=== PATIENT | female | born 1935 | race Caucasian/White ===

== ENCOUNTER 2021-09-04 15:21 | Outpatient (CLI) | payer MEDICARE, SELFPAY ==
[2021-09-04 15:56] LABS: Hematocrit 39.3 % (33.0-51.0); Hemoglobin* 12.7 gm/dL (12.0-16.0); Mean Corpuscular HGB Conc 32 gm/dL (32-36); Mean Corpuscular Hemoglobin 29 pg (26-34); Mean Corpuscular Volume 90 fL (80-100); Platelet Count* 217 K/uL (140-440); Red Blood Count 4.38 m/uL (4.00-5.20); Slide Review Reflex No; White Blood Count* 5.68 K/uL (4.50-11.00)
[2021-09-04 16:09] LABS: Blood Urea Nitrogen* 17 mg/dl (8-26); Carbon Dioxide* 28 mmol/L (20-32); Chloride* 100 mmol/L (98-109); Potassium* 3.7 mmol/L (3.5-4.9); Sodium* 141 mmol/L (138-146)
[2021-09-04 16:10] LABS: Creatinine* 0.6 mg/dl (0.6-1.3); Glucose* 91 mg/dl (60-115); Ionized Calcium* 1.25 mmol/L (1.11-1.33)
== END 2021-09-04 15:22 | disposition home or self-care (01) ==
PROVIDERS: PCP Emergency Medicine; Visit Provider Family Medicine
DX: M54.50 Low back pain, unspecified (principal); Z79.899 Other long term (current) drug therapy; W19.XXXA Unspecified fall, initial encounter
CPT/HCPCS: 80048; 85027

== ENCOUNTER 2021-11-06 14:11 | Outpatient (CLI) | payer MEDICARE, SELFPAY ==
[2021-11-06 14:24] LABS: Chloride* 100 mmol/L (96-114)
[2021-11-06 14:25] LABS: Albumin* 4.1 g/dL (3.3-5.0); Sodium* 138 mmol/L (135-149)
[2021-11-06 14:26] LABS: Potassium* 3.7 mmol/L (3.6-5.1)
[2021-11-06 14:28] LABS: Alkaline Phosphatase* 98 U/L (40-150); Aspartate Amino Transferase* 23 U/L (12-35); Bilirubin Total* 0.8 mg/dL (0.1-1.5); Blood Urea Nitrogen* 17 mg/dL (7-30); Carbon Dioxide* 30 mmol/L (20-32); Cholesterol* 138 mg/dL (90-199); Creatinine* 0.7 mg/dL (0.5-1.5); Estimated Glomerular Filt Rate 85 ml/min; Glucose* 111 mg/dL (60-115); Total Protein* 7.1 g/dL (6.0-8.3)
[2021-11-06 14:29] LABS: Alanine Aminotransferase* 16 U/L (4-35); Calcium* 9.2 mg/dL (8.4-10.6); HDL Cholesterol* 69 mg/dL (>=50); LDL Cholesterol Calculated 57 mg/dL (<100); Triglycerides* 60 mg/dL (40-149)
[2021-11-06 15:17] LABS: Vitamin B12* 735 pg/mL (243-894)
== END 2021-11-06 14:12 | disposition home or self-care (01) ==
PROVIDERS: PCP Emergency Medicine; Visit Provider Emergency Medicine
DX: I10 Essential (primary) hypertension (principal); E11.9 Type 2 diabetes mellitus without complications; E78.5 Hyperlipidemia, unspecified; R32 Unspecified urinary incontinence; F32.9 Major depressive disorder, single episode, unspecified
CPT/HCPCS: 80053; 80061; 82607; 84443

== ENCOUNTER 2021-11-14 14:23 | Outpatient (CLI) | payer MEDICARE, SELFPAY ==
[2021-11-14 21:58] LABS: Microalbumin Urine 6 mg/dL
[2021-11-14 21:59] LABS: Creatinine Urine 99.9 mg/dL; Microalbumin Creatinine Ratio 60 mg/g (0-30)
== END 2021-11-14 14:24 | disposition home or self-care (01) ==
LOC: LKVREF 14:23
PROVIDERS: PCP Emergency Medicine; Visit Provider Emergency Medicine
DX: E11.9 Type 2 diabetes mellitus without complications (principal)
CPT/HCPCS: 82043; 82570

== ENCOUNTER 2022-01-22 13:28 | Emergency (ER) | payer MEDICARE, SELFPAY ==
[2022-01-22 13:36] VITALS: BP 191/96; PULSE 77; RESP 20; TEMP 36.4; O2SAT 97; BMI 37.6
--- NOTE | 2022-01-22 14:13 | CRLHL7_ITS ---
For Patients: As a result of the Cures Act, medical imaging exams and procedure reports are released immediately into your electronic medical record. You may view this report before your referring provider. If you have questions, please contact your health care provider. INDICATION: Pain in the left wrist. TECHNIQUE: Left wrist 3 view. COMPARISON: None. FINDINGS: No acute fracture or dislocation. Advanced degenerative changes of the 1st CMC joint and triscaphe. TFCC chondrocalcinosis. Vascular calcifications. Soft tissue swelling about the wrist. IMPRESSION: Soft tissue swelling about the wrist. No other acute findings. Dictated by Nina Nicolas MD @ 01/22/2022 3:27:00 PM (Electronically Signed)
--- NOTE | 2022-01-22 14:18 | ED_ITS ---
HPI - Extremity Injury (Upper) General Date Seen: 01/22/22 Chief Complaint: Extremity Pain/Injury, Upper Stated Complaint: Infection/swelling in left arm Time Seen by Provider: 01/22/22 13:43 Source: patient and family Mode of arrival: ambulatory Limitations: no limitations History of Present Illness HPI narrative: Patient is a leena 87-year-old female who presents here for evaluation of left wrist pain, the risk became sore and painful this morning when she woke up, she does remember banging it falling on it yesterday. She is brought in by her daughter, for evaluation they were worried about possible cellulitis but absence of fevers chills, or specific portal of entry on her left wrist, she denies falling on her left wrist or any sort injury, she is right-handed. Denies any numbness tingling weakness but any movement of the wrist causes her pain, she has no history of gout in the past, there is a history of some mild memory disturbance MD complaint: injury to: left Onset (ago): minute(s) Associated symptoms: denies other symptoms Related Data Home Medications Medication Instructions Recorded Confirmed coenzyme Q10 300 mg capsule 300 mg PO DAILY 11/01/21 01/22/22 cyanocobalamin (vitamin B-12) 500 500 mcg PO DAILY 11/01/21 01/22/22 mcg tablet vibegron 75 mg tablet (Gemtesa) 75 mg PO QDAY 11/01/21 01/22/22 Previous Rx's Medication Instructions Recorded albuterol sulfate 90 mcg/actuation See Rx Instructions .Route 09/11/21 aerosol inhaler .COMPLEX #36 grams fluoxetine 10 mg capsule 10 mg PO QDAY #90 caps 11/14/21 fluticasone fur. 200 mcg-umeclid 1 inh inhalation Q24H #60 ea 11/14/21 62.5 mcg-vilant 25 mcg inhalat.powder (Trelegy Ellipta) hydrochlorothiazide 25 mg tablet 25 mg PO QAM #90 tabs 11/14/21 insulin glargine 100 unit/mL (3 20 unit (0.2 mL) subcut .HS #15 mL 11/14/21 mL) subcutaneous pen (Lantus Solostar U-100 Insulin) irbesartan 300 mg tablet 150 mg PO BID #45 tabs 11/14/21 donepezil 5 mg tablet 5 mg PO QDAY #90 tabs 12/12/21 Allergies Allergy/AdvReac Type Severity Reaction Status Date / Time amlodipine Allergy Severe Rash Verified 01/22/22 13:42 azithromycin Allergy Severe Limb pain, Verified 01/22/22 13:42 diarrhea furosemide Allergy Severe Hives Verified 01/22/22 13:42 insulin detemir Allergy Severe Hives Verified 01/22/22 13:42 metoprolol Allergy Severe Shortness Verified 01/22/22 13:42 of breath, chest pain, low pulse rate sitagliptin Allergy Severe Lost some Verified 01/22/22 13:42 sight in left eye exenatide Allergy Intermediate Sore Verified 01/22/22 13:42 throat, diarrhea, cough, headache levofloxacin Allergy Intermediate Bruising Verified 01/22/22 13:42 clopidogrel Allergy Mild Edema Verified 01/22/22 13:42 losartan Allergy Unknown Heart Verified 01/22/22 13:42 palpitations, shortness of breath penicillin V Allergy Unknown Verified 01/22/22 13:42 lisinopril AdvReac Severe Headaches, Verified 01/22/22 13:42 heart palpitations, muscle aches pioglitazone AdvReac Severe Hip and Verified 01/22/22 13:42 arm pain simvastatin AdvReac Unknown Fatigued Verified 01/22/22 13:42 Review of Systems Status of ROS: Reports: 6 or more systems reviewed and unremarkable except as noted in History and below PFSH PFS Medical History Depression Diabetes mellitus Diabetes mellitus, controlled Edema Encounter for medication review Encounter for screening for severe acute respiratory syndrome coronavirus 2 (SARS-CoV-2) infection Hyperlipidemia Thalamic stroke Unintentional weight loss Surgical History History of cholecystectomy (09/26/11) History of colonoscopy History of partial surgical removal of colon (09/26/11) 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 (09/26/11) Status post total replacement of right shoulder Family History Mother Family history of stroke or transient ischemic attack in mother Social History Narrative: advance directive in chart- 01/25/15 former cigarette smoker Smoking Status: Former smoker Do you use any of these nicotine containing products: None How often do you have a drink containing alcohol: never AUDIT-C Alcohol total score: 0 Non-prescribed substance use: denies use Little interest or pleasure in doing things: several days Feeling down, depressed, or hopeless: more than half the days Exam Narrative: Exam Narrative: On examination the patient is seen in room 1 in a wheelchair she is in no apparent distress there is bruising noted over the dorsum and the radial area of left wrist. She has tenderness with any sort of motion it is also swollen, and there seems to be ecchymosis, do not detect any warmth, suggested of cellulitis, or any portal of entry. L both moves for full range of motion, supination pronation flexion extension and she is able to move her fingers. Although it does cause her some discomfort. Const: Vital Signs, click to edit/add: Vital Signs - 24 hr 01/22/22 13:36 Temperature 97.6 F Pulse Rate [Right Pulse Oximeter] 77 Respiratory Rate 20 Blood Pressure [Ri ght Upper Arm] 191/96 H Pulse Oximetry 97 Oxygen Delivery Me thod Room Air Documenting provider has reviewed patient's vital signs: yes Course Vital Signs Vital signs: Initial Vital Signs Temperature 97.6 F 01/22/22 13:36 Temperature Source Temporal Artery Scan 01/22/22 13:36 Pulse Rate 77 01/22/22 13:36 Pulse Rhythm 01/22/22 13:36 Respiratory Rate 20 01/22/22 13:36 Blood Pressure 191/96 H 01/22/22 13:36 Blood Pressure Mean 127 01/22/22 13:36 Blood Pressure Position Sitting 01/22/22 13:36 Pulse Oximetry 97 01/22/22 13:36 Oxygen Delivery Method 01/22/22 13:36 Vital Signs Temperature 97.6 F 01/22/22 13:36 Pulse Rate 77 01/22/22 13:36 Respiratory Rate 20 01/22/22 13:36 Blood Pressure 191/96 H 01/22/22 13:36 Pulse Oximetry 97 01/22/22 13:36 Oxygen Delivery Method 01/22/22 13:36 Temperature 97.6 F 01/22/22 13:36 Pulse Rate 77 01/22/22 13:36 Respiratory Rate 20 01/22/22 13:36 Blood Pressure 191/96 H 01/22/22 13:36 Pulse Oximetry 97 01/22/22 13:36 Oxygen Delivery Method 01/22/22 13:36 MDM - Extremity Injury (Upper) MDM Narrative Medical decision making narrative: Consideration of multiple diagnosis including count, infection, fall hematoma, fracture, I suspect that this is secondary to an injury, but could not rule out other possibilities given her normal white count absence of fever, I think this is more likely secondary to injury. We will put her in a wrist splint, and I have given explicit instructions to the family, bring her back if things worsen. Medical Records Attestation: I reviewed the patient's medical records. Lab Data Attestation: I reviewed the patient's lab results. Labs: Lab Results 01/22/22 01/22/22 Range/Units 14:38 14:38 WBC 7.32 (4.50-11.00) K/uL RBC 4.60 (4.00-5.20) m/uL Hgb 14.0 (12.0-16.0) gm/dL Hct 43.0 (33.0-51.0) % MCV 94 (80-100) fL MCH 30 (26-34) pg MCHC 33 (32-36) gm/dL RDW Coeff of Brock 14.9 (11.5-15.5) % Plt Count 224 (140-440) K/uL Neut % (Auto) 76.1 H (42.0-72.0) % Lymph % (Auto) 13.4 L (20-44) % [place] % (Auto) 8.7 (0.0-11.0) % Eos % (Auto) 1.0 (0.0-7.0) % Baso % (Auto) 0.1 (0.0-3.0) % Neut # (Auto) 5.60 (1.7-7.0) K/uL Lymph # (Auto) 1.00 (0.90-2.90) K/uL [place] # (Auto) 0.60 (0.00-0.90) K/UL Eos # (Auto) 0.10 (0.00-0.50) K/uL Baso # (Auto) 0.00 (0.00-0.30) K/uL Abs Immat Gran (auto) 0.10 (0.00-0.30) K/uL Neutrophils % (Manual) Not Reportable Lymphocytes % (Manual) Not Reportable Monocytes % (Manual) Not Reportable Imm/Tot Granulo (auto) 0.7 % Abs Neuts (Manual) Not Reportable Lymphocytes # (Manual) Not Reportable Monocytes # (Manual) Not Reportable Diff Slide Review Req Man Differential (Acceptable) Sodium 139 (135-149) mmol/L Potassium 4.4 (3.6-5.1) mmol/L Chloride 99 (96-114) mmol/L Carbon Dioxide 33 H (20-32) mmol/L BUN 12 (7-30) mg/dL Creatinine 0.5 (0.5-1.5) mg/dL Estimated Creat Clear 39.27 Estimated GFR 91 ml/min Glucose 111 (60-115) mg/dL Calcium 9.5 (8.4-10.6) mg/dL C-Reactive Protein 1.3 H (0.5-1.0) mg/dL Imaging Data Wrist x-ray: Attestation: I have reviewed the pertinent imaging results. My impression: Wrist x-ray shows osteopenia no could fracture Radiologist's impression: No acute fracture Discharge Plan Discharge Clinical Impression: Left wrist pain Patient Disposition: Home w/ Parent or Adult Condition: Stable Instructions: Arm Pain (ED) Additional Instructions: As I discussed with you this is most consistent with a contusion, this could be early cellulitis in you need to be cognizant of this if the redness worsens in comes up your arm, or develops a fever chills. Then please come back. I would use acetaminophen 1 g 3 times a day use the splint, if this is gout, it should slowly improve, x-rays were negative for fracture which is good. Prescriptions: No Action fluoxetine 10 mg capsule 10 mg PO QDAY Qty: 90 1RF hydrochlorothiazide 25 mg tablet 25 mg PO QAM Qty: 90 1RF irbesartan 300 mg tablet 150 mg PO BID Qty: 45 1RF insulin glargine [Lantus Solostar U-100 Insulin] 100 unit/mL (3 mL) insulin pen 20 unit subcut .HS Qty: 15 6RF Trelegy Ellipta 200-62.5-25 mcg blister with device 1 inh inhalation Q24H Qty: 60 2RF coenzyme Q10 300 mg capsule 300 mg PO DAILY cyanocobalamin (vitamin B-12) 500 mcg tablet 500 mcg PO DAILY Gemtesa 75 mg tablet 75 mg PO QDAY albuterol sulfate 90 mcg/actuation HFA aerosol inhaler See Rx Instructions .ROUTE .COMPLEX Qty: 36 2RF Dose Instruction: INHALE 2 PUFFS BY MOUTH EVERY 4 HOURS NEEDED FOR WHEEZING AND DIFFICULT BREATHING Rx Instructions: INHALE 2 PUFFS BY MOUTH EVERY 4 HOURS NEEDED FOR WHEEZING AND DIFFICULT BREATHING donepezil 5 mg tablet 5 mg PO QDAY Qty: 90 3RF Follow Up/Referrals: Darlene Mendoza MD [Primary Care Provider] - Stand Alone Forms: [employer] Info Instructions
[2022-01-22] MEDS: ACETAMINOPHEN 500 MG TABLET 1000 MG PO (14:37)
[2022-01-22 14:43] LABS: Mean Corpuscular HGB Conc 33 gm/dL (32-36); Mean Corpuscular Hemoglobin 30 pg (26-34); Mean Corpuscular Volume 94 fL (80-100); Platelet Count* 224 K/uL (140-440); RDW Coefficient of Variation % 14.9 % (11.5-15.5); White Blood Count* 7.32 K/uL (4.50-11.00)
[2022-01-22 14:52] LABS: Slide Review Reflex Yes
[2022-01-22 15:09] LABS: Chloride* 99 mmol/L (96-114); Potassium* 4.4 mmol/L (3.6-5.1); Sodium* 139 mmol/L (135-149)
[2022-01-22 15:12] LABS: Creatinine* 0.5 mg/dL (0.5-1.5); Est. Creatinine Clearance* 39.27; Estimated Glomerular Filt Rate 91 ml/min
[2022-01-22 15:13] LABS: Blood Urea Nitrogen* 12 mg/dL (7-30); Calcium* 9.5 mg/dL (8.4-10.6); Carbon Dioxide* 33 mmol/L (20-32); Glucose* 111 mg/dL (60-115)
[2022-01-22 15:15] LABS: C Reactive Protein* 1.3 mg/dL (0.5-1.0)
[2022-01-22 15:56] LABS: Slide Review Req Man Differential (Acceptable)
[2022-01-22 15:57] LABS: Neutrophils Percent Auto 76.1 % (42.0-72.0); Total Cells Counted 100
[2022-01-22 15:58] LABS: Basophils Percent Auto 0.1 % (0.0-3.0); Immature Granulocytes Pct Auto 0.7 %; Lymphocytes Percent Auto 13.4 % (20-44); Monocytes Percent Auto 8.7 % (0.0-11.0)
== END 2022-01-22 16:28 | disposition home or self-care (01) ==
PROVIDERS: Emergency Provider Family Medicine; PCP Emergency Medicine
DX: M25.532 Pain in left wrist (principal)
CPT/HCPCS: 29125; 36415; 73110; 80048; 85007; 85025; 86140; 99282; 99283; 99284; A9270

== ENCOUNTER 2022-06-26 14:13 | Outpatient (CLI) | payer MEDICARE, SELFPAY | END 2022-06-26 14:14 | disposition home or self-care (01) | LOC: LKVREF 14:14 | PROVIDERS: PCP Emergency Medicine; Visit Provider Emergency Medicine | DX: R63.4 Abnormal weight loss (principal); E11.9 Type 2 diabetes mellitus without complications; E78.5 Hyperlipidemia, unspecified | CPT/HCPCS: 84443 ==

== ENCOUNTER 2022-07-05 09:34 | Outpatient (CLI) | payer MEDICARE, SELFPAY ==
--- NOTE | 2022-07-05 10:00 | CRLHL7_ITS ---
For Patients: As a result of the 21st Century Cures Act, medical imaging exams and procedure reports are released immediately into your electronic medical record. You may view this report before your referring provider. If you have questions, please contact your health care provider. Indication: UNINTENTIONAL WEIGHT LOSS. 100#S OVER 8 MONTHS BREAST CANCER Technique: Postcontrast CT chest, abdomen and pelvis. 96 cc Isovue 370 intravenous contrast. Oral water. Please note that all CT scans at this facility use dose modulation, iterative reconstruction, and/or weight-based dosing when appropriate to reduce radiation dose to as low as reasonably achievable. Comparison: 04/06/2021, 09/16/2019 Findings: In the chest, there is a stable nodular like density within the left lung base, series 3, image 71. Benign calcified nodule also within the left lower lobe. Dependent scarring, mild. No pleural effusion. No new nodule. Stable low-density colloid cyst within the lower pole of the right thyroid lobe. Similar mildly prominent precarinal lymph node and incidental pericardial recess. Calcifications within coronary arteries. Ectasia of the thoracic aorta. Similar subcentimeter bilateral hilar lymph nodes. No enlarged axillary lymph nodes. No infiltrate or edema. No pneumothorax. Bilateral shoulder replacement hardware. Chronic changes to the manubrium. Multilevel degenerative disc disease. In the abdomen, there is no suspicious intrahepatic mass. The gallbladder is absent. No biliary obstruction. No evidence of common bile duct stone. Atrophy of the pancreas without lesion. Calcified splenic granulomas. Stable bilateral adrenal adenomas. Atherosclerotic disease. No enlarged lymph nodes. No bowel obstruction. No hiatal hernia. Simple cyst lower pole left kidney. Right kidney unremarkable. In the pelvis, increased stool noted within the distal colon along with sigmoid diverticulosis. Moderate stool present elsewhere throughout the colon. No inflammatory changes. No free air or free fluid. No abscess. The bladder is normal. Postop changes to the midline of the lower abdominal wall. No pelvic mass. Interval development of a compression fracture of L1. There is bony canal stenosis associated with this fracture. Impression: New moderately severe compression fracture of L1 with posterior cortex involvement such that there is some degree of canal stenosis. Extensive atherosclerotic disease without aneurysm or dissection. No evidence of mesenteric ischemia. Excess stool in the colon particularly within the sigmoid colon and rectum compatible with chronic constipation. Chronic sigmoid diverticulosis without diverticulitis or bowel obstruction. No evidence of malignancy. Please note that all CT scans at this facility use dose modulation, iterative reconstruction, and/or weight-based dosing when appropriate to reduce radiation dose to as low as reasonably achievable. Dictated by Abram Fernandez MD @ 07/08/2022 9:56:34 AM (Electronically Signed)
[2022-07-05 10:13] LABS: Creatinine* 0.6 mg/dL (0.5-1.5); Estimated Glomerular Filt Rate 87 ml/min
== END 2022-07-05 09:35 | disposition home or self-care (01) ==
LOC: CT 09:35
PROVIDERS: PCP Emergency Medicine; Visit Provider Emergency Medicine
DX: R63.4 Abnormal weight loss (principal); M48.56XA Collapsed vertebra, not elsewhere classified, lumbar region, initial encounter for fracture; K59.00 Constipation, unspecified
CPT/HCPCS: 36415; 71260; 74177; 82565; Q9967

== ENCOUNTER 2022-09-25 12:40 | Outpatient (CLI) | payer MEDICARE, SELFPAY ==
--- NOTE | 2022-09-25 13:00 | CRLHL7_ITS ---
For Patients: As a result of the Century Cures Act, medical imaging exams and procedure reports are released immediately into your electronic medical record. You may view this report before your referring provider. If you have questions, please contact your health care provider. DXA BONE MINERAL DENSITY STUDY Current height (in): 65.0. Weight (lb): 190.0. Menopause age: 41. Ethnicity: White. 1. Have you had a previous hip or vertebral fracture? No. 2. Have you had any fractures during your adult life which did not result from significant trauma (e.g., auto accident)? No. 3. Did either of your parents have a hip fracture? No. 4. Do you smoke? No. 5. Have you ever taken Glucocorticoids? No. 6. Do you have rheumatoid arthritis? No. 7. Do you have secondary osteoporosis? No. 8. Do you drink 3 or more alcoholic drinks per day? No. 9. Are you being treated for osteoporosis? No. 10. Have you ever taken any of the following medications: Actonel, Evista, Fosamax, Miacalcin, Reclast, Boniva, Forteo, HRT (i.e. estrogen/hormone therapy), Protelos, Prolia, Vitamin D, Calcium, other ??? please specify. ANSWER: Yes, vitamin D, calcium. 11. Do you have any of the following medical conditions: Anorexia or bulimia, asthma or emphysema, end stage renal disease, hyperparathyroidism, any seizure disorders, cancer, inflammatory bowel diseases, hysterectomy, other ??? please specify. ANSWER: Yes, cancer, hysterectomy. 12. What was your maximum height (inches)? 70. 13. Do you perform weight bearing exercise regularly? No. 14. Do you regularly consume dairy products? Yes. 15. Do you drink caffeinated beverages? Yes. 16. At what age did your period start? 18. 17. Are you premenopausal? No. 18. How many full term pregnancies have you had? 1. 19. Have you ever missed your period for more than 6 months in a row (not including or menopause)? No. TECHNIQUE: Bone mineral density study was performed using the [employer]. FINDINGS: The results of the study expressed as bone mineral density (BMD) are as follows: Lumbar spine L1 to L4: BMD: 1.371 g/cm2. T-score: 2.9. Z-score: 5.8. Neck Left: BMD: 0.825 g/cm2. T-score: -0.2. Z-score: 2.3. Right: BMD: 0.873 g/cm2. T-score: 0.2. Z-score: 2.7. Total Left: BMD: 0.926 g/cm2. T-score: -0.1. Z-score: 2.2. Right: BMD: 0.976 g/cm2. T-score: 0.3. Z-score: 2.6. IMPRESSION: Normal bone density. *Comparison exams done prior to 08/2019 were performed on different unit, [employer]. COMPARISON: Compared with scan of 09/22/2017, the bone mineral density has increased by 11.5 percent at the spine and increased by 0.4 percent at the hip. Compared with scan of 05/26/2014, the bone mineral density has decreased by 7.4 percent at the spine and increased by 1.9 percent at the hip. ARSENIO BEST MD Diagnostic/Nuclear Medicine Radiologist [email or web address] NIOCLAS/bhe be/Dictated by: Arsenio Best MD @ 09/25/2022 3:21:00 PM (Electronically Signed)
== END 2022-09-25 12:41 | disposition home or self-care (01) ==
LOC: RAD 12:42
PROVIDERS: PCP Emergency Medicine; Visit Provider Emergency Medicine
DX: Z79.51 Long term (current) use of inhaled steroids (principal); J44.9 Chronic obstructive pulmonary disease, unspecified; Z78.0 Asymptomatic menopausal state
CPT/HCPCS: 77080

== ENCOUNTER 2023-03-06 08:58 | Outpatient (REF) | payer MEDICARE, SELFPAY | END 2023-03-06 08:59 | disposition home or self-care (01) | LOC: NFLDREF 08:58 | PROVIDERS: PCP Emergency Medicine; Referring Provider Emergency Medicine; Visit Provider Emergency Medicine | DX: E78.5 Hyperlipidemia, unspecified (principal); E11.9 Type 2 diabetes mellitus without complications; I10 Essential (primary) hypertension; D64.9 Anemia, unspecified | CPT/HCPCS: 80053; 80061; 82043; 82570 ==

== ENCOUNTER 2023-03-13 14:27 | Outpatient (CLI) | payer MEDICARE, SELFPAY | END 2023-03-13 14:28 | disposition home or self-care (01) | PROVIDERS: PCP Emergency Medicine; Visit Provider Emergency Medicine | DX: D64.9 Anemia, unspecified (principal); I10 Essential (primary) hypertension; E11.9 Type 2 diabetes mellitus without complications; E78.5 Hyperlipidemia, unspecified; R63.4 Abnormal weight loss | CPT/HCPCS: 82607; 82728; 83540; 83550; 84466 ==

== ENCOUNTER 2023-10-23 15:23 | Outpatient (CLI) | payer MEDICARE, SELFPAY | END 2023-10-23 15:24 | disposition home or self-care (01) | LOC: LKVREF 15:23 | PROVIDERS: PCP Emergency Medicine; Visit Provider Emergency Medicine | DX: L03.032 Cellulitis of left toe (principal) | CPT/HCPCS: 87070; 87185 ==

== ENCOUNTER 2023-11-20 11:14 | Outpatient (CLI) | payer MEDICARE, SELFPAY | END 2023-11-20 11:15 | disposition home or self-care (01) | PROVIDERS: PCP Emergency Medicine; Visit Provider Emergency Medicine | DX: D50.9 Iron deficiency anemia, unspecified (principal); I10 Essential (primary) hypertension; E11.9 Type 2 diabetes mellitus without complications; R79.89 Other specified abnormal findings of blood chemistry; F01.50 Vascular dementia, unspecified severity, without behavioral disturbance, psychotic disturbance, mood disturbance, and anxiety; Z79.4 Long term (current) use of insulin | CPT/HCPCS: 80053; 82043; 82570; 82607; 82728; 84443 ==

== ENCOUNTER 2023-12-08 10:49 | Emergency (ER) | payer MEDICARE, SELFPAY ==
[2023-12-08] VITALS (13 sets, daily range): BP systolic 111–154; BP diastolic 81–111; PULSE 72–95; RESP 18; TEMP 36.8–37.1; O2SAT 89–97; BMI 35.5
--- NOTE | 2023-12-08 12:34 | CRLHL7_ITS ---
For Patients: As a result of the Century Cures Act, medical imaging exams and procedure reports are released immediately into your electronic medical record. You may view this report before your referring provider. If you have questions, please contact your health care provider. INDICATION: Fall TECHNIQUE: CT cervical spine without contrast. COMPARISON: None. FINDINGS: Vertebrae: Alignment is normal. There are no fractures or suspicious bony lesions. Discs and facet joints: There are diffuse degenerative changes in the disc spaces and facet joints. No areas of severe central or neural foraminal stenosis. Fusion of the left C4-C5 facet joints. Extraspinal findings: Paraspinous soft tissues are unremarkable. IMPRESSION: 1. No sign of acute injury. 2. Multilevel degenerative spondylosis. Please note that all CT scans at this facility use dose modulation, iterative reconstruction, and/or weight-based dosing when appropriate to reduce radiation dose to as low as reasonably achievable. Dictated by Meg Mendoza MD @ 12/08/2023 1:21:35 PM (Electronically Signed)
--- NOTE | 2023-12-08 13:27 | ED_ITS ---
HPI - General Adult General Date Seen: 12/08/23 Chief complaint: Weakness Stated complaint: Weakness, RT sided arm pain Time Seen by Provider: 12/08/23 12:26 Source: patient, RN notes reviewed and old records reviewed Mode of arrival: EMS Limitations: other History of Present Illness HPI narrative: Patient is an 88-year-old woman who lives in assisted living, came in by ambulance today because of neck and shoulder pain which she says started at 4:00 a.m. in the morning. She does have a history of falls occasionally, she does not feel that she has had any recent falls although she is not entirely reliable historian. She notes pain with movement of her neck, pain in the upper back and shoulder area. She has not noted any swelling or redness in the arm, she has not had chest pain, she has not had difficulty breathing, fevers, cough. No vomiting or diarrhea. No weakness or numbness. Related Data Home Medications ?Medication ?Instructions ?Recorded ?Confirmed coenzyme Q10 300 mg capsule 300 mg PO DAILY 11/01/21 12/05/23 cyanocobalamin (vitamin B-12) 500 500 mcg PO DAILY 11/01/21 12/05/23 mcg tablet aspirin 81 mg tablet,delayed 81 mg PO QDAY 02/05/22 12/05/23 release albuterol sulfate 90 mcg/actuation See Rx Instructions .Route 06/26/22 12/05/23 aerosol inhaler .COMPLEX PRN calcium carbonate 1,000 mg PO QDAY 08/28/22 12/05/23 cholecalciferol (vitamin D3) 25 25 mcg PO QDAY 08/28/22 12/05/23 mcg (1,000 unit) capsule donepezil 10 mg tablet 10 mg PO QDAY 11/20/23 12/05/23 iron,carbonyl 65 mg-vitamin C 125 1 tab PO QDAY 11/20/23 12/05/23 mg tablet,delayed release (Vitron-C) Previous Rx's ?Medication ?Instructions ?Recorded fluticasone fur. 200 mcg-umeclid 1 inh inhalation Q24H #60 ea 11/14/21 62.5 mcg-vilant 25 mcg inhalat.powder (Trelegy Ellipta) irbesartan 300 mg tablet 150 mg (1/2 x 300 mg) PO BID #45 11/14/21 tabs donepezil 5 mg tablet 5 mg PO QDAY #90 tabs 12/12/21 fluoxetine 10 mg capsule 10 mg PO QDAY #90 caps 09/03/22 hydrochlorothiazide 25 mg tablet 25 mg PO QAM #90 tabs 09/03/22 acetaminophen 500 mg capsule 1,000 mg (2 x 500 mg) PO Q4-6H PRN 02/13/23 pain #30 caps quetiapine 25 mg tablet 25 mg PO QHS #30 tabs 07/18/23 oxybutynin chloride 10 mg 10 mg PO QDAY #30 tabs 07/24/23 tablet,extended release 24 hr iron,carbonyl 65 mg-vitamin C 125 1 tab PO .qod #90 tabs 08/21/23 mg tablet,delayed release (Vitron-C) cefadroxil 500 mg capsule 500 mg PO BID #20 caps 10/23/23 insulin glargine 100 unit/mL (3 10 unit (0.1 mL) subcut .HS #15 mL 11/20/23 mL) subcutaneous pen (Lantus Solostar U-100 Insulin) Allergies Allergy/AdvReac Type Severity Reaction Status Date / Time amlodipine Allergy Severe Rash Verified 12/08/23 11:00 azithromycin Allergy Severe Limb pain, Verified 12/08/23 11:00 diarrhea furosemide Allergy Severe Hives Verified 12/08/23 11:00 metoprolol Allergy Severe Shortness Verified 12/08/23 11:00 of breath, chest pain, low pulse rate sitagliptin Allergy Severe Lost some Verified 12/08/23 11:00 sight in left eye exenatide Allergy Intermediate Sore Verified 12/08/23 11:00 throat, diarrhea, cough, headache levofloxacin Allergy Intermediate Bruising Verified 12/08/23 11:00 clopidogrel Allergy Mild Edema Verified 12/08/23 11:00 losartan Allergy Unknown Heart Verified 12/08/23 11:00 palpitations, shortness of breath penicillin V Allergy Unknown Verified 12/08/23 11:00 lisinopril AdvReac Severe Headaches, Verified 12/08/23 11:00 heart palpitations, muscle aches pioglitazone AdvReac Severe Hip and Verified 12/08/23 11:00 arm pain carvedilol AdvReac Mild Vomiting Verified 12/08/23 11:00 simvastatin AdvReac Unknown Fatigued Verified 12/08/23 11:00 Review of Systems Status of ROS: Reports: 6 or more systems reviewed and unremarkable except as noted in History and below [facility] Medical History Cellulitis, toe ?L03.039 - Cellulitis of unspecified toe (ICD-10) Falls ?R29.6 - Repeated falls (ICD-10) Pain in toe ?M79.676 - Pain in unspecified toe(s) (ICD-10) Iron deficiency anemia ?D50.9 - Iron deficiency anemia, unspecified (ICD-10) Dementia ?F03.90 - Unspecified dementia, unspecified severity, without behavioral disturbance, psychotic disturbance, mood disturbance, and anxiety (ICD-10) Anemia ?D64.9 - Anemia, unspecified (ICD-10) Wrist pain ?M25.539 - Pain in unspecified wrist (ICD-10) POLST (Physician Orders for Life-Sustaining Treatment) ?Z78.9 - Other specified health status (ICD-10) Visit for review of DEXA scan ?Z71.2 - Person consulting for explanation of examination or test findings (ICD-10) Rib fracture ?S22.39XA - Fracture of one rib, unspecified side, initial encounter for closed fracture (ICD-10) Atherosclerotic heart disease ?I25.10 - Atherosclerotic heart disease of [place] coronary artery without angina pectoris (ICD-10) Compression fracture Hearing loss ?H91.90 - Unspecified hearing loss, unspecified ear (ICD-10) 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 or stenosis of small artery (ICD-10) Diabetes mellitus, controlled ?E11.9 - Type 2 diabetes mellitus without complications (ICD-10) Encounter for medication review ?Z79.899 - Other correction (current) drug therapy (ICD-10) Unintentional weight loss ?R63.4 - Abnormal weight loss (ICD-10) Hyperlipidemia ?E78.5 - Hyperlipidemia, unspecified (ICD-10) Depression ?F32.A - Depression, unspecified (ICD-10) Encounter for screening for severe acute respiratory syndrome coronavirus 2 (SARS-CoV-2) infection ?Z11.52 - Encounter for screening for COVID-19 (ICD-10) Edema ?R60.9 - Edema, unspecified (ICD-10) Diabetes mellitus ?E11.9 - Type 2 diabetes mellitus without complications (ICD-10) Surgical History 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 - Presence of right artificial shoulder joint (ICD-10) 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 (09/26/11) ?Z90.710 - Acquired absence of both cervix and uterus (ICD-10) ?Z90.722 - Acquired absence of ovaries, bilateral (ICD-10) ?Z90.79 - Acquired absence of other genital organ(s) (ICD-10) Status post reverse total replacement of left shoulder ?Z96.612 - Presence of left artificial shoulder joint (ICD-10) 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) ?Z96.651 - Presence of right artificial knee joint (ICD-10) History of partial surgical removal of colon (09/26/11) ?Z90.49 - Acquired absence of other specified parts of digestive tract (ICD- 10) History of colonoscopy ?Z98.890 - Other specified postprocedural states (ICD-10) History of cholecystectomy (09/26/11) ?Z90.49 - Acquired absence of other specified parts of digestive tract (ICD- 10) Family History Mother Family history of stroke or transient ischemic attack in mother Social History Narrative: advance directive in chart- 01/25/15 former cigarette smoker Smoking Status: Former smoker Do you use any of these nicotine containing products: None Second hand tobacco smoke exposure: No How often do you have a drink containing alcohol: 2-4 times a month AUDIT-C Alcohol total score: 2 Non-prescribed substance use: denies use Little interest or pleasure in doing things: more than half the days Feeling down, depressed, or hopeless: several days Exam Narrative: Exam Narrative: Vital signs as noted above. In general, an alert, nontoxic elderly woman. She is resting comfortably in bed. Head: Normocephalic, atraumatic. Eyes: Pupils are equal reactive. Extraocular movements are full. Conjunctivae are normal. ENT: Mucous membranes are moist. Throat is normal. Neck: Supple without lymphadenopathy. She does not have any posterior midline tenderness, no visible cervical trauma. Reproducible tenderness over the right trapezius and rhomboids. Left nontender. Heart: Irregularly irregular, rate controlled. No significant murmur. Lungs: Clear bilaterally. No increased work of breathing, crackles or wheezes. Abdomen: Soft and nontender. No organomegaly. Extremities: The right arm is normal in appearance, in no visible trauma, swelling, bruising deformity or erythema. She has good range of motion of the shoulder with assistance. No effusion or erythema in the joint. Neurologic: Patient is alert, she is oriented to person and place. Speech is fluent. She moves all extremities to command. Affect: Normal. Skin: Warm and dry. Well perfused. Const: Vital Signs, click to edit/add: Vital Signs - 24 hr 12/08/23 10:53 12/08/23 11:14 12/08/23 11:32 Temperature 98.7 F Pulse Rate Pulse Rate [Right Pulse Oximeter] 95 Respiratory Rate 18 Blood Pressure 127/93 H 111/98 H Blood Pressure [Ri ght Upper Arm] 139/91 H Pulse Oximetry 93 Oxygen Delivery Me thod Room Air 12/08/23 12:02 12/08/23 12:27 12/08/23 12:28 Temperature Pulse Rate 79 88 Pulse Rate [Right Pulse Oximeter] Respiratory Rate Blood Pressure 132/111 H 154/109 H Blood Pressure [Ri ght Upper Arm] Pulse Oximetry 94 Oxygen Delivery Me thod 12/08/23 12:30 12/08/23 12:30 12/08/23 12:32 Temperature 98.3 F Pulse Rate 82 86 Pulse Rate [Right Pulse Oximeter] 89 Respiratory Rate 18 Blood Pressure 137/103 H Blood Pressure [Ri ght Upper Arm] 144/85 H Pulse Oximetry 94 89 Oxygen Delivery Me thod Room Air 12/08/23 12:45 12/08/23 13:02 12/08/23 13:05 Temperature Pulse Rate 72 75 84 Pulse Rate [Right Pulse Oximeter] Respiratory Rate Blood Pressure 144/85 H Blood Pressure [Ri ght Upper Arm] Pulse Oximetry 95 95 95 Oxygen Delivery Me thod 12/08/23 13:15 12/08/23 14:35 Temperature Pulse Rate 83 Pulse Rate [Right Pulse Oximeter] Respiratory Rate Blood Pressure 135/81 Blood Pressure [Ri ght Upper Arm] Pulse Oximetry 97 Oxygen Delivery Me thod Documenting provider has reviewed patient's vital signs: yes Course Course ED Course: Patient was noted to have an irregular heart rate, EKG confirms atrial fibrillation with a controlled rate of 82 beats per minute. No acute ST segment changes. Looking through her records, I do not see a prior diagnosis of atrial fibrillation. It looks as if at 1 point she was anticoagulated secondary to pulmonary embolism, but she is no longer anticoagulated. It does sound as if she has fairly regular falls. She presents today with fairly musculoskeletal seeming pain in her trapezius and rhomboids. However, given her age, history of falls and that she is an unreliable historian, did elect to do a CT scan to rule out any bony injury. Likewise, will check electrolytes, troponin, CBC magnesium given new diagnosis of atrial fibrillation. She seems to be tolerating the atrial fibrillation without difficulty, rate is controlled, blood pressure is normal, lungs are clear. CT of the cervical spine read as followed by Radiology:atient: JANAY PADGETT Facility: [facility] Site . Site : [id number] Study: CT-Spine Cervical W/O-12/08/2023 1:02:53 PM Ordering Physician: Adam Berry Final Report: INDICATION: Fall TECHNIQUE: CT cervical spine without contrast. COMPARISON: None. FINDINGS: Vertebrae: Alignment is normal. There are no fractures or suspicious bony lesions. Discs and facet joints: There are diffuse degenerative changes in the disc spaces and facet joints. No areas of severe central or neural foraminal stenosis. Fusion of the left C4-C5 facet joints. Extraspinal findings: Paraspinous soft tissues are unremarkable. IMPRESSION: 1. No sign of acute injury. 2. Multilevel degenerative spondylosis. Please note that all CT scans at this facility use dose modulation, iterative reconstruction, and/or weight-based dosing when appropriate to reduce radiation dose to as low as reasonably achievable. Dictated by Meg Mendoza MD @ 12/08/2023 1:21:35 PM Daughter arrived, she provides additional history that this pain apparently is not new, her mother has suffered from that for a couple of years now. She says that she called 911 because the management at her assisted living has changed over, she said it is essentially impossible to get a hold of anybody anymore, and no one there really seems to know what is going on on any given day. Because of this, she decided she just wanted to have the patient evaluated in the ER. We discussed the diagnosis of atrial fibrillation, risks and benefits of anticoagulation. They will discuss that further with Dr. Butts. Labs are overall pretty unremarkable. White blood cell count hemoglobin are normal, electrolytes are normal with the exception of a potassium of 3.5. Magnesium is 2, LFTs are normal, BNP is mildly elevated at 14 30 but she does not at this time show any signs of congestive heart failure otherwise. TSH was normal. She had some Tylenol here, is feeling improved and is eager to go home. Daughter is comfortable with that. They will return as needed for new symptoms. Primary care follow-up in the coming week as discussed. Vital Signs Vital signs: Initial Vital Signs Temperature 98.7 F 12/08/23 10:53 Temperature Source Temporal Artery Scan 12/08/23 10:53 Pulse Rate 95 12/08/23 10:53 Pulse Rhythm Regular 12/08/23 10:53 Respiratory Rate 18 12/08/23 10:53 Blood Pressure 139/91 H 12/08/23 10:53 Blood Pressure Mean 107 H 12/08/23 10:53 Blood Pressure Position Supine 12/08/23 10:53 Pulse Oximetry 93 12/08/23 10:53 Oxygen Delivery Method Room Air 12/08/23 10:53 Vital Signs Temperature 98.7 F 12/08/23 10:53 Pulse Rate 95 12/08/23 10:53 Respiratory Rate 18 12/08/23 10:53 Blood Pressure 139/91 H 12/08/23 10:53 Pulse Oximetry 93 12/08/23 10:53 Oxygen Delivery Method Room Air 12/08/23 10:53 Temperature 98.3 F 12/08/23 12:30 Pulse Rate 83 12/08/23 13:15 Respiratory Rate 18 12/08/23 12:30 Blood Pressure 135/81 12/08/23 14:35 Pulse Oximetry 97 12/08/23 13:15 Oxygen Delivery Method Room Air 12/08/23 12:30 Medical Decision Making Lab Data Labs: Lab Results 12/08/23 Range/Units 13:17 WBC 7.61 (4.50-11.00) K/uL RBC 4.25 (4.00-5.20) m/uL Hgb 13.1 (12.0-16.0) gm/dL Hct 41.6 (33.0-51.0) % MCV 98 (80-100) fL MCH 31 (26-34) pg MCHC 32 (32-36) gm/dL RDW Coeff of Brock 14.3 (11.5-15.5) % Plt Count 189 (140-440) K/uL Neut % (Auto) 78.0 H (42.0-72.0) % Lymph % (Auto) 9.9 L (20-44) % Banner % (Auto) 10.8 (0.0-11.0) % Eos % (Auto) 0.9 (0.0-7.0) % Baso % (Auto) 0.3 (0.0-3.0) % Neut # (Auto) 5.90 (1.7-7.0) K/uL Lymph # (Auto) 0.80 L (0.90-2.90) K/uL Banner # (Auto) 0.80 (0.00-0.90) K/UL Eos # (Auto) 0.07 (0.00-0.50) K/uL Baso # (Auto) 0.02 (0.00-0.30) K/uL Abs Immat Gran (auto) 0.01 (0.00-0.30) K/uL Imm/Tot Granulo (auto) 0.1 % Sodium 137 (135-149) mmol/L Potassium 3.5 L (3.6-5.1) mmol/L Chloride 100 (96-114) mmol/L Carbon Dioxide 31 (20-32) mmol/L Anion Gap 6 L (7-15) mEq/L BUN 18 (7-30) mg/dL Creatinine 0.6 (0.5-1.5) mg/dL Estimated Creat Clear 37.10 Estimated GFR 87 ml/min Glucose 144 H (60-115) mg/dL Calcium 8.9 (8.4-10.6) mg/dL Magnesium 2.0 (1.5-2.6) mg/dL Total Bilirubin 0.8 (0.1-1.5) mg/dL Direct Bilirubin 0.3 (0.0-0.5) mg/dL AST 27 (12-35) U/L ALT 31 (4-35) U/L Alkaline Phosphatase 77 (40-150) U/L NT-Pro-B Natriuret Pep 1430 pg/mL Total Protein 6.6 (6.0-8.3) g/dL Albumin 3.8 (3.3-5.0) g/dL TSH 1.010 (0.270-4.200) uIU/mL Discharge Plan Discharge Clinical Impression: Muscle spasm of shoulder region, Atrial fibrillation Patient Disposition: Xfer Other Condition: Improved Instructions: A-fib (Atrial Fibrillation) (ED), Muscle Spasm (ED) Additional Instructions: Tylenol and ice as needed for your sore shoulder and muscles. Your EKG today shows that you are in atrial fibrillation, but that your heart rate is controlled. For now, you do not need any specific treatment for atrial fibrillation, but you should discuss with your regular doctor whether you would like to start on a blood thinner to reduce your risk of stroke due to atrial fibrillation. Prescriptions: No Action irbesartan 300 mg tablet 150 mg PO BID Qty: 45 1RF Trelegy Ellipta 200-62.5-25 mcg blister with device 1 inh inhalation Q24H Qty: 60 2RF cholecalciferol (vitamin D3) 25 mcg (1,000 unit) capsule 25 mcg PO QDAY calcium carbonate 500 mg calcium (1,250 mg) tablet,chewable 1,000 mg PO QDAY coenzyme Q10 300 mg capsule 300 mg PO DAILY cyanocobalamin (vitamin B-12) 500 mcg tablet 500 mcg PO DAILY aspirin 81 mg tablet,delayed release (DR/EC) 81 mg PO QDAY albuterol sulfate 90 mcg/actuation HFA aerosol inhaler See Rx Instructions .ROUTE .COMPLEX PRN Dose Instruction: INHALE 2 PUFFS BY MOUTH EVERY 4 HOURS NEEDED FOR WHEEZING AND DIFFICULT BREATHING Rx Instructions: INHALE 2 PUFFS BY MOUTH EVERY 4 HOURS NEEDED FOR WHEEZING AND DIFFICULT BREATHING PRN; cefadroxil 500 mg capsule 500 mg PO BID Qty: 20 0RF donepezil 10 mg tablet 10 mg PO QDAY Vitron-C 65 mg iron- 125 mg tablet,delayed release (DR/EC) 1 tab PO QDAY insulin glargine [Lantus Solostar U-100 Insulin] 100 unit/mL (3 mL) insulin pen 10 unit subcut .HS Qty: 15 6RF Rx Instructions: 10 units once nightly donepezil 5 mg tablet 5 mg PO QDAY Qty: 90 3RF fluoxetine 10 mg capsule 10 mg PO QDAY Qty: 90 1RF hydrochlorothiazide 25 mg tablet 25 mg PO QAM Qty: 90 3RF acetaminophen 500 mg capsule 1,000 mg PO Q4-6H MDD 3000 mg PRN (Reason: pain) Qty: 30 3RF quetiapine 25 mg tablet 25 mg PO QHS Qty: 30 2RF oxybutynin chloride 10 mg tablet extended release 24hr 10 mg PO QDAY Qty: 30 1RF Vitron-C 65 mg iron- 125 mg tablet,delayed release (DR/EC) 1 tab PO .qod Qty: 90 1RF Stand Alone Forms: [facility] Info Instructions
[2023-12-08 13:40] LABS: Basophils Absolute Auto 0.02 K/uL (0.00-0.30); Basophils Percent Auto 0.3 % (0.0-3.0); Eosinophils Absolute Auto 0.07 K/uL (0.00-0.50); Eosinophils Percent Auto 0.9 % (0.0-7.0); Hematocrit 41.6 % (33.0-51.0); Hemoglobin* 13.1 gm/dL (12.0-16.0); Immature Granulocytes Abs Auto 0.01 K/uL (0.00-0.30); Immature Granulocytes Pct Auto 0.1 %; Lymphocytes Percent Auto 9.9 % (20-44); Mean Corpuscular HGB Conc 32 gm/dL (32-36); Mean Corpuscular Hemoglobin 31 pg (26-34); Mean Corpuscular Volume 98 fL (80-100); Monocytes Percent Auto 10.8 % (0.0-11.0); Platelet Count* 189 K/uL (140-440); RDW Coefficient of Variation % 14.3 % (11.5-15.5); Red Blood Count 4.25 m/uL (4.00-5.20); White Blood Count* 7.61 K/uL (4.50-11.00)
[2023-12-08 13:43] LABS: Slide Review Reflex No
[2023-12-08 13:52] LABS: Chloride* 100 mmol/L (96-114); Potassium* 3.5 mmol/L (3.6-5.1); Sodium* 137 mmol/L (135-149)
[2023-12-08 13:53] LABS: Albumin* 3.8 g/dL (3.3-5.0)
[2023-12-08 13:55] LABS: Anion Gap 6 mEq/L (7-15); Blood Urea Nitrogen* 18 mg/dL (7-30); Carbon Dioxide* 31 mmol/L (20-32); Creatinine* 0.6 mg/dL (0.5-1.5); Estimated Glomerular Filt Rate 87 ml/min
[2023-12-08 13:56] LABS: Alanine Aminotransferase* 31 U/L (4-35); Alkaline Phosphatase* 77 U/L (40-150); Aspartate Amino Transferase* 27 U/L (12-35); Bilirubin Direct* 0.3 mg/dL (0.0-0.5); Bilirubin Total* 0.8 mg/dL (0.1-1.5); Calcium* 8.9 mg/dL (8.4-10.6); Glucose* 144 mg/dL (60-115); Total Protein* 6.6 g/dL (6.0-8.3)
[2023-12-08 14:05] LABS: NT Pro B Type NatriureticPept* 1430 pg/mL
[2023-12-23 09:07] LABS: Troponin, Point-of-Care* 0.01 ng/ml (0.01-0.04)
== END 2023-12-08 15:42 | disposition other institution (70) ==
PROVIDERS: Emergency Provider Emergency Medicine; PCP Emergency Medicine
DX: I48.91 Unspecified atrial fibrillation (principal); R25.2 Cramp and spasm; E11.9 Type 2 diabetes mellitus without complications; I25.10 Atherosclerotic heart disease of native coronary artery without angina pectoris; R60.9 Edema, unspecified
CPT/HCPCS: 36415; 72125; 80048; 80076; 83735; 83880; 84443; 84484; 85025; 93005; 99284; 99285

== ENCOUNTER 2024-02-18 13:38 | Outpatient (CLI) | payer MEDICARE, SELFPAY ==
[2024-02-18] MEDS: PERFLUTREN LIPID MICROSPHERES 2 ML VIAL IVP (16:41)
== END 2024-02-18 13:39 | disposition home or self-care (01) ==
LOC: RAD 13:39
PROVIDERS: PCP Emergency Medicine; Visit Provider Emergency Medicine
DX: I48.91 Unspecified atrial fibrillation (principal); I07.1 Rheumatic tricuspid insufficiency; I31.39 Other pericardial effusion (noninflammatory); I77.1 Stricture of artery
CPT/HCPCS: 93306; Q9957

== ENCOUNTER 2024-03-05 11:12 | Emergency (ER) | payer MEDICARE, SELFPAY ==
[2024-03-05] VITALS (10 sets, daily range): BP systolic 104–156; BP diastolic 87–131; PULSE 72–97; RESP 28; TEMP 36.8; O2SAT 91–96; BMI 37.3
--- NOTE | 2024-03-05 12:06 | CRLHL7_ITS ---
For Patients: As a result of the Century Cures Act, medical imaging exams and procedure reports are released immediately into your electronic medical record. You may view this report before your referring provider. If you have questions, please contact your health care provider. INDICATION: Shortness of breath COMPARISON: 07/11/2021 chest radiograph TECHNIQUE: Two radiographic view(s) of the chest. FINDINGS: Elevation of the left hemidiaphragm is again noted. No substantial pleural effusion. No pneumothorax. Hyperexpanded lungs. No definite focal pulmonary consolidation. Borderline cardiomegaly. Calcified tortuous thoracic aorta. There are osseous degenerative changes. Partially imaged bilateral shoulder arthroplasty. Multiple old right-sided rib fractures. There is a moderate anterior predominant compression deformity of a inferior thoracic vertebral body which is new since 07/11/2021, but otherwise age indeterminate. There is also mild chronic multilevel anterior vertebral body wedging throughout the thoracic spine. IMPRESSION: No definite focal pulmonary consolidation. Hyperexpanded lungs. Elevation of the left hemidiaphragm is again noted. Borderline cardiomegaly. There is a moderate compression deformity of an inferior thoracic vertebral body which is new since 07/11/2021, but otherwise age indeterminate. Dictated by Vince Giraldo MD @ 03/05/2024 12:50:16 PM (Electronically Signed)
--- NOTE | 2024-03-05 12:13 | ED_ITS ---
HPI - General Adult General Date Seen: 03/05/24 Chief complaint: Extremity Pain/Injury, Upper Stated complaint: swelling/pain in hand Time Seen by Provider: 03/05/24 11:55 Source: patient and family Mode of arrival: ambulatory Limitations: no limitations History of Present Illness HPI narrative: Patient is an 89-year-old female with history of COPD, TIA, diabetes, presenting to the emergency department with her daughter for left hand swelling and pain. She lives in assisted living in [facility]. She states for the past couple days she has had some left posterior hand swelling and pain. The pain has now improved but the swelling is still there. States they are used to be warmer to but that has improved. Denies fevers, chills, lightheadedness, dizziness, weakness, numbness, fatigue, chest pain, abdominal pain, nausea. Her daughter states the patient seems to be otherwise acting normally. She does have COPD and does states her shortness of breath might be slightly worse than baseline. Hard to say definitively she says. No history of blood clots. No other concerns noted. Has been using her COPD medications as directed. Related Data Home Medications ?Medication ?Instructions ?Recorded ?Confirmed coenzyme Q10 300 mg capsule 300 mg PO DAILY 11/01/21 03/05/24 cyanocobalamin (vitamin B-12) 500 500 mcg PO DAILY 11/01/21 03/05/24 mcg tablet aspirin 81 mg tablet,delayed 81 mg PO QDAY 02/05/22 03/05/24 release albuterol sulfate 90 mcg/actuation See Rx Instructions .Route 06/26/22 03/05/24 aerosol inhaler .COMPLEX PRN calcium carbonate 1,000 mg PO QDAY 08/28/22 03/05/24 cholecalciferol (vitamin D3) 25 25 mcg PO QDAY 08/28/22 03/05/24 mcg (1,000 unit) capsule donepezil 10 mg tablet 10 mg PO QDAY 11/20/23 01/27/24 iron,carbonyl 65 mg-vitamin C 125 1 tab PO QDAY 11/20/23 03/05/24 mg tablet,delayed release (Vitron-C) Previous Rx's ?Medication ?Instructions ?Recorded fluticasone fur. 200 mcg-umeclid 1 inh inhalation Q24H #60 ea 11/14/21 62.5 mcg-vilant 25 mcg inhalat.powder (Trelegy Ellipta) irbesartan 300 mg tablet 150 mg (1/2 x 300 mg) PO BID #45 11/14/21 tabs donepezil 5 mg tablet 5 mg PO QDAY #90 tabs 12/12/21 fluoxetine 10 mg capsule 10 mg PO QDAY #90 caps 09/03/22 hydrochlorothiazide 25 mg tablet 25 mg PO QAM #90 tabs 09/03/22 acetaminophen 500 mg capsule 1,000 mg (2 x 500 mg) PO Q4-6H PRN 02/13/23 pain #30 caps quetiapine 25 mg tablet 25 mg PO QHS #30 tabs 07/18/23 oxybutynin chloride 10 mg 10 mg PO QDAY #30 tabs 07/24/23 tablet,extended release 24 hr iron,carbonyl 65 mg-vitamin C 125 1 tab PO .qod #90 tabs 08/21/23 mg tablet,delayed release (Vitron-C) insulin glargine 100 unit/mL (3 10 unit (0.1 mL) subcut .HS #15 mL 11/20/23 mL) subcutaneous pen (Lantus Solostar U-100 Insulin) blood sugar diagnostic (Contour #100 ea 01/21/24 Next Test Strips) cephalexin 500 mg capsule 500 mg PO QID #20 caps 03/05/24 Allergies Allergy/AdvReac Type Severity Reaction Status Date / Time amlodipine Allergy Severe Rash Verified 03/05/24 11:55 azithromycin Allergy Severe Limb pain, Verified 03/05/24 11:55 diarrhea furosemide Allergy Severe Hives Verified 03/05/24 11:55 metoprolol Allergy Severe Shortness Verified 03/05/24 11:55 of breath, chest pain, low pulse rate sitagliptin Allergy Severe Lost some Verified 03/05/24 11:55 sight in left eye exenatide Allergy Intermediate Sore Verified 01/27/24 13:12 throat, diarrhea, cough, headache levofloxacin Allergy Intermediate Bruising Verified 03/05/24 11:55 clopidogrel Allergy Mild Edema Verified 03/05/24 11:55 losartan Allergy Unknown Heart Verified 03/05/24 11:55 palpitations, shortness of breath penicillin V Allergy Unknown Verified 03/05/24 11:55 insulin detemir (From Allergy Verified 03/05/24 11:55 Levemir U-100 Insulin) metformin Allergy Verified 03/05/24 11:55 naproxen Allergy Verified 03/05/24 11:55 NSAIDS (Non-Steroidal Allergy Verified 03/05/24 11:55 Anti-Inflamma lisinopril AdvReac Severe Headaches, Verified 03/05/24 11:55 heart palpitations, muscle aches pioglitazone AdvReac Severe Hip and Verified 01/27/24 13:12 arm pain carvedilol AdvReac Mild Vomiting Verified 01/27/24 13:12 simvastatin AdvReac Unknown Fatigued Verified 03/05/24 11:55 Review of Systems Status of ROS: Reports: 10 or more systems reviewed and unremarkable except as noted in History and below [facility] Medical History Living in assisted living ?Z78.9 - Other specified health status (ICD-10) Cellulitis, toe ?L03.039 - Cellulitis of unspecified toe (ICD-10) Falls ?R29.6 - Repeated falls (ICD-10) Pain in toe ?M79.676 - Pain in unspecified toe(s) (ICD-10) Iron deficiency anemia ?D50.9 - Iron deficiency anemia, unspecified (ICD-10) Dementia ?F03.90 - Unspecified dementia, unspecified severity, without behavioral disturbance, psychotic disturbance, mood disturbance, and anxiety (ICD-10) Anemia ?D64.9 - Anemia, unspecified (ICD-10) Wrist pain ?M25.539 - Pain in unspecified wrist (ICD-10) POLST (Physician Orders for Life-Sustaining Treatment) ?Z78.9 - Other specified health status (ICD-10) Visit for review of DEXA scan ?Z71.2 - Person consulting for explanation of examination or test findings (ICD-10) Rib fracture ?S22.39XA - Fracture of one rib, unspecified side, initial encounter for closed fracture (ICD-10) Atherosclerotic heart disease ?I25.10 - Atherosclerotic heart disease of [place] coronary artery without angina pectoris (ICD-10) Compression fracture Hearing loss ?H91.90 - Unspecified hearing loss, unspecified ear (ICD-10) 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 or stenosis of small artery (ICD-10) Diabetes mellitus, controlled ?E11.9 - Type 2 diabetes mellitus without complications (ICD-10) Encounter for medication review ?Z79.899 - Other remote computer terminal operator (current) drug therapy (ICD-10) Unintentional weight loss ?R63.4 - Abnormal weight loss (ICD-10) Hyperlipidemia ?E78.5 - Hyperlipidemia, unspecified (ICD-10) Depression ?F32.A - Depression, unspecified (ICD-10) Encounter for screening for severe acute respiratory syndrome coronavirus 2 (SARS-CoV-2) infection ?Z11.52 - Encounter for screening for COVID-19 (ICD-10) Edema ?R60.9 - Edema, unspecified (ICD-10) Diabetes mellitus ?E11.9 - Type 2 diabetes mellitus without complications (ICD-10) Surgical History 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 - Presence of right artificial shoulder joint (ICD-10) 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 (09/26/11) ?Z90.710 - Acquired absence of both cervix and uterus (ICD-10) ?Z90.722 - Acquired absence of ovaries, bilateral (ICD-10) ?Z90.79 - Acquired absence of other genital organ(s) (ICD-10) Status post reverse total replacement of left shoulder ?Z96.612 - Presence of left artificial shoulder joint (ICD-10) 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) ?Z96.651 - Presence of right artificial knee joint (ICD-10) History of partial surgical removal of colon (09/26/11) ?Z90.49 - Acquired absence of other specified parts of digestive tract (ICD- 10) History of colonoscopy ?Z98.890 - Other specified postprocedural states (ICD-10) History of cholecystectomy (09/26/11) ?Z90.49 - Acquired absence of other specified parts of digestive tract (ICD- 10) Family History Mother Family history of stroke or transient ischemic attack in mother Social History Narrative: advance directive in chart- 01/25/15 former cigarette smoker Smoking Status: Former smoker Do you use any of these nicotine containing products: None Second hand tobacco smoke exposure: No How often do you have a drink containing alcohol: 2-4 times a month How often do you have six or more drinks on one occasion: Never AUDIT-C Alcohol total score: 2 Non-prescribed substance use: denies use Exam Narrative: Exam Narrative: Const: Well-nourished, Well-developed, in mild distress Eyes: PERRL, no conjunctival injection, and symmetrical lids HENT: Atraumatic external nose and ears. Moist mucous membranes. Neck: Symmetric, trachea midline, No thyromegaly. CVS: RRR, No murmurs or gallops. Peripheral pulses 2+ and equal in all extremities RESP: Unlabored respiratory effort. Clear to auscultation bilaterally. GI: Nontender/Nondistended, No rebound or guarding. MSK:Extremities w/o deformity, Normal Active ROM Skin: Mild swelling and erythema noted to left dorsal hand with mild warmth. No streaking of infection up arm is seen Neuro: Normal Muscle tone, No focal neurological deficits. Psych: Awake, Alert, & Oriented x3. Appropriate mood and affect. Const: Vital Signs, click to edit/add: Vital Signs - 24 hr 03/05/24 11:42 03/05/24 12:50 03/05/24 12:53 Temperature 98.2 F Pulse Rate Pulse Rate [Pulse Oximeter] 97 Respiratory Rate 28 H Blood Pressure 104/87 139/104 H Blood Pressure [Ri ght Upper Arm] 142/106 H Pulse Oximetry 92 Oxygen Delivery Me thod Room Air 03/05/24 13:02 03/05/24 13:03 03/05/24 13:15 Temperature Pulse Rate 79 95 Pulse Rate [Pulse Oximeter] Respiratory Rate Blood Pressure 156/104 H Blood Pressure [Ri ght Upper Arm] Pulse Oximetry 94 96 Oxygen Delivery Me thod 03/05/24 13:23 03/05/24 13:30 03/05/24 13:43 Temperature Pulse Rate 76 76 72 Pulse Rate [Pulse Oximeter] Respiratory Rate Blood Pressure 141/90 H 149/131 H Blood Pressure [Ri ght Upper Arm] Pulse Oximetry 92 92 91 Oxygen Delivery Me thod 03/05/24 13:45 Temperature Pulse Rate 77 Pulse Rate [Pulse Oximeter] Respiratory Rate Blood Pressure Blood Pressure [Ri ght Upper Arm] Pulse Oximetry 92 Oxygen Delivery Me thod Course Vital Signs Vital signs: Initial Vital Signs Temperature 98.2 F 03/05/24 11:42 Temperature Source Temporal Artery Scan 03/05/24 11:42 Pulse Rate 97 03/05/24 11:42 Respiratory Rate 28 H 03/05/24 11:42 Blood Pressure 142/106 H 03/05/24 11:42 Blood Pressure Mean 118 H 03/05/24 11:42 Blood Pressure Position Semi-Fowlers 03/05/24 11:42 Pulse Oximetry 92 03/05/24 11:42 Oxygen Delivery Method Room Air 03/05/24 11:42 Vital Signs Temperature 98.2 F 03/05/24 11:42 Pulse Rate 97 03/05/24 11:42 Respiratory Rate 28 H 03/05/24 11:42 Blood Pressure 142/106 H 03/05/24 11:42 Pulse Oximetry 92 03/05/24 11:42 Oxygen Delivery Method Room Air 03/05/24 11:42 Temperature 98.2 F 03/05/24 11:42 Pulse Rate 77 03/05/24 13:45 Respiratory Rate 28 H 03/05/24 11:42 Blood Pressure 149/131 H 03/05/24 13:43 Pulse Oximetry 92 03/05/24 13:45 Oxygen Delivery Method Room Air 03/05/24 11:42 Medications Administered Medications: Discontinued Medications Generic Name Dose Route Start Last Admin Trade Name Freq PRN Reason Stop Dose Admin Ceftriaxone Sodium 1 gm/ 100 mls @ 200 mls/hr 03/05/24 12:17 03/05/24 13:57 Sodium Chloride IVPB 03/05/24 12:18 Infused ONCE ONE Infusion Medical Decision Making [facility] Narrative Medical decision making narrative: Patient is an 89-year-old female presenting for likely cellulitis of her left hand. Considering her age though and she is meeting criteria for SIRS I will do a full workup to make sure there is no further issues. Will do a CBC, blood cultures, BMP, lactate, EKG, troponin. She is also having some very mild shortness of breath. Will do viral swabs and a chest x-ray. Will give her some Rocephin right now. She has a penicillin allergy on her allergy list but she states this has been from a long time ago is not aware of what the reaction even once. Her daughter states she has never seen the patient having reaction to any penicillins Lab work returned showing no concerning abnormalities. Viral swabs are negative. EKG and troponin showed no concerning findings. Do not believe repeat troponin is necessary as she is not having any chest pain with shortness of breath has been going on for couple days. Chest x-ray reviewed by myself and the radiologist showed no acute abnormalities. Lactate within normal limits. At this time is not appear to be any systemic disease and the infection is likely localized to just the hand. On my review vital signs are stable throughout time in in the emergency department. Oximetry stayed in the mid to high 90s. environmental monitoring technician showed no concerning arrhythmias. Will discharge her on Keflex. They are agreeable to this plan. Lab Data Labs: Lab Results 03/05/24 Range/Units 12:33 WBC 4.16 L (4.50-11.00) K/uL RBC 4.27 (4.00-5.20) m/uL Hgb 13.0 (12.0-16.0) gm/dL Hct 41.3 (33.0-51.0) % MCV 97 (80-100) fL MCH 30 (26-34) pg MCHC 32 (32-36) gm/dL RDW Coeff of Brock 15.6 H (11.5-15.5) % Plt Count 179 (140-440) K/uL Neut % (Auto) 74.0 H (42.0-72.0) % Lymph % (Auto) 12.3 L (20-44) % [place] % (Auto) 10.6 (0.0-11.0) % Eos % (Auto) 2.2 (0.0-7.0) % Baso % (Auto) 0.7 (0.0-3.0) % Neut # (Auto) 3.10 (1.7-7.0) K/uL Lymph # (Auto) 0.50 L (0.90-2.90) K/uL [place] # (Auto) 0.40 (0.00-0.90) K/UL Eos # (Auto) 0.10 (0.00-0.50) K/uL Baso # (Auto) 0.00 (0.00-0.30) K/uL Abs Immat Gran (auto) 0.00 (0.00-0.30) K/uL Imm/Tot Granulo (auto) 0.2 % Sodium 137 (135-149) mmol/L Potassium 3.4 L (3.6-5.1) mmol/L Chloride 100 (96-114) mmol/L Carbon Dioxide 29 (20-32) mmol/L Anion Gap 8 (7-15) mEq/L BUN 18 (7-30) mg/dL Creatinine 0.6 (0.5-1.5) mg/dL Estimated Creat Clear 34.99 Estimated GFR 86 ml/min Glucose 146 H (60-115) mg/dL Lactate 1.4 (0.5-1.9) mmol/L Calcium 8.8 (8.4-10.6) mg/dL SARS-CoV-2 (PCR) Negative SARS-CoV-2 (Negative) Influenza Type A (PCR) Negative PCR FLU A (Negative) Influenza Type B (PCR) Negative PCR FLU B (Negative) RSV (PCR) Negative PCR RSV (Negative) POC Troponin I 0.02 (0.01-0.04) ng/ml Imaging Data Chest x-ray: Attestation: I have reviewed the pertinent imaging results. Radiologist's impression: No definite focal pulmonary consolidation. Hyperexpanded lungs. Elevation of the left hemidiaphragm is again noted. Borderline cardiomegaly. There is a moderate compression deformity of an inferior thoracic vertebral body which is new since 07/11/2021, but otherwise age indeterminate. Dictated by Vince Giraldo MD @ 03/05/2024 12:50:16 PM ECG Data Attestation: I personally reviewed and interpreted this ECG as follows: Prior ECG tracings: available for review Interpretation: Atrial fibrillation with a rate of 76 beats per minute, normal intervals, normal axis, no ST abnormalities. There may be some T-wave inversions in lead 2 but is hard to say due to the artifact. Discharge Plan Discharge Clinical Impression: Cellulitis of hand Patient Disposition: Home, Self-Care Condition: Stable Instructions: Cellulitis (ED) Additional Instructions: Take the antibiotic as directed. Return to emergency department for new or worsening symptoms. Prescriptions: New cephalexin 500 mg capsule 500 mg PO QID Qty: 20 0RF No Action irbesartan 300 mg tablet 150 mg PO BID Qty: 45 1RF Trelegy Ellipta 200-62.5-25 mcg blister with device 1 inh inhalation Q24H Qty: 60 2RF cholecalciferol (vitamin D3) 25 mcg (1,000 unit) capsule 25 mcg PO QDAY calcium carbonate 500 mg calcium (1,250 mg) tablet,chewable 1,000 mg PO QDAY coenzyme Q10 300 mg capsule 300 mg PO DAILY cyanocobalamin (vitamin B-12) 500 mcg tablet 500 mcg PO DAILY aspirin 81 mg tablet,delayed release (DR/EC) 81 mg PO QDAY albuterol sulfate 90 mcg/actuation HFA aerosol inhaler See Rx Instructions .ROUTE .COMPLEX PRN Dose Instruction: INHALE 2 PUFFS BY MOUTH EVERY 4 HOURS NEEDED FOR WHEEZING AND DIFFICULT BREATHING Rx Instructions: INHALE 2 PUFFS BY MOUTH EVERY 4 HOURS NEEDED FOR WHEEZING AND DIFFICULT BREATHING PRN; donepezil 10 mg tablet 10 mg PO QDAY Vitron-C 65 mg iron- 125 mg tablet,delayed release (DR/EC) 1 tab PO QDAY insulin glargine [Lantus Solostar U-100 Insulin] 100 unit/mL (3 mL) insulin pen 10 unit subcut .HS Qty: 15 6RF Rx Instructions: 10 units once nightly donepezil 5 mg tablet 5 mg PO QDAY Qty: 90 3RF fluoxetine 10 mg capsule 10 mg PO QDAY Qty: 90 1RF hydrochlorothiazide 25 mg tablet 25 mg PO QAM Qty: 90 3RF acetaminophen 500 mg capsule 1,000 mg PO Q4-6H MDD 3000 mg PRN (Reason: pain) Qty: 30 3RF quetiapine 25 mg tablet 25 mg PO QHS Qty: 30 2RF oxybutynin chloride 10 mg tablet extended release 24hr 10 mg PO QDAY Qty: 30 1RF Vitron-C 65 mg iron- 125 mg tablet,delayed release (DR/EC) 1 tab PO .qod Qty: 90 1RF (DME) Contour Next Test Strips Strip See Rx Instructions .Route Qty: 100 3RF Rx Instructions: Use to test blood glucose daily Follow Up/Referrals: Darlene Mendoza MD [Primary Care Provider] - Stand Alone Forms: [facility] Info Instructions
--- OUTSIDE RECORDS SUMMARY | 2024-03-05 12:21 | XMS_ITS | Data Portability ---
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 Plan of Treatment Reminders Order Date Submit Date Provider Last Modified By Organization Details Last Modified Time Details Appointments None recorded. Lab urinalysis , dipstick 2021 022 [email or web address] 9 [facility], [address], [address], [place], [address], 2 15:00:59 urinalysis , dipstick 2022 023 [facility], [address], [address], [place], [address], 3 14:52:30 urinalysis , dipstick 2023 024 [email or web address] [facility], [address], [place], [address], 4 15:42:13 Referral None recorded. Procedures bladder scan (PROC) 2022 023 [facility], [address], [address], [place], [address], 14:52:32 Surgeries None recorded. Imaging None recorded. Medication Orders None recorded. Patient TargetsNo targets recorded. Patient Instructions Encounter Date Encounter Id Patient Instructions Last Modified By Organization Details Last Modified Time 10/30/2021 [id number] will restart on gemtesa. plan recheck in 3 months. [email or web address] Not available 10/30/2021 15:08:56 01/29/2022 [id number] will continue on gemtesa samples. rtc 3 months. [email or web address] Not available 01/29/2022 12:05:53 10/17/2022 [id number] willt ry startin g her on oxybutynin ER 10mg daily and plan recheck in 2 months for SE's and effectiveness. rx sent [place] paperwork [place] facility [email or web address] Not available 10/17/2022 11:10:27 01/28/2023 [id number] will set her up for UDS in [place]. [email or web address] Not available 01/28/2023 14:52:27 Reason for Referral None Reported. Results Created Date Observation Date Name Description Value Unit Range Abnormal Flag Note LastModifiedBy Organization Detail LastModifiedTime 10/31/19 22 10/30/2021 urina lysis , dipst ick pH-Status 7.0 Not Available [address] [facility], [place], [address], 10/30/2021 15:00:30 10/31/19 22 10/30/2021 urina lysis , dipst ick Leuko-Status Small Not Available [address], [place], [address], 10/30/2021 15:00:30 01/29/20 23 01/28/2023 bladd er scan (PROC ) Volume (in mL) 0ml Not Available [address], [place], [address], 01/28/2023 14:44:33 01/29/20 23 01/28/2023 urina lysis , dipst ick pH-Status 7.0 Not Available [facility] [address], [place], [address], 01/28/2023 14:44:31 01/29/20 23 01/28/2023 urina lysis , dipst ick Leuko-Status Trace Not Available [facility] [address], [place], [address], 01/28/2023 14:44:31 03/26/19 24 03/26/2023 urina lysis , dipst ick Color-Status Yellow Not Available [facility] [address], [place], [address], 03/26/2023 15:41:09 03/26/19 24 03/26/2023 urina lysis , dipst ick Clarity-Stat us Clear Not Available [facility] [address], [place], [address], 03/26/2023 15:41:09 03/26/19 24 03/26/2023 urina lysis , dipst ick Glucose-Stat us Negati ve Not Available [facility] [address], [place], [address], 03/26/2023 15:41:09 03/26/19 24 03/26/2023 urina lysis , dipst ick Bilirubin-St atus Negati ve Not Available [facility] [address], [place], [address], 03/26/2023 15:41:09 03/26/19 24 03/26/2023 urina lysis , dipst ick Ketones-Stat us Negati ve Not Available [facility] [address], [place], [address], 03/26/2023 15:41:09 03/26/19 24 03/26/2023 urina lysis , dipst ick Sp [place]-Stat us 1.020 Not Available [facility] [address], [place], [address], 03/26/2023 15:41:09 03/26/19 24 03/26/2023 urina lysis , dipst ick pH-Status 7.0 Not Available [facility] [address], [place], [address], 03/26/2023 15:41:09 03/26/19 24 03/26/2023 urina lysis , dipst ick Urobilinogen -Status 0.2 Not Available [facility] [address], [place], [address], 03/26/2023 15:41:09 03/26/19 24 03/26/2023 urina lysis , dipst ick Nitrates-Sta tus negati ve Not Available [facility] [address], [place], [address], 03/26/2023 15:41:09 03/26/19 24 03/26/2023 urina lysis , dipst ick Blood-Status Trace Not Available [facility] [address], [place], [address], 03/26/2023 15:41:09 03/26/19 24 03/26/2023 urina lysis , dipst ick Leuko-Status Negati ve Not Available [facility] [address], [place], [address], 03/26/2023 15:41:09 03/26/19 24 03/26/2023 urina lysis , dipst ick Specimen Type Voided Not Available [facility] [address], [place], [address], 03/26/2023 15:41:09 11/01/19 22 10/30/2021 bladd er scan (PROC ) No observ ation record ed. BARCODE Not Available 2021 09:31:25 01/31/20 22 01/29/2022 bladd er scan (PROC ) No observ ation record ed. BARCODE Not Available 2021 15:21:05 Result Notes None recorded. Problems Name Problem SNOMED Code Status Onset Date Resolution Date Notes Provider Name and Address Organization Details Recorded Time Overactive urinary bladder [id number] Active 022 Favio Montalvo MD [address] [place] [address],[address] [place] [address], [address], [facility] 12:03:28 Problem Notes None recorded. Procedures Surgical History Date Name Laterality Status Provider Name and Address Organization Details Recorded Time 03/26/19 24 Urodynamic Studies completed Giovanna Bolivar [facility] 03/26/2023 15:42:26 01/29/20 23 Bladder Scan completed Mario Renee [facility] 01/28/2023 14:44:23 10/18/19 23 Bladder Scan completed Lisa Bui [facility] 10/17/2022 10:45:47 01/30/20 22 Bladder Scan completed Favio Montalvo MD [address] [place] [address],[address], [place], [address], [facility] 01/29/2022 11:58:31 10/31/19 22 Bladder Scan completed Favio Montalvo MD [address] [place] [address],[address], [place], [address], [facility] 10/30/2021 15:00:24 08/22/19 22 Bladder Scan completed Favio Montalvo MD [address] [place] [address],[address], [address], [facility] 08/21/2021 14:33:40 07/06/19 22 Bladder Scan completed Kristi Lloyd [facility] 07/05/2021 12:34:16 Total Hysterectomy completed Kristi Lloyd [facility] 07/05/2021 12:34:29 Cataract Surgery completed Kristi Gabino [facility] 07/05/2021 12:34:36 Orthopedic Surgery completed Kristi Gaspareau [facility] 07/05/2021 12:34:45 Imaging Results Imaging Date Name Status LastModified by Organiz ation Details LastModified Time 10/30/2021 bladder scan (PROC) completed BARCODE Information not available 10/31/2021 09:31:25 01/29/2022 bladder scan (PROC) completed BARCODE Information not available 01/30/2022 15:21:05 Procedure Notes None recorded. Medical Equipment None Reported. Allergies Allergen ID Allergen Name Allergen Category Reaction Reaction Severity Criticality Documentation Date Start Date Code Code System Note Provider Name and Address Organization Details Recorded Time [id number] 7502579f5 2824e amlodipin e medicatio n Not available Not available Not available 03/26/2023 50110 RxNorm Not Available Not Available Not Available [id number] 2824e azithromy lalo medicatio n Not available Not available Not available 03/26/2023 98243 RxNorm Not Available Not Available Not Available [id number] 2824e furosemid e medicatio n Not available Not available Not available 03/26/2023 4603 RxNorm Not Available Not Available Not Available [id number] 2824e insulin detemir medicatio n Not available Not available Not available 03/26/2023 92843 5 RxNorm Not Available Not Available Not Available [id number] 2824e metformin medicatio n Not available Not available Not available 03/26/2023 6809 RxNorm Not Available Not Available Not Available [id number] 2824e metoprolo l Not available Not available Not available Not available 03/26/2023 6918 RxNorm Not Available Not Available Not Available [id number] 2824e naproxen medicatio n Not available Not available Not available 03/26/2023 7258 RxNorm Not Available Not Available Not Available [id number] [id number] 2824e sitaglipt in medicatio n Not available Not available Not available 03/26/2023 45293 1 RxNorm Not Available Not Available Not Available [id number] 2824e exenatide medicatio n Not available Not available Not available 03/26/2023 54555 RxNorm Not Available Not Available Not Available [id number] 2824e levofloxa lalo medicatio n Not available Not available Not available 03/26/2023 64965 RxNorm Not Available Not Available Not Available [id number] 2824e clopidogr el medicatio n Not available Not available Not available 03/26/2023 28728 RxNorm Not Available Not Available Not Available [id number] 2824e losartan medicatio n Not available Not available Not available 03/26/2023 38424 RxNorm Not Available Not Available Not Available [id number] 2824e Medicinal product containin g penicilli n and acting as antibacte rial agent (product) medicatio n Not available Not available Not available 03/26/2023 09388 05 SNOMED Not Available Not Available Not Available [id number] 2824e lisinopri l medicatio n Not available Not available Not available 03/26/2023 09290 RxNorm Not Available Not Available Not Available [id number] 2824e pioglitaz one medicatio n Not available Not available Not available 03/26/2023 30387 RxNorm Not Available Not Available Not Available [id number] 2824e simvastat in medicatio n Not available Not available Not available 03/26/2023 18207 RxNorm Not Available Not Available Not Available Medications Name Sig Start Date Stop Date Status Note LastModified by Organization Details LastModified Time ascensia contr2 4link meter ds USE TO READ BLOOD GLUCOSE active Not Available Not Available No t Available quetiapine 25 mg tablet TAKE 1 TAB BY MOUTH AT BEDTIME active Not Available Not Available No t Available metformin 500 mg tablet TAKE 1 TABLET BY MOUTH TWICE DAILY WITH MEALS active Not Available Not Available No t Available doxycycline hyclate 100 mg capsule TAKE 1 CAPSULE BY MOUTH TWICE DAILY 10/30 completed Not Available Not Available Not Available donepezil 5 mg tablet TAKE 1 TABLET BY MOUTH ONCE DAILY FOR DEMENTIA active Not Available Not Available No t Available oxybutynin chloride ER 10 mg tablet,exte nded release 24 hr TAKE 1 TAB BY MOUTH IN THE EVENING active Not Available Not Available No t Available donepezil 10 mg tablet TAKE ONE TABLET BY MOUTH DAILY active Not Available Not Available No t Available prednisone 20 mg tablet TAKE 2 TABLETS BY MOUTH DAILY 08/21 completed Not Available Not Available Not Available potassium chloride ER 10 mEq tablet,exte nded release TAKE 1 BY MOUTH ONCE DAILY active Not Available Not Available No t Available acetaminoph en 500 mg tablet TAKE 2 TABS (1,000MG) BY MOUTH EVERY 4-6 HOURS NEEDED FOR PAIN. MAX 3000MG IN 24 HOURS. active Not Available Not Available No t Available carvedilol 3.125 mg tablet TAKE 1 TAB BY MOUTH TWICE A DAY FOR BLOOD PRESSURE. active Not Available Not Available No t Available cyanocobala min (vit B-12) 500 mcg tablet TAKE 1 TABLET BY MOUTH ONCE DAILY active Not Available Not Available No t Available doxycycline monohydrate 100 mg capsule TAKE 1 CAPSULE 30-60 MINUTES PRIOR TO DENTAL PROCEDURE * active Not Available Not Available No t Available fluoxetine 10 mg capsule TAKE 1 CAPSULE BY MOUTH ONCE DAILY FOR DEPRESSIO N/ANXIETY active Not Available Not Available No t Available Advair Diskus 500 mcg-50 mcg/dose powder for inhalation INHALE 1 DOSE BY MOUTH TWICE DAILY active Not Available Not Available No t Available hydrochloro thiazide 25 mg tablet TAKE 1 TABLET BY MOUTH ONCE DAILY FOR HTN active Not Available Not Available No t Available gabapentin 100 mg capsule active Not Available Not Available Not Available irbesartan 150 mg tablet TAKE 1 TAB BY MOUTH TWICE A DAY FOR HTN active Not Available Not Available No t Available finasteride 5 mg tablet TAKE 1/2 (ONE HALF) TABLET BY MOUTH ONCE DAILY 07/05 completed Not Available Not Available Not Available irbesartan 300 mg tablet TAKE 1/2 TABLET (150MG) BY MOUTH TWICE A DAY FOR HTN active Not Available Not Available No t Available Ventolin HFA 90 mcg/actuati on aerosol inhaler INHALE TWO PUFFS BY MOUTH EVERY FOUR HOURS NEEDED FOR WHEEZING / DIFFICULT Y BREATHING active Not Available Not Available No t Available Oyster Shell Calcium-500 500 mg (as carbonate 1,250 mg) tablet TAKE 1 TABLET BY MOUTH ONCE DAILY active Not Available Not Available No t Available pen needle, diabetic 31 gauge x 16 USE 1 ONCE DAILY active Not Available Not Available No t Available coenzyme Q10 100 mg capsule TAKE 1 CAPSULE BY MOUTH ONCE DAILY FOR A TOTAL 300MG DAILY active Not Available Not Available No t Available rosuvastati n 10 mg tablet TAKE 1 TABLET BY MOUTH ONCE DAILY active Not Available Not Available No t Available Unistik 3 Comfort Device kit USE TO TEST BLOOD GLUCOSE ONCE DAILY;USE TO TEST BLOOD GLUCOSE ONCE DAILY NEEDED active Not Available Not Available No t Available coenzyme Q10 200 mg capsule TAKE 1 CAPSULE BY MOUTH ONCE DAILY WITH 100MG CAP TO TOTAL 300MG DAILY active Not Available Not Available No t Available cholecalcif samia (vitamin D3) 25 mcg (1,000 unit) tablet TAKE 1 TABLET BY MOUTH ONCE DAILY FOR DEFICIENC Y active Not Available Not Available No t Available Unistik 3 Comfort Lancet 28 gauge USE TO TEST BLOOD GLUCOSE ONCE DAILY;USE TO TEST BLOOD GLUCOSE ONCE DAILY NEEDED active Not Available Not Available No t Available Lantus Solostar U-100 Insulin 100 unit/mL (3 mL) subcutaneou s pen INJECT 10 UNITS (SUBQ) SUBCUTANE OUSLY AT BEDTIME FOR DM II active Not Available Not Available No t Available donepezil 23 mg tablet TAKE 1 TAB BY MOUTH ONCE DAILY active Not Available Not Available No t Available BD AutoShield Duo Pen Needle 30 gauge x 3/16 USE TO INJECT INSULIN DAILY DIRECTED active Not Available Not Available No t Available Contour Next Test Strips USE TO TEST BLOOD GLUCOSE ONCE DAILY;USE TO TEST BLOOD GLUCOSE ONCE DAILY NEEDED active Not Available Not Available No t Available Contour Next EZ Meter USE TO TEST BLOOD GLUCOSE ONCE DAILY;USE TO TEST BLOOD GLUCOSE ONCE DAILY NEEDED active Not Available Not Available No t Available Trelegy Ellipta 200 mcg-62.5 mcg-25 mcg powder for inhalation INHALE 1 PUFF BY MOUTH EVERY 24 HRS active Not Available Not Available No t Available Vitals Date Recorded Body height Body mass index (BMI) Body weight Provider Name and Address Organization Details Last Updated DateTime 10/30/2021 172.72 cm 33.5 kg/m2 12110.32 g Favio Montalvo MD [address] [place] [address], [address] 10/30/2021 14:59:44 Date Recorded Body height Body mass index (BMI) Body weight Provider Name and Address Organization Details Last Updated DateTime 01/29/2022 172.72 cm 32.2 kg/m2 15765.58 g Favio Montalvo MD [address], [address] 01/29/2022 11:57:56 Date Recorded Body height Body mass index (BMI) Body weight Provider Name and Address Organization Details Last Updated DateTime 10/17/2022 172.72 cm 32.2 kg/m2 61151.58 g Lisa Bui [facility] 10/17/2022 10:45:30 Date Recorded Body height Body mass index (BMI) Body weight Provider Name and Address Organization Details Last Updated DateTime 01/28/2023 172.72 cm 32.2 kg/m2 52517.58 g Mario Renee [facility] 01/28/2023 14:43:47 Social History Question Answer Notes LastModified by Organizat ion Details LastModified Time Tobacco Smoking Status Former Smoker Favio Montlavo MD [address] [place] [address],[facility] [address], [address], [facility] 07/05/2021 12:28:26 What Is Your Level Of Alcohol Consumption? Occasional [email or web address] Information not available 08/21/2021 What Is Your Level Of Caffeine Consumption? Occasional [email or web address] Information not available 08/21/2021 When Did You Quit Smoking? [email or web address] [email or web address] [email or web address] Information not available 07/05/2021 What Was The Date Of Your Most Recent Tobacco Screening? 07/05/2021 [email or web address] Information not available 07/05/2021 Has Tobacco Cessation Counseling Been Provided? No [email or web address] Information not available 07/05/2021 Do You Or Have You Ever Used Any Other Forms Of Tobacco Or Nicotine? No [email or web address] Information not available 07/05/2021 Sex: Unknown Functional Status None recorded. Mental Status None recorded. Family History Relationship Description Onset Age of this Age Resolved Age Notes LastModified by Organization Details LastModified Time Sister Family history of breast cancer [email or web address] Not available 2021 12:36:10 Notes:x4 Medical History Condition Response Diabetes N Sexually Transmitted Infection N Other N Bleeding Disorder N High Blood Pressure Y Kidney Stones N Cancer Y Lung Disease N Depression N High Cholesterol Y GERD/Acid Reflux N Heart Disease N Gynecological History Statement/Question Response Sexually Active? N Obstetrics History GPAL:G 1 P 0 0 0 0 Immunizations Vaccine Type Date Status Note Provider Nam e and Address Organization Details Recorded Time Influenza, high-dose, trivalent, PF 6 completed Favio Montalvo MD [address] [place] [address],[address], [address], [facility] 07/05/2021 12:25:26 Influenza, split virus, trivalent, preservative 4 completed Favio Montalvo MD [address] [place] [address],[address], [address] [place] [address], [facility] 07/05/2021 12:25:26 zoster recombinant 9 completed Favio Montalvo MD [address] [place] [address],[address], [address], [facility] 07/05/2021 12:25:27 influenza, unspecified formulation 9 completed Favio Montalvo MD [address] [place] [address],[address], [address], [facility] 07/05/2021 12:25:27 zoster recombinant 0 completed Favio Montalvo MD [address] [place] [address],[address], [address], [facility] 07/05/2021 12:25:27 Influenza, split virus, trivalent, preservative 4 completed Favio Montalvo MD [address] [place] [address],[address], [address], [facility] 07/05/2021 12:25:27 Influenza, recombinant, quadrivalent, PF 9 completed Favio Montalvo MD [address] [place] [address],[address], [address], [facility] 07/05/2021 12:25:27 COVID-19, mRNA, LNP-S, PF, 30 mcg/0.3 mL dose 1 completed Favio Montalvo MD [address] [place] [address],[address], [place], [address], [facility] 07/05/2021 12:25:27 pneumococcal polysaccharide PPV23 2 completed Favio Montalvo MD [address] [place] [address],[address], [place], [address], [facility] 07/05/2021 12:25:27 Td (adult), 2 Lf tetanus toxoid, preservative free, adsorbed 4 completed Favio Montalvo MD [address] [place] [address],[address], [place], [address], [facility] 07/05/2021 12:25:27 Influenza, high-dose, trivalent, PF 5 completed Favio Montalvo MD [address] [place] [address],[facility] [address], [place], [address], [facility] 07/05/2021 12:25:27 pneumococcal polysaccharide PPV23 7 completed Favio Montalvo MD [address] [place] [address],[address], [place], [address], [facility] 07/05/2021 12:25:27 Pneumococcal conjugate PCV 13 5 completed Favio Montalvo MD [address] [place] [address],[address], [place], [address], [facility] 07/05/2021 12:25:27 Influenza, split virus, quadrivalent, PF 0 completed Favio Montalvo MD [address] [place] [address],[address], [place], [address], [facility] 07/05/2021 12:25:27 Influenza, adjuvanted, trivalent, PF 8 completed Favio Montalvo MD [address] [place] [address],[facility] [address], [place], [address], [facility] 07/05/2021 12:25:27 Influenza, split virus, trivalent, preservative 2 completed Favio Montalvo MD [address] [place] [address],[address], [place], [address], [facility] 07/05/2021 12:25:27 Td (adult), 2 Lf tetanus toxoid, preservative free, adsorbed 8 completed Favio Montalvo MD [address] [place] [address],[address], [address], [facility] 07/05/2021 12:25:27 Influenza, split virus, trivalent, preservative 3 completed Favio Montalvo MD [address] [place] [address],[facility] [address], [place], [address], [facility] 07/05/2021 12:25:27 pneumococcal polysaccharide PPV23 8 completed Favio Montalvo MD [address] [place] [address],[address], [address], [facility] 07/05/2021 12:25:27 Influenza, adjuvanted, quadrivalent, PF 1 completed Favio Montalvo MD [address] [place] [address],[address], [address], [facility] 07/05/2021 12:25:27 Influenza, split virus, trivalent, preservative 1 completed Favio Montalvo MD [address] [place] [address],[address], [address], [facility] 07/05/2021 12:25:27 COVID-19, mRNA, LNP-S, PF, 30 mcg/0.3 mL dose 1 completed Favio Montalvo MD [address] [place] [address],[address], [address], [facility] 07/05/2021 12:25:27 Influenza, adjuvanted, trivalent, PF 7 completed Favio Montalvo MD [address] [place] [address],[address], [address], [facility] 07/05/2021 12:25:27 Hep A, adult 4 completed Favio Montalvo MD [address] [place] [address],[address], [place], [address], [facility] 07/05/2021 12:25:27 Td (adult), 5 Lf tetanus toxoid, preservative free, adsorbed 9 completed Favio Montalvo MD [address] [place] [address],[address], [address], [facility] 07/05/2021 12:25:27 Influenza, split virus, trivalent, preservative 3 completed Favio Montalvo MD [address] [place] [address],[address], [address], [facility] 07/05/2021 12:25:27 Td (adult), 2 Lf tetanus toxoid, preservative free, adsorbed 5 completed Favio Montalvo MD [address] [place] [address],[address], [address], [facility] 07/05/2021 12:25:27 Influenza, split virus, trivalent, preservative 0 completed Favio Montalvo MD [address] [place] [address],[address], [address], [facility] 07/05/2021 12:25:27 COVID-19, mRNA, LNP-S, PF, 30 mcg/0.3 mL dose 1 completed Favio Montalvo MD [address] [place] [address],[address] [place] [address], [address], [facility] 07/05/2021 12:25:27 COVID-19, mRNA, LNP-S, bivalent, PF, 30 mcg/0.3 mL dose 2 [facility] 14:16:47 Past Encounters Encounter ID Performer Location Encounter Start Date Encounter Closed Date Diagnosis/Indication Diagnosis SNOMED-CT Code Diagnosis ICD10 Code [id number] [facility] [place] [address] [facility] [facility],[address] [address] 07/05/2021 12:04:29 07/09/2021 13:18:18 Incontinence 46746577 R32 Urge incon tinence of urine [id number] N39.41 [id number] Favio Montalvo MD _[place] [address] [facility],[address] [address] 08/21/2021 14:17:28 08/24/2021 16:43:35 Incontinence 74246966 R32 Increased frequency of urination 105019162 R35.0 [id number] Favio Montalvo MD [facility] [address] [facility],[address] [place] [address] 10/30/2021 14:41:21 11/02/2021 12:36:58 Incontinence 70671375 R32 Overactive urinary bladder [id number] N32.81 [id number] Favio Montalvo MD _[facility] [address] [facility],[address] [facility] [place] [address] 01/29/2022 11:43:59 02/04/2022 14:09:05 Overactive urinary bladder [id number] N32.81 [id number] Favio [facility] MD [facility] [address] [facility],[address] [place] [address] 10/17/2022 10:33:10 10/18/2022 16:52:40 Overactive urinary bladder [id number] N32.81 [id number] Mario Renee [facility] [address] [facility],[address] [facility] [place] [address] 01/28/2023 14:27:53 02/03/2023 13:20:07 Overactive urinary bladder [id number] N32.81 [id number] Giovanna Bolivar _[address] [place] [address] 03/26/2023 13:12:53 03/28/2023 11:30:16 Overactive urinary bladder [id number] N32.81 Health Concerns Section Related Observation LastModified by Organization Detai ls LastModified Time None Recorded Concern Status LastModified by Organization Details LastModified Time None Recorded Advance Directives Directive None Recorded Payers Encounter Date Sequence Insurance Name Policy Number Policy Butts Covered Member ID Butts Member ID Guarantor Name 10/30/2021 1 [place] [id number] Alyx Sarmiento [id number] Alyx Sarmiento 01/29/2022 1 [place] [id number] Alyx Sarmiento [id number] Alyx Sarmiento 10/17/2022 1 [place] [id number] Alyx Sarmiento [id number] Alyx Sarmiento 01/28/2023 1 [place] [id number] Alyx Sarmiento [id number] Alyx Sarmiento 03/26/2023 1 [place] [id number] Alyx Sarmiento [id number] Alyx Sarmiento Notes Date Note Type Note Provider Name and Address Organization Details Recorded Time 10/30/2021 text/html follow up gemtesa. off med for two weeks but freq/urgency came back. UA bland and PVR 295ml today. Favio Montalvo MD [address] [place] [address],[address], [address], [facility] 10/30/2021 15:09:16 01/29/2022 text/html taking gemtesa and working well, out of samples. PVR 19ml today. Favio Montalvo MD [address] [place] [address],[address], [address], [facility] 01/29/2022 12:06:07 10/17/2022 text/html follow up OAB. was on gemtesa which worked and now having more accidents. PVR 0ml today. now living a assisted care who manages meds etc. Favio Montalvo MD [address] [place] [address],[place] [address], [place], [address], [facility] 10/17/2022 11:10:30 01/28/2023 text/html follow up incontinence. tried gemtesa and now oxybutynin ER 10mg and neither worked. Mario sheth [facility] 01/28/2023 14:52:49 03/26/2023 text/html 88 YO F here for UDS testing- pt of TF Giovanna Osmel sheth [facility] 03/26/2023 15:44:35 OBGyn Episode No OBEpisode recorded.
[2024-03-05 12:49] LABS: Lactate Sepsis w/Reflex* 1.4 mmol/L (0.5-1.9)
[2024-03-05 12:58] LABS: Basophils Percent Auto 0.7 % (0.0-3.0); Eosinophils Percent Auto 2.2 % (0.0-7.0); Hematocrit 41.3 % (33.0-51.0); Immature Granulocytes Pct Auto 0.2 %; Lymphocytes Percent Auto 12.3 % (20-44); Mean Corpuscular HGB Conc 32 gm/dL (32-36); Mean Corpuscular Hemoglobin 30 pg (26-34); Mean Corpuscular Volume 97 fL (80-100); Monocytes Percent Auto 10.6 % (0.0-11.0); Platelet Count* 179 K/uL (140-440); RDW Coefficient of Variation % 15.6 % (11.5-15.5); Red Blood Count 4.27 m/uL (4.00-5.20); White Blood Count* 4.16 K/uL (4.50-11.00)
[2024-03-05 13:02] LABS: Slide Review Reflex No
[2024-03-05] MEDS: cefTRIAXone 1 GM in 0.9 % SODIUM CHLORIDE Mini-bag 100 ML IVPB (13:05)
[2024-03-05 13:10] LABS: Chloride* 100 mmol/L (96-114)
[2024-03-05 13:11] LABS: Potassium* 3.4 mmol/L (3.6-5.1); Sodium* 137 mmol/L (135-149)
[2024-03-05 13:13] LABS: Anion Gap 8 mEq/L (7-15); Carbon Dioxide* 29 mmol/L (20-32); Creatinine* 0.6 mg/dL (0.5-1.5); Est. Creatinine Clearance* 34.99; Estimated Glomerular Filt Rate 86 ml/min
[2024-03-05 13:14] LABS: Blood Urea Nitrogen* 18 mg/dL (7-30); Calcium* 8.8 mg/dL (8.4-10.6); Glucose* 146 mg/dL (60-115)
[2024-03-05 13:15] LABS: Troponin, Point-of-Care* 0.02 ng/ml (0.01-0.04)
[2024-03-05 13:51] LABS: PCR FLU A Negative PCR FLU A (Negative); PCR FLU B Negative PCR FLU B (Negative); PCR RSV Negative PCR RSV (Negative); SARS PCR* Negative SARS-CoV-2 (Negative)
== END 2024-03-05 14:44 | disposition home or self-care (01) ==
PROVIDERS: Emergency Provider Student in an Organized Health Care Education/Training Program; PCP Emergency Medicine
DX: L03.114 Cellulitis of left upper limb (principal)
CPT/HCPCS: 36415; 71046; 80048; 83605; 84484; 85025; 87040; 87631; 93005; 96365; 99284; J0696

== ENCOUNTER 2024-07-03 19:56 | Emergency (ER) | payer MEDICARE, SELFPAY ==
[2024-07-03 20:12] VITALS: BP 149/99; PULSE 97; RESP 18; TEMP 36.7; O2SAT 93; BMI 31.6
--- NOTE | 2024-07-03 20:33 | CRLHL7_ITS ---
For Patients: As a result of the Century Cures Act, medical imaging exams and procedure reports are released immediately into your electronic medical record. You may view this report before your referring provider. If you have questions, please contact your health care provider. INDICATION: Shortness of breath. TECHNIQUE: Chest PA and lateral. Comparison : 03/05/2024 and 07/11/2021. FINDINGS: There is a 3.6 cm of mass projecting upon the right upper lung. The left lung is clear. The pulmonary vasculature and pleural surfaces appear normal. There is moderate cardiomegaly. There is prominent unfolding of the thoracic aorta. There are bilateral total shoulder arthroplasties. The bony thorax appears intact. IMPRESSION: 1. There is a 3.6 cm right upper lobe lung mass. CT is suggested for further characterization. 2. Cardiomegaly. Dictated by Kaushik Garcia MD @ 07/03/2024 9:17:36 PM (Electronically Signed)
--- NOTE | 2024-07-03 20:34 | ED_ITS ---
HPI - General Adult General Chief complaint: Hypertension Stated complaint: High bp Time Seen by Provider: 07/03/24 20:07 History of Present Illness HPI narrative: Patient is a 89-year-old woman who lives at assisted living. She is here with her and daughter. Patient is Alzheimer's dementia. Her daughter received a text message [employer] stating that the patient is been increasingly hypertensive with a blood pressure in the range of 170 systolic. Patient is a nonproductive cough as a side. She has had no fevers no chills no chest pain no shortness a breath or lower extremity edema. She has otherwise been feeling fine. Related Data Home Medications ?Medication ?Instructions ?Recorded ?Confirmed coenzyme Q10 300 mg capsule 300 mg PO DAILY 11/01/21 03/05/24 cyanocobalamin (vitamin B-12) 500 500 mcg PO DAILY 11/01/21 03/05/24 mcg tablet aspirin 81 mg tablet,delayed 81 mg PO QDAY 02/05/22 03/05/24 release albuterol sulfate 90 mcg/actuation See Rx Instructions .Route 06/26/22 03/05/24 aerosol inhaler .COMPLEX PRN calcium carbonate 1,000 mg PO QDAY 08/28/22 03/05/24 cholecalciferol (vitamin D3) 25 25 mcg PO QDAY 08/28/22 03/05/24 mcg (1,000 unit) capsule donepezil 10 mg tablet 10 mg PO QDAY 11/20/23 01/27/24 iron,carbonyl 65 mg-vitamin C 125 1 tab PO QDAY 11/20/23 03/05/24 mg tablet,delayed release (Vitron-C) Previous Rx's ?Medication ?Instructions ?Recorded fluticasone fur. 200 mcg-umeclid 1 inh inhalation Q24H #60 ea 11/14/21 62.5 mcg-vilant 25 mcg inhalat.powder (Trelegy Ellipta) irbesartan 300 mg tablet 150 mg (1/2 x 300 mg) PO BID #45 11/14/21 tabs donepezil 5 mg tablet 5 mg PO QDAY #90 tabs 12/12/21 fluoxetine 10 mg capsule 10 mg PO QDAY #90 caps 09/03/22 hydrochlorothiazide 25 mg tablet 25 mg PO QAM #90 tabs 09/03/22 acetaminophen 500 mg capsule 1,000 mg (2 x 500 mg) PO Q4-6H PRN 02/13/23 pain #30 caps quetiapine 25 mg tablet 25 mg PO QHS #30 tabs 07/18/23 oxybutynin chloride 10 mg 10 mg PO QDAY #30 tabs 07/24/23 tablet,extended release 24 hr iron,carbonyl 65 mg-vitamin C 125 1 tab PO .qod #90 tabs 08/21/23 mg tablet,delayed release (Vitron-C) insulin glargine 100 unit/mL (3 10 unit (0.1 mL) subcut .HS #15 mL 11/20/23 mL) subcutaneous pen (Lantus Solostar U-100 Insulin) blood sugar diagnostic (Contour #100 ea 01/21/24 Next Test Strips) Allergies Allergy/AdvReac Type Severity Reaction Status Date / Time amlodipine Allergy Severe Rash Verified 03/18/24 12:55 azithromycin Allergy Severe Limb pain, Verified 03/18/24 12:55 diarrhea furosemide Allergy Severe Hives Verified 03/18/24 12:55 metoprolol Allergy Severe Shortness Verified 03/18/24 12:55 of breath, chest pain, low pulse rate sitagliptin Allergy Severe Lost some Verified 03/18/24 12:55 sight in left eye exenatide Allergy Intermediate Sore Verified 03/18/24 12:55 throat, diarrhea, cough, headache levofloxacin Allergy Intermediate Bruising Verified 03/18/24 12:55 clopidogrel Allergy Mild Edema Verified 03/18/24 12:55 losartan Allergy Unknown Heart Verified 03/18/24 12:55 palpitations, shortness of breath penicillin V Allergy Unknown Verified 03/18/24 12:55 insulin detemir (From Allergy Verified 03/18/24 12:55 Levemir U-100 Insulin) metformin Allergy Verified 03/18/24 12:55 naproxen Allergy Verified 03/18/24 12:55 NSAIDS (Non-Steroidal Allergy Verified 03/18/24 12:55 Anti-Inflamma lisinopril AdvReac Severe Headaches, Verified 03/18/24 12:55 heart palpitations, muscle aches pioglitazone AdvReac Severe Hip and Verified 03/18/24 12:55 arm pain carvedilol AdvReac Mild Vomiting Verified 03/18/24 12:55 simvastatin AdvReac Unknown Fatigued Verified 03/18/24 12:55 Review of Systems Status of ROS: Reports: 10 or more systems reviewed and unremarkable except as noted in History and below [facility] Medical History Living in assisted living ?Z78.9 - Other specified health status (ICD-10) Cellulitis, toe ?L03.039 - Cellulitis of unspecified toe (ICD-10) Falls ?R29.6 - Repeated falls (ICD-10) Pain in toe ?M79.676 - Pain in unspecified toe(s) (ICD-10) Iron deficiency anemia ?D50.9 - Iron deficiency anemia, unspecified (ICD-10) Dementia ?F03.90 - Unspecified dementia, unspecified severity, without behavioral disturbance, psychotic disturbance, mood disturbance, and anxiety (ICD-10) Anemia ?D64.9 - Anemia, unspecified (ICD-10) Wrist pain ?M25.539 - Pain in unspecified wrist (ICD-10) POLST (Physician Orders for Life-Sustaining Treatment) ?Z78.9 - Other specified health status (ICD-10) Visit for review of DEXA scan ?Z71.2 - Person consulting for explanation of examination or test findings (ICD-10) Rib fracture ?S22.39XA - Fracture of one rib, unspecified side, initial encounter for closed fracture (ICD-10) Atherosclerotic heart disease ?I25.10 - Atherosclerotic heart disease of [place] coronary artery without angina pectoris (ICD-10) Compression fracture Hearing loss ?H91.90 - Unspecified hearing loss, unspecified ear (ICD-10) 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 or stenosis of small artery (ICD-10) Diabetes mellitus, controlled ?E11.9 - Type 2 diabetes mellitus without complications (ICD-10) Encounter for medication review ?Z79.899 - Other mast maker (current) drug therapy (ICD-10) Unintentional weight loss ?R63.4 - Abnormal weight loss (ICD-10) Hyperlipidemia ?E78.5 - Hyperlipidemia, unspecified (ICD-10) Depression ?F32.A - Depression, unspecified (ICD-10) Encounter for screening for severe acute respiratory syndrome coronavirus 2 (SARS-CoV-2) infection ?Z11.52 - Encounter for screening for COVID-19 (ICD-10) Edema ?R60.9 - Edema, unspecified (ICD-10) Diabetes mellitus ?E11.9 - Type 2 diabetes mellitus without complications (ICD-10) Surgical History 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 - Presence of right artificial shoulder joint (ICD-10) 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 (09/26/11) ?Z90.710 - Acquired absence of both cervix and uterus (ICD-10) ?Z90.722 - Acquired absence of ovaries, bilateral (ICD-10) ?Z90.79 - Acquired absence of other genital organ(s) (ICD-10) Status post reverse total replacement of left shoulder ?Z96.612 - Presence of left artificial shoulder joint (ICD-10) 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) ?Z96.651 - Presence of right artificial knee joint (ICD-10) History of partial surgical removal of colon (09/26/11) ?Z90.49 - Acquired absence of other specified parts of digestive tract (ICD- 10) History of colonoscopy ?Z98.890 - Other specified postprocedural states (ICD-10) History of cholecystectomy (09/26/11) ?Z90.49 - Acquired absence of other specified parts of digestive tract (ICD- 10) Family History Mother Family history of stroke or transient ischemic attack in mother Social History Narrative: advance directive in chart- 01/25/15 former cigarette smoker Smoking Status: Former smoker Do you use any of these nicotine containing products: None Second hand tobacco smoke exposure: No How often do you have a drink containing alcohol: 2-4 times a month How often do you have six or more drinks on one occasion: Never AUDIT-C Alcohol total score: 2 Non-prescribed substance use: denies use Exam Narrative: Exam Narrative: EXAM GENERAL: Patient appears comfortable and well. EYES: No scleral icterus. LYMPH: No supraclavicular or cervical lymphadenopathy. SKIN: Visible skin seen during exam normal or with benign process only. EXT: No dependent lower extremity pedal edema. HEART: Regular rate and rhythm with no murmurs, rubs, or gallops. LUNGS: Clear to auscultation bilaterally with no crackles or wheezes. ABD: Soft, non tender, non distended. PSYCH: Good eye contact, speech is not pressured. Const: Vital Signs, click to edit/add: Vital Signs - 24 hr 07/03/24 20:12 Temperature 98.1 F Pulse Rate [Right Pulse Oximeter] 97 Respiratory Rate 18 Blood Pressure [Ri ght Upper Arm] 149/99 H Pulse Oximetry 93 Oxygen Delivery Me thod Room Air Course Course ED Course: Patient seen examined. Reassurance offered for blood pressure which is stable here. I did send off a chest x-ray and triple swab. Vital Signs Vital signs: Initial Vital Signs Temperature 98.1 F 07/03/24 20:12 Temperature Source Temporal Artery Scan 07/03/24 20:12 Pulse Rate 97 07/03/24 20:12 Pulse Rhythm Regular 07/03/24 20:12 Respiratory Rate 18 07/03/24 20:12 Blood Pressure 149/99 H 07/03/24 20:12 Blood Pressure Mean 115 H 07/03/24 20:12 Blood Pressure Position Sitting 07/03/24 20:12 Pulse Oximetry 93 07/03/24 20:12 Oxygen Delivery Method Room Air 07/03/24 20:12 Vital Signs Temperature 98.1 F 07/03/24 20:12 Pulse Rate 97 07/03/24 20:12 Respiratory Rate 18 07/03/24 20:12 Blood Pressure 149/99 H 07/03/24 20:12 Pulse Oximetry 93 07/03/24 20:12 Oxygen Delivery Method Room Air 07/03/24 20:12 Temperature 98.1 F 07/03/24 20:12 Pulse Rate 97 07/03/24 20:12 Respiratory Rate 18 07/03/24 20:12 Blood Pressure 149/99 H 07/03/24 20:12 Pulse Oximetry 93 07/03/24 20:12 Oxygen Delivery Method Room Air 07/03/24 20:12 Medical Decision Making MDM Narrative Medical decision making narrative: Patient presents with elevated blood pressures at home with reassuring blood pressures here. I did explain that we often times will make any intervention the ER with comes blood pressure of this mild elevation. I did workup for cough and find other he does have RSV and I did recommend symptomatic treatment. Also noted on chest x-rays a 3 cm lung mass. I did explain this to the family and recommended outpatient CT scan. Otherwise reassurance offered today Tylenol Motrin rest and fluids. Lab Data Labs: Lab Results 07/03/24 Range/Units 20:35 SARS-CoV-2 (PCR) Negative SARS-CoV-2 (Negative) Influenza Type A (PCR) Negative PCR FLU A (Negative) Influenza Type B (PCR) Negative PCR FLU B (Negative) RSV (PCR) POSITIVE PCR RSV A (Negative) Discharge Plan Discharge Clinical Impression: Respiratory syncytial virus (RSV) Patient Disposition: Home w/ Parent or Adult Condition: Stable Additional Instructions: Continue symptomatic care for cough. CT of the chest as an outpatient 3 year doctor's office to evaluate findings on chest x-ray. Follow-up with your doctor as needed. Activity Level: No Restrictions Discharge Diet: Regular Prescriptions: No Action irbesartan 300 mg tablet 150 mg PO BID Qty: 45 1RF Trelegy Ellipta 200-62.5-25 mcg blister with device 1 inh inhalation Q24H Qty: 60 2RF cholecalciferol (vitamin D3) 25 mcg (1,000 unit) capsule 25 mcg PO QDAY calcium carbonate 500 mg calcium (1,250 mg) tablet,chewable 1,000 mg PO QDAY coenzyme Q10 300 mg capsule 300 mg PO DAILY cyanocobalamin (vitamin B-12) 500 mcg tablet 500 mcg PO DAILY aspirin 81 mg tablet,delayed release (DR/EC) 81 mg PO QDAY albuterol sulfate 90 mcg/actuation HFA aerosol inhaler See Rx Instructions .ROUTE .COMPLEX PRN Dose Instruction: INHALE 2 PUFFS BY MOUTH EVERY 4 HOURS NEEDED FOR WHEEZING AND DIFFICULT BREATHING Rx Instructions: INHALE 2 PUFFS BY MOUTH EVERY 4 HOURS NEEDED FOR WHEEZING AND DIFFICULT BREATHING PRN; donepezil 10 mg tablet 10 mg PO QDAY Vitron-C 65 mg iron- 125 mg tablet,delayed release (DR/EC) 1 tab PO QDAY insulin glargine [Lantus Solostar U-100 Insulin] 100 unit/mL (3 mL) insulin pen 10 unit subcut .HS Qty: 15 6RF Rx Instructions: 10 units once nightly donepezil 5 mg tablet 5 mg PO QDAY Qty: 90 3RF fluoxetine 10 mg capsule 10 mg PO QDAY Qty: 90 1RF hydrochlorothiazide 25 mg tablet 25 mg PO QAM Qty: 90 3RF acetaminophen 500 mg capsule 1,000 mg PO Q4-6H MDD 3000 mg PRN (Reason: pain) Qty: 30 3RF quetiapine 25 mg tablet 25 mg PO QHS Qty: 30 2RF oxybutynin chloride 10 mg tablet extended release 24hr 10 mg PO QDAY Qty: 30 1RF Vitron-C 65 mg iron- 125 mg tablet,delayed release (DR/EC) 1 tab PO .qod Qty: 90 1RF (DME) Contour Next Test Strips Strip See Rx Instructions .Route Qty: 100 3RF Rx Instructions: Use to test blood glucose daily Follow Up/Referrals: Darlene Mendoza MD [Staff Physician] - Stand Alone Forms: [facility] Info Instructions
--- OUTSIDE RECORDS SUMMARY | 2024-07-03 20:47 | XMS_ITS | CCD ---
Author Name Linda Vivas Address [address] [facility] [address] [place] [address] Phone Organization [facility] Phone Care Team Providers Care Procurement Assistant Name Role Phone Teresa Vivas Primary Care Provider Un available Unavailable Chronic Care Management Unavaila ble Summary Purpose DataExchange Insurance Providers Payer name Policy type / Coverage type Covered republican ID Effective Begin Date Effective End Date BCBS of [facility] Medicare Risk [id number] Unknown Un known Family history Mother Diagnosis Age At Onset Stroke Unknown Social History Social History Element Codes Description Effec tive Dates Marital status Unknown 04/13/2024 Marital status Unknown 04/13/2024 Living arrangements Unknown Assisted Living 04/[address]: 5334019 Former smoker 04/[address]: 0306127 Former smoker 04/[address]: 931078727 No Alcohol Consum ption 04/13/[address]: 126283 Currently drin ks alcohol 04/13/2024 Sexually Active? [...] No Inactive Date A ctive SIMVASTATIN RxNorm: 63504 04/13/2024 No Inactive D ate Active Penicillin Unknown 04/13/2024 No Inactive Date A ctive CLOPIDOGREL Unknown 03/23/2024 No Inactive Date Active naproxen RxNorm: 7258 04/13/2024 No Inactive Date Active levofloxacin RxNorm: 46021 03/23/2024 No Inactive Date Active Levemir Unknown 03/23/2024 No Inactive Date Ac tive metformin RxNorm: 938222 04/13/2024 No Inactive Da te Active ESTROGENS Unknown 03/23/2024 No Inactive Date Ac tive Atenolol RxNorm: 1202 04/13/2024 No Inactive Date Active metoprolol succinate RxNorm: 405866 03/23/2024 No Inactive Date Active Januvia RxNorm: 385443 04/13/2024 No Inactive Da te Active furosemide RxNorm: 4603 03/23/2024 No Inactive Balaji e Active azithromycin RxNorm: 97896 04/13/2024 No Inactive Date Active losartan RxNorm: 317807 04/13/2024 No Inactive Da te Active NSAIDS Unknown 03/23/2024 No Inactive Date Ac tive Amlodipine RxNorm: 571201 04/13/2024 No Inactive D ate Active LISINOPRIL RxNorm: 12170 04/13/2024 No Inactive Da te Active PIOGLITAZONE DERIVATIVES Unknown 04/13/2024 No I nactive Date Active Problems Condition Codes Effective Dates Condition 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 ICD-9: 311 05/04/2024 Active Pressure injury of left buttock, stage [address]: 67618532738527 ICD-10: L89.322 ICD-9: 707.05 05/04/2024 Active Primary hypertension ICD-10: I10 ICD-9: 401.9 05/04/2024 Active Type 2 diabetes mellitus without complication, unspecified whether jail insulin use ICD-10: E11.9 ICD-9: 250.00 05/04/2024 Active Advanced care planning - to document end of life discussions Unknown 04/13/2024 Active Diabetes mellitus Type 2 Unknown 04/13/2024 Act floyd Advance care planning SNOMED CT: 1630746 01 ICD-10: Z71.89 ICD-9: V65.49 04/13/2024 Active Atherosclerosis of coronary artery of [place] heart without angina pectoris, unspecified vessel or lesion type SNOMED CT: 109428251 ICD-10: I25.10 ICD-9: 414.01 04/13/2024 Active Atrial fibrillation, unspecified type SNOMED CT: 36199037 ICD-10: I48.91 ICD-9: 427.31 04/13/2024 Active Chronic heart failure with preserved ejection fraction SNOMED CT: 856985657 ICD-10: I50.32 ICD-9: 428.9 04/13/2024 Active Chronic obstructive pulmonary disease, unspecified COPD type SNOMED CT: 91681619 ICD-10: J44.9 ICD-9: 496 04/13/2024 Active Compression fracture of L1 vertebra, sequela SNOMED CT: 982411396 ICD-10: S32.010S ICD-9: 905.1 04/13/2024 Active Dementia in other diseases classified elsewhere, unspecified severity, without behavioral disturbance, psychotic disturbance, mood disturbance, and anxiety ICD-10: F02.80 04/13/[address]: 969735540 ICD-10: K57.90 ICD-9: 562.10 04/13/2024 Active History of breast cancer SNOMED CT: 4290 87694 ICD-10: Z85.3 ICD-9: V10.3 04/13/2024 Active History of melanoma SNOMED CT: 388784667 ICD-10: Z85.820 ICD-9: V10.82 04/13/2024 Active History of TIA (transient ischemic attack) SNOMED CT: 369964246 ICD-10: Z86.73 ICD-9: V12.54 04/13/2024 Active Hyperlipidemia, unspecified hyperlipidemia type SNOMED CT: 10944885 ICD-10: E78.5 ICD-9: 272.4 04/13/2024 Active Iron deficiency anemia, unspecified iron deficiency anemia type SNOMED CT: 30356868 ICD-10: D50.9 ICD-9: 280.9 04/13/2024 Active Mixed Alzheimer and vascular dementia SNOMED CT: 15596113715343 ICD-10: G30.9 ICD-9: 331.0 04/13/2024 Active CAMILO (obstructive sleep apnea) SNOMED CT: 41025837 ICD-10: G47.33 ICD-9: 327.23 04/13/2024 Active Osteopenia, unspecified location SNOMED CT: 287634876 ICD-10: M85.80 ICD-9: 733.90 04/13/2024 Active Statin intolerance SNOMED CT: 064863425 ICD-10: Z78.9 ICD-9: 995.27 04/13/2024 Active Unintentional weight loss SNOMED CT: 448 731101 ICD-10: R63.4 ICD-9: 783.21 04/13/2024 Active Unsteady gait SNOMED CT: 08279185 ICD-10: R26.81 ICD-9: 781.2 04/13/2024 Active Urinary incontinence, unspecified type SNOMED CT: 640066119 ICD-10: R32 ICD-9: 788.30 04/13/2024 Active Vascular dementia, unspecified severity, without behavioral disturbance, psychotic disturbance, mood disturbance, and anxiety ICD-10: F01.50 04/13/2024 Active Venous insufficiency of both lower extremities SNOMED CT: 418814651 ICD-10: I87.2 ICD-9: 459.81 04/13/2024 Active Medications Medication Codes Instructions Start Date Stop Date Status Fill Instructions Lantus Solostar U-100 Insulin 100 unit/mL (3 mL) subcutaneous pen RxNorm: 692478 Unit(s) Subcutaneous prime en with 2 units, then inject 8 units SQ QD at bedtime 05/18/19 25 026 Active potassium chloride ER 10 mEq tablet,extended release RxNorm: 859780 Take 1 Tablet(s) Oral QD 04/12/19 25 No Stop Date Active fluoxetine 10 mg capsule RxNorm: 859530 Take 1 Capsule(s) Oral QD 04/12/19 25 No Stop Date Active hydrochlorothiazide 25 mg tablet RxNorm: 390363 Take 1 Tablet(s) Oral QD 04/12/19 25 No Stop Date Active Oyster Shell Calcium 500 mg (as calcium carbonate 1,250 mg) tablet RxNorm: 319053 Take 1 Tablet(s) Oral QD 04/12/19 25 No Stop Date Active Co Q-10 200 mg capsule RxNorm: 494685 Capsule(s) Oral take 1 cap po daily with 100mg tab to =300mg daily 04/12/19 25 No Stop Date Active Co Q-10 100 mg capsule RxNorm: 534293 Capsule(s) Oral take 1 cap daily along with 200mg tab to =300mg daily 04/12/19 25 No Stop Date Active quetiapine 25 mg tablet RxNorm: 861608 Take 1 Tablet(s) Oral QHS every night at bedtime 04/12/19 25 No Stop Date Active Vitamin D3 25 mcg (1,000 unit) tablet RxNorm: 709112 Take 1 Tablet(s) Oral QD 04/12/19 25 No Stop Date Active acetaminophen 500 mg tablet RxNorm: 452657 Take 2 Tablet(s) Oral TID as needed 04/12/19 25 No Stop Date Active donepezil 10 mg tablet RxNorm: 221499 Take 1 Tablet(s) Oral QHS every night at bedtime 04/12/19 25 No Stop Date Active cyanocobalamin (vit B-12) 500 mcg tablet RxNorm: 651464 Take 1 Tablet(s) Oral QD 04/12/19 25 No Stop Date Active oxybutynin chloride ER 10 mg tablet,extended release 24 hr RxNorm: 364661 Take 1 Tablet(s) Oral QPM every evening 04/12/19 25 No Stop Date Active irbesartan 150 mg tablet RxNorm: 047629 Take 1 Tablet(s) Oral BID 04/12/19 25 No Stop Date Active Trelegy Ellipta 200 mcg-62.5 mcg-25 mcg powder for inhalation RxNorm: 1389159 Inhale 1 Puff(s) Inhalation every 24 hours 04/12/19 25 No Stop Date Active Vitron-C 65 mg iron-125 mg tablet,delayed release RxNorm: 5002775 Take 1 Tablet(s) Oral QOD every other day 04/12/19 25 No Stop Date Active Eliquis 5 mg tablet RxNorm: 2023418 Take 1 Tablet(s) Oral BID 04/12/19 25 025 Inactive Lantus Solostar U-100 Insulin 100 unit/mL (3 mL) subcutaneous pen RxNorm: 775116 Unit(s) Subcutaneous prime en with 2 units, [...] Code Result Date Service Location Urine Culture 69179 URINE CULTURE 41475-3 SEE RESU LTS BELOW 06/04/19 Unknown UA with Microscopic 19945 COLOR Light Yellow 06/01/19 Unknown UA with Microscopic 66401 Appearance Slightly Cloudy 06/01/19 Unknown UA with Microscopic 15891 GLUCOSE, URINE Negative mg/dL 06/01/19 Unknown UA with Microscopic 06504 BILIRUBIN, URINE Negative 06/01/19 Unknown UA with Microscopic 39725 Ketones Urine Negative mg/dL 06/01/19 Unknown UA with Microscopic 91513 Specific [place] Urine 1.012 06/01/19 Unknown UA with Microscopic 14441 BLOOD, URINE Negative 06/01/19 Unknown UA with Microscopic 49785 pH Urine 6.5 06/01/19 Unknown UA with Microscopic 50698 Protein urine Negative mg/dL 06/01/19 Unknown UA with Microscopic 91881 UROBILINOGEN IRIS Normal mg/dL 06/01/19 Unknown UA with Microscopic 51154 Nitrites Positive 03/24/20 25 Unknown UA with Microscopic 80249 LEUK ESTERASE Trace 06/01/19 25 Unknown UA with Microscopic 25166 Bacteria Few /HPF 06/01/19 25 Unknown UA with Microscopic 62697 WBC CLUMPS 6690-2 Present /HPF 06/01/19 Unknown UA with Microscopic 26521 Mucus Urine Present /LPF 06/01/19 Unknown UA with Microscopic 43850 RBC Urine <1 /HPF 06/01/19 Unknown UA with Microscopic 65773 SQUAMOUS EPITHELIAL 2 /HPF 06/01/19 25 Unknown UA with Microscopic 21432 WBC Urine 64321-3 26 /HPF 06/01/19 Unknown Functional Status Functional [...] Codes Status Date Appointment: Michela Talbot WPtel: [address] [place], [place] [id number] ZOO KEEPER 04/13/2024 Instructions Comment Date Alyx resides at [facility] since about 2021. Previously lived independently in [place]. . Has one daughter Maggie who is involved in healthcare. PMH: History of breast cancer and melanoma, mixed dementia, depression, CAD, HLD, history of CVA/TIA, compression fx of L1 vertebrae, urinary incontinence, hearing loss, osteopeniaPrimary contact: Maggie Gallegos (Daughter)Code Status: DNR/SelectLab Schedule: Mar/SepSpecialists: [facility] ([facility]), Cardiology [facility] (MD Echo) 06/11/2024
--- OUTSIDE RECORDS SUMMARY | 2024-07-03 20:47 | XMS_ITS | CCD ---
Author Name Linda Vivas Address [address] [facility] [address] [place] [address] Phone Organization [facility] Phone Care Team Providers Care Plaster Mixer Name Role Phone Teresa Vivas Primary Care Provider Un available Unavailable Chronic Care Management Unavaila ble Summary Purpose DataExchange Insurance Providers Payer name Policy type / Coverage type Covered alliance party ID Effective Begin Date Effective End Date BCBS of [facility] Medicare Risk [id number] Unknown Un known Family history Mother Diagnosis Age At Onset Stroke Unknown Social History Social History Element Codes Description Effec tive Dates Marital status Unknown 04/13/2024 Marital status Unknown 04/13/2024 Living arrangements Unknown Assisted Living 04/[address]: 8556117 Former smoker 04/[address]: 6770592 Former smoker 04/[address]: 674015914 No Alcohol Consum ption 04/13/[address]: 005743 Currently drin ks alcohol 04/13/2024 Sexually Active? [...] No Inactive Date A ctive SIMVASTATIN RxNorm: 50511 04/13/2024 No Inactive D ate Active Penicillin Unknown 04/13/2024 No Inactive Date A ctive CLOPIDOGREL Unknown 03/23/2024 No Inactive Date Active naproxen RxNorm: 7258 04/13/2024 No Inactive Date Active levofloxacin RxNorm: 16610 03/23/2024 No Inactive Date Active Levemir Unknown 03/23/2024 No Inactive Date Ac tive metformin RxNorm: 650032 04/13/2024 No Inactive Da te Active ESTROGENS Unknown 03/23/2024 No Inactive Date Ac tive Atenolol RxNorm: 1202 04/13/2024 No Inactive Date Active metoprolol succinate RxNorm: 108269 03/23/2024 No Inactive Date Active Januvia RxNorm: 520767 04/13/2024 No Inactive Da te Active furosemide RxNorm: 4603 03/23/2024 No Inactive Balaji e Active azithromycin RxNorm: 77881 04/13/2024 No Inactive Date Active losartan RxNorm: 428309 04/13/2024 No Inactive Da te Active NSAIDS Unknown 03/23/2024 No Inactive Date Ac tive Amlodipine RxNorm: 767550 04/13/2024 No Inactive D ate Active LISINOPRIL RxNorm: 47565 04/13/2024 No Inactive Da te Active PIOGLITAZONE DERIVATIVES Unknown 04/13/2024 No I nactive Date Active Problems Condition Codes Effective Dates Condition 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 ICD-9: 311 05/04/2024 Active Pressure injury of left buttock, stage [address]: 11144121619215 ICD-10: L89.322 ICD-9: 707.05 05/04/2024 Active Primary hypertension ICD-10: I10 ICD-9: 401.9 05/04/2024 Active Type 2 diabetes mellitus without complication, unspecified whether jail insulin use ICD-10: E11.9 ICD-9: 250.00 05/04/2024 Active Advanced care planning - to document end of life discussions Unknown 04/13/2024 Active Diabetes mellitus Type 2 Unknown 04/13/2024 Act floyd Advance care planning SNOMED CT: 0499697 01 ICD-10: Z71.89 ICD-9: V65.49 04/13/2024 Active Atherosclerosis of coronary artery of [place] heart without angina pectoris, unspecified vessel or lesion type SNOMED CT: 681981075 ICD-10: I25.10 ICD-9: 414.01 04/13/2024 Active Atrial fibrillation, unspecified type SNOMED CT: 30077134 ICD-10: I48.91 ICD-9: 427.31 04/13/2024 Active Chronic heart failure with preserved ejection fraction SNOMED CT: 770372667 ICD-10: I50.32 ICD-9: 428.9 04/13/2024 Active Chronic obstructive pulmonary disease, unspecified COPD type SNOMED CT: 77002167 ICD-10: J44.9 ICD-9: 496 04/13/2024 Active Compression fracture of L1 vertebra, sequela SNOMED CT: 254664216 ICD-10: S32.010S ICD-9: 905.1 04/13/2024 Active Dementia in other diseases classified elsewhere, unspecified severity, without behavioral disturbance, psychotic disturbance, mood disturbance, and anxiety ICD-10: F02.80 04/13/[address]: 651662581 ICD-10: K57.90 ICD-9: 562.10 04/13/2024 Active History of breast cancer SNOMED CT: 4290 95279 ICD-10: Z85.3 ICD-9: V10.3 04/13/2024 Active History of melanoma SNOMED CT: 947278515 ICD-10: Z85.820 ICD-9: V10.82 04/13/2024 Active History of TIA (transient ischemic attack) SNOMED CT: 438643221 ICD-10: Z86.73 ICD-9: V12.54 04/13/2024 Active Hyperlipidemia, unspecified hyperlipidemia type SNOMED CT: 49570731 ICD-10: E78.5 ICD-9: 272.4 04/13/2024 Active Iron deficiency anemia, unspecified iron deficiency anemia type SNOMED CT: 12990871 ICD-10: D50.9 ICD-9: 280.9 04/13/2024 Active Mixed Alzheimer and vascular dementia SNOMED CT: 58863644063465 ICD-10: G30.9 ICD-9: 331.0 04/13/2024 Active CAMILO (obstructive sleep apnea) SNOMED CT: 97038966 ICD-10: G47.33 ICD-9: 327.23 04/13/2024 Active Osteopenia, unspecified location SNOMED CT: 794115602 ICD-10: M85.80 ICD-9: 733.90 04/13/2024 Active Statin intolerance SNOMED CT: 258642516 ICD-10: Z78.9 ICD-9: 995.27 04/13/2024 Active Unintentional weight loss SNOMED CT: 448 272879 ICD-10: R63.4 ICD-9: 783.21 04/13/2024 Active Unsteady gait SNOMED CT: 46156599 ICD-10: R26.81 ICD-9: 781.2 04/13/2024 Active Urinary incontinence, unspecified type SNOMED CT: 757664698 ICD-10: R32 ICD-9: 788.30 04/13/2024 Active Vascular dementia, unspecified severity, without behavioral disturbance, psychotic disturbance, mood disturbance, and anxiety ICD-10: F01.50 04/13/2024 Active Venous insufficiency of both lower extremities SNOMED CT: 792336419 ICD-10: I87.2 ICD-9: 459.81 04/13/2024 Active Medications Medication Codes Instructions Start Date Stop Date Status Fill Instructions Lantus Solostar U-100 Insulin 100 unit/mL (3 mL) subcutaneous pen RxNorm: 096182 Unit(s) Subcutaneous prime en with 2 units, then inject 8 units SQ QD at bedtime 05/18/19 25 026 Active potassium chloride ER 10 mEq tablet,extended release RxNorm: 752780 Take 1 Tablet(s) Oral QD 04/12/19 25 No Stop Date Active fluoxetine 10 mg capsule RxNorm: 563677 Take 1 Capsule(s) Oral QD 04/12/19 25 No Stop Date Active hydrochlorothiazide 25 mg tablet RxNorm: 966441 Take 1 Tablet(s) Oral QD 04/12/19 25 No Stop Date Active Oyster Shell Calcium 500 mg (as calcium carbonate 1,250 mg) tablet RxNorm: 400411 Take 1 Tablet(s) Oral QD 04/12/19 25 No Stop Date Active Co Q-10 200 mg capsule RxNorm: 595275 Capsule(s) Oral take 1 cap po daily with 100mg tab to =300mg daily 04/12/19 25 No Stop Date Active Co Q-10 100 mg capsule RxNorm: 827508 Capsule(s) Oral take 1 cap daily along with 200mg tab to =300mg daily 04/12/19 25 No Stop Date Active quetiapine 25 mg tablet RxNorm: 767557 Take 1 Tablet(s) Oral QHS every night at bedtime 04/12/19 25 No Stop Date Active Vitamin D3 25 mcg (1,000 unit) tablet RxNorm: 237737 Take 1 Tablet(s) Oral QD 04/12/19 25 No Stop Date Active acetaminophen 500 mg tablet RxNorm: 954991 Take 2 Tablet(s) Oral TID as needed 04/12/19 25 No Stop Date Active donepezil 10 mg tablet RxNorm: 934198 Take 1 Tablet(s) Oral QHS every night at bedtime 04/12/19 25 No Stop Date Active cyanocobalamin (vit B-12) 500 mcg tablet RxNorm: 699453 Take 1 Tablet(s) Oral QD 04/12/19 25 No Stop Date Active oxybutynin chloride ER 10 mg tablet,extended release 24 hr RxNorm: 890228 Take 1 Tablet(s) Oral QPM every evening 04/12/19 25 No Stop Date Active irbesartan 150 mg tablet RxNorm: 451566 Take 1 Tablet(s) Oral BID 04/12/19 25 No Stop Date Active Trelegy Ellipta 200 mcg-62.5 mcg-25 mcg powder for inhalation RxNorm: 5872436 Inhale 1 Puff(s) Inhalation every 24 hours 04/12/19 25 No Stop Date Active Vitron-C 65 mg iron-125 mg tablet,delayed release RxNorm: 9372701 Take 1 Tablet(s) Oral QOD every other day 04/12/19 25 No Stop Date Active Eliquis 5 mg tablet RxNorm: 7143464 Take 1 Tablet(s) Oral BID 04/12/19 25 025 Inactive Lantus Solostar U-100 Insulin 100 unit/mL (3 mL) subcutaneous pen RxNorm: 530780 Unit(s) Subcutaneous prime en with 2 units, [...] Code Result Date Service Location Urine Culture [id number] URINE CULTURE 14398-4 SEE RESU LTS BELOW 06/04/19 Unknown UA with Microscopic 80441 COLOR Light Yellow 06/01/19 Unknown UA with Microscopic 74255 Appearance Slightly Cloudy 06/01/19 Unknown UA with Microscopic 74702 GLUCOSE, URINE Negative mg/dL 06/01/19 Unknown UA with Microscopic 66403 BILIRUBIN, URINE Negative 06/01/19 Unknown UA with Microscopic 96766 Ketones Urine Negative mg/dL 06/01/19 Unknown UA with Microscopic 52979 Specific [place] Urine 1.012 06/01/19 Unknown UA with Microscopic 03384 BLOOD, URINE Negative 06/01/19 Unknown UA with Microscopic 55685 pH Urine 6.5 06/01/19 Unknown UA with Microscopic 55096 Protein urine Negative mg/dL 06/01/19 Unknown UA with Microscopic 41477 UROBILINOGEN IRIS Normal mg/dL 06/01/19 Unknown UA with Microscopic 88529 Nitrites Positive 03/24/20 25 Unknown UA with Microscopic 58222 LEUK ESTERASE Trace 06/01/19 25 Unknown UA with Microscopic 91005 Bacteria Few /HPF 06/01/19 25 Unknown UA with Microscopic 51954 WBC CLUMPS 6690-2 Present /HPF 06/01/19 Unknown UA with Microscopic 80434 Mucus Urine Present /LPF 06/01/19 Unknown UA with Microscopic 82230 RBC Urine <1 /HPF 06/01/19 Unknown UA with Microscopic 11056 SQUAMOUS EPITHELIAL 2 /HPF 06/01/19 25 Unknown UA with Microscopic 92567 WBC Urine 14391-8 26 /HPF 06/01/19 Unknown Functional Status Functional [...] Codes Status Date Appointment: Michela Talbot WPtel: [address] [place], [place] [id number] NETWORK 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 Previously lived independently in [place]. . Has one daughter Maggie who is involved in healthcare. PMH: History of breast cancer and melanoma, mixed dementia, depression, CAD, HLD, history of CVA/TIA, compression fx of L1 vertebrae, urinary incontinence, hearing loss, osteopeniaPrimary contact: Maggie Gallegos (Daughter)Code Status: DNR/SelectLab Schedule: Mar/SepSpecialists: [facility] (Q6M), Cardiology [facility] (MD Echo) 06/11/2024
--- OUTSIDE RECORDS SUMMARY | 2024-07-03 20:47 | XMS_ITS | CCD ---
Author Name Linda Vivas Address [address] [facility] [address] [place] [address] Phone Organization [facility] Phone Care Team Providers Care Fatback Trimmer Name Role Phone Teresa Vivas Primary Care Provider Un available Unavailable Chronic Care Management Unavaila ble Summary Purpose DataExchange Insurance Providers Payer name Policy type / Coverage type Covered republican ID Effective Begin Date Effective End Date BCBS of [facility] Medicare Risk [id number] Unknown Un known Family history Mother Diagnosis Age At Onset Stroke Unknown Social History Social History Element Codes Description Effec tive Dates Marital status Unknown 04/13/2024 Marital status Unknown 04/13/2024 Living arrangements Unknown Assisted Living 04/[address]: 7377508 Former smoker 04/[address]: 6205422 Former smoker 04/[address]: 907113257 No Alcohol Consum ption 04/13/[address]: 218829 Currently drin ks alcohol 04/13/2024 Sexually Active? [...] No Inactive Date A ctive SIMVASTATIN RxNorm: 70371 04/13/2024 No Inactive D ate Active Penicillin Unknown 04/13/2024 No Inactive Date A ctive CLOPIDOGREL Unknown 03/23/2024 No Inactive Date Active naproxen RxNorm: 7258 04/13/2024 No Inactive Date Active levofloxacin RxNorm: 26529 03/23/2024 No Inactive Date Active Levemir Unknown 03/23/2024 No Inactive Date Ac tive metformin RxNorm: 734716 04/13/2024 No Inactive Da te Active ESTROGENS Unknown 03/23/2024 No Inactive Date Ac tive Atenolol RxNorm: 1202 04/13/2024 No Inactive Date Active metoprolol succinate RxNorm: 077591 03/23/2024 No Inactive Date Active Januvia RxNorm: 033170 04/13/2024 No Inactive Da te Active furosemide RxNorm: 4603 03/23/2024 No Inactive Balaji e Active azithromycin RxNorm: 96154 04/13/2024 No Inactive Date Active losartan RxNorm: 456811 04/13/2024 No Inactive Da te Active NSAIDS Unknown 03/23/2024 No Inactive Date Ac tive Amlodipine RxNorm: 759566 04/13/2024 No Inactive D ate Active LISINOPRIL RxNorm: 44925 04/13/2024 No Inactive Da te Active PIOGLITAZONE DERIVATIVES Unknown 04/13/2024 No I nactive Date Active Problems Condition Codes Effective Dates Condition 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 ICD-9: 311 05/04/2024 Active Pressure injury of left buttock, stage [address]: 54525151032399 ICD-10: L89.322 ICD-9: 707.05 05/04/2024 Active Primary hypertension ICD-10: I10 ICD-9: 401.9 05/04/2024 Active Type 2 diabetes mellitus without complication, unspecified whether prison insulin use ICD-10: E11.9 ICD-9: 250.00 05/04/2024 Active Advanced care planning - to document end of life discussions Unknown 04/13/2024 Active Diabetes mellitus Type 2 Unknown 04/13/2024 Act floyd Advance care planning SNOMED CT: 8353787 01 ICD-10: Z71.89 ICD-9: V65.49 04/13/2024 Active Atherosclerosis of coronary artery of [place] heart without angina pectoris, unspecified vessel or lesion type SNOMED CT: 336466803 ICD-10: I25.10 ICD-9: 414.01 04/13/2024 Active Atrial fibrillation, unspecified type SNOMED CT: 02518512 ICD-10: I48.91 ICD-9: 427.31 04/13/2024 Active Chronic heart failure with preserved ejection fraction SNOMED CT: 789871095 ICD-10: I50.32 ICD-9: 428.9 04/13/2024 Active Chronic obstructive pulmonary disease, unspecified COPD type SNOMED CT: 09848195 ICD-10: J44.9 ICD-9: 496 04/13/2024 Active Compression fracture of L1 vertebra, sequela SNOMED CT: 269944337 ICD-10: S32.010S ICD-9: 905.1 04/13/2024 Active Dementia in other diseases classified elsewhere, unspecified severity, without behavioral disturbance, psychotic disturbance, mood disturbance, and anxiety ICD-10: F02.80 04/13/[address]: 135355348 ICD-10: K57.90 ICD-9: 562.10 04/13/2024 Active History of breast cancer SNOMED CT: 4290 95222 ICD-10: Z85.3 ICD-9: V10.3 04/13/2024 Active History of melanoma SNOMED CT: 563705870 ICD-10: Z85.820 ICD-9: V10.82 04/13/2024 Active History of TIA (transient ischemic attack) SNOMED CT: 129732183 ICD-10: Z86.73 ICD-9: V12.54 04/13/2024 Active Hyperlipidemia, unspecified hyperlipidemia type SNOMED CT: 91962058 ICD-10: E78.5 ICD-9: 272.4 04/13/2024 Active Iron deficiency anemia, unspecified iron deficiency anemia type SNOMED CT: 74310414 ICD-10: D50.9 ICD-9: 280.9 04/13/2024 Active Mixed Alzheimer and vascular dementia SNOMED CT: 77875479883978 ICD-10: G30.9 ICD-9: 331.0 04/13/2024 Active CAMILO (obstructive sleep apnea) SNOMED CT: 37129770 ICD-10: G47.33 ICD-9: 327.23 04/13/2024 Active Osteopenia, unspecified location SNOMED CT: 410467020 ICD-10: M85.80 ICD-9: 733.90 04/13/2024 Active Statin intolerance SNOMED CT: 361273709 ICD-10: Z78.9 ICD-9: 995.27 04/13/2024 Active Unintentional weight loss SNOMED CT: 448 899064 ICD-10: R63.4 ICD-9: 783.21 04/13/2024 Active Unsteady gait SNOMED CT: 54676420 ICD-10: R26.81 ICD-9: 781.2 04/13/2024 Active Urinary incontinence, unspecified type SNOMED CT: 844372398 ICD-10: R32 ICD-9: 788.30 04/13/2024 Active Vascular dementia, unspecified severity, without behavioral disturbance, psychotic disturbance, mood disturbance, and anxiety ICD-10: F01.50 04/13/2024 Active Venous insufficiency of both lower extremities SNOMED CT: 320782920 ICD-10: I87.2 ICD-9: 459.81 04/13/2024 Active Medications Medication Codes Instructions Start Date Stop Date Status Fill Instructions Lantus Solostar U-100 Insulin 100 unit/mL (3 mL) subcutaneous pen RxNorm: 664872 Unit(s) Subcutaneous prime en with 2 units, then inject 8 units SQ QD at bedtime 05/18/19 25 026 Active potassium chloride ER 10 mEq tablet,extended release RxNorm: 305001 Take 1 Tablet(s) Oral QD 04/12/19 25 No Stop Date Active fluoxetine 10 mg capsule RxNorm: 396352 Take 1 Capsule(s) Oral QD 04/12/19 25 No Stop Date Active hydrochlorothiazide 25 mg tablet RxNorm: 890882 Take 1 Tablet(s) Oral QD 04/12/19 25 No Stop Date Active Oyster Shell Calcium 500 mg (as calcium carbonate 1,250 mg) tablet RxNorm: 453776 Take 1 Tablet(s) Oral QD 04/12/19 25 No Stop Date Active Co Q-10 200 mg capsule RxNorm: 345598 Capsule(s) Oral take 1 cap po daily with 100mg tab to =300mg daily 04/12/19 25 No Stop Date Active Co Q-10 100 mg capsule RxNorm: 136100 Capsule(s) Oral take 1 cap daily along with 200mg tab to =300mg daily 04/12/19 25 No Stop Date Active quetiapine 25 mg tablet RxNorm: 798830 Take 1 Tablet(s) Oral QHS every night at bedtime 04/12/19 25 No Stop Date Active Vitamin D3 25 mcg (1,000 unit) tablet RxNorm: 446670 Take 1 Tablet(s) Oral QD 04/12/19 25 No Stop Date Active acetaminophen 500 mg tablet RxNorm: 397629 Take 2 Tablet(s) Oral TID as needed 04/12/19 25 No Stop Date Active donepezil 10 mg tablet RxNorm: 118710 Take 1 Tablet(s) Oral QHS every night at bedtime 04/12/19 25 No Stop Date Active cyanocobalamin (vit B-12) 500 mcg tablet RxNorm: 269610 Take 1 Tablet(s) Oral QD 04/12/19 25 No Stop Date Active oxybutynin chloride ER 10 mg tablet,extended release 24 hr RxNorm: 665673 Take 1 Tablet(s) Oral QPM every evening 04/12/19 25 No Stop Date Active irbesartan 150 mg tablet RxNorm: 617963 Take 1 Tablet(s) Oral BID 04/12/19 25 No Stop Date Active Trelegy Ellipta 200 mcg-62.5 mcg-25 mcg powder for inhalation RxNorm: 2466179 Inhale 1 Puff(s) Inhalation every 24 hours 04/12/19 25 No Stop Date Active Vitron-C 65 mg iron-125 mg tablet,delayed release RxNorm: 4862553 Take 1 Tablet(s) Oral QOD every other day 04/12/19 25 No Stop Date Active Eliquis 5 mg tablet RxNorm: 3430091 Take 1 Tablet(s) Oral BID 04/12/19 25 025 Inactive Lantus Solostar U-100 Insulin 100 unit/mL (3 mL) subcutaneous pen RxNorm: 119016 Unit(s) Subcutaneous prime en with 2 units, [...] Code Result Date Service Location Urine Culture 55583 URINE CULTURE 01321-9 SEE RESU LTS BELOW 05/23/19 Unknown UA with Microscopic 18732 COLOR Yellow 05/22/19 Unknown UA with Microscopic 62327 Appearance Slightly Cloudy 05/22/19 Unknown UA with Microscopic 51067 GLUCOSE, URINE Negative mg/dL 05/22/19 Unknown UA with Microscopic 92744 BILIRUBIN, URINE Negative 05/22/19 Unknown UA with Microscopic 40243 Ketones Urine Negative mg/dL 05/22/19 Unknown UA with Microscopic 15133 Specific Watson Urine 1.013 05/22/19 Unknown UA with Microscopic 20582 BLOOD, URINE Negative 05/22/19 Unknown UA with Microscopic 55254 pH Urine 6.5 05/22/19 Unknown UA with Microscopic 48319 Protein urine 10 mg/dL 05/22/19 Unknown UA with Microscopic 00546 UROBILINOGEN IRIS Normal mg/dL 05/22/19 Unknown UA with Microscopic 30112 Nitrites Positive 03/14/20 25 Unknown UA with Microscopic 52424 LEUK ESTERASE Large 05/22/19 25 Unknown UA with Microscopic 52026 Bacteria Few /HPF 05/22/19 25 Unknown UA with Microscopic 21494 Mucus Urine Present /LPF 05/22/19 25 Unknown UA with Microscopic 49521 RBC Urine 0 /HPF 05/22/19 25 Unknown UA with Microscopic 03448 SQUAMOUS EPITHELIAL 3 /HPF 05/22/19 25 Unknown UA with Microscopic 25932 WBC Urine 73253-0 24 /HPF 05/22/19 25 Unknown UA with Microscopic 90644 TRANSITIONAL EPI <1 /HPF 05/22/19 Unknown Functional [...] Codes Status Date Appointment: Michela Talbot WPtel: [address] [place], [place] [id number] 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 Previously lived independently in [place]. . Has one daughter Maggie who is involved in healthcare. PMH: History of breast cancer and melanoma, mixed dementia, depression, CAD, HLD, history of CVA/TIA, compression fx of L1 vertebrae, urinary incontinence, hearing loss, osteopeniaPrimary contact: Maggie Gallegos (Daughter)Code Status: DNR/SelectLab Schedule: Mar/SepSpecialists: [facility] (Q6M), Cardiology [facility] (MD Echo) 06/11/2024
--- OUTSIDE RECORDS SUMMARY | 2024-07-03 20:47 | XMS_ITS | CCD ---
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 Name Role Phone Teresa Vivas Primary Care Provider Un available Unavailable Chronic Care Management Unavaila ble Summary Purpose DataExchange Insurance Providers Payer name Policy type / Coverage type Covered alliance party ID Effective Begin Date Effective End Date BCBS of [facility] Medicare Risk [id number] Unknown Un known Family history Mother Diagnosis Age At Onset Stroke Unknown Social History Social History Element Codes Description Effec tive Dates Marital status Unknown 04/13/2024 Marital status Unknown 04/13/2024 Living arrangements Unknown Assisted Living 04/[address]: 6295603 Former smoker 04/[address]: 0621872 Former smoker 04/[address]: 035504220 No Alcohol Consum ption 04/13/[address]: 542572 Currently drin ks alcohol 04/13/2024 Sexually Active? [...] No Inactive Date A ctive SIMVASTATIN RxNorm: 46379 04/13/2024 No Inactive D ate Active Penicillin Unknown 04/13/2024 No Inactive Date A ctive CLOPIDOGREL Unknown 03/23/2024 No Inactive Date Active naproxen RxNorm: 7258 04/13/2024 No Inactive Date Active levofloxacin RxNorm: 53051 03/23/2024 No Inactive Date Active Levemir Unknown 03/23/2024 No Inactive Date Ac tive metformin RxNorm: 708291 04/13/2024 No Inactive Da te Active ESTROGENS Unknown 03/23/2024 No Inactive Date Ac tive Atenolol RxNorm: 1202 04/13/2024 No Inactive Date Active metoprolol succinate RxNorm: 937261 03/23/2024 No Inactive Date Active Januvia RxNorm: 306629 04/13/2024 No Inactive Da te Active furosemide RxNorm: 4603 03/23/2024 No Inactive Balaji e Active azithromycin RxNorm: 66464 04/13/2024 No Inactive Date Active losartan RxNorm: 888520 04/13/2024 No Inactive Da te Active NSAIDS Unknown 03/23/2024 No Inactive Date Ac tive Amlodipine RxNorm: 277478 04/13/2024 No Inactive D ate Active LISINOPRIL RxNorm: 16482 04/13/2024 No Inactive Da te Active PIOGLITAZONE DERIVATIVES Unknown 04/13/2024 No I nactive Date Active Problems Condition Codes Effective Dates Condition 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 ICD-9: 311 05/04/2024 Active Pressure injury of left buttock, stage [address]: 60710850598984 ICD-10: L89.322 ICD-9: 707.05 05/04/2024 Active Primary hypertension ICD-10: I10 ICD-9: 401.9 05/04/2024 Active Type 2 diabetes mellitus without complication, unspecified whether jail insulin use ICD-10: E11.9 ICD-9: 250.00 05/04/2024 Active Advanced care planning - to document end of life discussions Unknown 04/13/2024 Active Diabetes mellitus Type 2 Unknown 04/13/2024 Act floyd Advance care planning SNOMED CT: 4281922 01 ICD-10: Z71.89 ICD-9: V65.49 04/13/2024 Active Atherosclerosis of coronary artery of [place] heart without angina pectoris, unspecified vessel or lesion type SNOMED CT: 111556490 ICD-10: I25.10 ICD-9: 414.01 04/13/2024 Active Atrial fibrillation, unspecified type SNOMED CT: 26198431 ICD-10: I48.91 ICD-9: 427.31 04/13/2024 Active Chronic heart failure with preserved ejection fraction SNOMED CT: 989721327 ICD-10: I50.32 ICD-9: 428.9 04/13/2024 Active Chronic obstructive pulmonary disease, unspecified COPD type SNOMED CT: 63846897 ICD-10: J44.9 ICD-9: 496 04/13/2024 Active Compression fracture of L1 vertebra, sequela SNOMED CT: 041802422 ICD-10: S32.010S ICD-9: 905.1 04/13/2024 Active Dementia in other diseases classified elsewhere, unspecified severity, without behavioral disturbance, psychotic disturbance, mood disturbance, and anxiety ICD-10: F02.80 04/13/[address]: 452097170 ICD-10: K57.90 ICD-9: 562.10 04/13/2024 Active History of breast cancer SNOMED CT: 4290 39958 ICD-10: Z85.3 ICD-9: V10.3 04/13/2024 Active History of melanoma SNOMED CT: 810907989 ICD-10: Z85.820 ICD-9: V10.82 04/13/2024 Active History of TIA (transient ischemic attack) SNOMED CT: 285121547 ICD-10: Z86.73 ICD-9: V12.54 04/13/2024 Active Hyperlipidemia, unspecified hyperlipidemia type SNOMED CT: 71086044 ICD-10: E78.5 ICD-9: 272.4 04/13/2024 Active Iron deficiency anemia, unspecified iron deficiency anemia type SNOMED CT: 93373594 ICD-10: D50.9 ICD-9: 280.9 04/13/2024 Active Mixed Alzheimer and vascular dementia SNOMED CT: 63308548030457 ICD-10: G30.9 ICD-9: 331.0 04/13/2024 Active CAMILO (obstructive sleep apnea) SNOMED CT: 88392464 ICD-10: G47.33 ICD-9: 327.23 04/13/2024 Active Osteopenia, unspecified location SNOMED CT: 457016172 ICD-10: M85.80 ICD-9: 733.90 04/13/2024 Active Statin intolerance SNOMED CT: 829789591 ICD-10: Z78.9 ICD-9: 995.27 04/13/2024 Active Unintentional weight loss SNOMED CT: 448 954553 ICD-10: R63.4 ICD-9: 783.21 04/13/2024 Active Unsteady gait SNOMED CT: 17626295 ICD-10: R26.81 ICD-9: 781.2 04/13/2024 Active Urinary incontinence, unspecified type SNOMED CT: 446109706 ICD-10: R32 ICD-9: 788.30 04/13/2024 Active Vascular dementia, unspecified severity, without behavioral disturbance, psychotic disturbance, mood disturbance, and anxiety ICD-10: F01.50 04/13/2024 Active Venous insufficiency of both lower extremities SNOMED CT: 330640779 ICD-10: I87.2 ICD-9: 459.81 04/13/2024 Active Medications Medication Codes Instructions Start Date Stop Date Status Fill Instructions potassium chloride ER 10 mEq tablet,extended release RxNorm: 546224 Take 1 Tablet(s) Oral QD 04/12/19 25 No Stop Date Active fluoxetine 10 mg capsule RxNorm: 502885 Take 1 Capsule(s) Oral QD 04/12/19 25 No Stop Date Active hydrochlorothiazide 25 mg tablet RxNorm: 002766 Take 1 Tablet(s) Oral QD 04/12/19 25 No Stop Date Active Oyster Shell Calcium 500 mg (as calcium carbonate 1,250 mg) tablet RxNorm: 799677 Take 1 Tablet(s) Oral QD 04/12/19 25 No Stop Date Active Co Q-10 200 mg capsule RxNorm: 369746 Capsule(s) Oral take 1 cap po daily with 100mg tab to =300mg daily 04/12/19 25 No Stop Date Active Co Q-10 100 mg capsule RxNorm: 093794 Capsule(s) Oral take 1 cap daily along with 200mg tab to =300mg daily 04/12/19 25 No Stop Date Active quetiapine 25 mg tablet RxNorm: 352000 Take 1 Tablet(s) Oral QHS every night at bedtime 04/12/19 25 No Stop Date Active Vitamin D3 25 mcg (1,000 unit) tablet RxNorm: 620316 Take 1 Tablet(s) Oral QD 04/12/19 25 No Stop Date Active acetaminophen 500 mg tablet RxNorm: 163151 Take 2 Tablet(s) Oral TID as needed 04/12/19 25 No Stop Date Active donepezil 10 mg tablet RxNorm: 924260 Take 1 Tablet(s) Oral QHS every night at bedtime 04/12/19 25 No Stop Date Active cyanocobalamin (vit B-12) 500 mcg tablet RxNorm: 591537 Take 1 Tablet(s) Oral QD 04/12/19 25 No Stop Date Active oxybutynin chloride ER 10 mg tablet,extended release 24 hr RxNorm: 750304 Take 1 Tablet(s) Oral QPM every evening 04/12/19 25 No Stop Date Active irbesartan 150 mg tablet RxNorm: 885364 Take 1 Tablet(s) Oral BID 04/12/19 25 No Stop Date Active Trelegy Ellipta 200 mcg-62.5 mcg-25 mcg powder for inhalation RxNorm: 0332510 Inhale 1 Puff(s) Inhalation every 24 hours 04/12/19 25 No Stop Date Active Vitron-C 65 mg iron-125 mg tablet,delayed release RxNorm: 1017053 Take 1 Tablet(s) Oral QOD every other day 04/12/19 25 No Stop Date Active Eliquis 5 mg tablet RxNorm: 6467436 Take 1 Tablet(s) Oral BID 04/12/19 25 025 Inactive Lantus Solostar U-100 Insulin 100 unit/mL (3 mL) subcutaneous pen RxNorm: 785542 Unit(s) Subcutaneous prime en with 2 units, [...] Encounter Performer Location Location Address Codes Date (35069) Home or Residence Visit Est Pt - Moderate Level, 40 mins 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] Diagnosis: Primary hypertension[ICD10 : I10] Diagnosis: Pressure injury of left buttock, stage 2[SNOMED: 90603622396564] Diagnosis: Type 2 diabetes mellitus without complication, unspecified whether intermission coordinator insulin use[ICD10: E11.9] Teresa Talbot [facility] [place] [address] CPT-4: 28617 05/04/2024 Plan of Care Planned Activity Notes Codes Status Date Patient Education: Patient Medication Summary Completed 05/04/2024 Patient Education: Influenza Complet ed 05/04/2024 Appointment: Antione Michela martinez WPtel: [address] ECD 04/13/2024 Instructions Comment Date Alyx resides at [facility] since about 2021. Previously lived independently in [place]. . Has one daughter Maggie who is involved in healthcare. PMH: History of breast cancer and melanoma, mixed dementia, depression, CAD, HLD, history of CVA/TIA, compression fx of L1 vertebrae, urinary incontinence, hearing loss, osteopeniaPrimary contact: Maggie Gallegos (Daughter)Code Status: DNR/SelectLab Schedule: Mar/SepSpecialists: [facility] (Q6M), Cardiology [facility] (MD Echo) 06/11/2024 Type 2 diabetes mellitus wit hout complication, unspecified whether jail insulin use Sugars reviewed; remain in 80-90s [...]
--- OUTSIDE RECORDS SUMMARY | 2024-07-03 20:47 | XMS_ITS | Encounter Summary ---
Author Organization [facility] Address [address] [facility] [place] [address] Care Team Providers Care Admissions Evaluator Name Role Phone Darien aSnchez Primary Care Provider [phone] Zahira Feldman MD Unavailable + Yumiko Sim MD Unavailable Kathy Bueno DO Unavailable [phone] Dixon Panchal MD Primary Care Provider Dixon Panchal MD Unavailable [facility] Unavailable Albertina Hartman APRN [facility] Unavailable [phone] Darlene Mendoza MD Primary Care Provider [phone] Eleanor Humphreys PA-C Unavailable Encounter Details Date Type Department Care Team (Late st Contact Info) Description 07/26/2019 [facility] Only [facility] [address] [facility] [address] [place] [address] Billie Martinez MD [address] [facility] [address] [place] [address] Paroxysmal atrial fibrillation (H) (Primary Dx); Chronic diastolic heart failure (H); Dyspnea Social History Tobacco Use Types Packs/Day Years Used Date Smoking Tobacco: Former Cigarettes Q uit: 11/12/1991 Smokeless Tobacco: Never Alcohol Use Standard Drinks/Week Comments No 0 (1 standard drink = 0.6 oz pur e alcohol) PHQ-2 Answer Date Recorded PHQ-2 Score 0 11/04/2017 Comments No Sex and Gender Information Value Date Recorded Sex Assigned at Not on file 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 Gender Identity Not on file Sexual Orientation Not on file documented as of this encounter Plan of Treatment Not on file documented as of this encounter Results * EKG 12-lead, tracing only (08/04/2019 1:53 PM CDT) Interpretation ECG Click View Image link to view waveform and result RADIOLOGY RESULTS 08/04/2019 1:53 PM CDT us Billie Martinez MD ECG ORDERABLES Final Result RADIOLOGY RESULTS documented in this encounter Visit Diagnoses Diagnosis Paroxysmal atrial fibrillation (H)- Primary Atrial fibrillation Chronic diastolic heart failure (H) Chronic diastolic heart failure Dyspnea Other dyspnea and respiratory abnormality documented in this encounter Care Teams Admissions Evaluator Relationship Specialty Start Date End Date Darien Sanchez [address] [address] PCP - General Family Practice 03/31/17 02/01/22 Dixon Panchal MD [address] [place] [address] PCP - General Internal Medicine 02/02/22 07/18/22 Darlene Mendoza MD [facility] [address] [place] [address] PCP - General Family Medicine 07/19/22 Zahira Feldman MD [address] [place] [address] MD Ophthalmology 10/13/17 Yumiko Sim MD [address] [place] [address] Assigned PCP 07/08/19 02/08/22 Kathy Bueno DO [address] [place] [address] Assigned Heart and Vascular Provider 12/31/19 04/07/21 Dixon Panchal MD [address] [place] [address] Assigned PCP 02/09/22 05/29/24 [facility] [id number] [place] [phone] 07/17/22 Albertina Hartman APRN PROCESSING SPECIALIST [address] [place] [address] Nurse Practitioner Geriatric Medicine 07/17/22 08/25/22 Eleanor Humphreys PA-C [facility] [address] [address] Assigned Neuroscience Provider 08/31/22 02/29/24 Krysta Bhatti- [facility] [address] 07/15/22 documented as of this encounter
--- OUTSIDE RECORDS SUMMARY | 2024-07-03 20:47 | XMS_ITS | CCD ---
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 Name Role Phone Teresa Vivas Primary Care Provider Un available Unavailable Chronic Care Management Unavaila ble Summary Purpose DataExchange Insurance Providers Payer name Policy type / Coverage type Covered libertarian ID Effective Begin Date Effective End Date [place] [id number] Unknown Un known Family history Mother Diagnosis Age At Onset Stroke Unknown Social History Social History Element Codes Description Effec tive Dates Marital status Unknown 04/13/2024 Marital status Unknown 04/13/2024 Living arrangements Unknown Assisted Living 04/[address]: 9560683 Former smoker 04/[address]: 9062542 Former smoker 04/[address]: 947644322 No Alcohol Consum ption 04/13/[address]: 078932 Currently drin ks alcohol 04/13/2024 Sexually Active? [...] No Inactive Date A ctive SIMVASTATIN RxNorm: 68655 04/13/2024 No Inactive D ate Active Penicillin Unknown 04/13/2024 No Inactive Date A ctive CLOPIDOGREL Unknown 03/23/2024 No Inactive Date Active naproxen RxNorm: 7258 04/13/2024 No Inactive Date Active levofloxacin RxNorm: 37001 03/23/2024 No Inactive Date Active Levemir Unknown 03/23/2024 No Inactive Date Ac tive metformin RxNorm: 507442 04/13/2024 No Inactive Da te Active ESTROGENS Unknown 03/23/2024 No Inactive Date Ac tive Atenolol RxNorm: 1202 04/13/2024 No Inactive Date Active metoprolol succinate RxNorm: 869626 03/23/2024 No Inactive Date Active Januvia RxNorm: 484406 04/13/2024 No Inactive Da te Active furosemide RxNorm: 4603 03/23/2024 No Inactive Balaji e Active azithromycin RxNorm: 93484 04/13/2024 No Inactive Date Active losartan RxNorm: 395180 04/13/2024 No Inactive Da te Active NSAIDS Unknown 03/23/2024 No Inactive Date Ac tive Amlodipine RxNorm: 384197 04/13/2024 No Inactive D ate Active LISINOPRIL RxNorm: 98214 04/13/2024 No Inactive Da te Active PIOGLITAZONE DERIVATIVES Unknown 04/13/2024 No I nactive Date Active Problems Condition Codes Effective Dates Condition [facility] ACP (advance care planning) SNOMED CT: 3 37847345 ICD-10: Z71.89 ICD-9: V65.49 06/01/2024 Active Acute cystitis without hematuria SNOMED CT: 52822350 ICD-10: N30.00 ICD-9: 595.0 06/01/2024 Active Adult general medical exam SNOMED CT: 30 6473015 ICD-10: Z00.00 ICD-9: V70.9 06/01/2024 Active Atherosclerosis of coronary artery of [place] heart without angina pectoris, unspecified vessel or [...] ICD-9: 311 06/01/[address]: 734424513 ICD-10: R54 ICD-9: 797 06/01/2024 Active Iron [...] fracture of L1 vertebra, sequela SNOMED CT: 459305407 ICD-10: S32.010S ICD-9: 905.1 04/13/2024 Active Dementia in other diseases classified elsewhere, unspecified severity, without behavioral disturbance, psychotic disturbance, mood disturbance, and anxiety ICD-10: F02.80 04/13/[address]: 269961887 ICD-10: K57.90 ICD-9: 562.10 04/13/2024 Active History of breast cancer SNOMED CT: 4290 19331 ICD-10: Z85.3 ICD-9: V10.3 04/13/2024 Active History of melanoma SNOMED CT: 466253766 ICD-10: Z85.820 ICD-9: V10.82 04/13/2024 Active History of TIA (transient ischemic attack) SNOMED CT: 545032794 ICD-10: Z86.73 ICD-9: V12.54 04/13/2024 Active Hyperlipidemia, unspecified hyperlipidemia type SNOMED CT: 39474237 ICD-10: E78.5 ICD-9: 272.4 04/13/2024 Active Statin intolerance SNOMED CT: 489765165 ICD-10: Z78.9 ICD-9: 995.27 04/13/2024 Active Urinary incontinence, unspecified type SNOMED CT: 840675885 ICD-10: R32 ICD-9: 788.30 04/13/2024 Active Vascular dementia, unspecifi ed severity, without behavioral disturbance, psychotic disturbance, mood disturbance, and anxiety ICD-10: F01.50 04/13/2024 Active Medications Medication Codes Instructions Start Date Stop Date Status Fill Instructions Alejandra Protect (zinc oxide) 12 % topical cream RxNorm: 070470 APPLY TO RIGHT BUTTOCK 2 TIMES DAILY;APPLY TO RIGHT BUTTOCK NEEDED WITH SOILING 06/12/19 25 026 Active albuterol sulfate HFA 90 mcg/actuation aerosol inhaler RxNorm: 0551577 Inhale 2 Puff(s) Inhalation Q4H every four hours as needed 06/01/19 25 No Stop Date Active Alejandra Protect (zinc oxide) 12 % topical cream RxNorm: 434260 cream Topical apply to right buttocks BID and PRN with soiling 06/01/19 25 025 Inactive Lantus Solostar U-100 Insulin 100 unit/mL (3 mL) subcutaneous pen RxNorm: 832467 Unit(s) Subcutaneous prime en with 2 units, then inject 8 units SQ QD at bedtime 05/18/19 25 026 Active potassium chloride ER 10 mEq tablet,extended release RxNorm: 838979 Take 1 Tablet(s) Oral QD 04/12/19 25 No Stop Date Active fluoxetine 10 mg capsule RxNorm: 113280 Take 1 Capsule(s) Oral QD 04/12/19 25 No Stop Date Active hydrochlorothiazide 25 mg tablet RxNorm: 192182 Take 1 Tablet(s) Oral QD 04/12/19 25 No Stop Date Active Oyster Shell Calcium 500 mg (as calcium carbonate 1,250 mg) tablet RxNorm: 322725 Take 1 Tablet(s) Oral QD 04/12/19 25 No Stop Date Active Co Q-10 200 mg capsule RxNorm: 223591 Capsule(s) Oral take 1 cap po daily with 100mg tab to =300mg daily 04/12/19 25 No Stop Date Active Co Q-10 100 mg capsule RxNorm: 976906 Capsule(s) Oral take 1 cap daily along with 200mg tab to =300mg daily 04/12/19 25 No Stop Date Active quetiapine 25 mg tablet RxNorm: 305114 Take 1 Tablet(s) Oral QHS every night at bedtime 04/12/19 25 No Stop Date Active Vitamin D3 25 mcg (1,000 unit) tablet RxNorm: 009660 Take 1 Tablet(s) Oral QD 04/12/19 25 No Stop Date Active acetaminophen 500 mg tablet RxNorm: 490241 Take 2 Tablet(s) Oral TID as needed 04/12/19 25 No Stop Date Active donepezil 10 mg tablet RxNorm: 248074 Take 1 Tablet(s) Oral QHS every night at bedtime 04/12/19 25 No Stop Date Active cyanocobalamin (vit B-12) 500 mcg tablet RxNorm: 604517 Take 1 Tablet(s) Oral QD 04/12/19 25 No Stop Date Active oxybutynin chloride ER 10 mg tablet,extended release 24 hr RxNorm: 980485 Take 1 Tablet(s) Oral QPM every evening 04/12/19 25 No Stop Date Active irbesartan 150 mg tablet RxNorm: 912610 Take 1 Tablet(s) Oral BID 04/12/19 25 No Stop Date Active Trelegy Ellipta 200 mcg-62.5 mcg-25 mcg powder for inhalation RxNorm: 1259870 Inhale 1 Puff(s) Inhalation every 24 hours 04/12/19 25 No Stop Date Active Vitron-C 65 mg iron-125 mg tablet,delayed release RxNorm: 2634643 Take 1 Tablet(s) Oral QOD every other day 04/12/19 25 No Stop Date Active Eliquis 5 mg tablet RxNorm: 1114689 Take 1 Tablet(s) Oral BID 04/12/19 25 025 Inactive Lantus Solostar U-100 Insulin 100 unit/mL (3 mL) subcutaneous pen RxNorm: 415920 Unit(s) Subcutaneous prime en with 2 units, [...] data Instructions Comment Date Alyx resides at [facility] since about 2021. Previously lived independently in [place]. . Has one daughter Maggie who is involved in healthcare. PMH: History of breast cancer and melanoma, mixed dementia, depression, CAD, HLD, history of CVA/TIA, compression fx of L1 vertebrae, urinary incontinence, hearing loss, osteopeniaPrimary contact: Maggie Gallegos (Daughter)Code Status: DNR/SelectLab Schedule: Mar/SepSpecialists: [facility] (Q6M), Cardiology [facility] (MD Echo) 06/11/2024
--- OUTSIDE RECORDS SUMMARY | 2024-07-03 20:47 | XMS_ITS | CCD ---
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 Care Liquor Blender Name Role Phone Teresa Vivas Primary Care Provider Un available Unavailable Chronic Care Management Unavaila ble Summary Purpose DataExchange Insurance Providers Payer name Policy type / Coverage type Covered constitution party ID Effective Begin Date Effective End Date [place] [id number] Unknown Un known Family history Mother Diagnosis Age At Onset Stroke Unknown Social History Social History Element Codes Description Effec tive Dates Marital status Unknown 04/13/2024 Marital status Unknown 04/13/2024 Living arrangements Unknown Assisted Living 04/[address]: 9029004 Former smoker 04/[address]: 5423253 Former smoker 04/[address]: 348681434 No Alcohol Consum ption 04/13/[address]: 157833 Currently drin ks alcohol 04/13/2024 Sexually Active? [...] No Inactive Date A ctive SIMVASTATIN RxNorm: 42738 04/13/2024 No Inactive D ate Active Penicillin Unknown 04/13/2024 No Inactive Date A ctive CLOPIDOGREL Unknown 03/23/2024 No Inactive Date Active naproxen RxNorm: 7258 04/13/2024 No Inactive Date Active levofloxacin RxNorm: 31568 03/23/2024 No Inactive Date Active Levemir Unknown 03/23/2024 No Inactive Date Ac tive metformin RxNorm: 847070 04/13/2024 No Inactive Da te Active ESTROGENS Unknown 03/23/2024 No Inactive Date Ac tive Atenolol RxNorm: 1202 04/13/2024 No Inactive Date Active metoprolol succinate RxNorm: 534709 03/23/2024 No Inactive Date Active Januvia RxNorm: 117859 04/13/2024 No Inactive Da te Active furosemide RxNorm: 4603 03/23/2024 No Inactive Balaji e Active azithromycin RxNorm: 75606 04/13/2024 No Inactive Date Active losartan RxNorm: 740205 04/13/2024 No Inactive Da te Active NSAIDS Unknown 03/23/2024 No Inactive Date Ac tive Amlodipine RxNorm: 249775 04/13/2024 No Inactive D ate Active LISINOPRIL RxNorm: 66357 04/13/2024 No Inactive Da te Active PIOGLITAZONE DERIVATIVES Unknown 04/13/2024 No I nactive Date Active Problems Condition Codes Effective Dates Condition 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 ICD-9: 311 05/04/2024 Active Pressure injury of left buttock, stage [address]: 34322069989112 ICD-10: L89.322 ICD-9: 707.05 05/04/2024 Active Primary hypertension ICD-10: I10 ICD-9: 401.9 05/04/2024 Active Type 2 diabetes mellitus without complication, unspecified whether longterm insulin use ICD-10: E11.9 ICD-9: 250.00 05/04/2024 Active Advanced care planning - to document end of life discussions Unknown 04/13/2024 Active Diabetes mellitus Type 2 Unknown 04/13/2024 Act floyd Advance care planning SNOMED CT: 1752253 01 ICD-10: Z71.89 ICD-9: V65.49 04/13/2024 Active Atherosclerosis of coronary artery of [place] heart without angina pectoris, unspecified vessel or lesion type SNOMED CT: 972171978 ICD-10: I25.10 ICD-9: 414.01 04/13/2024 Active Atrial fibrillation, unspecified type SNOMED CT: 88296567 ICD-10: I48.91 ICD-9: 427.31 04/13/2024 Active Chronic heart failure with preserved ejection fraction SNOMED CT: 608179463 ICD-10: I50.32 ICD-9: 428.9 04/13/2024 Active Chronic obstructive pulmonary disease, unspecified COPD type SNOMED CT: 80966733 ICD-10: J44.9 ICD-9: 496 04/13/2024 Active Compression fracture of L1 vertebra, sequela SNOMED CT: 845559431 ICD-10: S32.010S ICD-9: 905.1 04/13/2024 Active Dementia in other diseases classified elsewhere, unspecified severity, without behavioral disturbance, psychotic disturbance, mood disturbance, and anxiety ICD-10: F02.80 04/13/[address]: 724313006 ICD-10: K57.90 ICD-9: 562.10 04/13/2024 Active History of breast cancer SNOMED CT: 4290 05503 ICD-10: Z85.3 ICD-9: V10.3 04/13/2024 Active History of melanoma SNOMED CT: 575264936 ICD-10: Z85.820 ICD-9: V10.82 04/13/2024 Active History of TIA (transient ischemic attack) SNOMED CT: 301427746 ICD-10: Z86.73 ICD-9: V12.54 04/13/2024 Active Hyperlipidemia, unspecified hyperlipidemia type SNOMED CT: 30424300 ICD-10: E78.5 ICD-9: 272.4 04/13/2024 Active Iron deficiency anemia, unspecified iron deficiency anemia type SNOMED CT: 23462935 ICD-10: D50.9 ICD-9: 280.9 04/13/2024 Active Mixed Alzheimer and vascular dementia SNOMED CT: 86166145198332 ICD-10: G30.9 ICD-9: 331.0 04/13/2024 Active CAMILO (obstructive sleep apnea) SNOMED CT: 96942175 ICD-10: G47.33 ICD-9: 327.23 04/13/2024 Active Osteopenia, unspecified location SNOMED CT: 057701427 ICD-10: M85.80 ICD-9: 733.90 04/13/2024 Active Statin intolerance SNOMED CT: 297381936 ICD-10: Z78.9 ICD-9: 995.27 04/13/2024 Active Unintentional weight loss SNOMED CT: 448 887139 ICD-10: R63.4 ICD-9: 783.21 04/13/2024 Active Unsteady gait SNOMED CT: 97507269 ICD-10: R26.81 ICD-9: 781.2 04/13/2024 Active Urinary incontinence, unspecified type SNOMED CT: 137462467 ICD-10: R32 ICD-9: 788.30 04/13/2024 Active Vascular dementia, unspecified severity, without behavioral disturbance, psychotic disturbance, mood disturbance, and anxiety ICD-10: F01.50 04/13/2024 Active Venous insufficiency of both lower extremities SNOMED CT: 286917219 ICD-10: I87.2 ICD-9: 459.81 04/13/2024 Active Medications Medication Codes Instructions Start Date Stop Date Status Fill Instructions Lantus Solostar U-100 Insulin 100 unit/mL (3 mL) subcutaneous pen RxNorm: 389231 Unit(s) Subcutaneous prime en with 2 units, then inject 8 units SQ QD at bedtime 05/18/19 25 026 Active potassium chloride ER 10 mEq tablet,extended release RxNorm: 179399 Take 1 Tablet(s) Oral QD 04/12/19 25 No Stop Date Active fluoxetine 10 mg capsule RxNorm: 837935 Take 1 Capsule(s) Oral QD 04/12/19 25 No Stop Date Active hydrochlorothiazide 25 mg tablet RxNorm: 203544 Take 1 Tablet(s) Oral QD 04/12/19 25 No Stop Date Active Oyster Shell Calcium 500 mg (as calcium carbonate 1,250 mg) tablet RxNorm: 112669 Take 1 Tablet(s) Oral QD 04/12/19 25 No Stop Date Active Co Q-10 200 mg capsule RxNorm: 097532 Capsule(s) Oral take 1 cap po daily with 100mg tab to =300mg daily 04/12/19 25 No Stop Date Active Co Q-10 100 mg capsule RxNorm: 069402 Capsule(s) Oral take 1 cap daily along with 200mg tab to =300mg daily 04/12/19 25 No Stop Date Active quetiapine 25 mg tablet RxNorm: 230751 Take 1 Tablet(s) Oral QHS every night at bedtime 04/12/19 25 No Stop Date Active Vitamin D3 25 mcg (1,000 unit) tablet RxNorm: 271944 Take 1 Tablet(s) Oral QD 04/12/19 25 No Stop Date Active acetaminophen 500 mg tablet RxNorm: 628229 Take 2 Tablet(s) Oral TID as needed 04/12/19 25 No Stop Date Active donepezil 10 mg tablet RxNorm: 847906 Take 1 Tablet(s) Oral QHS every night at bedtime 04/12/19 25 No Stop Date Active cyanocobalamin (vit B-12) 500 mcg tablet RxNorm: 965760 Take 1 Tablet(s) Oral QD 04/12/19 25 No Stop Date Active oxybutynin chloride ER 10 mg tablet,extended release 24 hr RxNorm: 974736 Take 1 Tablet(s) Oral QPM every evening 04/12/19 25 No Stop Date Active irbesartan 150 mg tablet RxNorm: 678271 Take 1 Tablet(s) Oral BID 04/12/19 25 No Stop Date Active Trelegy Ellipta 200 mcg-62.5 mcg-25 mcg powder for inhalation RxNorm: 1329439 Inhale 1 Puff(s) Inhalation every 24 hours 04/12/19 25 No Stop Date Active Vitron-C 65 mg iron-125 mg tablet,delayed release RxNorm: 9106828 Take 1 Tablet(s) Oral QOD every other day 04/12/19 25 No Stop Date Active Lantus Solostar U-100 Insulin 100 unit/mL (3 mL) subcutaneous pen RxNorm: 175689 Unit(s) Subcutaneous prime en with 2 units, then inject 10 units SQ QD at bedtime 04/12/19 25 025 Inactive Eliquis 5 mg tablet RxNorm: 9206541 Take 1 Tablet(s) Oral BID 04/12/19 25 [...] data Instructions Comment Date Alyx resides at [facility] since about 2021. Previously lived independently in [place]. . Has one daughter Maggie who is involved in healthcare. PMH: History of breast cancer and melanoma, mixed dementia, depression, CAD, HLD, history of CVA/TIA, compression fx of L1 vertebrae, urinary incontinence, hearing loss, osteopeniaPrimary contact: Maggie Gallegos (Daughter)Code Status: DNR/SelectLab Schedule: Mar/SepSpecialists: [facility] (Q6M), Cardiology [facility] (MD Echo) 06/11/2024
--- OUTSIDE RECORDS SUMMARY | 2024-07-03 20:48 | XMS_ITS | Clinical Summary ---
Author Organization [facility] Address [address] [place] [address] Care Team Providers Care Developer Programmer Name Role Phone Darien Sanchez MD Primary Care Provider [phone] Source Comments You are receiving this document as you are listed as the primary care provider,follow-up provider, or the patient has been referred to you for consultation.This is in compliance with the Medicare andMedicaid EHR Incentive Program,which states Providers who transition their patient to another setting of careor provider of care or refers their patient to another provider of care shouldprovide summary care record for each transition of care or referral. [facility] Active Allergy Reactions Criticality Noted Date Comments Pioglitazone Hydrochloride 03/07/2008 Amlodipine 09/07/2008 PN: rash Amlodipine Besylate 03/07/2008 Azithromycin Diarrhea 09/07/2008 PN: diarrhea Esterified Estrogens 03/07/2008 Exenatide Rash 08/29/2009 PN: rash Metformin Hydrochloride 03/07/2008 Lisinopril Other, see comments 08/29/2009 PN: h/a Losartan Chest Pain 04/16/2011 PN: SOB Metformin Other, see comments 09/07/2008 PN: H/A Metoprolol Respiratory Arrest High 09/07/2008 PN: RESPIRATORY ARREST Beta Adrenergic Blockers 03/07/2008 Naproxen Cough 09/07/2008 PN: coughing Other Rash 04/27/2010 PN: -levamin-rash Penicillins Gastrointestinal 09/07/2008 PN: gi upset Pioglitazone Other, see comments 09/07/2008 PN: muscular problems Simvastatin Other, see comments 09/07/2008 PN: fatigue Medications KLOR-CON 10 10 MEQ TAB 2 per day Active CO Q10 OR None Entered Active VITAMIN B-12 OR None Entered A ctive ASPIRIN 81 MG OR CHEW Take one tablet by mouth every day. Active WOMENS MULTIVITAMIN PLUS OR daily Active CLONIDINE HCL 0.1 MG OR TABS 3 Tab Oral three times a day for HTN. do not stop abruptly without physician supervision 0 9 Active INSULIN GLARGINE (LANTUS) 100 UNITS/ML INJECTION 10 Units SC two times a day , before bkfast and supper, for diabetes 0 9 Active CALCIUM CARBONATE-VITAMI N D 500-200 MG-UNIT OR TABS 1 Tab Oral three times a day for bone health 0 9 Active HYDROCHLOROTHIAZ DAGO 25MG ORAL TABS 1 Tab Oral daily for HTN 0 9 Active glipiZIDE (AKA GLUCOTROL) 10 MG tabletIndication s:Knee pain,DJD (degenerative joint disease) of knee None Entered Active insulin glargine (AKA LANTUS) 100 UNIT/ML injection Inject 37 Units subcutaneously. PRN 1 Active Coenzyme Q10 (CO Q 10) 100 MG Indications: PN: 9 Active DRUG NOT IN COMPUTER 2 each daily (every 24 hours). LW Comment:Vitamin B12 2.4 UG 9 Active hydrochlorothiaz dago (AKA HYDRODIURIL) 25 MG tablet Take 2 tablets by mouth daily (every 24 hours). 180 tablet 3 2 Active potassium chloride 10 MEQ controlled release capsule Take 1 tablet by mouth 2 times daily. 180 tablet 0 2 Active potassium chloride (AKA K-DUR,KLOR-CON M) 10 MEQ tablet TAKE ONE TABLET BY MOUTH TWICE DAILY 180 tablet 0 2 Active cloNIDine (CATAPRES) 0.3 MG tablet TAKE ONE TABLET BY MOUTH THREE TIMES DAILY 270 tablet 0 2 Active glipiZIDE (AKA GLUCOTROL) 10 MG tablet Take 1 tablet by mouth. Take 1/2 hours before food in morning 30 tablet 0 2 Active Folic Acid-Vit B6-Vit B12 2.2-25-1 MG Take 1 tablet by mouth. 3 Active Active Problems Problem Noted Date Diagnosed Date Breast cancer 06/23/2012 Overview (10/12/2015): Right breast, DCIS 10/2008 Cerebral artery occlusion with cerebral infarcti on 04/27/2010 Overview (10/30/2016): LW Modifier: R thalamus LW Onset: [id number] ; Lacunar Infarct Obesity 04/27/2010 Morbid obesity 12/02/2008 DJD (degenerative joint disease) of knee 009 Type 2 diabetes mellitus, controlled 09/07/2008 Overview (10/30/2016): LW Onset: 2000? ; DM Type2 Essential hypertension 09/07/2008 Overview (10/30/2016): Hypertension Diverticulitis of colon 09/07/2008 Overview (10/30/2016): LW Modifier: part of large intestine removed LW Onset: 1987 ; Diverticulitis HTN (hypertension) Overview (11/16/2014): ICD 10 Type II diabetes mellitus Overview (10/30/2016): Type II or unspecified type diabetes mellitus without mention of complication, not stated as uncontrolled (HRC) Tachycardia Resolved Problems Problem Noted Date Diagnosed Date Resolved Date Malignant melanoma of skin o f upper limb, including shoulder 09/07/2008 12/20/2010 Overview (10/30/2016): LW Modifier: right LW Onset: 1987 ; Melanoma Shoulder Malignant neoplasm of skin 09/07/2008 1 Overview (10/30/2016): LW Modifier: multiple removed ; Squamous Cell Ca Skin Ankle fracture 03/28/2008 06/08/2008 Immunizations Immunization Administration Dates Next Due Flu Vac Preserv Free (3+yrs) 12/27/2008 HepA Adult (19+ yrs) 03/16/2003 Influenza, Unspecified Formulation 02/06/2008 PPSV23 (Pneumovax) 03/08/2008(Deferred: Patient Refused - Pt states she has had 1 dose and it made her very ill),09/19/1997 Td 03/16/2003,01/15/1995 Td (7+ yrs) 03/07/2008 Family History Medical History Relation Name Comments Diabetes Father High Blood Pressure Mother Stroke Mother Cancer Brother 1 Brain cancer Cancer Brother 2 Cancer Maternal Grandmother Breast cancer Cancer, Breast Maternal Grandmother Cancer Sister 1 Breast cancer Cancer, Breast Sister 1 Cancer, Ovary Sister 1 Cancer Sister 2 Breast cancer Cancer, Breast Sister 2 Cancer Sister 3 Cervix cancer Cancer, Breast Sister 3 Cancer, Breast Sister 4 Cancer, Colon Negative Family History Cancer, Endometrial Negative Family History Relation Name Status Comments Father Mother Brother 1 Brother 2 Brother 3 Brother 4 Brother 5 Alive Maternal Grandfather Maternal Grandmother Paternal Grandfather Paternal Grandmother Sister 1 Sister 2 Sister 3 Sister 4 Alive Social History Tobacco Use Types Packs/Day Years Used Date Smoking Tobacco: Former Cigarettes Q uit: 05/30/1996 Comments:Quit smoking: Alcohol Use Standard Drinks/Week Comments Yes 2 (1 standard drink = 0.6 oz pure alcohol) Alcoholic Drinks/day: Amount:1-2 drinks; Freq:2-3/week ; Comments No Sex and Gender Information Value Date Recorded Sex Assigned at Not on file Legal Sex Female 4:07 AM CDT Gender Identity Not on file Sexual Orientation Not on file Last Filed Vital Signs Vital Sign Reading Time Taken Comments Blood Pressure 130/70 06/23/2012 8:49 PM CDT Pulse 76 06/23/2012 8:49 PM CDT Temperature 36.9 C (98.4 F) 04/16/2011 3:42 PM SASH CLAMP OPERATOR Respiratory Rate 22 06/23/2012 8:49 PM CDT Oxygen Saturation 100% 03/10/2008 8:00 AM SASH CLAMP OPERATOR Inhaled Oxygen Concentration - - Weight 130.2 kg (287 lb) 06/23/2012 8:49 PM CDT Height 171.5 cm (5' 7.5) 06/23/2012 8:49 PM CDT Body Mass Index 44.29 06/23/2012 8:49 PM CDT Plan of Treatment Health Maintenance Due Date Last Done Comments Diabetes: Eye Exam 1935 Diabetes: Foot Exam 1935 Medicare Annual Wellness Visit 1935 Dexa 01/16/2001 HepA Vaccine (2 of 2 - Risk 2-dose series) 09/14/2003 03/16/2003 DTaP/Tdap/Td Vaccine (1 - Tdap) 03/08/2008 03/07/2008, 03/16/2003, 01/15/1995 RSV Vaccine (1 - 1-dose 75+ series) 01/16/2011 Diabetes: HGBA1C 08/27/2011 02/25/2011, , 06/21/2009, Additional history exists Diabetes: Creatinine 04/03/2012 04/03/2011, 02/26/2010, 06/21/2009, Additional history exists Diabetes: Lipid Panel 02/26/2016 02/25/2011, 010 COVID-19 Vaccine ( season) 2023 12/07/2020, 05/06/2020, 04/15/2020 Influenza Vaccine (#1) 2023 , 11/02/2019, 11/20/2017, Additional history exists Pneumococcal Vaccine 50+ Yrs Completed , 05/19/2014, 03/10/2001, Additional history exists Zoster/Shingles Vaccine Completed 10/11/2019, 12/25 HepB Vaccine Aged Out No longer eligi ble based on patient's age to complete this topic Hib Vaccine Aged Out No longer eligi ble based on patient's age to complete this topic IPV (Polio) Vaccine Aged Out No longe r eligible based on patient's age to complete this topic MCV4 Vaccine Aged Out No longer eligi ble based on patient's age to complete this topic Meningococcal B Vaccine Aged Out No l onger eligible based on patient's age to complete this topic Medical Devices Implanted Type Area Meters Superintendent Device Identifier Shelf Expiration Date Model / Serial / Lot Scr Roberta Sftp 3.5/2.7hx16 - [id number] Implanted:Qty: 4 on 03/07/2008 at [facility] DEVICE Right: [employer] [id number] / / Scr Omero Sftp 2.7x16 - [id number] Implanted:Qty: 1 on 03/07/2008 at [facility] DEVICE Right: [employer] [id number] / / Plt Fib Dist Lk Rt 158mm 10h - [id number] Implanted:Qty: 1 on 03/07/2008 at [facility] DEVICE Right: [employer] [id number] / / Scr Lk 2.7x10mm - [id number] Implanted:Qty: 1 on 03/07/2008 at [facility] DEVICE Right: [employer] [id number] / / Scr Lk 2.7x12mm - [id number] Implanted:Qty: 1 on 03/07/2008 at [facility] DEVICE Right: [employer] [id number] / / Scr Lk 2.7x14mm - [id number] Implanted:Qty: 2 on 03/07/2008 at [facility] DEVICE Right: [employer] [id number] / / Scr Lk 2.7x16 - [id number] Implanted:Qty: 2 on 03/07/2008 at [facility] DEVICE Right: [employer] [id number] / / Procedures Procedure Name Priority Date/Time Associated Diagnosis Comments CREATININE / GFR Routine 04/03/2011 12:1 7 PM SASH CLAMP OPERATOR Essential hypertension LIPID PANEL & DIRECT LDL (IF NEEDED) Routine 02/25/2011 12:01 PM SASH CLAMP OPERATOR Type II or unspecified type diabetes mellitus without mention of complication, not stated as uncontrolled (HRC) HGB A1C Routine 02/25/2011 12:01 PM SASH CLAMP OPERATOR Type II or unspecified type diabetes mellitus without mention of complication, not stated as uncontrolled (HRC) from Last 3 Months or Most Recently Relevant to Health Maintenance Results * Creatinine / GFR (04/03/2011 12:17 PM SASH CLAMP OPERATOR) Creatinine Serum 0.9 0.4 - 1.3 mg/dL HP CONVERSION Est GFR Am >60 >60 mL/min/1.7 3m2 HP CONVERSION Est GFR Non-Afr Am >60 >60 mL/min/1.7 3m2 HP CONVERSION Comment: Normal>60, moderate decrease 30 - 59, severe decrease 15 - 29, renal failure <15 mL/min/1.73 m2 NOTE: Choose the eGFR result above appropriate for the race of the patient. 04/03/2011 12:1 7 PM SASH CLAMP OPERATOR 04/03/2011 12:17 PM SASH CLAMP OPERATOR Narrative HP CONVERSION - 04/03/2011 3:29 PM SASH CLAMP OPERATOR Performed at [facility], [address] [place] [address] Jeffrey Duke MD LAB_1 Final Resul t Performing Organization Address [facility] de Phone Number HP CONVERSION * (ABNORMAL) Lipid Panel and Direct LDL(If Needed) (02/25/2011 12:01 PM SASH CLAMP OPERATOR) Cholesterol 169 0 - 200 mg/dL HP CONVERSION Triglycerides 158(H) 0 - 149 mg/dL HP CONVERSION HDL Cholesterol 47 >39 mg/dL HP CONVERSION Cholesterol/HDL Ratio Screen 3.6 HP CONVERSION LDL Calculated 90 19 - 130 mg/dL HP CONVERSION Hours Fasting 12.0 HP CONVERSION 02/25/2011 12:0 1 PM SASH CLAMP OPERATOR 02/25/2011 12:00 PM SASH CLAMP OPERATOR Narrative HP CONVERSION - 02/25/2011 3:30 PM SASH CLAMP OPERATOR Performed at [facility], [address] [place] [address] Transcriptions 04/19/2016 9:42 PM CSTNotes Recorded by Jeffrey Duke MD on 02/25/2011 at 5:08 PMWait for all results to be available to send a single lab letter explaining results. Jeffrey Duke MD LAB_1 Final Resul t Performing Organization Address [facility] de Phone Number HP CONVERSION * (ABNORMAL) Hgb A1c (02/25/2011 12:01 PM SASH CLAMP OPERATOR) HGB A1C 7.3(H) 0.0 - 6.0 % HP CONVERSION 02/25/2011 12:0 1 PM SASH CLAMP OPERATOR 02/25/2011 2:44 PM SASH CLAMP OPERATOR us Jeffrey Duke MD LAB_1 Final Resul t Performing Organization Address [facility] de Phone Number HP CONVERSION from Last 3 Months or Most Recently Relevant to Health Maintenance Insurance [facility] MEDICARE ADVANTAGE Advance Directives Documents on File Type Date Recorded Patient Machine Clothing Replacer Expl anation Advance Directive/Living Will/Durable Power of Attny on file/POLST PN * Full Code (Latest Code Status on File) Date Activated Date Inactivated Comments 03/07/2008 3:28 PM 03/10/2008 3:05 PM Care Teams Developer Programmer Relationship Specialty Start Date End Date Darien Sanchez MD [id number] [facility] [place] [address] PCP - General 02/07/12
--- OUTSIDE RECORDS SUMMARY | 2024-07-03 20:48 | XMS_ITS | CCD ---
Author Name Linda Vivas Address [address] [facility] [address] [place] [address] Phone Organization [facility] Phone Care Team Providers Care Digital Publishing Specialist Name Role Phone Teresa Vivas Primary Care Provider Un available Unavailable Chronic Care Management Unavaila ble Summary Purpose DataExchange Insurance Providers Payer name Policy type / Coverage type Covered green party ID Effective Begin Date Effective End Date BCBS of [facility] Medicare Risk [id number] Unknown Un known Family history Mother Diagnosis Age At Onset Stroke Unknown Social History Social History Element Codes Description Effec tive Dates Marital status Unknown 04/13/2024 Marital status Unknown 04/13/2024 Living arrangements Unknown Assisted Living 04/[address]: 4776027 Former smoker 04/[address]: 4577097 Former smoker 04/[address]: 038018082 No Alcohol Consum ption 04/13/[address]: 001413 Currently drin ks alcohol 04/13/2024 Sexually Active? [...] No Inactive Date A ctive SIMVASTATIN RxNorm: 73201 04/13/2024 No Inactive D ate Active Penicillin Unknown 04/13/2024 No Inactive Date A ctive CLOPIDOGREL Unknown 03/23/2024 No Inactive Date Active naproxen RxNorm: 7258 04/13/2024 No Inactive Date Active levofloxacin RxNorm: 98857 03/23/2024 No Inactive Date Active Levemir Unknown 03/23/2024 No Inactive Date Ac tive metformin RxNorm: 486874 04/13/2024 No Inactive Da te Active ESTROGENS Unknown 03/23/2024 No Inactive Date Ac tive Atenolol RxNorm: 1202 04/13/2024 No Inactive Date Active metoprolol succinate RxNorm: 122020 03/23/2024 No Inactive Date Active Januvia RxNorm: 946030 04/13/2024 No Inactive Da te Active furosemide RxNorm: 4603 03/23/2024 No Inactive Balaji e Active azithromycin RxNorm: 07140 04/13/2024 No Inactive Date Active losartan RxNorm: 972470 04/13/2024 No Inactive Da te Active NSAIDS Unknown 03/23/2024 No Inactive Date Ac tive Amlodipine RxNorm: 222754 04/13/2024 No Inactive D ate Active LISINOPRIL RxNorm: 09296 04/13/2024 No Inactive Da te Active PIOGLITAZONE DERIVATIVES Unknown 04/13/2024 No I nactive Date Active Problems Condition Codes Effective Dates Condition St atus ACP (advance care planning) SNOMED CT: 3 48916282 ICD-10: Z71.89 ICD-9: V65.49 06/01/2024 Active Acute cystitis without hematuria SNOMED CT: 70575819 ICD-10: N30.00 ICD-9: 595.0 06/01/2024 Active Adult general medical exam SNOMED CT: 30 4830632 ICD-10: Z00.00 ICD-9: V70.9 06/01/2024 Active Atherosclerosis of coronary artery of [place] heart without angina pectoris, unspecified vessel or [...] ICD-9: 311 06/01/[address]: 996703597 ICD-10: R54 ICD-9: 797 06/01/2024 Active Iron [...] chcf insulin use ICD-10: E11.9 ICD-9: 250.00 06/01/2024 [...] fracture of L1 vertebra, sequela SNOMED CT: 256694128 ICD-10: S32.010S ICD-9: 905.1 04/13/2024 Active Dementia in other diseases classified elsewhere, unspecified severity, without behavioral disturbance, psychotic disturbance, mood disturbance, and anxiety ICD-10: F02.80 04/13/[address]: 673488181 ICD-10: K57.90 ICD-9: 562.10 04/13/2024 Active History of breast cancer SNOMED CT: 4290 96448 ICD-10: Z85.3 ICD-9: V10.3 04/13/2024 Active History of melanoma SNOMED CT: 935790960 ICD-10: Z85.820 ICD-9: V10.82 04/13/2024 Active History of TIA (transient ischemic attack) SNOMED CT: 837400662 ICD-10: Z86.73 ICD-9: V12.54 04/13/2024 Active Hyperlipidemia, unspecified hyperlipidemia type SNOMED CT: 63283299 ICD-10: E78.5 ICD-9: 272.4 04/13/2024 Active Statin intolerance SNOMED CT: 224483272 ICD-10: Z78.9 ICD-9: 995.27 04/13/2024 Active Urinary incontinence, unspecified type SNOMED CT: 599399103 ICD-10: R32 ICD-9: 788.30 04/13/2024 Active Vascular dementia, unspecifi ed severity, without behavioral disturbance, psychotic disturbance, mood disturbance, and anxiety ICD-10: F01.50 04/13/2024 Active Medications Medication Codes Instructions Start Date Stop Date Status Fill Instructions albuterol sulfate HFA 90 mcg/actuation aerosol inhaler RxNorm: 3394412 Inhale 2 Puff(s) Inhalation Q4H every four hours as needed 06/01/19 25 No Stop Date Active Alejandra Protect (zinc oxide) 12 % topical cream RxNorm: 637562 cream Topical apply to right buttocks BID and PRN with soiling 06/01/19 25 025 Inactive Lantus Solostar U-100 Insulin 100 unit/mL (3 mL) subcutaneous pen RxNorm: 390715 Unit(s) Subcutaneous prime en with 2 units, then inject 8 units SQ QD at bedtime 05/18/19 25 026 Active potassium chloride ER 10 mEq tablet,extended release RxNorm: 265950 Take 1 Tablet(s) Oral QD 04/12/19 25 No Stop Date Active fluoxetine 10 mg capsule RxNorm: 656326 Take 1 Capsule(s) Oral QD 04/12/19 25 No Stop Date Active hydrochlorothiazide 25 mg tablet RxNorm: 838744 Take 1 Tablet(s) Oral QD 04/12/19 25 No Stop Date Active Oyster Shell Calcium 500 mg (as calcium carbonate 1,250 mg) tablet RxNorm: 956374 Take 1 Tablet(s) Oral QD 04/12/19 25 No Stop Date Active Co Q-10 200 mg capsule RxNorm: 712759 Capsule(s) Oral take 1 cap po daily with 100mg tab to =300mg daily 04/12/19 25 No Stop Date Active Co Q-10 100 mg capsule RxNorm: 049124 Capsule(s) Oral take 1 cap daily along with 200mg tab to =300mg daily 04/12/19 25 No Stop Date Active quetiapine 25 mg tablet RxNorm: 133110 Take 1 Tablet(s) Oral QHS every night at bedtime 04/12/19 25 No Stop Date Active Vitamin D3 25 mcg (1,000 unit) tablet RxNorm: 555701 Take 1 Tablet(s) Oral QD 04/12/19 25 No Stop Date Active acetaminophen 500 mg tablet RxNorm: 322456 Take 2 Tablet(s) Oral TID as needed 04/12/19 25 No Stop Date Active donepezil 10 mg tablet RxNorm: 518106 Take 1 Tablet(s) Oral QHS every night at bedtime 04/12/19 25 No Stop Date Active cyanocobalamin (vit B-12) 500 mcg tablet RxNorm: 642459 Take 1 Tablet(s) Oral QD 04/12/19 25 No Stop Date Active oxybutynin chloride ER 10 mg tablet,extended release 24 hr RxNorm: 918329 Take 1 Tablet(s) Oral QPM every evening 04/12/19 25 No Stop Date Active irbesartan 150 mg tablet RxNorm: 265039 Take 1 Tablet(s) Oral BID 04/12/19 25 No Stop Date Active Trelegy Ellipta 200 mcg-62.5 mcg-25 mcg powder for inhalation RxNorm: 7884549 Inhale 1 Puff(s) Inhalation every 24 hours 04/12/19 25 No Stop Date Active Vitron-C 65 mg iron-125 mg tablet,delayed release RxNorm: 0567341 Take 1 Tablet(s) Oral QOD every other day 04/12/19 25 No Stop Date Active Eliquis 5 mg tablet RxNorm: 9957932 Take 1 Tablet(s) Oral BID 04/12/19 25 025 Inactive Lantus Solostar U-100 Insulin 100 unit/mL (3 mL) subcutaneous pen RxNorm: 986715 Unit(s) Subcutaneous prime en with 2 units, [...] Result Date Service Location CBC with Platelets HEY062 WBC COUNT (AUTOMATED) 4.1 10e3/uL 06/05/19 25 Unknown CBC with Platelets QUC117 RBC COUNT 789-8 4.37 10e6/uL 06/05/19 25 Unknown CBC with Platelets NPP604 Hemoglobin 718-7 13.5 g/dL 06/05/19 25 Unknown CBC with Platelets MTB583 Hematocrit 4544-3 42.8 % 06/05/19 25 Unknown CBC with Platelets EDQ238 MCV 787-2 98 fL 06/05/19 25 Unknown CBC with Platelets DBV000 MCH 30.9 pg 06/05/19 25 Unknown CBC with Platelets VIJ480 MCHC 31.5 g/dL 06/05/19 25 Unknown CBC with Platelets IUG346 RDW 16.5 % 06/05/19 25 Unknown CBC with Platelets EAG460 Platelet Count 777-3 181 10e3/uL 06/05/19 25 Unknown Hemoglobin A1c LAB90 EST AVERAGE GLUCOSE 151 mg/dL 06/05/19 25 Unknown Hemoglobin A1c LAB90 Hemoglobin A1c 26830-9 6.9 % 06/05/19 25 Unknown Glucose UVJ3636 Sodium 140 mmol/L 06/05/19 25 Unknown Glucose VSI6613 POTASSIUM (XU) 2823-3 3.5 mmol/L 06/05/19 25 Unknown Glucose RGI0515 CHLORIDE (XU) 100 mmol/L 06/05/19 25 Unknown Glucose UJL7727 CO2 (XU) 28 mmol/L 06/05/19 25 Unknown Glucose OFB4649 ANION GAP (XU) 12 mmol/L 06/05/19 25 Unknown Glucose ROM0310 UREA NITROGEN (XU) 13.7 mg/dL 06/05/19 25 Unknown Glucose ZDT1333 Creatinine 0.75 mg/dL 06/05/19 25 Unknown Glucose ODJ1105 GFR, ESTIMATE 73286-3 76 mL/min/1.7 3m2 06/05/19 25 Unknown Glucose EJH9960 Calcium 9.3 mg/dL 06/05/19 25 Unknown Basic Metabolic Panel FDP3372 POTASSIUM (XU) 2823-3 3.5 mmol/L 06/05/19 25 Unknown Basic Metabolic Panel YTM3396 CHLORIDE (XU) 100 mmol/L 06/05/19 25 Unknown Basic Metabolic Panel PDZ0037 CO2 (XU) 28 mmol/L 06/05/19 25 Unknown Basic Metabolic Panel LJH1971 Calcium 9.3 mg/dL 06/05/19 25 Unknown Basic Metabolic Panel BVA6999 ANION GAP (XU) 12 mmol/L 06/05/19 25 Unknown Basic Metabolic Panel IZH2336 Creatinine 0.75 mg/dL 06/05/19 25 Unknown Basic Metabolic Panel AKE6971 GLUCOSE (XU) 2345-7 79 mg/dL 06/05/19 25 Unknown Basic Metabolic Panel YDA4929 Sodium 140 mmol/L 06/05/19 25 Unknown Basic Metabolic Panel PKE5942 UREA NITROGEN (XU) 13.7 mg/dL 06/05/19 Unknown Basic Metabolic Panel DSE8687 GFR, ESTIMATE 15935-8 76 mL/min/1.7 3m2 06/05/19 Unknown PHQ9 PHQ9 70451-8 1 06/02/19 Unknown Procedures Procedure Codes Date PT INELIG NEG SCRN DEPRES SNOMED CT: 428 [id number] CPT-4: G8510 06/01/2024 Vital Signs Date Vital 06/01/2024 Blood Pressure 1: 150/90 Code: 8480-6 BMI: NaN Code: 30544-3 Heart Rate 1: 71 bpm Code: 8867-4 [...] (AWV), Subsequent Diagnosis: Adult general medical exam[SNOMED: 908348218] Diagnosis: ACP (advance care planning)[SNOMED: 395492559] Diagnosis: Frailty[SNOMED: 577350218] Diagnosis: Atherosclerosis of coronary artery of [place] heart without angina pectoris, unspecified vessel or [...] 2 diabetes mellitus without complication, unspecified whether long term care social worker insulin use[ICD10: E11.9] Diagnosis: Unintentional weight loss[ICD10: R63.4] Diagnosis: Unsteady gait[ICD10: R26.81] Diagnosis: Venous insufficiency of both lower extremities[ICD10: I87.2] Diagnosis: Acute cystitis without hematuria[SNOMED: 70685027] Diagnosis: Pressure injury of left buttock, stage 2[ICD10: L89.322] Teresa Talbot [address] [address] CPT-4: G0439 06/01/2024 ([id number]) Home Visit - Est Pt, moderate Diagnosis: Adult general medical exam[SNOMED: 486749898] Diagnosis: ACP (advance care planning)[SNOMED: 596985777] Diagnosis: Frailty[SNOMED: 357121222] Diagnosis: Atherosclerosis of coronary artery of [place] heart without angina pectoris, unspecified vessel or [...] 2 diabetes mellitus without complication, unspecified whether long term care social worker insulin use[ICD10: E11.9] Diagnosis: Unintentional weight loss[ICD10: R63.4] Diagnosis: Unsteady gait[ICD10: R26.81] Diagnosis: Venous insufficiency of both lower extremities[ICD10: I87.2] Diagnosis: Acute cystitis without hematuria[SNOMED: 85586233] Diagnosis: Pressure injury of left buttock, stage 2[ICD10: L89.322] Teresa Talbot [facility] [address] [place] [address] CPT-4: 29040 06/01/2024 Plan of Care Planned Activity Notes Codes Status Date Patient Education: Patient Medication Summary Completed 06/01/2024 Patient Education: Influenza Complet ed 06/01/2024 Patient Education: Addiction and Substance Abuse Completed 06/01/2024 Patient Education: Alzheimer''s Disease Completed 06/01/2024 Patient Education: Dementia Complete d 06/01/2024 Patient Education: Exercise and Fitness Completed 06/01/2024 Appointment: Michela Talbot WPtel: [address] [place], [place] [phone] DECK ENGINEER 04/13/2024 Instructions Comment Date Alyx resides at [facility] since about 2021. Previously lived independently in [place]. . Has one daughter Maggie who is involved in healthcare. PMH: History of breast cancer and melanoma, mixed dementia, depression, CAD, HLD, history of CVA/TIA, compression fx of L1 vertebrae, urinary incontinence, hearing loss, osteopeniaPrimary contact: Maggie Gallegos (Daughter)Code Status: DNR/[facility]Lab Schedule: Mar/SepSpecialists: [facility] (Q6M), Cardiology [facility] (MD Echo) 06/11/2024 Unsteady gait Unsteady [...] 2 diabetes mellitus without complication, unspecified whether long term care social worker insulin use Sugars reviewed; remain in 80s-100s. [...] of care. Atherosclerosis of coronary artery of [place] heart without angina pectoris, unspecified vessel or [...]
--- OUTSIDE RECORDS SUMMARY | 2024-07-03 20:48 | XMS_ITS | CCD ---
Author Name Linda Vivas Address [address] [facility] [address] [place] [address] Phone Organization [facility] Phone Care Team Providers Care Component Design Engineer Name Role Phone Teresa Vivas Primary Care Provider Un available Unavailable Chronic Care Management Unavaila ble Summary Purpose DataExchange Insurance Providers Payer name Policy type / Coverage type Covered libertarian ID Effective Begin Date Effective End Date BCBS of [facility] Medicare Risk [id number] Unknown Un known Family history Mother Diagnosis Age At Onset Stroke Unknown Social History Social History Element Codes Description Effec tive Dates Marital status Unknown 04/13/2024 Marital status Unknown 04/13/2024 Living arrangements Unknown Assisted Living 04/[address]: 1583220 Former smoker 04/[address]: 3651553 Former smoker 04/[address]: 124520833 No Alcohol Consum ption 04/13/[address]: 396684 Currently drin ks alcohol 04/13/2024 Sexually Active? [...] No Inactive Date A ctive SIMVASTATIN RxNorm: 10753 04/13/2024 No Inactive D ate Active Penicillin Unknown 04/13/2024 No Inactive Date A ctive CLOPIDOGREL Unknown 03/23/2024 No Inactive Date Active naproxen RxNorm: 7258 04/13/2024 No Inactive Date Active levofloxacin RxNorm: 17402 03/23/2024 No Inactive Date Active Levemir Unknown 03/23/2024 No Inactive Date Ac tive metformin RxNorm: 646412 04/13/2024 No Inactive Da te Active ESTROGENS Unknown 03/23/2024 No Inactive Date Ac tive Atenolol RxNorm: 1202 04/13/2024 No Inactive Date Active metoprolol succinate RxNorm: 538024 03/23/2024 No Inactive Date Active Januvia RxNorm: 188773 04/13/2024 No Inactive Da te Active furosemide RxNorm: 4603 03/23/2024 No Inactive Balaji e Active azithromycin RxNorm: 64496 04/13/2024 No Inactive Date Active losartan RxNorm: 711116 04/13/2024 No Inactive Da te Active NSAIDS Unknown 03/23/2024 No Inactive Date Ac tive Amlodipine RxNorm: 093636 04/13/2024 No Inactive D ate Active LISINOPRIL RxNorm: 58411 04/13/2024 No Inactive Da te Active PIOGLITAZONE DERIVATIVES Unknown 04/13/2024 No I nactive Date Active Problems Condition Codes Effective Dates Condition St atus Acute cystitis without hematuria ICD-10: N30.00 ICD-9: 595.0 06/29/2024 Active Chronic heart failure with preserved ejection fraction ICD-10: I50.32 ICD-9: 428.9 06/29/2024 Active Chronic obstructive pulmonar y disease, unspecified COPD type ICD-10: J44.9 ICD-9: 496 06/29/2024 Active Iron deficiency anemia, unspecified iron deficiency anemia type ICD-10: D50.9 ICD-9: 280.9 06/29/2024 Active Type 2 diabetes mellitus without complication, unspecified whether assistant terminal manager insulin use ICD-10: E11.9 ICD-9: 250.00 06/29/2024 Active ACP (advance care planning) SNOMED CT: 3 27898579 ICD-10: Z71.89 ICD-9: V65.49 06/01/2024 Active Adult general medical exam SNOMED CT: 30 5146312 ICD-10: Z00.00 ICD-9: V70.9 06/01/2024 Active Atherosclerosis of coronary artery of [place] heart without angina pectoris, unspecified vessel or lesion type ICD-10: I25.10 ICD-9: 414.01 06/01/2024 Active Atrial fibrillation, unspecified type ICD-10: I48.91 ICD-9: 427.31 06/01/2024 Active 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 ICD-9: 311 06/01/[address]: 520369002 ICD-10: R54 ICD-9: 797 06/01/2024 Active 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 ICD-9: 331.0 06/01/2024 Active CAMILO (obstructive sleep apnea) ICD-10: G4 7.33 ICD-9: 327.23 06/01/2024 Active Osteopenia, unspecified location ICD-10: M85.80 ICD-9: 733.90 06/01/2024 Active Pressure injury of left buttock, stage 2 ICD-10: L89.322 ICD-9: 707.05 06/01/2024 Active Primary hypertension ICD-10: I10 ICD-9: 401.9 06/01/2024 Active Unintentional weight loss ICD-10: R63.4 ICD-9: 783.21 06/01/2024 Active Unsteady gait ICD-10: R26.81 ICD-9: 781.2 06/01/2024 Active Venous insufficiency of both lower extremities ICD-10: I87.2 ICD-9: 459.81 06/01/2024 Active Advanced care planning - to document end of life discussions Unknown 04/13/2024 Active Diabetes mellitus Type 2 Unknown 04/13/2024 Act floyd Compression fracture of L1 vertebra, sequela SNOMED CT: 632127786 ICD-10: S32.010S ICD-9: 905.1 04/13/2024 Active Dementia in other diseases classified elsewhere, unspecified severity, without behavioral disturbance, psychotic disturbance, mood disturbance, and anxiety ICD-10: F02.80 04/13/[address]: 651592415 ICD-10: K57.90 ICD-9: 562.10 04/13/2024 Active History of breast cancer SNOMED CT: 4290 80284 ICD-10: Z85.3 ICD-9: V10.3 04/13/2024 Active History of melanoma SNOMED CT: 840594120 ICD-10: Z85.820 ICD-9: V10.82 04/13/2024 Active History of TIA (transient ischemic attack) SNOMED CT: 754343719 ICD-10: Z86.73 ICD-9: V12.54 04/13/2024 Active Hyperlipidemia, unspecified hyperlipidemia type SNOMED CT: 66548810 ICD-10: E78.5 ICD-9: 272.4 04/13/2024 Active Statin intolerance SNOMED CT: 283778682 ICD-10: Z78.9 ICD-9: 995.27 04/13/2024 Active Urinary incontinence, unspecified type SNOMED CT: 864591362 ICD-10: R32 ICD-9: 788.30 04/13/2024 Active Vascular dementia, unspecifi ed severity, without behavioral disturbance, psychotic disturbance, mood disturbance, and anxiety ICD-10: F01.50 04/13/2024 Active Medications Medication Codes Instructions Start Date Stop Date Status Fill Instructions Alejandra Protect (zinc oxide) 12 % topical cream RxNorm: 040846 APPLY TO RIGHT BUTTOCK 2 TIMES DAILY;APPLY TO RIGHT BUTTOCK NEEDED WITH SOILING 06/12/19 25 026 Active albuterol sulfate HFA 90 mcg/actuation aerosol inhaler RxNorm: 3599175 Inhale 2 Puff(s) Inhalation Q4H every four hours as needed 06/01/19 25 No Stop Date Active Alejandra Protect (zinc oxide) 12 % topical cream RxNorm: 812381 cream Topical apply to right buttocks BID and PRN with soiling 06/01/19 25 025 Inactive Lantus Solostar U-100 Insulin 100 unit/mL (3 mL) subcutaneous pen RxNorm: 502355 Unit(s) Subcutaneous prime en with 2 units, then inject 8 units SQ QD at bedtime 05/18/19 25 026 Active potassium chloride ER 10 mEq tablet,extended release RxNorm: 493785 Take 1 Tablet(s) Oral QD 04/12/19 25 No Stop Date Active fluoxetine 10 mg capsule RxNorm: 480723 Take 1 Capsule(s) Oral QD 04/12/19 25 No Stop Date Active hydrochlorothiazide 25 mg tablet RxNorm: 536699 Take 1 Tablet(s) Oral QD 04/12/19 25 No Stop Date Active Oyster Shell Calcium 500 mg (as calcium carbonate 1,250 mg) tablet RxNorm: 240463 Take 1 Tablet(s) Oral QD 04/12/19 25 No Stop Date Active Co Q-10 200 mg capsule RxNorm: 272819 Capsule(s) Oral take 1 cap po daily with 100mg tab to =300mg daily 04/12/19 25 No Stop Date Active Co Q-10 100 mg capsule RxNorm: 939212 Capsule(s) Oral take 1 cap daily along with 200mg tab to =300mg daily 04/12/19 25 No Stop Date Active quetiapine 25 mg tablet RxNorm: 287177 Take 1 Tablet(s) Oral QHS every night at bedtime 04/12/19 25 No Stop Date Active Vitamin D3 25 mcg (1,000 unit) tablet RxNorm: 751190 Take 1 Tablet(s) Oral QD 04/12/19 25 No Stop Date Active acetaminophen 500 mg tablet RxNorm: 761710 Take 2 Tablet(s) Oral TID as needed 04/12/19 25 No Stop Date Active donepezil 10 mg tablet RxNorm: 184727 Take 1 Tablet(s) Oral QHS every night at bedtime 04/12/19 25 No Stop Date Active cyanocobalamin (vit B-12) 500 mcg tablet RxNorm: 437729 Take 1 Tablet(s) Oral QD 04/12/19 25 No Stop Date Active oxybutynin chloride ER 10 mg tablet,extended release 24 hr RxNorm: 233552 Take 1 Tablet(s) Oral QPM every evening 04/12/19 25 No Stop Date Active irbesartan 150 mg tablet RxNorm: 651213 Take 1 Tablet(s) Oral BID 04/12/19 25 No Stop Date Active Trelegy Ellipta 200 mcg-62.5 mcg-25 mcg powder for inhalation RxNorm: 9263240 Inhale 1 Puff(s) Inhalation every 24 hours 04/12/19 25 No Stop Date Active Vitron-C 65 mg iron-125 mg tablet,delayed release RxNorm: 3020349 Take 1 Tablet(s) Oral QOD every other day 04/12/19 25 No Stop Date Active Eliquis 5 mg tablet RxNorm: 7599268 Take 1 Tablet(s) Oral BID 04/12/19 25 025 Inactive Lantus Solostar U-100 Insulin 100 unit/mL (3 mL) subcutaneous pen RxNorm: 763689 Unit(s) Subcutaneous prime en with 2 units, [...] Tetanus, Diptheria, Pertussis CVX: 09 1.0 1994 Procedures Procedure Codes Date HG A1C LEVEL LT 7.0% CPT-4: 3044F 06/29/2024 Vital Signs Date Vital 06/29/2024 Blood Pressure 1: 132/82 Code: 8480-6 Heart Rate 1: 66 bpm Code: 8867-4 Respiratory Rate: 18 bpm SpO2: 95% Temperature: 36.3 (C) / 97.3 (F) Functional Status Functional / Cognitive Codes [...] Encounter Performer Location Location Address Codes Date ([id number]) Home Visit - Est Pt, moderate Diagnosis: Acute cystitis without hematuria[ICD10: N30.00] Diagnosis: Chronic heart failure with preserved ejection fraction[ICD10: I50.32] Diagnosis: Iron deficiency anemia, unspecified iron deficiency anemia type[ICD10: D50.9] Diagnosis: Type 2 diabetes mellitus without complication, unspecified whether senior living insulin use[ICD10: E11.9] Diagnosis: Chronic obstructive pulmonary disease, unspecified COPD type[ICD10: J44.9] Teresa Talbot [facility] [address] [place] [address] CPT-4: 79866 06/29/2024 Plan of Care Planned Activity Notes Codes Status Date Patient Education: Patient Medication Summary Completed 06/29/2024 Patient Education: Influenza Complet ed 06/29/2024 Appointment: Michela Talbot WPtel: [address] [place], [place] [phone] MEDICAL RECORDS LIBRARY PROFESSOR 04/13/2024 Instructions Comment Date Alyx resides at [facility] since about 2021. Previously lived independently in [place]. . Has one daughter Maggie who is involved in healthcare. PMH: History of breast cancer and melanoma, mixed dementia, depression, CAD, HLD, history of CVA/TIA, compression fx of L1 vertebrae, urinary incontinence, hearing loss, osteopeniaPrimary contact: Maggiesaleem Gallegos (Daughter)Code Status: DNR/[facility]Lab Schedule: Mar/SepSpecialists: [facility] (Q6M), Cardiology [facility] (MD Echo) 06/11/2024 Type 2 diabetes mellitus wit hout complication, unspecified whether assistant terminal manager insulin use Sugars reviewed; most readings < 100, denies symptomatic hypoglycemia. A1c 6.9%, stable Continues on lantus 8 units QHS Acute cystitis without hematuria She was found to have pseudomonas infection last month upon UC result. Treated with ciprofloxacin as POA does not recall any true allergy to this although it is listed under her allergies. Iron deficiency anemia, unspecified iron deficiency anemia type Hgb 13.5, stable. Continues on vitron-c and vitamin B12 supplement. Chronic obstructive pulmonary disease, unspecified COPD type Denies SOB exacerbation on exam. Some labored breathing with tasks, no cough, lungs CTA when standing. Continue on trelegy QD and albuterol prn. Chronic heart failure with preserved ejection fraction BMP reviewed; GFR 76, Cr 0.75, stable. Denies chest pain or SOB. Lungs CTA on exam. She continues on HCTZ and potassium supplement for diuresis. Uses walker as gait aid. States she has an appointment today with a doctor, she does follow with outside cardiology team.. 06/29/2024
--- OUTSIDE RECORDS SUMMARY | 2024-07-03 20:48 | XMS_ITS | CCD ---
Author Name Linda Vivas Address [address] [place] [address] Phone Organization [facility] Phone Care Team Providers Care Rn Maternal Child Name Role Phone Teresa Vivas Primary Care Provider Un available Unavailable Chronic Care Management Unavaila ble Summary Purpose DataExchange Insurance Providers Payer name Policy type / Coverage type Covered constitution party ID Effective Begin Date Effective End Date BCBS of [facility] Medicare Risk [id number] Unknown Un known Family history Mother Diagnosis Age At Onset Stroke Unknown Social History Social History Element Codes Description Effec tive Dates Marital status Unknown 04/13/2024 Marital status Unknown 04/13/2024 Living arrangements Unknown Assisted Living 04/[address]: 4933079 Former smoker 04/[address]: 1120071 Former smoker 04/[address]: 713920638 No Alcohol Consum ption 04/13/[address]: 531684 Currently drin ks alcohol 04/13/2024 Sexually Active? [...] No Inactive Date A ctive SIMVASTATIN RxNorm: 86932 04/13/2024 No Inactive D ate Active Penicillin Unknown 04/13/2024 No Inactive Date A ctive CLOPIDOGREL Unknown 03/23/2024 No Inactive Date Active naproxen RxNorm: 7258 04/13/2024 No Inactive Date Active levofloxacin RxNorm: 23935 03/23/2024 No Inactive Date Active Levemir Unknown 03/23/2024 No Inactive Date Ac tive metformin RxNorm: 758153 04/13/2024 No Inactive Da te Active ESTROGENS Unknown 03/23/2024 No Inactive Date Ac tive Atenolol RxNorm: 1202 04/13/2024 No Inactive Date Active metoprolol succinate RxNorm: 076012 03/23/2024 No Inactive Date Active Januvia RxNorm: 731800 04/13/2024 No Inactive Da te Active furosemide RxNorm: 4603 03/23/2024 No Inactive Balaji e Active azithromycin RxNorm: 95485 04/13/2024 No Inactive Date Active losartan RxNorm: 009122 04/13/2024 No Inactive Da te Active NSAIDS Unknown 03/23/2024 No Inactive Date Ac tive Amlodipine RxNorm: 855543 04/13/2024 No Inactive D ate Active LISINOPRIL RxNorm: 17385 04/13/2024 No Inactive Da te Active PIOGLITAZONE [...] 2 diabetes mellitus without complication, unspecified whether predatory animal exterminator insulin use ICD-10: E11.9 ICD-9: 250.00 06/29/2024 Active ACP (advance care planning) SNOMED CT: 3 89690350 ICD-10: Z71.89 ICD-9: V65.49 06/01/2024 Active Adult general medical exam SNOMED CT: 30 9228410 ICD-10: Z00.00 ICD-9: V70.9 06/01/2024 Active Atherosclerosis of coronary artery of [place] heart without angina pectoris, unspecified vessel or lesion type ICD-10: I25.10 ICD-9: 414.01 06/01/2024 Active Atrial fibrillation, unspecified type ICD-10: I48.91 ICD-9: 427.31 06/01/2024 Active 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 ICD-9: 311 06/01/[address]: 991658643 ICD-10: R54 ICD-9: 797 06/01/2024 Active Mixed [...] fracture of L1 vertebra, sequela SNOMED CT: 577200067 ICD-10: S32.010S ICD-9: 905.1 04/13/2024 Active Dementia in other diseases classified elsewhere, unspecified severity, without behavioral disturbance, psychotic disturbance, mood disturbance, and anxiety ICD-10: F02.80 04/13/[address]: 854190521 ICD-10: K57.90 ICD-9: 562.10 04/13/2024 Active History of breast cancer SNOMED CT: 4290 62048 ICD-10: Z85.3 ICD-9: V10.3 04/13/2024 Active History of melanoma SNOMED CT: 438496619 ICD-10: Z85.820 ICD-9: V10.82 04/13/2024 Active History of TIA (transient ischemic attack) SNOMED CT: 325736979 ICD-10: Z86.73 ICD-9: V12.54 04/13/2024 Active Hyperlipidemia, unspecified hyperlipidemia type SNOMED CT: 09771174 ICD-10: E78.5 ICD-9: 272.4 04/13/2024 Active Statin intolerance SNOMED CT: 783446016 ICD-10: Z78.9 ICD-9: 995.27 04/13/2024 Active Urinary incontinence, unspecified type SNOMED CT: 136578373 ICD-10: R32 ICD-9: 788.30 04/13/2024 Active Vascular dementia, unspecifi ed severity, without behavioral disturbance, psychotic disturbance, mood disturbance, and anxiety ICD-10: F01.50 04/13/2024 Active Medications Medication Codes Instructions Start Date Stop Date Status Fill Instructions Alejandra Protect (zinc oxide) 12 % topical cream RxNorm: 147580 APPLY TO RIGHT BUTTOCK 2 TIMES DAILY;APPLY TO RIGHT BUTTOCK NEEDED WITH SOILING 06/12/19 25 026 Active albuterol sulfate HFA 90 mcg/actuation aerosol inhaler RxNorm: 9380921 Inhale 2 Puff(s) Inhalation Q4H every four hours as needed 06/01/19 25 No Stop Date Active Alejandra Protect (zinc oxide) 12 % topical cream RxNorm: 144633 cream Topical apply to right buttocks BID and PRN with soiling 06/01/19 25 025 Inactive Lantus Solostar U-100 Insulin 100 unit/mL (3 mL) subcutaneous pen RxNorm: 273613 Unit(s) Subcutaneous prime en with 2 units, then inject 8 units SQ QD at bedtime 05/18/19 25 026 Active potassium chloride ER 10 mEq tablet,extended release RxNorm: 113546 Take 1 Tablet(s) Oral QD 04/12/19 25 No Stop Date Active fluoxetine 10 mg capsule RxNorm: 065255 Take 1 Capsule(s) Oral QD 04/12/19 25 No Stop Date Active hydrochlorothiazide 25 mg tablet RxNorm: 645951 Take 1 Tablet(s) Oral QD 04/12/19 25 No Stop Date Active Oyster Shell Calcium 500 mg (as calcium carbonate 1,250 mg) tablet RxNorm: 249998 Take 1 Tablet(s) Oral QD 04/12/19 25 No Stop Date Active Co Q-10 200 mg capsule RxNorm: 100691 Capsule(s) Oral take 1 cap po daily with 100mg tab to =300mg daily 04/12/19 25 No Stop Date Active Co Q-10 100 mg capsule RxNorm: 515897 Capsule(s) Oral take 1 cap daily along with 200mg tab to =300mg daily 04/12/19 25 No Stop Date Active quetiapine 25 mg tablet RxNorm: 934463 Take 1 Tablet(s) Oral QHS every night at bedtime 04/12/19 25 No Stop Date Active Vitamin D3 25 mcg (1,000 unit) tablet RxNorm: 583456 Take 1 Tablet(s) Oral QD 04/12/19 25 No Stop Date Active acetaminophen 500 mg tablet RxNorm: 391098 Take 2 Tablet(s) Oral TID as needed 04/12/19 25 No Stop Date Active donepezil 10 mg tablet RxNorm: 756980 Take 1 Tablet(s) Oral QHS every night at bedtime 04/12/19 25 No Stop Date Active cyanocobalamin (vit B-12) 500 mcg tablet RxNorm: 774984 Take 1 Tablet(s) Oral QD 04/12/19 25 No Stop Date Active oxybutynin chloride ER 10 mg tablet,extended release 24 hr RxNorm: 736219 Take 1 Tablet(s) Oral QPM every evening 04/12/19 25 No Stop Date Active irbesartan 150 mg tablet RxNorm: 853795 Take 1 Tablet(s) Oral BID 04/12/19 25 No Stop Date Active Trelegy Ellipta 200 mcg-62.5 mcg-25 mcg powder for inhalation RxNorm: 3709281 Inhale 1 Puff(s) Inhalation every 24 hours 04/12/19 25 No Stop Date Active Vitron-C 65 mg iron-125 mg tablet,delayed release RxNorm: 8877628 Take 1 Tablet(s) Oral QOD every other day 04/12/19 25 No Stop Date Active Eliquis 5 mg tablet RxNorm: 6624449 Take 1 Tablet(s) Oral BID 04/12/19 25 025 Inactive Lantus Solostar U-100 Insulin 100 unit/mL (3 mL) subcutaneous pen RxNorm: 548547 Unit(s) Subcutaneous prime en with 2 units, [...] Result Date Service Location CBC with Platelets HLN082 WBC COUNT (AUTOMATED) 4.1 10e3/uL 06/05/19 25 Unknown CBC with Platelets TNW096 RBC COUNT 789-8 4.37 10e6/uL 06/05/19 25 Unknown CBC with Platelets NHH567 Hemoglobin 718-7 13.5 g/dL 06/05/19 25 Unknown CBC with Platelets VMG319 Hematocrit 4544-3 42.8 % 06/05/19 25 Unknown CBC with Platelets DJR726 MCV 787-2 98 fL 06/05/19 25 Unknown CBC with Platelets IBP025 MCH 30.9 pg 06/05/19 25 Unknown CBC with Platelets HIF384 MCHC 31.5 g/dL 06/05/19 25 Unknown CBC with Platelets RZD963 RDW 16.5 % 06/05/19 25 Unknown CBC with Platelets UWB411 Platelet Count 777-3 181 10e3/uL 06/05/19 25 Unknown Hemoglobin A1c LAB90 EST AVERAGE GLUCOSE 151 mg/dL 06/05/19 25 Unknown Hemoglobin A1c LAB90 Hemoglobin A1c 60448-1 6.9 % 06/05/19 25 Unknown Glucose CUK5277 Sodium 140 mmol/L 06/05/19 25 Unknown Glucose JOZ3647 POTASSIUM (XU) 2823-3 3.5 mmol/L 06/05/19 25 Unknown Glucose OQR4917 CHLORIDE (XU) 100 mmol/L 25 Unknown Glucose ZCI7378 CO2 (XU) 28 mmol/L 06/05/19 25 Unknown Glucose GWD9110 ANION GAP (XU) 12 mmol/L 06/05/19 25 Unknown Glucose BHZ3278 UREA NITROGEN (XU) 13.7 mg/dL 06/05/19 25 Unknown Glucose KFL7484 Creatinine 0.75 mg/dL 06/05/19 25 Unknown Glucose LFK7617 GFR, ESTIMATE 89970-9 76 mL/min/1.73m 2 06/05/19 25 Unknown Glucose SPF0327 Calcium 9.3 mg/dL 06/05/19 25 Unknown Basic Metabolic Panel [id number] POTASSIUM (XU) 2823-3 3.5 mmol/L 06/05/19 25 Unknown Basic Metabolic Panel OSI4829 CHLORIDE (XU) 100 mmol/L 06/05/19 25 Unknown Basic Metabolic Panel [id number] Calcium 9.3 mg/dL 06/05/19 25 Unknown Basic Metabolic Panel VXP6956 CO2 (XU) 28 mmol/L 06/05/19 25 Unknown Basic Metabolic Panel [id number] Creatinine 0.75 mg/dL 06/05/19 25 Unknown Basic Metabolic Panel UMP8743 GLUCOSE (XU) 2345-7 79 mg/dL 06/05/19 25 Unknown Basic Metabolic Panel ART3060 ANION GAP (XU) 12 mmol/L 06/05/19 Unknown Basic Metabolic Panel XQA4428 Sodium 140 mmol/L 06/05/19 Unknown Basic Metabolic Panel KBA3810 UREA NITROGEN (XU) 13.7 mg/dL 06/05/19 Unknown Basic Metabolic Panel [id number] GFR, ESTIMATE 78482-2 76 mL/min/1.73m 2 06/05/19 Unknown Urine Culture 43600 URINE CULTURE 58973-2 SEE RESU LTS BELOW 06/04/19 Unknown PHQ9 PHQ9 79839-1 1 06/02/19 Unknown UA with Microscopic 18482 COLOR Light Yellow 06/01/19 Unknown UA with Microscopic 96306 Appearance Slightly Cloudy 06/01/19 Unknown UA with Microscopic 35374 GLUCOSE, URINE Negative mg/dL 06/01/19 Unknown UA with Microscopic 85196 BILIRUBIN, URINE Negative 06/01/19 Unknown UA with Microscopic 80751 Ketones Urine Negative mg/dL 06/01/19 Unknown UA with Microscopic 10886 Specific Tow Urine 1.012 06/01/19 Unknown UA with Microscopic 73784 BLOOD, URINE Negative 06/01/19 Unknown UA with Microscopic 34281 pH Urine 6.5 06/01/19 Unknown UA with Microscopic 72880 Protein urine Negative mg/dL 06/01/19 Unknown UA with Microscopic 82373 UROBILINOGEN IRIS Normal mg/dL 06/01/19 Unknown UA with Microscopic 31600 Nitrites Positive 06/01/19 Unknown UA with Microscopic 40249 LEUK ESTERASE Trace 06/01/19 Unknown UA with Microscopic 92741 Bacteria Few /HPF 06/01/19 Unknown UA with Microscopic 39039 WBC CLUMPS 6690-2 Present /HPF 06/01/19 Unknown UA with Microscopic 52871 Mucus Urine Present /LPF 06/01/19 Unknown UA with Microscopic 76647 RBC Urine <1 /HPF 06/01/19 Unknown UA with Microscopic 49703 SQUAMOUS EPITHELIAL 2 /HPF 06/01/19 Unknown UA with Microscopic 62524 WBC Urine 01487-6 26 /HPF 06/01/19 Unknown Urine Culture 10501 URINE CULTURE 58085-4 SEE RESU LTS BELOW 05/23/19 Unknown UA with Microscopic 78194 COLOR Yellow 05/22/19 Unknown UA with Microscopic 31571 Appearance Slightly Cloudy 03/14/20 25 Unknown UA with Microscopic 96369 GLUCOSE, URINE Negative mg/dL 05/22/19 25 Unknown UA with Microscopic 74434 BILIRUBIN, URINE Negative 05/22/19 25 Unknown UA with Microscopic 99031 Ketones Urine Negative mg/dL 05/22/19 25 Unknown UA with Microscopic 09345 Specific Tow Urine 1.013 05/22/19 25 Unknown UA with Microscopic 10495 BLOOD, URINE Negative 05/22/19 25 Unknown UA with Microscopic 06585 pH Urine 6.5 05/22/19 25 Unknown UA with Microscopic 27441 Protein urine 10 mg/dL 05/22/19 25 Unknown UA with Microscopic 04434 UROBILINOGEN IRIS Normal mg/dL 05/22/19 25 Unknown UA with Microscopic 31343 Nitrites Positive 05/22/19 25 Unknown UA with Microscopic 95411 LEUK ESTERASE Large 05/22/19 25 Unknown UA with Microscopic 89007 Bacteria Few /HPF 05/22/19 25 Unknown UA with Microscopic 31239 Mucus Urine Present /LPF 05/22/19 25 Unknown UA with Microscopic 07935 RBC Urine 0 /HPF 05/22/19 25 Unknown UA with Microscopic 05631 SQUAMOUS EPITHELIAL 3 /HPF 05/22/19 25 Unknown UA with Microscopic 95253 WBC Urine 65417-0 24 /HPF 05/22/19 25 Unknown UA with Microscopic 83960 TRANSITIONAL EPI <1 /HPF 05/22/19 25 Unknown PHQ9 PHQ9 75862-6 2 04/13/19 25 Unknown SLUMS SLUMS 46809-0 13 04/13/19 25 Unknown Procedures Procedure Codes Date HG A1C LEVEL LT 7.0% CPT-4: 3044F 06/29/2024 PT INELIG NEG SCRN DEPRES SNOMED CT: 428 019354433291 CPT-4: G8510 06/01/2024 PT INELIG NEG SCRN DEPRES SNOMED CT: 428 149986759896 CPT-4: G8510 04/13/2024 Vital Signs Date Vital 06/29/2024 Blood Pressure 1: 132/82 Code: 8480-6 Heart Rate 1: 66 bpm Code: 8867-4 Respiratory Rate: 18 bpm SpO2: 95% Temperature: 36.3 (C) / 97.3 (F) 06/01/2024 Blood Pressure 1: 150/90 Code: 8480-6 BMI: NaN Code: 70048-6 Heart Rate 1: 71 bpm Code: 8867-4 Respiratory Rate: 16 bpm Temperature: 36.4 (C) / 97.5 (F) Weight: 206 lbs Code: 3141-9 05/04/2024 Blood Pressure 1: 154/95 Code: 8480-6 Heart Rate 1: 72 bpm Code: 8867-4 Respiratory Rate: 16 bpm SpO2: 96% Temperature: 36.7 (C) / 98.0 (F) 04/13/2024 Blood Pressure 1: 128/87 Code: 8480-6 [...] Encounter Performer Location Location Address Codes Date ([id number]) Home Visit - Est Pt, moderate Diagnosis: Acute cystitis without hematuria[ICD10: N30.00] Diagnosis: Chronic heart failure with preserved ejection fraction[ICD10: I50.32] Diagnosis: Iron deficiency anemia, unspecified iron deficiency anemia type[ICD10: D50.9] Diagnosis: Type 2 diabetes mellitus without complication, unspecified whether predatory animal exterminator insulin use[ICD10: E11.9] Diagnosis: Chronic obstructive pulmonary disease, unspecified COPD type[ICD10: J44.9] Teresa Talbot [address] [address] CPT-4: 66033 06/29/2024 ([id number]) Medicare Annual Wellness Visit (AWV), Subsequent Diagnosis: Adult general medical exam[SNOMED: 502766336] Diagnosis: ACP (advance care planning)[SNOMED: 384604662] Diagnosis: Frailty[SNOMED: 672950674] Diagnosis: Atherosclerosis of coronary artery of [place] heart without angina pectoris, unspecified vessel or [...] mellitus without complication, unspecified whether jail insulin use[ICD10: E11.9] Diagnosis: Unintentional weight loss[ICD10: R63.4] Diagnosis: Unsteady gait[ICD10: R26.81] Diagnosis: Venous insufficiency of both lower extremities[ICD10: I87.2] Diagnosis: Acute cystitis without hematuria[SNOMED: 31638465] Diagnosis: Pressure injury of left buttock, stage 2[ICD10: L89.322] Teresa Talbot [address] [address] CPT-4: G0439 06/01/2024 ([id number]) Home Visit - Est Pt, moderate Diagnosis: Adult general medical exam[SNOMED: 046867467] Diagnosis: ACP (advance care planning)[SNOMED: 004557165] Diagnosis: Frailty[SNOMED: 607932469] Diagnosis: Atherosclerosis of coronary artery of [place] heart without angina pectoris, unspecified vessel or [...] 2 diabetes mellitus without complication, unspecified whether predatory animal exterminator insulin use[ICD10: E11.9] Diagnosis: Unintentional weight loss[ICD10: R63.4] Diagnosis: Unsteady gait[ICD10: R26.81] Diagnosis: Venous insufficiency of both lower extremities[ICD10: I87.2] Diagnosis: Acute cystitis without hematuria[SNOMED: 21387517] Diagnosis: Pressure injury of left buttock, stage 2[ICD10: L89.322] [facility] [place] [address] CPT-4: 24185 06/01/2024 ([id number]) Home or Residence Visit Est Pt - Moderate Level, 40 mins 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] Diagnosis: Primary hypertension[ICD10: I10] Diagnosis: Pressure injury of left buttock, stage 2[SNOMED: 10718243293828] Diagnosis: Type 2 diabetes mellitus without complication, unspecified whether jail insulin use[ICD10: E11.9] [facility] [place] [address] CPT-4: 02499 05/04/2024 ([id number]) Home or Residence Visit PURIFICATION DIRECTOR - Moderate Level, 60 mins Diagnosis: Statin intolerance[SNOMED: 648128290] Diagnosis: Mixed Alzheimer and vascular dementia[SNOMED: 96424292470602] Diagnosis: Vascular dementia, unspecified severity, without behavioral disturbance, psychotic disturbance, mood disturbance, and anxiety[ICD10: F01.50] Diagnosis: Dementia in other diseases classified elsewhere, unspecified severity, without behavioral disturbance, psychotic disturbance, mood disturbance, and anxiety[ICD10: F02.80] Diagnosis: History of TIA (transient ischemic attack)[SNOMED: 402538774] Diagnosis: Type 2 diabetes mellitus without complication, unspecified whether jail insulin use[SNOMED: 45968048] Diagnosis: Venous insufficiency of both lower extremities[SNOMED: 575209238] Diagnosis: Hyperlipidemia, unspecified hyperlipidemia type[SNOMED: 48174044] Diagnosis: Unintentional weight loss[SNOMED: 685320407] Diagnosis: Urinary incontinence, unspecified type[SNOMED: 849023032] Diagnosis: Depression due to dementia[SNOMED: 44283887] Diagnosis: Compression fracture of L1 vertebra, sequela[SNOMED: 171184150] Diagnosis: Atherosclerosis of coronary artery of [place] heart without angina pectoris, unspecified vessel or lesion type[SNOMED: 728769438] Diagnosis: Unsteady gait[SNOMED: 62555460] Diagnosis: Iron deficiency anemia, unspecified iron deficiency anemia type[SNOMED: 56023068] Diagnosis: Osteopenia, unspecified location[SNOMED: 855949914] Diagnosis: CAMILO (obstructive sleep apnea)[SNOMED: 67111781] Diagnosis: Chronic obstructive pulmonary disease, unspecified COPD type[SNOMED: 46545762] Diagnosis: History of breast cancer[SNOMED: 032158315] Diagnosis: History of melanoma[SNOMED: 004855326] Diagnosis: Primary hypertension[SNOMED: 12058628] Diagnosis: Chronic heart failure with preserved ejection fraction[SNOMED: 661587318] Diagnosis: Diverticulosis[SNOMED : 977650049] Diagnosis: Atrial fibrillation, unspecified type[SNOMED: 79365105] Diagnosis: Advance care planning[SNOMED: 635025116] Teresa Talbot [address] [address] CPT-4: 48146 04/13/2024 Plan of Care Planned Activity Notes Codes Status Date Patient Education: Patient Medication Summary Completed 06/29/2024 Patient Education: Influenza Complet ed 06/29/2024 Patient Education: Patient Medication Summary Completed 06/01/2024 Patient Education: Influenza Complet ed 06/01/2024 Patient Education: Addiction and Substance Abuse Completed 06/01/2024 Patient Education: Alzheimer''s Disease Completed 06/01/2024 Patient Education: Dementia Complete d 06/01/2024 Patient Education: Exercise and Fitness Completed 06/01/2024 Patient Education: Patient Medication Summary Completed 05/04/2024 Patient Education: Influenza Complet ed 05/04/2024 Appointment: Michela Talbotl: [id number] PURIFICATION DIRECTOR 04/13/2024 Patient Education: Patient Medication Summary Completed 04/13/2024 Patient Education: Influenza Complet ed 04/13/2024 Patient Education: Alzheimer''s Disease Completed 04/13/2024 Patient Education: Dementia Complete d 04/13/2024 Instructions Comment Date Alyx resides at [facility] since about 2021. Previously lived independently in [place]. . Has one daughter Maggie who is involved in healthcare. PMH: History of breast cancer and melanoma, mixed dementia, depression, CAD, HLD, history of CVA/TIA, compression fx of L1 vertebrae, urinary incontinence, hearing loss, osteopeniaPrimary contact: Maggie Gallegos (Daughter)Code Status: DNR/[facility] Schedule: Mar/SepSpecialists: [facility] (Q6M), Cardiology [facility] (MD Echo) 06/11/2024 Type 2 diabetes mellitus wit hout complication, unspecified whether predatory animal exterminator insulin use Sugars reviewed; most readings < [...] does follow with outside cardiology team.. 06/29/2024 Unsteady gait Unsteady on her feet. She [...] without complication, unspecified whether jail insulin use Sugars reviewed; remain in 80s-100s. [...] of care. Atherosclerosis of coronary artery of [place] heart without angina pectoris, unspecified vessel or [...] option. Wait for culture to result.. 06/01/2024 Type 2 diabetes mellitus wit hout complication, unspecified whether predatory animal exterminator insulin use Sugars reviewed; remain in 80-90s [...] Continue to monitor f/u next month.. 05/04/2024 Iron deficiency anemia, unsp ecified iron deficiency [...] fibrillation, unspecified type Has seen cardiology in [place] 01/2024. Managed on eliquis 5mg BID. No excessive bruising or bleeding on exam. Atherosclerosis of coronary artery of [place] heart without angina pectoris, unspecified vessel or [...]
--- OUTSIDE RECORDS SUMMARY | 2024-07-03 20:49 | XMS_ITS | CCD ---
Author Name Linda Vivas Address [address] [facility] [address] [place] [address] Phone Organization [facility] Phone Care Team Providers Care Cash Applications Analyst Name Role Phone Teresa Vivas Primary Care Provider Un available Unavailable Chronic Care Management Unavaila ble Summary Purpose DataExchange Insurance Providers Payer name Policy type / Coverage type Covered alliance party ID Effective Begin Date Effective End Date BCBS of [facility] Medicare Risk [id number] Unknown Un known Family history Mother Diagnosis Age At Onset Stroke Unknown Social History Social History Element Codes Description Effec tive Dates Marital status Unknown 04/13/2024 Marital status Unknown 04/13/2024 Living arrangements Unknown Assisted Living 04/[address]: 8132246 Former smoker 04/[address]: 2122260 Former smoker 04/[address]: 116883380 No Alcohol Consum ption 04/13/[address]: 311806 Currently drin ks alcohol 04/13/2024 Sexually Active? [...] No Inactive Date A ctive SIMVASTATIN RxNorm: 71377 04/13/2024 No Inactive D ate Active Penicillin Unknown 04/13/2024 No Inactive Date A ctive CLOPIDOGREL Unknown 03/23/2024 No Inactive Date Active naproxen RxNorm: 7258 04/13/2024 No Inactive Date Active levofloxacin RxNorm: 48653 03/23/2024 No Inactive Date Active Levemir Unknown 03/23/2024 No Inactive Date Ac tive metformin RxNorm: 807042 04/13/2024 No Inactive Da te Active ESTROGENS Unknown 03/23/2024 No Inactive Date Ac tive Atenolol RxNorm: 1202 04/13/2024 No Inactive Date Active metoprolol succinate RxNorm: 201354 03/23/2024 No Inactive Date Active Januvia RxNorm: 472776 04/13/2024 No Inactive Da te Active furosemide RxNorm: 4603 03/23/2024 No Inactive Balaji e Active azithromycin RxNorm: 87436 04/13/2024 No Inactive Date Active losartan RxNorm: 651336 04/13/2024 No Inactive Da te Active NSAIDS Unknown 03/23/2024 No Inactive Date Ac tive Amlodipine RxNorm: 589733 04/13/2024 No Inactive D ate Active LISINOPRIL RxNorm: 34187 04/13/2024 No Inactive Da te Active PIOGLITAZONE [...] without complication, unspecified whether long term care phlebotomist insulin use ICD-10: E11.9 ICD-9: 250.00 06/29/2024 Active ACP (advance care planning) SNOMED CT: 3 24358253 ICD-10: Z71.89 ICD-9: V65.49 06/01/2024 Active Adult general medical exam SNOMED CT: 30 5869202 ICD-10: Z00.00 ICD-9: V70.9 06/01/2024 Active Atherosclerosis of coronary artery of [place] heart without angina pectoris, unspecified vessel or lesion type ICD-10: I25.10 ICD-9: 414.01 06/01/2024 Active Atrial fibrillation, unspecified type ICD-10: I48.91 ICD-9: 427.31 06/01/2024 Active 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 ICD-9: 311 06/01/[address]: 966702281 ICD-10: R54 ICD-9: 797 06/01/2024 Active Mixed [...] fracture of L1 vertebra, sequela SNOMED CT: 498432342 ICD-10: S32.010S ICD-9: 905.1 04/13/2024 Active Dementia in other diseases classified elsewhere, unspecified severity, without behavioral disturbance, psychotic disturbance, mood disturbance, and anxiety ICD-10: F02.80 04/13/[address]: 789663526 ICD-10: K57.90 ICD-9: 562.10 04/13/2024 Active History of breast cancer SNOMED CT: 4290 57213 ICD-10: Z85.3 ICD-9: V10.3 04/13/2024 Active History of melanoma SNOMED CT: 732334898 ICD-10: Z85.820 ICD-9: V10.82 04/13/2024 Active History of TIA (transient ischemic attack) SNOMED CT: 574081170 ICD-10: Z86.73 ICD-9: V12.54 04/13/2024 Active Hyperlipidemia, unspecified hyperlipidemia type SNOMED CT: 58163919 ICD-10: E78.5 ICD-9: 272.4 04/13/2024 Active Statin intolerance SNOMED CT: 380215633 ICD-10: Z78.9 ICD-9: 995.27 04/13/2024 Active Urinary incontinence, unspecified type SNOMED CT: 193986978 ICD-10: R32 ICD-9: 788.30 04/13/2024 Active Vascular dementia, unspecifi ed severity, without behavioral disturbance, psychotic disturbance, mood disturbance, and anxiety ICD-10: F01.50 04/13/2024 Active Medications Medication Codes Instructions Start Date Stop Date Status Fill Instructions Alejandra Protect (zinc oxide) 12 % topical cream RxNorm: 159740 APPLY TO RIGHT BUTTOCK 2 TIMES DAILY;APPLY TO RIGHT BUTTOCK NEEDED WITH SOILING 06/12/19 25 026 Active albuterol sulfate HFA 90 mcg/actuation aerosol inhaler RxNorm: 0887814 Inhale 2 Puff(s) Inhalation Q4H every four hours as needed 06/01/19 25 No Stop Date Active Alejandra Protect (zinc oxide) 12 % topical cream RxNorm: 855390 cream Topical apply to right buttocks BID and PRN with soiling 06/01/19 25 025 Inactive Lantus Solostar U-100 Insulin 100 unit/mL (3 mL) subcutaneous pen RxNorm: 995106 Unit(s) Subcutaneous prime en with 2 units, then inject 8 units SQ QD at bedtime 05/18/19 25 026 Active potassium chloride ER 10 mEq tablet,extended release RxNorm: 733833 Take 1 Tablet(s) Oral QD 04/12/19 25 No Stop Date Active fluoxetine 10 mg capsule RxNorm: 002627 Take 1 Capsule(s) Oral QD 04/12/19 25 No Stop Date Active hydrochlorothiazide 25 mg tablet RxNorm: 798125 Take 1 Tablet(s) Oral QD 04/12/19 25 No Stop Date Active Oyster Shell Calcium 500 mg (as calcium carbonate 1,250 mg) tablet RxNorm: 781726 Take 1 Tablet(s) Oral QD 04/12/19 25 No Stop Date Active Co Q-10 200 mg capsule RxNorm: 977050 Capsule(s) Oral take 1 cap po daily with 100mg tab to =300mg daily 04/12/19 25 No Stop Date Active Co Q-10 100 mg capsule RxNorm: 961988 Capsule(s) Oral take 1 cap daily along with 200mg tab to =300mg daily 04/12/19 25 No Stop Date Active quetiapine 25 mg tablet RxNorm: 084954 Take 1 Tablet(s) Oral QHS every night at bedtime 04/12/19 25 No Stop Date Active Vitamin D3 25 mcg (1,000 unit) tablet RxNorm: 946543 Take 1 Tablet(s) Oral QD 04/12/19 25 No Stop Date Active acetaminophen 500 mg tablet RxNorm: 449812 Take 2 Tablet(s) Oral TID as needed 04/12/19 25 No Stop Date Active donepezil 10 mg tablet RxNorm: 763096 Take 1 Tablet(s) Oral QHS every night at bedtime 04/12/19 25 No Stop Date Active cyanocobalamin (vit B-12) 500 mcg tablet RxNorm: 744423 Take 1 Tablet(s) Oral QD 04/12/19 25 No Stop Date Active oxybutynin chloride ER 10 mg tablet,extended release 24 hr RxNorm: 899031 Take 1 Tablet(s) Oral QPM every evening 04/12/19 25 No Stop Date Active irbesartan 150 mg tablet RxNorm: 428162 Take 1 Tablet(s) Oral BID 04/12/19 25 No Stop Date Active Trelegy Ellipta 200 mcg-62.5 mcg-25 mcg powder for inhalation RxNorm: 8980815 Inhale 1 Puff(s) Inhalation every 24 hours 04/12/19 25 No Stop Date Active Vitron-C 65 mg iron-125 mg tablet,delayed release RxNorm: 1382841 Take 1 Tablet(s) Oral QOD every other day 04/12/19 25 No Stop Date Active Eliquis 5 mg tablet RxNorm: 1466367 Take 1 Tablet(s) Oral BID 04/12/19 25 025 Inactive Lantus Solostar U-100 Insulin 100 unit/mL (3 mL) subcutaneous pen RxNorm: 566333 Unit(s) Subcutaneous prime en with 2 units, [...] Result Date Service Location CBC with Platelets [id number] WBC COUNT (AUTOMATED) 4.1 10e3/uL 06/05/19 25 Unknown CBC with Platelets JLU982 RBC COUNT 789-8 4.37 10e6/uL 06/05/19 25 Unknown CBC with Platelets QCT658 Hemoglobin 718-7 13.5 g/dL 06/05/19 25 Unknown CBC with Platelets JYR803 Hematocrit 4544-3 42.8 % 06/05/19 25 Unknown CBC with Platelets AJN090 MCV 787-2 98 fL 06/05/19 25 Unknown CBC with Platelets YDN040 MCH 30.9 pg 06/05/19 25 Unknown CBC with Platelets NTH517 MCHC 31.5 g/dL 06/05/19 25 Unknown CBC with Platelets ZSI564 RDW 16.5 % 06/05/19 25 Unknown CBC with Platelets TBN442 Platelet Count 777-3 181 10e3/uL 06/05/19 25 Unknown Hemoglobin A1c LAB90 EST AVERAGE GLUCOSE 151 mg/dL 06/05/19 25 Unknown Hemoglobin A1c LAB90 Hemoglobin A1c 68179-0 6.9 % 06/05/19 25 Unknown Glucose YXA9392 Sodium 140 mmol/L 06/05/19 25 Unknown Glucose XPF8761 POTASSIUM (XU) 2823-3 3.5 mmol/L 06/05/19 25 Unknown Glucose CRY1379 CHLORIDE (XU) 100 mmol/L 25 Unknown Glucose NRP4235 CO2 (XU) 28 mmol/L 06/05/19 25 Unknown Glucose EZQ5971 ANION GAP (XU) 12 mmol/L 06/05/19 25 Unknown Glucose IVQ8944 UREA NITROGEN (XU) 13.7 mg/dL 06/05/19 25 Unknown Glucose NBE7045 Creatinine 0.75 mg/dL 06/05/19 25 Unknown Glucose QNT4269 GFR, ESTIMATE 86729-1 76 mL/min/1.73m 2 06/05/19 25 Unknown Glucose MRY7277 Calcium 9.3 mg/dL 06/05/19 25 Unknown Basic Metabolic Panel [id number] POTASSIUM (XU) 2823-3 3.5 mmol/L 06/05/19 25 Unknown Basic Metabolic Panel [id number] CHLORIDE (XU) 100 mmol/L 06/05/19 25 Unknown Basic Metabolic Panel [id number] CO2 (XU) 28 mmol/L 06/05/19 25 Unknown Basic Metabolic Panel XXS5801 Calcium 9.3 mg/dL 06/05/19 25 Unknown Basic Metabolic Panel [id number] ANION GAP (XU) 12 mmol/L 06/05/19 25 Unknown Basic Metabolic Panel WHK3013 Creatinine 0.75 mg/dL 06/05/19 25 Unknown Basic Metabolic Panel FSQ7409 GLUCOSE (XU) 2345-7 79 mg/dL 06/05/19 Unknown Basic Metabolic Panel UCM9442 Sodium 140 mmol/L 06/05/19 Unknown Basic Metabolic Panel LYN1028 UREA NITROGEN (XU) 13.7 mg/dL 06/05/19 Unknown Basic Metabolic Panel FUV5411 GFR, ESTIMATE 69203-4 76 mL/min/1.73m 2 06/05/19 Unknown Urine Culture 16680 URINE CULTURE 75241-4 SEE RESU LTS BELOW 06/04/19 Unknown PHQ9 PHQ9 23400-6 1 06/02/19 Unknown UA with Microscopic 58060 COLOR Light Yellow 06/01/19 Unknown UA with Microscopic 31223 Appearance Slightly Cloudy 06/01/19 Unknown UA with Microscopic 17345 GLUCOSE, URINE Negative mg/dL 06/01/19 Unknown UA with Microscopic 23655 BILIRUBIN, URINE Negative 06/01/19 Unknown UA with Microscopic 60432 Ketones Urine Negative mg/dL 06/01/19 Unknown UA with Microscopic 78143 Specific [place] Urine 1.012 06/01/19 Unknown UA with Microscopic 15939 BLOOD, URINE Negative 06/01/19 Unknown UA with Microscopic 87417 pH Urine 6.5 06/01/19 Unknown UA with Microscopic 14557 Protein urine Negative mg/dL 06/01/19 Unknown UA with Microscopic 47103 UROBILINOGEN IRIS Normal mg/dL 06/01/19 Unknown UA with Microscopic 33427 Nitrites Positive 06/01/19 Unknown UA with Microscopic 31871 LEUK ESTERASE Trace 06/01/19 Unknown UA with Microscopic 50282 Bacteria Few /HPF 06/01/19 Unknown UA with Microscopic 06580 WBC CLUMPS 6690-2 Present /HPF 06/01/19 Unknown UA with Microscopic 57954 Mucus Urine Present /LPF 06/01/19 Unknown UA with Microscopic 16140 RBC Urine <1 /HPF 06/01/19 Unknown UA with Microscopic 05438 SQUAMOUS EPITHELIAL 2 /HPF 06/01/19 Unknown UA with Microscopic 69106 WBC Urine 49172-3 26 /HPF 06/01/19 Unknown Urine Culture 83746 URINE CULTURE 27421-1 SEE RESU LTS BELOW 05/23/19 Unknown UA with Microscopic 21140 COLOR Yellow 05/22/19 Unknown UA with Microscopic 35142 Appearance Slightly Cloudy 03/14/20 25 Unknown UA with Microscopic 75342 GLUCOSE, URINE Negative mg/dL 05/22/19 25 Unknown UA with Microscopic 73882 BILIRUBIN, URINE Negative 05/22/19 25 Unknown UA with Microscopic 39040 Ketones Urine Negative mg/dL 05/22/19 25 Unknown UA with Microscopic 48114 Specific [place] Urine 1.013 05/22/19 25 Unknown UA with Microscopic 13290 BLOOD, URINE Negative 05/22/19 25 Unknown UA with Microscopic 93279 pH Urine 6.5 05/22/19 25 Unknown UA with Microscopic 88858 Protein urine 10 mg/dL 05/22/19 25 Unknown UA with Microscopic 70954 UROBILINOGEN IRIS Normal mg/dL 05/22/19 25 Unknown UA with Microscopic 23323 Nitrites Positive 05/22/19 25 Unknown UA with Microscopic 20067 LEUK ESTERASE Large 05/22/19 25 Unknown UA with Microscopic 96387 Bacteria Few /HPF 05/22/19 25 Unknown UA with Microscopic 26707 Mucus Urine Present /LPF 05/22/19 25 Unknown UA with Microscopic 42326 RBC Urine 0 /HPF 05/22/19 25 Unknown UA with Microscopic 16746 SQUAMOUS EPITHELIAL 3 /HPF 05/22/19 25 Unknown UA with Microscopic 29397 WBC Urine 34585-1 24 /HPF 05/22/19 25 Unknown UA with Microscopic 05590 TRANSITIONAL EPI <1 /HPF 05/22/19 25 Unknown PHQ9 PHQ9 81350-3 2 04/13/19 25 Unknown SLUMS SLUMS 40944-5 13 04/13/19 25 Unknown Procedures Procedure Codes Date HG A1C LEVEL LT 7.0% CPT-4: 3044F 06/29/2024 PT INELIG NEG SCRN DEPRES SNOMED CT: 428 882091963173 CPT-4: G8510 06/01/2024 PT INELIG NEG SCRN DEPRES SNOMED CT: 428 036652062332 CPT-4: G8510 04/13/2024 Vital Signs Date Vital 06/29/2024 Blood Pressure 1: 132/82 Code: 8480-6 Heart Rate 1: 66 bpm Code: 8867-4 Respiratory Rate: 18 bpm SpO2: 95% Temperature: 36.3 (C) / 97.3 (F) 06/01/2024 Blood Pressure 1: 150/90 Code: 8480-6 BMI: NaN Code: 35058-6 Heart Rate 1: 71 bpm Code: 8867-4 [...] Encounter Performer Location Location Address Codes Date ([id number]) Home Visit - Est Pt, moderate Diagnosis: Acute cystitis without hematuria[ICD10: N30.00] Diagnosis: Chronic heart failure with preserved ejection fraction[ICD10: I50.32] Diagnosis: Iron deficiency anemia, unspecified iron deficiency anemia type[ICD10: D50.9] Diagnosis: Type 2 diabetes mellitus without complication, unspecified whether long term care phlebotomist insulin use[ICD10: E11.9] Diagnosis: Chronic obstructive pulmonary disease, unspecified COPD type[ICD10: J44.9] Teresa Talbot [address] [address] CPT-4: 25616 06/29/2024 ([id number]) Medicare Annual Wellness Visit (AWV), Subsequent Diagnosis: Adult general medical exam[SNOMED: 373784007] Diagnosis: ACP (advance care planning)[SNOMED: 343851146] Diagnosis: Frailty[SNOMED: 505771035] Diagnosis: Atherosclerosis of coronary artery of [place] heart without angina pectoris, unspecified vessel or [...] mellitus without complication, unspecified whether alf insulin use[ICD10: E11.9] Diagnosis: Unintentional weight loss[ICD10: R63.4] Diagnosis: Unsteady gait[ICD10: R26.81] Diagnosis: Venous insufficiency of both lower extremities[ICD10: I87.2] Diagnosis: Acute cystitis without hematuria[SNOMED: 09146438] Diagnosis: Pressure injury of left buttock, stage 2[ICD10: L89.322] Teresa Talbot [address] [address] CPT-4: G0439 06/01/2024 ([id number]) Home Visit - Est Pt, moderate Diagnosis: Adult general medical exam[SNOMED: 169130228] Diagnosis: ACP (advance care planning)[SNOMED: 778432667] Diagnosis: Frailty[SNOMED: 529687008] Diagnosis: Atherosclerosis of coronary artery of [place] heart without angina pectoris, unspecified vessel or [...] without complication, unspecified whether long term care phlebotomist insulin use[ICD10: E11.9] Diagnosis: Unintentional weight loss[ICD10: R63.4] Diagnosis: Unsteady gait[ICD10: R26.81] Diagnosis: Venous insufficiency of both lower extremities[ICD10: I87.2] Diagnosis: Acute cystitis without hematuria[SNOMED: 28619108] Diagnosis: Pressure injury of left buttock, stage 2[ICD10: L89.322] [facility] [place] [address] CPT-4: 71256 06/01/2024 ([id number]) Home or Residence Visit Est Pt - Moderate Level, 40 mins 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] Diagnosis: Primary hypertension[ICD10: I10] Diagnosis: Pressure injury of left buttock, stage 2[SNOMED: 34245514622077] Diagnosis: Type 2 diabetes mellitus without complication, unspecified whether alf insulin use[ICD10: E11.9] [facility] [place] [address] CPT-4: 00819 05/04/2024 ([id number]) 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, 60 mins Diagnosis: Statin intolerance[SNOMED: 683467407] Diagnosis: Mixed Alzheimer and vascular dementia[SNOMED: 43322462263291] Diagnosis: Vascular dementia, unspecified severity, without behavioral disturbance, psychotic disturbance, mood disturbance, and anxiety[ICD10: F01.50] Diagnosis: Dementia in other diseases classified elsewhere, unspecified severity, without behavioral disturbance, psychotic disturbance, mood disturbance, and anxiety[ICD10: F02.80] Diagnosis: History of TIA (transient ischemic attack)[SNOMED: 110736269] Diagnosis: Type 2 diabetes mellitus without complication, unspecified whether alf insulin use[SNOMED: 39034243] Diagnosis: Venous insufficiency of both lower extremities[SNOMED: 923988793] Diagnosis: Hyperlipidemia, unspecified hyperlipidemia type[SNOMED: 55470947] Diagnosis: Unintentional weight loss[SNOMED: 944123325] Diagnosis: Urinary incontinence, unspecified type[SNOMED: 133172888] Diagnosis: Depression due to dementia[SNOMED: 19606170] Diagnosis: Compression fracture of L1 vertebra, sequela[SNOMED: 495750210] Diagnosis: Atherosclerosis of coronary artery of [place] heart without angina pectoris, unspecified vessel or lesion type[SNOMED: 044385892] Diagnosis: Unsteady gait[SNOMED: 55380799] Diagnosis: Iron deficiency anemia, unspecified iron deficiency anemia type[SNOMED: 82324712] Diagnosis: Osteopenia, unspecified location[SNOMED: 541530053] Diagnosis: CAMILO (obstructive sleep apnea)[SNOMED: 96018657] Diagnosis: Chronic obstructive pulmonary disease, unspecified COPD type[SNOMED: 71937387] Diagnosis: History of breast cancer[SNOMED: 738388057] Diagnosis: History of melanoma[SNOMED: 943532524] Diagnosis: Primary hypertension[SNOMED: 19071779] Diagnosis: Chronic heart failure with preserved ejection fraction[SNOMED: 052336841] Diagnosis: Diverticulosis[SNOMED : 131754898] Diagnosis: Atrial fibrillation, unspecified type[SNOMED: 40694768] Diagnosis: Advance care planning[SNOMED: 176404574] Teresa Talbot [address] [address] CPT-4: 47592 04/13/2024 Plan of Care Planned Activity Notes [...] Complet ed 05/04/2024 Appointment: Michela Talbotl: [id number] [employer] 04/13/2024 Patient Education: Patient Medication Summary Completed 04/13/2024 Patient Education: Influenza Complet ed 04/13/2024 Patient Education: Alzheimer''s Disease Completed 04/13/2024 Patient Education: Dementia Complete d 04/13/2024 Instructions Comment Date Alyx resides at [facility] since about 2021. Previously lived independently in [place]. . Has one daughter Maggie who is involved in healthcare. PMH: History of breast cancer and melanoma, mixed dementia, depression, CAD, HLD, history of CVA/TIA, compression fx of L1 vertebrae, urinary incontinence, hearing loss, osteopeniaPrimary contact: Maggie Gallegos (Daughter)Code Status: DNR/SelectLab Schedule: Mar/SepSpecialists: [facility] (Q6M), Cardiology [facility] (MD Echo) 06/11/2024 Type 2 diabetes mellitus wit hout complication, unspecified whether long term care phlebotomist insulin use Sugars reviewed; most readings < [...] without complication, unspecified whether alf insulin use Sugars reviewed; remain in 80s-100s. [...] of care. Atherosclerosis of coronary artery of [place] heart without angina pectoris, unspecified vessel or [...] diabetes mellitus wit hout complication, unspecified whether long term care phlebotomist insulin use Sugars reviewed; remain in 80-90s [...] fibrillation, unspecified type Has seen cardiology in [place] 01/2024. Managed on eliquis 5mg BID. No excessive bruising or bleeding on exam. Atherosclerosis of coronary artery of [place] heart without angina pectoris, unspecified vessel or [...]
--- OUTSIDE RECORDS SUMMARY | 2024-07-03 20:49 | XMS_ITS | CCD ---
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 Name Role Phone Teresa Vivas Primary Care Provider Un available Unavailable Chronic Care Management Unavaila ble Summary Purpose DataExchange Insurance Providers Payer name Policy type / Coverage type Covered constitution party ID Effective Begin Date Effective End Date BCBS of [facility] Medicare Risk [id number] Unknown Un known Family history Mother Diagnosis Age At Onset Stroke Unknown Social History Social History Element Codes Description Effec tive Dates Marital status Unknown 04/13/2024 Marital status Unknown 04/13/2024 Living arrangements Unknown Assisted Living 04/[address]: 8491479 Former smoker 04/[address]: 0110253 Former smoker 04/[address]: 319874625 No Alcohol Consum ption 04/13/[address]: 179994 Currently drin ks alcohol 04/13/2024 Sexually Active? [...] No Inactive Date A ctive SIMVASTATIN RxNorm: 41830 04/13/2024 No Inactive D ate Active Penicillin Unknown 04/13/2024 No Inactive Date A ctive CLOPIDOGREL Unknown 03/23/2024 No Inactive Date Active naproxen RxNorm: 7258 04/13/2024 No Inactive Date Active levofloxacin RxNorm: 88209 03/23/2024 No Inactive Date Active Levemir Unknown 03/23/2024 No Inactive Date Ac tive metformin RxNorm: 379538 04/13/2024 No Inactive Da te Active ESTROGENS Unknown 03/23/2024 No Inactive Date Ac tive Atenolol RxNorm: 1202 04/13/2024 No Inactive Date Active metoprolol succinate RxNorm: 711202 03/23/2024 No Inactive Date Active Januvia RxNorm: 610282 04/13/2024 No Inactive Da te Active furosemide RxNorm: 4603 03/23/2024 No Inactive Balaji e Active azithromycin RxNorm: 09725 04/13/2024 No Inactive Date Active losartan RxNorm: 005081 04/13/2024 No Inactive Da te Active NSAIDS Unknown 03/23/2024 No Inactive Date Ac tive Amlodipine RxNorm: 295022 04/13/2024 No Inactive D ate Active LISINOPRIL RxNorm: 31103 04/13/2024 No Inactive Da te Active PIOGLITAZONE DERIVATIVES Unknown 04/13/2024 No I nactive Date Active Problems Condition Codes Effective Dates Condition St atus Advanced care planning - to document end of life discussions Unknown 04/13/2024 Active Diabetes mellitus Type 2 Unknown 04/13/2024 Act floyd Advance care planning SNOMED CT: 9990062 01 ICD-10: Z71.89 ICD-9: V65.49 04/13/2024 Active Atherosclerosis of coronary artery of [place] heart without angina pectoris, unspecified vessel or lesion type SNOMED CT: 796089333 ICD-10: I25.10 ICD-9: 414.01 04/13/2024 Active Atrial fibrillation, unspecified type SNOMED CT: 23801230 ICD-10: I48.91 ICD-9: 427.31 04/13/2024 Active Chronic heart failure with preserved ejection fraction SNOMED CT: 341337722 ICD-10: I50.32 ICD-9: 428.9 04/13/2024 Active Chronic obstructive pulmonary disease, unspecified COPD type SNOMED CT: 79527086 ICD-10: J44.9 ICD-9: 496 04/13/2024 Active Compression fracture of L1 vertebra, sequela SNOMED CT: 855299616 ICD-10: S32.010S ICD-9: 905.1 04/13/2024 Active Dementia in other diseases classified elsewhere, unspecified severity, without behavioral disturbance, psychotic disturbance, mood disturbance, and anxiety ICD-10: F02.80 04/13/2024 Active Depression due to dementia SNOMED CT: 37 900474 ICD-10: F03.93 ICD-9: 311 04/13/[address]: 595386020 ICD-10: K57.90 ICD-9: 562.10 04/13/2024 Active History of breast cancer SNOMED CT: 4290 11297 ICD-10: Z85.3 ICD-9: V10.3 04/13/2024 Active History of melanoma SNOMED CT: 177611442 ICD-10: Z85.820 ICD-9: V10.82 04/13/2024 Active History of TIA (transient ischemic attack) SNOMED CT: 151705491 ICD-10: Z86.73 ICD-9: V12.54 04/13/2024 Active Hyperlipidemia, unspecified hyperlipidemia type SNOMED CT: 34455026 ICD-10: E78.5 ICD-9: 272.4 04/13/2024 Active Iron deficiency anemia, unspecified iron deficiency anemia type SNOMED CT: 66806465 ICD-10: D50.9 ICD-9: 280.9 04/13/2024 Active Mixed Alzheimer and vascular dementia SNOMED CT: 59222750491805 ICD-10: G30.9 ICD-9: 331.0 04/13/2024 Active CAMILO (obstructive sleep apnea) SNOMED CT: 37889948 ICD-10: G47.33 ICD-9: 327.23 04/13/2024 Active Osteopenia, unspecified location SNOMED CT: 734735249 ICD-10: M85.80 ICD-9: 733.90 04/13/2024 Active Primary hypertension SNOMED CT: 83509094 ICD-10: I10 ICD-9: 401.9 04/13/2024 Active Statin intolerance SNOMED CT: 808993833 ICD-10: Z78.9 ICD-9: 995.27 04/13/2024 Active Type 2 diabetes mellitus without complication, unspecified whether 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 SNOMED CT: 30414125 ICD-10: E11.9 ICD-9: 250.00 04/13/2024 Active Unintentional weight loss SNOMED CT: 448 110770 ICD-10: R63.4 ICD-9: 783.21 04/13/2024 Active Unsteady gait SNOMED CT: 52182770 ICD-10: R26.81 ICD-9: 781.2 04/13/2024 Active Urinary incontinence, unspecified type SNOMED CT: 035262254 ICD-10: R32 ICD-9: 788.30 04/13/2024 Active Vascular dementia, unspecified severity, without behavioral disturbance, psychotic disturbance, mood disturbance, and anxiety ICD-10: F01.50 04/13/2024 Active Venous insufficiency of both lower extremities SNOMED CT: 257184776 ICD-10: I87.2 ICD-9: 459.81 04/13/2024 Active Medications Medication Codes Instructions Start Date Stop Date Status Fill Instructions potassium chloride ER 10 mEq tablet,extended release RxNorm: 919423 Take 1 Tablet(s) Oral QD 04/12/19 25 No Stop Date Active fluoxetine 10 mg capsule RxNorm: 699344 Take 1 Capsule(s) Oral QD 04/12/19 25 No Stop Date Active hydrochlorothiazide 25 mg tablet RxNorm: 534091 Take 1 Tablet(s) Oral QD 04/12/19 25 No Stop Date Active Oyster Shell Calcium 500 mg (as calcium carbonate 1,250 mg) tablet RxNorm: 869560 Take 1 Tablet(s) Oral QD 04/12/19 25 No Stop Date Active Co Q-10 200 mg capsule RxNorm: 787937 Capsule(s) Oral take 1 cap po daily with 100mg tab to =300mg daily 04/12/19 25 No Stop Date Active Co Q-10 100 mg capsule RxNorm: 704815 Capsule(s) Oral take 1 cap daily along with 200mg tab to =300mg daily 04/12/19 25 No Stop Date Active quetiapine 25 mg tablet RxNorm: 886007 Take 1 Tablet(s) Oral QHS every night at bedtime 04/12/19 25 No Stop Date Active Vitamin D3 25 mcg (1,000 unit) tablet RxNorm: 945749 Take 1 Tablet(s) Oral QD 04/12/19 25 No Stop Date Active acetaminophen 500 mg tablet RxNorm: 057266 Take 2 Tablet(s) Oral TID as needed 04/12/19 25 No Stop Date Active donepezil 10 mg tablet RxNorm: 108642 Take 1 Tablet(s) Oral QHS every night at bedtime 04/12/19 25 No Stop Date Active cyanocobalamin (vit B-12) 500 mcg tablet RxNorm: 920916 Take 1 Tablet(s) Oral QD 04/12/19 25 No Stop Date Active oxybutynin chloride ER 10 mg tablet,extended release 24 hr RxNorm: 625284 Take 1 Tablet(s) Oral QPM every evening 04/12/19 25 No Stop Date Active irbesartan 150 mg tablet RxNorm: 555964 Take 1 Tablet(s) Oral BID 04/12/19 25 No Stop Date Active Trelegy Ellipta 200 mcg-62.5 mcg-25 mcg powder for inhalation RxNorm: 1878644 Inhale 1 Puff(s) Inhalation every 24 hours 04/12/19 25 No Stop Date Active Vitron-C 65 mg iron-125 mg tablet,delayed release RxNorm: 2751538 Take 1 Tablet(s) Oral QOD every other day 04/12/19 25 No Stop Date Active Eliquis 5 mg tablet RxNorm: 9006019 Take 1 Tablet(s) Oral BID 04/12/19 25 025 Inactive Lantus Solostar U-100 Insulin 100 unit/mL (3 mL) subcutaneous pen RxNorm: 732278 Unit(s) Subcutaneous prime en with 2 units, [...] Result Date S ervice Location PHQ9 PHQ9 [id number] 04/13/2024 Unknown [facility] [id number] 13 04/13/2024 Unknown Procedures Procedure Codes Date PT INELIG NEG SCRN DEPRES SNOMED CT: 428 [id number] CPT-4: G8510 04/13/2024 Vital Signs Date Vital [...] Encounter Performer Location Location Address Codes Date ([address]) 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, 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 Diagnosis: Statin intolerance[SNOMED: 625056586] Diagnosis: Mixed Alzheimer and vascular dementia[SNOMED: 94629387920948] Diagnosis: Vascular dementia, unspecified severity, without behavioral disturbance, psychotic disturbance, mood disturbance, and anxiety[ICD10: F01.50] Diagnosis: Dementia in other diseases classified elsewhere, unspecified severity, without behavioral disturbance, psychotic disturbance, mood disturbance, and anxiety[ICD10: F02.80] Diagnosis: History of TIA (transient ischemic attack)[SNOMED: 399646893] Diagnosis: Type 2 diabetes mellitus without complication, unspecified whether jail insulin use[SNOMED: 80184652] Diagnosis: Venous insufficiency of both lower extremities[SNOMED: 172122271] Diagnosis: Hyperlipidemia, unspecified hyperlipidemia type[SNOMED: 69006042] Diagnosis: Unintentional weight loss[SNOMED: 559215108] Diagnosis: Urinary incontinence, unspecified type[SNOMED: 328493054] Diagnosis: Depression due to dementia[SNOMED: 00701958] Diagnosis: Compression fracture of L1 vertebra, sequela[SNOMED: 221054214] Diagnosis: Atherosclerosis of coronary artery of [place] heart without angina pectoris, unspecified vessel or lesion type[SNOMED: 263141832] Diagnosis: Unsteady gait[SNOMED: 40494863] Diagnosis: Iron deficiency anemia, unspecified iron deficiency anemia type[SNOMED: 47159274] Diagnosis: Osteopenia, unspecified location[SNOMED: 157851588] Diagnosis: CAMILO (obstructive sleep apnea)[SNOMED: 53519585] Diagnosis: Chronic obstructive pulmonary disease, unspecified COPD type[SNOMED: 31259458] Diagnosis: History of breast cancer[SNOMED: 729781887] Diagnosis: History of melanoma[SNOMED: 957927966] Diagnosis: Primary hypertension[SNOMED: 33354295] Diagnosis: Chronic heart failure with preserved ejection fraction[SNOMED: 341380138] Diagnosis: Diverticulosis[SNOMED : 091126467] Diagnosis: Atrial fibrillation, unspecified type[SNOMED: 70052603] Diagnosis: Advance care planning[SNOMED: 405925205] Teresa Talbot [facility] [address] [place] [address] CPT-4: 89725 04/13/2024 Plan of Care Planned Activity Notes Codes Status Date Patient Education: Patient Medication Summary Completed 04/13/2024 Patient Education: Influenza Complet ed 04/13/2024 Patient Education: Alzheimer''s Disease Completed 04/13/2024 Patient Education: Dementia Complete d 04/13/2024 Instructions Comment Date Alyx resides at [facility] since about 2021. Previously lived independently in [place]. . Has one daughter Maggie who is involved in healthcare. PMH: History of breast cancer and melanoma, mixed dementia, depression, CAD, HLD, history of CVA/TIA, compression fx of L1 vertebrae, urinary incontinence, hearing loss, osteopeniaPrimary contact: Maggie Gallegos (Daughter)Code Status: DNR/SelectLab Schedule: Mar/SepSpecialists: [facility] (Q6M), Cardiology [facility] ([facility]) 06/11/2024 Iron deficiency anemia, unsp [...] fibrillation, unspecified type Has seen cardiology in [place] 01/2024. Managed on eliquis 5mg BID. No excessive bruising or bleeding on exam. Atherosclerosis of coronary artery of [place] heart without angina pectoris, unspecified vessel or [...]
--- OUTSIDE RECORDS SUMMARY | 2024-07-03 20:49 | XMS_ITS | Clinical Summary ---
Author Organization [facility] Address [address] , [address] [place] [address] Phone Care Team Providers Care Artificial Intelligence Specialist Name Role Phone [facility] Unavailable Unava ilable Conditions or Problems Problem Name Problem Code Onset Date Status Entry Date Provider Comment Standard Description Annotate Gait imbalance 875245358 (SNOMED CT) 04/11 Active 04/11 Narendra Ricardo MD Abnormal gait due to impairment of balance Dementia 98748231 (SNOMED CT) 04/11 Active 04/11 Narendra Ricardo MD Dementia Hypertension 00878902 (SNOMED CT) 09/26 Active 09/26 Narendra Ricardo MD Hypertensive disorder Type 2 diabetes mellitus 12300908 (SNOMED CT) 09/26 Active 09/26 Narendra Ricardo MD Type 2 diabetes mellitus Depression NOS 99372186 (SNOMED CT) 04/13 Active 04/22 Suni Begum PsyD Depressive disorder Mild cognitive impairment 620340524 (SNOMED CT) 04/13 Active 04/22 Suni Begum PsyD Mild neurocognitive disorder Memory loss 39268315 (SNOMED CT) 07/17 Active 07/17 Narendra Ricardo MD Amnesia MIGRAINE VARIANT, 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 (ICD-9-CM) 08/10 Active 08/10 Dick Rashid DO Variants of migraine, not elsewhere classified, without mention of intractable migraine, without mention of status migrainosus HEADACHE 17830331 (SNOMED CT) 08/10 Active 08/10 Dick Michaelsrel DO Headache Medications Medication Instructions Start Date Stop Date Generic Name [facility] Provider DONEPEZIL HCL 10 MG TABS Take 1 tablet by mouth once a day 04/22 donepezil 50282920738 Laila Dinaalicia Aguirreil PA-C DONEPEZIL HCL 23 MG TABS Take 1 tablet by mouth once a day 04/11 donepezil 48371468973 Elva Underwood RN, BSN DONEPEZIL HCL 10 MG TABS Take 1 tablet by mouth once a day 04/11 donepezil 64267811788 Narendra Ricardo MD DONEPEZIL HCL 23 MG TABS Take 1 tablet by mouth once a day 04/11 donepezil 03882867429 Narendar Ricardo MD QUETIAPINE FUMARATE 25 MG TABS take 1 tab by mouth at bedtime 11/13 quetiapine 64295477382 Laila Larkin PA-C VALSARTAN twice a day 10/09 DIOVAN Laila Larkin PA-C ASPIRIN 325 MG TABS once a day 10/09 aspirin 78204779879 aLila Larkin PA-C HYDROCHLOROTHIAZIDE 25 MG TABS once a day 10/09 hydrochlorothiazi de 61821077730 Laila Larkin PA-C TEMAZEPAM 30 MG CAPS Bedtime 10/09 temazepam 14358210390 Laila Aguirreil PA-C HYDROCODONE-ACETAMIN OPHEN 5-325 MG TABS every six hours as needed 10/09 hydrocodone-aceta minophen 52639126344 Laila Aguirreil PA-C POTASSIUM CHLORIDE ER 10 MEQ CR-CAPS twice a day 10/09 potassium chloride 95548012237 Laila Aguirreil PA-C DIAZEPAM 5 MG TABS 1 tablet by mouth 07/23 diazepam 81059106445 Laila Larkin PA-C METFORMIN HCL 500 MG TABS 10/09 metformin 44214956937 Laila Aguirreil PA-C FLUTICASONE PROPIONATE HFA 10/09 FLOVENT HFA Laila Larkin PA-C THIAMINE HCL once a day 10/09 THIAMINE Laila Larkin PA-C INSULIN ISOPHANE twice a day 10/09 HUMAN Laila Larkin PA-C TIOTROPIUM BROMIDE MONOHYDRATE once a day 10/09 SPIRIVA HANDIHALER Laila Larkin PA-C SENNOSIDES 8.6 MG TABS twice a day as needed 10/09 SENNOSIDES Laila Larkin PA-C POTASSIUM CHLORIDE ER 10 MEQ CR-TABS 10/09 potassium chloride 58979388836 Laila Larkin PA-C ALBUTEROL SULFATE HFA 108 (90 Base) MCG/ACT AERS every four hours as needed 10/09 albuterol sulfate 74421631355 Laila Larkin PA-C CALCIUM/C/D 500-10-250 MG-MG-UNIT CHEW calcium carbonate 42256851782 R ed Larkin PA-C VITAMIN D3 25 MCG (1000 UT) TABS cholecalciferol (vitamin d3) 57637467813 Laila Larkin PA-C TRELEGY ELLIPTA 200-62.5-25 MCG/ACT AEPB fluticasone-umec l idin-vilanter 13059260546 Laila Larkin PA-C DIAZEPAM 5 MG TABS 1 tablet by mouth 16 10/09 diazepam 68870023444 Narendra Ricardo MD SENNOSIDES 8.6 MG TABS twice a day as needed 10/09 SENNOSIDES Narendra Ricardo MD BISACODYL 10 MG SUPP once a day as needed 04/11 bisacodyl 69098514010 Narendra Ricardo MD VALSARTAN twice a day 10/09 DIOVAN Narendra Ricardo MD VITAMIN B-12 500 MCG TABS once a day cyanocobalamin (vitamin b-12) 48417018478 Narendra Ricardo MD LEVOFLOXACIN 500 MG TABS null 04/11 levofloxacin 49977242013 Narendra Ricardo MD HYDROCHLOROTHIAZIDE 25 MG TABS once a day hydrochlorothiaz i de 21915112506 Narendra Ricardo MD POTASSIUM CHLORIDE ER 10 MEQ CR-CAPS twice a day 11/23 potassium chloride 08902832096 Narendra Ricardo MD TIOTROPIUM BROMIDE MONOHYDRATE once a day 10/09 SPIRIVA HANDIHALER Narendra Ricardo MD ASPIRIN 325 MG TABS once a day 10/09 aspirin 17600262234 Narendra Ricardo MD GLIPIZIDE 10 MG TABS once a day 04/11 glipizide 00897713462 Narendra Ricardo MD CO Q-10 300 MG CAPS once a day coenzyme q10 6763 9453121 Narendra Ricardo MD IRBESARTAN 300 MG TABS twice a day irbesartan 43624986822 Narendra Ricardo MD THIAMINE HCL once a day 10/09 THIAMINE Narendra Ricardo MD DONEPEZIL HCL 5 MG TABS 04/11 donepezil 28660772331 Narendra Ricardo MD NYSTATIN 610468 UNIT/GM CREA 2-3X/Day 04/11 nystatin 62351018831 Narendra Ricardo MD CLONIDINE HCL 0.3 MG TABS three times a day 04/11 clonidine hcl 22720468345 Narendra Ricardo MD ALBUTEROL SULFATE HFA 108 (90 Base) MCG/ACT AERS every four hours as needed 10/09 albuterol sulfate 68855840246 Narendra Ricardo MD FUROSEMIDE 20 MG TABS once a day 04/11 furosemide 41632265492 Narendra Ricardo MD CLOPIDOGREL BISULFATE 75 MG TABS once a day 04/11 clopidogrel 33300237882 Narendra Ricardo MD INSULIN ISOPHANE twice a day 10/09 HUMAN Narendra Ricardo MD TEMAZEPAM 30 MG CAPS Bedtime 10/09 temazepam 07472001690 Narendra Ricardo MD NAPROXEN SODIUM 220 MG TABS twice a day 04/11 naproxen sodium 63238974247 Narendra Ricardo MD BUMETANIDE 0.5 MG TABS twice a day 04/11 bumetanide 22457332078 Narendra Ricardo MD HYDROCODONE-ACETAMIN OPHEN 5-325 MG TABS every six hours as needed 10/09 hydrocodone-aceta minophen 16751946675 Narendra Ricardo MD WARFARIN SODIUM 1 MG TABS once a day 04/11 warfarin 02027334380 Narendra Ricardo MD FLUTICASONE PROPIONATE HFA 10/09 FLOVENT HFA Narendra Ricardo MD HYDROCHLOROTHIAZIDE 25 MG TABS once a day 10/09 hydrochlorothiazi de 44448476933 Narendra Ricardo MD DONEPEZIL HCL 10 MG TABS Take 1 tablet by mouth once a day 04/11 donepezil 31777883624 Narendra Ricardo MD DONEPEZIL HCL 5 MG TABS 04/11 donepezil 46855535827 Narendra Ricardo MD METFORMIN HCL 500 MG TABS 10/09 metformin 95495564495 Narendra Ricardo MD LANTUS SOLOSTAR 100 UNIT/ML SOPN insulin glargine 35521988936 Samira Ricardo MD POTASSIUM CHLORIDE ER 10 MEQ CR-TABS 10/09 potassium chloride 65181670526 Narendra Ricardo MD FLUOXETINE HCL 10 MG CAPS fluoxetine 71923827708 Narendra Ricardo MD DIAZEPAM 5 MG TABS One tab po 30min before scan. July repeat x 1. 07/23 DIAZEPAM 30023289671 Narendra Ricardo MD WARFARIN SODIUM 1 MG TABS Daily 04/11 WARFARIN SODIUM 1 MG ORAL TABLET 99235696576 System Maintenance VALSARTAN (DIOVAN) 160 MG TAB, [...] Bedtime 04/11 TEMAZEPAM 30 MG ORAL CAPSULE 70107349196 System Maintenance SENNOSIDES 8.6 MG TABS Twice A Day as needed 04/11 SENNOSIDES, SENIOR LIVING 8.6 MG ORAL TABLET 16076757875 System Maintenance POTASSIUM CHLORIDE ER 10 MEQ CR-CAPS Twice A Day 11/23 POTASSIUM CHLORIDE 10 MEQ EXTENDED RELEASE ORAL CAPSULE 10952730121 System Maintenance NYSTATIN 623653 UNIT/GM CREA 2-3X/Day 11/21 NYSTATIN 296601 UNT/ML TOPICAL CREAM 79859538620 System Maintenance NAPROXEN SODIUM 220 MG TABS Twice A Day 04/11 NAPROXEN SODIUM 220 MG ORAL TABLET 22471595776 System Maintenance LEVOFLOXACIN 500 MG TABS null 04/11 LEVOFLOXACIN 500 MG ORAL TABLET 07834129347 System Maintenance IRBESARTAN 300 MG TABS Twice A Day 04/11 IRBESARTAN 300 MG ORAL TABLET 68965001635 System Maintenance INSULIN ISOPHANE (HUMAN) (NOVOLIN N RELION) RELION INJ, 15-25 UNIT SUBCUTANEOUSL Twice A Day 04/11 INSULIN HUMAN, ISOPHANE 100 UNT/ML INJECTABLE SUSPENSION System Maintenance HYDROCHLOROTHIAZIDE 25 MG TABS Daily 04/11 HYDROCHLOROTHIAZI DE 25 MG ORAL TABLET 91516227055 System Maintenance HYDROCHLOROTHIAZIDE 25 MG TABS Daily 04/11 HYDROCHLOROTHIAZI DE 25 MG ORAL TABLET 36931825739 System Maintenance GLIPIZIDE 10 MG TABS Daily 04/11 GLIPIZIDE 10 MG ORAL TABLET 57260757345 System Maintenance FUROSEMIDE 20 MG TABS Daily 04/11 FUROSEMIDE 20 MG ORAL TABLET 30022034478 System Maintenance FLUTICASONE PROPIONATE HFA (FLOVENT HFA) 220 MCG/ACT AER 04/11 120 ACTUAT FLUTICASONE PROPIONATE 0.22 MG/ACTUAT METERED DOS System Maintenance B-12 500 MCG TABS Daily 04/11 VITAMIN B 12 0.5 MG ORAL TABLET 31074938562 System Maintenance CO Q-10 300 MG CAPS Daily 04/11 COENZYME Q10 300 MG ORAL CAPSULE 53292675853 System Maintenance CLOPIDOGREL BISULFATE 75 MG TABS Daily 04/11 CLOPIDOGREL 75 MG ORAL TABLET 63518949965 System Maintenance CLONIDINE HCL 0.3 MG TABS Three Times A Day 04/11 CLONIDINE HYDROCHLORIDE 0.3 MG ORAL TABLET 75445804161 System Maintenance BUMETANIDE 0.5 MG TABS Twice A Day 04/11 BUMETANIDE 0.5 MG ORAL TABLET 13967668914 System Maintenance BISACODYL LAXATIVE 10 MG SUPP Daily as needed 04/11 BISACODYL 10 MG RECTAL SUPPOSITORY 11197573247 System Maintenance ASPIRIN 325 MG TABS Daily 04/11 ASPIRIN 325 MG ORAL TABLET 44119989644 System Maintenance ALBUTEROL SULFATE HFA 108 (90 Base) MCG/ACT AERS Every 4 Hours as needed 04/11 200 ACTUAT ALBUTEROL 0.09 MG/ACTUAT METERED DOSE INHALER 69972911351 System Maintenance HYDROCODONE-ACETAMIN OPHEN 5-325 MG TABS Every 6 Hours as needed 04/11 ACETAMINOPHEN 325 MG / HYDROCODONE BITARTRATE 5 MG ORAL TABL 93197318013 System Maintenance Medications Administered No information available. [...] METOPROLOL Severe, Active Mild Active Tanner nereyda Ni METFORMIN Severe, Active Mild Active Oliv er Haleigh SHANNON LOSARTAN Active Mild Active Narendrarikki Ricardo MD LISINOPRIL Severe, Active Mild Active Tanner nereyda Haleigh SHANNON LEVOFLOXACIN Moderate, Active Mild Active Narendrarikki Ricardo MD INSULIN DETEMIR Severe, Active Mild Active Narendra Haleigh SHANNON INSULIN Severe, Active Mild Active Oliv er Ni FUROSEMIDE Severe, Active Mild Active Tanner nereyda Ni EXENATIDE Moderate, Active Mild Active Ol iver Ni AZITHROMYCIN Severe, Active Mild Active O liver Ni AMLODIPINE Severe, Active Mild Active Tanner nereyda Haleigh SHANNON Results Date Name Value Unit Range Flag Description Office Visit: fax SMOK STATUS 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 Replaced Document: (P) T4, F REE, TSH, VITAMIN B12 B-12 * pg/mL Cobalamin (Vitamin B12) [Mass/volume] in Serum or Plasma TSH 1.75 u[iU]/mL 0.40-4.50 N Thyrotropi n [Units/volume] in Serum or Plasma FRT4 1.0 0.8-1.8 N FREE T4 Internal Other: Verbal Autho rization/Emergency Contact - OBS VERBAL_EMER DONE Verbal authorization and emergency contact External Correspondence: Adin lthcdread Directive/Healthcare power of bankruptcy attorney - OBS AD DISCUSSED Advanced care planning discussed Advanced directive discussed w/member/caregive r; Patient received counseling regarding palliation - symptom management - end of life decisions Office Visit: Office Visit f ax DEMENTIA2 Assessment of cognition performed and results reviewed. Total score [MMSE] [id number] Mild Total scor e [MoCA] MMSE SCORE 21 Total scor e [MMSE] MEDS REVIEW Done Documenta tion of current medications (procedure) Internal Other: Authorizatio n AUTHBENEFIT Yes Authoriza tion: Assignment of Benefits and Payment Agreement [email or web address] Yes Authorizat ion: Authorization for [facility] to leave messages, voicemail, send text messages, send emails AUTHRELHCARE Yes Authoriz ation: Release/Retrieval of Information to/from Healthcare Facilities, Pharmacy Benefit Payers and Providers ROIAUTHOTHER Yes Authoriz ation: Release of Information - Authorize Others/Insurance - Payment and Healthcare Operations [email or web address] Yes Authoriza tion: Release of Information - Authorize [facility] - Payment and Healthcare Operations [email or web address] Yes Authoriz ation: Notice of privacy practices HIECONSENT Yes Consent To Release information to the Health Information Exchange (HIE) Plan of Care Type Date Detail Appointment 01:00 PM Laila Larkin PA-C, [address], [address], [place], [address], Pending order Follow up DOUGLAS Pending order Follow up DOUGLAS Pending order Patient Instruct ions Pending order Follow up Pending order Obtain outside r ecords Pending order Obtain outside r ecords Pending order Patient Instruct ions Pending order Follow up DOUGLAS Pending Order exclud ed from report: Pending order Follow up DOUGLAS Pending order [...] Procedures Code Procedure Name Date Entry Date ORDERS Follow up [facility]-[id number] Documentation of current medicatio ns [facility]-[id number] Documentation of current medicatio ns ORDERS Patient Instructions ORDERS Patient Instructions LOINC 40358-9 MMSE ORDERS Follow up DOUGLAS ORDERS Patient Instructions SCT-[id number] Documentation of current medicatio ns ORDERS Follow up LOINC 62277-3 MMSE ORDERS Obtain outside records 04/11 ORDERS Follow up DOUGLAS in clinic or telemedicine 2 LOINC 87244-4 MMSE ORDERS Patient Instructions SCT-[id number] Documentation of current medicatio ns ORDERS Patient Instructions ORDERS Occupational Therapy SCT-[id number] Documentation of current medicatio ns CPT-69885 Free Service ORDERS Follow up telemedicine 11/28 ORDERS Neuropsychology Evaluation 2 ORDERS Patient Instructions [facility]-[id number] Documentation of current medicatio ns ORDERS Follow up ORDERS Patient Instructions ORDERS Patient Instructions SCT-[id number] Documentation of current medicatio ns ORDERS Follow up DOUGLAS [id number] Consult SCT-[id number] Documentation of current medicatio ns ORDERS Patient Instructions ORDERS Follow up CPT-24060 Npsy Interp/Rpt by Provider - 1st hour 20 29/03/06 ORDERS Neuropsych Testing 0 CPT-88015 Npsy Interview w/Provider - 1st hour 2018 CPT-68721 Npsy Interp/Rpt by Provider - 1st hour 20 26/02/04 CPT-48428 Npsy Interp/Rpt by Provider - 2 hours 201 11/20/03 CPT-61777 Npsy Test by Tech (2+ Tests) - 1st 30 min CPT-90018 Npsy Test by Tech (2+ Tests) - 1.5 hours CPT-77336 MRI Brain W/O [id number] MRI-Brain W/O [facility]-[id number] Documentation of current medicatio ns ORDERS Patient [...] Weight Measured 280 [lb_av] weight E& M Weight Measured 280 [lb_av] weight E& M Immunizations No information available. Advance Directives No information available.
--- OUTSIDE RECORDS SUMMARY | 2024-07-03 20:49 | XMS_ITS ---
Author Organization [facility] Address [address] , [address] [place] [address] Phone Care Team Providers Care Chronometer Assembler Name Role Phone Narendra Ricardo MD Unavailable Conditions or Problems No information available. Medications No information available. Medications Administered No information available. Allergies, Adverse Reactions, Alerts No information available. Results Date Name Value Unit Range Flag Description Office Visit: Office Visit f ax MEDS REVIEW Done Documenta tion of current medications (procedure) Plan of Care Type Date Detail Appointment 01:00 PM Laila Larkin PA-C, [address], [address], [place], [address], Pending order Follow up DOUGLAS Pending order Follow up DOUGLAS Pending order Patient Instruct ions Procedures Code Procedure Name Date Entry Date SCT-[id number] Documentation of current medicatio ns [facility]-[id number] Documentation of current medicatio ns ORDERS Patient Instructions Vital Signs Date Name Value Unit Description Height 66 [in_us] height E&M Immunizations No information available. Advance Directives No information available.
--- OUTSIDE RECORDS SUMMARY | 2024-07-03 20:50 | XMS_ITS | Clinical Summary ---
Author Organization [facility] Address [address] [place] [address] Care Team Providers Care Senior Recruitment Consultant Name Role Phone Zahira Feldman MD Unavailable + [facility] Unavailable Darlene Mendoza MD Primary Care Provider [phone] Allergies Active Allergy Reactions Criticality Noted Date Comments Amlodipine 09/07/2008 PN: rash Azithromycin 09/06/2018 Clopidogrel Swelling Low 02/05/2022 Esterified Estrogens 11/11/2001 headaches Exenatide 09/06/2018 Metformin Other (See Comments) High 09/07/2008 PN: H/A Put her in the hospital Insulin Low 02/17/2018 Other reaction(s): Severe, Active Insulin Detemir Hives High 02/17/2018 Furosemide 09/06/2018 Levofloxacin High 02/17/2018 Other reaction(s): Bruising, Moderate, Active Lisinopril 09/06/2018 Losartan 04/16/2011 Other reaction(s): Chest Pain PN: SOB Mercury 11/11/2001 Metoprolol High 09/07/2008 Other reaction(s): Respiratory Arrest PN: RESPIRATORY ARREST Metoprolol Succinate 11/11/2001 fatigue, diaphoresis Naproxen 11/11/2001 fingernail color changes Naproxen Sodium 11/11/2001 cough Penicillins 11/11/2001 Pioglitazone 09/06/2018 Simvastatin 01/12/2002 fatigue Sitagliptin 09/06/2018 Medications hydrochlorothia zide (HYDRODIURIL) 25 MG tablet Take 25 mg by mouth daily. Active Coenzyme Q10 300 MG CAPS Take 1 tablet by mouth daily Active cyanocolbalamin (VITAMIN B-12) 500 MCG tablet Take 500 mcg by mouth daily Active donepezil (ARICEPT) 10 MG tablet Take 10 mg by mouth at bedtime. Active irbesartan (AVAPRO) 150 MG tablet Take 150 mg by mouth 2 times daily. Active FLUoxetine (PROZAC) 10 MG capsule Take 10 mg by mouth daily Active insulin glargine (LANTUS PEN) 100 UNIT/ML penIndications: Type 2 diabetes mellitus without complication, with long-term current use of insulin (H) Inject 10 Units Subcutaneous At Bedtime 15 mL 3 Active TRELEGY ELLIPTA 200-62.5-25 MCG/ACT oral inhaler Inhale 1 puff into the lungs daily. Active QUEtiapine (SEROQUEL) 25 MG tablet Take 25 mg by mouth at bedtime. 3 Active calcium carbonate (OS-OLAF) 500 MG tablet Take 1 tablet by mouth daily. Active Elemental iron 65 mg Vitamin C 125 mg (VITRON C) 65-125 MG TABS tablet Take 1 tablet by mouth every other day. Active cholecalciferol (VITAMIN D3) 25 mcg (1000 units) capsule Take 1 capsule by mouth daily. Active oxyBUTYnin ER (DITROPAN XL) 10 MG 24 hr tablet Take 10 mg by mouth daily. Active acetaminophen (TYLENOL) 500 MG tablet Take 1,000 mg by mouth every 8 hours as needed for mild pain. Active gabapentin (NEURONTIN) 100 MG capsuleIndicati ons:Closed fracture of multiple ribs, unspecified laterality, sequela Take 1 capsule (100 mg) by mouth 3 times daily for 5 days. 15 capsule 4 Active Active Problems Problem Noted Date Diagnosed Date Shortness of breath 12/10/2023 Closed fracture of multiple ribs of left side, initial encounter 12/10/2023 Fall, initial encounter 07/14/2022 Avulsion of skin of left elbow, initial encounte r 07/14/2022 Multiple rib fractures 07/14/2022 Mild cognitive impairment 02/02/2022 Severe obesity with body mas s index (BMI) of 35.0 to 35.9 and comorbidity 02/02/2022 Chronic heart failure with p reserved ejection fraction (HFpEF) 02/02/2022 Type 2 diabetes mellitus wit hout complication, with long-term current use of insulin 02/02/2022 S/P reverse total shoulder arthroplasty, left Hyperlipidemia LDL goal <100 02/02/2022 Hypertension, unspecified type 02/02/2022 COPD (chronic obstructive pulmonary disease) CARDIOVASCULAR SCREENING; LDL GOAL LESS THAN 130 01/07/2010 Resolved Problems Problem Noted Date Diagnosed Date Resolved Date Syncope 04/07/2020 02/02/2022 Hypoglycemia 04/07/2020 02/02/2022 LUQ abdominal pain 04/07/2020 Fall, initial encounter 04/07/202001/09 Closed fracture of distal en d of right radius, unspecified fracture morphology, initial encounter 04/07/2020 02/02/2022 Lower GI bleed 04/12/2019 02/02/2022 Chest pain 10/07/2017 02/02/2022 Aftercare following joint replacement 07/05/2009 08/16/2009 Knee joint replacement by other means 07/05/2009 08/16/2009 Knee joint replacement by other means 02/03/2009 07/05/2009 Aftercare following joint replacement 01/31/2009 07/05/2009 Shoulder joint replacement by other means 01/31/2009 02/03/2009 Abdominal pain, unspecified abdominal location 08/19/2007 02/02/2022 Overview (12/09/2014): Problem list name updated by automated process. Provider to review Immunizations Name Administration Dates Next Due Flu 65+ (Fluad) 11/20/2017,10/23/2016 Flu, Unspecified 12/27/2008 HEPA 03/16/2003 09/14/2003 Influenza (High Dose) Trival ent,PF (Fluzone) 11/20/2023,01/16/2016,12/24/2014 Influenza (IIV3) PF 12/20/2013, 3,12/03/2011,11/27,12/26/2009,12/09/2003,12/08/2002 Influenza Vaccine 18-64 (Flublok) 12/24/2018 Influenza Vaccine 65+ (FLUAD) 11/15/2022, 022,03/09/2021 Influenza Vaccine >6 months,quad, PF 11/02/2019 Influenza, Split Virus, Triv alent, Pf (Fluzone\Fluarix) 12/27/2009,12/09/2003,12/08/2002 Pneumococcal 23 valent 09/19/1997 TD,PF 7+ (Tenivac) 03/16/2003 03/16/2008 Social History Tobacco Use Types Packs/Day Years Used Date Smoking Tobacco: Former Cigarettes Q uit: 11/12/1991 Smokeless Tobacco: Never Tobacco Cessation:Counseling Given: No Alcohol Use Standard Drinks/Week Comments No 0 [...] you bought just not last and you didn t have money to get more? No 12/10/2023 Housing Stability Answer Date Recorded Do you have housing? (Housin g is defined as stable permanent housing and does not include staying outside in a car, in a tent, in an abandoned building, in an overnight care home, or couch-surfing.) Yes 12/10/2023 Are you worried [...] on file Legal Sex Female 3:23 AM [employer] Gender Identity Not on file Sexual Orientation Not on file Last Filed Vital Signs Vital Sign Reading Time Taken Comments Blood Pressure 117/64 12/11/2023 12:50 PM CDT Pulse 85 12/11/2023 12:50 PM CDT Temperature 36.4 C (97.5 F) 12/11/2023 12:50 PM CDT Respiratory Rate 17 12/11/2023 12:50 PM CDT Oxygen Saturation 91% 12/11/2023 12:50 PM CDT Inhaled Oxygen Concentration - - Weight 142.4 kg (314 lb) 12/09/2023 10:00 PM CDT Height 170.2 cm (5' 7) 12/09/2023 10:00 PM CDT Body Mass Index 49.18 12/09/2023 10:00 PM CDT Plan of Treatment Health Maintenance Due Date Last Done Comments ANNUAL REVIEW OF HM ORDERS 1936 COPD ACTION PLAN [address] CT COLONOGRAPHY 1935 DEXA 1935 FLEX SIG 1936 HF ACTION PLAN 1935 MICROALBUMIN 1936 SPIROMETRY 1936 sDNA (Cologuard) 1935 MEDICARE ANNUAL WELLNESS VISIT 01/16/2001 DIABETIC FOOT EXAM 03/30/2004 03/30/2003 RSV VACCINE (1 - 1-dose 75+ series) 01/16/2011 LIPID 04/20/2011 04/20/2010, 04/11, 08/17/2002, Additional history exists EYE EXAM 11/04/2018 11/04/2017, 10/09, 12/20/2016, Additional history exists FIT 04/12/2020 04/12/2019 FALL RISK ASSESSMENT 05/03/2022 05/03/2021, 05/03/2021, 11/04/2017 COVID-19 Vaccine ( season) 2023 12/31/2022, 11/28/2021, 12/07/2020, Additional history exists PHQ-2 (once per calendar year) 2024 08/26/2022, 05/03/2021, 11/04/2017 COLONOSCOPY 04/15/2024 04/15/2019, 08/2019, 11/28/2009 COLORECTAL CANCER SCREENING 04/15/2024 BMP 06/10/2024 12/11/2023, 100 04/2023, 12/09/2023, Additional history exists A1C 12/05/2024 06/04/2024, 100 03/2023, 07/14/2022, Additional history exists ALT 12/08/2024 12/09/2023, 03/11, 03/30/2020, Additional history exists CBC 06/04/2025 06/04/2024, 100 05/2023, 12/09/2023, Additional history exists DTAP/TDAP/TD IMMUNIZATION (6 - Td or Tdap) 10/28/2028 10/28/2018, 03/07/2008, 03/07/2008, Additional history exists ADVANCE CARE PLANNING 12/14/2028 12/15/2023 , 07/16/2022, 10/08/2017 MAMMO SCREENING Discontinued 10/03/2014, 06/08, 04/08/2003, Additional history exists Pneumococcal Vaccine: 50+ Years Completed 10/23/2016, 05/19/2014, 03/10/2001, Additional history exists ZOSTER IMMUNIZATION Completed 10/11/2019, 9 TSH W/FREE T4 REFLEX Completed 04/07/2020 INFLUENZA VACCINE Completed 11/20/2023, , 11/15/2022, Additional history exists HPV IMMUNIZATION Aged Out No longer e ligible based on patient's age to complete this topic MENINGITIS IMMUNIZATION Aged Out No l onger eligible based on patient's age to complete this topic Procedures Procedure Name Priority Date/Time Associated Diagnosis Comments TRIP CHARGE - LAB ONLY Routine 06/04/2024 10:51 AM CDT Encounter for general adult medical examination without abnormal findings Other specified counseling Age-related physical debility Atherosclerotic heart disease of [place] coronary artery without angina pectoris Unspecified atrial fibrillation (H) Chronic diastolic (congestive) heart failure (H) Chronic obstructive pulmonary disease, unspecified (H) Unspecified dementia, unspecified severity, with mood disturbance (H) Iron deficiency anemia, unspecified Alzheimer's disease, unspecified (CODE) (H) Obstructive sleep apnea (adult) (pediatric) Other specified disorders of bone density and structure, unspecified site Essential (primary) hypertension Type 2 diabetes mellitus without complications (H) Abnormal weight loss Unsteadiness on feet Venous insufficiency (chronic) (peripheral) Acute cystitis without hematuria Pressure ulcer of left buttock, stage 2 (H) HEMOGLOBIN A1C Routine 06/04/2024 10:51 AM CDT Encounter for general adult medical examination without abnormal findings Other specified counseling Age-related physical debility Atherosclerotic heart disease of [place] coronary artery without angina pectoris Unspecified atrial fibrillation (H) Chronic diastolic (congestive) heart failure (H) Chronic obstructive pulmonary disease, unspecified (H) Unspecified dementia, unspecified severity, with mood disturbance (H) Iron deficiency anemia, unspecified Alzheimer's disease, unspecified (CODE) (H) Obstructive sleep apnea (adult) (pediatric) Other specified disorders of bone density and structure, unspecified site Essential (primary) hypertension Type 2 diabetes mellitus without complications (H) Abnormal weight loss Unsteadiness on feet Venous insufficiency (chronic) (peripheral) Acute cystitis without hematuria Pressure ulcer of left buttock, stage 2 (H) BASIC METABOLIC PANEL NO GLUCOSE (OUTREACH) Routine 06/04/2024 10:51 AM CDT Encounter for general adult medical examination without abnormal findings Other specified counseling Age-related physical debility Atherosclerotic heart disease of [place] coronary artery without angina pectoris Unspecified atrial fibrillation (H) Chronic diastolic (congestive) heart failure (H) Chronic obstructive pulmonary disease, unspecified (H) Unspecified dementia, unspecified severity, with mood disturbance (H) Iron deficiency anemia, unspecified Alzheimer's disease, unspecified (CODE) (H) Obstructive sleep apnea (adult) (pediatric) Other specified disorders of bone density and structure, unspecified site Essential (primary) hypertension Type 2 diabetes mellitus without complications (H) Abnormal weight loss Unsteadiness on feet Venous insufficiency (chronic) (peripheral) Acute cystitis without hematuria Pressure ulcer of left buttock, stage 2 (H) GLUCOSE (OUTREACH) Routine 06/04/2024 10 :51 AM CDT Encounter for general adult medical examination without abnormal findings Other specified counseling Age-related physical debility Atherosclerotic heart disease of [place] coronary artery without angina pectoris Unspecified atrial fibrillation (H) Chronic diastolic (congestive) heart failure (H) Chronic obstructive pulmonary disease, unspecified (H) Unspecified dementia, unspecified severity, with mood disturbance (H) Iron deficiency anemia, unspecified Alzheimer's disease, unspecified (CODE) (H) Obstructive sleep apnea (adult) (pediatric) Other specified disorders of bone density and structure, unspecified site Essential (primary) hypertension Type 2 diabetes mellitus without complications (H) Abnormal weight loss Unsteadiness on feet Venous insufficiency (chronic) (peripheral) Acute cystitis without hematuria Pressure ulcer of left buttock, stage 2 (H) CBC WITH PLATELETS Routine 06/04/2024 10 :51 AM CDT Encounter for general adult medical examination without abnormal findings Other specified counseling Age-related physical debility Atherosclerotic heart disease of [place] coronary artery without angina pectoris Unspecified atrial fibrillation (H) Chronic diastolic (congestive) heart failure (H) Chronic obstructive pulmonary disease, unspecified (H) Unspecified dementia, unspecified severity, with mood disturbance (H) Iron deficiency anemia, unspecified Alzheimer's disease, unspecified (CODE) (H) Obstructive sleep apnea (adult) (pediatric) Other specified disorders of bone density and structure, unspecified site Essential (primary) hypertension Type 2 diabetes mellitus without complications (H) Abnormal weight loss Unsteadiness on feet Venous insufficiency (chronic) (peripheral) Acute cystitis without hematuria Pressure ulcer of left buttock, stage 2 (H) URINE CULTURE Routine 05/30/2024 10:45 AM CDT Disorientation, unspecified ROUTINE UA WITH MICROSCOPIC Routine 05/30/2024 10:45 AM CDT Disorientation, unspecified URINE CULTURE Routine 05/21/2024 7:05 AM CDT Disorientation, unspecified ROUTINE UA WITH MICROSCOPIC Routine 05/21/2024 7:05 AM CDT Disorientation, unspecified BASIC METABOLIC PANEL Routine 12/11/2023 7:08 AM CDT HEPATIC FUNCTION PANEL STAT 12/09/2023 10:08 PM CDT TSH WITH FREE T4 REFLEX STAT 04/07/2020 1:59 PM [employer] COLONOSCOPY Routine 04/15/2019 11:47 AM [employer] OCCULT BLOOD STOOL STAT 04/12/2019 3: 27 PM [employer] LIPID PROFILE Timed 04/20/2010 6:16 AM [employer] EYE EXAM - HIM SCAN 12/18/2005 1 2:00 AM CDT C MAMMOGRAM, SCREENING Routine 04/08/2003 1:03 PM [employer] Screening Mamm-Mailg Neopl-Other C FOOT EXAM Routine 03/30/2003 5:13 PM [employer] Diabetes Uncompl Adult-Type Ii from Last 3 Months or Most Recently Relevant to Health Maintenance Results * Trip Charge - LAB ONLY (06/04/2024 10:51 AM CDT) Other TOPOGRAPHY UNKNOWN / Unknown Billing only / Unknown 06/04/2024 10:51 AM CDT 06/04/2024 2:32 PM CDT us Margaux Talbot PA-C LAB CHARGE PERFORMABL ES Final Result [facility] [address] [place] [address], [facility] * Basic Metabolic Panel No Glucose (OUTREACH) (06/04/2024 10:51 AM CDT) Sodium 140 135 - 145 mmol/L 06/04/2024 6:07 PM CDT [facility] Potassium 3.5 3.4 - 5.3 mmol/L 06/04/2024 6:07 PM CDT [facility] Chloride 100 98 - 107 mmol/L 06/04/2024 6:07 PM CDT [facility] Carbon Dioxide (CO2) 28 22 - 29 mmol/L 06/04/2024 6:07 PM CDT [facility] Anion Gap 12 7 - 15 mmol/L 06/04/2024 6:07 PM CDT [facility] Urea Nitrogen 13.7 8.0 - 23.0 mg/dL 06/04/2024 6:07 PM CDT [facility] Creatinine 0.75 0.51 - 0.95 mg/dL 06/04/2024 6:07 PM CDT [facility] GFR Estimate 76 >60 mL/min/1.7 3m2 06/04/2024 6:07 PM CDT [facility] Calcium 9.3 8.8 - 10.4 mg/dL 06/04/2024 6:07 PM CDT [facility] Blood STRUCTURE OF LEFT UPPER LIMB / Unknown Venipuncture / Unknown 06/04/2024 10:51 AM CDT 06/04/2024 2:32 PM CDT us Margaux Talbot PA-C LAB - BLOOD ORDERABLE S Final Result [facility] [address] [facility], [address] * Glucose (OUTREACH) (06/04/2024 10:51 AM CDT) Glucose 79 70 - 99 mg/dL 06/04/2024 6:33 PM CDT [facility] Blood STRUCTURE OF LEFT UPPER LIMB / Unknown Venipuncture / Unknown 06/04/2024 10:51 AM CDT 06/04/2024 2:32 PM CDT us Margaux Talbot PA-C LAB - BLOOD ORDERABLE S Final Result [facility] [address] [facility], [address] * (ABNORMAL) Hemoglobin A1c (06/04/2024 10:51 AM CDT) Estimated Average Glucose 151(H) <117 mg/dL 06/04/2024 4:45 PM CDT [facility] Hemoglobin A1C 6.9(H) <5.7 % 06/04/2024 4:45 PM CDT [facility] Comment: Normal <5.7% Prediabetes 5.7-6.4% Diabetes 6.5% or higher Note: Adopted from ADA consensus guidelines. Blood STRUCTURE OF LEFT UPPER LIMB / Unknown Venipuncture / Unknown 06/04/2024 10:51 AM CDT 06/04/2024 2:32 PM CDT us Margaux Talbot PA-C LAB - BLOOD ORDERABLE S Final Result [facility] [address] [facility], [address] [place] [phone] * (ABNORMAL) CBC with platelets (06/04/2024 10:51 AM CDT) WBC Count 4.1 4.0 - 11.0 10e3/uL 06/04/2024 4:23 PM CDT [facility] RBC Count 4.37 3.80 - 5.20 10e6/uL 06/04/2024 4:23 PM CDT [facility] Hemoglobin 13.5 11.7 - 15.7 g/dL 06/04/2024 4:23 PM CDT [facility] Hematocrit 42.8 35.0 - 47.0 % 06/04/2024 4:23 PM CDT [facility] MCV 98 78 - 100 fL 06/04/2024 4:23 PM CDT [facility] MCH 30.9 26.5 - 33.0 pg 06/04/2024 4:23 PM CDT [facility] MCHC 31.5 31.5 - 36.5 g/dL 06/04/2024 4:23 PM CDT [facility] RDW 16.5(H) 10.0 - 15.0 % 06/04/2024 4:23 PM CDT [facility] Platelet Count 181 150 - 450 10e3/uL 06/04/2024 4:23 PM CDT [facility] Blood STRUCTURE OF LEFT UPPER LIMB / Unknown Venipuncture / Unknown 06/04/2024 10:51 AM CDT 06/04/2024 2:32 PM CDT us Margaux Talbot PA-C LAB - BLOOD ORDERABLE S Final Result [facility] [address] [facility] [address], [address] [place] [phone] * (ABNORMAL) UA with Microscopic (05/30/2024 10:45 AM CDT) Only the most recent of2 resultswithin the time period is included. Color Urine Light Yellow Colorless, Straw, Light Yellow, Yellow 05/31/2024 8:49 AM CDT [facility] Appearance Urine Slightly Cloudy(A) Clear 05/31/2024 8:49 AM CDT [facility] Glucose Urine Negative Negative mg/dL 05/31/2024 8:49 AM CDT [facility] Bilirubin Urine Negative Negative 8:49 AM CDT [facility] Ketones Urine Negative Negative mg/dL 05/31/2024 8:49 AM CDT [facility] Specific [place] Urine 1.012 1.003 - 1.035 05/31/2024 8:49 AM CDT [facility] Blood Urine Negative Negative 05/31/2024 8:49 AM CDT [facility] pH Urine 6.5 5.0 - 7.0 05/31/2024 8:49 AM CDT [facility] Protein Albumin Urine Negative Negative mg/dL 05/31/2024 8:49 AM CDT [facility] Urobilinogen Urine Normal Normal, 2.0 mg/dL 05/31/2024 8:49 AM CDT [facility] Nitrite Urine Positive(A) Negative 05/31/2024 8:49 AM CDT [facility] Leukocyte Esterase Urine Trace(A) Negative 05/31/2024 8:49 AM CDT [facility] Bacteria Urine Few(A) None Seen /HPF 05/31/2024 8:49 AM CDT [facility] WBC Clumps Urine Present(A) None Seen /HPF 05/31/2024 8:49 AM CDT [facility] Mucus Urine Present(A) None Seen /LPF 05/31/2024 8:49 AM CDT [facility] RBC Urine <1 <=2 /HPF 05/31/2024 8:49 AM CDT [facility] WBC Urine 26(H) <=5 /HPF 05/31/2024 8:49 AM CDT [facility] Squamous Epithelials Urine 2(H) <=1 /HPF 05/31/2024 8:49 AM CDT [facility] Urine URINE SPECIMEN / Unknown Non-blood Collection / Unknown 05/30/2024 10:45 AM CDT 05/31/2024 8:34 AM CDT us Margaux Talbot PA-C LAB - URINE ORDERABLE S Final Result [facility] [address] [facility], [address] [place], [place] [phone] * (ABNORMAL) Urine Culture (05/30/2024 10:45 AM CDT) Only the most recent of2 resultswithin the time period is included. Culture >100,000 CFU/mL Pseudomonas aeruginosa, mucoid strain(A) THOMAS 06/03/2024 9:36 AM CDT [facility] Culture <10,000 CFU/mL Urogenital suellen 06/03/2024 9:36 AM CDT [facility] Urine URINE SPECIMEN / Unknown Non-blood Collection / Unknown 05/30/2024 10:45 AM CDT 05/31/2024 8:34 AM CDT Narrative Organism Antibiotic Method Susceptibility Pseudomonas aeruginosa, mucoid strain Cefepime THOMAS <=2 ug/mL: Susceptible Pseudomonas aeruginosa, mucoid strain Ceftazidime THOMAS <=1 ug/mL: Susceptible Pseudomonas aeruginosa, mucoid strain Ciprofloxacin THOMAS <=0.25 ug/mL: Susceptible Pseudomonas aeruginosa, mucoid strain Levofloxacin THOMAS <=0.5 ug/mL: Susceptible Pseudomonas aeruginosa, mucoid strain Amikacin THOMAS <=8 ug/mL: Susceptible Pseudomonas aeruginosa, mucoid strain Piperacillin/Tazobactam THOMAS <=8 ug/mL: Susceptible Pseudomonas aeruginosa, mucoid strain Meropenem THOMAS <=0.5 ug/mL: Susceptible us Margaux Talbot PA-C LAB - MICRO GENERAL O RDERABLES Final Result [facility] [address] [facility], [address] [place] [phone] * (ABNORMAL) Basic metabolic panel (12/11/2023 7:08 AM CDT) [facility] Signature Sodium 137 135 - 145 mmol/L 12/11/2023 7:43 AM CDT [facility] Potassium 4.4 3.4 - 5.3 mmol/L 12/11/2023 7:43 AM CDT LABORATORY Chloride 98 98 - 107 [...] Comment:eGFR calculated usin 2020 CKD-EPI equation. Calcium 8.6(L) 8.8 - [...] - BLOOD ORDERABLES Fi nal Result LABORATORY [facility] [address] (1st floor, no room number) [place] [id number] [place] [address] * Hepatic function panel (12/09/2023 10:08 PM CDT) Protein Total 6.8 6.4 - 8.3 g/dL 12/09/2023 11:01 PM CDT [facility] Albumin 4.0 3.5 - 5.2 g/dL 12/09/2023 11:01 PM CDT [facility] Bilirubin Total 0.4 <=1.2 mg/dL 12/09/2023 11:01 PM CDT [facility] Alkaline Phosphatase 84 40 - 150 U/L 12/09/2023 11:01 PM CDT [facility] AST 27 0 - 45 U/L 12/09/2023 11:01 PM CDT LABORATORY ALT 31 0 - 50 U/L 12/09/2023 11:01 PM CDT LABORATORY Bilirubin Direct <0.20 0.00 - 0.30 mg/dL 12/09/2023 11:01 PM CDT LABORATORY Blood BLOOD SPECIMEN / Unknown Venipuncture / Unknown 12/09/2023 10:08 PM CDT 12/09/2023 10:26 PM CDT us Austin Reardon MD LAB - BLOOD ORDERABLES Final R esult [facility] [address] (1st floor, no room number) [place] [phone] * TSH with free T4 reflex (04/07/2020 1:59 PM [employer]) TSH 1.10 0.40 - 4.00 mU/L 04/07/2020 2:42 PM [employer] [facility] Blood specimen (specimen) 04/07/2020 1:59 PM [employer] 04/07/2020 2:11 PM [employer] us Austin Mccarty PA-C LAB - BLOOD ORDERABLES Final Re sult [facility] [address] [place] [address], [facility] [phone] * COLONOSCOPY (04/15/2019 11:47 AM [employer]) COLONOSCOPY [facility] Patient Name: Alyx Sarmiento Procedure Date: 04/15/2019 11:47 AM Date of : 1935 Admit Type: Inpatient Age: 84 Gender: Female Attending MD: Dina Johnson MD Total Sedation Time: Instrument Name: 219 - Pediatric Colonoscope Procedure: Colonoscopy Indications: Hematochezia Providers: Dina Johnson MD (Doctor) Referring MD: Medicines: Midazolam 2 mg IV, Fentanyl 150 micrograms IV Complications: No immediate complications. Procedure: Pre-Anesthesia Assessment: - Prior to the procedure, a History and Physical was performed, and patient medications and allergies were reviewed. The patient is competent. The risks and benefits of the procedure and the sedation options and risks were discussed with the patient. All questions were answered and informed consent was obtained. Patient identification and proposed procedure were verified by the physician in the procedure room. Mental Status Examination: alert and oriented. Airway Examination: normal oropharyngeal airway and neck mobility. Respiratory Examination: clear to auscultation. CV Examination: normal. Prophylactic Antibiotics: The patient does not require prophylactic antibiotics. Prior Anticoagulants: The patient has taken no previous anticoagulant or antiplatelet agents. ASA Grade Assessment: III - A patient with severe systemic disease. After reviewing the risks and benefits, the patient was deemed in satisfactory condition to undergo the procedure. The anesthesia plan was to use moderate sedation / analgesia (conscious sedation). Immediately prior to administration of medications, the patient was re-assessed for adequacy to receive sedatives. The heart rate, respiratory rate, oxygen saturations, blood pressure, adequacy of pulmonary ventilation, and response to care were monitored throughout the procedure. The physical status of the patient was re-assessed after the procedure. After obtaining informed consent, the colonoscope was passed under direct vision. Throughout the procedure, the patient's blood pressure, pulse, and oxygen saturations were monitored continuously. The Olympus, Pediatric Colonoscope, Model # PCF-H190DL, [place]ora # 219, SN # [id number] was introduced through the anus and advanced to the cecum, identified by the ileocecal valve. The colonoscopy was performed without difficulty. The patient tolerated the procedure well. The quality of the bowel preparation was poor. Findings: The perianal and digital rectal examinations were normal. Multiple small and large-mouthed diverticula were found in the sigmoid colon, descending colon and transverse colon. Old blood was seen in the diverticula and along much of the left colon into the transverse. There were also areas of solid stool making visualization quite difficult. The scope repeatedly clogged and required back flushing. I am fairly sure I reached the cecum as I believe I saw the IC valve, however there was such a large amount of solid debris in this area it could not be cleared despite multiple attmempts. There was no blood seen in the right colon. Very long colon, filled with debris. Impression: - Preparation of the colon was poor with solid debris greatly limiting views - Severe diverticulosis with old blood and clot in the left colon, likely a diverticular bleed. No fresh blood, I think the bleeding has stopped. - very long colon, it may take several days to clear out the blood and debis seen today Recommendation: No evidence of ongoing bleeding. Given the presence of clot and old blood in the left with severe diverticulosis, I think the patient likely had a diverticular bleed. I will advance her diet. Will need to watch for signs of rebleeding, this will be difficult given the amount of old blood in the colon that could not be lavaged today due to solid stool. Will need to continue to monitor hemoglobin. Consider IV iron infusion Advance diet and monitor for now If rebleeding, she will need a consult from Interventional Radiology Procedure Code(s): --- Professional --- 96083, Colonoscopy, flexible; diagnostic, including collection of specimen(s) by brushing or washing, when performed (separate procedure) CPT copyright 2018 [employer]. All rights reserved. The codes documented in this report are preliminary and upon tableau architect review may be revised to meet current compliance requirements. Electonically signed by Dina Johnson MD Dina Johnson MD 04/15/2019 12:38:38 PM I was physically present for the entire viewing portion of the exam. Dina Johnson MD Number of Addenda: 0 Note Initiated On: 04/15/2019 11:47 AM CC Letter to: Darien Sanchez MD (CC) Procedure Date: 04/15/2019 11:47:53 AM Scope Withdrawal Time: 0 hours 9 minutes 12 seconds Total Procedure Duration: 0 hours 24 minutes 52 seconds Estimated Blood Loss: 0 ml Scope In: 12:04:40 PM Scope Out: 12:29:32 PM RADIOLOGY RESULTS 04/15/2019 11:4 7 AM [employer] Dina Johnson MD PROCEDURES Final R esult RADIOLOGY RESULTS * (ABNORMAL) Occult blood stool (04/12/2019 3:27 PM [employer]) Occult Blood Positive(A ) NEG^Negati ve 04/12/2019 3:46 PM [employer] [facility] Comment: Called to AGUSTIN DELANEY (LIBIA) ON 04.12.19 AT 1546 BY KV 04/12/2019 3:27 PM [employer] 04/12/2019 3:40 PM [employer] us Arley Ham MD LAB - STOOLS ORDERABLES Edited Result - Final Performing Organization Address [facility] Co de Phone Number [facility] [address] [place] [address], [facility] [phone] * (ABNORMAL) Lipid panel (04/20/2010 6:16 AM [employer]) Cholesterol 160 0 - 200 mg/dL [facility] Comment: LDL Cholesterol is the primary guide to therapy. The NCEP recommends further evaluation of: patients with cholesterol <200 mg/dL if additional risk factors are present, cholesterol >240 mg/dL, triglycerides >150 mg/dL, or HDL <40 mg/dL. Triglycerides 99 0 - 150 mg/dL [facility] HDL Cholesterol 38(L) 50 - 110 mg/dL [facility] LDL Cholesterol Calculated 102 0 - 129 mg/dL [facility] Comment: LDL Cholesterol is the primary guide to therapy: LDL-cholesterol goal in high risk patients is <100 mg/dL and in very high risk patients is <70 mg/dL. VLDL-Cholesterol 20 0 - 30 mg/dL [facility] Cholesterol/HDL Ratio 4.2 0.0 - 5.0 [facility] 04/20/2010 6:16 AM [employer] 04/20/2010 7:00 AM [employer] us Pilo Ortiz DO LAB - BLOOD ORDERABLES Fin al Result [facility] * EYE EXAM - HIM SCAN (12/18/2005 12:00 AM CDT) 12/18/2005 us Provider Outside OTHER Final Result * MAMMOGRAM, SCREENING (04/08/2003 1:03 PM [employer]) MAMMOGRAM Anatomical Region Laterality Modality Mammography Impressions 04/08/2003 1:03 PM [employer] RADIOLOGIST'S INTERPRETATION: Breast parenchyma: fatty/mild densities IMAGING IMPRESSION: (CATEGORY-1) NEGATIVE Radiologist: Spencer Frye Apr Electronically filed by Kathleen Harrington 04/13/2003 2:52 PM Petr Lindquist MD SPECIAL IMAGING STUDIES Final R esult from Last 3 Months or Most Recently Relevant to Health Maintenance Insurance [facility] MEDICARE ADVANTAGE BCBS MEDICARE ADVANTAGE BCBS MEDICARE ADVANTAGE Advance Directives For more information, please contact: [phone] Documents on File Type Date Recorded Patient Sharepoint Administrator Expl anation Advance Directives and Living Will 07/16/2022 Health Care Directiv e 08/15/2014 * No CPR- Do NOT Intubate (Latest Code Status on File) Date Activated Date Inactivated Comments 12/10/2023 2:30 AM 12/11/2023 7:08 PM NO basic or advanced life-sustaining interventions are performed Question Answer Comments Code status determined by: AD/POLST (patient dec ision maker unavailable) * Full Code Date Activated Date Inactivated Comments 07/16/2022 3:34 PM 07/17/2022 6:33 PM All basic and advanced life-sustaining interventions are performed as appropriate Question Answer Comments Code status determined by: Discussion with patie nt/ legal decision maker * No CPR- Pre-arrest intubation OK Date Activated Date Inactivated Comments 07/16/2022 2:18 PM 07/16/2022 3:34 PM No attempts to restore cardiac function following arrest. Intubation to prevent or reverse respiratory instability may be performed. Question Answer Comments Code status determined by: Discussion with patie nt/ legal decision maker * No CPR- Pre-arrest intubation OK Date Activated Date Inactivated Comments 07/16/2022 8:38 AM 07/16/2022 11:47 AM Question Answer Comments Code status determined by: Discussion with patie nt/ legal decision maker * No CPR- Pre-arrest intubation OK Date Activated Date Inactivated Comments 07/15/2022 3:23 PM 07/16/2022 8:38 AM No attempts to restore cardiac function following arrest. Intubation to prevent or reverse respiratory instability may be performed. Question Answer Comments Code status determined by: Discussion with patie nt/ legal decision maker Healthcare Agents on File Name Relationship Healthcare Agent Relationship Communication Maggie Gallegos Daughter Health Care Agent Conner Gallegos Grandchild First Alternate Health Care Agent [email or web address] Care Teams Senior Recruitment Consultant Relationship Specialty Start Date End Date Darlene Mendoza MD [facility] [place] [address] [place] [address] PCP - General Family Medicine 07/19/22 Zahira Feldman MD [address] [place] [address] Ophthalmology 10/13/17 [facility], [address] [id number] 07/17/22 [facility] 07/15/22
--- OUTSIDE RECORDS SUMMARY | 2024-07-03 20:50 | XMS_ITS | Data Portability ---
Author Organization [facility], [facility] Address [address] [place] [address] Care Team Providers Care Safety Council Director Name Role Phone YOBANI GAMEZ Primary Care Provider Assessment No assessment recorded. Plan of Treatment Reminders Order Date Submit Date Provider Last Modified By Organization Details Last Modified Time Details Appointments None recorded. Lab urinalysis , dipstick 2023 024 [email or web address] [facility], [address] [place], [address], 4 15:42:13 urinalysis , dipstick 2022 023 [facility], [address], [address], [place], [address], 3 14:52:30 urinalysis , dipstick 2021 022 [email or web address] 9 [facility], [address], [address], [place], [address], 2 15:00:59 Referral None recorded. Procedures bladder scan (PROC) 2022 023 [facility], [address], [address], [place], [address], 14:52:32 Surgeries None recorded. Imaging None recorded. Medication Orders None recorded. Patient TargetsNo targets recorded. Patient Instructions Encounter Date Encounter Id Patient Instructions Last Modified By Organization Details Last Modified Time 10/30/2021 [id number] will restart on gemtesa. plan recheck in 3 months. [email or web address] Not available 10/30/2021 15:08:56 01/29/2022 [id number] will continue on gemtesa samples. rtc 3 months. [email or web address] Not available 01/29/2022 12:05:53 10/17/2022 [id number] willt ry startin g her on oxybutynin ER 10mg daily and plan recheck in 2 months for SE's and effectiveness. rx sent on paperwork for the [place] facility [email or web address] Not available 10/17/2022 11:10:27 01/28/2023 [id number] will set her up for UDS in [place]. [email or web address] Not available 01/28/2023 14:52:27 Reason for Referral None Reported. Results Created Date Observation Date Name Description Value Unit Range Abnormal Flag Note LastModifiedBy Organization Detail LastModifiedTime 10/31/19 22 10/30/2021 urina lysis , dipst ick pH-Status 7.0 Not Available [address] [facility], [place], [address], 10/30/2021 15:00:30 10/31/19 22 10/30/2021 urina lysis , dipst ick Leuko-Status Small Not Available [address], [place], [address], 10/30/2021 15:00:30 01/29/20 23 01/28/2023 bladd er scan (PROC ) Volume (in mL) 0ml Not Available [address], [place], [address], 01/28/2023 14:44:33 01/29/20 23 01/28/2023 urina lysis , dipst ick pH-Status 7.0 Not Available [facility] [address], [place], [address], 01/28/2023 14:44:31 01/29/20 23 01/28/2023 urina lysis , dipst ick Leuko-Status Trace Not Available [facility] [address], [place], [address], 01/28/2023 14:44:31 03/26/19 24 03/26/2023 urina lysis , dipst ick Color-Status Yellow Not Available [facility] [address], [place], [address], 03/26/2023 15:41:09 03/26/19 24 03/26/2023 urina lysis , dipst ick Clarity-Stat us Clear Not Available [facility] [address], [place], [address], 03/26/2023 15:41:09 03/26/19 24 03/26/2023 urina lysis , dipst ick Glucose-Stat us Negati ve Not Available [facility] [address], [place], [address], 03/26/2023 15:41:09 03/26/19 24 03/26/2023 urina lysis , dipst ick Bilirubin-St atus Negati ve Not Available [facility] [address], [place], [address], 03/26/2023 15:41:09 03/26/19 24 03/26/2023 urina lysis , dipst ick Ketones-Stat us Negati ve Not Available [facility] [address], [place], [address], 03/26/2023 15:41:09 03/26/19 24 03/26/2023 urina lysis , dipst ick Sp San [place]-Stat us 1.020 Not Available [facility] [address], [place], [address], 03/26/2023 15:41:09 03/26/19 24 03/26/2023 urina lysis , dipst ick pH-Status 7.0 Not Available [facility] [address], [place], [address], 03/26/2023 15:41:09 03/26/19 24 03/26/2023 urina lysis , dipst ick Urobilinogen -Status 0.2 Not Available [facility] [address], [place], [address], 03/26/2023 15:41:09 03/26/19 24 03/26/2023 urina lysis , dipst ick Nitrates-Sta tus negati ve Not Available [facility] [address], [place], [address], 03/26/2023 15:41:09 03/26/19 24 03/26/2023 urina lysis , dipst ick Blood-Status Trace Not Available [facility] [address], [place], [address], 03/26/2023 15:41:09 03/26/19 24 03/26/2023 urina lysis , dipst ick Leuko-Status Negati ve Not Available [facility] [address], [place], [address], 03/26/2023 15:41:09 03/26/19 24 03/26/2023 urina lysis , dipst ick Specimen Type Voided Not Available [facility] [address], [place], [address], 03/26/2023 15:41:09 11/01/19 22 10/30/2021 bladd er [...] Organization Details Recorded Time Overactive urinary bladder 676916432 Active 022 Favio Montalvo MD [address] [place] [address],[address] [place] [address], [address], [facility] 12:03:28 Problem Notes None recorded. Procedures Surgical History Date Name Laterality Status Provider Name and Address Organization Details Recorded Time 03/26/19 24 Urodynamic Studies completed Giovanna Bolivar [facility] 03/26/2023 15:42:26 01/29/20 23 Bladder Scan completed Mario Renee [facility] 01/28/2023 14:44:23 10/18/19 23 Bladder Scan completed Lisa Bui [facility] 10/17/2022 10:45:47 01/30/20 22 Bladder Scan completed Favio Montalvo MD [address] [place] [address],[address], [place], [address], [facility] 01/29/2022 11:58:31 10/31/19 22 Bladder Scan completed Favio Montalvo MD [address] [place] [address],[address], [place], [address], [facility] 10/30/2021 15:00:24 08/22/19 22 Bladder Scan completed Favio Montalvo MD [address] [place] [address],[address], [address], [facility] 08/21/2021 14:33:40 07/06/19 22 Bladder Scan completed Kristi Lloyd [facility] 07/05/2021 12:34:16 Total Hysterectomy completed Kristi Lloyd [facility] 07/05/2021 12:34:29 Cataract Surgery completed Kristi Gabino [facility] 07/05/2021 12:34:36 Orthopedic Surgery completed Kristi Gaspareau [facility] 07/05/2021 12:34:45 Imaging Results [...] Name and Address Organization Details Recorded Time 903568 amlodipin e medicatio n Not available Not available Not available 03/26/2023 20210 RxNorm Not Available Not Available Not Available 758587 azithromy lalo medicatio n Not available Not available Not available 03/26/2023 49527 RxNorm Not Available Not Available Not Available 579903 furosemid e medicatio n Not available Not available Not available 03/26/2023 4603 RxNorm Not Available Not Available Not Available 236623 insulin detemir medicatio n Not available Not available Not available 03/26/2023 34391 5 RxNorm Not Available Not Available Not Available 572679 metformin medicatio n Not available Not available Not available 03/26/2023 6809 RxNorm Not Available Not Available Not Available 052776 metoprolo l Not available Not available Not available Not available 03/26/2023 6918 RxNorm Not Available Not Available Not Available 559534 naproxen medicatio n Not available Not available Not available 03/26/2023 7258 RxNorm Not Available Not Available Not Available 987001 sitaglipt in medicatio n Not available Not available Not available 03/26/2023 93929 1 RxNorm Not Available Not Available Not Available 964250 exenatide medicatio n Not available Not available Not available 03/26/2023 20912 RxNorm Not Available Not Available Not Available 458352 levofloxa lalo medicatio n Not available Not available Not available 03/26/2023 41948 RxNorm Not Available Not Available Not Available 057030 clopidogr el medicatio n Not available Not available Not available 03/26/2023 92961 RxNorm Not Available Not Available Not Available 395363 losartan medicatio n Not available Not available Not available 03/26/2023 09974 RxNorm Not Available Not Available Not Available 224420 Product containin g penicilli n (product) medicatio n Not available Not available Not available 03/26/2023 16859 8001 SNOMED Not Available Not Available Not Available 839792 lisinopri l medicatio n Not available Not available Not available 03/26/2023 52058 RxNorm Not Available Not Available Not Available 468836 pioglitaz one medicatio n Not available Not available Not available 03/26/2023 79595 RxNorm Not Available Not Available Not Available 613174 simvastat in medicatio n Not available Not available Not available 03/26/2023 86887 RxNorm Not Available Not Available Not Available [...] Available pen needle, diabetic 31 gauge x 5/16 USE 1 ONCE DAILY active Not Available [...] Updated DateTime 10/30/2021 172.72 cm 33.5 kg/m2 23541.32 g Favio Montalvo MD [address] [place], [place] [address] [place] [address] 10/30/2021 14:59:44 Date Recorded Body height Body mass index (BMI) Body weight Provider Name and Address Organization Details Last Updated DateTime 01/29/2022 172.72 cm 32.2 kg/m2 55916.58 g Favio Montalvo MD [address] [place] [address] [place] [address] 01/29/2022 11:57:56 Date Recorded Body height Body mass index (BMI) Body weight Provider Name and Address Organization Details Last Updated DateTime 10/17/2022 172.72 cm 32.2 kg/m2 72168.58 g Lisa Bui [facility] 10/17/2022 10:45:30 Date Recorded Body height Body mass index (BMI) Body weight Provider Name and Address Organization Details Last Updated DateTime 01/28/2023 172.72 cm 32.2 kg/m2 83969.58 g Mario Renee [facility] 01/28/2023 14:43:47 Social History Question Answer Notes LastModified by Organizat ion Details LastModified Time Tobacco Smoking Status Former Smoker Favio Montalvo MD [address] [place] [address],[address], [address], [facility] 07/05/2021 12:28:26 What Is Your Level Of Alcohol Consumption? Occasional [email or web address] Information not available 08/21/2021 What Is Your Level Of Caffeine Consumption? Occasional [email or web address] Information not available 08/21/2021 When Did You Quit Smoking? 16+yearsmanju rodriguez [email or web address] Information not available 07/05/2021 What Was The Date Of Your Most Recent Tobacco Screening? 07/05/2021 [email or web address] Information not available 07/05/2021 Has Tobacco Cessation Counseling Been Provided? No [email or web address] Information not available 07/05/2021 Do You Or Have You Ever Used Any Other Forms Of Tobacco Or Nicotine? No [email or web address] Information not available 07/05/2021 Sex: Unknown Functional Status None recorded. Mental Status None recorded. Family History Relationship Description Onset Age of this Age Resolved Age Notes LastModified by Organization Details LastModified Time Sister Family history of breast cancer [email or web address] Not available 2021 12:36:10 Notes:x4 Medical History Condition Response Other N High Blood Pressure Y Kidney Stones N Lung Disease N Depression N GERD/Acid Reflux N Sexually Transmitted Infection N Cancer Y High Cholesterol Y Diabetes N Bleeding Disorder N Heart Disease N Gynecological History Statement/Question Response Sexually Active? N Obstetrics History GPAL:G 1 P 0 0 0 0 Immunizations Vaccine Type Date Status Note Provider Nam e and Address Organization Details Recorded Time Influenza, high-dose, trivalent, PF 6 completed Favio Montalvo MD [address] [place] [address],[address], [address], [facility] 07/05/2021 12:25:26 Influenza, split virus, trivalent, preservative 4 completed Favio Montalvo MD [address] [place] [address],[address], [address], [facility] 07/05/2021 12:25:26 zoster recombinant 9 completed Favio Montalvo MD [address] [place] [address],[address], [place], [address], [facility] 07/05/2021 12:25:27 influenza, unspecified formulation 9 completed Favio Montalvo MD [address] [place] [address],[address], [place], [address], [facility] 07/05/2021 12:25:27 zoster recombinant 0 completed Favio Montalvo MD [address] [place] [address],[address], [place], [address], [facility] 07/05/2021 12:25:27 Influenza, split virus, trivalent, preservative 4 completed Favio Montalvo MD [address] [place] [address],[address], [place], [address], [facility] 07/05/2021 12:25:27 Influenza, recombinant, quadrivalent, PF 9 completed Favio Montalvo MD [address] [place] [address],[address], [place], [address], [facility] 07/05/2021 12:25:27 COVID-19, mRNA, LNP-S, PF, 30 mcg/0.3 mL dose 1 completed Favio Montalvo MD [address] [place] [address],[facility] [address], [address], [facility] 07/05/2021 12:25:27 pneumococcal polysaccharide PPV23 2 completed Favio Montalvo MD [address] [place] [address],[address], [place], [address], [facility] 07/05/2021 12:25:27 Td (adult), 2 Lf tetanus toxoid, preservative free, adsorbed 4 completed Favio Montalvo MD [address] [place] [address],[address], [place], [address], [facility] 07/05/2021 12:25:27 Influenza, high-dose, trivalent, PF 5 completed Favio Montalvo MD [address] [place] [address],[address], [place], [address], [facility] 07/05/2021 12:25:27 pneumococcal polysaccharide PPV23 7 completed Favio Montalvo MD [address] [place] [address],[address], [place], [address], [facility] 07/05/2021 12:25:27 Pneumococcal conjugate PCV 13 5 completed Favio Montalvo MD [address] [place] [address],[address], [place], [address], [facility] 07/05/2021 12:25:27 Influenza, split virus, quadrivalent, PF 0 completed Favio Montalvo MD [address] [place] [address],[facility] [address], [place], [address], [facility] 07/05/2021 12:25:27 Influenza, adjuvanted, trivalent, PF 8 completed Favio Montalvo MD [address] [place] [address],[facility] [address], [place], [address], [facility] 07/05/2021 12:25:27 Influenza, split virus, trivalent, preservative 2 completed Favio Montalvo MD [address] [place] [address],[address], [place], [address], [facility] 07/05/2021 12:25:27 Td (adult), 2 Lf tetanus toxoid, preservative free, adsorbed 8 completed Favio Montalvo MD [address] [place] [address],[facility] [address], [place], [address], [facility] 07/05/2021 12:25:27 Influenza, split virus, trivalent, preservative 3 completed Favio Montalvo MD [address] [place] [address],[address], [place], [address], [facility] 07/05/2021 12:25:27 pneumococcal polysaccharide PPV23 8 completed Favio Montalvo MD [address] [place] [address],[address], [place], [address], [facility] 07/05/2021 12:25:27 Influenza, adjuvanted, quadrivalent, PF 1 completed Favio Montalvo MD [address] [place] [address],[address], [address], [facility] 07/05/2021 12:25:27 Influenza, split virus, trivalent, preservative 1 completed Favio Montalvo MD [address] [place] [address],[address], [place], [address], [facility] 07/05/2021 12:25:27 COVID-19, mRNA, LNP-S, PF, 30 mcg/0.3 mL dose 1 completed Favio Montalvo MD [address] [place] [address],[address], [place], [address], [facility] 07/05/2021 12:25:27 Influenza, adjuvanted, trivalent, PF 7 completed Favio Montalvo MD [address] [place] [address],[address], [address], [facility] 07/05/2021 12:25:27 Hep A, adult 4 completed Favio Montalvo MD [address] [place] [address],[address], [place], [address], [facility] 07/05/2021 12:25:27 Td (adult), 5 Lf tetanus toxoid, preservative free, adsorbed 9 completed Favio Montalvo MD [address] [place] [address],[facility] [address], [address], [facility] 07/05/2021 12:25:27 Influenza, split virus, trivalent, preservative 3 completed Favio Montalvo MD [address] [place] [address],[address], [place], [address], [facility] 07/05/2021 12:25:27 Td (adult), 2 Lf tetanus toxoid, preservative free, adsorbed 5 completed Favio Montalvo MD [address] [place] [address],[address], [address], [facility] 07/05/2021 12:25:27 Influenza, split virus, trivalent, preservative 0 completed Favio Montalvo MD [address] [place] [address],[address], [place], [address], [facility] 07/05/2021 12:25:27 COVID-19, mRNA, LNP-S, PF, 30 mcg/0.3 mL dose 1 completed Favio Montalvo MD [address], [place], [address], [facility] 07/05/2021 12:25:27 COVID-19, mRNA, LNP-S, bivalent, PF, 30 mcg/0.3 mL dose 2 completed [facility] 12/06/2022 14:16:47 Past Encounters Encounter ID Performer Location Encounter Start Date Encounter Closed Date Diagnosis/Indication Diagnosis SNOMED-CT Code Diagnosis ICD10 Code Diagnosis Note [id number] Favio Montalvo MD _[address] [address] 07/05/2021 12:04:29 07/09/2021 13:18:18 Incontinence 95959054 R32 Urge incon tinence of urine 84405449 N39.41 [id number] Favio Montalvo MD [facility] [address] [place] [address] 08/21/2021 14:17:28 08/24/2021 16:43:35 Incontinence 65849359 R32 Increased frequency of urination 867267074 R35.0 [id number] Favio Montalvo MD [facility] [address] [place] [address] 10/30/2021 14:41:21 11/02/2021 12:36:58 Incontinence 09255675 R32 Overactive urinary bladder 287588260 N32.81 [id number] Favio Montalvo MD [address] [address] 01/29/2022 11:43:59 02/04/2022 14:09:05 Overactive urinary bladder 006154659 N32.81 [id number] Favio Montalvo MD [facility] [address] [place] [address],[address] [place] [address] 10/17/2022 10:33:10 10/18/2022 16:52:40 Overactive urinary bladder 789081941 N32.81 [id number] Mario Renee [facility] [address] [facility] [place] [address] 01/28/2023 14:27:53 02/03/2023 13:20:07 Overactive urinary bladder 732350955 N32.81 [id number] Giovanna Bolivar [facility] [address] [place] [address] 03/26/2023 13:12:53 03/28/2023 11:30:16 Overactive urinary bladder 334047233 N32.81 Health Concerns Section Related Observation LastModified by Organization Detai ls LastModified Time None Recorded Concern Status LastModified by Organization Details LastModified Time None Recorded Advance Directives Directive None Recorded Payers Encounter Date Sequence Insurance Name Policy Number Policy Butts Covered Member ID Butts Member ID Guarantor Name 10/30/2021 1 [place] [id number] Alyx Wood Torsten [id number] Alyx Israel Torsten 01/29/2022 1 [place] [id number] Alyx M Torsten [id number] Alyx Israel Torsten 10/17/2022 1 [place] [id number] Alyx Israel Torsten [id number] Alyx Sarmiento 01/28/2023 1 [place] [id number] Alyx Israel Torsten [id number] Alyx Israel Torsten 03/26/2023 1 [place] [id number] Alyx Sarmiento [id number] Alyx Sarmiento Notes Date Note Type Note Provider Name and Address Organization Details Recorded Time 10/30/2021 text/html follow up gemtesa. off med for two weeks but freq/urgency came back. UA bland and PVR 295ml today. Favio Montalvo MD [address] [facility] [address], [place], [address], [facility] 10/30/2021 15:09:16 01/29/2022 text/html taking gemtesa and working well, out of samples. PVR 19ml today. Favio Montalvo MD [address] [facility] [address] [facility],[address], [place], [address], [facility] 01/29/2022 12:06:07 10/17/2022 text/html follow up OAB. was on gemtesa which worked and now having more accidents. PVR 0ml today. now living a assisted care who manages meds etc. Favio Montalvo MD [address] [facility] [address], [place], [address], [facility] 10/17/2022 11:10:30 01/28/2023 text/html follow up incontinence. tried gemtesa and now oxybutynin ER 10mg and neither worked. Mario sheth [facility] 01/28/2023 14:52:49 03/26/2023 text/html 88 YO F here for UDS testing- pt of TF Giovanna sheth [facility] 03/26/2023 15:44:35 OBGyn Episode No OBEpisode recorded.
[2024-07-03 21:17] LABS: PCR FLU A Negative PCR FLU A (Negative); PCR FLU B Negative PCR FLU B (Negative); PCR RSV POSITIVE PCR RSV (Negative); SARS PCR* Negative SARS-CoV-2 (Negative)
== END 2024-07-03 21:31 | disposition home or self-care (01) ==
PROVIDERS: Emergency Provider Internal Medicine
DX: J06.9 Acute upper respiratory infection, unspecified (principal); B97.4 Respiratory syncytial virus as the cause of diseases classified elsewhere; R05.9 Cough, unspecified; G30.9 Alzheimer's disease, unspecified; F02.80 Dementia in other diseases classified elsewhere, unspecified severity, without behavioral disturbance, psychotic disturbance, mood disturbance, and anxiety
CPT/HCPCS: 71046; 87631; 99283

== ENCOUNTER 2024-07-10 16:34 | Inpatient (IN) | payer MEDICARE, SELFPAY ==
[2024-07-10] VITALS (24 sets, daily range): BP systolic 158–181; BP diastolic 109–139; PULSE 78–164; RESP 8–47; TEMP 36.4; O2SAT 88–97; BMI 34.3
--- OUTSIDE RECORDS SUMMARY | 2024-07-10 16:36 | XMS_ITS | Encounter Summary ---
Author Organization [facility] Address [address] [facility] [place] [address] Care Team Providers Care Beer Merchant Name Role Phone Darien Sanchez Primary Care Provider [phone] Zahira Feldman MD Unavailable + Yumiko Sim MD Unavailable Kathy Bueno DO Unavailable [phone] Dixon Panchal MD Primary Care Provider Dixon Panchal MD Unavailable [facility] Unavailable Albertina Hartman APRN [facility] Unavailable [phone] Darlene Mendoza MD Primary Care Provider [phone] Eleanor Humphreys PA-C Unavailable Encounter Details Date Type Department Care Team (Late st Contact Info) Description 07/26/2019 [facility] Only [facility] Specialty Care [address] [place] [address] Billie Martinez MD [address] [facility] [address] [place] [address] Paroxysmal atrial fibrillation (H) (Primary [...] on file Legal Sex Female 3:23 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[employer] Gender Identity Not on file Sexual Orientation [...] abnormality documented in this encounter Care Teams Beer Merchant Relationship Specialty Start Date End Date Darien Sanchez [address] [address] PCP - General Family Practice 03/31/17 02/01/22 Dixon Panchal MD [address] [place] [address] PCP - General Internal Medicine 02/02/22 07/18/22 Darlene Mendoza MD [facility] [address] [place] [address] PCP - General Family Medicine 07/19/22 Zahira Feldman MD [address] [place] [address] MD Ophthalmology 10/13/17 Yumiko Sim MD [address] [place] [address] Assigned PCP 07/08/19 02/08/22 Kathy Bueno DO [address] [place] [address] Assigned Heart and Vascular Provider 12/31/19 04/07/21 Dixon Panchal MD [address] [place] [address] Assigned PCP 02/09/22 05/29/24 [facility] [id number] [place] [phone] 07/17/22 Albertina Hartman APRN DIALYSIS EQUIPMENT TECHNICIAN [address] [place] [address] Nurse Practitioner Geriatric Medicine 07/17/22 08/25/22 Eleanor Humphreys PA-C [facility] [address] [address] Assigned Neuroscience Provider 08/31/22 02/29/24 Krysta Bhatti- [facility] [address] 07/15/22 documented as of this encounter
--- OUTSIDE RECORDS SUMMARY | 2024-07-10 16:37 | XMS_ITS | CCD ---
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 Care Blood Bank Worker Name Role Phone Teresa Vivas Primary Care Provider Un available Unavailable Chronic Care Management Unavaila ble Summary Purpose DataExchange Insurance Providers Payer name Policy type / Coverage type Covered republican ID Effective Begin Date Effective End Date [place] [id number] Unknown Un known Family history Mother Diagnosis Age At Onset Stroke Unknown Social History Social History Element Codes Description Effec tive Dates Marital status Unknown 04/13/2024 Marital status Unknown 04/13/2024 Living arrangements Unknown Assisted Living 04/[address]: 8859138 Former smoker 04/[address]: 2650382 Former smoker 04/[address]: 243229853 No Alcohol Consum ption 04/13/[address]: 624220 Currently drin ks alcohol 04/13/2024 Sexually Active? [...] No Inactive Date A ctive SIMVASTATIN RxNorm: 95210 04/13/2024 No Inactive D ate Active Penicillin Unknown 04/13/2024 No Inactive Date A ctive CLOPIDOGREL Unknown 03/23/2024 No Inactive Date Active naproxen RxNorm: 7258 04/13/2024 No Inactive Date Active levofloxacin RxNorm: 14937 03/23/2024 No Inactive Date Active Levemir Unknown 03/23/2024 No Inactive Date Ac tive metformin RxNorm: 954130 04/13/2024 No Inactive Da te Active ESTROGENS Unknown 03/23/2024 No Inactive Date Ac tive Atenolol RxNorm: 1202 04/13/2024 No Inactive Date Active metoprolol succinate RxNorm: 203968 03/23/2024 No Inactive Date Active Januvia RxNorm: 684900 04/13/2024 No Inactive Da te Active furosemide RxNorm: 4603 03/23/2024 No Inactive Balaji e Active azithromycin RxNorm: 31805 04/13/2024 No Inactive Date Active losartan RxNorm: 491362 04/13/2024 No Inactive Da te Active NSAIDS Unknown 03/23/2024 No Inactive Date Ac tive Amlodipine RxNorm: 741342 04/13/2024 No Inactive D ate Active LISINOPRIL RxNorm: 08561 04/13/2024 No Inactive Da te Active PIOGLITAZONE DERIVATIVES Unknown 04/13/2024 No I nactive Date Active Problems Condition Codes Effective Dates Condition St atus ACP (advance care planning) SNOMED CT: 3 41384226 ICD-10: Z71.89 ICD-9: V65.49 06/01/2024 Active Acute cystitis without hematuria SNOMED CT: 86443135 ICD-10: N30.00 ICD-9: 595.0 06/01/2024 Active Adult general medical exam SNOMED CT: 30 4482761 ICD-10: Z00.00 ICD-9: V70.9 06/01/2024 Active Atherosclerosis of coronary artery of [place] heart without angina pectoris, unspecified vessel or [...] ICD-9: 311 06/01/[address]: 215121335 ICD-10: R54 ICD-9: 797 06/01/2024 Active Iron [...] 2 diabetes mellitus without complication, unspecified whether nursing home insulin use ICD-10: E11.9 ICD-9: 250.00 06/01/2024 [...] fracture of L1 vertebra, sequela SNOMED CT: 770308042 ICD-10: S32.010S ICD-9: 905.1 04/13/2024 Active Dementia in other diseases classified elsewhere, unspecified severity, without behavioral disturbance, psychotic disturbance, mood disturbance, and anxiety ICD-10: F02.80 04/13/[address]: 842658466 ICD-10: K57.90 ICD-9: 562.10 04/13/2024 Active History of breast cancer SNOMED CT: 4290 54285 ICD-10: Z85.3 ICD-9: V10.3 04/13/2024 Active History of melanoma SNOMED CT: 268416155 ICD-10: Z85.820 ICD-9: V10.82 04/13/2024 Active History of TIA (transient ischemic attack) SNOMED CT: 794320117 ICD-10: Z86.73 ICD-9: V12.54 04/13/2024 Active Hyperlipidemia, unspecified hyperlipidemia type SNOMED CT: 46790053 ICD-10: E78.5 ICD-9: 272.4 04/13/2024 Active Statin intolerance SNOMED CT: 194829415 ICD-10: Z78.9 ICD-9: 995.27 04/13/2024 Active Urinary incontinence, unspecified type SNOMED CT: 411535498 ICD-10: R32 ICD-9: 788.30 04/13/2024 Active Vascular dementia, unspecifi ed severity, without behavioral disturbance, psychotic disturbance, mood disturbance, and anxiety ICD-10: F01.50 04/13/2024 Active Medications Medication Codes Instructions Start Date Stop Date Status Fill Instructions Alejandra Protect (zinc oxide) 12 % topical cream RxNorm: 711824 APPLY TO RIGHT BUTTOCK 2 TIMES DAILY;APPLY TO RIGHT BUTTOCK NEEDED WITH SOILING 06/12/19 25 026 Active albuterol sulfate HFA 90 mcg/actuation aerosol inhaler RxNorm: 2474842 Inhale 2 Puff(s) Inhalation Q4H every four hours as needed 06/01/19 25 No Stop Date Active Alejandra Protect (zinc oxide) 12 % topical cream RxNorm: 362595 cream Topical apply to right buttocks BID and PRN with soiling 06/01/19 25 025 Inactive Lantus Solostar U-100 Insulin 100 unit/mL (3 mL) subcutaneous pen RxNorm: 288668 Unit(s) Subcutaneous prime en with 2 units, then inject 8 units SQ QD at bedtime 05/18/19 25 026 Active potassium chloride ER 10 mEq tablet,extended release RxNorm: 171656 Take 1 Tablet(s) Oral QD 04/12/19 25 No Stop Date Active fluoxetine 10 mg capsule RxNorm: 292998 Take 1 Capsule(s) Oral QD 04/12/19 25 No Stop Date Active hydrochlorothiazide 25 mg tablet RxNorm: 130393 Take 1 Tablet(s) Oral QD 04/12/19 25 No Stop Date Active Oyster Shell Calcium 500 mg (as calcium carbonate 1,250 mg) tablet RxNorm: 472831 Take 1 Tablet(s) Oral QD 04/12/19 25 No Stop Date Active Co Q-10 200 mg capsule RxNorm: 886159 Capsule(s) Oral take 1 cap po daily with 100mg tab to =300mg daily 04/12/19 25 No Stop Date Active Co Q-10 100 mg capsule RxNorm: 407844 Capsule(s) Oral take 1 cap daily along with 200mg tab to =300mg daily 04/12/19 25 No Stop Date Active quetiapine 25 mg tablet RxNorm: 057173 Take 1 Tablet(s) Oral QHS every night at bedtime 04/12/19 25 No Stop Date Active Vitamin D3 25 mcg (1,000 unit) tablet RxNorm: 677138 Take 1 Tablet(s) Oral QD 04/12/19 25 No Stop Date Active acetaminophen 500 mg tablet RxNorm: 724061 Take 2 Tablet(s) Oral TID as needed 04/12/19 25 No Stop Date Active donepezil 10 mg tablet RxNorm: 892530 Take 1 Tablet(s) Oral QHS every night at bedtime 04/12/19 25 No Stop Date Active cyanocobalamin (vit B-12) 500 mcg tablet RxNorm: 174756 Take 1 Tablet(s) Oral QD 04/12/19 25 No Stop Date Active oxybutynin chloride ER 10 mg tablet,extended release 24 hr RxNorm: 670259 Take 1 Tablet(s) Oral QPM every evening 04/12/19 25 No Stop Date Active irbesartan 150 mg tablet RxNorm: 736131 Take 1 Tablet(s) Oral BID 04/12/19 25 No Stop Date Active Trelegy Ellipta 200 mcg-62.5 mcg-25 mcg powder for inhalation RxNorm: 3129818 Inhale 1 Puff(s) Inhalation every 24 hours 04/12/19 25 No Stop Date Active Vitron-C 65 mg iron-125 mg tablet,delayed release RxNorm: 2545216 Take 1 Tablet(s) Oral QOD every other day 04/12/19 25 No Stop Date Active Eliquis 5 mg tablet RxNorm: 3957081 Take 1 Tablet(s) Oral BID 04/12/19 25 025 Inactive Lantus Solostar U-100 Insulin 100 unit/mL (3 mL) subcutaneous pen RxNorm: 349481 Unit(s) Subcutaneous prime en with 2 units, [...] data Instructions Comment Date Alyx resides at [facility] since about 2021. Previously lived independently in [place]. . Has one daughter Maggie who is involved in healthcare. PMH: History of breast cancer and melanoma, mixed dementia, depression, CAD, HLD, history of CVA/TIA, compression fx of L1 vertebrae, urinary incontinence, hearing loss, osteopeniaPrimary contact: Maggie Gallegos (Daughter)Code Status: DNR/SelectLab Schedule: Mar/SepSpecialists: Lisa Neurology (Q6M), Cardiology [facility] (MD Echo) 06/11/2024
--- OUTSIDE RECORDS SUMMARY | 2024-07-10 16:37 | XMS_ITS | CCD ---
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 Care Communication Coordinator Name Role Phone Teresa Vivas Primary Care Provider Un available Unavailable Chronic Care Management Unavaila ble Summary Purpose DataExchange Insurance Providers Payer name Policy type / Coverage type Covered libertarian ID Effective Begin Date Effective End Date [place] H[place] Medicare Risk [id number] Unknown Un known Family history Mother Diagnosis Age At Onset Stroke Unknown Social History Social History Element Codes Description Effec tive Dates Marital status Unknown 04/13/2024 Marital status Unknown 04/13/2024 Living arrangements Unknown Assisted Living 04/[address]: 3890589 Former smoker 04/[address]: 8746597 Former smoker 04/[address]: 024833111 No Alcohol Consum ption 04/13/[address]: 396326 Currently drin ks alcohol 04/13/2024 Sexually Active? [...] No Inactive Date A ctive SIMVASTATIN RxNorm: 99217 04/13/2024 No Inactive D ate Active Penicillin Unknown 04/13/2024 No Inactive Date A ctive CLOPIDOGREL Unknown 03/23/2024 No Inactive Date Active naproxen RxNorm: 7258 04/13/2024 No Inactive Date Active levofloxacin RxNorm: 06524 03/23/2024 No Inactive Date Active Levemir Unknown 03/23/2024 No Inactive Date Ac tive metformin RxNorm: 908647 04/13/2024 No Inactive Da te Active ESTROGENS Unknown 03/23/2024 No Inactive Date Ac tive Atenolol RxNorm: 1202 04/13/2024 No Inactive Date Active metoprolol succinate RxNorm: 608784 03/23/2024 No Inactive Date Active Januvia RxNorm: 708878 04/13/2024 No Inactive Da te Active furosemide RxNorm: 4603 03/23/2024 No Inactive Balaji e Active azithromycin RxNorm: 77400 04/13/2024 No Inactive Date Active losartan RxNorm: 486324 04/13/2024 No Inactive Da te Active NSAIDS Unknown 03/23/2024 No Inactive Date Ac tive Amlodipine RxNorm: 485076 04/13/2024 No Inactive D ate Active LISINOPRIL RxNorm: 16183 04/13/2024 No Inactive Da te Active PIOGLITAZONE [...] mellitus without complication, unspecified whether long term acute care registered nurse insulin use ICD-10: E11.9 ICD-9: 250.00 06/29/2024 Active ACP (advance care planning) SNOMED CT: 3 87080805 ICD-10: Z71.89 ICD-9: V65.49 06/01/2024 Active Adult general medical exam SNOMED CT: 30 4831820 ICD-10: Z00.00 ICD-9: V70.9 06/01/2024 Active Atherosclerosis of coronary artery of [place] heart without angina pectoris, unspecified vessel or lesion type ICD-10: I25.10 ICD-9: 414.01 06/01/2024 Active Atrial fibrillation, unspecified type ICD-10: I48.91 ICD-9: 427.31 06/01/2024 Active 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 ICD-9: 311 06/01/[address]: 047408932 ICD-10: R54 ICD-9: 797 06/01/2024 Active Mixed [...] fracture of L1 vertebra, sequela SNOMED CT: 042366657 ICD-10: S32.010S ICD-9: 905.1 04/13/2024 Active Dementia in other diseases classified elsewhere, unspecified severity, without behavioral disturbance, psychotic disturbance, mood disturbance, and anxiety ICD-10: F02.80 04/13/[address]: 061793294 ICD-10: K57.90 ICD-9: 562.10 04/13/2024 Active History of breast cancer SNOMED CT: 4290 18072 ICD-10: Z85.3 ICD-9: V10.3 04/13/2024 Active History of melanoma SNOMED CT: 689580491 ICD-10: Z85.820 ICD-9: V10.82 04/13/2024 Active History of TIA (transient ischemic attack) SNOMED CT: 270761787 ICD-10: Z86.73 ICD-9: V12.54 04/13/2024 Active Hyperlipidemia, unspecified hyperlipidemia type SNOMED CT: 70027509 ICD-10: E78.5 ICD-9: 272.4 04/13/2024 Active Statin intolerance SNOMED CT: 000877742 ICD-10: Z78.9 ICD-9: 995.27 04/13/2024 Active Urinary incontinence, unspecified type SNOMED CT: 676971908 ICD-10: R32 ICD-9: 788.30 04/13/2024 Active Vascular dementia, unspecifi ed severity, without behavioral disturbance, psychotic disturbance, mood disturbance, and anxiety ICD-10: F01.50 04/13/2024 Active Medications Medication Codes Instructions Start Date Stop Date Status Fill Instructions Oyster Shell Calcium-500 500 mg (as carbonate 1,250 mg) tablet RxNorm: 650267 1 TABLET ORALLY DAILY FOR BONE HEALTH 07/09/19 026 Active PLEASE SEND REFILLS.PHARMA CY PLEASE PROFILE FOR FUTURE USE-[facility] Vitron-C 65 mg iron-125 mg tablet,delayed release RxNorm: 1075547 1 Tablet(s) Oral QOD every other day 07/09/19 25 026 Active PLEASE SEND REFILLS.PHARMA CY PLEASE PROFILE FOR FUTURE USE-[facility] Co Q-10 200 mg capsule RxNorm: 930170 1 CAPSULE ORALLY DAILY W/ 100MG CAP FOR A TOTAL DOSE OF 300MG (DX: SUPPLEMENT) 07/09/19 25 026 Active PLEASE SEND REFILLS.PHARMA CY PLEASE PROFILE FOR FUTURE USE-[facility] oxybutynin chloride ER 10 mg tablet,extended release 24 hr RxNorm: 838971 1 TAB ORALLY EVERY EVENING FOR BLADDER SPASMS 07/09/19 25 04/25/2 026 Active PLEASE SEND REFILLS.PHARMA CY PLEASE PROFILE FOR FUTURE USE-[facility] Trelegy Ellipta 200 mcg-62.5 mcg-25 mcg powder for inhalation RxNorm: 4734409 INHALE 1 PUFF INTO THE LUNGS EVERY 24 HOURS (DX: CHRONIC OBSTRUCTIVE PULMONARY DISEASE) 07/09/19 Active PLEASE SEND REFILLS.PHARMA CY PLEASE PROFILE FOR FUTURE USE-[facility] fluoxetine 10 mg capsule RxNorm: 544554 1 CAPSULE ORALLY DAILY (DX: DEPRESSION) (DX: ANXIETY) 07/09/19 25 Active PLEASE SEND REFILLS.PHARMA CY PLEASE PROFILE FOR FUTURE USE-[facility] cyanocobalamin (vit B-12) 500 mcg tablet RxNorm: 497657 1 TABLET ORALLY DAILY (DX: ANEMIA) 07/09/19 Active PLEASE SEND REFILLS.PHARMA CY PLEASE PROFILE FOR FUTURE USE-[facility] irbesartan 150 mg tablet RxNorm: 067766 1 TABLET ORALLY 2 TIMES DAILY (DX: HYPERTENSION) 07/09/19 Active PLEASE SEND REFILLS.PHARMA CY PLEASE PROFILE FOR FUTURE USE-[facility] cholecalciferol (vitamin D3) 25 mcg (1,000 unit) tablet RxNorm: 005442 1 TABLET ORALLY DAILY (DX: VITAMIN D DEFICIENCY) 07/09/19 Active PLEASE SEND REFILLS.PHARMA CY PLEASE PROFILE FOR FUTURE USE-[facility] quetiapine 25 mg tablet RxNorm: 830208 1 TABLET ORALLY AT BEDTIME (DX: ANXIETY) 07/09/19 Active PLEASE SEND REFILLS.PHARMA CY PLEASE PROFILE FOR FUTURE USE-[facility] hydrochlorothiazide 25 mg tablet RxNorm: 694801 1 TABLET ORALLY DAILY (DX: HYPERTENSION) 07/09/19 Active PLEASE SEND REFILLS.PHARMA CY PLEASE PROFILE FOR FUTURE USE-[facility] coenzyme Q10 100 mg capsule RxNorm: 844708 1 CAPSULE ORALLY DAILY W/ 200MG CAP FOR A TOTAL DOSE OF 300MG (DX: SUPPLEMENT) 07/09/19 Active PLEASE SEND REFILLS.PHARMA CY PLEASE PROFILE FOR FUTURE USE-[facility] donepezil 10 mg tablet RxNorm: 156667 1 TABLET ORALLY AT BEDTIME (DX: DEMENTIA) 07/09/19 25 Active PLEASE SEND REFILLS.PHARMA CY PLEASE PROFILE FOR FUTURE USE-[facility] Contour Next EZ Meter RxNorm: USE TO JENIFER T BLOOD GLUCOSE DAILY (DX: DIABETES TYPE 2) 07/09/19 25 Active PLEASE SEND REFILLS.PHARMA CY PLEASE PROFILE FOR FUTURE USE-[facility] alcohol swabs RxNorm: 018329 USE DIRECTED 07/09/19 25 Active PLEASE SEND REFILLS.PHARMA CY PLEASE PROFILE FOR FUTURE USE-[facility] Alejandra Protect (zinc oxide) 12 % topical cream RxNorm: 248507 APPLY TO RIGHT BUTTOCK 2 TIMES DAILY;APPLY TO RIGHT BUTTOCK NEEDED WITH SOILING 06/12/19 25 Active albuterol sulfate HFA 90 mcg/actuation aerosol inhaler RxNorm: 6800396 Inhale 2 Puff(s) Inhalation Q4H every four hours as needed 06/01/19 No Stop Date Active Alejandra Protect (zinc oxide) 12 % topical cream RxNorm: 095018 cream Topical apply to right buttocks BID and PRN with soiling 06/01/19 Inactive Lantus Solostar U-100 Insulin 100 unit/mL (3 mL) subcutaneous pen RxNorm: 257358 Unit(s) Subcutaneous prime en with 2 units, then inject 8 units SQ QD at bedtime 05/18/19 Active potassium chloride ER 10 mEq tablet,extended release RxNorm: 854254 Take 1 Tablet(s) Oral QD 04/12/19 No Stop Date Active fluoxetine 10 mg capsule RxNorm: 360073 Take 1 Capsule(s) Oral QD 04/12/19 25 025 Inactive hydrochlorothiazide 25 mg tablet RxNorm: 658528 Take 1 Tablet(s) Oral QD 04/12/19 25 025 Inactive Oyster Shell Calcium 500 mg (as calcium carbonate 1,250 mg) tablet RxNorm: 392678 Take 1 Tablet(s) Oral QD 04/12/19 25 025 Inactive Co Q-10 200 mg capsule RxNorm: 584537 Capsule(s) Oral take 1 cap po daily with 100mg tab to =300mg daily 04/12/19 025 Inactive Co Q-10 100 mg capsule RxNorm: 416969 Capsule(s) Oral take 1 cap daily along with 200mg tab to =300mg daily 04/12/19 025 Inactive quetiapine 25 mg tablet RxNorm: 858486 Take 1 Tablet(s) Oral QHS every night at bedtime 04/12/19 025 Inactive Vitamin D3 25 mcg (1,000 unit) tablet RxNorm: 916514 Take 1 Tablet(s) Oral QD 04/12/19 025 Inactive acetaminophen 500 mg tablet RxNorm: 104618 Take 2 Tablet(s) Oral TID as needed 04/12/19 No Stop Date Active donepezil 10 mg tablet RxNorm: 693838 Take 1 Tablet(s) Oral QHS every night at bedtime 04/12/19 025 Inactive cyanocobalamin (vit B-12) 500 mcg tablet RxNorm: 404828 Take 1 Tablet(s) Oral QD 04/12/19 025 Inactive oxybutynin chloride ER 10 mg tablet,extended release 24 hr RxNorm: 429824 Take 1 Tablet(s) Oral QPM every evening 04/12/19 025 Inactive irbesartan 150 mg tablet RxNorm: 495215 Take 1 Tablet(s) Oral BID 04/12/19 025 Inactive Trelegy Ellipta 200 mcg-62.5 mcg-25 mcg powder for inhalation RxNorm: 0626867 Inhale 1 Puff(s) Inhalation every 24 hours 04/12/19 025 Inactive Vitron-C 65 mg iron-125 mg tablet,delayed release RxNorm: 5175116 Take 1 Tablet(s) Oral QOD every other day 04/12/19 025 Inactive Eliquis 5 mg tablet RxNorm: 0876868 Take 1 Tablet(s) Oral BID 04/12/19 25 025 Inactive Lantus Solostar U-100 Insulin 100 unit/mL (3 mL) subcutaneous pen RxNorm: 570126 Unit(s) Subcutaneous prime en with 2 units, [...] data Instructions Comment Date Alyx resides at [facility] since about 2021. Previously lived independently in [place]. . Has one daughter Maggie who is involved in healthcare. PMH: History of breast cancer and melanoma, mixed dementia, depression, CAD, HLD, history of CVA/TIA, compression fx of L1 vertebrae, urinary incontinence, hearing loss, osteopeniaPrimary contact: Maggie Gallegos (Daughter)Code Status: DNR/SelectLab Schedule: Mar/SepSpecialists: [facility] (Q[facility]), Cardiology [facility] (MD Echo) 06/11/2024
--- OUTSIDE RECORDS SUMMARY | 2024-07-10 16:37 | XMS_ITS | Clinical Summary ---
Author Organization [facility] Address [address] [place] [address] Care Team Providers Care Meter Maker Name Role Phone Darien Sanchez MD Primary Care Provider [phone] Source Comments You are receiving this document [...] for each transition of care or referral. [facility] Active Allergy Reactions Criticality Noted Date [...] (10/30/2016): LW Modifier: R thalamus LW Onset: [id number] ; Lacunar Infarct Obesity 04/27/2010 Morbid obesity [...] 36.9 C (98.4 F) 04/16/2011 3:42 PM PERFUME COMPOUNDER Respiratory Rate 22 06/23/2012 8:49 PM CDT Oxygen Saturation 100% 03/10/2008 8:00 AM PERFUME COMPOUNDER Inhaled Oxygen Concentration - - Weight 130.2 [...] season) 2023 12/07/2020, 05/06/2020, 04/15/2020 Influenza Vaccine (Season Ended) 2024 03/09/2021, 11/02/2019, 11/20/2017, Additional history exists Pneumococcal Vaccine [...] this topic Medical Devices Implanted Type Area Rate Quoting Operator Device Identifier Shelf Expiration Date Model / Serial / Lot Scr Roberta Sftp 3.5/2.7hx16 - [id number] Implanted:Qty: 4 on 03/07/2008 at [facility] DEVICE Right: [employer] [id number] / / Scr Omero Sftp 2.7x16 - [id number] Implanted:Qty: 1 on 03/07/2008 at [facility] DEVICE Right: [employer] [id number] / / Plt Fib Dist Lk Rt 158mm 10h - [id number] Implanted:Qty: 1 on 03/07/2008 at [facility] DEVICE Right: [employer] [id number] / / Scr Lk 2.7x10mm - [id number] Implanted:Qty: 1 on 03/07/2008 at [facility] DEVICE Right: [employer] [id number] / / Scr Lk 2.7x12mm - [id number] Implanted:Qty: 1 on 03/07/2008 at [facility] DEVICE Right: [employer] [id number] / / Scr Lk 2.7x14mm - [id number] Implanted:Qty: 2 on 03/07/2008 at [facility] DEVICE Right: [employer] [id number] / / Scr Lk 2.7x16 - [id number] Implanted:Qty: 2 on 03/07/2008 at [facility] DEVICE Right: [employer] [id number] / / Procedures Procedure Name Priority Date/Time Associated Diagnosis Comments CREATININE / GFR Routine 04/03/2011 12:1 7 PM PERFUME COMPOUNDER Essential hypertension LIPID PANEL & DIRECT LDL (IF NEEDED) Routine 02/25/2011 12:01 PM PERFUME COMPOUNDER Type II or unspecified type diabetes mellitus without mention of complication, not stated as uncontrolled (HRC) HGB A1C Routine 02/25/2011 12:01 PM PERFUME COMPOUNDER Type II or unspecified type diabetes mellitus without mention of complication, not stated as uncontrolled (HRC) from Last 3 Months or Most Recently Relevant to Health Maintenance Results * Creatinine / GFR (04/03/2011 12:17 PM PERFUME COMPOUNDER) Creatinine Serum 0.9 0.4 - 1.3 mg/dL HP CONVERSION Est GFR Am >60 >60 mL/min/1.7 3m2 HP CONVERSION Est GFR Non-Afr Am >60 >60 mL/min/1.7 3m2 HP CONVERSION Comment: Normal>60, moderate decrease 30 - 59, severe decrease 15 - 29, renal failure <15 mL/min/1.73 m2 NOTE: Choose the eGFR result above appropriate for the race of the patient. 04/03/2011 12:1 7 PM PERFUME COMPOUNDER 04/03/2011 12:17 PM PERFUME COMPOUNDER Narrative HP CONVERSION - 04/03/2011 3:29 PM PERFUME COMPOUNDER Performed at [facility], [address] [place] [address] Jeffrey Duke MD LAB_1 Final Resul t Performing Organization Address [facility] de Phone Number HP CONVERSION * (ABNORMAL) Lipid Panel and Direct LDL(If Needed) (02/25/2011 12:01 PM PERFUME COMPOUNDER) Cholesterol 169 0 - 200 mg/dL HP CONVERSION Triglycerides 158(H) 0 - 149 mg/dL HP CONVERSION HDL Cholesterol 47 >39 mg/dL HP CONVERSION Cholesterol/HDL Ratio Screen 3.6 HP CONVERSION LDL Calculated 90 19 - 130 mg/dL HP CONVERSION Hours Fasting 12.0 HP CONVERSION 02/25/2011 12:0 1 PM PERFUME COMPOUNDER 02/25/2011 12:00 PM PERFUME COMPOUNDER Narrative HP CONVERSION - 02/25/2011 3:30 PM PERFUME COMPOUNDER Performed at [facility], [address] [place] [address] Transcriptions 04/19/2016 9:42 PM CSTNotes Recorded by Jeffrey Duke MD on 02/25/2011 at 5:08 PMWait for all results to be available to send a single lab letter explaining results. Jeffrey Duke MD LAB_1 Final Resul t Performing Organization Address [facility] de Phone Number HP CONVERSION * (ABNORMAL) Hgb A1c (02/25/2011 12:01 PM PERFUME COMPOUNDER) HGB A1C 7.3(H) 0.0 - 6.0 % HP CONVERSION 02/25/2011 12:0 1 PM PERFUME COMPOUNDER 02/25/2011 2:44 PM PERFUME COMPOUNDER us Jeffrey Duke MD LAB_1 Final Resul t Performing Organization Address [facility] de Phone Number HP CONVERSION from Last 3 Months or Most Recently Relevant to Health Maintenance Insurance [facility] MEDICARE ADVANTAGE Advance Directives Documents on File Type Date Recorded Patient Wafer Fab Operator Expl anation Advance Directive/Living Will/Durable Power of Attny on file/POLST PN * Full Code (Latest Code Status on File) Date Activated Date Inactivated Comments 03/07/2008 3:28 PM 03/10/2008 3:05 PM Care Teams Meter Maker Relationship Specialty Start Date End Date Darien Sanchez MD [address] [place] [address] PCP - General 02/07/12
--- OUTSIDE RECORDS SUMMARY | 2024-07-10 16:37 | XMS_ITS | CCD ---
Author Name Linda Vivas Address [address] [facility] [address] [place] [address] Phone Organization [facility] Phone Care Team Providers Care Information Technology Coordinator Name Role Phone Teresa Vivas Primary Care Provider Un available Unavailable Chronic Care Management Unavaila ble Summary Purpose DataExchange Insurance Providers Payer name Policy type / Coverage type Covered libertarian ID Effective Begin Date Effective End Date BCBS of [facility] Medicare Risk [id number] Unknown Un known Family history Mother Diagnosis Age At Onset Stroke Unknown Social History Social History Element Codes Description Effec tive Dates Marital status Unknown 04/13/2024 Marital status Unknown 04/13/2024 Living arrangements Unknown Assisted Living 04/[address]: 0657940 Former smoker 04/[address]: 4466110 Former smoker 04/[address]: 600371635 No Alcohol Consum ption 04/13/[address]: 848393 Currently drin ks alcohol 04/13/2024 Sexually Active? [...] No Inactive Date A ctive SIMVASTATIN RxNorm: 39015 04/13/2024 No Inactive D ate Active Penicillin Unknown 04/13/2024 No Inactive Date A ctive CLOPIDOGREL Unknown 03/23/2024 No Inactive Date Active naproxen RxNorm: 7258 04/13/2024 No Inactive Date Active levofloxacin RxNorm: 94673 03/23/2024 No Inactive Date Active Levemir Unknown 03/23/2024 No Inactive Date Ac tive metformin RxNorm: 090050 04/13/2024 No Inactive Da te Active ESTROGENS Unknown 03/23/2024 No Inactive Date Ac tive Atenolol RxNorm: 1202 04/13/2024 No Inactive Date Active metoprolol succinate RxNorm: 738130 03/23/2024 No Inactive Date Active Januvia RxNorm: 766258 04/13/2024 No Inactive Da te Active furosemide RxNorm: 4603 03/23/2024 No Inactive Balaji e Active azithromycin RxNorm: 57857 04/13/2024 No Inactive Date Active losartan RxNorm: 768236 04/13/2024 No Inactive Da te Active NSAIDS Unknown 03/23/2024 No Inactive Date Ac tive Amlodipine RxNorm: 037838 04/13/2024 No Inactive D ate Active LISINOPRIL RxNorm: 95685 04/13/2024 No Inactive Da te Active PIOGLITAZONE [...] 2 diabetes mellitus without complication, unspecified whether vacuum caster insulin use ICD-10: E11.9 ICD-9: 250.00 06/29/2024 Active ACP (advance care planning) SNOMED CT: 3 56291064 ICD-10: Z71.89 ICD-9: V65.49 06/01/2024 Active Adult general medical exam SNOMED CT: 30 9501585 ICD-10: Z00.00 ICD-9: V70.9 06/01/2024 Active Atherosclerosis of coronary artery of [place] heart without angina pectoris, unspecified vessel or lesion type ICD-10: I25.10 ICD-9: 414.01 06/01/2024 Active Atrial fibrillation, unspecified type ICD-10: I48.91 ICD-9: 427.31 06/01/2024 Active 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 ICD-9: 311 06/01/[address]: 516372291 ICD-10: R54 ICD-9: 797 06/01/2024 Active Mixed [...] fracture of L1 vertebra, sequela SNOMED CT: 338678376 ICD-10: S32.010S ICD-9: 905.1 04/13/2024 Active Dementia in other diseases classified elsewhere, unspecified severity, without behavioral disturbance, psychotic disturbance, mood disturbance, and anxiety ICD-10: F02.80 04/13/[address]: 630612671 ICD-10: K57.90 ICD-9: 562.10 04/13/2024 Active History of breast cancer SNOMED CT: 4290 50768 ICD-10: Z85.3 ICD-9: V10.3 04/13/2024 Active History of melanoma SNOMED CT: 155666851 ICD-10: Z85.820 ICD-9: V10.82 04/13/2024 Active History of TIA (transient ischemic attack) SNOMED CT: 340562947 ICD-10: Z86.73 ICD-9: V12.54 04/13/2024 Active Hyperlipidemia, unspecified hyperlipidemia type SNOMED CT: 84700251 ICD-10: E78.5 ICD-9: 272.4 04/13/2024 Active Statin intolerance SNOMED CT: 157342145 ICD-10: Z78.9 ICD-9: 995.27 04/13/2024 Active Urinary incontinence, unspecified type SNOMED CT: 860010351 ICD-10: R32 ICD-9: 788.30 04/13/2024 Active Vascular dementia, unspecifi ed severity, without behavioral disturbance, psychotic disturbance, mood disturbance, and anxiety ICD-10: F01.50 04/13/2024 Active Medications Medication Codes Instructions Start Date Stop Date Status Fill Instructions Oyster Shell Calcium-500 500 mg (as carbonate 1,250 mg) tablet RxNorm: 707559 1 TABLET ORALLY DAILY FOR BONE HEALTH 07/09/19 026 Active PLEASE SEND REFILLS.PHARMA Kynded PLEASE PROFILE FOR FUTURE USE-C3 JianRec ords Vitron-C 65 mg iron-125 mg tablet,delayed release RxNorm: 6884727 1 Tablet(s) Oral QOD every other day 07/09/19 026 Active PLEASE SEND REFILLS.OpenROV PLEASE PROFILE FOR FUTURE USE-C3 JianRec ords Co Q-10 200 mg capsule RxNorm: 987214 1 CAPSULE ORALLY DAILY W/ 100MG CAP FOR A TOTAL DOSE OF 300MG (DX: SUPPLEMENT) 07/09/19 026 Active PLEASE SEND REFILLS.OpenROV PLEASE PROFILE FOR FUTURE USE-MedicalRec ords oxybutynin chloride ER 10 mg tablet,extended release 24 hr RxNorm: 651785 1 TAB ORALLY EVERY EVENING FOR BLADDER SPASMS 07/09/19 Active PLEASE SEND REFILLS.PHARMA CY PLEASE PROFILE FOR FUTURE USE-MedicalRec ords Trelegy Ellipta 200 mcg-62.5 mcg-25 mcg powder for inhalation RxNorm: 6419872 INHALE 1 PUFF INTO THE LUNGS EVERY 24 HOURS (DX: CHRONIC OBSTRUCTIVE PULMONARY DISEASE) 07/09/19 Active PLEASE SEND REFILLS.PHARMA CY PLEASE PROFILE FOR FUTURE USE-MedicalRec ords fluoxetine 10 mg capsule RxNorm: 956409 1 CAPSULE ORALLY DAILY (DX: DEPRESSION) (DX: ANXIETY) 07/09/19 Active PLEASE SEND REFILLS.PHARMA CY PLEASE PROFILE FOR FUTURE USE-MedicalRec ords cyanocobalamin (vit B-12) 500 mcg tablet RxNorm: 360927 1 TABLET ORALLY DAILY (DX: ANEMIA) 07/09/19 Active PLEASE SEND REFILLS.PHARMA CY PLEASE PROFILE FOR FUTURE USE-MedicalRec ords irbesartan 150 mg tablet RxNorm: 749721 1 TABLET ORALLY 2 TIMES DAILY (DX: HYPERTENSION) 07/09/19 Active PLEASE SEND REFILLS.PHARMA CY PLEASE PROFILE FOR FUTURE USE-MedicalRec ords cholecalciferol (vitamin D3) 25 mcg (1,000 unit) tablet RxNorm: 529657 1 TABLET ORALLY DAILY (DX: VITAMIN D DEFICIENCY) 07/09/19 Active PLEASE SEND REFILLS.PHARMA CY PLEASE PROFILE FOR FUTURE USE-MedicalRec ords quetiapine 25 mg tablet RxNorm: 343375 1 TABLET ORALLY AT BEDTIME (DX: ANXIETY) 07/09/19 Active PLEASE SEND REFILLS.PHARMA CY PLEASE PROFILE FOR FUTURE USE-MedicalRec ords hydrochlorothiazide 25 mg tablet RxNorm: 676210 1 TABLET ORALLY DAILY (DX: HYPERTENSION) 07/09/19 25 Active PLEASE SEND REFILLS.PHARMA CY PLEASE PROFILE FOR FUTURE USE-MedicalRec ords coenzyme Q10 100 mg capsule RxNorm: 205753 1 CAPSULE ORALLY DAILY W/ 200MG CAP FOR A TOTAL DOSE OF 300MG (DX: SUPPLEMENT) 07/09/19 25 026 Active PLEASE SEND REFILLS.PHARMA CY PLEASE PROFILE FOR FUTURE USE-MedicalRec ords donepezil 10 mg tablet RxNorm: 913228 1 TABLET ORALLY AT BEDTIME (DX: DEMENTIA) 07/09/19 25 Active PLEASE SEND REFILLS.PHARMA CY PLEASE PROFILE FOR FUTURE USE-MedicalRec ords Contour Next EZ Meter RxNorm: USE TO JENIFER T BLOOD GLUCOSE DAILY (DX: DIABETES TYPE 2) 07/09/19 25 Active PLEASE SEND REFILLS.PHARMA CY PLEASE PROFILE FOR FUTURE USE-MedicalRec ords alcohol swabs RxNorm: 861558 USE DIRECTED 07/09/19 25 Active PLEASE SEND REFILLS.PHARMA CY PLEASE PROFILE FOR FUTURE USE-MedicalRec ords Alejandra Protect (zinc oxide) 12 % topical cream RxNorm: 354547 APPLY TO RIGHT BUTTOCK 2 TIMES DAILY;APPLY TO RIGHT BUTTOCK NEEDED WITH SOILING 06/12/19 25 Active albuterol sulfate HFA 90 mcg/actuation aerosol inhaler RxNorm: 8689587 Inhale 2 Puff(s) Inhalation Q4H every four hours as needed 06/01/19 No Stop Date Active Alejandra Protect (zinc oxide) 12 % topical cream RxNorm: 155517 cream Topical apply to right buttocks BID and PRN with soiling 06/01/19 25 Inactive Lantus Solostar U-100 Insulin 100 unit/mL (3 mL) subcutaneous pen RxNorm: 972359 Unit(s) Subcutaneous prime en with 2 units, then inject 8 units SQ QD at bedtime 05/18/19 25 026 Active potassium chloride ER 10 mEq tablet,extended release RxNorm: 551097 Take 1 Tablet(s) Oral QD 04/12/19 No Stop Date Active acetaminophen 500 mg tablet RxNorm: 111199 Take 2 Tablet(s) Oral TID as needed 04/12/19 25 No Stop Date Active fluoxetine 10 mg capsule RxNorm: 765166 Take 1 Capsule(s) Oral QD 04/12/19 25 025 Inactive hydrochlorothiazide 25 mg tablet RxNorm: 927653 Take 1 Tablet(s) Oral QD 04/12/19 025 Inactive Oyster Shell Calcium 500 mg (as calcium carbonate 1,250 mg) tablet RxNorm: 128913 Take 1 Tablet(s) Oral QD 04/12/19 025 Inactive Co Q-10 200 mg capsule RxNorm: 304225 Capsule(s) Oral take 1 cap po daily with 100mg tab to =300mg daily 04/12/19 025 Inactive Co Q-10 100 mg capsule RxNorm: 218334 Capsule(s) Oral take 1 cap daily along with 200mg tab to =300mg daily 04/12/19 025 Inactive quetiapine 25 mg tablet RxNorm: 373198 Take 1 Tablet(s) Oral QHS every night at bedtime 04/12/19 025 Inactive Vitamin D3 25 mcg (1,000 unit) tablet RxNorm: 706104 Take 1 Tablet(s) Oral QD 04/12/19 025 Inactive donepezil 10 mg tablet RxNorm: 752916 Take 1 Tablet(s) Oral QHS every night at bedtime 04/12/19 025 Inactive cyanocobalamin (vit B-12) 500 mcg tablet RxNorm: 177469 Take 1 Tablet(s) Oral QD 04/12/19 025 Inactive oxybutynin chloride ER 10 mg tablet,extended release 24 hr RxNorm: 405178 Take 1 Tablet(s) Oral QPM every evening 04/12/19 025 Inactive irbesartan 150 mg tablet RxNorm: 518167 Take 1 Tablet(s) Oral BID 04/12/19 025 Inactive Trelegy Ellipta 200 mcg-62.5 mcg-25 mcg powder for inhalation RxNorm: 0908063 Inhale 1 Puff(s) Inhalation every 24 hours 04/12/19 025 Inactive Vitron-C 65 mg iron-125 mg tablet,delayed release RxNorm: 2879912 Take 1 Tablet(s) Oral QOD every other day 04/12/19 025 Inactive Eliquis 5 mg tablet RxNorm: 6076545 Take 1 Tablet(s) Oral BID 04/12/19 25 025 Inactive Lantus Solostar U-100 Insulin 100 unit/mL (3 mL) subcutaneous pen RxNorm: 964099 Unit(s) Subcutaneous prime en with 2 units, [...] Result Date Service Location CBC with Platelets EXI139 WBC COUNT (AUTOMATED) 4.1 10e3/uL 06/05/19 25 Unknown CBC with Platelets NZH997 RBC COUNT 789-8 4.37 10e6/uL 06/05/19 25 Unknown CBC with Platelets ZQQ050 Hemoglobin 718-7 13.5 g/dL 06/05/19 25 Unknown CBC with Platelets CQS426 Hematocrit 4544-3 42.8 % 06/05/19 25 Unknown CBC with Platelets IPM711 MCV 787-2 98 fL 06/05/19 25 Unknown CBC with Platelets JJU121 MCH 30.9 pg 06/05/19 25 Unknown CBC with Platelets UWW609 MCHC 31.5 g/dL 06/05/19 25 Unknown CBC with Platelets QSJ675 RDW 16.5 % 06/05/19 25 Unknown CBC with Platelets ZYP799 Platelet Count 777-3 181 10e3/uL 06/05/19 25 Unknown Hemoglobin A1c LAB90 Hemoglobin A1c 69097-4 6.9 % 06/05/19 25 Unknown Hemoglobin A1c LAB90 EST AVERAGE GLUCOSE 151 mg/dL 06/05/19 25 Unknown Glucose WSR0119 Sodium 140 mmol/L 06/05/19 25 Unknown Glucose SDW4248 POTASSIUM (XU) 2823-3 3.5 mmol/L 06/05/19 25 Unknown Glucose WSF2869 CHLORIDE (XU) 100 mmol/L 25 Unknown Glucose OVS4795 CO2 (XU) 28 mmol/L 06/05/19 25 Unknown Glucose BPD7113 ANION GAP (XU) 12 mmol/L 06/05/19 25 Unknown Glucose BGO3584 UREA NITROGEN (XU) 13.7 mg/dL 06/05/19 25 Unknown Glucose RLP0537 Creatinine 0.75 mg/dL 06/05/19 25 Unknown Glucose BKL1491 GFR, ESTIMATE 94686-7 76 mL/min/1.73m 2 06/05/19 25 Unknown Glucose UNV5608 Calcium 9.3 mg/dL 06/05/19 25 Unknown Basic Metabolic Panel OCQ5744 POTASSIUM (XU) 2823-3 3.5 mmol/L 06/05/19 25 Unknown Basic Metabolic Panel [id number] CHLORIDE (XU) 100 mmol/L 06/05/19 25 Unknown Basic Metabolic Panel TXQ1780 Calcium 9.3 mg/dL 06/05/19 25 Unknown Basic Metabolic Panel QYC8218 CO2 (XU) 28 mmol/L 06/05/19 25 Unknown Basic Metabolic Panel QRT9241 Creatinine 0.75 mg/dL 06/05/19 25 Unknown Basic Metabolic Panel [id number] GLUCOSE (XU) 2345-7 79 mg/dL 06/05/19 25 Unknown Basic Metabolic Panel [id number] ANION GAP (XU) 12 mmol/L 06/05/19 25 Unknown Basic Metabolic Panel VFF1975 Sodium 140 mmol/L 06/05/19 25 Unknown Basic Metabolic Panel OAP2889 UREA NITROGEN (XU) 13.7 mg/dL 06/05/19 25 Unknown Basic Metabolic Panel LQH4400 GFR, ESTIMATE 02528-1 76 mL/min/1.73m 2 06/05/19 25 Unknown Urine Culture 89974 URINE CULTURE 14032-3 SEE RESU LTS BELOW 06/04/19 25 Unknown PHQ9 PHQ9 26651-8 1 06/02/19 Unknown UA with Microscopic 40759 COLOR Light Yellow 06/01/19 Unknown UA with Microscopic 31355 Appearance Slightly Cloudy 06/01/19 Unknown UA with Microscopic 07571 GLUCOSE, URINE Negative mg/dL 06/01/19 Unknown UA with Microscopic 95025 BILIRUBIN, URINE Negative 06/01/19 Unknown UA with Microscopic 19937 Ketones Urine Negative mg/dL 06/01/19 Unknown UA with Microscopic 13104 Specific [place] Urine 1.012 06/01/19 Unknown UA with Microscopic 62751 BLOOD, URINE Negative 06/01/19 Unknown UA with Microscopic 97910 pH Urine 6.5 06/01/19 Unknown UA with Microscopic 21726 Protein urine Negative mg/dL 06/01/19 Unknown UA with Microscopic 80115 UROBILINOGEN IRIS Normal mg/dL 06/01/19 Unknown UA with Microscopic 12125 Nitrites Positive 06/01/19 Unknown UA with Microscopic 27850 LEUK ESTERASE Trace 06/01/19 Unknown UA with Microscopic 74436 Bacteria Few /HPF 06/01/19 Unknown UA with Microscopic 79696 WBC CLUMPS 6690-2 Present /HPF 06/01/19 Unknown UA with Microscopic 26163 Mucus Urine Present /LPF 06/01/19 Unknown UA with Microscopic 24450 RBC Urine <1 /HPF 06/01/19 Unknown UA with Microscopic 96173 SQUAMOUS EPITHELIAL 2 /HPF 06/01/19 Unknown UA with Microscopic 79150 WBC Urine 96143-3 26 /HPF 06/01/19 Unknown Urine Culture 52609 URINE CULTURE 27138-8 SEE RESU LTS BELOW 05/23/19 Unknown UA with Microscopic 40994 COLOR Yellow 05/22/19 Unknown UA with Microscopic 27938 Appearance Slightly Cloudy 05/22/19 Unknown UA with Microscopic 80199 GLUCOSE, URINE Negative mg/dL 05/22/19 Unknown UA with Microscopic 95303 BILIRUBIN, URINE Negative 05/22/19 Unknown UA with Microscopic 27990 Ketones Urine Negative mg/dL 05/22/19 Unknown UA with Microscopic 74008 Specific [place] Urine 1.013 05/22/19 Unknown UA with Microscopic 96480 BLOOD, URINE Negative 05/22/19 Unknown UA with Microscopic 91785 pH Urine 6.5 05/22/19 25 Unknown UA with Microscopic 36167 Protein urine 10 mg/dL 05/22/19 25 Unknown UA with Microscopic 00666 UROBILINOGEN IRIS Normal mg/dL 05/22/19 25 Unknown UA with Microscopic 81893 Nitrites Positive 05/22/19 25 Unknown UA with Microscopic 12906 LEUK ESTERASE Large 05/22/19 25 Unknown UA with Microscopic 08560 Bacteria Few /HPF 05/22/19 25 Unknown UA with Microscopic 13252 Mucus Urine Present /LPF 05/22/19 25 Unknown UA with Microscopic 24752 RBC Urine 0 /HPF 05/22/19 25 Unknown UA with Microscopic 37311 SQUAMOUS EPITHELIAL 3 /HPF 05/22/19 25 Unknown UA with Microscopic 20387 WBC Urine 54340-5 24 /HPF 05/22/19 25 Unknown UA with Microscopic 06884 TRANSITIONAL EPI <1 /HPF 05/22/19 25 Unknown PHQ9 PHQ9 00343-9 2 04/13/19 25 Unknown SLUMS SLUMS 01165-8 13 04/13/19 25 Unknown Procedures Procedure Codes Date HG A1C LEVEL LT 7.0% CPT-4: 3044F 06/29/2024 PT INELIG NEG SCRN DEPRES SNOMED CT: 428 333171468117 CPT-4: G8510 06/01/2024 PT INELIG NEG SCRN DEPRES SNOMED CT: 428 821633486569 CPT-4: G8510 04/13/2024 Vital Signs Date Vital 06/29/2024 Blood Pressure 1: 132/82 Code: 8480-6 Heart Rate 1: 66 bpm Code: 8867-4 Respiratory Rate: 18 bpm SpO2: 95% Temperature: 36.3 (C) / 97.3 (F) 06/01/2024 Blood Pressure 1: 150/90 Code: 8480-6 BMI: NaN Code: 85207-2 Heart Rate 1: 71 bpm Code: 8867-4 [...] Encounter Performer Location Location Address Codes Date ([id number]) Home Visit - Est Pt, moderate Diagnosis: Acute cystitis without hematuria[ICD10: N30.00] Diagnosis: Chronic heart failure with preserved ejection fraction[ICD10: I50.32] Diagnosis: Iron deficiency anemia, unspecified iron deficiency anemia type[ICD10: D50.9] Diagnosis: Type 2 diabetes mellitus without complication, unspecified whether fpc insulin use[ICD10: E11.9] Diagnosis: Chronic obstructive pulmonary disease, unspecified COPD type[ICD10: J44.9] Teresamarcellus Boothe[address] [address] CPT-4: 25632 06/29/2024 ([id number]) Medicare Annual Wellness Visit (AWV), Subsequent Diagnosis: Adult general medical exam[SNOMED: 346029646] Diagnosis: ACP (advance care planning)[SNOMED: 857857080] Diagnosis: Frailty[SNOMED: 480945900] Diagnosis: Atherosclerosis of coronary artery of [place] heart without angina pectoris, unspecified vessel or [...] 2 diabetes mellitus without complication, unspecified whether vacuum caster insulin use[ICD10: E11.9] Diagnosis: Unintentional weight loss[ICD10: R63.4] Diagnosis: Unsteady gait[ICD10: R26.81] Diagnosis: Venous insufficiency of both lower extremities[ICD10: I87.2] Diagnosis: Acute cystitis without hematuria[SNOMED: 57294169] Diagnosis: Pressure injury of left buttock, stage 2[ICD10: L89.322] Teresa Laws[address] [address] CPT-4: G0439 06/01/2024 ([id number]) Home Visit - Est Pt, moderate Diagnosis: Adult general medical exam[SNOMED: 579943741] Diagnosis: ACP (advance care planning)[SNOMED: 464357046] Diagnosis: Frailty[SNOMED: 381507873] Diagnosis: Atherosclerosis of coronary artery of [place] heart without angina pectoris, unspecified vessel or [...] 2 diabetes mellitus without complication, unspecified whether fpc insulin use[ICD10: E11.9] Diagnosis: Unintentional weight loss[ICD10: R63.4] Diagnosis: Unsteady gait[ICD10: R26.81] Diagnosis: Venous insufficiency of both lower extremities[ICD10: I87.2] Diagnosis: Acute cystitis without hematuria[SNOMED: 22343462] Diagnosis: Pressure injury of left buttock, stage 2[ICD10: L89.322] [place] [address] CPT-4: 50029 06/01/2024 (82122) Home or Residence Visit Est Pt - Moderate Level, 40 mins 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] Diagnosis: Primary hypertension[ICD10: I10] Diagnosis: Pressure injury of left buttock, stage 2[SNOMED: 42203275932672] Diagnosis: Type 2 diabetes mellitus without complication, unspecified whether vacuum caster insulin use[ICD10: E11.9] Teresa [place] [address] CPT-4: 40233 05/04/2024 ([id number]) Home or Residence Visit ORTHOPAEDIC PHYSICIAN ASSISTANT - Moderate Level, 60 mins Diagnosis: Statin intolerance[SNOMED: 382346044] Diagnosis: Mixed Alzheimer and vascular dementia[SNOMED: 40704249019632] Diagnosis: Vascular dementia, unspecified severity, without behavioral disturbance, psychotic disturbance, mood disturbance, and anxiety[ICD10: F01.50] Diagnosis: Dementia in other diseases classified elsewhere, unspecified severity, without behavioral disturbance, psychotic disturbance, mood disturbance, and anxiety[ICD10: F02.80] Diagnosis: History of TIA (transient ischemic attack)[SNOMED: 103358508] Diagnosis: Type 2 diabetes mellitus without complication, unspecified whether vacuum caster insulin use[SNOMED: 81531985] Diagnosis: Venous insufficiency of both lower extremities[SNOMED: 659253552] Diagnosis: Hyperlipidemia, unspecified hyperlipidemia type[SNOMED: 25593291] Diagnosis: Unintentional weight loss[SNOMED: 897895264] Diagnosis: Urinary incontinence, unspecified type[SNOMED: 799934838] Diagnosis: Depression due to dementia[SNOMED: 02925495] Diagnosis: Compression fracture of L1 vertebra, sequela[SNOMED: 917254374] Diagnosis: Atherosclerosis of coronary artery of [place] heart without angina pectoris, unspecified vessel or lesion type[SNOMED: 309005983] Diagnosis: Unsteady gait[SNOMED: 67512928] Diagnosis: Iron deficiency anemia, unspecified iron deficiency anemia type[SNOMED: 32976785] Diagnosis: Osteopenia, unspecified location[SNOMED: 365652940] Diagnosis: CAMILO (obstructive sleep apnea)[SNOMED: 64992950] Diagnosis: Chronic obstructive pulmonary disease, unspecified COPD type[SNOMED: 36888067] Diagnosis: History of breast cancer[SNOMED: 239302145] Diagnosis: History of melanoma[SNOMED: 121048533] Diagnosis: Primary hypertension[SNOMED: 30745251] Diagnosis: Chronic heart failure with preserved ejection fraction[SNOMED: 753187554] Diagnosis: Diverticulosis[SNOMED : 173445147] Diagnosis: Atrial fibrillation, unspecified type[SNOMED: 21783406] Diagnosis: Advance care planning[SNOMED: 326452045] Teresa Talbot [address] [address] CPT-4: 28111 04/13/2024 Plan of Care Planned Activity Notes [...] Education: Influenza Complet ed 05/04/2024 Appointment: Michela Talbot WPtel: [address] [place] [address] 04/13/2024 Patient Education: Patient Medication Summary Completed 04/13/2024 Patient Education: Influenza Complet ed 04/13/2024 Patient Education: Alzheimer''s Disease Completed 04/13/2024 Patient Education: Dementia Complete d 04/13/2024 Instructions Comment Date Alyx resides at [facility] since about 2021. Previously lived independently in [place]. . Has one daughter Maggie who is involved in healthcare. PMH: History of breast cancer and melanoma, mixed dementia, depression, CAD, HLD, history of CVA/TIA, compression fx of L1 vertebrae, urinary incontinence, hearing loss, osteopeniaPrimary contact: Maggie Gallegos (Daughter)Code Status: DNR/SelectLab Schedule: Mar/SepSpecialists: [facility] (Q[facility]), Cardiology [facility] (MD Echo) 06/11/2024 Type 2 diabetes mellitus wit hout complication, unspecified whether fpc insulin use Sugars reviewed; most readings < [...] 2 diabetes mellitus without complication, unspecified whether fpc insulin use Sugars reviewed; remain in 80s-100s. [...] of care. Atherosclerosis of coronary artery of [place] heart without angina pectoris, unspecified vessel or [...] diabetes mellitus wit hout complication, unspecified whether vacuum caster insulin use Sugars reviewed; remain in 80-90s [...] fibrillation, unspecified type Has seen cardiology in [place] 01/2024. Managed on eliquis 5mg BID. No excessive bruising or bleeding on exam. Atherosclerosis of coronary artery of [place] heart without angina pectoris, unspecified vessel or [...]
--- OUTSIDE RECORDS SUMMARY | 2024-07-10 16:38 | XMS_ITS | CCD ---
Author Name Linda Vivas Address [address] [facility] [address] [place] [address] Phone Organization [facility] Phone Care Team Providers Care Infrastructure Engineer Name Role Phone Teresa Vivas Primary Care Provider Un available Unavailable Chronic Care Management Unavaila ble Summary Purpose DataExchange Insurance Providers Payer name Policy type / Coverage type Covered democrat ID Effective Begin Date Effective End Date BCBS of [facility] Medicare Risk [id number] Unknown Un known Family history Mother Diagnosis Age At Onset Stroke Unknown Social History Social History Element Codes Description Effec tive Dates Marital status Unknown 04/13/2024 Marital status Unknown 04/13/2024 Living arrangements Unknown Assisted Living 04/[address]: 2667772 Former smoker 04/[address]: 1810840 Former smoker 04/[address]: 101613810 No Alcohol Consum ption 04/13/[address]: 340444 Currently drin ks alcohol 04/13/2024 Sexually Active? [...] No Inactive Date A ctive SIMVASTATIN RxNorm: 76602 04/13/2024 No Inactive D ate Active Penicillin Unknown 04/13/2024 No Inactive Date A ctive CLOPIDOGREL Unknown 03/23/2024 No Inactive Date Active naproxen RxNorm: 7258 04/13/2024 No Inactive Date Active levofloxacin RxNorm: 56605 03/23/2024 No Inactive Date Active Levemir Unknown 03/23/2024 No Inactive Date Ac tive metformin RxNorm: 428731 04/13/2024 No Inactive Da te Active ESTROGENS Unknown 03/23/2024 No Inactive Date Ac tive Atenolol RxNorm: 1202 04/13/2024 No Inactive Date Active metoprolol succinate RxNorm: 851997 03/23/2024 No Inactive Date Active Januvia RxNorm: 296251 04/13/2024 No Inactive Da te Active furosemide RxNorm: 4603 03/23/2024 No Inactive Balaji e Active azithromycin RxNorm: 55731 04/13/2024 No Inactive Date Active losartan RxNorm: 134269 04/13/2024 No Inactive Da te Active NSAIDS Unknown 03/23/2024 No Inactive Date Ac tive Amlodipine RxNorm: 380869 04/13/2024 No Inactive D ate Active LISINOPRIL RxNorm: 43405 04/13/2024 No Inactive Da te Active PIOGLITAZONE [...] 2 diabetes mellitus without complication, unspecified whether extermination supervisor insulin use ICD-10: E11.9 ICD-9: 250.00 06/29/2024 Active ACP (advance care planning) SNOMED CT: 3 39030911 ICD-10: Z71.89 ICD-9: V65.49 06/01/2024 Active Adult general medical exam SNOMED CT: 30 0496599 ICD-10: Z00.00 ICD-9: V70.9 06/01/2024 Active Atherosclerosis of coronary artery of [place] heart without angina pectoris, unspecified vessel or lesion type ICD-10: I25.10 ICD-9: 414.01 06/01/2024 Active Atrial fibrillation, unspecified type ICD-10: I48.91 ICD-9: 427.31 06/01/2024 Active 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 ICD-9: 311 06/01/[address]: 793791817 ICD-10: R54 ICD-9: 797 06/01/2024 Active Mixed [...] fracture of L1 vertebra, sequela SNOMED CT: 802761285 ICD-10: S32.010S ICD-9: 905.1 04/13/2024 Active Dementia in other diseases classified elsewhere, unspecified severity, without behavioral disturbance, psychotic disturbance, mood disturbance, and anxiety ICD-10: F02.80 04/13/[address]: 516559091 ICD-10: K57.90 ICD-9: 562.10 04/13/2024 Active History of breast cancer SNOMED CT: 4290 04422 ICD-10: Z85.3 ICD-9: V10.3 04/13/2024 Active History of melanoma SNOMED CT: 842263485 ICD-10: Z85.820 ICD-9: V10.82 04/13/2024 Active History of TIA (transient ischemic attack) SNOMED CT: 554869072 ICD-10: Z86.73 ICD-9: V12.54 04/13/2024 Active Hyperlipidemia, unspecified hyperlipidemia type SNOMED CT: 50358628 ICD-10: E78.5 ICD-9: 272.4 04/13/2024 Active Statin intolerance SNOMED CT: 950205920 ICD-10: Z78.9 ICD-9: 995.27 04/13/2024 Active Urinary incontinence, unspecified type SNOMED CT: 417779107 ICD-10: R32 ICD-9: 788.30 04/13/2024 Active Vascular dementia, unspecifi ed severity, without behavioral disturbance, psychotic disturbance, mood disturbance, and anxiety ICD-10: F01.50 04/13/2024 Active Medications Medication Codes Instructions Start Date Stop Date Status Fill Instructions Oyster Shell Calcium-500 500 mg (as carbonate 1,250 mg) tablet RxNorm: 193017 1 TABLET ORALLY DAILY FOR BONE HEALTH 07/09/19 026 Active PLEASE SEND REFILLS.PHARMA [employer] PLEASE PROFILE FOR FUTURE USE-URXRec ords Vitron-C 65 mg iron-125 mg tablet,delayed release RxNorm: 3489645 1 Tablet(s) Oral QOD every other day 07/09/19 026 Active PLEASE SEND REFILLS.[employer] PLEASE PROFILE FOR FUTURE USE-URXRec ords Co Q-10 200 mg capsule RxNorm: 877921 1 CAPSULE ORALLY DAILY W/ 100MG CAP FOR A TOTAL DOSE OF 300MG (DX: SUPPLEMENT) 07/09/19 026 Active PLEASE SEND REFILLS.[employer] PLEASE PROFILE FOR FUTURE USE-[facility] oxybutynin chloride ER 10 mg tablet,extended release 24 hr RxNorm: 790648 1 TAB ORALLY EVERY EVENING FOR BLADDER SPASMS 07/09/19 Active PLEASE SEND REFILLS.PHARMA CY PLEASE PROFILE FOR FUTURE USE-MedicalRec or[facility] Trelegy Ellipta 200 mcg-62.5 mcg-25 mcg powder for inhalation RxNorm: 8687019 INHALE 1 PUFF INTO THE LUNGS EVERY 24 HOURS (DX: CHRONIC OBSTRUCTIVE PULMONARY DISEASE) 07/09/19 Active PLEASE SEND REFILLS.PHARMA CY PLEASE PROFILE FOR FUTURE USE-[facility] or[facility] fluoxetine 10 mg capsule RxNorm: 219512 1 CAPSULE ORALLY DAILY (DX: DEPRESSION) (DX: ANXIETY) 07/09/19 Active PLEASE SEND REFILLS.PHARMA CY PLEASE PROFILE FOR FUTURE USE-Medical[facility] or[facility] cyanocobalamin (vit B-12) 500 mcg tablet RxNorm: 063552 1 TABLET ORALLY DAILY (DX: ANEMIA) 07/09/19 Active PLEASE SEND REFILLS.PHARMA CY PLEASE PROFILE FOR FUTURE USE-MedicalRec or[facility] irbesartan 150 mg tablet RxNorm: 708364 1 TABLET ORALLY 2 TIMES DAILY (DX: HYPERTENSION) 07/09/19 Active PLEASE SEND REFILLS.PHARMA CY PLEASE PROFILE FOR FUTURE USE-[facility] cholecalciferol (vitamin D3) 25 mcg (1,000 unit) tablet RxNorm: 422209 1 TABLET ORALLY DAILY (DX: VITAMIN D DEFICIENCY) 07/09/19 Active PLEASE SEND REFILLS.PHARMA CY PLEASE PROFILE FOR FUTURE USE-[facility] quetiapine 25 mg tablet RxNorm: 216712 1 TABLET ORALLY AT BEDTIME (DX: ANXIETY) 07/09/19 Active PLEASE SEND REFILLS.PHARMA CY PLEASE PROFILE FOR FUTURE USE-[facility] hydrochlorothiazide 25 mg tablet RxNorm: 597322 1 TABLET ORALLY DAILY (DX: HYPERTENSION) 07/09/19 25 Active PLEASE SEND REFILLS.PHARMA CY PLEASE PROFILE FOR FUTURE USE-[facility] coenzyme Q10 100 mg capsule RxNorm: 488582 1 CAPSULE ORALLY DAILY W/ 200MG CAP FOR A TOTAL DOSE OF 300MG (DX: SUPPLEMENT) 07/09/19 25 026 Active PLEASE SEND REFILLS.PHARMA CY PLEASE PROFILE FOR FUTURE USE-[facility] donepezil 10 mg tablet RxNorm: 652082 1 TABLET ORALLY AT BEDTIME (DX: DEMENTIA) 07/09/19 25 Active PLEASE SEND REFILLS.PHARMA CY PLEASE PROFILE FOR FUTURE USE-MedicalRec or[facility] Contour Next EZ Meter RxNorm: USE TO JENIFER T BLOOD GLUCOSE DAILY (DX: DIABETES TYPE 2) 07/09/19 25 Active PLEASE SEND REFILLS.PHARMA CY PLEASE PROFILE FOR FUTURE USE-[facility] alcohol swabs RxNorm: 444135 USE DIRECTED 07/09/19 25 Active PLEASE SEND REFILLS.PHARMA CY PLEASE PROFILE FOR FUTURE USE-MedicalRec ords Alejandra Protect (zinc oxide) 12 % topical cream RxNorm: 131463 APPLY TO RIGHT BUTTOCK 2 TIMES DAILY;APPLY TO RIGHT BUTTOCK NEEDED WITH SOILING 06/12/19 25 Active albuterol sulfate HFA 90 mcg/actuation aerosol inhaler RxNorm: 6606084 Inhale 2 Puff(s) Inhalation Q4H every four hours as needed 06/01/19 No Stop Date Active Alejandra Protect (zinc oxide) 12 % topical cream RxNorm: 514342 cream Topical apply to right buttocks BID and PRN with soiling 06/01/19 25 Inactive Lantus Solostar U-100 Insulin 100 unit/mL (3 mL) subcutaneous pen RxNorm: 884070 Unit(s) Subcutaneous prime en with 2 units, then inject 8 units SQ QD at bedtime 05/18/19 25 026 Active potassium chloride ER 10 mEq tablet,extended release RxNorm: 877424 Take 1 Tablet(s) Oral QD 04/12/19 No Stop Date Active acetaminophen 500 mg tablet RxNorm: 677181 Take 2 Tablet(s) Oral TID as needed 04/12/19 25 No Stop Date Active fluoxetine 10 mg capsule RxNorm: 088025 Take 1 Capsule(s) Oral QD 04/12/19 25 025 Inactive hydrochlorothiazide 25 mg tablet RxNorm: 802003 Take 1 Tablet(s) Oral QD 04/12/19 025 Inactive Oyster Shell Calcium 500 mg (as calcium carbonate 1,250 mg) tablet RxNorm: 794645 Take 1 Tablet(s) Oral QD 04/12/19 025 Inactive Co Q-10 200 mg capsule RxNorm: 721319 Capsule(s) Oral take 1 cap po daily with 100mg tab to =300mg daily 04/12/19 025 Inactive Co Q-10 100 mg capsule RxNorm: 211098 Capsule(s) Oral take 1 cap daily along with 200mg tab to =300mg daily 04/12/19 025 Inactive quetiapine 25 mg tablet RxNorm: 860687 Take 1 Tablet(s) Oral QHS every night at bedtime 04/12/19 025 Inactive Vitamin D3 25 mcg (1,000 unit) tablet RxNorm: 602799 Take 1 Tablet(s) Oral QD 04/12/19 025 Inactive donepezil 10 mg tablet RxNorm: 682462 Take 1 Tablet(s) Oral QHS every night at bedtime 04/12/19 025 Inactive cyanocobalamin (vit B-12) 500 mcg tablet RxNorm: 192462 Take 1 Tablet(s) Oral QD 04/12/19 025 Inactive oxybutynin chloride ER 10 mg tablet,extended release 24 hr RxNorm: 601547 Take 1 Tablet(s) Oral QPM every evening 04/12/19 025 Inactive irbesartan 150 mg tablet RxNorm: 213344 Take 1 Tablet(s) Oral BID 04/12/19 025 Inactive Trelegy Ellipta 200 mcg-62.5 mcg-25 mcg powder for inhalation RxNorm: 7846645 Inhale 1 Puff(s) Inhalation every 24 hours 04/12/19 025 Inactive Vitron-C 65 mg iron-125 mg tablet,delayed release RxNorm: 7686885 Take 1 Tablet(s) Oral QOD every other day 04/12/19 025 Inactive Eliquis 5 mg tablet RxNorm: 1451107 Take 1 Tablet(s) Oral BID 04/12/19 25 025 Inactive Lantus Solostar U-100 Insulin 100 unit/mL (3 mL) subcutaneous pen RxNorm: 729095 Unit(s) Subcutaneous prime en with 2 units, [...] Result Date Service Location CBC with Platelets APX937 WBC COUNT (AUTOMATED) 4.1 10e3/uL 06/05/19 25 Unknown CBC with Platelets EBX560 RBC COUNT 789-8 4.37 10e6/uL 06/05/19 25 Unknown CBC with Platelets CWN939 Hemoglobin 718-7 13.5 g/dL 06/05/19 25 Unknown CBC with Platelets TDF298 Hematocrit 4544-3 42.8 % 06/05/19 25 Unknown CBC with Platelets PPF464 MCV 787-2 98 fL 06/05/19 25 Unknown CBC with Platelets MJT073 MCH 30.9 pg 06/05/19 25 Unknown CBC with Platelets NZJ805 MCHC 31.5 g/dL 06/05/19 25 Unknown CBC with Platelets KDY769 RDW 16.5 % 06/05/19 25 Unknown CBC with Platelets SZO772 Platelet Count 777-3 181 10e3/uL 06/05/19 25 Unknown Hemoglobin A1c LAB90 EST AVERAGE GLUCOSE 151 mg/dL 06/05/19 25 Unknown Hemoglobin A1c LAB90 Hemoglobin A1c 38484-4 6.9 % 06/05/19 25 Unknown Glucose HXZ6095 Sodium 140 mmol/L 06/05/19 25 Unknown Glucose PGD1159 POTASSIUM (XU) 2823-3 3.5 mmol/L 06/05/19 25 Unknown Glucose MDW1622 CHLORIDE (XU) 100 mmol/L 25 Unknown Glucose LXP0500 CO2 (XU) 28 mmol/L 06/05/19 25 Unknown Glucose JBW5859 ANION GAP (XU) 12 mmol/L 06/05/19 25 Unknown Glucose WGB2085 UREA NITROGEN (XU) 13.7 mg/dL 06/05/19 25 Unknown Glucose TFR6131 Creatinine 0.75 mg/dL 06/05/19 25 Unknown Glucose EXC7774 GFR, ESTIMATE 20700-9 76 mL/min/1.73m 2 06/05/19 25 Unknown Glucose TPI4519 Calcium 9.3 mg/dL 06/05/19 25 Unknown Basic Metabolic Panel BYR8424 POTASSIUM (XU) 2823-3 3.5 mmol/L 06/05/19 25 Unknown Basic Metabolic Panel HHC6417 CHLORIDE (XU) 100 mmol/L 06/05/19 25 Unknown Basic Metabolic Panel NDW7485 CO2 (XU) 28 mmol/L 06/05/19 25 Unknown Basic Metabolic Panel KOO2082 Calcium 9.3 mg/dL 06/05/19 25 Unknown Basic Metabolic Panel EJD6355 ANION GAP (XU) 12 mmol/L 06/05/19 25 Unknown Basic Metabolic Panel BOB6883 Creatinine 0.75 mg/dL 06/05/19 25 Unknown Basic Metabolic Panel DQL9601 GLUCOSE (XU) 2345-7 79 mg/dL 06/05/19 25 Unknown Basic Metabolic Panel RCL2297 Sodium 140 mmol/L 06/05/19 25 Unknown Basic Metabolic Panel EIT4969 UREA NITROGEN (XU) 13.7 mg/dL 06/05/19 25 Unknown Basic Metabolic Panel SNO7185 GFR, ESTIMATE 36371-7 76 mL/min/1.73m 2 06/05/19 25 Unknown Urine Culture 97241 URINE CULTURE 21623-5 SEE RESU LTS BELOW 06/04/19 25 Unknown PHQ9 PHQ9 55009-6 1 06/02/19 Unknown UA with Microscopic 55221 COLOR Light Yellow 06/01/19 Unknown UA with Microscopic 37617 Appearance Slightly Cloudy 06/01/19 Unknown UA with Microscopic 94280 GLUCOSE, URINE Negative mg/dL 06/01/19 Unknown UA with Microscopic 51540 BILIRUBIN, URINE Negative 06/01/19 Unknown UA with Microscopic 14134 Ketones Urine Negative mg/dL 06/01/19 Unknown UA with Microscopic 01327 Specific [place] Urine 1.012 06/01/19 Unknown UA with Microscopic 83092 BLOOD, URINE Negative 06/01/19 Unknown UA with Microscopic 32843 pH Urine 6.5 06/01/19 Unknown UA with Microscopic 43322 Protein urine Negative mg/dL 06/01/19 Unknown UA with Microscopic 79086 UROBILINOGEN IRIS Normal mg/dL 06/01/19 Unknown UA with Microscopic 16799 Nitrites Positive 06/01/19 Unknown UA with Microscopic 67986 LEUK ESTERASE Trace 06/01/19 Unknown UA with Microscopic 75242 Bacteria Few /HPF 06/01/19 Unknown UA with Microscopic 68371 WBC CLUMPS 6690-2 Present /HPF 06/01/19 Unknown UA with Microscopic 70791 Mucus Urine Present /LPF 06/01/19 Unknown UA with Microscopic 78870 RBC Urine <1 /HPF 06/01/19 Unknown UA with Microscopic 58482 SQUAMOUS EPITHELIAL 2 /HPF 06/01/19 Unknown UA with Microscopic 87586 WBC Urine 53178-4 26 /HPF 06/01/19 Unknown Urine Culture 08871 URINE CULTURE 51464-5 SEE RESU LTS BELOW 05/23/19 Unknown UA with Microscopic 77201 COLOR Yellow 05/22/19 Unknown UA with Microscopic 84090 Appearance Slightly Cloudy 05/22/19 Unknown UA with Microscopic 25446 GLUCOSE, URINE Negative mg/dL 05/22/19 Unknown UA with Microscopic 17841 BILIRUBIN, URINE Negative 05/22/19 Unknown UA with Microscopic 76320 Ketones Urine Negative mg/dL 05/22/19 Unknown UA with Microscopic 18685 Specific [place] Urine 1.013 05/22/19 Unknown UA with Microscopic 44487 BLOOD, URINE Negative 05/22/19 Unknown UA with Microscopic 39364 pH Urine 6.5 05/22/19 25 Unknown UA with Microscopic 35419 Protein urine 10 mg/dL 05/22/19 25 Unknown UA with Microscopic 45939 UROBILINOGEN IRIS Normal mg/dL 05/22/19 25 Unknown UA with Microscopic 26871 Nitrites Positive 05/22/19 25 Unknown UA with Microscopic 11553 LEUK ESTERASE Large 05/22/19 25 Unknown UA with Microscopic 18059 Bacteria Few /HPF 05/22/19 25 Unknown UA with Microscopic 53900 Mucus Urine Present /LPF 05/22/19 25 Unknown UA with Microscopic 84387 RBC Urine 0 /HPF 05/22/19 25 Unknown UA with Microscopic 31642 SQUAMOUS EPITHELIAL 3 /HPF 05/22/19 25 Unknown UA with Microscopic 98005 WBC Urine 58560-6 24 /HPF 05/22/19 25 Unknown UA with Microscopic 26527 TRANSITIONAL EPI <1 /HPF 05/22/19 25 Unknown PHQ9 PHQ9 26559-3 2 04/13/19 25 Unknown SLUMS SLUMS 28860-1 13 04/13/19 25 Unknown Procedures Procedure Codes Date HG A1C LEVEL LT 7.0% CPT-4: 3044F 06/29/2024 PT INELIG NEG SCRN DEPRES SNOMED CT: 428 652807031811 CPT-4: G8510 06/01/2024 PT INELIG NEG SCRN DEPRES SNOMED CT: 428 172668768676 CPT-4: G8510 04/13/2024 Vital Signs Date Vital 06/29/2024 Blood Pressure 1: 132/82 Code: 8480-6 Heart Rate 1: 66 bpm Code: 8867-4 Respiratory Rate: 18 bpm SpO2: 95% Temperature: 36.3 (C) / 97.3 (F) 06/01/2024 Blood Pressure 1: 150/90 Code: 8480-6 BMI: NaN Code: 81996-4 Heart Rate 1: 71 bpm Code: 8867-4 [...] Encounter Performer Location Location Address Codes Date (17929) Home Visit - Est Pt, moderate Diagnosis: Acute cystitis without hematuria[ICD10: N30.00] Diagnosis: Chronic heart failure with preserved ejection fraction[ICD10: I50.32] Diagnosis: Iron deficiency anemia, unspecified iron deficiency anemia type[ICD10: D50.9] Diagnosis: Type 2 diabetes mellitus without complication, unspecified whether fdc insulin use[ICD10: E11.9] Diagnosis: Chronic obstructive pulmonary disease, unspecified COPD type[ICD10: J44.9] Teresamarcellus [address]he[address] [address] CPT-4: 84211 06/29/2024 ([id number]) Medicare Annual Wellness Visit (AWV), Subsequent Diagnosis: Adult general medical exam[SNOMED: 081606271] Diagnosis: ACP (advance care planning)[SNOMED: 786219275] Diagnosis: Frailty[SNOMED: 733402731] Diagnosis: Atherosclerosis of coronary artery of [place] heart without angina pectoris, unspecified vessel or [...] 2 diabetes mellitus without complication, unspecified whether extermination supervisor insulin use[ICD10: E11.9] Diagnosis: Unintentional weight loss[ICD10: R63.4] Diagnosis: Unsteady gait[ICD10: R26.81] Diagnosis: Venous insufficiency of both lower extremities[ICD10: I87.2] Diagnosis: Acute cystitis without hematuria[SNOMED: 30525183] Diagnosis: Pressure injury of left buttock, stage 2[ICD10: L89.322] Teresa Laws[address] [address] CPT-4: G0439 06/01/2024 ([id number]) Home Visit - Est Pt, moderate Diagnosis: Adult general medical exam[SNOMED: 589750468] Diagnosis: ACP (advance care planning)[SNOMED: 285988531] Diagnosis: Frailty[SNOMED: 445715853] Diagnosis: Atherosclerosis of coronary artery of [place] heart without angina pectoris, unspecified vessel or [...] 2 diabetes mellitus without complication, unspecified whether fdc insulin use[ICD10: E11.9] Diagnosis: Unintentional weight loss[ICD10: R63.4] Diagnosis: Unsteady gait[ICD10: R26.81] Diagnosis: Venous insufficiency of both lower extremities[ICD10: I87.2] Diagnosis: Acute cystitis without hematuria[SNOMED: 16481834] Diagnosis: Pressure injury of left buttock, stage 2[ICD10: L89.322] [facility] [place] [address] CPT-4: 15685 06/01/2024 ([id number]) Home or Residence Visit Est Pt - Moderate Level, 40 mins 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] Diagnosis: Primary hypertension[ICD10: I10] Diagnosis: Pressure injury of left buttock, stage 2[SNOMED: 66597713671318] Diagnosis: Type 2 diabetes mellitus without complication, unspecified whether extermination supervisor insulin use[ICD10: E11.9] Teresa [facility] [place] [address] CPT-4: 34639 05/04/2024 ([id number]) Home or Residence Visit HIGH RISK OB - Moderate Level, 60 mins Diagnosis: Statin intolerance[SNOMED: 968023536] Diagnosis: Mixed Alzheimer and vascular dementia[SNOMED: 54606038649235] Diagnosis: Vascular dementia, unspecified severity, without behavioral disturbance, psychotic disturbance, mood disturbance, and anxiety[ICD10: F01.50] Diagnosis: Dementia in other diseases classified elsewhere, unspecified severity, without behavioral disturbance, psychotic disturbance, mood disturbance, and anxiety[ICD10: F02.80] Diagnosis: History of TIA (transient ischemic attack)[SNOMED: 394900008] Diagnosis: Type 2 diabetes mellitus without complication, unspecified whether extermination supervisor insulin use[SNOMED: 12703299] Diagnosis: Venous insufficiency of both lower extremities[SNOMED: 333544799] Diagnosis: Hyperlipidemia, unspecified hyperlipidemia type[SNOMED: 42026506] Diagnosis: Unintentional weight loss[SNOMED: 606690569] Diagnosis: Urinary incontinence, unspecified type[SNOMED: 682192127] Diagnosis: Depression due to dementia[SNOMED: 08782975] Diagnosis: Compression fracture of L1 vertebra, sequela[SNOMED: 992662324] Diagnosis: Atherosclerosis of coronary artery of [place] heart without angina pectoris, unspecified vessel or lesion type[SNOMED: 062580562] Diagnosis: Unsteady gait[SNOMED: 32985545] Diagnosis: Iron deficiency anemia, unspecified iron deficiency anemia type[SNOMED: 88594149] Diagnosis: Osteopenia, unspecified location[SNOMED: 260865999] Diagnosis: CAMILO (obstructive sleep apnea)[SNOMED: 79207149] Diagnosis: Chronic obstructive pulmonary disease, unspecified COPD type[SNOMED: 89272281] Diagnosis: History of breast cancer[SNOMED: 819519031] Diagnosis: History of melanoma[SNOMED: 760015866] Diagnosis: Primary hypertension[SNOMED: 19763201] Diagnosis: Chronic heart failure with preserved ejection fraction[SNOMED: 572636925] Diagnosis: Diverticulosis[SNOMED : 413556055] Diagnosis: Atrial fibrillation, unspecified type[SNOMED: 94784996] Diagnosis: Advance care planning[SNOMED: 705290256] Teresa Talbot [address] [address] CPT-4: 54696 04/13/2024 Plan of Care Planned Activity Notes [...] Complet ed 05/04/2024 Appointment: Michela Talbot WPtel: [address] [place] [address] 04/13/2024 Patient Education: Patient Medication Summary Completed 04/13/2024 Patient Education: Influenza Complet ed 04/13/2024 Patient Education: Alzheimer''s Disease Completed 04/13/2024 Patient Education: Dementia Complete d 04/13/2024 Instructions Comment Date Alyx resides at [facility] since about 2021. Previously lived independently in [place]. . Has one daughter Maggie who is involved in healthcare. PMH: History of breast cancer and melanoma, mixed dementia, depression, CAD, HLD, history of CVA/TIA, compression fx of L1 vertebrae, urinary incontinence, hearing loss, osteopeniaPrimary contact: Maggie Gallegos (Daughter)Code Status: DNR/SelectLab Schedule: Mar/SepSpecialists: [facility] (Q[facility]), Cardiology [facility] (MD Echo) 06/11/2024 Type 2 diabetes mellitus wit hout complication, unspecified whether fdc insulin use Sugars reviewed; most readings < [...] 2 diabetes mellitus without complication, unspecified whether fdc insulin use Sugars reviewed; remain in 80s-100s. [...] of care. Atherosclerosis of coronary artery of [place] heart without angina pectoris, unspecified vessel or [...] diabetes mellitus wit hout complication, unspecified whether extermination supervisor insulin use Sugars reviewed; remain in 80-90s [...] fibrillation, unspecified type Has seen cardiology in [place] 01/2024. Managed on eliquis 5mg BID. No excessive bruising or bleeding on exam. Atherosclerosis of coronary artery of [place] heart without angina pectoris, unspecified vessel or [...]
--- OUTSIDE RECORDS SUMMARY | 2024-07-10 16:38 | XMS_ITS ---
Author Organization [facility] Address [address] , [address] [place] [address] Phone Care Team Providers Care Produce Assistant Name Role Phone Narendra Ricardo MD Unavailable [...] PA-C, [address], [address], [place], [address], Pending order Follow up DOUGLAS Pending order Follow up DOUGLAS Pending order Patient Instruct ions Procedures Code Procedure Name Date Entry Date SCT-[id number] Documentation of current medicatio ns [facility]-[id number] Documentation of current medicatio ns ORDERS Patient Instructions Vital Signs Date Name Value Unit Description Height 66 [in_us] height E&M Immunizations No information available. Advance Directives No information available.
--- OUTSIDE RECORDS SUMMARY | 2024-07-10 16:38 | XMS_ITS | Clinical Summary ---
Author Organization [facility] Address [address] , [address] [place] [address] Phone Care Team Providers Care Tank Shop Supervisor Name Role Phone Narendra Ricardo MD Conditions or Problems Problem Name Problem Code Onset Date Status Entry Date Provider Comment Standard Description Annotate Gait imbalance 361167463 (SNOMED CT) 04/11 Active 04/11 Narendra Ricardo MD Abnormal gait due to impairment of balance Dementia 36721922 (SNOMED CT) 04/11 Active 04/11 Narendra Ricardo MD Dementia Hypertension 20866817 (SNOMED CT) 09/26 Active 09/26 Narendra Ricardo MD Hypertensive disorder Type 2 diabetes mellitus 70619460 (SNOMED CT) 09/26 Active 09/26 Narendra Ricardo MD Type 2 diabetes mellitus Depression NOS 90956556 (SNOMED CT) 04/13 Active 04/22 Suni Begum PsyD Depressive disorder Mild cognitive impairment 689589572 (SNOMED CT) 04/13 Active 04/22 Suni Begum PsyD Mild neurocognitive disorder Memory loss 52497890 (SNOMED CT) 07/17 Active 07/17 Narendra Ricardo MD Amnesia MIGRAINE VARIANT, 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 (ICD-9-CM) 08/10 Active 08/10 Dick Rashid DO Variants of migraine, not elsewhere classified, without mention of intractable migraine, without mention of status migrainosus HEADACHE 12103361 (SNOMED CT) 08/10 Active 08/10 Dick Michaelsrel DO Headache Medications Medication Instructions Start Date Stop Date Generic Name [facility] Provider DONEPEZIL HCL 10 MG TABS Take 1 tablet by mouth once a day 04/22 donepezil 73855651336 Laila Dinaneftali Aguirreil PA-C DONEPEZIL HCL 23 MG TABS Take 1 tablet by mouth once a day 04/11 donepezil 93127364906 Elva Underwood RN, BSN DONEPEZIL HCL 10 MG TABS Take 1 tablet by mouth once a day 04/11 donepezil 14201096145 Narendra Ricardo MD DONEPEZIL HCL 23 MG TABS Take 1 tablet by mouth once a day 04/11 donepezil 67155261413 Narendra Ricardo MD QUETIAPINE FUMARATE 25 MG TABS take 1 tab by mouth at bedtime 11/13 quetiapine 91530042786 Laila Larkin PA-C VALSARTAN twice a day 10/09 DIOVAN Laila Larkin PA-C ASPIRIN 325 MG TABS once a day 10/09 aspirin 71437304497 Laila Larkin PA-C HYDROCHLOROTHIAZIDE 25 MG TABS once a day 10/09 hydrochlorothiazi de 99947277747 Laila Aguirreil PA-C TEMAZEPAM 30 MG CAPS Bedtime 10/09 temazepam 19214762862 Laila Larkin PA-C HYDROCODONE-ACETAMIN OPHEN 5-325 MG TABS every six hours as needed 10/09 hydrocodone-aceta minophen 62790009880 Laila Agurireil PA-C POTASSIUM CHLORIDE ER 10 MEQ CR-CAPS twice a day 10/09 potassium chloride 46393466149 Laila Aguirreil PA-C DIAZEPAM 5 MG TABS 1 tablet by mouth 07/23 diazepam 06827468005 Laila Aguirreil PA-C METFORMIN HCL 500 MG TABS 10/09 metformin 74184775114 Laila Aguirreil PA-C FLUTICASONE PROPIONATE HFA 10/09 FLOVENT HFA [facility] THIAMINE HCL once a day 10/09 THIAMINE [facility] INSULIN ISOPHANE twice a day 10/09 HUMAN Laila Dina Trae NEAL TIOTROPIUM BROMIDE MONOHYDRATE once a day 10/09 SPIRIVA HANDIHALER [facility] SENNOSIDES 8.6 MG TABS twice a day as needed 10/09 SENNOSIDES [facility] POTASSIUM CHLORIDE ER 10 MEQ CR-TABS 10/09 potassium chloride 19080933827 [facility]NGEL ALBUTEROL SULFATE HFA 108 (90 Base) MCG/ACT AERS every four hours as needed 10/09 albuterol sulfate 89809943529 [facility] CALCIUM/C/D 500-10-250 MG-MG-UNIT CHEW calcium carbonate 51604947175 [facility] Dina Cherjosemi ÁNGEL VITAMIN D3 25 MCG (1000 UT) TABS cholecalciferol (vitamin d3) 62718318989 [facility] Dina Cherjosemi ÁNGEL TRELEGY ELLIPTA 200-62.5-25 MCG/ACT AEPB fluticasone-umec l idin-vilanter 27216972183 [facility] DIAZEPAM 5 MG TABS 1 tablet by mouth 07/23 diazepam 92711387832 Narendra Ricardo MD SENNOSIDES 8.6 MG TABS twice a day as needed 10/09 SENNOSIDES Narendra Ricardo MD BISACODYL 10 MG SUPP once a day as needed 04/11 bisacodyl 33756326606 Narendra Ricardo MD VALSARTAN twice a day 10/09 DIOVAN Narendra Ricardo MD VITAMIN B-12 500 MCG TABS once a day cyanocobalamin (vitamin b-12) 07488601713 Narendra Ricardo MD LEVOFLOXACIN 500 MG TABS null 04/11 levofloxacin 18173911339 Narendra Ricardo MD HYDROCHLOROTHIAZIDE 25 MG TABS once a day hydrochlorothiaz i de 31718914015 Narendra Ricardo MD POTASSIUM CHLORIDE ER 10 MEQ CR-CAPS twice a day 11/23 potassium chloride 40520224393 Narendra Ricardo MD TIOTROPIUM BROMIDE MONOHYDRATE once a day 10/09 SPIRIVA HANDIHALER Narendra Ricardo MD ASPIRIN 325 MG TABS once a day 10/09 aspirin 10486771133 Narendra Ricardo MD GLIPIZIDE 10 MG TABS once a day 04/11 glipizide 66548779799 Narendra Ricardo MD CO Q-10 300 MG CAPS once a day coenzyme q10 0189 9539426 Narendra Ricardo MD IRBESARTAN 300 MG TABS twice a day irbesartan 55529701591 Narendra Ricardo MD THIAMINE HCL once a day 10/09 THIAMINE Narendra Ricardo MD DONEPEZIL HCL 5 MG TABS 04/11 donepezil 95157924509 Narendra Ricardo MD NYSTATIN 175126 UNIT/GM CREA 2-3X/Day 04/11 nystatin 05463266197 Narendra Ricardo MD CLONIDINE HCL 0.3 MG TABS three times a day 04/11 clonidine hcl 81768283376 Narendra Ricardo MD ALBUTEROL SULFATE HFA 108 (90 Base) MCG/ACT AERS every four hours as needed 10/09 albuterol sulfate 63669882357 Narendra Ricardo MD FUROSEMIDE 20 MG TABS once a day 04/11 furosemide 22759563764 Narendra Ricardo MD CLOPIDOGREL BISULFATE 75 MG TABS once a day 04/11 clopidogrel 37250662751 Narendra Ricarod MD INSULIN ISOPHANE twice a day 10/09 HUMAN Narendra Ricardo MD TEMAZEPAM 30 MG CAPS Bedtime 10/09 temazepam 26400597198 Narendra Ricardo MD NAPROXEN SODIUM 220 MG TABS twice a day 04/11 naproxen sodium 43559664150 Narendra Ricardo MD BUMETANIDE 0.5 MG TABS twice a day 04/11 bumetanide 43403836188 Narendra Ricardo MD HYDROCODONE-ACETAMIN OPHEN 5-325 MG TABS every six hours as needed 10/09 hydrocodone-aceta minophen 03892144948 Narendra Ricardo MD WARFARIN SODIUM 1 MG TABS once a day 04/11 warfarin 08343316156 Narendra Ricardo MD FLUTICASONE PROPIONATE HFA 10/09 FLOVENT HFA Narendra Ricardo MD HYDROCHLOROTHIAZIDE 25 MG TABS once a day 10/09 hydrochlorothiazi de 92338413144 Narendra Ricardo MD DONEPEZIL HCL 10 MG TABS Take 1 tablet by mouth once a day 04/11 donepezil 89974610289 Narendra Ricardo MD DONEPEZIL HCL 5 MG TABS 04/11 donepezil 18669147100 Narendra Ricardo MD METFORMIN HCL 500 MG TABS 10/09 metformin 36228105331 Narendra Ricardo MD LANTUS SOLOSTAR 100 UNIT/ML SOPN insulin glargine 35893467583 Samira Ricardo MD POTASSIUM CHLORIDE ER 10 MEQ CR-TABS 10/09 potassium chloride 88648529038 Narendra Ricardo MD FLUOXETINE HCL 10 MG CAPS fluoxetine 57883856328 Narendra Ricardo MD DIAZEPAM 5 MG TABS One tab po 30min before scan. July repeat x 1. 07/23 DIAZEPAM 00209252844 Narendra Ricardo MD WARFARIN SODIUM 1 MG TABS Daily 04/11 WARFARIN SODIUM 1 MG ORAL TABLET 75896805313 System Maintenance VALSARTAN (DIOVAN) 160 MG TAB, [...] Bedtime 04/11 TEMAZEPAM 30 MG ORAL CAPSULE 54398629575 System Maintenance SENNOSIDES 8.6 MG TABS Twice A Day as needed 04/11 SENNOSIDES, SENIOR LIVING 8.6 MG ORAL TABLET 78942885422 System Maintenance POTASSIUM CHLORIDE ER 10 MEQ CR-CAPS Twice A Day 11/23 POTASSIUM CHLORIDE 10 MEQ EXTENDED RELEASE ORAL CAPSULE 98764605220 System Maintenance NYSTATIN 544327 UNIT/GM CREA 2-3X/Day 11/21 NYSTATIN 126758 UNT/ML TOPICAL CREAM 31463447939 System Maintenance NAPROXEN SODIUM 220 MG TABS Twice A Day 04/11 NAPROXEN SODIUM 220 MG ORAL TABLET 79316638359 System Maintenance LEVOFLOXACIN 500 MG TABS null 04/11 LEVOFLOXACIN 500 MG ORAL TABLET 92663379270 System Maintenance IRBESARTAN 300 MG TABS Twice A Day 04/11 IRBESARTAN 300 MG ORAL TABLET 02271924724 System Maintenance INSULIN ISOPHANE (HUMAN) (NOVOLIN N RELION) RELION INJ, 15-25 UNIT SUBCUTANEOUSL Twice A Day 04/11 INSULIN HUMAN, ISOPHANE 100 UNT/ML INJECTABLE SUSPENSION System Maintenance HYDROCHLOROTHIAZIDE 25 MG TABS Daily 04/11 HYDROCHLOROTHIAZI DE 25 MG ORAL TABLET 44613062333 System Maintenance HYDROCHLOROTHIAZIDE 25 MG TABS Daily 04/11 HYDROCHLOROTHIAZI DE 25 MG ORAL TABLET 07213359099 System Maintenance GLIPIZIDE 10 MG TABS Daily 04/11 GLIPIZIDE 10 MG ORAL TABLET 96287623565 System Maintenance FUROSEMIDE 20 MG TABS Daily 04/11 FUROSEMIDE 20 MG ORAL TABLET 93779551236 System Maintenance FLUTICASONE PROPIONATE HFA (FLOVENT HFA) 220 MCG/ACT AER 04/11 120 ACTUAT FLUTICASONE PROPIONATE 0.22 MG/ACTUAT METERED DOS System Maintenance B-12 500 MCG TABS Daily 04/11 VITAMIN B 12 0.5 MG ORAL TABLET 89206493658 System Maintenance CO Q-10 300 MG CAPS Daily 04/11 COENZYME Q10 300 MG ORAL CAPSULE 57550231954 System Maintenance CLOPIDOGREL BISULFATE 75 MG TABS Daily 04/11 CLOPIDOGREL 75 MG ORAL TABLET 48044622211 System Maintenance CLONIDINE HCL 0.3 MG TABS Three Times A Day 04/11 CLONIDINE HYDROCHLORIDE 0.3 MG ORAL TABLET 60302824222 System Maintenance BUMETANIDE 0.5 MG TABS Twice A Day 04/11 BUMETANIDE 0.5 MG ORAL TABLET 67137084936 System Maintenance BISACODYL LAXATIVE 10 MG SUPP Daily as needed 04/11 BISACODYL 10 MG RECTAL SUPPOSITORY 13613919969 System Maintenance ASPIRIN 325 MG TABS Daily 04/11 ASPIRIN 325 MG ORAL TABLET 44991767788 System Maintenance ALBUTEROL SULFATE HFA 108 (90 Base) MCG/ACT AERS Every 4 Hours as needed 04/11 200 ACTUAT ALBUTEROL 0.09 MG/ACTUAT METERED DOSE INHALER 93279285521 System Maintenance HYDROCODONE-ACETAMIN OPHEN 5-325 MG TABS Every 6 Hours as needed 04/11 ACETAMINOPHEN 325 MG / HYDROCODONE BITARTRATE 5 MG ORAL TABL 67190359653 System Maintenance Medications Administered No information available. 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 Replaced Document: (P) T4, F REE, TSH, VITAMIN B12 B-12 * pg/mL Cobalamin (Vitamin B12) [Mass/volume] in Serum or Plasma TSH 1.75 u[iU]/mL 0.40-4.50 N Thyrotropi n [Units/volume] in Serum or Plasma FRT4 1.0 0.8-1.8 N FREE T4 Internal Other: Verbal Autho rization/Emergency Contact - OBS VERBAL_EMER DONE Verbal authorization and emergency contact External Correspondence: [facility] Directive/Healthcare power of regulatory attorney - OBS AD DISCUSSED Advanced care planning discussed Advanced directive discussed w/member/caregive r; Patient received counseling regarding palliation - symptom management - end of life decisions Office Visit: Office Visit f ax DEMENTIA2 Assessment of cognition performed and results reviewed. Total score [MMSE] [id number] Mild Total scor e [MoCA] MMSE SCORE [...] Detail Appointment 01:00 PM Laila Larkin PA-C, [address] [place] [address], [address], [place], [address], Pending order Follow up DOUGLAS Pending order [...] Name Date Entry Date ORDERS Follow up [facility]-[id number] Documentation of current medicatio ns [facility]-[id number] Documentation of current medicatio ns ORDERS Patient Instructions ORDERS Patient Instructions LOINC 13862-6 MMSE ORDERS Follow up DOUGLAS ORDERS Patient Instructions SCT-[id number] Documentation of current medicatio ns ORDERS Follow up LOINC 97792-4 MMSE ORDERS Obtain outside records 04/11 ORDERS Follow up DOUGLAS in clinic or telemedicine 2 LOINC 69570-2 MMSE ORDERS Patient Instructions SCT-[id number] Documentation of current medicatio ns ORDERS Patient Instructions ORDERS Occupational Therapy SCT-[id number] Documentation of current medicatio ns CPT-86210 Free Service ORDERS Follow up telemedicine 11/28 ORDERS Neuropsychology Evaluation 2 ORDERS Patient Instructions [facility]-[id number] Documentation of current medicatio ns ORDERS Follow up ORDERS Patient Instructions ORDERS Patient Instructions SCT-[id number] Documentation of current medicatio ns ORDERS Follow up DOUGLAS SCT-[id number] Consult SCT-[id number] Documentation of current medicatio ns ORDERS Patient Instructions ORDERS Follow up CPT-96242 Npsy Interp/Rpt by Provider - 1st hour 20 29/03/06 ORDERS Neuropsych Testing 0 CPT-59979 Npsy Interview w/Provider - 1st hour 2018 CPT-00374 Npsy Interp/Rpt by Provider - 1st hour 20 26/02/04 CPT-31906 Npsy Interp/Rpt by Provider - 2 hours 201 11/20/03 CPT-90020 Npsy Test by Tech (2+ Tests) - 1st 30 min CPT-41572 Npsy Test by Tech (2+ Tests) - 1.5 hours CPT-88084 MRI Brain W/O [id number] MRI-Brain W/O [facility]-[id number] Documentation of current medicatio ns ORDERS Patient [...]
--- OUTSIDE RECORDS SUMMARY | 2024-07-10 16:39 | XMS_ITS | Clinical Summary ---
Author Organization [facility] Address [address] [place] [address] Care Team Providers Care Director Of Outreach Name Role Phone Zahira Feldman MD Unavailable + [facility] Unavailable Darlene Mendoza MD Primary Care Provider [phone] Allergies Active Allergy Reactions Criticality Noted Date [...] in an abandoned building, in an overnight intermediate, or couch-surfing.) Yes 12/10/2023 Are you worried [...] on file Legal Sex Female 3:23 AM [employer] Gender Identity Not on file Sexual Orientation [...] Age-related physical debility Atherosclerotic heart disease of [place] coronary artery without angina pectoris Unspecified atrial [...] Age-related physical debility Atherosclerotic heart disease of [place] coronary artery without angina pectoris Unspecified atrial [...] Age-related physical debility Atherosclerotic heart disease of [place] coronary artery without angina pectoris Unspecified atrial [...] Age-related physical debility Atherosclerotic heart disease of [place] coronary artery without angina pectoris Unspecified atrial [...] Age-related physical debility Atherosclerotic heart disease of [place] coronary artery without angina pectoris Unspecified atrial [...] FREE T4 REFLEX STAT 04/07/2020 1:59 PM [employer] COLONOSCOPY Routine 04/15/2019 11:47 AM [employer] OCCULT BLOOD STOOL STAT 04/12/2019 3: 27 PM [employer] LIPID PROFILE Timed 04/20/2010 6:16 AM [employer] EYE EXAM - HIM SCAN 12/18/2005 1 2:00 AM CDT C MAMMOGRAM, SCREENING Routine 04/08/2003 1:03 PM [employer] Screening Mamm-Mailg Neopl-Other C FOOT EXAM Routine 03/30/2003 5:13 PM [employer] Diabetes Uncompl Adult-Type Ii from Last 3 Months or Most Recently Relevant to Health Maintenance Results * Trip Charge - LAB ONLY (06/04/2024 10:51 AM CDT) Other TOPOGRAPHY UNKNOWN / Unknown Billing only / Unknown 06/04/2024 10:51 AM CDT 06/04/2024 2:32 PM CDT us Margaux Talbot PA-C LAB CHARGE PERFORMABL ES Final Result [facility] [address] [place] [address], [facility] * Basic Metabolic Panel No Glucose (OUTREACH) [...] BLOOD ORDERABLE S Final Result U LABORATORY [facility] [place] [facility] [address] [facility] [facility], [address] * Glucose (OUTREACH) (06/04/2024 10:51 AM CDT) Glucose 79 70 - 99 mg/dL 06/04/2024 6:33 PM CDT [facility] Blood STRUCTURE OF LEFT UPPER LIMB / Unknown Venipuncture / Unknown 06/04/2024 10:51 AM CDT 06/04/2024 2:32 PM CDT us Margaux Talbot PA-C LAB - BLOOD ORDERABLE S Final Result [facility] [place] [facility] [address] [facility], [address] * (ABNORMAL) Hemoglobin A1c (06/04/2024 10:51 [...] BLOOD ORDERABLE S Final Result [facility] [place] [facility] [address] [facility], [address] [place] [id number] * (ABNORMAL) CBC with platelets (06/04/2024 10:51 [...] BLOOD ORDERABLE S Final Result [facility] [place] [facility] [address] [facility] [address], [address] [place] [phone] * (ABNORMAL) UA with Microscopic (05/30/2024 10:45 [...] 05/31/2024 8:49 AM CDT [facility] Specific [place] Urine 1.012 1.003 - 1.035 05/31/2024 8:49 [...] URINE ORDERABLE S Final Result [facility] LABORAT[facility] Lab [address] [facility], [address] [place], [place] [address] * (ABNORMAL) Urine Culture (05/30/2024 10:45 AM [...] O RDERABLES Final Result [facility] IDD [facility]ORAT[facility] Di[facility]. Lab [address] [facility], [address] [place] [address] * (ABNORMAL) Basic metabolic panel (12/11/2023 7:08 AM CDT) [facility] Signature Sodium 137 135 - 145 mmol/L [...] - BLOOD ORDERABLES Fi nal Result LABORATORY [facility] Lab [address] (1st floor, no room number) [place] [phone] [place] [address] * Hepatic function panel (12/09/2023 10:08 PM [...] CDT 12/09/2023 10:26 PM CDT us Austin Raerdon MD LAB - BLOOD ORDERABLES Final R esult [facility] Lab [address] (1st floor, no room number) [place] [address] * TSH with free T4 reflex (04/07/2020 1:59 PM [employer]) TSH 1.10 0.40 - 4.00 mU/L 04/07/2020 2:42 PM [employer] [facility] Blood specimen (specimen) 04/07/2020 1:59 PM [employer] 04/07/2020 2:11 PM [employer] us Austin Mccarty PA-C LAB - BLOOD ORDERABLES Final Re sult [facility] [address] [place] [address], [facility] [phone] * COLONOSCOPY (04/15/2019 11:47 AM [employer]) COLONOSCOPY [facility] Patient Name: Alyx Sarmiento Procedure Date: 04/15/2019 [...] # [id number], [place] # [id number], SN # [id number] was introduced through the anus and advanced [...] Interventional Radiology Procedure Code(s): --- Professional --- 57767, Colonoscopy, flexible; diagnostic, including collection of specimen(s) by brushing or washing, when performed (separate procedure) CPT copyright 2018 [employer]. All rights reserved. The codes documented in this report are preliminary and upon report programmer review may be revised to meet current [...] PM RADIOLOGY RESULTS 04/15/2019 11:4 7 AM [employer] Dina Johnson MD PROCEDURES Final R esult RADIOLOGY RESULTS * (ABNORMAL) Occult blood stool (04/12/2019 3:27 PM [employer]) Occult Blood Positive(A ) NEG^Negati ve 04/12/2019 3:46 PM [employer] [facility] Comment: Called to AGUSTIN DELANEY (LIBIA) ON 04.12.19 AT 1546 BY KV 04/12/2019 3:27 PM [employer] 04/12/2019 3:40 PM [employer] us Arley Ham MD LAB - STOOLS ORDERABLES Edited Result - Final Performing Organization Address [facility] Co de Phone Number [facility] [address] [place] [address], [facility] [phone] * (ABNORMAL) Lipid panel (04/20/2010 6:16 AM [employer]) Cholesterol 160 0 - 200 mg/dL MISYS [...] 0.0 - 5.0 MISYS 04/20/2010 6:16 AM [employer] 04/20/2010 7:00 AM [employer] us Pilo Ortiz DO LAB - BLOOD ORDERABLES Fin al Result MISYS * EYE EXAM - HIM SCAN (12/18/2005 12:00 AM CDT) 12/18/2005 us Provider Outside OTHER Final Result * MAMMOGRAM, SCREENING (04/08/2003 1:03 PM [employer]) MAMMOGRAM Anatomical Region Laterality Modality Mammography Impressions 04/08/2003 1:03 PM [employer] RADIOLOGIST'S INTERPRETATION: Breast parenchyma: fatty/mild densities IMAGING IMPRESSION: (CATEGORY-1) NEGATIVE Radiologist: Spencer Frye Apr Electronically filed by Kathleen Harrington 04/13/2003 2:52 PM Petr Lindquist MD SPECIAL IMAGING STUDIES Final R esult from Last 3 Months or Most Recently Relevant to Health Maintenance Insurance [facility] MEDICARE ADVANTAGE BCBS MEDICARE ADVANTAGE BCBS MEDICARE ADVANTAGE Advance Directives For more information, please contact: [phone] Documents on File Type Date Recorded Patient 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 Care Teams Director Of Outreach Relationship Specialty Start Date End Date Darlene Mendoza MD [facility] [address] [place] [address] PCP - General Family Medicine 07/19/22 Zahira Feldman MD [address] [place] [address] Ophthalmology 10/13/17 [facility], [address] [phone] 07/17/22 [facility] 07/15/22
--- OUTSIDE RECORDS SUMMARY | 2024-07-10 16:39 | XMS_ITS | Data Portability ---
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 Plan of Treatment Reminders Order Date Submit Date Provider Last Modified By Organization Details Last Modified Time Details Appointments None recorded. Lab urinalysis , dipstick 2023 024 [facility], [address] [place], [address], 4 15:42:13 urinalysis , dipstick 2022 023 [facility], [address], [address], [place], [address], 3 14:52:30 urinalysis , dipstick 2021 022 [email or web address] [facility], [address], [address], [place], [address], 2 15:00:59 Referral None recorded. Procedures bladder scan (PROC) 2022 023 [facility], [address], [address], [place], [address], 14:52:32 Surgeries None recorded. Imaging None recorded. Medication Orders None recorded. Patient TargetsNo targets recorded. Patient Instructions Encounter Date Encounter Id Patient Instructions Last Modified By Organization Details Last Modified Time 10/30/2021 [id number] will restart on gemtesa. plan recheck in 3 months. [email or web address] Not available 10/30/2021 15:08:56 01/29/2022 [id number] will continue on gemtesa samples. rtc 3 months. [email or web address] Not available 01/29/2022 12:05:53 10/17/2022 [id number] willt ry startin g her on oxybutynin ER 10mg daily and plan recheck in 2 months for SE's and effectiveness. rx sent on paperwork for the [place] facility [email or web address] Not available 10/17/2022 11:10:27 01/28/2023 [id number] will set her up for UDS in [place]. [email or web address] Not available 01/28/2023 14:52:27 Reason for Referral None Reported. Results Created Date Observation Date Name Description Value Unit Range Abnormal Flag Note LastModifiedBy Organization Detail LastModifiedTime 10/31/19 22 10/30/2021 urina lysis , dipst ick pH-Status 7.0 Not Available [address] [facility], [place], [address], 10/30/2021 15:00:30 10/31/19 22 10/30/2021 urina lysis , dipst ick Leuko-Status Small Not Available [address], [place], [address], 10/30/2021 15:00:30 01/29/20 23 01/28/2023 bladd er scan (PROC ) Volume (in mL) 0ml Not Available [address], [place], [address], 01/28/2023 14:44:33 01/29/20 23 01/28/2023 urina lysis , dipst ick pH-Status 7.0 Not Available [facility] [address], [place], [address], 01/28/2023 14:44:31 01/29/20 23 01/28/2023 urina lysis , dipst ick Leuko-Status Trace Not Available [facility] [address], [place], [address], 01/28/2023 14:44:31 03/26/19 24 03/26/2023 urina lysis , dipst ick Color-Status Yellow Not Available [facility] [address], [place], [address], 03/26/2023 15:41:09 03/26/19 24 03/26/2023 urina lysis , dipst ick Clarity-Stat us Clear Not Available [facility] [address], [place], [address], 03/26/2023 15:41:09 03/26/19 24 03/26/2023 urina lysis , dipst ick Glucose-Stat us Negati ve Not Available [facility] [address], [place], [address], 03/26/2023 15:41:09 03/26/19 24 03/26/2023 urina lysis , dipst ick Bilirubin-St atus Negati ve Not Available [facility] [address], [place], [address], 03/26/2023 15:41:09 03/26/19 24 03/26/2023 urina lysis , dipst ick Ketones-Stat us Negati ve Not Available [facility] [address], [place], [address], 03/26/2023 15:41:09 03/26/19 24 03/26/2023 urina lysis , dipst ick Sp Denver-Stat us 1.020 Not Available [facility] [address], [place], [address], 03/26/2023 15:41:09 03/26/19 24 03/26/2023 urina lysis , dipst ick pH-Status 7.0 Not Available [facility] [address], [place], [address], 03/26/2023 15:41:09 03/26/19 24 03/26/2023 urina lysis , dipst ick Urobilinogen -Status 0.2 Not Available [facility] [address], [place], [address], 03/26/2023 15:41:09 03/26/19 24 03/26/2023 urina lysis , dipst ick Nitrates-Sta tus negati ve Not Available [facility] [address], [place], [address], 03/26/2023 15:41:09 03/26/19 24 03/26/2023 urina lysis , dipst ick Blood-Status Trace Not Available [facility] [address], [place], [address], 03/26/2023 15:41:09 03/26/19 24 03/26/2023 urina lysis , dipst ick Leuko-Status Negati ve Not Available [facility] [address], [place], [address], 03/26/2023 15:41:09 03/26/19 24 03/26/2023 urina lysis , dipst ick Specimen Type Voided Not Available [facility] [address], [place], [address], 03/26/2023 15:41:09 11/01/19 22 10/30/2021 bladd er [...] Organization Details Recorded Time Overactive urinary bladder 280251624 Active 022 Favio Montalvo MD [address] [place] [address],[address] [place] [address], [address], [facility] 12:03:28 Problem Notes None recorded. Procedures Surgical History Date Name Laterality Status Provider Name and Address Organization Details Recorded Time 03/26/19 24 Urodynamic Studies completed Giovanna Bolivar [facility] 03/26/2023 15:42:26 01/29/20 23 Bladder Scan completed Mario Renee [facility] 01/28/2023 14:44:23 10/18/19 23 Bladder Scan completed Lisa Bui [facility] 10/17/2022 10:45:47 01/30/20 22 Bladder Scan completed Favio Monatlvo MD [address] [place] [address],[address], [place], [address], [facility] 01/29/2022 11:58:31 10/31/19 22 Bladder Scan completed Favio Montalvo MD [address] [place] [address],[address], [place], [address], [facility] 10/30/2021 15:00:24 08/22/19 22 Bladder Scan completed Favio Montalvo MD [address] [place] [address],[address], [place], [address], [facility] 08/21/2021 14:33:40 07/06/19 22 Bladder Scan completed Kristi Lloyd [facility] 07/05/2021 12:34:16 Total Hysterectomy completed Kristi Lloyd [facility] 07/05/2021 12:34:29 Cataract Surgery completed Kristi Tovaru [facility] 07/05/2021 12:34:36 Orthopedic Surgery completed Kristi Lloyd [facility] 07/05/2021 12:34:45 Imaging Results Imaging Date Name [...] Name and Address Organization Details Recorded Time 285846 amlodipin e medicatio n Not available Not available Not available 03/26/2023 38669 [facility] 13:42:36 816451 azithromy lalo medicatio n Not available Not available Not available 03/26/2023 46234 [facility] 13:42:44 915243 furosemid e medicatio n Not available Not available Not available 03/26/2023 4603 [facility] 13:42:50 498607 insulin detemir medicatio n Not available Not available Not available 03/26/2023 19922 5 [facility] 13:42:57 566870 metformin medicatio n Not available Not available Not available 03/26/2023 6809 [facility] 13:43:06 052998 metoprolo l Not available Not available Not available Not available 03/26/2023 6918 [facility] 13:43:15 587013 naproxen medicatio n Not available Not available Not available 03/26/2023 7258 [facility] 13:43:22 372839 sitaglipt in medicatio n Not available Not available Not available 03/26/2023 22384 1 RxNorm Giovanna sheth, [facility] 4 13:43:40 604488 exenatide medicatio n Not available Not available Not available 03/26/2023 25287 RxNorm Giovanna sheth, [facility] 4 13:43:47 485988 levofloxa lalo medicatio n Not available Not available Not available 03/26/2023 88804 RxNorm Giovanna sheth, [facility] 4 13:43:55 647228 clopidogr el medicatio n Not available Not available Not available 03/26/2023 06253 RxNorm Giovanna sheth, [facility] 4 13:44:08 798527 losartan medicatio n Not available Not available Not available 03/26/2023 35471 RxNorm Giovanna sheth, [facility] 4 13:44:19 311549 Product containin g penicilli n (product) medicatio n Not available Not available Not available 03/26/2023 12136 8001 SNOMED Giovanna sheth, [facility] 4 13:44:25 323323 lisinopri l medicatio n Not available Not available Not available 03/26/2023 93906 RxNorm Giovanna sheth, [facility] 4 13:44:30 839180 pioglitaz one medicatio n Not available Not available Not available 03/26/2023 65241 RxNorm Giovanna sheth, [facility] 4 13:44:41 564224 simvastat in medicatio n Not available Not available Not available 03/26/2023 74786 RxNorm Giovanna sheth, [facility] 4 13:44:47 Medications Name Sig Start Date Stop Date [...] Available pen needle, diabetic 31 gauge x 07/23 USE 1 ONCE DAILY active Not Available [...] AutoShield Duo Pen Needle 30 gauge x 16 USE TO INJECT INSULIN DAILY DIRECTED active [...] Updated DateTime 10/30/2021 172.72 cm 33.5 kg/m2 28728.32 g Favio Montalvo MD [address] [place] [address],[address] [address] [place] [address] 10/30/2021 14:59:44 Date Recorded Body height Body mass index (BMI) Body weight Provider Name and Address Organization Details Last Updated DateTime 01/29/2022 172.72 cm 32.2 kg/m2 94162.58 g Favio Montalvo MD [address] [place] [address],[facility] [address] [address], [facility] 01/29/2022 11:57:56 Date Recorded Body height Body mass index (BMI) Body weight Provider Name and Address Organization Details Last Updated DateTime 10/17/2022 172.72 cm 32.2 kg/m2 21053.58 g Lisa Hao [facility] 10/17/2022 10:45:30 Date Recorded Body height Body mass index (BMI) Body weight Provider Name and Address Organization Details Last Updated DateTime 01/28/2023 172.72 cm 32.2 kg/m2 58685.58 g Mario Renee [facility] 01/28/2023 14:43:47 Social History Question Answer Notes LastModified by Organizat ion Details LastModified Time Tobacco Smoking Status Former Smoker Favio Montalvo MD [address] [place] [address],[address], [address], [facility] 07/05/2021 12:28:26 What Is Your Level Of Alcohol Consumption? Occasional Information not available 08/21/2021 What Is Your Level Of Caffeine Consumption? Occasional [email or web address] Information not available 08/21/2021 When Did You Quit Smoking? [email or web address] rodriguez [email or web address] Information not available 07/05/2021 What Was The Date Of Your Most Recent Tobacco Screening? 07/05/2021 [email or web address] Information not available 07/05/2021 Has Tobacco Cessation Counseling Been Provided? No [email or web address] Information not available 07/05/2021 Do You Or Have You Ever Used Any Other Forms Of Tobacco Or Nicotine? No [email or web address] Information not available 07/05/2021 Sex: Unknown Functional [...] trivalent, PF 6 completed Favio Montalvo MD [address] [place] [address],[address], [address], [facility] 07/05/2021 12:25:26 Influenza, split virus, trivalent, preservative 4 completed Favio Montalvo MD [address] [place] [address],[address], [address], [facility] 07/05/2021 12:25:26 zoster recombinant 9 completed Favio Montalvo MD [address] [place] [address],[address], [address], [facility] 07/05/2021 12:25:27 influenza, unspecified formulation 9 completed Favio Montalvo MD [address] [place] [address],[address], [address], [facility] 07/05/2021 12:25:27 zoster recombinant 0 completed Favio Montalvo MD [address] [place] [address],[address], [address], [facility] 07/05/2021 12:25:27 Influenza, split virus, trivalent, preservative 4 completed Favio Montalvo MD [address] [place] [address],[address], [address], [facility] 07/05/2021 12:25:27 Influenza, recombinant, quadrivalent, PF 9 completed Favio Montalvo MD [address] [place] [address],[address] [place], [address], [facility] 07/05/2021 12:25:27 COVID-19, mRNA, LNP-S, PF, 30 mcg/0.3 mL dose 1 completed Favio Montalvo MD [address] [place] [address],[address], [place], [address], [facility] 07/05/2021 12:25:27 pneumococcal polysaccharide PPV23 2 completed Favio Montalvo MD [address] [place] [address],[facility] [address], [place], [address], [facility] 07/05/2021 12:25:27 Td (adult), 2 Lf tetanus toxoid, preservative free, adsorbed 4 completed Favio Montalvo MD [address] [place] [address],[facility] [address], [place], [address], [facility] 07/05/2021 12:25:27 Influenza, high-dose, trivalent, PF 5 completed Favio Montalvo MD [address] [place] [address],[facility] [address], [place], [address], [facility] 07/05/2021 12:25:27 pneumococcal polysaccharide PPV23 7 completed Favio Montalvo MD [address] [place] [address],[facility] [address], [place], [address], [facility] 07/05/2021 12:25:27 Pneumococcal conjugate PCV 13 5 completed Favio Montalvo MD [address] [place] [address],[facility] [address], [place], [address], [facility] 07/05/2021 12:25:27 Influenza, split virus, quadrivalent, PF 0 completed Favio Montalvo MD [address] [place] [address],[facility] [address], [place], [address], [facility] 07/05/2021 12:25:27 Influenza, adjuvanted, trivalent, PF 8 completed Favio Montalvo MD [address] [place] [address],[address], [place], [address], [facility] 07/05/2021 12:25:27 Influenza, split virus, trivalent, preservative 2 completed Favio Montalvo MD [address] [place] [address],[address], [place], [address], [facility] 07/05/2021 12:25:27 Td (adult), 2 Lf tetanus toxoid, preservative free, adsorbed 8 completed Favio Montalvo MD [address] [place] [address],[address], [address], [facility] 07/05/2021 12:25:27 Influenza, split virus, trivalent, preservative 3 completed Favio Montalvo MD [address] [place] [address],[address], [place], [address], [facility] 07/05/2021 12:25:27 pneumococcal polysaccharide PPV23 8 completed Favio Montalvo MD [address] [place] [address],[address], [place], [address], [facility] 07/05/2021 12:25:27 Influenza, adjuvanted, quadrivalent, PF 1 completed Favio Montalvo MD [address] [place] [address],[address], [place], [address], [facility] 07/05/2021 12:25:27 Influenza, split virus, trivalent, preservative 1 completed Favio Montalvo MD [address] [place] [address],[address], [place], [address], [facility] 07/05/2021 12:25:27 COVID-19, mRNA, LNP-S, PF, 30 mcg/0.3 mL dose 1 completed Favio Montalvo MD [address] [place] [address],[address], [place], [address], [facility] 07/05/2021 12:25:27 Influenza, adjuvanted, trivalent, PF 7 completed Favio Montalvo MD [address] [place] [address],[address], [place], [address], [facility] 07/05/2021 12:25:27 Hep A, adult 4 completed Favio Montalvo MD [address] [place] [address],[address], [place], [address], [facility] 07/05/2021 12:25:27 Td (adult), 5 Lf tetanus toxoid, preservative free, adsorbed 9 completed Favio Montalvo MD [address] [place] [address],[facility] [place] [address], [address], [facility] 07/05/2021 12:25:27 Influenza, split virus, trivalent, preservative 3 completed Favio Montalvo MD [address] [place] [address],[facility] [address], [place], [address], [facility] 07/05/2021 12:25:27 Td (adult), 2 Lf tetanus toxoid, preservative free, adsorbed 5 completed Favio Montalvo MD [address] [place] [address],[facility] [address], [place], [address], [facility] 07/05/2021 12:25:27 Influenza, split virus, trivalent, preservative 0 completed Favio Montalvo MD [address] [place] [address],[address], [address], [facility] 07/05/2021 12:25:27 COVID-19, mRNA, LNP-S, PF, 30 mcg/0.3 mL dose 1 completed Favio Montalvo MD [address] [place] [address],[address], [place], [address], [facility] 07/05/2021 12:25:27 COVID-19, mRNA, LNP-S, bivalent, PF, 30 mcg/0.3 mL dose 2 [facility] 12/06/2022 14:16:47 Past Encounters Encounter ID Performer Location Encounter Start Date Encounter Closed Date Diagnosis/Indication Diagnosis SNOMED-CT Code Diagnosis ICD10 Code Diagnosis Note [id number] Favio Montalvo MD [facility] [address] [place] [address] 07/05/2021 12:04:29 07/09/2021 13:18:18 Incontinence 61398892 R32 Urge incon tinence of urine 90762453 N39.41 [id number] Favio Montalvo MD [facility] [address] [facility] [place] [address] 08/21/2021 14:17:28 08/24/2021 16:43:35 Incontinence 24128183 R32 Increased frequency of urination 336919108 R35.0 [id number] Favio Montalvo MD [facility] [address] [place] [address],[place] [address] [place] [address] 10/30/2021 14:41:21 11/02/2021 12:36:58 Incontinence 25025075 R32 Overactive urinary bladder 487964310 N32.81 [id number] Favio Montalvo MD [facility] [address],[place] [address] [place] [address] 01/29/2022 11:43:59 02/04/2022 14:09:05 Overactive urinary bladder 641338118 N32.81 [id number] Favio Montalvo MD [facility] [address] [place] [address],[address] [facility] [place] [address] 10/17/2022 10:33:10 10/18/2022 16:52:40 Overactive urinary bladder 022602499 N32.81 [id number] Favio Montalvo MD [facility] [address],[place] [address] [place] [address] 01/28/2023 14:27:53 02/03/2023 13:20:07 Overactive urinary bladder 467432446 N32.81 [id number] Favio Montalvo MD [facility] [address] [facility] [place] [address] 03/26/2023 13:12:53 03/28/2023 11:30:16 Overactive urinary bladder 892309191 N32.81 Health Concerns Section Related Observation LastModified by Organization Detai ls LastModified Time None Recorded Concern Status LastModified by Organization Details LastModified Time None Recorded Advance Directives Directive None Recorded Payers Encounter Date Sequence Insurance Name Policy Number Policy Butts Covered Member ID Butts Member ID Guarantor Name 10/30/2021 1 [place] [id number] Alyx Sarmiento [id number] Alyx Sarmiento 01/29/2022 1 [place] [id number] Alyx Sarmiento [id number] Alyx Sarmiento 10/17/2022 1 [place] [id number] Alyx Sarmiento [id number] Alyx Sarmiento 01/28/2023 1 [place] [id number] Alyx Sarmiento [id number] Alyx Sarmiento 03/26/2023 1 [place] [id number] Alyx Sarmiento [id number] Alyx Sarmiento Notes Date Note Type Note Provider Name and Address Organization Details Recorded Time 10/30/2021 text/html follow up gemtesa. off med for two weeks but freq/urgency came back. UA bland and PVR 295ml today. Favio Montalvo MD [address] [place] [address],[address] [place] [address], [address], [facility] 10/30/2021 15:09:16 01/29/2022 text/html taking gemtesa and working well, out of samples. PVR 19ml today. Favio Montalvo MD [address] [place] [address],[address], [place], [address], [facility] 01/29/2022 12:06:07 10/17/2022 text/html follow up OAB. was on gemtesa which worked and now having more accidents. PVR 0ml today. now living a assisted care who manages meds etc. Favio Montalvo MD [address] [place] [address],[address], [address], [facility] 10/17/2022 11:10:30 01/28/2023 text/html follow up incontinence. tried gemtesa and now oxybutynin ER 10mg and neither worked. Mario sheth [facility] 01/28/2023 14:52:49 03/26/2023 text/html 88 YO F here for UDS testing- pt of TF [place] Enriquez - [facility] 03/26/2023 15:44:35 OBGyn Episode No OBEpisode recorded.
--- NOTE | 2024-07-10 17:01 | CRLHL7_ITS ---
For Patients: As a result of the Century Cures Act, medical imaging exams and procedure reports are released immediately into your electronic medical record. You may view this report before your referring provider. If you have questions, please contact your health care provider. INDICATION: .COUGH, RSV + HX OF CHEST MASS, RIB PAIN TECHNIQUE: CT chest was acquired with 75 cc Isovue 370 IV contrast. COMPARISON: June 2022. FINDINGS: Lungs and Airways: Motion throughout the exam. Mild interstitial edema. Expiratory imaging. Masslike consolidation in the right apex measuring 3.6 cm. A few additional scattered indeterminate pulmonary nodules. No endoluminal lesion. Heart and Mediastinum: Thyroid not visualized. No axillary or supraclavicular lymphadenopathy. No discrete lymphadenopathy. Cardiomegaly. Normal caliber aorta. Atherosclerotic and coronary artery calcifications. Pleura: The pleural spaces are normal. Abdomen: Calcified granulomas. Colonic diverticulosis. Chronic thickening of the adrenal glands. Bones and soft tissues: Bilateral shoulder arthroplasties. Old left-sided rib fractures. Old right-sided rib fractures. Old L1 vertebral body compression fracture. IMPRESSION: 1. Masslike consolidation in the right apex measuring 3.6 cm. A few additional scattered indeterminate pulmonary nodules. Findings may reflect multifocal infection. Recommend unenhanced chest CT in 3 months after appropriate therapy to document resolution and to assess malignant potential. 2. Cardiomegaly. Likely interstitial edema. Please note that all CT scans at this facility use dose modulation, iterative reconstruction, and/or weight-based dosing when appropriate to reduce radiation dose to as low as reasonably achievable. Dictated by Abram Lomeli MD @ 07/10/2024 7:15:08 PM (Electronically Signed)
--- NOTE | 2024-07-10 17:01 | CRLHL7_ITS ---
For Patients: As a result of the Century Cures Act, medical imaging exams and procedure reports are released immediately into your electronic medical record. You may view this report before your referring provider. If you have questions, please contact your health care provider. INDICATION: Fall. Facial lacerations by eye, fall and head injury TECHNIQUE: CT Head without i.v. contrast. Coronal and sagittal reformats were obtained. COMPARISON: None FINDINGS: CSF space: Unremarkable for age. Brain: No evidence of mass, acute infarction or hemorrhage is seen. No mass-effect or midline shift is seen. Mild diffuse cortical atrophy is noted. There is an arachnoid cyst present along the left temporal pole measuring 3.7 x 2.6 cm. Calvarium: The visualized paranasal sinuses are well aerated. The mastoid air cells are clear. The patient is status post prior bilateral cataract removal. The visualized orbits are grossly unremarkable. The calvarium is unremarkable in appearance with no fractures identified. Mild soft tissue swelling is present over the left frontal region. There is a soft tissue density along the left anterior vertex measuring 8 mm. IMPRESSIONS: 1. No evidence of acute infarction, intracranial hemorrhage, or mass-effect seen. 2. There is a soft tissue density along the left anterior vertex measuring 8 mm. Correlation with physical examination is recommended to exclude a foreign body. Dictated by Domingo Brice MD @ 07/10/2024 7:18:40 PM Please note that all CT scans at this facility use dose modulation, iterative reconstruction, and/or weight-based dosing when appropriate to reduce radiation dose to as low as reasonably achievable. Dictated by: Domingo Brice MD @ 07/10/2024 19:18:41 (Electronically Signed)
--- NOTE | 2024-07-10 17:04 | CRLHL7_ITS ---
For Patients: As a result of the Cures Act, medical imaging exams and procedure reports are released immediately into your electronic medical record. You may view this report before your referring provider. If you have questions, please contact your health care provider. INDICATION: Fall, cervical spine injury today TECHNIQUE: CT cervical spine without i.v. contrast. Coronal and sagittal reformats were obtained. COMPARISON: 12/08/2023 FINDINGS: The sensitivity and specificity of the exam are moderately limited by artifacts from patient motion. Alignment: Straightening of the cervical spine is noted. Bone: No acute fractures or aggressive bone lesions are identified. Disc: Severe degenerative disc narrowing is present at C4-5 through C6-7 without interval change. Fusion of the left C4-5 facet joint is noted. Scattered facet osteoarthritis is noted bilaterally. Soft tissue: The prevertebral soft tissues are unremarkable in appearance. The visualized lung apices and mediastinum are unremarkable. Bilateral calcified carotid plaques are noted. IMPRESSION: 1. No acute osseous injuries are identified. Dictated by Dmoingo Brice MD @ 07/10/2024 7:03:25 PM Please note that all CT scans at this facility use dose modulation, iterative reconstruction, and/or weight-based dosing when appropriate to reduce radiation dose to as low as reasonably achievable. Dictated by: Domingo Brice MD @ 07/10/2024 19:03:39 (Electronically Signed)
--- NOTE | 2024-07-10 17:25 | ED_ITS ---
HPI - Fall General Date Seen: 07/10/24 Chief Complaint: Fall/Minor Trauma Stated Complaint: fall Time Seen by Provider: 07/10/24 16:37 Source: patient, family, EMS, RN notes reviewed and old records reviewed Mode of arrival: EMS Limitations: no limitations History of Present Illness HPI Narrative: 89-year-old female presents here for evaluation after a fall that occurred at the skilled nursing she has now fallen 3 times the last 5 days, she developed RSV there. Onto her right side today well trying to get up from a chair. She sustained injury to her face, and her right side, she has picked up by EMS, they put her in a neck immobilizer and brought her here. She was triaged with right shoulder pain although her daughter and her both tell me she does not have shoulder pain. No loss of consciousness, she does have a history of dementia, falls previous stroke. She was given Toradol and droperidol IV in the ambulance. MD complaint: fall Onset (ago): minute(s) Fall from: chair Place fall occurred: home and skilled nursing/SNF Loss of consciousness: No Prolonged down time: no Symptoms prior to fall: none Context: tripped/slipped, recent illness and history of frequent falls Location of injury: head, face and chest Severity: moderate Associated symptoms (after fall): weakness Related Data Home Medications ?Medication ?Instructions ?Recorded ?Confirmed coenzyme Q10 300 mg capsule 300 mg PO DAILY 11/01/21 03/05/24 cyanocobalamin (vitamin B-12) 500 500 mcg PO DAILY 11/01/21 03/05/24 mcg tablet aspirin 81 mg tablet,delayed 81 mg PO QDAY 02/05/22 03/05/24 release albuterol sulfate 90 mcg/actuation See Rx Instructions .Route 06/26/22 03/05/24 aerosol inhaler .COMPLEX PRN calcium carbonate 1,000 mg PO QDAY 08/28/22 03/05/24 cholecalciferol (vitamin D3) 25 25 mcg PO QDAY 08/28/22 03/05/24 mcg (1,000 unit) capsule donepezil 10 mg tablet 10 mg PO QDAY 11/20/23 01/27/24 iron,carbonyl 65 mg-vitamin C 125 1 tab PO QDAY 11/20/23 03/05/24 mg tablet,delayed release (Vitron-C) Previous Rx's ?Medication ?Instructions ?Recorded fluticasone fur. 200 mcg-umeclid 1 inh inhalation Q24H #60 ea 11/14/21 62.5 mcg-vilant 25 mcg inhalat.powder (Trelegy Ellipta) irbesartan 300 mg tablet 150 mg (1/2 x 300 mg) PO BID #45 11/14/21 tabs donepezil 5 mg tablet 5 mg PO QDAY #90 tabs 12/12/21 fluoxetine 10 mg capsule 10 mg PO QDAY #90 caps 09/03/22 hydrochlorothiazide 25 mg tablet 25 mg PO QAM #90 tabs 09/03/22 acetaminophen 500 mg capsule 1,000 mg (2 x 500 mg) PO Q4-6H PRN 02/13/23 pain #30 caps quetiapine 25 mg tablet 25 mg PO QHS #30 tabs 07/18/23 oxybutynin chloride 10 mg 10 mg PO QDAY #30 tabs 07/24/23 tablet,extended release 24 hr iron,carbonyl 65 mg-vitamin C 125 1 tab PO .qod #90 tabs 08/21/23 mg tablet,delayed release (Vitron-C) insulin glargine 100 unit/mL (3 10 unit (0.1 mL) subcut .HS #15 mL 11/20/23 mL) subcutaneous pen (Lantus Solostar U-100 Insulin) blood sugar diagnostic (Contour #100 ea 01/21/24 Next Test Strips) Allergies Allergy/AdvReac Type Severity Reaction Status Date / Time amlodipine Allergy Severe Rash Verified 07/10/24 19:15 azithromycin Allergy Severe Limb pain, Verified 07/10/24 19:15 diarrhea furosemide Allergy Severe Hives Verified 07/10/24 19:15 metoprolol Allergy Severe Shortness Verified 07/10/24 19:15 of breath, chest pain, low pulse rate sitagliptin Allergy Severe Lost some Verified 07/10/24 19:15 sight in left eye exenatide Allergy Intermediate Sore Verified 07/10/24 19:15 throat, diarrhea, cough, headache levofloxacin Allergy Intermediate Bruising Verified 07/10/24 19:15 clopidogrel Allergy Mild Edema Verified 07/10/24 19:15 losartan Allergy Unknown Heart Verified 07/10/24 19:15 palpitations, shortness of breath penicillin V Allergy Unknown Verified 07/10/24 19:15 insulin detemir (From Allergy Verified 07/10/24 19:15 Levemir U-100 Insulin) metformin Allergy Verified 07/10/24 19:15 naproxen Allergy Verified 07/10/24 19:15 NSAIDS (Non-Steroidal Allergy Verified 07/10/24 19:15 Anti-Inflamma lisinopril AdvReac Severe Headaches, Verified 07/10/24 19:15 heart palpitations, muscle aches pioglitazone AdvReac Severe Hip and Verified 07/10/24 19:15 arm pain carvedilol AdvReac Mild Vomiting Verified 07/10/24 19:15 simvastatin AdvReac Unknown Fatigued Verified 07/10/24 19:15 Review of Systems Status of ROS: Reports: 10 or more systems reviewed and unremarkable except as noted in History and below [facility] Medical History Lung mass ?R91.8 - Other nonspecific abnormal finding of lung field (ICD-10) Living in assisted living ?Z78.9 - Other specified health status (ICD-10) Cellulitis, toe ?L03.039 - Cellulitis of unspecified toe (ICD-10) Falls ?R29.6 - Repeated falls (ICD-10) Pain in toe ?M79.676 - Pain in unspecified toe(s) (ICD-10) Iron deficiency anemia ?D50.9 - Iron deficiency anemia, unspecified (ICD-10) Dementia ?F03.90 - Unspecified dementia, unspecified severity, without behavioral disturbance, psychotic disturbance, mood disturbance, and anxiety (ICD-10) Anemia ?D64.9 - Anemia, unspecified (ICD-10) Wrist pain ?M25.539 - Pain in unspecified wrist (ICD-10) POLST (Physician Orders for Life-Sustaining Treatment) ?Z78.9 - Other specified health status (ICD-10) Visit for review of DEXA scan ?Z71.2 - Person consulting for explanation of examination or test findings (ICD-10) Rib fracture ?S22.39XA - Fracture of one rib, unspecified side, initial encounter for closed fracture (ICD-10) Atherosclerotic heart disease ?I25.10 - Atherosclerotic heart disease of [place] coronary artery without angina pectoris (ICD-10) Compression fracture Hearing loss ?H91.90 - Unspecified hearing loss, unspecified ear (ICD-10) 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 or stenosis of small artery (ICD-10) Diabetes mellitus, controlled ?E11.9 - Type 2 diabetes mellitus without complications (ICD-10) Encounter for medication review ?Z79.899 - Other custodial (current) drug therapy (ICD-10) Unintentional weight loss ?R63.4 - Abnormal weight loss (ICD-10) Hyperlipidemia ?E78.5 - Hyperlipidemia, unspecified (ICD-10) Depression ?F32.A - Depression, unspecified (ICD-10) Encounter for screening for severe acute respiratory syndrome coronavirus 2 (SARS-CoV-2) infection ?Z11.52 - Encounter for screening for COVID-19 (ICD-10) Edema ?R60.9 - Edema, unspecified (ICD-10) Diabetes mellitus ?E11.9 - Type 2 diabetes mellitus without complications (ICD-10) Surgical History 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 - Presence of right artificial shoulder joint (ICD-10) 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 (09/26/11) ?Z90.710 - Acquired absence of both cervix and uterus (ICD-10) ?Z90.722 - Acquired absence of ovaries, bilateral (ICD-10) ?Z90.79 - Acquired absence of other genital organ(s) (ICD-10) Status post reverse total replacement of left shoulder ?Z96.612 - Presence of left artificial shoulder joint (ICD-10) 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) ?Z96.651 - Presence of right artificial knee joint (ICD-10) History of partial surgical removal of colon (09/26/11) ?Z90.49 - Acquired absence of other specified parts of digestive tract (ICD- 10) History of colonoscopy ?Z98.890 - Other specified postprocedural states (ICD-10) History of cholecystectomy (09/26/11) ?Z90.49 - Acquired absence of other specified parts of digestive tract (ICD- 10) Family History Mother Family history of stroke or transient ischemic attack in mother Social History Narrative: advance directive in chart- 01/25/15 former cigarette smoker Smoking Status: Former smoker Do you use any of these nicotine containing products: None Second hand tobacco smoke exposure: No How often do you have a drink containing alcohol: 2-4 times a month How often do you have six or more drinks on one occasion: Never AUDIT-C Alcohol total score: 2 Non-prescribed substance use: denies use Exam Narrative: Exam Narrative: Patient is seen in room 7, she is speaking to me normally her eyes were initially close but they open normally, pupils are small rib but reactive to light, she tracks normally. She has abrasions over the left side of her head over her forehead, and her nose, and the top part of her head. TMs are normal bilaterally her neck is nontender, chest is good air entry bilaterally with a lot of upper airway sounds. Heart sounds no clicks murmurs or gallops her abdomen is soft and obese scars from previous surgery are noted. No CVA tenderness is noted, she has no tenderness over thoracic or lumbar regions. Along with her cervical spine, she moves all extremities independently well, scars from left shoulder surgery noted. But she moves her shoulders through full range of motion, and no complaints of tenderness when I squeeze the upper area of her upper arms or lower arms, her hips bilaterally have normal range of motion her pelvis is stable. Again he Const: Vital Signs, click to edit/add: Vital Signs - 24 hr 07/10/24 16:44 07/10/24 17:01 07/10/24 17:42 Temperature 97.5 F L Pulse Rate 110 H Pulse Rate [Pulse Oximeter] 103 H Respiratory Rate 20 20 Blood Pressure Blood Pressure [Le ft Upper Arm] 181/115 H Pulse Oximetry 93 90 93 Oxygen Delivery Me thod Room Air Room Air Oxygen Flow Rate 07/10/24 17:45 07/10/24 18:05 07/10/24 18:15 Temperature Pulse Rate 102 H 118 H 97 Pulse Rate [Pulse Oximeter] Respiratory Rate 8 L 43 H Blood Pressure Blood Pressure [Le ft Upper Arm] Pulse Oximetry 94 90 89 Oxygen Delivery Me thod Oxygen Flow Rate 07/10/24 18:36 07/10/24 18:45 07/10/24 18:47 Temperature Pulse Rate 105 H 98 116 H Pulse Rate [Pulse Oximeter] Respiratory Rate 12 16 13 Blood Pressure 166/121 H Blood Pressure [Le ft Upper Arm] Pulse Oximetry 89 89 89 Oxygen Delivery Me thod Room Air Oxygen Flow Rate 07/10/24 19:00 07/10/24 19:02 07/10/24 19:21 Temperature Pulse Rate 139 H 109 H 125 H Pulse Rate [Pulse Oximeter] Respiratory Rate 19 28 H 31 H Blood Pressure Blood Pressure [Le ft Upper Arm] Pulse Oximetry 88 93 95 Oxygen Delivery Me thod Nasal Cannula Oxygen Flow Rate 07/10/24 19:23 07/10/24 19:30 07/10/24 19:36 Temperature Pulse Rate 109 H 119 H Pulse Rate [Pulse Oximeter] Respiratory Rate 31 H 31 H Blood Pressure Blood Pressure [Le ft Upper Arm] Pulse Oximetry 95 95 97 Oxygen Delivery Me thod Nasal Cannula Nasal Cannula Oxygen Flow Rate 1 07/10/24 19:45 07/10/24 19:53 07/10/24 20:00 Temperature Pulse Rate 115 H 130 H 138 H Pulse Rate [Pulse Oximeter] Respiratory Rate 47 H 33 H 18 Blood Pressure 161/139 H Blood Pressure [Le ft Upper Arm] Pulse Oximetry 95 97 97 Oxygen Delivery Me thod Nasal Cannula Oxygen Flow Rate 07/10/24 20:02 07/10/24 20:15 Temperature Pulse Rate 164 H 124 H Pulse Rate [Pulse Oximeter] Respiratory Rate 35 H 24 Blood Pressure 158/135 H Blood Pressure [Le ft Upper Arm] Pulse Oximetry 95 96 Oxygen Delivery Me thod Nasal Cannula Oxygen Flow Rate Documenting provider has reviewed patient's vital signs: yes Course Course ED Course: I discussed with the patient the family, admission to the hospital and treatment for her possible pneumonia versus malignancy would be indicated, this was just discovered on her recent visit her RSV, she also needs oxygen, in the setting of this she is not on chronic oxygen. She is also an assisted living, and they will not be able to take care of her given her recent falls and injury noted for oxygen. She has polst also and reviewed we will honor this. I initially gave her ertapenem and spoke to hospitalist, she agreed to accept her to the hospital. Vital Signs Vital signs: Initial Vital Signs Temperature 97.5 F L 07/10/24 16:44 Temperature Source Temporal Artery Scan 07/10/24 16:44 Pulse Rate 103 H 07/10/24 16:44 Respiratory Rate 20 07/10/24 16:44 Blood Pressure 181/115 H 07/10/24 16:44 Blood Pressure Mean 137 H 07/10/24 16:44 Blood Pressure Position Supine 07/10/24 16:44 Pulse Oximetry 93 07/10/24 16:44 Oxygen Delivery Method Room Air 07/10/24 16:44 Vital Signs Temperature 97.5 F L 07/10/24 16:44 Pulse Rate 103 H 07/10/24 16:44 Respiratory Rate 20 07/10/24 16:44 Blood Pressure 181/115 H 07/10/24 16:44 Pulse Oximetry 93 07/10/24 16:44 Oxygen Delivery Method Room Air 07/10/24 16:44 Temperature 97.5 F L 07/10/24 16:44 Pulse Rate 124 H 07/10/24 20:15 Respiratory Rate 24 07/10/24 20:15 Blood Pressure 158/135 H 07/10/24 20:02 Pulse Oximetry 96 07/10/24 20:15 Oxygen Delivery Method Nasal Cannula 07/10/24 20:02 Oxygen Flow Rate 1 07/10/24 19:36 Medications Administered Medications: Discontinued Medications Generic Name Dose Route Start Last Admin Trade Name Freq PRN Reason Stop Dose Admin Ertapenem 1 gm/ Sodium 100 mls @ 200 mls/hr 07/10/24 19:32 07/10/24 20:26 Chloride IVPB 07/10/24 19:33 Infused ONCE ONE Infusion MDM - Fall MDM Narrative Medical decision making narrative: Life-threatening differential diagnosis is considered include: Subarachnoid hemorrhage, subdural hemorrhage, epidural hemorrhage. Other differential diagnosis considered include concussion, closed head injury, or neck fracture. To She does have also some right-sided chest tenderness in injury, given her falls and injury we will do a chest CT with IV contrast. Along like a head CT and a neck CT. Medical Records Attestation: I reviewed the patient's medical records. Lab Data Attestation: I reviewed the patient's lab results. Labs: Lab Results 07/10/24 Range/Units 17:22 WBC 4.26 L (4.50-11.00) K/uL RBC 4.78 (4.00-5.20) m/uL Hgb 15.0 (12.0-16.0) gm/dL Hct 46.7 (33.0-51.0) % MCV 98 (80-100) fL MCH 31 (26-34) pg MCHC 32 (32-36) gm/dL RDW Coeff of Brock 15.0 (11.5-15.5) % Plt Count 173 (140-440) K/uL Neut % (Auto) 74.4 H (42.0-72.0) % Lymph % (Auto) 15.5 L (20-44) % George % (Auto) 8.7 (0.0-11.0) % Eos % (Auto) 0.9 (0.0-7.0) % Baso % (Auto) 0.5 (0.0-3.0) % Neut # (Auto) 3.20 (1.7-7.0) K/uL Lymph # (Auto) 0.70 L (0.90-2.90) K/uL George # (Auto) 0.40 (0.00-0.90) K/UL Eos # (Auto) 0.00 (0.00-0.50) K/uL Baso # (Auto) 0.00 (0.00-0.30) K/uL Abs Immat Gran (auto) 0.00 (0.00-0.30) K/uL Imm/Tot Granulo (auto) 0.0 % Sodium 140 (135-149) mmol/L Potassium 3.7 (3.6-5.1) mmol/L Chloride 100 (96-114) mmol/L Carbon Dioxide 33 H (20-32) mmol/L Anion Gap 7 (7-15) mEq/L BUN 17 (7-30) mg/dL Creatinine 0.7 (0.5-1.5) mg/dL Estimated GFR 83 ml/min Glucose 121 H (60-115) mg/dL Calcium 9.5 (8.4-10.6) mg/dL Total Bilirubin 1.1 (0.1-1.5) mg/dL Direct Bilirubin 0.4 (0.0-0.5) mg/dL AST 37 H (12-35) U/L ALT 27 (4-35) U/L Alkaline Phosphatase 88 (40-150) U/L Troponin I 0.01 (0.01-0.04) ng/mL Total Protein 7.7 (6.0-8.3) g/dL Albumin 4.3 (3.3-5.0) g/dL Imaging Data CT scan - chest: Radiologist's impression: [address] [address] Diagnostic Imaging Report Patient: Alyx Sarmiento MR#: [id number] : 1935 Acct:[id number] Loc: ED Service Date: 07/10/[address]: Ordering Physician: Edin Su M.D. Date of Service: 07/10/24 Procedure(s): CT cervical spine wo con Accession Number(s): [id number] cc: Provider,Not a Local; Edin Su M.D.~ For Patients: As a result of the Cures Act, medical imaging exams and procedure reports are released immediately into your electronic medical record. You may view this report before your referring provider. If you have questions, please contact your health care provider. INDICATION: Fall, cervical spine injury today TECHNIQUE: CT cervical spine without i.v. contrast. Coronal and sagittal reformats were obtained. COMPARISON: 12/08/2023 FINDINGS: The sensitivity and specificity of the exam are moderately limited by artifacts from patient motion. Alignment: Straightening of the cervical spine is noted. Bone: No acute fractures or aggressive bone lesions are identified. Disc: Severe degenerative disc narrowing is present at C4-5 through C6-7 without interval change. Fusion of the left C4-5 facet joint is noted. Scattered facet osteoarthritis is noted bilaterally. Soft tissue: The prevertebral soft tissues are unremarkable in appearance. The visualized lung apices and mediastinum are unremarkable. Bilateral calcified carotid plaques are noted. IMPRESSION: 1. No acute osseous injuries are identified. Dictated by Domingo Brice MD @ 07/10/2024 7:03:25 PM Please note that all CT scans at this facility use dose modulation, iterative reconstruction, and/or weight-based dosing when appropriate to reduce radiation dose to as low as reasonably achievable. Dictated by: Domingo Brice MD @ 07/10/2024 19:03:39 (Electronically Signed)[address] [address] Diagnostic Imaging Report Patient: Alyx Sarmiento MR#: [id number] : 1935 Acct:[id number] Loc: ED Service Date: 07/10/[address]: Ordering Physician: Edin Su M.D. Date of Service: 07/10/24 Procedure(s): CT head/brain wo con Accession Number(s): [id number] cc: Provider,Not a Local; Edin Su M.D.~ For Patients: As a result of the Cures Act, medical imaging exams and procedure reports are released immediately into your electronic medical record. You may view this report before your referring provider. If you have questions, please contact your health care provider. INDICATION: Fall. Facial lacerations by eye, fall and head injury TECHNIQUE: CT Head without i.v. contrast. Coronal and sagittal reformats were obtained. COMPARISON: None FINDINGS: CSF space: Unremarkable for age. Brain: No evidence of mass, acute infarction or hemorrhage is seen. No mass-effect or midline shift is seen. Mild diffuse cortical atrophy is noted. There is an arachnoid cyst present along the left temporal pole measuring 3.7 x 2.6 cm. Calvarium: The visualized paranasal sinuses are well aerated. The mastoid air cells are clear. The patient is status post prior bilateral cataract removal. The visualized orbits are grossly unremarkable. The calvarium is unremarkable in appearance with no fractures identified. Mild soft tissue swelling is present over the left frontal region. There is a soft tissue density along the left anterior vertex measuring 8 mm. IMPRESSIONS: 1. No evidence of acute infarction, intracranial hemorrhage, or mass-effect seen. 2. There is a soft tissue density along the left anterior vertex measuring 8 mm. Correlation with physical examination is recommended to exclude a foreign body. Dictated by Domingo Brice MD @ 07/10/2024 7:18:40 PM Please note that all CT scans at this facility use dose modulation, iterative reconstruction, and/or weight-based dosing when appropriate to reduce radiation dose to as low as reasonably achievable. Dictated by: Domingo Brice MD @ 07/10/2024 19:18:41 (Electronically Signed)[address] [address] Diagnostic Imaging Report Patient: Alyx Sarmiento MR#: [id number] : 1935 Acct:[id number] Loc: ED Service Date: 07/10/[address]: Ordering Physician: Edin Su M.D. Date of Service: 07/10/24 Procedure(s): CT chest w con Accession Number(s): [id number] cc: Provider,Not a Local; Edin Su M.D.~ For Patients: As a result of the Cures Act, medical imaging exams and procedure reports are released immediately into your electronic medical record. You may view this report before your referring provider. If you have questions, please contact your health care provider. INDICATION: .COUGH, RSV + HX OF CHEST MASS, RIB PAIN TECHNIQUE: CT chest was acquired with 75 cc Isovue 370 IV contrast. COMPARISON: June 2022. FINDINGS: Lungs and Airways: Motion throughout the exam. Mild interstitial edema. Expiratory imaging. Masslike consolidation in the right apex measuring 3.6 cm. A few additional scattered indeterminate pulmonary nodules. No endoluminal lesion. Heart and Mediastinum: Thyroid not visualized. No axillary or supraclavicular lymphadenopathy. No discrete lymphadenopathy. Cardiomegaly. Normal caliber aorta. Atherosclerotic and coronary artery calcifications. Pleura: The pleural spaces are normal. Abdomen: Calcified granulomas. Colonic diverticulosis. Chronic thickening of the adrenal glands. Bones and soft tissues: Bilateral shoulder arthroplasties. Old left-sided rib fractures. Old right-sided rib fractures. Old L1 vertebral body compression fracture. IMPRESSION: 1. Masslike consolidation in the right apex measuring 3.6 cm. A few additional scattered indeterminate pulmonary nodules. Findings may reflect multifocal infection. Recommend unenhanced chest CT in 3 months after appropriate therapy to document resolution and to assess malignant potential. 2. Cardiomegaly. Likely interstitial edema. Please note that all CT scans at this facility use dose modulation, iterative reconstruction, and/or weight-based dosing when appropriate to reduce radiation dose to as low as reasonably achievable. Dictated by Abram Lomeli MD @ 07/10/2024 7:15:08 PM (Electronically Signed) ECG Data Attestation: I personally reviewed and interpreted this ECG as follows: ECG interpretation date: 07/10/24 Prior ECG tracings: available for review Interpretation: EKG shows atrial fibrillation with a controlled ventricular rate of 93 normal QRS, QT and QTC are normal, in comparison to old EKG from 08/04/2023 no appreciable change. Discharge Plan Discharge Clinical Impression: Pneumonia, Respiratory syncytial virus (RSV), POLST (Physician Orders for Life- Sustaining Treatment) Patient Disposition: Admitted As Observation Condition: Guarded Activity Level: Light activity
[2024-07-10 17:29] LABS: Basophils Percent Auto 0.5 % (0.0-3.0); Eosinophils Percent Auto 0.9 % (0.0-7.0); Hematocrit 46.7 % (33.0-51.0); Lymphocytes Percent Auto 15.5 % (20-44); Mean Corpuscular HGB Conc 32 gm/dL (32-36); Mean Corpuscular Hemoglobin 31 pg (26-34); Mean Corpuscular Volume 98 fL (80-100); Monocytes Percent Auto 8.7 % (0.0-11.0); Neutrophils Percent Auto 74.4 % (42.0-72.0); Platelet Count* 173 K/uL (140-440); Red Blood Count 4.78 m/uL (4.00-5.20); White Blood Count* 4.26 K/uL (4.50-11.00)
--- OUTSIDE RECORDS SUMMARY | 2024-07-10 17:30 | XMS_ITS | CCD ---
Author Name Linda Vivas Address [address] [facility] [address] [place] [address] Phone Organization [facility] Phone Care Team Providers Care Agriscience Instructor Name Role Phone Teresa Vivas Primary Care Provider Un available Unavailable Chronic Care Management Unavaila ble Summary Purpose DataExchange Insurance Providers Payer name Policy type / Coverage type Covered constitution party ID Effective Begin Date Effective End Date BCBS of [facility] Medicare Risk [id number] Unknown Un known Family history Mother Diagnosis Age At Onset Stroke Unknown Social History Social History Element Codes Description Effec tive Dates Marital status Unknown 04/13/2024 Marital status Unknown 04/13/2024 Living arrangements Unknown Assisted Living 04/[address]: 0211746 Former smoker 04/[address]: 8978518 Former smoker 04/[address]: 647752232 No Alcohol Consum ption 04/13/[address]: 406999 Currently drin ks alcohol 04/13/2024 Sexually Active? [...] No Inactive Date A ctive SIMVASTATIN RxNorm: 34072 04/13/2024 No Inactive D ate Active Penicillin Unknown 04/13/2024 No Inactive Date A ctive CLOPIDOGREL Unknown 03/23/2024 No Inactive Date Active naproxen RxNorm: 7258 04/13/2024 No Inactive Date Active levofloxacin RxNorm: 24249 03/23/2024 No Inactive Date Active Levemir Unknown 03/23/2024 No Inactive Date Ac tive metformin RxNorm: 495379 04/13/2024 No Inactive Da te Active ESTROGENS Unknown 03/23/2024 No Inactive Date Ac tive Atenolol RxNorm: 1202 04/13/2024 No Inactive Date Active metoprolol succinate RxNorm: 002237 03/23/2024 No Inactive Date Active Januvia RxNorm: 613677 04/13/2024 No Inactive Da te Active furosemide RxNorm: 4603 03/23/2024 No Inactive Balaji e Active azithromycin RxNorm: 22955 04/13/2024 No Inactive Date Active losartan RxNorm: 720080 04/13/2024 No Inactive Da te Active NSAIDS Unknown 03/23/2024 No Inactive Date Ac tive Amlodipine RxNorm: 337647 04/13/2024 No Inactive D ate Active LISINOPRIL RxNorm: 28561 04/13/2024 No Inactive Da te Active PIOGLITAZONE [...] 2 diabetes mellitus without complication, unspecified whether keno terminal operator insulin use ICD-10: E11.9 ICD-9: 250.00 06/29/2024 Active ACP (advance care planning) SNOMED CT: 3 85245394 ICD-10: Z71.89 ICD-9: V65.49 06/01/2024 Active Adult general medical exam SNOMED CT: 30 3330021 ICD-10: Z00.00 ICD-9: V70.9 06/01/2024 Active Atherosclerosis of coronary artery of [place] heart without angina pectoris, unspecified vessel or lesion type ICD-10: I25.10 ICD-9: 414.01 06/01/2024 Active Atrial fibrillation, unspecified type ICD-10: I48.91 ICD-9: 427.31 06/01/2024 Active 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 ICD-9: 311 06/01/[address]: 874775029 ICD-10: R54 ICD-9: 797 06/01/2024 Active Mixed [...] fracture of L1 vertebra, sequela SNOMED CT: 153396326 ICD-10: S32.010S ICD-9: 905.1 04/13/2024 Active Dementia in other diseases classified elsewhere, unspecified severity, without behavioral disturbance, psychotic disturbance, mood disturbance, and anxiety ICD-10: F02.80 04/13/[address]: 966660021 ICD-10: K57.90 ICD-9: 562.10 04/13/2024 Active History of breast cancer SNOMED CT: 4290 19703 ICD-10: Z85.3 ICD-9: V10.3 04/13/2024 Active History of melanoma SNOMED CT: 214796304 ICD-10: Z85.820 ICD-9: V10.82 04/13/2024 Active History of TIA (transient ischemic attack) SNOMED CT: 805867622 ICD-10: Z86.73 ICD-9: V12.54 04/13/2024 Active Hyperlipidemia, unspecified hyperlipidemia type SNOMED CT: 47664287 ICD-10: E78.5 ICD-9: 272.4 04/13/2024 Active Statin intolerance SNOMED CT: 292657028 ICD-10: Z78.9 ICD-9: 995.27 04/13/2024 Active Urinary incontinence, unspecified type SNOMED CT: 708486592 ICD-10: R32 ICD-9: 788.30 04/13/2024 Active Vascular dementia, unspecifi ed severity, without behavioral disturbance, psychotic disturbance, mood disturbance, and anxiety ICD-10: F01.50 04/13/2024 Active Medications Medication Codes Instructions Start Date Stop Date Status Fill Instructions Oyster Shell Calcium-500 500 mg (as carbonate 1,250 mg) tablet RxNorm: 529731 1 TABLET ORALLY DAILY FOR BONE HEALTH 07/09/19 026 Active PLEASE SEND REFILLS.PHARMA Xendex Holding PLEASE PROFILE FOR FUTURE USE-[facility] Vitron-C 65 mg iron-125 mg tablet,delayed release RxNorm: 5120957 1 Tablet(s) Oral QOD every other day 07/09/19 026 Active PLEASE SEND REFILLS.[email or web address] PLEASE PROFILE FOR FUTURE USE-[facility] Co Q-10 200 mg capsule RxNorm: 922701 1 CAPSULE ORALLY DAILY W/ 100MG CAP FOR A TOTAL DOSE OF 300MG (DX: SUPPLEMENT) 07/09/19 026 Active PLEASE SEND [email or web address] PLEASE PROFILE FOR FUTURE USE-[facility] oxybutynin chloride ER 10 mg tablet,extended release 24 hr RxNorm: 129304 1 TAB ORALLY EVERY EVENING FOR BLADDER SPASMS 07/09/19 Active PLEASE SEND REFILLS.PHARMA CY PLEASE PROFILE FOR FUTURE USE-[facility] Trelegy Ellipta 200 mcg-62.5 mcg-25 mcg powder for inhalation RxNorm: 3714140 INHALE 1 PUFF INTO THE LUNGS EVERY 24 HOURS (DX: CHRONIC OBSTRUCTIVE PULMONARY DISEASE) 07/09/19 Active PLEASE SEND REFILLS.PHARMA CY PLEASE PROFILE FOR FUTURE USE-[facility] fluoxetine 10 mg capsule RxNorm: 195393 1 CAPSULE ORALLY DAILY (DX: DEPRESSION) (DX: ANXIETY) 07/09/19 Active PLEASE SEND REFILLS.PHARMA CY PLEASE PROFILE FOR FUTURE USE-[facility] cyanocobalamin (vit B-12) 500 mcg tablet RxNorm: 393538 1 TABLET ORALLY DAILY (DX: ANEMIA) 07/09/19 Active PLEASE SEND REFILLS.PHARMA CY PLEASE PROFILE FOR FUTURE USE-[facility] irbesartan 150 mg tablet RxNorm: 906629 1 TABLET ORALLY 2 TIMES DAILY (DX: HYPERTENSION) 07/09/19 Active PLEASE SEND REFILLS.PHARMA CY PLEASE PROFILE FOR FUTURE USE-[facility] cholecalciferol (vitamin D3) 25 mcg (1,000 unit) tablet RxNorm: 039705 1 TABLET ORALLY DAILY (DX: VITAMIN D DEFICIENCY) 07/09/19 Active PLEASE SEND REFILLS.PHARMA CY PLEASE PROFILE FOR FUTURE USE-[facility] quetiapine 25 mg tablet RxNorm: 117572 1 TABLET ORALLY AT BEDTIME (DX: ANXIETY) 07/09/19 Active PLEASE SEND REFILLS.PHARMA CY PLEASE PROFILE FOR FUTURE USE-[facility] hydrochlorothiazide 25 mg tablet RxNorm: 829470 1 TABLET ORALLY DAILY (DX: HYPERTENSION) 07/09/19 25 Active PLEASE SEND REFILLS.PHARMA CY PLEASE PROFILE FOR FUTURE USE-[facility] coenzyme Q10 100 mg capsule RxNorm: 941095 1 CAPSULE ORALLY DAILY W/ 200MG CAP FOR A TOTAL DOSE OF 300MG (DX: SUPPLEMENT) 07/09/19 25 026 Active PLEASE SEND REFILLS.PHARMA CY PLEASE PROFILE FOR FUTURE USE-[facility] donepezil 10 mg tablet RxNorm: 154343 1 TABLET ORALLY AT BEDTIME (DX: DEMENTIA) 07/09/19 25 Active PLEASE SEND REFILLS.PHARMA CY PLEASE PROFILE FOR FUTURE USE-[facility] Contour Next EZ Meter RxNorm: USE TO JENIFER T BLOOD GLUCOSE DAILY (DX: DIABETES TYPE 2) 07/09/19 25 Active PLEASE SEND REFILLS.PHARMA CY PLEASE PROFILE FOR FUTURE USE-[facility] alcohol swabs RxNorm: 027389 USE DIRECTED 07/09/19 25 Active PLEASE SEND REFILLS.PHARMA CY PLEASE PROFILE FOR FUTURE USE-[facility] Alejandra Protect (zinc oxide) 12 % topical cream RxNorm: 822465 APPLY TO RIGHT BUTTOCK 2 TIMES DAILY;APPLY TO RIGHT BUTTOCK NEEDED WITH SOILING 06/12/19 25 Active albuterol sulfate HFA 90 mcg/actuation aerosol inhaler RxNorm: 7511724 Inhale 2 Puff(s) Inhalation Q4H every four hours as needed 06/01/19 No Stop Date Active Alejandra Protect (zinc oxide) 12 % topical cream RxNorm: 554022 cream Topical apply to right buttocks BID and PRN with soiling 06/01/19 25 Inactive Lantus Solostar U-100 Insulin 100 unit/mL (3 mL) subcutaneous pen RxNorm: 055879 Unit(s) Subcutaneous prime en with 2 units, then inject 8 units SQ QD at bedtime 05/18/19 25 026 Active potassium chloride ER 10 mEq tablet,extended release RxNorm: 593705 Take 1 Tablet(s) Oral QD 04/12/19 No Stop Date Active acetaminophen 500 mg tablet RxNorm: 183625 Take 2 Tablet(s) Oral TID as needed 04/12/19 25 No Stop Date Active fluoxetine 10 mg capsule RxNorm: 171214 Take 1 Capsule(s) Oral QD 04/12/19 25 025 Inactive hydrochlorothiazide 25 mg tablet RxNorm: 877061 Take 1 Tablet(s) Oral QD 04/12/19 025 Inactive Oyster Shell Calcium 500 mg (as calcium carbonate 1,250 mg) tablet RxNorm: 491338 Take 1 Tablet(s) Oral QD 04/12/19 025 Inactive Co Q-10 200 mg capsule RxNorm: 586669 Capsule(s) Oral take 1 cap po daily with 100mg tab to =300mg daily 04/12/19 025 Inactive Co Q-10 100 mg capsule RxNorm: 233058 Capsule(s) Oral take 1 cap daily along with 200mg tab to =300mg daily 04/12/19 025 Inactive quetiapine 25 mg tablet RxNorm: 183807 Take 1 Tablet(s) Oral QHS every night at bedtime 04/12/19 025 Inactive Vitamin D3 25 mcg (1,000 unit) tablet RxNorm: 490047 Take 1 Tablet(s) Oral QD 04/12/19 025 Inactive donepezil 10 mg tablet RxNorm: 819636 Take 1 Tablet(s) Oral QHS every night at bedtime 04/12/19 025 Inactive cyanocobalamin (vit B-12) 500 mcg tablet RxNorm: 920776 Take 1 Tablet(s) Oral QD 04/12/19 025 Inactive oxybutynin chloride ER 10 mg tablet,extended release 24 hr RxNorm: 387270 Take 1 Tablet(s) Oral QPM every evening 04/12/19 025 Inactive irbesartan 150 mg tablet RxNorm: 951122 Take 1 Tablet(s) Oral BID 04/12/19 025 Inactive Trelegy Ellipta 200 mcg-62.5 mcg-25 mcg powder for inhalation RxNorm: 0332756 Inhale 1 Puff(s) Inhalation every 24 hours 04/12/19 025 Inactive Vitron-C 65 mg iron-125 mg tablet,delayed release RxNorm: 0900723 Take 1 Tablet(s) Oral QOD every other day 04/12/19 025 Inactive Eliquis 5 mg tablet RxNorm: 5343695 Take 1 Tablet(s) Oral BID 04/12/19 25 025 Inactive Lantus Solostar U-100 Insulin 100 unit/mL (3 mL) subcutaneous pen RxNorm: 967193 Unit(s) Subcutaneous prime en with 2 units, [...] Result Date Service Location CBC with Platelets [id number] WBC COUNT (AUTOMATED) 4.1 10e3/uL 06/05/19 25 Unknown CBC with Platelets EQE653 RBC COUNT 789-8 4.37 10e6/uL 06/05/19 25 Unknown CBC with Platelets WKC848 Hemoglobin 718-7 13.5 g/dL 06/05/19 25 Unknown CBC with Platelets FXC022 Hematocrit 4544-3 42.8 % 06/05/19 25 Unknown CBC with Platelets PES041 MCV 787-2 98 fL 06/05/19 25 Unknown CBC with Platelets BRS095 MCH 30.9 pg 06/05/19 25 Unknown CBC with Platelets QKA978 MCHC 31.5 g/dL 06/05/19 25 Unknown CBC with Platelets EBH349 RDW 16.5 % 06/05/19 25 Unknown CBC with Platelets GWD423 Platelet Count 777-3 181 10e3/uL 06/05/19 25 Unknown Hemoglobin A1c LAB90 EST AVERAGE GLUCOSE 151 mg/dL 06/05/19 25 Unknown Hemoglobin A1c LAB90 Hemoglobin A1c 64867-8 6.9 % 06/05/19 25 Unknown Glucose CBD7358 Sodium 140 mmol/L 06/05/19 25 Unknown Glucose WQX3302 POTASSIUM (XU) 2823-3 3.5 mmol/L 06/05/19 25 Unknown Glucose WXS8668 CHLORIDE (XU) 100 mmol/L 25 Unknown Glucose LNW7723 CO2 (XU) 28 mmol/L 06/05/19 25 Unknown Glucose UNW8750 ANION GAP (XU) 12 mmol/L 06/05/19 25 Unknown Glucose ZZF9496 UREA NITROGEN (XU) 13.7 mg/dL 06/05/19 25 Unknown Glucose PDX1902 Creatinine 0.75 mg/dL 06/05/19 25 Unknown Glucose CNQ8139 GFR, ESTIMATE 87672-7 76 mL/min/1.73m 2 06/05/19 25 Unknown Glucose JCV9579 Calcium 9.3 mg/dL 06/05/19 25 Unknown Basic Metabolic Panel [id number] POTASSIUM (XU) 2823-3 3.5 mmol/L 06/05/19 25 Unknown Basic Metabolic Panel [id number] CHLORIDE (XU) 100 mmol/L 06/05/19 25 Unknown Basic Metabolic Panel YAD2666 CO2 (XU) 28 mmol/L 06/05/19 25 Unknown Basic Metabolic Panel KZS1751 Calcium 9.3 mg/dL 06/05/19 25 Unknown Basic Metabolic Panel MOH3334 ANION GAP (XU) 12 mmol/L 06/05/19 25 Unknown Basic Metabolic Panel ZOQ8107 Creatinine 0.75 mg/dL 06/05/19 25 Unknown Basic Metabolic Panel FTF7422 GLUCOSE (XU) 2345-7 79 mg/dL 06/05/19 25 Unknown Basic Metabolic Panel UYI7380 Sodium 140 mmol/L 06/05/19 25 Unknown Basic Metabolic Panel ZZY4338 UREA NITROGEN (XU) 13.7 mg/dL 06/05/19 25 Unknown Basic Metabolic Panel KKE5337 GFR, ESTIMATE 61706-9 76 mL/min/1.73m 2 06/05/19 25 Unknown Urine Culture 11224 URINE CULTURE 53180-5 SEE RESU LTS BELOW 06/04/19 25 Unknown PHQ9 PHQ9 41076-9 1 06/02/19 Unknown UA with Microscopic 45076 COLOR Light Yellow 06/01/19 Unknown UA with Microscopic 31279 Appearance Slightly Cloudy 06/01/19 Unknown UA with Microscopic 98540 GLUCOSE, URINE Negative mg/dL 06/01/19 Unknown UA with Microscopic 48456 BILIRUBIN, URINE Negative 06/01/19 Unknown UA with Microscopic 55300 Ketones Urine Negative mg/dL 06/01/19 Unknown UA with Microscopic 32021 Specific [place] Urine 1.012 06/01/19 Unknown UA with Microscopic 99292 BLOOD, URINE Negative 06/01/19 Unknown UA with Microscopic 53547 pH Urine 6.5 06/01/19 Unknown UA with Microscopic 51293 Protein urine Negative mg/dL 06/01/19 Unknown UA with Microscopic 66537 UROBILINOGEN IRIS Normal mg/dL 06/01/19 Unknown UA with Microscopic 26874 Nitrites Positive 06/01/19 Unknown UA with Microscopic 94909 LEUK ESTERASE Trace 06/01/19 Unknown UA with Microscopic 38163 Bacteria Few /HPF 06/01/19 Unknown UA with Microscopic 90999 WBC CLUMPS 6690-2 Present /HPF 06/01/19 Unknown UA with Microscopic 74072 Mucus Urine Present /LPF 06/01/19 Unknown UA with Microscopic 68987 RBC Urine <1 /HPF 06/01/19 Unknown UA with Microscopic 96247 SQUAMOUS EPITHELIAL 2 /HPF 06/01/19 Unknown UA with Microscopic 40218 WBC Urine 83180-0 26 /HPF 06/01/19 Unknown Urine Culture 41238 URINE CULTURE 25446-9 SEE RESU LTS BELOW 05/23/19 Unknown UA with Microscopic 56538 COLOR Yellow 05/22/19 Unknown UA with Microscopic 19908 Appearance Slightly Cloudy 05/22/19 Unknown UA with Microscopic 45322 GLUCOSE, URINE Negative mg/dL 05/22/19 Unknown UA with Microscopic 40921 BILIRUBIN, URINE Negative 05/22/19 Unknown UA with Microscopic 67447 Ketones Urine Negative mg/dL 05/22/19 Unknown UA with Microscopic 50293 Specific [place] Urine 1.013 05/22/19 Unknown UA with Microscopic 17489 BLOOD, URINE Negative 05/22/19 Unknown UA with Microscopic 85713 pH Urine 6.5 05/22/19 25 Unknown UA with Microscopic 74486 Protein urine 10 mg/dL 05/22/19 25 Unknown UA with Microscopic 24342 UROBILINOGEN IRIS Normal mg/dL 05/22/19 25 Unknown UA with Microscopic 94656 Nitrites Positive 05/22/19 25 Unknown UA with Microscopic 25554 LEUK ESTERASE Large 05/22/19 25 Unknown UA with Microscopic 05703 Bacteria Few /HPF 05/22/19 25 Unknown UA with Microscopic 56637 Mucus Urine Present /LPF 05/22/19 25 Unknown UA with Microscopic 32930 RBC Urine 0 /HPF 05/22/19 25 Unknown UA with Microscopic 80498 SQUAMOUS EPITHELIAL 3 /HPF 05/22/19 25 Unknown UA with Microscopic 51194 WBC Urine 04747-1 24 /HPF 05/22/19 25 Unknown UA with Microscopic 63570 TRANSITIONAL EPI <1 /HPF 05/22/19 25 Unknown PHQ9 PHQ9 85194-4 2 04/13/19 25 Unknown SLUMS SLUMS 71322-9 13 04/13/19 25 Unknown Procedures Procedure Codes Date HG A1C LEVEL LT 7.0% CPT-4: 3044F 06/29/2024 PT INELIG NEG SCRN DEPRES SNOMED CT: 428 [id number] CPT-4: G8510 06/01/2024 PT INELIG NEG SCRN DEPRES SNOMED CT: 428 266152482852 CPT-4: G8510 04/13/2024 Vital Signs Date Vital 06/29/2024 Blood Pressure 1: 132/82 Code: 8480-6 Heart Rate 1: 66 bpm Code: 8867-4 Respiratory Rate: 18 bpm SpO2: 95% Temperature: 36.3 (C) / 97.3 (F) 06/01/2024 Blood Pressure 1: 150/90 Code: 8480-6 BMI: NaN Code: 53238-9 Heart Rate 1: 71 bpm Code: 8867-4 [...] Encounter Performer Location Location Address Codes Date ([id number]) Home Visit - Est Pt, moderate Diagnosis: Acute cystitis without hematuria[ICD10: N30.00] Diagnosis: Chronic heart failure with preserved ejection fraction[ICD10: I50.32] Diagnosis: Iron deficiency anemia, unspecified iron deficiency anemia type[ICD10: D50.9] Diagnosis: Type 2 diabetes mellitus without complication, unspecified whether custodial insulin use[ICD10: E11.9] Diagnosis: Chronic obstructive pulmonary disease, unspecified COPD type[ICD10: J44.9] Teresamarcellus Boothe[address] [address] CPT-4: 32325 06/29/2024 ([id number]) Medicare Annual Wellness Visit (AWV), Subsequent Diagnosis: Adult general medical exam[SNOMED: 340508147] Diagnosis: ACP (advance care planning)[SNOMED: 359713353] Diagnosis: Frailty[SNOMED: 589827300] Diagnosis: Atherosclerosis of coronary artery of [place] heart without angina pectoris, unspecified vessel or [...] 2 diabetes mellitus without complication, unspecified whether keno terminal operator insulin use[ICD10: E11.9] Diagnosis: Unintentional weight loss[ICD10: R63.4] Diagnosis: Unsteady gait[ICD10: R26.81] Diagnosis: Venous insufficiency of both lower extremities[ICD10: I87.2] Diagnosis: Acute cystitis without hematuria[SNOMED: 67541355] Diagnosis: Pressure injury of left buttock, stage 2[ICD10: L89.322] Teresa Laws[address] [address] CPT-4: G0439 06/01/2024 ([id number]) Home Visit - Est Pt, moderate Diagnosis: Adult general medical exam[SNOMED: 468234832] Diagnosis: ACP (advance care planning)[SNOMED: 740263597] Diagnosis: Frailty[SNOMED: 588416615] Diagnosis: Atherosclerosis of coronary artery of [place] heart without angina pectoris, unspecified vessel or [...] 2 diabetes mellitus without complication, unspecified whether custodial insulin use[ICD10: E11.9] Diagnosis: Unintentional weight loss[ICD10: R63.4] Diagnosis: Unsteady gait[ICD10: R26.81] Diagnosis: Venous insufficiency of both lower extremities[ICD10: I87.2] Diagnosis: Acute cystitis without hematuria[SNOMED: 41807722] Diagnosis: Pressure injury of left buttock, stage 2[ICD10: L89.322] [place] [address] CPT-4: 11808 06/01/2024 ([id number]) Home or Residence Visit Est Pt - Moderate Level, 40 mins 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] Diagnosis: Primary hypertension[ICD10: I10] Diagnosis: Pressure injury of left buttock, stage 2[SNOMED: 33824967263620] Diagnosis: Type 2 diabetes mellitus without complication, unspecified whether keno terminal operator insulin use[ICD10: E11.9] Teresa [place] [address] CPT-4: 66196 05/04/2024 ([id number]) Home or Residence Visit [employer]ER - Moderate Level, 60 mins Diagnosis: Statin intolerance[SNOMED: 753788641] Diagnosis: Mixed Alzheimer and vascular dementia[SNOMED: 79213331521595] Diagnosis: Vascular dementia, unspecified severity, without behavioral disturbance, psychotic disturbance, mood disturbance, and anxiety[ICD10: F01.50] Diagnosis: Dementia in other diseases classified elsewhere, unspecified severity, without behavioral disturbance, psychotic disturbance, mood disturbance, and anxiety[ICD10: F02.80] Diagnosis: History of TIA (transient ischemic attack)[SNOMED: 645641069] Diagnosis: Type 2 diabetes mellitus without complication, unspecified whether keno terminal operator insulin use[SNOMED: 80713154] Diagnosis: Venous insufficiency of both lower extremities[SNOMED: 822135968] Diagnosis: Hyperlipidemia, unspecified hyperlipidemia type[SNOMED: 90839159] Diagnosis: Unintentional weight loss[SNOMED: 009947944] Diagnosis: Urinary incontinence, unspecified type[SNOMED: 284970688] Diagnosis: Depression due to dementia[SNOMED: 01319175] Diagnosis: Compression fracture of L1 vertebra, sequela[SNOMED: 709760906] Diagnosis: Atherosclerosis of coronary artery of [place] heart without angina pectoris, unspecified vessel or lesion type[SNOMED: 064523066] Diagnosis: Unsteady gait[SNOMED: 10697121] Diagnosis: Iron deficiency anemia, unspecified iron deficiency anemia type[SNOMED: 78179451] Diagnosis: Osteopenia, unspecified location[SNOMED: 447057920] Diagnosis: CAMILO (obstructive sleep apnea)[SNOMED: 39385344] Diagnosis: Chronic obstructive pulmonary disease, unspecified COPD type[SNOMED: 55779735] Diagnosis: History of breast cancer[SNOMED: 888199950] Diagnosis: History of melanoma[SNOMED: 875417255] Diagnosis: Primary hypertension[SNOMED: 36513032] Diagnosis: Chronic heart failure with preserved ejection fraction[SNOMED: 703494985] Diagnosis: Diverticulosis[SNOMED : 802907847] Diagnosis: Atrial fibrillation, unspecified type[SNOMED: 73981328] Diagnosis: Advance care planning[SNOMED: 573574120] Teresa Talbot [address] [address] CPT-4: 27620 04/13/2024 Plan of Care Planned Activity Notes [...] Complet ed 05/04/2024 Appointment: Michela Talbot WPtel: [address] [place] [address] 04/13/2024 Patient Education: Patient Medication Summary Completed 04/13/2024 Patient Education: Influenza Complet ed 04/13/2024 Patient Education: Alzheimer''s Disease Completed 04/13/2024 Patient Education: Dementia Complete d 04/13/2024 Instructions Comment Date Alyx resides at [facility] since about 2021. Previously lived independently in [place]. . Has one daughter Maggie who is involved in healthcare. PMH: History of breast cancer and melanoma, mixed dementia, depression, CAD, HLD, history of CVA/TIA, compression fx of L1 vertebrae, urinary incontinence, hearing loss, osteopeniaPrimary contact: Maggie Gallegos (Daughter)Code Status: DNR/SelectLab Schedule: Mar/SepSpecialists: [facility] (Q6M), Cardiology [facility] (MD Echo) 06/11/2024 Type 2 diabetes mellitus wit hout complication, unspecified whether custodial insulin use Sugars reviewed; most readings < [...] 2 diabetes mellitus without complication, unspecified whether custodial insulin use Sugars reviewed; remain in 80s-100s. [...] of care. Atherosclerosis of coronary artery [place] heart without angina pectoris, unspecified vessel or [...] diabetes mellitus wit hout complication, unspecified whether keno terminal operator insulin use Sugars reviewed; remain in 80-90s [...] fibrillation, unspecified type Has seen cardiology in [place] 01/2024. Managed on eliquis 5mg BID. No excessive bruising or bleeding on exam. Atherosclerosis of coronary artery [place] heart without angina pectoris, unspecified vessel or [...]
--- OUTSIDE RECORDS SUMMARY | 2024-07-10 17:30 | XMS_ITS | Clinical Summary ---
Author Organization [facility] Address [address] [place] [address] Care Team Providers Care Hinging Machine Operator Name Role Phone Darien Sanchez MD Primary Care Provider [phone] Source Comments You are receiving this document [...] for each transition of care or referral. [facility] Active Allergy Reactions Criticality Noted Date [...] (10/30/2016): LW Modifier: R thalamus LW Onset: [id number] ; Lacunar Infarct Obesity 04/27/2010 Morbid obesity [...] 36.9 C (98.4 F) 04/16/2011 3:42 PM PHYSICS INSTRUCTOR Respiratory Rate 22 06/23/2012 8:49 PM CDT Oxygen Saturation 100% 03/10/2008 8:00 AM PHYSICS INSTRUCTOR Inhaled Oxygen Concentration - - Weight 130.2 [...] this topic Medical Devices Implanted Type Area It Quality Analyst Device Identifier Shelf Expiration Date Model / Serial / Lot Scr Roberta Sftp 3.5/2.7hx16 - [id number] Implanted:Qty: 4 on 03/07/2008 at [facility] DEVICE Right: [employer] [id number] / / Scr Omero Sftp 2.7x16 - [id number] Implanted:Qty: 1 on 03/07/2008 at [facility] DEVICE Right: [employer] [id number] / / Plt Fib Dist Lk Rt 158mm 10h - [id number] Implanted:Qty: 1 on 03/07/2008 at [facility] DEVICE Right: [employer] [id number] / / Scr Lk 2.7x10mm - [id number] Implanted:Qty: 1 on 03/07/2008 at [facility] DEVICE Right: [employer] 4828-010-02 / / Scr Lk 2.7x12mm - [id number] Implanted:Qty: 1 on 03/07/2008 at [facility] DEVICE Right: [employer] 4828-012-02 / / Scr Lk 2.7x14mm - [id number] Implanted:Qty: 2 on 03/07/2008 at [facility] DEVICE Right: [employer] 4828-014-02 / / Scr Lk 2.7x16 - [id number] Implanted:Qty: 2 on 03/07/2008 at [facility] DEVICE Right: [employer] [id number] / / Procedures Procedure Name Priority Date/Time Associated Diagnosis Comments CREATININE / GFR Routine 04/03/2011 12:1 7 PM PHYSICS INSTRUCTOR Essential hypertension LIPID PANEL & DIRECT LDL (IF NEEDED) Routine 02/25/2011 12:01 PM PHYSICS INSTRUCTOR Type II or unspecified type diabetes mellitus without mention of complication, not stated as uncontrolled (HRC) HGB A1C Routine 02/25/2011 12:01 PM PHYSICS INSTRUCTOR Type II or unspecified type diabetes mellitus without mention of complication, not stated as uncontrolled (HRC) from Last 3 Months or Most Recently Relevant to Health Maintenance Results * Creatinine / GFR (04/03/2011 12:17 PM PHYSICS INSTRUCTOR) Creatinine Serum 0.9 0.4 - 1.3 mg/dL HP CONVERSION Est GFR Am >60 >60 mL/min/1.7 3m2 HP CONVERSION Est GFR Non-Afr Am >60 >60 mL/min/1.7 3m2 HP CONVERSION Comment: Normal>60, moderate decrease 30 - 59, severe decrease 15 - 29, renal failure <15 mL/min/1.73 m2 NOTE: Choose the eGFR result above appropriate for the race of the patient. 04/03/2011 12:1 7 PM PHYSICS INSTRUCTOR 04/03/2011 12:17 PM PHYSICS INSTRUCTOR Narrative HP CONVERSION - 04/03/2011 3:29 PM PHYSICS INSTRUCTOR Performed at [facility], [address] [place] [address] Jeffrey Duke MD LAB_1 Final Resul t Performing Organization Address [facility] de Phone Number HP CONVERSION * (ABNORMAL) Lipid Panel and Direct LDL(If Needed) (02/25/2011 12:01 PM PHYSICS INSTRUCTOR) Cholesterol 169 0 - 200 mg/dL HP CONVERSION Triglycerides 158(H) 0 - 149 mg/dL HP CONVERSION HDL Cholesterol 47 >39 mg/dL HP CONVERSION Cholesterol/HDL Ratio Screen 3.6 HP CONVERSION LDL Calculated 90 19 - 130 mg/dL HP CONVERSION Hours Fasting 12.0 HP CONVERSION 02/25/2011 12:0 1 PM PHYSICS INSTRUCTOR 02/25/2011 12:00 PM PHYSICS INSTRUCTOR Narrative HP CONVERSION - 02/25/2011 3:30 PM PHYSICS INSTRUCTOR Performed at [facility], [address] [place] [address] Transcriptions 04/19/2016 9:42 PM CSTNotes Recorded by Jeffrey Duke MD on 02/25/2011 at 5:08 PMWait for all results to be available to send a single lab letter explaining results. Jeffrey Duke MD LAB_1 Final Resul t Performing Organization Address [facility] de Phone Number HP CONVERSION * (ABNORMAL) Hgb A1c (02/25/2011 12:01 PM PHYSICS INSTRUCTOR) HGB A1C 7.3(H) 0.0 - 6.0 % HP CONVERSION 02/25/2011 12:0 1 PM PHYSICS INSTRUCTOR 02/25/2011 2:44 PM PHYSICS INSTRUCTOR us Jeffrey Duke MD LAB_1 Final Resul t Performing Organization Address [facility] de Phone Number HP CONVERSION from Last 3 Months or Most Recently Relevant to Health Maintenance Insurance [facility] MEDICARE ADVANTAGE Advance Directives Documents on File 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
--- OUTSIDE RECORDS SUMMARY | 2024-07-10 17:30 | XMS_ITS | Encounter Summary ---
Author Organization [facility] Address [address] [facility] [place] [address] Care Team Providers Care Remediation Technician Name Role Phone Darien Sanchez Primary Care Provider [phone] Zahira Feldman MD Unavailable + Yumiko Sim MD Unavailable Kathy Bueno DO Unavailable [phone] Dixon Panchal MD Primary Care Provider Dixon Panchal MD Unavailable [facility] Unavailable Albertina Hartman APRN [facility] Unavailable [phone] Darlene Mendoza MD Primary Care Provider [phone] Eleanor Humphreys PA-C Unavailable Encounter Details Date Type Department Care Team (Late st Contact Info) Description 07/26/2019 [facility] Only [facility] [address] [facility] [address] [place] [address] Billie Martinez MD [address] [facility] [address] [place] [address] Paroxysmal atrial fibrillation (H) (Primary [...] on file 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 Gender Identity Not on file Sexual Orientation [...] abnormality documented in this encounter Care Teams Remediation Technician Relationship Specialty Start Date End Date Darien Sanchez [address] [address] PCP - General Family Practice 03/31/17 02/01/22 Dixon Panchal MD [address] [place] [address] PCP - General Internal Medicine 02/02/22 07/18/22 Darlene Mendoza MD [facility] [address] [place] [address] PCP - General Family Medicine 07/19/22 Zahira Feldman MD [address] [place] [address] MD Ophthalmology 10/13/17 Yumiko Sim MD [address] [place] [address] Assigned PCP 07/08/19 02/08/22 Kathy Bueno DO [address] [place] [address] Assigned Heart and Vascular Provider 12/31/19 04/07/21 Dixon Panchal MD [address] [place] [address] Assigned PCP 02/09/22 05/29/24 [facility] [id number] [place] [phone] 07/17/22 Albertina Hartman APRN [employer] [address] [place] [address] Nurse Practitioner Geriatric Medicine 07/17/22 08/25/22 Eleanor Humphreys PA-C [facility] [address] [address] Assigned Neuroscience Provider 08/31/22 02/29/24 Krysta Bhatti- [facility] OLAMIDE SHANNON 07/15/22 documented as of this encounter
[2024-07-10 17:31] LABS: Slide Review Reflex No
--- OUTSIDE RECORDS SUMMARY | 2024-07-10 17:31 | XMS_ITS | Clinical Summary ---
Author Organization [facility] Address [address] , [address] [place] [address] Phone Care Team Providers Care Foundry Process Engineer Name Role Phone Narendra Ricardo MD Conditions or Problems Problem Name Problem Code Onset Date Status Entry Date Provider Comment Standard Description Annotate Gait imbalance 391547423 (SNOMED CT) 04/11 Active 04/11 Narendra Ricardo MD Abnormal gait due to impairment of balance Dementia 93170574 (SNOMED CT) 04/11 Active 04/11 Narendra Ricardo MD Dementia Hypertension 21040715 (SNOMED CT) 09/26 Active 09/26 Narendra Ricardo MD Hypertensive disorder Type 2 diabetes mellitus 54815745 (SNOMED CT) 09/26 Active 09/26 Narendra Ricardo MD Type 2 diabetes mellitus Depression NOS 12901563 (SNOMED CT) 04/13 Active 04/22 Suni Begum PsyD Depressive disorder Mild cognitive impairment 729175417 (SNOMED CT) 04/13 Active 04/22 Suni Begum PsyD Mild neurocognitive disorder Memory loss 87667926 (SNOMED CT) 07/17 Active 07/17 Narendra Ricardo MD Amnesia MIGRAINE VARIANT, 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 (ICD-9-CM) 08/10 Active 08/10 Dick Rashid DO Variants of migraine, not elsewhere classified, without mention of intractable migraine, without mention of status migrainosus HEADACHE 04475855 (SNOMED CT) 08/10 Active 08/10 Dick Michaelsrel DO Headache Medications Medication Instructions Start Date Stop Date Generic Name [facility] Provider DONEPEZIL HCL 10 MG TABS Take 1 tablet by mouth once a day 04/22 donepezil 98901773071 Laila Dinaneftali Aguirreil PA-C DONEPEZIL HCL 23 MG TABS Take 1 tablet by mouth once a day 04/11 donepezil 57968302862 Elva Underwood RN, BSN DONEPEZIL HCL 10 MG TABS Take 1 tablet by mouth once a day 04/11 donepezil 32896924153 Narendra Ricardo MD DONEPEZIL HCL 23 MG TABS Take 1 tablet by mouth once a day 04/11 donepezil 20199604410 Narendra Ricardo MD QUETIAPINE FUMARATE 25 MG TABS take 1 tab by mouth at bedtime 11/13 quetiapine 62680796959 Laila Larkin PA-C VALSARTAN twice a day 10/09 DIOVAN Laila Larkin PA-C ASPIRIN 325 MG TABS once a day 10/09 aspirin 34360795663 Laila Larkin PA-C HYDROCHLOROTHIAZIDE 25 MG TABS once a day 10/09 hydrochlorothiazi de 02816575479 Laila Aguirreil PA-C TEMAZEPAM 30 MG CAPS Bedtime 10/09 temazepam 87278877298 Laila Larkin PA-C HYDROCODONE-ACETAMIN OPHEN 5-325 MG TABS every six hours as needed 10/09 hydrocodone-aceta minophen 64611055491 Laila Aguirreil PA-C POTASSIUM CHLORIDE ER 10 MEQ CR-CAPS twice a day 10/09 potassium chloride 39122307343 Laila Aguirreil PA-C DIAZEPAM 5 MG TABS 1 tablet by mouth 07/23 diazepam 20709338237 Laila Aguirreil PA-C METFORMIN HCL 500 MG TABS 10/09 metformin 34619099930 Laila Aguirreil PA-C FLUTICASONE PROPIONATE HFA 10/09 FLOVENT HFA [facility] THIAMINE HCL once a day 10/09 THIAMINE [facility] INSULIN ISOPHANE twice a day 10/09 HUMAN Laila Dina Trae NEAL TIOTROPIUM BROMIDE MONOHYDRATE once a day 10/09 SPIRIVA HANDIHALER [facility] SENNOSIDES 8.6 MG TABS twice a day as needed 10/09 SENNOSIDES [facility] POTASSIUM CHLORIDE ER 10 MEQ CR-TABS 10/09 potassium chloride 45754715914 [facility]NGEL ALBUTEROL SULFATE HFA 108 (90 Base) MCG/ACT AERS every four hours as needed 10/09 albuterol sulfate 38212389278 [facility] CALCIUM/C/D 500-10-250 MG-MG-UNIT CHEW calcium carbonate 17648728260 [facility] Dina Cherjosenm ÁNGEL VITAMIN D3 25 MCG (1000 UT) TABS cholecalciferol (vitamin d3) 19610621809 [facility] Dina Cherjosenm ÁNGEL TRELEGY ELLIPTA 200-62.5-25 MCG/ACT AEPB fluticasone-umec l idin-vilanter 71010395478 [facility] DIAZEPAM 5 MG TABS 1 tablet by mouth 07/23 diazepam 11271070091 Narendra Ricardo MD SENNOSIDES 8.6 MG TABS twice a day as needed 10/09 SENNOSIDES Narendra Ricardo MD BISACODYL 10 MG SUPP once a day as needed 04/11 bisacodyl 78215201731 Narendra Ricardo MD VALSARTAN twice a day 10/09 DIOVAN Narendra Ricardo MD VITAMIN B-12 500 MCG TABS once a day cyanocobalamin (vitamin b-12) 79005778846 Narendra Ricardo MD LEVOFLOXACIN 500 MG TABS null 04/11 levofloxacin 93158661626 Narendra Ricardo MD HYDROCHLOROTHIAZIDE 25 MG TABS once a day hydrochlorothiaz i de 89036049670 Narendra Ricardo MD POTASSIUM CHLORIDE ER 10 MEQ CR-CAPS twice a day 11/23 potassium chloride 53221814150 Narendra Ricardo MD TIOTROPIUM BROMIDE MONOHYDRATE once a day 10/09 SPIRIVA HANDIHALER Narendra Ricardo MD ASPIRIN 325 MG TABS once a day 10/09 aspirin 56348631881 Narendra Ricardo MD GLIPIZIDE 10 MG TABS once a day 04/11 glipizide 66592331620 Narendra Ricardo MD CO Q-10 300 MG CAPS once a day coenzyme q10 6107 0613099 Narendra Ricardo MD IRBESARTAN 300 MG TABS twice a day irbesartan 42202974292 Narendra Ricardo MD THIAMINE HCL once a day 10/09 THIAMINE Narendra Ricardo MD DONEPEZIL HCL 5 MG TABS 04/11 donepezil 09342724804 Narendra Ricardo MD NYSTATIN 560925 UNIT/GM CREA 2-3X/Day 04/11 nystatin 96070023567 Narendra Ricardo MD CLONIDINE HCL 0.3 MG TABS three times a day 04/11 clonidine hcl 63939402171 Narendra Ricardo MD ALBUTEROL SULFATE HFA 108 (90 Base) MCG/ACT AERS every four hours as needed 10/09 albuterol sulfate 08063653991 Narendra Ricardo MD FUROSEMIDE 20 MG TABS once a day 04/11 furosemide 76832049789 Narendra Ricardo MD CLOPIDOGREL BISULFATE 75 MG TABS once a day 04/11 clopidogrel 40671165660 Narendra Ricardo MD INSULIN ISOPHANE twice a day 10/09 HUMAN Narendra Ricardo MD TEMAZEPAM 30 MG CAPS Bedtime 10/09 temazepam 13169192788 Narendra Ricardo MD NAPROXEN SODIUM 220 MG TABS twice a day 04/11 naproxen sodium 00148378571 Narendra Ricardo MD BUMETANIDE 0.5 MG TABS twice a day 04/11 bumetanide 52922436643 Narendra Ricardo MD HYDROCODONE-ACETAMIN OPHEN 5-325 MG TABS every six hours as needed 10/09 hydrocodone-aceta minophen 15780757535 Narendra Ricardo MD WARFARIN SODIUM 1 MG TABS once a day 04/11 warfarin 75039566263 Narendra Ricardo MD FLUTICASONE PROPIONATE HFA 10/09 FLOVENT HFA Narendra Ricardo MD HYDROCHLOROTHIAZIDE 25 MG TABS once a day 10/09 hydrochlorothiazi de 47308907595 Narendra Ricardo MD DONEPEZIL HCL 10 MG TABS Take 1 tablet by mouth once a day 04/11 donepezil 29129036005 Narendra Ricardo MD DONEPEZIL HCL 5 MG TABS 04/11 donepezil 34129648832 Narendra Ricardo MD METFORMIN HCL 500 MG TABS 10/09 metformin 65341360565 Narendra Ricardo MD LANTUS SOLOSTAR 100 UNIT/ML SOPN insulin glargine 33258969509 Samira Ricardo MD POTASSIUM CHLORIDE ER 10 MEQ CR-TABS 10/09 potassium chloride 20632007207 Narendra Ricardo MD FLUOXETINE HCL 10 MG CAPS fluoxetine 96997528612 Narendra Ricardo MD DIAZEPAM 5 MG TABS One tab po 30min before scan. July repeat x 1. 07/23 DIAZEPAM 23773506895 Narendra Ricardo MD WARFARIN SODIUM 1 MG TABS Daily 04/11 WARFARIN SODIUM 1 MG ORAL TABLET 90258054158 System Maintenance VALSARTAN (DIOVAN) 160 MG TAB, [...] Bedtime 04/11 TEMAZEPAM 30 MG ORAL CAPSULE 57666071687 System Maintenance SENNOSIDES 8.6 MG TABS Twice A Day as needed 04/11 SENNOSIDES, SENIOR CARE 8.6 MG ORAL TABLET 19128387624 System Maintenance POTASSIUM CHLORIDE ER 10 MEQ CR-CAPS Twice A Day 11/23 POTASSIUM CHLORIDE 10 MEQ EXTENDED RELEASE ORAL CAPSULE 18722099048 System Maintenance NYSTATIN 846707 UNIT/GM CREA 2-3X/Day 11/21 NYSTATIN 858029 UNT/ML TOPICAL CREAM 13610268632 System Maintenance NAPROXEN SODIUM 220 MG TABS Twice A Day 04/11 NAPROXEN SODIUM 220 MG ORAL TABLET 02585885345 System Maintenance LEVOFLOXACIN 500 MG TABS null 04/11 LEVOFLOXACIN 500 MG ORAL TABLET 84561811702 System Maintenance IRBESARTAN 300 MG TABS Twice A Day 04/11 IRBESARTAN 300 MG ORAL TABLET 94183504491 System Maintenance INSULIN ISOPHANE (HUMAN) (NOVOLIN N RELION) RELION INJ, 15-25 UNIT SUBCUTANEOUSL Twice A Day 04/11 INSULIN HUMAN, ISOPHANE 100 UNT/ML INJECTABLE SUSPENSION System Maintenance HYDROCHLOROTHIAZIDE 25 MG TABS Daily 04/11 HYDROCHLOROTHIAZI DE 25 MG ORAL TABLET 73476282630 System Maintenance HYDROCHLOROTHIAZIDE 25 MG TABS Daily 04/11 HYDROCHLOROTHIAZI DE 25 MG ORAL TABLET 39660306493 System Maintenance GLIPIZIDE 10 MG TABS Daily 04/11 GLIPIZIDE 10 MG ORAL TABLET 63494369902 System Maintenance FUROSEMIDE 20 MG TABS Daily 04/11 FUROSEMIDE 20 MG ORAL TABLET 07660839307 System Maintenance FLUTICASONE PROPIONATE HFA (FLOVENT HFA) 220 MCG/ACT AER 04/11 120 ACTUAT FLUTICASONE PROPIONATE 0.22 MG/ACTUAT METERED DOS System Maintenance B-12 500 MCG TABS Daily 04/11 VITAMIN B 12 0.5 MG ORAL TABLET 79091324124 System Maintenance CO Q-10 300 MG CAPS Daily 04/11 COENZYME Q10 300 MG ORAL CAPSULE 21466084036 System Maintenance CLOPIDOGREL BISULFATE 75 MG TABS Daily 04/11 CLOPIDOGREL 75 MG ORAL TABLET 46309638600 System Maintenance CLONIDINE HCL 0.3 MG TABS Three Times A Day 04/11 CLONIDINE HYDROCHLORIDE 0.3 MG ORAL TABLET 01523382297 System Maintenance BUMETANIDE 0.5 MG TABS Twice A Day 04/11 BUMETANIDE 0.5 MG ORAL TABLET 89360323423 System Maintenance BISACODYL LAXATIVE 10 MG SUPP Daily as needed 04/11 BISACODYL 10 MG RECTAL SUPPOSITORY 72986938488 System Maintenance ASPIRIN 325 MG TABS Daily 04/11 ASPIRIN 325 MG ORAL TABLET 74249557497 System Maintenance ALBUTEROL SULFATE HFA 108 (90 Base) MCG/ACT AERS Every 4 Hours as needed 04/11 200 ACTUAT ALBUTEROL 0.09 MG/ACTUAT METERED DOSE INHALER 60640051135 System Maintenance HYDROCODONE-ACETAMIN OPHEN 5-325 MG TABS Every 6 Hours as needed 04/11 ACETAMINOPHEN 325 MG / HYDROCODONE BITARTRATE 5 MG ORAL TABL 50452961381 System Maintenance Medications Administered No information available. [...] Visit: fax SMOK STATUS never smoker Toba tobacco classer smoking status Replaced Document: (P) T4, F REE, TSH, VITAMIN B12 B-12 * pg/mL Cobalamin (Vitamin B12) [Mass/volume] in Serum or Plasma TSH 1.75 u[iU]/mL 0.40-4.50 N Thyrotropi n [Units/volume] in Serum or Plasma FRT4 1.0 0.8-1.8 N FREE T4 Internal Other: Verbal Autho rization/Emergency Contact - OBS VERBAL_EMER DONE Verbal authorization and emergency contact External Correspondence: [facility] Directive/Healthcare power of transactional attorney - OBS AD DISCUSSED Advanced care planning discussed Advanced directive discussed w/member/caregive r; Patient received counseling regarding palliation - symptom management - end of life decisions Office Visit: Office Visit f ax DEMENTIA2 Assessment of cognition performed and results reviewed. Total score [MMSE] [id number] Mild Total scor e [MoCA] MMSE SCORE [...] Detail Appointment 01:00 PM Laila Larkin PA-C, [address] [place] [address], [address], [place], [address], Pending order Follow up DOUGLAS Pending order [...] Name Date Entry Date ORDERS Follow up [facility]-[id number] Documentation of current medicatio ns [facility]-[id number] Documentation of current medicatio ns ORDERS Patient Instructions ORDERS Patient Instructions LOINC 99155-2 MMSE ORDERS Follow up DOUGLAS ORDERS Patient Instructions SCT-[id number] Documentation of current medicatio ns ORDERS Follow up LOINC 14082-5 MMSE ORDERS Obtain outside records 04/11 ORDERS Follow up DOUGLAS in clinic or telemedicine 2 LOINC 07064-0 MMSE ORDERS Patient Instructions SCT-[id number] Documentation of current medicatio ns ORDERS Patient Instructions ORDERS Occupational Therapy SCT-[id number] Documentation of current medicatio ns CPT-55953 Free Service ORDERS Follow up telemedicine 11/28 ORDERS Neuropsychology Evaluation 2 ORDERS Patient Instructions [facility]-[id number] Documentation of current medicatio ns ORDERS Follow up ORDERS Patient Instructions ORDERS Patient Instructions SCT-[id number] Documentation of current medicatio ns ORDERS Follow up DOUGLAS [id number] Consult SCT-[id number] Documentation of current medicatio ns ORDERS Patient Instructions ORDERS Follow up CPT-02402 Npsy Interp/Rpt by Provider - 1st hour 20 29/03/06 ORDERS Neuropsych Testing 0 CPT-43881 Npsy Interview w/Provider - 1st hour 2018 CPT-53963 Npsy Interp/Rpt by Provider - 1st hour 20 26/02/04 CPT-62587 Npsy Interp/Rpt by Provider - 2 hours 201 11/20/03 CPT-67022 Npsy Test by Tech (2+ Tests) - 1st 30 min CPT-47433 Npsy Test by Tech (2+ Tests) - 1.5 hours CPT-77566 MRI Brain W/O [id number] MRI-Brain W/O [facility]-[id number] Documentation of current medicatio ns ORDERS Patient [...]
--- OUTSIDE RECORDS SUMMARY | 2024-07-10 17:31 | XMS_ITS | CCD ---
Author Name Linda Vivas Address [address] [facility] [address] [place] [address] [facility] Phone Care Team Providers Care Manager Special Events Name Role Phone Teresa Vivas Primary Care Provider Un available Unavailable Chronic Care Management Unavaila ble Summary Purpose DataExchange Insurance Providers Payer name Policy type / Coverage type Covered alliance party ID Effective Begin Date Effective End Date BCBS of [facility] Medicare Risk [id number] Unknown Un known Family history Mother Diagnosis Age At Onset Stroke Unknown Social History Social History Element Codes Description Effec tive Dates Marital status Unknown 04/13/2024 Marital status Unknown 04/13/2024 Living arrangements Unknown Assisted Living 04/[address]: 9778888 Former smoker 04/[address]: 0543802 Former smoker 04/[address]: 124936262 No Alcohol Consum ption 04/13/[address]: 413063 Currently drin ks alcohol 04/13/2024 Sexually Active? [...] No Inactive Date A ctive SIMVASTATIN RxNorm: 66202 04/13/2024 No Inactive D ate Active Penicillin Unknown 04/13/2024 No Inactive Date A ctive CLOPIDOGREL Unknown 03/23/2024 No Inactive Date Active naproxen RxNorm: 7258 04/13/2024 No Inactive Date Active levofloxacin RxNorm: 39484 03/23/2024 No Inactive Date Active Levemir Unknown 03/23/2024 No Inactive Date Ac tive metformin RxNorm: 081587 04/13/2024 No Inactive Da te Active ESTROGENS Unknown 03/23/2024 No Inactive Date Ac tive Atenolol RxNorm: 1202 04/13/2024 No Inactive Date Active metoprolol succinate RxNorm: 811180 03/23/2024 No Inactive Date Active Januvia RxNorm: 493802 04/13/2024 No Inactive Da te Active furosemide RxNorm: 4603 03/23/2024 No Inactive Balaji e Active azithromycin RxNorm: 96588 04/13/2024 No Inactive Date Active losartan RxNorm: 300413 04/13/2024 No Inactive Da te Active NSAIDS Unknown 03/23/2024 No Inactive Date Ac tive Amlodipine RxNorm: 098146 04/13/2024 No Inactive D ate Active LISINOPRIL RxNorm: 24852 04/13/2024 No Inactive Da te Active PIOGLITAZONE [...] 2 diabetes mellitus without complication, unspecified whether intermediate project manager insulin use ICD-10: E11.9 ICD-9: 250.00 06/29/2024 Active ACP (advance care planning) SNOMED CT: 3 96119481 ICD-10: Z71.89 ICD-9: V65.49 06/01/2024 Active Adult general medical exam SNOMED CT: 30 8036113 ICD-10: Z00.00 ICD-9: V70.9 06/01/2024 Active Atherosclerosis of coronary artery of [place] heart without angina pectoris, unspecified vessel or lesion type ICD-10: I25.10 ICD-9: 414.01 06/01/2024 Active Atrial fibrillation, unspecified type ICD-10: I48.91 ICD-9: 427.31 06/01/2024 Active 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 ICD-9: 311 06/01/[address]: 786991751 ICD-10: R54 ICD-9: 797 06/01/2024 Active Mixed [...] fracture of L1 vertebra, sequela SNOMED CT: 403973412 ICD-10: S32.010S ICD-9: 905.1 04/13/2024 Active Dementia in other diseases classified elsewhere, unspecified severity, without behavioral disturbance, psychotic disturbance, mood disturbance, and anxiety ICD-10: F02.80 04/13/[address]: 168832488 ICD-10: K57.90 ICD-9: 562.10 04/13/2024 Active History of breast cancer SNOMED CT: 4290 14089 ICD-10: Z85.3 ICD-9: V10.3 04/13/2024 Active History of melanoma SNOMED CT: 002235641 ICD-10: Z85.820 ICD-9: V10.82 04/13/2024 Active History of TIA (transient ischemic attack) SNOMED CT: 531512309 ICD-10: Z86.73 ICD-9: V12.54 04/13/2024 Active Hyperlipidemia, unspecified hyperlipidemia type SNOMED CT: 43808136 ICD-10: E78.5 ICD-9: 272.4 04/13/2024 Active Statin intolerance SNOMED CT: 698031158 ICD-10: Z78.9 ICD-9: 995.27 04/13/2024 Active Urinary incontinence, unspecified type SNOMED CT: 185112871 ICD-10: R32 ICD-9: 788.30 04/13/2024 Active Vascular dementia, unspecifi ed severity, without behavioral disturbance, psychotic disturbance, mood disturbance, and anxiety ICD-10: F01.50 04/13/2024 Active Medications Medication Codes Instructions Start Date Stop Date Status Fill Instructions Oyster Shell Calcium-500 500 mg (as carbonate 1,250 mg) tablet RxNorm: 337908 1 TABLET ORALLY DAILY FOR BONE HEALTH 07/09/19 026 Active PLEASE SEND REFILLS.PHARMA [employer] PLEASE PROFILE FOR FUTURE USE-[employer] ords Vitron-C 65 mg iron-125 mg tablet,delayed release RxNorm: 5726729 1 Tablet(s) Oral QOD every other day 07/09/19 026 Active PLEASE SEND REFILLS.[employer] PLEASE PROFILE FOR FUTURE USE-[employer]ag[employer] ords Co Q-10 200 mg capsule RxNorm: 890034 1 CAPSULE ORALLY DAILY W/ 100MG CAP FOR A TOTAL DOSE OF 300MG (DX: SUPPLEMENT) 07/09/19 026 Active PLEASE SEND REFILLS.[employer] PLEASE PROFILE FOR FUTURE USE-[employer] or[employer] oxybutynin chloride ER 10 mg tablet,extended release 24 hr RxNorm: 726910 1 TAB ORALLY EVERY EVENING FOR BLADDER SPASMS 07/09/19 Active PLEASE SEND REFILLS.PHARMA CY PLEASE PROFILE FOR FUTURE USE-[employer] or[facility] Trelegy Ellipta 200 mcg-62.5 mcg-25 mcg powder for inhalation RxNorm: 3307414 INHALE 1 PUFF INTO THE LUNGS EVERY 24 HOURS (DX: CHRONIC OBSTRUCTIVE PULMONARY DISEASE) 07/09/19 Active PLEASE SEND REFILLS.PHARMA CY PLEASE PROFILE FOR FUTURE USE-[employer] fluoxetine 10 mg capsule RxNorm: 744407 1 CAPSULE ORALLY DAILY (DX: DEPRESSION) (DX: ANXIETY) 07/09/19 Active PLEASE SEND REFILLS.PHARMA CY PLEASE PROFILE FOR FUTURE USE-[employer] cyanocobalamin (vit B-12) 500 mcg tablet RxNorm: 077676 1 TABLET ORALLY DAILY (DX: ANEMIA) 07/09/19 Active PLEASE SEND REFILLS.PHARMA CY PLEASE PROFILE FOR FUTURE USE-[employer] irbesartan 150 mg tablet RxNorm: 135412 1 TABLET ORALLY 2 TIMES DAILY (DX: HYPERTENSION) 07/09/19 Active PLEASE SEND REFILLS.PHARMA CY PLEASE PROFILE FOR FUTURE USE-[employer] cholecalciferol (vitamin D3) 25 mcg (1,000 unit) tablet RxNorm: 073818 1 TABLET ORALLY DAILY (DX: VITAMIN D DEFICIENCY) 07/09/19 Active PLEASE SEND REFILLS.PHARMA CY PLEASE PROFILE FOR FUTURE USE-[employer] quetiapine 25 mg tablet RxNorm: 924782 1 TABLET ORALLY AT BEDTIME (DX: ANXIETY) 07/09/19 Active PLEASE SEND REFILLS.PHARMA CY PLEASE PROFILE FOR FUTURE USE-[employer] hydrochlorothiazide 25 mg tablet RxNorm: 591390 1 TABLET ORALLY DAILY (DX: HYPERTENSION) 07/09/19 25 Active PLEASE SEND REFILLS.PHARMA CY PLEASE PROFILE FOR FUTURE USE-[employer] coenzyme Q10 100 mg capsule RxNorm: 990616 1 CAPSULE ORALLY DAILY W/ 200MG CAP FOR A TOTAL DOSE OF 300MG (DX: SUPPLEMENT) 07/09/19 25 026 Active PLEASE SEND REFILLS.PHARMA CY PLEASE PROFILE FOR FUTURE USE-[employer] donepezil 10 mg tablet RxNorm: 911013 1 TABLET ORALLY AT BEDTIME (DX: DEMENTIA) 07/09/19 25 Active PLEASE SEND REFILLS.PHARMA CY PLEASE PROFILE FOR FUTURE USE-Medical[employer] or[employer] Contour Next EZ Meter RxNorm: USE TO JENIFER T BLOOD GLUCOSE DAILY (DX: DIABETES TYPE 2) 07/09/19 25 Active PLEASE SEND REFILLS.PHARMA CY PLEASE PROFILE FOR FUTURE USE-[employer] or[employer] alcohol swabs RxNorm: 033387 USE DIRECTED 07/09/19 25 Active PLEASE SEND REFILLS.PHARMA CY PLEASE PROFILE FOR FUTURE USE-Medical[employer] ords Alejandra Protect (zinc oxide) 12 % topical cream RxNorm: 757016 APPLY TO RIGHT BUTTOCK 2 TIMES DAILY;APPLY TO RIGHT BUTTOCK NEEDED WITH SOILING 06/12/19 25 Active albuterol sulfate HFA 90 mcg/actuation aerosol inhaler RxNorm: 9736726 Inhale 2 Puff(s) Inhalation Q4H every four hours as needed 06/01/19 No Stop Date Active Alejandra Protect (zinc oxide) 12 % topical cream RxNorm: 723643 cream Topical apply to right buttocks BID and PRN with soiling 06/01/19 25 Inactive Lantus Solostar U-100 Insulin 100 unit/mL (3 mL) subcutaneous pen RxNorm: 744779 Unit(s) Subcutaneous prime en with 2 units, then inject 8 units SQ QD at bedtime 05/18/19 25 026 Active potassium chloride ER 10 mEq tablet,extended release RxNorm: 496904 Take 1 Tablet(s) Oral QD 04/12/19 No Stop Date Active acetaminophen 500 mg tablet RxNorm: 312877 Take 2 Tablet(s) Oral TID as needed 04/12/19 25 No Stop Date Active fluoxetine 10 mg capsule RxNorm: 422445 Take 1 Capsule(s) Oral QD 04/12/19 25 025 Inactive hydrochlorothiazide 25 mg tablet RxNorm: 246156 Take 1 Tablet(s) Oral QD 04/12/19 025 Inactive Oyster Shell Calcium 500 mg (as calcium carbonate 1,250 mg) tablet RxNorm: 787576 Take 1 Tablet(s) Oral QD 04/12/19 025 Inactive Co Q-10 200 mg capsule RxNorm: 292963 Capsule(s) Oral take 1 cap po daily with 100mg tab to =300mg daily 04/12/19 025 Inactive Co Q-10 100 mg capsule RxNorm: 051305 Capsule(s) Oral take 1 cap daily along with 200mg tab to =300mg daily 04/12/19 025 Inactive quetiapine 25 mg tablet RxNorm: 563083 Take 1 Tablet(s) Oral QHS every night at bedtime 04/12/19 025 Inactive Vitamin D3 25 mcg (1,000 unit) tablet RxNorm: 765331 Take 1 Tablet(s) Oral QD 04/12/19 025 Inactive donepezil 10 mg tablet RxNorm: 181728 Take 1 Tablet(s) Oral QHS every night at bedtime 04/12/19 025 Inactive cyanocobalamin (vit B-12) 500 mcg tablet RxNorm: 632151 Take 1 Tablet(s) Oral QD 04/12/19 025 Inactive oxybutynin chloride ER 10 mg tablet,extended release 24 hr RxNorm: 059754 Take 1 Tablet(s) Oral QPM every evening 04/12/19 025 Inactive irbesartan 150 mg tablet RxNorm: 286895 Take 1 Tablet(s) Oral BID 04/12/19 025 Inactive Trelegy Ellipta 200 mcg-62.5 mcg-25 mcg powder for inhalation RxNorm: 4557537 Inhale 1 Puff(s) Inhalation every 24 hours 04/12/19 025 Inactive Vitron-C 65 mg iron-125 mg tablet,delayed release RxNorm: 0240168 Take 1 Tablet(s) Oral QOD every other day 04/12/19 025 Inactive Eliquis 5 mg tablet RxNorm: 6045470 Take 1 Tablet(s) Oral BID 04/12/19 25 025 Inactive Lantus Solostar U-100 Insulin 100 unit/mL (3 mL) subcutaneous pen RxNorm: 364327 Unit(s) Subcutaneous prime en with 2 units, [...] Result Date Service Location CBC with Platelets [id number] WBC COUNT (AUTOMATED) 4.1 10e3/uL 06/05/19 25 Unknown CBC with Platelets UDU282 RBC COUNT 789-8 4.37 10e6/uL 06/05/19 25 Unknown CBC with Platelets TNC997 Hemoglobin 718-7 13.5 g/dL 06/05/19 25 Unknown CBC with Platelets UHC965 Hematocrit 4544-3 42.8 % 06/05/19 25 Unknown CBC with Platelets SZQ434 MCV 787-2 98 fL 06/05/19 25 Unknown CBC with Platelets CHC863 MCH 30.9 pg 06/05/19 25 Unknown CBC with Platelets LRG915 MCHC 31.5 g/dL 06/05/19 25 Unknown CBC with Platelets CST013 RDW 16.5 % 06/05/19 25 Unknown CBC with Platelets NZO578 Platelet Count 777-3 181 10e3/uL 06/05/19 25 Unknown Hemoglobin A1c LAB90 EST AVERAGE GLUCOSE 151 mg/dL 06/05/19 25 Unknown Hemoglobin A1c LAB90 Hemoglobin A1c 16227-7 6.9 % 06/05/19 25 Unknown Glucose DNV8253 Sodium 140 mmol/L 06/05/19 25 Unknown Glucose HXM5052 POTASSIUM (XU) 2823-3 3.5 mmol/L 06/05/19 25 Unknown Glucose NFJ6750 CHLORIDE (XU) 100 mmol/L 25 Unknown Glucose PMQ9621 CO2 (XU) 28 mmol/L 06/05/19 25 Unknown Glucose YGE9944 ANION GAP (XU) 12 mmol/L 06/05/19 25 Unknown Glucose XZK9138 UREA NITROGEN (XU) 13.7 mg/dL 06/05/19 25 Unknown Glucose DMW7617 Creatinine 0.75 mg/dL 06/05/19 25 Unknown Glucose XQD6157 GFR, ESTIMATE 19980-9 76 mL/min/1.73m 2 06/05/19 25 Unknown Glucose SNF4979 Calcium 9.3 mg/dL 06/05/19 25 Unknown Basic Metabolic Panel HRE9623 POTASSIUM (XU) 2823-3 3.5 mmol/L 06/05/19 25 Unknown Basic Metabolic Panel RMK7514 CHLORIDE (XU) 100 mmol/L 06/05/19 25 Unknown Basic Metabolic Panel QKO2631 CO2 (XU) 28 mmol/L 06/05/19 25 Unknown Basic Metabolic Panel [id number] Calcium 9.3 mg/dL 06/05/19 25 Unknown Basic Metabolic Panel UJP4011 ANION GAP (XU) 12 mmol/L 06/05/19 25 Unknown Basic Metabolic Panel GQW2712 Creatinine 0.75 mg/dL 06/05/19 25 Unknown Basic Metabolic Panel [id number] GLUCOSE (XU) 2345-7 79 mg/dL 06/05/19 25 Unknown Basic Metabolic Panel QZZ8103 Sodium 140 mmol/L 06/05/19 25 Unknown Basic Metabolic Panel KRA6197 UREA NITROGEN (XU) 13.7 mg/dL 06/05/19 25 Unknown Basic Metabolic Panel AWL1168 GFR, ESTIMATE 99670-0 76 mL/min/1.73m 2 06/05/19 25 Unknown Urine Culture 36268 URINE CULTURE 13785-3 SEE RESU LTS BELOW 06/04/19 25 Unknown PHQ9 PHQ9 04818-1 1 06/02/19 Unknown UA with Microscopic 06275 COLOR Light Yellow 06/01/19 Unknown UA with Microscopic 32497 Appearance Slightly Cloudy 06/01/19 Unknown UA with Microscopic 33036 GLUCOSE, URINE Negative mg/dL 06/01/19 Unknown UA with Microscopic 28034 BILIRUBIN, URINE Negative 06/01/19 Unknown UA with Microscopic 81832 Ketones Urine Negative mg/dL 06/01/19 Unknown UA with Microscopic 85706 Specific [place] Urine 1.012 06/01/19 Unknown UA with Microscopic 83728 BLOOD, URINE Negative 06/01/19 Unknown UA with Microscopic 80967 pH Urine 6.5 06/01/19 Unknown UA with Microscopic 09837 Protein urine Negative mg/dL 06/01/19 Unknown UA with Microscopic 03184 UROBILINOGEN IRIS Normal mg/dL 06/01/19 Unknown UA with Microscopic 85657 Nitrites Positive 06/01/19 Unknown UA with Microscopic 08518 LEUK ESTERASE Trace 06/01/19 Unknown UA with Microscopic 86460 Bacteria Few /HPF 06/01/19 Unknown UA with Microscopic 27449 WBC CLUMPS 6690-2 Present /HPF 06/01/19 Unknown UA with Microscopic 31665 Mucus Urine Present /LPF 06/01/19 Unknown UA with Microscopic 84797 RBC Urine <1 /HPF 06/01/19 Unknown UA with Microscopic 57457 SQUAMOUS EPITHELIAL 2 /HPF 06/01/19 Unknown UA with Microscopic 68286 WBC Urine 68706-2 26 /HPF 06/01/19 Unknown Urine Culture 34323 URINE CULTURE 13468-2 SEE RESU LTS BELOW 05/23/19 Unknown UA with Microscopic 91098 COLOR Yellow 05/22/19 Unknown UA with Microscopic 76498 Appearance Slightly Cloudy 05/22/19 Unknown UA with Microscopic 30004 GLUCOSE, URINE Negative mg/dL 05/22/19 Unknown UA with Microscopic 87708 BILIRUBIN, URINE Negative 05/22/19 Unknown UA with Microscopic 54977 Ketones Urine Negative mg/dL 05/22/19 Unknown UA with Microscopic 60589 Specific [place] Urine 1.013 05/22/19 Unknown UA with Microscopic 89993 BLOOD, URINE Negative 05/22/19 Unknown UA with Microscopic 72509 pH Urine 6.5 05/22/19 25 Unknown UA with Microscopic 46007 Protein urine 10 mg/dL 05/22/19 25 Unknown UA with Microscopic 72630 UROBILINOGEN IRIS Normal mg/dL 05/22/19 25 Unknown UA with Microscopic 73912 Nitrites Positive 05/22/19 25 Unknown UA with Microscopic 04436 LEUK ESTERASE Large 05/22/19 25 Unknown UA with Microscopic 00059 Bacteria Few /HPF 05/22/19 25 Unknown UA with Microscopic 92338 Mucus Urine Present /LPF 05/22/19 25 Unknown UA with Microscopic 05122 RBC Urine 0 /HPF 05/22/19 25 Unknown UA with Microscopic 94261 SQUAMOUS EPITHELIAL 3 /HPF 05/22/19 25 Unknown UA with Microscopic 75554 WBC Urine 54402-9 24 /HPF 05/22/19 25 Unknown UA with Microscopic 52376 TRANSITIONAL EPI <1 /HPF 05/22/19 25 Unknown PHQ9 PHQ9 99326-6 2 04/13/19 25 Unknown SLUMS SLUMS 01915-7 13 04/13/19 25 Unknown Procedures Procedure Codes Date HG A1C LEVEL LT 7.0% CPT-4: 3044F 06/29/2024 PT INELIG NEG SCRN DEPRES SNOMED CT: 428 516209036597 CPT-4: G8510 06/01/2024 PT INELIG NEG SCRN DEPRES SNOMED CT: 428 868531567555 CPT-4: G8510 04/13/2024 Vital Signs Date Vital 06/29/2024 Blood Pressure 1: 132/82 Code: 8480-6 Heart Rate 1: 66 bpm Code: 8867-4 Respiratory Rate: 18 bpm SpO2: 95% Temperature: 36.3 (C) / 97.3 (F) 06/01/2024 Blood Pressure 1: 150/90 Code: 8480-6 BMI: NaN Code: 22922-1 Heart Rate 1: 71 bpm Code: 8867-4 [...] Encounter Performer Location Location Address Codes Date ([id number]) Home Visit - Est Pt, moderate Diagnosis: Acute cystitis without hematuria[ICD10: N30.00] Diagnosis: Chronic heart failure with preserved ejection fraction[ICD10: I50.32] Diagnosis: Iron deficiency anemia, unspecified iron deficiency anemia type[ICD10: D50.9] Diagnosis: Type 2 diabetes mellitus without complication, unspecified whether mcfp insulin use[ICD10: E11.9] Diagnosis: Chronic obstructive pulmonary disease, unspecified COPD type[ICD10: J44.9] Teresamarcellus Boothe[address] [address] CPT-4: 55361 06/29/2024 ([id number]) Medicare Annual Wellness Visit (AWV), Subsequent Diagnosis: Adult general medical exam[SNOMED: 131264638] Diagnosis: ACP (advance care planning)[SNOMED: 809346338] Diagnosis: Frailty[SNOMED: 138792977] Diagnosis: Atherosclerosis of coronary artery of [place] heart without angina pectoris, unspecified vessel or [...] 2 diabetes mellitus without complication, unspecified whether intermediate project manager insulin use[ICD10: E11.9] Diagnosis: Unintentional weight loss[ICD10: R63.4] Diagnosis: Unsteady gait[ICD10: R26.81] Diagnosis: Venous insufficiency of both lower extremities[ICD10: I87.2] Diagnosis: Acute cystitis without hematuria[SNOMED: 87765217] Diagnosis: Pressure injury of left buttock, stage 2[ICD10: L89.322] Teresa Laws[address] [address] CPT-4: G0439 06/01/2024 ([id number]) Home Visit - Est Pt, moderate Diagnosis: Adult general medical exam[SNOMED: 383334277] Diagnosis: ACP (advance care planning)[SNOMED: 994079386] Diagnosis: Frailty[SNOMED: 461184967] Diagnosis: Atherosclerosis of coronary artery of [place] heart without angina pectoris, unspecified vessel or [...] 2 diabetes mellitus without complication, unspecified whether mcfp insulin use[ICD10: E11.9] Diagnosis: Unintentional weight loss[ICD10: R63.4] Diagnosis: Unsteady gait[ICD10: R26.81] Diagnosis: Venous insufficiency of both lower extremities[ICD10: I87.2] Diagnosis: Acute cystitis without hematuria[SNOMED: 80204097] Diagnosis: Pressure injury of left buttock, stage 2[ICD10: L89.322] [facility] [place] [address] CPT-4: 61606 06/01/2024 ([id number]) Home or Residence Visit Est Pt - Moderate Level, 40 mins 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] Diagnosis: Primary hypertension[ICD10: I10] Diagnosis: Pressure injury of left buttock, stage 2[SNOMED: 80837405133505] Diagnosis: Type 2 diabetes mellitus without complication, unspecified whether intermediate project manager insulin use[ICD10: E11.9] Teresa [facility] [place] [address] CPT-4: 10637 05/04/2024 ([id number]) Home or Residence Visit CONSTRUCTION ESTIMATOR - Moderate Level, 60 mins Diagnosis: Statin intolerance[SNOMED: 541228023] Diagnosis: Mixed Alzheimer and vascular dementia[SNOMED: 84662968405092] Diagnosis: Vascular dementia, unspecified severity, without behavioral disturbance, psychotic disturbance, mood disturbance, and anxiety[ICD10: F01.50] Diagnosis: Dementia in other diseases classified elsewhere, unspecified severity, without behavioral disturbance, psychotic disturbance, mood disturbance, and anxiety[ICD10: F02.80] Diagnosis: History of TIA (transient ischemic attack)[SNOMED: 493567683] Diagnosis: Type 2 diabetes mellitus without complication, unspecified whether intermediate project manager insulin use[SNOMED: 87326761] Diagnosis: Venous insufficiency of both lower extremities[SNOMED: 903523505] Diagnosis: Hyperlipidemia, unspecified hyperlipidemia type[SNOMED: 26172471] Diagnosis: Unintentional weight loss[SNOMED: 608564089] Diagnosis: Urinary incontinence, unspecified type[SNOMED: 161136086] Diagnosis: Depression due to dementia[SNOMED: 62284727] Diagnosis: Compression fracture of L1 vertebra, sequela[SNOMED: 029301589] Diagnosis: Atherosclerosis of coronary artery of [place] heart without angina pectoris, unspecified vessel or lesion type[SNOMED: 716737598] Diagnosis: Unsteady gait[SNOMED: 03233155] Diagnosis: Iron deficiency anemia, unspecified iron deficiency anemia type[SNOMED: 14556421] Diagnosis: Osteopenia, unspecified location[SNOMED: 749476708] Diagnosis: CAMILO (obstructive sleep apnea)[SNOMED: 87171983] Diagnosis: Chronic obstructive pulmonary disease, unspecified COPD type[SNOMED: 87949060] Diagnosis: History of breast cancer[SNOMED: 771667061] Diagnosis: History of melanoma[SNOMED: 326033856] Diagnosis: Primary hypertension[SNOMED: 79905586] Diagnosis: Chronic heart failure with preserved ejection fraction[SNOMED: 399871603] Diagnosis: Diverticulosis[SNOMED : 990635717] Diagnosis: Atrial fibrillation, unspecified type[SNOMED: 81992940] Diagnosis: Advance care planning[SNOMED: 801222071] Teresa Talbot [address] [address] CPT-4: 30101 04/13/2024 Plan of Care Planned Activity Notes [...] Complet ed 05/04/2024 Appointment: Michela Talbot WPtel: [address] [place] [address] 04/13/2024 Patient Education: Patient Medication Summary Completed 04/13/2024 Patient Education: Influenza Complet ed 04/13/2024 Patient Education: Alzheimer''s Disease Completed 04/13/2024 Patient Education: Dementia Complete d 04/13/2024 Instructions Comment Date Alyx resides at [facility] since about 2021. Previously lived independently in [place]. . Has one daughter Maggie who is involved in healthcare. PMH: History of breast cancer and melanoma, mixed dementia, depression, CAD, HLD, history of CVA/TIA, compression fx of L1 vertebrae, urinary incontinence, hearing loss, osteopeniaPrimary contact: Maggie Gallegos (Daughter)Code Status: DNR/SelectLab Schedule: Mar/SepSpecialists: [facility] (Q[facility]), Cardiology [facility] (MD Echo) 06/11/2024 Type 2 diabetes mellitus wit hout complication, unspecified whether mcfp insulin use Sugars reviewed; most readings < [...] 2 diabetes mellitus without complication, unspecified whether mcfp insulin use Sugars reviewed; remain in 80s-100s. [...] of care. Atherosclerosis of coronary artery of [place] heart without angina pectoris, unspecified vessel or [...] diabetes mellitus wit hout complication, unspecified whether intermediate project manager insulin use Sugars reviewed; remain in 80-90s [...] fibrillation, unspecified type Has seen cardiology in [place] 01/2024. Managed on eliquis 5mg BID. No excessive bruising or bleeding on exam. Atherosclerosis of coronary artery of [place] heart without angina pectoris, unspecified vessel or [...]
--- OUTSIDE RECORDS SUMMARY | 2024-07-10 17:32 | XMS_ITS ---
Author Organization [facility] Address [address] , [address] [place] [address] Phone Care Team Providers Care Solar System Installer Name Role Phone Narendra Ricardo MD Unavailable [...] Appointment 01:00 PM Laila Larkin PA-C, [address], [address], [place], [address], Pending order Follow up DOUGLAS Pending order Follow up DOUGLAS Pending order Patient Instruct ions Procedures Code Procedure Name Date Entry Date SCT-[id number] Documentation of current medicatio ns [facility]-[id number] Documentation of current medicatio ns ORDERS Patient Instructions Vital Signs Date Name Value Unit Description Height 66 [in_us] height E&M Immunizations No information available. Advance Directives No information available.
--- OUTSIDE RECORDS SUMMARY | 2024-07-10 17:32 | XMS_ITS | Clinical Summary ---
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 Gender Identity Not on file Sexual Orientation [...] Age-related physical debility Atherosclerotic heart disease of [place] coronary artery without angina pectoris Unspecified atrial [...] Age-related physical debility Atherosclerotic heart disease of [place] coronary artery without angina pectoris Unspecified atrial [...] Age-related physical debility Atherosclerotic heart disease of [place] coronary artery without angina pectoris Unspecified atrial [...] Age-related physical debility Atherosclerotic heart disease of [place] coronary artery without angina pectoris Unspecified atrial [...] Age-related physical debility Atherosclerotic heart disease of [place] coronary artery without angina pectoris Unspecified atrial [...] FREE T4 REFLEX STAT 04/07/2020 1:59 PM OIL DISPATCHER COLONOSCOPY Routine 04/15/2019 11:47 AM OIL DISPATCHER OCCULT BLOOD STOOL STAT 04/12/2019 3: 27 PM OIL DISPATCHER LIPID PROFILE Timed 04/20/2010 6:16 AM OIL DISPATCHER EYE EXAM - HIM SCAN 12/18/2005 1 2:00 AM CDT C MAMMOGRAM, SCREENING Routine 04/08/2003 1:03 PM OIL DISPATCHER Screening Mamm-Mailg Neopl-Other C FOOT EXAM Routine 03/30/2003 5:13 PM OIL DISPATCHER Diabetes Uncompl Adult-Type Ii from Last 3 Months or Most Recently Relevant to Health Maintenance Results * Trip Charge - LAB ONLY (06/04/2024 10:51 AM CDT) Other TOPOGRAPHY UNKNOWN / Unknown Billing only / Unknown 06/04/2024 10:51 AM CDT 06/04/2024 2:32 PM CDT us Margaux Talbot PA-C LAB CHARGE PERFORMABL ES Final Result [facility] [address] [place] [address], [facility] * Basic Metabolic Panel No Glucose (OUTREACH) [...] BLOOD ORDERABLE S Final Result [facility]AT[facility] [place] [facility] [address] [facility], [address] * Glucose (OUTREACH) (06/04/2024 10:51 AM CDT) Glucose 79 70 - 99 mg/dL 06/04/2024 6:33 PM CDT [facility] Blood STRUCTURE OF LEFT UPPER LIMB / Unknown Venipuncture / Unknown 06/04/2024 10:51 AM CDT 06/04/2024 2:32 PM CDT us Margaux Talbot PA-C LAB - BLOOD ORDERABLE S Final Result [facility] [place] [facility] [address] [facility], [address] * (ABNORMAL) Hemoglobin A1c (06/04/2024 10:51 [...] BLOOD ORDERABLE S Final Result [facility] [place] [facility] [address] [facility], [address] [place] [phone] * (ABNORMAL) CBC with platelets [...] BLOOD ORDERABLE S Final Result [facility] [place] [facility] [address] [facility] [address], [address] [place] [phone] * (ABNORMAL) UA with Microscopic [...] 05/31/2024 8:49 AM CDT [facility] Specific [place]rell Urine 1.012 1.003 - 1.035 05/31/2024 8:49 [...] URINE ORDERABLE S Final Result [facility] [address] [facility], [address] [place], [place] [phone] * (ABNORMAL) Urine Culture (05/30/2024 [...] O RDERABLES Final Result [facility] IDD [facility]AT[facility] [address] [facility], [address] [place] [phone] * (ABNORMAL) Basic metabolic panel (12/11/2023 7:08 AM CDT) [facility] Signature Sodium 137 135 - [...] - BLOOD ORDERABLES Fi nal Result LABORATORY [facility] [address] (1st floor, no room number) [place] [phone] [place] [address] * Hepatic function panel (12/09/2023 10:08 PM [...] LAB - BLOOD ORDERABLES Final R esult [facility] [address] (1st floor, no room number) [place] [address] * TSH with free T4 reflex (04/07/2020 1:59 PM OIL DISPATCHER) TSH 1.10 0.40 - 4.00 mU/L 04/07/2020 2:42 PM OIL DISPATCHER [facility] Blood specimen (specimen) 04/07/2020 1:59 PM OIL DISPATCHER 04/07/2020 2:11 PM OIL DISPATCHER us Austin Mccarty PA-C LAB - BLOOD ORDERABLES Final Re sult [facility] [address] [place] [address], [facility] [phone] * COLONOSCOPY (04/15/2019 11:47 AM OIL DISPATCHER) COLONOSCOPY [facility] Patient Name: Alyx Sarmiento Procedure Date: 04/15/2019 [...] # [id number], [place] # [id number], SN # [id number] was introduced through the anus and advanced [...] Interventional Radiology Procedure Code(s): --- Professional --- 10484, Colonoscopy, flexible; diagnostic, including collection of specimen(s) by brushing or washing, when performed (separate procedure) CPT copyright 2018 [employer]. All rights reserved. The codes documented in this report are preliminary and upon wire fence builder review may be revised to meet current [...] PM RADIOLOGY RESULTS 04/15/2019 11:4 7 AM OIL DISPATCHER Dina Johnson MD PROCEDURES Final R esult RADIOLOGY RESULTS * (ABNORMAL) Occult blood stool (04/12/2019 3:27 PM OIL DISPATCHER) Occult Blood Positive(A ) NEG^Negati ve 04/12/2019 3:[address] [facility] Comment: Called to AGUSTIN DELANEY ([place]) ON 04.12.19 AT 1546 BY KV 04/12/2019 3:27 PM OIL DISPATCHER 04/12/2019 3:40 PM OIL DISPATCHER us Arley Ham MD LAB - STOOLS ORDERABLES Edited Result - Final Performing Organization Address [facility] Co de Phone Number [facility] [address] [place] [address], [facility] [phone] * (ABNORMAL) Lipid panel (04/20/2010 6:16 AM OIL DISPATCHER) Cholesterol 160 0 - 200 mg/dL MISYS [...] 0.0 - 5.0 MISYS 04/20/2010 6:16 AM OIL DISPATCHER 04/20/2010 7:00 AM OIL DISPATCHER us Pilo Ortiz DO LAB - BLOOD ORDERABLES Fin al Result MISYS * EYE EXAM - HIM SCAN (12/18/2005 12:00 AM CDT) 12/18/2005 us Provider Outside OTHER Final Result * MAMMOGRAM, SCREENING (04/08/2003 1:03 PM OIL DISPATCHER) MAMMOGRAM Anatomical Region Laterality Modality Mammography Impressions 04/08/2003 1:03 PM OIL DISPATCHER RADIOLOGIST'S INTERPRETATION: Breast parenchyma: fatty/mild densities IMAGING IMPRESSION: (CATEGORY-1) NEGATIVE Radiologist: Spencer Frye Apr Electronically filed by Kathleen Harrington 04/13/2003 2:52 PM Petr Lindquist MD SPECIAL IMAGING STUDIES Final R esult from Last 3 Months or Most Recently Relevant to Health Maintenance Insurance [facility] MEDICARE ADVANTAGE BCBS MEDICARE ADVANTAGE BCBS MEDICARE ADVANTAGE Advance Directives For more information, please contact: [phone] Documents on File Type Date Recorded Patient Exerciser Expl anation Advance Directives and Living Will [...] Gallegos Grandchild First Alternate Health Care Agent [email or web address] [email or web address] Care Teams Haunted History Tour Guide Relationship Specialty Start Date End Date Darlene Mendoza MD [facility] [address] [place] [address] PCP - General Family Medicine 07/19/22 Zahira Feldman MD [address] [place] [address] Ophthalmology 10/13/17 [facility], [address] [phone] 07/17/22 [facility] 07/15/22
[2024-07-10 17:44] LABS: Albumin* 4.3 g/dL (3.3-5.0); Chloride* 100 mmol/L (96-114); Sodium* 140 mmol/L (135-149)
[2024-07-10 17:45] LABS: Potassium* 3.7 mmol/L (3.6-5.1)
[2024-07-10 17:47] LABS: Alanine Aminotransferase* 27 U/L (4-35); Alkaline Phosphatase* 88 U/L (40-150); Anion Gap 7 mEq/L (7-15); Aspartate Amino Transferase* 37 U/L (12-35); Bilirubin Direct* 0.4 mg/dL (0.0-0.5); Bilirubin Total* 1.1 mg/dL (0.1-1.5); Blood Urea Nitrogen* 17 mg/dL (7-30); Carbon Dioxide* 33 mmol/L (20-32); Creatinine* 0.7 mg/dL (0.5-1.5); Estimated Glomerular Filt Rate 83 ml/min; Total Protein* 7.7 g/dL (6.0-8.3)
[2024-07-10 17:48] LABS: Calcium* 9.5 mg/dL (8.4-10.6); Glucose* 121 mg/dL (60-115)
[2024-07-10 18:00] LABS: Troponin I* 0.01 ng/mL (0.01-0.04)
--- NOTE | 2024-07-10 19:45 | ED.NURSE ---
Considering Pt listed allergies, Dr Su did discuss with Pt daughter whom states Pt has tolerated penicillin derivative medications. Dr. Su ok with Ertapenem.
[2024-07-10] MEDS: ERTAPENEM 1 GM in 0.9 % SODIUM CHLORIDE Mini-bag 100 ML IVPB (19:47)
--- NOTE | 2024-07-10 20:26 | ED.NURSE ---
Report given to MS RN.
--- NOTE | 2024-07-10 22:02 | P.IMHP_ITS ---
Assessment and Plan Assessment and plan (1) Pneumonia: Problem comment: Will start her on ceftriaxone and doxycycline Status: Acute (2) Respiratory syncytial virus (RSV): Problem comment: Patient tested positive for RSV on July 03 Status: Acute (3) Lung mass: Problem comment: CT chest: Masslike consolidation in the right apex measuring 3.6 cm. A few additional scattered indeterminate pulmonary nodules. Findings may reflect multifocal infection. Recommend unenhanced chest CT in 3 months after ap propriate therapy to document resolution and to assess malignant potential. Discussed with the daughter the need for follow-up and the possibility of malignancy. Status: Acute (4) Falls: Problem comment: Frequent falls Records from her PCP shows that she is on PT OT for her frequent falls Status: Acute (5) Afib: Problem comment: Atrial fibrillation, not on anticoagulation, daughter mentioned that her PCP discussed with her the chance of stroke per year. She does have high risk of fall, and that they discussed risk of stroke versus risk of bleeding with fall, the daughter would prefer at this point to not anticoagulate. PCP continue aspirin 81 mg, follow-up cardiology. 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 (8) Diabetes mellitus, controlled: Status: Chronic (9) Statin intolerance: Status: Acute (10) Obstructive sleep apnea syndrome: Problem comment: History of smoking Status: Acute (11) Hypertension: Status: Acute (12) Heart failure with preserved ejection fraction: Status: Acute (13) COPD (chronic obstructive pulmonary disease): Status: Acute (14) Living in assisted living: Problem comment: [phone] Status: Acute Total Time Spent Total Time Spent: Time spent: Today I spent 75 minutes seeing the patient, discussing the patient with ER staff, reviewing Expanse and EPIC notes/diagnostics, discussing the care plan with our care time that includes social work, PT/OT, pharmacy, RT, longterm and documenting my impressions and plan in the medical record. Hospitalist- H&P: LILIANA History of Present Illness Date Seen: 07/10/24 Chief complaint: fall Narrative: Alyx Sarmiento is a 89 year old female with past medical history of dementia, hypertension, diabetes, AFib, history of thalamic stroke, history of congestive heart failure with preserved ejection fraction, and COPD who presents to the ED due to frequent falls with her last fall occured at the senior living. She had fallen 3 times the last 5 days. She sustained injury to her face. No loss of consciousness. Patient was diagnosed with RSV infection on July 03 but was not admitted at that time. At the ED patient was hemodynamically stable, needing mild oxygen requirements. Patient does not use oxygen at home. Her labs mostly unremarkable. CT chest: Masslike consolidation in the right apex measuring 3.6 cm. A few additional scattered indeterminate pulmonary nodules. Findings may reflect multifocal infection. Recommend unenhanced chest CT in 3 months after appropriate therapy to document resolution and to assess malignant potential. Review of Systems Status of ROS: Reports: 6 or more systems reviewed and unremarkable except as noted in History and below [facility] Medical History (Updated 07/10/24 @ 22:34 by Meaghan Russ MD) Atrial fibrillation ?I48.91 - Unspecified atrial fibrillation (ICD-10) Lung mass ?R91.8 - Other nonspecific abnormal finding of lung field (ICD-10) Living in assisted living ?Z78.9 - Other specified health status (ICD-10) Cellulitis, toe ?L03.039 - Cellulitis of unspecified toe (ICD-10) Falls ?R29.6 - Repeated falls (ICD-10) Pain in toe ?M79.676 - Pain in unspecified toe(s) (ICD-10) Iron deficiency anemia ?D50.9 - Iron deficiency anemia, unspecified (ICD-10) Dementia ?F03.90 - Unspecified dementia, unspecified severity, without behavioral disturbance, psychotic disturbance, mood disturbance, and anxiety (ICD-10) Anemia ?D64.9 - Anemia, unspecified (ICD-10) Wrist pain ?M25.539 - Pain in unspecified wrist (ICD-10) POLST (Physician Orders for Life-Sustaining Treatment) ?Z78.9 - Other specified health status (ICD-10) Visit for review of DEXA scan ?Z71.2 - Person consulting for explanation of examination or test findings (ICD-10) Rib fracture ?S22.39XA - Fracture of one rib, unspecified side, initial encounter for closed fracture (ICD-10) Atherosclerotic heart disease ?I25.10 - Atherosclerotic heart disease of redding coronary artery without angina pectoris (ICD-10) Compression fracture Hearing loss ?H91.90 - Unspecified hearing loss, unspecified ear (ICD-10) 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 or stenosis of small artery (ICD-10) Diabetes mellitus, controlled ?E11.9 - Type 2 diabetes mellitus without complications (ICD-10) Encounter for medication review ?Z79.899 - Other intermediate project manager (current) drug therapy (ICD-10) Unintentional weight loss ?R63.4 - Abnormal weight loss (ICD-10) Hyperlipidemia ?E78.5 - Hyperlipidemia, unspecified (ICD-10) Depression ?F32.A - Depression, unspecified (ICD-10) Encounter for screening for severe acute respiratory syndrome coronavirus 2 (SARS-CoV-2) infection ?Z11.52 - Encounter for screening for COVID-19 (ICD-10) Edema ?R60.9 - Edema, unspecified (ICD-10) Diabetes mellitus ?E11.9 - Type 2 diabetes mellitus without complications (ICD-10) Surgical History 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 - Presence of right artificial shoulder joint (ICD-10) 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 (09/26/11) ?Z90.710 - Acquired absence of both cervix and uterus (ICD-10) ?Z90.722 - Acquired absence of ovaries, bilateral (ICD-10) ?Z90.79 - Acquired absence of other genital organ(s) (ICD-10) Status post reverse total replacement of left shoulder ?Z96.612 - Presence of left artificial shoulder joint (ICD-10) 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) ?Z96.651 - Presence of right artificial knee joint (ICD-10) History of partial surgical removal of colon (09/26/11) ?Z90.49 - Acquired absence of other specified parts of digestive tract (ICD- 10) History of colonoscopy ?Z98.890 - Other specified postprocedural states (ICD-10) History of cholecystectomy (09/26/11) ?Z90.49 - Acquired absence of other specified parts of digestive tract (ICD- 10) Family History Mother Family history of stroke or transient ischemic attack in mother Social History Narrative: advance directive in chart- 01/25/15 former cigarette smoker Smoking Status: Former smoker Do you use any of these nicotine containing products: None Second hand tobacco smoke exposure: No How often do you have a drink containing alcohol: 2-4 times a month How often do you have six or more drinks on one occasion: Never AUDIT-C Alcohol total score: 2 Non-prescribed substance use: denies use Meds Home Medications and Allergies Home Medications ?Medication ?Instructions ?Recorded ?Confirmed ?Type coenzyme Q10 300 mg capsule 300 mg PO DAILY 11/01/21 03/05/24 History cyanocobalamin (vitamin B-12) 500 500 mcg PO DAILY 11/01/21 03/05/24 History mcg tablet aspirin 81 mg tablet,delayed 81 mg PO QDAY 02/05/22 03/05/24 History release albuterol sulfate 90 mcg/actuation See Rx Instructions .Route 06/26/22 03/05/24 History aerosol inhaler .COMPLEX PRN calcium carbonate 1,000 mg PO QDAY 08/28/22 03/05/24 History cholecalciferol (vitamin D3) 25 25 mcg PO QDAY 08/28/22 03/05/24 History mcg (1,000 unit) capsule donepezil 10 mg tablet 10 mg PO QDAY 11/20/23 01/27/24 History iron,carbonyl 65 mg-vitamin C 125 1 tab PO QDAY 11/20/23 03/05/24 History mg tablet,delayed release (Vitron-C) Allergies Allergy/AdvReac Type Severity Reaction Status Date / Time amlodipine Allergy Severe Rash Verified 07/10/24 19:15 azithromycin Allergy Severe Limb pain, Verified 07/10/24 19:15 diarrhea furosemide Allergy Severe Hives Verified 07/10/24 19:15 metoprolol Allergy Severe Shortness Verified 07/10/24 19:15 of breath, chest pain, low pulse rate sitagliptin Allergy Severe Lost some Verified 07/10/24 19:15 sight in left eye exenatide Allergy Intermediate Sore Verified 07/10/24 19:15 throat, diarrhea, cough, headache levofloxacin Allergy Intermediate Bruising Verified 07/10/24 19:15 clopidogrel Allergy Mild Edema Verified 07/10/24 19:15 losartan Allergy Unknown Heart Verified 07/10/24 19:15 palpitations, shortness of breath penicillin V Allergy Unknown Verified 07/10/24 19:15 insulin detemir (From Allergy Verified 07/10/24 19:15 Levemir U-100 Insulin) metformin Allergy Verified 07/10/24 19:15 naproxen Allergy Verified 07/10/24 19:15 NSAIDS (Non-Steroidal Allergy Verified 07/10/24 19:15 Anti-Inflamma lisinopril AdvReac Severe Headaches, Verified 07/10/24 19:15 heart palpitations, muscle aches pioglitazone AdvReac Severe Hip and Verified 07/10/24 19:15 arm pain carvedilol AdvReac Mild Vomiting Verified 07/10/24 19:15 simvastatin AdvReac Unknown Fatigued Verified 07/10/24 19:15 Exam Narrative: Exam Narrative: Physical exam GENERAL: Comfortable, no acute distress. HEAD AND NECK: Traumatic bruising of the face CARDIOVASCULAR: Irregular. No murmurs. RESPIRATORY: Clear to auscultation B/L. Good air entry B/L. No wheezes or rhonchi. GASTROINTESTINAL: Not distended, not tender to palpation. NEUROLOGY: Alert, awake. Const: Vital Signs, click to edit/add: Vital Signs - 24 hr 07/10/24 16:44 07/10/24 17:01 07/10/24 17:42 Temperature 97.5 F L Pulse Rate 110 H Pulse Rate [Pulse Oximeter] 103 H Respiratory Rate 20 20 Blood Pressure Blood Pressure [Le ft Arm] Blood Pressure [Le ft Upper Arm] 181/115 H Pulse Oximetry 93 90 93 [facility] Oxygen Flow Rate 07/10/24 17:45 07/10/24 18:05 07/10/24 18:15 Temperature Pulse Rate 102 H 118 H 97 Pulse Rate [Pulse Oximeter] Respiratory Rate 8 L 43 H Blood Pressure Blood Pressure [Le ft Arm] Blood Pressure [Le ft Upper Arm] Pulse Oximetry 94 90 89 Oxygen Delivery Wa thod Oxygen Flow Rate 07/10/24 18:36 07/10/24 18:45 07/10/24 18:47 Temperature Pulse Rate 105 H 98 116 H Pulse Rate [Pulse Oximeter] Respiratory Rate 12 16 13 Blood Pressure 166/121 H Blood Pressure [Le ft Arm] Blood Pressure [Le ft Upper Arm] Pulse Oximetry 89 89 89 Oxygen Delivery Me thod Room Air Oxygen Flow Rate 07/10/24 19:00 07/10/24 19:02 07/10/24 19:21 Temperature Pulse Rate 139 H 109 H 125 H Pulse Rate [Pulse Oximeter] Respiratory Rate 19 28 H 31 H Blood Pressure Blood Pressure [Le ft Arm] Blood Pressure [Le ft Upper Arm] Pulse Oximetry 88 93 95 Oxygen Delivery Me thod Nasal Cannula Oxygen Flow Rate 07/10/24 19:23 07/10/24 19:30 07/10/24 19:36 Temperature Pulse Rate 109 H 119 H Pulse Rate [Pulse Oximeter] Respiratory Rate 31 H 31 H Blood Pressure Blood Pressure [Le ft Arm] Blood Pressure [Le ft Upper Arm] Pulse Oximetry 95 95 97 Oxygen Delivery Me thod Nasal Cannula Nasal Cannula Oxygen Flow Rate 1 07/10/24 19:45 07/10/24 19:53 07/10/24 20:00 Temperature Pulse Rate 115 H 130 H 138 H Pulse Rate [Pulse Oximeter] Respiratory Rate 47 H 33 H 18 Blood Pressure 161/139 H Blood Pressure [Le ft Arm] Blood Pressure [Le ft Upper Arm] Pulse Oximetry 95 97 97 Oxygen Delivery Me thod Nasal Cannula Oxygen Flow Rate 07/10/24 20:02 07/10/24 20:15 07/10/24 21:42 Temperature 97.5 F L Pulse Rate 164 H 124 H Pulse Rate [Pulse Oximeter] 83 Respiratory Rate 35 H 24 22 Blood Pressure 158/135 H Blood Pressure [Le ft Arm] 180/137 H Blood Pressure [Le ft Upper Arm] Pulse Oximetry 95 96 96 Oxygen Delivery Me thod Nasal Cannula Nasal Cannula Oxygen Flow Rate 1.0 Hospitalist - H&P: Result Labs Labs: Short CBC 07/10/24 Range/Units 17:22 WBC 4.26 L (4.50-11.00) K/uL Hgb 15.0 (12.0-16.0) gm/dL Hct 46.7 (33.0-51.0) % Plt Count 173 (140-440) K/uL BMP 07/10/24 17:22 Sodium 140 Potassium 3.7 Chloride 100 Carbon Dioxide 33 H BUN 17 Creatinine 0.7 Glucose 121 H Calcium 9.5 Cardiac Enzymes 07/10/24 Range/Units 17:22 Troponin I 0.01 (0.01-0.04) ng/mL Liver Function 07/10/24 Range/Units 17:22 Total Bilirubin 1.1 (0.1-1.5) mg/dL Direct Bilirubin 0.4 (0.0-0.5) mg/dL AST 37 H (12-35) U/L ALT 27 (4-35) U/L Alkaline Phosphatase 88 (40-150) U/L Albumin 4.3 (3.3-5.0) g/dL ECG Attestation: I personally reviewed and interpreted this ECG as follows: Interpretation: AFib, controlled heart rate at 72 beats per minute. Nonspecific ST and T wave changes Imaging CT scan - chest: Attestation: I have reviewed the pertinent imaging results. Radiologist's impression: INDICATION: .COUGH, RSV + HX OF CHEST MASS, RIB PAIN TECHNIQUE: CT chest was acquired with 75 cc Isovue 370 IV contrast. COMPARISON: June 2022. FINDINGS: Lungs and Airways: Motion throughout the exam. Mild interstitial edema. Expiratory imaging. Masslike consolidation in the right apex measuring 3.6 cm. A few additional scattered indeterminate pulmonary nodules. No endoluminal lesion. Heart and Mediastinum: Thyroid not visualized. No axillary or supraclavicular lymphadenopathy. No discrete lymphadenopathy. Cardiomegaly. Normal caliber aorta. Atherosclerotic and coronary artery calcifications. Pleura: The pleural spaces are normal. Abdomen: Calcified granulomas. Colonic diverticulosis. Chronic thickening of the adrenal glands. Bones and soft tissues: Bilateral shoulder arthroplasties. Old left-sided rib fractures. Old right-sided rib fractures. Old L1 vertebral body compression fracture. IMPRESSION: 1. Masslike consolidation in the right apex measuring 3.6 cm. A few additional scattered indeterminate pulmonary nodules. Findings may reflect multifocal infection. Recommend unenhanced chest CT in 3 months after appropriate therapy to document resolution and to assess malignant potential. 2. Cardiomegaly. Likely interstitial edema. Please note that all CT scans at this facility use dose modulation, iterative reconstruction, and/or weight-based dosing when appropriate to reduce radiation dose to as low as reasonably achievable. Dictated by Abram Lomeli MD @ 07/10/2024 7:15:08 PM
[2024-07-10] MEDS: cefTRIAXone 1 GM in 0.9 % SODIUM CHLORIDE Mini-bag 100 ML IVPB (22:19)
[2024-07-10] MEDS: FLUOXETINE HCL 10 MG CAPSULE PO (22:24)
[2024-07-10] MEDS: DOXYCYCLINE HYCLATE 100 MG PO (22:24)
[2024-07-10] MEDS: DONEPEZIL 10 MG TABLET PO (22:24)
[2024-07-10] MEDS: SODIUM CHLORIDE 0.9 % (FLUSH) 10 ML SYRINGE 5 ML IVF (22:24)
[2024-07-10] MEDS: ENOXAPARIN 40 MG/0.4 ML INJ SUBCUT (22:24)
[2024-07-10] MEDS: ASPIRIN 81 MG TABLET EC PO (22:24)
[2024-07-10] MEDS: ACETAMINOPHEN 500 MG TABLET 1000 MG PO (22:24)
[2024-07-10] MEDS: 0.9 % SODIUM CHLORIDE 250 ml IV (22:25)
[2024-07-10] MEDS: QUETIAPINE 25 MG TABLET PO (22:27)
[2024-07-11] VITALS (11 sets, daily range): BP systolic 132–188; BP diastolic 113–146; PULSE 81–147; RESP 18–36; TEMP 36.4–36.9; O2SAT 90–93
--- NOTE | 2024-07-11 06:02 | PC.NURSE ---
Patient admitted to the unit @2029 with family at bedside. Dementia. A1 pivot to BSC. 1lt O2 to maintain sats >88%. Tele shows afib w/HR 60-90. Afebrile. Intermittent moist cough. Several abrasions to the face GROOVING LATHE TENDER. Nystatin powder applied to reddened area under abd folds. Mepilex applied to macerated skin on sacral area.
[2024-07-11] MEDS: IPRAT-ALBUT 0.5-2.5 MG/3 ML NEB 1 NEB IH ×3 (06:26→17:25)
[2024-07-11 06:46] LABS: Hemoglobin* 14.1 gm/dL (12.0-16.0); Mean Corpuscular HGB Conc 32 gm/dL (32-36); Mean Corpuscular Hemoglobin 32 pg (26-34); Mean Corpuscular Volume 99 fL (80-100); Platelet Count* 181 K/uL (140-440); Red Blood Count 4.46 m/uL (4.00-5.20); White Blood Count* 4.66 K/uL (4.50-11.00)
[2024-07-11 06:47] LABS: Slide Review Reflex No
[2024-07-11 06:59] LABS: Chloride* 99 mmol/L (96-114); Sodium* 139 mmol/L (135-149)
[2024-07-11 07:00] LABS: Potassium* 3.3 mmol/L (3.6-5.1)
[2024-07-11 07:02] LABS: Blood Urea Nitrogen* 15 mg/dL (7-30); Creatinine* 0.7 mg/dL (0.5-1.5); Est. Creatinine Clearance* 33.58; Estimated Glomerular Filt Rate 83 ml/min
[2024-07-11 07:03] LABS: Anion Gap 6 mEq/L (7-15); Calcium* 8.9 mg/dL (8.4-10.6); Carbon Dioxide* 34 mmol/L (20-32); Glucose* 108 mg/dL (60-115); Magnesium* 1.8 mg/dL (1.5-2.6)
[2024-07-11] MEDS: FLUOXETINE HCL 10 MG CAPSULE PO (09:21)
[2024-07-11] MEDS: oxyBUTYnin chloride 5 MG TAB.ER.24 10 MG PO (09:21)
[2024-07-11] MEDS: hydroCHLOROthiazide 25 MG TABLET PO (09:21)
[2024-07-11] MEDS: DONEPEZIL 10 MG TABLET PO (09:21)
[2024-07-11] MEDS: ASPIRIN 81 MG TABLET EC PO (09:21)
[2024-07-11] MEDS: DOXYCYCLINE HYCLATE 100 MG PO ×2 (09:21→20:42)
[2024-07-11] MEDS: IRBESARTAN 150 MG TABLET PO ×2 (10:17→20:49)
[2024-07-11] MEDS: METOPROLOL TARTRATE 1 MG/ML inj 5 MG IVP ×2 (10:17→15:31)
[2024-07-11] MEDS: SODIUM CHLORIDE 0.9 % (FLUSH) 10 ML SYRINGE 5 ML IVF ×2 (10:17→20:43)
[2024-07-11] MEDS: NYSTATIN POWDER 1 APPLIC TOPICAL ×2 (10:18→20:43)
--- NOTE | 2024-07-11 15:34 | P.IMPN_ITS ---
Assessment and Plan Assessment and plan (1) Pneumonia: Problem comment: - on ceftriaxone and doxycycline Status: Acute (2) Respiratory syncytial virus (RSV): Problem comment: - Patient tested positive for RSV on July 03 Status: Acute (3) Lung mass: Problem comment: - CT chest: Masslike consolidation in the right apex measuring 3.6 cm. A few additional scattered indeterminate pulmonary nodules. Findings may reflect multifocal infection. Recommend unenhanced chest CT in 3 months after appropria te therapy to document resolution and to assess malignant potential. Discussed with the daughter the need for follow-up and the possibility of malignancy. Status: Acute (4) COPD (chronic obstructive pulmonary disease): Status: Acute (5) Afib: Problem comment: Atrial fibrillation, not on anticoagulation, daughter mentioned that her PCP discussed with her the chance of stroke per year. She does have high risk of fall, and that they discussed risk of stroke versus risk of bleeding with fall, the daughter would prefer at this point to not anticoagulate. PCP continue aspirin 81 mg, follow-up cardiology. Status: Acute (6) Living in assisted living: Problem comment: [phone] [facility] -07/11/2024: patient requiring increasing amount of services in still having many falls. Daughter, Mirela, believes her mother at least for a short period of times requires assisted services such as a transitional care placement. 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 Status: Chronic (8) Anemia: Problem comment: poor prep colonoscopy 2019, positive cologuard 2018 Status: Acute (9) Vascular dementia: Problem comment: Mixed dementia vascular Alzheimer's Status: Acute (10) Type 2 diabetes mellitus: Status: Acute (11) Transient ischemic attack (TIA): Status: Acute (12) Statin intolerance: Status: Acute Plan 1. I reviewed my impression, plans, recommendations with the patient and her daughter, Mirela, via telephone, - I missed her daughter when her daughter was visiting her in the hospital earlier today but did speak with her via telephone subsequently. 2. Answered their questions are satisfaction. 3. Given recent urinary tract infection and persistent decline in cognitive and functional status, will recheck urinalysis and urine culture. 4. Continue with current plan of care including consideration for transitional care services when she is ready for discharge from the hospital. Total Time Spent Total Time Spent: 45 minutes Subjective Date Seen: 07/11/24 Interval history: 07/10/2024, admission history of present illness: ?89 year old female with past medical history of dementia, hypertension, diabetes, AFib, history of thalamic stroke, history of congestive heart failure with preserved ejection fraction, and COPD who presents to the ED due to frequent falls with her last fall occurred at the long-term. She had fallen 3 times the last 5 days. She sustained injury to her face. No loss of consciousness. Patient was diagnosed with RSV infection on July 03 but was not admitted at that time. At the ED patient was hemodynamically stable, needing mild oxygen requirements. Patient does not use oxygen at home. Her labs mostly unremarkable. CT chest: Masslike consolidation in the right apex measuring 3.6 cm. A few additional scattered indeterminate pulmonary nodules. Findings may reflect multifocal infection. Recommend unenhanced chest CT in 3 months after appropriate therapy to document resolution and to assess malignant potential.? 07/11/2024: Hospital day 2. Sleepy this morning. More awake in the afternoon. Able to voice her needs readily when she is more awake. Tells me about her daughter. No obvious discomforts. Eating and drinking independently. Exam Narrative: Exam Narrative: Examined patient her hospital room. Abrasions and contusions on face. These were present on admission. Oriented to self. Able to sit at bedside without assistance. Able to feed self and drink without assistance. Lungs with right greater than left rhonchi that clear in great measure with coughing. No wheezing. Right end inspiratory fine rales. Chest wall excursions are full. No CVA tenderness. Heart tones with regular rhythm, normal S1-S2. Abdomen obese with active bowel sounds, soft, nontender. Has not required oxygen supplementation today with resting oxygen saturations of 90%. Trace edema pretibially bilaterally. Const: Vital Signs, click to edit/add: Vital Signs - 24 hr 07/10/24 16:44 07/10/24 17:01 07/10/24 17:42 Temperature 97.5 F L Pulse Rate 110 H Pulse Rate [Pulse Oximeter] 103 H Respiratory Rate 20 20 Blood Pressure Blood Pressure [Le ft Arm] Blood Pressure [Le ft Upper Arm] 181/115 H Pulse Oximetry 93 90 93 Oxygen Delivery Me thod Room Air Room Air Oxygen Flow Rate 07/10/24 17:45 07/10/24 18:05 07/10/24 18:15 Temperature Pulse Rate 102 H 118 H 97 Pulse Rate [Pulse Oximeter] Respiratory Rate 8 L 43 H Blood Pressure Blood Pressure [Le ft Arm] Blood Pressure [Le ft Upper Arm] Pulse Oximetry 94 90 89 Oxygen Delivery Me thod Oxygen Flow Rate 07/10/24 18:36 07/10/24 18:45 07/10/24 18:47 Temperature Pulse Rate 105 H 98 116 H Pulse Rate [Pulse Oximeter] Respiratory Rate 12 16 13 Blood Pressure 166/121 H Blood Pressure [Le ft Arm] Blood Pressure [Le ft Upper Arm] Pulse Oximetry 89 89 89 Oxygen Delivery Me thod Room Air Oxygen Flow Rate 07/10/24 19:00 07/10/24 19:02 07/10/24 19:21 Temperature Pulse Rate 139 H 109 H 125 H Pulse Rate [Pulse Oximeter] Respiratory Rate 19 28 H 31 H Blood Pressure Blood Pressure [Le ft Arm] Blood Pressure [Le ft Upper Arm] Pulse Oximetry 88 93 95 Oxygen Delivery Me thod Nasal Cannula Oxygen Flow Rate 07/10/24 19:23 07/10/24 19:30 07/10/24 19:36 Temperature Pulse Rate 109 H 119 H Pulse Rate [Pulse Oximeter] Respiratory Rate 31 H 31 H Blood Pressure Blood Pressure [Le ft Arm] Blood Pressure [Le ft Upper Arm] Pulse Oximetry 95 95 97 Oxygen Delivery Me thod Nasal Cannula Nasal Cannula Oxygen Flow Rate 1 07/10/24 19:45 07/10/24 19:53 07/10/24 20:00 Temperature Pulse Rate 115 H 130 H 138 H Pulse Rate [Pulse Oximeter] Respiratory Rate 47 H 33 H 18 Blood Pressure 161/139 H Blood Pressure [Le ft Arm] Blood Pressure [Le ft Upper Arm] Pulse Oximetry 95 97 97 Oxygen Delivery Me thod Nasal Cannula Oxygen Flow Rate 07/10/24 20:02 07/10/24 20:15 07/10/24 20:43 Temperature Pulse Rate 164 H 124 H Pulse Rate [Pulse Oximeter] Respiratory Rate 35 H 24 Blood Pressure 158/135 H Blood Pressure [Le ft Arm] Blood Pressure [Le ft Upper Arm] Pulse Oximetry 95 96 96 Oxygen Delivery Me thod Nasal Cannula Oxygen Flow Rate 07/10/24 21:42 07/10/24 21:42 07/10/24 23:00 Temperature 97.5 F L Pulse Rate 87 Pulse Rate [Pulse Oximeter] 83 Respiratory Rate 22 20 Blood Pressure Blood Pressure [Le ft Arm] 180/137 H Blood Pressure [Le ft Upper Arm] Pulse Oximetry 96 96 Oxygen Delivery Me thod Nasal Cannula Nasal Cannula Oxygen Flow Rate 1.0 1.0 07/10/24 23:00 07/10/24 23:20 07/11/24 04:07 Temperature 97.6 F Pulse Rate Pulse Rate [Pulse Oximeter] 78 85 Respiratory Rate 20 24 Blood Pressure Blood Pressure [Le ft Arm] 180/109 H 185/113 H Blood Pressure [Le ft Upper Arm] Pulse Oximetry 95 88 92 Oxygen Delivery Me thod Room Air Nasal Cannula Oxygen Flow Rate 1.0 07/11/24 07:00 07/11/24 10:25 07/11/24 10:27 Temperature 98.1 F Pulse Rate Pulse Rate [Pulse Oximeter] 147 H Respiratory Rate 20 24 Blood Pressure Blood Pressure [Le ft Arm] 188/124 H Blood Pressure [Le ft Upper Arm] Pulse Oximetry 92 92 90 Oxygen Delivery Me thod Room Air Room Air Oxygen Flow Rate 07/11/24 10:27 07/11/24 10:45 07/11/24 11:16 Temperature 97.8 F Pulse Rate 92 Pulse Rate [Pulse Oximeter] 81 Respiratory Rate 24 26 H Blood Pressure Blood Pressure [Le ft Arm] 184/125 H Blood Pressure [Le ft Upper Arm] Pulse Oximetry 91 Oxygen Delivery Me thod Room Air Oxygen Flow Rate Labs Labs: Laboratory Results - last 24 hr 07/10/24 07/11/24 17:22 05:52 WBC 4.26 L 4.66 RBC 4.78 4.46 Hgb 15.0 14.1 Hct 46.7 44.0 MCV 98 99 MCH 31 32 MCHC 32 32 RDW Coeff of Brock 15.0 Plt Count 173 181 Neut % (Auto) 74.4 H Lymph % (Auto) 15.5 L [place] % (Auto) 8.7 Eos % (Auto) 0.9 Baso % (Auto) 0.5 Neut # (Auto) 3.20 Lymph # (Auto) 0.70 L [place] # (Auto) 0.40 Eos # (Auto) 0.00 Baso # (Auto) 0.00 Abs Immat Gran (auto) 0.00 Imm/Tot Granulo (auto) 0.0 Sodium 140 139 Potassium 3.7 3.3 L Chloride 100 99 Carbon Dioxide 33 H 34 H Anion Gap 7 6 L BUN 17 15 Creatinine 0.7 0.7 Estimated Creat Clear 33.58 Estimated GFR 83 83 Glucose 121 H 108 Calcium 9.5 8.9 Magnesium 1.8 Total Bilirubin 1.1 Direct Bilirubin 0.4 AST 37 H ALT 27 Alkaline Phosphatase 88 Troponin I 0.01 Total Protein 7.[address] scan - chest: Attestation: I have reviewed the pertinent imaging results. Radiologist's impression: 1. Masslike consolidation in the right apex measuring 3.6 cm. A few additional scattered indeterminate pulmonary nodules. Findings may reflect multifocal infection. Recommend unenhanced chest CT in 3 months after appropriate therapy to document resolution and to assess malignant potential. 2. Cardiomegaly. Likely interstitial edema.
[2024-07-11] MEDS: carvediloL 6.25 MG TABLET 3.125 MG PO ×2 (15:51→20:42)
[2024-07-11] MEDS: INSULIN ASPART 100 UNIT/ML SUBCUT (17:25)
--- NOTE | 2024-07-11 18:46 | PC.NURSE ---
Addendum entered by Madelyn Richard RN 07/11/24 19:15: Patient blood sugars 120, 141, 243. Original Note: End of Shift: Patient pleasant and cooperative. Patient vitally stable, lungs course with inspiratory and expiratory rhonchi, BS WNL, IV SL and intact. Patient denies pain and is 1 assist/SBA walker. Patient tolerating regular diet and urinating well, no BM today. Patient tolerating regular diet. Patient has been up in chair and sitting on side of bed. Patient is now currently sundown towards the end of shift, attempting to get up from bed alone, and thinking she is at her home. Patient is only oriented to self. Bottom is excoriated, barrier cream applied. Patients HR increased to 150 about 1515 and patient reported being hot and was diaphoretic, schedule metoprolol was given and ordered additional coreg. Patient's tele=A.fib
[2024-07-11] MEDS: cefTRIAXone 1 GM in 0.9 % SODIUM CHLORIDE Mini-bag 100 ML IVPB (20:41)
[2024-07-11] MEDS: QUETIAPINE 25 MG TABLET PO (20:42)
[2024-07-11] MEDS: 0.9 % SODIUM CHLORIDE 250 ml IV (20:42)
[2024-07-11] MEDS: ENOXAPARIN 40 MG/0.4 ML INJ SUBCUT (20:42)
[2024-07-12] VITALS (9 sets, daily range): BP systolic 142–188; BP diastolic 97–141; PULSE 76–107; RESP 18–20; TEMP 36.5–37.1; O2SAT 91–100
[2024-07-12 02:49] LABS: Appearance Urine Cloudy (Clear); Bilirubin Urine 1+ (Negative); Blood Urine 1+ (Negative); Color Urine Yellow (Yellow); Glucose Urine Negative (Negative); Ketones Urine Trace (Negative); Leukocyte Esterase Urine Trace (Negative); Nitrite Urine Negative (Negative); Protein Urine 2+ (Negative); Specific Gravity Urine 1.025 (1.000-1.030); pH Urine 5.5 (5.0-8.5)
[2024-07-12 02:55] LABS: Bacteria Urine Moderate; Squamous Epithelial Cell Urine Moderate (None-Few)
[2024-07-12 02:56] LABS: Amorphous Sediment Urine Few
--- NOTE | 2024-07-12 05:26 | PC.NURSE ---
Addendum entered by Lexie Hodgson RN 07/12/24 06:48: Pt saccral area reddened and excoriated. Not open areas noted. Pt stated mild discomfort. Staff cleaned area and applied barrier cream. Original Note: Pt alert, oriented to self and vitally stable. Pt impulsive, alarms in use. 1a FWW and gait belt. O2 sats above 90 throughout shift, though, dropped to mid 80s when asleep, prn O2 utilized (1-3 L), though titrated to room air quickly. Lung sounds crackled and coarse throughout, cough present with minimal secretions. UA collected. HR 90s-100 throughout shift, tele read afib with nvr. Pt in bed, appears to be resting, call light within reach.
[2024-07-12 06:54] LABS: Chloride* 98 mmol/L (96-114); Sodium* 137 mmol/L (135-149)
[2024-07-12 06:55] LABS: Potassium* 3.6 mmol/L (3.6-5.1)
[2024-07-12 06:56] LABS: Hematocrit 44.8 % (33.0-51.0); Hemoglobin* 14.3 gm/dL (12.0-16.0); Mean Corpuscular HGB Conc 32 gm/dL (32-36); Mean Corpuscular Hemoglobin 32 pg (26-34); Mean Corpuscular Volume 99 fL (80-100); Platelet Count* 175 K/uL (140-440); Red Blood Count 4.53 m/uL (4.00-5.20); White Blood Count* 5.86 K/uL (4.50-11.00)
[2024-07-12 06:57] LABS: Blood Urea Nitrogen* 27 mg/dL (7-30); Creatinine* 0.8 mg/dL (0.5-1.5); Est. Creatinine Clearance* 33.58; Estimated Glomerular Filt Rate 71 ml/min
[2024-07-12 06:58] LABS: Anion Gap 6 mEq/L (7-15); Calcium* 8.8 mg/dL (8.4-10.6); Carbon Dioxide* 33 mmol/L (20-32); Glucose* 162 mg/dL (60-115)
[2024-07-12 07:08] LABS: Slide Review Reflex No
[2024-07-12] MEDS: DONEPEZIL 10 MG TABLET PO (08:46)
[2024-07-12] MEDS: hydroCHLOROthiazide 25 MG TABLET PO (08:46)
[2024-07-12] MEDS: carvediloL 6.25 MG TABLET 3.125 MG PO (08:46)
[2024-07-12] MEDS: DOXYCYCLINE HYCLATE 100 MG PO ×2 (08:46→21:04)
[2024-07-12] MEDS: oxyBUTYnin chloride 5 MG TAB.ER.24 10 MG PO (08:46)
[2024-07-12] MEDS: ASPIRIN 81 MG TABLET EC PO (08:46)
[2024-07-12] MEDS: FLUOXETINE HCL 10 MG CAPSULE PO (08:46)
--- NOTE | 2024-07-12 09:53 | PM.IMPN1 ---
Assessment and Plan Assessment and plan (1) Falls: Problem comment: Frequent falls Facial trauma Records from her PCP shows that she is on PT OT for her frequent falls PT/OT consults Awaiting UC Status: Acute (2) Pneumonia: Problem comment: CT shows Masslike consolidation in the right apex measuring 3.6 cm. A few additional scattered indeterminate pulmonary nodules. Findings may reflect multifocal infection CXR on 07/03/2024 shows a 3.6 cm right upper lobe lung mass No leukocytosis, afebrile Has been started on ceftriaxone and doxycycline - consider short course and outpatient imaging for follow-up Status: Acute (3) Respiratory syncytial virus (RSV): Problem comment: Patient tested positive for RSV on July 03 PT/OT for weakness/falls Status: Acute (4) Lung mass: Problem comment: - CT chest: Masslike consolidation in the right apex measuring 3.6 cm. A few additional scattered indeterminate pulmonary nodules. Findings may reflect multifocal infection. Recommend unenhanced chest CT in 3 months after appropriate therapy to document resolution and to assess malignant potential. Discussed with the daughter the need for follow-up and the possibility of malignancy. Status: Acute (5) COPD (chronic obstructive pulmonary disease): Problem comment: Currently on room air Continue inhalers On antibiotic as above Status: Acute (6) Afib: Problem comment: Atrial fibrillation, not on anticoagulation, daughter mentioned that her PCP discussed with her the chance of stroke per year. She does have high risk of fall, and that they discussed risk of stroke versus risk of bleeding with fall, the daughter would prefer at this point to not anticoagulate. PCP continue aspirin 81 mg, follow-up cardiology. Status: Acute (7) Living in assisted living: Problem comment: [phone] [facility] -07/11/2024: patient requiring increasing amount of services in still having many falls. 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 Status: Chronic (9) Type 2 diabetes mellitus: Problem comment: Most recent A1c 6.3 Continue home glargine, glucose checks ACHS, ISS Status: Acute Plan PT/OT for therapies. event services manager for discharge planning - if able to return to current RETIREMENT with increased service versus SNF placement. Otherwise medically cleared for discharge Subjective Date Seen: 07/12/24 Interval history: Patient is seen sitting up in a chair this morning. Has no complaints. Denies headache or dizziness. Denies chest pain or shortness of breath. Has no pain this morning. Has been working with therapies. Resides in assisted living, managed by [facility], unsure of location. Name of facility unknown as patient is not sure and daughter not present Daughter states that she would be able to return to her current assisted living facility with increased services as needed. Exam Narrative: Exam Narrative: PHYSICAL EXAM General: Pleasant, conversant, NAD HEENT: Bruising, abrasions of face appeared to be healing appropriately. sclera white, EOMI, oral mucosa moist Cardiovascular: IRRR Pulmonary: CTA bilaterally, few crackles noted. No dyspnea on room air Neurological: Alert, mild confusion, cranial nerves intact, no focal findings Extremities: No gross joint deformity or swelling. AROMI. Neurovascularly intact Skin: Warm, dry. Const: Vital Signs, click to edit/add: Vital Signs - 24 hr 07/11/24 10:25 07/11/24 10:27 07/11/24 10:27 Temperature Pulse Rate 92 Pulse Rate [Pulse Oximeter] Respiratory Rate 24 Blood Pressure [Le ft Arm] Pulse Oximetry 92 90 Oxygen Delivery Me thod Room Air 07/11/24 10:45 07/11/24 11:16 07/11/24 15:05 Temperature 97.8 F Pulse Rate 107 H Pulse Rate [Pulse Oximeter] 81 Respiratory Rate 24 26 H Blood Pressure [Le ft Arm] 184/125 H Pulse Oximetry 91 Oxygen Delivery Me thod Room Air 07/11/24 15:36 07/11/24 15:42 07/11/24 15:42 Temperature 97.5 F L 98.4 F Pulse Rate Pulse Rate [Pulse Oximeter] 147 H 107 H Respiratory Rate 36 H 28 H Blood Pressure [Le ft Arm] 173/146 H 155/130 H Pulse Oximetry 91 93 93 Oxygen Delivery Me thod Room Air Room Air 07/11/24 15:42 07/11/24 15:42 07/11/24 19:00 Temperature 97.6 F Pulse Rate Pulse Rate [Pulse Oximeter] 107 H 95 Respiratory Rate 28 H 28 H 18 Blood Pressure [Le ft Arm] 132/115 H Pulse Oximetry 93 90 Oxygen Delivery Me thod Room Air Room Air 07/11/24 23:00 07/11/24 23:00 07/11/24 23:00 Temperature Pulse Rate 96 Pulse Rate [Pulse Oximeter] Respiratory Rate Blood Pressure [Le ft Arm] Pulse Oximetry 92 92 Oxygen Delivery Me thod Room Air 07/11/24 23:00 07/11/24 23:00 07/12/24 03:00 Temperature Pulse Rate Pulse Rate [Pulse Oximeter] 95 98 99 Respiratory Rate 18 18 18 Blood Pressure [Le ft Arm] Pulse Oximetry 90 100 Oxygen Delivery Me thod Room Air Room Air Labs Labs: Laboratory Results - last 24 hr 07/12/24 07/12/24 02:40 05:58 WBC 5.86 RBC 4.53 Hgb 14.3 Hct 44.8 MCV 99 MCH 32 MCHC 32 Plt Count 175 Sodium 137 Potassium 3.6 Chloride 98 Carbon Dioxide 33 H Anion Gap 6 L BUN 27 Creatinine 0.8 Estimated Creat Clear 33.58 Estimated GFR 71 Glucose 162 H Calcium 8.8 Urine Color Yellow Urine Appearance Cloudy A Urine pH 5.5 Ur Specific [place] 1.025 Urine Protein 2+ A Urine Glucose (UA) Negative Urine Ketones Trace A Urine Blood 1+ A Urine Nitrite Negative Urine Bilirubin 1+ A Urine Urobilinogen 1.0 Ur Leukocyte Esterase Trace A Urine RBC 2-5 A Urine WBC 2-5 Ur Squamous Epith Cells Moderate A Amorphous Sediment Few A Urine Bacteria Moderate A
--- NOTE | 2024-07-12 09:55 | NUTR.NU ---
RDN with diet education and positive skin risk. Patient admitted with pneumonia and COPD, found to be RSV positive. Medical history includes heart failure, Mixed vascular dementia alzheimers, and type 2 diabetes mellitus. Current weight 204lb 14.4oz; height 5ft 4in; BMI 35.2 kg/m2. Weight has been stable within the last 180 days. Patient currently resides in Assisted living where she gets 2 meals daily. Per OT note, there are options for additional services at this assisted living up to memory care. Per PT note, patient may require higher level of care at discharge. Current diet is diabetic and heart healthy. Meal intakes since admit have been adequate at 75%+. No concern for nutrition risk at this time with stable weight and adequate intakes. Patient not appropriate for diet education at this time given cognition and currently residing in assisted living with meals provided. RDN will continue to monitor and follow-up prn.
[2024-07-12] MEDS: NYSTATIN POWDER 1 APPLIC TOPICAL ×2 (10:31→21:09)
[2024-07-12] MEDS: POTASSIUM CHLORIDE 10 MEQ CAPSULE ER PO (10:31)
[2024-07-12] MEDS: SODIUM CHLORIDE 0.9 % (FLUSH) 10 ML SYRINGE 5 ML IVF ×2 (10:31→21:08)
[2024-07-12] MEDS: IRBESARTAN 150 MG TABLET PO ×2 (10:31→21:04)
[2024-07-12] MEDS: IPRAT-ALBUT 0.5-2.5 MG/3 ML NEB 1 NEB IH ×2 (11:44→18:18)
--- NOTE | 2024-07-12 13:24 | PC.SOCIAL ---
Addendum entered and electronically signed by Joy Dumont LCSW 07/12/24 15:50: NEHA received prior authorization information: [id number]. NEHA secure emailed this to Mariella at [facility]. Addendum entered and electronically signed by Joy Dumont LCSW 07/12/24 15:28: NEHA spoke with patient's daughter and updated about [facility] accepting for Friday. Daughter states she is okay with that. NEHA explained we are still waiting to hear back from [facility] and [facility] and if they have an opening sooner we can change to that facility, daughter agreeable with the plan. SW received acceptance from [facility] for Thursday 07/13. SW states that they will accept the bed for patient. SW updated patient's daughter who states that she agrees with the plan and feels she will be able to transport patient as long as [facility] has a wheelchair they can use when they get there. Daughter states she could pick patient up at 1100. NEHA asked UR, Reina, to start the Prior Auth for patient's insurance. Reina reports she will start this right away. [facility] secure emailed stating that patient doesn't have a three night stay, NEHA explained that patient has Medicare Advantage and that we are working on the prior auth and will send this to them once we have received it. NEHA completed PAS - [id number]. NEHA sent this information to [facility]. NEHA called Galina at [facility] and informed that we no longer need to hold the bed for Friday. NEHA received denial from [facility]. NEHA called patient's daughter and confirmed with her that [facility] will have a wheelchair for her. Original Note: Discharge Planning: NEHA spoke with the patient?s daughter about observation status and Medicare Coverage for TCU. NEHA explained that patient hasn?t met her three-night stay and once medically ready patient would need to either private pay for TCU or would need to return to [facility]. Daughter states that they don?t have money for private pay as they are now almost done with the process of getting patient on Medicaid and waiver services. Daughter expressed concern for her going back to [facility] without a rehab stay first as patient has fallen multiple times, and has had home health PT/OT in the past and feels that if patient goes home with that, she will end up right back in the hospital. SW explained she will see when the provider is thinking patient will be medically ready and call daughter back. ? ? SW called daughter back and apologized for giving incorrect information. SW explained that after the call SW checked patient?s insurance, she realized patient does not need a three-night stay. SW asked about what facilities SW should send referrals to. SW discussed facilities in [place], [place], [place], [place], and [place] along with their ratings. Daughter states she would like referrals sent to [facility], [place], and [place]. ? ? SW sent referrals to [facility] in [place], [facility], and [facility] in [place]. ? ? SW heard from [facility] that they can accept patient on Friday morning. SW is waiting to hear from [facility] and [facility] to determine if they can take her sooner. ?
[2024-07-12] MEDS: INSULIN ASPART 100 UNIT/ML SUBCUT ×2 (18:18→21:05)
--- NOTE | 2024-07-12 18:38 | PC.NURSE ---
End of Shift: Patient pleasant and cooperative, only oriented to self. VSS, afebrile. SpO2 maintained above 90% on RA. Denies pain this shift. Tolerating regular diet. Barrier cream applied to bottom PRN this shift. 1A with walker and gait belt.
[2024-07-12] MEDS: cefTRIAXone 1 GM in 0.9 % SODIUM CHLORIDE Mini-bag 100 ML IVPB (21:03)
[2024-07-12] MEDS: ENOXAPARIN 40 MG/0.4 ML INJ SUBCUT (21:04)
[2024-07-12] MEDS: QUETIAPINE 25 MG TABLET PO (21:04)
[2024-07-12] MEDS: carvediloL 6.25 MG TABLET PO (21:04)
[2024-07-12] MEDS: INSULIN GLARGINE,HUM.REC.ANLOG 100 UNIT/ML INSULN.PEN 10 UNIT SUBCUT (21:05)
[2024-07-13 05:15] VITALS: BP 140/101; PULSE 77; RESP 18; TEMP 36.7; O2SAT 90
--- NOTE | 2024-07-13 06:17 | PC.NURSE ---
End of Shift: Pt has been pleasant and cooperative she is alert x2 self and place. SpO2 maintained above 88-92% on RA. HOB elevated. no pain. alarms are on. she has been in the chair and in bed. she rested with eyes closed. no nausea or emesis since 2099 she got francoise james and HOB elevated. Barrier cream applied to bottom. 1A with walker and gait belt
[2024-07-13 06:33] LABS: Hemoglobin* 15.2 gm/dL (12.0-16.0); Mean Corpuscular HGB Conc 32 gm/dL (32-36); Mean Corpuscular Hemoglobin 31 pg (26-34); Mean Corpuscular Volume 97 fL (80-100); Platelet Count* 193 K/uL (140-440); Red Blood Count 4.84 m/uL (4.00-5.20); White Blood Count* 5.37 K/uL (4.50-11.00)
[2024-07-13 06:36] LABS: Slide Review Reflex No
[2024-07-13 06:49] LABS: Chloride* 98 mmol/L (96-114); Potassium* 3.5 mmol/L (3.6-5.1); Sodium* 139 mmol/L (135-149)
[2024-07-13 06:52] LABS: Anion Gap 6 mEq/L (7-15); Blood Urea Nitrogen* 27 mg/dL (7-30); Calcium* 9.1 mg/dL (8.4-10.6); Carbon Dioxide* 35 mmol/L (20-32); Creatinine* 0.9 mg/dL (0.5-1.5); Est. Creatinine Clearance* 33.58; Estimated Glomerular Filt Rate 61 ml/min; Glucose* 74 mg/dL (60-115)
[2024-07-13 07:00] VITALS: BP 123/89; PULSE 79; PULSE 96; RESP 18; TEMP 36.7; O2SAT 90
[2024-07-13] MEDS: oxyBUTYnin chloride 5 MG TAB.ER.24 10 MG PO (09:30)
[2024-07-13] MEDS: DONEPEZIL 10 MG TABLET PO (09:30)
[2024-07-13] MEDS: POTASSIUM CHLORIDE 10 MEQ CAPSULE ER PO (09:30)
[2024-07-13] MEDS: carvediloL 6.25 MG TABLET PO (09:30)
[2024-07-13] MEDS: hydroCHLOROthiazide 25 MG TABLET PO (09:30)
[2024-07-13] MEDS: DOXYCYCLINE HYCLATE 100 MG PO (09:30)
[2024-07-13] MEDS: ASPIRIN 81 MG TABLET EC PO (09:31)
[2024-07-13] MEDS: SODIUM CHLORIDE 0.9 % (FLUSH) 10 ML SYRINGE 5 ML IVF (09:31)
[2024-07-13] MEDS: NYSTATIN POWDER 1 APPLIC TOPICAL (09:31)
[2024-07-13] MEDS: FLUOXETINE HCL 10 MG CAPSULE PO (09:31)
[2024-07-13] MEDS: IRBESARTAN 150 MG TABLET PO (09:35)
--- NOTE | 2024-07-13 10:27 | PC.SOCIAL ---
Discharge planning: NEHA sent doctor orders, nurse to nurse number, and PAS again to Mariella at [facility].
--- NOTE | 2024-07-13 12:59 | PC.NURSE ---
Discharge: Patient pleasant and cooperative, A&O to self only. VSS, afebrile. SpO2 maintained above 90% on RA. IV removed with tip intact. Discharged to [facility] via wheelchair.
--- NOTE | 2024-07-13 13:13 | PM.DS1 ---
DS: Providers Provider Date Seen: 07/13/24 Date of admission: 07/12/24 08:15 Primary care physician: Not a Local Provider Admitting Clinician: Meaghan Russ MD Consults: 07/10/24 20:43 Consult to Occupational Therapy [CONS] Routine Comment: Reason(s) for OT Consult:: Evaluate and Treat Any Restrictions?:: No Restrictions Consult to Physical Therapy [CONS] Routine Comment: Reason(s) for PT Consult:: Evaluate and Treat Any Restrictions?:: No Restrictions Consult to [employer] [CONS] Routine Comment: Reason for Consult:: Discharge Planning Needs Attending Physician on discharge: Mel Locke MD Date of Discharge: 07/13/24 DS: Diagnosis Discharge Diagnosis (1) Pneumonia: Status: Acute Problem details: -s/p 1 dose ertapenem, 3 doses of ceftriaxone plus oral doxy. doxy continued at discharge for additional 7 days -No leukocytosis, afebrile -MRSA negative -On room air at discharge -CT shows mass-like consolidation in the right apex measuring 3.6 cm. pneumonia but need to r/o postobstructive malignancy - 3 month f/u CT necessary (2) Respiratory syncytial virus (RSV): Status: Acute Problem details: Patient tested positive for RSV on July 03 PT/OT for weakness/falls Continued supportive care and transitioned to TCU on 07/13/24 (3) Lung mass: Status: Acute Problem details: CT chest 07/10/24: Masslike consolidation in the right apex measuring 3.6 cm. -3 month (October 2024) f/u scan recommended. PCP to order. Discussed with the daughter the need for follow-up and the possibility of malignancy. 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 -Donepezil 10mg daily, quetiapine 25mg qhs -fluoxetine 10mg daily (6) Afib: Status: Acute Problem details: Atrial fibrillation, not on anticoagulation, daughter mentioned that her PCP discussed with her the chance of stroke per year. She does have high risk of fall, and that they discussed risk of stroke versus risk of bleeding with fall, the daughter would prefer at this point to not anticoagulate. PCP continue aspirin 81 mg, follow-up cardiology. (7) Type 2 diabetes mellitus: Status: Acute Problem details: Most recent A1c 6.3 Continue home glargine, glucose checks ACHS, ISS (8) COPD (chronic obstructive pulmonary disease): Status: Acute Problem details: Currently on room air Continue inhalers On antibiotic as above (9) Iron deficiency anemia: Status: Acute Problem details: Recommend colonoscopy March 2023 declined colonoscopy EGD 05/07/23 daughter present and agree (10) Hearing loss: Status: Acute (11) Hyperlipidemia: Status: Acute Problem details: -does not tolerate statin -takes coenzyme Q10 (12) Obstructive sleep apnea syndrome: Status: Acute Problem details: History of smoking (13) Hypertension: Status: Acute Problem details: -carvedilol 6.25mg bid -hctz 25mg daily -irbesartan 150mg BID -potassium replacement (14) Depression: Status: Acute Problem details: -fluoxetine continued (15) Living in assisted living: Status: Acute Problem details: [phone] [facility] -07/11/2024: patient requiring increasing amount of services in still having many falls. Daughter, Mirela, believes her mother at least for a short period of times requires care home services such as a transitional care placement May be able to get increased services at her current facility - social scientist assisting with discharge planning DS: Summary Hospital Course Hospital Course: FINAL DIAGNOSIS/FOLLOW UP ISSUES: 1. RSV/community-acquired pneumonia - she needs to finish doxycycline. She needs a follow-up CT in October of 2024 2. Frequent falls - continue OT and PT at the TCU. 3. Dementia -continuing cares and current medications 4. Atrial fibrillation. The decision to not anticoagulate was already made prior to admission. This makes sense given her frail 81 and frequent falls. We added carvedilol for better rate control. BRIEF HOSPITAL COURSE: Patient was admitted for 4 days. Synopsis of acute inpatient issues are outlined above. Chronic medical conditions with notable findings outlined above. The RSV was known prior to admission but her weakness was getting worse. She was diagnosed with a right upper lobe pneumonia. This has a masslike appearance and is possibly a postobstructive pneumonia. We treated her with 1 dose of IV ertapenem, IV ceftriaxone and oral doxycycline. Her oral doxycycline was continued at discharge for an additional 7 days. Her blood cultures were negative at discharge and her urine culture was negative. We had weaned her oxygen to room air. No leukocytosis throughout this hospitalization. Ongoing work for her frequent falls and weakness can be completed at a transitional care stay. DISCHARGE MEDICATIONS: See Reconciled list - SIGNIFICANT CHANGES: short term doxy we started carvedilol for improved rate control of her AFib Specific instructions to the patient and follow-up are outlined below. REVIEW OF SYSTEMS No new chest pain or dyspnea Pain controlled No voiding difficulties Tolerating diet challenge PHYSICAL EXAM: CONSTITUTIONAL: Pleasant. No air hunger. GENERAL: Well-developed and above ideal body weight, in no respiratory distress. VITAL SIGNS: see record. HEENT: Sclerae are anicteric. No petechiae. CARDIAC: rhythm irregular.. There is no S3 or rub. No harsh murmurs. Extremities show trace edema with symmetrical pulses. PULM: good air entry with no wheeze. NEURO: Speech is fluent. A brief neurologic exam is negative. SKIN: No rashes, petechiae, concerning changes PSYCHIATRIC: Euthymic. DISPOSITION: TCU stay at [address] [place] [address] Time spent on discharge 37 minutes. Status at Discharge Functional status at discharge: uses cane/walker Overall status at discharge: patient is progressing back to baseline Time Spent with Patient Time attestation: Total time spent providing and/or coordinating discharge services: Time spent: Greater than 30 minutes Exam Const: Vital Signs, click to edit/add: Vital Signs - 24 hr 07/12/24 15:00 07/12/24 15:00 07/12/24 15:00 Temperature 98.2 F Pulse Rate Pulse Rate [Pulse Oximeter] 104 H Respiratory Rate 18 18 Blood Pressure [Le ft Arm] 188/141 H Pulse Oximetry 91 91 91 Oxygen Delivery Me thod Room Air Room Air Oxygen Flow Rate 07/12/24 15:00 07/12/24 15:00 07/12/24 19:00 Temperature 98.0 F Pulse Rate 107 H Pulse Rate [Pulse Oximeter] 104 H 100 Respiratory Rate 18 18 Blood Pressure [Le ft Arm] 156/117 H Pulse Oximetry 91 Oxygen Delivery Me thod Room Air Oxygen Flow Rate 1.0 07/12/24 23:12 07/12/24 23:13 07/12/24 23:13 Temperature Pulse Rate 96 Pulse Rate [Pulse Oximeter] Respiratory Rate 18 Blood Pressure [Le ft Arm] Pulse Oximetry 91 91 Oxygen Delivery Me thod Room Air Oxygen Flow Rate 1.0 07/12/24 23:13 07/12/24 23:15 07/13/24 05:15 Temperature 98.6 F 98.0 F Pulse Rate Pulse Rate [Pulse Oximeter] 76 76 77 Respiratory Rate 18 18 18 Blood Pressure [Le ft Arm] 142/97 H 140/101 H Pulse Oximetry 91 90 Oxygen Delivery Me thod Room Air Room Air Oxygen Flow Rate 07/13/24 07:00 07/13/24 07:00 07/13/24 07:00 Temperature 98.1 F Pulse Rate Pulse Rate [Pulse Oximeter] 79 Respiratory Rate 18 18 Blood Pressure [Le ft Arm] 123/89 Pulse Oximetry 90 90 90 Oxygen Delivery Me thod Room Air Room Air Oxygen Flow Rate 07/13/24 07:00 07/13/24 07:00 Temperature Pulse Rate 96 Pulse Rate [Pulse Oximeter] 79 Respiratory Rate 18 Blood Pressure [Le ft Arm] Pulse Oximetry Oxygen Delivery Me thod Oxygen Flow Rate DS: Data Data Completed and Pending Labs on day of discharge: Labs from last 24 hours 07/13/24 06:03 WBC 5.37 RBC 4.84 Hgb 15.2 Hct 47.0 MCV 97 MCH 31 MCHC 32 Plt Count 193 Sodium 139 Potassium 3.5 L Chloride 98 Carbon Dioxide 35 H Anion Gap 6 L BUN 27 Creatinine 0.9 Estimated Creat Clear 33.58 Estimated GFR 61 Glucose 74 Calcium 9.1 Preliminary micro results at discharge 07/12/24 02:40 Urine Culture - Preliminary Urine Random <10,000 COL/ML GRAM POSITIVE TRINY Discharge Plan Discharge Disposition: [facility] Date of Admission: 07/12/24 08:15 Attending Provider on Discharge: Mel Locke Primary Care Provider: Provider,Not a Local Condition: Guarded Discharge Medications: New doxycycline hyclate 100 mg Tablet 100 mg PO BID Qty: 14 0RF carvedilol 6.25 mg Tablet 6.25 mg PO BID Qty: 60 0RF Continued Trelegy Ellipta 200-62.5-25 mcg blister with device 1 inh inhalation Q24H Qty: 60 2RF cholecalciferol (vitamin D3) 25 mcg (1,000 unit) capsule 25 mcg PO DAILY calcium carbonate 500 mg calcium (1,250 mg) tablet,chewable 500 mg PO DAILY coenzyme Q10 300 mg capsule 300 mg PO DAILY albuterol sulfate 90 mcg/actuation HFA aerosol inhaler See Rx Instructions .ROUTE .COMPLEX PRN Dose Instruction: INHALE 2 PUFFS BY MOUTH EVERY 4 HOURS NEEDED FOR WHEEZING AND DIFFICULT BREATHING Rx Instructions: INHALE 2 PUFFS BY MOUTH EVERY 4 HOURS NEEDED FOR WHEEZING AND DIFFICULT BREATHING PRN; donepezil 10 mg tablet 10 mg PO DAILY irbesartan 150 mg tablet 150 mg PO BID quetiapine 25 mg tablet 25 mg PO HS oxybutynin chloride 10 mg tablet extended release 24hr 10 mg PO DAILY fluoxetine 10 mg capsule 10 mg PO DAILY potassium chloride 10 mEq tablet,ER particles/crystals 10 meq PO DAILY insulin glargine [Lantus Solostar U-100 Insulin] 100 unit/mL (3 mL) insulin pen 10 unit subcut HS Rx Instructions: 10 units once nightly hydrochlorothiazide 25 mg tablet 25 mg PO QAM Qty: 90 3RF acetaminophen 500 mg capsule 1,000 mg PO Q4-6H MDD 3000 mg PRN (Reason: pain) Qty: 30 3RF (DME) Contour Next Test Strips Strip See Rx Instructions .Route Qty: 100 3RF Rx Instructions: Use to test blood glucose daily Discharge Orders: Discharge Order (Routine); Ordered 07/13/24 Ordered By: Mel Locke Additional Instructions: Chest CT scan is recommended in first part of October to look at the consolidated pneumonia in the upper right lung. We would to ensure it is completely resolved. Please discuss with PCP regarding this order and scheduling this exam at the [facility]. Antibiotics for one week (oral) twice daily. Activity Level: Light activity Discharge Diet: Regular Follow Up Appointments: Provider,Not a Local [Primary Care Provider] - (we will let [facility] set this up depending on her discharge plan) [facility] Instructions Admit to: SNF Discharge Potential: Fair Length of Stay: <30 days Can use facility standing orders?: Yes Code Status: DNR/DNI TEDs: N/A Rehab Potential: Fair Therapy: Physical Therapy and Occupational Therapy Therapy Orders: Evaluate and Treat Oxygen: No Urinary Catheter: No Orders are good >30 days: Yes
== END 2024-07-13 11:02 | DRG 194 ==
LOC: ED 20:25 → MEDSURG 20:29
PROVIDERS: Internal Medicine; Admitting Provider Student in an Organized Health Care Education/Training Program; Emergency Provider Family Medicine; Visit Provider Family Medicine
DX: J18.9 Pneumonia, unspecified organism (principal); I50.22 Chronic systolic (congestive) heart failure; B97.4 Respiratory syncytial virus as the cause of diseases classified elsewhere; R91.8 Other nonspecific abnormal finding of lung field; R29.6 Repeated falls; I48.91 Unspecified atrial fibrillation; Z79.82 Long term (current) use of aspirin; F01.50 Vascular dementia, unspecified severity, without behavioral disturbance, psychotic disturbance, mood disturbance, and anxiety; E11.9 Type 2 diabetes mellitus without complications; Z86.73 Personal history of transient ischemic attack (TIA), and cerebral infarction without residual deficits; G47.33 Obstructive sleep apnea (adult) (pediatric); J44.9 Chronic obstructive pulmonary disease, unspecified; Z87.891 Personal history of nicotine dependence; I11.0 Hypertensive heart disease with heart failure; E78.5 Hyperlipidemia, unspecified; D50.9 Iron deficiency anemia, unspecified; S00.83XA Contusion of other part of head, initial encounter; W07.XXXA Fall from chair, initial encounter; Z91.81 History of falling; Y92.099 Unspecified place in other non-institutional residence as the place of occurrence of the external cause; F32.A Depression, unspecified; Z79.4 Long term (current) use of insulin
CPT/HCPCS: 36415; 70450; 71260; 72125; 80048; 80076; 81001; 82962; 83735; 84484; 85025; 85027; 87081; 87086; 93005; 94761; 97110; 97116; 97161; 97165; 97535; 99284; 99285; A9270; G0378; J0696; J1335; J1650; J1815; J7050; Q9967

== ENCOUNTER 2024-09-04 06:20 | Inpatient (IN) | payer MEDICARE, SELFPAY ==
--- OUTSIDE RECORDS SUMMARY | 2024-06-25 02:18 | XMS_ITS | CCD ---
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 Name Role Phone Teresa Vivas Primary Care Provider Un available Unavailable Chronic Care Management Unavaila ble Summary Purpose DataExchange Insurance Providers Payer name Policy type / Coverage type Covered republican ID Effective Begin Date Effective End Date [employer] [place] HMO Medicare Risk [id number] Unknown Un known Family history Mother Diagnosis Age At Onset Stroke Unknown Social History Social History Element Codes Description Effec tive Dates Marital status Unknown 04/13/2024 Marital status Unknown 04/13/2024 Living arrangements Unknown Assisted Living 04/[address]: 9794934 Former smoker 04/[address]: 0666060 Former smoker 04/[address]: 556415681 No Alcohol Consum ption 04/13/[address]: 380323 Currently [place] alcohol 04/13/2024 Sexually Active? Unknown No 04/13/2024 Children Unknown Has Children 04/13/2024 Caregiver Assessment Unknown No [facility] POA on file 04/13/2024 Patient Health Status Self Assessment Unknown Excellent 04/13/2024 Oral health Unknown Has not seen Den tist in the last 12 months 04/13/2024 Do you worry about access to food? Unknown No 04/13/2024 Seatbelt safety Unknown Wears seatbelt 04/13/2024 Illicit Drug History Unknown Has never u sed illegal drugs 04/13/2024 Do you feel safe in your home? Unknown Yes 04/13/2024 Living arrangements Unknown Assisted Living 04/12 Children Unknown Has Children 04/12/2024 Caregiver Assessment Unknown No [facility] POA on file 04/12/2024 Allergies, Adverse Reactions, Alerts Substance Reaction Codes Entered Date Inactivated Date Status Metoprolol Unknown 04/13/2024 No Inactive Date A ctive SIMVASTATIN RxNorm: 07854 04/13/2024 No Inactive D ate Active Penicillin Unknown 04/13/2024 No Inactive Date A ctive CLOPIDOGREL Unknown 03/23/2024 No Inactive Date Active naproxen RxNorm: 7258 04/13/2024 No Inactive Date Active levofloxacin RxNorm: 91008 03/23/2024 No Inactive Date Active Levemir Unknown 03/23/2024 No Inactive Date Ac tive metformin RxNorm: 221798 04/13/2024 No Inactive Da te Active ESTROGENS Unknown 03/23/2024 No Inactive Date Ac tive Atenolol RxNorm: 1202 04/13/2024 No Inactive Date Active metoprolol succinate RxNorm: 351192 03/23/2024 No Inactive Date Active Januvia RxNorm: 765514 04/13/2024 No Inactive Da te Active furosemide RxNorm: 4603 03/23/2024 No Inactive Balaji e Active azithromycin RxNorm: 26916 04/13/2024 No Inactive Date Active losartan RxNorm: 932317 04/13/2024 No Inactive Da te Active NSAIDS Unknown 03/23/2024 No Inactive Date Ac tive Amlodipine RxNorm: 432823 04/13/2024 No Inactive D ate Active LISINOPRIL RxNorm: 50903 04/13/2024 No Inactive Da te Active PIOGLITAZONE DERIVATIVES Unknown 04/13/2024 No I nactive Date Active Problems Condition Codes Effective Dates Condition [facility] at[facility] ACP (advance care planning) SNOMED CT: 3 07923688 ICD-10: Z71.89 ICD-9: V65.49 06/01/2024 Active Acute cystitis without hematuria SNOMED CT: 93097146 ICD-10: N30.00 ICD-9: 595.0 06/01/2024 Active Adult general medical exam SNOMED CT: 30 3848920 ICD-10: Z00.00 ICD-9: V70.9 06/01/2024 Active Atherosclerosis of coronary artery of [place] heart without angina pectoris, unspecified vessel or lesion type ICD-10: I25.10 ICD-9: 414.01 06/01/2024 Active Atrial fibrillation, unspecified type ICD-10: I48.91 ICD-9: 427.31 06/01/2024 Active Chronic heart failure with preserved ejection fraction ICD-10: I50.32 ICD-9: 428.9 06/01/2024 Active Chronic obstructive pulmonar y disease, unspecified COPD type ICD-10: J44.9 ICD-9: 496 06/01/2024 Active 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 ICD-9: 311 06/01/[address]: 031011240 ICD-10: R54 ICD-9: 797 06/01/2024 Active Iron deficiency anemia, unspecified iron deficiency anemia type ICD-10: D50.9 ICD-9: 280.9 06/01/2024 Active 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 ICD-9: 331.0 06/01/2024 Active CAMILO (obstructive sleep apnea) ICD-10: G4 7.33 ICD-9: 327.23 06/01/2024 Active Osteopenia, unspecified location ICD-10: M85.80 ICD-9: 733.90 06/01/2024 Active Pressure injury of left buttock, stage 2 ICD-10: L89.322 ICD-9: 707.05 06/01/2024 Active Primary hypertension ICD-10: I10 ICD-9: 401.9 06/01/2024 Active Type 2 diabetes mellitus without complication, unspecified whether detention insulin use ICD-10: E11.9 ICD-9: 250.00 06/01/2024 Active Unintentional weight loss ICD-10: R63.4 ICD-9: 783.21 06/01/2024 Active Unsteady gait ICD-10: R26.81 ICD-9: 781.2 06/01/2024 Active Venous insufficiency of both lower extremities ICD-10: I87.2 ICD-9: 459.81 06/01/2024 Active Advanced care planning - to document end of life discussions Unknown 04/13/2024 Active Diabetes mellitus Type 2 Unknown 04/13/2024 Act floyd Compression fracture of L1 vertebra, sequela SNOMED CT: 842402846 ICD-10: S32.010S ICD-9: 905.1 04/13/2024 Active Dementia in other diseases classified elsewhere, unspecified severity, without behavioral disturbance, psychotic disturbance, mood disturbance, and anxiety ICD-10: F02.80 04/13/[address]: 345392779 ICD-10: K57.90 ICD-9: 562.10 04/13/2024 Active History of breast cancer SNOMED CT: 4290 69050 ICD-10: Z85.3 ICD-9: V10.3 04/13/2024 Active History of melanoma SNOMED CT: 774505799 ICD-10: Z85.820 ICD-9: V10.82 04/13/2024 Active History of TIA (transient ischemic attack) SNOMED CT: 360333093 ICD-10: Z86.73 ICD-9: V12.54 04/13/2024 Active Hyperlipidemia, unspecified hyperlipidemia type SNOMED CT: 83246277 ICD-10: E78.5 ICD-9: 272.4 04/13/2024 Active Statin intolerance SNOMED CT: 635203665 ICD-10: Z78.9 ICD-9: 995.27 04/13/2024 Active Urinary incontinence, unspecified type SNOMED CT: 904272331 ICD-10: R32 ICD-9: 788.30 04/13/2024 Active Vascular dementia, unspecifi ed severity, without behavioral disturbance, psychotic disturbance, mood disturbance, and anxiety ICD-10: F01.50 04/13/2024 Active Medications Medication Codes Instructions Start Date Stop Date Status Fill Instructions Alejandra Protect (zinc oxide) 12 % topical cream RxNorm: 698050 APPLY TO RIGHT BUTTOCK 2 TIMES DAILY;APPLY TO RIGHT BUTTOCK NEEDED WITH SOILING 06/12/19 25 026 Active albuterol sulfate HFA 90 mcg/actuation aerosol inhaler RxNorm: 5622911 Inhale 2 Puff(s) Inhalation Q4H every four hours as needed 06/01/19 25 No Stop Date Active Alejandra Protect (zinc oxide) 12 % topical cream RxNorm: 451900 cream Topical apply to right buttocks BID and PRN with soiling 06/01/19 25 025 Inactive Lantus Solostar U-100 Insulin 100 unit/mL (3 mL) subcutaneous pen RxNorm: 435595 Unit(s) Subcutaneous prime en with 2 units, then inject 8 units SQ QD at bedtime 05/18/19 25 026 Active potassium chloride ER 10 mEq tablet,extended release RxNorm: 541979 Take 1 Tablet(s) Oral QD 04/12/19 25 No Stop Date Active fluoxetine 10 mg capsule RxNorm: 754339 Take 1 Capsule(s) Oral QD 04/12/19 25 No Stop Date Active hydrochlorothiazide 25 mg tablet RxNorm: 711041 Take 1 Tablet(s) Oral QD 04/12/19 25 No Stop Date Active Oyster Shell Calcium 500 mg (as calcium carbonate 1,250 mg) tablet RxNorm: 025074 Take 1 Tablet(s) Oral QD 04/12/19 25 No Stop Date Active Co Q-10 200 mg capsule RxNorm: 344053 Capsule(s) Oral take 1 cap po daily with 100mg tab to =300mg daily 04/12/19 25 No Stop Date Active Co Q-10 100 mg capsule RxNorm: 105793 Capsule(s) Oral take 1 cap daily along with 200mg tab to =300mg daily 04/12/19 25 No Stop Date Active quetiapine 25 mg tablet RxNorm: 878949 Take 1 Tablet(s) Oral QHS every night at bedtime 04/12/19 25 No Stop Date Active Vitamin D3 25 mcg (1,000 unit) tablet RxNorm: 305647 Take 1 Tablet(s) Oral QD 04/12/19 25 No Stop Date Active acetaminophen 500 mg tablet RxNorm: 018613 Take 2 Tablet(s) Oral TID as needed 04/12/19 25 No Stop Date Active donepezil 10 mg tablet RxNorm: 705054 Take 1 Tablet(s) Oral QHS every night at bedtime 04/12/19 25 No Stop Date Active cyanocobalamin (vit B-12) 500 mcg tablet RxNorm: 331194 Take 1 Tablet(s) Oral QD 04/12/19 25 No Stop Date Active oxybutynin chloride ER 10 mg tablet,extended release 24 hr RxNorm: 227195 Take 1 Tablet(s) Oral QPM every evening 04/12/19 25 No Stop Date Active irbesartan 150 mg tablet RxNorm: 325042 Take 1 Tablet(s) Oral BID 04/12/19 25 No Stop Date Active Trelegy Ellipta 200 mcg-62.5 mcg-25 mcg powder for inhalation RxNorm: 5522120 Inhale 1 Puff(s) Inhalation every 24 hours 04/12/19 25 No Stop Date Active Vitron-C 65 mg iron-125 mg tablet,delayed release RxNorm: 7916422 Take 1 Tablet(s) Oral QOD every other day 04/12/19 25 No Stop Date Active Eliquis 5 mg tablet RxNorm: 9126573 Take 1 Tablet(s) Oral BID 04/12/19 25 025 Inactive Lantus Solostar U-100 Insulin 100 unit/mL (3 mL) subcutaneous pen RxNorm: 140697 Unit(s) Subcutaneous prime en with 2 units, then inject 10 units SQ QD at bedtime 04/12/19 25 025 Inactive Medication Administered No Medication Administered data Immunizations Vaccine Codes Dose Date Status Influenza CVX: 135 0.5 11/20/2023 Covid-19 (Adult) CVX: 312 1.0 12/31/2022 Influenza CVX: 205 1.0 11/15/2022 Influenza CVX: 205 1.0 02/12/2022 Influenza CVX: 205 1.0 03/09/2021 Zostavax CVX: 187 1.0 10/11/2019 Zoster CVX: 187 1.0 10/11/2019 Zostavax CVX: 187 1.0 12/25/2018 Zoster CVX: 187 1.0 12/25/2018 Pneumococcal CVX: 33 1.0 10/23/2016 Pneumococcal CVX: 133 1.0 05/19/2014 HepA - Adult CVX: 52 1.0 03/16/2003 Pneumococcal CVX: 33 1.0 03/10/2001 Pneumococcal CVX: 33 1.0 09/19/1997 TD CVX: 09 1.0 01/15/1995 Tetanus, Diptheria, Pertussis CVX: 09 1.0 1994 Functional Status Functional / Cognitive Codes Status Result Ef fective Dates Functional Assessment Unknown ADL - Dressing Independen t 04/13/2024 Functional Assessment Unknown ADL - Feeding Independent 04/13/2024 Functional Assessment Unknown ADL - Tolieting Independe nt 04/13/2024 Functional Assessment Unknown ADL - Bathing Needs Help 04/13/2024 Functional Assessment Unknown ADL - Grooming Independen t 04/13/2024 Functional Assessment Unknown ADL - Physical Ambulation Needs Help 04/13/2024 Functional Assessment Unknown iADL - Mod e of Transportation Dependent 04/13/2024 Functional Assessment Unknown iADL - Managing Medicatio n Dependent 04/13/2024 Functional Assessment Unknown Other: Marnie pping, Finances, Housekeeping, Dependent 04/13/2024 Reason For Visit No Reason For Visit data Instructions Comment Date Alyx resides at [facility] since about 2021. Previously lived independently in [place] . Has one daughter Maggie who is involved in healthcare. PMH: History of breast cancer and melanoma, mixed dementia, depression, CAD, HLD, history of CVA/TIA, compression fx of L1 vertebrae, urinary incontinence, hearing loss, osteopeniaPrimary contact: Maggie Gallegos (Daughter)Code Status: DNR/SelectLab Schedule: Mar/SepSpecialists: [facility] (Q6M), Cardiology [facility] ([facility]) 06/11/2024
--- OUTSIDE RECORDS SUMMARY | 2024-06-25 02:18 | XMS_ITS | CCD ---
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 Name Role Phone Teresa Vivas Primary Care Provider Un available Unavailable Chronic Care Management Unavaila ble Summary Purpose DataExchange Insurance Providers Payer name Policy type / Coverage type Covered democrat ID Effective Begin Date Effective End Date BCBS of [facility] Medicare Risk [id number] Unknown Un known Family history Mother Diagnosis Age At Onset Stroke Unknown Social History Social History Element Codes Description Effec tive Dates Marital status Unknown 04/13/2024 Marital status Unknown 04/13/2024 Living arrangements Unknown Assisted Living 04/[address]: 7017867 Former smoker 04/[address]: 7630921 Former smoker 04/[address]: 897793775 No Alcohol Consum ption 04/13/[address]: 356966 Currently drin ks alcohol 04/13/2024 Sexually Active? [...] No Inactive Date A ctive SIMVASTATIN RxNorm: 16943 04/13/2024 No Inactive D ate Active Penicillin Unknown 04/13/2024 No Inactive Date A ctive CLOPIDOGREL Unknown 03/23/2024 No Inactive Date Active naproxen RxNorm: 7258 04/13/2024 No Inactive Date Active levofloxacin RxNorm: 12137 03/23/2024 No Inactive Date Active Levemir Unknown 03/23/2024 No Inactive Date Ac tive metformin RxNorm: 716398 04/13/2024 No Inactive Da te Active ESTROGENS Unknown 03/23/2024 No Inactive Date Ac tive Atenolol RxNorm: 1202 04/13/2024 No Inactive Date Active metoprolol succinate RxNorm: 665454 03/23/2024 No Inactive Date Active Januvia RxNorm: 933302 04/13/2024 No Inactive Da te Active furosemide RxNorm: 4603 03/23/2024 No Inactive Balaji e Active azithromycin RxNorm: 49290 04/13/2024 No Inactive Date Active losartan RxNorm: 955612 04/13/2024 No Inactive Da te Active NSAIDS Unknown 03/23/2024 No Inactive Date Ac tive Amlodipine RxNorm: 906562 04/13/2024 No Inactive D ate Active LISINOPRIL RxNorm: 36786 04/13/2024 No Inactive Da te Active PIOGLITAZONE DERIVATIVES Unknown 04/13/2024 No I nactive Date Active Problems Condition Codes Effective Dates Condition St atus ACP (advance care planning) SNOMED CT: 3 72712263 ICD-10: Z71.89 ICD-9: V65.49 06/01/2024 Active Acute cystitis without hematuria SNOMED CT: 58589725 ICD-10: N30.00 ICD-9: 595.0 06/01/2024 Active Adult general medical exam SNOMED CT: 30 7605503 ICD-10: Z00.00 ICD-9: V70.9 06/01/2024 Active Atherosclerosis of coronary artery of [place] heart without angina pectoris, unspecified vessel or [...] ICD-9: 311 06/01/[address]: 796459775 ICD-10: R54 ICD-9: 797 06/01/2024 Active Iron [...] 2 diabetes mellitus without complication, unspecified whether half-way insulin use ICD-10: E11.9 ICD-9: 250.00 06/01/2024 [...] fracture of L1 vertebra, sequela SNOMED CT: 254371533 ICD-10: S32.010S ICD-9: 905.1 04/13/2024 Active Dementia in other diseases classified elsewhere, unspecified severity, without behavioral disturbance, psychotic disturbance, mood disturbance, and anxiety ICD-10: F02.80 04/13/[address]: 214810800 ICD-10: K57.90 ICD-9: 562.10 04/13/2024 Active History of breast cancer SNOMED CT: 4290 57066 ICD-10: Z85.3 ICD-9: V10.3 04/13/2024 Active History of melanoma SNOMED CT: 783852358 ICD-10: Z85.820 ICD-9: V10.82 04/13/2024 Active History of TIA (transient ischemic attack) SNOMED CT: 523783028 ICD-10: Z86.73 ICD-9: V12.54 04/13/2024 Active Hyperlipidemia, unspecified hyperlipidemia type SNOMED CT: 95663070 ICD-10: E78.5 ICD-9: 272.4 04/13/2024 Active Statin intolerance SNOMED CT: 679405047 ICD-10: Z78.9 ICD-9: 995.27 04/13/2024 Active Urinary incontinence, unspecified type SNOMED CT: 135214845 ICD-10: R32 ICD-9: 788.30 04/13/2024 Active Vascular dementia, unspecifi ed severity, without behavioral disturbance, psychotic disturbance, mood disturbance, and anxiety ICD-10: F01.50 04/13/2024 Active Medications Medication Codes Instructions Start Date Stop Date Status Fill Instructions albuterol sulfate HFA 90 mcg/actuation aerosol inhaler RxNorm: 5863324 Inhale 2 Puff(s) Inhalation Q4H every four hours as needed 06/01/19 25 No Stop Date Active Alejandra Protect (zinc oxide) 12 % topical cream RxNorm: 949142 cream Topical apply to right buttocks BID and PRN with soiling 06/01/19 25 025 Inactive Lantus Solostar U-100 Insulin 100 unit/mL (3 mL) subcutaneous pen RxNorm: 616863 Unit(s) Subcutaneous prime en with 2 units, then inject 8 units SQ QD at bedtime 05/18/19 25 026 Active potassium chloride ER 10 mEq tablet,extended release RxNorm: 194600 Take 1 Tablet(s) Oral QD 04/12/19 25 No Stop Date Active fluoxetine 10 mg capsule RxNorm: 728129 Take 1 Capsule(s) Oral QD 04/12/19 25 No Stop Date Active hydrochlorothiazide 25 mg tablet RxNorm: 374200 Take 1 Tablet(s) Oral QD 04/12/19 25 No Stop Date Active Oyster Shell Calcium 500 mg (as calcium carbonate 1,250 mg) tablet RxNorm: 297738 Take 1 Tablet(s) Oral QD 04/12/19 25 No Stop Date Active Co Q-10 200 mg capsule RxNorm: 118529 Capsule(s) Oral take 1 cap po daily with 100mg tab to =300mg daily 04/12/19 25 No Stop Date Active Co Q-10 100 mg capsule RxNorm: 489134 Capsule(s) Oral take 1 cap daily along with 200mg tab to =300mg daily 04/12/19 25 No Stop Date Active quetiapine 25 mg tablet RxNorm: 516144 Take 1 Tablet(s) Oral QHS every night at bedtime 04/12/19 25 No Stop Date Active Vitamin D3 25 mcg (1,000 unit) tablet RxNorm: 902404 Take 1 Tablet(s) Oral QD 04/12/19 25 No Stop Date Active acetaminophen 500 mg tablet RxNorm: 708247 Take 2 Tablet(s) Oral TID as needed 04/12/19 25 No Stop Date Active donepezil 10 mg tablet RxNorm: 990795 Take 1 Tablet(s) Oral QHS every night at bedtime 04/12/19 25 No Stop Date Active cyanocobalamin (vit B-12) 500 mcg tablet RxNorm: 020339 Take 1 Tablet(s) Oral QD 04/12/19 25 No Stop Date Active oxybutynin chloride ER 10 mg tablet,extended release 24 hr RxNorm: 655883 Take 1 Tablet(s) Oral QPM every evening 04/12/19 25 No Stop Date Active irbesartan 150 mg tablet RxNorm: 055032 Take 1 Tablet(s) Oral BID 04/12/19 25 No Stop Date Active Trelegy Ellipta 200 mcg-62.5 mcg-25 mcg powder for inhalation RxNorm: 9548229 Inhale 1 Puff(s) Inhalation every 24 hours 04/12/19 25 No Stop Date Active Vitron-C 65 mg iron-125 mg tablet,delayed release RxNorm: 3864249 Take 1 Tablet(s) Oral QOD every other day 04/12/19 25 No Stop Date Active Eliquis 5 mg tablet RxNorm: 2482488 Take 1 Tablet(s) Oral BID 04/12/19 25 025 Inactive Lantus Solostar U-100 Insulin 100 unit/mL (3 mL) subcutaneous pen RxNorm: 028003 Unit(s) Subcutaneous prime en with 2 units, [...] Tetanus, Diptheria, Pertussis CVX: 09 1.0 1994 Results Observation Observation Code Item Item Code Result Date Service Location CBC with Platelets [id number] WBC COUNT (AUTOMATED) 4.1 10e3/uL 06/05/19 25 Unknown CBC with Platelets CMX237 RBC COUNT 789-8 4.37 10e6/uL 06/05/19 25 Unknown CBC with Platelets SCC682 Hemoglobin 718-7 13.5 g/dL 06/05/19 25 Unknown CBC with Platelets YQX833 Hematocrit 4544-3 42.8 % 06/05/19 25 Unknown CBC with Platelets [id number] MCV 787-2 98 fL 06/05/19 25 Unknown CBC with Platelets PKS140 MCH 30.9 pg 06/05/19 25 Unknown CBC with Platelets USS228 MCHC 31.5 g/dL 06/05/19 25 Unknown CBC with Platelets ZPX309 RDW 16.5 % 06/05/19 25 Unknown CBC with Platelets ZKH676 Platelet Count 777-3 181 10e3/uL 06/05/19 25 Unknown Hemoglobin A1c LAB90 EST AVERAGE GLUCOSE 151 mg/dL 06/05/19 25 Unknown Hemoglobin A1c LAB90 Hemoglobin A1c 59390-3 6.9 % 06/05/19 25 Unknown Glucose IKJ6070 Sodium 140 mmol/L 06/05/19 25 Unknown Glucose QSQ1067 POTASSIUM (XU) 2823-3 3.5 mmol/L 06/05/19 25 Unknown Glucose ZNS4716 CHLORIDE (XU) 100 mmol/L 06/05/19 25 Unknown Glucose XQE7342 CO2 (XU) 28 mmol/L 06/05/19 25 Unknown Glucose MGG9365 ANION GAP (XU) 12 mmol/L 06/05/19 25 Unknown Glucose SNC1818 UREA NITROGEN (XU) 13.7 mg/dL 06/05/19 25 Unknown Glucose ZCZ0877 Creatinine 0.75 mg/dL 06/05/19 25 Unknown Glucose DRP2722 GFR, ESTIMATE 54716-7 76 mL/min/1.7 3m2 06/05/19 25 Unknown Glucose GDG6334 Calcium 9.3 mg/dL 06/05/19 25 Unknown Basic Metabolic Panel [id number] POTASSIUM (XU) 2823-3 3.5 mmol/L 06/05/19 25 Unknown Basic Metabolic Panel XGC2059 CHLORIDE (XU) 100 mmol/L 06/05/19 25 Unknown Basic Metabolic Panel XSW1425 CO2 (XU) 28 mmol/L 06/05/19 25 Unknown Basic Metabolic Panel [id number] Calcium 9.3 mg/dL 06/05/19 25 Unknown Basic Metabolic Panel VLS1378 ANION GAP (XU) 12 mmol/L 06/05/19 25 Unknown Basic Metabolic Panel QUQ1199 Creatinine 0.75 mg/dL 06/05/19 25 Unknown Basic Metabolic Panel ADC7012 GLUCOSE (XU) 2345-7 79 mg/dL 06/05/19 25 Unknown Basic Metabolic Panel SVX6459 Sodium 140 mmol/L 06/05/19 25 Unknown Basic Metabolic Panel [id number] UREA NITROGEN (XU) 13.7 mg/dL 06/05/19 Unknown Basic Metabolic Panel NGT6491 GFR, ESTIMATE 85425-7 76 mL/min/1.7 3m2 06/05/19 Unknown PHQ9 PHQ9 51113-9 1 06/02/19 Unknown Procedures Procedure Codes Date PT INELIG NEG SCRN DEPRES SNOMED CT: 428 [id number] CPT-4: G8510 06/01/2024 Vital Signs Date Vital 06/01/2024 Blood Pressure 1: 150/90 Code: 8480-6 BMI: NaN Code: 32785-0 Heart Rate 1: 71 bpm Code: 8867-4 Respiratory Rate: 16 bpm Temperature: 36.4 (C) / 97.5 (F) Weight: 206 lbs Code: 3141-9 Functional Status Functional / Cognitive Codes Status [...] For Visit No Reason For Visit data Encounters Encounter Performer Location Location Address Codes Date (G0439) Medicare Annual Wellness Visit (AWV), Subsequent Diagnosis: Adult general medical exam[SNOMED: 492460247] Diagnosis: ACP (advance care planning)[SNOMED: 320387968] Diagnosis: Frailty[SNOMED: 168911007] Diagnosis: Atherosclerosis of coronary artery of [place] heart without angina pectoris, unspecified vessel or lesion type[ICD10: I25.10] Diagnosis: Atrial fibrillation, unspecified type[ICD10: I48.91] Diagnosis: Chronic heart failure with preserved ejection fraction[ICD10: I50.32] Diagnosis: Chronic obstructive pulmonary disease, unspecified COPD type[ICD10: J44.9] 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] Diagnosis: Iron deficiency anemia, unspecified iron deficiency anemia type[ICD10: D50.9] Diagnosis: Mixed Alzheimer and vascular dementia[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] Diagnosis: CAMILO (obstructive sleep apnea)[ICD10: G47.33] Diagnosis: Osteopenia, unspecified location[ICD10: M85.80] Diagnosis: Primary hypertension[ICD10: I10] Diagnosis: Type 2 diabetes mellitus without complication, unspecified whether terminal manager insulin use[ICD10: E11.9] Diagnosis: Unintentional weight loss[ICD10: R63.4] Diagnosis: Unsteady gait[ICD10: R26.81] Diagnosis: Venous insufficiency of both lower extremities[ICD10: I87.2] Diagnosis: Acute cystitis without hematuria[SNOMED: 01913845] Diagnosis: Pressure injury of left buttock, stage 2[ICD10: L89.322] Teresa Talbot [address] [address] CPT-4: G0439 06/01/2024 ([id number]) Home Visit - Est Pt, moderate Diagnosis: Adult general medical exam[SNOMED: 749823488] Diagnosis: ACP (advance care planning)[SNOMED: 323534128] Diagnosis: Frailty[SNOMED: 418392724] Diagnosis: Atherosclerosis of coronary artery of [place] heart without angina pectoris, unspecified vessel or lesion type[ICD10: I25.10] Diagnosis: Atrial fibrillation, unspecified type[ICD10: I48.91] Diagnosis: Chronic heart failure with preserved ejection fraction[ICD10: I50.32] Diagnosis: Chronic obstructive pulmonary disease, unspecified COPD type[ICD10: J44.9] 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] Diagnosis: Iron deficiency anemia, unspecified iron deficiency anemia type[ICD10: D50.9] Diagnosis: Mixed Alzheimer and vascular dementia[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] Diagnosis: CAMILO (obstructive sleep apnea)[ICD10: G47.33] Diagnosis: Osteopenia, unspecified location[ICD10: M85.80] Diagnosis: Primary hypertension[ICD10: I10] Diagnosis: Type 2 diabetes mellitus without complication, unspecified whether terminal manager insulin use[ICD10: E11.9] Diagnosis: Unintentional weight loss[ICD10: R63.4] Diagnosis: Unsteady gait[ICD10: R26.81] Diagnosis: Venous insufficiency of both lower extremities[ICD10: I87.2] Diagnosis: Acute cystitis without hematuria[SNOMED: 17036001] Diagnosis: Pressure injury of left buttock, stage 2[ICD10: L89.322] Teresa Talbot [facility] [address] [place] [address] CPT-4: 37154 06/01/2024 Plan of Care Planned Activity Notes Codes Status Date Patient Education: Patient Medication Summary Completed 06/01/2024 Patient Education: Influenza Complet ed 06/01/2024 Patient Education: Addiction and Substance Abuse Completed 06/01/2024 Patient Education: Alzheimer''s Disease Completed 06/01/2024 Patient Education: Dementia Complete d 06/01/2024 Patient Education: Exercise and Fitness Completed 06/01/2024 Appointment: Michela Talbot WPtel: [address] [place], [place] [phone] [employer]IST 04/13/2024 Instructions Comment Date Alyx resides at [facility] since about 2021. Previously lived independently in [place]. . Has one daughter Maggie who is involved in healthcare. PMH: History of breast cancer and melanoma, mixed dementia, depression, CAD, HLD, history of CVA/TIA, compression fx of L1 vertebrae, urinary incontinence, hearing loss, osteopeniaPrimary contact: Maggie Gallegos (Daughter)Code Status: DNR/SelectLab Schedule: Mar/SepSpecialists: [facility] (Q6M), [facility] (MD Echo) 06/11/2024 Unsteady gait Unsteady on her feet. She is supposed to use a walker which helps her balance although she often does not use this in her apartment. Depression due to dementia PHQ-9 negative although patient actively making statements today about being depressed. Managed on fluoxetine low dose daily. Consider discontinuing and starting escitalopram if mood instability worsens. Iron deficiency anemia, unspecified iron deficiency anemia type Managed on Vitron-C QOD and vitamin B12 supplement. Check CBC with platelets with routine labs today. Osteopenia, unspecified location Managed on calcium supplement. Hx of compression fracture of spine. Denies pain or recent falls. Uses walker when she remembers to. Primary hypertension BP 150/90, borderline elevated Managed on irbesartan 150mg BID and HCTZ 25mg daily. Consider increasing HCTZ and/or starting on amlodipine given borderline elevation. Could also consider discontinuing oxybutynin as this can cause HTN. Check BMP for kidney function and electrolyte status. Atrial fibrillation, unspecified type Taken off of eliquis d/t imbalance and dizziness. Family was concerned about increased fall risk. Could consider a baby aspirin. Frailty Due to age, bmi, poor cognition and multiple chronic illnesses. Mixed Alzheimer and vascular dementia SLUMS , resides in AL setting. Managed on donepezil, fluoxetine, and seroquel daily. See depression plan. Pressure injury of left buttock, stage 2 Ongoing, reports some discomfort. Wears several incontinence pads inside her disposable brief. Nursing orders state barrier cream BID and prn with soiling. Patient states she doesn't have any cream although it's clear on exam she had cream put on her buttocks at some point today. Will reach out to nursing regarding schedule of cream. Type 2 diabetes mellitus without complication, unspecified whether terminal manager insulin use Sugars reviewed; remain in 80s-100s. Lantus was decreased a few weeks ago d/t dizziness and weakness. Remains on 8 units QHS. Check A1c before adjusting insulin again. Could consider decreasing to 6 units Advance Care Planning POLST reviewed; DNR/Select Venous insufficiency of both lower extremities Monitor for open wounds, worsening edema, or induration. No s/s of cellulitis. Prevent Health Care Vaccination history reviewed and patient is up to date on vaccines. This patient has advanced illness and frailty, and routine preventive screening tests are not aligned with their/their POA's goals of care. Atherosclerosis of coronary artery of [place] heart without angina pectoris, unspecified vessel or lesion type Follows with outside cardiology. Hx of intolerance to statins. Unintentional weight loss Weight is 205 lbs. Unclear what her baseline is. Chronic heart failure with preserved ejection fraction Managed on HCTZ with potassium supplement. Follows with outside cardiology. Chronic obstructive pulmonary disease, unspecified COPD type Managed on trelegy daily. Did prescribed albuterol inhaler prn recently d/t SOB exacerbations in apartment according to nursing staff. Patient states breathing has been the same. She doesn't know she has albuterol in the medication cart to ask for. CAMILO (obstructive sleep apnea) Has historically refused a CPAP machine. Acute cystitis without hematuria Positive for UTI, treated with 5 days of macrobid. Urine was accidentally retested by staff and found to still be positive for infection. Has several allergies to antibiotics making it difficult to select an effective option. Wait for culture to result.. 06/01/2024
--- OUTSIDE RECORDS SUMMARY | 2024-06-25 02:18 | XMS_ITS | CCD ---
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 Care Director Of Philanthropy Name Role Phone Teresa Vivas Primary Care Provider Un available Unavailable Chronic Care Management Unavaila ble Summary Purpose DataExchange Insurance Providers Payer name Policy type / Coverage type Covered constitution party ID Effective Begin Date Effective End Date [place] Medicare Risk [id number] Unknown Un known Family history Mother Diagnosis Age At Onset Stroke Unknown Social History Social History Element Codes Description Effec tive Dates Marital status Unknown 04/13/2024 Marital status Unknown 04/13/2024 Living arrangements Unknown Assisted Living 04/[address]: 1262791 Former smoker 04/[address]: 2262915 Former smoker 04/[address]: 806455564 No Alcohol Consum ption 04/13/[address]: 773642 Currently drin ks alcohol 04/13/2024 Sexually Active? [...] No Inactive Date A ctive SIMVASTATIN RxNorm: 60291 04/13/2024 No Inactive D ate Active Penicillin Unknown 04/13/2024 No Inactive Date A ctive CLOPIDOGREL Unknown 03/23/2024 No Inactive Date Active naproxen RxNorm: 7258 04/13/2024 No Inactive Date Active levofloxacin RxNorm: 64109 03/23/2024 No Inactive Date Active Levemir Unknown 03/23/2024 No Inactive Date Ac tive metformin RxNorm: 976291 04/13/2024 No Inactive Da te Active ESTROGENS Unknown 03/23/2024 No Inactive Date Ac tive Atenolol RxNorm: 1202 04/13/2024 No Inactive Date Active metoprolol succinate RxNorm: 741016 03/23/2024 No Inactive Date Active Januvia RxNorm: 777314 04/13/2024 No Inactive Da te Active furosemide RxNorm: 4603 03/23/2024 No Inactive Balaji e Active azithromycin RxNorm: 70893 04/13/2024 No Inactive Date Active losartan RxNorm: 704493 04/13/2024 No Inactive Da te Active NSAIDS Unknown 03/23/2024 No Inactive Date Ac tive Amlodipine RxNorm: 451502 04/13/2024 No Inactive D ate Active LISINOPRIL RxNorm: 56640 04/13/2024 No Inactive Da te Active PIOGLITAZONE DERIVATIVES Unknown 04/13/2024 No I nactive Date Active Problems Condition Codes Effective Dates Condition [facility] ACP (advance care planning) SNOMED CT: 3 93250462 ICD-10: Z71.89 ICD-9: V65.49 06/01/2024 Active Acute cystitis without hematuria SNOMED CT: 62103755 ICD-10: N30.00 ICD-9: 595.0 06/01/2024 Active Adult general medical exam SNOMED CT: 30 3463281 ICD-10: Z00.00 ICD-9: V70.9 06/01/2024 Active Atherosclerosis of coronary artery of [place] heart without angina pectoris, unspecified vessel or [...] ICD-9: 311 06/01/[address]: 478588837 ICD-10: R54 ICD-9: 797 06/01/2024 Active Iron [...] 2 diabetes mellitus without complication, unspecified whether longterm insulin use ICD-10: E11.9 ICD-9: 250.00 06/01/2024 [...] fracture of L1 vertebra, sequela SNOMED CT: 363853405 ICD-10: S32.010S ICD-9: 905.1 04/13/2024 Active Dementia in other diseases classified elsewhere, unspecified severity, without behavioral disturbance, psychotic disturbance, mood disturbance, and anxiety ICD-10: F02.80 04/13/[address]: 280331669 ICD-10: K57.90 ICD-9: 562.10 04/13/2024 Active History of breast cancer SNOMED CT: 4290 50116 ICD-10: Z85.3 ICD-9: V10.3 04/13/2024 Active History of melanoma SNOMED CT: 499513811 ICD-10: Z85.820 ICD-9: V10.82 04/13/2024 Active History of TIA (transient ischemic attack) SNOMED CT: 091680795 ICD-10: Z86.73 ICD-9: V12.54 04/13/2024 Active Hyperlipidemia, unspecified hyperlipidemia type SNOMED CT: 08557400 ICD-10: E78.5 ICD-9: 272.4 04/13/2024 Active Statin intolerance SNOMED CT: 008139016 ICD-10: Z78.9 ICD-9: 995.27 04/13/2024 Active Urinary incontinence, unspecified type SNOMED CT: 195402154 ICD-10: R32 ICD-9: 788.30 04/13/2024 Active Vascular dementia, unspecifi ed severity, without behavioral disturbance, psychotic disturbance, mood disturbance, and anxiety ICD-10: F01.50 04/13/2024 Active Medications Medication Codes Instructions Start Date Stop Date Status Fill Instructions Alejandra Protect (zinc oxide) 12 % topical cream RxNorm: 151259 APPLY TO RIGHT BUTTOCK 2 TIMES DAILY;APPLY TO RIGHT BUTTOCK NEEDED WITH SOILING 06/12/19 25 026 Active albuterol sulfate HFA 90 mcg/actuation aerosol inhaler RxNorm: 3757718 Inhale 2 Puff(s) Inhalation Q4H every four hours as needed 06/01/19 25 No Stop Date Active Alejandra Protect (zinc oxide) 12 % topical cream RxNorm: 921547 cream Topical apply to right buttocks BID and PRN with soiling 06/01/19 25 025 Inactive Lantus Solostar U-100 Insulin 100 unit/mL (3 mL) subcutaneous pen RxNorm: 025089 Unit(s) Subcutaneous prime en with 2 units, then inject 8 units SQ QD at bedtime 05/18/19 25 026 Active potassium chloride ER 10 mEq tablet,extended release RxNorm: 846707 Take 1 Tablet(s) Oral QD 04/12/19 25 No Stop Date Active fluoxetine 10 mg capsule RxNorm: 868982 Take 1 Capsule(s) Oral QD 04/12/19 25 No Stop Date Active hydrochlorothiazide 25 mg tablet RxNorm: 684046 Take 1 Tablet(s) Oral QD 04/12/19 25 No Stop Date Active Oyster Shell Calcium 500 mg (as calcium carbonate 1,250 mg) tablet RxNorm: 621739 Take 1 Tablet(s) Oral QD 04/12/19 25 No Stop Date Active Co Q-10 200 mg capsule RxNorm: 234581 Capsule(s) Oral take 1 cap po daily with 100mg tab to =300mg daily 04/12/19 25 No Stop Date Active Co Q-10 100 mg capsule RxNorm: 475856 Capsule(s) Oral take 1 cap daily along with 200mg tab to =300mg daily 04/12/19 25 No Stop Date Active quetiapine 25 mg tablet RxNorm: 827852 Take 1 Tablet(s) Oral QHS every night at bedtime 04/12/19 25 No Stop Date Active Vitamin D3 25 mcg (1,000 unit) tablet RxNorm: 890656 Take 1 Tablet(s) Oral QD 04/12/19 25 No Stop Date Active acetaminophen 500 mg tablet RxNorm: 496526 Take 2 Tablet(s) Oral TID as needed 04/12/19 25 No Stop Date Active donepezil 10 mg tablet RxNorm: 115822 Take 1 Tablet(s) Oral QHS every night at bedtime 04/12/19 25 No Stop Date Active cyanocobalamin (vit B-12) 500 mcg tablet RxNorm: 321576 Take 1 Tablet(s) Oral QD 04/12/19 25 No Stop Date Active oxybutynin chloride ER 10 mg tablet,extended release 24 hr RxNorm: 738788 Take 1 Tablet(s) Oral QPM every evening 04/12/19 25 No Stop Date Active irbesartan 150 mg tablet RxNorm: 543467 Take 1 Tablet(s) Oral BID 04/12/19 25 No Stop Date Active Trelegy Ellipta 200 mcg-62.5 mcg-25 mcg powder for inhalation RxNorm: 7201028 Inhale 1 Puff(s) Inhalation every 24 hours 04/12/19 25 No Stop Date Active Vitron-C 65 mg iron-125 mg tablet,delayed release RxNorm: 5850669 Take 1 Tablet(s) Oral QOD every other day 04/12/19 25 No Stop Date Active Eliquis 5 mg tablet RxNorm: 4487890 Take 1 Tablet(s) Oral BID 04/12/19 25 025 Inactive Lantus Solostar U-100 Insulin 100 unit/mL (3 mL) subcutaneous pen RxNorm: 293669 Unit(s) Subcutaneous prime en with 2 units, [...] data Instructions Comment Date Alyx resides at [facility] since about 2021. Previously lived independently in [place]. . Has one daughter Maggie who is involved in healthcare. PMH: History of breast cancer and melanoma, mixed dementia, depression, CAD, HLD, history of CVA/TIA, compression fx of L1 vertebrae, urinary incontinence, hearing loss, osteopeniaPrimary contact: Maggie Gallegos (Daughter)Code Status: DNR/SelectLab Schedule: Mar/SepSpecialists: [facility] (Q6M), Cardiology [facility] (MD Echo) 06/11/2024
--- OUTSIDE RECORDS SUMMARY | 2024-06-25 02:18 | XMS_ITS | CCD ---
Author Name Linda Vivas Address [address] [place] [address] Phone Organization [facility] Phone Care Team Providers Care Groover And Turner Name Role Phone Teresa Vivas Primary Care Provider Un available Unavailable Chronic Care Management Unavaila ble Summary Purpose DataExchange Insurance Providers Payer name Policy type / Coverage type Covered alliance party ID Effective Begin Date Effective End Date BCBS of [facility] Medicare Risk [id number] Unknown Un known Family history Mother Diagnosis Age At Onset Stroke Unknown Social History Social History Element Codes Description Effec tive Dates Marital status Unknown 04/13/2024 Marital status Unknown 04/13/2024 Living arrangements Unknown Assisted Living 04/[address]: 9402707 Former smoker 04/[address]: 8983592 Former smoker 04/[address]: 858845754 No Alcohol Consum ption 04/13/[address]: 293886 Currently drin ks alcohol 04/13/2024 Sexually Active? [...] No Inactive Date A ctive SIMVASTATIN RxNorm: 99713 04/13/2024 No Inactive D ate Active Penicillin Unknown 04/13/2024 No Inactive Date A ctive CLOPIDOGREL Unknown 03/23/2024 No Inactive Date Active naproxen RxNorm: 7258 04/13/2024 No Inactive Date Active levofloxacin RxNorm: 94875 03/23/2024 No Inactive Date Active Levemir Unknown 03/23/2024 No Inactive Date Ac tive metformin RxNorm: 938378 04/13/2024 No Inactive Da te Active ESTROGENS Unknown 03/23/2024 No Inactive Date Ac tive Atenolol RxNorm: 1202 04/13/2024 No Inactive Date Active metoprolol succinate RxNorm: 800756 03/23/2024 No Inactive Date Active Januvia RxNorm: 483010 04/13/2024 No Inactive Da te Active furosemide RxNorm: 4603 03/23/2024 No Inactive Balaji e Active azithromycin RxNorm: 10554 04/13/2024 No Inactive Date Active losartan RxNorm: 355622 04/13/2024 No Inactive Da te Active NSAIDS Unknown 03/23/2024 No Inactive Date Ac tive Amlodipine RxNorm: 077063 04/13/2024 No Inactive D ate Active LISINOPRIL RxNorm: 26545 04/13/2024 No Inactive Da te Active PIOGLITAZONE DERIVATIVES Unknown 04/13/2024 No I nactive Date Active Problems Condition Codes Effective Dates Condition 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 ICD-9: 311 05/04/2024 Active Pressure injury of left buttock, stage [address]: 50993333143691 ICD-10: L89.322 ICD-9: 707.05 05/04/2024 Active Primary hypertension ICD-10: I10 ICD-9: 401.9 05/04/2024 Active Type 2 diabetes mellitus without complication, unspecified whether chcf insulin use ICD-10: E11.9 ICD-9: 250.00 05/04/2024 Active Advanced care planning - to document end of life discussions Unknown 04/13/2024 Active Diabetes mellitus Type 2 Unknown 04/13/2024 Act floyd Advance care planning SNOMED CT: 2369613 01 ICD-10: Z71.89 ICD-9: V65.49 04/13/2024 Active Atherosclerosis of coronary artery of [place] heart without angina pectoris, unspecified vessel or lesion type SNOMED CT: 397923208 ICD-10: I25.10 ICD-9: 414.01 04/13/2024 Active Atrial fibrillation, unspecified type SNOMED CT: 26143350 ICD-10: I48.91 ICD-9: 427.31 04/13/2024 Active Chronic heart failure with preserved ejection fraction SNOMED CT: 140596111 ICD-10: I50.32 ICD-9: 428.9 04/13/2024 Active Chronic obstructive pulmonary disease, unspecified COPD type SNOMED CT: 92603925 ICD-10: J44.9 ICD-9: 496 04/13/2024 Active Compression fracture of L1 vertebra, sequela SNOMED CT: 714346283 ICD-10: S32.010S ICD-9: 905.1 04/13/2024 Active Dementia in other diseases classified elsewhere, unspecified severity, without behavioral disturbance, psychotic disturbance, mood disturbance, and anxiety ICD-10: F02.80 04/13/[address]: 846410369 ICD-10: K57.90 ICD-9: 562.10 04/13/2024 Active History of breast cancer SNOMED CT: 4290 05562 ICD-10: Z85.3 ICD-9: V10.3 04/13/2024 Active History of melanoma SNOMED CT: 858507253 ICD-10: Z85.820 ICD-9: V10.82 04/13/2024 Active History of TIA (transient ischemic attack) SNOMED CT: 542260412 ICD-10: Z86.73 ICD-9: V12.54 04/13/2024 Active Hyperlipidemia, unspecified hyperlipidemia type SNOMED CT: 62423701 ICD-10: E78.5 ICD-9: 272.4 04/13/2024 Active Iron deficiency anemia, unspecified iron deficiency anemia type SNOMED CT: 08189716 ICD-10: D50.9 ICD-9: 280.9 04/13/2024 Active Mixed Alzheimer and vascular dementia SNOMED CT: 53188868127605 ICD-10: G30.9 ICD-9: 331.0 04/13/2024 Active CAMILO (obstructive sleep apnea) SNOMED CT: 79424654 ICD-10: G47.33 ICD-9: 327.23 04/13/2024 Active Osteopenia, unspecified location SNOMED CT: 426086785 ICD-10: M85.80 ICD-9: 733.90 04/13/2024 Active Statin intolerance SNOMED CT: 002734379 ICD-10: Z78.9 ICD-9: 995.27 04/13/2024 Active Unintentional weight loss SNOMED CT: 448 054893 ICD-10: R63.4 ICD-9: 783.21 04/13/2024 Active Unsteady gait SNOMED CT: 50166041 ICD-10: R26.81 ICD-9: 781.2 04/13/2024 Active Urinary incontinence, unspecified type SNOMED CT: 450173923 ICD-10: R32 ICD-9: 788.30 04/13/2024 Active Vascular dementia, unspecified severity, without behavioral disturbance, psychotic disturbance, mood disturbance, and anxiety ICD-10: F01.50 04/13/2024 Active Venous insufficiency of both lower extremities SNOMED CT: 465386311 ICD-10: I87.2 ICD-9: 459.81 04/13/2024 Active Medications Medication Codes Instructions Start Date Stop Date Status Fill Instructions Lantus Solostar U-100 Insulin 100 unit/mL (3 mL) subcutaneous pen RxNorm: 225797 Unit(s) Subcutaneous prime en with 2 units, then inject 8 units SQ QD at bedtime 05/18/19 25 026 Active potassium chloride ER 10 mEq tablet,extended release RxNorm: 022542 Take 1 Tablet(s) Oral QD 04/12/19 25 No Stop Date Active fluoxetine 10 mg capsule RxNorm: 338068 Take 1 Capsule(s) Oral QD 04/12/19 25 No Stop Date Active hydrochlorothiazide 25 mg tablet RxNorm: 855411 Take 1 Tablet(s) Oral QD 04/12/19 25 No Stop Date Active Oyster Shell Calcium 500 mg (as calcium carbonate 1,250 mg) tablet RxNorm: 442787 Take 1 Tablet(s) Oral QD 04/12/19 25 No Stop Date Active Co Q-10 200 mg capsule RxNorm: 095529 Capsule(s) Oral take 1 cap po daily with 100mg tab to =300mg daily 04/12/19 25 No Stop Date Active Co Q-10 100 mg capsule RxNorm: 994946 Capsule(s) Oral take 1 cap daily along with 200mg tab to =300mg daily 04/12/19 25 No Stop Date Active quetiapine 25 mg tablet RxNorm: 482348 Take 1 Tablet(s) Oral QHS every night at bedtime 04/12/19 25 No Stop Date Active Vitamin D3 25 mcg (1,000 unit) tablet RxNorm: 781848 Take 1 Tablet(s) Oral QD 04/12/19 25 No Stop Date Active acetaminophen 500 mg tablet RxNorm: 490700 Take 2 Tablet(s) Oral TID as needed 04/12/19 25 No Stop Date Active donepezil 10 mg tablet RxNorm: 162724 Take 1 Tablet(s) Oral QHS every night at bedtime 04/12/19 25 No Stop Date Active cyanocobalamin (vit B-12) 500 mcg tablet RxNorm: 370468 Take 1 Tablet(s) Oral QD 04/12/19 25 No Stop Date Active oxybutynin chloride ER 10 mg tablet,extended release 24 hr RxNorm: 858040 Take 1 Tablet(s) Oral QPM every evening 04/12/19 25 No Stop Date Active irbesartan 150 mg tablet RxNorm: 187763 Take 1 Tablet(s) Oral BID 04/12/19 25 No Stop Date Active Trelegy Ellipta 200 mcg-62.5 mcg-25 mcg powder for inhalation RxNorm: 3516066 Inhale 1 Puff(s) Inhalation every 24 hours 04/12/19 25 No Stop Date Active Vitron-C 65 mg iron-125 mg tablet,delayed release RxNorm: 5847150 Take 1 Tablet(s) Oral QOD every other day 04/12/19 25 No Stop Date Active Eliquis 5 mg tablet RxNorm: 9369189 Take 1 Tablet(s) Oral BID 04/12/19 25 025 Inactive Lantus Solostar U-100 Insulin 100 unit/mL (3 mL) subcutaneous pen RxNorm: 026776 Unit(s) Subcutaneous prime en with 2 units, then inject 10 units SQ QD at bedtime 04/12/19 025 Inactive Medication Administered No Medication Administered [...] Item Item Code Result Date Service Location Urine Culture 23181 URINE CULTURE 43912-8 SEE RESU LTS BELOW 06/04/19 Unknown UA with Microscopic 34505 COLOR Light Yellow 06/01/19 Unknown UA with Microscopic 86560 Appearance Slightly Cloudy 06/01/19 Unknown UA with Microscopic 50931 GLUCOSE, URINE Negative mg/dL 06/01/19 Unknown UA with Microscopic 08334 BILIRUBIN, URINE Negative 06/01/19 Unknown UA with Microscopic 75403 Ketones Urine Negative mg/dL 06/01/19 Unknown UA with Microscopic 59915 Specific [place] Urine 1.012 06/01/19 Unknown UA with Microscopic 64498 BLOOD, URINE Negative 06/01/19 Unknown UA with Microscopic 99338 pH Urine 6.5 06/01/19 Unknown UA with Microscopic 39780 Protein urine Negative mg/dL 06/01/19 Unknown UA with Microscopic 97146 UROBILINOGEN IRIS Normal mg/dL 06/01/19 Unknown UA with Microscopic 70359 Nitrites Positive 03/24/20 25 Unknown UA with Microscopic 54534 LEUK ESTERASE Trace 06/01/19 25 Unknown UA with Microscopic 55000 Bacteria Few /HPF 06/01/19 25 Unknown UA with Microscopic 80631 WBC CLUMPS 6690-2 Present /HPF 06/01/19 Unknown UA with Microscopic 62580 Mucus Urine Present /LPF 06/01/19 Unknown UA with Microscopic 22315 RBC Urine <1 /HPF 06/01/19 Unknown UA with Microscopic 82747 SQUAMOUS EPITHELIAL 2 /HPF 06/01/19 25 Unknown UA with Microscopic 45962 WBC Urine 09477-1 26 /HPF 06/01/19 Unknown Functional Status Functional / Cognitive Codes Status [...] For Visit No Reason For Visit data Plan of Care Planned Activity Notes Codes Status Date Appointment: Michela Talbot WPtel: [address] [place], [place] [id number] 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 Previously lived independently in [place]. . Has one daughter Maggie who is involved in healthcare. PMH: History of breast cancer and melanoma, mixed dementia, depression, CAD, HLD, history of CVA/TIA, compression fx of L1 vertebrae, urinary incontinence, hearing loss, osteopeniaPrimary contact: Maggie Gallegos (Daughter)Code Status: DNR/SelectLab Schedule: Mar/SepSpecialists: [facility] (Q6M), Cardiology [facility] (MD Echo) 06/11/2024
--- OUTSIDE RECORDS SUMMARY | 2024-06-25 02:18 | XMS_ITS | CCD ---
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 Care Brewer Helper Name Role Phone Teresa Vivas Primary Care Provider Un available Unavailable Chronic Care Management Unavaila ble Summary Purpose DataExchange Insurance Providers Payer name Policy type / Coverage type Covered libertarian ID Effective Begin Date Effective End Date [place] [id number] Unknown Un known Family history Mother Diagnosis Age At Onset Stroke Unknown Social History Social History Element Codes Description Effec tive Dates Marital status Unknown 04/13/2024 Marital status Unknown 04/13/2024 Living arrangements Unknown Assisted Living 04/[address]: 2130715 Former smoker 04/[address]: 7500861 Former smoker 04/[address]: 288140061 No Alcohol Consum ption 04/13/[address]: 137629 Currently drin ks alcohol 04/13/2024 Sexually Active? [...] No Inactive Date A ctive SIMVASTATIN RxNorm: 16759 04/13/2024 No Inactive D ate Active Penicillin Unknown 04/13/2024 No Inactive Date A ctive CLOPIDOGREL Unknown 03/23/2024 No Inactive Date Active naproxen RxNorm: 7258 04/13/2024 No Inactive Date Active levofloxacin RxNorm: 55827 03/23/2024 No Inactive Date Active Levemir Unknown 03/23/2024 No Inactive Date Ac tive metformin RxNorm: 371639 04/13/2024 No Inactive Da te Active ESTROGENS Unknown 03/23/2024 No Inactive Date Ac tive Atenolol RxNorm: 1202 04/13/2024 No Inactive Date Active metoprolol succinate RxNorm: 690565 03/23/2024 No Inactive Date Active Januvia RxNorm: 620003 04/13/2024 No Inactive Da te Active furosemide RxNorm: 4603 03/23/2024 No Inactive Balaji e Active azithromycin RxNorm: 64241 04/13/2024 No Inactive Date Active losartan RxNorm: 562309 04/13/2024 No Inactive Da te Active NSAIDS Unknown 03/23/2024 No Inactive Date Ac tive Amlodipine RxNorm: 405815 04/13/2024 No Inactive D ate Active LISINOPRIL RxNorm: 54427 04/13/2024 No Inactive Da te Active PIOGLITAZONE DERIVATIVES Unknown 04/13/2024 No I nactive Date Active Problems Condition Codes Effective Dates Condition 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 ICD-9: 311 05/04/2024 Active Pressure injury of left buttock, stage [address]: 78545919421672 ICD-10: L89.322 ICD-9: 707.05 05/04/2024 Active Primary hypertension ICD-10: I10 ICD-9: 401.9 05/04/2024 Active Type 2 diabetes mellitus without complication, unspecified whether usp insulin use ICD-10: E11.9 ICD-9: 250.00 05/04/2024 Active Advanced care planning - to document end of life discussions Unknown 04/13/2024 Active Diabetes mellitus Type 2 Unknown 04/13/2024 Act floyd Advance care planning SNOMED CT: 1358050 01 ICD-10: Z71.89 ICD-9: V65.49 04/13/2024 Active Atherosclerosis of coronary artery of [place] heart without angina pectoris, unspecified vessel or lesion type SNOMED CT: 924153772 ICD-10: I25.10 ICD-9: 414.01 04/13/2024 Active Atrial fibrillation, unspecified type SNOMED CT: 64973773 ICD-10: I48.91 ICD-9: 427.31 04/13/2024 Active Chronic heart failure with preserved ejection fraction SNOMED CT: 204902934 ICD-10: I50.32 ICD-9: 428.9 04/13/2024 Active Chronic obstructive pulmonary disease, unspecified COPD type SNOMED CT: 25258300 ICD-10: J44.9 ICD-9: 496 04/13/2024 Active Compression fracture of L1 vertebra, sequela SNOMED CT: 120935121 ICD-10: S32.010S ICD-9: 905.1 04/13/2024 Active Dementia in other diseases classified elsewhere, unspecified severity, without behavioral disturbance, psychotic disturbance, mood disturbance, and anxiety ICD-10: F02.80 04/13/[address]: 319197586 ICD-10: K57.90 ICD-9: 562.10 04/13/2024 Active History of breast cancer SNOMED CT: 4290 25759 ICD-10: Z85.3 ICD-9: V10.3 04/13/2024 Active History of melanoma SNOMED CT: 274090454 ICD-10: Z85.820 ICD-9: V10.82 04/13/2024 Active History of TIA (transient ischemic attack) SNOMED CT: 979306664 ICD-10: Z86.73 ICD-9: V12.54 04/13/2024 Active Hyperlipidemia, unspecified hyperlipidemia type SNOMED CT: 93961085 ICD-10: E78.5 ICD-9: 272.4 04/13/2024 Active Iron deficiency anemia, unspecified iron deficiency anemia type SNOMED CT: 73928356 ICD-10: D50.9 ICD-9: 280.9 04/13/2024 Active Mixed Alzheimer and vascular dementia SNOMED CT: 84696398868300 ICD-10: G30.9 ICD-9: 331.0 04/13/2024 Active CAMILO (obstructive sleep apnea) SNOMED CT: 57147863 ICD-10: G47.33 ICD-9: 327.23 04/13/2024 Active Osteopenia, unspecified location SNOMED CT: 197551840 ICD-10: M85.80 ICD-9: 733.90 04/13/2024 Active Statin intolerance SNOMED CT: 211661288 ICD-10: Z78.9 ICD-9: 995.27 04/13/2024 Active Unintentional weight loss SNOMED CT: 448 408675 ICD-10: R63.4 ICD-9: 783.21 04/13/2024 Active Unsteady gait SNOMED CT: 54324640 ICD-10: R26.81 ICD-9: 781.2 04/13/2024 Active Urinary incontinence, unspecified type SNOMED CT: 222067494 ICD-10: R32 ICD-9: 788.30 04/13/2024 Active Vascular dementia, unspecified severity, without behavioral disturbance, psychotic disturbance, mood disturbance, and anxiety ICD-10: F01.50 04/13/2024 Active Venous insufficiency of both lower extremities SNOMED CT: 522029711 ICD-10: I87.2 ICD-9: 459.81 04/13/2024 Active Medications Medication Codes Instructions Start Date Stop Date Status Fill Instructions Lantus Solostar U-100 Insulin 100 unit/mL (3 mL) subcutaneous pen RxNorm: 566213 Unit(s) Subcutaneous prime en with 2 units, then inject 8 units SQ QD at bedtime 05/18/19 25 026 Active potassium chloride ER 10 mEq tablet,extended release RxNorm: 754231 Take 1 Tablet(s) Oral QD 04/12/19 25 No Stop Date Active fluoxetine 10 mg capsule RxNorm: 298147 Take 1 Capsule(s) Oral QD 04/12/19 25 No Stop Date Active hydrochlorothiazide 25 mg tablet RxNorm: 580500 Take 1 Tablet(s) Oral QD 04/12/19 25 No Stop Date Active Oyster Shell Calcium 500 mg (as calcium carbonate 1,250 mg) tablet RxNorm: 936911 Take 1 Tablet(s) Oral QD 04/12/19 25 No Stop Date Active Co Q-10 200 mg capsule RxNorm: 874954 Capsule(s) Oral take 1 cap po daily with 100mg tab to =300mg daily 04/12/19 25 No Stop Date Active Co Q-10 100 mg capsule RxNorm: 731117 Capsule(s) Oral take 1 cap daily along with 200mg tab to =300mg daily 04/12/19 25 No Stop Date Active quetiapine 25 mg tablet RxNorm: 625619 Take 1 Tablet(s) Oral QHS every night at bedtime 04/12/19 25 No Stop Date Active Vitamin D3 25 mcg (1,000 unit) tablet RxNorm: 868949 Take 1 Tablet(s) Oral QD 04/12/19 25 No Stop Date Active acetaminophen 500 mg tablet RxNorm: 984708 Take 2 Tablet(s) Oral TID as needed 04/12/19 25 No Stop Date Active donepezil 10 mg tablet RxNorm: 620414 Take 1 Tablet(s) Oral QHS every night at bedtime 04/12/19 25 No Stop Date Active cyanocobalamin (vit B-12) 500 mcg tablet RxNorm: 955927 Take 1 Tablet(s) Oral QD 04/12/19 25 No Stop Date Active oxybutynin chloride ER 10 mg tablet,extended release 24 hr RxNorm: 657174 Take 1 Tablet(s) Oral QPM every evening 04/12/19 25 No Stop Date Active irbesartan 150 mg tablet RxNorm: 410167 Take 1 Tablet(s) Oral BID 04/12/19 25 No Stop Date Active Trelegy Ellipta 200 mcg-62.5 mcg-25 mcg powder for inhalation RxNorm: 1713480 Inhale 1 Puff(s) Inhalation every 24 hours 04/12/19 25 No Stop Date Active Vitron-C 65 mg iron-125 mg tablet,delayed release RxNorm: 4126492 Take 1 Tablet(s) Oral QOD every other day 04/12/19 25 No Stop Date Active Lantus Solostar U-100 Insulin 100 unit/mL (3 mL) subcutaneous pen RxNorm: 860636 Unit(s) Subcutaneous prime en with 2 units, then inject 10 units SQ QD at bedtime 04/12/19 25 025 Inactive Eliquis 5 mg tablet RxNorm: 4727750 Take 1 Tablet(s) Oral BID 04/12/19 25 025 Inactive Medication Administered No [...] data Instructions Comment Date Alyx resides at [facility] since about 2021. Previously lived independently in [place]. . Has one daughter Maggie who is involved in healthcare. PMH: History of breast cancer and melanoma, mixed dementia, depression, CAD, HLD, history of CVA/TIA, compression fx of L1 vertebrae, urinary incontinence, hearing loss, osteopeniaPrimary contact: Maggie Gallegos (Daughter)Code Status: DNR/SelectLab Schedule: Mar/SepSpecialists: [facility] (Q6M), Cardiology [facility] ([facility]) 06/11/2024
--- OUTSIDE RECORDS SUMMARY | 2024-06-25 02:18 | XMS_ITS | CCD ---
Author Name Linda Vivas Address [address] [place] [address] Phone Organization [facility] Phone Care Team Providers Care Echo Vascular Tech Name Role Phone Teresa Vivas Primary Care Provider Un available Unavailable Chronic Care Management Unavaila ble Summary Purpose DataExchange Insurance Providers Payer name Policy type / Coverage type Covered democrat ID Effective Begin Date Effective End Date BCBS of [facility] Medicare Risk [id number] Unknown Un known Family history Mother Diagnosis Age At Onset Stroke Unknown Social History Social History Element Codes Description Effec tive Dates Marital status Unknown 04/13/2024 Marital status Unknown 04/13/2024 Living arrangements Unknown Assisted Living 04/[address]: 9357099 Former smoker 04/[address]: 2159172 Former smoker 04/[address]: 010258708 No Alcohol Consum ption 04/13/[address]: 422969 Currently drin ks alcohol 04/13/2024 Sexually Active? [...] No Inactive Date A ctive SIMVASTATIN RxNorm: 21493 04/13/2024 No Inactive D ate Active Penicillin Unknown 04/13/2024 No Inactive Date A ctive CLOPIDOGREL Unknown 03/23/2024 No Inactive Date Active naproxen RxNorm: 7258 04/13/2024 No Inactive Date Active levofloxacin RxNorm: 98528 03/23/2024 No Inactive Date Active Levemir Unknown 03/23/2024 No Inactive Date Ac tive metformin RxNorm: 449029 04/13/2024 No Inactive Da te Active ESTROGENS Unknown 03/23/2024 No Inactive Date Ac tive Atenolol RxNorm: 1202 04/13/2024 No Inactive Date Active metoprolol succinate RxNorm: 499248 03/23/2024 No Inactive Date Active Januvia RxNorm: 155054 04/13/2024 No Inactive Da te Active furosemide RxNorm: 4603 03/23/2024 No Inactive Balaji e Active azithromycin RxNorm: 49464 04/13/2024 No Inactive Date Active losartan RxNorm: 997175 04/13/2024 No Inactive Da te Active NSAIDS Unknown 03/23/2024 No Inactive Date Ac tive Amlodipine RxNorm: 972090 04/13/2024 No Inactive D ate Active LISINOPRIL RxNorm: 13356 04/13/2024 No Inactive Da te Active PIOGLITAZONE DERIVATIVES Unknown 04/13/2024 No I nactive Date Active Problems Condition Codes Effective Dates Condition St atus Advanced care planning - to document end of life discussions Unknown 04/13/2024 Active Diabetes mellitus Type 2 Unknown 04/13/2024 Act floyd Advance care planning SNOMED CT: 6781119 01 ICD-10: Z71.89 ICD-9: V65.49 04/13/2024 Active Atherosclerosis of coronary artery of [place] heart without angina pectoris, unspecified vessel or lesion type SNOMED CT: 327784453 ICD-10: I25.10 ICD-9: 414.01 04/13/2024 Active Atrial fibrillation, unspecified type SNOMED CT: 49604507 ICD-10: I48.91 ICD-9: 427.31 04/13/2024 Active Chronic heart failure with preserved ejection fraction SNOMED CT: 650093222 ICD-10: I50.32 ICD-9: 428.9 04/13/2024 Active Chronic obstructive pulmonary disease, unspecified COPD type SNOMED CT: 82963550 ICD-10: J44.9 ICD-9: 496 04/13/2024 Active Compression fracture of L1 vertebra, sequela SNOMED CT: 975090783 ICD-10: S32.010S ICD-9: 905.1 04/13/2024 Active Dementia in other diseases classified elsewhere, unspecified severity, without behavioral disturbance, psychotic disturbance, mood disturbance, and anxiety ICD-10: F02.80 04/13/2024 Active Depression due to dementia SNOMED CT: 37 234743 ICD-10: F03.93 ICD-9: 311 04/13/[address]: 490715233 ICD-10: K57.90 ICD-9: 562.10 04/13/2024 Active History of breast cancer SNOMED CT: 4290 39085 ICD-10: Z85.3 ICD-9: V10.3 04/13/2024 Active History of melanoma SNOMED CT: 559948530 ICD-10: Z85.820 ICD-9: V10.82 04/13/2024 Active History of TIA (transient ischemic attack) SNOMED CT: 686107527 ICD-10: Z86.73 ICD-9: V12.54 04/13/2024 Active Hyperlipidemia, unspecified hyperlipidemia type SNOMED CT: 96598006 ICD-10: E78.5 ICD-9: 272.4 04/13/2024 Active Iron deficiency anemia, unspecified iron deficiency anemia type SNOMED CT: 99643561 ICD-10: D50.9 ICD-9: 280.9 04/13/2024 Active Mixed Alzheimer and vascular dementia SNOMED CT: 79401433701394 ICD-10: G30.9 ICD-9: 331.0 04/13/2024 Active CAMILO (obstructive sleep apnea) SNOMED CT: 72931946 ICD-10: G47.33 ICD-9: 327.23 04/13/2024 Active Osteopenia, unspecified location SNOMED CT: 718878227 ICD-10: M85.80 ICD-9: 733.90 04/13/2024 Active Primary hypertension SNOMED CT: 18201335 ICD-10: I10 ICD-9: 401.9 04/13/2024 Active Statin intolerance SNOMED CT: 945349823 ICD-10: Z78.9 ICD-9: 995.27 04/13/2024 Active Type 2 diabetes mellitus without complication, unspecified whether terminal carman insulin use SNOMED CT: 58233263 ICD-10: E11.9 ICD-9: 250.00 04/13/2024 Active Unintentional weight loss SNOMED CT: 448 915536 ICD-10: R63.4 ICD-9: 783.21 04/13/2024 Active Unsteady gait SNOMED CT: 38824765 ICD-10: R26.81 ICD-9: 781.2 04/13/2024 Active Urinary incontinence, unspecified type SNOMED CT: 263493297 ICD-10: R32 ICD-9: 788.30 04/13/2024 Active Vascular dementia, unspecified severity, without behavioral disturbance, psychotic disturbance, mood disturbance, and anxiety ICD-10: F01.50 04/13/2024 Active Venous insufficiency of both lower extremities SNOMED CT: 402765173 ICD-10: I87.2 ICD-9: 459.81 04/13/2024 Active Medications Medication Codes Instructions Start Date Stop Date Status Fill Instructions potassium chloride ER 10 mEq tablet,extended release RxNorm: 256227 Take 1 Tablet(s) Oral QD 04/12/19 25 No Stop Date Active fluoxetine 10 mg capsule RxNorm: 531809 Take 1 Capsule(s) Oral QD 04/12/19 25 No Stop Date Active hydrochlorothiazide 25 mg tablet RxNorm: 135994 Take 1 Tablet(s) Oral QD 04/12/19 25 No Stop Date Active Oyster Shell Calcium 500 mg (as calcium carbonate 1,250 mg) tablet RxNorm: 039853 Take 1 Tablet(s) Oral QD 04/12/19 25 No Stop Date Active Co Q-10 200 mg capsule RxNorm: 221840 Capsule(s) Oral take 1 cap po daily with 100mg tab to =300mg daily 04/12/19 25 No Stop Date Active Co Q-10 100 mg capsule RxNorm: 071594 Capsule(s) Oral take 1 cap daily along with 200mg tab to =300mg daily 04/12/19 25 No Stop Date Active quetiapine 25 mg tablet RxNorm: 441467 Take 1 Tablet(s) Oral QHS every night at bedtime 04/12/19 25 No Stop Date Active Vitamin D3 25 mcg (1,000 unit) tablet RxNorm: 950634 Take 1 Tablet(s) Oral QD 04/12/19 25 No Stop Date Active acetaminophen 500 mg tablet RxNorm: 012235 Take 2 Tablet(s) Oral TID as needed 04/12/19 25 No Stop Date Active donepezil 10 mg tablet RxNorm: 167574 Take 1 Tablet(s) Oral QHS every night at bedtime 04/12/19 25 No Stop Date Active cyanocobalamin (vit B-12) 500 mcg tablet RxNorm: 059575 Take 1 Tablet(s) Oral QD 04/12/19 25 No Stop Date Active oxybutynin chloride ER 10 mg tablet,extended release 24 hr RxNorm: 482629 Take 1 Tablet(s) Oral QPM every evening 04/12/19 25 No Stop Date Active irbesartan 150 mg tablet RxNorm: 125435 Take 1 Tablet(s) Oral BID 04/12/19 25 No Stop Date Active Trelegy Ellipta 200 mcg-62.5 mcg-25 mcg powder for inhalation RxNorm: 5369704 Inhale 1 Puff(s) Inhalation every 24 hours 04/12/19 25 No Stop Date Active Vitron-C 65 mg iron-125 mg tablet,delayed release RxNorm: 2698827 Take 1 Tablet(s) Oral QOD every other day 04/12/19 25 No Stop Date Active Eliquis 5 mg tablet RxNorm: 3696769 Take 1 Tablet(s) Oral BID 04/12/19 25 025 Inactive Lantus Solostar U-100 Insulin 100 unit/mL (3 mL) subcutaneous pen RxNorm: 680010 Unit(s) Subcutaneous prime en with 2 units, [...] Observation Code Item Item Code Result Date S ervice Location PHQ9 PHQ9 28065-9 2 04/13/2024 Unknown [facility] 11687-2 13 04/13/2024 Unknown Procedures Procedure Codes Date PT INELIG NEG SCRN DEPRES SNOMED CT: 428 578212795077 CPT-4: G8510 04/13/2024 Vital Signs Date Vital 04/13/2024 Blood Pressure 1: 128/87 Code: 8480-6 Heart Rate 1: 80 bpm Code: 8867-4 Height: 5'7 Code: 8302-2 Respiratory Rate: 18 bpm SpO2: 94% Temperature: 36.2 (C) / 97.2 (F) Functional Status Functional / Cognitive Codes Status [...] Encounter Performer Location Location Address Codes Date (51834) Home or Residence Visit TELEPHONIC CASE MANAGER - Moderate Level, 60 mins Diagnosis: Statin intolerance[SNOMED: 282133089] Diagnosis: Mixed Alzheimer and vascular dementia[SNOMED: 60494445478881] Diagnosis: Vascular dementia, unspecified severity, without behavioral disturbance, psychotic disturbance, mood disturbance, and anxiety[ICD10: F01.50] Diagnosis: Dementia in other diseases classified elsewhere, unspecified severity, without behavioral disturbance, psychotic disturbance, mood disturbance, and anxiety[ICD10: F02.80] Diagnosis: History of TIA (transient ischemic attack)[SNOMED: 895837136] Diagnosis: Type 2 diabetes mellitus without complication, unspecified whether group home insulin use[SNOMED: 95618947] Diagnosis: Venous insufficiency of both lower extremities[SNOMED: 632959548] Diagnosis: Hyperlipidemia, unspecified hyperlipidemia type[SNOMED: 40538456] Diagnosis: Unintentional weight loss[SNOMED: 282206531] Diagnosis: Urinary incontinence, unspecified type[SNOMED: 637940530] Diagnosis: Depression due to dementia[SNOMED: 26539610] Diagnosis: Compression fracture of L1 vertebra, sequela[SNOMED: 811693457] Diagnosis: Atherosclerosis of coronary artery of [place] heart without angina pectoris, unspecified vessel or lesion type[SNOMED: 837595188] Diagnosis: Unsteady gait[SNOMED: 14135952] Diagnosis: Iron deficiency anemia, unspecified iron deficiency anemia type[SNOMED: 35495160] Diagnosis: Osteopenia, unspecified location[SNOMED: 393189571] Diagnosis: CAMILO (obstructive sleep apnea)[SNOMED: 74995489] Diagnosis: Chronic obstructive pulmonary disease, unspecified COPD type[SNOMED: 77384177] Diagnosis: History of breast cancer[SNOMED: 174342702] Diagnosis: History of melanoma[SNOMED: 474507339] Diagnosis: Primary hypertension[SNOMED: 82078721] Diagnosis: Chronic heart failure with preserved ejection fraction[SNOMED: 468726426] Diagnosis: Diverticulosis[SNOMED : 013032586] Diagnosis: Atrial fibrillation, unspecified type[SNOMED: 97149208] Diagnosis: Advance care planning[SNOMED: 763826592] Teresa Talbot [facility] [address] [place] [address] CPT-4: 98827 04/13/2024 Plan of Care Planned Activity Notes Codes Status Date Patient Education: Patient Medication Summary Completed 04/13/2024 Patient Education: Influenza Complet ed 04/13/2024 Patient Education: Alzheimer''s Disease Completed 04/13/2024 Patient Education: Dementia Complete d 04/13/2024 Instructions Comment Date Alyx resides at [facility] since about 2021. Previously lived independently in [place]. . Has one daughter Maggie who is involved in healthcare. PMH: History of breast cancer and melanoma, mixed dementia, depression, CAD, HLD, history of CVA/TIA, compression fx of L1 vertebrae, urinary incontinence, hearing loss, osteopeniaPrimary contact: Maggie Gallegos (Daughter)Code Status: DNR/SelectLab Schedule: Mar/SepSpecialists: [facility] (Q6M), Cardiology [facility] ([facility] Echo) 06/11/2024 Iron deficiency anemia, unsp ecified iron deficiency anemia type Historically has refused EGD/colonoscopy. Not managed on iron supplement, does take B12. Labs due next month. Primary hypertension BP 128/87, family reports staff obtain BP consistently. Will f/u with nursing. She is managed on irbesartan 150mg BID and HCTZ 25mg QD. Mixed Alzheimer and vascular dementia SLUMS . Managed on donepezil 10mg daily. Also on fluoxetine 10mg and seroquel 25mg QHS for behavioral/mood stability. Family report her dementia continues to worsen. She remains in AL and is not an elopement risk at this time. She has meals delivered to her apartment. Osteopenia, unspecified location Managed on calcium+vitamin D3 supplementation. Hx of compression fx of lumbar spine. Atrial fibrillation, unspecified type Has seen cardiology in [place] 01/2024. Managed on eliquis 5mg BID. No excessive bruising or bleeding on exam. Atherosclerosis of coronary artery of [place] heart without angina pectoris, unspecified vessel or lesion type Follows with outside cardiology. Has intolerance to statins. Now on eliquis for ?a fib status. Chronic heart failure with preserved ejection fraction Follows with outside cardiology. Managed on HCTZ 25mg with potassium supplementation. Mild edema of LE bilaterally. Mild wheezing of bilateral upper lung lobes likely more from COPD vs CHF. Venous insufficiency of both lower extremities Some discoloration of legs although no open wounds or concerning lesions at this time. Chronic obstructive pulmonary disease, unspecified COPD type Managed on trelegy daily and breathing is much improved according to patient and family. Mild wheezing in upper lung lobes bilaterally on exam. Depression due to dementia See dementia plan. Advance Care Planning POLST reviewed; DNR/Select. Daughter Maggie is POA. 04/13/2024
--- OUTSIDE RECORDS SUMMARY | 2024-06-25 02:18 | XMS_ITS | CCD ---
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 Name Role Phone Teresa Vivas Primary Care Provider Un available Unavailable Chronic Care Management Unavaila ble Summary Purpose DataExchange Insurance Providers Payer name Policy type / Coverage type Covered constitution party ID Effective Begin Date Effective End Date BCBS of [facility] Medicare Risk [id number] Unknown Un known Family history Mother Diagnosis Age At Onset Stroke Unknown Social History Social History Element Codes Description Effec tive Dates Marital status Unknown 04/13/2024 Marital status Unknown 04/13/2024 Living arrangements Unknown Assisted Living 04/[address]: 5984994 Former smoker 04/[address]: 6894677 Former smoker 04/[address]: 138649770 No Alcohol Consum ption 04/13/[address]: 529875 Currently drin ks alcohol 04/13/2024 Sexually Active? [...] No Inactive Date A ctive SIMVASTATIN RxNorm: 62000 04/13/2024 No Inactive D ate Active Penicillin Unknown 04/13/2024 No Inactive Date A ctive CLOPIDOGREL Unknown 03/23/2024 No Inactive Date Active naproxen RxNorm: 7258 04/13/2024 No Inactive Date Active levofloxacin RxNorm: 17058 03/23/2024 No Inactive Date Active Levemir Unknown 03/23/2024 No Inactive Date Ac tive metformin RxNorm: 029743 04/13/2024 No Inactive Da te Active ESTROGENS Unknown 03/23/2024 No Inactive Date Ac tive Atenolol RxNorm: 1202 04/13/2024 No Inactive Date Active metoprolol succinate RxNorm: 002505 03/23/2024 No Inactive Date Active Januvia RxNorm: 607540 04/13/2024 No Inactive Da te Active furosemide RxNorm: 4603 03/23/2024 No Inactive Balaji e Active azithromycin RxNorm: 82149 04/13/2024 No Inactive Date Active losartan RxNorm: 576886 04/13/2024 No Inactive Da te Active NSAIDS Unknown 03/23/2024 No Inactive Date Ac tive Amlodipine RxNorm: 936933 04/13/2024 No Inactive D ate Active LISINOPRIL RxNorm: 41950 04/13/2024 No Inactive Da te Active PIOGLITAZONE DERIVATIVES Unknown 04/13/2024 No I nactive Date Active Problems Condition Codes Effective Dates Condition 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 ICD-9: 311 05/04/2024 Active Pressure injury of left buttock, stage [address]: 80067308005201 ICD-10: L89.322 ICD-9: 707.05 05/04/2024 Active Primary hypertension ICD-10: I10 ICD-9: 401.9 05/04/2024 Active Type 2 diabetes mellitus without complication, unspecified whether fci insulin use ICD-10: E11.9 ICD-9: 250.00 05/04/2024 Active Advanced care planning - to document end of life discussions Unknown 04/13/2024 Active Diabetes mellitus Type 2 Unknown 04/13/2024 Act floyd Advance care planning SNOMED CT: 9728881 01 ICD-10: Z71.89 ICD-9: V65.49 04/13/2024 Active Atherosclerosis of coronary artery of [place] heart without angina pectoris, unspecified vessel or lesion type SNOMED CT: 473605889 ICD-10: I25.10 ICD-9: 414.01 04/13/2024 Active Atrial fibrillation, unspecified type SNOMED CT: 57185876 ICD-10: I48.91 ICD-9: 427.31 04/13/2024 Active Chronic heart failure with preserved ejection fraction SNOMED CT: 282820462 ICD-10: I50.32 ICD-9: 428.9 04/13/2024 Active Chronic obstructive pulmonary disease, unspecified COPD type SNOMED CT: 84923109 ICD-10: J44.9 ICD-9: 496 04/13/2024 Active Compression fracture of L1 vertebra, sequela SNOMED CT: 561653563 ICD-10: S32.010S ICD-9: 905.1 04/13/2024 Active Dementia in other diseases classified elsewhere, unspecified severity, without behavioral disturbance, psychotic disturbance, mood disturbance, and anxiety ICD-10: F02.80 04/13/[address]: 542481546 ICD-10: K57.90 ICD-9: 562.10 04/13/2024 Active History of breast cancer SNOMED CT: 4290 21046 ICD-10: Z85.3 ICD-9: V10.3 04/13/2024 Active History of melanoma SNOMED CT: 998778005 ICD-10: Z85.820 ICD-9: V10.82 04/13/2024 Active History of TIA (transient ischemic attack) SNOMED CT: 822504943 ICD-10: Z86.73 ICD-9: V12.54 04/13/2024 Active Hyperlipidemia, unspecified hyperlipidemia type SNOMED CT: 01152193 ICD-10: E78.5 ICD-9: 272.4 04/13/2024 Active Iron deficiency anemia, unspecified iron deficiency anemia type SNOMED CT: 48643721 ICD-10: D50.9 ICD-9: 280.9 04/13/2024 Active Mixed Alzheimer and vascular dementia SNOMED CT: 22645492575782 ICD-10: G30.9 ICD-9: 331.0 04/13/2024 Active CAMILO (obstructive sleep apnea) SNOMED CT: 63295692 ICD-10: G47.33 ICD-9: 327.23 04/13/2024 Active Osteopenia, unspecified location SNOMED CT: 673013930 ICD-10: M85.80 ICD-9: 733.90 04/13/2024 Active Statin intolerance SNOMED CT: 001916160 ICD-10: Z78.9 ICD-9: 995.27 04/13/2024 Active Unintentional weight loss SNOMED CT: 448 243682 ICD-10: R63.4 ICD-9: 783.21 04/13/2024 Active Unsteady gait SNOMED CT: 47919164 ICD-10: R26.81 ICD-9: 781.2 04/13/2024 Active Urinary incontinence, unspecified type SNOMED CT: 048913281 ICD-10: R32 ICD-9: 788.30 04/13/2024 Active Vascular dementia, unspecified severity, without behavioral disturbance, psychotic disturbance, mood disturbance, and anxiety ICD-10: F01.50 04/13/2024 Active Venous insufficiency of both lower extremities SNOMED CT: 093501171 ICD-10: I87.2 ICD-9: 459.81 04/13/2024 Active Medications Medication Codes Instructions Start Date Stop Date Status Fill Instructions Lantus Solostar U-100 Insulin 100 unit/mL (3 mL) subcutaneous pen RxNorm: 594924 Unit(s) Subcutaneous prime en with 2 units, then inject 8 units SQ QD at bedtime 05/18/19 25 026 Active potassium chloride ER 10 mEq tablet,extended release RxNorm: 595837 Take 1 Tablet(s) Oral QD 04/12/19 25 No Stop Date Active fluoxetine 10 mg capsule RxNorm: 913074 Take 1 Capsule(s) Oral QD 04/12/19 25 No Stop Date Active hydrochlorothiazide 25 mg tablet RxNorm: 262839 Take 1 Tablet(s) Oral QD 04/12/19 25 No Stop Date Active Oyster Shell Calcium 500 mg (as calcium carbonate 1,250 mg) tablet RxNorm: 182805 Take 1 Tablet(s) Oral QD 04/12/19 25 No Stop Date Active Co Q-10 200 mg capsule RxNorm: 309398 Capsule(s) Oral take 1 cap po daily with 100mg tab to =300mg daily 04/12/19 25 No Stop Date Active Co Q-10 100 mg capsule RxNorm: 221791 Capsule(s) Oral take 1 cap daily along with 200mg tab to =300mg daily 04/12/19 25 No Stop Date Active quetiapine 25 mg tablet RxNorm: 698944 Take 1 Tablet(s) Oral QHS every night at bedtime 04/12/19 25 No Stop Date Active Vitamin D3 25 mcg (1,000 unit) tablet RxNorm: 281982 Take 1 Tablet(s) Oral QD 04/12/19 25 No Stop Date Active acetaminophen 500 mg tablet RxNorm: 047017 Take 2 Tablet(s) Oral TID as needed 04/12/19 25 No Stop Date Active donepezil 10 mg tablet RxNorm: 111662 Take 1 Tablet(s) Oral QHS every night at bedtime 04/12/19 25 No Stop Date Active cyanocobalamin (vit B-12) 500 mcg tablet RxNorm: 247531 Take 1 Tablet(s) Oral QD 04/12/19 25 No Stop Date Active oxybutynin chloride ER 10 mg tablet,extended release 24 hr RxNorm: 241727 Take 1 Tablet(s) Oral QPM every evening 04/12/19 25 No Stop Date Active irbesartan 150 mg tablet RxNorm: 838833 Take 1 Tablet(s) Oral BID 04/12/19 25 No Stop Date Active Trelegy Ellipta 200 mcg-62.5 mcg-25 mcg powder for inhalation RxNorm: 7732052 Inhale 1 Puff(s) Inhalation every 24 hours 04/12/19 25 No Stop Date Active Vitron-C 65 mg iron-125 mg tablet,delayed release RxNorm: 6890716 Take 1 Tablet(s) Oral QOD every other day 04/12/19 25 No Stop Date Active Eliquis 5 mg tablet RxNorm: 1545342 Take 1 Tablet(s) Oral BID 04/12/19 25 025 Inactive Lantus Solostar U-100 Insulin 100 unit/mL (3 mL) subcutaneous pen RxNorm: 837749 Unit(s) Subcutaneous prime en with 2 units, [...] Code Result Date Service Location Urine Culture [id number] URINE CULTURE 02591-2 SEE RESU LTS BELOW 05/23/19 Unknown UA with Microscopic 58040 COLOR Yellow 05/22/19 Unknown UA with Microscopic 79536 Appearance Slightly Cloudy 05/22/19 Unknown UA with Microscopic 44695 GLUCOSE, URINE Negative mg/dL 05/22/19 Unknown UA with Microscopic 15396 BILIRUBIN, URINE Negative 05/22/19 Unknown UA with Microscopic 44565 Ketones Urine Negative mg/dL 05/22/19 Unknown UA with Microscopic 99303 Specific [place] Urine 1.013 05/22/19 Unknown UA with Microscopic 05172 BLOOD, URINE Negative 05/22/19 Unknown UA with Microscopic 93169 pH Urine 6.5 05/22/19 Unknown UA with Microscopic 05477 Protein urine 10 mg/dL 05/22/19 Unknown UA with Microscopic 80669 UROBILINOGEN IRIS Normal mg/dL 05/22/19 Unknown UA with Microscopic 71457 Nitrites Positive 03/14/20 25 Unknown UA with Microscopic 64290 LEUK ESTERASE Large 05/22/19 25 Unknown UA with Microscopic 65887 Bacteria Few /HPF 05/22/19 25 Unknown UA with Microscopic 93377 Mucus Urine Present /LPF 05/22/19 25 Unknown UA with Microscopic 33775 RBC Urine 0 /HPF 05/22/19 25 Unknown UA with Microscopic 62922 SQUAMOUS EPITHELIAL 3 /HPF 05/22/19 25 Unknown UA with Microscopic 18596 WBC Urine 99320-6 24 /HPF 05/22/19 25 Unknown UA with Microscopic 98663 TRANSITIONAL EPI <1 /HPF 05/22/19 Unknown Functional Status Functional / Cognitive Codes [...] Codes Status Date Appointment: Michela Talbot WPtel: [address] [place], [place] [id number] 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 Previously lived independently in [place]. . Has one daughter Maggie who is involved in healthcare. PMH: History of breast cancer and melanoma, mixed dementia, depression, CAD, HLD, history of CVA/TIA, compression fx of L1 vertebrae, urinary incontinence, hearing loss, osteopeniaPrimary contact: Maggie Gallegos (Daughter)Code Status: DNR/SelectLab Schedule: Mar/SepSpecialists: [facility] (Q6M), Cardiology [facility] ([facility] Echo) 06/11/2024
--- OUTSIDE RECORDS SUMMARY | 2024-06-25 02:18 | XMS_ITS | CCD ---
Author Name Linda Vivas Address [address] [facility] [facility] [address] [place] [address] Phone Organization [facility] Phone Care Team Providers Care Concrete Analyst Name Role Phone Teresa Vivas Primary Care Provider Un available Unavailable Chronic Care Management Unavaila ble Summary Purpose DataExchange Insurance Providers Payer name Policy type / Coverage type Covered green party ID Effective Begin Date Effective End Date BCBS of [facility] Medicare Risk [id number] Unknown Un known Family history Mother Diagnosis Age At Onset Stroke Unknown Social History Social History Element Codes Description Effec tive Dates Marital status Unknown 04/13/2024 Marital status Unknown 04/13/2024 Living arrangements Unknown Assisted Living 04/[address]: 7424171 Former smoker 04/[address]: 4465779 Former smoker 04/[address]: 264819011 No Alcohol Consum ption 04/13/[address]: 421122 Currently drin ks alcohol 04/13/2024 Sexually Active? [...] No Inactive Date A ctive SIMVASTATIN RxNorm: 17191 04/13/2024 No Inactive D ate Active Penicillin Unknown 04/13/2024 No Inactive Date A ctive CLOPIDOGREL Unknown 03/23/2024 No Inactive Date Active naproxen RxNorm: 7258 04/13/2024 No Inactive Date Active levofloxacin RxNorm: 51410 03/23/2024 No Inactive Date Active Levemir Unknown 03/23/2024 No Inactive Date Ac tive metformin RxNorm: 177433 04/13/2024 No Inactive Da te Active ESTROGENS Unknown 03/23/2024 No Inactive Date Ac tive Atenolol RxNorm: 1202 04/13/2024 No Inactive Date Active metoprolol succinate RxNorm: 366584 03/23/2024 No Inactive Date Active Januvia RxNorm: 161049 04/13/2024 No Inactive Da te Active furosemide RxNorm: 4603 03/23/2024 No Inactive Balaji e Active azithromycin RxNorm: 81444 04/13/2024 No Inactive Date Active losartan RxNorm: 873063 04/13/2024 No Inactive Da te Active NSAIDS Unknown 03/23/2024 No Inactive Date Ac tive Amlodipine RxNorm: 061071 04/13/2024 No Inactive D ate Active LISINOPRIL RxNorm: 41930 04/13/2024 No Inactive Da te Active PIOGLITAZONE DERIVATIVES Unknown 04/13/2024 No I nactive Date Active Problems Condition Codes Effective Dates Condition 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 ICD-9: 311 05/04/2024 Active Pressure injury of left buttock, stage [address]: 69476166120867 ICD-10: L89.322 ICD-9: 707.05 05/04/2024 Active Primary hypertension ICD-10: I10 ICD-9: 401.9 05/04/2024 Active Type 2 diabetes mellitus without complication, unspecified whether chcf insulin use ICD-10: E11.9 ICD-9: 250.00 05/04/2024 Active Advanced care planning - to document end of life discussions Unknown 04/13/2024 Active Diabetes mellitus Type 2 Unknown 04/13/2024 Act floyd Advance care planning SNOMED CT: 3793636 01 ICD-10: Z71.89 ICD-9: V65.49 04/13/2024 Active Atherosclerosis of coronary artery of [place] heart without angina pectoris, unspecified vessel or lesion type SNOMED CT: 782342359 ICD-10: I25.10 ICD-9: 414.01 04/13/2024 Active Atrial fibrillation, unspecified type SNOMED CT: 43212741 ICD-10: I48.91 ICD-9: 427.31 04/13/2024 Active Chronic heart failure with preserved ejection fraction SNOMED CT: 123549843 ICD-10: I50.32 ICD-9: 428.9 04/13/2024 Active Chronic obstructive pulmonary disease, unspecified COPD type SNOMED CT: 44018998 ICD-10: J44.9 ICD-9: 496 04/13/2024 Active Compression fracture of L1 vertebra, sequela SNOMED CT: 182745282 ICD-10: S32.010S ICD-9: 905.1 04/13/2024 Active Dementia in other diseases classified elsewhere, unspecified severity, without behavioral disturbance, psychotic disturbance, mood disturbance, and anxiety ICD-10: F02.80 04/13/[address]: 821869160 ICD-10: K57.90 ICD-9: 562.10 04/13/2024 Active History of breast cancer SNOMED CT: 4290 55848 ICD-10: Z85.3 ICD-9: V10.3 04/13/2024 Active History of melanoma SNOMED CT: 223642272 ICD-10: Z85.820 ICD-9: V10.82 04/13/2024 Active History of TIA (transient ischemic attack) SNOMED CT: 274013046 ICD-10: Z86.73 ICD-9: V12.54 04/13/2024 Active Hyperlipidemia, unspecified hyperlipidemia type SNOMED CT: 10544035 ICD-10: E78.5 ICD-9: 272.4 04/13/2024 Active Iron deficiency anemia, unspecified iron deficiency anemia type SNOMED CT: 52413438 ICD-10: D50.9 ICD-9: 280.9 04/13/2024 Active Mixed Alzheimer and vascular dementia SNOMED CT: 26805443956524 ICD-10: G30.9 ICD-9: 331.0 04/13/2024 Active CAMILO (obstructive sleep apnea) SNOMED CT: 80309333 ICD-10: G47.33 ICD-9: 327.23 04/13/2024 Active Osteopenia, unspecified location SNOMED CT: 636509575 ICD-10: M85.80 ICD-9: 733.90 04/13/2024 Active Statin intolerance SNOMED CT: 216795087 ICD-10: Z78.9 ICD-9: 995.27 04/13/2024 Active Unintentional weight loss SNOMED CT: 448 763823 ICD-10: R63.4 ICD-9: 783.21 04/13/2024 Active Unsteady gait SNOMED CT: 09328930 ICD-10: R26.81 ICD-9: 781.2 04/13/2024 Active Urinary incontinence, unspecified type SNOMED CT: 052033948 ICD-10: R32 ICD-9: 788.30 04/13/2024 Active Vascular dementia, unspecified severity, without behavioral disturbance, psychotic disturbance, mood disturbance, and anxiety ICD-10: F01.50 04/13/2024 Active Venous insufficiency of both lower extremities SNOMED CT: 913837741 ICD-10: I87.2 ICD-9: 459.81 04/13/2024 Active Medications Medication Codes Instructions Start Date Stop Date Status Fill Instructions Lantus Solostar U-100 Insulin 100 unit/mL (3 mL) subcutaneous pen RxNorm: 309578 Unit(s) Subcutaneous prime en with 2 units, then inject 8 units SQ QD at bedtime 05/18/19 25 026 Active potassium chloride ER 10 mEq tablet,extended release RxNorm: 950502 Take 1 Tablet(s) Oral QD 04/12/19 25 No Stop Date Active fluoxetine 10 mg capsule RxNorm: 553153 Take 1 Capsule(s) Oral QD 04/12/19 25 No Stop Date Active hydrochlorothiazide 25 mg tablet RxNorm: 702891 Take 1 Tablet(s) Oral QD 04/12/19 25 No Stop Date Active Oyster Shell Calcium 500 mg (as calcium carbonate 1,250 mg) tablet RxNorm: 641458 Take 1 Tablet(s) Oral QD 04/12/19 25 No Stop Date Active Co Q-10 200 mg capsule RxNorm: 869128 Capsule(s) Oral take 1 cap po daily with 100mg tab to =300mg daily 04/12/19 25 No Stop Date Active Co Q-10 100 mg capsule RxNorm: 487814 Capsule(s) Oral take 1 cap daily along with 200mg tab to =300mg daily 04/12/19 25 No Stop Date Active quetiapine 25 mg tablet RxNorm: 394777 Take 1 Tablet(s) Oral QHS every night at bedtime 04/12/19 25 No Stop Date Active Vitamin D3 25 mcg (1,000 unit) tablet RxNorm: 781886 Take 1 Tablet(s) Oral QD 04/12/19 25 No Stop Date Active acetaminophen 500 mg tablet RxNorm: 742928 Take 2 Tablet(s) Oral TID as needed 04/12/19 25 No Stop Date Active donepezil 10 mg tablet RxNorm: 916279 Take 1 Tablet(s) Oral QHS every night at bedtime 04/12/19 25 No Stop Date Active cyanocobalamin (vit B-12) 500 mcg tablet RxNorm: 222944 Take 1 Tablet(s) Oral QD 04/12/19 25 No Stop Date Active oxybutynin chloride ER 10 mg tablet,extended release 24 hr RxNorm: 263404 Take 1 Tablet(s) Oral QPM every evening 04/12/19 25 No Stop Date Active irbesartan 150 mg tablet RxNorm: 094114 Take 1 Tablet(s) Oral BID 04/12/19 25 No Stop Date Active Trelegy Ellipta 200 mcg-62.5 mcg-25 mcg powder for inhalation RxNorm: 4236122 Inhale 1 Puff(s) Inhalation every 24 hours 04/12/19 25 No Stop Date Active Vitron-C 65 mg iron-125 mg tablet,delayed release RxNorm: 7544589 Take 1 Tablet(s) Oral QOD every other day 04/12/19 25 No Stop Date Active Eliquis 5 mg tablet RxNorm: 1522639 Take 1 Tablet(s) Oral BID 04/12/19 25 025 Inactive Lantus Solostar U-100 Insulin 100 unit/mL (3 mL) subcutaneous pen RxNorm: 183468 Unit(s) Subcutaneous prime en with 2 units, [...] Code Result Date Service Location Urine Culture [id number] URINE CULTURE 52393-7 SEE RESU LTS BELOW 06/04/19 Unknown UA with Microscopic 45008 COLOR Light Yellow 06/01/19 Unknown UA with Microscopic 38707 Appearance Slightly Cloudy 06/01/19 Unknown UA with Microscopic 33591 GLUCOSE, URINE Negative mg/dL 06/01/19 Unknown UA with Microscopic 70564 BILIRUBIN, URINE Negative 06/01/19 Unknown UA with Microscopic 49021 Ketones Urine Negative mg/dL 06/01/19 Unknown UA with Microscopic 49220 Specific [place] Urine 1.012 06/01/19 Unknown UA with Microscopic 27192 BLOOD, URINE Negative 06/01/19 Unknown UA with Microscopic 80730 pH Urine 6.5 06/01/19 Unknown UA with Microscopic 51312 Protein urine Negative mg/dL 06/01/19 Unknown UA with Microscopic 26032 UROBILINOGEN IRIS Normal mg/dL 06/01/19 Unknown UA with Microscopic 85584 Nitrites Positive 03/24/20 25 Unknown UA with Microscopic 54971 LEUK ESTERASE Trace 06/01/19 25 Unknown UA with Microscopic 19083 Bacteria Few /HPF 06/01/19 25 Unknown UA with Microscopic 21678 WBC CLUMPS 6690-2 Present /HPF 06/01/19 Unknown UA with Microscopic 63831 Mucus Urine Present /LPF 06/01/19 Unknown UA with Microscopic 87806 RBC Urine <1 /HPF 06/01/19 Unknown UA with Microscopic 77162 SQUAMOUS EPITHELIAL 2 /HPF 06/01/19 25 Unknown UA with Microscopic 97717 WBC Urine 24823-9 26 /HPF 06/01/19 Unknown Functional Status Functional [...] Codes Status Date Appointment: Michela Talbot WPtel: [address] [place], [place] [id number] SECURITY DISPATCHER 04/13/2024 Instructions Comment Date Alyx resides at [facility] since about 2021. Previously lived independently in [place]. . Has one daughter Maggie who is involved in healthcare. PMH: History of breast cancer and melanoma, mixed dementia, depression, CAD, HLD, history of CVA/TIA, compression fx of L1 vertebrae, urinary incontinence, hearing loss, osteopeniaPrimary contact: Maggie Gallegos (Daughter)Code Status: DNR/SelectLab Schedule: Mar/SepSpecialists: [facility] (Q6M), Cardiology [facility] (MD Echo) 06/11/2024
--- OUTSIDE RECORDS SUMMARY | 2024-06-25 02:18 | XMS_ITS | CCD ---
Author Name Linda Vivas Address [address] [place] [address] Phone Organization [facility] Phone Care Team Providers Care Metallurgist Process Name Role Phone Teresa Vivas Primary Care Provider Un available Unavailable Chronic Care Management Unavaila ble Summary Purpose DataExchange Insurance Providers Payer name Policy type / Coverage type Covered libertarian ID Effective Begin Date Effective End Date BCBS of [facility] Medicare Risk [id number] Unknown Un known Family history Mother Diagnosis Age At Onset Stroke Unknown Social History Social History Element Codes Description Effec tive Dates Marital status Unknown 04/13/2024 Marital status Unknown 04/13/2024 Living arrangements Unknown Assisted Living 04/[address]: 7034177 Former smoker 04/[address]: 8541899 Former smoker 04/[address]: 023167050 No Alcohol Consum ption 04/13/[address]: 876709 Currently drin ks alcohol 04/13/2024 Sexually Active? [...] No Inactive Date A ctive SIMVASTATIN RxNorm: 55156 04/13/2024 No Inactive D ate Active Penicillin Unknown 04/13/2024 No Inactive Date A ctive CLOPIDOGREL Unknown 03/23/2024 No Inactive Date Active naproxen RxNorm: 7258 04/13/2024 No Inactive Date Active levofloxacin RxNorm: 73059 03/23/2024 No Inactive Date Active Levemir Unknown 03/23/2024 No Inactive Date Ac tive metformin RxNorm: 715098 04/13/2024 No Inactive Da te Active ESTROGENS Unknown 03/23/2024 No Inactive Date Ac tive Atenolol RxNorm: 1202 04/13/2024 No Inactive Date Active metoprolol succinate RxNorm: 441743 03/23/2024 No Inactive Date Active Januvia RxNorm: 572687 04/13/2024 No Inactive Da te Active furosemide RxNorm: 4603 03/23/2024 No Inactive Balaji e Active azithromycin RxNorm: 66572 04/13/2024 No Inactive Date Active losartan RxNorm: 207815 04/13/2024 No Inactive Da te Active NSAIDS Unknown 03/23/2024 No Inactive Date Ac tive Amlodipine RxNorm: 777487 04/13/2024 No Inactive D ate Active LISINOPRIL RxNorm: 77022 04/13/2024 No Inactive Da te Active PIOGLITAZONE DERIVATIVES Unknown 04/13/2024 No I nactive Date Active Problems Condition Codes Effective Dates Condition 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 ICD-9: 311 05/04/2024 Active Pressure injury of left buttock, stage [address]: 62347458928029 ICD-10: L89.322 ICD-9: 707.05 05/04/2024 Active Primary hypertension ICD-10: I10 ICD-9: 401.9 05/04/2024 Active Type 2 diabetes mellitus without complication, unspecified whether alf insulin use ICD-10: E11.9 ICD-9: 250.00 05/04/2024 Active Advanced care planning - to document end of life discussions Unknown 04/13/2024 Active Diabetes mellitus Type 2 Unknown 04/13/2024 Act floyd Advance care planning SNOMED CT: 7353802 01 ICD-10: Z71.89 ICD-9: V65.49 04/13/2024 Active Atherosclerosis of coronary artery of [place] heart without angina pectoris, unspecified vessel or lesion type SNOMED CT: 934156619 ICD-10: I25.10 ICD-9: 414.01 04/13/2024 Active Atrial fibrillation, unspecified type SNOMED CT: 09025232 ICD-10: I48.91 ICD-9: 427.31 04/13/2024 Active Chronic heart failure with preserved ejection fraction SNOMED CT: 579218845 ICD-10: I50.32 ICD-9: 428.9 04/13/2024 Active Chronic obstructive pulmonary disease, unspecified COPD type SNOMED CT: 54750624 ICD-10: J44.9 ICD-9: 496 04/13/2024 Active Compression fracture of L1 vertebra, sequela SNOMED CT: 307524202 ICD-10: S32.010S ICD-9: 905.1 04/13/2024 Active Dementia in other diseases classified elsewhere, unspecified severity, without behavioral disturbance, psychotic disturbance, mood disturbance, and anxiety ICD-10: F02.80 04/13/[address]: 977503575 ICD-10: K57.90 ICD-9: 562.10 04/13/2024 Active History of breast cancer SNOMED CT: 4290 39671 ICD-10: Z85.3 ICD-9: V10.3 04/13/2024 Active History of melanoma SNOMED CT: 407252379 ICD-10: Z85.820 ICD-9: V10.82 04/13/2024 Active History of TIA (transient ischemic attack) SNOMED CT: 810219897 ICD-10: Z86.73 ICD-9: V12.54 04/13/2024 Active Hyperlipidemia, unspecified hyperlipidemia type SNOMED CT: 74354856 ICD-10: E78.5 ICD-9: 272.4 04/13/2024 Active Iron deficiency anemia, unspecified iron deficiency anemia type SNOMED CT: 13703473 ICD-10: D50.9 ICD-9: 280.9 04/13/2024 Active Mixed Alzheimer and vascular dementia SNOMED CT: 95129725088221 ICD-10: G30.9 ICD-9: 331.0 04/13/2024 Active CAMILO (obstructive sleep apnea) SNOMED CT: 90865512 ICD-10: G47.33 ICD-9: 327.23 04/13/2024 Active Osteopenia, unspecified location SNOMED CT: 026866016 ICD-10: M85.80 ICD-9: 733.90 04/13/2024 Active Statin intolerance SNOMED CT: 293934678 ICD-10: Z78.9 ICD-9: 995.27 04/13/2024 Active Unintentional weight loss SNOMED CT: 448 939557 ICD-10: R63.4 ICD-9: 783.21 04/13/2024 Active Unsteady gait SNOMED CT: 68855330 ICD-10: R26.81 ICD-9: 781.2 04/13/2024 Active Urinary incontinence, unspecified type SNOMED CT: 373531965 ICD-10: R32 ICD-9: 788.30 04/13/2024 Active Vascular dementia, unspecified severity, without behavioral disturbance, psychotic disturbance, mood disturbance, and anxiety ICD-10: F01.50 04/13/2024 Active Venous insufficiency of both lower extremities SNOMED CT: 944884937 ICD-10: I87.2 ICD-9: 459.81 04/13/2024 Active Medications Medication Codes Instructions Start Date Stop Date Status Fill Instructions potassium chloride ER 10 mEq tablet,extended release RxNorm: 578335 Take 1 Tablet(s) Oral QD 04/12/19 25 No Stop Date Active fluoxetine 10 mg capsule RxNorm: 752321 Take 1 Capsule(s) Oral QD 04/12/19 25 No Stop Date Active hydrochlorothiazide 25 mg tablet RxNorm: 804953 Take 1 Tablet(s) Oral QD 04/12/19 25 No Stop Date Active Oyster Shell Calcium 500 mg (as calcium carbonate 1,250 mg) tablet RxNorm: 526076 Take 1 Tablet(s) Oral QD 04/12/19 25 No Stop Date Active Co Q-10 200 mg capsule RxNorm: 208056 Capsule(s) Oral take 1 cap po daily with 100mg tab to =300mg daily 04/12/19 25 No Stop Date Active Co Q-10 100 mg capsule RxNorm: 529888 Capsule(s) Oral take 1 cap daily along with 200mg tab to =300mg daily 04/12/19 25 No Stop Date Active quetiapine 25 mg tablet RxNorm: 779309 Take 1 Tablet(s) Oral QHS every night at bedtime 04/12/19 25 No Stop Date Active Vitamin D3 25 mcg (1,000 unit) tablet RxNorm: 644074 Take 1 Tablet(s) Oral QD 04/12/19 25 No Stop Date Active acetaminophen 500 mg tablet RxNorm: 942696 Take 2 Tablet(s) Oral TID as needed 04/12/19 25 No Stop Date Active donepezil 10 mg tablet RxNorm: 409866 Take 1 Tablet(s) Oral QHS every night at bedtime 04/12/19 25 No Stop Date Active cyanocobalamin (vit B-12) 500 mcg tablet RxNorm: 050472 Take 1 Tablet(s) Oral QD 04/12/19 25 No Stop Date Active oxybutynin chloride ER 10 mg tablet,extended release 24 hr RxNorm: 468147 Take 1 Tablet(s) Oral QPM every evening 04/12/19 25 No Stop Date Active irbesartan 150 mg tablet RxNorm: 035295 Take 1 Tablet(s) Oral BID 04/12/19 25 No Stop Date Active Trelegy Ellipta 200 mcg-62.5 mcg-25 mcg powder for inhalation RxNorm: 9527324 Inhale 1 Puff(s) Inhalation every 24 hours 04/12/19 25 No Stop Date Active Vitron-C 65 mg iron-125 mg tablet,delayed release RxNorm: 5393314 Take 1 Tablet(s) Oral QOD every other day 04/12/19 25 No Stop Date Active Eliquis 5 mg tablet RxNorm: 7764415 Take 1 Tablet(s) Oral BID 04/12/19 25 025 Inactive Lantus Solostar U-100 Insulin 100 unit/mL (3 mL) subcutaneous pen RxNorm: 177817 Unit(s) Subcutaneous prime en with 2 units, [...] Tetanus, Diptheria, Pertussis CVX: 09 1.0 1994 Vital Signs Date Vital 05/04/2024 Blood Pressure 1: 154/95 Code: 8480-6 Heart Rate 1: 72 bpm Code: 8867-4 Respiratory Rate: 16 bpm SpO2: 96% Temperature: 36.7 (C) / 98.0 (F) Functional Status Functional / Cognitive Codes [...] Encounter Performer Location Location Address Codes Date ([address]) Home or Residence Visit Est Pt - Moderate Level, 40 mins 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] Diagnosis: Primary hypertension[ICD10 : I10] Diagnosis: Pressure injury of left buttock, stage 2[SNOMED: 94004609249824] Diagnosis: Type 2 diabetes mellitus without complication, unspecified whether remote computer terminal operator insulin use[ICD10: E11.9] Teresa Talbot [facility] [place] [address] CPT-4: 62385 05/04/2024 Plan of Care Planned Activity Notes Codes Status Date Patient Education: Patient Medication Summary Completed 05/04/2024 Patient Education: Influenza Complet ed 05/04/2024 Appointment: Antione Michela martinez WPtel: [phone] RAIL MANAGER 04/13/2024 Instructions Comment Date Alyx resides at [facility] since about 2021. Previously lived independently in [place]. . Has one daughter Maggie who is involved in healthcare. PMH: History of breast cancer and melanoma, mixed dementia, depression, CAD, HLD, history of CVA/TIA, compression fx of L1 vertebrae, urinary incontinence, hearing loss, osteopeniaPrimary contact: Maggie Gallegos (Daughter)Code Status: DNR/SelectLab Schedule: Mar/SepSpecialists: [facility] (Q6M), [facility] (MD Echo) 06/11/2024 Type 2 diabetes mellitus wit hout complication, unspecified whether alf insulin use Sugars reviewed; remain in 80-90s range. Consider decreasing long acting insulin to avoid hypoglycemia given high fall risk. A1c goal < 8%. Depression due to dementia Reports feeling depressed today. She is on fluoxetine daily, low dose. Would recommend changing to escitalopram and titrating to a more therapeutic dose. Pressure injury of left buttock, stage 2 Ordering barrier cream for patient to self administer. Ulcer is small and does not appear infected. Continue to monitor size and depth. Primary hypertension BP 154/95, recheck on exam 160/90. She denies cardiac symptoms. Managed on irbesartan 150mg BID and HCTZ 25mg daily. Continue to monitor f/u next month.. 05/04/2024
--- OUTSIDE RECORDS SUMMARY | 2024-07-03 21:48 | XMS_ITS | CCD ---
Author Name Linda Vivas Address [address] [place] [address] Phone Organization [facility] Phone Care Team Providers Care Assistant Site Manager Name Role Phone Teresa Vivas Primary Care Provider Un available Unavailable Chronic Care Management Unavaila ble Summary Purpose DataExchange Insurance Providers Payer name Policy type / Coverage type Covered democrat ID Effective Begin Date Effective End Date BCBS of [facility] Medicare Risk [id number] Unknown Un known Family history Mother Diagnosis Age At Onset Stroke Unknown Social History Social History Element Codes Description Effec tive Dates Marital status Unknown 04/13/2024 Marital status Unknown 04/13/2024 Living arrangements Unknown Assisted Living 04/[address]: 7669667 Former smoker 04/[address]: 9267113 Former smoker 04/[address]: 816336566 No Alcohol Consum ption 04/13/[address]: 675290 Currently drin ks alcohol 04/13/2024 Sexually Active? [...] No Inactive Date A ctive SIMVASTATIN RxNorm: 94477 04/13/2024 No Inactive D ate Active Penicillin Unknown 04/13/2024 No Inactive Date A ctive CLOPIDOGREL Unknown 03/23/2024 No Inactive Date Active naproxen RxNorm: 7258 04/13/2024 No Inactive Date Active levofloxacin RxNorm: 20870 03/23/2024 No Inactive Date Active Levemir Unknown 03/23/2024 No Inactive Date Ac tive metformin RxNorm: 269524 04/13/2024 No Inactive Da te Active ESTROGENS Unknown 03/23/2024 No Inactive Date Ac tive Atenolol RxNorm: 1202 04/13/2024 No Inactive Date Active metoprolol succinate RxNorm: 920214 03/23/2024 No Inactive Date Active Januvia RxNorm: 760241 04/13/2024 No Inactive Da te Active furosemide RxNorm: 4603 03/23/2024 No Inactive Balaji e Active azithromycin RxNorm: 69010 04/13/2024 No Inactive Date Active losartan RxNorm: 501306 04/13/2024 No Inactive Da te Active NSAIDS Unknown 03/23/2024 No Inactive Date Ac tive Amlodipine RxNorm: 171847 04/13/2024 No Inactive D ate Active LISINOPRIL RxNorm: 95446 04/13/2024 No Inactive Da te Active PIOGLITAZONE [...] complication, unspecified whether terminal manager insulin use ICD-10: E11.9 ICD-9: 250.00 06/29/2024 Active ACP (advance care planning) SNOMED CT: 3 50657897 ICD-10: Z71.89 ICD-9: V65.49 06/01/2024 Active Adult general medical exam SNOMED CT: 30 0612296 ICD-10: Z00.00 ICD-9: V70.9 06/01/2024 Active Atherosclerosis of coronary artery of [place] heart without angina pectoris, unspecified vessel or lesion type ICD-10: I25.10 ICD-9: 414.01 06/01/2024 Active Atrial fibrillation, unspecified type ICD-10: I48.91 ICD-9: 427.31 06/01/2024 Active 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 ICD-9: 311 06/01/[address]: 636579896 ICD-10: R54 ICD-9: 797 06/01/2024 Active Mixed [...] fracture of L1 vertebra, sequela SNOMED CT: 686336066 ICD-10: S32.010S ICD-9: 905.1 04/13/2024 Active Dementia in other diseases classified elsewhere, unspecified severity, without behavioral disturbance, psychotic disturbance, mood disturbance, and anxiety ICD-10: F02.80 04/13/[address]: 954006318 ICD-10: K57.90 ICD-9: 562.10 04/13/2024 Active History of breast cancer SNOMED CT: 4290 56287 ICD-10: Z85.3 ICD-9: V10.3 04/13/2024 Active History of melanoma SNOMED CT: 248832804 ICD-10: Z85.820 ICD-9: V10.82 04/13/2024 Active History of TIA (transient ischemic attack) SNOMED CT: 222698521 ICD-10: Z86.73 ICD-9: V12.54 04/13/2024 Active Hyperlipidemia, unspecified hyperlipidemia type SNOMED CT: 82687047 ICD-10: E78.5 ICD-9: 272.4 04/13/2024 Active Statin intolerance SNOMED CT: 499296046 ICD-10: Z78.9 ICD-9: 995.27 04/13/2024 Active Urinary incontinence, unspecified type SNOMED CT: 869404729 ICD-10: R32 ICD-9: 788.30 04/13/2024 Active Vascular dementia, unspecifi ed severity, without behavioral disturbance, psychotic disturbance, mood disturbance, and anxiety ICD-10: F01.50 04/13/2024 Active Medications Medication Codes Instructions Start Date Stop Date Status Fill Instructions Alejandra Protect (zinc oxide) 12 % topical cream RxNorm: 943230 APPLY TO RIGHT BUTTOCK 2 TIMES DAILY;APPLY TO RIGHT BUTTOCK NEEDED WITH SOILING 06/12/19 25 026 Active albuterol sulfate HFA 90 mcg/actuation aerosol inhaler RxNorm: 6638662 Inhale 2 Puff(s) Inhalation Q4H every four hours as needed 06/01/19 25 No Stop Date Active Alejandra Protect (zinc oxide) 12 % topical cream RxNorm: 829712 cream Topical apply to right buttocks BID and PRN with soiling 06/01/19 25 025 Inactive Lantus Solostar U-100 Insulin 100 unit/mL (3 mL) subcutaneous pen RxNorm: 665842 Unit(s) Subcutaneous prime en with 2 units, then inject 8 units SQ QD at bedtime 05/18/19 25 026 Active potassium chloride ER 10 mEq tablet,extended release RxNorm: 707351 Take 1 Tablet(s) Oral QD 04/12/19 25 No Stop Date Active fluoxetine 10 mg capsule RxNorm: 899564 Take 1 Capsule(s) Oral QD 04/12/19 25 No Stop Date Active hydrochlorothiazide 25 mg tablet RxNorm: 272687 Take 1 Tablet(s) Oral QD 04/12/19 25 No Stop Date Active Oyster Shell Calcium 500 mg (as calcium carbonate 1,250 mg) tablet RxNorm: 172170 Take 1 Tablet(s) Oral QD 04/12/19 25 No Stop Date Active Co Q-10 200 mg capsule RxNorm: 842373 Capsule(s) Oral take 1 cap po daily with 100mg tab to =300mg daily 04/12/19 25 No Stop Date Active Co Q-10 100 mg capsule RxNorm: 046891 Capsule(s) Oral take 1 cap daily along with 200mg tab to =300mg daily 04/12/19 25 No Stop Date Active quetiapine 25 mg tablet RxNorm: 560513 Take 1 Tablet(s) Oral QHS every night at bedtime 04/12/19 25 No Stop Date Active Vitamin D3 25 mcg (1,000 unit) tablet RxNorm: 185267 Take 1 Tablet(s) Oral QD 04/12/19 25 No Stop Date Active acetaminophen 500 mg tablet RxNorm: 592505 Take 2 Tablet(s) Oral TID as needed 04/12/19 25 No Stop Date Active donepezil 10 mg tablet RxNorm: 141703 Take 1 Tablet(s) Oral QHS every night at bedtime 04/12/19 25 No Stop Date Active cyanocobalamin (vit B-12) 500 mcg tablet RxNorm: 284304 Take 1 Tablet(s) Oral QD 04/12/19 25 No Stop Date Active oxybutynin chloride ER 10 mg tablet,extended release 24 hr RxNorm: 400098 Take 1 Tablet(s) Oral QPM every evening 04/12/19 25 No Stop Date Active irbesartan 150 mg tablet RxNorm: 313967 Take 1 Tablet(s) Oral BID 04/12/19 25 No Stop Date Active Trelegy Ellipta 200 mcg-62.5 mcg-25 mcg powder for inhalation RxNorm: 0860067 Inhale 1 Puff(s) Inhalation every 24 hours 04/12/19 25 No Stop Date Active Vitron-C 65 mg iron-125 mg tablet,delayed release RxNorm: 4882831 Take 1 Tablet(s) Oral QOD every other day 04/12/19 25 No Stop Date Active Eliquis 5 mg tablet RxNorm: 7111931 Take 1 Tablet(s) Oral BID 04/12/19 25 025 Inactive Lantus Solostar U-100 Insulin 100 unit/mL (3 mL) subcutaneous pen RxNorm: 201762 Unit(s) Subcutaneous prime en with 2 units, [...] Encounter Performer Location Location Address Codes Date (59999) Home Visit - Est Pt, moderate Diagnosis: Acute cystitis without hematuria[ICD10: N30.00] Diagnosis: Chronic heart failure with preserved ejection fraction[ICD10: I50.32] Diagnosis: Iron deficiency anemia, unspecified iron deficiency anemia type[ICD10: D50.9] Diagnosis: Type 2 diabetes mellitus without complication, unspecified whether senior care insulin use[ICD10: E11.9] Diagnosis: Chronic obstructive pulmonary disease, unspecified COPD type[ICD10: J44.9] Teresa Talbot [facility] [address] [place] [address] CPT-4: 33106 06/29/2024 Plan of Care Planned Activity Notes Codes Status Date Patient Education: Patient Medication Summary Completed 06/29/2024 Patient Education: Influenza Complet ed 06/29/2024 Appointment: Michela Talbot WPtel: [address] [place], [place] [id number] 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 Previously lived independently in [place]. . Has one daughter Maggie who is involved in healthcare. PMH: History of breast cancer and melanoma, mixed dementia, depression, CAD, HLD, history of CVA/TIA, compression fx of L1 vertebrae, urinary incontinence, hearing loss, osteopeniaPrimary contact: Maggiesaleem Gallegos (Daughter)Code Status: DNR/SelectLab Schedule: Mar/SepSpecialists: [facility] (Q6M), Cardiology [facility] (MD Echo) 06/11/2024 Type 2 diabetes mellitus wit hout complication, unspecified whether terminal manager insulin use Sugars reviewed; most [...]
--- OUTSIDE RECORDS SUMMARY | 2024-07-10 17:36 | XMS_ITS | CCD ---
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 Care Burr Picker Name Role Phone Teresa Vivas Primary Care Provider Un available Unavailable Chronic Care Management Unavaila ble Summary Purpose DataExchange Insurance Providers Payer name Policy type / Coverage type Covered republican ID Effective Begin Date Effective End Date [place] Medicare Risk [id number] Unknown Un known Family history Mother Diagnosis Age At Onset Stroke Unknown Social History Social History Element Codes Description Effec tive Dates Marital status Unknown 04/13/2024 Marital status Unknown 04/13/2024 Living arrangements Unknown Assisted Living 04/[address]: 1027398 Former smoker 04/[address]: 5303196 Former smoker 04/[address]: 127295275 No Alcohol Consum ption 04/13/[address]: 684995 Currently drin ks alcohol 04/13/2024 Sexually Active? [...] No Inactive Date A ctive SIMVASTATIN RxNorm: 94747 04/13/2024 No Inactive D ate Active Penicillin Unknown 04/13/2024 No Inactive Date A ctive CLOPIDOGREL Unknown 03/23/2024 No Inactive Date Active naproxen RxNorm: 7258 04/13/2024 No Inactive Date Active levofloxacin RxNorm: 19677 03/23/2024 No Inactive Date Active Levemir Unknown 03/23/2024 No Inactive Date Ac tive metformin RxNorm: 433733 04/13/2024 No Inactive Da te Active ESTROGENS Unknown 03/23/2024 No Inactive Date Ac tive Atenolol RxNorm: 1202 04/13/2024 No Inactive Date Active metoprolol succinate RxNorm: 095138 03/23/2024 No Inactive Date Active Januvia RxNorm: 697586 04/13/2024 No Inactive Da te Active furosemide RxNorm: 4603 03/23/2024 No Inactive Balaji e Active azithromycin RxNorm: 30307 04/13/2024 No Inactive Date Active losartan RxNorm: 156153 04/13/2024 No Inactive Da te Active NSAIDS Unknown 03/23/2024 No Inactive Date Ac tive Amlodipine RxNorm: 525275 04/13/2024 No Inactive D ate Active LISINOPRIL RxNorm: 17287 04/13/2024 No Inactive Da te Active PIOGLITAZONE [...] diabetes mellitus without complication, unspecified whether terminal gauger supervisor insulin use ICD-10: E11.9 ICD-9: 250.00 06/29/2024 Active ACP (advance care planning) SNOMED CT: 3 29756236 ICD-10: Z71.89 ICD-9: V65.49 06/01/2024 Active Adult general medical exam SNOMED CT: 30 0062219 ICD-10: Z00.00 ICD-9: V70.9 06/01/2024 Active Atherosclerosis of coronary artery of [place] heart without angina pectoris, unspecified vessel or lesion type ICD-10: I25.10 ICD-9: 414.01 06/01/2024 Active Atrial fibrillation, unspecified type ICD-10: I48.91 ICD-9: 427.31 06/01/2024 Active 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 ICD-9: 311 06/01/[address]: 808802256 ICD-10: R54 ICD-9: 797 06/01/2024 Active Mixed [...] fracture of L1 vertebra, sequela SNOMED CT: 731390786 ICD-10: S32.010S ICD-9: 905.1 04/13/2024 Active Dementia in other diseases classified elsewhere, unspecified severity, without behavioral disturbance, psychotic disturbance, mood disturbance, and anxiety ICD-10: F02.80 04/13/[address]: 188816324 ICD-10: K57.90 ICD-9: 562.10 04/13/2024 Active History of breast cancer SNOMED CT: 4290 60440 ICD-10: Z85.3 ICD-9: V10.3 04/13/2024 Active History of melanoma SNOMED CT: 834018124 ICD-10: Z85.820 ICD-9: V10.82 04/13/2024 Active History of TIA (transient ischemic attack) SNOMED CT: 023260221 ICD-10: Z86.73 ICD-9: V12.54 04/13/2024 Active Hyperlipidemia, unspecified hyperlipidemia type SNOMED CT: 38857184 ICD-10: E78.5 ICD-9: 272.4 04/13/2024 Active Statin intolerance SNOMED CT: 004962256 ICD-10: Z78.9 ICD-9: 995.27 04/13/2024 Active Urinary incontinence, unspecified type SNOMED CT: 185513032 ICD-10: R32 ICD-9: 788.30 04/13/2024 Active Vascular dementia, unspecifi ed severity, without behavioral disturbance, psychotic disturbance, mood disturbance, and anxiety ICD-10: F01.50 04/13/2024 Active Medications Medication Codes Instructions Start Date Stop Date Status Fill Instructions Oyster Shell Calcium-500 500 mg (as carbonate 1,250 mg) tablet RxNorm: 070659 1 TABLET ORALLY DAILY FOR BONE HEALTH 07/09/19 026 Active PLEASE SEND REFILLS.PHARMA CY PLEASE PROFILE FOR FUTURE USE-MedicalRec ords Vitron-C 65 mg iron-125 mg tablet,delayed release RxNorm: 1916808 1 Tablet(s) Oral QOD every other day 07/09/19 25 026 Active PLEASE SEND REFILLS.PHARMA CY PLEASE PROFILE FOR FUTURE USE-MedicalRec ords Co Q-10 200 mg capsule RxNorm: 825869 1 CAPSULE ORALLY DAILY W/ 100MG CAP FOR A TOTAL DOSE OF 300MG (DX: SUPPLEMENT) 07/09/19 25 026 Active PLEASE SEND REFILLS.PHARMA CY PLEASE PROFILE FOR FUTURE USE-MedicalRec ords oxybutynin chloride ER 10 mg tablet,extended release 24 hr RxNorm: 958403 1 TAB ORALLY EVERY EVENING FOR BLADDER SPASMS 07/09/19 25 04/25/2 026 Active PLEASE SEND REFILLS.PHARMA CY PLEASE PROFILE FOR FUTURE USE-MedicalRec ords Trelegy Ellipta 200 mcg-62.5 mcg-25 mcg powder for inhalation RxNorm: 6306805 INHALE 1 PUFF INTO THE LUNGS EVERY 24 HOURS (DX: CHRONIC OBSTRUCTIVE PULMONARY DISEASE) 07/09/19 Active PLEASE SEND REFILLS.PHARMA CY PLEASE PROFILE FOR FUTURE USE-MedicalRec ords fluoxetine 10 mg capsule RxNorm: 182652 1 CAPSULE ORALLY DAILY (DX: DEPRESSION) (DX: ANXIETY) 07/09/19 25 Active PLEASE SEND REFILLS.PHARMA CY PLEASE PROFILE FOR FUTURE USE-MedicalRec ords cyanocobalamin (vit B-12) 500 mcg tablet RxNorm: 229529 1 TABLET ORALLY DAILY (DX: ANEMIA) 07/09/19 Active PLEASE SEND REFILLS.PHARMA CY PLEASE PROFILE FOR FUTURE USE-MedicalRec ords irbesartan 150 mg tablet RxNorm: 525295 1 TABLET ORALLY 2 TIMES DAILY (DX: HYPERTENSION) 07/09/19 Active PLEASE SEND REFILLS.PHARMA CY PLEASE PROFILE FOR FUTURE USE-MedicalRec ords cholecalciferol (vitamin D3) 25 mcg (1,000 unit) tablet RxNorm: 125124 1 TABLET ORALLY DAILY (DX: VITAMIN D DEFICIENCY) 07/09/19 Active PLEASE SEND REFILLS.PHARMA CY PLEASE PROFILE FOR FUTURE USE-MedicalRec ords quetiapine 25 mg tablet RxNorm: 755288 1 TABLET ORALLY AT BEDTIME (DX: ANXIETY) 07/09/19 Active PLEASE SEND REFILLS.PHARMA CY PLEASE PROFILE FOR FUTURE USE-MedicalRec ords hydrochlorothiazide 25 mg tablet RxNorm: 352391 1 TABLET ORALLY DAILY (DX: HYPERTENSION) 07/09/19 Active PLEASE SEND REFILLS.PHARMA CY PLEASE PROFILE FOR FUTURE USE-MedicalRec ords coenzyme Q10 100 mg capsule RxNorm: 215905 1 CAPSULE ORALLY DAILY W/ 200MG CAP FOR A TOTAL DOSE OF 300MG (DX: SUPPLEMENT) 07/09/19 Active PLEASE SEND REFILLS.PHARMA CY PLEASE PROFILE FOR FUTURE USE-MedicalRec ords donepezil 10 mg tablet RxNorm: 501504 1 TABLET ORALLY AT BEDTIME (DX: DEMENTIA) 07/09/19 25 Active PLEASE SEND REFILLS.PHARMA CY PLEASE PROFILE FOR FUTURE USE-MedicalRec ords Contour Next EZ Meter RxNorm: USE TO JENIFER T BLOOD GLUCOSE DAILY (DX: DIABETES TYPE 2) 07/09/19 25 Active PLEASE SEND REFILLS.PHARMA CY PLEASE PROFILE FOR FUTURE USE-MedicalRec ords alcohol swabs RxNorm: 333458 USE DIRECTED 07/09/19 25 Active PLEASE SEND REFILLS.PHARMA CY PLEASE PROFILE FOR FUTURE USE-MedicalRec ords Alejandra Protect (zinc oxide) 12 % topical cream RxNorm: 733005 APPLY TO RIGHT BUTTOCK 2 TIMES DAILY;APPLY TO RIGHT BUTTOCK NEEDED WITH SOILING 06/12/19 25 Active albuterol sulfate HFA 90 mcg/actuation aerosol inhaler RxNorm: 9097417 Inhale 2 Puff(s) Inhalation Q4H every four hours as needed 06/01/19 No Stop Date Active Alejandra Protect (zinc oxide) 12 % topical cream RxNorm: 783104 cream Topical apply to right buttocks BID and PRN with soiling 06/01/19 Inactive Lantus Solostar U-100 Insulin 100 unit/mL (3 mL) subcutaneous pen RxNorm: 421210 Unit(s) Subcutaneous prime en with 2 units, then inject 8 units SQ QD at bedtime 05/18/19 Active potassium chloride ER 10 mEq tablet,extended release RxNorm: 856262 Take 1 Tablet(s) Oral QD 04/12/19 No Stop Date Active fluoxetine 10 mg capsule RxNorm: 109283 Take 1 Capsule(s) Oral QD 04/12/19 25 025 Inactive hydrochlorothiazide 25 mg tablet RxNorm: 793405 Take 1 Tablet(s) Oral QD 04/12/19 25 025 Inactive Oyster Shell Calcium 500 mg (as calcium carbonate 1,250 mg) tablet RxNorm: 515449 Take 1 Tablet(s) Oral QD 04/12/19 25 025 Inactive Co Q-10 200 mg capsule RxNorm: 245396 Capsule(s) Oral take 1 cap po daily with 100mg tab to =300mg daily 04/12/19 025 Inactive Co Q-10 100 mg capsule RxNorm: 611199 Capsule(s) Oral take 1 cap daily along with 200mg tab to =300mg daily 04/12/19 025 Inactive quetiapine 25 mg tablet RxNorm: 249034 Take 1 Tablet(s) Oral QHS every night at bedtime 04/12/19 025 Inactive Vitamin D3 25 mcg (1,000 unit) tablet RxNorm: 204268 Take 1 Tablet(s) Oral QD 04/12/19 025 Inactive acetaminophen 500 mg tablet RxNorm: 782962 Take 2 Tablet(s) Oral TID as needed 04/12/19 No Stop Date Active donepezil 10 mg tablet RxNorm: 494707 Take 1 Tablet(s) Oral QHS every night at bedtime 04/12/19 025 Inactive cyanocobalamin (vit B-12) 500 mcg tablet RxNorm: 940636 Take 1 Tablet(s) Oral QD 04/12/19 025 Inactive oxybutynin chloride ER 10 mg tablet,extended release 24 hr RxNorm: 086344 Take 1 Tablet(s) Oral QPM every evening 04/12/19 025 Inactive irbesartan 150 mg tablet RxNorm: 660757 Take 1 Tablet(s) Oral BID 04/12/19 025 Inactive Trelegy Ellipta 200 mcg-62.5 mcg-25 mcg powder for inhalation RxNorm: 3873136 Inhale 1 Puff(s) Inhalation every 24 hours 04/12/19 025 Inactive Vitron-C 65 mg iron-125 mg tablet,delayed release RxNorm: 1648271 Take 1 Tablet(s) Oral QOD every other day 04/12/19 025 Inactive Eliquis 5 mg tablet RxNorm: 8671834 Take 1 Tablet(s) Oral BID 04/12/19 25 025 Inactive Lantus Solostar U-100 Insulin 100 unit/mL (3 mL) subcutaneous pen RxNorm: 771839 Unit(s) Subcutaneous prime en with 2 units, [...] data Instructions Comment Date Alyx resides at [facility] since about 2021. Previously lived independently in [place]. . Has one daughter Maggie who is involved in healthcare. PMH: History of breast cancer and melanoma, mixed dementia, depression, CAD, HLD, history of CVA/TIA, compression fx of L1 vertebrae, urinary incontinence, hearing loss, osteopeniaPrimary contact: Maggie Gallegos (Daughter)Code Status: DNR/SelectLab Schedule: Mar/SepSpecialists: [facility] (Q6M), Cardiology [facility] (MD Echo) 06/11/2024
[2024-09-04] VITALS (29 sets, daily range): BP systolic 115–178; BP diastolic 68–110; PULSE 60–97; RESP 16–24; TEMP 36.4–37; O2SAT 81–98; BMI 28.2; BMI 30.7
--- OUTSIDE RECORDS SUMMARY | 2024-09-04 06:24 | XMS_ITS | Encounter Summary ---
Author Organization [facility] Address [address] [facility] [place] [address] Care Team Providers Care Consumer Affairs Specialist Name Role Phone Darien Sanchez Primary Care Provider [phone] Zahira Feldman MD Unavailable + Yumiko Sim MD Unavailable Kathy Bueno DO Unavailable [phone] Dixon Panchal MD Primary Care Provider Dixon Panchal MD Unavailable [facility] Unavailable Albertina Hartman APRN [facility] Unavailable [phone] Darlene Mendoza MD Primary Care Provider [phone] Eleanor Macedo PA-C Unavailable [phone] Encounter Details Date Type Department Care Team (Late st Contact Info) Description 07/26/2019 [facility] Only [facility] [address] [place] [address] Billie Martinez MD [address] 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 Gender Identity Not on file Sexual Orientation [...] abnormality documented in this encounter Care Teams Consumer Affairs Specialist Relationship Specialty Start Date End Date Darien Sanchez [address] [address] PCP - General Family Practice 03/31/17 02/01/22 Dixon Panchal MD [address] [place] [address] PCP - General Internal Medicine 02/02/22 07/18/22 Darlene Mendoza MD [facility] [address] [place] [address] PCP - General Family Medicine 07/19/22 Zahira Feldman MD [address] [place] [address] MD Ophthalmology 10/13/17 Yumiko Sim MD [address] [place] [address] Assigned PCP 07/08/19 02/08/22 Kathy Bueno DO [address] [place] [place] [address] Assigned Heart and Vascular Provider 12/31/19 04/07/21 Dixon Panchal MD [address] [place] [address] Assigned PCP 02/09/22 05/29/24 [facility] [id number] [place] [phone] 07/17/22 Albertina Hartman APRN PILE DRIVER OPERATOR [address] [place] [address] Nurse Practitioner Geriatric Medicine 07/17/22 08/25/22 Eleanor Macedo PA-C [facility] [address] [address] Assigned Neuroscience Provider 08/31/22 02/29/24 Krysta Bhatti- [facility] 07/15/22 documented as of this encounter
--- OUTSIDE RECORDS SUMMARY | 2024-09-04 06:25 | XMS_ITS | Clinical Summary ---
Author Organization [facility] Address [address] [place] [address] Care Team Providers Care Soil Chemist Name Role Phone Darien Sanchez MD Primary Care Provider [phone] Source Comments You are receiving this document [...] for each transition of care or referral. [facility] Allerg[facility] Active Allergy Reactions Criticality Noted Date [...] (10/30/2016): LW Modifier: R thalamus LW Onset: [id number] ; Lacunar Infarct Obesity 04/27/2010 Morbid obesity [...] 36.9 C (98.4 F) 04/16/2011 3:42 PM MILANESE KNITTING MACHINE OPERATOR Respiratory Rate 22 06/23/2012 8:49 PM CDT Oxygen Saturation 100% 03/10/2008 8:00 AM MILANESE KNITTING MACHINE OPERATOR Inhaled Oxygen Concentration - - Weight 130.2 kg (287 lb) 06/23/2012 8:49 PM CDT Height 171.5 cm (5' 7.5) 06/23/2012 8:49 PM CDT Body Mass Index 44.29 06/23/2012 8:49 PM CDT Plan of Treatment Health Maintenance Due Date Last Done Comments Diabetes: Eye Exam 1935 Diabetes: Foot Exam 1935 Dexa 01/16/2001 HepA Vaccine (2 of 2 - Risk 2-dose series) 09/14/2003 03/16/2003 DTaP/Tdap/Td Vaccine (1 - Tdap) 03/08/2008 03/07/2008, 03/16/2003, 01/15/1995 RSV Vaccine (1 - 1-dose 75+ series) 01/16/2011 Diabetes: HGBA1C 08/27/2011 02/25/2011, , 06/21/2009, Additional history exists Diabetes: Creatinine 04/03/2012 04/03/2011, 02/26/2010, 06/21/2009, Additional history exists Diabetes: Lipid Panel 02/26/2016 02/25/2011, 010 COVID-19 Vaccine ( season) 2023 12/07/2020, 05/06/2020, 04/15/2020 Medicare Annual Wellness Visit 03/10/2024 Influenza Vaccine (Season Ended) 2024 03/09/2021, 11/02/2019, [...] this topic Medical Devices Implanted Type Area Manager Of Learning Device Identifier Shelf Expiration Date Model / Serial / Lot Scr Roberta Sftp 3.5/2.7hx16 - [id number] Implanted:Qty: 4 on 03/07/2008 at [facility] DEVICE Right: [employer] 2348-016-35 / / Scr Omero Sftp 2.7x16 - [id number] Implanted:Qty: 1 on 03/07/2008 at [facility] DEVICE Right: [employer] [id number] / / Plt Fib Dist Lk Rt 158mm 10h - [id number] Implanted:Qty: 1 on 03/07/2008 at [facility] DEVICE Right: [employer] [id number] / / Scr Lk 2.7x10mm - [id number] Implanted:Qty: 1 on 03/07/2008 at [facility] DEVICE Right: [employer] [id number] / / Scr Lk 2.7x12mm - [id number] Implanted:Qty: 1 on 03/07/2008 at [facility] DEVICE Right: [employer] [id number] / / Scr Lk 2.7x14mm - [id number] Implanted:Qty: 2 on 03/07/2008 at [facility] DEVICE Right: [employer] [id number] / / Scr Lk 2.7x16 - [id number] Implanted:Qty: 2 on 03/07/2008 at [facility] DEVICE Right: [employer] [id number] / / Procedures Procedure Name Priority Date/Time Associated Diagnosis Comments CREATININE / GFR Routine 04/03/2011 12:1 7 PM MILANESE KNITTING MACHINE OPERATOR Essential hypertension LIPID PANEL & DIRECT LDL (IF NEEDED) Routine 02/25/2011 12:01 PM MILANESE KNITTING MACHINE OPERATOR Type II or unspecified type diabetes mellitus without mention of complication, not stated as uncontrolled (HRC) HGB A1C Routine 02/25/2011 12:01 PM MILANESE KNITTING MACHINE OPERATOR Type II or unspecified type diabetes mellitus without mention of complication, not stated as uncontrolled (HRC) from Last 3 Months or Most Recently Relevant to Health Maintenance Results * Creatinine / GFR (04/03/2011 12:17 PM MILANESE KNITTING MACHINE OPERATOR) Creatinine Serum 0.9 0.4 - 1.3 mg/dL HP CONVERSION Est GFR Am >60 >60 mL/min/1.7 3m2 HP CONVERSION Est GFR Non-Afr Am >60 >60 mL/min/1.7 3m2 HP CONVERSION Comment: Normal>60, moderate decrease 30 - 59, severe decrease 15 - 29, renal failure <15 mL/min/1.73 m2 NOTE: Choose the eGFR result above appropriate for the race of the patient. 04/03/2011 12:1 7 PM MILANESE KNITTING MACHINE OPERATOR 04/03/2011 12:17 PM MILANESE KNITTING MACHINE OPERATOR Narrative HP CONVERSION - 04/03/2011 3:29 PM MILANESE KNITTING MACHINE OPERATOR Performed at [facility], [address] [place] [address] us Jeffrey Duke MD LAB_1 Final Resul t Performing Organization Address [facility] de Phone Number HP CONVERSION * (ABNORMAL) Lipid Panel and Direct LDL(If Needed) (02/25/2011 12:01 PM MILANESE KNITTING MACHINE OPERATOR) Cholesterol 169 0 - 200 mg/dL HP CONVERSION Triglycerides 158(H) 0 - 149 mg/dL HP CONVERSION HDL Cholesterol 47 >39 mg/dL HP CONVERSION Cholesterol/HDL Ratio Screen 3.6 HP CONVERSION LDL Calculated 90 19 - 130 mg/dL HP CONVERSION Hours Fasting 12.0 HP CONVERSION 02/25/2011 12:0 1 PM MILANESE KNITTING MACHINE OPERATOR 02/25/2011 12:00 PM MILANESE KNITTING MACHINE OPERATOR Narrative HP CONVERSION - 02/25/2011 3:30 PM MILANESE KNITTING MACHINE OPERATOR Performed at [facility], [address] [place] [address] Transcriptions 04/19/2016 9:42 PM CSTNotes Recorded by Jeffrey Duke MD on 02/25/2011 at 5:08 PMWait for all results to be available to send a single lab letter explaining results. us Jeffrey Duke MD LAB_1 Final Resul t Performing Organization Address [facility] de Phone Number HP CONVERSION * (ABNORMAL) Hgb A1c (02/25/2011 12:01 PM MILANESE KNITTING MACHINE OPERATOR) HGB A1C 7.3(H) 0.0 - 6.0 % HP CONVERSION 02/25/2011 12:0 1 PM MILANESE KNITTING MACHINE OPERATOR 02/25/2011 2:44 PM MILANESE KNITTING MACHINE OPERATOR Jeffrey Duke MD LAB_1 Final Resul t Performing Organization Address [facility] Co de Phone Number HP CONVERSION from Last 3 Months or Most Recently Relevant to Health Maintenance Insurance [facility] MEDICARE ADVANTAGE Advance Directives Documents on File Type Date Recorded Patient Record Tabulating Clerk Expl anation Advance Directive/Living Will/Durable Power of Attny on file/POLST PN * Full Code (Latest Code Status on File) Date Activated Date Inactivated Comments 03/07/2008 3:28 PM 03/10/2008 3:05 PM Care Teams Soil Chemist Relationship Specialty Start Date End Date Darien Sanchez MD [address] [place] [address] PCP - General 02/07/12
--- OUTSIDE RECORDS SUMMARY | 2024-09-04 06:25 | XMS_ITS ---
Author Organization [facility] Care Team Providers Care Double Cut Sawyer Name Role Phone Nisreen Owen Unavailable Unavailable Cata Green Unavailable Unavailable Raymundo Crawford Unavailable Unavailable Allergies and adverse reactions Code CodeSystem Substance Reaction Severity StartDate Concern Status 751761 RXNORM SITagliptin Visual impairment (code- 132014885, SNOMED CT) Severe Unknown active 97406 RXNORM Simvastatin Fatigue (code- 53252908, SNOMED CT) Unknown Unknown active 07611 RXNORM Pioglitazone Pain of hip region (code- 52109277, SNOMED CT); Pain in upper limb (code- 519615344, SNOMED CT) Severe Unknown active 7992 RXNORM Penicillin V Unknown Unknown active [id number] SNOMED CT NSAIDs Unknown Unknown active 7258 RXNORM Naproxen Unknown Unknown active 7418 RXNORM Metoprolol Dyspnea (code- 665449075, SNOMED CT); Chest pain (code- 98896012, SNOMED CT) Severe Unknown active 6809 RXNORM metFORMIN Unknown Unknown active 39299 RXNORM Losartan Dyspnea (code- 312723369, SNOMED CT); Palpitations (code- 15065059, SNOMED CT) Unknown Unknown active 62946 RXNORM Lisinopril Headache (code- 88119512, SNOMED CT); Palpitations (code- 70408214, SNOMED CT); Muscle pain (code- 51051387, SNOMED CT) Severe Unknown active 74506 RXNORM levoFLOXacin Contusion (code- 170331853, SNOMED CT) Mild Unknown active 713590 RXNORM Insulin Detemir Unknown Unknown active 4603 RXNORM Furosemide Urticaria (code- 946917174, SNOMED CT) Severe Unknown active 42771 RXNORM Exenatide Diarrhea (code- 44866544, SNOMED CT); Cough (code- 50200546, SNOMED CT); Headache (code- 13327844, SNOMED CT); Sore throat (code- 242044560, SNOMED CT) Moderate Unknown active 68461 RXNORM Clopidogrel Edema (code- 361915325, SNOMED CT) Mild Unknown active 33615 RXNORM Carvedilol Vomiting (code- 537675299, SNOMED CT) Mild Unknown active 02637 RXNORM Azithromycin Diarrhea (code- 77825904, SNOMED CT); Pain in limb (code- 26856490, SNOMED CT) Severe Unknown active 50648 RXNORM amLODIPine Eruption (code- 970826250, SNOMED CT) Severe Unknown active Care Team Name Role Address Phone Organization Dates Raymundo Crawford [facility] [address] [place] [address], [address], [place], [place], [facility], [facility] (Office): [facility] 07/13/2024 - 08/05/2024 Nisreen Owen [facility], [facility] 07/13/2024 - 08/05/2024 Cata Green [facility] [address], [place], [facility], [facility] (Office): : [facility] 07/13/2024 - 08/05/2024 Goals Section Description Status Target Date I feel supported and safe du ring my stay. I am treated as a whole person, not just a patient recovering physically, and I feel heard and respected. Active 10/24/2024 I will allow staff to utiliz e enanced barrier precautions Active 10/24/2024 I will attend/participate in activities of choice 1-2 times weekly by next review date. Active 10/24/2024 I will be able to communicat e required assistance post-discharge and the services required to meet needs before discharge. Active 10/24/2024 I will be free of episodes o f emotional outbursts/rejection of care throughout my stay at [facility]. Active 10/24/2024 I will be free of episodes/v erbalizations of fretful worrying throughout my stay at [facility]. Active 10/24/2024 I will be free of falls through the review date. Active 10/24/2024 I will continue to be alert and oriented x 3 Active 10/24/2024 I will continue to verbalize my needs to staff Active 10/24/2024 I will have no more than mil d pain throughout my stay at [facility]. Active 10/24/2024 I will have optimal receptio n of verbal communication Active 10/24/2024 I will improve current level of function in ambulation through the review date. I will be able to ambulate with no more than limited assistance. Active 10/24/2024 I will not sustain any new s kin integrity impairment during my stay at [facility]. Active 10/24/2024 I will only be occasionally incontinent of bladder during the next review period. Active 10/24/2024 I will remain continent of bowel through the nex t review date. Active 10/24/2024 I will remain free of abuse, neglect, or financial exploitation Active 10/24/2024 My buttocks pressure ulcers (present on admission) will resolve prior to discharge. Active 10/24/2024 My financial needs will be m et Active 10/24/2024 My physical needs will be me t Active 10/24/2024 Resident Intake of Nutrients Will Meet Metabolic Needs encourage to eat at least 75% of 2 meals taken Active 10/24/2024 Functional Status Code Name Recorded Time Value Entered By 1 step (curb) 07/13/2024 Not assessed Donovann.[email or web address] 12 steps 07/13/2024 Not assessed Donovann.Peralt [email or web address] 4 steps 07/13/2024 Not assessed Donovann.Peralt [email or web address] Ambulation 07/13/2024 Not assessed Donovann.Peralt [email or web address] Ambulation 07/13/2024 Not assessed Donovann.Peralt [email or web address] Car transfer 07/13/2024 Not assessed Donovann.Peralt [email or web address] Chair/ntx-yj-xvhxm transfer 08/05/2024 Substantial/maximal assistance VISHAL.[email or web address] Does the resident use a wheelchair and/or scooter? 08/05/2024 Yes (qualifier value) VISHAL.RUDDY [email or web address] Dressing 07/13/2024 Extensive Assistance Juan Antonio [email or web address] Eating 08/05/2024 Setup or clean-u p assistance VISHAL.[email or web address] Feeding or Eating 08/05/2024 Independent VISHAL.NAZANIN [email or web address] Indicate the type of wheelchair or scooter used 08/05/2024 Independent VISHAL.DEVANTE [email or web address] Indicate the type of wheelchair or scooter used 08/05/2024 Manual wheelchair (physical object) VISHAL.[email or web address] Lower body dressing 08/05/2024 Substantial/ maximal assistance VISHAL.[email or web address] Lying to sitting on side of bed 08/05/2024 Independent VISHAL.[email or web address] Oral hygiene 08/05/2024 Setup or clean-u p assistance VISHAL.[email or web address] Personal hygiene 08/05/2024 Substantial/max imal assistance [email or web address] Picking up object 08/05/2024 Dependent VISHAL.NAZANIN [email or web address] Putting on/taking off footwear 08/05/2024 Dependent VISHAL.[email or web address] Roll left and right 08/05/2024 Independent VISHAL.Nathan [email or web address] Shower/bathe self 08/05/2024 Not assessed VISHAL.NAZANIN [email or web address] Sit to lying 08/05/2024 Independent VISHAL.RODRIGUEZ [email or web address] Sit to stand 08/05/2024 Substantial/maxi mal assistance VISHAL.[email or web address] Toilet transfer 08/05/2024 Substantial/maxi mal assistance VISHAL.[email or web address] Toileting 08/05/2024 Extensive Assistance VISHAL. [email or web address] Toileting hygiene 08/05/2024 Dependent VISHAL.NAZANIN [email or web address] Transferring 08/05/2024 Extensive Assistance VISHAL. [email or web address]@[email or web address] Upper body dressing 08/05/2024 Substantial/ maximal assistance VISHAL.[email or web address] Walk 10 feet 08/05/2024 Not assessed VISHAL.RODRIGUEZ [email or web address]@[email or web address] Walk 150 feet 08/05/2024 Not assessed VISHAL.MARQUIS [email or web address] Walk 50 feet 08/05/2024 Not assessed VISHAL.RODRIGUEZ [email or web address]@[email or web address] Walking 10 feet on uneven surfaces 08/05/2024 Not assessed VISHAL.[email or web address] Wheel 150 feet 08/05/2024 Dependent VISHAL.DEVANTE [email or web address] Wheel 50 feet with two turns 08/05/2024 Dependent VISHAL.[email or web address] Immunizations Immunization Status Vaccine Details Vaccine Code CodeSystem Date Notes Influenza completed Influenza, high-dose, split virus, quadrivalent, injectable, preservative free 197 CVX created date: 07/13/2024 administere d date: 11/20/2023 Prevnar 13 completed pneumococcal conjugate vaccine, 13 valent 133 CVX created date: 07/13/2024 administere d date: 05/19/2014 COVID-19 Moderna Booster completed SARS-COV-2 (COVID-19) vaccine, mRNA, spike protein, LNP, preservative free, 100 mcg/0.5mL dose or 50 mcg/0.25mL dose Mfg: MODERNA 207 CVX created date: 07/13/2024 administere d date: 12/31/2022 Shingles (recombinant) completed zoster vaccine recombinant 187 CVX created date: 07/13/2024 administere d date: 10/11/2019 Shingles (recombinant) completed zoster vaccine recombinant 187 CVX created date: 07/13/2024 administere d date: 12/25/2018 Pneumococcal PPSV23 completed pneumococcal polysaccharide vaccine, 23 valent 33 CVX created date: 07/13/2024 administere d date: 10/23/2016 Pneumococcal PPSV23 completed pneumococcal polysaccharide vaccine, 23 valent 33 CVX created date: 07/13/2024 administere d date: 03/10/2001 Pneumococcal PPSV23 completed pneumococcal polysaccharide vaccine, 23 valent 33 CVX created date: 07/13/2024 administere d date: 09/19/1997 Hepatitis A completed hepatitis A vaccine, adult dosage 52 CVX created date: 07/13/2024 administere d date: 03/16/2003 Tdap (Tetanus Diphtheria Pertussis) completed tetanus toxoid, reduced diphtheria toxoid, and acellular pertussis vaccine, adsorbed 115 CVX created date: 07/13/2024 administere d date: 10/28/2018 Tdap (Tetanus Diphtheria Pertussis) completed tetanus toxoid, reduced diphtheria toxoid, and acellular pertussis vaccine, adsorbed 115 CVX created date: 07/13/2024 administere d date: 02/16/2008 Tdap (Tetanus Diphtheria Pertussis) completed tetanus toxoid, reduced diphtheria toxoid, and acellular pertussis vaccine, adsorbed 115 CVX created date: 07/13/2024 administere d date: 03/16/2003 Tdap (Tetanus Diphtheria Pertussis) completed tetanus toxoid, reduced diphtheria toxoid, and acellular pertussis vaccine, adsorbed 115 CVX created date: 07/13/2024 administere d date: 01/15/1995 Medications Section Medication Name Status Code CodeSystem Dose Route Frequency Admin Type Sig Text Start Date End Date Acetaminophen Oral Tablet 500 MG aborted RXNORM 1000 mg Oral as needed PRN Give 1000 mg by mouth every 4 hours as needed for pain relate d to PAIN IN LEFT WRIST (M25.5 32) 1,000m g every 4-6 hours PRN; not to exceed 3000mg per day 08/06 Potassium Chloride ER Oral Tablet Extended Release 10 MEQ aborted 047894 RXNORM 1 tablet Oral one time a day Routine Give 1 tablet by mouth one time a day relate d to OTHER SPECIF IED HEALTH STATUS (Z78.9 ) 08/06 Vitamin D3 Oral Capsule 25 MCG aborted 1 capsul e Oral one time a day Routine Give 1 capsul e by mouth one time a day relate d to OTHER SPECIF IED HEALTH STATUS (Z78.9 ) 08/06 Coenzyme Q10 Oral Capsule aborted 300 mg Oral one time a day Routine Give 300 mg by mouth one time a day relate d to ATHERO SCLERO TIC HEART DISEAS E OF [place] 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 (I25.1 0) 08/06 Insulin Glargine Solostar Subcutaneous Solution Pen-injector 100 UNIT/ML aborted 10 unit Subcuta neous at bedtime Routine Inject 10 unit subcut aneous ly at bedtim e relate d to TYPE 2 DIABET ES MELLIT US WITHOU T COMPLI CATION S (E11.9 ) 07/19 Doxycycline Hyclate Oral Tablet 100 MG complete d 799509 3 RXNORM 1 tablet Oral two times a day Routine Give 1 tablet by mouth two times a day relate d to PNEUMO MYNOR, UNSPEC IFIED ORGANI SM (J18.9 ) for 7 Days 07/20 hydroCHLOROth iazide Oral Tablet 25 MG aborted 584853 RXNORM 1 tablet Oral in the morning Routine Give 1 tablet by mouth in the mornin g relate d to ESSENT IAL (PRIMA RY) HYPERT ENSION (I10) 08/04 Irbesartan Oral Tablet 150 MG aborted 101474 RXNORM 1 tablet Oral two times a day Routine Give 1 tablet by mouth two times a day relate d to ESSENT IAL (PRIMA RY) HYPERT ENSION (I10) 08/06 Oxybutynin Chloride ER Tablet Extended Release 24 Hour 10 MG aborted 532899 RXNORM 1 tablet Oral one time a day Routine Give 1 tablet by mouth one time a day for Overac tive Bladde r 08/06 Calcium Carbonate Oral Tablet Chewable 500 MG aborted 912397 RXNORM 1 tablet Oral one time a day Routine Give 1 tablet by mouth one time a day relate d to OTHER SPECIF IED HEALTH STATUS (Z78.9 ) 08/06 Donepezil HCl Oral Tablet 10 MG aborted 464869 RXNORM 1 tablet Oral one time a day Routine Give 1 tablet by mouth one time a day relate d to UNSPEC IFIED BEENA IA, UNSPEC IFIED SEVERI TY, WITHOU T BEHAVI ORAL DISTUR BANCE, PSYCHO TIC DISTUR BANCE, MOOD DISTUR BANCE, AND ANXIET Y (F03.9 0) 08/06 QUEtiapine Fumarate Oral Tablet 25 MG aborted 501945 RXNORM 25 mg Oral at bedtime Routine Give 25 mg by mouth at bedtim e relate d to UNSPEC IFIED BEENA IA, UNSPEC IFIED SEVERI TY, WITHOU T BEHAVI ORAL DISTUR BANCE, PSYCHO TIC DISTUR BANCE, MOOD DISTUR BANCE, AND ANXIET Y (F03.9 0) 08/06 Trelegy Ellipta Inhalation Aerosol Powder Breath Activated 200-62.5-25 MCG/ACT aborted 723129 1 RXNORM 1 inhala tion Inhalat ion in the morning Routine 1 inhala tion inhale orally in the mornin g relate d to CHRONI C OBSTRU CTIVE PULMON KALIA DISEAS E, UNSPEC IFIED (J44.9 ) 08/06 Carvedilol Oral Tablet 6.25 MG aborted 19990509 RXNORM 1 tablet Oral two times a day Routine Give 1 tablet by mouth two times a day relate d to UNSPEC IFIED DIASTO LIC (CONGE STIVE) HEART FAILUR E (I50.3 0) 08/06 FLUoxetine HCl Oral Tablet 10 MG aborted 298053 RXNORM 1 tablet Oral one time a day Routine Give 1 tablet by mouth one time a day relate d to DEPRES DOUGIE, UNSPEC IFIED (F32.A ) 08/06 Albuterol Sulfate Inhalation Aerosol Powder Breath Activated 108 (90 Base) MCG/ACT aborted 703658 0 RXNORM 2 puff Inhalat ion as needed PRN 2 puff inhale orally every 4 hours as needed for Diffic ulty Breath ing relate d to CHRONI C OBSTRU CTIVE PULMON KALIA DISEAS E, UNSPEC IFIED (J44.9 ) 08/06 Ipratropium-A lbuterol Solution 0.5-2.5 (3) MG/3ML aborted 225747 2 RXNORM 1 vial Inhalat ion two times a day Routine 1 vial inhale orally two times a day for COPD for 3 Days AND 1 vial inhale orally in the mornin g for COPD for 3 Days 07/21 653506 2 RXNORM 1 vial Inhalat ion in the morning Routine 1 vial inhale orally two times a day for COPD for 3 Days AND 1 vial inhale orally in the mornin g for COPD for 3 Days 07/21 Insulin Glargine Subcutaneous Solution Pen-injector 100 UNIT/ML aborted 932685 RXNORM 14 unit Subcuta neous in the morning Routine Inject 14 unit subcut aneous ly in the mornin g relate d to TYPE 2 DIABET ES MELLIT WITHOU T COMPLI CATION S (E11.9 ) 08/06 Insulin Glargine Solostar Subcutaneous Solution Pen-injector 100 UNIT/ML complete d 6 unit Subcuta neous at bedtime Routine Inject 6 unit subcut aneous ly at bedtim e relate d to TYPE 2 DIABET ES MELLIT US WITHOU T COMPLI CATION S (E11.9 ) until 2024 23:59 07/20 Ipratropium-A lbuterol Solution 0.5-2.5 (3) MG/3ML aborted 910459 2 RXNORM 1 vial Inhalat ion three times a day Routine 1 vial inhale orally three times a day for COPD for 3 Days 07/21 Albuterol Sulfate Inhalation Nebulization Solution (2.5 MG/3ML) 0.083% complete d 122924 RXNORM 1 vial Inhalat ion three times a day Routine 1 vial inhale orally via nebuli zer three times a day relate d to PNEUMO MYNOR, UNSPEC IFIED ORGANI SM (J18.9 ) until 2024 06:59 AND 1 vial inhale orally via nebuli zer two times a day relate d to PNEUMO MYNOR, UNSPEC IFIED ORGANI SM (J18.9 ) until 2024 06:59 AND 1 vial inhale orally via nebuli zer in the mornin g relate d to PNEUMO MYNOR, UNSPEC IFIED ORGANI SM (J18.9 ) until 2024 05:59 07/23 865494 RXNORM 1 vial Inhalat ion two times a day Routine 1 vial inhale orally via nebuli zer three times a day relate d to PNEUMO MYNOR, UNSPEC IFIED ORGANI SM (J18.9 ) until 2024 06:59 AND 1 vial inhale orally via nebuli zer two times a day relate d to PNEUMO MYNOR, UNSPEC IFIED ORGANI SM (J18.9 ) until 2024 06:59 AND 1 vial inhale [facility] relate d to PNEUMO MYNOR, UNSPEC IFIED ORGANI SM (J18.9 ) until 2024 05:59 07/26 031033 RXNORM 1 vial Inhalat ion in the morning Routine 1 vial inhale orally via nebuli zer three times a day relate d to PNEUMO MYNRO, UNSPEC IFIED ORGANI SM (J18.9 ) until 2024 06:59 AND 1 vial inhale orally via nebuli zer two times a day relate d to PNEUMO MYNOR, UNSPEC IFIED ORGANI SM (J18.9 ) until 2024 06:59 AND 1 vial inhale orally via nebuli zer in the mornin g relate d to PNEUMO MYNOR, UNSPEC IFIED ORGANI SM (J18.9 ) until 2024 05:59 07/29 Nystatin External Powder 663162 UNIT/GM aborted 496407 RXNORM n/a n/a Topical two times a day Routine Apply to groin topica lly two times a day relate d to OTHER SPECIF IED HEALTH STATUS (Z78.9 ) for 14 Days 08/06 Nystatin External Powder 541356 UNIT/GM aborted 973685 RXNORM n/a n/a Topical two times a day Routine Apply to groin topica lly two times a day relate d to OTHER SPECIF IED HEALTH STATUS (Z78.9 ) for 14 Days 07/25 Carvedilol Oral Tablet 6.25 MG complete d 19990509 RXNORM 6.25 mg Oral one time only One Time Only Give 6.25 mg by mouth one time only relate d to ESSENT IAL (PRIMA RY) HYPERT ENSION (I10) until 2024 23:59 08/03 hydroCHLOROth iazide Oral Tablet 25 MG aborted 119020 RXNORM 1 tablet Oral one time only One Time Only Give 1 tablet by mouth one time only for give one time dose of HCTZ 25mg at this time. relate d to ESSENT IAL (PRIMA RY) HYPERT ENSION (I10) for 1 Day 08/05 hydroCHLOROth iazide Oral Tablet 25 MG aborted 393014 RXNORM 2 tablet Oral in the morning Routine Give 2 tablet by mouth in the mornin g relate d to ESSENT IAL (PRIMA RY) HYPERT ENSION (I10) 08/05 hydroCHLOROth iazide Oral Tablet 50 MG aborted 119774 RXNORM 1 tablet Oral in the morning Routine Give 1 tablet by mouth in the mornin g relate d to ESSENT IAL (PRIMA RY) HYPERT ENSION (I10) 08/06 Mental Status Section Date Assessment Total Score Description 07/20/2024 BIMS 09 moderate cognit floyd impairment CAM 0 No delirium ind icated PHQ-9 13 moderate depres dougie 07/20/2024 BIMS 09 moderate cognit floyd impairment CAM 0 No delirium ind icated PHQ-9 13 moderate depres dougie Problems Problem # Description Date of onset Resolved Date Code CodeSystem Concern Status 1 OBESITY, UNSPECIFIED 07/17/[id number] active 2 ATHEROSCLEROTIC HEART DISEASE OF [place] CORONARY ARTERY WITHOUT ANGINA PECTORIS 07/14/[address] active 3 CELLULITIS OF UNSPECIFIED TOE 07/14/[address] active 4 CHRONIC OBSTRUCTIVE PULMONARY DISEASE, UNSPECIFIED 07/14/[address] active 5 DEPRESSION, UNSPECIFIED 07/14/[address] active 6 EDEMA, UNSPECIFIED 07/14/[address] active 7 ESSENTIAL (PRIMARY) HYPERTENSION 07/14/[address] active 8 HYPERLIPIDEMIA, UNSPECIFIED 07/14/[address] active 9 IRON DEFICIENCY ANEMIA, UNSPECIFIED 07/14/[address] active 10 MCC (CURRENT) USE OF INSULIN 07/14/[address] active 11 OTHER NONSPECIFIC ABNORMAL FINDING OF LUNG FIELD 07/14/[address] active 12 OTHER SPECIFIED HEALTH STATUS 07/14/[address] active 13 PAIN IN LEFT WRIST 07/14/[address] active 14 PAIN IN UNSPECIFIED TOE(S) 07/14/[address] active 15 PNEUMONIA, UNSPECIFIED ORGANISM 07/14/[address] active 16 REPEATED FALLS 07/14/[address] active 17 TYPE 2 DIABETES MELLITUS WITHOUT COMPLICATIONS 07/14/[address] active 18 UNSPECIFIED ATRIAL FIBRILLATION 07/14/[address] active 19 UNSPECIFIED DEMENTIA, UNSPECIFIED SEVERITY, WITHOUT BEHAVIORAL DISTURBANCE, PSYCHOTIC DISTURBANCE, MOOD DISTURBANCE, AND ANXIETY 07/14/[address] active 20 UNSPECIFIED DIASTOLIC (CONGESTIVE) HEART FAILURE 07/14/[address] active 21 UNSPECIFIED HEARING LOSS, UNSPECIFIED EAR 07/14/[address] active Reason for Referral No Reasons for Referral Entered Social History Social History Observation Description Start Date End Date Code Code System Current Smoking Status Tobacco smoking consumption unknown 995183389 SNOMED CT Sex Assigned At Female 1935 42923-9 [facility] Gender Identity Female [id number] [address] Vital Signs Code Code System Vitals Name Values and Units Timing Information 2339-0 [facility] Blood Sugar Trsfx=683.0 Units=mg/dL 08/05/2024 8462-4 [facility] Blood Pressure-Diastolic Value=82 Un its=mmHg 08/05/2024 8480-6 [facility] Blood Pressure-Systolic Ipjyr=708 Un its=mmHg 08/05/2024 8867-4 [facility] Heart rate Value=87.0 Units=/min 9279-1 [facility] Respiratory Rate Value=16.0 Units=/m in 08/05/2024 8310-5 [facility] Body Temperature Gjthz=413.4 Units= F 08/05/2024 52285-1 [facility] O2 % BldC Oximetry Value=88.0 Units= % 08/05/2024 19392-2 [facility] Weight Lfgad=642.0 Units=Lbs 53964-6 [facility] Pain Level Value=3.0 07/24/2024 8302-2 [facility] Height Value=64.0 Units=Inches 07/14/2024
--- OUTSIDE RECORDS SUMMARY | 2024-09-04 06:26 | XMS_ITS | Clinical Summary ---
Author Organization Driver Address [address] [place] [address] Care Team Providers Care Furnace Loader Name Role Phone Zahira Feldman MD Unavailable + [facility] Unavailable Darlene Mendoza MD Primary Care Provider [phone] Allergies Active Allergy Reactions Criticality Noted Date [...] by automated process. 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 Gender Identity Not on file Sexual Orientation [...] RISK ASSESSMENT 05/03/2022 05/03/2021, 05/03/2021, 11/04/2017 COVID-19 VACCINE ( season) 2023 12/31/2022, 11/28/2021, 12/07/2020, Additional history exists PHQ-2 (once per calendar year) 2024 08/26/2022, 05/03/2021, 11/04/2017 COLONOSCOPY 04/15/2024 04/15/2019, 08/2019, 11/28/2009 COLORECTAL CANCER SCREENING 04/15/2024 BMP 06/10/2024 12/11/2023, 100 04/2023, 12/09/2023, Additional history exists A1C 12/05/2024 06/04/2024, 100 03/2023, 07/14/2022, Additional history exists ALT 12/08/2024 12/09/2023, 03/11, 03/30/2020, Additional history exists CBC 06/04/2025 06/04/2024, 100 05/2023, 12/09/2023, Additional history exists DTAP/TDAP/TD VACCINE (6 - Td or Tdap) 10/28/2028 10/28/2018, 03/07/2008, 03/07/2008, Additional history exists ADVANCE CARE PLANNING 12/14/2028 12/15/2023 , 07/16/2022, 10/08/2017 MAMMO SCREENING Discontinued 10/03/2014, 06/08, 04/08/2003, Additional history exists PNEUMOCOCCAL VACCINE 50+ YEARS Completed 10/23/2016, 05/19/2014, 03/10/2001, Additional history exists ZOSTER VACCINE Completed 10/11/2019, 12/25/2018 TSH W/FREE T4 REFLEX Completed 04/07/2020 INFLUENZA VACCINE Completed 11/20/2023, , 11/15/2022, Additional history exists HPV VACCINE Aged Out No longer eligi ble based on patient's age to complete this topic MENINGITIS VACCINE Aged Out No longer eligible based on patient's age to complete this topic Procedures Procedure Name Priority Date/Time Associated Diagnosis Comments TRIP CHARGE - LAB ONLY Routine 09/03/2024 6:35 AM CDT Essential (primary) hypertension Chronic diastolic (congestive) heart failure (H) Chronic obstructive pulmonary disease, unspecified (H) Type 2 diabetes mellitus without complications (H) Unspecified urinary incontinence BASIC METABOLIC PANEL NO GLUCOSE (OUTREACH) Routine 09/03/2024 6:35 AM CDT Essential (primary) hypertension Chronic diastolic (congestive) heart failure (H) Chronic obstructive pulmonary disease, unspecified (H) Type 2 diabetes mellitus without complications (H) Unspecified urinary incontinence GLUCOSE (OUTREACH) Routine 09/03/2024 6: 35 AM CDT Essential (primary) hypertension Chronic diastolic (congestive) heart failure (H) Chronic obstructive pulmonary disease, unspecified (H) Type 2 diabetes mellitus without complications (H) Unspecified urinary incontinence URINE CULTURE Routine 08/20/2024 7:50 AM CDT Disorientation, unspecified ROUTINE UA WITH MICROSCOPIC Routine 08/20/2024 7:50 AM CDT Disorientation, unspecified TRIP CHARGE - LAB ONLY Routine 06/04/2024 10:51 AM CDT Encounter for general adult medical examination without abnormal findings Other specified counseling Age-related physical debility Atherosclerotic heart disease of [place] coronary artery without angina pectoris Unspecified atrial [...] Age-related physical debility Atherosclerotic heart disease of [place] coronary artery without angina pectoris Unspecified atrial [...] Age-related physical debility Atherosclerotic heart disease of [place] coronary artery without angina pectoris Unspecified atrial [...] Age-related physical debility Atherosclerotic heart disease of [place] coronary artery without angina pectoris Unspecified atrial [...] Age-related physical debility Atherosclerotic heart disease of [place] coronary artery without angina pectoris Unspecified atrial [...] buttock, stage 2 (H) BASIC METABOLIC PANEL Routine 12/11/2023 7:08 AM CDT HEPATIC FUNCTION PANEL STAT 12/09/2023 10:08 PM CDT TSH WITH FREE T4 REFLEX STAT 04/07/2020 1:59 PM KEY BED INSTALLER COLONOSCOPY Routine 04/15/2019 11:47 AM KEY BED INSTALLER OCCULT BLOOD STOOL STAT 04/12/2019 3: 27 PM KEY BED INSTALLER LIPID PROFILE Timed 04/20/2010 6:16 AM KEY BED INSTALLER EYE EXAM - HIM SCAN 12/18/2005 1 2:00 AM CDT C MAMMOGRAM, SCREENING Routine 04/08/2003 1:03 PM KEY BED INSTALLER Screening Mamm-Mailg Neopl-Other C FOOT EXAM Routine 03/30/2003 5:13 PM KEY BED INSTALLER Diabetes Uncompl Adult-Type Ii from Last 3 Months or Most Recently Relevant to Health Maintenance Results * Trip Charge - LAB ONLY (09/03/2024 6:35 AM CDT) Only the most recent of2 resultswithin the time period is included. Other TOPOGRAPHY UNKNOWN / Unknown Billing only / Unknown 09/03/2024 6:35 AM CDT 09/03/2024 10:39 AM CDT us Teresa Talbot PA-C LAB CHARGE PERFORMABLE S Final Result [facility] [id number] [place] [address] * (ABNORMAL) Basic Metabolic Panel No Glucose (OUTREACH) (09/03/2024 6:35 AM CDT) Only the most recent of2 resultswithin the time period is included. Sodium 138 135 - 145 mmol/L 09/03/2024 12:08 PM CDT [facility] Potassium 3.8 3.4 - 5.3 mmol/L 09/03/2024 12:08 PM CDT [facility] Chloride 98 98 - 107 mmol/L 09/03/2024 12:08 PM CDT [facility] Carbon Dioxide (CO2) 30(H) 22 - 29 mmol/L 09/03/2024 12:08 PM CDT [facility] Anion Gap 10 7 - 15 mmol/L 09/03/2024 12:08 PM CDT [facility] Urea Nitrogen 16.5 8.0 - 23.0 mg/dL 09/03/2024 12:08 PM CDT [facility] Creatinine 0.76 0.51 - 0.95 mg/dL 09/03/2024 12:08 PM CDT [facility] GFR Estimate 75 >60 mL/min/1.7 3m2 09/03/2024 12:08 PM CDT [facility] Calcium 9.3 8.8 - 10.4 mg/dL 09/03/2024 12:08 PM CDT [facility] Blood STRUCTURE OF RIGHT UPPER LIMB / Unknown Venipuncture / Unknown 09/03/2024 6:35 AM CDT 09/03/2024 10:39 AM CDT us Teresa Talbot PA-C LAB - BLOOD ORDERABLES Final Result [facility] [address] [facility], [address] [place] [phone], [facility] * Glucose (OUTREACH) (09/03/2024 6:35 AM CDT) Only the most recent of2 resultswithin the time period is included. Glucose 71 70 - 99 mg/dL 09/03/2024 12:23 PM CDT [facility] Blood STRUCTURE OF RIGHT UPPER LIMB / Unknown Venipuncture / Unknown 09/03/2024 6:35 AM CDT 09/03/2024 10:39 AM CDT us Teresa Talbot PA-C LAB - BLOOD ORDERABLES Final Result [facility] [address] [facility], [address] [place] [id number] * (ABNORMAL) UA with Microscopic (08/20/2024 7:50 AM CDT) Color Urine Light Yellow Colorless, Straw, Light Yellow, Yellow 08/20/2024 11:37 AM CDT [facility] Appearance Urine Clear Clear 08/21/19 11:37 AM CDT [facility] Glucose Urine Negative Negative mg/dL 08/20/2024 11:37 AM CDT [facility] Bilirubin Urine Negative Negative 11:37 AM CDT [facility] Ketones Urine Negative Negative mg/dL 08/20/2024 11:37 AM CDT [facility] Specific [place] Urine 1.009 1.003 - 1.035 08/20/2024 11:37 AM CDT [facility] Blood Urine Negative Negative 08/20/2024 11:37 AM CDT [facility] pH Urine 6.5 5.0 - 7.0 08/20/2024 11:37 AM CDT [facility] Protein Albumin Urine Negative Negative mg/dL 08/20/2024 11:37 AM CDT [facility] Urobilinogen Urine Normal Normal mg/dL 08/20/2024 11:37 AM CDT [facility] Nitrite Urine Negative Negative 08/20/2024 11:37 AM CDT [facility] Leukocyte Esterase Urine Negative Negative 08/20/2024 11:37 AM CDT [facility] Bacteria Urine Few(A) None Seen /HPF 08/20/2024 11:37 AM CDT [facility] RBC Urine <1 <=2 /HPF 08/20/2024 11:37 AM CDT [facility] WBC Urine <1 <=5 /HPF 08/20/2024 11:37 AM CDT [facility] Squamous Epithelials Urine 1 <=1 /HPF 08/20/2024 11:37 AM CDT [facility] Urine URINE SPECIMEN OBTAINED BY CLEAN CATCH PROCEDURE / Unknown Non-blood Collection / Unknown 08/20/2024 7:50 AM CDT 08/20/2024 10:34 AM CDT us Teresa Talbot PA-C LAB - URINE ORDERABLES Final Result [facility] [address] [facility], [address] [place] [id number] * Urine Culture (08/20/2024 7:50 AM CDT) Culture 10,000-50,000 CFU/mL Mixture of urogenital suellen 08/21/2024 8:29 AM CDT [facility] Urine URINE SPECIMEN OBTAINED BY CLEAN CATCH PROCEDURE / Unknown Non-blood Collection / Unknown 08/20/2024 7:50 AM CDT 08/20/2024 10:34 AM CDT Teresa Talbot PA-C LAB - MICRO GENERAL OR DERABLES Final Result [facility] Inf. Diseases Diag. Lab [address] [facility], [address] [place] [address] * (ABNORMAL) Hemoglobin A1c (06/04/2024 10:51 AM [...] AM CDT 06/04/2024 2:32 PM CDT us Teresa Talbot PA-C LAB - BLOOD ORDERABLES Final Result [facility] [address] [facility], [address] [place] [address] * (ABNORMAL) CBC with platelets (06/04/2024 [...] 10:51 AM CDT 06/04/2024 2:32 PM CDT Teresa J Antinoe PA-C LAB - BLOOD ORDERABLES Final Result [facility] [address] [facility], [address] [place] [address] * (ABNORMAL) Basic metabolic panel (12/11/2023 7:08 AM CDT) Sodium 137 135 - 145 mmol/L 12/11/2023 7:43 AM CDT LABORATORY Potassium 4.4 3.4 - 5.3 mmol/L 12/11/2023 7:43 AM CDT LABORATORY Chloride 98 98 - 107 mmol/L 12/11/2023 7:43 AM CDT LABORATORY Carbon Dioxide (CO2) 28 22 - 29 mmol/L 12/11/2023 7:43 AM CDT LABORATORY Anion Gap 11 7 - 15 mmol/L 12/11/2023 7:43 AM CDT LABORATORY Urea Nitrogen 18.5 8.0 - 23.0 mg/dL 12/11/2023 7:43 AM CDT LABORATORY Creatinine 0.74 0.51 - 0.95 mg/dL 12/11/2023 7:43 AM CDT LABORATORY GFR Estimate 78 >60 mL/min/1.7 3m2 12/11/2023 7:43 AM CDT LABORATORY Comment:eGFR calculated usin g 2020 CKD-EPI equation. Calcium 8.6(L) 8.8 - 10.4 mg/dL 12/11/2023 7:43 AM CDT LABORATORY Comment:Reference intervals for this test were [...] - BLOOD ORDERABLES Fi nal Result LABORATORY [facility] [address] Lab (1st floor, no room number) [place] [address] * Hepatic function panel (12/09/2023 10:08 PM [...] LAB - BLOOD ORDERABLES Final R esult [facility] [address] Lab (1st floor, no room number) [place] [address] * TSH with free T4 reflex (04/07/2020 1:59 PM KEY BED INSTALLER) TSH 1.10 0.40 - 4.00 mU/L 04/07/2020 2:42 PM KEY BED INSTALLER [facility] Blood specimen (specimen) 04/07/2020 1:59 PM KEY BED INSTALLER 04/07/2020 2:11 PM KEY BED INSTALLER us Austin Mccarty PA-C LAB - BLOOD ORDERABLES Final Re sult [facility] [address] [place] [address], [place] [phone] * COLONOSCOPY (04/15/2019 11:47 AM KEY BED INSTALLER) COLONOSCOPY [facility] Patient Name: Alyx Sarmiento Procedure Date: [...] # [id number], [place] # [id number], SN # [id number] was introduced through the anus and advanced [...] Interventional Radiology Procedure Code(s): --- Professional --- 78335, Colonoscopy, flexible; diagnostic, including collection of specimen(s) by brushing or washing, when performed (separate procedure) CPT copyright 2018 [employer]. All rights reserved. The codes documented in this report are preliminary and upon loader magazine grinder review may be revised to meet current [...] PM RADIOLOGY RESULTS 04/15/2019 11:4 7 AM KEY BED INSTALLER us Dina Johnson MD PROCEDURES Final R esult RADIOLOGY RESULTS * (ABNORMAL) Occult blood stool (04/12/2019 3:27 PM KEY BED INSTALLER) Occult Blood Positive(A ) NEG^Negati ve 04/12/2019 3:46 PM KEY BED INSTALLER [facility] Comment: Called to AGUSTIN DELANEY (LIBIA) ON 04.12.19 AT 1546 BY KV 04/12/2019 3:27 PM KEY BED INSTALLER 04/12/2019 3:40 PM KEY BED INSTALLER Arley Ham MD LAB - STOOLS ORDERABLES Edited Result - Final [facility] [address] [phone] * (ABNORMAL) Lipid panel (04/20/2010 6:16 AM KEY BED INSTALLER) Cholesterol 160 0 - 200 mg/dL MISYS [...] 0.0 - 5.0 MISYS 04/20/2010 6:16 AM KEY BED INSTALLER 04/20/2010 7:00 AM KEY BED INSTALLER Pilo Ortiz DO LAB - BLOOD ORDERABLES Fin al Result MISYS * EYE EXAM - HIM SCAN (12/18/2005 12:00 AM CDT) 12/18/2005 us Provider Outside OTHER Final Result * MAMMOGRAM, SCREENING (04/08/2003 1:03 PM KEY BED INSTALLER) MAMMOGRAM Anatomical Region Laterality Modality Mammography Impressions 04/08/2003 1:03 PM KEY BED INSTALLER RADIOLOGIST'S INTERPRETATION: Breast parenchyma: fatty/mild densities IMAGING IMPRESSION: (CATEGORY-1) NEGATIVE Radiologist: Spencer Frye Apr Electronically filed by Kathleen Harrington 04/13/2003 2:52 PM Petr Lindquist MD SPECIAL IMAGING STUDIES Final R esult from Last 3 Months or Most Recently Relevant to Health Maintenance Insurance [facility] [address] [place] [id number] [facility] MEDICARE ADVANTAGE BCBS MEDICARE ADVANTAGE Advance Directives For more information, please contact: [phone] Documents on File Type Date Recorded 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 Care Teams Furnace Loader Relationship Specialty Start Date End Date Darlene Mendoza MD [facility] [address] [place] [address] PCP - General Family Medicine 07/19/22 Zahira Feldman MD [address] [place] [address] Ophthalmology 10/13/17 [facility], [address] [phone] 07/17[facility]22 [facility] 07/15/22
--- OUTSIDE RECORDS SUMMARY | 2024-09-04 06:26 | XMS_ITS | Clinical Summary ---
Author Organization [facility] Address [address] , [address] [place] [address] Phone Care Team Providers Care Computer Support Specialist Name Role Phone Narendra Ricardo MD Conditions or Problems Problem Name Problem Code Onset Date Status Entry Date Provider Comment Standard Description Annotate Gait imbalance 087794960 (SNOMED CT) 04/11 Active 04/11 Narendra Ricardo MD Abnormal gait due to impairment of balance Dementia 06975808 (SNOMED CT) 04/11 Active 04/11 Narendra Ricardo MD Dementia Hypertension 45032046 (SNOMED CT) 09/26 Active 09/26 Narendra Ricardo MD Hypertensive disorder Type 2 diabetes mellitus 29178456 (SNOMED CT) 09/26 Active 09/26 Narendra Ricardo MD Type 2 diabetes mellitus Depression NOS 59960037 (SNOMED CT) 04/13 Active 04/22 Suni Begum PsyD Depressive disorder Mild cognitive impairment 325690234 (SNOMED CT) 04/13 Active 04/22 Suni Begum PsyD Mild neurocognitive disorder Memory loss 99077441 (SNOMED CT) 07/17 Active 07/17 Narendra Ricardo MD Amnesia MIGRAINE VARIANT, 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 Provider DONEPEZIL HCL 10 MG TABS Take 1 tablet by mouth once a day 04/22 donepezil [id number] Laila Dinaneftali Aguirreil PA-C DONEPEZIL HCL 23 MG TABS Take 1 tablet by mouth once a day 04/11 donepezil 65537194050 Elva Underwood RN, BSN DONEPEZIL HCL 10 MG TABS Take 1 tablet by mouth once a day 04/11 donepezil 23472608988 Narendra Ricardo MD DONEPEZIL HCL 23 MG TABS Take 1 tablet by mouth once a day 04/11 donepezil 28896166180 Narendra Ricardo MD QUETIAPINE FUMARATE 25 MG TABS take 1 tab by mouth at bedtime 11/13 quetiapine 68941818824 Laila Larkin PA-C VALSARTAN twice a day 10/09 DIOVAN Laila Larkin PA-C ASPIRIN 325 MG TABS once a day 10/09 aspirin 90502193681 Laila Larkin PA-C HYDROCHLOROTHIAZIDE 25 MG TABS once a day 10/09 hydrochlorothiazi de 06839630883 Laila Aguirreil PA-C TEMAZEPAM 30 MG CAPS Bedtime 10/09 temazepam 19284362016 Laila Larkin PA-C HYDROCODONE-ACETAMIN OPHEN 5-325 MG TABS every six hours as needed 10/09 hydrocodone-aceta minophen 43442806567 Laila Aguirreil PA-C POTASSIUM CHLORIDE ER 10 MEQ CR-CAPS twice a day 10/09 potassium chloride 36780596096 Laila Aguirreil PA-C DIAZEPAM 5 MG TABS 1 tablet by mouth 07/23 diazepam 11990861572 Laila Aguirreil PA-C METFORMIN HCL 500 MG TABS 10/09 metformin 27938203484 Laila Aguirreil PA-C FLUTICASONE PROPIONATE HFA 10/09 FLOVENT HFA [facility] THIAMINE HCL once a day 10/09 THIAMINE [facility] INSULIN ISOPHANE twice a day 10/09 HUMAN Laila Dina Trae NEAL TIOTROPIUM BROMIDE MONOHYDRATE once a day 10/09 SPIRIVA HANDIHALER [facility] SENNOSIDES 8.6 MG TABS twice a day as needed 10/09 SENNOSIDES [facility] POTASSIUM CHLORIDE ER 10 MEQ CR-TABS 10/09 potassium chloride [address]3577520 [facility] ALBUTEROL SULFATE HFA 108 (90 Base) MCG/ACT AERS every four hours as needed 10/09 albuterol sulfate 80321071140 [facility] CALCIUM/C/D 500-10-250 MG-MG-UNIT CHEW calcium carbonate 71033869319 [facility] Dina Cherjoseco ÁNGEL VITAMIN D3 25 MCG (1000 UT) TABS cholecalciferol (vitamin d3) 57439640046 [facility] Dina Cherjoseco ÁNGEL TRELEGY ELLIPTA 200-62.5-25 MCG/ACT AEPB fluticasone-umec l idin-vilanter 24204514537 [facility] DIAZEPAM 5 MG TABS 1 tablet by mouth 07/23 diazepam 83305759361 Narendra Ricardo MD SENNOSIDES 8.6 MG TABS twice a day as needed 10/09 SENNOSIDES Narendra Ricardo MD BISACODYL 10 MG SUPP once a day as needed 04/11 bisacodyl 02593696680 Narendra Ricardo MD VALSARTAN twice a day 10/09 DIOVAN Narendra Ricardo MD VITAMIN B-12 500 MCG TABS once a day cyanocobalamin (vitamin b-12) 15568719408 Narendra Ricardo MD LEVOFLOXACIN 500 MG TABS null 04/11 levofloxacin 09987389936 Narendra Ricardo MD HYDROCHLOROTHIAZIDE 25 MG TABS once a day hydrochlorothiaz i de 32001421798 Narendra Ricardo MD POTASSIUM CHLORIDE ER 10 MEQ CR-CAPS twice a day 08/13 potassium chloride 40901805848 Narendra Ricardo MD TIOTROPIUM BROMIDE MONOHYDRATE once a day 10/09 SPIRIVA HANDIHALER Narendra Ricardo MD ASPIRIN 325 MG TABS once a day 10/09 aspirin 89686109003 Narendra Ricardo MD GLIPIZIDE 10 MG TABS once a day 04/11 glipizide 60385926264 Narendra Ricardo MD CO Q-10 300 MG CAPS once a day coenzyme q10 1082 8031204 Narendra Ricardo MD IRBESARTAN 300 MG TABS twice a day irbesartan 36649519797 Narendra Ricardo MD THIAMINE HCL once a day 10/09 THIAMINE Narendra Ricardo MD DONEPEZIL HCL 5 MG TABS 04/11 donepezil 35831663139 Narendra Ricardo MD NYSTATIN 951889 UNIT/GM CREA 2-3X/Day 04/11 nystatin 62511204571 Narendra Ricardo MD CLONIDINE HCL 0.3 MG TABS three times a day 04/11 clonidine hcl 56047939860 Narendra Ricardo MD ALBUTEROL SULFATE HFA 108 (90 Base) MCG/ACT AERS every four hours as needed 10/09 albuterol sulfate 11625676686 Narendra Ricardo MD FUROSEMIDE 20 MG TABS once a day 04/11 furosemide 68426248738 Narendra Ricardo MD CLOPIDOGREL BISULFATE 75 MG TABS once a day 04/11 clopidogrel 32731596722 Narendra Ricardo MD INSULIN ISOPHANE twice a day 10/09 HUMAN Narendra Ricardo MD TEMAZEPAM 30 MG CAPS Bedtime 10/09 temazepam 53956355118 Narendra Ricardo MD NAPROXEN SODIUM 220 MG TABS twice a day 04/11 naproxen sodium 54334480358 Narendra Ricardo MD BUMETANIDE 0.5 MG TABS twice a day 04/11 bumetanide 54913797408 Narendra Ricardo MD HYDROCODONE-ACETAMIN OPHEN 5-325 MG TABS every six hours as needed 10/09 hydrocodone-aceta minophen 67553032403 Narendra Ricardo MD WARFARIN SODIUM 1 MG TABS once a day 04/11 warfarin 61027557508 Narendra Ricardo MD FLUTICASONE PROPIONATE HFA 10/09 FLOVENT HFA Narendra Ricardo MD HYDROCHLOROTHIAZIDE 25 MG TABS once a day 10/09 hydrochlorothiazi de 00269344768 Narendra Ricardo MD DONEPEZIL HCL 10 MG TABS Take 1 tablet by mouth once a day 04/11 donepezil 66886900753 Narendra Ricardo MD DONEPEZIL HCL 5 MG TABS 04/11 donepezil 32230795551 Narendra Ricardo MD METFORMIN HCL 500 MG TABS 10/09 metformin 95350595611 Narendra Ricardo MD LANTUS SOLOSTAR 100 UNIT/ML SOPN insulin glargine 31055753813 Samira Ricardo MD POTASSIUM CHLORIDE ER 10 MEQ CR-TABS 10/09 potassium chloride 62058170253 Narendra Ricardo MD FLUOXETINE HCL 10 MG CAPS fluoxetine 15563085959 Narendra Ricardo MD DIAZEPAM 5 MG TABS One tab po 30min before scan. July repeat x 1. 07/23 DIAZEPAM 58659978372 Narendra Ricardo MD WARFARIN SODIUM 1 MG TABS Daily 04/11 WARFARIN SODIUM 1 MG ORAL TABLET 46589904164 System Maintenance VALSARTAN (DIOVAN) 160 MG TAB, [...] Bedtime 04/11 TEMAZEPAM 30 MG ORAL CAPSULE 84828704282 System Maintenance SENNOSIDES 8.6 MG TABS Twice A Day as needed 04/11 SENNOSIDES, FDC 8.6 MG ORAL TABLET 35583319227 System Maintenance POTASSIUM CHLORIDE ER 10 MEQ CR-CAPS Twice A Day 08/13 POTASSIUM CHLORIDE 10 MEQ EXTENDED RELEASE ORAL CAPSULE 32452686834 System Maintenance NYSTATIN 497956 UNIT/GM CREA 2-3X/Day 08/13 NYSTATIN 592914 UNT/ML TOPICAL CREAM 93900125237 System Maintenance NAPROXEN SODIUM 220 MG TABS Twice A Day 08/13 NAPROXEN SODIUM 220 MG ORAL TABLET 74285331547 System Maintenance LEVOFLOXACIN 500 MG TABS null 04/11 LEVOFLOXACIN 500 MG ORAL TABLET 54181630322 System Maintenance IRBESARTAN 300 MG TABS Twice A Day 04/11 IRBESARTAN 300 MG ORAL TABLET 22930858827 System Maintenance INSULIN ISOPHANE (HUMAN) (NOVOLIN N RELION) RELION INJ, 15-25 UNIT SUBCUTANEOUSL Twice A Day 04/11 INSULIN HUMAN, ISOPHANE 100 UNT/ML INJECTABLE SUSPENSION System Maintenance HYDROCHLOROTHIAZIDE 25 MG TABS Daily 04/11 HYDROCHLOROTHIAZI DE 25 MG ORAL TABLET 17148961459 System Maintenance HYDROCHLOROTHIAZIDE 25 MG TABS Daily 04/11 HYDROCHLOROTHIAZI DE 25 MG ORAL TABLET 63576432306 System Maintenance GLIPIZIDE 10 MG TABS Daily 04/11 GLIPIZIDE 10 MG ORAL TABLET 53914704070 System Maintenance FUROSEMIDE 20 MG TABS Daily 04/11 FUROSEMIDE 20 MG ORAL TABLET 65739549402 System Maintenance FLUTICASONE PROPIONATE HFA (FLOVENT HFA) 220 MCG/ACT AER 04/11 120 ACTUAT FLUTICASONE PROPIONATE 0.22 MG/ACTUAT METERED DOS System Maintenance B-12 500 MCG TABS Daily 04/11 VITAMIN B 12 0.5 MG ORAL TABLET 07453827024 System Maintenance CO Q-10 300 MG CAPS Daily 04/11 COENZYME Q10 300 MG ORAL CAPSULE 70271474896 System Maintenance CLOPIDOGREL BISULFATE 75 MG TABS Daily 04/11 CLOPIDOGREL 75 MG ORAL TABLET 92743132971 System Maintenance CLONIDINE HCL 0.3 MG TABS Three Times A Day 04/11 CLONIDINE HYDROCHLORIDE 0.3 MG ORAL TABLET 58668132548 System Maintenance BUMETANIDE 0.5 MG TABS Twice A Day 08/13 BUMETANIDE 0.5 MG ORAL TABLET 25629749646 System Maintenance BISACODYL LAXATIVE 10 MG SUPP Daily as needed 04/11 BISACODYL 10 MG RECTAL SUPPOSITORY 83625582454 System Maintenance ASPIRIN 325 MG TABS Daily 04/11 ASPIRIN 325 MG ORAL TABLET 39716817302 System Maintenance ALBUTEROL SULFATE HFA 108 (90 Base) MCG/ACT AERS Every 4 Hours as needed 04/11 200 ACTUAT ALBUTEROL 0.09 MG/ACTUAT METERED DOSE INHALER 84704357422 System Maintenance HYDROCODONE-ACETAMIN OPHEN 5-325 MG TABS Every 6 Hours as needed 04/11 ACETAMINOPHEN 325 MG / HYDROCODONE BITARTRATE 5 MG ORAL TABL 84271481173 System Maintenance Medications Administered No information available. 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 Replaced Document: (P) T4, F REE, TSH, VITAMIN B12 B-12 * pg/mL Cobalamin (Vitamin B12) [Mass/volume] in Serum or Plasma TSH 1.75 u[iU]/mL 0.40-4.50 N Thyrotropi n [Units/volume] in Serum or Plasma FRT4 1.0 0.8-1.8 N FREE T4 Internal Other: Verbal Autho rization/Emergency Contact - OBS VERBAL_EMER DONE Verbal authorization and emergency contact External Correspondence: [facility] Directive/Healthcare power of automobile mechanic assistant - OBS AD DISCUSSED Advanced care planning discussed Advanced directive discussed w/member/caregive r; Patient received counseling regarding palliation - symptom management - end of life decisions Office Visit: Office Visit f ax DEMENTIA2 Assessment of cognition performed and results reviewed. Total score [MMSE] [id number] Mild Total scor e [MoCA] MMSE SCORE [...] Detail Appointment 01:00 PM Laila Larkin PA-C, [address] [place] [address], [address], [place], [address], Pending order Follow up DOUGLAS Pending order [...] Name Date Entry Date ORDERS Follow up [facility]-[id number] Documentation of current medicatio ns [facility]-[id number] Documentation of current medicatio ns ORDERS Patient Instructions ORDERS Patient Instructions LOINC 71788-2 MMSE ORDERS Follow up DOUGLAS ORDERS Patient Instructions SCT-[id number] Documentation of current medicatio ns ORDERS Follow up LOINC 91665-2 MMSE ORDERS Obtain outside records 04/11 ORDERS Follow up DOUGLAS in clinic or telemedicine 2 LOINC 18298-4 MMSE ORDERS Patient Instructions SCT-[id number] Documentation of current medicatio ns ORDERS Patient Instructions ORDERS Occupational Therapy SCT-[id number] Documentation of current medicatio ns CPT-95121 Free Service ORDERS Follow up telemedicine 11/28 ORDERS Neuropsychology Evaluation 2 ORDERS Patient Instructions [facility]-[id number] Documentation of current medicatio ns ORDERS Follow up ORDERS Patient Instructions ORDERS Patient Instructions SCT-[id number] Documentation of current medicatio ns ORDERS Follow up DOUGLAS SCT-[id number] Consult SCT-[id number] Documentation of current medicatio ns ORDERS Patient Instructions ORDERS Follow up CPT-55828 Npsy Interp/Rpt by Provider - 1st hour 20 29/03/06 ORDERS Neuropsych Testing 0 CPT-91111 Npsy Interview w/Provider - 1st hour 2018 CPT-26594 Npsy Interp/Rpt by Provider - 1st hour 20 26/02/04 CPT-04211 Npsy Interp/Rpt by Provider - 2 hours 201 11/20/03 CPT-93302 Npsy Test by Tech (2+ Tests) - 1st 30 min CPT-53722 Npsy Test by Tech (2+ Tests) - 1.5 hours CPT-47430 MRI Brain W/O [id number] MRI-Brain W/O [facility]-[id number] Documentation of current medicatio ns ORDERS Patient [...]
--- OUTSIDE RECORDS SUMMARY | 2024-09-04 06:26 | XMS_ITS | Data Portability ---
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 Plan of Treatment Reminders Order Date Submit Date Provider Last Modified By Organization Details Last Modified Time Details Appointments None recorded. Lab urinalysis , dipstick 2023 024 [email or web address] [facility], [address], [place], [address], 4 15:42:13 urinalysis , dipstick 2022 023 [facility], [address], [address], [place], [address], 3 14:52:30 urinalysis , dipstick 2021 022 [email or web address] [facility], [address], [address], [place], [address], 2 15:00:59 Referral None recorded. Procedures bladder scan (PROC) 2022 023 [facility], [address], [address], [place], [address], 14:52:32 Surgeries None recorded. Imaging None recorded. Medication Orders None recorded. Patient TargetsNo targets recorded. Patient Instructions Encounter Date Encounter Id Patient Instructions Last Modified By Organization Details Last Modified Time 10/30/2021 [id number] will restart on gemtesa. plan recheck in 3 months. [email or web address] Not available 10/30/2021 15:08:56 01/29/2022 [id number] will continue on gemtesa samples. rtc 3 months. [email or web address] Not available 01/29/2022 12:05:53 10/17/2022 [id number] willt ry startin g her on oxybutynin ER 10mg daily and plan recheck in 2 months for SE's and effectiveness. rx sent [place] paperwork for [place] facility Not available 10/17/2022 11:10:27 01/28/2023 [id number] will set her up for UDS in [place]. [email or web address] Not available 01/28/2023 14:52:27 Reason for Referral None Reported. Results Created Date Observation Date Name Description Value Unit Range Abnormal Flag Note LastModifiedBy Organization Detail LastModifiedTime 10/31/1910/30/2021 urina lysis , dipst ick pH-Status 7.0 Not Available [address], [place], [address], 10/30/2021 15:00:30 10/31/19 22 10/30/2021 urina lysis , dipst ick Leuko-Status Small Not Available [address], [place], [address], 10/30/2021 15:00:30 01/29/20 23 01/28/2023 bladd er scan (PROC ) Volume (in mL) 0ml Not Available [address], [place], [address], 01/28/2023 14:44:33 01/29/20 23 01/28/2023 urina lysis , dipst ick pH-Status 7.0 Not Available [facility] [address], [place], [address], 01/28/2023 14:44:31 01/29/20 23 01/28/2023 urina lysis , dipst ick Leuko-Status Trace Not Available [facility] [address], [place], [address], 01/28/2023 14:44:31 03/26/19 24 03/26/2023 urina lysis , dipst ick Color-Status Yellow Not Available [facility] [address], [place], [address], 03/26/2023 15:41:09 03/26/19 24 03/26/2023 urina lysis , dipst ick Clarity-Stat us Clear Not Available [facility] [address], [place], [address], 03/26/2023 15:41:09 03/26/19 24 03/26/2023 urina lysis , dipst ick Glucose-Stat us Negati ve Not Available [facility] [address], [place], [address], 03/26/2023 15:41:09 03/26/19 24 03/26/2023 urina lysis , dipst ick Bilirubin-St atus Negati ve Not Available [facility] [address], [place], [address], 03/26/2023 15:41:09 03/26/19 24 03/26/2023 urina lysis , dipst ick Ketones-Stat us Negati ve Not Available [facility] [address], [place], [address], 03/26/2023 15:41:09 03/26/19 24 03/26/2023 urina lysis , dipst ick Sp Henderson-Stat us 1.020 Not Available [facility] [address], [place], [address], 03/26/2023 15:41:09 03/26/19 24 03/26/2023 urina lysis , dipst ick pH-Status 7.0 Not Available [facility] [address], [place], [address], 03/26/2023 15:41:09 03/26/19 24 03/26/2023 urina lysis , dipst ick Urobilinogen -Status 0.2 Not Available [facility] [address], [place], [address], 03/26/2023 15:41:09 03/26/19 24 03/26/2023 urina lysis , dipst ick Nitrates-Sta tus negati ve Not Available [facility] [address], [place], [address], 03/26/2023 15:41:09 03/26/19 24 03/26/2023 urina lysis , dipst ick Blood-Status Trace Not Available [facility] [address], [place], [address], 03/26/2023 15:41:09 03/26/19 24 03/26/2023 urina lysis , dipst ick Leuko-Status Negati ve Not Available [facility] [address], [place], [address], 03/26/2023 15:41:09 03/26/19 24 03/26/2023 urina lysis , dipst ick Specimen Type Voided Not Available [facility] [address], [place], [address], 03/26/2023 15:41:09 11/01/19 22 10/30/2021 bladd er [...] Organization Details Recorded Time Overactive urinary bladder [id number] Active 022 Favio Montalvo MD [address] [place] [address],[address], [place], [address], [facility] 12:03:28 Problem Notes None recorded. Procedures Surgical History Date Name Laterality Status Provider Name and Address Organization Details Recorded Time 03/26/19 24 Urodynamic Studies completed Giovanna Bolivar [facility] 03/26/2023 15:42:26 01/29/20 23 Bladder Scan completed Mario Renee [facility] 01/28/2023 14:44:23 10/18/19 23 Bladder Scan completed Lisa Bui [facility] 10/17/2022 10:45:47 01/30/20 22 Bladder Scan completed Favio Montalvo MD [address] [place] [address],[address], [place], [address], [facility] 01/29/2022 11:58:31 10/31/19 22 Bladder Scan completed Favio Montalvo MD [address] [place] [address],[address], [place], [address], [facility] 10/30/2021 15:00:24 08/22/19 22 Bladder Scan completed Favio Montalvo MD [address] [place] [address],[address], [place], [address], [facility] 08/21/2021 14:33:40 07/06/19 22 Bladder Scan completed Kristi Lloyd [facility] 07/05/2021 12:34:16 Total Hysterectomy completed Kristi Lloyd [facility] 07/05/2021 12:34:29 Cataract Surgery completed Kristi Lloyd [facility] 07/05/2021 12:34:36 Orthopedic Surgery completed Kristi Lloyd [facility] 07/05/2021 12:34:45 Imaging Results None recorded. Procedure Notes None recorded. Medical Equipment None Reported. Allergies Allergen ID Allergen Name Allergen Category Reaction Reaction Severity Criticality Documentation Date Start Date Code Code System Note Provider Name and Address Organization Details Recorded Time 017157 amlodipin e medicatio n Not available Not available Not available 03/26/2023 88049 [facility] 13:42:36 389947 azithromy lalo medicatio n Not available Not available Not available 03/26/2023 13808 [facility] 13:42:44 994027 furosemid e medicatio n Not available Not available Not available 03/26/2023 4603 [facility] 13:42:50 180297 insulin detemir medicatio n Not available Not available Not available 03/26/2023 26974 5 [facility] 13:42:57 304862 metformin medicatio n Not available Not available Not available 03/26/2023 6809 [facility] 13:43:06 138643 metoprolo l Not available Not available Not available Not available 03/26/2023 6918 [facility] 13:43:15 777846 naproxen medicatio n Not available Not available Not available 03/26/2023 7258 [facility] 13:43:22 005490 sitaglipt in medicatio n Not available Not available Not available 03/26/2023 10472 1 [facility] 13:43:40 250055 exenatide medicatio n Not available Not available Not available 03/26/2023 07444 RxNorm Giovanna sheth, [facility] 4 13:43:47 862768 levofloxa lalo medicatio n Not available Not available Not available 03/26/2023 53901 RxNorm Giovanna sheth, [facility] 4 13:43:55 698854 clopidogr el medicatio n Not available Not available Not available 03/26/2023 46723 RxNorm Giovanna sheth, [facility] 4 13:44:08 050666 losartan medicatio n Not available Not available Not available 03/26/2023 37742 RxNorm Giovanna sheth, [facility] 4 13:44:19 416926 Product containin g penicilli n (product) medicatio n Not available Not available Not available 03/26/2023 32629 8001 SNOMED [facility] 4 13:44:25 209884 lisinopri l medicatio n Not available Not available Not available 03/26/2023 07019 [facility] 4 13:44:30 654054 pioglitaz one medicatio n Not available Not available Not available 03/26/2023 41880 [facility] 4 13:44:41 992567 simvastat in medicatio n Not available Not available Not available 03/26/2023 24740 Rx[facility] 4 13:44:47 Medications Name Sig Start Date [...] Updated DateTime 10/17/2022 172.72 cm 32.2 kg/m2 68584.58 g Lisa Bui [facility] 10/17/2022 10:45:30 Date Recorded Body height Body mass index (BMI) Body weight Provider Name and Address Organization Details Last Updated DateTime 10/30/2021 172.72 cm 33.5 kg/m2 21249.32 g Favio Montalvo MD [address] [place] [address],[address], [address] 10/30/2021 14:59:44 Date Recorded Body height Body mass index (BMI) Body weight Provider Name and Address Organization Details Last Updated DateTime 01/28/2023 172.72 cm 32.2 kg/m2 06421.58 g Mario Víctor [facility] 01/28/2023 14:43:47 Date Recorded Body height Body mass index (BMI) Body weight Provider Name and Address Organization Details Last Updated DateTime 01/29/2022 172.72 cm 32.2 kg/m2 62096.58 g Favio Montalvo MD [address] [place] [address],[facility] [address], [place], [address] 01/29/2022 11:57:56 Social History Question Answer Notes LastModified by Organizat ion Details LastModified Time Tobacco Smoking Status Former Smoker Favio Montalvo MD [address] [place] [address],[address], [address] 07/05/2021 12:28:26 What Is Your Level Of Caffeine Consumption? Occasional [email or web address] Information not available 08/21/2021 When Did You Quit Smoking? 17+yearssinlisaa michael [email or web address] Information not available 07/05/2021 What Was The Date Of Your Most Recent Tobacco Screening? 07/05/2021 [email or web address] Information not available 07/05/2021 Has Tobacco Cessation Counseling Been Provided? No Information not available 07/05/2021 Sex: Unknown Functional Status Question Answer Note LastModified by Organizat ion Details LastModified Time Do you or have you ever used any other forms of tobacco or nicotine? No [email or web address] Information not available 07/05/2021 What is your level of alcohol consumption? Occasional [email or web address] Information not available 08/21/2021 Mental Status None recorded. Family History Relationship [...] trivalent, PF 6 completed Favio Montalvo MD [address] [place] [address],[address], [address] [place] [address], [facility] 07/05/2021 12:25:26 Influenza, split virus, trivalent, preservative 4 completed Favio Montalvo MD [address] [place] [address],[address], [address] [place] [address], [facility] 07/05/2021 12:25:26 zoster recombinant 9 completed Favio Montalvo MD [address] [place] [address],[address], [address] [place] [address], [facility] 07/05/2021 12:25:27 influenza, unspecified formulation 9 completed Favio Montalvo MD [address] [place] [address],[address], [address] [place] [address], [facility] 07/05/2021 12:25:27 zoster recombinant 0 completed Favio Montalvo MD [address] [place] [address],[address], [address], [facility] 07/05/2021 12:25:27 Influenza, split virus, trivalent, preservative 4 completed Favio Montalvo MD [address] [place] [address],[address], [address], [facility] 07/05/2021 12:25:27 Influenza, recombinant, quadrivalent, PF 9 completed Favio Montalvo MD [address] [place] [address],[address], [address], [facility] 07/05/2021 12:25:27 COVID-19, mRNA, LNP-S, PF, 30 mcg/0.3 mL dose 1 completed Favio Montalvo MD [address] [place] [address],[address], [place], [address], [facility] 07/05/2021 12:25:27 pneumococcal polysaccharide PPV23 2 completed Favio Montalvo MD [address] [place] [address],[address], [place], [address], [facility] 07/05/2021 12:25:27 Td (adult), 2 Lf tetanus toxoid, preservative free, adsorbed 4 completed Favio Montalvo MD [address] [place] [address],[address], [place], [address], [facility] 07/05/2021 12:25:27 Influenza, high-dose, trivalent, PF 5 completed Favio Montalvo MD [address] [place] [address],[address], [place], [address], [facility] 07/05/2021 12:25:27 pneumococcal polysaccharide PPV23 7 completed Favio Montalvo MD [address] [place] [address],[address], [place], [address], [facility] 07/05/2021 12:25:27 Pneumococcal conjugate PCV 13 5 completed Favio Montalvo MD [address] [place] [address],[address], [place], [address], [facility] 07/05/2021 12:25:27 Influenza, split virus, quadrivalent, PF 0 completed Favio Montalvo MD [address] [place] [address],[address], [place], [address], [facility] 07/05/2021 12:25:27 Influenza, adjuvanted, trivalent, PF 8 completed Favio Montalvo MD [address] [place] [address],[facility] [address], [place], [address], [facility] 07/05/2021 12:25:27 Influenza, split virus, trivalent, preservative 2 completed Favio Montalvo MD [address] [place] [address],[address], [place], [address], [facility] 07/05/2021 12:25:27 Td (adult), 2 Lf tetanus toxoid, preservative free, adsorbed 8 completed Favio Montalvo MD [address] [place] [address],[address], [place], [address], [facility] 07/05/2021 12:25:27 Influenza, split virus, trivalent, preservative 3 completed Favio Montalvo MD [address] [place] [address],[address], [place], [address], [facility] 07/05/2021 12:25:27 pneumococcal polysaccharide PPV23 8 completed Favio Montalvo MD [address] [place] [address],[address], [address], [facility] 07/05/2021 12:25:27 Influenza, adjuvanted, quadrivalent, PF 1 completed Favio Montalvo MD [address] [place] [address],[address], [place], [address], [facility] 07/05/2021 12:25:27 Influenza, split virus, trivalent, preservative 1 completed Favio Montalvo MD [address] [place] [address],[address], [place], [address], [facility] 07/05/2021 12:25:27 COVID-19, mRNA, LNP-S, PF, 30 mcg/0.3 mL dose 1 completed Favio Montalvo MD [address] [place] [address],[address], [address], [facility] 07/05/2021 12:25:27 Influenza, adjuvanted, trivalent, PF 7 completed Favio Montalvo MD [address] [place] [address],[facility] [address], [address], [facility] 07/05/2021 12:25:27 Hep A, adult 4 completed Fvaio Montalvo MD [address] [place] [address],[address], [place], [address], [facility] 07/05/2021 12:25:27 Td (adult), 5 Lf tetanus toxoid, preservative free, adsorbed 9 completed Favio Montalvo MD [address] [place] [address],[address], [place], [address], [facility] 07/05/2021 12:25:27 Influenza, split virus, trivalent, preservative 3 completed Favio Montalvo MD [address] [place] [address],[address], [place], [address], [facility] 07/05/2021 12:25:27 Td (adult), 2 Lf tetanus toxoid, preservative free, adsorbed 5 completed Favio Montalvo MD [address] [place] [address],[address], [place], [address], [facility] 07/05/2021 12:25:27 Influenza, split virus, trivalent, preservative 0 completed Favio Montalvo MD [address] [place] [address],[address], [place], [address], [facility] 07/05/2021 12:25:27 COVID-19, mRNA, LNP-S, PF, 30 mcg/0.3 mL dose 1 completed Favio Montalvo MD [address] [place] [address],[address], [place], [address], [facility] 07/05/2021 12:25:27 COVID-19, mRNA, LNP-S, bivalent, PF, 30 mcg/0.3 mL dose 2 [facility] 12/06/2022 14:16:47 Past Encounters Encounter ID Performer Location Encounter Start Date Encounter Closed Date Diagnosis/Indication Diagnosis SNOMED-CT Code Diagnosis ICD10 Code Diagnosis Note [id number] Favio Montalvo MD [facility] [address] [address] [place] [address] 07/05/2021 12:04:29 07/09/2021 13:18:18 Incontinence 36971936 R32 Urge incon tinence of urine 52492564 N39.41 [id number] Favio Montalvo MD [facility] [address] [address] [place] [address] 08/21/2021 14:17:28 08/24/2021 16:43:35 Incontinence 26581806 R32 Increased frequency of urination 454287790 R35.0 [id number] Favio Montalvo MD [facility] [address] [place] [address] 10/30/2021 14:41:21 11/02/2021 12:36:58 Incontinence 81569666 R32 Overactive urinary bladder 028395823 N32.81 [id number] Favio Montalvo MD _[facility] [address] [place] [address] 01/29/2022 11:43:59 02/04/2022 14:09:05 Overactive urinary bladder 680323075 N32.81 [id number] Favio Montalvo MD [facility] [address] [place] [address] 10/17/2022 10:33:10 10/18/2022 16:52:40 Overactive urinary bladder 897353080 N32.81 [id number] Favio Montalvo MD _[facility] [address] [place] [address] 01/28/2023 14:27:53 02/03/2023 13:20:07 Overactive urinary bladder 262035489 N32.81 [id number] Favio Montalvo MD [facility] [address] [place] [address] 03/26/2023 13:12:53 03/28/2023 11:30:16 Overactive urinary bladder 770501314 N32.81 Health Concerns Section Related Observation LastModified by Organization Detai ls LastModified Time None Recorded Concern Status LastModified by Organization Details LastModified Time None Recorded Advance Directives Directive None Recorded Payers Insurance Date Sequence Insurance Name Policy Number Policy Butts Covered Member ID Butts Member ID Guarantor Name 04/17/2023 2 [place] [employer] Alyx Sarmiento [id number] Alyx Sarmiento 04/19/2023 1 [place] [id number] Alyx Sarmiento [id number] Alyx Sarmiento 04/17/2023 2 [place] 1 Alyx Sarmiento [id number] Alyx Sarmiento 04/17/2023 1 [place] [id number] Alyx Sarmiento [id number] Alyx Sarmiento Notes Date Note Type Note Provider Name and Address Organization Details Recorded Time 10/30/2021 text/html follow up gemtesa. off med for two weeks but freq/urgency came back. UA bland and PVR 295ml today. Favio Montalvo MD [address] [place] [address],[address] [place] [address], [address], [facility] 10/30/2021 15:09:16 01/29/2022 text/html taking gemtesa and working well, out of samples. PVR 19ml today. Favio Montalvo MD [address] [place] [address],[address], [place], [address], [facility] 01/29/2022 12:06:07 10/17/2022 text/html follow up O[facility]. was on gemtesa which worked and now having more accidents. PVR 0ml today. now living a assisted care who manages meds etc. Favio Montalvo MD [address] [place] [address],[address], [place], [address], [facility] 10/17/2022 11:10:30 01/28/2023 text/html follow up incontinence. tried gemtesa and now oxybutynin ER 10mg and neither worked. Mario sheth [facility] 01/28/2023 14:52:49 03/26/2023 text/html 88 YO F here for UDS testing- pt of TF Giovanna sheth [facility] 03/26/2023 15:44:35 OBGyn Episode No OBEpisode recorded.
--- NOTE | 2024-09-04 06:30 | CRLHL7_ITS ---
For Patients: As a result of the Century Cures Act, medical imaging exams and procedure reports are released immediately into your electronic medical record. You may view this report before your referring provider. If you have questions, please contact your health care provider. INDICATION: Fall, head trauma, dementia, altered mental status. TECHNIQUE: CT head without contrast. COMPARISON: 07/10/2024. FINDINGS: CSF spaces: Within normal limits for age. Brain parenchyma and extra-axial spaces: The rain-white differentiation is normal. No sign of mass, hemorrhage, or midline shift. No extra-axial fluid collection. Skull base and calvarium: The visualized paranasal sinuses and mastoid air cells demonstrate no acute or significant findings. The visualized orbits are grossly unremarkable. No skull fractures. IMPRESSION: Unremarkable noncontrast head CT. No sign of acute injury or other significant abnormality. Please note that all CT scans at this facility use dose modulation, iterative reconstruction, and/or weight-based dosing when appropriate to reduce radiation dose to as low as reasonably achievable. Dictated by Jim Iyer MD @ 09/04/2024 7:35:45 AM (Electronically Signed)
--- NOTE | 2024-09-04 06:30 | CRLHL7_ITS ---
For Patients: As a result of the Century Cures Act, medical imaging exams and procedure reports are released immediately into your electronic medical record. You may view this report before your referring provider. If you have questions, please contact your health care provider. INDICATION: Trauma, fall with right rib pain. TECHNIQUE: CT chest, abdomen and pelvis acquired with 89 cc Isovue 370 IV contrast. COMPARISON: CT chest July 10, 2024. CT chest abdomen pelvis June 27, 2022. FINDINGS: CHEST: Cardiovascular structures: There is cardiomegaly. Moderately dilated pulmonary artery suggesting pulmonary arterial hypertension. Coronary artery atherosclerosis is present. Mediastinum and josesito: No mass or adenopathy. Lungs and pleura: Previously seen masslike consolidation in the right upper lobe has almost completely resolved. However, there are new masslike consolidations in the right lower and middle lobes and left lower lobe. Trace pleural effusions. No pneumothorax. Chest wall and axilla: No mass or adenopathy. Bones: Acute nondisplaced fracture of the posterolateral right 8th rib series 6, image 54. No other acute findings. ABDOMEN AND PELVIS: Liver: Unremarkable. No sign of acute injury. Gallbladder and bile ducts: Gallbladder is not visualized. No biliary dilatation. Pancreas: Unremarkable. Spleen: Unremarkable. No sign of acute injury. Adrenal glands: Unchanged bilateral adrenal gland enlargement. Kidneys: Unremarkable. GI tract: Severe distal colonic diverticulosis. Otherwise unremarkable. Vascular structures: Unremarkable. Mesenteric arteries are patent. Lymph nodes: Unremarkable. Miscellaneous: Unremarkable. No free air or significant free fluid. Pelvic Organs: Unremarkable. Bones: Severe chronic compression fracture of the L1 vertebral body. No acute findings. IMPRESSION: 1. Acute nondisplaced fracture of the right 8th rib. 2. No other signs of acute injury. 3. Near complete interval resolution of the previously seen masslike consolidation in the right upper lobe. However, there are new masslike consolidations in both lower lobes and right middle lobe. Please note that all CT scans at this facility use dose modulation, iterative reconstruction, and/or weight-based dosing when appropriate to reduce radiation dose to as low as reasonably achievable. Dictated by Jim Iyer MD @ 09/04/2024 7:48:45 AM (Electronically Signed)
--- NOTE | 2024-09-04 06:30 | CRLHL7_ITS ---
For Patients: As a result of the Century Cures Act, medical imaging exams and procedure reports are released immediately into your electronic medical record. You may view this report before your referring provider. If you have questions, please contact your health care provider. Indication: Trauma, fall with wrist pain. Technique: Right wrist 3 views. Comparison: None. Findings/Impression: Bones: Alignment is normal. No fractures or bone lesions. No sign of acute injury. 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 Soft tissues: Dense atherosclerosis. Dictated by Jim Iyer MD @ 09/04/2024 7:00:30 AM (Electronically Signed)
--- NOTE | 2024-09-04 06:31 | CRLHL7_ITS ---
For Patients: As a result of the Century Cures Act, medical imaging exams and procedure reports are released immediately into your electronic medical record. You may view this report before your referring provider. If you have questions, please contact your health care provider. INDICATION: Trauma, fall with neck pain. TECHNIQUE: CT cervical spine without contrast. COMPARISON: 07/10/2024. FINDINGS: Vertebrae: Alignment is normal. There are no fractures or suspicious bony lesions. Discs and facet joints: There are diffuse degenerative changes in the disc spaces and facet joints. Extraspinal findings: Paraspinous soft tissues are unremarkable. IMPRESSION: 1. No sign of acute injury. 2. Multilevel degenerative spondylosis. Please note that all CT scans at this facility use dose modulation, iterative reconstruction, and/or weight-based dosing when appropriate to reduce radiation dose to as low as reasonably achievable. Dictated by Jim Iyer MD @ 09/04/2024 7:39:07 AM (Electronically Signed)
--- OUTSIDE RECORDS SUMMARY | 2024-09-04 06:41 | XMS_ITS | Clinical Summary ---
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 Name Role Phone Narendra Ricardo MD Conditions or Problems Problem Name Problem Code Onset Date Status Entry Date Provider Comment Standard Description Annotate Gait imbalance 481588661 (SNOMED CT) 04/11 Active 04/11 Narendra Ricardo MD Abnormal gait due to impairment of balance Dementia 69782278 (SNOMED CT) 04/11 Active 04/11 Narendra Ricardo MD Dementia Hypertension 92101983 (SNOMED CT) 09/26 Active 09/26 Narendra Ricardo MD Hypertensive disorder Type 2 diabetes mellitus 65556319 (SNOMED CT) 09/26 Active 09/26 Narendra Ricardo MD Type 2 diabetes mellitus Depression NOS 61890143 (SNOMED CT) 04/13 Active 04/22 Suni Begum PsyD Depressive disorder Mild cognitive impairment 047266845 (SNOMED CT) 04/13 Active 04/22 Suni Begum PsyD Mild neurocognitive disorder Memory loss 97234213 (SNOMED CT) 07/17 Active 07/17 Narendra Ricardo MD Amnesia MIGRAINE VARIANT, 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 (ICD-9-CM) 08/10 Active 08/10 Dick Rashid DO Variants of migraine, not elsewhere classified, without mention of intractable migraine, without mention of status migrainosus HEADACHE 71339745 (SNOMED CT) 08/10 Active 08/10 Dick Michaelsrel DO Headache Medications Medication Instructions Start Date Stop Date Generic Name FORMERLY NAMED [facility] Provider DONEPEZIL HCL 10 MG TABS Take 1 tablet by mouth once a day 04/22 donepezil 86481561342 Laila Dinanetfali Aguirreil PA-C DONEPEZIL HCL 23 MG TABS Take 1 tablet by mouth once a day 04/11 donepezil 96543895604 Elva Underwood RN, BSN DONEPEZIL HCL 10 MG TABS Take 1 tablet by mouth once a day 04/11 donepezil 38142768699 Narendra Ricardo MD DONEPEZIL HCL 23 MG TABS Take 1 tablet by mouth once a day 04/11 donepezil 68418796109 Narendra Ricardo MD QUETIAPINE FUMARATE 25 MG TABS take 1 tab by mouth at bedtime 11/13 quetiapine 73793645655 Laila Larkin PA-C VALSARTAN twice a day 10/09 DIOVAN Laila Larkin PA-C ASPIRIN 325 MG TABS once a day 10/09 aspirin 87370338986 Laila Larkin PA-C HYDROCHLOROTHIAZIDE 25 MG TABS once a day 10/09 hydrochlorothiazi de 55816459112 Laila Aguirreil PA-C TEMAZEPAM 30 MG CAPS Bedtime 10/09 temazepam 51446653261 Laila Larkin PA-C HYDROCODONE-ACETAMIN OPHEN 5-325 MG TABS every six hours as needed 10/09 hydrocodone-aceta minophen 82561267627 Laila Aguirreil PA-C POTASSIUM CHLORIDE ER 10 MEQ CR-CAPS twice a day 10/09 potassium chloride 16577938989 Laila Aguirreil PA-C DIAZEPAM 5 MG TABS 1 tablet by mouth 07/23 diazepam 65607297324 Laila Aguirreil PA-C METFORMIN HCL 500 MG TABS 10/09 metformin 07265085537 Laila Aguirreil PA-C FLUTICASONE PROPIONATE HFA 10/09 FLOVENT HFA [facility] THIAMINE HCL once a day 10/09 THIAMINE [facility] INSULIN ISOPHANE twice a day 10/09 HUMAN Laila Dina Trae NEAL TIOTROPIUM BROMIDE MONOHYDRATE once a day 10/09 SPIRIVA HANDIHALER [facility] SENNOSIDES 8.6 MG TABS twice a day as needed 10/09 SENNOSIDES [facility] POTASSIUM CHLORIDE ER 10 MEQ CR-TABS 10/09 potassium chloride 85581736698 [facility] ALBUTEROL SULFATE HFA 108 (90 Base) MCG/ACT AERS every four hours as needed 10/09 albuterol sulfate 00129886179 [facility] CALCIUM/C/D 500-10-250 MG-MG-UNIT CHEW calcium carbonate 31084558339 [facility] Dina Cherjoseva ÁNGEL VITAMIN D3 25 MCG (1000 UT) TABS cholecalciferol (vitamin d3) 87604842272 [facility] Dina Cherjoseva ÁNGEL TRELEGY ELLIPTA 200-62.5-25 MCG/ACT AEPB fluticasone-umec l idin-vilanter 48468569134 [facility] DIAZEPAM 5 MG TABS 1 tablet by mouth 07/23 diazepam 68680016368 Narendra Ricardo MD SENNOSIDES 8.6 MG TABS twice a day as needed 10/09 SENNOSIDES Narendra Ricardo MD BISACODYL 10 MG SUPP once a day as needed 04/11 bisacodyl 43657572738 Narendra Ricardo MD VALSARTAN twice a day 10/09 DIOVAN Narendra Ricardo MD VITAMIN B-12 500 MCG TABS once a day cyanocobalamin (vitamin b-12) 49803045485 Narendra Ricardo MD LEVOFLOXACIN 500 MG TABS null 04/11 levofloxacin 21581849370 Narendra Ricardo MD HYDROCHLOROTHIAZIDE 25 MG TABS once a day hydrochlorothiaz i de 01640052197 Narendra Ricardo MD POTASSIUM CHLORIDE ER 10 MEQ CR-CAPS twice a day 08/13 potassium chloride 82387899707 Narendra Ricardo MD TIOTROPIUM BROMIDE MONOHYDRATE once a day 10/09 SPIRIVA HANDIHALER Narendra Ricardo MD ASPIRIN 325 MG TABS once a day 10/09 aspirin 87465018253 Narendra Ricardo MD GLIPIZIDE 10 MG TABS once a day 04/11 glipizide 25182099007 Narendra Ricardo MD CO Q-10 300 MG CAPS once a day coenzyme q10 6037 6785404 Narendra Ricardo MD IRBESARTAN 300 MG TABS twice a day irbesartan 15007138180 Narendra Ricardo MD THIAMINE HCL once a day 10/09 THIAMINE Narendra Ricardo MD DONEPEZIL HCL 5 MG TABS 04/11 donepezil 37872911874 Narendra Ricardo MD NYSTATIN 615125 UNIT/GM CREA 2-3X/Day 04/11 nystatin 88489576289 Narendra Ricardo MD CLONIDINE HCL 0.3 MG TABS three times a day 04/11 clonidine hcl 82262511184 Narendra Ricardo MD ALBUTEROL SULFATE HFA 108 (90 Base) MCG/ACT AERS every four hours as needed 10/09 albuterol sulfate 59711606005 Narendra Ricardo MD FUROSEMIDE 20 MG TABS once a day 04/11 furosemide 97302897186 Narendra Ricardo MD CLOPIDOGREL BISULFATE 75 MG TABS once a day 04/11 clopidogrel 53492210910 Narendra Ricardo MD INSULIN ISOPHANE twice a day 10/09 HUMAN Narendra Ricardo MD TEMAZEPAM 30 MG CAPS Bedtime 10/09 temazepam 00061936213 Narendra Ricardo MD NAPROXEN SODIUM 220 MG TABS twice a day 04/11 naproxen sodium 63239388619 Narendra Ricardo MD BUMETANIDE 0.5 MG TABS twice a day 04/11 bumetanide 15984601272 Narendra Ricardo MD HYDROCODONE-ACETAMIN OPHEN 5-325 MG TABS every six hours as needed 10/09 hydrocodone-aceta minophen 75585301791 aNrendra Ricardo MD WARFARIN SODIUM 1 MG TABS once a day 04/11 warfarin 91502227176 Narendra Ricardo MD FLUTICASONE PROPIONATE HFA 10/09 FLOVENT HFA Narendra Ricardo MD HYDROCHLOROTHIAZIDE 25 MG TABS once a day 10/09 hydrochlorothiazi de 00815047797 Narendra Ricardo MD DONEPEZIL HCL 10 MG TABS Take 1 tablet by mouth once a day 04/11 donepezil 89382670136 Narendra Ricardo MD DONEPEZIL HCL 5 MG TABS 04/11 donepezil 73723523911 Narendra Ricardo MD METFORMIN HCL 500 MG TABS 10/09 metformin 56298238325 Narendra Ricardo MD LANTUS SOLOSTAR 100 UNIT/ML SOPN insulin glargine 09814012705 Samira Ricardo MD POTASSIUM CHLORIDE ER 10 MEQ CR-TABS 10/09 potassium chloride 21438805267 Narendra Ricardo MD FLUOXETINE HCL 10 MG CAPS fluoxetine 21491072296 Narendra Ricardo MD DIAZEPAM 5 MG TABS One tab po 30min before scan. July repeat x 1. 07/23 DIAZEPAM 01225648490 Narendra Ricardo MD WARFARIN SODIUM 1 MG TABS Daily 04/11 WARFARIN SODIUM 1 MG ORAL TABLET 20236300174 System Maintenance VALSARTAN (DIOVAN) 160 MG TAB, [...] Bedtime 04/11 TEMAZEPAM 30 MG ORAL CAPSULE 13718986545 System Maintenance SENNOSIDES 8.6 MG TABS Twice A Day as needed 04/11 SENNOSIDES, FCI 8.6 MG ORAL TABLET 33285760978 System Maintenance POTASSIUM CHLORIDE ER 10 MEQ CR-CAPS Twice A Day 08/13 POTASSIUM CHLORIDE 10 MEQ EXTENDED RELEASE ORAL CAPSULE 57104894665 System Maintenance NYSTATIN 087264 UNIT/GM CREA 2-3X/Day 08/13 NYSTATIN 754715 UNT/ML TOPICAL CREAM 41936528958 System Maintenance NAPROXEN SODIUM 220 MG TABS Twice A Day 08/13 NAPROXEN SODIUM 220 MG ORAL TABLET 04486473962 System Maintenance LEVOFLOXACIN 500 MG TABS null 04/11 LEVOFLOXACIN 500 MG ORAL TABLET 82138789662 System Maintenance IRBESARTAN 300 MG TABS Twice A Day 04/11 IRBESARTAN 300 MG ORAL TABLET 95557750985 System Maintenance INSULIN ISOPHANE (HUMAN) (NOVOLIN N RELION) RELION INJ, 15-25 UNIT SUBCUTANEOUSL Twice A Day 04/11 INSULIN HUMAN, ISOPHANE 100 UNT/ML INJECTABLE SUSPENSION System Maintenance HYDROCHLOROTHIAZIDE 25 MG TABS Daily 04/11 HYDROCHLOROTHIAZI DE 25 MG ORAL TABLET 52012182430 System Maintenance HYDROCHLOROTHIAZIDE 25 MG TABS Daily 04/11 HYDROCHLOROTHIAZI DE 25 MG ORAL TABLET 85711386744 System Maintenance GLIPIZIDE 10 MG TABS Daily 04/11 GLIPIZIDE 10 MG ORAL TABLET 05002023568 System Maintenance FUROSEMIDE 20 MG TABS Daily 04/11 FUROSEMIDE 20 MG ORAL TABLET 12392976510 System Maintenance FLUTICASONE PROPIONATE HFA (FLOVENT HFA) 220 MCG/ACT AER 04/11 120 ACTUAT FLUTICASONE PROPIONATE 0.22 MG/ACTUAT METERED DOS System Maintenance B-12 500 MCG TABS Daily 04/11 VITAMIN B 12 0.5 MG ORAL TABLET 11985154019 System Maintenance CO Q-10 300 MG CAPS Daily 04/11 COENZYME Q10 300 MG ORAL CAPSULE 28609904696 System Maintenance CLOPIDOGREL BISULFATE 75 MG TABS Daily 04/11 CLOPIDOGREL 75 MG ORAL TABLET 21788904705 System Maintenance CLONIDINE HCL 0.3 MG TABS Three Times A Day 04/11 CLONIDINE HYDROCHLORIDE 0.3 MG ORAL TABLET 32632280679 System Maintenance BUMETANIDE 0.5 MG TABS Twice A Day 08/13 BUMETANIDE 0.5 MG ORAL TABLET 50045107878 System Maintenance BISACODYL LAXATIVE 10 MG SUPP Daily as needed 04/11 BISACODYL 10 MG RECTAL SUPPOSITORY 50990791385 System Maintenance ASPIRIN 325 MG TABS Daily 04/11 ASPIRIN 325 MG ORAL TABLET 92968727969 System Maintenance ALBUTEROL SULFATE HFA 108 (90 Base) MCG/ACT AERS Every 4 Hours as needed 04/11 200 ACTUAT ALBUTEROL 0.09 MG/ACTUAT METERED DOSE INHALER 24168488355 System Maintenance HYDROCODONE-ACETAMIN OPHEN 5-325 MG TABS Every 6 Hours as needed 04/11 ACETAMINOPHEN 325 MG / HYDROCODONE BITARTRATE 5 MG ORAL TABL 60458217903 System Maintenance Medications Administered No information available. 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 Replaced Document: (P) T4, F REE, TSH, VITAMIN B12 B-12 * pg/mL Cobalamin (Vitamin B12) [Mass/volume] in Serum or Plasma TSH 1.75 u[iU]/mL 0.40-4.50 N Thyrotropi n [Units/volume] in Serum or Plasma FRT4 1.0 0.8-1.8 N FREE T4 Internal Other: Verbal Autho rization/Emergency Contact - OBS VERBAL_EMER DONE Verbal authorization and emergency contact External Correspondence: [facility] Directive/Healthcare power of president - OBS AD DISCUSSED Advanced care planning discussed Advanced directive discussed w/member/caregive r; Patient received counseling regarding palliation - symptom management - end of life decisions Office Visit: Office Visit f ax DEMENTIA2 Assessment of cognition performed and results reviewed. Total score [MMSE] [id number] Mild Total scor e [MoCA] MMSE SCORE [...] Detail Appointment 01:00 PM Laila Larkin PA-C, [address] [place] [address], [address], [place], [address], Pending order Follow up DOUGLAS Pending order [...] Date ORDERS Follow up [facility]-[id number] Documentation of current medicatio ns [facility]-[id number] Documentation of current medicatio ns ORDERS Patient Instructions ORDERS Patient Instructions LOINC 64536-1 MMSE ORDERS Follow up DOUGLAS ORDERS Patient Instructions SCT-[id number] Documentation of current medicatio ns ORDERS Follow up LOINC 36303-6 MMSE ORDERS Obtain outside records 04/11 ORDERS Follow up DOUGLAS in clinic or telemedicine 2 LOINC 47937-4 MMSE ORDERS Patient Instructions SCT-[id number] Documentation of current medicatio ns ORDERS Patient Instructions ORDERS Occupational Therapy SCT-[id number] Documentation of current medicatio ns CPT-86952 Free Service ORDERS Follow up telemedicine 11/28 ORDERS Neuropsychology Evaluation 2 ORDERS Patient Instructions [facility]-[id number] Documentation of current medicatio ns ORDERS Follow up ORDERS Patient Instructions ORDERS Patient Instructions SCT-[id number] Documentation of current medicatio ns ORDERS Follow up DOUGLAS [id number] Consult [facility]-[id number] Documentation of current medicatio ns ORDERS Patient Instructions ORDERS Follow up CPT-47408 Npsy Interp/Rpt by Provider - 1st hour 20 29/03/06 ORDERS Neuropsych Testing 0 CPT-12689 Npsy Interview w/Provider - 1st hour 2018 CPT-73325 Npsy Interp/Rpt by Provider - 1st hour 20 26/02/04 CPT-70033 Npsy Interp/Rpt by Provider - 2 hours 201 11/20/03 CPT-14708 Npsy Test by Tech (2+ Tests) - 1st 30 min CPT-85768 Npsy Test by Tech (2+ Tests) - 1.5 hours CPT-22320 MRI Brain W/O [id number] MRI-Brain W/O [facility]-[id number] Documentation of current medicatio ns ORDERS Patient [...]
[2024-09-04 06:45] LABS: Lactate* 0.6 mmol/L (0.5-1.9)
[2024-09-04 06:47] LABS: Basophils Percent Auto 0.7 % (0.0-3.0); Eosinophils Percent Auto 2.2 % (0.0-7.0); Hematocrit 39.5 % (33.0-51.0); Hemoglobin* 12.7 gm/dL (12.0-16.0); Immature Granulocytes Pct Auto 0.7 %; Lymphocytes Percent Auto 17.2 % (20-44); Mean Corpuscular HGB Conc 32 gm/dL (32-36); Mean Corpuscular Hemoglobin 31 pg (26-34); Mean Corpuscular Volume 97 fL (80-100); Monocytes Percent Auto 12.8 % (0.0-11.0); Neutrophils Percent Auto 66.4 % (42.0-72.0); Platelet Count* 213 K/uL (140-440); RDW Coefficient of Variation % 15.2 % (11.5-15.5); Red Blood Count 4.09 m/uL (4.00-5.20); White Blood Count* 4.47 K/uL (4.50-11.00)
[2024-09-04 06:50] LABS: Slide Review Reflex No
--- NOTE | 2024-09-04 07:06 | ED.GENADULT ---
HPI - General Adult General Date Seen: 09/04/24 Chief complaint: Fall/Minor Trauma Stated complaint: Fall Time Seen by Provider: 09/04/24 06:29 History of Present Illness HPI narrative: History is limited by patient dementia and altered mental status. History is obtained from paramedics who transported the patient in from her care unit. 89-year-old female with a known history of dementia from a memory care unit like [facility] brought to the ER this morning for evaluation of injuries after a fall. Per medics report the patient was walking with her walker. She was supposed to turn with her walker 1 direction but she accidentally turned the wrong way. The walker got caught on something and she lost her balance and fell. She landed on the right side mostly. She has a little bit of swelling on her right upper eye brown right eyelid. No laceration. No other signs of head trauma. She was placed into a C-collar because of other injuries. She is complaining of right rib pain in the feel though there is some right rib crepitus. She also had some right wrist pain so she was placed into with Riccardo splint. Paramedics think that she is probably on an anticoagulant such as clopidogrel but they are not sure. They says she has a long list of allergies and short list of meds. The paramedics wonder if her allergies and meds have been inadvertently flipped on her paperwork. For her part the patient is awake. She answers simple questions but cannot really tell me what happened this morning. She is not oriented to date. She knows her name and she knows she is at the hospital. It is unclear if this is her baseline with her dementia or if this is an acute change. Paramedics report that she has had recent falls an. She recently stayed in a TCU and was just discharged from the TCU back to her memory care a couple of days ago. In review over [facility] medical record I see that she was here in the ER on 07/10/2024 after a fall. Med list at that time included donepezil, irbesartan, hydrochlorothiazide, insulin, donepezil, quetiapine, oxybutynin, fluticasone nasal spray. Per the exam notes from her previous visit it looks like she was sitting up with her eyes closed, similar to her mental status for today. Workup showed a white count of 4.2, hemoglobin 15 crit count 173. Sodium 140, potassium 3.7. BUN 17, creatinine 0.7. AST 37, ALT 27, total bili 1.1. CT scan of her cervical spine showed no fractures. CT scan of her head showed no acute intracranial abnormality. She was found to a have AFib but during that ER visit. Ultimately after consideration of risks and benefits, it was elected not to anticoagulate her. She was hospitalized for pneumonia. Also possible lung cancer with a 3.6 cm masslike consolidation in the right apex. Needs three-month follow-up chest CT Related Data Home Medications ?Medication ?Instructions ?Recorded ?Confirmed coenzyme Q10 300 mg capsule 300 mg PO DAILY 11/01/21 07/11/24 albuterol sulfate 90 mcg/actuation See Rx Instructions .Route 06/26/22 07/11/24 aerosol inhaler .COMPLEX PRN calcium carbonate 500 mg PO DAILY 08/28/22 07/13/24 cholecalciferol (vitamin D3) 25 25 mcg PO DAILY 08/28/22 07/11/24 mcg (1,000 unit) capsule donepezil 10 mg tablet 10 mg PO DAILY 11/20/23 07/11/24 fluoxetine 10 mg capsule 10 mg PO DAILY 07/11/24 07/11/24 insulin glargine 100 unit/mL (3 10 unit subcut HS 07/11/24 07/11/24 mL) subcutaneous pen (Lantus Solostar U-100 Insulin) irbesartan 150 mg tablet 150 mg PO BID 07/11/24 07/12/24 oxybutynin chloride 10 mg 10 mg PO DAILY 07/11/24 07/11/24 tablet,extended release 24 hr potassium chloride 10 mEq 10 meq PO DAILY 07/11/24 07/11/24 tablet,extended release(part/cryst) quetiapine 25 mg tablet 25 mg PO HS 07/11/24 07/11/24 Previous Rx's ?Medication ?Instructions ?Recorded fluticasone fur. 200 mcg-umeclid 1 inh inhalation Q24H #60 ea 11/14/21 62.5 mcg-vilant 25 mcg inhalat.powder (Trelegy Ellipta) hydrochlorothiazide 25 mg tablet 25 mg PO QAM #90 tabs 09/03/22 acetaminophen 500 mg capsule 1,000 mg (2 x 500 mg) PO Q4-6H PRN 02/13/23 pain #30 caps blood sugar diagnostic (Contour #100 ea 01/21/24 Next Test Strips) carvedilol 6.25 mg tablet 6.25 mg PO BID #60 tabs 07/13/24 doxycycline hyclate 100 mg tablet 100 mg PO BID #14 tabs 07/13/24 Allergies Allergy/AdvReac Type Severity Reaction Status Date / Time amlodipine Allergy Severe Rash Verified 07/10/24 19:15 azithromycin Allergy Severe Limb pain, Verified 07/10/24 19:15 diarrhea furosemide Allergy Severe Hives Verified 07/10/24 19:15 metoprolol Allergy Severe Shortness Verified 07/10/24 19:15 of breath, chest pain, low pulse rate sitagliptin Allergy Severe Lost some Verified 07/10/24 19:15 sight in left eye exenatide Allergy Intermediate Sore Verified 07/10/24 19:15 throat, diarrhea, cough, headache levofloxacin Allergy Intermediate Bruising Verified 07/10/24 19:15 clopidogrel Allergy Mild Edema Verified 07/10/24 19:15 losartan Allergy Unknown Heart Verified 07/10/24 19:15 palpitations, shortness of breath penicillin V Allergy Unknown Verified 07/10/24 19:15 insulin detemir (From Allergy Verified 07/10/24 19:15 Levemir U-100 Insulin) metformin Allergy Verified 07/10/24 19:15 naproxen Allergy Verified 07/10/24 19:15 NSAIDS (Non-Steroidal Allergy Verified 07/10/24 19:15 Anti-Inflamma lisinopril AdvReac Severe Headaches, Verified 07/10/24 19:15 heart palpitations, muscle aches pioglitazone AdvReac Severe Hip and Verified 07/10/24 19:15 arm pain carvedilol AdvReac Mild Vomiting Verified 07/10/24 19:15 simvastatin AdvReac Unknown Fatigued Verified 07/10/24 19:15 [facility] Medical History (Updated 09/04/24 @ 08:13 by Wilberto Thurman MD) Type 2 diabetes mellitus (09/26/11) ?E11.9 - Type 2 diabetes mellitus without complications (ICD-10) Obstructive sleep apnea syndrome ?G47.33 - Obstructive sleep apnea (adult) (pediatric) (ICD-10) Urinary incontinence ?R32 - Unspecified urinary incontinence (ICD-10) Venous insufficiency of both lower extremities ?I87.2 - Venous insufficiency (chronic) (peripheral) (ICD-10) Transient ischemic attack (TIA) ?G45.9 - Transient cerebral ischemic attack, unspecified (ICD-10) Statin intolerance (02/13/12) ?Z78.9 - Other specified health status (ICD-10) Pulmonary embolism ?I26.99 - Other pulmonary embolism without acute cor pulmonale (ICD-10) Squamous cell carcinoma (09/26/11) Osteopenia ?M85.80 - Other specified disorders of bone density and structure, unspecified site (ICD-10) Malignant neoplasm of breast (09/26/11) ?C50.919 - Malignant neoplasm of unspecified site of unspecified female breast (ICD-10) Malignant melanoma of skin (09/26/11) ?C43.9 - Malignant melanoma of skin, unspecified (ICD-10) Ischemic stroke (02/13/12) ?I63.9 - Cerebral infarction, unspecified (ICD-10) Hypertension (09/26/11) ?I10 - Essential (primary) hypertension (ICD-10) Heart failure with preserved ejection fraction ?I50.30 - Unspecified diastolic (congestive) heart failure (ICD-10) Health care directive on file (08/15/14) ?Z78.9 - Other specified health status (ICD-10) Compression fracture of L1 vertebra ?S32.010A - Wedge compression fracture of first lumbar vertebra, initial encounter for closed fracture (ICD-10) Fall ?W19.XXXA - Unspecified fall, initial encounter (ICD-10) Atrial fibrillation ?I48.91 - Unspecified atrial fibrillation (ICD-10) Lung mass ?R91.8 - Other nonspecific abnormal finding of lung field (ICD-10) Living in assisted living ?Z78.9 - Other specified health status (ICD-10) Cellulitis, toe ?L03.039 - Cellulitis of unspecified toe (ICD-10) Falls ?R29.6 - Repeated falls (ICD-10) Pain in toe ?M79.676 - Pain in unspecified toe(s) (ICD-10) Iron deficiency anemia ?D50.9 - Iron deficiency anemia, unspecified (ICD-10) Anemia ?D64.9 - Anemia, unspecified (ICD-10) POLST (Physician Orders for Life-Sustaining Treatment) ?Z78.9 - Other specified health status (ICD-10) Visit for review of DEXA scan ?Z71.2 - Person consulting for explanation of examination or test findings (ICD-10) Rib fracture ?S22.39XA - Fracture of one rib, unspecified side, initial encounter for closed fracture (ICD-10) Atherosclerotic heart disease ?I25.10 - Atherosclerotic heart disease of [place] coronary artery without angina pectoris (ICD-10) Compression fracture Hearing loss ?H91.90 - Unspecified hearing loss, unspecified ear (ICD-10) 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 or stenosis of small artery (ICD-10) Hyperlipidemia ?E78.5 - Hyperlipidemia, unspecified (ICD-10) Depression ?F32.A - Depression, unspecified (ICD-10) Encounter for screening for severe acute respiratory syndrome coronavirus 2 (SARS-CoV-2) infection ?Z11.52 - Encounter for screening for COVID-19 (ICD-10) Edema ?R60.9 - Edema, unspecified (ICD-10) Diabetes mellitus ?E11.9 - Type 2 diabetes mellitus without complications (ICD-10) Surgical History 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 - Presence of right artificial shoulder joint (ICD-10) 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 (09/26/11) ?Z90.710 - Acquired absence of both cervix and uterus (ICD-10) ?Z90.722 - Acquired absence of ovaries, bilateral (ICD-10) ?Z90.79 - Acquired absence of other genital organ(s) (ICD-10) Status post reverse total replacement of left shoulder ?Z96.612 - Presence of left artificial shoulder joint (ICD-10) 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) ?Z96.651 - Presence of right artificial knee joint (ICD-10) History of partial surgical removal of colon (09/26/11) ?Z90.49 - Acquired absence of other specified parts of digestive tract (ICD-10) History of colonoscopy ?Z98.890 - Other specified postprocedural states (ICD-10) History of cholecystectomy (09/26/11) ?Z90.49 - Acquired absence of other specified parts of digestive tract (ICD-10) Family History Mother Family history of stroke or transient ischemic attack in mother Social History Narrative: advance directive in chart- 01/25/15 former cigarette smoker What is your current living situation?: I presently have a place to live Problems where you live: no known problems Problems where you live details: n/a In the past 12 months, utilities in danger of being shut off: no In past 12 months, lack of transportation kept you from medical appts, meetings, work, or getting things needed for daily living: no In the past 12 mos, have been you worried that your food would run out before you had money to buy more?: never true In the past 12 mos, the food you bought just didn't last and you didn't have money to buy more?: never true Highest level of school completed/degree received: GED or equivalent Smoking Status: Never smoker Do you use any of these nicotine containing products: None Second hand tobacco smoke exposure: No How often do you have a drink containing alcohol: never How often do you have six or more drinks on one occasion: Never AUDIT-C Alcohol total score: 0 Non-prescribed substance use: denies use Caffeine: Yes How often does anyone, including family, friends and others, physically hurt you: never How often does anyone, including family, friends and others, insult or talk down to you: never How often does anyone, including family, friends and others, threaten you with harm: never How often does anyone, including family, friends and others, scream or curse at you: never service: No Exam Narrative: Exam Narrative: Primary Survey: A- patent. When asked direct questions she has clear speech. Phonation normal. No stridor. B- breathing easily. Lung sounds clear and equal. Oxygen saturation normal on room air C- no active bleeding. Blood pressure stable. Symmetric pulses and cap refill in 4 extremities. D- she has lower lobe alert and oriented to person know she is at the hospital but not date. She does keep her eyes closed but opens them to voice. She follows commands appropriately. GCS 14. Constitutional: Appears well-developed and well-nourished. Overall nontoxic. HENT: Head: Right eye about swelling. No laceration. No depressed skull fracture, [place]acco[place] Eyes, Salinas's sign, or hemotympanum. Face normal. TMs normal. Nose: Nose normal. Mouth/Throat: Oral mucosa is clear and moist. no trismus. Pharynx normal. Tonsils symmetric. No tonsillar enlargement, erythema, or exudate. Eyes: Conjunctivae normal. EOM normal. Pupils somewhat small bilaterally equal, round, and reactive to light. No scleral icterus. Neck: In cervical collar per EMS. Trachea midline. Anterior neck normal. Cannot clear her cervical spine clinically because she is not able to cooperate with exam. Cardiovascular: Normal rate, regular rhythm. No gallop. No friction rub. No murmur heard. Symmetric radial artery pulses Pulmonary/Chest: Effort normal. No stridor. No respiratory distress. No wheezes. No rales. No rhonchi . Marked right anterior and right lower tenderness. Abdominal: Soft. Bowel sounds normal. No distension. No mass. Right upper quadrant tenderness. No rebound. No guarding. Musculoskeletal: RUE: Clavicle, shoulder, humeral shaft, biceps/triceps are nontender. Elbow nontender. Proximal forearm nontender. She is tender over the distal radius. She was in a Riccardo splint placed by EMS which we removed for exam. She does not have deformity. She is able to flex and extend her wrist about 20 or 30?. No tenderness over the thumb, 2nd digit, 3rd digit. There is some somewhat old-appearing bruising and a small superficial skin tear on the dorsum of the 4th digit. Fifth digit normal. LUE: Normal range of motion. No tenderness. No deformity RLE: Normal range of motion. No edema. No tenderness. No deformity LLE: Normal range of motion. No edema. No tenderness. No deformity Neurological: She is awake but her eyes are closed. I think she is alert. She answers simple questions appropriately but is not able to give answers to more complex questions. She can not really tell me what happened with the fall this morning. Paramedics think that she is probably at her neurologic baseline because she came from a memory care unit. When I review her recent ER note from July, it sounds like she was probably similar with eyes closed unless spoken to. She follows commands appropriately. Skin: Skin is warm and dry. No rash noted. No pallor. Normal capillary refill. Psychiatric: Limited by dementia but seems to have a normal mood. Const: Vital Signs, click to edit/add: Vital Signs - 24 hr 09/04/24 06:24 09/04/24 06:35 Temperature 98.1 F Pulse Rate [Right Pulse Oximeter] 74 Respiratory Rate 16 20 Blood Pressure [Ri ght Upper Arm] 160/107 H Pulse Oximetry 92 92 Oxygen Delivery Me thod Room Air Nasal Cannula Oxygen Flow Rate 2 Course Course ED Course: Patient brought by EMS to ER bed 5. Nurses and I met the paramedics upon arrival and took report directly from them. Patient was hemodynamically stable. She did arrive via nasal cannula which the paramedics at put on for her so they can monitor her end-tidal carbon dioxide, not because she needed supplemental oxygen. Vital Signs Vital signs: Initial Vital Signs Temperature 98.1 F 09/04/24 06:24 Temperature Source Temporal Artery Scan 09/04/24 06:24 Pulse Rate 74 09/04/24 06:24 Pulse Rhythm Regular 09/04/24 06:24 Pulse Strength 3+ Normal 09/04/24 06:24 Respiratory Rate 16 09/04/24 06:24 Blood Pressure 160/107 H 09/04/24 06:24 Blood Pressure Mean 124 H 09/04/24 06:24 Blood Pressure Position Sitting 09/04/24 06:24 Pulse Oximetry 92 09/04/24 06:24 Oxygen Delivery Method Room Air 09/04/24 06:24 Vital Signs Temperature 98.1 F 09/04/24 06:24 Pulse Rate 74 09/04/24 06:24 Respiratory Rate 16 09/04/24 06:24 Blood Pressure 160/107 H 09/04/24 06:24 Pulse Oximetry 92 09/04/24 06:24 Oxygen Delivery Method Room Air 09/04/24 06:24 Temperature 98.1 F 09/04/24 06:24 Pulse Rate 74 09/04/24 06:24 Respiratory Rate 20 09/04/24 06:35 Blood Pressure 160/107 H 09/04/24 06:24 Pulse Oximetry 92 09/04/24 06:35 Oxygen Delivery Method Nasal Cannula 09/04/24 06:35 Oxygen Flow Rate 2 09/04/24 06:35 Medical Decision Making MDM Narrative Medical decision making narrative: 89-year-old woman brought to the ER today by EMS from her memory care unit for evaluation of injuries after she had a witnessed mechanical trip and fall. Described mechanism that she got her walker caught on something and lost her balance. 1. Neuro. She does have some altered mental status. However this may be her baseline with her dementia. She does have signs of head trauma with some bruising and swelling on her right eyebrow and upper eyelid. This patient presents with blunt head trauma. Differential includes intracranial injuries (e.g. skull fracture, epidural hematoma, subdural hematoma, intracerebral hemorrhage, and traumatic subarachnoid hemorrhage), verses concussion or other traumatic brain injury. CT imaging was obtained and fortunately was normal. While she was here in the ER her mental status did improve quite a bit. Suspect her initial drowsiness was probably related to opiates that had be given by EMS while in route. She was having quite a bit of wrist pain so I did order another small dose of fentanyl. Fentanyl selected to avoid prolonged sedation and delirium it could be associated with more long-lasting opiates. No focal deficits to suggest stroke. She was placed in a C-collar by paramedics. Were unable to clear her cervical spine based on nexus criteria because of her dementia. C-spine CT is obtained and is negative for acute injury 2. Ortho. She was brought in because paramedics were concerned about right wrist pain and deformity. She came in in a splint. When I removed the splint she actually had fairly good inspection of her wrist without any deformity. Mild tenderness over this stool radius without bruising or swelling. X-rays of the wrist are negative. The remainder of the exam of her right upper extremity is normal. Left upper extremities normal. No sign of hip fracture or pelvic fracture. CT scans of her thoracic and lumbar spine show no acute fracture. 3. Pulmonary. Has right chest wall tenderness. CT scan of her chest shows a single acute rib fracture. CT scan does show evidence for bilateral infiltrates concerning for pneumonia. She does not have much coughing. She is requiring oxygen 1 L nasal cannula. Will check COVID. Ordered blood cultures. Will start antibiotics for community-acquired pneumonia-based on allergies, Rocephin and doxycycline. The patient only has 1 rib fracture but is having quite a bit of pain with transfers. Since she is on nasal cannula for pneumonia I do think she needs to be admitted. Discussed with our hospitalist, Dr. Beltran who graciously agrees to admit. She requests that we get the results of the COVID swab before the patient goes to the floor so we can make sure she goes to the proper isolation room. Discussed with my partner here in the ER, Dr. Iniguez, who will follow-up on the results of the COVID swab and called Dr. Claudio back to confirm the admission. 4. GI. Had right upper quadrant tenderness. Thought to be posttraumatic. s/o tristan. CT abdomen/pelvis shows no acute injury. 5. Renal. Electrolytes and kidney function look good. 6. Heme. Hemoglobin normal. Platelet count normal. Although there was some question per EMS, it appears she is not anticoagulated. 7. Disposition. Will admit to the hospitalist service. Please see hospitalist notes for further details about admission status and further workup. I did try to contact the patient's daughter, Maggie, by phone. She did not answer but I left a voicemail to have her daughter call back. Lab Data Labs: Lab Results 09/04/24 Range/Units 06:39 WBC 4.47 L (4.50-11.00) K/uL RBC 4.09 (4.00-5.20) m/uL Hgb 12.7 (12.0-16.0) gm/dL Hct 39.5 (33.0-51.0) % MCV 97 (80-100) fL MCH 31 (26-34) pg MCHC 32 (32-36) gm/dL RDW Coeff of Brock 15.2 (11.5-15.5) % Plt Count 213 (140-440) K/uL Neut % (Auto) 66.4 (42.0-72.0) % Lymph % (Auto) 17.2 L (20-44) % [place] % (Auto) 12.8 H (0.0-11.0) % Eos % (Auto) 2.2 (0.0-7.0) % Baso % (Auto) 0.7 (0.0-3.0) % Neut # (Auto) 3.00 (1.7-7.0) K/uL Lymph # (Auto) 0.80 L (0.90-2.90) K/uL [place] # (Auto) 0.60 (0.00-0.90) K/UL Eos # (Auto) 0.10 (0.00-0.50) K/uL Baso # (Auto) 0.00 (0.00-0.30) K/uL Abs Immat Gran (auto) 0.00 (0.00-0.30) K/uL Imm/Tot Granulo (auto) 0.7 % INR 1.05 (0.91-1.10) Sodium 134 L (135-149) mmol/L Potassium 3.6 (3.6-5.1) mmol/L Chloride 96 (96-114) mmol/L Carbon Dioxide 34 H (20-32) mmol/L Anion Gap 4 L (7-15) mEq/L BUN 17 (7-30) mg/dL Creatinine 0.7 (0.5-1.5) mg/dL Estimated Creat Clear 37.82 Estimated GFR 83 ml/min Glucose 96 (60-115) mg/dL Lactate 0.6 (0.5-1.9) mmol/L Calcium 9.0 (8.4-10.6) mg/dL Total Bilirubin 0.8 (0.1-1.5) mg/dL AST 36 H (12-35) U/L ALT 25 (4-35) U/L Alkaline Phosphatase 115 (40-150) U/L Total Creatine Kinase 43 (41-117) U/L Total Protein 6.9 (6.0-8.3) g/dL Albumin 3.4 (3.3-5.0) g/dL Imaging Data XR right wrist: Attestation: I have reviewed the pertinent imaging results. Radiologist's impression: Findings/Impression: Bones: Alignment is normal. No fractures or bone lesions. No sign of acute injury. 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 Soft tissues: Dense atherosclerosis. CT scan - head: Attestation: I have reviewed the pertinent imaging results. Radiologist's impression: IMPRESSION: Unremarkable noncontrast head CT. No sign of acute injury or other significant abnormality. CT C spine: Attestation: I have reviewed the pertinent imaging results. Radiologist's impression: IMPRESSION: 1. No sign of acute injury. 2. Multilevel degenerative spondylosis. CT Chest/Ab/Pelvis: Attestation: I have reviewed the pertinent imaging results. Radiologist's impression: IMPRESSION: 1. Acute nondisplaced fracture of the right 8th rib. 2. No other signs of acute injury. 3. Near complete interval resolution of the previously seen masslike consolidation in the right upper lobe. However, there are new masslike consolidations in both lower lobes and right middle lobe. Discharge Plan Discharge Clinical Impression: Closed rib fracture, Bilateral pneumonia, Hypoxia, Acute pain of right wrist, Fall, Contusion of right eyebrow Patient Disposition: Admitted As Observation
[2024-09-04 07:11] LABS: INR 1.05 (0.91-1.10); Prothrombin Time 14.5 Seconds
[2024-09-04 07:19] LABS: Albumin* 3.4 g/dL (3.3-5.0); Chloride* 96 mmol/L (96-114); Potassium* 3.6 mmol/L (3.6-5.1); Sodium* 134 mmol/L (135-149)
[2024-09-04 07:21] LABS: Alanine Aminotransferase* 25 U/L (4-35); Alkaline Phosphatase* 115 U/L (40-150); Anion Gap 4 mEq/L (7-15); Aspartate Amino Transferase* 36 U/L (12-35); Bilirubin Total* 0.8 mg/dL (0.1-1.5); Blood Urea Nitrogen* 17 mg/dL (7-30); Carbon Dioxide* 34 mmol/L (20-32); Creatinine* 0.7 mg/dL (0.5-1.5); Est. Creatinine Clearance* 37.82; Estimated Glomerular Filt Rate 83 ml/min
[2024-09-04 07:22] LABS: Creatine Kinase* 43 U/L (41-117); Glucose* 96 mg/dL (60-115); Total Protein* 6.9 g/dL (6.0-8.3)
--- OUTSIDE RECORDS SUMMARY | 2024-09-04 07:22 | XMS_ITS | CCD ---
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 Role Phone Teresa Vivas Primary Care Provider Un available Unavailable Chronic Care Management Unavaila ble Summary Purpose DataExchange Insurance Providers Payer name Policy type / Coverage type Covered alliance party ID Effective Begin Date Effective End Date BCBS of [facility] Medicare Risk [id number] Unknown Un known Family history Mother Diagnosis Age At Onset Stroke Unknown Social History Social History Element Codes Description Effec tive Dates Marital status Unknown 04/13/2024 Marital status Unknown 04/13/2024 Living arrangements Unknown Assisted Living 04/[address]: 7279337 Former smoker 04/[address]: 2384568 Former smoker 04/[address]: 461021547 No Alcohol Consum ption 04/13/[address]: 375346 Currently drin ks alcohol 04/13/2024 Sexually Active? [...] No Inactive Date A ctive SIMVASTATIN RxNorm: 72828 04/13/2024 No Inactive D ate Active Penicillin Unknown 04/13/2024 No Inactive Date A ctive CLOPIDOGREL Unknown 03/23/2024 No Inactive Date Active naproxen RxNorm: 7258 04/13/2024 No Inactive Date Active levofloxacin RxNorm: 89311 03/23/2024 No Inactive Date Active Levemir Unknown 03/23/2024 No Inactive Date Ac tive metformin RxNorm: 482996 04/13/2024 No Inactive Da te Active ESTROGENS Unknown 03/23/2024 No Inactive Date Ac tive Atenolol RxNorm: 1202 04/13/2024 No Inactive Date Active metoprolol succinate RxNorm: 748312 03/23/2024 No Inactive Date Active Januvia RxNorm: 215921 04/13/2024 No Inactive Da te Active furosemide RxNorm: 4603 03/23/2024 No Inactive Balaji e Active azithromycin RxNorm: 76166 04/13/2024 No Inactive Date Active losartan RxNorm: 976632 04/13/2024 No Inactive Da te Active NSAIDS Unknown 03/23/2024 No Inactive Date Ac tive Amlodipine RxNorm: 996072 04/13/2024 No Inactive D ate Active LISINOPRIL RxNorm: 51991 04/13/2024 No Inactive Da te Active PIOGLITAZONE [...] half-way insulin use ICD-10: E11.9 ICD-9: 250.00 08/31/2024 [...] ACP (advance care planning) SNOMED CT: 3 00440348 ICD-10: Z71.89 ICD-9: V65.49 06/01/2024 Active Adult general medical exam SNOMED CT: 30 4249865 ICD-10: Z00.00 ICD-9: V70.9 06/01/2024 Active Atherosclerosis of coronary artery of circle heart without angina pectoris, unspecified vessel or lesion type ICD-10: I25.10 ICD-9: 414.01 06/01/2024 Active 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 ICD-9: 311 06/01/[address]: 620486532 ICD-10: R54 ICD-9: 797 06/01/2024 Active Mixed [...] fracture of L1 vertebra, sequela SNOMED CT: 485627188 ICD-10: S32.010S ICD-9: 905.1 04/13/2024 Active Dementia in other diseases classified elsewhere, unspecified severity, without behavioral disturbance, psychotic disturbance, mood disturbance, and anxiety ICD-10: F02.80 04/13/[address]: 369502394 ICD-10: K57.90 ICD-9: 562.10 04/13/2024 Active History of breast cancer SNOMED CT: 4290 25145 ICD-10: Z85.3 ICD-9: V10.3 04/13/2024 Active History of melanoma SNOMED CT: 761292063 ICD-10: Z85.820 ICD-9: V10.82 04/13/2024 Active History of TIA (transient ischemic attack) SNOMED CT: 814311130 ICD-10: Z86.73 ICD-9: V12.54 04/13/2024 Active Hyperlipidemia, unspecified hyperlipidemia type SNOMED CT: 92936756 ICD-10: E78.5 ICD-9: 272.4 04/13/2024 Active Statin intolerance SNOMED CT: 646334092 ICD-10: Z78.9 ICD-9: 995.27 04/13/2024 Active Medications Medication Codes Instructions Start Date Stop Date Status Fill Instructions albuterol sulfate 2.5 mg/3 mL (0.083 %) solution for nebulization RxNorm: 626905 Take 3 Milliliter(s) Inhalation BID and BID PRN for shortness of breath/cough. 09/01/19 25 026 Active furosemide 40 mg tablet RxNorm: 886864 Take 1 Tablet(s) Oral QD 08/20/19 25 025 Inactive furosemide 40 mg tablet RxNorm: 051211 Take 1 Tablet(s) Oral QD 08/20/19 25 025 Inactive Contour Next EZ Meter RxNorm: USE TO JENIFER T BLOOD GLUCOSE DAILY (DX: DIABETES TYPE 2) 08/18/19 25 025 Active Contour Next Test Strips RxNorm: Use 1 strip BID 08/17/19 25 026 Active carvedilol 6.25 mg tablet RxNorm: 488388 Take 1 Tablet(s) Oral BID 08/10/19 25 No Stop Date Active nystatin 100,000 unit/gram topical powder RxNorm: 434722 Gram(s) Topical apply to affected area BID 08/10/19 25 025 Inactive hydrochlorothiazide 50 mg tablet RxNorm: 334534 Take 1 Tablet(s) Oral QD 08/07/19 25 No Stop Date Active Lantus Solostar U-100 Insulin 100 unit/mL (3 mL) subcutaneous pen RxNorm: 617866 Unit(s) Subcutaneous inject 14 units every am 08/07/19 25 No Stop Date Active Vitron-C 65 mg iron-125 mg tablet,delayed release RxNorm: 4752526 1 Tablet(s) Oral QOD every other day 07/23/19 25 025 Inactive *URGENT REQUEST* PLEASE SEND REFILLS FOR CYCLE FILL. THANK YOU! Oyster Shell Calcium-500 500 mg (as carbonate 1,250 mg) tablet RxNorm: 536290 1 TABLET ORALLY DAILY FOR BONE HEALTH 07/09/19 25 026 Active PLEASE SEND REFILLS.PHARMA CY PLEASE PROFILE FOR FUTURE USE-[facility] Co Q-10 200 mg capsule RxNorm: 316835 1 CAPSULE ORALLY DAILY W/ 100MG CAP FOR A TOTAL DOSE OF 300MG (DX: SUPPLEMENT) 07/09/19 25 026 Active PLEASE SEND REFILLS.PHARMA CY PLEASE PROFILE FOR FUTURE USE-[facility] oxybutynin chloride ER 10 mg tablet,extended release 24 hr RxNorm: 108044 1 TAB ORALLY EVERY EVENING FOR BLADDER SPASMS 07/09/19 25 026 Active PLEASE SEND REFILLS.PHARMA CY PLEASE PROFILE FOR FUTURE USE-[facility] Trelegy Ellipta 200 mcg-62.5 mcg-25 mcg powder for inhalation RxNorm: 4697447 INHALE 1 PUFF INTO THE LUNGS EVERY 24 HOURS (DX: CHRONIC OBSTRUCTIVE PULMONARY DISEASE) 07/09/19 25 026 Active PLEASE SEND REFILLS.PHARMA CY PLEASE PROFILE FOR FUTURE USE-[facility] fluoxetine 10 mg capsule RxNorm: 559092 1 CAPSULE ORALLY DAILY (DX: DEPRESSION) (DX: ANXIETY) 07/09/19 026 Active PLEASE SEND REFILLS.PHARMA CY PLEASE PROFILE FOR FUTURE USE-[facility] irbesartan 150 mg tablet RxNorm: 158546 1 TABLET ORALLY 2 TIMES DAILY (DX: HYPERTENSION) 07/09/19 026 Active PLEASE SEND REFILLS.PHARMA CY PLEASE PROFILE FOR FUTURE USE-[facility] cholecalciferol (vitamin D3) 25 mcg (1,000 unit) tablet RxNorm: 704190 1 TABLET ORALLY DAILY (DX: VITAMIN D DEFICIENCY) 07/09/19 026 Active PLEASE SEND REFILLS.PHARMA CY PLEASE PROFILE FOR FUTURE USE-[facility] quetiapine 25 mg tablet RxNorm: 548430 1 TABLET ORALLY AT BEDTIME (DX: ANXIETY) 07/09/19 Active PLEASE SEND REFILLS.PHARMA CY PLEASE PROFILE FOR FUTURE USE-[facility] coenzyme Q10 100 mg capsule RxNorm: 656537 1 CAPSULE ORALLY DAILY W/ 200MG CAP FOR A TOTAL DOSE OF 300MG (DX: SUPPLEMENT) 07/09/19 Active PLEASE SEND REFILLS.PHARMA CY PLEASE PROFILE FOR FUTURE USE-[facility] donepezil 10 mg tablet RxNorm: 600870 1 TABLET ORALLY AT BEDTIME (DX: DEMENTIA) 07/09/19 Active PLEASE SEND REFILLS.PHARMA CY PLEASE PROFILE FOR FUTURE USE-[facility] alcohol swabs RxNorm: 704210 USE DIRECTED 07/09/19 Active PLEASE SEND REFILLS.PHARMA CY PLEASE PROFILE FOR FUTURE USE-[facility] Vitron-C 65 mg iron-125 mg tablet,delayed release RxNorm: 4175736 1 Tablet(s) Oral QOD every other day 07/09/19 25 025 Inactive PLEASE SEND REFILLS.PHARMA CY PLEASE PROFILE FOR FUTURE USE-[facility] cyanocobalamin (vit B-12) 500 mcg tablet RxNorm: 445189 1 TABLET ORALLY DAILY (DX: ANEMIA) 07/09/19 25 025 Inactive PLEASE SEND REFILLS.PHARMA CY PLEASE PROFILE FOR FUTURE USE-[facility] hydrochlorothiazide 25 mg tablet RxNorm: 640629 1 TABLET ORALLY DAILY (DX: HYPERTENSION) 07/09/19 25 025 Inactive PLEASE SEND REFILLS.PHARMA CY PLEASE PROFILE FOR FUTURE USE-Medical[facility] Contour Next EZ Meter RxNorm: USE TO JENIFER T BLOOD GLUCOSE DAILY (DX: DIABETES TYPE 2) 07/09/19 25 025 Inactive PLEASE SEND REFILLS.PHARMA CY PLEASE PROFILE FOR FUTURE USE-Medical[facility]ds Alejandra Protect (zinc oxide) 12 % topical cream RxNorm: 123405 APPLY TO RIGHT BUTTOCK 2 TIMES DAILY;APPLY TO RIGHT BUTTOCK NEEDED WITH SOILING 06/12/19 25 026 Active albuterol sulfate HFA 90 mcg/actuation aerosol inhaler RxNorm: 9694987 Inhale 2 Puff(s) Inhalation Q4H every four hours as needed 06/01/19 25 025 Inactive Alejandra Protect (zinc oxide) 12 % topical cream RxNorm: 953425 cream Topical apply to right buttocks BID and PRN with soiling 06/01/19 25 025 Inactive Lantus Solostar U-100 Insulin 100 unit/mL (3 mL) subcutaneous pen RxNorm: 042402 Unit(s) Subcutaneous prime en with 2 units, then inject 8 units SQ QD at bedtime 05/18/19 025 Inactive potassium chloride ER 10 mEq tablet,extended release RxNorm: 631786 Take 1 Tablet(s) Oral QD 04/12/19 25 No Stop Date Active acetaminophen 500 mg tablet RxNorm: 536805 Take 2 Tablet(s) Oral TID as needed 04/12/19 25 No Stop Date Active fluoxetine 10 mg capsule RxNorm: 834364 Take 1 Capsule(s) Oral QD 04/12/19 25 025 Inactive hydrochlorothiazide 25 mg tablet RxNorm: 250884 Take 1 Tablet(s) Oral QD 04/12/19 25 025 Inactive Oyster Shell Calcium 500 mg (as calcium carbonate 1,250 mg) tablet RxNorm: 219507 Take 1 Tablet(s) Oral QD 04/12/19 25 025 Inactive Co Q-10 200 mg capsule RxNorm: 455778 Capsule(s) Oral take 1 cap po daily with 100mg tab to =300mg daily 02/03/ 025 Inactive Co Q-10 100 mg capsule RxNorm: 589759 Capsule(s) Oral take 1 cap daily along with 200mg tab to =300mg daily 04/12/19 025 Inactive quetiapine 25 mg tablet RxNorm: 223825 Take 1 Tablet(s) Oral QHS every night at bedtime 04/12/19 025 Inactive Vitamin D3 25 mcg (1,000 unit) tablet RxNorm: 646882 Take 1 Tablet(s) Oral QD 04/12/19 025 Inactive donepezil 10 mg tablet RxNorm: 067018 Take 1 Tablet(s) Oral QHS every night at bedtime 04/12/19 025 Inactive cyanocobalamin (vit B-12) 500 mcg tablet RxNorm: 160814 Take 1 Tablet(s) Oral QD 04/12/19 025 Inactive oxybutynin chloride ER 10 mg tablet,extended release 24 hr RxNorm: 331122 Take 1 Tablet(s) Oral QPM every evening 04/12/19 025 Inactive irbesartan 150 mg tablet RxNorm: 570216 Take 1 Tablet(s) Oral BID 04/12/19 025 Inactive Trelegy Ellipta 200 mcg-62.5 mcg-25 mcg powder for inhalation RxNorm: 0970389 Inhale 1 Puff(s) Inhalation every 24 hours 04/12/19 025 Inactive Vitron-C 65 mg iron-125 mg tablet,delayed release RxNorm: 1131608 Take 1 Tablet(s) Oral QOD every other day 04/12/19 025 Inactive Eliquis 5 mg tablet RxNorm: 9517274 Take 1 Tablet(s) Oral BID 04/12/19 025 Inactive Lantus Solostar U-100 Insulin 100 unit/mL (3 mL) subcutaneous pen RxNorm: 101215 Unit(s) Subcutaneous prime en with 2 units, [...] Result Date Service Location Basic Metabolic Panel [id number] POTASSIUM (XU) 2823-3 3.8 mmol/L 09/04/19 25 Unknown Basic Metabolic Panel [id number] CHLORIDE (XU) 98 mmol/L 09/04/19 25 Unknown Basic Metabolic Panel [id number] CO2 (XU) 30 mmol/L 09/04/19 25 Unknown Basic Metabolic Panel [id number] Calcium 9.3 mg/dL 09/04/19 25 Unknown Basic Metabolic Panel [id number] ANION GAP (XU) 10 mmol/L 09/04/19 25 Unknown Basic Metabolic Panel [id number] Creatinine 0.76 mg/dL 09/04/19 25 Unknown Basic Metabolic Panel [id number] GLUCOSE (XU) 2345-7 71 mg/dL 09/04/19 25 Unknown Basic Metabolic Panel [id number] Sodium 138 mmol/L 09/04/19 25 Unknown Basic Metabolic Panel [id number] UREA NITROGEN (XU) 16.5 mg/dL 09/04/19 25 Unknown Basic Metabolic Panel [id number] GFR, ESTIMATE 29716-5 75 mL/min/1.7 3m2 09/04/19 25 Unknown Vital [...] Encounter Performer Location Location Address Codes Date ([id number]) Home Visit - Est Pt, moderate Diagnosis: Primary hypertension[ICD10 : I10] Diagnosis: Chronic heart failure with preserved ejection fraction[ICD10: I50.32] Diagnosis: Chronic obstructive pulmonary disease, unspecified COPD type[ICD10: J44.9] Diagnosis: Type 2 diabetes mellitus without complication, unspecified whether 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 dyeing machine operator insulin use[ICD10: E11.9] Diagnosis: Urinary incontinence, unspecified type[ICD10: R32] Teresa Boothetinger [facility] [address] [place] [address] CPT-4: 99975 08/31/2024 Plan of Care Planned Activity Notes Codes Status Date Patient Education: Patient Medication Summary Completed 08/31/2024 Patient Education: Influenza Complet ed 08/31/2024 Appointment: Michela Talbot WPtel: [phone] F/U 08/03/2024 Appointment: Michela Talbot WPtel: [phone] 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 Previously lived independently in [place]. . Has one daughter Maggie who is involved in healthcare. PMH: History of breast cancer and melanoma, mixed dementia, depression, CAD, HLD, history of CVA/TIA, compression fx of L1 vertebrae, urinary incontinence, hearing loss, osteopeniaPrimary contact: Maggie Gallegos (Daughter)Code Status: DNR/SelectLab Schedule: Mar/SepSpecialists: [facility] (Q6M), Cardiology [facility] (MD Echo) 08/06/2024 Chronic heart failure with p reserved ejection fraction Increased edema and shortness of breath reported by staff. CXR revealed pulmonary edema vs interstitial pneumonitis. Treated with 5 day burst of HCTZ 100mg (typically on 50mg daily). Nursing states she has been stable since. Repeat BMP. On exam today, lungs CTA, no labored breathing. Legs are edematous, wearing tubi dividend deposit voucher clerk. Nursing reached out to TCU in regards to previous compression wraps, they're connecting with a lymph PT for further instruction. She has been utilizing a wheelchair more than her walker which is likely leading to increased edema status. Encourage walker use, exercise, tubi dividend deposit voucher clerk, and elevation. Will continue on HCTZ as well. Type 2 diabetes mellitus without complication, unspecified whether long chain dyeing machine operator insulin use Sugars reviewed; stable in [...] to avoid exacerbation. Ordering nebulizer machine today. [id number] visit with patient today regarding the need for nebulizer machine due high risk exacerbation of her COPD and repeat hospitalizations. Observations gathered via [id number] examination and evaluation by PA. Patient is home bound due to co morbidities making it a hardship to leave home for services or care. Primary hypertension BP 142/70, managed on irbesartan 150mg BID and HCTZ 25mg daily. See urinary incontinence plan.. 08/31/2024
--- OUTSIDE RECORDS SUMMARY | 2024-09-04 07:23 | XMS_ITS | CCD ---
Author Name Linda Vivas Address [address] [place] [address] Phone Organization [facility] Phone Care Team Providers Care Supplier Specialist Name Role Phone Teresa Vivas Primary Care Provider Un available Unavailable Chronic Care Management Unavaila ble Summary Purpose DataExchange Insurance Providers Payer name Policy type / Coverage type Covered libertarian ID Effective Begin Date Effective End Date BCBS of [facility] Medicare Risk [id number] Unknown Un known Family history Mother Diagnosis Age At Onset Stroke Unknown Social History Social History Element Codes Description Effec tive Dates Marital status Unknown 04/13/2024 Marital status Unknown 04/13/2024 Living arrangements Unknown Assisted Living 04/[address]: 4623385 Former smoker 04/[address]: 5241504 Former smoker 04/[address]: 574878435 No Alcohol Consum ption 04/13/[address]: 092430 Currently drin ks alcohol 04/13/2024 Sexually Active? [...] No Inactive Date A ctive SIMVASTATIN RxNorm: 32249 04/13/2024 No Inactive D ate Active Penicillin Unknown 04/13/2024 No Inactive Date A ctive CLOPIDOGREL Unknown 03/23/2024 No Inactive Date Active naproxen RxNorm: 7258 04/13/2024 No Inactive Date Active levofloxacin RxNorm: 57089 03/23/2024 No Inactive Date Active Levemir Unknown 03/23/2024 No Inactive Date Ac tive metformin RxNorm: 652273 04/13/2024 No Inactive Da te Active ESTROGENS Unknown 03/23/2024 No Inactive Date Ac tive Atenolol RxNorm: 1202 04/13/2024 No Inactive Date Active metoprolol succinate RxNorm: 598902 03/23/2024 No Inactive Date Active Januvia RxNorm: 085009 04/13/2024 No Inactive Da te Active furosemide RxNorm: 4603 03/23/2024 No Inactive Balaji e Active azithromycin RxNorm: 91688 04/13/2024 No Inactive Date Active losartan RxNorm: 077744 04/13/2024 No Inactive Da te Active NSAIDS Unknown 03/23/2024 No Inactive Date Ac tive Amlodipine RxNorm: 326873 04/13/2024 No Inactive D ate Active LISINOPRIL RxNorm: 88088 04/13/2024 No Inactive Da te Active PIOGLITAZONE [...] without complication, unspecified whether mcfp insulin use ICD-10: E11.9 ICD-9: 250.00 08/31/2024 [...] ACP (advance care planning) SNOMED CT: 3 55080108 ICD-10: Z71.89 ICD-9: V65.49 06/01/2024 Active Adult general medical exam SNOMED CT: 30 9239507 ICD-10: Z00.00 ICD-9: V70.9 06/01/2024 Active Atherosclerosis of coronary artery of kiana heart without angina pectoris, unspecified vessel or lesion type ICD-10: I25.10 ICD-9: 414.01 06/01/2024 Active 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 ICD-9: 311 06/01/[address]: 870835905 ICD-10: R54 ICD-9: 797 06/01/2024 Active Mixed [...] fracture of L1 vertebra, sequela SNOMED CT: 830440885 ICD-10: S32.010S ICD-9: 905.1 04/13/2024 Active Dementia in other diseases classified elsewhere, unspecified severity, without behavioral disturbance, psychotic disturbance, mood disturbance, and anxiety ICD-10: F02.80 04/13/[address]: 450249465 ICD-10: K57.90 ICD-9: 562.10 04/13/2024 Active History of breast cancer SNOMED CT: 4290 86814 ICD-10: Z85.3 ICD-9: V10.3 04/13/2024 Active History of melanoma SNOMED CT: 979165066 ICD-10: Z85.820 ICD-9: V10.82 04/13/2024 Active History of TIA (transient ischemic attack) SNOMED CT: 999120916 ICD-10: Z86.73 ICD-9: V12.54 04/13/2024 Active Hyperlipidemia, unspecified hyperlipidemia type SNOMED CT: 79646920 ICD-10: E78.5 ICD-9: 272.4 04/13/2024 Active Statin intolerance SNOMED CT: 203056217 ICD-10: Z78.9 ICD-9: 995.27 04/13/2024 Active Medications Medication Codes Instructions Start Date Stop Date Status Fill Instructions albuterol sulfate 2.5 mg/3 mL (0.083 %) solution for nebulization RxNorm: 559173 Take 3 Milliliter(s) Inhalation BID and BID PRN for shortness of breath/cough. 09/01/19 25 026 Active furosemide 40 mg tablet RxNorm: 276328 Take 1 Tablet(s) Oral QD 08/20/19 25 025 Inactive furosemide 40 mg tablet RxNorm: 426290 Take 1 Tablet(s) Oral QD 08/20/19 25 025 Inactive Contour Next EZ Meter RxNorm: USE TO JENIFER T BLOOD GLUCOSE DAILY (DX: DIABETES TYPE 2) 08/18/19 25 025 Active Contour Next Test Strips RxNorm: Use 1 strip BID 08/17/19 25 026 Active carvedilol 6.25 mg tablet RxNorm: 769058 Take 1 Tablet(s) Oral BID 08/10/19 25 No Stop Date Active nystatin 100,000 unit/gram topical powder RxNorm: 766741 Gram(s) Topical apply to affected area BID 08/10/19 25 025 Inactive hydrochlorothiazide 50 mg tablet RxNorm: 370622 Take 1 Tablet(s) Oral QD 08/07/19 25 No Stop Date Active Lantus Solostar U-100 Insulin 100 unit/mL (3 mL) subcutaneous pen RxNorm: 885827 Unit(s) Subcutaneous inject 14 units every am 08/07/19 25 No Stop Date Active Vitron-C 65 mg iron-125 mg tablet,delayed release RxNorm: 8254301 1 Tablet(s) Oral QOD every other day 07/23/19 25 025 Inactive *URGENT REQUEST* PLEASE SEND REFILLS FOR CYCLE FILL. THANK YOU! Oyster Shell Calcium-500 500 mg (as carbonate 1,250 mg) tablet RxNorm: 347859 1 TABLET ORALLY DAILY FOR BONE HEALTH 07/09/19 25 026 Active PLEASE SEND REFILLS.PHARMA CY PLEASE PROFILE FOR FUTURE USE-[facility] or[facility] Co Q-10 200 mg capsule RxNorm: 932057 1 CAPSULE ORALLY DAILY W/ 100MG CAP FOR A TOTAL DOSE OF 300MG (DX: SUPPLEMENT) 07/09/19 25 026 Active PLEASE SEND REFILLS.PHARMA CY PLEASE PROFILE FOR FUTURE USE-[facility] or[facility] oxybutynin chloride ER 10 mg tablet,extended release 24 hr RxNorm: 752027 1 TAB ORALLY EVERY EVENING FOR BLADDER SPASMS 07/09/19 25 026 Active PLEASE SEND REFILLS.PHARMA CY PLEASE PROFILE FOR FUTURE USE-[facility] or[facility] Trelegy Ellipta 200 mcg-62.5 mcg-25 mcg powder for inhalation RxNorm: 7082753 INHALE 1 PUFF INTO THE LUNGS EVERY 24 HOURS (DX: CHRONIC OBSTRUCTIVE PULMONARY DISEASE) 07/09/19 25 026 Active PLEASE SEND REFILLS.PHARMA CY PLEASE PROFILE FOR FUTURE USE-[facility] or[facility] fluoxetine 10 mg capsule RxNorm: 357598 1 CAPSULE ORALLY DAILY (DX: DEPRESSION) (DX: ANXIETY) 07/09/19 026 Active PLEASE SEND REFILLS.PHARMA CY PLEASE PROFILE FOR FUTURE USE-MedicalRec ords irbesartan 150 mg tablet RxNorm: 212121 1 TABLET ORALLY 2 TIMES DAILY (DX: HYPERTENSION) 07/09/19 026 Active PLEASE SEND REFILLS.PHARMA CY PLEASE PROFILE FOR FUTURE USE-[facility] cholecalciferol (vitamin D3) 25 mcg (1,000 unit) tablet RxNorm: 477374 1 TABLET ORALLY DAILY (DX: VITAMIN D DEFICIENCY) 07/09/19 026 Active PLEASE SEND REFILLS.PHARMA CY PLEASE PROFILE FOR FUTURE USE-MedicalRec ords quetiapine 25 mg tablet RxNorm: 247133 1 TABLET ORALLY AT BEDTIME (DX: ANXIETY) 07/09/19 Active PLEASE SEND REFILLS.PHARMA CY PLEASE PROFILE FOR FUTURE USE-[facility] coenzyme Q10 100 mg capsule RxNorm: 366033 1 CAPSULE ORALLY DAILY W/ 200MG CAP FOR A TOTAL DOSE OF 300MG (DX: SUPPLEMENT) 07/09/19 Active PLEASE SEND REFILLS.PHARMA CY PLEASE PROFILE FOR FUTURE USE-[facility] donepezil 10 mg tablet RxNorm: 000941 1 TABLET ORALLY AT BEDTIME (DX: DEMENTIA) 07/09/19 Active PLEASE SEND REFILLS.PHARMA CY PLEASE PROFILE FOR FUTURE USE-[facility] alcohol swabs RxNorm: 223491 USE DIRECTED 07/09/19 Active PLEASE SEND REFILLS.PHARMA CY PLEASE PROFILE FOR FUTURE USE-[facility] Vitron-C 65 mg iron-125 mg tablet,delayed release RxNorm: 0250717 1 Tablet(s) Oral QOD every other day 07/09/19 25 025 Inactive PLEASE SEND REFILLS.PHARMA CY PLEASE PROFILE FOR FUTURE USE-Medical[facility] cyanocobalamin (vit B-12) 500 mcg tablet RxNorm: 185889 1 TABLET ORALLY DAILY (DX: ANEMIA) 07/09/19 25 025 Inactive PLEASE SEND REFILLS.PHARMA CY PLEASE PROFILE FOR FUTURE USE-MedicalRec ords hydrochlorothiazide 25 mg tablet RxNorm: 268796 1 TABLET ORALLY DAILY (DX: HYPERTENSION) 07/09/19 25 025 Inactive PLEASE SEND REFILLS.PHARMA CY PLEASE PROFILE FOR FUTURE USE-MedicalRec ords Contour Next EZ Meter RxNorm: USE TO JENIFER T BLOOD GLUCOSE DAILY (DX: DIABETES TYPE 2) 07/09/19 25 025 Inactive PLEASE SEND REFILLS.PHARMA CY PLEASE PROFILE FOR FUTURE USE-MedicalRec ords Alejandra Protect (zinc oxide) 12 % topical cream RxNorm: 743022 APPLY TO RIGHT BUTTOCK 2 TIMES DAILY;APPLY TO RIGHT BUTTOCK NEEDED WITH SOILING 06/12/19 25 026 Active albuterol sulfate HFA 90 mcg/actuation aerosol inhaler RxNorm: 7687568 Inhale 2 Puff(s) Inhalation Q4H every four hours as needed 06/01/19 25 025 Inactive Alejandra Protect (zinc oxide) 12 % topical cream RxNorm: 130011 cream Topical apply to right buttocks BID and PRN with soiling 06/01/19 25 025 Inactive Lantus Solostar U-100 Insulin 100 unit/mL (3 mL) subcutaneous pen RxNorm: 040622 Unit(s) Subcutaneous prime en with 2 units, then inject 8 units SQ QD at bedtime 05/18/19 025 Inactive potassium chloride ER 10 mEq tablet,extended release RxNorm: 185871 Take 1 Tablet(s) Oral QD 04/12/19 25 No Stop Date Active acetaminophen 500 mg tablet RxNorm: 459160 Take 2 Tablet(s) Oral TID as needed 04/12/19 25 No Stop Date Active fluoxetine 10 mg capsule RxNorm: 334091 Take 1 Capsule(s) Oral QD 04/12/19 25 025 Inactive hydrochlorothiazide 25 mg tablet RxNorm: 865377 Take 1 Tablet(s) Oral QD 04/12/19 25 025 Inactive Oyster Shell Calcium 500 mg (as calcium carbonate 1,250 mg) tablet RxNorm: 658103 Take 1 Tablet(s) Oral QD 04/12/19 25 025 Inactive Co Q-10 200 mg capsule RxNorm: 294429 Capsule(s) Oral take 1 cap po daily with 100mg tab to =300mg daily 02/03/ 025 Inactive Co Q-10 100 mg capsule RxNorm: 637051 Capsule(s) Oral take 1 cap daily along with 200mg tab to =300mg daily 04/12/19 025 Inactive quetiapine 25 mg tablet RxNorm: 462223 Take 1 Tablet(s) Oral QHS every night at bedtime 04/12/19 025 Inactive Vitamin D3 25 mcg (1,000 unit) tablet RxNorm: 968804 Take 1 Tablet(s) Oral QD 04/12/19 025 Inactive donepezil 10 mg tablet RxNorm: 105332 Take 1 Tablet(s) Oral QHS every night at bedtime 04/12/19 025 Inactive cyanocobalamin (vit B-12) 500 mcg tablet RxNorm: 427829 Take 1 Tablet(s) Oral QD 04/12/19 025 Inactive oxybutynin chloride ER 10 mg tablet,extended release 24 hr RxNorm: 797396 Take 1 Tablet(s) Oral QPM every evening 04/12/19 025 Inactive irbesartan 150 mg tablet RxNorm: 284725 Take 1 Tablet(s) Oral BID 04/12/19 025 Inactive Trelegy Ellipta 200 mcg-62.5 mcg-25 mcg powder for inhalation RxNorm: 2528302 Inhale 1 Puff(s) Inhalation every 24 hours 04/12/19 025 Inactive Vitron-C 65 mg iron-125 mg tablet,delayed release RxNorm: 2321428 Take 1 Tablet(s) Oral QOD every other day 04/12/19 025 Inactive Eliquis 5 mg tablet RxNorm: 4954554 Take 1 Tablet(s) Oral BID 04/12/19 025 Inactive Lantus Solostar U-100 Insulin 100 unit/mL (3 mL) subcutaneous pen RxNorm: 657657 Unit(s) Subcutaneous prime en with 2 units, [...] Result Date Service Location Basic Metabolic Panel [id number] POTASSIUM (XU) 2823-3 3.8 mmol/L 09/04/19 25 Unknown Basic Metabolic Panel [id number] CHLORIDE (XU) 98 mmol/L 09/04/19 25 Unknown Basic Metabolic Panel HGH0597 CO2 (XU) 30 mmol/L 09/04/19 25 Unknown Basic Metabolic Panel [id number] Calcium 9.3 mg/dL 09/04/19 25 Unknown Basic Metabolic Panel ANR5504 ANION GAP (XU) 10 mmol/L 09/04/19 25 Unknown Basic Metabolic Panel [id number] Creatinine 0.76 mg/dL 09/04/19 25 Unknown Basic Metabolic Panel [id number] GLUCOSE (XU) 2345-7 71 mg/dL 09/04/19 25 Unknown Basic Metabolic Panel CWZ2553 Sodium 138 mmol/L 09/04/19 25 Unknown Basic Metabolic Panel [id number] UREA NITROGEN (XU) 16.5 mg/dL 09/04/19 25 Unknown Basic Metabolic Panel [id number] GFR, ESTIMATE 09356-6 75 mL/min/1.73m 2 09/04/19 25 Unknown CBC with Platelets AVH974 WBC COUNT (AUTOMATED) 4.1 10e3/uL 06/05/19 25 Unknown CBC with Platelets KRC880 RBC COUNT 789-8 4.37 10e6/uL 06/05/19 25 Unknown CBC with Platelets OWN201 Hemoglobin 718-7 13.5 g/dL 06/05/19 25 Unknown CBC with Platelets IKN413 Hematocrit 4544-3 42.8 % 06/05/19 25 Unknown CBC with Platelets LCD603 MCV 787-2 98 fL 06/05/19 25 Unknown CBC with Platelets CIH127 MCH 30.9 pg 06/05/19 25 Unknown CBC with Platelets ZZS013 MCHC 31.5 g/dL 06/05/19 25 Unknown CBC with Platelets ESI893 RDW 16.5 % 06/05/19 25 Unknown CBC with Platelets HDH213 Platelet Count 777-3 181 10e3/uL 06/05/19 25 Unknown Hemoglobin A1c LAB90 EST AVERAGE GLUCOSE 151 mg/dL 06/05/19 25 Unknown Hemoglobin A1c LAB90 Hemoglobin A1c 67394-7 6.9 % 06/05/19 25 Unknown Glucose PYM7040 Sodium 140 mmol/L 06/05/19 25 Unknown Glucose ECR4445 POTASSIUM (XU) 2823-3 3.5 mmol/L 06/05/19 25 Unknown Glucose EEM4459 CHLORIDE (XU) 100 mmol/L 25 Unknown Glucose FNS9009 CO2 (XU) 28 mmol/L 06/05/19 25 Unknown Glucose UKY2915 ANION GAP (XU) 12 mmol/L 06/05/19 25 Unknown Glucose PLM5208 UREA NITROGEN (XU) 13.7 mg/dL 06/05/19 25 Unknown Glucose PAN3805 Creatinine 0.75 mg/dL 06/05/19 25 Unknown Glucose MYY8700 GFR, ESTIMATE 71000-0 76 mL/min/1.73m 2 06/05/19 25 Unknown Glucose MKC6119 Calcium 9.3 mg/dL 06/05/19 25 Unknown Basic Metabolic Panel [id number] POTASSIUM (XU) 2823-3 3.5 mmol/L 06/05/19 25 Unknown Basic Metabolic Panel INQ0772 CHLORIDE (XU) 100 mmol/L 06/05/19 25 Unknown Basic Metabolic Panel [id number] CO2 (XU) 28 mmol/L 06/05/19 25 Unknown Basic Metabolic Panel DLN1051 Calcium 9.3 mg/dL 06/05/19 25 Unknown Basic Metabolic Panel YKD2197 ANION GAP (XU) 12 mmol/L 06/05/19 25 Unknown Basic Metabolic Panel ZRM9463 Creatinine 0.75 mg/dL 06/05/19 Unknown Basic Metabolic Panel [id number] GLUCOSE (XU) 2345-7 79 mg/dL 06/05/19 Unknown Basic Metabolic Panel PJV6762 Sodium 140 mmol/L 06/05/19 Unknown Basic Metabolic Panel [id number] UREA NITROGEN (XU) 13.7 mg/dL 06/05/19 Unknown Basic Metabolic Panel EVX0764 GFR, ESTIMATE 14009-2 76 mL/min/1.73m 2 06/05/19 Unknown Urine Culture 23029 URINE CULTURE 52803-1 SEE RESU LTS BELOW 06/04/19 Unknown PHQ9 PHQ9 05021-4 1 06/02/19 Unknown UA with Microscopic 04420 COLOR Light Yellow 06/01/19 Unknown UA with Microscopic 26920 Appearance Slightly Cloudy 06/01/19 Unknown UA with Microscopic 27005 GLUCOSE, URINE Negative mg/dL 06/01/19 Unknown UA with Microscopic 44159 BILIRUBIN, URINE Negative 06/01/19 Unknown UA with Microscopic 44995 Ketones Urine Negative mg/dL 06/01/19 Unknown UA with Microscopic 69151 Specific [place] Urine 1.012 06/01/19 Unknown UA with Microscopic 92606 BLOOD, URINE Negative 06/01/19 Unknown UA with Microscopic 79775 pH Urine 6.5 06/01/19 Unknown UA with Microscopic 91179 Protein urine Negative mg/dL 06/01/19 Unknown UA with Microscopic 98544 UROBILINOGEN IRIS Normal mg/dL 06/01/19 Unknown UA with Microscopic 15417 Nitrites Positive 06/01/19 Unknown UA with Microscopic 75548 LEUK ESTERASE Trace 06/01/19 Unknown UA with Microscopic 27564 Bacteria Few /HPF 06/01/19 Unknown UA with Microscopic 67752 WBC CLUMPS 6690-2 Present /HPF 06/01/19 25 Unknown UA with Microscopic 63874 Mucus Urine Present /LPF 06/01/19 25 Unknown UA with Microscopic 76870 RBC Urine <1 /HPF 06/01/19 Unknown UA with Microscopic 90977 SQUAMOUS EPITHELIAL 2 /HPF 06/01/19 Unknown UA with Microscopic 80764 WBC Urine 54545-9 26 /HPF 06/01/19 25 Unknown Urine Culture 46355 URINE CULTURE 13183-9 SEE RESU LTS BELOW 05/23/19 25 Unknown UA with Microscopic 50699 COLOR Yellow 05/22/19 25 Unknown UA with Microscopic 53096 Appearance Slightly Cloudy 05/22/19 25 Unknown UA with Microscopic 48426 GLUCOSE, URINE Negative mg/dL 05/22/19 25 Unknown UA with Microscopic 15848 BILIRUBIN, URINE Negative 05/22/19 25 Unknown UA with Microscopic 59599 Ketones Urine Negative mg/dL 05/22/19 25 Unknown UA with Microscopic 52226 Specific [place] Urine 1.013 05/22/19 25 Unknown UA with Microscopic 69695 BLOOD, URINE Negative 05/22/19 25 Unknown UA with Microscopic 26601 pH Urine 6.5 05/22/19 25 Unknown UA with Microscopic 95605 Protein urine 10 mg/dL 05/22/19 25 Unknown UA with Microscopic 09252 UROBILINOGEN IRIS Normal mg/dL 05/22/19 25 Unknown UA with Microscopic 01288 Nitrites Positive 05/22/19 25 Unknown UA with Microscopic 22616 LEUK ESTERASE Large 05/22/19 25 Unknown UA with Microscopic 21884 Bacteria Few /HPF 05/22/19 25 Unknown UA with Microscopic 92085 Mucus Urine Present /LPF 05/22/19 25 Unknown UA with Microscopic 74112 RBC Urine 0 /HPF 05/22/19 25 Unknown UA with Microscopic 53582 SQUAMOUS EPITHELIAL 3 /HPF 05/22/19 25 Unknown UA with Microscopic 76696 WBC Urine 93188-4 24 /HPF 05/22/19 25 Unknown UA with Microscopic 71358 TRANSITIONAL EPI <1 /HPF 05/22/19 25 Unknown PHQ9 PHQ9 14036-4 2 04/13/19 25 Unknown SLUMS SLUMS 65258-0 13 04/13/19 25 Unknown Procedures Procedure Codes Date DSCHRG MED/CURRENT MED MERGE CPT-4: 1111F 05/2024 HG A1C LEVEL LT 7.0% CPT-4: 3044F 06/29/2024 PT INELIG NEG SCRN DEPRES SNOMED CT: 428 186218054168 CPT-4: G8510 06/01/2024 PT INELIG NEG SCRN DEPRES SNOMED CT: 428 243006455807 CPT-4: G8510 04/13/2024 Vital Signs Date Vital 08/31/2024 Blood Pressure 1: 142/70 Code: 8480-6 Heart Rate 1: 82 bpm Code: 8867-4 Respiratory Rate: 20 bpm SpO2: 91% Temperature: 35.4 (C) / 95.8 (F) Weight: 208 lbs 6 oz Code: 3141-9 08/10/2024 Blood Pressure 1: 144/68 Code: 8480-6 BMI: 35.0 Code: 70145-9 Heart Rate 1: 78 bpm Code: 8867-4 Height: 5'4 Code: 8302-2 Respiratory Rate: 18 bpm SpO2: 91% Temperature: 36.3 (C) / 97.4 (F) Weight: 204 lbs Code: 3141-9 06/29/2024 Blood Pressure 1: 132/82 Code: 8480-6 Heart Rate 1: 66 bpm Code: 8867-4 Respiratory Rate: 18 bpm SpO2: 95% Temperature: 36.3 (C) / 97.3 (F) 06/01/2024 Blood Pressure 1: 150/90 Code: 8480-6 BMI: NaN Code: 58025-2 Heart Rate 1: 71 bpm Code: 8867-4 [...] Encounter Performer Location Location Address Codes Date ([id number]) Home Visit - Est Pt, moderate Diagnosis: Primary hypertension[ICD10: I10] Diagnosis: Chronic heart failure with preserved ejection fraction[ICD10: I50.32] Diagnosis: Chronic obstructive pulmonary disease, unspecified COPD type[ICD10: J44.9] Diagnosis: Type 2 diabetes mellitus without complication, unspecified whether long term care social worker insulin use[ICD10: E11.9] Diagnosis: Urinary incontinence, unspecified type[ICD10: R32] Teresa Talbot [facility] [place] [address] CPT-4: 03366 08/31/2024 ([id number]) Home Visit - Est Pt, moderate Diagnosis: Atrial fibrillation, unspecified type[ICD10: I48.91] Diagnosis: Chronic obstructive pulmonary disease, unspecified COPD type[ICD10: J44.9] Diagnosis: Unsteady gait[ICD10: R26.81] Diagnosis: Vascular dementia, unspecified severity, without behavioral disturbance, psychotic disturbance, mood disturbance, and anxiety[ICD10: F01.50] Diagnosis: Pressure injury of left buttock, stage 2[ICD10: L89.322] [facility] [address] [place] [address] CPT-4: 17545 08/10/2024 ([id number]) Home Visit - Est Pt, moderate Diagnosis: Acute cystitis without hematuria[ICD10: N30.00] Diagnosis: Chronic heart failure with preserved ejection fraction[ICD10: I50.32] Diagnosis: Iron deficiency anemia, unspecified iron deficiency anemia type[ICD10: D50.9] Diagnosis: Type 2 diabetes mellitus without complication, unspecified whether long term care social worker insulin use[ICD10: E11.9] Diagnosis: Chronic obstructive pulmonary disease, unspecified COPD type[ICD10: J44.9] [facility] [id number] [place] [address] CPT-4: 15675 06/29/2024 ([id number]) Medicare Annual Wellness Visit (AWV), Subsequent Diagnosis: Adult general medical exam[SNOMED: 079794925] Diagnosis: ACP (advance care planning)[SNOMED: 463805544] Diagnosis: Frailty[SNOMED: 825906197] Diagnosis: Atherosclerosis of coronary artery of kiana heart without angina pectoris, unspecified vessel or [...] extremities[ICD10: I87.2] Diagnosis: Acute cystitis without hematuria[SNOMED: 90850612] Diagnosis: Pressure injury of left buttock, stage 2[ICD10: L89.322] Teresa Talbot [address] [address] CPT-4: G0439 06/01/2024 ([id number]) Home Visit - Est Pt, moderate Diagnosis: Adult general medical exam[SNOMED: 626767669] Diagnosis: ACP (advance care planning)[SNOMED: 686015171] Diagnosis: Frailty[SNOMED: 432634888] Diagnosis: Atherosclerosis of coronary artery of kiana heart without angina pectoris, unspecified vessel or [...] extremities[ICD10: I87.2] Diagnosis: Acute cystitis without hematuria[SNOMED: 12218892] Diagnosis: Pressure injury of left buttock, stage 2[ICD10: L89.322] [facility] [place] [address] CPT-4: 38468 06/01/2024 ([id number]) Home or Residence Visit Est Pt - Moderate Level, 40 mins 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] Diagnosis: Primary hypertension[ICD10: I10] Diagnosis: Pressure injury of left buttock, stage 2[SNOMED: 51160043816870] Diagnosis: Type 2 diabetes mellitus without complication, unspecified whether long term care social worker insulin use[ICD10: E11.9] [facility] [place] [address] CPT-4: 11982 05/04/2024 ([id number]) 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, 60 mins Diagnosis: Statin intolerance[SNOMED: 291306424] Diagnosis: Mixed Alzheimer and vascular dementia[SNOMED: 27113200480197] Diagnosis: Vascular dementia, unspecified severity, without behavioral disturbance, psychotic disturbance, mood disturbance, and anxiety[ICD10: F01.50] Diagnosis: Dementia in other diseases classified elsewhere, unspecified severity, without behavioral disturbance, psychotic disturbance, mood disturbance, and anxiety[ICD10: F02.80] Diagnosis: History of TIA (transient ischemic attack)[SNOMED: 757196517] Diagnosis: Type 2 diabetes mellitus without complication, unspecified whether mcfp insulin use[SNOMED: 21961492] Diagnosis: Venous insufficiency of both lower extremities[SNOMED: 522999975] Diagnosis: Hyperlipidemia, unspecified hyperlipidemia type[SNOMED: 65592954] Diagnosis: Unintentional weight loss[SNOMED: 807336260] Diagnosis: Urinary incontinence, unspecified type[SNOMED: 808734032] Diagnosis: Depression due to dementia[SNOMED: 93203887] Diagnosis: Compression fracture of L1 vertebra, sequela[SNOMED: 000051734] Diagnosis: Atherosclerosis of coronary artery of kiana heart without angina pectoris, unspecified vessel or lesion type[SNOMED: 508909301] Diagnosis: Unsteady gait[SNOMED: 41668240] Diagnosis: Iron deficiency anemia, unspecified iron deficiency anemia type[SNOMED: 66819053] Diagnosis: Osteopenia, unspecified location[SNOMED: 214205155] Diagnosis: CAMILO (obstructive sleep apnea)[SNOMED: 87165406] Diagnosis: Chronic obstructive pulmonary disease, unspecified COPD type[SNOMED: 81809572] Diagnosis: History of breast cancer[SNOMED: 304128488] Diagnosis: History of melanoma[SNOMED: 130292800] Diagnosis: Primary hypertension[SNOMED: 12097440] Diagnosis: Chronic heart failure with preserved ejection fraction[SNOMED: 442202873] Diagnosis: Diverticulosis[SNOMED : 679363592] Diagnosis: Atrial fibrillation, unspecified type[SNOMED: 40958204] Diagnosis: Advance care planning[SNOMED: 648662039] Teresa Talbot [address] [address] CPT-4: 42794 04/13/2024 Plan of Care Planned Activity Notes Codes Status Date Patient Education: Patient Medication Summary Completed 08/31/2024 Patient Education: Influenza Complet ed 08/31/2024 Patient Education: Patient Medication Summary Completed 08/10/2024 Patient Education: Influenza Complet ed 08/10/2024 Appointment: Michela Talbot WPtel: [address] [place], [place] [phone] F/U 08/03/2024 Patient Education: Patient Medication Summary Completed 06/29/2024 [...] Complet ed 05/04/2024 Appointment: Michela Talbot WPtel: [address] [place], [place] [phone] [facility] 04/13/2024 Patient Education: Patient Medication Summary Completed 04/13/2024 Patient Education: Influenza Complet ed 04/13/2024 Patient Education: Alzheimer''s Disease Completed 04/13/2024 Patient Education: Dementia Complete d 04/13/2024 Instructions Comment Date Alyx resides at [facility] since about 2021. Previously lived independently in [place]. . Has one daughter Maggie who is involved in healthcare. PMH: History of breast cancer and melanoma, mixed dementia, depression, CAD, HLD, history of CVA/TIA, compression fx of L1 vertebrae, urinary incontinence, hearing loss, osteopeniaPrimary contact: Maggie Gallegos (Daughter)Code Status: DNR/SelectLab Schedule: Mar/SepSpecialists: [facility] (Q6M), Cardiology [facility] (MD Echo) 08/06/2024 Chronic heart failure with p reserved ejection fraction Increased edema and shortness of breath reported by staff. CXR revealed pulmonary edema vs interstitial pneumonitis. Treated with 5 day burst of HCTZ 100mg (typically on 50mg daily). Nursing states she has been stable since. Repeat BMP. On exam today, lungs CTA, no labored breathing. Legs are edematous, wearing tubi metal bonder. Nursing reached out to TCU in regards to previous compression wraps, they're connecting with a lymph PT for further instruction. She has been utilizing a wheelchair more than her walker which is likely leading to increased edema status. Encourage walker use, exercise, tubi metal bonder, and elevation. Will continue on HCTZ as well. Type 2 diabetes mellitus without complication, unspecified whether long term care social worker insulin use Sugars reviewed; stable in 90-200 [...] to avoid exacerbation. Ordering nebulizer machine today. Jafe-pe-elem visit with patient today regarding the need for nebulizer machine due high risk exacerbation of her COPD and repeat hospitalizations. Observations gathered via [id number] examination and evaluation by PA. Patient is home bound due to co morbidities making it a hardship to leave home for services or care. Primary hypertension BP 142/70, managed on irbesartan 150mg BID and HCTZ 25mg daily. See urinary incontinence plan.. 08/31/2024 Chronic obstructive pulmonar y disease, unspecified COPD type Rales noted bilaterally in lungs. Denies labored breathing. O2 94% on RA. Did not require oxygen at TCU. Recently hospitalized for RSV with COPD exacerbation. Continues with Trelegy 200-62.5-25mcg daily. Has prn albuterol as well. Nursing to notify provider with any respiratory changes. Unsteady gait Several falls leading up to hospitalization. Has been working with PT/OT at TCU and is to start therapies again at facility. She is able to sit to stand with assist of one today. Remains very unsteady on her own. Continues with use of wheelchair primarily. Patient is home bound given debility, gait instability and cognitive impairment. Patient uses DME and needs the assistance of another to leave home. Atrial fibrillation, unspecified type HR irregular rhythm, regular rate. Denies heart palpitations, dizziness, chest pain, or SOB. Follows with outside cardiology. Vascular dementia, unspecified severity, without behavioral disturbance, psychotic disturbance, mood disturbance, and anxiety Has now moved into memory care for increased level of surveillance and care. She is pleasantly confused on exam. Continue on fluoxetine 10mg, donepezil 10mg, and quetiapine 25mg QHS for behaviors. Pressure injury of left buttock, stage 2 Noted on exam SN to eval and tx. Patient is home bound given debility, gait instability and cognitive impairment. Patient uses DME and needs the assistance of another to leave home. . 08/10/2024 Type 2 diabetes mellitus wit hout complication, unspecified whether long term care social worker insulin use Sugars reviewed; most readings < [...] of care. Atherosclerosis of coronary artery of [place] heart without angina pectoris, unspecified vessel or [...] [facility] insulin use Sugars reviewed; remain in 80-90s [...] fibrillation, unspecified type Has seen cardiology in [place] 01/2024. Managed on eliquis 5mg BID. No excessive bruising or bleeding on exam. Atherosclerosis of coronary artery of [place] heart without angina pectoris, unspecified vessel or [...] Planning POLST reviewed; DNR/Select. Daughter Maggie is MARTIN. 04/13/2024
--- OUTSIDE RECORDS SUMMARY | 2024-09-04 07:23 | XMS_ITS | CCD ---
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 Care Veterinary X Ray Operator Name Role Phone Teresa Vivas Primary Care Provider Un available Unavailable Chronic Care Management Unavaila ble Summary Purpose DataExchange Insurance Providers Payer name Policy type / Coverage type Covered alliance party ID Effective Begin Date Effective End Date [place] Medicare Risk [id number] Unknown Un known Family history Mother Diagnosis Age At Onset Stroke Unknown Social History Social History Element Codes Description Effec tive Dates Marital status Unknown 04/13/2024 Marital status Unknown 04/13/2024 Living arrangements Unknown Assisted Living 04/[address]: 3800260 Former smoker 04/[address]: 1681785 Former smoker 04/[address]: 223323232 No Alcohol Consum ption 04/13/[address]: 148292 Currently drin ks alcohol 04/13/2024 Sexually Active? [...] No Inactive Date A ctive SIMVASTATIN RxNorm: 84749 04/13/2024 No Inactive D ate Active Penicillin Unknown 04/13/2024 No Inactive Date A ctive CLOPIDOGREL Unknown 03/23/2024 No Inactive Date Active naproxen RxNorm: 7258 04/13/2024 No Inactive Date Active levofloxacin RxNorm: 61172 03/23/2024 No Inactive Date Active Levemir Unknown 03/23/2024 No Inactive Date Ac tive metformin RxNorm: 745543 04/13/2024 No Inactive Da te Active ESTROGENS Unknown 03/23/2024 No Inactive Date Ac tive Atenolol RxNorm: 1202 04/13/2024 No Inactive Date Active metoprolol succinate RxNorm: 567379 03/23/2024 No Inactive Date Active Januvia RxNorm: 810203 04/13/2024 No Inactive Da te Active furosemide RxNorm: 4603 03/23/2024 No Inactive Balaji e Active azithromycin RxNorm: 72467 04/13/2024 No Inactive Date Active losartan RxNorm: 814037 04/13/2024 No Inactive Da te Active NSAIDS Unknown 03/23/2024 No Inactive Date Ac tive Amlodipine RxNorm: 838192 04/13/2024 No Inactive D ate Active LISINOPRIL RxNorm: 09886 04/13/2024 No Inactive Da te Active PIOGLITAZONE [...] diabetes mellitus without complication, 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 whether terminal superintendent insulin use ICD-10: E11.9 ICD-9: 250.00 06/29/2024 Active ACP (advance care planning) SNOMED CT: 3 04503567 ICD-10: Z71.89 ICD-9: V65.49 06/01/2024 Active Adult general medical exam SNOMED CT: 30 7628499 ICD-10: Z00.00 ICD-9: V70.9 06/01/2024 Active Atherosclerosis of coronary artery of [place] heart without angina pectoris, unspecified vessel or lesion type ICD-10: I25.10 ICD-9: 414.01 06/01/2024 Active Atrial fibrillation, unspecified type ICD-10: I48.91 ICD-9: 427.31 06/01/2024 Active 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 ICD-9: 311 06/01/[address]: 397262464 ICD-10: R54 ICD-9: 797 06/01/2024 Active Mixed [...] fracture of L1 vertebra, sequela SNOMED CT: 803524449 ICD-10: S32.010S ICD-9: 905.1 04/13/2024 Active Dementia in other diseases classified elsewhere, unspecified severity, without behavioral disturbance, psychotic disturbance, mood disturbance, and anxiety ICD-10: F02.80 04/13/[address]: 292004229 ICD-10: K57.90 ICD-9: 562.10 04/13/2024 Active History of breast cancer SNOMED CT: 4290 56071 ICD-10: Z85.3 ICD-9: V10.3 04/13/2024 Active History of melanoma SNOMED CT: 067737048 ICD-10: Z85.820 ICD-9: V10.82 04/13/2024 Active History of TIA (transient ischemic attack) SNOMED CT: 312065732 ICD-10: Z86.73 ICD-9: V12.54 04/13/2024 Active Hyperlipidemia, unspecified hyperlipidemia type SNOMED CT: 27403969 ICD-10: E78.5 ICD-9: 272.4 04/13/2024 Active Statin intolerance SNOMED CT: 291522231 ICD-10: Z78.9 ICD-9: 995.27 04/13/2024 Active Urinary incontinence, unspecified type SNOMED CT: 687321360 ICD-10: R32 ICD-9: 788.30 04/13/2024 Active Vascular dementia, unspecifi ed severity, without behavioral disturbance, psychotic disturbance, mood disturbance, and anxiety ICD-10: F01.50 04/13/2024 Active Medications Medication Codes Instructions Start Date Stop Date Status Fill Instructions Vitron-C 65 mg iron-125 mg tablet,delayed release RxNorm: 5556316 1 Tablet(s) Oral QOD every other day 07/23/19 25 025 Inactive *URGENT REQUEST* PLEASE SEND REFILLS FOR CYCLE FILL. THANK YOU! Oyster Shell Calcium-500 500 mg (as carbonate 1,250 mg) tablet RxNorm: 454311 1 TABLET ORALLY DAILY FOR BONE HEALTH 07/09/19 25 026 Active PLEASE SEND REFILLS.PHARMA [employer] PLEASE PROFILE FOR FUTURE USE-[facility] Co Q-10 200 mg capsule RxNorm: 315276 1 CAPSULE ORALLY DAILY W/ 100MG CAP FOR A TOTAL DOSE OF 300MG (DX: SUPPLEMENT) 07/09/19 25 026 Active PLEASE SEND REFILLS.PHARMA CY PLEASE PROFILE FOR FUTURE USE-[facility] oxybutynin chloride ER 10 mg tablet,extended release 24 hr RxNorm: 477491 1 TAB ORALLY EVERY EVENING FOR BLADDER SPASMS 07/09/19 25 026 Active PLEASE SEND REFILLS.PHARMA CY PLEASE PROFILE FOR FUTURE USE-[facility] Trelegy Ellipta 200 mcg-62.5 mcg-25 mcg powder for inhalation RxNorm: 9344133 INHALE 1 PUFF INTO THE LUNGS EVERY 24 HOURS (DX: CHRONIC OBSTRUCTIVE PULMONARY DISEASE) 07/09/19 25 Active PLEASE SEND REFILLS.PHARMA CY PLEASE PROFILE FOR FUTURE USE-[facility] [facility] fluoxetine 10 mg capsule RxNorm: 788294 1 CAPSULE ORALLY DAILY (DX: DEPRESSION) (DX: ANXIETY) 07/09/19 25 Active PLEASE SEND REFILLS.PHARMA CY PLEASE PROFILE FOR FUTURE USE-[facility] cyanocobalamin (vit B-12) 500 mcg tablet RxNorm: 771495 1 TABLET ORALLY DAILY (DX: ANEMIA) 07/09/19 25 025 Inactive PLEASE SEND REFILLS.PHARMA CY PLEASE PROFILE FOR FUTURE USE-[facility] irbesartan 150 mg tablet RxNorm: 282007 1 TABLET ORALLY 2 TIMES DAILY (DX: HYPERTENSION) 07/09/19 Active PLEASE SEND REFILLS.PHARMA CY PLEASE PROFILE FOR FUTURE USE-[facility] cholecalciferol (vitamin D3) 25 mcg (1,000 unit) tablet RxNorm: 439403 1 TABLET ORALLY DAILY (DX: VITAMIN D DEFICIENCY) 07/09/19 Active PLEASE SEND REFILLS.PHARMA CY PLEASE PROFILE FOR FUTURE USE-[employer] quetiapine 25 mg tablet RxNorm: 937679 1 TABLET ORALLY AT BEDTIME (DX: ANXIETY) 07/09/19 026 Active PLEASE SEND REFILLS.PHARMA CY PLEASE PROFILE FOR FUTURE USE-[facility] hydrochlorothiazide 25 mg tablet RxNorm: 544944 1 TABLET ORALLY DAILY (DX: HYPERTENSION) 07/09/19 25 025 Inactive PLEASE SEND REFILLS.PHARMA CY PLEASE PROFILE FOR FUTURE USE-[facility] coenzyme Q10 100 mg capsule RxNorm: 497548 1 CAPSULE ORALLY DAILY W/ 200MG CAP FOR A TOTAL DOSE OF 300MG (DX: SUPPLEMENT) 07/09/19 25 Active PLEASE SEND REFILLS.PHARMA CY PLEASE PROFILE FOR FUTURE USE-[facility] donepezil 10 mg tablet RxNorm: 878830 1 TABLET ORALLY AT BEDTIME (DX: DEMENTIA) 07/09/19 25 026 Active PLEASE SEND REFILLS.PHARMA CY PLEASE PROFILE FOR FUTURE USE-[facility] alcohol swabs RxNorm: 681097 USE DIRECTED 07/09/19 25 026 Active PLEASE SEND REFILLS.PHARMA CY PLEASE PROFILE FOR FUTURE USE-[facility] Vitron-C 65 mg iron-125 mg tablet,delayed release RxNorm: 5563013 1 Tablet(s) Oral QOD every other day 07/09/19 25 025 Inactive PLEASE SEND REFILLS.PHARMA CY PLEASE PROFILE FOR FUTURE USE-[facility] [facility] Contour Next EZ Meter RxNorm: USE TO JENIFER T BLOOD GLUCOSE DAILY (DX: DIABETES TYPE 2) 07/09/19 25 025 Inactive PLEASE SEND REFILLS.PHARMA CY PLEASE PROFILE FOR FUTURE USE-[facility] Alejandra Protect (zinc oxide) 12 % topical cream RxNorm: 119959 APPLY TO RIGHT BUTTOCK 2 TIMES DAILY;APPLY TO RIGHT BUTTOCK NEEDED WITH SOILING 06/12/19 25 026 Active albuterol sulfate HFA 90 mcg/actuation aerosol inhaler RxNorm: 9454374 Inhale 2 Puff(s) Inhalation Q4H every four hours as needed 06/01/19 25 025 Inactive Alejandra Protect (zinc oxide) 12 % topical cream RxNorm: 446348 cream Topical apply to right buttocks BID and PRN with soiling 06/01/19 25 025 Inactive Lantus Solostar U-100 Insulin 100 unit/mL (3 mL) subcutaneous pen RxNorm: 848466 Unit(s) Subcutaneous prime en with 2 units, then inject 8 units SQ QD at bedtime 05/18/19 25 025 Inactive potassium chloride ER 10 mEq tablet,extended release RxNorm: 997763 Take 1 Tablet(s) Oral QD 04/12/19 25 No Stop Date Active acetaminophen 500 mg tablet RxNorm: 535255 Take 2 Tablet(s) Oral TID as needed 04/12/19 25 No Stop Date Active fluoxetine 10 mg capsule RxNorm: 348948 Take 1 Capsule(s) Oral QD 02 025 Inactive hydrochlorothiazide 25 mg tablet RxNorm: 512032 Take 1 Tablet(s) Oral QD 04/12/19 025 Inactive Oyster Shell Calcium 500 mg (as calcium carbonate 1,250 mg) tablet RxNorm: 468893 Take 1 Tablet(s) Oral QD 04/12/19 025 Inactive Co Q-10 200 mg capsule RxNorm: 404541 Capsule(s) Oral take 1 cap po daily with 100mg tab to =300mg daily 04/12/19 025 Inactive Co Q-10 100 mg capsule RxNorm: 442139 Capsule(s) Oral take 1 cap daily along with 200mg tab to =300mg daily 04/12/19 Inactive quetiapine 25 mg tablet RxNorm: 033709 Take 1 Tablet(s) Oral QHS every night at bedtime 04/12/19 025 Inactive Vitamin D3 25 mcg (1,000 unit) tablet RxNorm: 131673 Take 1 Tablet(s) Oral QD 04/12/19 025 Inactive donepezil 10 mg tablet RxNorm: 613853 Take 1 Tablet(s) Oral QHS every night at bedtime 04/12/19 025 Inactive cyanocobalamin (vit B-12) 500 mcg tablet RxNorm: 825364 Take 1 Tablet(s) Oral QD 04/12/19 025 Inactive oxybutynin chloride ER 10 mg tablet,extended release 24 hr RxNorm: 945428 Take 1 Tablet(s) Oral QPM every evening 04/12/19 025 Inactive irbesartan 150 mg tablet RxNorm: 879224 Take 1 Tablet(s) Oral BID 04/12/19 025 Inactive Trelegy Ellipta 200 mcg-62.5 mcg-25 mcg powder for inhalation RxNorm: 4905011 Inhale 1 Puff(s) Inhalation every 24 hours 04/12/19 025 Inactive Vitron-C 65 mg iron-125 mg tablet,delayed release RxNorm: 8324717 Take 1 Tablet(s) Oral QOD every other day 04/12/1901 08/01/2 025 Inactive Eliquis 5 mg tablet RxNorm: 6612621 Take 1 Tablet(s) Oral BID 04/12/19 25 025 Inactive Lantus Solostar U-100 Insulin 100 unit/mL (3 mL) subcutaneous pen RxNorm: 766439 Unit(s) Subcutaneous prime en with 2 units, [...] data Instructions Comment Date Alyx resides at [facility] since about 2021. Previously lived independently in [place]. . Has one daughter Maggie who is involved in healthcare. PMH: History of breast cancer and melanoma, mixed dementia, depression, CAD, HLD, history of CVA/TIA, compression fx of L1 vertebrae, urinary incontinence, hearing loss, osteopeniaPrimary contact: Maggie Gallegos (Daughter)Code Status: DNR/SelectLab Schedule: Mar/SepSpecialists: [facility] (Q6M), Cardiology [facility] (MD Echo) 08/06/2024
--- OUTSIDE RECORDS SUMMARY | 2024-09-04 07:24 | XMS_ITS | CCD ---
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 Care Manager Pool Name Role Phone Teresa Vivas Primary Care Provider Un available Unavailable Chronic Care Management Unavaila ble Summary Purpose DataExchange Insurance Providers Payer name Policy type / Coverage type Covered alliance party ID Effective Begin Date Effective End Date [place] Medicare Risk [id number] Unknown Un known Family history Mother Diagnosis Age At Onset Stroke Unknown Social History Social History Element Codes Description Effec tive Dates Marital status Unknown 04/13/2024 Marital status Unknown 04/13/2024 Living arrangements Unknown Assisted Living 04/[address]: 4599089 Former smoker 04/[address]: 7755808 Former smoker 04/[address]: 217473897 No Alcohol Consum ption 04/13/[address]: 649378 Currently drin ks alcohol 04/13/2024 Sexually Active? [...] No Inactive Date A ctive SIMVASTATIN RxNorm: 08576 04/13/2024 No Inactive D ate Active Penicillin Unknown 04/13/2024 No Inactive Date A ctive CLOPIDOGREL Unknown 03/23/2024 No Inactive Date Active naproxen RxNorm: 7258 04/13/2024 No Inactive Date Active levofloxacin RxNorm: 13071 03/23/2024 No Inactive Date Active Levemir Unknown 03/23/2024 No Inactive Date Ac tive metformin RxNorm: 253510 04/13/2024 No Inactive Da te Active ESTROGENS Unknown 03/23/2024 No Inactive Date Ac tive Atenolol RxNorm: 1202 04/13/2024 No Inactive Date Active metoprolol succinate RxNorm: 509200 03/23/2024 No Inactive Date Active Januvia RxNorm: 407446 04/13/2024 No Inactive Da te Active furosemide RxNorm: 4603 03/23/2024 No Inactive Balaji e Active azithromycin RxNorm: 89140 04/13/2024 No Inactive Date Active losartan RxNorm: 862296 04/13/2024 No Inactive Da te Active NSAIDS Unknown 03/23/2024 No Inactive Date Ac tive Amlodipine RxNorm: 786288 04/13/2024 No Inactive D ate Active LISINOPRIL RxNorm: 29807 04/13/2024 No Inactive Da te Active PIOGLITAZONE DERIVATIVES Unknown 04/13/2024 No I nactive Date Active Problems Condition Codes Effective Dates Condition St atus Atrial fibrillation, unspecified type ICD-10: I48.91 ICD-9: 427.31 08/10/2024 Active Chronic obstructive pulmonar y disease, unspecified COPD type ICD-10: J44.9 ICD-9: 496 08/10/2024 Active Pressure injury of left buttock, stage 2 ICD-10: L89.322 ICD-9: 707.05 08/10/2024 Active Unsteady gait ICD-10: R26.81 ICD-9: 781.2 08/10/2024 Active Vascular dementia, unspecifi ed severity, without behavioral disturbance, psychotic disturbance, mood disturbance, and anxiety ICD-10: F01.50 08/10/2024 Active Acute cystitis without hematuria ICD-10: N30.00 ICD-9: 595.0 08/10/2024 Resolved Chronic heart failure with preserved ejection fraction ICD-10: I50.32 ICD-9: 428.9 06/29/2024 Active Iron deficiency anemia, unspecified iron deficiency anemia type ICD-10: D50.9 ICD-9: 280.9 06/29/2024 Active Type 2 diabetes mellitus without complication, unspecified whether intermediate insulin use ICD-10: E11.9 ICD-9: 250.00 06/29/2024 Active ACP (advance care planning) SNOMED CT: 3 56699363 ICD-10: Z71.89 ICD-9: V65.49 06/01/2024 Active Adult general medical exam SNOMED CT: 30 3540881 ICD-10: Z00.00 ICD-9: V70.9 06/01/2024 Active Atherosclerosis of coronary artery of [place] heart without angina pectoris, unspecified vessel or lesion type ICD-10: I25.10 ICD-9: 414.01 06/01/2024 Active 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 ICD-9: 311 06/01/[address]: 421353856 ICD-10: R54 ICD-9: 797 06/01/2024 Active 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 ICD-9: 331.0 06/01/2024 Active CAMILO (obstructive sleep apnea) ICD-10: G4 7.33 ICD-9: 327.23 06/01/2024 Active Osteopenia, unspecified location ICD-10: M85.80 ICD-9: 733.90 06/01/2024 Active Primary hypertension ICD-10: I10 ICD-9: 401.9 06/01/2024 Active Unintentional weight loss ICD-10: R63.4 ICD-9: 783.21 06/01/2024 Active Venous insufficiency of both lower extremities ICD-10: I87.2 ICD-9: 459.81 06/01/2024 Active Advanced care planning - to document end of life discussions Unknown 04/13/2024 Active Diabetes mellitus Type 2 Unknown 04/13/2024 Act floyd Compression fracture of L1 vertebra, sequela SNOMED CT: 812626943 ICD-10: S32.010S ICD-9: 905.1 04/13/2024 Active Dementia in other diseases classified elsewhere, unspecified severity, without behavioral disturbance, psychotic disturbance, mood disturbance, and anxiety ICD-10: F02.80 04/13/[address]: 106599762 ICD-10: K57.90 ICD-9: 562.10 04/13/2024 Active History of breast cancer SNOMED CT: 4290 60876 ICD-10: Z85.3 ICD-9: V10.3 04/13/2024 Active History of melanoma SNOMED CT: 636161202 ICD-10: Z85.820 ICD-9: V10.82 04/13/2024 Active History of TIA (transient ischemic attack) SNOMED CT: 532499888 ICD-10: Z86.73 ICD-9: V12.54 04/13/2024 Active Hyperlipidemia, unspecified hyperlipidemia type SNOMED CT: 36245730 ICD-10: E78.5 ICD-9: 272.4 04/13/2024 Active Statin intolerance SNOMED CT: 360620927 ICD-10: Z78.9 ICD-9: 995.27 04/13/2024 Active Urinary incontinence, unspecified type SNOMED CT: 940467518 ICD-10: R32 ICD-9: 788.30 04/13/2024 Active Medications Medication Codes Instructions Start Date Stop Date Status Fill Instructions Contour Next EZ Meter RxNorm: USE TO JENIFER T BLOOD GLUCOSE DAILY (DX: DIABETES TYPE 2) 08/18/19 25 025 Active Contour Next Test Strips RxNorm: Use 1 strip BID 08/17/19 25 026 Active carvedilol 6.25 mg tablet RxNorm: 029418 Take 1 Tablet(s) Oral BID 08/10/19 25 No Stop Date Active nystatin 100,000 unit/gram topical powder RxNorm: 981089 Gram(s) Topical apply to affected area BID 08/10/19 25 025 Inactive hydrochlorothiazide 50 mg tablet RxNorm: 380633 Take 1 Tablet(s) Oral QD 08/07/19 25 No Stop Date Active Lantus Solostar U-100 Insulin 100 unit/mL (3 mL) subcutaneous pen RxNorm: 285557 Unit(s) Subcutaneous inject 14 units every am 08/07/19 25 No Stop Date Active Vitron-C 65 mg iron-125 mg tablet,delayed release RxNorm: 5037463 1 Tablet(s) Oral QOD every other day 07/23/19 25 025 Inactive *URGENT REQUEST* PLEASE SEND REFILLS FOR CYCLE FILL. THANK YOU! Oyster Shell Calcium-500 500 mg (as carbonate 1,250 mg) tablet RxNorm: 118482 1 TABLET ORALLY DAILY FOR BONE HEALTH 07/09/19 25 026 Active PLEASE SEND REFILLS.PHARMA CY PLEASE PROFILE FOR FUTURE USE-[facility] Co Q-10 200 mg capsule RxNorm: 740157 1 CAPSULE ORALLY DAILY W/ 100MG CAP FOR A TOTAL DOSE OF 300MG (DX: SUPPLEMENT) 07/09/19 25 026 Active PLEASE SEND REFILLS.PHARMA CY PLEASE PROFILE FOR FUTURE USE-[facility] oxybutynin chloride ER 10 mg tablet,extended release 24 hr RxNorm: 257729 1 TAB ORALLY EVERY EVENING FOR BLADDER SPASMS 07/09/19 25 026 Active PLEASE SEND REFILLS.PHARMA CY PLEASE PROFILE FOR FUTURE USE-[facility] Trelegy Ellipta 200 mcg-62.5 mcg-25 mcg powder for inhalation RxNorm: 3848318 INHALE 1 PUFF INTO THE LUNGS EVERY 24 HOURS (DX: CHRONIC OBSTRUCTIVE PULMONARY DISEASE) 07/09/19 25 Active PLEASE SEND REFILLS.PHARMA CY PLEASE PROFILE FOR FUTURE USE-[facility] fluoxetine 10 mg capsule RxNorm: 053018 1 CAPSULE ORALLY DAILY (DX: DEPRESSION) (DX: ANXIETY) 07/09/19 25 Active PLEASE SEND REFILLS.PHARMA CY PLEASE PROFILE FOR FUTURE USE-[facility] irbesartan 150 mg tablet RxNorm: 489583 1 TABLET ORALLY 2 TIMES DAILY (DX: HYPERTENSION) 07/09/19 25 026 Active PLEASE SEND REFILLS.PHARMA CY PLEASE PROFILE FOR FUTURE USE-[facility] cholecalciferol (vitamin D3) 25 mcg (1,000 unit) tablet RxNorm: 169344 1 TABLET ORALLY DAILY (DX: VITAMIN D DEFICIENCY) 07/09/19 25 026 Active PLEASE SEND REFILLS.PHARMA CY PLEASE PROFILE FOR FUTURE USE-[facility] quetiapine 25 mg tablet RxNorm: 138624 1 TABLET ORALLY AT BEDTIME (DX: ANXIETY) 07/09/19 026 Active PLEASE SEND REFILLS.PHARMA CY PLEASE PROFILE FOR FUTURE USE-[facility] coenzyme Q10 100 mg capsule RxNorm: 796168 1 CAPSULE ORALLY DAILY W/ 200MG CAP FOR A TOTAL DOSE OF 300MG (DX: SUPPLEMENT) 07/09/19 25 026 Active PLEASE SEND REFILLS.PHARMA CY PLEASE PROFILE FOR FUTURE USE-[facility] donepezil 10 mg tablet RxNorm: 025741 1 TABLET ORALLY AT BEDTIME (DX: DEMENTIA) 07/09/19 25 026 Active PLEASE SEND REFILLS.PHARMA CY PLEASE PROFILE FOR FUTURE USE-[facility] alcohol swabs RxNorm: 080689 USE DIRECTED 07/09/19 25 Active PLEASE SEND REFILLS.PHARMA CY PLEASE PROFILE FOR FUTURE USE-[facility] Vitron-C 65 mg iron-125 mg tablet,delayed release RxNorm: 5922345 1 Tablet(s) Oral QOD every other day 07/09/19 25 025 Inactive PLEASE SEND REFILLS.PHARMA CY PLEASE PROFILE FOR FUTURE USE-[facility] cyanocobalamin (vit B-12) 500 mcg tablet RxNorm: 486616 1 TABLET ORALLY DAILY (DX: ANEMIA) 07/09/19 25 025 Inactive PLEASE SEND REFILLS.PHARMA CY PLEASE PROFILE FOR FUTURE USE-[facility] hydrochlorothiazide 25 mg tablet RxNorm: 275307 1 TABLET ORALLY DAILY (DX: HYPERTENSION) 07/09/19 025 Inactive PLEASE SEND REFILLS.PHARMA CY PLEASE PROFILE FOR FUTURE USE-[facility] Contour Next EZ Meter RxNorm: USE TO JENIFER T BLOOD GLUCOSE DAILY (DX: DIABETES TYPE 2) 07/09/19 25 025 Inactive PLEASE SEND REFILLS.PHARMA CY PLEASE PROFILE FOR FUTURE USE-Medical[facility] Alejandra Protect (zinc oxide) 12 % topical cream RxNorm: 947464 APPLY TO RIGHT BUTTOCK 2 TIMES DAILY;APPLY TO RIGHT BUTTOCK NEEDED WITH SOILING 06/12/19 25 026 Active albuterol sulfate HFA 90 mcg/actuation aerosol inhaler RxNorm: 0521534 Inhale 2 Puff(s) Inhalation Q4H every four hours as needed 06/01/19 25 025 Inactive Alejandra Protect (zinc oxide) 12 % topical cream RxNorm: 127447 cream Topical apply to right buttocks BID and PRN with soiling 06/01/19 25 025 Inactive Lantus Solostar U-100 Insulin 100 unit/mL (3 mL) subcutaneous pen RxNorm: 067867 Unit(s) Subcutaneous prime en with 2 units, then inject 8 units SQ QD at bedtime 05/18/19 25 025 Inactive potassium chloride ER 10 mEq tablet,extended release RxNorm: 375123 Take 1 Tablet(s) Oral QD 04/12/19 No Stop Date Active acetaminophen 500 mg tablet RxNorm: 837092 Take 2 Tablet(s) Oral TID as needed 04/12/19 No Stop Date Active fluoxetine 10 mg capsule RxNorm: 310088 Take 1 Capsule(s) Oral QD 04/12/19 025 Inactive hydrochlorothiazide 25 mg tablet RxNorm: 275575 Take 1 Tablet(s) Oral QD 04/12/19 025 Inactive Oyster Shell Calcium 500 mg (as calcium carbonate 1,250 mg) tablet RxNorm: 231088 Take 1 Tablet(s) Oral QD 04/12/19 025 Inactive Co Q-10 200 mg capsule RxNorm: 806787 Capsule(s) Oral take 1 cap po daily with 100mg tab to =300mg daily 04/12/19 025 Inactive Co Q-10 100 mg capsule RxNorm: 859491 Capsule(s) Oral take 1 cap daily along with 200mg tab to =300mg daily 04/12/19 025 Inactive quetiapine 25 mg tablet RxNorm: 107719 Take 1 Tablet(s) Oral QHS every night at bedtime 04/12/19 025 Inactive Vitamin D3 25 mcg (1,000 unit) tablet RxNorm: 655394 Take 1 Tablet(s) Oral QD 04/12/19 025 Inactive donepezil 10 mg tablet RxNorm: 830073 Take 1 Tablet(s) Oral QHS every night at bedtime 04/12/19 025 Inactive cyanocobalamin (vit B-12) 500 mcg tablet RxNorm: 642639 Take 1 Tablet(s) Oral QD 04/12/19 25 025 Inactive oxybutynin chloride ER 10 mg tablet,extended release 24 hr RxNorm: 448418 Take 1 Tablet(s) Oral QPM every evening 04/12/19 025 Inactive irbesartan 150 mg tablet RxNorm: 636235 Take 1 Tablet(s) Oral BID 04/12/19 25 025 Inactive Trelegy Ellipta 200 mcg-62.5 mcg-25 mcg powder for inhalation RxNorm: 1900188 Inhale 1 Puff(s) Inhalation every 24 hours 04/12/19 025 Inactive Vitron-C 65 mg iron-125 mg tablet,delayed release RxNorm: 4175145 Take 1 Tablet(s) Oral QOD every other day 04/12/19 025 Inactive Eliquis 5 mg tablet RxNorm: 1918983 Take 1 Tablet(s) Oral BID 04/12/19 025 Inactive Lantus Solostar U-100 Insulin 100 unit/mL (3 mL) subcutaneous pen RxNorm: 177778 Unit(s) Subcutaneous prime en with 2 units, then inject 10 units SQ QD at bedtime 04/12/19 25 Inactive Medication Administered No Medication Administered data [...] data Instructions Comment Date Alyx resides at [facility] since about 2021. Previously lived independently in [place]. . Has one daughter Maggie who is involved in healthcare. PMH: History of breast cancer and melanoma, mixed dementia, depression, CAD, HLD, history of CVA/TIA, compression fx of L1 vertebrae, urinary incontinence, hearing loss, osteopeniaPrimary contact: Maggie Gallegos (Daughter)Code Status: DNR/SelectLab Schedule: Mar/SepSpecialists: [facility] (Q6M), Cardiology [facility] ([facility]) 08/06/2024
--- OUTSIDE RECORDS SUMMARY | 2024-09-04 07:24 | XMS_ITS | CCD ---
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 Name Role Phone Teresa Vivas Primary Care Provider Un available Unavailable Chronic Care Management Unavaila ble Summary Purpose DataExchange Insurance Providers Payer name Policy type / Coverage type Covered green party ID Effective Begin Date Effective End Date BCBS of [facility] Medicare Risk [id number] Unknown Un known Family history Mother Diagnosis Age At Onset Stroke Unknown Social History Social History Element Codes Description Effec tive Dates Marital status Unknown 04/13/2024 Marital status Unknown 04/13/2024 Living arrangements Unknown Assisted Living 04/[address]: 2698710 Former smoker 04/[address]: 0604716 Former smoker 04/[address]: 611942933 No Alcohol Consum ption 04/13/[address]: 014964 Currently drin ks alcohol 04/13/2024 Sexually Active? [...] No Inactive Date A ctive SIMVASTATIN RxNorm: 67708 04/13/2024 No Inactive D ate Active Penicillin Unknown 04/13/2024 No Inactive Date A ctive CLOPIDOGREL Unknown 03/23/2024 No Inactive Date Active naproxen RxNorm: 7258 04/13/2024 No Inactive Date Active levofloxacin RxNorm: 58544 03/23/2024 No Inactive Date Active Levemir Unknown 03/23/2024 No Inactive Date Ac tive metformin RxNorm: 933911 04/13/2024 No Inactive Da te Active ESTROGENS Unknown 03/23/2024 No Inactive Date Ac tive Atenolol RxNorm: 1202 04/13/2024 No Inactive Date Active metoprolol succinate RxNorm: 987923 03/23/2024 No Inactive Date Active Januvia RxNorm: 605947 04/13/2024 No Inactive Da te Active furosemide RxNorm: 4603 03/23/2024 No Inactive Balaji e Active azithromycin RxNorm: 78642 04/13/2024 No Inactive Date Active losartan RxNorm: 314480 04/13/2024 No Inactive Da te Active NSAIDS Unknown 03/23/2024 No Inactive Date Ac tive Amlodipine RxNorm: 780043 04/13/2024 No Inactive D ate Active LISINOPRIL RxNorm: 83352 04/13/2024 No Inactive Da te Active PIOGLITAZONE [...] chcf insulin use ICD-10: E11.9 ICD-9: 250.00 08/31/2024 [...] ACP (advance care planning) SNOMED CT: 3 71682573 ICD-10: Z71.89 ICD-9: V65.49 06/01/2024 Active Adult general medical exam SNOMED CT: 30 6798133 ICD-10: Z00.00 ICD-9: V70.9 06/01/2024 Active Atherosclerosis of coronary artery of [place] heart without angina pectoris, unspecified vessel or lesion type ICD-10: I25.10 ICD-9: 414.01 06/01/2024 Active 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 ICD-9: 311 06/01/[address]: 271986739 ICD-10: R54 ICD-9: 797 06/01/2024 Active Mixed [...] fracture of L1 vertebra, sequela SNOMED CT: 196627067 ICD-10: S32.010S ICD-9: 905.1 04/13/2024 Active Dementia in other diseases classified elsewhere, unspecified severity, without behavioral disturbance, psychotic disturbance, mood disturbance, and anxiety ICD-10: F02.80 04/13/[address]: 111897608 ICD-10: K57.90 ICD-9: 562.10 04/13/2024 Active History of breast cancer SNOMED CT: 4290 61235 ICD-10: Z85.3 ICD-9: V10.3 04/13/2024 Active History of melanoma SNOMED CT: 408746139 ICD-10: Z85.820 ICD-9: V10.82 04/13/2024 Active History of TIA (transient ischemic attack) SNOMED CT: 284609918 ICD-10: Z86.73 ICD-9: V12.54 04/13/2024 Active Hyperlipidemia, unspecified hyperlipidemia type SNOMED CT: 06888143 ICD-10: E78.5 ICD-9: 272.4 04/13/2024 Active Statin intolerance SNOMED CT: 783206888 ICD-10: Z78.9 ICD-9: 995.27 04/13/2024 Active Medications Medication Codes Instructions Start Date Stop Date Status Fill Instructions albuterol sulfate 2.5 mg/3 mL (0.083 %) solution for nebulization RxNorm: 881410 Take 3 Milliliter(s) Inhalation BID and BID PRN for shortness of breath/cough. 09/01/19 25 026 Active furosemide 40 mg tablet RxNorm: 851120 Take 1 Tablet(s) Oral QD 08/20/19 25 025 Inactive furosemide 40 mg tablet RxNorm: 398422 Take 1 Tablet(s) Oral QD 08/20/19 25 025 Inactive Contour Next EZ Meter RxNorm: USE TO JENIFER T BLOOD GLUCOSE DAILY (DX: DIABETES TYPE 2) 08/18/19 25 025 Active Contour Next Test Strips RxNorm: Use 1 strip BID 08/17/19 25 026 Active carvedilol 6.25 mg tablet RxNorm: 683848 Take 1 Tablet(s) Oral BID 08/10/19 25 No Stop Date Active nystatin 100,000 unit/gram topical powder RxNorm: 423255 Gram(s) Topical apply to affected area BID 08/10/19 25 025 Inactive hydrochlorothiazide 50 mg tablet RxNorm: 541382 Take 1 Tablet(s) Oral QD 08/07/19 25 No Stop Date Active Lantus Solostar U-100 Insulin 100 unit/mL (3 mL) subcutaneous pen RxNorm: 364630 Unit(s) Subcutaneous inject 14 units every am 08/07/19 25 No Stop Date Active Vitron-C 65 mg iron-125 mg tablet,delayed release RxNorm: 1558504 1 Tablet(s) Oral QOD every other day 07/23/19 25 025 Inactive *URGENT REQUEST* PLEASE SEND REFILLS FOR CYCLE FILL. THANK YOU! Oyster Shell Calcium-500 500 mg (as carbonate 1,250 mg) tablet RxNorm: 250289 1 TABLET ORALLY DAILY FOR BONE HEALTH 07/09/19 25 026 Active PLEASE SEND REFILLS.PHARMA CY PLEASE PROFILE FOR FUTURE USE-MedicalRec ords Co Q-10 200 mg capsule RxNorm: 608871 1 CAPSULE ORALLY DAILY W/ 100MG CAP FOR A TOTAL DOSE OF 300MG (DX: SUPPLEMENT) 07/09/19 25 026 Active PLEASE SEND REFILLS.PHARMA CY PLEASE PROFILE FOR FUTURE USE-MedicalRec ords oxybutynin chloride ER 10 mg tablet,extended release 24 hr RxNorm: 960350 1 TAB ORALLY EVERY EVENING FOR BLADDER SPASMS 07/09/19 25 026 Active PLEASE SEND REFILLS.PHARMA CY PLEASE PROFILE FOR FUTURE USE-MedicalRec ords Trelegy Ellipta 200 mcg-62.5 mcg-25 mcg powder for inhalation RxNorm: 3843673 INHALE 1 PUFF INTO THE LUNGS EVERY 24 HOURS (DX: CHRONIC OBSTRUCTIVE PULMONARY DISEASE) 07/09/19 25 026 Active PLEASE SEND REFILLS.PHARMA CY PLEASE PROFILE FOR FUTURE USE-MedicalRec ords fluoxetine 10 mg capsule RxNorm: 215731 1 CAPSULE ORALLY DAILY (DX: DEPRESSION) (DX: ANXIETY) 07/09/19 026 Active PLEASE SEND REFILLS.PHARMA CY PLEASE PROFILE FOR FUTURE USE-MedicalRec ords irbesartan 150 mg tablet RxNorm: 522867 1 TABLET ORALLY 2 TIMES DAILY (DX: HYPERTENSION) 07/09/19 026 Active PLEASE SEND REFILLS.PHARMA CY PLEASE PROFILE FOR FUTURE USE-MedicalRec ords cholecalciferol (vitamin D3) 25 mcg (1,000 unit) tablet RxNorm: 109624 1 TABLET ORALLY DAILY (DX: VITAMIN D DEFICIENCY) 07/09/19 026 Active PLEASE SEND REFILLS.PHARMA CY PLEASE PROFILE FOR FUTURE USE-MedicalRec ords quetiapine 25 mg tablet RxNorm: 304032 1 TABLET ORALLY AT BEDTIME (DX: ANXIETY) 07/09/19 Active PLEASE SEND REFILLS.PHARMA CY PLEASE PROFILE FOR FUTURE USE-MedicalRec ords coenzyme Q10 100 mg capsule RxNorm: 852438 1 CAPSULE ORALLY DAILY W/ 200MG CAP FOR A TOTAL DOSE OF 300MG (DX: SUPPLEMENT) 07/09/19 Active PLEASE SEND REFILLS.PHARMA CY PLEASE PROFILE FOR FUTURE USE-MedicalRec ords donepezil 10 mg tablet RxNorm: 139590 1 TABLET ORALLY AT BEDTIME (DX: DEMENTIA) 07/09/19 Active PLEASE SEND REFILLS.PHARMA CY PLEASE PROFILE FOR FUTURE USE-Medical[facility] or[facility] alcohol swabs RxNorm: 758422 USE DIRECTED 07/09/19 Active PLEASE SEND REFILLS.PHARMA CY PLEASE PROFILE FOR FUTURE USE-MedicalRec ords Vitron-C 65 mg iron-125 mg tablet,delayed release RxNorm: 8222452 1 Tablet(s) Oral QOD every other day 07/09/19 25 025 Inactive PLEASE SEND REFILLS.PHARMA CY PLEASE PROFILE FOR FUTURE USE-MedicalRec ords cyanocobalamin (vit B-12) 500 mcg tablet RxNorm: 361232 1 TABLET ORALLY DAILY (DX: ANEMIA) 07/09/19 25 025 Inactive PLEASE SEND REFILLS.PHARMA CY PLEASE PROFILE FOR FUTURE USE-MedicalRec ords hydrochlorothiazide 25 mg tablet RxNorm: 382866 1 TABLET ORALLY DAILY (DX: HYPERTENSION) 07/09/19 25 025 Inactive PLEASE SEND REFILLS.PHARMA CY PLEASE PROFILE FOR FUTURE USE-MedicalRec ords Contour Next EZ Meter RxNorm: USE TO JENIFER T BLOOD GLUCOSE DAILY (DX: DIABETES TYPE 2) 07/09/19 25 025 Inactive PLEASE SEND REFILLS.PHARMA CY PLEASE PROFILE FOR FUTURE USE-MedicalRec ords Alejandra Protect (zinc oxide) 12 % topical cream RxNorm: 464364 APPLY TO RIGHT BUTTOCK 2 TIMES DAILY;APPLY TO RIGHT BUTTOCK NEEDED WITH SOILING 06/12/19 25 026 Active albuterol sulfate HFA 90 mcg/actuation aerosol inhaler RxNorm: 0304110 Inhale 2 Puff(s) Inhalation Q4H every four hours as needed 06/01/19 25 025 Inactive Alejandra Protect (zinc oxide) 12 % topical cream RxNorm: 867605 cream Topical apply to right buttocks BID and PRN with soiling 06/01/19 25 025 Inactive Lantus Solostar U-100 Insulin 100 unit/mL (3 mL) subcutaneous pen RxNorm: 846003 Unit(s) Subcutaneous prime en with 2 units, then inject 8 units SQ QD at bedtime 05/18/19 025 Inactive potassium chloride ER 10 mEq tablet,extended release RxNorm: 219244 Take 1 Tablet(s) Oral QD 04/12/19 25 No Stop Date Active acetaminophen 500 mg tablet RxNorm: 982220 Take 2 Tablet(s) Oral TID as needed 04/12/19 25 No Stop Date Active fluoxetine 10 mg capsule RxNorm: 118911 Take 1 Capsule(s) Oral QD 04/12/19 25 025 Inactive hydrochlorothiazide 25 mg tablet RxNorm: 999304 Take 1 Tablet(s) Oral QD 04/12/19 25 025 Inactive Oyster Shell Calcium 500 mg (as calcium carbonate 1,250 mg) tablet RxNorm: 426807 Take 1 Tablet(s) Oral QD 04/12/19 25 025 Inactive Co Q-10 200 mg capsule RxNorm: 256929 Capsule(s) Oral take 1 cap po daily with 100mg tab to =300mg daily 02/03/ 025 Inactive Co Q-10 100 mg capsule RxNorm: 427425 Capsule(s) Oral take 1 cap daily along with 200mg tab to =300mg daily 04/12/19 025 Inactive quetiapine 25 mg tablet RxNorm: 522146 Take 1 Tablet(s) Oral QHS every night at bedtime 04/12/19 025 Inactive Vitamin D3 25 mcg (1,000 unit) tablet RxNorm: 542433 Take 1 Tablet(s) Oral QD 04/12/19 025 Inactive donepezil 10 mg tablet RxNorm: 522519 Take 1 Tablet(s) Oral QHS every night at bedtime 04/12/19 025 Inactive cyanocobalamin (vit B-12) 500 mcg tablet RxNorm: 204337 Take 1 Tablet(s) Oral QD 04/12/19 025 Inactive oxybutynin chloride ER 10 mg tablet,extended release 24 hr RxNorm: 324551 Take 1 Tablet(s) Oral QPM every evening 04/12/19 025 Inactive irbesartan 150 mg tablet RxNorm: 292294 Take 1 Tablet(s) Oral BID 04/12/19 025 Inactive Trelegy Ellipta 200 mcg-62.5 mcg-25 mcg powder for inhalation RxNorm: 5270175 Inhale 1 Puff(s) Inhalation every 24 hours 04/12/19 025 Inactive Vitron-C 65 mg iron-125 mg tablet,delayed release RxNorm: 9949479 Take 1 Tablet(s) Oral QOD every other day 04/12/19 025 Inactive Eliquis 5 mg tablet RxNorm: 5386112 Take 1 Tablet(s) Oral BID 04/12/19 025 Inactive Lantus Solostar U-100 Insulin 100 unit/mL (3 mL) subcutaneous pen RxNorm: 263993 Unit(s) Subcutaneous prime en with 2 units, [...] Result Date Service Location Basic Metabolic Panel [id number] POTASSIUM (XU) 2823-3 3.8 mmol/L 09/04/19 25 Unknown Basic Metabolic Panel [id number] CHLORIDE (XU) 98 mmol/L 09/04/19 25 Unknown Basic Metabolic Panel [id number] CO2 (XU) 30 mmol/L 09/04/19 25 Unknown Basic Metabolic Panel [id number] Calcium 9.3 mg/dL 09/04/19 25 Unknown Basic Metabolic Panel [id number] ANION GAP (XU) 10 mmol/L 09/04/19 25 Unknown Basic Metabolic Panel [id number] Creatinine 0.76 mg/dL 09/04/19 25 Unknown Basic Metabolic Panel [id number] GLUCOSE (XU) 2345-7 71 mg/dL 09/04/19 25 Unknown Basic Metabolic Panel [id number] Sodium 138 mmol/L 09/04/19 25 Unknown Basic Metabolic Panel [id number] UREA NITROGEN (XU) 16.5 mg/dL 09/04/19 25 Unknown Basic Metabolic Panel [id number] GFR, ESTIMATE 35687-5 75 mL/min/1.73m 2 09/04/19 25 Unknown CBC with Platelets PYC587 WBC COUNT (AUTOMATED) 4.1 10e3/uL 06/05/19 25 Unknown CBC with Platelets HJE217 RBC COUNT 789-8 4.37 10e6/uL 06/05/19 25 Unknown CBC with Platelets YUN408 Hemoglobin 718-7 13.5 g/dL 06/05/19 25 Unknown CBC with Platelets REB721 Hematocrit 4544-3 42.8 % 06/05/19 25 Unknown CBC with Platelets QWI860 MCV 787-2 98 fL 06/05/19 25 Unknown CBC with Platelets WLI605 MCH 30.9 pg 06/05/19 25 Unknown CBC with Platelets XAS049 MCHC 31.5 g/dL 06/05/19 25 Unknown CBC with Platelets YPI970 RDW 16.5 % 06/05/19 25 Unknown CBC with Platelets DRL648 Platelet Count 777-3 181 10e3/uL 06/05/19 25 Unknown Hemoglobin A1c LAB90 EST AVERAGE GLUCOSE 151 mg/dL 06/05/19 25 Unknown Hemoglobin A1c LAB90 Hemoglobin A1c 90029-3 6.9 % 06/05/19 25 Unknown Glucose GPG1496 Sodium 140 mmol/L 06/05/19 25 Unknown Glucose HWP2257 POTASSIUM (XU) 2823-3 3.5 mmol/L 06/05/19 25 Unknown Glucose MXM0548 CHLORIDE (XU) 100 mmol/L 25 Unknown Glucose WRG1865 CO2 (XU) 28 mmol/L 06/05/19 25 Unknown Glucose THJ5717 ANION GAP (XU) 12 mmol/L 06/05/19 25 Unknown Glucose HNJ2598 UREA NITROGEN (XU) 13.7 mg/dL 06/05/19 25 Unknown Glucose KOM6419 Creatinine 0.75 mg/dL 06/05/19 25 Unknown Glucose HSG7659 GFR, ESTIMATE 77315-1 76 mL/min/1.73m 2 06/05/19 25 Unknown Glucose WAZ2187 Calcium 9.3 mg/dL 06/05/19 25 Unknown Basic Metabolic Panel [id number] POTASSIUM (XU) 2823-3 3.5 mmol/L 06/05/19 25 Unknown Basic Metabolic Panel [id number] CHLORIDE (XU) 100 mmol/L 06/05/19 25 Unknown Basic Metabolic Panel [id number] CO2 (XU) 28 mmol/L 06/05/19 25 Unknown Basic Metabolic Panel [id number] Calcium 9.3 mg/dL 06/05/19 25 Unknown Basic Metabolic Panel GSC3114 ANION GAP (XU) 12 mmol/L 06/05/19 25 Unknown Basic Metabolic Panel [id number] Creatinine 0.75 mg/dL 06/05/19 Unknown Basic Metabolic Panel [id number] GLUCOSE (XU) 2345-7 79 mg/dL 06/05/19 Unknown Basic Metabolic Panel JTS2267 Sodium 140 mmol/L 06/05/19 Unknown Basic Metabolic Panel [id number] UREA NITROGEN (XU) 13.7 mg/dL 06/05/19 Unknown Basic Metabolic Panel NCG3034 GFR, ESTIMATE 18749-3 76 mL/min/1.73m 2 06/05/19 Unknown Urine Culture 23929 URINE CULTURE 09872-6 SEE RESU LTS BELOW 06/04/19 Unknown PHQ9 PHQ9 81330-3 1 06/02/19 Unknown UA with Microscopic 20637 COLOR Light Yellow 06/01/19 Unknown UA with Microscopic 05227 Appearance Slightly Cloudy 06/01/19 Unknown UA with Microscopic 18845 GLUCOSE, URINE Negative mg/dL 06/01/19 Unknown UA with Microscopic 11763 BILIRUBIN, URINE Negative 06/01/19 Unknown UA with Microscopic 94091 Ketones Urine Negative mg/dL 06/01/19 Unknown UA with Microscopic 22706 Specific Dante Urine 1.012 06/01/19 Unknown UA with Microscopic 34815 BLOOD, URINE Negative 06/01/19 Unknown UA with Microscopic 49902 pH Urine 6.5 06/01/19 Unknown UA with Microscopic 96885 Protein urine Negative mg/dL 06/01/19 Unknown UA with Microscopic 66421 UROBILINOGEN IRIS Normal mg/dL 06/01/19 Unknown UA with Microscopic 20678 Nitrites Positive 06/01/19 Unknown UA with Microscopic 66404 LEUK ESTERASE Trace 06/01/19 Unknown UA with Microscopic 97859 Bacteria Few /HPF 06/01/19 Unknown UA with Microscopic 52435 WBC CLUMPS 6690-2 Present /HPF 06/01/19 25 Unknown UA with Microscopic 09740 Mucus Urine Present /LPF 06/01/19 25 Unknown UA with Microscopic 97711 RBC Urine <1 /HPF 06/01/19 Unknown UA with Microscopic 45299 SQUAMOUS EPITHELIAL 2 /HPF 06/01/19 Unknown UA with Microscopic 52197 WBC Urine 82946-5 26 /HPF 06/01/19 25 Unknown Urine Culture 58711 URINE CULTURE 04609-1 SEE RESU LTS BELOW 05/23/19 25 Unknown UA with Microscopic 37261 COLOR Yellow 05/22/19 25 Unknown UA with Microscopic 66585 Appearance Slightly Cloudy 05/22/19 25 Unknown UA with Microscopic 66350 GLUCOSE, URINE Negative mg/dL 05/22/19 25 Unknown UA with Microscopic 21392 BILIRUBIN, URINE Negative 05/22/19 25 Unknown UA with Microscopic 65188 Ketones Urine Negative mg/dL 05/22/19 25 Unknown UA with Microscopic 75501 Specific Dante Urine 1.013 05/22/19 25 Unknown UA with Microscopic 03423 BLOOD, URINE Negative 05/22/19 25 Unknown UA with Microscopic 21069 pH Urine 6.5 05/22/19 25 Unknown UA with Microscopic 10234 Protein urine 10 mg/dL 05/22/19 25 Unknown UA with Microscopic 88150 UROBILINOGEN IRIS Normal mg/dL 05/22/19 25 Unknown UA with Microscopic 36409 Nitrites Positive 05/22/19 25 Unknown UA with Microscopic 88127 LEUK ESTERASE Large 05/22/19 25 Unknown UA with Microscopic 51829 Bacteria Few /HPF 05/22/19 25 Unknown UA with Microscopic 59358 Mucus Urine Present /LPF 05/22/19 25 Unknown UA with Microscopic 44377 RBC Urine 0 /HPF 05/22/19 25 Unknown UA with Microscopic 36722 SQUAMOUS EPITHELIAL 3 /HPF 05/22/19 25 Unknown UA with Microscopic 46207 WBC Urine 50353-5 24 /HPF 05/22/19 25 Unknown UA with Microscopic 53729 TRANSITIONAL EPI <1 /HPF 05/22/19 25 Unknown PHQ9 PHQ9 26761-1 2 04/13/19 25 Unknown SLUMS SLUMS 86555-7 13 04/13/19 25 Unknown Procedures Procedure Codes Date DSCHRG MED/CURRENT MED MERGE CPT-4: 1111F 05/2024 HG A1C LEVEL LT 7.0% CPT-4: 3044F 06/29/2024 PT INELIG NEG SCRN DEPRES SNOMED CT: 428 [id number] CPT-4: G8510 06/01/2024 PT INELIG NEG SCRN DEPRES SNOMED CT: 428 534057749428 CPT-4: G8510 04/13/2024 Vital Signs Date Vital 08/31/2024 Blood Pressure 1: 142/70 Code: 8480-6 Heart Rate 1: 82 bpm Code: 8867-4 Respiratory Rate: 20 bpm SpO2: 91% Temperature: 35.4 (C) / 95.8 (F) Weight: 208 lbs 6 oz Code: 3141-9 08/10/2024 Blood Pressure 1: 144/68 Code: 8480-6 BMI: 35.0 Code: 19529-5 Heart Rate 1: 78 bpm Code: 8867-4 [...] 1: 150/90 Code: 8480-6 BMI: NaN Code: 74251-3 Heart Rate 1: 71 bpm Code: 8867-4 [...] Encounter Performer Location Location Address Codes Date ([id number]) Home Visit - Est Pt, moderate Diagnosis: Primary hypertension[ICD10: I10] Diagnosis: Chronic heart failure with preserved ejection fraction[ICD10: I50.32] Diagnosis: Chronic obstructive pulmonary disease, unspecified COPD type[ICD10: J44.9] Diagnosis: Type 2 diabetes mellitus without complication, unspecified whether oil heaterman insulin use[ICD10: E11.9] Diagnosis: Urinary incontinence, unspecified type[ICD10: R32] Teresa Talbot [facility] [place] [address] CPT-4: 36943 08/31/2024 ([id number]) Home Visit - Est Pt, moderate Diagnosis: Atrial fibrillation, unspecified type[ICD10: I48.91] Diagnosis: Chronic obstructive pulmonary disease, unspecified COPD type[ICD10: J44.9] Diagnosis: Unsteady gait[ICD10: R26.81] Diagnosis: Vascular dementia, unspecified severity, without behavioral disturbance, psychotic disturbance, mood disturbance, and anxiety[ICD10: F01.50] Diagnosis: Pressure injury of left buttock, stage 2[ICD10: L89.322] [facility] [address] [place] [address] CPT-4: 01037 08/10/2024 ([id number]) Home Visit - Est Pt, moderate Diagnosis: Acute cystitis without hematuria[ICD10: N30.00] Diagnosis: Chronic heart failure with preserved ejection fraction[ICD10: I50.32] Diagnosis: Iron deficiency anemia, unspecified iron deficiency anemia type[ICD10: D50.9] Diagnosis: Type 2 diabetes mellitus without complication, unspecified whether oil heaterman insulin use[ICD10: E11.9] Diagnosis: Chronic obstructive pulmonary disease, unspecified COPD type[ICD10: J44.9] [facility] [address] [place] [phone] CPT-4: 27521 06/29/2024 ([id number]) Medicare Annual Wellness Visit (AWV), Subsequent Diagnosis: Adult general medical exam[SNOMED: 894614656] Diagnosis: ACP (advance care planning)[SNOMED: 975331506] Diagnosis: Frailty[SNOMED: 243343381] Diagnosis: Atherosclerosis of coronary artery of [place] heart without angina pectoris, unspecified vessel or [...] 2 diabetes mellitus without complication, unspecified whether oil heaterman insulin use[ICD10: E11.9] Diagnosis: Unintentional weight loss[ICD10: R63.4] Diagnosis: Unsteady gait[ICD10: R26.81] Diagnosis: Venous insufficiency of both lower extremities[ICD10: I87.2] Diagnosis: Acute cystitis without hematuria[SNOMED: 28329932] Diagnosis: Pressure injury of left buttock, stage 2[ICD10: L89.322] Teresa Talbot [address] [address] CPT-4: G0439 06/01/2024 ([id number]) Home Visit - Est Pt, moderate Diagnosis: Adult general medical exam[SNOMED: 766402210] Diagnosis: ACP (advance care planning)[SNOMED: 913800057] Diagnosis: Frailty[SNOMED: 399715393] Diagnosis: Atherosclerosis of coronary artery of [place] heart without angina pectoris, unspecified vessel or [...] 2 diabetes mellitus without complication, unspecified whether oil heaterman insulin use[ICD10: E11.9] Diagnosis: Unintentional weight loss[ICD10: R63.4] Diagnosis: Unsteady gait[ICD10: R26.81] Diagnosis: Venous insufficiency of both lower extremities[ICD10: I87.2] Diagnosis: Acute cystitis without hematuria[SNOMED: 12015366] Diagnosis: Pressure injury of left buttock, stage 2[ICD10: L89.322] [facility] [place] [address] CPT-4: 90225 06/01/2024 ([id number]) Home or Residence Visit Est Pt - Moderate Level, 40 mins 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] Diagnosis: Primary hypertension[ICD10: I10] Diagnosis: Pressure injury of left buttock, stage 2[SNOMED: 72915643498339] Diagnosis: Type 2 diabetes mellitus without complication, unspecified whether oil heaterman insulin use[ICD10: E11.9] [facility] [place] [address] CPT-4: 18594 05/04/2024 ([id number]) Home or Residence Visit BRICK GRADER - Moderate Level, 60 mins Diagnosis: Statin intolerance[SNOMED: 080285677] Diagnosis: Mixed Alzheimer and vascular dementia[SNOMED: 34949769302411] Diagnosis: Vascular dementia, unspecified severity, without behavioral disturbance, psychotic disturbance, mood disturbance, and anxiety[ICD10: F01.50] Diagnosis: Dementia in other diseases classified elsewhere, unspecified severity, without behavioral disturbance, psychotic disturbance, mood disturbance, and anxiety[ICD10: F02.80] Diagnosis: History of TIA (transient ischemic attack)[SNOMED: 600043219] Diagnosis: Type 2 diabetes mellitus without complication, unspecified whether chcf insulin use[SNOMED: 75465597] Diagnosis: Venous insufficiency of both lower extremities[SNOMED: 533960954] Diagnosis: Hyperlipidemia, unspecified hyperlipidemia type[SNOMED: 15293613] Diagnosis: Unintentional weight loss[SNOMED: 704848753] Diagnosis: Urinary incontinence, unspecified type[SNOMED: 394821408] Diagnosis: Depression due to dementia[SNOMED: 96516214] Diagnosis: Compression fracture of L1 vertebra, sequela[SNOMED: 458294660] Diagnosis: Atherosclerosis of coronary artery of [place] heart without angina pectoris, unspecified vessel or lesion type[SNOMED: 607021910] Diagnosis: Unsteady gait[SNOMED: 39701990] Diagnosis: Iron deficiency anemia, unspecified iron deficiency anemia type[SNOMED: 51444622] Diagnosis: Osteopenia, unspecified location[SNOMED: 804225652] Diagnosis: CAMILO (obstructive sleep apnea)[SNOMED: 48460983] Diagnosis: Chronic obstructive pulmonary disease, unspecified COPD type[SNOMED: 61986753] Diagnosis: History of breast cancer[SNOMED: 443007343] Diagnosis: History of melanoma[SNOMED: 768934526] Diagnosis: Primary hypertension[SNOMED: 92722905] Diagnosis: Chronic heart failure with preserved ejection fraction[SNOMED: 232423910] Diagnosis: Diverticulosis[SNOMED : 801742074] Diagnosis: Atrial fibrillation, unspecified type[SNOMED: 72837015] Diagnosis: Advance care planning[SNOMED: 277851061] Teresa Talbot [address] [address] CPT-4: 07922 04/13/2024 Plan of Care Planned Activity Notes Codes Status Date Patient Education: Patient Medication Summary Completed 08/31/2024 Patient Education: Influenza Complet ed 08/31/2024 Patient Education: Patient Medication Summary Completed 08/10/2024 Patient Education: Influenza Complet ed 08/10/2024 Appointment: Michela Talbot WPtel: [address] [place], [place] [phone] F/U 08/03/2024 Patient Education: Patient Medication Summary [...] Complet ed 05/04/2024 Appointment: Michela Talbot WPtel: [address] [place], [place] [phone] [facility] 04/13/2024 Patient Education: Patient Medication Summary Completed 04/13/2024 Patient Education: Influenza Complet ed 04/13/2024 Patient Education: Alzheimer''s Disease Completed 04/13/2024 Patient Education: Dementia Complete d 04/13/2024 Instructions Comment Date Alyx resides at [facility] since about 2021. Previously lived independently in [place]. . Has one daughter Maggie who is involved in healthcare. PMH: History of breast cancer and melanoma, mixed dementia, depression, CAD, HLD, history of CVA/TIA, compression fx of L1 vertebrae, urinary incontinence, hearing loss, osteopeniaPrimary contact: Maggie Gallegos (Daughter)Code Status: DNR/SelectLab Schedule: Mar/SepSpecialists: [facility] (Q6M), Cardiology [facility] (MD Echo) 08/06/2024 Chronic heart failure with p reserved ejection fraction Increased edema and shortness of breath reported by staff. CXR revealed pulmonary edema vs interstitial pneumonitis. Treated with 5 day burst of HCTZ 100mg (typically on 50mg daily). Nursing states she has been stable since. Repeat BMP. On exam today, lungs CTA, no labored breathing. Legs are edematous, wearing tubi cement fittings maker. Nursing reached out to TCU in regards to previous compression wraps, they're connecting with a lymph PT for further instruction. She has been utilizing a wheelchair more than her walker which is likely leading to increased edema status. 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 Will continue on HCTZ as well. Type 2 diabetes mellitus without complication, unspecified whether oil heaterman insulin use Sugars reviewed; stable in 90-200 [...] to avoid exacerbation. Ordering nebulizer machine today. [id number] visit with patient today regarding the need for nebulizer machine due high risk exacerbation of her COPD and repeat hospitalizations. Observations gathered via [id number] examination and evaluation by PA. Patient is [...] diabetes mellitus wit hout complication, unspecified whether oil heaterman insulin use Sugars reviewed; most readings < [...] 2 diabetes mellitus without complication, unspecified whether oil heaterman insulin use Sugars reviewed; remain in 80s-100s. [...] of care. Atherosclerosis of coronary artery of [place] heart without angina pectoris, unspecified vessel or [...] diabetes mellitus wit hout complication, unspecified whether chcf insulin use Sugars reviewed; remain in 80-90s [...] fibrillation, unspecified type Has seen cardiology in [place] 01/2024. Managed on eliquis 5mg BID. No excessive bruising or bleeding on exam. Atherosclerosis of coronary artery of [place] heart without angina pectoris, unspecified vessel or [...]
--- OUTSIDE RECORDS SUMMARY | 2024-09-04 07:24 | XMS_ITS | CCD ---
Author Name Linda Vivas Address [address] [place] [address] Phone Organization [facility] Phone Care Team Providers Care Brand Marketing Manager Name Role Phone Teresa Vivas Primary Care Provider Un available Unavailable Chronic Care Management Unavaila ble Summary Purpose DataExchange Insurance Providers Payer name Policy type / Coverage type Covered democrat ID Effective Begin Date Effective End Date BCBS of [facility] Medicare Risk [id number] Unknown Un known Family history Mother Diagnosis Age At Onset Stroke Unknown Social History Social History Element Codes Description Effec tive Dates Marital status Unknown 04/13/2024 Marital status Unknown 04/13/2024 Living arrangements Unknown Assisted Living 04/[address]: 0023181 Former smoker 04/[address]: 3060904 Former smoker 04/[address]: 194801027 No Alcohol Consum ption 04/13/[address]: 548109 Currently drin ks alcohol 04/13/2024 Sexually Active? [...] No Inactive Date A ctive SIMVASTATIN RxNorm: 04672 04/13/2024 No Inactive D ate Active Penicillin Unknown 04/13/2024 No Inactive Date A ctive CLOPIDOGREL Unknown 03/23/2024 No Inactive Date Active naproxen RxNorm: 7258 04/13/2024 No Inactive Date Active levofloxacin RxNorm: 76347 03/23/2024 No Inactive Date Active Levemir Unknown 03/23/2024 No Inactive Date Ac tive metformin RxNorm: 530505 04/13/2024 No Inactive Da te Active ESTROGENS Unknown 03/23/2024 No Inactive Date Ac tive Atenolol RxNorm: 1202 04/13/2024 No Inactive Date Active metoprolol succinate RxNorm: 491363 03/23/2024 No Inactive Date Active Januvia RxNorm: 173635 04/13/2024 No Inactive Da te Active furosemide RxNorm: 4603 03/23/2024 No Inactive Balaji e Active azithromycin RxNorm: 30953 04/13/2024 No Inactive Date Active losartan RxNorm: 825682 04/13/2024 No Inactive Da te Active NSAIDS Unknown 03/23/2024 No Inactive Date Ac tive Amlodipine RxNorm: 663083 04/13/2024 No Inactive D ate Active LISINOPRIL RxNorm: 39272 04/13/2024 No Inactive Da te Active PIOGLITAZONE [...] ACP (advance care planning) SNOMED CT: 3 19982759 ICD-10: Z71.89 ICD-9: V65.49 06/01/2024 Active Adult general medical exam SNOMED CT: 30 0773451 ICD-10: Z00.00 ICD-9: V70.9 06/01/2024 Active Atherosclerosis of coronary artery of [place] heart without angina pectoris, unspecified vessel or lesion type ICD-10: I25.10 ICD-9: 414.01 06/01/2024 Active 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 ICD-9: 311 06/01/[address]: 301443973 ICD-10: R54 ICD-9: 797 06/01/2024 Active Mixed [...] fracture of L1 vertebra, sequela SNOMED CT: 835725278 ICD-10: S32.010S ICD-9: 905.1 04/13/2024 Active Dementia in other diseases classified elsewhere, unspecified severity, without behavioral disturbance, psychotic disturbance, mood disturbance, and anxiety ICD-10: F02.80 04/13/[address]: 501011021 ICD-10: K57.90 ICD-9: 562.10 04/13/2024 Active History of breast cancer SNOMED CT: 4290 33570 ICD-10: Z85.3 ICD-9: V10.3 04/13/2024 Active History of melanoma SNOMED CT: 443640688 ICD-10: Z85.820 ICD-9: V10.82 04/13/2024 Active History of TIA (transient ischemic attack) SNOMED CT: 583950165 ICD-10: Z86.73 ICD-9: V12.54 04/13/2024 Active Hyperlipidemia, unspecified hyperlipidemia type SNOMED CT: 17774813 ICD-10: E78.5 ICD-9: 272.4 04/13/2024 Active Statin intolerance SNOMED CT: 861811444 ICD-10: Z78.9 ICD-9: 995.27 04/13/2024 Active Urinary incontinence, unspecified type SNOMED CT: 812306011 ICD-10: R32 ICD-9: 788.30 04/13/2024 Active Medications Medication Codes Instructions Start Date Stop Date Status Fill Instructions carvedilol 6.25 mg tablet RxNorm: 724417 Take 1 Tablet(s) Oral BID 08/10/19 25 No Stop Date Active nystatin 100,000 unit/gram topical powder RxNorm: 426294 Gram(s) Topical apply to affected area BID 08/10/19 25 025 Inactive hydrochlorothiazide 50 mg tablet RxNorm: 899594 Take 1 Tablet(s) Oral QD 08/07/19 25 No Stop Date Active Lantus Solostar U-100 Insulin 100 unit/mL (3 mL) subcutaneous pen RxNorm: 510762 Unit(s) Subcutaneous inject 14 units every am 08/07/19 25 No Stop Date Active Vitron-C 65 mg iron-125 mg tablet,delayed release RxNorm: 5600381 1 Tablet(s) Oral QOD every other day 07/23/19 Inactive *URGENT REQUEST* PLEASE SEND REFILLS FOR CYCLE FILL. THANK YOU! Oyster Shell Calcium-500 500 mg (as carbonate 1,250 mg) tablet RxNorm: 211075 1 TABLET ORALLY DAILY FOR BONE HEALTH 07/09/19 25 Active PLEASE SEND REFILLS.PHARMA CY PLEASE PROFILE FOR FUTURE USE-Medical[facility] ords Co Q-10 200 mg capsule RxNorm: 956538 1 CAPSULE ORALLY DAILY W/ 100MG CAP FOR A TOTAL DOSE OF 300MG (DX: SUPPLEMENT) 07/09/19 Active PLEASE SEND REFILLS.PHARMA CY PLEASE PROFILE FOR FUTURE USE-[facility] or[facility] oxybutynin chloride ER 10 mg tablet,extended release 24 hr RxNorm: 894717 1 TAB ORALLY EVERY EVENING FOR BLADDER SPASMS 07/09/19 Active PLEASE SEND REFILLS.PHARMA CY PLEASE PROFILE FOR FUTURE USE-[facility] Trelegy Ellipta 200 mcg-62.5 mcg-25 mcg powder for inhalation RxNorm: 1609331 INHALE 1 PUFF INTO THE LUNGS EVERY 24 HOURS (DX: CHRONIC OBSTRUCTIVE PULMONARY DISEASE) 07/09/19 Active PLEASE SEND REFILLS.PHARMA CY PLEASE PROFILE FOR FUTURE USE-[facility] or[facility] fluoxetine 10 mg capsule RxNorm: 342790 1 CAPSULE ORALLY DAILY (DX: DEPRESSION) (DX: ANXIETY) 07/09/19 25 Active PLEASE SEND REFILLS.PHARMA CY PLEASE PROFILE FOR FUTURE USE-MedicalRec or[facility] irbesartan 150 mg tablet RxNorm: 374347 1 TABLET ORALLY 2 TIMES DAILY (DX: HYPERTENSION) 07/09/19 25 Active PLEASE SEND REFILLS.PHARMA CY PLEASE PROFILE FOR FUTURE USE-[facility] cholecalciferol (vitamin D3) 25 mcg (1,000 unit) tablet RxNorm: 093094 1 TABLET ORALLY DAILY (DX: VITAMIN D DEFICIENCY) 07/09/19 25 Active PLEASE SEND REFILLS.PHARMA CY PLEASE PROFILE FOR FUTURE USE-[facility] or[facility] quetiapine 25 mg tablet RxNorm: 312780 1 TABLET ORALLY AT BEDTIME (DX: ANXIETY) 07/09/19 25 026 Active PLEASE SEND REFILLS.PHARMA CY PLEASE PROFILE FOR FUTURE USE-[facility] coenzyme Q10 100 mg capsule RxNorm: 712238 1 CAPSULE ORALLY DAILY W/ 200MG CAP FOR A TOTAL DOSE OF 300MG (DX: SUPPLEMENT) 07/09/19 25 026 Active PLEASE SEND REFILLS.PHARMA CY PLEASE PROFILE FOR FUTURE USE-[facility]Rec or[facility] donepezil 10 mg tablet RxNorm: 503543 1 TABLET ORALLY AT BEDTIME (DX: DEMENTIA) 07/09/19 25 026 Active PLEASE SEND REFILLS.PHARMA CY PLEASE PROFILE FOR FUTURE USE-[facility] alcohol swabs RxNorm: 537919 USE DIRECTED 07/09/19 25 026 Active PLEASE SEND REFILLS.PHARMA CY PLEASE PROFILE FOR FUTURE USE-[facility] Vitron-C 65 mg iron-125 mg tablet,delayed release RxNorm: 5006736 1 Tablet(s) Oral QOD every other day 07/09/19 25 025 Inactive PLEASE SEND REFILLS.PHARMA CY PLEASE PROFILE FOR FUTURE USE-[facility] cyanocobalamin (vit B-12) 500 mcg tablet RxNorm: 846709 1 TABLET ORALLY DAILY (DX: ANEMIA) 07/09/19 25 025 Inactive PLEASE SEND REFILLS.PHARMA CY PLEASE PROFILE FOR FUTURE USE-[facility] hydrochlorothiazide 25 mg tablet RxNorm: 423446 1 TABLET ORALLY DAILY (DX: HYPERTENSION) 07/09/19 25 025 Inactive PLEASE SEND REFILLS.PHARMA CY PLEASE PROFILE FOR FUTURE USE-Medical[facility] Contour Next EZ Meter RxNorm: USE TO JENIFER T BLOOD GLUCOSE DAILY (DX: DIABETES TYPE 2) 07/09/19 25 025 Inactive PLEASE SEND REFILLS.PHARMA CY PLEASE PROFILE FOR FUTURE USE-MedicalRec ords Alejandra Protect (zinc oxide) 12 % topical cream RxNorm: 925546 APPLY TO RIGHT BUTTOCK 2 TIMES DAILY;APPLY TO RIGHT BUTTOCK NEEDED WITH SOILING 06/12/19 25 026 Active albuterol sulfate HFA 90 mcg/actuation aerosol inhaler RxNorm: 0828862 Inhale 2 Puff(s) Inhalation Q4H every four hours as needed 06/01/19 25 025 Inactive Alejandra Protect (zinc oxide) 12 % topical cream RxNorm: 831052 cream Topical apply to right buttocks BID and PRN with soiling 06/01/19 25 025 Inactive Lantus Solostar U-100 Insulin 100 unit/mL (3 mL) subcutaneous pen RxNorm: 044004 Unit(s) Subcutaneous prime en with 2 units, then inject 8 units SQ QD at bedtime 05/18/19 25 025 Inactive potassium chloride ER 10 mEq tablet,extended release RxNorm: 855341 Take 1 Tablet(s) Oral QD 04/12/19 No Stop Date Active acetaminophen 500 mg tablet RxNorm: 957696 Take 2 Tablet(s) Oral TID as needed 04/12/19 No Stop Date Active fluoxetine 10 mg capsule RxNorm: 073951 Take 1 Capsule(s) Oral QD 04/12/19 025 Inactive hydrochlorothiazide 25 mg tablet RxNorm: 892055 Take 1 Tablet(s) Oral QD 04/12/19 025 Inactive Oyster Shell Calcium 500 mg (as calcium carbonate 1,250 mg) tablet RxNorm: 735371 Take 1 Tablet(s) Oral QD 04/12/19 025 Inactive Co Q-10 200 mg capsule RxNorm: 428261 Capsule(s) Oral take 1 cap po daily with 100mg tab to =300mg daily 04/12/19 025 Inactive Co Q-10 100 mg capsule RxNorm: 741841 Capsule(s) Oral take 1 cap daily along with 200mg tab to =300mg daily 04/12/19 025 Inactive quetiapine 25 mg tablet RxNorm: 371407 Take 1 Tablet(s) Oral QHS every night at bedtime 04/12/19 025 Inactive Vitamin D3 25 mcg (1,000 unit) tablet RxNorm: 824100 Take 1 Tablet(s) Oral QD 04/12/19 025 Inactive donepezil 10 mg tablet RxNorm: 180733 Take 1 Tablet(s) Oral QHS every night at bedtime 04/12/19 025 Inactive cyanocobalamin (vit B-12) 500 mcg tablet RxNorm: 729994 Take 1 Tablet(s) Oral QD 04/12/19 25 025 Inactive oxybutynin chloride ER 10 mg tablet,extended release 24 hr RxNorm: 972597 Take 1 Tablet(s) Oral QPM every evening 04/12/19 25 025 Inactive irbesartan 150 mg tablet RxNorm: 353411 Take 1 Tablet(s) Oral BID 04/12/19 25 025 Inactive Trelegy Ellipta 200 mcg-62.5 mcg-25 mcg powder for inhalation RxNorm: 3013846 Inhale 1 Puff(s) Inhalation every 24 hours 04/12/19 025 Inactive Vitron-C 65 mg iron-125 mg tablet,delayed release RxNorm: 8821948 Take 1 Tablet(s) Oral QOD every other day 04/12/19 025 Inactive Eliquis 5 mg tablet RxNorm: 4116573 Take 1 Tablet(s) Oral BID 04/12/19 25 025 Inactive Lantus Solostar U-100 Insulin 100 unit/mL (3 mL) subcutaneous pen RxNorm: 687058 Unit(s) Subcutaneous prime en with 2 units, [...] 1: 144/68 Code: 8480-6 BMI: 35.0 Code: 81851-5 Heart Rate 1: 78 bpm Code: 8867-4 [...] Encounter Performer Location Location Address Codes Date (19915) Home Visit - Est Pt, moderate Diagnosis: Atrial fibrillation, unspecified type[ICD10: I48.91] Diagnosis: Chronic obstructive pulmonary disease, unspecified COPD type[ICD10: J44.9] Diagnosis: Unsteady gait[ICD10: R26.81] Diagnosis: Vascular dementia, unspecified severity, without behavioral disturbance, psychotic disturbance, mood disturbance, and anxiety[ICD10: F01.50] Diagnosis: Pressure injury of left buttock, stage 2[ICD10: L89.322] Teresa Antione [address] [address] CPT-4: 20367 08/10/2024 Plan of Care Planned Activity Notes Codes Status Date Patient Education: Patient Medication Summary Completed 08/10/2024 Patient Education: Influenza Complet ed 08/10/2024 Appointment: Michela Talbot WPtel: [address] [place] F/U 08/03/2024 Appointment: Michela Talbot WPtel: [address] [employer] 04/13/2024 Instructions Comment Date Alyx resides at [facility] since about 2021. Previously lived independently in [place]. . Has one daughter Maggie who is involved in healthcare. PMH: History of breast cancer and melanoma, mixed dementia, depression, CAD, HLD, history of CVA/TIA, compression fx of L1 vertebrae, urinary incontinence, hearing loss, osteopeniaPrimary contact: Maggie Gallegos (Daughter)Code Status: DNR/SelectLab Schedule: Mar/SepSpecialists: [facility] (Q6M), Cardiology [facility] (MD Echo) 08/06/2024 Chronic obstructive pulmonar [...]
--- OUTSIDE RECORDS SUMMARY | 2024-09-04 07:25 | XMS_ITS | CCD ---
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 Name Role Phone Teresa Vivas Primary Care Provider Un available Unavailable Chronic Care Management Unavaila ble Summary Purpose DataExchange Insurance Providers Payer name Policy type / Coverage type Covered constitution party ID Effective Begin Date Effective End Date [place] Risk [id number] Unknown Un known Family history Mother Diagnosis Age At Onset Stroke Unknown Social History Social History Element Codes Description Effec tive Dates Marital status Unknown 04/13/2024 Marital status Unknown 04/13/2024 Living arrangements Unknown Assisted Living 04/[address]: 0857050 Former smoker 04/[address]: 5682061 Former smoker 04/[address]: 062278199 No Alcohol Consum ption 04/13/[address]: 305091 Currently drin ks alcohol 04/13/2024 Sexually Active? [...] No Inactive Date A ctive SIMVASTATIN RxNorm: 69011 04/13/2024 No Inactive D ate Active Penicillin Unknown 04/13/2024 No Inactive Date A ctive CLOPIDOGREL Unknown 03/23/2024 No Inactive Date Active naproxen RxNorm: 7258 04/13/2024 No Inactive Date Active levofloxacin RxNorm: 60353 03/23/2024 No Inactive Date Active Levemir Unknown 03/23/2024 No Inactive Date Ac tive metformin RxNorm: 521486 04/13/2024 No Inactive Da te Active ESTROGENS Unknown 03/23/2024 No Inactive Date Ac tive Atenolol RxNorm: 1202 04/13/2024 No Inactive Date Active metoprolol succinate RxNorm: 628987 03/23/2024 No Inactive Date Active Januvia RxNorm: 225577 04/13/2024 No Inactive Da te Active furosemide RxNorm: 4603 03/23/2024 No Inactive Balaji e Active azithromycin RxNorm: 53246 04/13/2024 No Inactive Date Active losartan RxNorm: 039769 04/13/2024 No Inactive Da te Active NSAIDS Unknown 03/23/2024 No Inactive Date Ac tive Amlodipine RxNorm: 875610 04/13/2024 No Inactive D ate Active LISINOPRIL RxNorm: 95019 04/13/2024 No Inactive Da te Active PIOGLITAZONE [...] 2 diabetes mellitus without complication, unspecified whether retirement insulin use ICD-10: E11.9 ICD-9: 250.00 06/29/2024 Active ACP (advance care planning) SNOMED CT: 3 84037636 ICD-10: Z71.89 ICD-9: V65.49 06/01/2024 Active Adult general medical exam SNOMED CT: 30 3878887 ICD-10: Z00.00 ICD-9: V70.9 06/01/2024 Active Atherosclerosis of coronary artery of [place] heart without angina pectoris, unspecified vessel or lesion type ICD-10: I25.10 ICD-9: 414.01 06/01/2024 Active 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 ICD-9: 311 06/01/[address]: 040297566 ICD-10: R54 ICD-9: 797 06/01/2024 Active Mixed [...] fracture of L1 vertebra, sequela SNOMED CT: 084408449 ICD-10: S32.010S ICD-9: 905.1 04/13/2024 Active Dementia in other diseases classified elsewhere, unspecified severity, without behavioral disturbance, psychotic disturbance, mood disturbance, and anxiety ICD-10: F02.80 04/13/[address]: 756017703 ICD-10: K57.90 ICD-9: 562.10 04/13/2024 Active History of breast cancer SNOMED CT: 4290 22498 ICD-10: Z85.3 ICD-9: V10.3 04/13/2024 Active History of melanoma SNOMED CT: 120902818 ICD-10: Z85.820 ICD-9: V10.82 04/13/2024 Active History of TIA (transient ischemic attack) SNOMED CT: 175339657 ICD-10: Z86.73 ICD-9: V12.54 04/13/2024 Active Hyperlipidemia, unspecified hyperlipidemia type SNOMED CT: 74567738 ICD-10: E78.5 ICD-9: 272.4 04/13/2024 Active Statin intolerance SNOMED CT: 330984597 ICD-10: Z78.9 ICD-9: 995.27 04/13/2024 Active Urinary incontinence, unspecified type SNOMED CT: 937212993 ICD-10: R32 ICD-9: 788.30 04/13/2024 Active Medications Medication Codes Instructions Start Date Stop Date Status Fill Instructions furosemide 40 mg tablet RxNorm: 396077 Take 1 Tablet(s) Oral QD 08/20/19 25 025 Inactive furosemide 40 mg tablet RxNorm: 568742 Take 1 Tablet(s) Oral QD 08/20/19 25 025 Inactive Contour Next EZ Meter RxNorm: USE TO JENIFER T BLOOD GLUCOSE DAILY (DX: DIABETES TYPE 2) 08/18/19 25 025 Active Contour Next Test Strips RxNorm: Use 1 strip BID 08/17/19 25 026 Active carvedilol 6.25 mg tablet RxNorm: 950901 Take 1 Tablet(s) Oral BID 08/10/19 25 No Stop Date Active nystatin 100,000 unit/gram topical powder RxNorm: 672380 Gram(s) Topical apply to affected area BID 08/10/19 25 025 Inactive hydrochlorothiazide 50 mg tablet RxNorm: 203651 Take 1 Tablet(s) Oral QD 08/07/19 25 No Stop Date Active Lantus Solostar U-100 Insulin 100 unit/mL (3 mL) subcutaneous pen RxNorm: 493181 Unit(s) Subcutaneous inject 14 units every am 08/07/19 No Stop Date Active Vitron-C 65 mg iron-125 mg tablet,delayed release RxNorm: 0879123 1 Tablet(s) Oral QOD every other day 07/23/19 25 Inactive *URGENT REQUEST* PLEASE SEND REFILLS FOR CYCLE FILL. THANK YOU! Oyster Shell Calcium-500 500 mg (as carbonate 1,250 mg) tablet RxNorm: 601745 1 TABLET ORALLY DAILY FOR BONE HEALTH 07/09/19 25 026 Active PLEASE SEND REFILLS.PHARMA CY PLEASE PROFILE FOR FUTURE USE-[facility] Co Q-10 200 mg capsule RxNorm: 439391 1 CAPSULE ORALLY DAILY W/ 100MG CAP FOR A TOTAL DOSE OF 300MG (DX: SUPPLEMENT) 07/09/19 Active PLEASE SEND REFILLS.PHARMA CY PLEASE PROFILE FOR FUTURE USE-[facility] oxybutynin chloride ER 10 mg tablet,extended release 24 hr RxNorm: 478815 1 TAB ORALLY EVERY EVENING FOR BLADDER SPASMS 07/09/19 25 Active PLEASE SEND REFILLS.PHARMA CY PLEASE PROFILE FOR FUTURE USE-[facility] Trelegy Ellipta 200 mcg-62.5 mcg-25 mcg powder for inhalation RxNorm: 7174349 INHALE 1 PUFF INTO THE LUNGS EVERY 24 HOURS (DX: CHRONIC OBSTRUCTIVE PULMONARY DISEASE) 07/09/19 25 Active PLEASE SEND REFILLS.PHARMA CY PLEASE PROFILE FOR FUTURE USE-[facility] fluoxetine 10 mg capsule RxNorm: 876202 1 CAPSULE ORALLY DAILY (DX: DEPRESSION) (DX: ANXIETY) 07/09/19 25 026 Active PLEASE SEND REFILLS.PHARMA CY PLEASE PROFILE FOR FUTURE USE-[facility] irbesartan 150 mg tablet RxNorm: 783442 1 TABLET ORALLY 2 TIMES DAILY (DX: HYPERTENSION) 07/09/19 25 Active PLEASE SEND REFILLS.PHARMA CY PLEASE PROFILE FOR FUTURE USE-[facility] cholecalciferol (vitamin D3) 25 mcg (1,000 unit) tablet RxNorm: 052971 1 TABLET ORALLY DAILY (DX: VITAMIN D DEFICIENCY) 07/09/19 25 026 Active PLEASE SEND REFILLS.PHARMA CY PLEASE PROFILE FOR FUTURE USE-[facility] quetiapine 25 mg tablet RxNorm: 522274 1 TABLET ORALLY AT BEDTIME (DX: ANXIETY) 07/09/19 25 026 Active PLEASE SEND REFILLS.PHARMA CY PLEASE PROFILE FOR FUTURE USE-[facility] coenzyme Q10 100 mg capsule RxNorm: 595340 1 CAPSULE ORALLY DAILY W/ 200MG CAP FOR A TOTAL DOSE OF 300MG (DX: SUPPLEMENT) 07/09/19 25 026 Active PLEASE SEND REFILLS.PHARMA CY PLEASE PROFILE FOR FUTURE USE-[facility] donepezil 10 mg tablet RxNorm: 473695 1 TABLET ORALLY AT BEDTIME (DX: DEMENTIA) 07/09/19 25 026 Active PLEASE SEND REFILLS.PHARMA CY PLEASE PROFILE FOR FUTURE USE-[facility] alcohol swabs RxNorm: 856617 USE DIRECTED 07/09/19 25 026 Active PLEASE SEND REFILLS.PHARMA CY PLEASE PROFILE FOR FUTURE USE-[facility] Vitron-C 65 mg iron-125 mg tablet,delayed release RxNorm: 8349334 1 Tablet(s) Oral QOD every other day 07/09/19 25 025 Inactive PLEASE SEND REFILLS.PHARMA CY PLEASE PROFILE FOR FUTURE USE-[facility] cyanocobalamin (vit B-12) 500 mcg tablet RxNorm: 151810 1 TABLET ORALLY DAILY (DX: ANEMIA) 07/09/19 25 025 Inactive PLEASE SEND REFILLS.PHARMA CY PLEASE PROFILE FOR FUTURE USE-[facility] hydrochlorothiazide 25 mg tablet RxNorm: 594969 1 TABLET ORALLY DAILY (DX: HYPERTENSION) 07/09/19 25 025 Inactive PLEASE SEND REFILLS.PHARMA CY PLEASE PROFILE FOR FUTURE USE-[facility] Contour Next EZ Meter RxNorm: USE TO JENIFER T BLOOD GLUCOSE DAILY (DX: DIABETES TYPE 2) 07/09/19 25 025 Inactive PLEASE SEND REFILLS.PHARMA CY PLEASE PROFILE FOR FUTURE USE-[facility] Alejandra Protect (zinc oxide) 12 % topical cream RxNorm: 264020 APPLY TO RIGHT BUTTOCK 2 TIMES DAILY;APPLY TO RIGHT BUTTOCK NEEDED WITH SOILING 06/12/19 25 026 Active albuterol sulfate HFA 90 mcg/actuation aerosol inhaler RxNorm: 7482105 Inhale 2 Puff(s) Inhalation Q4H every four hours as needed 06/01/19 25 025 Inactive Alejandra Protect (zinc oxide) 12 % topical cream RxNorm: 029772 cream Topical apply to right buttocks BID and PRN with soiling 06/01/19 25 025 Inactive Lantus Solostar U-100 Insulin 100 unit/mL (3 mL) subcutaneous pen RxNorm: 683170 Unit(s) Subcutaneous prime en with 2 units, then inject 8 units SQ QD at bedtime 05/18/19 025 Inactive potassium chloride ER 10 mEq tablet,extended release RxNorm: 761992 Take 1 Tablet(s) Oral QD 04/12/19 No Stop Date Active acetaminophen 500 mg tablet RxNorm: 581333 Take 2 Tablet(s) Oral TID as needed 04/12/19 No Stop Date Active fluoxetine 10 mg capsule RxNorm: 578645 Take 1 Capsule(s) Oral QD 04/12/19 025 Inactive hydrochlorothiazide 25 mg tablet RxNorm: 179847 Take 1 Tablet(s) Oral QD 04/12/19 025 Inactive Oyster Shell Calcium 500 mg (as calcium carbonate 1,250 mg) tablet RxNorm: 366409 Take 1 Tablet(s) Oral QD 04/12/19 025 Inactive Co Q-10 200 mg capsule RxNorm: 947121 Capsule(s) Oral take 1 cap po daily with 100mg tab to =300mg daily 04/12/19 025 Inactive Co Q-10 100 mg capsule RxNorm: 001348 Capsule(s) Oral take 1 cap daily along with 200mg tab to =300mg daily 04/12/19 025 Inactive quetiapine 25 mg tablet RxNorm: 704253 Take 1 Tablet(s) Oral QHS every night at bedtime 04/12/19 025 Inactive Vitamin D3 25 mcg (1,000 unit) tablet RxNorm: 331201 Take 1 Tablet(s) Oral QD 04/12/19 025 Inactive donepezil 10 mg tablet RxNorm: 324997 Take 1 Tablet(s) Oral QHS every night at bedtime 04/12/19 25 025 Inactive cyanocobalamin (vit B-12) 500 mcg tablet RxNorm: 221149 Take 1 Tablet(s) Oral QD 04/12/19 25 025 Inactive oxybutynin chloride ER 10 mg tablet,extended release 24 hr RxNorm: 060295 Take 1 Tablet(s) Oral QPM every evening 04/12/19 025 Inactive irbesartan 150 mg tablet RxNorm: 436841 Take 1 Tablet(s) Oral BID 04/12/19 025 Inactive Trelegy Ellipta 200 mcg-62.5 mcg-25 mcg powder for inhalation RxNorm: 1308660 Inhale 1 Puff(s) Inhalation every 24 hours 04/12/19 025 Inactive Vitron-C 65 mg iron-125 mg tablet,delayed release RxNorm: 1213578 Take 1 Tablet(s) Oral QOD every other day 04/12/19 025 Inactive Eliquis 5 mg tablet RxNorm: 0281702 Take 1 Tablet(s) Oral BID 04/12/19 25 025 Inactive Lantus Solostar U-100 Insulin 100 unit/mL (3 mL) subcutaneous pen RxNorm: 152253 Unit(s) Subcutaneous prime en with 2 units, [...] data Instructions Comment Date Alyx resides at [facility] since about 2021. Previously lived independently in [place]. . Has one daughter Maggie who is involved in healthcare. PMH: History of breast cancer and melanoma, mixed dementia, depression, CAD, HLD, history of CVA/TIA, compression fx of L1 vertebrae, urinary incontinence, hearing loss, osteopeniaPrimary contact: Maggie Gallegos (Daughter)Code Status: DNR/SelectLab Schedule: Mar/SepSpecialists: [facility] (Q6M), Cardiology [facility] ([facility]) 08/06/2024
--- OUTSIDE RECORDS SUMMARY | 2024-09-04 07:40 | XMS_ITS | CCD ---
Author Name Linda Vivas Address [address] [place] [address] Phone Organization [facility] Phone Care Team Providers Care Geriatric Psychiatrist Name Role Phone Teresa Vivas Primary Care Provider Un available Unavailable Chronic Care Management Unavaila ble Summary Purpose DataExchange Insurance Providers Payer name Policy type / Coverage type Covered alliance party ID Effective Begin Date Effective End Date BCBS of [facility] Medicare Risk [id number] Unknown Un known Family history Mother Diagnosis Age At Onset Stroke Unknown Social History Social History Element Codes Description Effec tive Dates Marital status Unknown 04/13/2024 Marital status Unknown 04/13/2024 Living arrangements Unknown Assisted Living 04/[address]: 8001898 Former smoker 04/[address]: 3765395 Former smoker 04/[address]: 729781654 No Alcohol Consum ption 04/13/[address]: 507184 Currently drin ks alcohol 04/13/2024 Sexually Active? [...] No Inactive Date A ctive SIMVASTATIN RxNorm: 31478 04/13/2024 No Inactive D ate Active Penicillin Unknown 04/13/2024 No Inactive Date A ctive CLOPIDOGREL Unknown 03/23/2024 No Inactive Date Active naproxen RxNorm: 7258 04/13/2024 No Inactive Date Active levofloxacin RxNorm: 33213 03/23/2024 No Inactive Date Active Levemir Unknown 03/23/2024 No Inactive Date Ac tive metformin RxNorm: 243554 04/13/2024 No Inactive Da te Active ESTROGENS Unknown 03/23/2024 No Inactive Date Ac tive Atenolol RxNorm: 1202 04/13/2024 No Inactive Date Active metoprolol succinate RxNorm: 069451 03/23/2024 No Inactive Date Active Januvia RxNorm: 041374 04/13/2024 No Inactive Da te Active furosemide RxNorm: 4603 03/23/2024 No Inactive Balaji e Active azithromycin RxNorm: 85024 04/13/2024 No Inactive Date Active losartan RxNorm: 355408 04/13/2024 No Inactive Da te Active NSAIDS Unknown 03/23/2024 No Inactive Date Ac tive Amlodipine RxNorm: 420924 04/13/2024 No Inactive D ate Active LISINOPRIL RxNorm: 41942 04/13/2024 No Inactive Da te Active PIOGLITAZONE [...] 2 diabetes mellitus without complication, unspecified whether long-term insulin use ICD-10: E11.9 ICD-9: 250.00 08/31/2024 [...] ACP (advance care planning) SNOMED CT: 3 15157939 ICD-10: Z71.89 ICD-9: V65.49 06/01/2024 Active Adult general medical exam SNOMED CT: 30 6637484 ICD-10: Z00.00 ICD-9: V70.9 06/01/2024 Active Atherosclerosis of coronary artery of [place] heart without angina pectoris, unspecified vessel or lesion type ICD-10: I25.10 ICD-9: 414.01 06/01/2024 Active 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 ICD-9: 311 06/01/[address]: 937188357 ICD-10: R54 ICD-9: 797 06/01/2024 Active Mixed [...] fracture of L1 vertebra, sequela SNOMED CT: 868261297 ICD-10: S32.010S ICD-9: 905.1 04/13/2024 Active Dementia in other diseases classified elsewhere, unspecified severity, without behavioral disturbance, psychotic disturbance, mood disturbance, and anxiety ICD-10: F02.80 04/13/[address]: 860505636 ICD-10: K57.90 ICD-9: 562.10 04/13/2024 Active History of breast cancer SNOMED CT: 4290 39123 ICD-10: Z85.3 ICD-9: V10.3 04/13/2024 Active History of melanoma SNOMED CT: 703728324 ICD-10: Z85.820 ICD-9: V10.82 04/13/2024 Active History of TIA (transient ischemic attack) SNOMED CT: 443882151 ICD-10: Z86.73 ICD-9: V12.54 04/13/2024 Active Hyperlipidemia, unspecified hyperlipidemia type SNOMED CT: 80708289 ICD-10: E78.5 ICD-9: 272.4 04/13/2024 Active Statin intolerance SNOMED CT: 252689126 ICD-10: Z78.9 ICD-9: 995.27 04/13/2024 Active Medications Medication Codes Instructions Start Date Stop Date Status Fill Instructions albuterol sulfate 2.5 mg/3 mL (0.083 %) solution for nebulization RxNorm: 922723 Take 3 Milliliter(s) Inhalation BID and BID PRN for shortness of breath/cough. 09/01/19 25 026 Active furosemide 40 mg tablet RxNorm: 170900 Take 1 Tablet(s) Oral QD 08/20/19 25 025 Inactive furosemide 40 mg tablet RxNorm: 341859 Take 1 Tablet(s) Oral QD 08/20/19 25 025 Inactive Contour Next EZ Meter RxNorm: USE TO JENIFER T BLOOD GLUCOSE DAILY (DX: DIABETES TYPE 2) 08/18/19 25 025 Active Contour Next Test Strips RxNorm: Use 1 strip BID 08/17/19 25 026 Active carvedilol 6.25 mg tablet RxNorm: 170494 Take 1 Tablet(s) Oral BID 08/10/19 25 No Stop Date Active nystatin 100,000 unit/gram topical powder RxNorm: 847467 Gram(s) Topical apply to affected area BID 08/10/19 25 025 Inactive hydrochlorothiazide 50 mg tablet RxNorm: 296142 Take 1 Tablet(s) Oral QD 08/07/19 25 No Stop Date Active Lantus Solostar U-100 Insulin 100 unit/mL (3 mL) subcutaneous pen RxNorm: 628362 Unit(s) Subcutaneous inject 14 units every am 08/07/19 25 No Stop Date Active Vitron-C 65 mg iron-125 mg tablet,delayed release RxNorm: 9134439 1 Tablet(s) Oral QOD every other day 07/23/19 25 025 Inactive *URGENT REQUEST* PLEASE SEND REFILLS FOR CYCLE FILL. THANK YOU! Oyster Shell Calcium-500 500 mg (as carbonate 1,250 mg) tablet RxNorm: 620448 1 TABLET ORALLY DAILY FOR BONE HEALTH 07/09/19 25 026 Active PLEASE SEND REFILLS.PHARMA CY PLEASE PROFILE FOR FUTURE USE-[facility] Co Q-10 200 mg capsule RxNorm: 884222 1 CAPSULE ORALLY DAILY W/ 100MG CAP FOR A TOTAL DOSE OF 300MG (DX: SUPPLEMENT) 07/09/19 25 026 Active PLEASE SEND REFILLS.PHARMA CY PLEASE PROFILE FOR FUTURE USE-[facility] oxybutynin chloride ER 10 mg tablet,extended release 24 hr RxNorm: 359146 1 TAB ORALLY EVERY EVENING FOR BLADDER SPASMS 07/09/19 25 026 Active PLEASE SEND REFILLS.PHARMA CY PLEASE PROFILE FOR FUTURE USE-[facility] Trelegy Ellipta 200 mcg-62.5 mcg-25 mcg powder for inhalation RxNorm: 4422566 INHALE 1 PUFF INTO THE LUNGS EVERY 24 HOURS (DX: CHRONIC OBSTRUCTIVE PULMONARY DISEASE) 07/09/19 25 026 Active PLEASE SEND REFILLS.PHARMA CY PLEASE PROFILE FOR FUTURE USE-[facility] fluoxetine 10 mg capsule RxNorm: 158351 1 CAPSULE ORALLY DAILY (DX: DEPRESSION) (DX: ANXIETY) 07/09/19 026 Active PLEASE SEND REFILLS.PHARMA CY PLEASE PROFILE FOR FUTURE USE-[facility] irbesartan 150 mg tablet RxNorm: 713021 1 TABLET ORALLY 2 TIMES DAILY (DX: HYPERTENSION) 07/09/19 026 Active PLEASE SEND REFILLS.PHARMA CY PLEASE PROFILE FOR FUTURE USE-[facility] cholecalciferol (vitamin D3) 25 mcg (1,000 unit) tablet RxNorm: 691038 1 TABLET ORALLY DAILY (DX: VITAMIN D DEFICIENCY) 07/09/19 026 Active PLEASE SEND REFILLS.PHARMA CY PLEASE PROFILE FOR FUTURE USE-[facility] quetiapine 25 mg tablet RxNorm: 316789 1 TABLET ORALLY AT BEDTIME (DX: ANXIETY) 07/09/19 Active PLEASE SEND REFILLS.PHARMA CY PLEASE PROFILE FOR FUTURE USE-[facility] coenzyme Q10 100 mg capsule RxNorm: 884833 1 CAPSULE ORALLY DAILY W/ 200MG CAP FOR A TOTAL DOSE OF 300MG (DX: SUPPLEMENT) 07/09/19 Active PLEASE SEND REFILLS.PHARMA CY PLEASE PROFILE FOR FUTURE USE-[facility] donepezil 10 mg tablet RxNorm: 419909 1 TABLET ORALLY AT BEDTIME (DX: DEMENTIA) 07/09/19 Active PLEASE SEND REFILLS.PHARMA CY PLEASE PROFILE FOR FUTURE USE-[facility] alcohol swabs RxNorm: 146108 USE DIRECTED 07/09/19 Active PLEASE SEND REFILLS.PHARMA CY PLEASE PROFILE FOR FUTURE USE-[facility] Vitron-C 65 mg iron-125 mg tablet,delayed release RxNorm: 6975182 1 Tablet(s) Oral QOD every other day 07/09/19 25 025 Inactive PLEASE SEND REFILLS.PHARMA CY PLEASE PROFILE FOR FUTURE USE-[facility] cyanocobalamin (vit B-12) 500 mcg tablet RxNorm: 247697 1 TABLET ORALLY DAILY (DX: ANEMIA) 07/09/19 25 025 Inactive PLEASE SEND REFILLS.PHARMA CY PLEASE PROFILE FOR FUTURE USE-[facility] hydrochlorothiazide 25 mg tablet RxNorm: 572518 1 TABLET ORALLY DAILY (DX: HYPERTENSION) 07/09/19 25 025 Inactive PLEASE SEND REFILLS.PHARMA CY PLEASE PROFILE FOR FUTURE USE-Medical[facility] Contour Next EZ Meter RxNorm: USE TO JENIFER T BLOOD GLUCOSE DAILY (DX: DIABETES TYPE 2) 07/09/19 25 025 Inactive PLEASE SEND REFILLS.PHARMA CY PLEASE PROFILE FOR FUTURE USE-Medical[facility] Alejandra Protect (zinc oxide) 12 % topical cream RxNorm: 787794 APPLY TO RIGHT BUTTOCK 2 TIMES DAILY;APPLY TO RIGHT BUTTOCK NEEDED WITH SOILING 06/12/19 25 026 Active albuterol sulfate HFA 90 mcg/actuation aerosol inhaler RxNorm: 2106449 Inhale 2 Puff(s) Inhalation Q4H every four hours as needed 06/01/19 25 025 Inactive Alejandra Protect (zinc oxide) 12 % topical cream RxNorm: 204834 cream Topical apply to right buttocks BID and PRN with soiling 06/01/19 25 025 Inactive Lantus Solostar U-100 Insulin 100 unit/mL (3 mL) subcutaneous pen RxNorm: 402182 Unit(s) Subcutaneous prime en with 2 units, then inject 8 units SQ QD at bedtime 05/18/19 025 Inactive potassium chloride ER 10 mEq tablet,extended release RxNorm: 934047 Take 1 Tablet(s) Oral QD 04/12/19 25 No Stop Date Active acetaminophen 500 mg tablet RxNorm: 703973 Take 2 Tablet(s) Oral TID as needed 04/12/19 25 No Stop Date Active fluoxetine 10 mg capsule RxNorm: 683355 Take 1 Capsule(s) Oral QD 04/12/19 25 025 Inactive hydrochlorothiazide 25 mg tablet RxNorm: 432673 Take 1 Tablet(s) Oral QD 04/12/19 25 025 Inactive Oyster Shell Calcium 500 mg (as calcium carbonate 1,250 mg) tablet RxNorm: 462029 Take 1 Tablet(s) Oral QD 04/12/19 25 025 Inactive Co Q-10 200 mg capsule RxNorm: 299191 Capsule(s) Oral take 1 cap po daily with 100mg tab to =300mg daily 02/03/ 025 Inactive Co Q-10 100 mg capsule RxNorm: 799855 Capsule(s) Oral take 1 cap daily along with 200mg tab to =300mg daily 04/12/19 025 Inactive quetiapine 25 mg tablet RxNorm: 474421 Take 1 Tablet(s) Oral QHS every night at bedtime 04/12/19 025 Inactive Vitamin D3 25 mcg (1,000 unit) tablet RxNorm: 312035 Take 1 Tablet(s) Oral QD 04/12/19 025 Inactive donepezil 10 mg tablet RxNorm: 464418 Take 1 Tablet(s) Oral QHS every night at bedtime 04/12/19 025 Inactive cyanocobalamin (vit B-12) 500 mcg tablet RxNorm: 926440 Take 1 Tablet(s) Oral QD 04/12/19 025 Inactive oxybutynin chloride ER 10 mg tablet,extended release 24 hr RxNorm: 646360 Take 1 Tablet(s) Oral QPM every evening 04/12/19 025 Inactive irbesartan 150 mg tablet RxNorm: 148381 Take 1 Tablet(s) Oral BID 04/12/19 025 Inactive Trelegy Ellipta 200 mcg-62.5 mcg-25 mcg powder for inhalation RxNorm: 2675150 Inhale 1 Puff(s) Inhalation every 24 hours 04/12/19 025 Inactive Vitron-C 65 mg iron-125 mg tablet,delayed release RxNorm: 2448675 Take 1 Tablet(s) Oral QOD every other day 04/12/19 025 Inactive Eliquis 5 mg tablet RxNorm: 2927670 Take 1 Tablet(s) Oral BID 04/12/19 025 Inactive Lantus Solostar U-100 Insulin 100 unit/mL (3 mL) subcutaneous pen RxNorm: 913252 Unit(s) Subcutaneous prime en with 2 units, [...] Result Date Service Location Basic Metabolic Panel [id number] POTASSIUM (XU) 2823-3 3.8 mmol/L 09/04/19 25 Unknown Basic Metabolic Panel [id number] CHLORIDE (XU) 98 mmol/L 09/04/19 25 Unknown Basic Metabolic Panel [id number] CO2 (XU) 30 mmol/L 09/04/19 25 Unknown Basic Metabolic Panel [id number] Calcium 9.3 mg/dL 09/04/19 25 Unknown Basic Metabolic Panel [id number] ANION GAP (XU) 10 mmol/L 09/04/19 25 Unknown Basic Metabolic Panel [id number] Creatinine 0.76 mg/dL 09/04/19 25 Unknown Basic Metabolic Panel [id number] GLUCOSE (XU) 2345-7 71 mg/dL 09/04/19 25 Unknown Basic Metabolic Panel [id number] Sodium 138 mmol/L 09/04/19 25 Unknown Basic Metabolic Panel [id number] UREA NITROGEN (XU) 16.5 mg/dL 09/04/19 25 Unknown Basic Metabolic Panel [id number] GFR, ESTIMATE 19023-2 75 mL/min/1.73m 2 09/04/19 25 Unknown CBC with Platelets [id number] WBC COUNT (AUTOMATED) 4.1 10e3/uL 06/05/19 25 Unknown CBC with Platelets PWU469 RBC COUNT 789-8 4.37 10e6/uL 06/05/19 25 Unknown CBC with Platelets VJC653 Hemoglobin 718-7 13.5 g/dL 06/05/19 25 Unknown CBC with Platelets JPL541 Hematocrit 4544-3 42.8 % 06/05/19 25 Unknown CBC with Platelets [id number] MCV 787-2 98 fL 06/05/19 25 Unknown CBC with Platelets EEO503 MCH 30.9 pg 06/05/19 25 Unknown CBC with Platelets WST856 MCHC 31.5 g/dL 06/05/19 25 Unknown CBC with Platelets RTC062 RDW 16.5 % 06/05/19 25 Unknown CBC with Platelets ZCP200 Platelet Count 777-3 181 10e3/uL 06/05/19 25 Unknown Hemoglobin A1c LAB90 EST AVERAGE GLUCOSE 151 mg/dL 06/05/19 25 Unknown Hemoglobin A1c LAB90 Hemoglobin A1c 15238-4 6.9 % 06/05/19 25 Unknown Glucose UBR2440 Sodium 140 mmol/L 06/05/19 25 Unknown Glucose SUG7679 POTASSIUM (XU) 2823-3 3.5 mmol/L 06/05/19 25 Unknown Glucose HRC7684 CHLORIDE (XU) 100 mmol/L 25 Unknown Glucose DQX2006 CO2 (XU) 28 mmol/L 06/05/19 25 Unknown Glucose HZV8586 ANION GAP (XU) 12 mmol/L 06/05/19 25 Unknown Glucose SCJ4506 UREA NITROGEN (XU) 13.7 mg/dL 06/05/19 25 Unknown Glucose QQA3373 Creatinine 0.75 mg/dL 06/05/19 25 Unknown Glucose MMR9183 GFR, ESTIMATE 78878-0 76 mL/min/1.73m 2 06/05/19 25 Unknown Glucose ROZ9417 Calcium 9.3 mg/dL 06/05/19 25 Unknown Basic Metabolic Panel [id number] POTASSIUM (XU) 2823-3 3.5 mmol/L 06/05/19 25 Unknown Basic Metabolic Panel [id number] CHLORIDE (XU) 100 mmol/L 06/05/19 25 Unknown Basic Metabolic Panel HAT0803 CO2 (XU) 28 mmol/L 06/05/19 25 Unknown Basic Metabolic Panel [id number] Calcium 9.3 mg/dL 06/05/19 25 Unknown Basic Metabolic Panel VHT1223 ANION GAP (XU) 12 mmol/L 06/05/19 25 Unknown Basic Metabolic Panel SPO4501 Creatinine 0.75 mg/dL 06/05/19 Unknown Basic Metabolic Panel QBH7202 GLUCOSE (XU) 2345-7 79 mg/dL 06/05/19 Unknown Basic Metabolic Panel QIQ8536 Sodium 140 mmol/L 06/05/19 Unknown Basic Metabolic Panel [id number] UREA NITROGEN (XU) 13.7 mg/dL 06/05/19 Unknown Basic Metabolic Panel BIR3843 GFR, ESTIMATE 17686-2 76 mL/min/1.73m 2 06/05/19 Unknown Urine Culture 56987 URINE CULTURE 50275-8 SEE RESU LTS BELOW 06/04/19 Unknown PHQ9 PHQ9 68852-2 1 06/02/19 Unknown UA with Microscopic 84945 COLOR Light Yellow 06/01/19 Unknown UA with Microscopic 33626 Appearance Slightly Cloudy 06/01/19 Unknown UA with Microscopic 86479 GLUCOSE, URINE Negative mg/dL 06/01/19 Unknown UA with Microscopic 06032 BILIRUBIN, URINE Negative 06/01/19 Unknown UA with Microscopic 56444 Ketones Urine Negative mg/dL 06/01/19 Unknown UA with Microscopic 78707 Specific [place] Urine 1.012 06/01/19 Unknown UA with Microscopic 40004 BLOOD, URINE Negative 06/01/19 Unknown UA with Microscopic 82654 pH Urine 6.5 06/01/19 Unknown UA with Microscopic 91892 Protein urine Negative mg/dL 06/01/19 Unknown UA with Microscopic 64144 UROBILINOGEN IRIS Normal mg/dL 06/01/19 Unknown UA with Microscopic 98750 Nitrites Positive 06/01/19 Unknown UA with Microscopic 09215 LEUK ESTERASE Trace 06/01/19 Unknown UA with Microscopic 19469 Bacteria Few /HPF 06/01/19 Unknown UA with Microscopic 85362 WBC CLUMPS 6690-2 Present /HPF 06/01/19 25 Unknown UA with Microscopic 79952 Mucus Urine Present /LPF 06/01/19 25 Unknown UA with Microscopic 48436 RBC Urine <1 /HPF 06/01/19 Unknown UA with Microscopic 83247 SQUAMOUS EPITHELIAL 2 /HPF 06/01/19 Unknown UA with Microscopic 67073 WBC Urine 68416-0 26 /HPF 06/01/19 25 Unknown Urine Culture 73044 URINE CULTURE 75590-0 SEE RESU LTS BELOW 05/23/19 25 Unknown UA with Microscopic 95186 COLOR Yellow 05/22/19 25 Unknown UA with Microscopic 69467 Appearance Slightly Cloudy 05/22/19 25 Unknown UA with Microscopic 09845 GLUCOSE, URINE Negative mg/dL 05/22/19 25 Unknown UA with Microscopic 38694 BILIRUBIN, URINE Negative 05/22/19 25 Unknown UA with Microscopic 45094 Ketones Urine Negative mg/dL 05/22/19 25 Unknown UA with Microscopic 02202 Specific [place] Urine 1.013 05/22/19 25 Unknown UA with Microscopic 47301 BLOOD, URINE Negative 05/22/19 25 Unknown UA with Microscopic 41955 pH Urine 6.5 05/22/19 25 Unknown UA with Microscopic 65358 Protein urine 10 mg/dL 05/22/19 25 Unknown UA with Microscopic 16883 UROBILINOGEN IRIS Normal mg/dL 05/22/19 25 Unknown UA with Microscopic 11807 Nitrites Positive 05/22/19 25 Unknown UA with Microscopic 34284 LEUK ESTERASE Large 05/22/19 25 Unknown UA with Microscopic 58045 Bacteria Few /HPF 05/22/19 25 Unknown UA with Microscopic 92287 Mucus Urine Present /LPF 05/22/19 25 Unknown UA with Microscopic 84807 RBC Urine 0 /HPF 05/22/19 25 Unknown UA with Microscopic 35852 SQUAMOUS EPITHELIAL 3 /HPF 05/22/19 25 Unknown UA with Microscopic 24234 WBC Urine 81816-0 24 /HPF 05/22/19 25 Unknown UA with Microscopic 40092 TRANSITIONAL EPI <1 /HPF 05/22/19 25 Unknown PHQ9 PHQ9 37415-3 2 04/13/19 25 Unknown SLUMS SLUMS 79648-1 13 04/13/19 25 Unknown Procedures Procedure Codes Date DSCHRG MED/CURRENT MED MERGE CPT-4: 1111F 05/2024 HG A1C LEVEL LT 7.0% CPT-4: 3044F 06/29/2024 PT INELIG NEG SCRN DEPRES SNOMED CT: 428 789519597220 CPT-4: G8510 06/01/2024 PT INELIG NEG SCRN DEPRES SNOMED CT: 428 191507798681 CPT-4: G8510 04/13/2024 Vital Signs Date Vital 08/31/2024 Blood Pressure 1: 142/70 Code: 8480-6 Heart Rate 1: 82 bpm Code: 8867-4 Respiratory Rate: 20 bpm SpO2: 91% Temperature: 35.4 (C) / 95.8 (F) Weight: 208 lbs 6 oz Code: 3141-9 08/10/2024 Blood Pressure 1: 144/68 Code: 8480-6 BMI: 35.0 Code: 88020-0 Heart Rate 1: 78 bpm Code: 8867-4 [...] 1: 150/90 Code: 8480-6 BMI: NaN Code: 59584-7 Heart Rate 1: 71 bpm Code: 8867-4 [...] Encounter Performer Location Location Address Codes Date ([id number]) Home Visit - Est Pt, moderate Diagnosis: Primary hypertension[ICD10: I10] Diagnosis: Chronic heart failure with preserved ejection fraction[ICD10: I50.32] Diagnosis: Chronic obstructive pulmonary disease, unspecified COPD type[ICD10: J44.9] Diagnosis: Type 2 diabetes mellitus without complication, unspecified whether intermediate teacher insulin use[ICD10: E11.9] Diagnosis: Urinary incontinence, unspecified type[ICD10: R32] Teresa Talbot [facility] [place] [address] CPT-4: 63858 08/31/2024 ([id number]) Home Visit - Est Pt, moderate Diagnosis: Atrial fibrillation, unspecified type[ICD10: I48.91] Diagnosis: Chronic obstructive pulmonary disease, unspecified COPD type[ICD10: J44.9] Diagnosis: Unsteady gait[ICD10: R26.81] Diagnosis: Vascular dementia, unspecified severity, without behavioral disturbance, psychotic disturbance, mood disturbance, and anxiety[ICD10: F01.50] Diagnosis: Pressure injury of left buttock, stage 2[ICD10: L89.322] [facility] [address] [place] [address] CPT-4: 16918 08/10/2024 ([id number]) Home Visit - Est Pt, moderate Diagnosis: Acute cystitis without hematuria[ICD10: N30.00] Diagnosis: Chronic heart failure with preserved ejection fraction[ICD10: I50.32] Diagnosis: Iron deficiency anemia, unspecified iron deficiency anemia type[ICD10: D50.9] Diagnosis: Type 2 diabetes mellitus without complication, unspecified whether intermediate teacher insulin use[ICD10: E11.9] Diagnosis: Chronic obstructive pulmonary disease, unspecified COPD type[ICD10: J44.9] [facility] [id number] [place] [address] CPT-4: 25822 06/29/2024 ([id number]) Medicare Annual Wellness Visit (AWV), Subsequent Diagnosis: Adult general medical exam[SNOMED: 904821558] Diagnosis: ACP (advance care planning)[SNOMED: 342899301] Diagnosis: Frailty[SNOMED: 827932122] Diagnosis: Atherosclerosis of coronary artery of [place] heart without angina pectoris, unspecified vessel or [...] diabetes mellitus without complication, unspecified whether intermediate teacher insulin use[ICD10: E11.9] Diagnosis: Unintentional weight loss[ICD10: R63.4] Diagnosis: Unsteady gait[ICD10: R26.81] Diagnosis: Venous insufficiency of both lower extremities[ICD10: I87.2] Diagnosis: Acute cystitis without hematuria[SNOMED: 48267615] Diagnosis: Pressure injury of left buttock, stage 2[ICD10: L89.322] Teresa Talbot [address] [address] CPT-4: G0439 06/01/2024 ([id number]) Home Visit - Est Pt, moderate Diagnosis: Adult general medical exam[SNOMED: 388150469] Diagnosis: ACP (advance care planning)[SNOMED: 753221530] Diagnosis: Frailty[SNOMED: 252830623] Diagnosis: Atherosclerosis of coronary artery of [place] heart without angina pectoris, unspecified vessel or [...] diabetes mellitus without complication, unspecified whether intermediate teacher insulin use[ICD10: E11.9] Diagnosis: Unintentional weight loss[ICD10: R63.4] Diagnosis: Unsteady gait[ICD10: R26.81] Diagnosis: Venous insufficiency of both lower extremities[ICD10: I87.2] Diagnosis: Acute cystitis without hematuria[SNOMED: 68560701] Diagnosis: Pressure injury of left buttock, stage 2[ICD10: L89.322] [facility] [place] [address] CPT-4: 11413 06/01/2024 ([id number]) Home or Residence Visit Est Pt - Moderate Level, 40 mins 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] Diagnosis: Primary hypertension[ICD10: I10] Diagnosis: Pressure injury of left buttock, stage 2[SNOMED: 34367507902158] Diagnosis: Type 2 diabetes mellitus without complication, unspecified whether intermediate teacher insulin use[ICD10: E11.9] [facility] [place] [address] CPT-4: 15266 05/04/2024 ([id number]) Home or Residence Visit [employer] - Moderate Level, 60 mins Diagnosis: Statin intolerance[SNOMED: 860730166] Diagnosis: Mixed Alzheimer and vascular dementia[SNOMED: 48370618709585] Diagnosis: Vascular dementia, unspecified severity, without behavioral disturbance, psychotic disturbance, mood disturbance, and anxiety[ICD10: F01.50] Diagnosis: Dementia in other diseases classified elsewhere, unspecified severity, without behavioral disturbance, psychotic disturbance, mood disturbance, and anxiety[ICD10: F02.80] Diagnosis: History of TIA (transient ischemic attack)[SNOMED: 719506263] Diagnosis: Type 2 diabetes mellitus without complication, unspecified whether long-term insulin use[SNOMED: 77050491] Diagnosis: Venous insufficiency of both lower extremities[SNOMED: 996283636] Diagnosis: Hyperlipidemia, unspecified hyperlipidemia type[SNOMED: 12327155] Diagnosis: Unintentional weight loss[SNOMED: 798802776] Diagnosis: Urinary incontinence, unspecified type[SNOMED: 797238640] Diagnosis: Depression due to dementia[SNOMED: 16945195] Diagnosis: Compression fracture of L1 vertebra, sequela[SNOMED: 296000813] Diagnosis: Atherosclerosis of coronary artery of [place] heart without angina pectoris, unspecified vessel or lesion type[SNOMED: 093912709] Diagnosis: Unsteady gait[SNOMED: 07415620] Diagnosis: Iron deficiency anemia, unspecified iron deficiency anemia type[SNOMED: 78270503] Diagnosis: Osteopenia, unspecified location[SNOMED: 503681872] Diagnosis: CAMILO (obstructive sleep apnea)[SNOMED: 06404200] Diagnosis: Chronic obstructive pulmonary disease, unspecified COPD type[SNOMED: 40722399] Diagnosis: History of breast cancer[SNOMED: 808048877] Diagnosis: History of melanoma[SNOMED: 140600628] Diagnosis: Primary hypertension[SNOMED: 55467760] Diagnosis: Chronic heart failure with preserved ejection fraction[SNOMED: 351701727] Diagnosis: Diverticulosis[SNOMED : 618205648] Diagnosis: Atrial fibrillation, unspecified type[SNOMED: 68241949] Diagnosis: Advance care planning[SNOMED: 850409413] Teresa Talbot [address] [address] CPT-4: 54451 04/13/2024 Plan of Care Planned Activity Notes Codes Status Date Patient Education: Patient Medication Summary Completed 08/31/2024 Patient Education: Influenza Complet ed 08/31/2024 Patient Education: Patient Medication Summary Completed 08/10/2024 Patient Education: Influenza Complet ed 08/10/2024 Appointment: Michela Talbot WPtel: [address] [place], [place] [phone] F/U 08/03/2024 Patient Education: Patient Medication Summary [...] Complet ed 05/04/2024 Appointment: Michela Talbot WPtel: [address] [place], [place] [phone] [facility] 04/13/2024 Patient Education: Patient Medication Summary Completed 04/13/2024 Patient Education: Influenza Complet ed 04/13/2024 Patient Education: Alzheimer''s Disease Completed 04/13/2024 Patient Education: Dementia Complete d 04/13/2024 Instructions Comment Date Alyx resides at [facility] since about 2021. Previously lived independently in [place]. . Has one daughter Maggie who is involved in healthcare. PMH: History of breast cancer and melanoma, mixed dementia, depression, CAD, HLD, history of CVA/TIA, compression fx of L1 vertebrae, urinary incontinence, hearing loss, osteopeniaPrimary contact: Maggie Gallegos (Daughter)Code Status: DNR/SelectLab Schedule: Mar/SepSpecialists: [facility] (Q6M), [facility] ([facility]) 08/06/2024 Chronic heart failure with p reserved ejection fraction Increased edema and shortness of breath reported by staff. CXR revealed pulmonary edema vs interstitial pneumonitis. Treated with 5 day burst of HCTZ 100mg (typically on 50mg daily). Nursing states she has been stable since. Repeat BMP. On exam today, lungs CTA, no labored breathing. Legs are edematous, wearing tubi behavior specialist. Nursing reached out to [facility] in regards to previous compression wraps, they're connecting with a lymph PT for further instruction. She has been utilizing a wheelchair more than her walker which is likely leading to increased edema status. Encourage walker use, exercise, tubi behavior specialist, and elevation. Will continue on HCTZ as well. Type 2 diabetes mellitus without complication, unspecified whether intermediate teacher insulin use Sugars reviewed; stable in 90-200 [...] to avoid exacerbation. Ordering nebulizer machine today. [id number] visit with patient today regarding the need for nebulizer machine due high risk exacerbation of her COPD and repeat hospitalizations. Observations gathered via [id number] examination and evaluation by PA. Patient is [...] mellitus wit hout complication, unspecified whether intermediate teacher insulin use Sugars reviewed; most readings < [...] diabetes mellitus without complication, unspecified whether intermediate teacher insulin use Sugars reviewed; remain in 80s-100s. [...] of care. Atherosclerosis of coronary artery of [place] heart without angina pectoris, unspecified vessel or [...] diabetes mellitus wit hout complication, unspecified whether long-term insulin use Sugars reviewed; remain in 80-90s [...] fibrillation, unspecified type Has seen cardiology in [place] 01/2024. Managed on eliquis 5mg BID. No excessive bruising or bleeding on exam. Atherosclerosis of coronary artery of [place] heart without angina pectoris, unspecified vessel or [...]
--- OUTSIDE RECORDS SUMMARY | 2024-09-04 07:41 | XMS_ITS | CCD ---
Author Name Linda Vivas Address [address] [facility] [address] [place] [address] Phone Organization [facility] Phone Care Team Providers Care Operations And Intelligence Assistant Name Role Phone Teresa Vivas Primary Care Provider Un available Unavailable Chronic Care Management Unavaila ble Summary Purpose DataExchange Insurance Providers Payer name Policy type / Coverage type Covered constitution party ID Effective Begin Date Effective End Date BCBS of [facility] Medicare Risk [id number] Unknown Un known Family history Mother Diagnosis Age At Onset Stroke Unknown Social History Social History Element Codes Description Effec tive Dates Marital status Unknown 04/13/2024 Marital status Unknown 04/13/2024 Living arrangements Unknown Assisted Living 04/[address]: 3671037 Former smoker 04/[address]: 2730372 Former smoker 04/[address]: 233967000 No Alcohol Consum ption 04/13/[address]: 149574 Currently drin ks alcohol 04/13/2024 Sexually Active? [...] No Inactive Date A ctive SIMVASTATIN RxNorm: 86141 04/13/2024 No Inactive D ate Active Penicillin Unknown 04/13/2024 No Inactive Date A ctive CLOPIDOGREL Unknown 03/23/2024 No Inactive Date Active naproxen RxNorm: 7258 04/13/2024 No Inactive Date Active levofloxacin RxNorm: 91924 03/23/2024 No Inactive Date Active Levemir Unknown 03/23/2024 No Inactive Date Ac tive metformin RxNorm: 655448 04/13/2024 No Inactive Da te Active ESTROGENS Unknown 03/23/2024 No Inactive Date Ac tive Atenolol RxNorm: 1202 04/13/2024 No Inactive Date Active metoprolol succinate RxNorm: 813638 03/23/2024 No Inactive Date Active Januvia RxNorm: 936274 04/13/2024 No Inactive Da te Active furosemide RxNorm: 4603 03/23/2024 No Inactive Balaji e Active azithromycin RxNorm: 06736 04/13/2024 No Inactive Date Active losartan RxNorm: 126724 04/13/2024 No Inactive Da te Active NSAIDS Unknown 03/23/2024 No Inactive Date Ac tive Amlodipine RxNorm: 133640 04/13/2024 No Inactive D ate Active LISINOPRIL RxNorm: 80760 04/13/2024 No Inactive Da te Active PIOGLITAZONE [...] 2 diabetes mellitus without complication, unspecified whether snf insulin use ICD-10: E11.9 ICD-9: 250.00 08/31/2024 [...] ACP (advance care planning) SNOMED CT: 3 81391468 ICD-10: Z71.89 ICD-9: V65.49 06/01/2024 Active Adult general medical exam SNOMED CT: 30 4463383 ICD-10: Z00.00 ICD-9: V70.9 06/01/2024 Active Atherosclerosis of coronary artery of [place] heart without angina pectoris, unspecified vessel or lesion type ICD-10: I25.10 ICD-9: 414.01 06/01/2024 Active 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 ICD-9: 311 06/01/[address]: 260585253 ICD-10: R54 ICD-9: 797 06/01/2024 Active Mixed [...] fracture of L1 vertebra, sequela SNOMED CT: 510016294 ICD-10: S32.010S ICD-9: 905.1 04/13/2024 Active Dementia in other diseases classified elsewhere, unspecified severity, without behavioral disturbance, psychotic disturbance, mood disturbance, and anxiety ICD-10: F02.80 04/13/[address]: 933635638 ICD-10: K57.90 ICD-9: 562.10 04/13/2024 Active History of breast cancer SNOMED CT: 4290 50496 ICD-10: Z85.3 ICD-9: V10.3 04/13/2024 Active History of melanoma SNOMED CT: 509970974 ICD-10: Z85.820 ICD-9: V10.82 04/13/2024 Active History of TIA (transient ischemic attack) SNOMED CT: 386576452 ICD-10: Z86.73 ICD-9: V12.54 04/13/2024 Active Hyperlipidemia, unspecified hyperlipidemia type SNOMED CT: 88087304 ICD-10: E78.5 ICD-9: 272.4 04/13/2024 Active Statin intolerance SNOMED CT: 792281293 ICD-10: Z78.9 ICD-9: 995.27 04/13/2024 Active Medications Medication Codes Instructions Start Date Stop Date Status Fill Instructions albuterol sulfate 2.5 mg/3 mL (0.083 %) solution for nebulization RxNorm: 051696 Take 3 Milliliter(s) Inhalation BID and BID PRN for shortness of breath/cough. 09/01/19 25 026 Active furosemide 40 mg tablet RxNorm: 954566 Take 1 Tablet(s) Oral QD 08/20/19 25 025 Inactive furosemide 40 mg tablet RxNorm: 075223 Take 1 Tablet(s) Oral QD 08/20/19 25 025 Inactive Contour Next EZ Meter RxNorm: USE TO JENIFER T BLOOD GLUCOSE DAILY (DX: DIABETES TYPE 2) 08/18/19 25 025 Active Contour Next Test Strips RxNorm: Use 1 strip BID 08/17/19 25 026 Active carvedilol 6.25 mg tablet RxNorm: 421205 Take 1 Tablet(s) Oral BID 08/10/19 25 No Stop Date Active nystatin 100,000 unit/gram topical powder RxNorm: 810886 Gram(s) Topical apply to affected area BID 08/10/19 25 025 Inactive hydrochlorothiazide 50 mg tablet RxNorm: 968879 Take 1 Tablet(s) Oral QD 08/07/19 25 No Stop Date Active Lantus Solostar U-100 Insulin 100 unit/mL (3 mL) subcutaneous pen RxNorm: 064375 Unit(s) Subcutaneous inject 14 units every am 08/07/19 25 No Stop Date Active Vitron-C 65 mg iron-125 mg tablet,delayed release RxNorm: 2235052 1 Tablet(s) Oral QOD every other day 07/23/19 25 025 Inactive *URGENT REQUEST* PLEASE SEND REFILLS FOR CYCLE FILL. THANK YOU! Oyster Shell Calcium-500 500 mg (as carbonate 1,250 mg) tablet RxNorm: 796425 1 TABLET ORALLY DAILY FOR BONE HEALTH 07/09/19 25 026 Active PLEASE SEND REFILLS.PHARMA CY PLEASE PROFILE FOR FUTURE USE-[facility] Co Q-10 200 mg capsule RxNorm: 066532 1 CAPSULE ORALLY DAILY W/ 100MG CAP FOR A TOTAL DOSE OF 300MG (DX: SUPPLEMENT) 07/09/19 25 026 Active PLEASE SEND REFILLS.PHARMA CY PLEASE PROFILE FOR FUTURE USE-[facility] oxybutynin chloride ER 10 mg tablet,extended release 24 hr RxNorm: 108579 1 TAB ORALLY EVERY EVENING FOR BLADDER SPASMS 07/09/19 25 026 Active PLEASE SEND REFILLS.PHARMA CY PLEASE PROFILE FOR FUTURE USE-[facility] Trelegy Ellipta 200 mcg-62.5 mcg-25 mcg powder for inhalation RxNorm: 6973939 INHALE 1 PUFF INTO THE LUNGS EVERY 24 HOURS (DX: CHRONIC OBSTRUCTIVE PULMONARY DISEASE) 07/09/19 25 026 Active PLEASE SEND REFILLS.PHARMA CY PLEASE PROFILE FOR FUTURE USE-[facility] fluoxetine 10 mg capsule RxNorm: 339138 1 CAPSULE ORALLY DAILY (DX: DEPRESSION) (DX: ANXIETY) 07/09/19 026 Active PLEASE SEND REFILLS.PHARMA CY PLEASE PROFILE FOR FUTURE USE-[facility] irbesartan 150 mg tablet RxNorm: 445831 1 TABLET ORALLY 2 TIMES DAILY (DX: HYPERTENSION) 07/09/19 026 Active PLEASE SEND REFILLS.PHARMA CY PLEASE PROFILE FOR FUTURE USE-[facility] cholecalciferol (vitamin D3) 25 mcg (1,000 unit) tablet RxNorm: 363792 1 TABLET ORALLY DAILY (DX: VITAMIN D DEFICIENCY) 07/09/19 026 Active PLEASE SEND REFILLS.PHARMA CY PLEASE PROFILE FOR FUTURE USE-[facility] quetiapine 25 mg tablet RxNorm: 223964 1 TABLET ORALLY AT BEDTIME (DX: ANXIETY) 07/09/19 Active PLEASE SEND REFILLS.PHARMA CY PLEASE PROFILE FOR FUTURE USE-[facility] coenzyme Q10 100 mg capsule RxNorm: 582669 1 CAPSULE ORALLY DAILY W/ 200MG CAP FOR A TOTAL DOSE OF 300MG (DX: SUPPLEMENT) 07/09/19 Active PLEASE SEND REFILLS.PHARMA CY PLEASE PROFILE FOR FUTURE USE-[facility] donepezil 10 mg tablet RxNorm: 602661 1 TABLET ORALLY AT BEDTIME (DX: DEMENTIA) 07/09/19 Active PLEASE SEND REFILLS.PHARMA CY PLEASE PROFILE FOR FUTURE USE-[facility] alcohol swabs RxNorm: 762014 USE DIRECTED 07/09/19 Active PLEASE SEND REFILLS.PHARMA CY PLEASE PROFILE FOR FUTURE USE-[facility] Vitron-C 65 mg iron-125 mg tablet,delayed release RxNorm: 5780135 1 Tablet(s) Oral QOD every other day 07/09/19 25 025 Inactive PLEASE SEND REFILLS.PHARMA CY PLEASE PROFILE FOR FUTURE USE-[facility] cyanocobalamin (vit B-12) 500 mcg tablet RxNorm: 526369 1 TABLET ORALLY DAILY (DX: ANEMIA) 07/09/19 25 025 Inactive PLEASE SEND REFILLS.PHARMA CY PLEASE PROFILE FOR FUTURE USE-[facility] hydrochlorothiazide 25 mg tablet RxNorm: 707717 1 TABLET ORALLY DAILY (DX: HYPERTENSION) 07/09/19 25 025 Inactive PLEASE SEND REFILLS.PHARMA CY PLEASE PROFILE FOR FUTURE USE-Medical[facility] Contour Next EZ Meter RxNorm: USE TO JENIFER T BLOOD GLUCOSE DAILY (DX: DIABETES TYPE 2) 07/09/19 25 025 Inactive PLEASE SEND REFILLS.PHARMA CY PLEASE PROFILE FOR FUTURE USE-[facility] Alejandra Protect (zinc oxide) 12 % topical cream RxNorm: 821856 APPLY TO RIGHT BUTTOCK 2 TIMES DAILY;APPLY TO RIGHT BUTTOCK NEEDED WITH SOILING 06/12/19 25 026 Active albuterol sulfate HFA 90 mcg/actuation aerosol inhaler RxNorm: 8115321 Inhale 2 Puff(s) Inhalation Q4H every four hours as needed 06/01/19 25 025 Inactive Alejandra Protect (zinc oxide) 12 % topical cream RxNorm: 731878 cream Topical apply to right buttocks BID and PRN with soiling 06/01/19 25 025 Inactive Lantus Solostar U-100 Insulin 100 unit/mL (3 mL) subcutaneous pen RxNorm: 173582 Unit(s) Subcutaneous prime en with 2 units, then inject 8 units SQ QD at bedtime 05/18/19 025 Inactive potassium chloride ER 10 mEq tablet,extended release RxNorm: 761260 Take 1 Tablet(s) Oral QD 04/12/19 25 No Stop Date Active acetaminophen 500 mg tablet RxNorm: 769379 Take 2 Tablet(s) Oral TID as needed 04/12/19 25 No Stop Date Active fluoxetine 10 mg capsule RxNorm: 371827 Take 1 Capsule(s) Oral QD 04/12/19 25 025 Inactive hydrochlorothiazide 25 mg tablet RxNorm: 028966 Take 1 Tablet(s) Oral QD 04/12/19 25 025 Inactive Oyster Shell Calcium 500 mg (as calcium carbonate 1,250 mg) tablet RxNorm: 575869 Take 1 Tablet(s) Oral QD 04/12/19 25 025 Inactive Co Q-10 200 mg capsule RxNorm: 288357 Capsule(s) Oral take 1 cap po daily with 100mg tab to =300mg daily 02/03/ 025 Inactive Co Q-10 100 mg capsule RxNorm: 358398 Capsule(s) Oral take 1 cap daily along with 200mg tab to =300mg daily 04/12/19 025 Inactive quetiapine 25 mg tablet RxNorm: 363074 Take 1 Tablet(s) Oral QHS every night at bedtime 04/12/19 025 Inactive Vitamin D3 25 mcg (1,000 unit) tablet RxNorm: 503969 Take 1 Tablet(s) Oral QD 04/12/19 025 Inactive donepezil 10 mg tablet RxNorm: 092326 Take 1 Tablet(s) Oral QHS every night at bedtime 04/12/19 025 Inactive cyanocobalamin (vit B-12) 500 mcg tablet RxNorm: 629720 Take 1 Tablet(s) Oral QD 04/12/19 025 Inactive oxybutynin chloride ER 10 mg tablet,extended release 24 hr RxNorm: 512867 Take 1 Tablet(s) Oral QPM every evening 04/12/19 025 Inactive irbesartan 150 mg tablet RxNorm: 300502 Take 1 Tablet(s) Oral BID 04/12/19 025 Inactive Trelegy Ellipta 200 mcg-62.5 mcg-25 mcg powder for inhalation RxNorm: 1993889 Inhale 1 Puff(s) Inhalation every 24 hours 04/12/19 025 Inactive Vitron-C 65 mg iron-125 mg tablet,delayed release RxNorm: 8346849 Take 1 Tablet(s) Oral QOD every other day 04/12/19 025 Inactive Eliquis 5 mg tablet RxNorm: 6995431 Take 1 Tablet(s) Oral BID 04/12/19 025 Inactive Lantus Solostar U-100 Insulin 100 unit/mL (3 mL) subcutaneous pen RxNorm: 602146 Unit(s) Subcutaneous prime en with 2 units, [...] Result Date Service Location Basic Metabolic Panel [id number] POTASSIUM (XU) 2823-3 3.8 mmol/L 09/04/19 25 Unknown Basic Metabolic Panel [id number] CHLORIDE (XU) 98 mmol/L 09/04/19 25 Unknown Basic Metabolic Panel [id number] CO2 (XU) 30 mmol/L 09/04/19 25 Unknown Basic Metabolic Panel [id number] Calcium 9.3 mg/dL 09/04/19 25 Unknown Basic Metabolic Panel [id number] ANION GAP (XU) 10 mmol/L 09/04/19 25 Unknown Basic Metabolic Panel ZMA0703 Creatinine 0.76 mg/dL 09/04/19 25 Unknown Basic Metabolic Panel [id number] GLUCOSE (XU) 2345-7 71 mg/dL 09/04/19 25 Unknown Basic Metabolic Panel FVI1632 Sodium 138 mmol/L 09/04/19 25 Unknown Basic Metabolic Panel [id number] UREA NITROGEN (XU) 16.5 mg/dL 09/04/19 25 Unknown Basic Metabolic Panel [id number] GFR, ESTIMATE 03864-4 75 mL/min/1.73m 2 09/04/19 25 Unknown CBC with Platelets UTK323 WBC COUNT (AUTOMATED) 4.1 10e3/uL 06/05/19 25 Unknown CBC with Platelets SCJ006 RBC COUNT 789-8 4.37 10e6/uL 06/05/19 25 Unknown CBC with Platelets ZEP398 Hemoglobin 718-7 13.5 g/dL 06/05/19 25 Unknown CBC with Platelets IUP921 Hematocrit 4544-3 42.8 % 06/05/19 25 Unknown CBC with Platelets PTP081 MCV 787-2 98 fL 06/05/19 25 Unknown CBC with Platelets JTC481 MCH 30.9 pg 06/05/19 25 Unknown CBC with Platelets HSS379 MCHC 31.5 g/dL 06/05/19 25 Unknown CBC with Platelets ZGD750 RDW 16.5 % 06/05/19 25 Unknown CBC with Platelets MLX913 Platelet Count 777-3 181 10e3/uL 06/05/19 25 Unknown Hemoglobin A1c LAB90 EST AVERAGE GLUCOSE 151 mg/dL 06/05/19 25 Unknown Hemoglobin A1c LAB90 Hemoglobin A1c 83373-6 6.9 % 06/05/19 25 Unknown Glucose RYG1045 Sodium 140 mmol/L 06/05/19 25 Unknown Glucose NJU4659 POTASSIUM (XU) 2823-3 3.5 mmol/L 06/05/19 25 Unknown Glucose LKA8654 CHLORIDE (XU) 100 mmol/L 25 Unknown Glucose DJM8411 CO2 (XU) 28 mmol/L 06/05/19 25 Unknown Glucose NLZ2347 ANION GAP (XU) 12 mmol/L 06/05/19 25 Unknown Glucose KHX1642 UREA NITROGEN (XU) 13.7 mg/dL 06/05/19 25 Unknown Glucose LQG6354 Creatinine 0.75 mg/dL 06/05/19 25 Unknown Glucose YXJ1425 GFR, ESTIMATE 87542-9 76 mL/min/1.73m 2 06/05/19 25 Unknown Glucose UPZ5514 Calcium 9.3 mg/dL 06/05/19 25 Unknown Basic Metabolic Panel TME0559 POTASSIUM (XU) 2823-3 3.5 mmol/L 06/05/19 25 Unknown Basic Metabolic Panel [id number] CHLORIDE (XU) 100 mmol/L 06/05/19 25 Unknown Basic Metabolic Panel UMA0797 CO2 (XU) 28 mmol/L 06/05/19 25 Unknown Basic Metabolic Panel OXD4228 Calcium 9.3 mg/dL 06/05/19 25 Unknown Basic Metabolic Panel ICE0225 ANION GAP (XU) 12 mmol/L 06/05/19 25 Unknown Basic Metabolic Panel RRC6289 Creatinine 0.75 mg/dL 06/05/19 Unknown Basic Metabolic Panel NRT4252 GLUCOSE (XU) 2345-7 79 mg/dL 06/05/19 Unknown Basic Metabolic Panel PZK1553 Sodium 140 mmol/L 06/05/19 Unknown Basic Metabolic Panel [id number] UREA NITROGEN (XU) 13.7 mg/dL 06/05/19 Unknown Basic Metabolic Panel MPA3834 GFR, ESTIMATE 93329-7 76 mL/min/1.73m 2 06/05/19 Unknown Urine Culture 28128 URINE CULTURE 90328-7 SEE RESU LTS BELOW 06/04/19 Unknown PHQ9 PHQ9 56645-8 1 06/02/19 Unknown UA with Microscopic 20668 COLOR Light Yellow 06/01/19 Unknown UA with Microscopic 37907 Appearance Slightly Cloudy 06/01/19 Unknown UA with Microscopic 27379 GLUCOSE, URINE Negative mg/dL 06/01/19 Unknown UA with Microscopic 07336 BILIRUBIN, URINE Negative 06/01/19 Unknown UA with Microscopic 66213 Ketones Urine Negative mg/dL 06/01/19 Unknown UA with Microscopic 33760 Specific [place] Urine 1.012 06/01/19 Unknown UA with Microscopic 99479 BLOOD, URINE Negative 06/01/19 Unknown UA with Microscopic 28676 pH Urine 6.5 06/01/19 Unknown UA with Microscopic 72682 Protein urine Negative mg/dL 06/01/19 Unknown UA with Microscopic 74945 UROBILINOGEN IRIS Normal mg/dL 06/01/19 Unknown UA with Microscopic 40753 Nitrites Positive 06/01/19 Unknown UA with Microscopic 02624 LEUK ESTERASE Trace 06/01/19 Unknown UA with Microscopic 80071 Bacteria Few /HPF 06/01/19 Unknown UA with Microscopic 07237 WBC CLUMPS 6690-2 Present /HPF 06/01/19 25 Unknown UA with Microscopic 14332 Mucus Urine Present /LPF 06/01/19 25 Unknown UA with Microscopic 04447 RBC Urine <1 /HPF 06/01/19 Unknown UA with Microscopic 01675 SQUAMOUS EPITHELIAL 2 /HPF 06/01/19 Unknown UA with Microscopic 33552 WBC Urine 10841-5 26 /HPF 06/01/19 25 Unknown Urine Culture 90283 URINE CULTURE 35994-6 SEE RESU LTS BELOW 05/23/19 25 Unknown UA with Microscopic 24934 COLOR Yellow 05/22/19 25 Unknown UA with Microscopic 10945 Appearance Slightly Cloudy 05/22/19 25 Unknown UA with Microscopic 38280 GLUCOSE, URINE Negative mg/dL 05/22/19 25 Unknown UA with Microscopic 55669 BILIRUBIN, URINE Negative 05/22/19 25 Unknown UA with Microscopic 23444 Ketones Urine Negative mg/dL 05/22/19 25 Unknown UA with Microscopic 53627 Specific [place] Urine 1.013 05/22/19 25 Unknown UA with Microscopic 28106 BLOOD, URINE Negative 05/22/19 25 Unknown UA with Microscopic 72757 pH Urine 6.5 05/22/19 25 Unknown UA with Microscopic 13856 Protein urine 10 mg/dL 05/22/19 25 Unknown UA with Microscopic 81078 UROBILINOGEN IRIS Normal mg/dL 05/22/19 25 Unknown UA with Microscopic 33001 Nitrites Positive 05/22/19 25 Unknown UA with Microscopic 76975 LEUK ESTERASE Large 05/22/19 25 Unknown UA with Microscopic 97233 Bacteria Few /HPF 05/22/19 25 Unknown UA with Microscopic 32502 Mucus Urine Present /LPF 05/22/19 25 Unknown UA with Microscopic 71693 RBC Urine 0 /HPF 05/22/19 25 Unknown UA with Microscopic 60737 SQUAMOUS EPITHELIAL 3 /HPF 05/22/19 25 Unknown UA with Microscopic 32382 WBC Urine 81096-7 24 /HPF 05/22/19 25 Unknown UA with Microscopic 27724 TRANSITIONAL EPI <1 /HPF 05/22/19 25 Unknown PHQ9 PHQ9 82494-7 2 04/13/19 25 Unknown SLUMS SLUMS 19871-0 13 04/13/19 25 Unknown Procedures Procedure Codes Date DSCHRG MED/CURRENT MED MERGE CPT-4: 1111F 05/2024 HG A1C LEVEL LT 7.0% CPT-4: 3044F 06/29/2024 PT INELIG NEG SCRN DEPRES SNOMED CT: 428 [id number] CPT-4: G8510 06/01/2024 PT INELIG NEG SCRN DEPRES SNOMED CT: 428 007007032897 CPT-4: G8510 04/13/2024 Vital Signs Date Vital 08/31/2024 Blood Pressure 1: 142/70 Code: 8480-6 Heart Rate 1: 82 bpm Code: 8867-4 Respiratory Rate: 20 bpm SpO2: 91% Temperature: 35.4 (C) / 95.8 (F) Weight: 208 lbs 6 oz Code: 3141-9 08/10/2024 Blood Pressure 1: 144/68 Code: 8480-6 BMI: 35.0 Code: 55748-9 Heart Rate 1: 78 bpm Code: 8867-4 [...] 1: 150/90 Code: 8480-6 BMI: NaN Code: 01958-3 Heart Rate 1: 71 bpm Code: 8867-4 [...] Encounter Performer Location Location Address Codes Date ([id number]) Home Visit - Est Pt, moderate Diagnosis: Primary hypertension[ICD10: I10] Diagnosis: Chronic heart failure with preserved ejection fraction[ICD10: I50.32] Diagnosis: Chronic obstructive pulmonary disease, unspecified COPD type[ICD10: J44.9] Diagnosis: Type 2 diabetes mellitus without complication, unspecified whether exterminator insulin use[ICD10: E11.9] Diagnosis: Urinary incontinence, unspecified type[ICD10: R32] Teresa Talbot [place] [address] CPT-4: 02036 08/31/2024 ([id number]) Home Visit - Est Pt, moderate Diagnosis: Atrial fibrillation, unspecified type[ICD10: I48.91] Diagnosis: Chronic obstructive pulmonary disease, unspecified COPD type[ICD10: J44.9] Diagnosis: Unsteady gait[ICD10: R26.81] Diagnosis: Vascular dementia, unspecified severity, without behavioral disturbance, psychotic disturbance, mood disturbance, and anxiety[ICD10: F01.50] Diagnosis: Pressure injury of left buttock, stage 2[ICD10: L89.322] [facility] [address] [place] [address] CPT-4: 44063 08/10/2024 ([id number]) Home Visit - Est Pt, moderate Diagnosis: Acute cystitis without hematuria[ICD10: N30.00] Diagnosis: Chronic heart failure with preserved ejection fraction[ICD10: I50.32] Diagnosis: Iron deficiency anemia, unspecified iron deficiency anemia type[ICD10: D50.9] Diagnosis: Type 2 diabetes mellitus without complication, unspecified whether exterminator insulin use[ICD10: E11.9] Diagnosis: Chronic obstructive pulmonary disease, unspecified COPD type[ICD10: J44.9] [facility] [address] [place] [address] CPT-4: 26736 06/29/2024 ([id number]) Medicare Annual Wellness Visit (AWV), Subsequent Diagnosis: Adult general medical exam[SNOMED: 441889070] Diagnosis: ACP (advance care planning)[SNOMED: 634252878] Diagnosis: Frailty[SNOMED: 710029991] Diagnosis: Atherosclerosis of coronary artery of [place] heart without angina pectoris, unspecified vessel or [...] 2 diabetes mellitus without complication, unspecified whether exterminator insulin use[ICD10: E11.9] Diagnosis: Unintentional weight loss[ICD10: R63.4] Diagnosis: Unsteady gait[ICD10: R26.81] Diagnosis: Venous insufficiency of both lower extremities[ICD10: I87.2] Diagnosis: Acute cystitis without hematuria[SNOMED: 03438706] Diagnosis: Pressure injury of left buttock, stage 2[ICD10: L89.322] Teresa Talbot [address] [address] CPT-4: G0439 06/01/2024 ([id number]) Home Visit - Est Pt, moderate Diagnosis: Adult general medical exam[SNOMED: 937584306] Diagnosis: ACP (advance care planning)[SNOMED: 782796187] Diagnosis: Frailty[SNOMED: 644969589] Diagnosis: Atherosclerosis of coronary artery of [place] heart without angina pectoris, unspecified vessel or [...] 2 diabetes mellitus without complication, unspecified whether exterminator insulin use[ICD10: E11.9] Diagnosis: Unintentional weight loss[ICD10: R63.4] Diagnosis: Unsteady gait[ICD10: R26.81] Diagnosis: Venous insufficiency of both lower extremities[ICD10: I87.2] Diagnosis: Acute cystitis without hematuria[SNOMED: 46588907] Diagnosis: Pressure injury of left buttock, stage 2[ICD10: L89.322] [facility] [address] CPT-4: 75922 06/01/2024 ([id number]) Home or Residence Visit Est Pt - Moderate Level, 40 mins 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] Diagnosis: Primary hypertension[ICD10: I10] Diagnosis: Pressure injury of left buttock, stage 2[SNOMED: 05614216017321] Diagnosis: Type 2 diabetes mellitus without complication, unspecified whether exterminator insulin use[ICD10: E11.9] [facility] [address] CPT-4: 48261 05/04/2024 ([id number]) Home or Residence Visit [employer] - Moderate Level, 60 mins Diagnosis: Statin intolerance[SNOMED: 908639963] Diagnosis: Mixed Alzheimer and vascular dementia[SNOMED: 11615177056321] Diagnosis: Vascular dementia, unspecified severity, without behavioral disturbance, psychotic disturbance, mood disturbance, and anxiety[ICD10: F01.50] Diagnosis: Dementia in other diseases classified elsewhere, unspecified severity, without behavioral disturbance, psychotic disturbance, mood disturbance, and anxiety[ICD10: F02.80] Diagnosis: History of TIA (transient ischemic attack)[SNOMED: 255721337] Diagnosis: Type 2 diabetes mellitus without complication, unspecified whether snf insulin use[SNOMED: 51252124] Diagnosis: Venous insufficiency of both lower extremities[SNOMED: 107627097] Diagnosis: Hyperlipidemia, unspecified hyperlipidemia type[SNOMED: 66157893] Diagnosis: Unintentional weight loss[SNOMED: 509492411] Diagnosis: Urinary incontinence, unspecified type[SNOMED: 772608516] Diagnosis: Depression due to dementia[SNOMED: 30412654] Diagnosis: Compression fracture of L1 vertebra, sequela[SNOMED: 983389829] Diagnosis: Atherosclerosis of coronary artery of [place] heart without angina pectoris, unspecified vessel or lesion type[SNOMED: 166266329] Diagnosis: Unsteady gait[SNOMED: 86154111] Diagnosis: Iron deficiency anemia, unspecified iron deficiency anemia type[SNOMED: 74580123] Diagnosis: Osteopenia, unspecified location[SNOMED: 207503350] Diagnosis: CAMILO (obstructive sleep apnea)[SNOMED: 03140088] Diagnosis: Chronic obstructive pulmonary disease, unspecified COPD type[SNOMED: 63534540] Diagnosis: History of breast cancer[SNOMED: 835423779] Diagnosis: History of melanoma[SNOMED: 517846329] Diagnosis: Primary hypertension[SNOMED: 85609356] Diagnosis: Chronic heart failure with preserved ejection fraction[SNOMED: 709093122] Diagnosis: Diverticulosis[SNOMED : 185935158] Diagnosis: Atrial fibrillation, unspecified type[SNOMED: 72113886] Diagnosis: Advance care planning[SNOMED: 000170114] Teresa Talbot [address] [address] CPT-4: 95099 04/13/2024 Plan of Care Planned Activity Notes Codes Status Date Patient Education: Patient Medication Summary Completed 08/31/2024 Patient Education: Influenza Complet ed 08/31/2024 Patient Education: Patient Medication Summary Completed 08/10/2024 Patient Education: Influenza Complet ed 08/10/2024 Appointment: Michela Talbot WPtel: [address] [place], [place] [phone] F/U 08/03/2024 Patient Education: Patient Medication Summary [...] Complet ed 05/04/2024 Appointment: Michela Talbot WPtel: [address] [place], [place] [phone] [facility] 04/13/2024 Patient Education: Patient Medication Summary Completed 04/13/2024 Patient Education: Influenza Complet ed 04/13/2024 Patient Education: Alzheimer''s Disease Completed 04/13/2024 Patient Education: Dementia Complete d 04/13/2024 Instructions Comment Date Alyx resides at [facility] since about 2021. Previously lived independently in [place]. . Has one daughter Maggie who is involved in healthcare. PMH: History of breast cancer and melanoma, mixed dementia, depression, CAD, HLD, history of CVA/TIA, compression fx of L1 vertebrae, urinary incontinence, hearing loss, osteopeniaPrimary contact: Maggie Gallegos (Daughter)Code Status: DNR/[facility] Schedule: Mar/SepSpecialists: [facility] (Q6M), Cardiology [facility] ([facility] Echo) 08/06/2024 Chronic heart failure with p reserved ejection fraction Increased edema and shortness of breath reported by staff. CXR revealed pulmonary edema vs interstitial pneumonitis. Treated with 5 day burst of HCTZ 100mg (typically on 50mg daily). Nursing states she has been stable since. Repeat BMP. On exam today, lungs CTA, no labored breathing. Legs are edematous, wearing tubi belt fixer. Nursing reached out to TCU in regards to previous compression wraps, they're connecting with a lymph PT for further instruction. She has been utilizing a wheelchair more than her walker which is likely leading to increased edema status. Encourage walker use, exercise, tubi belt fixer, and elevation. Will continue on HCTZ as well. Type 2 diabetes mellitus without complication, unspecified whether exterminator insulin use Sugars reviewed; stable in 90-200 [...] to avoid exacerbation. Ordering nebulizer machine today. [id number] visit with patient today regarding the need for nebulizer machine due high risk exacerbation of her COPD and repeat hospitalizations. Observations gathered via [id number] examination and evaluation by PA. Patient is [...] diabetes mellitus wit hout complication, unspecified whether exterminator insulin use Sugars reviewed; most readings [...] 2 diabetes mellitus without complication, unspecified whether exterminator insulin use Sugars reviewed; remain in 80s-100s. [...] of care. Atherosclerosis of coronary artery of [place] heart without angina pectoris, unspecified vessel or [...] diabetes mellitus wit hout complication, unspecified whether snf insulin use Sugars reviewed; remain in 80-90s [...] fibrillation, unspecified type Has seen cardiology in [place] 01/2024. Managed on eliquis 5mg BID. No excessive bruising or bleeding on exam. Atherosclerosis of coronary artery of [place] heart without angina pectoris, unspecified vessel or [...]
[2024-09-04] MEDS: 0.9 % SODIUM CHLORIDE 1000 ml 1,000 ML IV (08:28)
[2024-09-04] MEDS: fentaNYL 100 MCG/2 ML inj 25 MCG IVP (08:28)
[2024-09-04] MEDS: cefTRIAXone 1 GM in 0.9 % SODIUM CHLORIDE Mini-bag 100 ML IVPB (08:49)
--- NOTE | 2024-09-04 09:06 | ED.NURSE ---
Call from Pt daughter Mirela, updated. Mirela is at wedding in [place], is thankful for return call when plan is determined.
[2024-09-04 09:09] LABS: Appearance Urine Cloudy (Clear); Bilirubin Urine Negative (Negative); Blood Urine 1+ (Negative); Color Urine Light yellow (Yellow); Glucose Urine Negative (Negative); Ketones Urine Negative (Negative); Leukocyte Esterase Urine 1+ (Negative); Nitrite Urine Positive (Negative); Protein Urine Negative (Negative); Specific Gravity Urine 1.015 (1.000-1.030); Urobilinogen Urine 0.2 (0.2-1.0)
[2024-09-04] MEDS: DOXYCYCLINE HYCLATE 100 MG in 0.9 % SODIUM CHLORIDE Mini-bag 100 ML IVPB (09:19)
[2024-09-04 09:22] LABS: Bacteria Urine Many; Squamous Epithelial Cell Urine Few (None-Few); WBC Urine >100 (0-5)
[2024-09-04 09:55] LABS: PCR FLU A Negative PCR FLU A (Negative); PCR FLU B Negative PCR FLU B (Negative); PCR RSV Negative PCR RSV (Negative); SARS PCR* Negative SARS-CoV-2 (Negative)
--- NOTE | 2024-09-04 10:19 | PM.IMHP1 ---
Assessment and Plan Assessment and plan (1) Closed rib fracture: Problem comment: - nondisplaced fracture of 8th rib noted on CT 09/04 - Lidocaine patch, good pulmonary hygiene Status: Acute (2) Bilateral pneumonia: Problem comment: - noted on 09/04 imaging - supplemental oxygen for hypoxia, taper as tolerated - Ceftriaxone and Doxycycline (09/04) Status: Acute (3) Acute hypoxic respiratory failure: Problem comment: -O2 saturations as low as 81% in the ER - supplemental oxygen, monitor for CO2 retention given COPD history Status: Acute (4) UTI (urinary tract infection): Problem comment: - positive UA on 09/04, culture pending - on daily IV Ceftriaxone Status: Acute (5) Acute pain of right wrist: Problem comment: - negative imaging in ED - OT referral Status: Acute (6) Falls: Problem comment: - frequent falls, was hospitalized at [facility] in 07/2024 and discharged on 07/13/24 to SNF for rehab - admitted 09/04/24 for another fall, high risk given age and cognitive impairment - therapies ordered Status: Acute (7) Hypertension: Problem comment: - currently has age-appropriate control on home medications: Irbesartan, Carvedilol, HCTZ + potassium replacement Status: Acute (8) Afib: Problem comment: - permanent, rate controlled on Coreg - not anticoagulated per chart review given history of falls, age, and comorbidities Status: Acute Plan - per above - Lovenox for ppx - requires inpatient level of care given hypoxia, pneumonia, rib fracture, UTI - daughter Maggie updated by phone, questions answered Hospitalist- H&P: HPI History of Present Illness Date Seen: 09/04/24 Chief complaint: Fall Narrative: Alyx Sarmiento is a 89 year old female who presented to the ER by ambulance from her memory care after a fall at home. She was ambulating with her walker, it caught on something, and she fell onto her R side. ER Course: - Oxygen saturation as low as 81% on RA upon arrival, supplemental oxygen placed - no acute abnormalities on head CT, C-Spine CT, or R wrist Xray - CT C/A/P: acute nondisplaced of R 8th rib - previous RUL consolidation has resolved; new masslike consolidations BLLs and RML - Ceftriaxone and Doxycycline initiated for pneumonia Given patient's acute hypoxic respiratory failure, rib fracture, pneumonia; admitted to the hospital for supplemental oxygen, IV antibiotics, therapy evaluations. Alyx has cognitive impairment, reviewed history and code status with daughter Maggie by phone. Recently moved to Memory Care at [facility], has 30/09 care. [facility] manages her Primary Care. Review of Systems Status of ROS: Reports: 10 or more systems reviewed and unremarkable except as noted in History and below Narrative: - denies chest pain - endorses + dysuria - no fevers Medical Decision Making Medical Decision Making Has patient completed a Health Care Directive[facility] Medical History (Updated 09/04/24 @ 13:19 by Kim Beltran MD) Type 2 diabetes mellitus (09/26/11) ?E11.9 - Type 2 diabetes mellitus without complications (ICD-10) Obstructive sleep apnea syndrome ?G47.33 - Obstructive sleep apnea (adult) (pediatric) (ICD-10) Urinary incontinence ?R32 - Unspecified urinary incontinence (ICD-10) Venous insufficiency of both lower extremities ?I87.2 - Venous insufficiency (chronic) (peripheral) (ICD-10) Transient ischemic attack (TIA) ?G45.9 - Transient cerebral ischemic attack, unspecified (ICD-10) Statin intolerance (02/13/12) ?Z78.9 - Other specified health status (ICD-10) Pulmonary embolism ?I26.99 - Other pulmonary embolism without acute cor pulmonale (ICD-10) Squamous cell carcinoma (09/26/11) Osteopenia ?M85.80 - Other specified disorders of bone density and structure, unspecified site (ICD-10) Malignant neoplasm of breast (09/26/11) ?C50.919 - Malignant neoplasm of unspecified site of unspecified female breast (ICD-10) Malignant melanoma of skin (09/26/11) ?C43.9 - Malignant melanoma of skin, unspecified (ICD-10) Ischemic stroke (02/13/12) ?I63.9 - Cerebral infarction, unspecified (ICD-10) Hypertension (09/26/11) ?I10 - Essential (primary) hypertension (ICD-10) Heart failure with preserved ejection fraction ?I50.30 - Unspecified diastolic (congestive) heart failure (ICD-10) Health care directive on file (08/15/14) ?Z78.9 - Other specified health status (ICD-10) Compression fracture of L1 vertebra ?S32.010A - Wedge compression fracture of first lumbar vertebra, initial encounter for closed fracture (ICD-10) Fall ?W19.XXXA - Unspecified fall, initial encounter (ICD-10) Atrial fibrillation ?I48.91 - Unspecified atrial fibrillation (ICD-10) Lung mass ?R91.8 - Other nonspecific abnormal finding of lung field (ICD-10) Living in assisted living ?Z78.9 - Other specified health status (ICD-10) Cellulitis, toe ?L03.039 - Cellulitis of unspecified toe (ICD-10) Falls ?R29.6 - Repeated falls (ICD-10) Pain in toe ?M79.676 - Pain in unspecified toe(s) (ICD-10) Iron deficiency anemia ?D50.9 - Iron deficiency anemia, unspecified (ICD-10) Anemia ?D64.9 - Anemia, unspecified (ICD-10) POLST (Physician Orders for Life-Sustaining Treatment) ?Z78.9 - Other specified health status (ICD-10) Visit for review of DEXA scan ?Z71.2 - Person consulting for explanation of examination or test findings (ICD-10) Rib fracture ?S22.39XA - Fracture of one rib, unspecified side, initial encounter for closed fracture (ICD-10) Atherosclerotic heart disease ?I25.10 - Atherosclerotic heart disease of [place] coronary artery without angina pectoris (ICD-10) Compression fracture Hearing loss ?H91.90 - Unspecified hearing loss, unspecified ear (ICD-10) 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 or stenosis of small artery (ICD-10) Hyperlipidemia ?E78.5 - Hyperlipidemia, unspecified (ICD-10) Depression ?F32.A - Depression, unspecified (ICD-10) Encounter for screening for severe acute respiratory syndrome coronavirus 2 (SARS-CoV-2) infection ?Z11.52 - Encounter for screening for COVID-19 (ICD-10) Edema ?R60.9 - Edema, unspecified (ICD-10) Diabetes mellitus ?E11.9 - Type 2 diabetes mellitus without complications (ICD-10) Surgical History 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 - Presence of right artificial shoulder joint (ICD-10) 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 (09/26/11) ?Z90.710 - Acquired absence of both cervix and uterus (ICD-10) ?Z90.722 - Acquired absence of ovaries, bilateral (ICD-10) ?Z90.79 - Acquired absence of other genital organ(s) (ICD-10) Status post reverse total replacement of left shoulder ?Z96.612 - Presence of left artificial shoulder joint (ICD-10) 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 Lives in [facility]. Daughter Maggie is medical decision maker. DNR/DNI What is your current living situation?: I presently have a place to live Problems where you live: no known problems Problems where you live details: no In the past 12 months, utilities in danger of being shut off: no In past 12 months, lack of transportation kept you from medical appts, meetings, work, or getting things needed for daily living: no In the past 12 mos, have been you worried that your food would run out before you had money to buy more?: never true In the past 12 mos, the food you bought just didn't last and you didn't have money to buy more?: never true Highest level of school completed/degree received: 8th grade Smoking Status: Former smoker Do you use any of these nicotine containing products: None Second hand tobacco smoke exposure: No How often do you have a drink containing alcohol: monthly or less How often do you have six or more drinks on one occasion: Never AUDIT-C Alcohol total score: 1 Non-prescribed substance use: denies use Caffeine: Yes How often does anyone, including family, friends and others, physically hurt you: never How often does anyone, including family, friends and others, insult or talk down to you: never How often does anyone, including family, friends and others, threaten you with harm: never How often does anyone, including family, friends and others, scream or curse at you: never service: No Meds Home Medications and Allergies Home Medications ?Medication ?Instructions ?Recorded ?Confirmed ?Type coenzyme Q10 300 mg capsule 300 mg PO DAILY 11/01/21 09/04/24 History fluticasone fur. 200 mcg-umeclid 1 inh inhalation Q24H #60 ea 11/14/21 09/04/24 Rx 62.5 mcg-vilant 25 mcg inhalat.powder (Trelegy Ellipta) albuterol sulfate 90 mcg/actuation See Rx Instructions .Route 06/26/22 09/04/24 History aerosol inhaler .COMPLEX PRN calcium carbonate 500 mg PO DAILY 08/28/22 09/04/24 History cholecalciferol (vitamin D3) 25 25 mcg PO DAILY 08/28/22 09/04/24 History mcg (1,000 unit) capsule hydrochlorothiazide 25 mg tablet 25 mg PO QAM #90 tabs 09/03/22 09/04/24 Rx acetaminophen 500 mg capsule 1,000 mg (2 x 500 mg) PO Q4-6H PRN 02/13/23 09/04/24 Rx pain #30 caps donepezil 10 mg tablet 10 mg PO DAILY 11/20/23 09/04/24 History blood sugar diagnostic (Contour #100 ea 01/21/24 01/27/24 Rx Next Test Strips) fluoxetine 10 mg capsule 10 mg PO DAILY 07/11/24 09/04/24 History insulin glargine 100 unit/mL (3 10 unit subcut HS 07/11/24 09/04/24 History mL) subcutaneous pen (Lantus Solostar U-100 Insulin) irbesartan 150 mg tablet 150 mg PO BID 07/11/24 09/04/24 History oxybutynin chloride 10 mg 10 mg PO DAILY 07/11/24 09/04/24 History tablet,extended release 24 hr potassium chloride 10 mEq 10 meq PO DAILY 07/11/24 09/04/24 History tablet,extended release(part/cryst) quetiapine 25 mg tablet 25 mg PO HS 07/11/24 09/04/24 History carvedilol 6.25 mg tablet 6.25 mg PO BID #60 tabs 07/13/24 09/04/24 Rx hydrochlorothiazide 50 mg tablet 50 mg PO DAILY 09/04/24 09/04/24 History oxybutynin chloride 5 mg 5 mg PO DAILY 09/04/24 09/04/24 History tablet,extended release 24 hr Allergies Allergy/AdvReac Type Severity Reaction Status Date / Time amlodipine Allergy Severe Rash Verified 07/10/24 19:15 azithromycin Allergy Severe Limb pain, Verified 07/10/24 19:15 diarrhea furosemide Allergy Severe Hives Verified 07/10/24 19:15 metoprolol Allergy Severe Shortness Verified 07/10/24 19:15 of breath, chest pain, low pulse rate sitagliptin Allergy Severe Lost some Verified 07/10/24 19:15 sight in left eye exenatide Allergy Intermediate Sore Verified 07/10/24 19:15 throat, diarrhea, cough, headache levofloxacin Allergy Intermediate Bruising Verified 07/10/24 19:15 clopidogrel Allergy Mild Edema Verified 07/10/24 19:15 losartan Allergy Unknown Heart Verified 07/10/24 19:15 palpitations, shortness of breath penicillin V Allergy Unknown Verified 07/10/24 19:15 insulin detemir (From Allergy Verified 07/10/24 19:15 Levemir U-100 Insulin) metformin Allergy Verified 07/10/24 19:15 naproxen Allergy Verified 07/10/24 19:15 NSAIDS (Non-Steroidal Allergy Verified 07/10/24 19:15 Anti-Inflamma lisinopril AdvReac Severe Headaches, Verified 07/10/24 19:15 heart palpitations, muscle aches pioglitazone AdvReac Severe Hip and Verified 07/10/24 19:15 arm pain carvedilol AdvReac Mild Vomiting Verified 07/10/24 19:15 simvastatin AdvReac Unknown Fatigued Verified 07/10/24 19:15 Exam Narrative: Exam Narrative: GEN: Alert and sitting in bedside chair, nontoxic HEENT: Bruising over lateral R eye, EOMIs bilaterally, no scleral icterus or conjunctival injection/hemorrhage CV: Irregularly irregular rhythm, early soft systolic murmur heard best at LSB R: Decreased bibasilar breath sounds Ab: Protuberant, soft, nontender Ext: 3-4+ pitting edema BLEs, symmetric. Thickened and hyperpigmented skin c/w PVD Skin: Bruising over R eye, no other concerning skin lesions on exposed skin Neuro: No focal deficits on limited exam, no resting tremor. Gait not observed Psych: Cognitive impairment evident, no agitation Const: Vital Signs, click to edit/add: Vital Signs - 24 hr 09/04/24 06:24 09/04/24 06:35 09/04/24 07:24 Temperature 98.1 F Pulse Rate 73 Pulse Rate [Right Pulse Oximeter] 74 Respiratory Rate 16 20 Blood Pressure Blood Pressure [Ri ght Upper Arm] 160/107 H Pulse Oximetry 92 92 Oxygen Delivery Me thod Room Air Nasal Cannula Oxygen Flow Rate 2 09/04/24 07:25 09/04/24 07:30 09/04/24 07:33 Temperature Pulse Rate 64 69 67 Pulse Rate [Right Pulse Oximeter] Respiratory Rate 24 24 Blood Pressure 157/93 H 143/95 H Blood Pressure [Ri ght Upper Arm] Pulse Oximetry 96 93 93 Oxygen Delivery Me thod Nasal Cannula Nasal Cannula Oxygen Flow Rate 1 1 09/04/24 07:45 09/04/24 08:03 09/04/24 08:04 Temperature Pulse Rate 84 97 77 Pulse Rate [Right Pulse Oximeter] Respiratory Rate 24 Blood Pressure 159/108 H Blood Pressure [Ri ght Upper Arm] Pulse Oximetry 90 81 L 89 Oxygen Delivery Me thod Nasal Cannula Nasal Cannula Oxygen Flow Rate 1 1 09/04/24 08:15 09/04/24 08:30 09/04/24 08:32 Temperature Pulse Rate 91 79 87 Pulse Rate [Right Pulse Oximeter] Respiratory Rate 24 Blood Pressure 162/108 H Blood Pressure [Ri ght Upper Arm] Pulse Oximetry 95 95 90 Oxygen Delivery Me thod Nasal Cannula Oxygen Flow Rate 1 09/04/24 08:45 09/04/24 09:00 09/04/24 09:03 Temperature Pulse Rate 79 67 71 Pulse Rate [Right Pulse Oximeter] Respiratory Rate 24 Blood Pressure 135/68 Blood Pressure [Ri ght Upper Arm] Pulse Oximetry 88 95 95 Oxygen Delivery Me thod Nasal Cannula Oxygen Flow Rate 1 Hospitalist - H&P: Result Labs Labs: Short CBC 09/04/24 Range/Units 06:39 WBC 4.47 L (4.50-11.00) K/uL Hgb 12.7 (12.0-16.0) gm/dL Hct 39.5 (33.0-51.0) % Plt Count 213 (140-440) K/uL BMP 09/04/24 06:39 Sodium 134 L Potassium 3.6 Chloride 96 Carbon Dioxide 34 H BUN 17 Creatinine 0.7 Glucose 96 Calcium 9.0 Cardiac Enzymes 09/04/24 Range/Units 06:39 Total Creatine Kinase 43 (41-117) U/L Liver Function 09/04/24 Range/Units 06:39 Total Bilirubin 0.8 (0.1-1.5) mg/dL AST 36 H (12-35) U/L ALT 25 (4-35) U/L Alkaline Phosphatase 115 (40-150) U/L Albumin 3.4 (3.3-5.0) g/dL Urine 09/04/24 Range/Units 08:09 Urine Color Light yellow (Yellow) Urine Appearance Cloudy A (Clear) Urine pH 6.0 (5.0-8.5) Ur Specific [place] 1.015 (1.000-1.030) Urine Protein Negative (Negative) Urine Glucose (UA) Negative (Negative)
[2024-09-04] MEDS: ACETAMINOPHEN 325 MG TABLET 650 MG PO (10:30)
[2024-09-04 10:39] LABS: Hemoglobin A1C* 6.4 % (0-5.6)
--- NOTE | 2024-09-04 11:24 | ED.NURSE ---
Pt daughter Mirela [phone] updated about admission.
--- NOTE | 2024-09-04 13:01 | ED.NURSE ---
Call from Pt nursing facility; given brief update.
[2024-09-04] MEDS: LIDOCAINE 5% PATCH 1 PATCH TRANSDERMA (13:59)
[2024-09-04] MEDS: ACETAMINOPHEN 500 MG TABLET 1000 MG PO ×3 (13:59→23:17)
--- NOTE | 2024-09-04 18:40 | PC.NURSE ---
End of Shift: Patient pleasant and cooperative, only A&O to self, frequent re-orientation needed. VSS, afebrile. 2L O2 via NC needed this shift to maintain SpO2 maintained above 90% on 2L NC. Patient reports pain in her right wrist, and right ribs this shift, managed with PRN and scheduled medication. ?1A with walker and gait belt. Tolerating regular diet. ?
[2024-09-04] MEDS: carvediloL 6.25 MG TABLET PO (20:32)
[2024-09-04] MEDS: DOXYCYCLINE HYCLATE 100 MG PO (20:32)
[2024-09-04] MEDS: QUETIAPINE 25 MG TABLET PO (20:32)
[2024-09-04] MEDS: IRBESARTAN 150 MG TABLET PO (20:32)
[2024-09-04] MEDS: SODIUM CHLORIDE 0.9 % (FLUSH) 10 ML SYRINGE 5 ML IVF (20:32)
[2024-09-04] MEDS: ENOXAPARIN 40 MG/0.4 ML INJ SUBCUT (20:33)
[2024-09-04] MEDS: INSULIN GLARGINE,HUM.REC.ANLOG 100 UNIT/ML INSULN.PEN 10 UNIT SUBCUT (20:37)
[2024-09-05] VITALS (10 sets, daily range): BP systolic 137–170; BP diastolic 78–100; PULSE 52–87; RESP 16–24; TEMP 36.6–36.9; O2SAT 90–97
[2024-09-05 06:18] LABS: Basophils Percent Auto 0.5 % (0.0-3.0); Eosinophils Percent Auto 3.2 % (0.0-7.0); Hematocrit 42.3 % (33.0-51.0); Hemoglobin* 13.4 gm/dL (12.0-16.0); Immature Granulocytes Pct Auto 1.1 %; Lymphocytes Percent Auto 17.5 % (20-44); Mean Corpuscular HGB Conc 32 gm/dL (32-36); Mean Corpuscular Hemoglobin 31 pg (26-34); Mean Corpuscular Volume 98 fL (80-100); Monocytes Percent Auto 14.9 % (0.0-11.0); Neutrophils Percent Auto 62.8 % (42.0-72.0); Platelet Count* 214 K/uL (140-440); RDW Coefficient of Variation % 15.4 % (11.5-15.5); Red Blood Count 4.31 m/uL (4.00-5.20); White Blood Count* 3.77 K/uL (4.50-11.00)
--- NOTE | 2024-09-05 06:18 | PC.NURSE ---
End of shift report [id number]: VSS. Afebrile. Pt is pleasant and cooperative. At the beginning of the shift pt was on 2 L O2 via nasal cannula, pt has been titrated from 2 - 0.5 L O2 via NC to maintain O2 sats above 90%. Pt was able to maintain?her oxygen saturations at 0.5 L so web content writer tried patient on room air and noted to de-sat to 86%, O2 reapplied and sats returned to 90%. Pt is currently on 2 L O2 via NC. Pt was noted to be sleeping in the chair, web content writer offered pt to go to bed to continue to sleep?and pt agreed. Pt stated she was tired and 2 assist, gaitbelt and sarasteady were utilized to the bedside commode and to bed. Pt rates pain in her right ribs a 8-0/10, prn pain meds offered and given with relief. Mepilex is C/D/I to pts coccyx. In the morning patient ambulated 2 assist, gaitbelt and walker to the commode and chair. Chair alarm on, call light within reach.?
[2024-09-05 06:20] LABS: Slide Review Reflex No
[2024-09-05 06:37] LABS: Chloride* 98 mmol/L (96-114)
[2024-09-05 06:38] LABS: Albumin* 3.6 g/dL (3.3-5.0); Potassium* 3.7 mmol/L (3.6-5.1); Sodium* 136 mmol/L (135-149)
[2024-09-05 06:40] LABS: Blood Urea Nitrogen* 16 mg/dL (7-30); Creatinine* 0.6 mg/dL (0.5-1.5); Est. Creatinine Clearance* 42.05; Estimated Glomerular Filt Rate 86 ml/min
[2024-09-05 06:41] LABS: Alanine Aminotransferase* 23 U/L (4-35); Alkaline Phosphatase* 110 U/L (40-150); Anion Gap 5 mEq/L (7-15); Aspartate Amino Transferase* 31 U/L (12-35); Bilirubin Total* 0.8 mg/dL (0.1-1.5); Calcium* 8.8 mg/dL (8.4-10.6); Carbon Dioxide* 33 mmol/L (20-32); Glucose* 80 mg/dL (60-115); Total Protein* 7.1 g/dL (6.0-8.3)
--- NOTE | 2024-09-05 07:25 | P.IMPN_ITS ---
Assessment and Plan Assessment and plan (1) Closed rib fracture: Problem comment: - nondisplaced fracture of 8th rib noted on CT 09/04 - Lidocaine patch, Tylenol, good pulmonary hygiene Status: Acute (2) Bilateral pneumonia: Problem comment: - noted on 09/04 imaging - supplemental oxygen for hypoxia, taper as tolerated - Ceftriaxone and Doxycycline (09/04) Status: Acute (3) Acute hypoxic respiratory failure: Problem comment: -O2 saturations as low as 81% in the ER - supplemental oxygen, monitor for CO2 retention given COPD history Status: Acute (4) UTI (urinary tract infection): Problem comment: - positive UA on 09/04, culture + GNRs - on daily IV Ceftriaxone Status: Acute (5) Acute pain of right wrist: Problem comment: - negative imaging in ED - OT referral Status: Acute (6) Falls: Problem comment: - frequent falls, was hospitalized at [facility] in 07/2024 and discharged on 07/13/24 to SNF for rehab - admitted 09/04/24 for another fall, high risk given age and cognitive impairment - therapies ordered Status: Acute (7) Hypertension: Problem comment: - currently has age-appropriate control on home medications: Irbesartan, Carvedilol, HCTZ + potassium replacement Status: Acute (8) Afib: Problem comment: - permanent, rate controlled on Coreg - not anticoagulated per chart review given history of falls, age, and comorbidities - Lovenox during hospitalization Status: Acute Plan - per above - likely back to [facility] in 1-2 days (when we have urine culture results and stable on RA) Subjective Date Seen: 09/05/24 Interval history: Alyx was admitted to the hospital on 09/04 for acute hypoxic respiratory failure in the setting of PNA and recent mechanical fall with + rib fracture. She has a history of cognitive impairment; recently moved to Memory Care at [facility] [place]. On Ceftriaxone and Doxycycline, continues to requirelow dose (1-2L NC) supplemental oxygen. Also noted to have a + UA in ER and endorsed dysuria on admission; urine culture growing GNRs. This morning, Alyx notes some discomfort in R chest near known rib fracture, no other pain concerns. Exam Narrative: Exam Narrative: GEN: Sitting comfortably in bedside chair, resting HEENT: Bruising over R eye is stable, + EOMIs bilaterally, no scleral icterus or conjunctival hemorrhage CV: Irregularly irregular rhythm, + early systolic murmur heard best LSB R: Fine bibasilar rales, some R sided chest discomfort when taking a big breath Ext: 3-4+ LE edema, thickened/hyperpigmented skin c/w known PVD Neuro: No focal deficts Psych: Cognitive impairment noted, no agitation, otherwise appropriate Const: Vital Signs, click to edit/add: Vital Signs - 24 hr 09/04/24 07:30 09/04/24 07:33 09/04/24 07:45 Temperature Pulse Rate 69 67 84 Pulse Rate [Pulse Oximeter] Respiratory Rate 24 Blood Pressure 143/95 H Blood Pressure [Ri ght Arm] Pulse Oximetry 93 93 90 Oxygen Delivery Me thod Nasal Cannula Oxygen Flow Rate 1 09/04/24 08:03 09/04/24 08:04 09/04/24 08:15 Temperature Pulse Rate 97 77 91 Pulse Rate [Pulse Oximeter] Respiratory Rate 24 Blood Pressure 159/108 H Blood Pressure [Ri ght Arm] Pulse Oximetry 81 L 89 95 Oxygen Delivery Me thod Nasal Cannula Nasal Cannula Oxygen Flow Rate 1 1 09/04/24 08:30 09/04/24 08:32 09/04/24 08:45 Temperature Pulse Rate 79 87 79 Pulse Rate [Pulse Oximeter] Respiratory Rate 24 Blood Pressure 162/108 H Blood Pressure [Ri ght Arm] Pulse Oximetry 95 90 88 Oxygen Delivery Me thod Nasal Cannula Oxygen Flow Rate 1 09/04/24 09:00 09/04/24 09:03 09/04/24 09:04 Temperature Pulse Rate 67 71 65 Pulse Rate [Pulse Oximeter] Respiratory Rate 24 Blood Pressure 135/68 Blood Pressure [Ri ght Arm] Pulse Oximetry 95 95 94 Oxygen Delivery Me thod Nasal Cannula Oxygen Flow Rate 1 09/04/24 09:15 09/04/24 09:30 09/04/24 09:32 Temperature Pulse Rate 71 71 60 Pulse Rate [Pulse Oximeter] Respiratory Rate 22 Blood Pressure 144/81 H Blood Pressure [Ri ght Arm] Pulse Oximetry 94 86 L 88 Oxygen Delivery Me thod Nasal Cannula Oxygen Flow Rate 1 09/04/24 09:45 09/04/24 10:02 09/04/24 10:15 Temperature Pulse Rate 93 95 75 Pulse Rate [Pulse Oximeter] Respiratory Rate Blood Pressure Blood Pressure [Ri ght Arm] Pulse Oximetry 93 87 L 95 Oxygen Delivery Me thod Room Air Nasal Cannula Oxygen Flow Rate 1 09/04/24 10:30 09/04/24 10:39 09/04/24 11:19 Temperature 97.6 F Pulse Rate 71 81 Pulse Rate [Pulse Oximeter] 71 Respiratory Rate 22 18 Blood Pressure Blood Pressure [Ri ght Arm] 178/96 H Pulse Oximetry 96 98 96 Oxygen Delivery Me thod Nasal Cannula Nasal Cannula Oxygen Flow Rate 1 2 09/04/24 11:19 09/04/24 16:00 09/04/24 16:00 Temperature 97.9 F Pulse Rate Pulse Rate [Pulse Oximeter] 87 Respiratory Rate 18 20 20 Blood Pressure Blood Pressure [Ri ght Arm] 147/91 H Pulse Oximetry 96 94 94 Oxygen Delivery Me thod Nasal Cannula Nasal Cannula Nasal Cannula Oxygen Flow Rate 2 2 09/04/24 16:00 09/04/24 19:00 09/04/24 19:48 Temperature 98.6 F Pulse Rate Pulse Rate [Pulse Oximeter] 87 80 80 Respiratory Rate 20 18 18 Blood Pressure Blood Pressure [Ri ght Arm] 139/110 H Pulse Oximetry 95 Oxygen Delivery Me thod Nasal Cannula Oxygen Flow Rate 2 09/04/24 23:00 09/04/24 23:00 09/05/24 03:00 Temperature 98.5 F 98 F Pulse Rate Pulse Rate [Pulse Oximeter] 79 60 Respiratory Rate 18 18 16 Blood Pressure Blood Pressure [Ri ght Arm] 115/75 137/78 Pulse Oximetry 92 92 92 Oxygen Delivery Me thod Nasal Cannula Nasal Cannula Nasal Cannula Oxygen Flow Rate 1 1 0.5 09/05/24 04:02 09/05/24 04:10 09/05/24 04:51 Temperature Pulse Rate Pulse Rate [Pulse Oximeter] Respiratory Rate Blood Pressure Blood Pressure [Ri ght Arm] Pulse Oximetry 94 90 90 Oxygen Delivery Me thod Room Air Nasal Cannula Nasal Cannula Oxygen Flow Rate 0.5 2 Labs Labs: Laboratory Results - last 24 hr 09/04/24 09/04/24 09/04/24 06:39 08:09 08:20 WBC RBC Hgb Hct MCV MCH MCHC RDW Coeff of Brock Plt Count Neut % (Auto) Lymph % (Auto) [place] % (Auto) Eos % (Auto) Baso % (Auto) Neut # (Auto) Lymph # (Auto) [place] # (Auto) Eos # (Auto) Baso # (Auto) Abs Immat Gran (auto) Imm/Tot Granulo (auto) Sodium 134 L Potassium 3.6 Chloride 96 Carbon Dioxide 34 H Anion Gap 4 L BUN 17 Creatinine 0.7 Estimated Creat Clear 37.82 Estimated GFR 83 Glucose 96 Hemoglobin A1c 6.4 H Calcium 9.0 Total Bilirubin 0.8 AST 36 H ALT 25 Alkaline Phosphatase 115 Total Creatine Kinase 43 Total Protein 6.9 Albumin 3.4 Urine Color Light yellow Urine Appearance Cloudy A Urine pH 6.0 Ur Specific [place] 1.015 Urine Protein Negative Urine Glucose (UA) Negative Urine Ketones Negative Urine Blood 1+ A Urine Nitrite Positive A Urine Bilirubin Negative Urine Urobilinogen 0.2 Ur Leukocyte Esterase 1+ A Urine RBC 10-25 A Urine WBC >100 A Ur Squamous Epith Cells Few Urine Bacteria Many A SARS-CoV-2 (PCR) Negative SARS-CoV-2 Influenza Type A (PCR) Negative PCR FLU A Influenza Type B (PCR) Negative PCR FLU B RSV (PCR) Negative PCR RSV Lab Acknowledgement 09/04/24 09/05/24 10:11 05:41 WBC 3.77 L RBC 4.31 Hgb 13.4 Hct 42.3 MCV 98 MCH 31 MCHC 32 RDW Coeff of Brock 15.4 Plt Count 214 Neut % (Auto) 62.8 Lymph % (Auto) 17.5 L [place] % (Auto) 14.9 H Eos % (Auto) 3.2 Baso % (Auto) 0.5 Neut # (Auto) 2.40 Lymph # (Auto) 0.70 L [place] # (Auto) 0.60 Eos # (Auto) 0.10 Baso # (Auto) 0.00 Abs Immat Gran (auto) 0.00 Imm/Tot Granulo (auto) 1.1 Sodium 136 Potassium 3.7 Chloride 98 Carbon Dioxide 33 H Anion Gap 5 L BUN 16 Creatinine 0.6 Estimated Creat Clear 42.05 Estimated GFR 86 Glucose 80 Hemoglobin A1c Calcium 8.8 Total Bilirubin 0.8 AST 31 ALT 23 Alkaline Phosphatase 110 Total Creatine Kinase Total Protein 7.1 Albumin 3.6 Urine Color Urine Appearance Urine pH Ur Specific [place] Urine Protein Urine Glucose (UA) Urine Ketones Urine Blood Urine Nitrite Urine Bilirubin Urine Urobilinogen Ur Leukocyte Esterase Urine RBC Urine WBC Ur Squamous Epith Cells Urine Bacteria SARS-CoV-2 (PCR) Influenza Type A (PCR) Influenza Type B (PCR) RSV (PCR) Lab Acknowledgement Test Added
[2024-09-05] MEDS: POTASSIUM CHLORIDE 10 MEQ CAPSULE ER PO (09:31)
[2024-09-05] MEDS: DONEPEZIL 10 MG TABLET PO (09:32)
[2024-09-05] MEDS: oxyBUTYnin chloride 5 MG TAB.ER.24 PO (09:32)
[2024-09-05] MEDS: FLUOXETINE HCL 10 MG CAPSULE PO (09:32)
[2024-09-05] MEDS: DOXYCYCLINE HYCLATE 100 MG PO ×2 (09:32→20:24)
[2024-09-05] MEDS: hydroCHLOROthiazide 25 MG TABLET 50 MG PO (09:32)
[2024-09-05] MEDS: IRBESARTAN 150 MG TABLET PO ×2 (09:32→20:24)
[2024-09-05] MEDS: cefTRIAXone 1 GM in 0.9 % SODIUM CHLORIDE Mini-bag 100 ML IVPB (09:33)
[2024-09-05] MEDS: carvediloL 6.25 MG TABLET PO ×2 (09:33→20:25)
[2024-09-05] MEDS: SODIUM CHLORIDE 0.9 % (FLUSH) 10 ML SYRINGE 5 ML IVF ×2 (09:33→20:26)
[2024-09-05] MEDS: ACETAMINOPHEN 500 MG TABLET 1000 MG PO ×2 (13:39→20:22)
[2024-09-05] MEDS: LIDOCAINE 5% PATCH 1 PATCH TRANSDERMA (13:40)
--- NOTE | 2024-09-05 15:01 | PC.NURSE ---
End of Shift: Patient pleasant and cooperative, only oriented to self and occasionally place this shift. Patient reports pain in her right wrist and ribs this shift, managed with PRN medication and lidocaine patch, see MAR. 1A with walker and gait belt. Tolerating regular diet.
--- NOTE | 2024-09-05 19:45 | PC.NURSE ---
Nursing Care Hours: [id number] Pt calm and cooperative. SOB noted at rest and pt c/o pain to R ribs post pain med administration. Ice pack provided with no extra relief. Message sent to provider requesting stronger pain med option as non is available. pt tolerated dinner without issue.
[2024-09-05] MEDS: ENOXAPARIN 40 MG/0.4 ML INJ SUBCUT (20:25)
[2024-09-05] MEDS: QUETIAPINE 25 MG TABLET PO (20:25)
[2024-09-05] MEDS: INSULIN ASPART 100 UNIT/ML SUBCUT (21:13)
[2024-09-05] MEDS: INSULIN GLARGINE,HUM.REC.ANLOG 100 UNIT/ML INSULN.PEN 10 UNIT SUBCUT (21:13)
[2024-09-06] MEDS: ACETAMINOPHEN 500 MG TABLET 1000 MG PO ×2 (02:37→11:39)
[2024-09-06 02:53] VITALS: BP 158/100; PULSE 71; RESP 18; TEMP 36.6; O2SAT 92
--- NOTE | 2024-09-06 05:57 | PC.NURSE ---
End of shift [id number]: Pt oriented to self and . Cooperative with cares. A1 GB W, using the bathroom frequently. Incontinent/continent of the bladder. Mepilex to the sacrum CDI. Pt reported rib pain that was managed with repositioning, active ice, and PRN Tylenol. Lymphedema wraps removed during the night. Pt requiring 0.5 L NC during the night for sats >90%. Pt appears resting in bed with call light in reach.
[2024-09-06 06:54] LABS: HCO3 VBG 34 mmol/L (21-28); PCO2 VBG 55 mmHG (40-50); pH VBG 7.401 (7.32-7.43)
[2024-09-06 06:58] LABS: Basophils Absolute Auto 0.03 K/uL (0.00-0.30); Basophils Percent Auto 0.6 % (0.0-3.0); Eosinophils Absolute Auto 0.15 K/uL (0.00-0.50); Eosinophils Percent Auto 3.2 % (0.0-7.0); Hematocrit 40.8 % (33.0-51.0); Immature Granulocytes Abs Auto 0.01 K/uL (0.00-0.30); Immature Granulocytes Pct Auto 0.2 %; Lymphocytes Percent Auto 14.8 % (20-44); Mean Corpuscular HGB Conc 32 gm/dL (32-36); Mean Corpuscular Hemoglobin 31 pg (26-34); Mean Corpuscular Volume 98 fL (80-100); Monocytes Percent Auto 13.9 % (0.0-11.0); Neutrophils Absolute Auto 3.13 K/uL (1.7-7.0); Neutrophils Percent Auto 67.3 % (42.0-72.0); Platelet Count* 211 K/uL (140-440); RDW Coefficient of Variation % 15.3 % (11.5-15.5); Red Blood Count 4.15 m/uL (4.00-5.20); White Blood Count* 4.66 K/uL (4.50-11.00)
[2024-09-06 07:00] VITALS: PULSE 98; RESP 18; O2SAT 92
[2024-09-06 07:02] LABS: Slide Review Reflex No
[2024-09-06 07:13] LABS: Chloride* 98 mmol/L (96-114); Potassium* 3.5 mmol/L (3.6-5.1); Sodium* 139 mmol/L (135-149)
[2024-09-06 07:16] LABS: Anion Gap 7 mEq/L (7-15); Blood Urea Nitrogen* 14 mg/dL (7-30); Carbon Dioxide* 34 mmol/L (20-32); Creatinine* 0.6 mg/dL (0.5-1.5); Est. Creatinine Clearance* 42.05; Estimated Glomerular Filt Rate 86 ml/min
[2024-09-06 07:17] LABS: Glucose* 72 mg/dL (60-115)
[2024-09-06 07:20] VITALS: BP 136/110; PULSE 98; RESP 18; TEMP 36.9; O2SAT 92
[2024-09-06] MEDS: OXYCODONE 5 MG TABLET 2.5 MG PO (07:53)
[2024-09-06] MEDS: carvediloL 6.25 MG TABLET PO (09:00)
[2024-09-06] MEDS: hydroCHLOROthiazide 25 MG TABLET 50 MG PO (09:00)
[2024-09-06] MEDS: FLUOXETINE HCL 10 MG CAPSULE PO (09:00)
[2024-09-06] MEDS: SODIUM CHLORIDE 0.9 % (FLUSH) 10 ML SYRINGE 5 ML IVF ×2 (09:00→09:02)
[2024-09-06] MEDS: POTASSIUM CHLORIDE 10 MEQ CAPSULE ER PO (09:00)
[2024-09-06] MEDS: DOXYCYCLINE HYCLATE 100 MG PO (09:00)
[2024-09-06] MEDS: IRBESARTAN 150 MG TABLET PO (09:00)
[2024-09-06] MEDS: DONEPEZIL 10 MG TABLET PO (09:00)
[2024-09-06] MEDS: oxyBUTYnin chloride 5 MG TAB.ER.24 PO (09:00)
[2024-09-06] MEDS: cefTRIAXone 1 GM in 0.9 % SODIUM CHLORIDE Mini-bag 100 ML IVPB (09:38)
[2024-09-06 11:15] VITALS: BP 173/119; PULSE 77; RESP 18; O2SAT 90
[2024-09-06] MEDS: INSULIN ASPART 100 UNIT/ML SUBCUT (11:40)
[2024-09-06 11:43] VITALS: BP 153/91
--- NOTE | 2024-09-06 14:05 | PM.DS1 ---
DS: Providers Provider Date Seen: 09/06/24 Date of admission: 09/04/24 12:01 Primary care physician: Tim Cobos MD Admitting Clinician: Kim Beltran MD Consults: PT, OT, SW Attending Physician on discharge: Kim Beltran MD Date of Discharge: 09/06/24 DS: Diagnosis Discharge Diagnosis (1) UTI (urinary tract infection): Status: Acute Problem details: - positive UA on 09/04, culture + for pansensitive E Coli - completed 3 day course of Ceftriaxone (2) Acute hypoxic respiratory failure: Status: Acute Problem details: - O2 saturations as low as 81% in the ER - treated with supplemental oxygen, weaned to RA on 09/06/24 (3) Contusion of right eyebrow: Status: Acute (4) Bilateral pneumonia: Status: Acute Problem details: - noted on 09/04 imaging - supplemental oxygen for hypoxia, taper as tolerated - Ceftriaxone and Doxycycline (09/04), home with 5 more days of Doxycycline to complete antibiotic course (5) Closed rib fracture: Status: Acute Problem details: - nondisplaced fracture of 8th rib noted on CT 09/04 - Lidocaine patch, Tylenol, low dose Oxycodone for pain management (6) Afib: Status: Acute Problem details: - permanent, rate controlled on Coreg - not anticoagulated per chart review given history of falls, age, and comorbidities - Lovenox during hospitalization (7) Hypertension: Status: Acute Problem details: - currently has age-appropriate control on home medications: Irbesartan, Carvedilol, HCTZ + potassium replacement DS: Summary Hospital Course Hospital Course: Alyx was admitted to the hospital on 09/04 for acute hypoxic respiratory failure in the setting of PNA and recent mechanical fall with + rib fracture. She has a history of cognitive impairment; prior to admission had moved to [facility]. Treated with IV Ceftriaxone and oral Doxycycline, required low dose supplemental oxygen during stay, weaned to RA on 09/06. Also noted to have a + UA in ER and endorsed dysuria on admission; urine culture grew pansensitive E Coli, treated with 3 days of IV Ceftriaxone. Pain managed with Lidocaine patch, scheduled APAP, low dose Oxycodone. Comorbidities remained stable. Followed by therapies and no acute needs identified. Medically appropriate for d/c back to Memory Care on 09/06/24. Daughter updated by phone. Status at Discharge Functional status at discharge: uses cane/walker Overall status at discharge: patient is progressing back to baseline Time Spent with Patient Time attestation: Total time spent providing and/or coordinating discharge services: Time spent: Greater than 30 minutes Specific discharge activities: Medication reconciliation, multidisciplinary team discussion Exam Narrative: Exam Narrative: GEN: Sitting comfortably in bedside chair HEENT: Bruising over R eye is stable, + EOMIs bilaterally, no scleral icterus, no conjunctival hemorrhage CV: Irregularly irregular rhythm, + early systolic murmur heard best LSB R: No wheezing, breathing comfortably at rest, mild discomfort taking a big breath Ext: 3-4+ LE edema, thickened/hyperpigmented skin c/w known PVD Neuro: No focal deficits Psych: Cognitive impairment noted, no agitation, otherwise appropriate Const: Vital Signs, click to edit/add: Vital Signs - 24 hr 09/05/24 15:00 09/05/24 15:00 09/05/24 15:00 Temperature 98.5 F Pulse Rate [Pulse Oximeter] 87 87 Respiratory Rate 24 24 24 Blood Pressure [Ri ght Arm] 169/99 H Pulse Oximetry 93 93 Oxygen Delivery Me thod Nasal Cannula Nasal Cannula Oxygen Flow Rate 0.5 0.5 09/05/24 19:00 09/05/24 23:00 09/05/24 23:00 Temperature 98.5 F 97.9 F Pulse Rate [Pulse Oximeter] 67 69 Respiratory Rate 20 18 18 Blood Pressure [Ri ght Arm] 145/92 H 155/100 H Pulse Oximetry 94 92 92 Oxygen Delivery Me thod Room Air Nasal Cannula Nasal Cannula Oxygen Flow Rate 0.5 0.5 09/06/24 02:53 09/06/24 07:00 09/06/24 07:00 Temperature 97.8 F Pulse Rate [Pulse Oximeter] 71 98 Respiratory Rate 18 18 18 Blood Pressure [Ri ght Arm] 158/100 H Pulse Oximetry 92 92 Oxygen Delivery Me thod Nasal Cannula Nasal Cannula Oxygen Flow Rate 0.5 0.5 09/06/24 07:20 09/06/24 11:15 09/06/24 11:43 Temperature 98.5 F Pulse Rate [Pulse Oximeter] 98 77 Respiratory Rate 18 18 Blood Pressure [Ri ght Arm] 136/110 H 173/119 H 153/91 H Pulse Oximetry 92 90 Oxygen Delivery Me thod Nasal Cannula Room Air Oxygen Flow Rate 0.5 DS: Data Data Completed and Pending Completed studies during hospitalization: Procedures Introduction of Other Gas into Respiratory Tract, Via Natural or Artificial Opening (07/12/24) Labs on day of discharge: Labs from last 24 hours 09/06/24 06:35 WBC 4.66 RBC 4.15 Hgb 13.0 Hct 40.8 MCV 98 MCH 31 MCHC 32 RDW Coeff of Brock 15.3 Plt Count 211 Neut % (Auto) 67.3 Lymph % (Auto) 14.8 L [place] % (Auto) 13.9 H Eos % (Auto) 3.2 Baso % (Auto) 0.6 Neut # (Auto) 3.13 Lymph # (Auto) 0.70 L [place] # (Auto) 0.60 Eos # (Auto) 0.15 Baso # (Auto) 0.03 Abs Immat Gran (auto) 0.01 Imm/Tot Granulo (auto) 0.2 VBG pH 7.401 VBG pCO2 55 H VBG pO2 56.0 H VBG HCO3 34 H Sodium 139 Potassium 3.5 L Chloride 98 Carbon Dioxide 34 H Anion Gap 7 BUN 14 Creatinine 0.6 Estimated Creat Clear 42.05 Estimated GFR 86 Glucose 72 Calcium 9.0 Preliminary micro results at discharge 09/04/24 08:27 Blood Culture - Preliminary Blood NO GROWTH AFTER 48 HOURS 09/04/24 08:36 Blood Culture - Preliminary Blood NO GROWTH AFTER 48 HOURS Discharge Plan [facility] Date of Admission: 09/04/24 12:01 Attending Provider on Discharge: Kim Beltran Primary Care Provider: Tim Cobos Condition: Improved Anticipated Discharge Date/Time: 09/06/24 16:00 Discharge Medications: New sennosides-docusate sodium [Stool Softener-Laxative] 8.6-50 mg Tablet 1 tab PO DAILY PRNQty: 60 0RF oxycodone 5 mg Tablet 2.5 mg PO Q6H PRNQty: 20 0RF acetaminophen 500 mg Tablet 1,000 mg PO Q6H PRN (Reason: Pain) Qty: 90 0RF lidocaine 5 % Adhesive Patch,Medicated 1 patch transdermal Q24H Qty: 30 0RF doxycycline hyclate 100 mg Tablet 100 mg PO BID 5 Days Qty: 10 0RF Continued Trelegy Ellipta 200-62.5-25 mcg blister with device 1 inh inhalation Q24H Qty: 60 2RF Patient Comments: PATIENT WILL NEED FROM HOME cholecalciferol (vitamin D3) 25 mcg (1,000 unit) capsule 25 mcg PO DAILY calcium carbonate 500 mg calcium (1,250 mg) tablet,chewable 500 mg PO DAILY coenzyme Q10 300 mg capsule 300 mg PO DAILY albuterol sulfate 90 mcg/actuation HFA aerosol inhaler See Rx Instructions .ROUTE .COMPLEX PRN Dose Instruction: INHALE 2 PUFFS BY MOUTH EVERY 4 HOURS NEEDED FOR WHEEZING AND DIFFICULT BREATHING Rx Instructions: INHALE 2 PUFFS BY MOUTH EVERY 4 HOURS NEEDED FOR WHEEZING AND DIFFICULT BREATHING PRN; donepezil 10 mg tablet 10 mg PO DAILY irbesartan 150 mg tablet 150 mg PO BID quetiapine 25 mg tablet 25 mg PO HS oxybutynin chloride 10 mg tablet extended release 24hr 10 mg PO DAILY fluoxetine 10 mg capsule 10 mg PO DAILY potassium chloride 10 mEq tablet,ER particles/crystals 10 meq PO DAILY insulin glargine [Lantus Solostar U-100 Insulin] 100 unit/mL (3 mL) insulin pen 10 unit subcut HS Rx Instructions: 10 units once nightly carvedilol 6.25 mg Tablet 6.25 mg PO BID Qty: 60 0RF hydrochlorothiazide 50 mg tablet 50 mg PO DAILY oxybutynin chloride 5 mg tablet extended release 24hr 5 mg PO DAILY hydrochlorothiazide 25 mg tablet 25 mg PO QAM Qty: 90 3RF (DME) Contour Next Test Strips Strip See Rx Instructions .Route Qty: 100 3RF Rx Instructions: Use to test blood glucose daily Discontinued acetaminophen 500 mg capsule 1,000 mg PO Q4-6H MDD 3000 mg PRN (Reason: pain) Qty: 30 3RF Discharge Orders: Discharge Order (Routine); Ordered 09/06/24 Ordered By: Kim Beltran Additional Instructions: For pain from broken rib: - TYLENOL 1000mg every 6H - Oxycodone 2.5mg every 6-8H prn (good idea to also take SENNA while on this to prevent constipation) - Lidocaine patch over chest wall daily as needed For pneumonia: - FIVE more days of antibiotic (Doxycyline twice/day) Activity Level: Activity as Tolerated Discharge Diet: Diabetic Follow Up Appointments: Tim Cobos MD [Primary Care Provider, Family Practice] [facility] Admit to: [facility]isted [facility] Discharge Potential: Poor Length of Stay: >90 days Code Status: DNR/DNI Oxygen: No Urinary Catheter: No Lab Orders: CBC and BMP in 7-10 days Orders are good >30 days: Yes Signature: Kim Beltran MD
--- NOTE | 2024-09-06 14:29 | PC.SOCIAL ---
Addendum entered and electronically signed by Joy Dumont LCSW 09/06/24 15:36: NEHA received call from Suni inquiring about discharge. NEHA provided update. Suni asked for d/c orders and summary to be faxed to her at [phone]. NEHA faxed these to Suni. Original Note: Discharge planning: SW called patient's daughter to discuss discharge today. Daughter reports that she will be flying back from [place] today and will call around to see if any of her friends can transport her back to her facility. Provider spoke with patient's daughter and informed SW that daughter will pick her up after she lands. NEHA called [facility] and spoke with the front end loader operator and asked to speak with the admissions or nursing staff. NEHA was forwarded to nursing and lvm requesting a call back. NEHA received VM from Blanche, kennel staff member, who left call back number for herself [phone] and Suni, director of clinical care, . NEHA called Blanche and updated on patient's rib fracture. Blanche states that she believes there should be no concerns with patient returning, but Suni needs to give the final call. NEHA called Suni and lvm requesting a call back. NEHA called Suni two more times and lvm. NEHA called Mel whose number was left in Suni's voicemail and left her a voicemail. NEHA called Blanche back and left her a voicemail again too. NEHA updated by management expert that they spoke with the facility and they can take patient back today. NEHA called patient's daughter and lvm stating that she still hadn't heard back from the facility. NEHA received call from patient's daughter stating that she landed and will be here around 1530 to pickler helper her mom. NEHA to assist if other needs arise.
[2024-09-06] MEDS: LIDOCAINE 5% PATCH 1 PATCH TRANSDERMA (14:38)
--- NOTE | 2024-09-06 16:48 | PC.NURSE ---
Pt doing well today. VSS. Pain controlled with prn medications, ice and rest. Pt ambulating well in room with stand by assist and walker. Pt discharged back to [facility] via daughter at approximately 1500. Nurse to nurse report was given to ELIZABETH Mancia at [phone]
== END 2024-09-06 15:30 | DRG 193 ==
LOC: ED 08:13 → MEDSURG 10:45
PROVIDERS: Admitting Provider Family Medicine; Emergency Provider Emergency Medicine; PCP Family Medicine; Visit Provider Family Medicine
DX: J18.9 Pneumonia, unspecified organism (principal); J96.01 Acute respiratory failure with hypoxia; S22.31XA Fracture of one rib, right side, initial encounter for closed fracture; N39.0 Urinary tract infection, site not specified; I50.30 Unspecified diastolic (congestive) heart failure; I48.21 Permanent atrial fibrillation; B96.20 Unspecified Escherichia coli [E. coli] as the cause of diseases classified elsewhere; S00.11XA Contusion of right eyelid and periocular area, initial encounter; M25.531 Pain in right wrist; W01.0XXA Fall on same level from slipping, tripping and stumbling without subsequent striking against object, initial encounter; Y92.129 Unspecified place in nursing home as the place of occurrence of the external cause; F03.90 Unspecified dementia, unspecified severity, without behavioral disturbance, psychotic disturbance, mood disturbance, and anxiety; G47.33 Obstructive sleep apnea (adult) (pediatric); E11.9 Type 2 diabetes mellitus without complications; Z79.4 Long term (current) use of insulin; I11.0 Hypertensive heart disease with heart failure; I87.2 Venous insufficiency (chronic) (peripheral); I25.10 Atherosclerotic heart disease of native coronary artery without angina pectoris; Z86.73 Personal history of transient ischemic attack (TIA), and cerebral infarction without residual deficits; E78.5 Hyperlipidemia, unspecified; Z86.711 Personal history of pulmonary embolism; F32.A Depression, unspecified
CPT/HCPCS: 36415; 70450; 71260; 72125; 73110; 74177; 80048; 80053; 81001; 82550; 82565; 82803; 82962; 83036; 83605; 85025; 85610; 87040; 87086; 87631; 97110; 97116; 97161; 97165; 97535; 99284; 99285; A9270; J0696; J1650; J1815; J3010; J7030; Q9967

== ENCOUNTER 2024-09-21 17:45 | Emergency (ER) | payer MEDICARE, SELFPAY ==
--- OUTSIDE RECORDS SUMMARY | 2022-08-26 13:00 | XMS_ITS | Encounter Summary ---
Author Organization [place] Address [address] [facility]. [address] Care Team Providers Care Plug Paster Name Role Phone XenacarlyZahira eduardo MD Unavailable + Dixon Panchal MD Unavailable [facility] Unavailable Darlene Mendoza MD Primary Care Provider [phone] Reason for Visit * Reason Comments Hospital F/U Encounter Details Date Type Department Care Team (Latest Contact Info) Description 08/26/2022 1:00 PM CDT Office Visit [facility] Neurosurgery Clinic [address] [place] [phone] Eleanor Humphreys PA-C [facility] [address] [place] [address] Fall, initial encounter (Primary Dx); Closed wedge compression fracture of L1 vertebra with routine healing, subsequent encounter; Closed compression fracture of L2 lumbar vertebra, sequela Social History Tobacco Use Types Packs/Day Years Used Date Smoking Tobacco: Former Cigarettes Q uit: 11/12/1991 Smokeless Tobacco: Never Alcohol Use Standard Drinks/Week Comments No 0 (1 standard drink = 0.6 oz pur e alcohol) PHQ-2 Answer Date Recorded PHQ-2 Score 0 08/26/2022 Comments No Sex and Gender Information Value Date Recorded Sex Assigned at Not on file Legal Sex Female 3:23 AM [employer] Gender Identity Not on file Sexual Orientation Not on file COVID-19 Exposure Response Date Recorded In the last 10 days, have yo u been in contact with someone who was confirmed or suspected to have Coronavirus/COVID-19? No / Unsure 08/26/2022 12:27 PM CDT documented as of this encounter Last Filed Vital Signs Vital Sign Reading Time Taken Comments Blood Pressure 132/71 08/26/2022 12:59 PM CDT Pulse 69 08/26/2022 12:59 PM CDT Temperature - - Respiratory Rate - - Oxygen Saturation 93% 08/26/2022 12:59 PM CDT Inhaled Oxygen Concentration - - Weight - - Height - - Body Mass Index - - documented in this encounter Progress Notes * Eleanor Humphreys PA-C - 08/26/2022 1:00 PM CDT NEUROSURGERY CLINIC PROGRESS NOTE DATE OF VISIT: 08/26/2022 HPI: Alyx Sarmiento is a pleasant 87 year old female who presents to the clinic today for a 6-week follow-up visit for L1 and L2 fractures. Patient admitted on 07/14/2022 after a fall and found to have multiple rib fractures and L1 and L2 fractures. She was not placed in a brace as she was not having pointtenderness or radicular symptoms. Today, the patient reports she feels great. She denies new or worsening back pain, radicular symptoms, paresthesias, weakness, bowel/bladder changes, falls since discharge. She states she did not even know she had fractures until our team updated her. She has no concerns at this time. Current Outpatient Medications Medication ? acetaminophen (TYLENOL) 500 MG tablet ? albuterol (PROAIR HFA) 108 (90 BASE) MCG/ACT Inhaler ? aspirin (ASA) 81 MG EC tablet ? Coenzyme Q10 300 MG CAPS ? cyanocolbalamin (VITAMIN B-12) 500 MCG tablet ? donepezil (ARICEPT) 5 MG tablet ? FLUoxetine (PROZAC) 10 MG capsule ? fluticasone-salmeterol (ADVAIR) 500-50 MCG/ACT inhaler ? gabapentin (NEURONTIN) 100 MG capsule ? hydrochlorothiazide (HYDRODIURIL) 25 MG tablet ? insulin glargine (LANTUS PEN) 100 UNIT/ML pen ? irbesartan (AVAPRO) 300 MG tablet ? Lidocaine (LIDOCARE) 4 % Patch ? tiotropium (SPIRIVA) 18 MCG inhaled capsule No current facility-administered medications for this visit. Allergies Allergen Reactions ? Glucophage [Metformin] Other (See Comments) PN: H/A Put her in the hospital ? Insulin Detemir Hives ? Levofloxacin Other reaction(s): Bruising, Moderate, Active ? Metoprolol Other reaction(s): Respiratory Arrest PN: RESPIRATORY ARREST ? Amlodipine PN: rash ? Azithromycin ? Esterified Estrogens headaches ? Exenatide ? Lasix [Furosemide] ? Lisinopril ? Losartan Other reaction(s): Chest Pain PN: SOB ? Mercury ? Metoprolol Succinate fatigue, diaphoresis ? Naproxen fingernail color changes ? Naproxen Sodium cough ? Penicillins ? Pioglitazone ? Simvastatin fatigue ? Sitagliptin ? Clopidogrel Swelling ? Insulin Other reaction(s): Severe, Active Past Medical History: Diagnosis Date ? Breast cancer ? Carpal tunnel syndrome ? Cerebrovascular accident ? CHF (congestive heart failure) ? Cognitive impairment ? COPD (chronic obstructive pulmonary disease) ? Coronary artery disease ? Diverticulitis ? Essential hypertension, benign ? Hyperlipidemia ? Melanoma of skin ? Osteoarthrosis ? Type 2 diabetes mellitus Review Of Systems ROS: 10 point ROS neg other than the symptoms noted above in the HPI. OBJECTIVE: BP 132/71 Pulse 69 SpO2 93% Imaging: Narrative & Impression LUMBAR SPINE TWO TO THREE VIEWS 08/26/2022 12:42 PM ? INDICATION: L1 spinal fracture. Fall, initial encounter. ? COMPARISON: Lumbar spine MRI 07/15/2022 ? IMPRESSION: Moderate to severe L1 compression fracture deformity unchanged versus prior MRI. The lumbar vertebral bodies demonstrate normal height. Low-grade anterolisthesis of L3 is unchanged. Severe interspace narrowing at L4-L5. Mild interspace narrowing elsewhere. Moderate lower lumbar spine facet arthropathy. Radiographic Findings: Full radiological report in chart. I personally reviewed the images with thepatient today. Exam: Patient appears comfortable and in no apparent distress. Moving all extremities. Gait is non-antalgic. CN II-XII grossly intact, alert and appropriate with conversation and following commands Bilateral lower extremities 5/5 strength including plantar and dorsiflexion. Normal sensation throughout bilaterally. No TTP midline lumbar spinous processes or paraspinous muscles ASSESSMENT: 1. Fall, initial encounter 2. Closed wedge compression fracture of L1 vertebra with routine healing, subsequent encounter 3. Closed compression fracture of L2 lumbar vertebra, sequela PLAN: Alyx Sarmiento is a pleasant 87 year old female who presents to the clinic today for a 6-week follow-up visit for L1 and L2 fractures. Patient admitted on 07/14/2022 after a fall and found to have multiple rib fractures and L1 and L2 fractures. She was not placed in a brace as she was not having pointtenderness or radicular symptoms. Today, the patient reports she feels great. She denies new or worsening back pain, radicular symptoms, paresthesias, weakness, bowel/bladder changes, falls since discharge. She states she did not even know she had fractures until our team updated her. She has no concerns at this time. Imaging was reviewed today and all questions were answered. OK to gradually increase activities as she tolerates. She may follow up PRN basis with our clinic. Recommend continued management of osteoporosis with her PCP. The patient gave verbal understanding and is in agreement with the above plan. She will call or return to the clinic for any worsening or changes in symptoms. Respectfully, Eleanor Humphreys PA-C [facility] Neurosurgery [address] [address] documented in this encounter Nursing Notes * Cecy Cardenas - 08/26/2022 1:00 PM CDT Alyx Sarmiento is a 87 year old female who presents for: Chief Complaint Patient presents with ? Hospital F/U Vitals: Vitals: 08/26/22 1259 BP: 132/71 Pulse: 69 SpO2: 93% BMI: Estimated body mass index is 30.85 kg/m? as calculated from the following: Height as of 07/17/22: 5' 7 (1.702 m). Weight as of 07/17/22: 197 lb (89.4 kg). Pain Score: No Pain (0) Cecy Cardenas documented in this encounter Plan of Treatment Not on file documented as of this encounter Visit Diagnoses Diagnosis Fall, initial encounter- Primary Closed wedge compression fracture of L1 vertebra with routine healing, subsequent encounter Closed compression fracture of L2 lumbar vertebra, sequela documented in this encounter Care Teams Plug Paster Relationship Specialty Start Date End Date Darlene Mendoza MD [facility] [address] [place] [address] PCP - General Family Medicine 07/19/22 Zahira Feldman MD [address] [place] [address] Ophthalmology 10/13/17 Dixon Panchal MD [address] [place] [address] Assigned PCP 02/09/22 [facility], [address] [id number] 07/17/22 Krysta Gilliam [facility] OLAMIDE SHANNON 07/15/22 documented as of this encounter
--- OUTSIDE RECORDS SUMMARY | 2023-12-09 21:54 | XMS_ITS | Encounter Summary ---
Author Organization [facility] Address [address] [place] [id number] Care Team Providers Care Clam Picker Name Role Phone Zahira Feldman MD Unavailable + Dixon Panchal MD Unavailable [facility] Unavailable Darlene Gamez MD Primary Care Provider [phone] Eleanor Humphreys PA-C Unavailable [phone] Reason for Referral * Home Health Therapies & Aides (Routine: Next available opening) - Pending Review Specialty Diagnoses / Procedures Referred By Contac t Referred To Contact Diagnoses Closed fracture of multiple ribs, unspecified laterality, sequela Fall, initial encounter Diallo Holley, DO [address] [place] [address] Phone: tel: fax: Referral ID Status Reason Start Date Expiration Date V isits Requested Visits Authorized [id number] Pending Review 12/11/2023 12/10/2024 1 1 Question Answer Reason for Referral: Physical Therapy Physical Therapy Eval and Treat for: Home Safety Assessment, Range of Motion, Therapeutic Exercise, Transfer Training Additional Services Needed: Occupational Therapy Occupational Therapy Eval and Treat for: ADLs, Adaptive Therapy, Home Safety, Bathing Is the patient homebound? Yes Homebound Status (describe the functional limitations that support this patient is confined to his/her home. Medicaid recipients are not required to be homebound.): Requires assistance of another person or specialized equipment is needed I attest that I saw or will see the patient on this date: 12/11/2023 Provider to follow patient DARLENE GAMEZ [[id number]] Comments Your provider has ordered home health services. If you have not been contacted within 2 days of your discharge please call the selected Home Care agency listed on your Discharge document. If a Home Care agency is NOT listed, please call [phone]. Reason for Visit * Reason Comments Fall Rib Pain * Auth/Cert (Routine) Specialty Diagnoses / Procedures Referred By Chika aburto Referred To Contact Orthopedics Diagnoses Shortness of breath Acute respiratory failure with hypoxia (H) Closed fracture of multiple ribs of left side, initial encounter Closed fracture of multiple ribs of left side, initial encounter Shortness of breath [facility] [address] [place] [address] Phone: tel: fax: Referral ID Status Reason Start Date Expiration Date Visits Re quested Visits Authorized [id number] 1 1 Encounter Details Date Type Department Care Team (Latest Contact Info) Description 12/09/2023 9:54 PM CDT - 12/11/2023 4:32 PM CDT Hospital Encounter [facility] [address] [place] [address] Austin Reardon MD Eklund, Derek William, MD [address] [address] Closed fracture of multiple ribs, unspecified laterality, sequela (Primary Dx); Closed fracture of multiple ribs of left side, initial encounter; Shortness of breath; Acute respiratory failure with hypoxia (H); Fall, initial encounter Discharge Disposition: Home-Health Care Svc Social History Tobacco Use Types Packs/Day Years Used Date Smoking Tobacco: Former Cigarettes Q uit: 11/12/1991 Smokeless Tobacco: Never Alcohol Use Standard Drinks/Week Comments No 0 (1 standard drink = 0.6 oz pur e alcohol) PHQ-2 Answer Date Recorded PHQ-2 Score 0 08/26/2022 Adolescent Education Answer Date Record ed Getting School Help Needed Not on file 12/22 Food Insecurity Answer Date Recorded Within the past 12 months, d id you worry that your food would run out before you got money to buy more? No 12/10/2023 Within the past 12 months, d id the food you bought just not last and you didn?t have money to get more? No 12/10/2023 Housing Stability Answer Date Recorded Do you have housing? (Leigh Ann g is defined as stable permanent housing and does not include staying ouside in a car, in a tent, in an abandoned building, in an overnight alf, or couch-surfing.) Yes 12/10/2023 Are you worried about losing your housing? No 12/10/2023 Financial Resource Strain Answer Date R ecorded Within the past 12 months, h ave you or your family members you live with been unable to get utilities (heat, electricity) when it was really needed? No 12/10/2023 Transportation Needs Answer Date Record ed Within the past 12 months, h as lack of transportation kept you from medical appointments, getting your medicines, non-medical meetings or appointments, work, or from getting things that you need? Patient unable to answer 12/10/2023 Interpersonal Safety Answer Date Record ed Do you feel physically and e motionally safe where you currently live? Yes 12/10/2023 Within the past 12 months, h ave you been hit, slapped, kicked or otherwise physically hurt by someone? No 12/10/2023 Within the past 12 months, h ave you been humiliated or emotionally abused in other ways by your partner or ex-partner? No 12/10/2023 Comments No Sex and Gender Information Value Date Recorded Sex Assigned at Not on file Legal Sex Female 3:23 AM DIRECTOR FAMILY Gender Identity Not on file Sexual Orientation Not on file documented as of this encounter Last Filed Vital Signs Vital Sign Reading Time Taken Comments Blood Pressure 117/64 12/11/2023 12:50 PM CDT Pulse 85 12/11/2023 12:50 PM CDT Temperature 36.4 ?C (97.5 ?F) 12/11/2023 12:50 PM CDT Respiratory Rate 17 12/11/2023 12:50 PM CDT Oxygen Saturation 91% 12/11/2023 12:50 PM CDT Inhaled Oxygen Concentration - - Weight 142.4 kg (314 lb) 12/09/2023 10:00 PM CDT Height 170.2 cm (5' 7) 12/09/2023 10:00 PM CDT Body Mass Index 49.18 12/09/2023 10:00 PM CDT documented in this encounter Discharge Summaries * Diallo Holley DO - 12/11/2023 4:32 PM CDT Hospitalist Discharge Summary [facility] Alyx Sarmiento Date of : 1935 Age: [age] year old Date of Admission: 12/09/2023 Date of Discharge: 12/11/2023 4:32 PM Admitting Physician: Ky Saldana MD Discharge Physician: Diallo Holley DO Discharging Service: Hospitalist Primary Provider: Darlene Gamez Discharge Diagnosis: Mechanical Fall Acute L Posterior Ribs 10-12 Fractures Acute Hypoxic Respiratory Failure - Appreciate Trauma Surgery recommendations - Encourage incentive spirometry - Wean O2 as able - PT/OT - recommending home with home PT/OT - Pain control prn - minimize narcotics Dementia Hx of CVA - Pt lives at [facility] - Continue donepezil and seroquel Chronic Medical Problems: Hypertension Atrial Fibrillation Type 2 Diabetes Mellitus COPD Chronic HFpEF CAMILO Morbid Obesity - BMI 49.1 Discharge Disposition: Discharged to home Hospital Course: Alyx Sarmiento is a 88 year old female with a history of dementia, history of CVA, atrial fibrillation on aspirin 81 mg daily, 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 In the emergency department, the patient was found to have a blood pressure of 149/112, heart rate 96, temperature 99 ?F, respiratory rate 22, SpO2 83% on room air that improved to 92% with 2 L nasal cannula. Initial lab work showed bicarb 30, BUN/creatinine 15.4/0.91, glucose 176, A1c 6.7, CBC within normal limits. CT chest/abdomen/pelvis showed nondisplaced acute rib fractures of the left 10th through 12th ribs without evidence of pneumothorax. Trauma surgery was consulted to see the patient. Physical therapy and Occupational Therapy were also consulted to see the patient. Physical therapy recommended home with home PT/OT. The patient's daughter was agreeable. Oxygen was slowly weaned and a home o xygen evaluation was completed on 12/11/2023. On 12/10/2023, the patient was discharged back to her independent living facility with home PT/OT. The patient was seen, examined, and counseled on this day. The hospitalization and plan of care wasreviewed with the patient extensively. All questions were addressed and the patient agreed to follow-up as noted above. Allergies: Allergies Allergen Reactions Glucophage [Metformin] Other (See Comments) PN: H/A Put her in the hospital Insulin Detemir Hives Levofloxacin Other reaction(s): Bruising, Moderate, Active Metoprolol Other reaction(s): Respiratory Arrest PN: RESPIRATORY ARREST Amlodipine PN: rash Azithromycin Esterified Estrogens headaches Exenatide Lasix [Furosemide] Lisinopril Losartan Other reaction(s): Chest Pain PN: SOB Mercury Metoprolol Succinate fatigue, diaphoresis Naproxen fingernail color changes Naproxen Sodium cough Penicillins Pioglitazone Simvastatin fatigue Sitagliptin Clopidogrel Swelling Insulin Other reaction(s): Severe, Active Discharge Medications: Discharge Medication List as of 12/11/2023 4:06 PM START taking these medications Details gabapentin (NEURONTIN) 100 MG capsule Take 1 capsule (100 mg) by mouth 3 times daily for 5 days., Disp-15 capsule, R-0, E-Prescribe CONTINUE these medications which have NOT CHANGED Details acetaminophen (TYLENOL) 500 MG tablet Take 1,000 mg by mouth every 8 hours as needed for mild pain., Historical calcium carbonate (OS-OLAF) 500 MG tablet Take 1 tablet by mouth daily., Historical cholecalciferol (VITAMIN D3) 25 mcg (1000 units) capsule Take 1 capsule by mouth daily., Historical Coenzyme Q10 300 MG CAPS Take 1 tablet by mouth daily, Historical cyanocolbalamin (VITAMIN B-12) 500 MCG tablet Take 500 mcg by mouth daily, Historical donepezil (ARICEPT) 10 MG tablet Take 10 mg by mouth at bedtime., Historical Elemental iron 65 mg Vitamin C 125 mg (VITRON C) 65-125 MG TABS tablet Take 1 tablet by mouth everyother day., Historical FLUoxetine (PROZAC) 10 MG capsule Take 10 mg by mouth daily, Historical hydrochlorothiazide (HYDRODIURIL) 25 MG tablet Take 25 mg by mouth daily., Historical insulin glargine (LANTUS PEN) 100 UNIT/ML pen Inject 10 Units Subcutaneous At Bedtime, Disp-15 mL, No Print OutIf Lantus is not covered by insurance, may substitute Basaglar or Semglee or other insulin glargine product per insurance preference at same dose and frequency. irbesartan (AVAPRO) 150 MG tablet Take 150 mg by mouth 2 times daily., Historical oxyBUTYnin ER (DITROPAN XL) 10 MG 24 hr tablet Take 10 mg by mouth daily., Historical QUEtiapine (SEROQUEL) 25 MG tablet Take 25 mg by mouth at bedtime., Historical TRELEGY ELLIPTA 200-62.5-25 MCG/ACT oral inhaler Inhale 1 puff into the lungs daily., JENELLE, Historical STOP taking these medications albuterol (PROAIR HFA) 108 (90 BASE) MCG/ACT Inhaler Comments: Reason for Stopping: Condition on Discharge: Discharge condition: Fair Discharge vitals: Blood pressure 117/64, pulse 85, temperature 97.5 ?F (36.4 ?C), temperaturesource Temporal, resp. rate 17, height 1.702 m (5' 7), weight 142.4 kg (314 lb), SpO2 91%. Code status on discharge: DNR / DNI BASIC PHYSICAL EXAMINATION: GENERAL: No apparent distress. CARDIOVASCULAR: Regular rate and rhythm without murmurs. PULMONARY: Clear to auscultation bilaterally. GASTROINTESTINAL: Abdomen soft, non-tender. EXTREMITIES: No edema, pulses intact. NEUROLOGIC: No focal deficits. History of Illness: See detailed admission note for full details. Procedures excluding imaging which is summarized below: Please see details in the electronic medical record. Consultations: SURGERY GENERAL IP CONSULT PHYSICAL THERAPY ADULT IP CONSULT NUTRITION SERVICES ADULT IP CONSULT CARE MANAGEMENT / SOCIAL WORK IP CONSULT OCCUPATIONAL THERAPY ADULT IP CONSULT Significant Results: Results for orders placed or performed during the hospital encounter of 12/09/23 CT Chest/Abdomen/Pelvis w Contrast Narrative EXAM: CT CHEST, ABDOMEN AND PELVIS WITH CONTRAST LOCATION: [facility] DATE/TIME: 12/09/2023 11:27 PM CDT INDICATION: Fall. Left-sided pain and shortness of breath. COMPARISON: 07/14/2022 - CT chest. 04/07/2020 - CT chest, abdomen and pelvis. TECHNIQUE: CT scan of the chest, abdomen, and pelvis was performed following injection of IV contrast. Multiplanar reformats were obtained. Dose reduction techniques were used. CONTRAST: 100 mL Isovue-370. FINDINGS: LUNGS AND PLEURA: A few curvilinear opacities in the lower lungs bilaterally, likely representing atelectasis. Small calcified granuloma in the left lung base. No pneumothorax. MEDIASTINUM/AXILLAE: Atherosclerotic calcification in the aorta. Mild cardiomegaly. Calcification in the region of the aortic and mitral valves. CORONARY ARTERY CALCIFICATION: Present. HEPATOBILIARY: Mild diffuse fatty infiltration of the liver. The gallbladder is not visualized. SPLEEN: A few tiny calcified granulomas in the spleen. PANCREAS: Unremarkable. ADRENAL GLANDS: 2.6 x 2.1 cm right adrenal nodule and 2.4 x 1.3 cm left adrenal nodule. These were both present on 04/07/2020 and therefore most likely represent adenomas. KIDNEYS/BLADDER: No suspicious renal lesions. BOWEL: Several colonic diverticula are present without evidence of diverticulitis. The appendix is not visualized. LYMPH NODES: Unremarkable. PELVIC ORGANS: No acute findings. MUSCULOSKELETAL: Nondisplaced acute fractures of the posterior aspects of the left 10th through 12th ribs. Bilateral shoulder arthroplasties. Old severe compression deformity of the L1 vertebral body. OTHER: None. Impression IMPRESSION: 1. Nondisplaced acute fractures of the posterior aspects of the left 10th through 12th ribs. No pneumothorax. 2. No other evidence of acute trauma in the chest, abdomen or pelvis. XR Chest Port 1 View Narrative XR CHEST PORT 1 VIEW 12/10/2023 9:06 AM HISTORY: Trauma Patient with Rib Fracture(s) COMPARISON: CT 12/09/2023. Impression IMPRESSION: Stable enlargement of the cardiomediastinal silhouette. Left basilar atelectasis with questionable small left pleural effusion. No measurable pneumothorax is visualized. Known left rib fractures are better seen on recent CT. Bilateral shoulder arthroplasties are partially visualized. EUGENE GAYLE MD SYSTEM ID: [id number] Transthoracic Echocardiogram Results: No results found for this or any previous visit (from the past 4320 hour(s)). Pending Results: Unresulted Labs Ordered in the Past 30 Days of this Admission No orders found from 11/09/2023 to 12/10/2023. Discharge Instructions and Follow-Up: Discharge instructions and follow-up: Discharge Procedure Orders Home Care Referral Referral Priority: Routine: Next available opening Referral Type: Home Health Therapies & Aides Number of Visits Requested: 1 Reason for your hospital stay Order Comments: Left Sided Rib Fracture 12-19, Hypoxia Activity Order Comments: Your activity upon discharge: activity as tolerated Order Specific Question Answer Comments Is discharge order? Yes Follow-up and recommended labs and tests Order Comments: Follow up with primary care provider, Darlene Gamez, within 7 days for hospital follow- up. No follow up labs or test are needed. Continue using your incentive spirometer at home at least 5 times daily. Incentive Spirometry Order Comments: Continue to use incentive spirometer 5 times a day Until return to normal activity Oxygen Adult/Peds Order Comments: Oxygen Documentation I certify that this patient, Alyx Sarmiento has been under my care (or a nurse practitioner or physican's glass ribbon machine operator assistant working with me). This is the [id number] encounter for oxygen medical necessity. At the time of this encounter, I have reviewed the qualifying testing and have determined that supplemental oxygen is reasonable and necessary and is expected to improve the patient's condition in a home setting. Patient has continued oxygen desaturation due to Acute Respiratory Failure J96.01. If portability is ordered, is the patient mobile within the home? yes Was this visit performed as a telehealth visit: No Order Specific Question Answer Comments Medical Equipment (DME) Supplier: [employer] [facility] [employer] PATIENT INSTRUCTIONS: If you did not receive this ordered item today, please contact [employer] for availability ([place] Locations: [phone], [place]: [phone]). Start Date: 12/11/2023 Type: New/Recertification Oxygen Consult Reqt: Call [employer] [facility] [employer] before patient leaves at [phone] Did the patient have SpO2 (sat) testing (only needed for new oxgyen or liter flow changes)? Yes Length of Need: Lifetime Frequency of Use: With Activity Mode of Delivery - With Activity Nasal Cannula Liter Flow - With Activity (LPM): 3 Need for Portable Oxygen Equipment: Yes Evaluate for Conserving Device: Yes Maintain Sats >= 90% The face to face evaluation was performed on: 12/11/2023 Peak Flow Meter: Yes Diet Order Comments: Follow this diet upon discharge: Current Diet:Orders Placed This Encounter Combination Diet Regular Diet Adult Order Specific Question Answer Comments Is discharge order? Yes Total time spent in face to face contact with the patient and coordinating discharge was: 35 Minutes Diallo Holley DO [facility] [place] [address] 12/12/2023 documented in this encounter Medications at Time of Discharge acetaminophen (TYLENOL) 500 MG tablet Take 1,000 mg by mouth every 8 hours as needed for mild pain. calcium carbonate (OS-OLAF) 500 MG tablet Take 1 tablet by mouth daily. cholecalciferol (VITAMIN D3) 25 mcg (1000 units) capsule Take 1 capsule by mouth daily. Coenzyme Q10 300 MG CAPS Take 1 tablet by mouth daily cyanocolbalamin (VITAMIN B-12) 500 MCG tablet Take 500 mcg by mouth daily donepezil (ARICEPT) 10 MG tablet Take 10 mg by mouth at bedtime. Elemental iron 65 mg Vitamin C 125 mg (VITRON C) 65-125 MG TABS tablet Take 1 tablet by mouth every other day. FLUoxetine (PROZAC) 10 MG capsule Take 10 mg by mouth daily gabapentin (NEURONTIN) 100 MG capsuleIndication s:Closed fracture of multiple ribs, unspecified laterality, sequela Take 1 capsule (100 mg) by mouth 3 times daily for 5 days. 15 capsule 12/11/2023 hydrochlorothiazi de (HYDRODIURIL) 25 MG tablet Take 25 mg by mouth daily. insulin glargine (LANTUS PEN) 100 UNIT/ML penIndications:Ty pe 2 diabetes mellitus without complication, with long-term current use of insulin (H) Inject 10 Units Subcutaneous At Bedtime 15 mL 07/16/2022 irbesartan (AVAPRO) 150 MG tablet Take 150 mg by mouth 2 times daily. oxyBUTYnin ER (DITROPAN XL) 10 MG 24 hr tablet Take 10 mg by mouth daily. QUEtiapine (SEROQUEL) 25 MG tablet Take 25 mg by mouth at bedtime. 11/13/2022 TREANA M ELLIPTA 200-62.5-25 MCG/ACT oral inhaler Inhale 1 puff into the lungs daily. documented as of this encounter Progress Notes * Mireya Lester RN - 12/11/2023 1:50 PM CDT Patient has been assessed for Home Oxygen needs. Oxygen readings: * RA - at rest Pulse oximetry SPO2 92% * RA - during activity/with exercise SPO2 83 % * O2 at 2 liters/minute (at rest) ...SPO2 95 % * O2 at 2 liters/minute (during activity/with exercise) ...SPO2 85 % * Damaris Valdez RN - 12/11/2023 1:33 PM CDT Care Management Discharge Note Discharge Date: 12/11/2023 Discharge Disposition: Assisted Living Discharge Services: home PT OT Discharge DME: none Discharge Transportation: family Private pay costs discussed: Not applicable Does the patient's insurance plan have a 3 day qualifying hospital stay waiver? No Education Provided on the Discharge Plan: yes Persons Notified of Discharge Plans: patient, [facility] Patient/Family in Agreement with the Plan: yes Handoff Referral Completed: No, handoff not indicated or clinically appropriate Additional Information: Patient discharging back to her assisted living today. CM did speak with the DON at facility earlier today and reviewed the PT note and patient current mobility level and she stated they can meet herlevel of assist. They stated patient gets home PT and OT throught [facility] at facility. Discharge orders faxed to [facility] and also to [facility]. Called and left voicemail with nurse at [facility] to update that patient is discharging and that orders are faxed. Spoke with intake at [facility] to update that orders faxed for them to resume seeing patient for PT and OT. Updatd patient's daughter of discharge. They will transport patient around 1430. Updated care team. 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 In the emergency department, the patient was found to have a blood pressure of 149/112, heartrate 96, temperature 99 ?F, respiratory rate 22, SpO2 83% on room air that improved to 92% with 2 L nasal cannula. Initial lab work showed bicarb 30, BUN/creatinine 15.4/0.91, glucose 176, A1c 6.7, CBC within normal limits. CT chest/abdomen/pelvis showed nondisplaced acute rib fractures of the left 10th through 12th ribs without evidence of pneumothorax. Trauma surgery was consulted to see thepatient. Physical therapy and Occupational Therapy were also consulted to see the patient. Physicaltherapy recommended home with home PT/OT. The patient's daughter was agreeable. Oxygen was slowly weaned and a home oxygen evaluation was completed on 12/11/2023. On 12/10/2023, the patient was discharged back to her independent living facility with home PT/OT. TODAY'S PLAN: Appreciate Trauma Surgery recommendations. Pt doing well. On oxygen but saturations are mid to upper 90s. Will check home oxygen evaluation prior to discharge. Appreciate PT recommendations and plan for home with home PT/OT. Minimize narcotics. Left voicemail for daughter Maggie. Discharge home today. Oxygen Documentation I certify that this patient, Alyx Sarmiento has been under my care (or a nurse practitioner or physican's glass ribbon machine operator assistant working with me). This is the [id number]-fm-[facility]mc encounter for oxygen medical necessity. At the time of this encounter, I have reviewed the qualifying testing and have determined that supplemental oxygen is reasonable and necessary and is expected to improve the patient's condition in a home setting. Patient has continued oxygen desaturation due to Acute Respiratory Failure J96.01. If portability is ordered, is the patient mobile within the home? yes Was this visit performed as a telehealth visit: No Problem List: Mechanical Fall Acute L Posterior Ribs 10-12 Fractures Acute Hypoxic Respiratory Failure - Appreciate Trauma Surgery recommendations - Encourage incentive spirometry - Wean O2 as able - PT/OT - recommending home with home PT/OT - Pain control prn - minimize narcotics Dementia Hx of CVA - Pt lives at [facility] - Continue donepezil and seroquel Chronic Medical Problems: Hypertension Atrial Fibrillation Type 2 Diabetes Mellitus COPD Chronic HFpEF CAMILO Morbid Obesity - BMI 49.1 I spent 43 minutes in reviewing this patient's labs, imaging, medications, medical history. In addition time was spent interviewing the patient, communicating with family, and medical decision making. DVT Prophylaxis: Pneumatic Compression Devices Code Status: No CPR- Do NOT Intubate Diet: Combination Diet Regular Diet Adult Bragg Catheter: Not present Disposition: Medically Ready for Discharge: Ready Now Goals to discharge include: home oxygen evaluation complete Family updated today: Left voicemail for daughter Maggie Interval History Pt seen and examined. Pt reports feeling ok. -Data reviewed today: I personally reviewed all new labs and imaging results over the last 24 hours. Physical Exam Temp: 97.1 ?F (36.2 ?C) Temp src: Temporal BP: (!) 142/81 Pulse: 94 Resp: 17 SpO2: 99 % O2 Device: Nasal cannula Oxygen Delivery: 2 LPM Vitals: 12/09/23 2200 Weight: 142.4 kg (314 lb) Vital Signs with Ranges Temp: [97.1 ?F (36.2 ?C)-99.7 ?F (37.6 ?C)] 97.1 ?F (36.2 ?C) Pulse: [76-113] 94 Resp: [17-20] 17 BP: (100-143)/(69-93) 142/81 SpO2: [93 %-99 %] 99 % I/O last 3 completed shifts: In: 480 [P.O.:480] Out: - GENERAL: No apparent distress. Awake, alert HEENT: Normocephalic, atraumatic. Extraocular movements intact. CARDIOVASCULAR: Regular rate and rhythm without murmurs or rubs. No S3. PULMONARY: Clear bilaterally. GASTROINTESTINAL: Soft, non-tender, non-distended. Bowel sounds normoactive. EXTREMITIES: No cyanosis or clubbing. No edema. NEUROLOGICAL: CN 2-12 grossly intact, no focal neurological deficits. DERMATOLOGICAL: No rash, ulcer, bruising, nor jaundice. Medications Current Facility-Administered Medications Medication Dose Route Frequency Provider Last Rate Last Admin Current Facility-Administered Medications Medication Dose Route Frequency Provider Last Rate Last Admin acetaminophen (TYLENOL) tablet 1,000 mg 1,000 mg Oral TID Ky Saldana MD 1,000 mg at 12/11/23 0835 donepezil (ARICEPT) tablet 10 mg 10 mg Oral At Bedtime Ky Saldana MD 10 mg at 12/10/23 2216 FLUoxetine (PROzac) capsule 10 mg 10 mg Oral Daily Ky Saldana MD 10 mg at 12/11/23 0835 fluticasone-vilanterol (BREO ELLIPTA) 200-25 MCG/ACT inhaler 1 puff 1 puff Inhalation Daily Ky Saldana MD 1 puff at 12/11/23 0805 And umeclidinium (INCRUSE ELLIPTA) 62.5 MCG/ACT inhaler 1 puff 1 puff Inhalation Daily Ky Saldana MD 1 puff at 12/11/23 0806 gabapentin (NEURONTIN) capsule 100 mg 100 mg Oral TID Ky Saldana MD 100 mg at 12/11/23 0836 [Held by provider] hydrochlorothiazide (HYDRODIURIL) tablet 25 mg 25 mg Oral Daily Ky Saldana MD insulin aspart (NovoLOG) injection (RAPID ACTING) 1-7 Units Subcutaneous TID AC Ky Saldana MD 1 Units at 12/10/23 1703 insulin aspart (NovoLOG) injection (RAPID ACTING) 1-5 Units Subcutaneous At Bedtime Ky Saldana MD insulin glargine (LANTUS PEN) injection 10 Units 10 Units Subcutaneous At Bedtime Ky Saldana MD 10 Units at 12/10/23 2216 irbesartan (AVAPRO) tablet 150 mg 150 mg Oral BID Ky Saldana MD 150 mg at 12/11/23 0836 Lidocaine (LIDOCARE) 4 % Patch 1 patch 1 patch Transdermal Q24H Ky Saldana MD 1 patch at 12/11/23 0841 oxyBUTYnin ER (DITROPAN XL) 24 hr tablet 10 mg 10 mg Oral Daily Diallo Holley DO 10 mg at 12/11/23 0836 QUEtiapine (SEROquel) tablet 25 mg 25 mg Oral At Bedtime Ky Saldana MD 25 mg at 12/10/23 2216 sodium chloride (PF) 0.9% PF flush 3 mL 3 mL Intracatheter Q8H Ky Saldana MD 3 mL at 12/11/23 0429 Data Laboratory: Recent Labs Lab 12/11/23 0708 12/09/23 2208 WBC 6.0 6.9 HGB 13.5 13.1 HCT 44.6 41.3 MCV 103* 98 PLT 175 188 Recent Labs Lab 12/11/23 0708 12/11/23 0223 12/10/23 2154 12/10/23 0811 12/10/23 0640 12/10/23 0237 12/09/23 2208 NA 137 -- -- -- 138 -- 138 POTASSIUM 4.4 -- -- -- 4.1 -- 4.4 CHLORIDE 98 -- -- -- 100 -- 98 CO2 28 -- -- -- 29 -- 30* ANIONGAP 11 -- -- -- 9 -- 10 GLC 98 115* 119* < > 134* 134* < > 176* BUN 18.5 -- -- -- 16.7 -- 15.4 CR 0.74 -- -- -- 0.78 -- 0.91 GFRESTIMATED 78 -- -- -- 73 -- 61 OLAF 8.6* -- -- -- 8.5* -- 8.7* < > = values in this interval not displayed. No results for input(s): CULT in the last 168 hours. Troponin I ES Date Value Ref Range Status 04/07/2020 <0.015 0.000 - 0.045 ug/L Final Comment: The 99th percentile for upper reference range is 0.045 ug/L. Troponin values in the range of 0.045 - 0.120 ug/L may be associated with risks of adverse clinical events. Imaging: No results found for this or any previous visit (from the past 24 hour(s)). Diallo Holley DO [facility] [place] [address] Securely message with [employer] (more info) Text page via [facility] Paging/Directory 12/11/2023 * Bryanna Batres, PT - 12/10/2023 4:27 PM CDT 12/10/23 8625 Appointment Info Signing Clinician's Name / Credentials (PT) CARMEN Fernandez Student Supervision On-site supervision provided;Line of sight supervision provided;Therapy services provided with the co-signing licensed therapist guiding and directing the services, and providing the skilled judgement and assessment throughout the session;Direct supervision provided (Bryanna Batres, DPT) Living Environment People in Home alone Current Living Arrangements assisted living Living Environment Comments Pt lives in [facility] with people available if needed Self-Care Usual Activity Tolerance moderate Current Activity Tolerance fair Equipment Currently Used at Home walker, rolling Fall history within last six months yes Number of times patient has fallen within last six months 1 Activity/Exercise/Self-Care Comment Pt has assistance with dressing, bathing, meals, meds, cleaning, laundry. Pt does own toileting at home. Ambulates with 4WW. No O2. General Information Onset of Illness/Injury or Date of Surgery 12/09/23 Referring Physician Ky Saldana MD Patient/Family Therapy Goals Statement (PT) Return Home Pertinent History of Current Problem (include personal factors and/or comorbidities that impact thePOC) Per chart Review: Alyx Sarmiento is a 88 year old female with a history of breast cancer, CVA,CHF, COPD, CAD, hypertension, hyperlipidemia, melanoma of the skin, and type 2 diabetes who presents to the Emergency Department for rib pain in the context of a fall. The patient was in the kitchen this afternoon when she fell over and hit her left side. The patient says today was a normal day andshe did not feel dizzy or faint before falling. She also denies loss of consciousness with this fall. She denies any head injury or headache. EMS responded and did not bring the patient to the ED, but she now presents due to increased pain in her lower left ribs. She says it hurts to breathe and she has shortness of breath which is not normal for her. She denies weakness, numbness or tingling in her appendages, or pain to the head, neck, back, chest, legs, arms, or abdomen. Of note, the patientsays she has leg swelling at baseline. Cognition Affect/Mental Status (Cognition) WFL Orientation Status (Cognition) oriented x 4 Follows Commands (Cognition) WFL Pain Assessment Patient Currently in Pain Yes, see Vital Sign flowsheet Posture Posture Forward head position;Protracted shoulders Range of Motion (ROM) Range of Motion ROM is WFL Strength (Manual Muscle Testing) Strength (Manual Muscle Testing) Deficits observed during functional mobility Bed Mobility Comment, (Bed Mobility) Not tested. Pt notes sleeping in recliner at baseline Transfers Comment, (Transfers) Able to perform STS with CGA and 4WW Gait/Stairs (Locomotion) Comment, (Gait/Stairs) Able to ambulate 10' with FWW and CG Balance Balance Comments Requires 4WW for Balance with ambulation, displays good sitting abalance Clinical Impression Criteria for Skilled Therapeutic Intervention Yes, treatment indicated PT Diagnosis (PT) Impaired mobility Influenced by the following impairments Pain, weakness Functional limitations due to impairments Transfers, Ambulation Clinical Presentation (PT Evaluation Complexity) stable Clinical Presentation Rationale Clinical Judgement Clinical Decision Making (Complexity) low complexity Planned Therapy Interventions (PT) home exercise program;patient/family education;strengthening;transfer training;home program guidelines;risk factor education Risk & Benefits of therapy have been explained evaluation/treatment results reviewed;care plan/treatment goals reviewed;risks/benefits reviewed;current/potential barriers reviewed;participants voiced agreement with care plan;participants included;patient PT Total Evaluation Time PT Eval, Low Complexity Minutes (46369) 15 Physical Therapy Goals PT Frequency Daily PT Predicted Duration/Target Date for Goal Attainment 12/12/23 PT Goals Transfers;Gait PT: Transfers Modified independent;Sit to/from stand;Assistive device PT: Gait Modified independent;Rolling walker;150 feet Interventions Interventions Quick Adds Therapeutic Activity;Gait Training Therapeutic Activity Therapeutic Activities: dynamic activities to improve functional performance Minutes (92292) 8 Symptoms Noted During/After Treatment Fatigue;Increased pain Treatment Detail/Skilled Intervention Pt met in recliner and agreeable to session on 2L O2. Pt cuedto perform STS with 4WW and CGA. Pt swapped to portable O2. Pt requested bathroom requiring CGA [place] transfer onto toliet, is IND with pericares.Pt requiring Emeli to get up from toliet, likely due to depth of toliet noting higher toliet at home. Pt returned to recliner with alarm on and all needs within reach. Pt educated on benefits of exercise, pain management, role of physical therapy and reccomendations for discharge. Gait Training Gait Training Minutes (42306) 10 Symptoms Noted During/After Treatment (Gait Training) fatigue;increased pain Treatment Detail/Skilled Intervention Pt cued to ambulate 150' with CGA and 4WW. Pt demoed a forward flexed head and protracted shoulders with flexed trunk. Pt presented with a slow reciprocal gait pattern, with adequate foot clearance and stride lengths. VC/TC for upright posture, safe walker management, foot clearance. O2 remaining in 90s throughout ambulation. PT Discharge Planning PT Plan Progress Ambulation/endurance, transfers pollo from eleveated toilet seat(place commode over toilet, assess O2 sats as not O2 dep at baseline PT Discharge Recommendation (DC Rec) home with assist;home with home care physical therapy PT Rationale for DC Rec Pt is currently below baseline for funtional mobility. Pt requiring SBA and4WW for ambulation and STS, but did require Emeli for [place] transfer likely due to height of toliet. Pt lives in [facility] and notes having assitance if needed for transfers, IADLs. Pt will likely meet allgoals in PT pending pain management. Recomend continued assist at home for previously given needs and Home PT to continue to work on strength and safety at home. 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 In the emergency department, the patient was found to have a blood pressure of 149/112, heartrate 96, temperature 99 ?F, respiratory rate 22, SpO2 83% on room air that improved to 92% with 2 L nasal cannula. Initial lab work showed bicarb 30, BUN/creatinine 15.4/0.91, glucose 176, A1c 6.7, CBC within normal limits. CT chest/abdomen/pelvis showed nondisplaced acute rib fractures of the left 10th through 12th ribs without evidence of pneumothorax. Trauma surgery was consulted to see thepatient. Physical therapy and Occupational Therapy were also consulted to see the patient. TODAY'S PLAN: Appreciate Trauma Surgery recommendations. Daily CXR. Wean O2 as able. Encouraged incentive spirometry. Pain control prn. Appreciate PT/OT recommendations. Anticipate discharge tomorrowpending PT/OT recommendations. Pt states she tripped and normally ambulates with a seated walker. Left voicemail for daughter Maggie. Problem List: Mechanical Fall Acute L Posterior Ribs 10-12 Fractures Acute Hypoxic Respiratory Failure - Appreciate Trauma Surgery recommendations - Daily CXR - Encourage incentive spirometry - Wean O2 as able - PT/OT - Pain control prn - minimize narcotics Dementia Hx of CVA - Pt lives at [facility] - Continue donepezil and seroquel Chronic Medical Problems: Hypertension Atrial Fibrillation Type 2 Diabetes Mellitus COPD Chronic HFpEF CAMILO Morbid Obesity - BMI 49.1 I spent 47 minutes in reviewing this patient's labs, imaging, medications, medical history. In addition time was spent interviewing the patient, communicating with family, and medical decision making. DVT Prophylaxis: Pneumatic Compression Devices Code Status: No CPR- Do NOT Intubate Diet: Combination Diet Regular Diet Adult Bragg Catheter: Not present Disposition: Medically Ready for Discharge: Anticipated Tomorrow Goals to discharge include: PT/OT evaluation complete, oxygen weaned Family updated today: Left voicemail for daughter Maggie Interval History Pt seen and examined. Pt reports ongoing small amount of pain in her left lower chest. -Data reviewed today: I personally reviewed all new labs and imaging results over the last 24 hours. Physical Exam Temp: 98.4 ?F (36.9 ?C) Temp src: Temporal BP: 131/87 Pulse: 79 Resp: 20 SpO2: 94 % O2 Device: Nasal cannula Oxygen Delivery: 2 LPM Vitals: 12/09/23 2200 Weight: 142.4 kg (314 lb) Vital Signs with Ranges Temp: [98.3 ?F (36.8 ?C)-99 ?F (37.2 ?C)] 98.4 ?F (36.9 ?C) Pulse: [71-96] 79 Resp: [18-22] 20 BP: (131-156)/(80-147) 131/87 SpO2: [83 %-100 %] 94 % No intake/output data recorded. GENERAL: No apparent distress. Awake, alert, and fully oriented. HEENT: Normocephalic, atraumatic. Extraocular movements intact. CARDIOVASCULAR: Regular rate and rhythm without murmurs or rubs. No S3. PULMONARY: Clear bilaterally. GASTROINTESTINAL: Soft, non-tender, non-distended. Bowel sounds normoactive. EXTREMITIES: No cyanosis or clubbing. No edema. NEUROLOGICAL: CN 2-12 grossly intact, no focal neurological deficits. DERMATOLOGICAL: No rash, ulcer, bruising, nor jaundice. Medications Current Facility-Administered Medications Medication Dose Route Frequency Provider Last Rate Last Admin Current Facility-Administered Medications Medication Dose Route Frequency Provider Last Rate Last Admin acetaminophen (TYLENOL) tablet 1,000 mg 1,000 mg Oral TID Ky Saldana MD 1,000 mg at 12/10/23 1024 donepezil (ARICEPT) tablet 10 mg 10 mg Oral At Bedtime Ky Saldana MD FLUoxetine (PROzac) capsule 10 mg 10 mg Oral Daily Ky Saldana MD 10 mg at 12/10/23 1024 fluticasone-vilanterol (BREO ELLIPTA) 200-25 MCG/ACT inhaler 1 puff 1 puff Inhalation Daily Ky Saldana MD And umeclidinium (INCRUSE ELLIPTA) 62.5 MCG/ACT inhaler 1 puff 1 puff Inhalation Daily Ky Saldana MD gabapentin (NEURONTIN) capsule 100 mg 100 mg Oral TID Ky Saldana MD 100 mg at 12/10/23 0836 [Held by provider] hydrochlorothiazide (HYDRODIURIL) tablet 25 mg 25 mg Oral Daily Ky Saldana MD insulin aspart (NovoLOG) injection (RAPID ACTING) 1-7 Units Subcutaneous TID AC Ky Saldana MD 1 Units at 12/10/23 0838 insulin aspart (NovoLOG) injection (RAPID ACTING) 1-5 Units Subcutaneous At Bedtime Ky Saldana MD insulin glargine (LANTUS PEN) injection 10 Units 10 Units Subcutaneous At Bedtime Ky Saldana MD irbesartan (AVAPRO) tablet 150 mg 150 mg Oral BID Ky Saldana MD Lidocaine (LIDOCARE) 4 % Patch 1 patch 1 patch Transdermal Q24H Ky Saldana MD 1 patch at 12/10/23 0835 oxyBUTYnin ER (DITROPAN XL) 24 hr tablet 10 mg 10 mg Oral Daily Diallo Holley DO QUEtiapine (SEROquel) tablet 25 mg 25 mg Oral At Bedtime Ky Saldana MD sodium chloride (PF) 0.9% PF flush 3 mL 3 mL Intracatheter Q8H Ky Saldana MD Data Laboratory: Recent Labs Lab 12/09/23 2208 WBC 6.9 HGB 13.1 HCT 41.3 MCV 98 PLT 188 Recent Labs Lab 12/10/23 0811 12/10/23 0640 12/10/23 0237 12/09/23 2208 NA -- 138 -- 138 POTASSIUM -- 4.1 -- 4.4 CHLORIDE -- 100 -- 98 CO2 -- 29 -- 30* ANIONGAP -- 9 -- 10 GLC 146* 134* 134* 152* 176* BUN -- 16.7 -- 15.4 CR -- 0.78 -- 0.91 GFRESTIMATED -- 73 -- 61 OLAF -- 8.5* -- 8.7* No results for input(s): CULT in the last 168 hours. Troponin I ES Date Value Ref Range Status 04/07/2020 <0.015 0.000 - 0.045 ug/L Final Comment: The 99th percentile for upper reference range is 0.045 ug/L. Troponin values in the range of 0.045 - 0.120 ug/L may be associated with risks of adverse clinical events. Imaging: Recent Results (from the past 24 hour(s)) CT Chest/Abdomen/Pelvis w Contrast Narrative EXAM: CT CHEST, ABDOMEN AND PELVIS WITH CONTRAST LOCATION: [facility] DATE/TIME: 12/09/2023 11:27 PM CDT INDICATION: Fall. Left-sided pain and shortness of breath. COMPARISON: 07/14/2022 - CT chest. 04/07/2020 - CT chest, abdomen and pelvis. TECHNIQUE: CT scan of the chest, abdomen, and pelvis was performed following injection of IV contrast. Multiplanar reformats were obtained. Dose reduction techniques were used. CONTRAST: 100 mL Isovue-[id number]. FINDINGS: LUNGS AND PLEURA: A few curvilinear opacities in the lower lungs bilaterally, likely representing atelectasis. Small calcified granuloma in the left lung base. No pneumothorax. MEDIASTINUM/AXILLAE: Atherosclerotic calcification in the aorta. Mild cardiomegaly. Calcification in the region of the aortic and mitral valves. CORONARY ARTERY CALCIFICATION: Present. HEPATOBILIARY: Mild diffuse fatty infiltration of the liver. The gallbladder is not visualized. SPLEEN: A few tiny calcified granulomas in the spleen. PANCREAS: Unremarkable. ADRENAL GLANDS: 2.6 x 2.1 cm right adrenal nodule and 2.4 x 1.3 cm left adrenal nodule. These were both present on 04/07/2020 and therefore most likely represent adenomas. KIDNEYS/BLADDER: No suspicious renal lesions. BOWEL: Several colonic diverticula are present without evidence of diverticulitis. The appendix is not visualized. LYMPH NODES: Unremarkable. PELVIC ORGANS: No acute findings. MUSCULOSKELETAL: Nondisplaced acute fractures of the posterior aspects of the left 10th through 12th ribs. Bilateral shoulder arthroplasties. Old severe compression deformity of the L1 vertebral body. OTHER: None. Impression IMPRESSION: 1. Nondisplaced acute fractures of the posterior aspects of the left 10th through 12th ribs. No pneumothorax. 2. No other evidence of acute trauma in the chest, abdomen or pelvis. Diallo Holley DO [facility] Hospitalist [address] [place] [address] Securely message with [employer] info) Text page via [facility] Paging/Directory 12/10/2023 documented in this encounter H&P Notes * Ky Saldana MD - 12/10/2023 1:26 AM CDT [facility] Hospitalist Admission Note Name: Alyx Sarmiento Date of : 1935 Age: [age] year old Date of admission: 12/09/2023 Primary care provider: Darlene Gamez Chief Complaint: fall, left chest pain Assessment and Plan: Fall Acute traumatic left posterior 10, 11, 12th rib fractures Acute hypoxemic respiratory failure CAMILO: She was in her kitchen in her independent living facility when she turned too quickly and tripped and fell landing on her left side. Evaluated by EMS, but felt like she was doing okay so she didnot come in until later in the evening when she developed progressively worsening pain on the left lateral lower chest wall that is worse with deep inspiration along with some shortness of breath. Denies dizziness prior to falling or loss of consciousness. In normal state of health prior to the fall. Has had right-sided rib fractures in July 2022. She is on 81 mg aspirin for recently diagnosed A-fib. Hypoxic to 83% when attempting to wean from supplemental oxygen in the ER, but appears comfortable on 2 L via nasal cannula. CT chest/ab/pelvis shows nondisplaced acute fractures of the posterior aspect of the left 10th through 12th rib fractures without pneumothorax and no other evidence for trauma. -Rib fracture order set -Consult general surgery for trauma eval -Repeat chest x-ray this morning -Continuous pulse ox and supplemental oxygen as needed -She does not use CPAP for her CAMILO -Acetaminophen 975 mg scheduled 3 times daily, place lidocaine patch, methocarbamol 500 mg 4 times daily as needed, start gabapentin 100 mg 3 times daily, oxycodone 2.5 mg for moderate and 5 mg for severe pain every 4 hours as needed, IV Dilaudid 0.3 mg every 2 hours as needed for severe acute pain. Has mild IAN and allergy listed to naproxen so I did not order NSAIDs -Consult PT/OT/SW, fall precautions Dementia History CVA: Commendation of vascular and Alzheimer's dementia. I believe she still lives in independent living facility. They handle her medications. Right thalamus stroke in 2010. She is on 81 mg aspirin. -Resume VAMP PRESSER donepezil 10 mg at bedtime and quetiapine 25 mg at bedtime -Fall precautions IAN: Creatinine is 0.91 in the ER up from 0.5-0.6 baseline. She is on irbesartan and HCTZ. Denies any recent vomiting, diarrhea, decreased p.o. intake. -Give 500 mL NS bolus and recheck BMP in the morning -Resume irbesartan, but hold HCTZ initially A-fib: Reportedly a recent diagnosis for her. She is on 81 mg aspirin instead of anticoagulation reportedly due to her falls. EKG confirms A-fib with controlled rate. -Resume 81 mg aspirin IDDM type II: VAMP PRESSER on glargine 10 units at bedtime. Glucose 176 in the ER. Not sure if she took her glargine this evening before coming to the ER. -Resume glargine 10 units at bedtime first dose evening of 12/09 -Medium dose sliding scale aspart HTN Chronic diastolic CHF: VAMP PRESSER on irbesartan 150 mg twice daily and HCTZ 25 mg daily. She has 1+ lower extreme edema bilaterally on exam which she says is baseline. Most recent TTE last year showed grade1 diastolic dysfunction and mild aortic stenosis. -Resume irbesartan she is moderately hypertensive in the ER, but hold HCTZ initially due to IAN COPD: No wheezing on exam. Not on supplemental oxygen at baseline. She is on Trelegy Ellipta and albuterol as needed. -Resume Trelegy Ellipta and albuterol inhaler as needed. DuoNebs as needed for wheezing. Morbid obesity: 49.1. DVT Prophylaxis: Pneumatic Compression Devices Code Status: DNR / DNI -patient came in with POLST from 04/2023 that confirms DNR/DNI with comfort focused strategy FEN: Regular diet Discharge Dispo: Consult PT/OT/SW. I believe she is an independent living facility who provided medications. Estimated Disch Date / # of Days until Disch: Admit inpatient for rib fractures resulting in pain requiring IV opiate therapy and hypoxia. Anticipate 2 night hospitalization History of Present Illness: Alyx Sarmiento is a 88 year old female with PMH including dementia, COPD not on O2, CAMILO not on CPAP,recently diagnosed A-fib on aspirin, CVA, diastolic CHF, HTN, IDDM type II, morbid obesity, and falls who presents via EMS after a fall earlier today. She was in her kitchen I believe an independent living facility when she turned too quickly falling on her left side. EMS was called, but she was not having that much pain was able to ambulate so she declined transfer to the ER. Throughout the evening she has had increasing left lateral chest pain that is worse with deep inspiration, movement, and touching the area. She does feel little bit short of breath. She denies any other new areas of pain since her fall. Denies dizziness prior to falling, loss of consciousness, or head trauma. She doesoccasionally have falls despite using her walker. On review of systems she denies any fevers, chills, nausea, vomiting, diarrhea, dysuria, abdominal pain, cough. History obtained from patient, medical record, and from Dr. Reardon in the emergency department. Bloodpressure 149/112, heart rate 96, temperature 99 ?F, oxygen down to 83% when on room air otherwise in the 90s on 2 L via nasal cannula. Initial labs show CBC within normal limits. Creatinine up slightly from baseline at 0.91. Bicarb is 30 which is her baseline. Glucose elevated 176. LFTs, lipase,INR normal. EKG shows A-fib with controlled rate. CT of the chest/ab/pelvis shows left-sided 10 through 12 rib fractures without pneumothorax. She received acetaminophen, 4 mg IV morphine, and Zofran. Due to ongoing hypoxia she will be admitted as an inpatient. Clinically Significant Risk Factors Present on Admission # Drug Induced Platelet Defect: home medication list includes an antiplatelet medication # Hypertension: Noted on problem list # Severe Obesity: Estimated body mass index is 49.18 kg/m? as calculated from the following: Height as of this encounter: 1.702 m (5' 7). Weight as of this encounter: 142.4 kg (314 lb). # COPD: noted on problem list Past Medical History reviewed: Past Medical History: Diagnosis Date Breast cancer Carpal tunnel syndrome Cerebrovascular accident CHF (congestive heart failure) Cognitive impairment COPD (chronic obstructive pulmonary disease) Coronary artery disease Dementia (H) Diverticulitis Essential hypertension, benign Hyperlipidemia Melanoma of skin Morbid obesity (H) CAMILO (obstructive sleep apnea) Osteoarthrosis Type 2 diabetes mellitus Past Surgical History reviewed: Past Surgical History: Procedure Laterality Date ARTHROSCOPY KNEE Breast lumpectomy CATARACT IOL, RT/LT Bilateral RE 06/17/2006; Le 10/08/2011 CHOLECYSTECTOMY COLECTOMY SUBTOTAL COLONOSCOPY N/A 04/15/2019 Procedure: COLONOSCOPY; Surgeon: Dina Johnson MD; Location: [facility] Hysterectomy / BSO secondary to bleeding Melanoma excision YAG CAPSULOTOMY OD (RIGHT EYE) Right 04/12/2013 YAG CAPSULOTOMY OS (LEFT EYE) Left Social History reviewed: Social History Tobacco Use Smoking status: Former Current packs/day: 0.00 Types: Cigarettes Quit date: 11/12/1991 Years since quittin.0 Smokeless tobacco: Never Substance Use Topics Alcohol use: No Social History Social History Narrative Not on file Family History reviewed: Reviewed chart noncontributory this admission Allergies: Allergies Allergen Reactions Glucophage [Metformin] Other (See Comments) PN: H/A Put her in the hospital Insulin Detemir Hives Levofloxacin Other reaction(s): Bruising, Moderate, Active Metoprolol Other reaction(s): Respiratory Arrest PN: RESPIRATORY ARREST Amlodipine PN: rash Azithromycin Esterified Estrogens headaches Exenatide Lasix [Furosemide] Lisinopril Losartan Other reaction(s): Chest Pain PN: SOB Mercury Metoprolol Succinate fatigue, diaphoresis Naproxen fingernail color changes Naproxen Sodium cough Penicillins Pioglitazone Simvastatin fatigue Sitagliptin Clopidogrel Swelling Insulin Other reaction(s): Severe, Active Medications: Prior to Admission medications Medication Sig Last Dose Taking? Auth Provider Support Manager End Date QUEtiapine (SEROQUEL) 25 MG tablet Take 25 mg by mouth at bedtime. Yes Reported, Patient Yes acetaminophen (TYLENOL) 500 MG tablet Take 2 tablets (1,000 mg) by mouth 3 times daily Ky Saldana MD albuterol (PROAIR HFA) 108 (90 BASE) MCG/ACT Inhaler Inhale 2 puffs into the lungs every 4 hours asneeded for shortness of breath / dyspnea or wheezing Unknown, Entered By History aspirin (ASA) 81 MG EC tablet Take 81 mg by mouth daily Dixon Panchal MD Coenzyme Q10 300 MG CAPS Take 1 tablet by mouth daily Reported, Patient cyanocolbalamin (VITAMIN B-12) 500 MCG tablet Take 500 mcg by mouth daily Reported, Patient donepezil (ARICEPT) 5 MG tablet Take 5 mg by mouth daily Unknown, Entered By History FLUoxetine (PROZAC) 10 MG capsule Take 10 mg by mouth daily Unknown, Entered By History Yes fluticasone-salmeterol (ADVAIR) 500-50 MCG/ACT inhaler Inhale 1 puff into the lungs every 12 hours Unknown, Entered By History No gabapentin (NEURONTIN) 100 MG capsule Take 1 capsule (100 mg) by mouth 3 times daily If rib pain resolves before 30 days this medication can be stopped Ky Saldana MD Yes hydrochlorothiazide (HYDRODIURIL) 25 MG tablet Take 25 mg by mouth every evening Reported, Patient insulin glargine (LANTUS PEN) 100 UNIT/ML pen Inject 10 Units Subcutaneous At Bedtime Hoa Saldana MD Yes irbesartan (AVAPRO) 300 MG tablet Take 150 mg by mouth 2 times daily Unknown, Entered By History No Lidocaine (LIDOCARE) 4 % Patch Place 2 patches onto the skin every 24 hours pply 1 patch to right lower lateral posterior chest wall and one patch to right mid lower anterior chest wall. To prevent lidocaine toxicity, patient should be patch free for 12 hrs daily. Ky Saldana MD tiotropium (SPIRIVA) 18 MCG inhaled capsule Inhale 18 mcg into the lungs daily Unknown, Entered By History No TRELEGY ELLIPTA 200-62.5-25 MCG/ACT oral inhaler Inhale 1 puff into the lungs daily. Reported, Patient Review of Systems: A Comprehensive greater than 10 system review of systems was carried out. Pertinent positives and negatives are noted above. Otherwise negative. Physical Exam: Blood pressure (!) 149/112, pulse 96, temperature 99 ?F (37.2 ?C), temperature source Oral, resp. rate 22, height 1.702 m (5' 7), weight 142.4 kg (314 lb), SpO2 97%. Wt Readings from Last 1 Encounters: 12/09/23 142.4 kg (314 lb) Exam: Constitutional: Awake, NAD Eyes: sclera white HEENT: MMM Respiratory: no respiratory distress, lungs cta bilaterally, no crackles or wheeze, appears comfortable on 2 L via nasal cannula Cardiovascular: Irregularly, regular rhythm, regular rate, 1/6 systolic murmur GI: Obese, non-tender, slight tenderness left upper quadrant area without guarding, bowel sounds present Skin: no rash Musculoskeletal/extremities: Tender over the left lateral chest wall. 1+ bilateral lower extremity edema. Neurologic: Alert, answering symptom-based questions appropriately, could recall the events of earlier today Psychiatric: calm, cooperative Lab and imaging data personally reviewed: Labs: Recent Labs Lab 12/09/232207 WBC 6.9 HGB 13.1 HCT 41.3 MCV 98 PLT 188 Recent Labs Lab 12/09/232207 NA 138 POTASSIUM 4.4 CHLORIDE 98 CO2 30* ANIONGAP 10 GLC 176* BUN 15.4 CR 0.91 GFRESTIMATED 61 OLAF 8.7* PROTTOTAL 6.8 ALBUMIN 4.0 BILITOTAL 0.4 ALKPHOS 84 AST 27 ALT 31 Recent Labs Lab 12/09/232207 INR 1.12 Recent Labs Lab 12/09/232207 LIPASE 17 EKG: A-fib with controlled rate Imaging: Recent Results (from the past 24 hour(s)) CT Chest/Abdomen/Pelvis w Contrast Narrative EXAM: CT CHEST, ABDOMEN AND PELVIS WITH CONTRAST LOCATION: [facility] DATE/TIME: 12/09/2023 11:27 PM CDT INDICATION: Fall. Left-sided pain and shortness of breath. COMPARISON: 07/14/2022 - CT chest. 04/07/2020 - CT chest, abdomen and pelvis. TECHNIQUE: CT scan of the chest, abdomen, and pelvis was performed following injection of IV contrast. Multiplanar reformats were obtained. Dose reduction techniques were used. CONTRAST: 100 mL Isovue-370. FINDINGS: LUNGS AND PLEURA: A few curvilinear opacities in the lower lungs bilaterally, likely representing atelectasis. Small calcified granuloma in the left lung base. No pneumothorax. MEDIASTINUM/AXILLAE: Atherosclerotic calcification in the aorta. Mild cardiomegaly. Calcification in the region of the aortic and mitral valves. CORONARY ARTERY CALCIFICATION: Present. HEPATOBILIARY: Mild diffuse fatty infiltration of the liver. The gallbladder is not visualized. SPLEEN: A few tiny calcified granulomas in the spleen. PANCREAS: Unremarkable. ADRENAL GLANDS: 2.6 x 2.1 cm right adrenal nodule and 2.4 x 1.3 cm left adrenal nodule. These were both present on 04/07/2020 and therefore most likely represent adenomas. KIDNEYS/BLADDER: No suspicious renal lesions. BOWEL: Several colonic diverticula are present without evidence of diverticulitis. The appendix is not visualized. LYMPH NODES: Unremarkable. PELVIC ORGANS: No acute findings. MUSCULOSKELETAL: Nondisplaced acute fractures of the posterior aspects of the left 10th through 12th ribs. Bilateral shoulder arthroplasties. Old severe compression deformity of the L1 vertebral body. OTHER: None. Impression IMPRESSION: 1. Nondisplaced acute fractures of the posterior aspects of the left 10th through 12th ribs. No pneumothorax. 2. No other evidence of acute trauma in the chest, abdomen or pelvis. Ky Saldana MD Hospitalist [facility] documented in this encounter Consult Notes * Damaris Valdez RN - 12/10/2023 2:07 PM CDTAssociated Order(s): CARE MANAGEMENT / SOCIAL WORK IP CONSULT Care Management Initial Consult General Information Assessment completed with: Patient, Children, Type of CM/SW Visit: Initial Assessment Primary Care Provider verified and updated as needed: Yes Readmission within the last 30 days: no previous admission in last 30 days Reason for Consult: discharge planning Advance Care Planning: Advance Care Planning Reviewed: present on chart Communication Assessment Patient's communication style: spoken language (Sammarinese or Bilingual) Hearing Difficulty or Deaf: no Wear Glasses or Blind: no Cognitive Cognitive/Neuro/Behavioral: .WDL except Level of Consciousness: intermittent confusion Arousal Level: opens eyes spontaneously Orientation: (poor historian of medical hx.) Mood/Behavior: calm, cooperative Best Language: 0 - No aphasia Speech: logical, spontaneous, clear Living Environment: People in home: alone Current living Arrangements: assisted living Able to return to prior arrangements: yes Family/Social Support: Care provided by: self, child(gia), other (see comments) ([employer] staff) Provides care for: no one Marital Status: Support system: Children Description of Support System: Supportive, Involved Support Assessment: Adequate family and caregiver support, Adequate social supports Current Resources: Patient receiving home care services: No Community Resources: None Equipment currently used at home: walker, rolling Supplies currently used at home: None Employment/Financial: Employment Status: retired Financial Concerns: none Does the patient's insurance plan have a 3 day qualifying hospital stay waiver? Yes Which insurance plan 3 day waiver is available? Alternative insurance waiver Will the waiver be used for post-acute placement? Undetermined at this time Lifestyle & Psychosocial Needs: Social Determinants of Health Food Insecurity: Low Risk (12/10/2023) Food Insecurity Within the past 12 months, did you worry that your food would run out before you got money to buy more?: No Within the past 12 months, did the food you bought just not last and you didn?t have money to get more?: No Depression: Not at risk (08/26/2022) PHQ-2 PHQ-2 Score: 0 Housing Stability: Low Risk (12/10/2023) Housing Stability Do you have housing? : Yes Are you worried about losing your housing?: No Tobacco Use: Medium Risk (12/10/2023) Patient History Smoking Tobacco Use: Former Smokeless Tobacco Use: Never Passive Exposure: Not on file Financial Resource Strain: Low Risk (12/10/2023) Financial Resource Strain Within the past 12 months, have you or your family members you live with been unable to get utilities (heat, electricity) when it was really needed?: No Alcohol Use: Not on file Transportation Needs: Unknown (12/10/2023) Transportation Needs Within the past 12 months, has lack of transportation kept you from medical appointments, getting your medicines, non-medical meetings or appointments, work, or from getting things that you need?: Patient unable to answer Physical Activity: Not on file Interpersonal Safety: Low Risk (12/10/2023) Interpersonal Safety Do you feel physically and emotionally safe where you currently live?: Yes Within the past 12 months, have you been hit, slapped, kicked or otherwise physically hurt by someone?: No Within the past 12 months, have you been humiliated or emotionally abused in other ways by your partner or ex-partner?: No Stress: Not on file Social Connections: Not on file Health Literacy: Not on file Functional Status: Prior to admission patient needed assistance: Dependent ADLs:: Ambulation-walker Dependent IADLs:: Cleaning, Cooking, Medication Management, Transportation, Shopping Mental Health Status: Mental Health Status: No Current Concerns Chemical Dependency Status: Values/Beliefs: Spiritual, Cultural Beliefs, Jain Practices, Values that affect care: no Discussed ?Partnership in Safe Discharge Planning? document with patient/family: No Additional Information: Care management consult for discharge planning/disposition. Patient admitted following a fall at her [facility] that resulted in multiple left rib fractures. Met with patient and daughter at bedside. Patient lives in [facility] [place] at [facility]. States she currently only gets medication management. Has been independent with ADLs. Uses a walker at baseline. Daughter states patient just recently completed home care PT and OT due to falls. PT to work with patient here later today. She is currently on oxygen but not at baseline. Patient gave permission for caremanagement to contact [facility] for coordination of care. Spoke with nurse, Kristi, at [facility]. She confirmed patient gets med management. Facility ph# [phone] Pharmacy is [facility] pharmacy Care management to update [facility] with discharge plan once known. Care management to follow for discharge recommendations. Next Steps: monitor for PT recommendations Damaris Valdez RN Gravity Manager [facility] * Mariella Agudelo RD - 12/10/2023 10:24 AM CDTAssociated Order(s): NUTRITION SERVICES ADULT IP CONSULT CLINICAL NUTRITION SERVICES - BRIEF NOTE RD was consulted by Provider for - Trauma pt with multiple rib fractures. RD met with pt and first inquired about typical intake and appetite. Pt endorsed good appetite and stated that she has 3 meals a day that consist of the following: B: Scrambled eggs and josue (sometimes adds toast) L: Some type of protein with fruit or vegetable D: Some type of protein (usually steak on the grill) with roasted vegetables Pt also stated that she will snack throughout the day on occasion. Pt voiced that she has no concerns over her appetite or intake and did not have any questions aboutwhat she should be eating in regards to the day to day. RD spoke with pt about Nutrition Therapy for bone health and presented handouts on calcium and Vitamin D intakes - walked through the handouts with pt and talked about overall needs for each nutrient, sources, and amounts that each source would provide. Pt stated that she currently takes Vitamin D and calcium supplements. RD educated pt on difference of bioavailability between supplements and whole food sources of vitamins and minerals. Pt and RD also discussed the importance of adequate Vitamin D intake as winter approaches and how natural sources of Vitamin D will diminish. Additionally, pt and RD discussed adequate intakes to promote healing. RD left all information with pt. Pt verbalized understanding of all information presented and denied further questions at this time. RD will continue to stay signed off. Will re-evaluate pt at LOS per policy guidelines unless consulted sooner. Aleyda Agudelo RD, LD Clinical Dietitian 3rd Floor/ICU: [phone] All Other Floors: [phone] Weekends/Holiday: [phone] Office: [phone] * Melly Maharaj MD - 12/10/2023 7:57 AM CDTAssociated Order(s): SURGERY GENERAL IP CONSULT [facility] Trauma Surgical Consultation Assessment and Plan: Assessment: Alyx Sarmiento is a 88 year old female who presents after fall from standing. Acute traumatic injuries by imaging: left rib fractures 10, 11, 12. Comorbidities: has a past medical history of Breast cancer, Carpal tunnel syndrome, Cerebrovascularaccident, CHF (congestive heart failure), Cognitive impairment, COPD (chronic obstructive pulmonarydisease), Coronary artery disease, Dementia (H), Diverticulitis, Essential hypertension, benign, Hyp erlipidemia, Melanoma of skin, Morbid obesity (H), CAMILO (obstructive sleep apnea), Osteoarthrosis, and Type 2 diabetes mellitus. Plan: Rib fracture order set already in place: Pain control - tylenol scheduled, lidoderm patch, oxycodone prn, gabapentin 100mg TID Respiratory therapy - Monitor O2 sats, EZPAP TID, Acapella, HC vital capacity treatment TID, nebs prn, IS instruction and teaching - 10x/hr Daily CXR PT/OT and nutrition consults Surgery will sign off call with concerns Chief Complaint: Fall, left chest wall pain History is obtained from the patient. History of Present Illness: Alyx Sarmiento is a 88 year old female who presented to the ED after fall from standing. Reports her walker got away from her and she fell onto her left side in her kitchen. Did not hit her head or any other body part. She was able to get up on her own. Complains of left chest wall pain and difficulty taking deep breaths. Denies abdominal pain, nausea, emesis, dizziness, visual changes, headache, neck pain, back pain, extremity pain. Negative loss of consciousnes. EtOH use immediately prior to incident: No Illicit drug use immediately prior to incident: No Anticoagulation: No History of syncope: No History of falls: No At baseline ambulates independently with a walker. In the ER she was hypoxic in the 80s but came up with 2L nasal cannula. She denies current pain sitting in bed. Past Medical History: has a past medical history of Breast cancer, Carpal tunnel syndrome, Cerebrovascular accident, CHF (congestive heart failure), Cognitive impairment, COPD (chronic obstructive pulmonary disease), Coronary artery disease, Dementia (H), Diverticulitis, Essential hypertension, benign, Hyperlipidemia, Melanoma of skin, Morbid obesity (H), CAMILO (obstructive sleep apnea), Osteoarthrosis, and Type 2 diabetes mellitus. Past Surgical History: Past Surgical History: Procedure Laterality Date ARTHROSCOPY KNEE Breast lumpectomy CATARACT IOL, RT/LT Bilateral RE 06/17/2006; Le 10/08/2011 CHOLECYSTECTOMY COLECTOMY SUBTOTAL COLONOSCOPY N/A 04/15/2019 Procedure: COLONOSCOPY; Surgeon: Dina Johnson MD; Location: [facility] Hysterectomy / BSO secondary to bleeding Melanoma excision YAG CAPSULOTOMY OD (RIGHT EYE) Right 04/12/2013 YAG CAPSULOTOMY OS (LEFT EYE) Left Social History: Social History Tobacco Use Smoking status: Former Current packs/day: 0.00 Types: Cigarettes Quit date: 11/12/1991 Years since quittin.0 Smokeless tobacco: Never Substance Use Topics Alcohol use: No Family History: No family history on file. Allergies: Allergies Allergen Reactions Glucophage [Metformin] Other (See Comments) PN: H/A Put her in the hospital Insulin Detemir Hives Levofloxacin Other reaction(s): Bruising, Moderate, Active Metoprolol Other reaction(s): Respiratory Arrest PN: RESPIRATORY ARREST Amlodipine PN: rash Azithromycin Esterified Estrogens headaches Exenatide Lasix [Furosemide] Lisinopril Losartan Other reaction(s): Chest Pain PN: SOB Mercury Metoprolol Succinate fatigue, diaphoresis Naproxen fingernail color changes Naproxen Sodium cough Penicillins Pioglitazone Simvastatin fatigue Sitagliptin Clopidogrel Swelling Insulin Other reaction(s): Severe, Active Medications: Current Facility-Administered Medications Medication Dose Route Frequency Provider Last Rate Last Admin acetaminophen (TYLENOL) tablet 1,000 mg 1,000 mg Oral TID Ky Saldana MD albuterol (PROVENTIL HFA/VENTOLIN HFA) inhaler 2 puff Inhalation Q4H PRN Ky Saldana MD aspirin EC tablet 81 mg 81 mg Oral Daily Ky Saldana MD bisacodyl (DULCOLAX) suppository 10 mg 10 mg Rectal Daily PRN Ky Saldana MD calcium carbonate (TUMS) chewable tablet 1,000 mg 1,000 mg Oral 4x Daily PRN Ky Saldana MD glucose gel 15-30 g 15-30 g Oral Q15 Min PRN Ky Saldana MD Or dextrose 50 % injection 25-50 mL 25-50 mL Intravenous Q15 Min PRN Ky Saldana MD Or glucagon injection 1 mg 1 mg Subcutaneous Q15 Min PRN Ky Saldana MD donepezil (ARICEPT) tablet 10 mg 10 mg Oral At Bedtime Ky Saldana MD FLUoxetine (PROzac) capsule 10 mg 10 mg Oral Daily Ky Saldana MD fluticasone-vilanterol (BREO ELLIPTA) 200-25 MCG/ACT inhaler 1 puff 1 puff Inhalation Daily Ky Saldana MD And umeclidinium (INCRUSE ELLIPTA) 62.5 MCG/ACT inhaler 1 puff 1 puff Inhalation Daily Ky Saldana MD gabapentin (NEURONTIN) capsule 100 mg 100 mg Oral TID Ky Saldana MD 100 mg at 12/10/23 0836 [Held by provider] hydrochlorothiazide (HYDRODIURIL) tablet 25 mg 25 mg Oral Daily Ky Saldana MD HYDROmorphone (PF) (DILAUDID) injection 0.3 mg 0.3 mg Intravenous Q2H PRN Ky Saldana MD0.3 mg at 12/10/23 0252 insulin aspart (NovoLOG) injection (RAPID ACTING) 1-7 Units Subcutaneous TID AC Ky Saldana MD 1 Units at 12/10/23 0838 insulin aspart (NovoLOG) injection (RAPID ACTING) 1-5 Units Subcutaneous At Bedtime Ky Saldana MD insulin glargine (LANTUS PEN) injection 10 Units 10 Units Subcutaneous At Bedtime Ky Saldana MD ipratropium - albuterol 0.5 mg/2.5 mg/3 mL (DUONEB) neb solution 3 mL 3 mL Nebulization Q4H PRN Ky Saldana MD irbesartan (AVAPRO) tablet 150 mg 150 mg Oral BID Ky Saldana MD Lidocaine (LIDOCARE) 4 % Patch 1 patch 1 patch Transdermal Q24H Ky Saldana MD 1 patch at 12/10/23 0835 lidocaine (LMX4) cream Topical Q1H PRN Ky Saldana MD lidocaine 1 % 0.1-1 mL 0.1-1 mL Other Q1H PRN Ky Saldana MD methocarbamol (ROBAXIN) tablet 500 mg 500 mg Oral Q6H PRN Ky Saldana MD naloxone (NARCAN) injection 0.2 mg 0.2 mg Intravenous Q2 Min PRN Ky Saldana MD Or naloxone (NARCAN) injection 0.4 mg 0.4 mg Intravenous Q2 Min PRN Ky Saldana MD Or naloxone (NARCAN) injection 0.2 mg 0.2 mg Intramuscular Q2 Min PRN Ky Saldana MD Or naloxone (NARCAN) injection 0.4 mg 0.4 mg Intramuscular Q2 Min PRN Ky Saldana MD ondansetron (ZOFRAN ODT) ODT tab 4 mg 4 mg Oral Q6H PRN Ky Saldana MD Or ondansetron (ZOFRAN) injection 4 mg 4 mg Intravenous Q6H PRN Ky Saldana MD oxyCODONE IR (ROXICODONE) half-tab 2.5 mg 2.5 mg Oral Q4H PRN Ky Saldana MD Or oxyCODONE (ROXICODONE) tablet 5 mg 5 mg Oral Q4H PRN Ky Saldana MD polyethylene glycol (MIRALAX) Packet 17 g 17 g Oral BID PRN Ky Saldana MD QUEtiapine (SEROquel) tablet 25 mg 25 mg Oral At Bedtime Ky Saldana MD senna-docusate (SENOKOT-S/PERICOLACE) 8.6-50 MG per tablet 1 tablet 1 tablet Oral BID PRN Ky Saldana MD Or senna-docusate (SENOKOT-S/PERICOLACE) 8.6-50 MG per tablet 2 tablet 2 tablet Oral BID PRN Ky Saldana MD sodium chloride (PF) 0.9% PF flush 3 mL 3 mL Intracatheter Q8H Ky Saldana MD sodium chloride (PF) 0.9% PF flush 3 mL 3 mL Intracatheter q1 min prn Ky Saldana MD Current Facility-Administered Medications Medication Dose Route Frequency Provider Last Rate Last Admin acetaminophen (TYLENOL) tablet 1,000 mg 1,000 mg Oral TID Ky Saldana MD aspirin EC tablet 81 mg 81 mg Oral Daily Ky Saldana MD donepezil (ARICEPT) tablet 10 mg 10 mg Oral At Bedtime Ky Saldana MD FLUoxetine (PROzac) capsule 10 mg 10 mg Oral Daily Ky Saldana MD fluticasone-vilanterol (BREO ELLIPTA) 200-25 MCG/ACT inhaler 1 puff 1 puff Inhalation Daily Ky Saldana MD And umeclidinium (INCRUSE ELLIPTA) 62.5 MCG/ACT inhaler 1 puff 1 puff Inhalation Daily Ky Saldana MD gabapentin (NEURONTIN) capsule 100 mg 100 mg Oral TID Ky Saldana MD 100 mg at 12/10/23 0836 [Held by provider] hydrochlorothiazide (HYDRODIURIL) tablet 25 mg 25 mg Oral Daily Ky Saldana MD insulin aspart (NovoLOG) injection (RAPID ACTING) 1-7 Units Subcutaneous TID AC Ky Saldana MD 1 Units at 12/10/23 0838 insulin aspart (NovoLOG) injection (RAPID ACTING) 1-5 Units Subcutaneous At Bedtime Ky Saldana MD insulin glargine (LANTUS PEN) injection 10 Units 10 Units Subcutaneous At Bedtime Ky Saldana MD irbesartan (AVAPRO) tablet 150 mg 150 mg Oral BID Ky Saldana MD Lidocaine (LIDOCARE) 4 % Patch 1 patch 1 patch Transdermal Q24H Ky Saldana MD 1 patch at 12/10/23 0835 QUEtiapine (SEROquel) tablet 25 mg 25 mg Oral At Bedtime Ky Saldana MD sodium chloride (PF) 0.9% PF flush 3 mL 3 mL Intracatheter Q8H Ky Saldana MD Review of Systems: The 10 point review of systems is negative other than noted in the HPI. Physical Exam: BP 131/87 (BP Location: Right arm) Pulse 79 Temp 98.4 ?F (36.9 ?C) (Temporal) Resp 20 Ht 1.702 m (5' 7) Wt 142.4 kg (314 lb) SpO2 94% BMI 49.18 kg/m? General appearance: well-nourished, no apparent distress Head: Head is normocephalic and atraumatic. Eyes: Pupils are equal and round and reactive to light. Eyes atraumatic. EOM full, no proptosis, noconjunctival injection ENT: External ears normal. No external auditory canal discharge or bleeding. Nose without injury. Lips, tongue and oral mucosa without lacerations. No malocclusion. Trachea midline, no neck swelling or masses noted. Neck: No midline tenderness Chest: Clear to auscultation bilaterally. Heart with regular rate and rhythm, no murmurs. No palpable swelling, masses, ecchymosis, no crepitus, no visible deformity. Abdomen: Nondistended, soft, nontender to palpation Extremities: Bilateral upper extremities normal without injury, Full ROM of all major joints Bilateral lower extremities normal without injury, Full ROM of all major joints. Bilateral lower extremity edema. Neurologic: nonfocal, grossly intact times four extremities with normal strength, alert and oriented times three. Cranial nerves II through XII intact grossly. Psychiatric: mood and affect are appropriate. Skin:negative Data: WBC - WBC Date Value Ref Range Status 04/07/2020 7.5 4.0 - 11.0 10e9/L Final WBC Count Date Value Ref Range Status 12/09/2023 6.9 4.0 - 11.0 10e3/uL Final ], HgB - Hemoglobin Date Value Ref Range Status 12/09/2023 13.1 11.7 - 15.7 g/dL Final 04/07/2020 12.2 11.7 - 15.7 g/dL Final ] Liver Function Studies - Recent Labs Lab Test 12/09/23 2208 PROTTOTAL 6.8 ALBUMIN 4.0 BILITOTAL 0.4 ALKPHOS 84 AST 27 ALT 31 IMAGING: Results for orders placed or performed during the hospital encounter of 12/09/23 CT Chest/Abdomen/Pelvis w Contrast Narrative EXAM: CT CHEST, ABDOMEN AND PELVIS WITH CONTRAST LOCATION: [facility] DATE/TIME: 12/09/2023 11:27 PM CDT INDICATION: Fall. Left-sided pain and shortness of breath. COMPARISON: 07/14/2022 - CT chest. 04/07/2020 - CT chest, abdomen and pelvis. TECHNIQUE: CT scan of the chest, abdomen, and pelvis was performed following injection of IV contrast. Multiplanar reformats were obtained. Dose reduction techniques were used. CONTRAST: 100 mL Isovue-370. FINDINGS: LUNGS AND PLEURA: A few curvilinear opacities in the lower lungs bilaterally, likely representing atelectasis. Small calcified granuloma in the left lung base. No pneumothorax. MEDIASTINUM/AXILLAE: Atherosclerotic calcification in the aorta. Mild cardiomegaly. Calcification in the region of the aortic and mitral valves. CORONARY ARTERY CALCIFICATION: Present. HEPATOBILIARY: Mild diffuse fatty infiltration of the liver. The gallbladder is not visualized. SPLEEN: A few tiny calcified granulomas in the spleen. PANCREAS: Unremarkable. ADRENAL GLANDS: 2.6 x 2.1 cm right adrenal nodule and 2.4 x 1.3 cm left adrenal nodule. These were both present on 04/07/2020 and therefore most likely represent adenomas. KIDNEYS/BLADDER: No suspicious renal lesions. BOWEL: Several colonic diverticula are present without evidence of diverticulitis. The appendix is not visualized. LYMPH NODES: Unremarkable. PELVIC ORGANS: No acute findings. MUSCULOSKELETAL: Nondisplaced acute fractures of the posterior aspects of the left 10th through 12th ribs. Bilateral shoulder arthroplasties. Old severe compression deformity of the L1 vertebral body. OTHER: None. Impression IMPRESSION: 1. Nondisplaced acute fractures of the posterior aspects of the left 10th through 12th ribs. No pneumothorax. 2. No other evidence of acute trauma in the chest, abdomen or pelvis. This note was created using voice recognition software. Undetected word substitutions or other errors may have occurred. Melly Maharaj MD documented in this encounter ED Notes * Cholo Knight RN - 12/10/2023 1:51 AM CDT [facility] ED Nurse Handoff Report ED Chief complaint: Fall and Rib Pain . ED Diagnosis: Final diagnoses: None Allergies: Allergies Allergen Reactions Glucophage [Metformin] Other (See Comments) PN: H/A Put her in the hospital Insulin Detemir Hives Levofloxacin Other reaction(s): Bruising, Moderate, Active Metoprolol Other reaction(s): Respiratory Arrest PN: RESPIRATORY ARREST Amlodipine PN: rash Azithromycin Esterified Estrogens headaches Exenatide Lasix [Furosemide] Lisinopril Losartan Other reaction(s): Chest Pain PN: SOB Mercury Metoprolol Succinate fatigue, diaphoresis Naproxen fingernail color changes Naproxen Sodium cough Penicillins Pioglitazone Simvastatin fatigue Sitagliptin Clopidogrel Swelling Insulin Other reaction(s): Severe, Active Code Status: DNR / DNI Activity level - Baseline/Home: independent. Activity Level - Current: assist of 1. Lift room needed: No. Bariatric: No [employer] Needed: No Isolation: No. Infection: Not Applicable. Respiratory status: Nasal cannula Vital Signs (within 30 minutes): Vitals: 12/09/23 2201 12/09/23 2300 12/09/23 2302 12/10/23 0029 BP: (!) 143/91 (!) 149/112 Pulse: 83 84 71 96 Resp: Temp: TempSrc: SpO2: 100% (!) 83% 92% 97% Weight: Height: Cardiac Rhythm: , Pain level: Patient confused: Yes. Patient Falls Risk: nonskid shoes/slippers when out of bed, arm band in place, patient and family education, and assistive device/personal items within reach. Elimination Status: Has voided Patient Report - Initial Complaint: rib pain. Focused Assessment: Cardiac (Adult)Cardiac WDL: .WDL except (recent dx of afib family aware. no anticoags due to frequent falls.)Cardiac Rhythm: Atrial fibrillation SA 2352 Musculoskeletal MusculoskeletalMusculoskeletal WDL: .WDL except (pain left sided ribs after fall.) SA 235 Neuro Cognitive Neuro CognitiveCognitive/Neuro/Behavioral WDL: .WDL exceptLevel of Consciousness: intermittent confusionArousal Level: opens eyes spontaneouslyOrientation: (poor historian of medical hx.)Speech: logical; spontaneous; clearMood/Behavior: calm; cooperative Pupils (CN II)Pupil Size Left: 3 mmPupil PERRLA: yesPupil Size Right: 3 mm SA 2352 Respiratory RespiratoryAirway WDL: WDL Respiratory WDLRespiratory WDL: .WDL except (RA sats lower pt on 2 L NC) Abnormal Results: Labs Ordered and Resulted from Time of ED Arrival to Time of ED Departure BASIC METABOLIC PANEL - Abnormal Result Value Sodium 138 Potassium 4.4 Chloride 98 Carbon Dioxide (CO2) 30 (*) Anion Gap 10 Urea Nitrogen 15.4 Creatinine 0.91 GFR Estimate 61 Calcium 8.7 (*) Glucose 176 (*) CBC WITH PLATELETS AND DIFFERENTIAL - Abnormal WBC Count 6.9 RBC Count 4.23 Hemoglobin 13.1 Hematocrit 41.3 MCV 98 MCH 31.0 MCHC 31.7 RDW 14.2 Platelet Count 188 % Neutrophils 80 % Lymphocytes 9 % Monocytes 10 % Eosinophils 1 % Basophils 0 % Immature Granulocytes 0 NRBCs per 100 WBC 0 Absolute Neutrophils 5.5 Absolute Lymphocytes 0.6 (*) Absolute Monocytes 0.7 Absolute Eosinophils 0.0 Absolute Basophils 0.0 Absolute Immature Granulocytes 0.0 Absolute NRBCs 0.0 INR - Normal INR 1.12 HEPATIC FUNCTION PANEL - Normal Protein Total 6.8 Albumin 4.0 Bilirubin Total 0.4 Alkaline Phosphatase 84 AST 27 ALT 31 Bilirubin Direct <0.20 LIPASE - Normal Lipase 17 TYPE AND SCREEN, ADULT ABO/RH(D) O POS Antibody Screen Negative SPECIMEN EXPIRATION DATE ABO/RH TYPE AND SCREEN CT Chest/Abdomen/Pelvis w Contrast Final Result IMPRESSION: 1. Nondisplaced acute fractures of the posterior aspects of the left 10th through 12th ribs. No pneumothorax. 2. No other evidence of acute trauma in the chest, abdomen or pelvis. Treatments provided: see MAR Family Comments: daughter at bedside OBS brochure/video discussed/provided to patient: Yes ED Medications: Medications morphine (PF) injection 4 mg (4 mg Intravenous $Given 12/09/232224) ondansetron (ZOFRAN) injection 4 mg (4 mg Intravenous $Given 12/09/232223) acetaminophen (TYLENOL) tablet 1,000 mg (1,000 mg Oral $Given 12/09/232222) iopamidol (ISOVUE-370) solution 100 mL (100 mLs Intravenous $Given 12/09/232317) sodium chloride 0.9 % bag 500mL for CT scan flush use (65 mLs Intravenous $Given 12/09/232318) Drips infusing: No For the majority of the shift this patient was Green. Interventions performed were none needed. Sepsis treatment initiated: No Cares/treatment/interventions/medications to be completed following ED care: continue plan of care ED Nurse Name: Carola Hair RN 12:49 AM RECEIVING UNIT ED HANDOFF REVIEW Above ED Nurse Handoff Report was reviewed: Yes Reviewed by: Cholo Knight RN on December 10, 2023 at 1:51 AM [facility] called the ED to inform them the note was read: Yes * Carola Hair RN - 12/09/2023 10:02 PM CDT Patient came from a facility by ambulance for 10/17 left sided rib pain. Had a fall early in the dayafter drinking some champagne. Fell in the kitchen no LOC no head or neck pain. 18g PIV EMS gave 25mcg fentanyl. O2 on RA 90 ems placed pt on 4 L NC. Hx of COPD HTN, CHF and DM. * Austin Reardon MD - 12/09/2023 10:01 PM CDT Emergency Department Note History of Present Illness Chief Complaint Fall and Rib Pain HPI Alyx Sarmiento is a 88 year old female with a history of breast cancer, CVA, CHF, COPD, CAD, hypertension, hyperlipidemia, melanoma of the skin, and type 2 diabetes who presents to the Emergency Department for rib pain in the context of a fall. The patient was in the kitchen this afternoon when she fell over and hit her left side. The patient says today was a normal day and she did not feel dizzy or faint before falling. She also denies loss of consciousness with this fall. She denies any head injury or headache. EMS responded and did not bring the patient to the ED, but she now presents due to increased pain in her lower left ribs. She says it hurts to breathe and she has shortness of breath which is not normal for her. She denies weakness, numbness or tingling in her appendages, or pain to the head, neck, back, chest, legs, arms, or abdomen. Of note, the patient says she has leg swelling at baseline. The care center she lives at called and noted she had an empty bottle of wine in her apartment. Unclear if she drank alcohol today. Independent Historian None Review of External Notes None Past Medical History Medical History and Problem List Breast cancer Carpal tunnel syndrome CVA CHF Cognitive impairment COPD CAD Diverticulitis Hypertension Hyperlipidemia Melanoma of the skin Osteoarthritis Type 2 diabetes Medications Albuterol Donepezil FLUoxetine Fluticasone-salmeterol Gabapentin Hydrochlorothiazide Insulin glargine Irbesartan Tiotropium Surgical History Breast lumpectomy Cholecystectomy Colectomy subtotal Bilateral cataract IOL, RT/LT Hysterectomy with BSO Melanoma excision Bilateral YAG capsulotomy Physical Exam Patient Vitals for the past 24 hrs: BP Temp Temp src Pulse Resp SpO2 Height Weight 12/10/23 0210 -- -- -- -- -- 100 % -- -- 12/10/23 0135 (!) 156/127 -- -- -- -- 99 % -- -- 12/10/23 0105 (!) 156/94 -- -- -- -- 94 % -- -- 12/10/23 0029 (!) 149/112 -- -- 96 -- 97 % -- -- 12/09/23 230 -- -- -- 71 -- 92 % -- -- 12/09/232299 -- -- -- 84 -- (!) 83 % -- -- 12/09/232200 (!) 143/91 -- -- 83 -- 100 % -- -- 12/09/232199 (!) 155/147 99 ?F (37.2 ?C) Oral 76 22 100 % 1.702 m (5' 7) 142.4 kg (314 lb) Physical Exam General: Nontoxic. Appears chronically unwell. Head: Scalp, face, and head appear normal, atraumatic non tender to palpation Eyes: Pupils are equal, round, reactive to light EOMI, no nystagmus Conjunctivae non-injected and sclerae white ENT: The external nose is normal Pinnae are normal Neck: Normal range of motion. Cervical spine nontender, no stepoffs There is no rigidity noted Trachea is in the midline CV: Regular rate and irregularly irregular rhythm Normal S1/S2, no S3/S4 No murmur or rub. Radial pulses 2+ bilaterally. Resp: Lungs are clear and equal bilaterally Mild tachypnea Mild increased work of breathing No rales, wheezing, or rhonchi GI: Abdomen is soft, obese, no rigidity or guarding No distension, or mass Mild LUQ tenderness. No rebound tenderness MS: Normal muscular tone. Full painless ROM of all extremities. Extremities non tender to palpationand atraumatic. Symmetric motor strength Chronic bilateral lower extremity edema Skin: Intertrigo bilateral groins and under the abdominal pannus. 5cm area of ecchymosis to the LLQabdminal wall. No other rash or acute skin lesions noted Neuro: A&Ox3, GCS 15 CN II - XII intact Speech clear, fluent, and normal Strength 5/5 and symmetric in bilateral upper and lower extremities. SILT throughout. No ankle clonus No tremor. No meningismus Psych: Normal affect. Appropriate interactions. Diagnostics Lab Results Labs Ordered and Resulted from Time of ED Arrival to Time of ED Departure BASIC METABOLIC PANEL - Abnormal Result Value Sodium 138 Potassium 4.4 Chloride 98 Carbon Dioxide (CO2) 30 (*) Anion Gap 10 Urea Nitrogen 15.4 Creatinine 0.91 GFR Estimate 61 Calcium 8.7 (*) Glucose 176 (*) CBC WITH PLATELETS AND DIFFERENTIAL - Abnormal WBC Count 6.9 RBC Count 4.23 Hemoglobin 13.1 Hematocrit 41.3 MCV 98 MCH 31.0 MCHC 31.7 RDW 14.2 Platelet Count 188 % Neutrophils 80 % Lymphocytes 9 % Monocytes 10 % Eosinophils 1 % Basophils 0 % Immature Granulocytes 0 NRBCs per 100 WBC 0 Absolute Neutrophils 5.5 Absolute Lymphocytes 0.6 (*) Absolute Monocytes 0.7 Absolute Eosinophils 0.0 Absolute Basophils 0.0 Absolute Immature Granulocytes 0.0 Absolute NRBCs 0.0 INR - Normal INR 1.12 HEPATIC FUNCTION PANEL - Normal Protein Total 6.8 Albumin 4.0 Bilirubin Total 0.4 Alkaline Phosphatase 84 AST 27 ALT 31 Bilirubin Direct <0.20 LIPASE - Normal Lipase 17 TYPE AND SCREEN, ADULT ABO/RH(D) O POS Antibody Screen Negative SPECIMEN EXPIRATION DATE ABO/RH TYPE AND SCREEN Imaging CT Chest/Abdomen/Pelvis w Contrast Final Result IMPRESSION: 1. Nondisplaced acute fractures of the posterior aspects of the left 10th through 12th ribs. No pneumothorax. 2. No other evidence of acute trauma in the chest, abdomen or pelvis. EKG ECG results from 12/09/23 EKG 12-lead, tracing only Value Systolic Blood Pressure Diastolic Blood Pressure Ventricular Rate 83 Atrial Rate UT Interval QRS Duration 90 QT 392 QTc 460 P [place] R AXIS 62 T [place] 91 Interpretation ECG Atrial fibrillation Abnormal ECG When compared with ECG of 14-Jul-2022 04:40, Atrial fibrillation has replaced Sinus rhythm Nonspecific T wave abnormality no longer evident in Inferior leads Interpretation done by me at 2228 Independent Interpretation None ED Course Medications Administered Medications morphine (PF) injection 4 mg (4 mg Intravenous $Given 12/09/235) ondansetron (ZOFRAN) injection 4 mg (4 mg Intravenous $Given 12/09/232223) sodium chloride 0.9% BOLUS 500 mL (500 mLs Intravenous $New Bag 12/10/23 0204) acetaminophen (TYLENOL) tablet 1,000 mg (1,000 mg Oral $Given 12/09/23 2223) iopamidol (ISOVUE-370) solution 100 mL (100 mLs Intravenous $Given 12/09/23 2318) sodium chloride 0.9 % bag 500mL for CT scan flush use (65 mLs Intravenous $Given 12/09/23 2319) Procedures Procedures Discussion of Management See below ED Course ED Course as of 12/10/23 0214 e Dec 09, [id number] I evaluated the patient, obtained history, and performed a physical exam as detailed above. Wed Dec 10, 2023 0108 Patient updated regarding findings and plan of care. 0110 Case discussed with the hospitalist, Dr. Saldana Who accepts the patient for admission to the hospital. Additional Documentation None Medical Decision Making / Diagnosis [facility] Diagnoses: None MIPS None MDM Alyx Sarmiento is a 88 year old female who presents with left thoracoabdominal pain after a mechanical fall at home. She denies any head injury. On my evaluation she is hemodynamically stable with no focal neurologic deficits. She was found to be hypoxic on room air requiring 2 L of oxygen by nasal cannula. No significant increased work of breathing. Patient has a history of COPD is but is not oxygen dependent. No evidence of any injuries to the extremities. CT of the chest abdomen pelvis was obtained which reveals fractures of the left ribs 10 through 12. No pneumothorax, hemothorax, solid organ injury, hemoperitoneum or any other acute traumatic findings. EKG shows atrial fibrillation. Patient is not anticoagulated but takes an aspirin. Laboratory studies are otherwise reassuring. No leukocytosis, anemia, renal or liver dysfunction. Coagulation studies are normal. Given her rib fractures patient continued to have shallow respirations with likely underlying atelectasis as a cause for her hypoxia. She will require admission to the hospital for ongoing management of pain, pulmonary toilet and treatment of her rib fractures. The case was discussed with the hospitalist and the patientwas admitted in stable condition. Disposition The patient was admitted to the hospital. Diagnosis ICD-10-CM 1. Closed fracture of multiple ribs of left side, initial encounter S22.42XA 2. Shortness of breath R06.02 3. Acute respiratory failure with hypoxia (H) J96.01 Scribe Disclosure: Margaret Vogel, am serving as a scribe at 10:51 PM on 12/09/2023 to document services personally performed by Austin Reardon MD based on my observations and the provider's statements to me. Austin Reardon MD 12/10/23 0216 * Zhang Foster RN - 12/09/2023 9:54 PM CDT Bed: ED03 Expected date: Expected time: Means of arrival: Comments: [id number] documented in this encounter Miscellaneous Notes * Plan of Care - Bryanna Batres PT - 12/11/2023 4:32 PM CDT Physical Therapy Discharge Summary Reason for therapy discharge: Discharged to home with home therapy. Progress towards therapy goal(s). See goals on Care Plan in Epic electronic health record for goal details. Goals partially met, did need min A from lower surface, but has higher toilet at home. Therapy recommendation(s): Continued therapy is recommended. Rationale/Recommendations: Pt is currently below baseline for funtional mobility. Pt requiring SBA and 4WW for ambulation and STS, but did require Emeli for [place] transfer likely due to height of toliet. Pt lives in [facility] and notes having assitance if needed for transfers, IADLs. Pt will likely meet all goals in PT pending pain management. Recomend continued assist at home for previously given needs and Home PT to continue to work on strength and safety at home. * Plan of Care - Florence Arango RN - 12/11/2023 4:13 PM CDT Goal Outcome Evaluation: Pt was discharged to [facility] with daughter via wheelchair transportation. All pt's belongings were returned to pt. Discharged instructions reviewed, education provided to pt and daughter. Questions answered, pt and daughter understood education and in agreement with teaching. * Plan of Care - Mireya Lester RN - 12/11/2023 4:08 PM CDT Goal Outcome Evaluation: Overall Patient Progress: improvingOverall Patient Progress: improving Pt alert, confused at times. On 1L o2. Up with assist of 1 gait belt and walker. Lidocaine patch toleft ribs. Scheduled tylenol for pain. Voiding well. Tolerating diet. Plan is to go back to [facility] today. Problem: Adult Inpatient Plan of Care Goal: Plan of Care Review Description: The Plan of Care Review/Shift note should be completed every shift. The Outcome Evaluation is a brief statement about your assessment that the patient is improving, declining, or no change. This information will be displayed automatically on your shift note. Outcome: Progressing Flowsheets (Taken 12/11/2023 1608) Overall Patient Progress: improving Goal: Patient-Specific Goal (Individualized) Description: You can add care plan individualizations to a care plan. Examples of Individualizationmight be: Parent requests to be called daily at 9am for status, I have a hard time hearing out of my right ear, or Do not touch me to wake me up as it startles me. Outcome: Progressing Goal: Absence of Hospital-Acquired Illness or Injury Outcome: Progressing Intervention: Identify and Manage Fall Risk Recent Flowsheet Documentation Taken 12/11/2023 1000 by Mireya Lester RN Safety Promotion/Fall Prevention: activity supervised room door open room near nurse's station room organization consistent safety round/check completed Intervention: Prevent and Manage VTE (Venous Thromboembolism) Risk Recent Flowsheet Documentation Taken 12/11/2023 1000 by Mireya Lester RN VTE Prevention/Management: SCDs on (sequential compression devices) Intervention: Prevent Infection Recent Flowsheet Documentation Taken 12/11/2023 1000 by Mireya Lester RN Infection Prevention: rest/sleep promoted hand hygiene promoted Goal: Optimal Comfort and Wellbeing Outcome: Progressing Goal: Readiness for Transition of Care Outcome: Progressing Problem: Pain Acute Goal: Optimal Pain Control and Function Outcome: Progressing Intervention: Prevent or Manage Pain Recent Flowsheet Documentation Taken 12/11/2023 1000 by Mireya Lester RN Medication Review/Management: medications reviewed Intervention: Optimize Psychosocial Wellbeing Recent Flowsheet Documentation Taken 12/11/2023 1000 by Mireya Lester RN Supportive Measures: active listening utilized Problem: Infection Goal: Absence of Infection Signs and Symptoms Outcome: Progressing Problem: Fall Injury Risk Goal: Absence of Fall and Fall-Related Injury Outcome: Progressing Intervention: Identify and Manage Contributors Recent Flowsheet Documentation Taken 12/11/2023 1000 by Mireya Lester RN Medication Review/Management: medications reviewed Intervention: Promote Injury-Free Environment Recent Flowsheet Documentation Taken 12/11/2023 1000 by Mireya Lester RN Safety Promotion/Fall Prevention: activity supervised room door open room near nurse's station room organization consistent safety round/check completed Problem: Orthopaedic Fracture Goal: Absence of Bleeding Outcome: Progressing Goal: Bowel Elimination Outcome: Progressing Goal: Absence of Embolism Signs and Symptoms Outcome: Progressing Intervention: Prevent or Manage Embolism Risk Recent Flowsheet Documentation Taken 12/11/2023 1000 by Mireya Lester RN VTE Prevention/Management: SCDs on (sequential compression devices) Goal: Fracture Stability Outcome: Progressing Goal: Optimal Functional Ability Outcome: Progressing Goal: Absence of Infection Signs and Symptoms Outcome: Progressing Goal: Effective Tissue Perfusion Outcome: Progressing Goal: Optimal Pain Control and Function Outcome: Progressing Goal: Effective Oxygenation and Ventilation Outcome: Progressing * Plan of Care - Rom Guo RN - 12/11/2023 6:30 AM CDT Goal Outcome Evaluation: Plan of Care Reviewed With: patient Overall Patient Progress: improving Outcome Evaluation: Up with A2 GB/walker. Pain on chest area improved. IS promoted. Intermittently confused. B/115. O2 at 2LPM via oxymask. Plan for discharge to [facility] with increased services. Problem: Adult Inpatient Plan of Care Goal: Plan of Care Review Description: The Plan of Care Review/Shift note should be completed every shift. The Outcome Evaluation is a brief statement about your assessment that the patient is improving, declining, or no change. This information will be displayed automatically on your shift note. Outcome: Progressing Flowsheets (Taken 12/11/2023 0335) Outcome Evaluation: Up with A2 GB/walker. Pain on chest area improved. IS promoted. Intermittently confused. B/115. O2 at 2LPM via oxymask. Plan for discharge to [facility] with increased services. Plan of Care Reviewed With: patient Overall Patient Progress: improving Goal: Patient-Specific Goal (Individualized) Description: You can add care plan individualizations to a care plan. Examples of Individualizationmight be: Parent requests to be called daily at 9am for status, I have a hard time hearing out of my right ear, or Do not touch me to wake me up as it startles me. Outcome: Progressing Goal: Absence of Hospital-Acquired Illness or Injury Outcome: Progressing Intervention: Identify and Manage Fall Risk Recent Flowsheet Documentation Taken 12/10/20232014 by Rom Guo RN Safety Promotion/Fall Prevention: activity supervised room door open room near nurse's station room organization consistent safety round/check completed Intervention: Prevent Skin Injury Recent Flowsheet Documentation Taken 12/10/20232014 by Rom Guo RN Body Position: supine, head elevated Skin Protection: adhesive use limited Device Skin Pressure Protection: absorbent pad utilized/changed adhesive use limited Intervention: Prevent and Manage VTE (Venous Thromboembolism) Risk Recent Flowsheet Documentation Taken 12/10/20232014 by Rom Guo RN VTE Prevention/Management: SCDs on (sequential compression devices) Intervention: Prevent Infection Recent Flowsheet Documentation Taken 12/10/20232014 by Rom Guo RN Infection Prevention: rest/sleep promoted hand hygiene promoted Goal: Optimal Comfort and Wellbeing Outcome: Progressing Goal: Readiness for Transition of Care Outcome: Progressing Problem: Pain Acute Goal: Optimal Pain Control and Function Outcome: Progressing Intervention: Prevent or Manage Pain Recent Flowsheet Documentation Taken 12/10/20232014 by Rom Guo RN Bowel Elimination Promotion: adequate fluid intake promoted Medication Review/Management: medications reviewed Intervention: Optimize Psychosocial Wellbeing Recent Flowsheet Documentation Taken 12/10/20232014 by Rom Guo RN Supportive Measures: active listening utilized Problem: Fall Injury Risk Goal: Absence of Fall and Fall-Related Injury Outcome: Progressing Intervention: Identify and Manage Contributors Recent Flowsheet Documentation Taken 12/10/20232014 by Rom Guo RN Medication Review/Management: medications reviewed Intervention: Promote Injury-Free Environment Recent Flowsheet Documentation Taken 12/10/20232014 by Rom Guo RN Safety Promotion/Fall Prevention: activity supervised room door open room near nurse's station room organization consistent safety round/check completed Problem: Orthopaedic Fracture Goal: Absence of Bleeding Outcome: Progressing Goal: Bowel Elimination Outcome: Progressing Intervention: Promote Effective Bowel Elimination Recent Flowsheet Documentation Taken 12/10/20232014 by Rom Guo RN Bowel Elimination Promotion: adequate fluid intake promoted Goal: Absence of Embolism Signs and Symptoms Outcome: Progressing Intervention: Prevent or Manage Embolism Risk Recent Flowsheet Documentation Taken 12/10/20232014 by Rom Guo RN VTE Prevention/Management: SCDs on (sequential compression devices) Goal: Fracture Stability Outcome: Progressing Goal: Optimal Functional Ability Outcome: Progressing Intervention: Optimize Functional Ability Recent Flowsheet Documentation Taken 12/10/20232014 by Rom Guo RN Activity Management: activity adjusted per tolerance Positioning/Transfer Devices: pillows in use Goal: Absence of Infection Signs and Symptoms Outcome: Progressing Intervention: Prevent or Manage Infection Recent Flowsheet Documentation Taken 12/10/20232014 by Rom Guo RN Infection Management: aseptic technique maintained Goal: Effective Tissue Perfusion Outcome: Progressing Goal: Optimal Pain Control and Function Outcome: Progressing Goal: Effective Oxygenation and Ventilation Outcome: Progressing Intervention: Promote Airway Secretion Clearance Recent Flowsheet Documentation Taken 12/10/20232220 by Rom Guo RN Cough And Deep Breathing: done with encouragement Taken 12/10/20232014 by Rom Guo RN Cough And Deep Breathing: done with encouragement Activity Management: activity adjusted per tolerance Taken 12/10/20231956 by Rom Guo RN Cough And Deep Breathing: done with encouragement Intervention: Optimize Oxygenation and Ventilation Recent Flowsheet Documentation Taken 12/10/20232014 by Rom Guo RN Head of Bed (HOB) Positioning: HOB at 20-30 degrees * Plan of Care - Pinky Padilla RN - 12/10/2023 6:37 PM CDT Goal Outcome Evaluation: Plan of Care Reviewed With: patient Overall Patient Progress: improvingOverall Patient Progress: improving Outcome Evaluation: VSS. Pt A/O with intermittent confusion. Pt has L rib fx, complained of pain 6/10. Denied n/v. IS done q2h. Currently up in chair, pt stated that she usually sleeps in her recliner. Ate 100% of her meals. Ambulated to bathroom using walker and gaitbelt with Ax2. BS checked, insulin given per order. Saline locked. Redness noted on abdominal folders and buttocks. Scattered scabson back and buttocks. * Provider Notification - Pinky Padilla RN - 12/10/2023 1:20 PM CDT This commercial lines underwriter send an FYI notification to provider regarding trigger warning for DB. It was about Ribfracture decomposition because her IS has been between 500- 750. She is currently uncomfortable rating pain 6/10, mildly confused. Alert and oriented to self and time. Disoriented to time and situation. * Pharmacy-Admission Medication History - Shyla De Dios [facility] - 12/10/2023 10:57 AM CDT Pharmacist Admission Medication History Admission medication history is complete. The information provided in this note is only as accurateas the sources available at the time of the update. Information Source(s): Facility ([place]/) medication list/MAR and CareEverywhere/SureScripts via N/A Walker Luis [facility] Pertinent Information: none Changes made to [facility] medication list: Added: oxybutynin, Calcium, Vitamin D, Deleted: ASA, Advair, albuterol inhaler, lidocaine patch, Spiriva, gabapentin Changed: donepezil dose Medication History Completed By: Shyla De Dios, PharmD, [facility] Medication History Pharmacist [phone] December 10, 2023 [facility] Med List Medication Sig Last Dose acetaminophen (TYLENOL) 500 MG tablet Take 1,000 mg by mouth every 8 hours as needed for mild pain.prn at prn calcium carbonate (OS-OLAF) 500 MG tablet Take 1 tablet by mouth daily. 12/09/2023 at am cholecalciferol (VITAMIN D3) 25 mcg (1000 units) capsule Take 1 capsule by mouth daily. 12/09/2023 at am Coenzyme Q10 300 MG CAPS Take 1 tablet by mouth daily 12/09/2023 at am cyanocolbalamin (VITAMIN B-12) 500 MCG tablet Take 500 mcg by mouth daily 12/09/2023 at am donepezil (ARICEPT) 10 MG tablet Take 10 mg by mouth at bedtime. 12/08/2023 at hs Elemental iron 65 mg Vitamin C 125 mg (VITRON C) 65-125 MG TABS tablet Take 1 tablet by mouth everyother day. Past Week at - FLUoxetine (PROZAC) 10 MG capsule Take 10 mg by mouth daily 12/09/2023 at am hydrochlorothiazide (HYDRODIURIL) 25 MG tablet Take 25 mg by mouth daily. 12/09/2023 at am insulin glargine (LANTUS PEN) 100 UNIT/ML pen Inject 10 Units Subcutaneous At Bedtime 12/08/2023 at pm irbesartan (AVAPRO) 150 MG tablet Take 150 mg by mouth 2 times daily. 12/09/2023 at am oxyBUTYnin ER (DITROPAN XL) 10 MG 24 hr tablet Take 10 mg by mouth daily. 12/09/2023 at afternoon QUEtiapine (SEROQUEL) 25 MG tablet Take 25 mg by mouth at bedtime. 12/08/2023 at pm TRELEGY ELLIPTA 200-62.5-25 MCG/ACT oral inhaler Inhale 1 puff into the lungs daily. 12/09/2023 at am * Plan of Care - Cholo Knight RN - 12/10/2023 4:14 AM CDT Goal Outcome Evaluation: Plan of Care Reviewed With: patient Overall Patient Progress: no changeOverall Patient Progress: no change Arrived from ED at 0230. Requested daughter to be notified of arrival to the unit. Daughter aware. PRN dilaudid 0.3 mg given at 0252 2.5 LO2 NC Plan tbd Problem: Adult Inpatient Plan of Care Goal: Plan of Care Review Description: The Plan of Care Review/Shift note should be completed every shift. The Outcome Evaluation is a brief statement about your assessment that the patient is improving, declining, or no change. This information will be displayed automatically on your shift note. Outcome: Progressing Flowsheets (Taken 12/10/2023412) Plan of Care Reviewed With: patient Overall Patient Progress: no change Goal: Patient-Specific Goal (Individualized) Description: You can add care plan individualizations to a care plan. Examples of Individualizationmight be: Parent requests to be called daily at 9am for status, I have a hard time hearing out of my right ear, or Do not touch me to wake me up as it startles me. Outcome: Progressing Goal: Absence of Hospital-Acquired Illness or Injury Outcome: Progressing Intervention: Identify and Manage Fall Risk Recent Flowsheet Documentation Taken 12/10/2023299 by Cholo Knight RN Safety Promotion/Fall Prevention: activity supervised room door open room near nurse's station room organization consistent safety round/check completed Intervention: Prevent Skin Injury Recent Flowsheet Documentation Taken 12/10/2023299 by Cholo Knight RN Skin Protection: adhesive use limited Device Skin Pressure Protection: absorbent pad utilized/changed adhesive use limited Taken 12/10/2023251 by Cholo Knight RN Body Position: supine, head elevated Intervention: Prevent and Manage VTE (Venous Thromboembolism) Risk Recent Flowsheet Documentation Taken 12/10/2023299 by Cholo Knight RN VTE Prevention/Management: SCDs on (sequential compression devices) Intervention: Prevent Infection Recent Flowsheet Documentation Taken 12/10/2023299 by Cholo Knight RN Infection Prevention: rest/sleep promoted hand hygiene promoted Goal: Optimal Comfort and Wellbeing Outcome: Progressing Intervention: Monitor Pain and Promote Comfort Recent Flowsheet Documentation Taken 12/10/2023251 by Cholo Knight nursing home assistant Interventions: medication (see MAR) Goal: Readiness for Transition of Care Outcome: Progressing Intervention: Mutually Develop Transition Plan Recent Flowsheet Documentation Taken 12/10/2023 0300 by Cholo Knight, RN Equipment Currently Used at Home: walker, rolling documented in this encounter Plan of Treatment Scheduled Referrals Name Type Priority Associated Diagnoses Orde r Schedule Home Care Referral Referral Routine: Next available opening Closed fracture of multiple ribs, unspecified laterality, sequela Fall, initial encounter Ordered: 12/11/2023 documented as of this encounter Procedures Procedure Name Priority Date/Time Associated Diagnosis Comments GLUCOSE BY METER Routine 12/11/2023 12:4 4 PM CDT BASIC METABOLIC PANEL Routine 12/11/2023 7:08 AM CDT CBC WITH PLATELETS Routine 12/11/2023 7: 08 AM CDT GLUCOSE BY METER Routine 12/11/2023 2:23 AM CDT GLUCOSE BY METER Routine 12/10/2023 9:54 PM CDT GLUCOSE BY METER Routine 12/10/2023 4:40 PM CDT GLUCOSE BY METER Routine 12/10/2023 12:5 5 PM CDT XR CHEST PORT 1 VIEW Routine 12/10/2023 9:06 AM CDT GLUCOSE BY METER Routine 12/10/2023 8:11 AM CDT GLUCOSE Routine 12/10/2023 6:40 AM CDT BASIC METABOLIC PANEL Routine 12/10/2023 6:40 AM CDT GLUCOSE BY METER Routine 12/10/2023 2:[address] CHEST/ABDOMEN/PELVIS W CONTRAST STAT 12/09/2023 11:27 PM CDT TYPE AND SCREEN, ADULT STAT 12/09/2023 10:29 PM CDT ABO/RH TYPE AND SCREEN STAT 12/09/2023 10:29 PM CDT EKG 12-LEAD, TRACING ONLY STAT 12/09/2023 10:18 PM CDT EXTRA TUBE STAT 12/09/2023 10:08 PM CDT EXTRA BLUE TOP TUBE STAT 12/09/2023 1 0:08 PM CDT CBC WITH PLATELETS AND DIFFERENTIAL STAT 12/09/2023 10:08 PM CDT CBC WITH PLATELETS & DIFFERENTIAL STAT 12/09/2023 10:08 PM CDT INR STAT 12/09/2023 10:08 PM CDT LIPASE STAT 12/09/2023 10:08 PM CDT HEPATIC FUNCTION PANEL STAT 12/09/2023 10:08 PM CDT HEMOGLOBIN A1C Add-On 12/09/2023 10:08 PM CDT BASIC METABOLIC PANEL STAT 12/09/2023 10:08 PM CDT documented in this encounter Results * (ABNORMAL) Glucose by meter (12/11/2023 12:44 PM CDT) [facility] Signature GLUCOSE BY METER POCT 151(H) 70 - 99 mg/dL 12/11/2023 12:50 PM CDT [facility] LABORATORY POC Blood, Capillary BLOOD SPECIMEN / Unknown 12/11/2023 12:44 PM CDT 12/11/2023 12:50 PM CDT [facility] Final Result LABORATORY POC [facility] Acute Care Lab [address] Lab (1st floor, no room number) [place] [address], [facility] * (ABNORMAL) Basic metabolic panel (12/11/2023 7:08 AM CDT) Sodium 137 135 - 145 mmol/L 12/11/2023 7:43 AM CDT [facility] LABORATORY Potassium 4.4 3.4 - 5.3 mmol/L 12/11/2023 7:43 AM CDT [facility] LABORATORY Chloride 98 98 - 107 mmol/L 12/11/2023 7:43 AM CDT [facility] LABORATORY Carbon Dioxide (CO2) 28 22 - 29 mmol/L 12/11/2023 7:43 AM CDT [facility] LABORATORY Anion Gap 11 7 - 15 mmol/L 12/11/2023 7:43 AM CDT [facility] LABORATORY Urea Nitrogen 18.5 8.0 - 23.0 mg/dL 12/11/2023 7:43 AM CDT [facility] LABORATORY Creatinine 0.74 0.51 - 0.95 mg/dL 12/11/2023 7:43 AM CDT [facility] LABORATORY GFR Estimate 78 >60 mL/min/1.7 3m2 12/11/2023 7:43 AM CDT [facility] LABORATORY Comment:eGFR calculated usin g 2020 CKD-EPI equation. Calcium 8.6(L) 8.8 - 10.4 mg/dL 12/11/2023 7:43 AM CDT [facility] LABORATORY Comment:Reference intervals for this test were updated on 09/23/2023 to reflect our healthy population more accurately. There may be differences in the flagging of prior results with similar values performed with this method. Those prior results can be interpreted in the context of the updated reference intervals. Glucose 98 70 - 99 mg/dL 12/11/2023 7:43 AM CDT LABORATORY Blood STRUCTURE OF RIGHT HAND / Unknown Venipuncture / Unknown 12/11/2023 7:08 AM CDT 12/11/2023 7:16 AM CDT Diallo Holley DO LAB - BLOOD ORDERABLES Fi nal Result LABORATORY [facility] Acute Care Lab [address] Lab (1st floor, no room number) [place] [address] * (ABNORMAL) CBC with platelets (12/11/2023 7:08 AM CDT) WBC Count 6.0 4.0 - 11.0 10e3/uL 12/11/2023 7:40 AM CDT RH LABORATORY RBC Count 4.32 3.80 - 5.20 10e6/uL 12/11/2023 7:40 AM CDT [facility] LABORATORY Hemoglobin 13.5 11.7 - 15.7 g/dL 12/11/2023 7:40 AM CDT [facility] LABORATORY Hematocrit 44.6 35.0 - 47.0 % 12/11/2023 7:40 AM CDT [facility] LABORATORY MCV 103(H) 78 - 100 fL 12/11/2023 7:40 AM CDT [facility] LABORATORY MCH 31.3 26.5 - 33.0 pg 12/11/2023 7:40 AM CDT [facility] LABORATORY MCHC 30.3(L) 31.5 - 36.5 g/dL 12/11/2023 7:40 AM CDT [facility] LABORATORY RDW 14.3 10.0 - 15.0 % 12/11/2023 7:40 AM CDT [facility] LABORATORY Platelet Count 175 150 - 450 10e3/uL 12/11/2023 7:40 AM CDT LABORATORY Blood STRUCTURE OF RIGHT HAND / Unknown Venipuncture / Unknown 12/11/2023 7:08 AM CDT 12/11/2023 7:16 AM CDT us Diallo Holley DO LAB - BLOOD ORDERABLES Fi nal Result RH LABORATORY [facility] Acute Care Lab [address] Lab (1st floor, no room number) [place] [address], [facility] * (ABNORMAL) Glucose by meter (12/11/2023 2:23 AM CDT) GLUCOSE BY METER POCT 115(H) 70 - 99 mg/dL 12/11/2023 2:30 AM CDT RH LABORATORY POC Blood, Capillary BLOOD SPECIMEN / Unknown 12/11/2023 2:23 AM CDT 12/11/2023 2:30 AM CDT Ky Saldana MD LAB - BEAKER POCT Final Result LABORATORY [facility] Acute Care Lab [address] Lab (1st floor, no room number) [place] [address] * (ABNORMAL) Glucose by meter (12/10/2023 9:54 PM CDT) GLUCOSE BY METER POCT 119(H) 70 - 99 mg/dL 12/10/2023 10:01 PM CDT LABORATORY POC Blood, Capillary BLOOD SPECIMEN / Unknown 12/10/2023 9:54 PM CDT 12/10/2023 10:01 PM CDT Ky ROBERTS - JULIANA POCT Final Result LABORATORY [facility] Care Lab [address] Lab (1st floor, no room number) [place] [address], [facility] * (ABNORMAL) Glucose by meter (12/10/2023 4:40 PM CDT) GLUCOSE BY METER POCT 172(H) 70 - 99 mg/dL 12/10/2023 4:47 PM CDT LABORATORY POC Blood, Capillary BLOOD SPECIMEN / Unknown 12/10/2023 4:40 PM CDT 12/10/2023 4:47 PM CDT Ky ROBERTS - BEGONSALO POCT Final Result LABORATORY [facility] Care Lab [address] Lab (1st floor, no room number) [place] [address], [facility] * (ABNORMAL) Glucose by meter (12/10/2023 12:55 PM CDT) [facility] GLUCOSE BY METER POCT 140(H) 70 - 99 mg/dL 12/10/2023 1:02 PM CDT RH LABORATORY POC Blood, Capillary BLOOD SPECIMEN / Unknown 12/10/2023 12:55 PM CDT 12/10/2023 1:02 PM CDT Ky [facility]ana [facility] PO[facility] Final Result RH LABORATORY POC [facility] Acute Care Lab [address] Lab (1st floor, no room number) [place] [address], [facility] * XR Chest Port 1 View (12/10/2023 9:06 AM CDT) Anatomical Region Laterality Modality Chest Digital Radiogra phy Impressions 12/10/2023 2:00 PM CDT IMPRESSION: Stable enlargement of the cardiomediastinal silhouette. Left basilar atelectasis with questionable small left pleural effusion. No measurable pneumothorax is visualized. Known left rib fractures are better seen on recent CT. Bilateral shoulder arthroplasties are partially visualized. EUGENE GAYLE MD SYSTEM ID: ?[id number] Narrative 12/10/2023 2:00 PM CDT XR CHEST PORT 1 VIEW ? 12/10/2023 9:06 AM HISTORY: Trauma Patient with Rib Fracture(s) COMPARISON: CT 12/09/2023. Procedure Note Eugene Gayle MD - 12/10/2023 XR CHEST PORT 1 VIEW 12/10/2023 9:06 AM HISTORY: Trauma Patient with Rib Fracture(s) COMPARISON: CT 12/09/2023. IMPRESSION: Stable enlargement of the cardiomediastinal silhouette. Left basilar atelectasis with questionable small left pleural effusion. No measurable pneumothorax is visualized. Known left rib fractures are better seen on recent CT. Bilateral shoulder arthroplasties are partially visualized. EUGENE GAYLE MD SYSTEM ID: [id number] Ky Saldana MD IMG DIAGNOSTIC IMAGING O RDERABLES Final Result * (ABNORMAL) Glucose by meter (12/10/2023 8:11 AM CDT) GLUCOSE BY METER POCT 146(H) 70 - 99 mg/dL 12/10/2023 8:18 AM CDT LABORATORY POC Blood, Capillary BLOOD SPECIMEN / Unknown 12/10/2023 8:11 AM CDT 12/10/2023 8:18 AM CDT Ky Saldana MD LAB - BEAKER POCT Final Result LABORATORY POC [facility] Care Lab [address] [facility] Lab (1st floor, no room number) [address] [place] [address] * (ABNORMAL) Glucose (12/10/2023 6:40 AM CDT) Glucose 134(H) 70 - 99 mg/dL 12/10/2023 7:09 AM CDT LABORATORY Blood STRUCTURE OF RIGHT UPPER LIMB / Unknown Venipuncture / Unknown 12/10/2023 6:40 AM CDT 12/10/2023 6:43 AM CDT Ky Saldana MD LAB - BLOOD ORDERABLES F inal Result LABORATORY [facility] Care Lab [address] Lab (1st floor, no room number) [address] * (ABNORMAL) Basic metabolic panel (12/10/2023 6:40 AM CDT) Sodium 138 135 - 145 mmol/L 12/10/2023 7:09 AM CDT LABORATORY Potassium 4.1 3.4 - 5.3 mmol/L 12/10/2023 7:09 AM CDT LABORATORY Chloride 100 98 - 107 mmol/L 12/10/2023 7:09 AM CDT LABORATORY Carbon Dioxide (CO2) 29 22 - 29 mmol/L 12/10/2023 7:09 AM CDT RH LABORATORY Anion Gap 9 7 - 15 mmol/L 12/10/2023 7:09 AM CDT LABORATORY Urea Nitrogen 16.7 8.0 - 23.0 mg/dL 12/10/2023 7:09 AM CDT LABORATORY Creatinine 0.78 0.51 - 0.95 mg/dL 12/10/2023 7:09 AM CDT RH LABORATORY GFR Estimate 73 >60 mL/min/1.7 3m2 12/10/2023 7:09 AM CDT RH LABORATORY Comment:eGFR calculated usin 2020 CKD-EPI equation. Calcium 8.5(L) 8.8 - 10.4 mg/dL 12/10/2023 7:09 AM CDT RH LABORATORY Comment:Reference intervals for this test were updated on 09/23/2023 to reflect our healthy population more accurately. There may be differences in the flagging of prior results with similar values performed with this method. Those prior results can be interpreted in the context of the updated reference intervals. Glucose 134(H) 70 - 99 mg/dL 12/10/2023 7:09 AM CDT LABORATORY Blood STRUCTURE OF RIGHT UPPER LIMB / Unknown Venipuncture / Unknown 12/10/2023 6:40 AM CDT 12/10/2023 6:43 AM CDT Ky Saldana MD LAB - BLOOD ORDERABLES F inal Result LABORATORY [facility] Acute Care Lab [address] [facility] Lab (1st floor, no room number) [place] [address], [facility] * (ABNORMAL) Glucose by meter (12/10/2023 2:37 AM CDT) [facility] GLUCOSE BY METER POCT 152(H) 70 - 99 mg/dL 12/10/2023 2:44 AM CDT LABORATORY POC Blood, Capillary BLOOD SPECIMEN / Unknown 12/10/2023 2:37 AM CDT 12/10/2023 2:44 AM CDT Ky Saldana MD LAB - BEAKER POCT Final Result LABORATORY [facility] Acute Care Lab [address] [facility] Lab (1st floor, no room number) [place] [address], [facility] * CT Chest/Abdomen/Pelvis w Contrast (12/09/2023 11:27 PM CDT) Anatomical Region Laterality Modality Abdomen/Pelvis, Chest, SUBRA D CT BODY, UMP CT CHEST, UMP CT ABDOMEN PELVIS, RAD CT Computed Tomography 12/09/2023 11:2 7 PM CDT Impressions 12/09/2023 11:55 PM CDT IMPRESSION: 1. ?Nondisplaced acute fractures of the posterior aspects of the left 10th through 12th ribs. No pneumothorax. 2. ?No other evidence of acute trauma in the chest, abdomen or pelvis. Narrative 12/09/2023 11:55 PM CDT EXAM: CT CHEST, ABDOMEN AND PELVIS WITH CONTRAST LOCATION: [facility] DATE/TIME: 12/09/2023 11:27 PM CDT INDICATION: Fall. Left-sided pain and shortness of breath. COMPARISON: 07/14/2022 - CT chest. 04/07/2020 - CT chest, abdomen and pelvis. TECHNIQUE: CT scan of the chest, abdomen, and pelvis was performed following injection of IV contrast. Multiplanar reformats were obtained. Dose reduction techniques were used. CONTRAST: 100 mL Isovue-370. FINDINGS: LUNGS AND PLEURA: A few curvilinear opacities in the lower lungs bilaterally, likely representing atelectasis. Small calcified granuloma in the left lung base. No pneumothorax. MEDIASTINUM/AXILLAE: Atherosclerotic calcification in the aorta. Mild cardiomegaly. Calcification in the region of the aortic and mitral valves. CORONARY ARTERY CALCIFICATION: Present. HEPATOBILIARY: Mild diffuse fatty infiltration of the liver. The gallbladder is not visualized. SPLEEN: A few tiny calcified granulomas in the spleen. PANCREAS: Unremarkable. ADRENAL GLANDS: 2.6 x 2.1 cm right adrenal nodule and 2.4 x 1.3 cm left adrenal nodule. These were both present on 04/07/2020 and therefore most likely represent adenomas. KIDNEYS/BLADDER: No suspicious renal lesions. BOWEL: Several colonic diverticula are present without evidence of diverticulitis. The appendix is not visualized. LYMPH NODES: Unremarkable. PELVIC ORGANS: No acute findings. MUSCULOSKELETAL: Nondisplaced acute fractures of the posterior aspects of the left 10th through 12th ribs. Bilateral shoulder arthroplasties. Old severe compression deformity of the L1 vertebral body. OTHER: None. Procedure Note Jake Silva MD - 12/09/2023 EXAM: CT CHEST, ABDOMEN AND PELVIS WITH CONTRAST LOCATION: [facility] DATE/TIME: 12/09/2023 11:27 PM CDT INDICATION: Fall. Left-sided pain and shortness of breath. COMPARISON: 07/14/2022 - CT chest. 04/07/2020 - CT chest, abdomen and pelvis. TECHNIQUE: CT scan of the chest, abdomen, and pelvis was performedfollowing injection of IV contrast. Multiplanar reformats were obtained.Dose reduction techniques were used. CONTRAST: 100 mL Isovue-370. FINDINGS: LUNGS AND PLEURA: A few curvilinear opacities in the lower lungsbilaterally, likely representing atelectasis. Small calcified granuloma inthe left lung base. No pneumothorax. MEDIASTINUM/AXILLAE: Atherosclerotic calcification in the aorta. Mildcardiomegaly. Calcification in the region of the aortic and mitralvalves. CORONARY ARTERY CALCIFICATION: Present. HEPATOBILIARY: Mild diffuse fatty infiltration of the liver. Thegallbladder is not visualized. SPLEEN: A few tiny calcified granulomas in the spleen. PANCREAS: Unremarkable. ADRENAL GLANDS: 2.6 x 2.1 cm right adrenal nodule and 2.4 x 1.3 cm leftadrenal nodule. These were both present on 04/07/2020 and therefore mostlikely represent adenomas. KIDNEYS/BLADDER: No suspicious renal lesions. BOWEL: Several colonic diverticula are present without evidence ofdiverticulitis. The appendix is not visualized. LYMPH NODES: Unremarkable. PELVIC ORGANS: No acute findings. MUSCULOSKELETAL: Nondisplaced acute fractures of the posterior aspects ofthe left 10th through 12th ribs. Bilateral shoulder arthroplasties. Oldsevere compression deformity of the L1 vertebral body. OTHER: None. IMPRESSION: 1. Nondisplaced acute fractures of the posterior aspects of the left 10ththrough 12th ribs. No pneumothorax. 2. No other evidence of acute trauma in the chest, abdomen or pelvis. Austin Reardon MD IMG CT ORDERABLES Final Result * Adult Type and Screen (12/09/2023 10:29 PM CDT) ABO/RH(D) O POS 12/09/2023 10:29 PM CDT RH BLOOD BANK Antibody Screen Negative Negative 12/09/2023 10:29 PM CDT RH BLOOD BANK SPECIMEN EXPIRATION DATE [id number] 12/09/2023 10:29 PM CDT RH BLOOD BANK Blood BLOOD SPECIMEN / Unknown Venipuncture / Unknown 12/09/2023 10:29 PM CDT 12/09/2023 10:34 PM CDT Austin Reardon MD LAB - BLOOD BANK TEST ORDER Ed ited Result - Final RH BLOOD BANK [address] [place] [address], [facility] * EKG 12-lead, tracing only (12/09/2023 10:18 PM CDT) Systolic Blood Pressure mmHg RADIOLOGY RESULTS Diastolic Blood Pressure mmHg RADIOLOGY RESULTS Ventricular Rate 83 BPM RAD IOLOGY RESULTS Atrial Rate BPM RADIOLOG Y RESULTS UT Interval ms RADIOLOG Y RESULTS QRS Duration 90 ms RADIOLO GY RESULTS QT 392 ms RADIOLOGY RESULTS QTc 460 ms RADIOLOGY RESULTS P [place] degrees RADIOLOGY RESULTS R AXIS 62 degrees RADIOLOGY RESULTS T [place] 91 degrees RADIOLOGY RESULTS Interpretation ECG Atrial fibrillation Abnormal ECG When compared with ECG of 14-Jul-2022 04:40, Atrial fibrillation has replaced Sinus rhythm Nonspecific T wave abnormality no longer evident in Inferior leads Unconfirmed report - interpretation of this ECG is computer generated - see medical record for final interpretation Confirmed by - EMERGENCY ROOM, PHYSICIAN ([id number]), supervising film or videotape editor RU BULL ([id number]) on 12/10/2023 6:44:10 AM RADIOLOGY RESULTS 12/09/2023 10:1 8 PM CDT 12/10/2023 6:44 AM CDT Austin Reardon MD ECG ORDERABLES Edited Result - Final RADIOLOGY RESULTS * (ABNORMAL) Hemoglobin A1c (12/09/2023 10:08 PM CDT) Pathologist [facility] Estimated Average Glucose 146(H) <117 mg/dL 12/10/2023 3:14 AM CDT RH LABORATORY Hemoglobin A1C 6.7(H) <5.7 % 12/10/2023 3:14 AM CDT RH LABORATORY Comment: Normal <5.7% Prediabetes 5.7-6.4% ? Diabetes 6.5% or higher Note: Adopted from ADA consensus guidelines. Blood BLOOD SPECIMEN / Unknown Venipuncture / Unknown 12/09/2023 10:08 PM CDT 12/09/2023 10:26 PM CDT us Ky Saldana MD LAB - BLOOD ORDERABLES F inal Result Performing Organization Address City/[facility]/ZIP Co de Phone Number [facility] [address] Lab (1st floor, no room number) [address] [place] [address] * Lipase (12/09/2023 10:08 PM CDT) [facility] Lipase 17 13 - 60 U/L 12/09/2023 11:01 PM CDT LABORATORY Blood BLOOD SPECIMEN / Unknown Venipuncture / Unknown 12/09/2023 10:08 PM CDT 12/09/2023 10:26 PM CDT us Austin Reardon MD LAB - BLOOD ORDERABLES Final R esult [facility] [address] Lab (1st floor, no room number) [place] [id number] [place] [address] * Hepatic function panel (12/09/2023 10:08 PM CDT) Pathologist [facility] Protein Total 6.8 6.4 - 8.3 g/dL 12/09/2023 11:01 PM CDT [facility] LAB[facility]ATORY Albumin 4.0 3.5 - 5.2 g/dL 12/09/2023 11:01 PM CDT [facility] Bilirubin Total 0.4 <=1.2 mg/dL 12/09/2023 11:01 PM CDT [facility] Alkaline Phosphatase 84 40 - 150 U/L 12/09/2023 11:01 PM CDT [facility] AST 27 0 - 45 U/L 12/09/2023 11:01 PM CDT [facility] ALT 31 0 - 50 U/L 12/09/2023 11:01 PM CDT [facility] Bilirubin Direct <0.20 0.00 - 0.30 mg/dL 12/09/2023 11:01 PM CDT [facility] LABORATORY Blood BLOOD SPECIMEN / Unknown Venipuncture / Unknown 12/09/2023 10:08 PM CDT 12/09/2023 10:26 PM CDT us Austin Reardon MD LAB - BLOOD ORDERABLES Final R esult [facility] [address] (1st floor, no room number) [place] [phone] [place] [address] * INR (12/09/2023 10:08 PM CDT) INR 1.12 0.85 - 1.15 12/09/2023 11:06 PM CDT [facility] LABORATORY Blood BLOOD SPECIMEN / Unknown Venipuncture / Unknown 12/09/2023 10:08 PM CDT 12/09/2023 10:26 PM CDT us Austin Reardon MD LAB - BLOOD ORDERABLES Final R esult [facility] [address] Lab (1st floor, no room number) [place] [phone] [place] [address] * Extra Blue Top Tube (12/09/2023 10:08 PM CDT) Hold Specimen JIC 12/09/2023 11:31 PM CDT [facility] LABORATORY Blood BLOOD SPECIMEN / Unknown Venipuncture / Unknown 12/09/2023 10:08 PM CDT 12/09/2023 10:26 PM CDT us Austin Reardon MD LAB - BLOOD ORDERABLES Final R esult [facility] LABORATORY [facility] [address] Lab (1st floor, no room number) [place] [address], [facility] * (ABNORMAL) CBC with platelets and differential (12/09/2023 10:08 PM CDT) WBC Count 6.9 4.0 - 11.0 10e3/uL 12/09/2023 10:35 PM CDT [facility] RBC Count 4.23 3.80 - 5.20 10e6/uL 12/09/2023 10:35 PM CDT [facility] Hemoglobin 13.1 11.7 - 15.7 g/dL 12/09/2023 10:35 PM CDT [facility] Hematocrit 41.3 35.0 - 47.0 % 12/09/2023 10:35 PM CDT [facility] LAB[facility]ATORY MCV 98 78 - 100 fL 12/09/2023 10:35 PM CDT [facility] LAB[facility] MCH 31.0 26.5 - 33.0 pg 12/09/2023 10:35 PM CDT [facility] MCHC 31.7 31.5 - 36.5 g/dL 12/09/2023 10:35 PM CDT [facility] RDW 14.2 10.0 - 15.0 % 12/09/2023 10:35 PM CDT [facility] Platelet Count 188 150 - 450 10e3/uL 12/09/2023 10:35 PM CDT [facility] % Neutrophils 80 % 12/09/2023 10:35 PM CDT [facility] % Lymphocytes 9 % 12/09/2023 10:35 PM CDT [facility] % Monocytes 10 % 12/09/2023 10:35 PM CDT [facility] % Eosinophils 1 % 12/09/2023 10:35 PM CDT [facility] % Basophils 0 % 12/09/2023 10:35 PM CDT [facility] % Immature Granulocytes 0 % 12/09/2023 10:35 PM CDT [facility] LAB[facility]ATORY NRBCs per 100 WBC 0 <1 /100 024 10:35 PM CDT [facility] LAB[facility] Absolute Neutrophils 5.5 1.6 - 8.3 10e3/uL 12/09/2023 10:35 PM CDT [facility] LAB[facility] Absolute Lymphocytes 0.6(L) 0.8 - 5.3 10e3/uL 12/09/2023 10:35 PM CDT [facility] Absolute Monocytes 0.7 0.0 - 1.3 10e3/uL 12/09/2023 10:35 PM CDT [facility] Absolute Eosinophils 0.0 0.0 - 0.7 10e3/uL 12/09/2023 10:35 PM CDT [facility] Absolute Basophils 0.0 0.0 - 0.2 10e3/uL 12/09/2023 10:35 PM CDT [facility] Absolute Immature Granulocytes 0.0 <=0.4 10e3/uL 12/09/2023 10:35 PM CDT [facility] LAB[facility] Absolute NRBCs 0.0 10e3/uL 12/09/2023 10:35 PM CDT [facility] LAB[facility]AT[facility] Blood BLOOD SPECIMEN / Unknown Venipuncture / Unknown 12/09/2023 10:08 PM CDT 12/09/2023 10:26 PM CDT us Austin Reardon MD LAB - BLOOD ORDERABLES Final R esult LABORATORY [facility] [address] [facility] Lab (1st floor, no room number) [place] [address], [facility] * (ABNORMAL) Basic metabolic panel (BMP) (12/09/2023 10:08 PM CDT) Sodium 138 135 - 145 mmol/L 12/09/2023 11:01 PM CDT LABORATORY Potassium 4.4 3.4 - 5.3 mmol/L 12/09/2023 11:01 PM CDT LABORATORY Chloride 98 98 - 107 mmol/L 12/09/2023 11:01 PM CDT LABORATORY Carbon Dioxide (CO2) 30(H) 22 - 29 mmol/L 12/09/2023 11:01 PM CDT LABORATORY Anion Gap 10 7 - 15 mmol/L 12/09/2023 11:01 PM CDT LABORATORY Urea Nitrogen 15.4 8.0 - 23.0 mg/dL 12/09/2023 11:01 PM CDT [facility] LABORAT[facility] Creatinine 0.91 0.51 - 0.95 mg/dL 12/09/2023 11:01 PM CDT [facility] GFR Estimate 61 >60 mL/min/1.7 3m2 12/09/2023 11:01 PM CDT [facility] Comment:eGFR calculated usin 2020 CKD-EPI equation. Calcium 8.7(L) 8.8 - 10.4 mg/dL 12/09/2023 11:01 PM CDT [facility] LAB[facility]AT[facility] Comment:Reference intervals for this test were updated on 09/23/2023 to reflect our healthy population more accurately. There may be differences in the flagging of prior results with similar values performed with this method. Those prior results can be interpreted in the context of the updated reference intervals. Glucose 176(H) 70 - 99 mg/dL 12/09/2023 11:01 PM CDT LABORATORY Blood BLOOD SPECIMEN / Unknown Venipuncture / Unknown 12/09/2023 10:08 PM CDT 12/09/2023 10:26 PM CDT us Austin Reardon MD LAB - BLOOD ORDERABLES Final R esult LABORATORY [facility] [address] [facility] Lab (1st floor, no room number) [place] [address], [facility] documented in this encounter Visit Diagnoses Diagnosis Closed fracture of multiple ribs, unspecified laterality, sequela- Primary Closed fracture of multiple ribs of left side, initial encounter Shortness of breath Acute respiratory failure with hypoxia (H) Acute respiratory failure Fall, initial encounter Shortness of breath Closed fracture of multiple ribs of left side, initial encounter documented in this encounter Administered Medications Inactive Administered Medications - up to 3 most recent administrations Medication Order MAR Action Action Date Dose Rate Site acetaminophen (TYLENOL) tablet 1,000 mg 1,000 mg, Oral, ONCE, On Fri12/09/23 at 2215, For 1 dose, Maximum acetaminophen dose from all sources = 75 mg/kg/day not to exceed 4 gram $Given 12/09/2023 10:23 PM CDT 1,000 mg acetaminophen (TYLENOL) tablet 1,000 mg 1,000 mg, Oral, 3 TIMES DAILY, First dose on Fri12/10/23 at 1000, Maximum acetaminophen dose from all sources = 75 mg/kg/day not to exceed 4 gram $Given 12/11/2023 1:49 PM CDT 1,000 mg $Given 12/11/2023 8:35 AM CDT 1,000 mg $Given 12/10/2023 7:44 PM CDT 1,000 mg dextrose 50 % injection 25-50 mL 25-50 mL, Intravenous, EVERY 15 MIN PRN, low blood sugar, Administer over 1-5 Minutes, Starting on Fri12/10/23 at 0230, Use if have IV access, BG less than 70 mg/dL and meet dose criteria below: Dose if conscious and alert (or disorientated) and NPO = 25 mL Dose if unconscious / not alert = 50 mL Give first dose for initial blood glucose less than 70 mg/dL. If blood glucose at 15 minute recheck is less than or equal to 80 mg/dL continue to administer carbohydrate treatment every 15 minutes, as needed, based on blood glucose and assessment parameters until blood glucose level is above 80 mg/dL x 2 consecutive 15 minute checks. donepezil (ARICEPT) tablet 10 mg 10 mg, Oral, AT BEDTIME, First dose on Fri12/10/23 at 2200 $Given 12/10/2023 10:16 PM CDT 10 mg FLUoxetine (PROzac) capsule 10 mg 10 mg, Oral, DAILY, First dose on Fri12/10/23 at 1000 $Given 12/11/2023 8:35 AM CDT 10 mg $Given 12/10/2023 10:24 AM CDT 10 mg fluticasone-vilanterol (BREO ELLIPTA) 200-25 MCG/ACT inhaler 1 puff 1 puff, Inhalation, DAILY, First dose on Fri12/10/23 at 0800, This therapy was substituted for Fluticasone furoate/umeclidinium/vilanterol (TRELEGY ELLIPTA) 200-62.5-25 mcg 1 puff Daily when taken with umeclidinium (Incruse Ellipta) 62.5 mcg. Check the dose counter on the inhaler to ensure there are doses remaining before administering. $Given 12/11/2023 8:05 AM CDT 1 puff gabapentin (NEURONTIN) capsule 100 mg 100 mg, Oral, 3 TIMES DAILY, First dose on Fri12/10/23 at 0800 $Given 12/11/2023 1:48 PM CDT 100 mg $Given 12/11/2023 8:36 AM CDT 100 mg $Given 12/10/2023 7:44 PM CDT 100 mg glucagon injection 1 mg 1 mg, Subcutaneous, EVERY 15 MIN PRN, low blood sugar, May repeat x 1 only, Starting on Fri12/10/23 at 0230, May give SQ or IM. ONLY use glucagon IF patient has NO IV access AND is UNABLE to swallow AND blood glucose is LESS than or EQUAL to 50 mg/dL. glucose gel 15-30 g 15-30 g, Oral, EVERY 15 MIN PRN, low blood sugar, Starting on Fri12/10/23 at 0230, Give first dose for initial blood glucose less than 70 mg/dL per the dosing instructions below. If blood glucose at 15 minute rechecks is still less than or equal to 80 mg/dL, continue to administer doses per blood glucose parameters every 15 minutes, as needed, until blood glucose level is at or above 80 mg/dL x 2 consecutive 15 minute checks. Dosing Instructions: ~If patient is conscious and able to swallow and NO enteral tube For initial BG 51-69mg/dL OR 15 minute recheck BG 51- 80 mg/dL - give 15 g For BG less than or equal to 50 mg/dL - give 30 g ~ If Enteral tube For initial BG 51-69mg/dL OR 15 minute recheck BG 51- 80 mg/dL - give apple juice 120 mL (4 oz or 15 g of CHO) via enteral tube For BG less than or equal to 50 mg/dL - Give apple juice 240 mL (8 oz or 30 g of CHO) via enteral tube ~Oral gel is preferable for conscious and able to swallow patient. ~IF gel unavailable or patient refuses may provide apple juice per Enteral tube dosing instructions. Document juice on I and O flowsheet. HYDROmorphone (PF) (DILAUDID) injection 0.3 mg 0.3 mg, Intravenous, EVERY 2 HOURS PRN, severe pain, IF patient cannot take oral opioid OR IF pain not managed with non-pharmacological, non-opioid, or oral opioid interventions if ordered, Starting on Fri12/10/23 at 0230, May use concomitant with non-opioid analgesics. $Given 12/10/2023 2:52 AM CDT 0.3 mg insulin aspart (NovoLOG) injection (RAPID ACTING) 1-7 Units, Subcutaneous, 3 TIMES DAILY BEFORE MEALS, First dose on Fri12/10/23 at 0730, Correction Scale - MEDIUM INSULIN RESISTANCE DOSING Do Not give Correction Insulin if Pre-Meal BG less than 140. For Pre-Meal BG 140 - 189 give 1 unit. For Pre-Meal BG 190 - 239 give 2 units. For Pre-Meal BG 240 - 289 give 3 units. For Pre-Meal BG 290 - 339 give 4 units. For Pre-Meal BG 340- 389 give 5 units. For Pre-Meal BG 390-439 give 6 units For Pre-Meal BG greater than or equal to 440 give 7 units. To be given with prandial insulin, and based on pre-meal blood glucose. Administering insulin within 5 minutes of the start of the meal is ideal. Administer insulin no more than 30 minutes after the start of the meal, unless directed otherwise by provider. Notify provider if glucose greater than or equal to 350 mg/dL after administration of correction dose. $Given 12/11/2023 12:53 PM CDT 1 Units $Given 12/10/2023 5:03 PM CDT 1 Units Le ft Upper Abdomen $Given 12/10/2023 1:27 PM CDT 1 Units insulin glargine (LANTUS PEN) injection 10 Units 10 Units, Subcutaneous, AT BEDTIME, First dose on Fri12/10/23 at 2200 $Given 12/10/2023 10:16 PM CDT 10 Units iopamidol (ISOVUE-370) solution 100 mL 100 mL, Intravenous, ONCE, On Fri12/09/23 at 2315, For 1 dose $Given 12/09/2023 11:18 PM CDT 100 mLs irbesartan (AVAPRO) tablet 150 mg 150 mg, Oral, 2 TIMES DAILY, First dose on Fri12/10/23 at 1030 $Given 12/11/2023 8:36 AM CDT 150 mg $Given 12/10/2023 7:45 PM CDT 150 mg $Given 12/10/2023 12:50 PM CDT 150 mg Lidocaine (LIDOCARE) 4 % Patch 1 patch 1 patch, Transdermal, Administer over 12 Hours, EVERY 24 HOURS 0800, First dose on Fri12/10/23 at 0800, Apply patch(es) to over and medial to fracture site L lateral/posterior/lower chest wall. To prevent lidocaine toxicity, patient should be patch free for 12 hrs daily. Patches may be cut to smaller size prior to removing release liner. Reminder: Remove previous patch before applying new patch. NEVER APPLY HEAT OVER PATCH which increases absorption and may lead to local anesthetic toxicity. Do not apply over area where liposomal bupivacaine was injected for 96 hours post injection. $Patch/Med Applied 12/11/2023 8:41 AM CDT 1 patch Left Chest $Patch/Med Applied 12/10/2023 8:35 AM CDT 1 patch Other (see comments) methocarbamol (ROBAXIN) tablet 500 mg 500 mg, Oral, EVERY 6 HOURS PRN, muscle spasms, Starting on Fri12/10/23 at 0230, For 72 hours $Given 12/11/2023 5:19 AM CDT 500 mg morphine (PF) injection 4 mg 4 mg, Intravenous, EVERY 15 MIN PRN, moderate pain, severe pain, Starting on Fri12/09/23 at 2210, For 3 doses, Notify the provider to assess for uncontrolled pain or analgesic side effects. Hold while on IV ORDER PROCESSING SPECIALIST or with regular IV opioid dosing. $Given 12/09/2023 10:25 PM CDT 4 mg naloxone (NARCAN) injection 0.2 mg 0.2 mg, Intravenous, EVERY 2 MIN PRN, opioid reversal, Starting on Fri12/10/23 at 0242, Administer intravenous route when available and notify provider when administered. For unintended sedation or respiratory depression if all of the below criteria are met: ~ respiratory rate LESS than or EQUAL to 8. ~SaO2 less than 92% and or/end-tidal CO2 is greater than 50. ~ the patient is receiving an opioid, has unintended sedations assessed as RASS (-3), and is currently not on mechanical ventilation. RASS scale moderate (-3) is movement or eye opening to voice but no eye contact. Patient Monitoring Once the patient has demonstrated a response to the naloxone, continue to monitor respiratory rate, depth, oxygen saturation and end-tidal CO2 (if available) every 15 minutes x 2, then every 30 minutes x 2, then every 1 hour x 1 after each naloxone dose. Consider transfer to ICU if patient respiratory parameters have not improved after 4 naloxone doses. naloxone (NARCAN) injection 0.2 mg 0.2 mg, Intramuscular, EVERY 2 MIN PRN, opioid reversal, Starting on Fri12/10/23 at 0242, Administer intramuscular if an intravenous route is not available and notify provider when administered. For unintended sedation or respiratory depression if all of the below criteria are met: ~ respiratory rate LESS than or EQUAL to 8. ~SaO2 less than 92% and or/end-tidal CO2 is greater than 50. ~ the patient is receiving an opioid, has unintended sedations assessed as RASS (-3), and is currently not on mechanical ventilation. RASS scale moderate (-3) is movement or eye opening to voice but no eye contact. Patient Monitoring Once the patient has demonstrated a response to the naloxone, continue to monitor respiratory rate, depth, oxygen saturation and end-tidal CO2 (if available) every 15 minutes x 2, then every 30 minutes x 2, then every 1 hour x 1 after each naloxone dose. Consider transfer to ICU if patient respiratory parameters have not improved after 4 naloxone doses. naloxone (NARCAN) injection 0.4 mg 0.4 mg, Intravenous, EVERY 2 MIN PRN, opioid reversal, Starting on Fri12/10/23 at 0242, Administer intravenous route when available and notify provider when administered. For unintended sedation or respiratory depression if all of the below criteria are met: ~ respiratory rate LESS than or EQUAL to 8. ~ SaO2 less than 92% and or/end-tidal CO2 is greater than 50. ~ the patient is receiving an opioid, has unintended sedation assessed as RASS (-4) or (-5) and patient is currently not on mechanical ventilation. RASS scale (-4) is deep sedation with no response to voice but movement or eye opening to physical stimulation. RASS scale (-5) is unarousable. Patient Monitoring Once the patient has demonstrated a response to the naloxone, continue to monitor respiratory rate, depth, oxygen saturation and end-tidal CO2 (if available) every 15 minutes x 2, then every 30 minutes x 2, then every 1 hour x 1 after each naloxone dose. Consider transfer to ICU if patient respiratory parameters have not improved after 4 naloxone doses. naloxone (NARCAN) injection 0.4 mg 0.4 mg, Intramuscular, EVERY 2 MIN PRN, opioid reversal, Starting on Fri12/10/23 at 0242, Administer intramuscular if an intravenous route is not available and notify provider when administered. For unintended sedation or respiratory depression if all of the below criteria are met: ~ respiratory rate LESS than or EQUAL to 8. ~ SaO2 less than 92% and or/end-tidal CO2 is greater than 50. ~ the patient is receiving an opioid, has unintended sedation assessed as RASS (-4) or (-5) and patient is currently not on mechanical ventilation. RASS scale (-4) is deep sedation with no response to voice but movement or eye opening to physical stimulation. RASS scale (-5) is unarousable. Patient Monitoring Once the patient has demonstrated a response to the naloxone, continue to monitor respiratory rate, depth, oxygen saturation and end-tidal CO2 (if available) every 15 minutes x 2, then every 30 minutes x 2, then every 1 hour x 1 after each naloxone dose. Consider transfer to ICU if patient respiratory parameters have not improved after 4 naloxone doses. ondansetron (ZOFRAN ODT) ODT tab 4 mg 4 mg, Oral, EVERY 6 HOURS PRN, nausea, vomiting, Starting on Fri12/10/23 at 0230, This is Step 1 of nausea and vomiting management. If nausea not resolved in 15 minutes, go to Step 2 prochlorperazine (COMPAZINE). With dry hands, peel back foil backing and gently remove tablet. Do not push oral disintegrating tablet through foil backing. Administer immediately on tongue and oral disintegrating tablet dissolves in seconds, then swallow with saliva. Liquid not required. ondansetron (ZOFRAN) injection 4 mg 4 mg, Intravenous, EVERY 30 MIN PRN, nausea, vomiting, Administer over 2-5 Minutes, Starting on Fri12/09/23 at 2210, For 3 doses, May repeat in 30 minutes as needed, up to 3 doses. $Given 12/09/2023 10:24 PM CDT 4 mg ondansetron (ZOFRAN) injection 4 mg 4 mg, Intravenous, EVERY 6 HOURS PRN, nausea, vomiting, Administer over 2-5 Minutes, Starting on Fri12/10/23 at 0230, Give IF patient unable to tolerate oral medication. This is Step 1 of nausea and vomiting management. If nausea not resolved in 15 minutes, go to Step 2 prochlorperazine (COMPAZINE). oxyBUTYnin ER (DITROPAN XL) 24 hr tablet 10 mg 10 mg, Oral, DAILY, First dose on Fri12/10/23 at 1400, DO NOT CRUSH. $Given 12/11/2023 8:36 AM CDT 10 mg $Given 12/10/2023 2:14 PM CDT 10 mg oxyCODONE (ROXICODONE) tablet 5 mg 5 mg, Oral, EVERY 4 HOURS PRN, severe pain, Starting on Fri12/10/23 at 0230, Hold oral PRN dose for analgesic side effects. Notify provider to assess for uncontrolled pain or analgesic side effects. Hold while on IV ORDER PROCESSING SPECIALIST or with regular IV opioid dosing. oxyCODONE IR (ROXICODONE) half-tab 2.5 mg 2.5 mg, Oral, EVERY 4 HOURS PRN, moderate pain, Starting on Fri12/10/23 at 0230, Hold oral PRN dose for analgesic side effects. Notify provider to assess for uncontrolled pain or analgesic side effects. Hold while on IV ORDER PROCESSING SPECIALIST or with regular IV opioid dosing. $Given 12/10/2023 1:30 PM CDT 2.5 mg QUEtiapine (SEROquel) tablet 25 mg 25 mg, Oral, AT BEDTIME, First dose on Fri12/10/23 at 2200 $Given 12/10/2023 10:16 PM CDT 25 mg senna-docusate (SENOKOT-S/PERICOLACE) 8.6-50 MG per tablet 1 tablet 1 tablet, Oral, 2 TIMES DAILY PRN, constipation, Starting on Fri12/10/23 at 0230, If no bowel movement in 24 hours, increase to 2 tablets by mouth. IF more than 1 constipation PRN medication is ordered, administer step-oliveros as indicated, moving to the next step ONLY if prior step ineffective. Step 1: senna-docusate (SENOKOT-S; PERICOLACE) OR bisacodyl (DULCOLAX) EC tablet Step 2: polyethylene glycol (MIRALAX/GLYCOLAX) Step 3: bisacodyl (DULCOLAX) suppository Step 4: enema Hold for loose stools. senna-docusate (SENOKOT-S/PERICOLACE) 8.6-50 MG per tablet 2 tablet 2 tablet, Oral, 2 TIMES DAILY PRN, constipation, Starting on Fri12/10/23 at 0230, IF more than 1 constipation PRN medication is ordered, administer step-oliveros as indicated, moving to the next step ONLY if prior step ineffective. Step 1: senna-docusate (SENOKOT-S; PERICOLACE) OR bisacodyl (DULCOLAX) EC tablet Step 2: polyethylene glycol (MIRALAX/GLYCOLAX) Step 3: bisacodyl (DULCOLAX) suppository Step 4: enema Hold for loose stools. sodium chloride (PF) 0.9% PF flush 3 mL 3 mL, Intracatheter, EVERY 8 HOURS, First dose on Fri12/10/23 at 0300, to lock peripheral IV dormant line $Given 12/11/2023 4:29 AM CDT 3 mLs $Given 12/10/2023 7:53 PM CDT 3 mLs $Given 12/10/2023 12:51 PM CDT 3 mLs sodium chloride 0.9 % bag 500mL for CT scan flush use Intravenous, 65 mL, ONCE, On Fri12/09/23 at 2315, For 1 dose, This entry is for use by Radiology to intermittently used as a flush in patients receiving a CT scan. $Given 12/09/2023 11:19 PM CDT 65 mLs sodium chloride 0.9% BOLUS 500 mL Intravenous, 500 mL, ONCE, at 250 mL/hr, Administer over 2 Hours, On Fri12/10/23 at 0130, For 1 dose $New Bag 12/10/2023 2:04 AM CDT 500 mLs 250 mL/hr umeclidinium (INCRUSE ELLIPTA) 62.5 MCG/ACT inhaler 1 puff 1 puff, Inhalation, DAILY, First dose on Fri12/10/23 at 0800, This therapy was substituted for Fluticasone furoate/umeclidinium/vilanterol (TRELEGY ELLIPTA) 200-62.5-25 mcg 1 puff Daily when taken with fluticasone furoate/vilanterol (Breo Ellipta) 200-25 mcg. Check the dose counter on the inhaler to ensure there are doses remaining before administering. $Given 12/11/2023 8:06 AM CDT 1 puff documented in this encounter Active and Recently Administered Medications Times are shown in CDT. Scheduled Medication Order 12/09/2023 12/10/2023 12/11/2023 acetaminophen (TYLENOL) tablet 1,000 mg (COMPLETED) 1,000 mg, Oral, ONCE, On Fri12/09/23 at 2215, For 1 dose, Maximum acetaminophen dose from all sources = 75 mg/kg/day not to exceed 4 gram 2223 ($Given - Provider: Carola Hair RN) acetaminophen (TYLENOL) tablet 1,000 mg 1,000 mg, Oral, 3 TIMES DAILY, First dose on Fri12/10/23 at 1000, Maximum acetaminophen dose from all sources = 75 mg/kg/day not to exceed 4 gram 1024 ($Given - Provider: Pinky Padilla RN)1307 ($Given - Provider: Pinky Padilla RN)1944 ($Given - Provider: Kristi Stovall RN) 0835 ($Given - Provider: Leona Diaz)1349 ($Given - Provider: Mireya Lester RN) donepezil (ARICEPT) tablet 10 mg 10 mg, Oral, AT BEDTIME, First dose on Fri12/10/23 at 2200 2216 ($Given - Provider: Kristi Stovall, ELIZABETH) FLUoxetine (PROzac) capsule 10 mg 10 mg, Oral, DAILY, First dose on Fri12/10/23 at 1000 1024 ($Given - Provider: Pinky Padilla RN) 0835 ($Given - Provider: Leona Diaz) fluticasone-vilanterol (BREO ELLIPTA) 200-25 MCG/ACT inhaler 1 puff(Linked Group 1) 1 puff, Inhalation, DAILY, First dose on Fri12/10/23 at 0800, This therapy was substituted for Fluticasone furoate/umeclidinium/scott anterol (TRELEGY ELLIPTA) 200-62.5-25 mcg 1 puff Daily when taken with umeclidinium (Incruse Ellipta) 62.5 mcg. Check the dose counter on the inhaler to ensure there are doses remaining before administering. 0810 (Hold - Provider: RT Elvira - Reason: Other - Comment: will administer once verified and sent) 0805 ($Given - Provider: RT Elvira) gabapentin (NEURONTIN) capsule 100 mg 100 mg, Oral, 3 TIMES DAILY, First dose on Fri12/10/23 at 0800 0836 ($Given - Provider: Pinky Padilla RN)1308 ($Given - Provider: Pinky Padilla RN)1944 ($Given - Provider: Kristi Stovall RN) 0836 ($Given - Provider: Leona Diaz)1348 ($Given - Provider: Mireya Lester, ELIZABETH) hydrochlorothiazide (HYDRODIURIL) tablet 25 mg 25 mg, Oral, DAILY, First dose on Fri12/10/23 at 0800, On hold since Fri12/10/2023 at 0230 until manually unheld 0230 (Held by provider - Provider: Ky Saldana MD - Reason: Acute Kidney Injury)0800 (Automatically Held) 0800 (Automatically Held)1902 (Unheld by provider - Provider: Orders Generic Provider) insulin aspart (NovoLOG) injection (RAPID ACTING) 1-7 Units, Subcutaneous, 3 TIMES DAILY BEFORE MEALS, First dose on Fri12/10/23 at 0730, Correction Scale - MEDIUM INSULIN RESISTANCE DOSING Do Not give Correction Insulin if Pre-Meal BG less than 140. For Pre-Meal BG 140 - 189 give 1 unit. For Pre-Meal BG 190 - 239 give 2 units. For Pre-Meal BG 240 - 289 give 3 units. For Pre-Meal BG 290 - 339 give 4 units. For Pre-Meal BG 340- 389 give 5 units. For Pre-Meal BG 390-439 give 6 units For Pre-Meal BG greater than or equal to 440 give 7 units. To be given with prandial insulin, and based on pre-meal blood glucose. Administering insulin within 5 minutes of the start of the meal is ideal. Administer insulin no more than 30 minutes after the start of the meal, unless directed otherwise by provider. Notify provider if glucose greater than or equal to 350 mg/dL after administration of correction dose. 0838 ($Given - Provider: Pinky Padilla RN)1327 ($Given - Provider: Pinky Padilla RN - Comment: food on its way now.)1703 ($Given - Provider: Pinky Padilla RN) 0841 (Not Given - Provider: Leona Diaz - Reason: Order parameters not met)1253 ($Given - Provider: Mireya Lester RN)1700 (Canceled Entry - Provider: Orders Generic Provider - Comment: Automatically canceled at discontinue of medication order) insulin aspart (NovoLOG) injection (RAPID ACTING) 1-5 Units, Subcutaneous, AT BEDTIME, First dose on Fri12/10/23 at 0300, MEDIUM INSULIN RESISTANCE DOSING Do Not give Bedtime Correction Insulin if BG less than 200. For BG 200 - 249 give 1 units. For BG 250 - 299 give 2 units. For BG 300 - 349 give 3 units. For BG 350 -399 give 4 units. For BG greater than or equal to 400 give 5 units. Notify provider if glucose greater than or equal to 350 mg/dL after administration of correction dose. 0245 (Not Given - Provider: Cholo Knight RN - Reason: Order parameters not met)2208 (Not Given - Provider: Kristi Stovall RN - Reason: Order parameters not met) insulin glargine (LANTUS PEN) injection 10 Units 10 Units, Subcutaneous, AT BEDTIME, First dose on Fri12/10/23 at 2200 2216 ($Given - Provider: Kristi Stovall RN) iopamidol (ISOVUE-370) solution 100 mL (COMPLETED) 100 mL, Intravenous, ONCE, On Fri12/09/23 at 2315, For 1 dose 2318 ($Given - Provider: Justin Pike) irbesartan (AVAPRO) tablet 150 mg 150 mg, Oral, 2 TIMES DAILY, First dose on Fri12/10/23 at 1030 1250 ($Given - Provider: Pinky Padilla RN)1945 ($Given - Provider: Kristi Stovall RN) 0836 ($Given - Provider: Leona Diaz) Lidocaine (LIDOCARE) 4 % Patch 1 patch 1 patch, Transdermal, Administer over 12 Hours, EVERY 24 HOURS 0800, First dose on Fri12/10/23 at 0800, Apply patch(es) to over and medial to fracture site L lateral/posterior/lower chest wall. To prevent lidocaine toxicity, patient should be patch free for 12 hrs daily. Patches may be cut to smaller size prior to removing release liner. Reminder: Remove previous patch before applying new patch. NEVER APPLY HEAT OVER PATCH which increases absorption and may lead to local anesthetic toxicity. Do not apply over area where liposomal bupivacaine was injected for 96 hours post injection. 0835 ($Patch/Med Applied - Provider: Pinky Padilla RN - Comment: Radha Ribs)1957 (Patch/Med Removed - Provider: Kristi Stovall RN) 0841 ($Patch/Med Applied - Provider: Leona Diaz)1632 (Due: Patch/Med Removed - Provider: Orders Generic Provider - Comment: Time automatically adjusted from order being discontinued) oxyBUTYnin ER (DITROPAN XL) 24 hr tablet 10 mg 10 mg, Oral, DAILY, First dose on Fri12/10/23 at 1400, DO NOT CRUSH. 1414 ($Given - Provider: Pinky Padilla RN) 0836 ($Given - Provider: Leona Diaz) QUEtiapine (SEROquel) tablet 25 mg 25 mg, Oral, AT BEDTIME, First dose on Fri12/10/23 at 2200 0413 (Canceled Entry - Provider: Cholo Knight RN)2216 ($Given - Provider: Kristi Stovall RN) sodium chloride (PF) 0.9% PF flush 3 mL 3 mL, Intracatheter, EVERY 8 HOURS, First dose on Fri12/10/23 at 0300, to lock peripheral IV dormant line 0245 (Not Given - Provider: Cholo Knight RN - Reason: IV Infusing)1251 ($Given - Provider: Pinky Padilla RN)1953 ($Given - Provider: Kristi Stovall RN) 0429 ($Given - Provider: Rom Guo RN)1437 (Not Given - Provider: Mireya Lester RN - Reason: Other) sodium chloride 0.9 % bag 500mL for CT scan flush use (COMPLETED) Intravenous, 65 mL, ONCE, On Fri12/09/23 at 2315, For 1 dose, This entry is for use by Radiology to intermittently used as a flush in patients receiving a CT scan. 2319 ($Given - Provider: Justin Pike) sodium chloride 0.9% BOLUS 500 mL (COMPLETED) Intravenous, 500 mL, ONCE, at 250 mL/hr, Administer over 2 Hours, On Fri12/10/23 at 0130, For 1 dose 0204 ($New Bag - Provider: Carola Hair RN) umeclidinium (INCRUSE ELLIPTA) 62.5 MCG/ACT inhaler 1 puff(Linked Group 1) 1 puff, Inhalation, DAILY, First dose on Fri12/10/23 at 0800, This therapy was substituted for Fluticasone furoate/umeclidinium/scott anterol (TRELEGY ELLIPTA) 200-62.5-25 mcg 1 puff Daily when taken with fluticasone furoate/vilanterol (Breo Ellipta) 200-25 mcg. Check the dose counter on the inhaler to ensure there are doses remaining before administering. 0810 (Hold - Provider: Mireya Washington RT - Reason: Other - Comment: will verify and give when sent) 0806 ($Given - Provider: RT Elvira) PRN Medication Order 12/09/2023 12/10/2023 12/11/2023 albuterol (PROVENTIL HFA/VENTOLIN HFA) inhaler 2 puff, Inhalation, EVERY 4 HOURS PRN, shortness of breath, wheezing, Starting on Fri12/10/23 at 0230, Check the dose counter on the inhaler to ensure there are doses remaining before administering. Prime by spraying into the air 4 times prior to first use and if not used within 2 weeks. bisacodyl (DULCOLAX) suppository 10 mg 10 mg, Rectal, DAILY PRN, constipation, Starting on Fri12/10/23 at 0230, IF more than 1 constipation PRN medication is ordered, administer step-oliveros as indicated, moving to the next step ONLY if prior step ineffective. Step 1: senna-docusate (SENOKOT-S; PERICOLACE) OR bisacodyl (DULCOLAX) EC tablet Step 2: polyethylene glycol (MIRALAX/GLYCOLAX) Step 3: bisacodyl (DULCOLAX) suppository Step 4: enema Hold for loose stools. calcium carbonate (TUMS) chewable tablet 1,000 mg 1,000 mg, Oral, 4 TIMES DAILY PRN, heartburn, Starting on Fri12/10/23 at 0230 dextrose 50 % injection 25-50 mL(Linked Group 2) 25-50 mL, Intravenous, EVERY 15 MIN PRN, low blood sugar, Administer over 1-5 Minutes, Starting on Fri12/10/23 at 0230, Use if have IV access, BG less than 70 mg/dL and meet dose criteria below: Dose if conscious and alert (or disorientated) and NPO = 25 mL Dose if unconscious / not alert = 50 mL Give first dose for initial blood glucose less than 70 mg/dL. If blood glucose at 15 minute recheck is less than or equal to 80 mg/dL continue to administer carbohydrate treatment every 15 minutes, as needed, based on blood glucose and assessment parameters until blood glucose level is above 80 mg/dL x 2 consecutive 15 minute checks. glucagon injection 1 mg(Linked Group 2) 1 mg, Subcutaneous, EVERY 15 MIN PRN, low blood sugar, May repeat x 1 only, Starting on Fri12/10/23 at 0230, May give SQ or IM. ONLY use glucagon IF patient has NO IV access AND is UNABLE to swallow AND blood glucose is LESS than or EQUAL to 50 mg/dL. glucose gel 15-30 g(Linked Group 2) 15-30 g, Oral, EVERY 15 MIN PRN, low blood sugar, Starting on Fri12/10/23 at 0230, Give first dose for initial blood glucose less than 70 mg/dL per the dosing instructions below. If blood glucose at 15 minute rechecks is still less than or equal to 80 mg/dL, continue to administer doses per blood glucose parameters every 15 minutes, as needed, until blood glucose level is at or above 80 mg/dL x 2 consecutive 15 minute checks. Dosing Instructions: ~If patient is conscious and able to swallow and NO enteral tube For initial BG 51-69mg/dL OR 15 minute recheck BG 51- 80 mg/dL - give 15 g For BG less than or equal to 50 mg/dL - give 30 g ~ If Enteral tube For initial BG 51-69mg/dL OR 15 minute recheck BG 51- 80 mg/dL - give apple juice 120 mL (4 oz or 15 g of CHO) via enteral tube For BG less than or equal to 50 mg/dL - Give apple juice 240 mL (8 oz or 30 g of CHO) via enteral tube ~Oral gel is preferable for conscious and able to swallow patient. ~IF gel unavailable or patient refuses may provide apple juice per Enteral tube dosing instructions. Document juice on I and O flowsheet. HYDROmorphone (PF) (DILAUDID) injection 0.3 mg (CANCELED) 0.3 mg, Intravenous, EVERY 2 HOURS PRN, severe pain, IF patient cannot take oral opioid OR IF pain not managed with non-pharmacological, non-opioid, or oral opioid interventions if ordered, Starting on Fri12/10/23 at 0230, May use concomitant with non-opioid analgesics. 0252 ($Given - Provider: Cholo Knight RN) ipratropium - albuterol 0.5 mg/2.5 mg/3 mL (DUONEB) neb solution 3 mL 3 mL, Nebulization, EVERY 4 HOURS PRN, wheezing, shortness of breath, Starting on Fri12/10/23 at 0230 lidocaine (LMX4) cream Topical, EVERY 1 HOUR PRN, pain, with VAD insertion, Starting on Fri12/10/23 at 0230, Apply at least 30 minutes prior to VAD insertion in divided doses as needed for size of site for insertion. MAX Dose: 2.5 g (? of 5 g tube) Do NOT give if patient has a history of allergy to any local anesthetic or any gladys product. Do NOT use both lidocaine intradermal/subcutaneous injection and the lidocaine cream on the same site. lidocaine 1 % 0.1-1 mL 0.1-1 mL, Other, EVERY 1 HOUR PRN, mild pain with VAD insertion, Starting on Fri12/10/23 at 0230, MAX dose 1 mL subcutaneous OR intradermal along the side of the vein in divided doses as needed for VAD insertion. Do NOT give if patient has a history of allergy to any local anesthetic or any gladys product. Do NOT use both lidocaine intradermal/subcutaneous injection and the lidocaine cream on the same site. methocarbamol (ROBAXIN) tablet 500 mg 500 mg, Oral, EVERY 6 HOURS PRN, muscle spasms, Starting on Fri12/10/23 at 0230, For 72 hours 0519 ($Given - Provider: Rom Guo RN) morphine (PF) injection 4 mg (CANCELED) 4 mg, Intravenous, EVERY 15 MIN PRN, moderate pain, severe pain, Starting on Fri12/09/23 at 2210, For 3 doses, Notify the provider to assess for uncontrolled pain or analgesic side effects. Hold while on IV ORDER PROCESSING SPECIALIST or with regular IV opioid dosing. 2224 ($Given - Provider: Carola Hair RN) naloxone (NARCAN) injection 0.2 mg(Linked Group 3) 0.2 mg, Intravenous, EVERY 2 MIN PRN, opioid reversal, Starting on Fri12/10/23 at 0242, Administer intravenous route when available and notify provider when administered. For unintended sedation or respiratory depression if all of the below criteria are met: ~ respiratory rate LESS than or EQUAL to 8. ~SaO2 less than 92% and or/end-tidal CO2 is greater than 50. ~ the patient is receiving an opioid, has unintended sedations assessed as RASS (-3), and is currently not on mechanical ventilation. RASS scale moderate (-3) is movement or eye opening to voice but no eye contact. Patient Monitoring Once the patient has demonstrated a response to the naloxone, continue to monitor respiratory rate, depth, oxygen saturation and end-tidal CO2 (if available) every 15 minutes x 2, then every 30 minutes x 2, then every 1 hour x 1 after each naloxone dose. Consider transfer to ICU if patient respiratory parameters have not improved after 4 naloxone doses. naloxone (NARCAN) injection 0.2 mg(Linked Group 3) 0.2 mg, Intramuscular, EVERY 2 MIN PRN, opioid reversal, Starting on Fri12/10/23 at 0242, Administer intramuscular if an intravenous route is not available and notify provider when administered. For unintended sedation or respiratory depression if all of the below criteria are met: ~ respiratory rate LESS than or EQUAL to 8. ~SaO2 less than 92% and or/end-tidal CO2 is greater than 50. ~ the patient is receiving an opioid, has unintended sedations assessed as RASS (-3), and is currently not on mechanical ventilation. RASS scale moderate (-3) is movement or eye opening to voice but no eye contact. Patient Monitoring Once the patient has demonstrated a response to the naloxone, continue to monitor respiratory rate, depth, oxygen saturation and end-tidal CO2 (if available) every 15 minutes x 2, then every 30 minutes x 2, then every 1 hour x 1 after each naloxone dose. Consider transfer to ICU if patient respiratory parameters have not improved after 4 naloxone doses. naloxone (NARCAN) injection 0.4 mg(Linked Group 3) 0.4 mg, Intravenous, EVERY 2 MIN PRN, opioid reversal, Starting on Fri12/10/23 at 0242, Administer intravenous route when available and notify provider when administered. For unintended sedation or respiratory depression if all of the below criteria are met: ~ respiratory rate LESS than or EQUAL to 8. ~ SaO2 less than 92% and or/end-tidal CO2 is greater than 50. ~ the patient is receiving an opioid, has unintended sedation assessed as RASS (-4) or (-5) and patient is currently not on mechanical ventilation. RASS scale (-4) is deep sedation with no response to voice but movement or eye opening to physical stimulation. RASS scale (-5) is unarousable. Patient Monitoring Once the patient has demonstrated a response to the naloxone, continue to monitor respiratory rate, depth, oxygen saturation and end-tidal CO2 (if available) every 15 minutes x 2, then every 30 minutes x 2, then every 1 hour x 1 after each naloxone dose. Consider transfer to ICU if patient respiratory parameters have not improved after 4 naloxone doses. naloxone (NARCAN) injection 0.4 mg(Linked Group 3) 0.4 mg, Intramuscular, EVERY 2 MIN PRN, opioid reversal, Starting on Fri12/10/23 at 0242, Administer intramuscular if an intravenous route is not available and notify provider when administered. For unintended sedation or respiratory depression if all of the below criteria are met: ~ respiratory rate LESS than or EQUAL to 8. ~ SaO2 less than 92% and or/end-tidal CO2 is greater than 50. ~ the patient is receiving an opioid, has unintended sedation assessed as RASS (-4) or (-5) and patient is currently not on mechanical ventilation. RASS scale (-4) is deep sedation with no response to voice but movement or eye opening to physical stimulation. RASS scale (-5) is unarousable. Patient Monitoring Once the patient has demonstrated a response to the naloxone, continue to monitor respiratory rate, depth, oxygen saturation and end-tidal CO2 (if available) every 15 minutes x 2, then every 30 minutes x 2, then every 1 hour x 1 after each naloxone dose. Consider transfer to ICU if patient respiratory parameters have not improved after 4 naloxone doses. ondansetron (ZOFRAN ODT) ODT tab 4 mg(Linked Group 4) 4 mg, Oral, EVERY 6 HOURS PRN, nausea, vomiting, Starting on Fri12/10/23 at 0230, This is Step 1 of nausea and vomiting management. If nausea not resolved in 15 minutes, go to Step 2 prochlorperazine (COMPAZINE). With dry hands, peel back foil backing and gently remove tablet. Do not push oral disintegrating tablet through foil backing. Administer immediately on tongue and oral disintegrating tablet dissolves in seconds, then swallow with saliva. Liquid not required. ondansetron (ZOFRAN) injection 4 mg (CANCELED) 4 mg, Intravenous, EVERY 30 MIN PRN, nausea, vomiting, Administer over 2-5 Minutes, Starting on Fri12/09/23 at 2210, For 3 doses, May repeat in 30 minutes as needed, up to 3 doses. 2224 ($Given - Provider: Carola Hair RN) ondansetron (ZOFRAN) injection 4 mg(Linked Group 4) 4 mg, Intravenous, EVERY 6 HOURS PRN, nausea, vomiting, Administer over 2-5 Minutes, Starting on Fri12/10/23 at 0230, Give IF patient unable to tolerate oral medication. This is Step 1 of nausea and vomiting management. If nausea not resolved in 15 minutes, go to Step 2 prochlorperazine (COMPAZINE). oxyCODONE (ROXICODONE) tablet 5 mg(Linked Group 5) 5 mg, Oral, EVERY 4 HOURS PRN, severe pain, Starting on Fri12/10/23 at 0230, Hold oral PRN dose for analgesic side effects. Notify provider to assess for uncontrolled pain or analgesic side effects. Hold while on IV ORDER PROCESSING SPECIALIST or with regular IV opioid dosing. 1330 (See Alternative - Provider: Pinky Padilla RN) oxyCODONE IR (ROXICODONE) half-tab 2.5 mg(Linked Group 5) 2.5 mg, Oral, EVERY 4 HOURS PRN, moderate pain, Starting on Fri12/10/23 at 0230, Hold oral PRN dose for analgesic side effects. Notify provider to assess for uncontrolled pain or analgesic side effects. Hold while on IV ORDER PROCESSING SPECIALIST or with regular IV opioid dosing. 1330 ($Given - Provider: Pinky Padilla RN) polyethylene glycol (MIRALAX) Packet 17 g 17 g, Oral, 2 TIMES DAILY PRN, constipation, Starting on Fri12/10/23 at 0230, IF more than 1 constipation PRN medication is ordered, administer step-oliveros as indicated, moving to the next step ONLY if prior step ineffective. Step 1: senna-docusate (SENOKOT-S; PERICOLACE) OR bisacodyl (DULCOLAX) EC tablet Step 2: polyethylene glycol (MIRALAX/GLYCOLAX) Step 3: bisacodyl (DULCOLAX) suppository Step 4: enema 1 Packet = 17 grams. Mix each gram with at least 1/2 ounce (15 mL) of water - 8 ounces for 17 g dose, 4 ounces for 8.5 g dose, 2 ounces for 4 g dose. Follow with the same volume of water. Hold for loose stools unless being administered as part of a bowel prep regimen or bowel clean out. senna-docusate (SENOKOT-S/PERICOLACE) 8.6-50 MG per tablet 1 tablet(Linked Group 6) 1 tablet, Oral, 2 TIMES DAILY PRN, constipation, Starting on Fri12/10/23 at 0230, If no bowel movement in 24 hours, increase to 2 tablets by mouth. IF more than 1 constipation PRN medication is ordered, administer step-oliveros as indicated, moving to the next step ONLY if prior step ineffective. Step 1: senna-docusate (SENOKOT-S; PERICOLACE) OR bisacodyl (DULCOLAX) EC tablet Step 2: polyethylene glycol (MIRALAX/GLYCOLAX) Step 3: bisacodyl (DULCOLAX) suppository Step 4: enema Hold for loose stools. senna-docusate (SENOKOT-S/PERICOLACE) 8.6-50 MG per tablet 2 tablet(Linked Group 6) 2 tablet, Oral, 2 TIMES DAILY PRN, constipation, Starting on Fri12/10/23 at 0230, IF more than 1 constipation PRN medication is ordered, administer step-oliveros as indicated, moving to the next step ONLY if prior step ineffective. Step 1: senna-docusate (SENOKOT-S; PERICOLACE) OR bisacodyl (DULCOLAX) EC tablet Step 2: polyethylene glycol (MIRALAX/GLYCOLAX) Step 3: bisacodyl (DULCOLAX) suppository Step 4: enema Hold for loose stools. sodium chloride (PF) 0.9% PF flush 3 mL 3 mL, Intracatheter, EVERY 1 MIN PRN, line flush, other, to ensure patency or to lock dormant line, Starting on Fri12/10/23 at 0230 Linked Groups Order Group 1: fluticasone-vilanterol (BREO ELLIPTA) 200-25 MCG/ACT inhaler 1 puffJump to med 1 puff, Inhalation, DAILY, First dose on Fri12/10/23 at 0800, This therapy was substituted for Fluticasone furoate/umeclidinium/vilanterol (TRELEGY ELLIPTA) 200-62.5-25 mcg 1 puff Daily when taken with umeclidinium (Incruse Ellipta) 62.5 mcg. Check the dose counter on the inhaler to ensure there are doses remaining before administering. And umeclidinium (INCRUSE ELLIPTA) 62.5 MCG/ACT inhaler 1 puffJump to med 1 puff, Inhalation, DAILY, First dose on Fri12/10/23 at 0800, This therapy was substituted for Fluticasone furoate/umeclidinium/vilanterol (TRELEGY ELLIPTA) 200-62.5-25 mcg 1 puff Daily when taken with fluticasone furoate/vilanterol (Breo Ellipta) 200-25 mcg. Check the dose counter on the inhaler to ensure there are doses remaining before administering. Group 2: glucose gel 15-30 gJump to med 15-30 g, Oral, EVERY 15 MIN PRN, low blood sugar, Starting on Fri12/10/23 at 0230, Give first dose for initial blood glucose less than 70 mg/dL per the dosing instructions below. If blood glucose at 15 minute rechecks is still less than or equal to 80 mg/dL, continue to administer doses per blood glucose parameters every 15 minutes, as needed, until blood glucose level is at or above 80 mg/dL x 2 consecutive 15 minute checks. Dosing Instructions: ~If patient is conscious and able to swallow and NO enteral tube For initial BG 51-69mg/dL OR 15 minute recheck BG 51- 80 mg/dL - give 15 g For BG less than or equal to 50 mg/dL - give 30 g ~ If Enteral tube For initial BG 51-69mg/dL OR 15 minute recheck BG 51- 80 mg/dL - give apple juice 120 mL (4 oz or 15 g of CHO) via enteral tube For BG less than or equal to 50 mg/dL - Give apple juice 240 mL (8 oz or 30 g of CHO) via enteral tube ~Oral gel is preferable for conscious and able to swallow patient. ~IF gel unavailable or patient refuses may provide apple juice per Enteral tube dosing instructions. Document juice on I and O flowsheet. Or dextrose 50 % injection 25-50 mLJump to med 25-50 mL, Intravenous, EVERY 15 MIN PRN, low blood sugar, Administer over 1-5 Minutes, Starting on Fri12/10/23 at 0230, Use if have IV access, BG less than 70 mg/dL and meet dose criteria below: Dose if conscious and alert (or disorientated) and NPO = 25 mL Dose if unconscious / not alert = 50 mL Give first dose for initial blood glucose less than 70 mg/dL. If blood glucose at 15 minute recheck is less than or equal to 80 mg/dL continue to administer carbohydrate treatment every 15 minutes, as needed, based on blood glucose and assessment parameters until blood glucose level is above 80 mg/dL x 2 consecutive 15 minute checks. Or glucagon injection 1 mgJump to med 1 mg, Subcutaneous, EVERY 15 MIN PRN, low blood sugar, May repeat x 1 only, Starting on Fri12/10/23 at 0230, May give SQ or IM. ONLY use glucagon IF patient has NO IV access AND is UNABLE to swallow AND blood glucose is LESS than or EQUAL to 50 mg/dL. Group 3: naloxone (NARCAN) injection 0.2 mgJump to med 0.2 mg, Intravenous, EVERY 2 MIN PRN, opioid reversal, Starting on Fri12/10/23 at 0242, Administer intravenous route when available and notify provider when administered. For unintended sedation or respiratory depression if all of the below criteria are met: ~ respiratory rate LESS than or EQUAL to 8. ~SaO2 less than 92% and or/end-tidal CO2 is greater than 50. ~ the patient is receiving an opioid, has unintended sedations assessed as RASS (-3), and is currently not on mechanical ventilation. RASS scale moderate (-3) is movement or eye opening to voice but no eye contact. Patient Monitoring Once the patient has demonstrated a response to the naloxone, continue to monitor respiratory rate, depth, oxygen saturation and end-tidal CO2 (if available) every 15 minutes x 2, then every 30 minutes x 2, then every 1 hour x 1 after each naloxone dose. Consider transfer to ICU if patient respiratory parameters have not improved after 4 naloxone doses. Or naloxone (NARCAN) injection 0.4 mgJump to med 0.4 mg, Intravenous, EVERY 2 MIN PRN, opioid reversal, Starting on Fri12/10/23 at 0242, Administer intravenous route when available and notify provider when administered. For unintended sedation or respiratory depression if all of the below criteria are met: ~ respiratory rate LESS than or EQUAL to 8. ~ SaO2 less than 92% and or/end-tidal CO2 is greater than 50. ~ the patient is receiving an opioid, has unintended sedation assessed as RASS (-4) or (-5) and patient is currently not on mechanical ventilation. RASS scale (-4) is deep sedation with no response to voice but movement or eye opening to physical stimulation. RASS scale (-5) is unarousable. Patient Monitoring Once the patient has demonstrated a response to the naloxone, continue to monitor respiratory rate, depth, oxygen saturation and end-tidal CO2 (if available) every 15 minutes x 2, then every 30 minutes x 2, then every 1 hour x 1 after each naloxone dose. Consider transfer to ICU if patient respiratory parameters have not improved after 4 naloxone doses. Or naloxone (NARCAN) injection 0.2 mgJump to med 0.2 mg, Intramuscular, EVERY 2 MIN PRN, opioid reversal, Starting on Fri12/10/23 at 0242, Administer intramuscular if an intravenous route is not available and notify provider when administered. For unintended sedation or respiratory depression if all of the below criteria are met: ~ respiratory rate LESS than or EQUAL to 8. ~SaO2 less than 92% and or/end-tidal CO2 is greater than 50. ~ the patient is receiving an opioid, has unintended sedations assessed as RASS (-3), and is currently not on mechanical ventilation. RASS scale moderate (-3) is movement or eye opening to voice but no eye contact. Patient Monitoring Once the patient has demonstrated a response to the naloxone, continue to monitor respiratory rate, depth, oxygen saturation and end-tidal CO2 (if available) every 15 minutes x 2, then every 30 minutes x 2, then every 1 hour x 1 after each naloxone dose. Consider transfer to ICU if patient respiratory parameters have not improved after 4 naloxone doses. Or naloxone (NARCAN) injection 0.4 mgJump to med 0.4 mg, Intramuscular, EVERY 2 MIN PRN, opioid reversal, Starting on Fri12/10/23 at 0242, Administer intramuscular if an intravenous route is not available and notify provider when administered. For unintended sedation or respiratory depression if all of the below criteria are met: ~ respiratory rate LESS than or EQUAL to 8. ~ SaO2 less than 92% and or/end-tidal CO2 is greater than 50. ~ the patient is receiving an opioid, has unintended sedation assessed as RASS (-4) or (-5) and patient is currently not on mechanical ventilation. RASS scale (-4) is deep sedation with no response to voice but movement or eye opening to physical stimulation. RASS scale (-5) is unarousable. Patient Monitoring Once the patient has demonstrated a response to the naloxone, continue to monitor respiratory rate, depth, oxygen saturation and end-tidal CO2 (if available) every 15 minutes x 2, then every 30 minutes x 2, then every 1 hour x 1 after each naloxone dose. Consider transfer to ICU if patient respiratory parameters have not improved after 4 naloxone doses. Group 4: ondansetron (ZOFRAN ODT) ODT tab 4 mgJump to med 4 mg, Oral, EVERY 6 HOURS PRN, nausea, vomiting, Starting on Fri12/10/23 at 0230, This is Step 1 of nausea and vomiting management. If nausea not resolved in 15 minutes, go to Step 2 prochlorperazine (COMPAZINE). With dry hands, peel back foil backing and gently remove tablet. Do not push oral disintegrating tablet through foil backing. Administer immediately on tongue and oral disintegrating tablet dissolves in seconds, then swallow with saliva. Liquid not required. Or ondansetron (ZOFRAN) injection 4 mgJump to med 4 mg, Intravenous, EVERY 6 HOURS PRN, nausea, vomiting, Administer over 2-5 Minutes, Starting on Fri12/10/23 at 0230, Give IF patient unable to tolerate oral medication. This is Step 1 of nausea and vomiting management. If nausea not resolved in 15 minutes, go to Step 2 prochlorperazine (COMPAZINE). Group 5: oxyCODONE IR (ROXICODONE) half-tab 2.5 mgJump to med 2.5 mg, Oral, EVERY 4 HOURS PRN, moderate pain, Starting on Fri12/10/23 at 0230, Hold oral PRN dose for analgesic side effects. Notify provider to assess for uncontrolled pain or analgesic side effects. Hold while on IV ORDER PROCESSING SPECIALIST or with regular IV opioid dosing. Or oxyCODONE (ROXICODONE) tablet 5 mgJump to med 5 mg, Oral, EVERY 4 HOURS PRN, severe pain, Starting on Fri12/10/23 at 0230, Hold oral PRN dose for analgesic side effects. Notify provider to assess for uncontrolled pain or analgesic side effects. Hold while on IV ORDER PROCESSING SPECIALIST or with regular IV opioid dosing. Group 6: senna-docusate (SENOKOT-S/PERICOLACE) 8.6-50 MG per tablet 1 tabletJump to med 1 tablet, Oral, 2 TIMES DAILY PRN, constipation, Starting on Fri12/10/23 at 0230, If no bowel movement in 24 hours, increase to 2 tablets by mouth. IF more than 1 constipation PRN medication is ordered, administer step-oliveros as indicated, moving to the next step ONLY if prior step ineffective. Step 1: senna-docusate (SENOKOT-S; PERICOLACE) OR bisacodyl (DULCOLAX) EC tablet Step 2: polyethylene glycol (MIRALAX/GLYCOLAX) Step 3: bisacodyl (DULCOLAX) suppository Step 4: enema Hold for loose stools. Or senna-docusate (SENOKOT-S/PERICOLACE) 8.6-50 MG per tablet 2 tabletJump to med 2 tablet, Oral, 2 TIMES DAILY PRN, constipation, Starting on Fri12/10/23 at 0230, IF more than 1 constipation PRN medication is ordered, administer step-oliveros as indicated, moving to the next step ONLY if prior step ineffective. Step 1: senna-docusate (SENOKOT-S; PERICOLACE) OR bisacodyl (DULCOLAX) EC tablet Step 2: polyethylene glycol (MIRALAX/GLYCOLAX) Step 3: bisacodyl (DULCOLAX) suppository Step 4: enema Hold for loose stools. documented in this encounter Care Teams Clam Picker Relationship Specialty Start Date End Date Darlene Gamez MD [facility] [address] [address] PCP - General Family Medicine 07/19/22 Zahira Feldman MD [address] [place] [address] Ophthalmology 10/13/17 Dixon Panchal MD [address] [place] [address] Assigned PCP 02/09/[address] [phone] 07/17/22 Eleanor Humphreys PA-C [facility] [address] [place] [address] Assigned Neuroscience Provider 08/31/22 02/29/24 Krysta Bhatti- [facility] OLAMIDE SHANNON 07/15/22 documented as of this encounter
--- OUTSIDE RECORDS SUMMARY | 2024-03-25 13:23 | XMS_ITS | Clinical Summary ---
Author Organization [facility] Address [address] , [address] [place] [address] Phone Care Team Providers Care Natural Resources Technician Name Role Phone Narendra Ricardo MD Conditions or Problems Problem Name Problem Code Onset Date Status Entry Date Provider Comment Standard Description Annotate Gait imbalance 159464469 (SNOMED CT) 04/11 Active 04/11 Narendra Ricardo MD Abnormal gait due to impairment of balance Dementia 39492311 (SNOMED CT) 04/11 Active 04/11 Narendra Ricardo MD Dementia Hypertension 05108105 (SNOMED CT) 09/26 Active 09/26 Narendra Ricardo MD Hypertensive disorder Type 2 diabetes mellitus 10968878 (SNOMED CT) 09/26 Active 09/26 Narendra Ricardo MD Type 2 diabetes mellitus Depression NOS 90266639 (SNOMED CT) 04/13 Active 04/22 Suni Begum PsyD Depressive disorder Mild cognitive impairment 843277441 (SNOMED CT) 04/13 Active 04/22 Suni Begum PsyD Mild neurocognitive disorder Memory loss 80371914 (SNOMED CT) 07/17 Active 07/17 Narendra Ricardo MD Amnesia MIGRAINE VARIANT, 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 (ICD-9-CM) 08/10 Active 08/10 Dick Rashid DO Variants of migraine, not elsewhere classified, without mention of intractable migraine, without mention of status migrainosus HEADACHE 57536820 (SNOMED CT) 08/10 Active 08/10 Dick Michaelsrel DO Headache Medications Medication Instructions Start Date Stop Date Generic Name [facility] Provider DONEPEZIL HCL 10 MG TABS Take 1 tablet by mouth once a day 04/22 donepezil 05054765112 Laila Dinaneftali Aguirreil PA-C DONEPEZIL HCL 23 MG TABS Take 1 tablet by mouth once a day 04/11 donepezil 92645513665 Elva Underwood RN, BSN DONEPEZIL HCL 10 MG TABS Take 1 tablet by mouth once a day 04/11 donepezil 15743463218 Narendra Ricardo MD DONEPEZIL HCL 23 MG TABS Take 1 tablet by mouth once a day 04/11 donepezil 61184931382 Narendra Ricardo MD QUETIAPINE FUMARATE 25 MG TABS take 1 tab by mouth at bedtime 11/13 quetiapine 83246513478 Laila Larkin PA-C VALSARTAN twice a day 10/09 DIOVAN Laila Larkin PA-C ASPIRIN 325 MG TABS once a day 10/09 aspirin 72516644974 Laila Larkin PA-C HYDROCHLOROTHIAZIDE 25 MG TABS once a day 10/09 hydrochlorothiazi de 03953694827 Laila Aguirreil PA-C TEMAZEPAM 30 MG CAPS Bedtime 10/09 temazepam 89738607566 Laila Larkin PA-C HYDROCODONE-ACETAMIN OPHEN 5-325 MG TABS every six hours as needed 10/09 hydrocodone-aceta minophen 37120974001 Laila Aguirreil PA-C POTASSIUM CHLORIDE ER 10 MEQ CR-CAPS twice a day 10/09 potassium chloride 01067979106 Laila Aguirreil PA-C DIAZEPAM 5 MG TABS 1 tablet by mouth 07/23 diazepam 77803817529 Laila Aguirreil PA-C METFORMIN HCL 500 MG TABS 10/09 metformin 76347587907 Laila Aguirreil PA-C FLUTICASONE PROPIONATE HFA 10/09 FLOVENT HFA [facility] THIAMINE HCL once a day 10/09 THIAMINE [facility] INSULIN ISOPHANE twice a day 10/09 HUMAN Laila Dina Trae NEAL TIOTROPIUM BROMIDE MONOHYDRATE once a day 10/09 SPIRIVA HANDIHALER [facility] SENNOSIDES 8.6 MG TABS twice a day as needed 10/09 SENNOSIDES [facility] POTASSIUM CHLORIDE ER 10 MEQ CR-TABS 10/09 potassium chloride 77855117428 [facility]NGEL ALBUTEROL SULFATE HFA 108 (90 Base) MCG/ACT AERS every four hours as needed 10/09 albuterol sulfate 63591396109 [facility] CALCIUM/C/D 500-10-250 MG-MG-UNIT CHEW calcium carbonate 01262442154 [facility] Dina Cherjosema ÁNGEL VITAMIN D3 25 MCG (1000 UT) TABS cholecalciferol (vitamin d3) 22661258246 [facility] Dina Cherjosema ÁNGEL TRELEGY ELLIPTA 200-62.5-25 MCG/ACT AEPB fluticasone-umec l idin-vilanter 76935100601 [facility] DIAZEPAM 5 MG TABS 1 tablet by mouth 07/23 diazepam 88094496202 Narendra Ricardo MD SENNOSIDES 8.6 MG TABS twice a day as needed 10/09 SENNOSIDES Narendra Ricardo MD BISACODYL 10 MG SUPP once a day as needed 04/11 bisacodyl 00555911288 Narendra Ricardo MD VALSARTAN twice a day 10/09 DIOVAN Narendra Ricardo MD VITAMIN B-12 500 MCG TABS once a day cyanocobalamin (vitamin b-12) 47527240685 Narendra Ricardo MD LEVOFLOXACIN 500 MG TABS null 04/11 levofloxacin 69924630900 Narendra Ricardo MD HYDROCHLOROTHIAZIDE 25 MG TABS once a day hydrochlorothiaz i de 20585613186 Narendra Ricardo MD POTASSIUM CHLORIDE ER 10 MEQ CR-CAPS twice a day 11/23 potassium chloride 72368962867 Narendra Ricardo MD TIOTROPIUM BROMIDE MONOHYDRATE once a day 10/09 SPIRIVA HANDIHALER Narendra Ricardo MD ASPIRIN 325 MG TABS once a day 10/09 aspirin 76018136783 Narendra Ricardo MD GLIPIZIDE 10 MG TABS once a day 04/11 glipizide 17708900296 Narendra Ricardo MD CO Q-10 300 MG CAPS once a day coenzyme q10 4146 5340775 Narendra Ricardo MD IRBESARTAN 300 MG TABS twice a day irbesartan 93742129815 Narendra Ricardo MD THIAMINE HCL once a day 10/09 THIAMINE Narendra Ricardo MD DONEPEZIL HCL 5 MG TABS 04/11 donepezil 34514026444 Narendra Ricardo MD NYSTATIN 729937 UNIT/GM CREA 2-3X/Day 04/11 nystatin 13814223000 Narendra Ricardo MD CLONIDINE HCL 0.3 MG TABS three times a day 04/11 clonidine hcl 06357051453 Narendra Ricardo MD ALBUTEROL SULFATE HFA 108 (90 Base) MCG/ACT AERS every four hours as needed 10/09 albuterol sulfate 73991899287 Narendra Ricardo MD FUROSEMIDE 20 MG TABS once a day 04/11 furosemide 50794981087 Narendra Ricardo MD CLOPIDOGREL BISULFATE 75 MG TABS once a day 04/11 clopidogrel 20484965994 Narendra Ricardo MD INSULIN ISOPHANE twice a day 10/09 HUMAN Narendra Ricardo MD TEMAZEPAM 30 MG CAPS Bedtime 10/09 temazepam 13256668112 Narendra Ricardo MD NAPROXEN SODIUM 220 MG TABS twice a day 04/11 naproxen sodium 68100433759 Narendra Ricardo MD BUMETANIDE 0.5 MG TABS twice a day 04/11 bumetanide 03596173572 Narendra Ricardo MD HYDROCODONE-ACETAMIN OPHEN 5-325 MG TABS every six hours as needed 10/09 hydrocodone-aceta minophen 95535949847 Narendra Ricardo MD WARFARIN SODIUM 1 MG TABS once a day 04/11 warfarin 69296038033 Narendra Ricardo MD FLUTICASONE PROPIONATE HFA 10/09 FLOVENT HFA Narendra Ricardo MD HYDROCHLOROTHIAZIDE 25 MG TABS once a day 10/09 hydrochlorothiazi de 06923142557 Narendra Ricardo MD DONEPEZIL HCL 10 MG TABS Take 1 tablet by mouth once a day 04/11 donepezil 87693286454 Narendra Ricardo MD DONEPEZIL HCL 5 MG TABS 04/11 donepezil 67026818354 Narendra Ricardo MD METFORMIN HCL 500 MG TABS 10/09 metformin 74696321512 Narendra Ricardo MD LANTUS SOLOSTAR 100 UNIT/ML SOPN insulin glargine 97984823300 Samira Ricardo MD POTASSIUM CHLORIDE ER 10 MEQ CR-TABS 10/09 potassium chloride 37492685865 Narendra Ricardo MD FLUOXETINE HCL 10 MG CAPS fluoxetine 30692616372 Narendra Ricardo MD DIAZEPAM 5 MG TABS One tab po 30min before scan. July repeat x 1. 07/23 DIAZEPAM 90107116086 Narendra Ricardo MD WARFARIN SODIUM 1 MG TABS Daily 04/11 WARFARIN SODIUM 1 MG ORAL TABLET 69009742721 System Maintenance VALSARTAN (DIOVAN) 160 MG TAB, 160 MG BY MOUTH Twice A Day 04/11 VALSARTAN (DIOVAN) 160 MG TAB, 160 MG BY MOUTH System Maintenance TIOTROPIUM BROMIDE MONOHYDRATE (SPIRIVA HANDIHALER) 18 MCG CAP, 18 MCG INHALED Daily 04/11 TIOTROPIUM 0.018 MG INHALANT POWDER System Maintenance THIAMINE HCL (THIAMINE) 50 MG CAP, 50 MG BY MOUTH Daily 04/11 THIAMINE HCL (THIAMINE) 50 MG CAP, 50 MG BY MOUTH System Maintenance TEMAZEPAM 30 MG CAPS Bedtime 04/11 TEMAZEPAM 30 MG ORAL CAPSULE 45116357337 System Maintenance SENNOSIDES 8.6 MG TABS Twice A Day as needed 04/11 SENNOSIDES, DETENTION 8.6 MG ORAL TABLET 22311101787 System Maintenance POTASSIUM CHLORIDE ER 10 MEQ CR-CAPS Twice A Day 11/23 POTASSIUM CHLORIDE 10 MEQ EXTENDED RELEASE ORAL CAPSULE 98149223611 System Maintenance NYSTATIN 392479 UNIT/GM CREA 2-3X/Day 11/21 NYSTATIN 035493 UNT/ML TOPICAL CREAM 47570329446 System Maintenance NAPROXEN SODIUM 220 MG TABS Twice A Day 04/11 NAPROXEN SODIUM 220 MG ORAL TABLET 66545224050 System Maintenance LEVOFLOXACIN 500 MG TABS null 04/11 LEVOFLOXACIN 500 MG ORAL TABLET 12085353539 System Maintenance IRBESARTAN 300 MG TABS Twice A Day 04/11 IRBESARTAN 300 MG ORAL TABLET 82648457281 System Maintenance INSULIN ISOPHANE (HUMAN) (NOVOLIN N RELION) RELION INJ, 15-25 UNIT SUBCUTANEOUSL Twice A Day 04/11 INSULIN HUMAN, ISOPHANE 100 UNT/ML INJECTABLE SUSPENSION System Maintenance HYDROCHLOROTHIAZIDE 25 MG TABS Daily 04/11 HYDROCHLOROTHIAZI DE 25 MG ORAL TABLET 41433402452 System Maintenance HYDROCHLOROTHIAZIDE 25 MG TABS Daily 04/11 HYDROCHLOROTHIAZI DE 25 MG ORAL TABLET 45382891862 System Maintenance GLIPIZIDE 10 MG TABS Daily 04/11 GLIPIZIDE 10 MG ORAL TABLET 08099989937 System Maintenance FUROSEMIDE 20 MG TABS Daily 04/11 FUROSEMIDE 20 MG ORAL TABLET 60031773868 System Maintenance FLUTICASONE PROPIONATE HFA (FLOVENT HFA) 220 MCG/ACT AER 04/11 120 ACTUAT FLUTICASONE PROPIONATE 0.22 MG/ACTUAT METERED DOS System Maintenance B-12 500 MCG TABS Daily 04/11 VITAMIN B 12 0.5 MG ORAL TABLET 88620593247 System Maintenance CO Q-10 300 MG CAPS Daily 04/11 COENZYME Q10 300 MG ORAL CAPSULE 54383968790 System Maintenance CLOPIDOGREL BISULFATE 75 MG TABS Daily 04/11 CLOPIDOGREL 75 MG ORAL TABLET 28890881316 System Maintenance CLONIDINE HCL 0.3 MG TABS Three Times A Day 04/11 CLONIDINE HYDROCHLORIDE 0.3 MG ORAL TABLET 99819194207 System Maintenance BUMETANIDE 0.5 MG TABS Twice A Day 04/11 BUMETANIDE 0.5 MG ORAL TABLET 41122486852 System Maintenance BISACODYL LAXATIVE 10 MG SUPP Daily as needed 04/11 BISACODYL 10 MG RECTAL SUPPOSITORY 88883107450 System Maintenance ASPIRIN 325 MG TABS Daily 04/11 ASPIRIN 325 MG ORAL TABLET 66034756506 System Maintenance ALBUTEROL SULFATE HFA 108 (90 Base) MCG/ACT AERS Every 4 Hours as needed 04/11 200 ACTUAT ALBUTEROL 0.09 MG/ACTUAT METERED DOSE INHALER 38968936570 System Maintenance HYDROCODONE-ACETAMIN OPHEN 5-325 MG TABS Every 6 Hours as needed 04/11 ACETAMINOPHEN 325 MG / HYDROCODONE BITARTRATE 5 MG ORAL TABL 73723528121 System Maintenance Medications Administered No information available. Allergies, Adverse Reactions, Alerts Allergy Name Reaction Description Start Date Severity Statu s Provider SITAGLIPTIN Severe, Active Mild Active Ol iver Haleigh SHANNON SIMVASTATIN Active Mild Active Narendra Haleigh SHANNON PIOGLITAZONE Severe, Active Mild Active O liver Ni PENICILLIN V Active Mild Active Narendrarikki Ricardo MD NAPROXEN Severe, Active Mild Active Oliv er Haleigh SHANNON METOPROLOL Severe, Active Mild Active Tanner nereyda Haleigh SHANNON METFORMIN Severe, Active Mild Active Oliv er Haleigh SHANNON LOSARTAN Active Mild Active Narendrarikki Ricardo MD LISINOPRIL Severe, Active Mild Active Tanner nereyda Haleigh SHANNON LEVOFLOXACIN Moderate, Active Mild Active Narendra Haleigh SHANNON INSULIN DETEMIR Severe, Active Mild Active Narendra Haleigh SHANNON INSULIN Severe, Active Mild Active Oliv er Ni FUROSEMIDE Severe, Active Mild Active Tanner nereyda Haleigh SHANNON EXENATIDE Moderate, Active Mild Active Ol iver Haleigh SHANNON AZITHROMYCIN Severe, Active Mild Active O liver Ni AMLODIPINE Severe, Active Mild Active Tanner nereyda Haleigh SHANNON Results Date Name Value Unit Range Flag Description Office Visit: fax SMOK STATUS 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 Replaced Document: (P) T4, F REE, TSH, VITAMIN B12 B-12 * pg/mL Cobalamin (Vitamin B12) [Mass/volume] in Serum or Plasma TSH 1.75 u[iU]/mL 0.40-4.50 N Thyrotropi n [Units/volume] in Serum or Plasma FRT4 1.0 0.8-1.8 N FREE T4 Internal Other: Verbal Autho rization/Emergency Contact - OBS VERBAL_EMER DONE Verbal authorization and emergency contact External Correspondence: [facility] Directive/Healthcare power of electrical inspector - OBS AD DISCUSSED Advanced care planning discussed Advanced directive discussed w/member/caregive r; Patient received counseling regarding palliation - symptom management - end of life decisions Internal Other: Authorizatio n - OBS [email or web address] Yes Authoriza tion: Release of Information - Authorize [facility] - Payment and Healthcare Operations ROIAUTHOTHER Yes Authoriz ation: Release of Information - Authorize Others/Insurance - Payment and Healthcare Operations HIECONSENT Yes Consent To Release information to the Health Information Exchange (HIE) [email or web address] Yes Authorizat ion: Authorization for [facility] to leave messages, voicemail, send text messages, send emails AUTHRELHCARE Yes Authoriz ation: Release/Retrieval of Information to/from Healthcare Facilities, Pharmacy Benefit Payers and Providers AUTHPRIVPRAC Yes Authoriz ation: Notice of privacy practices AUTHBENEFIT Yes Authoriza tion: Assignment of Benefits and Payment Agreement Office Visit: Office Visit f ax MEDS REVIEW Done Documenta tion of current medications (procedure) DEMENTIA2 Assessment of cognition performed and results reviewed. Total score [MMSE] [id number] Mild Total scor e [MoCA] MMSE SCORE 21 Total scor e [MMSE] Plan of Care Type Date Detail Appointment 10:00 AM [place] , [address], [address], [place], [address], Pending order Follow up Pending order Follow up Pending order Obtain outside r ecords Pending order Obtain outside r ecords Pending order Patient Instruct ions Pending order Follow up DOUGLAS Pending order Follow up DOUGLAS Pending order Patient Instruct ions Pending order Obtain outside r ecords Pending order Follow up Pending order Patient Instruct ions Pending order Follow up DOUGLAS in clinic or telemedicine Pending order Occupational The rapy Pending order Patient Instruct ions Pending order Follow up teleme dicine Pending order Neuropsychology Evaluation Pending order Patient Instruct ions Pending order Follow up Pending Order exclud ed from report: Pending order Follow up Pending order Patient Instruct ions Pending order Patient Instruct ions Pending order Follow up DOUGLAS Pending order Patient Instruct ions Pending order Consult Pending order Follow up Pending order Neuropsych Testi ng Pending order Patient Instruct ions Pending order MRI-Brain W/O Pending order T4 Free Direct Pending order TSH Pending order Vitamin B12 Procedures Code Procedure Name Date Entry Date [facility] [address]-5 MMSE ORDERS Patient Instructions ORDERS Patient Instructions [facility]-[id number] Documentation of current medicatio ns ORDERS Follow up [facility] 13690-9 MMSE ORDERS Obtain outside records 04/11 ORDERS Follow up DOUGLAS in clinic or telemedicine 2 [facility] [address]39[address]-6 MMSE ORDERS Patient Instructions ORDERS Occupational Therapy SCT-[id number] Documentation of current medicatio ns ORDERS Patient Instructions SCT-[id number] Documentation of current medicatio ns CPT-66205 Free Service ORDERS Follow up telemedicine 11/28 ORDERS Neuropsychology Evaluation 2 ORDERS Patient Instructions SCT-[id number] Documentation of current medicatio ns ORDERS Follow up ORDERS Patient Instructions ORDERS Patient Instructions SCT-[id number] Documentation of current medicatio ns ORDERS Follow up DOUGLAS [id number] Consult SCT-[id number] Documentation of current medicatio ns ORDERS Patient Instructions ORDERS Follow up CPT-94320 Npsy Interp/Rpt by Provider - 1st hour 29/03/06 ORDERS Neuropsych Testing 0 CPT-44809 Npsy Interview w/Provider - 1st hour 2018 CPT-15072 Npsy Interp/Rpt by Provider - 1st hour 20 26/02/04 CPT-45646 Npsy Interp/Rpt by Provider - 2 hours 201 11/20/03 CPT-36388 Npsy Test by Tech (2+ Tests) - 1st 30 min CPT-48865 Npsy Test by Tech (2+ Tests) - 1.5 hours CPT-64986 MRI Brain W/O [id number] MRI-Brain W/O [facility]-[id number] Documentation of current medicatio ns ORDERS Patient Instructions ORDERS T4 Free Direct ORDERS TSH ORDERS Vitamin B12 Vital Signs Date Name Value Unit Description Height 66 [in_us] height E&M BP Diastolic 92 mm[Hg] blood pressu re, diastolic BP Systolic 140 mm[Hg] blood pressur e, systolic Heart Rate 72 /min pulse rate BMI (Body Mass Index) 45.36 kg/m2 Bod y Mass Index (Ratio) Weight Measured 280 [lb_av] weight E& M Immunizations No information available. Advance Directives No information available.
--- OUTSIDE RECORDS SUMMARY | 2024-09-04 07:22 | XMS_ITS | CCD ---
Author Name Linda Vivas Address [address] [facility] [address] [place] [address] Phone Organization [facility] Phone Care Team Providers Care Online Publisher Name Role Phone Teresa Vivas Primary Care Provider Un available Unavailable Chronic Care Management Unavaila ble Summary Purpose DataExchange Insurance Providers Payer name Policy type / Coverage type Covered republican ID Effective Begin Date Effective End Date BCBS of [facility] Medicare Risk [id number] Unknown Un known Family history Mother Diagnosis Age At Onset Stroke Unknown Social History Social History Element Codes Description Effec tive Dates Marital status Unknown 04/13/2024 Marital status Unknown 04/13/2024 Living arrangements Unknown Assisted Living 04/[address]: 0594815 Former smoker 04/[address]: 6974360 Former smoker 04/[address]: 366475956 No Alcohol Consum ption 04/13/[address]: 402244 Currently drin ks alcohol 04/13/2024 Sexually Active? [...] No Inactive Date A ctive SIMVASTATIN RxNorm: 26275 04/13/2024 No Inactive D ate Active Penicillin Unknown 04/13/2024 No Inactive Date A ctive CLOPIDOGREL Unknown 03/23/2024 No Inactive Date Active naproxen RxNorm: 7258 04/13/2024 No Inactive Date Active levofloxacin RxNorm: 02466 03/23/2024 No Inactive Date Active Levemir Unknown 03/23/2024 No Inactive Date Ac tive metformin RxNorm: 279790 04/13/2024 No Inactive Da te Active ESTROGENS Unknown 03/23/2024 No Inactive Date Ac tive Atenolol RxNorm: 1202 04/13/2024 No Inactive Date Active metoprolol succinate RxNorm: 822558 03/23/2024 No Inactive Date Active Januvia RxNorm: 632077 04/13/2024 No Inactive Da te Active furosemide RxNorm: 4603 03/23/2024 No Inactive Balaji e Active azithromycin RxNorm: 76433 04/13/2024 No Inactive Date Active losartan RxNorm: 861538 04/13/2024 No Inactive Da te Active NSAIDS Unknown 03/23/2024 No Inactive Date Ac tive Amlodipine RxNorm: 364912 04/13/2024 No Inactive D ate Active LISINOPRIL RxNorm: 26397 04/13/2024 No Inactive Da te Active PIOGLITAZONE DERIVATIVES Unknown 04/13/2024 No I nactive Date Active Problems Condition Codes Effective Dates Condition St atus Chronic heart failure with preserved ejection fraction ICD-10: I50.32 ICD-9: 428.9 08/31/2024 Active Chronic obstructive pulmonar y disease, unspecified COPD type ICD-10: J44.9 ICD-9: 496 08/31/2024 Active Primary hypertension ICD-10: I10 ICD-9: 401.9 08/31/2024 Active Type 2 diabetes mellitus without complication, unspecified whether halfway insulin use ICD-10: E11.9 ICD-9: 250.00 08/31/2024 Active Urinary incontinence, unspecified type ICD-10: R32 ICD-9: 788.30 08/31/2024 Active Atrial fibrillation, unspecified type ICD-10: I48.91 ICD-9: 427.31 08/10/2024 Active Pressure injury of left buttock, stage 2 ICD-10: L89.322 ICD-9: 707.05 08/10/2024 Active Unsteady gait ICD-10: R26.81 ICD-9: 781.2 08/10/2024 Active Vascular dementia, unspecifi ed severity, without behavioral disturbance, psychotic disturbance, mood disturbance, and anxiety ICD-10: F01.50 08/10/2024 Active Acute cystitis without hematuria ICD-10: N30.00 ICD-9: 595.0 08/10/2024 Resolved Iron deficiency anemia, unspecified iron deficiency anemia type ICD-10: D50.9 ICD-9: 280.9 06/29/2024 Active ACP (advance care planning) SNOMED CT: 3 45256236 ICD-10: Z71.89 ICD-9: V65.49 06/01/2024 Active Adult general medical exam SNOMED CT: 30 9672170 ICD-10: Z00.00 ICD-9: V70.9 06/01/2024 Active Atherosclerosis of coronary artery of [place] heart without angina pectoris, unspecified vessel or lesion type ICD-10: I25.10 ICD-9: 414.01 06/01/2024 Active 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 ICD-9: 311 06/01/[address]: 016756501 ICD-10: R54 ICD-9: 797 06/01/2024 Active 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 ICD-9: 331.0 06/01/2024 Active CAMILO (obstructive sleep apnea) ICD-10: G4 7.33 ICD-9: 327.23 06/01/2024 Active Osteopenia, unspecified location ICD-10: M85.80 ICD-9: 733.90 06/01/2024 Active Unintentional weight loss ICD-10: R63.4 ICD-9: 783.21 06/01/2024 Active Venous insufficiency of both lower extremities ICD-10: I87.2 ICD-9: 459.81 06/01/2024 Active Advanced care planning - to document end of life discussions Unknown 04/13/2024 Active Diabetes mellitus Type 2 Unknown 04/13/2024 Act floyd Compression fracture of L1 vertebra, sequela SNOMED CT: 311981084 ICD-10: S32.010S ICD-9: 905.1 04/13/2024 Active Dementia in other diseases classified elsewhere, unspecified severity, without behavioral disturbance, psychotic disturbance, mood disturbance, and anxiety ICD-10: F02.80 04/13/[address]: 642663978 ICD-10: K57.90 ICD-9: 562.10 04/13/2024 Active History of breast cancer SNOMED CT: 4290 77851 ICD-10: Z85.3 ICD-9: V10.3 04/13/2024 Active History of melanoma SNOMED CT: 812133030 ICD-10: Z85.820 ICD-9: V10.82 04/13/2024 Active History of TIA (transient ischemic attack) SNOMED CT: 159550027 ICD-10: Z86.73 ICD-9: V12.54 04/13/2024 Active Hyperlipidemia, unspecified hyperlipidemia type SNOMED CT: 37713171 ICD-10: E78.5 ICD-9: 272.4 04/13/2024 Active Statin intolerance SNOMED CT: 783683511 ICD-10: Z78.9 ICD-9: 995.27 04/13/2024 Active Medications Medication Codes Instructions Start Date Stop Date Status Fill Instructions albuterol sulfate 2.5 mg/3 mL (0.083 %) solution for nebulization RxNorm: 993509 Take 3 Milliliter(s) Inhalation BID and BID PRN for shortness of breath/cough. 09/01/19 25 026 Active furosemide 40 mg tablet RxNorm: 140367 Take 1 Tablet(s) Oral QD 08/20/19 25 025 Inactive furosemide 40 mg tablet RxNorm: 703007 Take 1 Tablet(s) Oral QD 08/20/19 25 025 Inactive Contour Next EZ Meter RxNorm: USE TO JENIFER T BLOOD GLUCOSE DAILY (DX: DIABETES TYPE 2) 08/18/19 25 025 Active Contour Next Test Strips RxNorm: Use 1 strip BID 08/17/19 25 026 Active carvedilol 6.25 mg tablet RxNorm: 973511 Take 1 Tablet(s) Oral BID 08/10/19 25 No Stop Date Active nystatin 100,000 unit/gram topical powder RxNorm: 716277 Gram(s) Topical apply to affected area BID 08/10/19 25 025 Inactive hydrochlorothiazide 50 mg tablet RxNorm: 329177 Take 1 Tablet(s) Oral QD 08/07/19 25 No Stop Date Active Lantus Solostar U-100 Insulin 100 unit/mL (3 mL) subcutaneous pen RxNorm: 455584 Unit(s) Subcutaneous inject 14 units every am 08/07/19 25 No Stop Date Active Vitron-C 65 mg iron-125 mg tablet,delayed release RxNorm: 2521113 1 Tablet(s) Oral QOD every other day 07/23/19 25 025 Inactive *URGENT REQUEST* PLEASE SEND REFILLS FOR CYCLE FILL. THANK YOU! Oyster Shell Calcium-500 500 mg (as carbonate 1,250 mg) tablet RxNorm: 239588 1 TABLET ORALLY DAILY FOR BONE HEALTH 07/09/19 25 026 Active PLEASE SEND REFILLS.PHARMA CY PLEASE PROFILE FOR FUTURE USE-[facility] Co Q-10 200 mg capsule RxNorm: 113839 1 CAPSULE ORALLY DAILY W/ 100MG CAP FOR A TOTAL DOSE OF 300MG (DX: SUPPLEMENT) 07/09/19 25 026 Active PLEASE SEND REFILLS.PHARMA CY PLEASE PROFILE FOR FUTURE USE-[facility] oxybutynin chloride ER 10 mg tablet,extended release 24 hr RxNorm: 653552 1 TAB ORALLY EVERY EVENING FOR BLADDER SPASMS 07/09/19 25 026 Active PLEASE SEND REFILLS.PHARMA CY PLEASE PROFILE FOR FUTURE USE-[facility] Trelegy Ellipta 200 mcg-62.5 mcg-25 mcg powder for inhalation RxNorm: 9117310 INHALE 1 PUFF INTO THE LUNGS EVERY 24 HOURS (DX: CHRONIC OBSTRUCTIVE PULMONARY DISEASE) 07/09/19 25 026 Active PLEASE SEND REFILLS.PHARMA CY PLEASE PROFILE FOR FUTURE USE-[facility] fluoxetine 10 mg capsule RxNorm: 394735 1 CAPSULE ORALLY DAILY (DX: DEPRESSION) (DX: ANXIETY) 07/09/19 026 Active PLEASE SEND REFILLS.PHARMA CY PLEASE PROFILE FOR FUTURE USE-Medical[facility] irbesartan 150 mg tablet RxNorm: 472102 1 TABLET ORALLY 2 TIMES DAILY (DX: HYPERTENSION) 07/09/19 026 Active PLEASE SEND REFILLS.PHARMA CY PLEASE PROFILE FOR FUTURE USE-[facility] cholecalciferol (vitamin D3) 25 mcg (1,000 unit) tablet RxNorm: 475031 1 TABLET ORALLY DAILY (DX: VITAMIN D DEFICIENCY) 07/09/19 026 Active PLEASE SEND REFILLS.PHARMA CY PLEASE PROFILE FOR FUTURE USE-[facility] quetiapine 25 mg tablet RxNorm: 038867 1 TABLET ORALLY AT BEDTIME (DX: ANXIETY) 07/09/19 Active PLEASE SEND REFILLS.PHARMA CY PLEASE PROFILE FOR FUTURE USE-[facility] coenzyme Q10 100 mg capsule RxNorm: 933305 1 CAPSULE ORALLY DAILY W/ 200MG CAP FOR A TOTAL DOSE OF 300MG (DX: SUPPLEMENT) 07/09/19 Active PLEASE SEND REFILLS.PHARMA CY PLEASE PROFILE FOR FUTURE USE-[facility] donepezil 10 mg tablet RxNorm: 491089 1 TABLET ORALLY AT BEDTIME (DX: DEMENTIA) 07/09/19 Active PLEASE SEND REFILLS.PHARMA CY PLEASE PROFILE FOR FUTURE USE-[facility] alcohol swabs RxNorm: 896689 USE DIRECTED 07/09/19 Active PLEASE SEND REFILLS.PHARMA CY PLEASE PROFILE FOR FUTURE USE-[facility] Vitron-C 65 mg iron-125 mg tablet,delayed release RxNorm: 2627934 1 Tablet(s) Oral QOD every other day 07/09/19 25 025 Inactive PLEASE SEND REFILLS.PHARMA CY PLEASE PROFILE FOR FUTURE USE-[facility] cyanocobalamin (vit B-12) 500 mcg tablet RxNorm: 447925 1 TABLET ORALLY DAILY (DX: ANEMIA) 07/09/19 25 025 Inactive PLEASE SEND REFILLS.PHARMA CY PLEASE PROFILE FOR FUTURE USE-[facility] hydrochlorothiazide 25 mg tablet RxNorm: 862670 1 TABLET ORALLY DAILY (DX: HYPERTENSION) 07/09/19 25 025 Inactive PLEASE SEND REFILLS.PHARMA CY PLEASE PROFILE FOR FUTURE USE-[facility] Contour Next EZ Meter RxNorm: USE TO JENIFER T BLOOD GLUCOSE DAILY (DX: DIABETES TYPE 2) 07/09/19 25 025 Inactive PLEASE SEND REFILLS.PHARMA CY PLEASE PROFILE FOR FUTURE USE-[facility] Alejandra Protect (zinc oxide) 12 % topical cream RxNorm: 306504 APPLY TO RIGHT BUTTOCK 2 TIMES DAILY;APPLY TO RIGHT BUTTOCK NEEDED WITH SOILING 06/12/19 25 026 Active albuterol sulfate HFA 90 mcg/actuation aerosol inhaler RxNorm: 2925801 Inhale 2 Puff(s) Inhalation Q4H every four hours as needed 06/01/19 25 025 Inactive Alejandra Protect (zinc oxide) 12 % topical cream RxNorm: 883902 cream Topical apply to right buttocks BID and PRN with soiling 06/01/19 25 025 Inactive Lantus Solostar U-100 Insulin 100 unit/mL (3 mL) subcutaneous pen RxNorm: 404612 Unit(s) Subcutaneous prime en with 2 units, then inject 8 units SQ QD at bedtime 05/18/19 025 Inactive potassium chloride ER 10 mEq tablet,extended release RxNorm: 504290 Take 1 Tablet(s) Oral QD 04/12/19 25 No Stop Date Active acetaminophen 500 mg tablet RxNorm: 623414 Take 2 Tablet(s) Oral TID as needed 04/12/19 25 No Stop Date Active fluoxetine 10 mg capsule RxNorm: 601001 Take 1 Capsule(s) Oral QD 04/12/19 25 025 Inactive hydrochlorothiazide 25 mg tablet RxNorm: 490983 Take 1 Tablet(s) Oral QD 04/12/19 25 025 Inactive Oyster Shell Calcium 500 mg (as calcium carbonate 1,250 mg) tablet RxNorm: 230009 Take 1 Tablet(s) Oral QD 04/12/19 25 025 Inactive Co Q-10 200 mg capsule RxNorm: 785266 Capsule(s) Oral take 1 cap po daily with 100mg tab to =300mg daily 02/03/ 025 Inactive Co Q-10 100 mg capsule RxNorm: 366880 Capsule(s) Oral take 1 cap daily along with 200mg tab to =300mg daily 04/12/19 025 Inactive quetiapine 25 mg tablet RxNorm: 220450 Take 1 Tablet(s) Oral QHS every night at bedtime 04/12/19 025 Inactive Vitamin D3 25 mcg (1,000 unit) tablet RxNorm: 397404 Take 1 Tablet(s) Oral QD 04/12/19 025 Inactive donepezil 10 mg tablet RxNorm: 070969 Take 1 Tablet(s) Oral QHS every night at bedtime 04/12/19 025 Inactive cyanocobalamin (vit B-12) 500 mcg tablet RxNorm: 824449 Take 1 Tablet(s) Oral QD 04/12/19 025 Inactive oxybutynin chloride ER 10 mg tablet,extended release 24 hr RxNorm: 078082 Take 1 Tablet(s) Oral QPM every evening 04/12/19 025 Inactive irbesartan 150 mg tablet RxNorm: 079495 Take 1 Tablet(s) Oral BID 04/12/19 025 Inactive Trelegy Ellipta 200 mcg-62.5 mcg-25 mcg powder for inhalation RxNorm: 1533700 Inhale 1 Puff(s) Inhalation every 24 hours 04/12/19 025 Inactive Vitron-C 65 mg iron-125 mg tablet,delayed release RxNorm: 5747752 Take 1 Tablet(s) Oral QOD every other day 04/12/19 025 Inactive Eliquis 5 mg tablet RxNorm: 0084593 Take 1 Tablet(s) Oral BID 04/12/19 025 Inactive Lantus Solostar U-100 Insulin 100 unit/mL (3 mL) subcutaneous pen RxNorm: 331068 Unit(s) Subcutaneous prime en with 2 units, [...] Item Item Code Result Date Service Location Basic Metabolic Panel [id number] POTASSIUM (XU) 2823-3 3.8 mmol/L 09/04/19 25 Unknown Basic Metabolic Panel [id number] CHLORIDE (XU) 98 mmol/L 09/04/19 25 Unknown Basic Metabolic Panel [id number] CO2 (XU) 30 mmol/L 09/04/19 25 Unknown Basic Metabolic Panel [id number] Calcium 9.3 mg/dL 09/04/19 25 Unknown Basic Metabolic Panel [id number] ANION GAP (XU) 10 mmol/L 09/04/19 25 Unknown Basic Metabolic Panel [id number] Creatinine 0.76 mg/dL 09/04/19 25 Unknown Basic Metabolic Panel [id number] GLUCOSE (XU) 2345-7 71 mg/dL 09/04/19 25 Unknown Basic Metabolic Panel [id number] Sodium 138 mmol/L 09/04/19 25 Unknown Basic Metabolic Panel [id number] UREA NITROGEN (XU) 16.5 mg/dL 09/04/19 25 Unknown Basic Metabolic Panel [id number] GFR, ESTIMATE 95478-4 75 mL/min/1.7 3m2 09/04/19 25 Unknown Vital Signs Date Vital 08/31/2024 Blood Pressure 1: 142/70 Code: 8480-6 Heart Rate 1: 82 bpm Code: 8867-4 Respiratory Rate: 20 bpm SpO2: 91% Temperature: 35.4 (C) / 95.8 (F) Weight: 208 lbs 6 oz Code: 3141-9 Functional Status Functional / Cognitive Codes Status Result Ef fective Dates Functional Assessment Unknown ADL - Dressing Independen t 04/13/2024 Functional Assessment Unknown ADL - Feeding Independent 04/13/2024 Functional Assessment Unknown ADL - Toileting Independe nt 04/13/2024 Functional Assessment Unknown ADL [...] Encounter Performer Location Location Address Codes Date (90612) Home Visit - Est Pt, moderate Diagnosis: Primary hypertension[ICD10 : I10] Diagnosis: Chronic heart failure with preserved ejection fraction[ICD10: I50.32] Diagnosis: Chronic obstructive pulmonary disease, unspecified COPD type[ICD10: J44.9] Diagnosis: Type 2 diabetes mellitus without complication, unspecified whether long distance operator insulin use[ICD10: E11.9] Diagnosis: Urinary incontinence, unspecified type[ICD10: R32] Teresa Boothetinger [facility] [address] [place] [address] CPT-4: 59784 08/31/2024 Plan of Care Planned Activity Notes Codes Status Date Patient Education: Patient Medication Summary Completed 08/31/2024 Patient Education: Influenza Complet ed 08/31/2024 Appointment: Michela Talbot WPtel: [phone] F/U 08/03/2024 Appointment: Michela Talbot WPtel: [phone] FREIGHT BRAKEMAN 04/13/2024 Instructions Comment Date Alyx resides at [facility] since about 2021. Previously lived independently in [place]. . Has one daughter Maggie who is involved in healthcare. PMH: History of breast cancer and melanoma, mixed dementia, depression, CAD, HLD, history of CVA/TIA, compression fx of L1 vertebrae, urinary incontinence, hearing loss, osteopeniaPrimary contact: Maggie Gallegos (Daughter)Code Status: DNR/SelectLab Schedule: Mar/SepSpecialists: [facility] (Q6M), Cardiology [facility] (MD Echo) 08/06/2024 Chronic heart failure with p reserved ejection fraction Increased edema and shortness of breath reported by staff. CXR revealed pulmonary edema vs interstitial pneumonitis. Treated with 5 day burst of HCTZ 100mg (typically on 50mg daily). Nursing states she has been stable since. Repeat BMP. On exam today, lungs CTA, no labored breathing. Legs are edematous, wearing tubi dialysis nurse. Nursing reached out to TCU in regards to previous compression wraps, they're connecting with a lymph PT for further instruction. She has been utilizing a wheelchair more than her walker which is likely leading to increased edema status. Encourage walker use, exercise, tubi dialysis nurse, and elevation. Will continue on HCTZ as well. Type 2 diabetes mellitus without complication, unspecified whether long distance operator insulin use Sugars reviewed; stable in 90-200 range. Managed on lantus 8 units QHS. Urinary incontinence, unspecified type Recommend discontinuing oxybutynin or at least tapering this off over the next few weeks. Anticholinergic medications are not recommended in geriatric patients. Can contribute to HTN, constipation, falls, and urinary retention. She is managed on a diuretic which likely contributes to her urinary incontinence. She also suffers from dementia, which incontinence is commonly seen in as well. Chronic obstructive pulmonary disease, unspecified COPD type She continues on Trelegy 200-62.5-25mcg daily. Has albuterol inhaler prn although given her dementia she forgets she has this available. Will switch to albuterol nebs BID and BID PRN to avoid exacerbation. Ordering nebulizer machine today. [id number] visit with patient today regarding the need for nebulizer machine due high risk exacerbation of her COPD and repeat hospitalizations. Observations gathered via [id number] examination and evaluation by PA. Patient is home bound due to co morbidities making it a hardship to leave home for services or care. Primary hypertension BP 142/70, managed on irbesartan 150mg BID and HCTZ 25mg daily. See urinary incontinence plan.. 08/31/2024
--- OUTSIDE RECORDS SUMMARY | 2024-09-04 07:23 | XMS_ITS | CCD ---
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 Care [facility] Name Role Phone Teresa Vivas Primary Care Provider Un available Unavailable Chronic Care Management Unavaila ble Summary Purpose DataExchange Insurance Providers Payer name Policy type / Coverage type Covered libertarian ID Effective Begin Date Effective End Date [employer] H[place] Medicare Risk [id number] Unknown Un known Family history Mother Diagnosis Age At Onset Stroke Unknown Social History Social History Element Codes Description Effec tive Dates Marital status Unknown 04/13/2024 Marital status Unknown 04/13/2024 Living arrangements Unknown Assisted Living 04/[address]: 2933021 Former smoker 04/[address]: 2960621 Former smoker 04/[address]: 761051463 No Alcohol Consum ption 04/13/[address]: 859114 Currently drin ks alcohol 04/13/2024 Sexually Active? [...] No Inactive Date A ctive SIMVASTATIN RxNorm: 43058 04/13/2024 No Inactive D ate Active Penicillin Unknown 04/13/2024 No Inactive Date A ctive CLOPIDOGREL Unknown 03/23/2024 No Inactive Date Active naproxen RxNorm: 7258 04/13/2024 No Inactive Date Active levofloxacin RxNorm: 59896 03/23/2024 No Inactive Date Active Levemir Unknown 03/23/2024 No Inactive Date Ac tive metformin RxNorm: 442326 04/13/2024 No Inactive Da te Active ESTROGENS Unknown 03/23/2024 No Inactive Date Ac tive Atenolol RxNorm: 1202 04/13/2024 No Inactive Date Active metoprolol succinate RxNorm: 659016 03/23/2024 No Inactive Date Active Januvia RxNorm: 800733 04/13/2024 No Inactive Da te Active furosemide RxNorm: 4603 03/23/2024 No Inactive Balaji e Active azithromycin RxNorm: 28051 04/13/2024 No Inactive Date Active losartan RxNorm: 054605 04/13/2024 No Inactive Da te Active NSAIDS Unknown 03/23/2024 No Inactive Date Ac tive Amlodipine RxNorm: 727085 04/13/2024 No Inactive D ate Active LISINOPRIL RxNorm: 14244 04/13/2024 No Inactive Da te Active PIOGLITAZONE [...] diabetes mellitus without complication, unspecified whether long wall shear operator insulin use ICD-10: E11.9 ICD-9: 250.00 06/29/2024 Active ACP (advance care planning) SNOMED CT: 3 34618647 ICD-10: Z71.89 ICD-9: V65.49 06/01/2024 Active Adult general medical exam SNOMED CT: 30 0510780 ICD-10: Z00.00 ICD-9: V70.9 06/01/2024 Active Atherosclerosis of coronary artery of [place] heart without angina pectoris, unspecified vessel or lesion type ICD-10: I25.10 ICD-9: 414.01 06/01/2024 Active Atrial fibrillation, unspecified type ICD-10: I48.91 ICD-9: 427.31 06/01/2024 Active 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 ICD-9: 311 06/01/[address]: 562385992 ICD-10: R54 ICD-9: 797 06/01/2024 Active Mixed [...] fracture of L1 vertebra, sequela SNOMED CT: 837964813 ICD-10: S32.010S ICD-9: 905.1 04/13/2024 Active Dementia in other diseases classified elsewhere, unspecified severity, without behavioral disturbance, psychotic disturbance, mood disturbance, and anxiety ICD-10: F02.80 04/13/[address]: 155474927 ICD-10: K57.90 ICD-9: 562.10 04/13/2024 Active History of breast cancer SNOMED CT: 4290 94587 ICD-10: Z85.3 ICD-9: V10.3 04/13/2024 Active History of melanoma SNOMED CT: 357393384 ICD-10: Z85.820 ICD-9: V10.82 04/13/2024 Active History of TIA (transient ischemic attack) SNOMED CT: 440666447 ICD-10: Z86.73 ICD-9: V12.54 04/13/2024 Active Hyperlipidemia, unspecified hyperlipidemia type SNOMED CT: 24851180 ICD-10: E78.5 ICD-9: 272.4 04/13/2024 Active Statin intolerance SNOMED CT: 024048043 ICD-10: Z78.9 ICD-9: 995.27 04/13/2024 Active Urinary incontinence, unspecified type SNOMED CT: 881743221 ICD-10: R32 ICD-9: 788.30 04/13/2024 Active Vascular dementia, unspecifi ed severity, without behavioral disturbance, psychotic disturbance, mood disturbance, and anxiety ICD-10: F01.50 04/13/2024 Active Medications Medication Codes Instructions Start Date Stop Date Status Fill Instructions Vitron-C 65 mg iron-125 mg tablet,delayed release RxNorm: 2555712 1 Tablet(s) Oral QOD every other day 07/23/19 25 025 Inactive *URGENT REQUEST* PLEASE SEND REFILLS FOR CYCLE FILL. THANK YOU! Oyster Shell Calcium-500 500 mg (as carbonate 1,250 mg) tablet RxNorm: 285463 1 TABLET ORALLY DAILY FOR BONE HEALTH 07/09/19 25 026 Active PLEASE SEND REFILLS.PHARMA [employer] PLEASE PROFILE FOR FUTURE USE-[facility] Co Q-10 200 mg capsule RxNorm: 860809 1 CAPSULE ORALLY DAILY W/ 100MG CAP FOR A TOTAL DOSE OF 300MG (DX: SUPPLEMENT) 07/09/19 25 026 Active PLEASE SEND REFILLS.PHARMA CY PLEASE PROFILE FOR FUTURE USE-[facility] oxybutynin chloride ER 10 mg tablet,extended release 24 hr RxNorm: 795057 1 TAB ORALLY EVERY EVENING FOR BLADDER SPASMS 07/09/19 25 026 Active PLEASE SEND REFILLS.PHARMA CY PLEASE PROFILE FOR FUTURE USE-[facility] Trelegy Ellipta 200 mcg-62.5 mcg-25 mcg powder for inhalation RxNorm: 8598391 INHALE 1 PUFF INTO THE LUNGS EVERY 24 HOURS (DX: CHRONIC OBSTRUCTIVE PULMONARY DISEASE) 07/09/19 25 Active PLEASE SEND REFILLS.PHARMA CY PLEASE PROFILE FOR FUTURE USE-[facility] fluoxetine 10 mg capsule RxNorm: 708925 1 CAPSULE ORALLY DAILY (DX: DEPRESSION) (DX: ANXIETY) 07/09/19 25 Active PLEASE SEND REFILLS.PHARMA CY PLEASE PROFILE FOR FUTURE USE-[facility] cyanocobalamin (vit B-12) 500 mcg tablet RxNorm: 387591 1 TABLET ORALLY DAILY (DX: ANEMIA) 07/09/19 25 025 Inactive PLEASE SEND REFILLS.PHARMA CY PLEASE PROFILE FOR FUTURE USE-[facility] irbesartan 150 mg tablet RxNorm: 718279 1 TABLET ORALLY 2 TIMES DAILY (DX: HYPERTENSION) 07/09/19 Active PLEASE SEND REFILLS.PHARMA CY PLEASE PROFILE FOR FUTURE USE-[facility] cholecalciferol (vitamin D3) 25 mcg (1,000 unit) tablet RxNorm: 810421 1 TABLET ORALLY DAILY (DX: VITAMIN D DEFICIENCY) 07/09/19 Active PLEASE SEND REFILLS.PHARMA CY PLEASE PROFILE FOR FUTURE USE-[facility] quetiapine 25 mg tablet RxNorm: 795614 1 TABLET ORALLY AT BEDTIME (DX: ANXIETY) 07/09/19 026 Active PLEASE SEND REFILLS.PHARMA CY PLEASE PROFILE FOR FUTURE USE-[facility] hydrochlorothiazide 25 mg tablet RxNorm: 830521 1 TABLET ORALLY DAILY (DX: HYPERTENSION) 07/09/19 25 025 Inactive PLEASE SEND REFILLS.PHARMA CY PLEASE PROFILE FOR FUTURE USE-[facility] coenzyme Q10 100 mg capsule RxNorm: 445477 1 CAPSULE ORALLY DAILY W/ 200MG CAP FOR A TOTAL DOSE OF 300MG (DX: SUPPLEMENT) 07/09/19 25 Active PLEASE SEND REFILLS.PHARMA CY PLEASE PROFILE FOR FUTURE USE-[facility] donepezil 10 mg tablet RxNorm: 788650 1 TABLET ORALLY AT BEDTIME (DX: DEMENTIA) 07/09/19 25 026 Active PLEASE SEND REFILLS.PHARMA CY PLEASE PROFILE FOR FUTURE USE-[facility] alcohol swabs RxNorm: 043075 USE DIRECTED 07/09/19 25 026 Active PLEASE SEND REFILLS.PHARMA CY PLEASE PROFILE FOR FUTURE USE-[facility] Vitron-C 65 mg iron-125 mg tablet,delayed release RxNorm: 4751143 1 Tablet(s) Oral QOD every other day 07/09/19 25 025 Inactive PLEASE SEND REFILLS.PHARMA CY PLEASE PROFILE FOR FUTURE USE-[facility] Contour Next EZ Meter RxNorm: USE TO JENIFER T BLOOD GLUCOSE DAILY (DX: DIABETES TYPE 2) 07/09/19 25 025 Inactive PLEASE SEND REFILLS.PHARMA CY PLEASE PROFILE FOR FUTURE USE-[facility] Alejandra Protect (zinc oxide) 12 % topical cream RxNorm: 511357 APPLY TO RIGHT BUTTOCK 2 TIMES DAILY;APPLY TO RIGHT BUTTOCK NEEDED WITH SOILING 06/12/19 25 026 Active albuterol sulfate HFA 90 mcg/actuation aerosol inhaler RxNorm: 4722718 Inhale 2 Puff(s) Inhalation Q4H every four hours as needed 06/01/19 25 025 Inactive Alejandra Protect (zinc oxide) 12 % topical cream RxNorm: 210845 cream Topical apply to right buttocks BID and PRN with soiling 06/01/19 25 025 Inactive Lantus Solostar U-100 Insulin 100 unit/mL (3 mL) subcutaneous pen RxNorm: 490459 Unit(s) Subcutaneous prime en with 2 units, then inject 8 units SQ QD at bedtime 05/18/19 25 025 Inactive potassium chloride ER 10 mEq tablet,extended release RxNorm: 252171 Take 1 Tablet(s) Oral QD 04/12/19 25 No Stop Date Active acetaminophen 500 mg tablet RxNorm: 771069 Take 2 Tablet(s) Oral TID as needed 04/12/19 25 No Stop Date Active fluoxetine 10 mg capsule RxNorm: 007742 Take 1 Capsule(s) Oral QD 02 025 Inactive hydrochlorothiazide 25 mg tablet RxNorm: 402892 Take 1 Tablet(s) Oral QD 04/12/19 025 Inactive Oyster Shell Calcium 500 mg (as calcium carbonate 1,250 mg) tablet RxNorm: 941974 Take 1 Tablet(s) Oral QD 04/12/19 025 Inactive Co Q-10 200 mg capsule RxNorm: 488599 Capsule(s) Oral take 1 cap po daily with 100mg tab to =300mg daily 04/12/19 025 Inactive Co Q-10 100 mg capsule RxNorm: 902227 Capsule(s) Oral take 1 cap daily along with 200mg tab to =300mg daily 04/12/19 Inactive quetiapine 25 mg tablet RxNorm: 850012 Take 1 Tablet(s) Oral QHS every night at bedtime 04/12/19 025 Inactive Vitamin D3 25 mcg (1,000 unit) tablet RxNorm: 385147 Take 1 Tablet(s) Oral QD 04/12/19 025 Inactive donepezil 10 mg tablet RxNorm: 352689 Take 1 Tablet(s) Oral QHS every night at bedtime 04/12/19 025 Inactive cyanocobalamin (vit B-12) 500 mcg tablet RxNorm: 474493 Take 1 Tablet(s) Oral QD 04/12/19 025 Inactive oxybutynin chloride ER 10 mg tablet,extended release 24 hr RxNorm: 693654 Take 1 Tablet(s) Oral QPM every evening 04/12/19 025 Inactive irbesartan 150 mg tablet RxNorm: 763477 Take 1 Tablet(s) Oral BID 04/12/19 025 Inactive Trelegy Ellipta 200 mcg-62.5 mcg-25 mcg powder for inhalation RxNorm: 5551406 Inhale 1 Puff(s) Inhalation every 24 hours 04/12/19 025 Inactive Vitron-C 65 mg iron-125 mg tablet,delayed release RxNorm: 8963197 Take 1 Tablet(s) Oral QOD every other day 04/12/1901 08/01/2 025 Inactive Eliquis 5 mg tablet RxNorm: 4418998 Take 1 Tablet(s) Oral BID 04/12/19 25 025 Inactive Lantus Solostar U-100 Insulin 100 unit/mL (3 mL) subcutaneous pen RxNorm: 150275 Unit(s) Subcutaneous prime en with 2 units, [...] since about 2021. Previously lived independently in [place]. . Has one daughter Maggie who is involved in healthcare. PMH: History of breast cancer and melanoma, mixed dementia, depression, CAD, HLD, history of CVA/TIA, compression fx of L1 vertebrae, urinary incontinence, hearing loss, osteopeniaPrimary contact: Maggie Gallegos (Daughter)Code Status: DNR/SelectLab Schedule: Mar/SepSpecialists: [facility] (Q6M), Card[facility] ([facility]) 08/06/2024
--- OUTSIDE RECORDS SUMMARY | 2024-09-04 07:24 | XMS_ITS | CCD ---
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 Care Biomedical Specialist Name Role Phone Teresa Vivas Primary Care Provider Un available Unavailable Chronic Care Management Unavaila ble Summary Purpose DataExchange Insurance Providers Payer name Policy type / Coverage type Covered libertarian ID Effective Begin Date Effective End Date [place] H[place] Medicare Risk [id number] Unknown Un known Family history Mother Diagnosis Age At Onset Stroke Unknown Social History Social History Element Codes Description Effec tive Dates Marital status Unknown 04/13/2024 Marital status Unknown 04/13/2024 Living arrangements Unknown Assisted Living 04/[address]: 8733522 Former smoker 04/[address]: 7998000 Former smoker 04/[address]: 567229013 No Alcohol Consum ption 04/13/[address]: 155143 Currently drin ks alcohol 04/13/2024 Sexually Active? [...] No Inactive Date A ctive SIMVASTATIN RxNorm: 00542 04/13/2024 No Inactive D ate Active Penicillin Unknown 04/13/2024 No Inactive Date A ctive CLOPIDOGREL Unknown 03/23/2024 No Inactive Date Active naproxen RxNorm: 7258 04/13/2024 No Inactive Date Active levofloxacin RxNorm: 87746 03/23/2024 No Inactive Date Active Levemir Unknown 03/23/2024 No Inactive Date Ac tive metformin RxNorm: 102839 04/13/2024 No Inactive Da te Active ESTROGENS Unknown 03/23/2024 No Inactive Date Ac tive Atenolol RxNorm: 1202 04/13/2024 No Inactive Date Active metoprolol succinate RxNorm: 956901 03/23/2024 No Inactive Date Active Januvia RxNorm: 118050 04/13/2024 No Inactive Da te Active furosemide RxNorm: 4603 03/23/2024 No Inactive Balaji e Active azithromycin RxNorm: 08823 04/13/2024 No Inactive Date Active losartan RxNorm: 271873 04/13/2024 No Inactive Da te Active NSAIDS Unknown 03/23/2024 No Inactive Date Ac tive Amlodipine RxNorm: 714936 04/13/2024 No Inactive D ate Active LISINOPRIL RxNorm: 12105 04/13/2024 No Inactive Da te Active PIOGLITAZONE [...] mcfp insulin use ICD-10: E11.9 ICD-9: 250.00 06/29/2024 Active ACP (advance care planning) SNOMED CT: 3 43698823 ICD-10: Z71.89 ICD-9: V65.49 06/01/2024 Active Adult general medical exam SNOMED CT: 30 4656779 ICD-10: Z00.00 ICD-9: V70.9 06/01/2024 Active Atherosclerosis of coronary artery of [place] heart without angina pectoris, unspecified vessel or lesion type ICD-10: I25.10 ICD-9: 414.01 06/01/2024 Active 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 ICD-9: 311 06/01/[address]: 517145091 ICD-10: R54 ICD-9: 797 06/01/2024 Active Mixed [...] fracture of L1 vertebra, sequela SNOMED CT: 178097933 ICD-10: S32.010S ICD-9: 905.1 04/13/2024 Active Dementia in other diseases classified elsewhere, unspecified severity, without behavioral disturbance, psychotic disturbance, mood disturbance, and anxiety ICD-10: F02.80 04/13/[address]: 639821050 ICD-10: K57.90 ICD-9: 562.10 04/13/2024 Active History of breast cancer SNOMED CT: 4290 88906 ICD-10: Z85.3 ICD-9: V10.3 04/13/2024 Active History of melanoma SNOMED CT: 484061463 ICD-10: Z85.820 ICD-9: V10.82 04/13/2024 Active History of TIA (transient ischemic attack) SNOMED CT: 438420257 ICD-10: Z86.73 ICD-9: V12.54 04/13/2024 Active Hyperlipidemia, unspecified hyperlipidemia type SNOMED CT: 27707905 ICD-10: E78.5 ICD-9: 272.4 04/13/2024 Active Statin intolerance SNOMED CT: 548630118 ICD-10: Z78.9 ICD-9: 995.27 04/13/2024 Active Urinary incontinence, unspecified type SNOMED CT: 299038476 ICD-10: R32 ICD-9: 788.30 04/13/2024 Active Medications Medication Codes Instructions Start Date Stop Date Status Fill Instructions Contour Next EZ Meter RxNorm: USE TO JENIFER T BLOOD GLUCOSE DAILY (DX: DIABETES TYPE 2) 08/18/19 25 025 Active Contour Next Test Strips RxNorm: Use 1 strip BID 08/17/19 25 026 Active carvedilol 6.25 mg tablet RxNorm: 018790 Take 1 Tablet(s) Oral BID 08/10/19 25 No Stop Date Active nystatin 100,000 unit/gram topical powder RxNorm: 954034 Gram(s) Topical apply to affected area BID 08/10/19 25 025 Inactive hydrochlorothiazide 50 mg tablet RxNorm: 439095 Take 1 Tablet(s) Oral QD 08/07/19 25 No Stop Date Active Lantus Solostar U-100 Insulin 100 unit/mL (3 mL) subcutaneous pen RxNorm: 226549 Unit(s) Subcutaneous inject 14 units every am 08/07/19 25 No Stop Date Active Vitron-C 65 mg iron-125 mg tablet,delayed release RxNorm: 8503945 1 Tablet(s) Oral QOD every other day 07/23/19 25 025 Inactive *URGENT REQUEST* PLEASE SEND REFILLS FOR CYCLE FILL. THANK YOU! Oyster Shell Calcium-500 500 mg (as carbonate 1,250 mg) tablet RxNorm: 072356 1 TABLET ORALLY DAILY FOR BONE HEALTH 07/09/19 25 026 Active PLEASE SEND REFILLS.PHARMA CY PLEASE PROFILE FOR FUTURE USE-Medical[facility] Co Q-10 200 mg capsule RxNorm: 417716 1 CAPSULE ORALLY DAILY W/ 100MG CAP FOR A TOTAL DOSE OF 300MG (DX: SUPPLEMENT) 07/09/19 25 026 Active PLEASE SEND REFILLS.PHARMA CY PLEASE PROFILE FOR FUTURE USE-[facility] oxybutynin chloride ER 10 mg tablet,extended release 24 hr RxNorm: 596936 1 TAB ORALLY EVERY EVENING FOR BLADDER SPASMS 07/09/19 25 026 Active PLEASE SEND REFILLS.PHARMA CY PLEASE PROFILE FOR FUTURE USE-MedicalRec [facility] Trelegy Ellipta 200 mcg-62.5 mcg-25 mcg powder for inhalation RxNorm: 6077027 INHALE 1 PUFF INTO THE LUNGS EVERY 24 HOURS (DX: CHRONIC OBSTRUCTIVE PULMONARY DISEASE) 07/09/19 25 Active PLEASE SEND REFILLS.PHARMA CY PLEASE PROFILE FOR FUTURE USE-[facility]Rec [facility] fluoxetine 10 mg capsule RxNorm: 030594 1 CAPSULE ORALLY DAILY (DX: DEPRESSION) (DX: ANXIETY) 07/09/19 25 Active PLEASE SEND REFILLS.PHARMA CY PLEASE PROFILE FOR FUTURE USE-MedicalRec [facility] irbesartan 150 mg tablet RxNorm: 107775 1 TABLET ORALLY 2 TIMES DAILY (DX: HYPERTENSION) 07/09/19 25 026 Active PLEASE SEND REFILLS.PHARMA CY PLEASE PROFILE FOR FUTURE USE-[facility] cholecalciferol (vitamin D3) 25 mcg (1,000 unit) tablet RxNorm: 349737 1 TABLET ORALLY DAILY (DX: VITAMIN D DEFICIENCY) 07/09/19 25 026 Active PLEASE SEND REFILLS.PHARMA CY PLEASE PROFILE FOR FUTURE USE-MedicalRec [facility] quetiapine 25 mg tablet RxNorm: 884541 1 TABLET ORALLY AT BEDTIME (DX: ANXIETY) 07/09/19 026 Active PLEASE SEND REFILLS.PHARMA CY PLEASE PROFILE FOR FUTURE USE-[facility] coenzyme Q10 100 mg capsule RxNorm: 667729 1 CAPSULE ORALLY DAILY W/ 200MG CAP FOR A TOTAL DOSE OF 300MG (DX: SUPPLEMENT) 07/09/19 25 026 Active PLEASE SEND REFILLS.PHARMA CY PLEASE PROFILE FOR FUTURE USE-[facility]Rec [facility] donepezil 10 mg tablet RxNorm: 482785 1 TABLET ORALLY AT BEDTIME (DX: DEMENTIA) 07/09/19 25 026 Active PLEASE SEND REFILLS.PHARMA CY PLEASE PROFILE FOR FUTURE USE-MedicalRec ords alcohol swabs RxNorm: 588625 USE DIRECTED 07/09/19 25 Active PLEASE SEND REFILLS.PHARMA CY PLEASE PROFILE FOR FUTURE USE-MedicalRec [facility]ds Vitron-C 65 mg iron-125 mg tablet,delayed release RxNorm: 4753723 1 Tablet(s) Oral QOD every other day 07/09/19 25 025 Inactive PLEASE SEND REFILLS.PHARMA CY PLEASE PROFILE FOR FUTURE USE-Medical[facility] cyanocobalamin (vit B-12) 500 mcg tablet RxNorm: 319415 1 TABLET ORALLY DAILY (DX: ANEMIA) 07/09/19 25 025 Inactive PLEASE SEND REFILLS.PHARMA CY PLEASE PROFILE FOR FUTURE USE-MedicalRec ords hydrochlorothiazide 25 mg tablet RxNorm: 272577 1 TABLET ORALLY DAILY (DX: HYPERTENSION) 07/09/19 025 Inactive PLEASE SEND REFILLS.PHARMA CY PLEASE PROFILE FOR FUTURE USE-MedicalRec [facility] Contour Next EZ Meter RxNorm: USE TO JENIFER T BLOOD GLUCOSE DAILY (DX: DIABETES TYPE 2) 07/09/19 25 025 Inactive PLEASE SEND REFILLS.PHARMA CY PLEASE PROFILE FOR FUTURE USE-MedicalRec ords Alejandra Protect (zinc oxide) 12 % topical cream RxNorm: 887998 APPLY TO RIGHT BUTTOCK 2 TIMES DAILY;APPLY TO RIGHT BUTTOCK NEEDED WITH SOILING 06/12/19 25 026 Active albuterol sulfate HFA 90 mcg/actuation aerosol inhaler RxNorm: 4705866 Inhale 2 Puff(s) Inhalation Q4H every four hours as needed 06/01/19 25 025 Inactive Alejandra Protect (zinc oxide) 12 % topical cream RxNorm: 936228 cream Topical apply to right buttocks BID and PRN with soiling 06/01/19 25 025 Inactive Lantus Solostar U-100 Insulin 100 unit/mL (3 mL) subcutaneous pen RxNorm: 493705 Unit(s) Subcutaneous prime en with 2 units, then inject 8 units SQ QD at bedtime 05/18/19 25 025 Inactive potassium chloride ER 10 mEq tablet,extended release RxNorm: 316710 Take 1 Tablet(s) Oral QD 04/12/19 No Stop Date Active acetaminophen 500 mg tablet RxNorm: 218456 Take 2 Tablet(s) Oral TID as needed 04/12/19 No Stop Date Active fluoxetine 10 mg capsule RxNorm: 106692 Take 1 Capsule(s) Oral QD 04/12/19 025 Inactive hydrochlorothiazide 25 mg tablet RxNorm: 302598 Take 1 Tablet(s) Oral QD 04/12/19 025 Inactive Oyster Shell Calcium 500 mg (as calcium carbonate 1,250 mg) tablet RxNorm: 622945 Take 1 Tablet(s) Oral QD 04/12/19 025 Inactive Co Q-10 200 mg capsule RxNorm: 230944 Capsule(s) Oral take 1 cap po daily with 100mg tab to =300mg daily 04/12/19 025 Inactive Co Q-10 100 mg capsule RxNorm: 896868 Capsule(s) Oral take 1 cap daily along with 200mg tab to =300mg daily 04/12/19 025 Inactive quetiapine 25 mg tablet RxNorm: 751008 Take 1 Tablet(s) Oral QHS every night at bedtime 04/12/19 025 Inactive Vitamin D3 25 mcg (1,000 unit) tablet RxNorm: 213462 Take 1 Tablet(s) Oral QD 04/12/19 025 Inactive donepezil 10 mg tablet RxNorm: 515027 Take 1 Tablet(s) Oral QHS every night at bedtime 04/12/19 025 Inactive cyanocobalamin (vit B-12) 500 mcg tablet RxNorm: 311466 Take 1 Tablet(s) Oral QD 04/12/19 25 025 Inactive oxybutynin chloride ER 10 mg tablet,extended release 24 hr RxNorm: 772242 Take 1 Tablet(s) Oral QPM every evening 04/12/19 025 Inactive irbesartan 150 mg tablet RxNorm: 164372 Take 1 Tablet(s) Oral BID 04/12/19 25 025 Inactive Trelegy Ellipta 200 mcg-62.5 mcg-25 mcg powder for inhalation RxNorm: 0382323 Inhale 1 Puff(s) Inhalation every 24 hours 04/12/19 025 Inactive Vitron-C 65 mg iron-125 mg tablet,delayed release RxNorm: 0759834 Take 1 Tablet(s) Oral QOD every other day 04/12/19 025 Inactive Eliquis 5 mg tablet RxNorm: 4087790 Take 1 Tablet(s) Oral BID 04/12/19 025 Inactive Lantus Solostar U-100 Insulin 100 unit/mL (3 mL) subcutaneous pen RxNorm: 447220 Unit(s) Subcutaneous prime en with 2 units, [...] data Instructions Comment Date Alyx resides at [facility] since about 2021. Previously lived independently in [place]. . Has one daughter Maggie who is involved in healthcare. PMH: History of breast cancer and melanoma, mixed dementia, depression, CAD, HLD, history of CVA/TIA, compression fx of L1 vertebrae, urinary incontinence, hearing loss, osteopeniaPrimary contact: Maggie Gallegos (Daughter)Code Status: DNR/SelectLab Schedule: Mar/SepSpecialists: [facility] (Q6M), Cardiology [facility] ([facility]) 08/06/2024
--- OUTSIDE RECORDS SUMMARY | 2024-09-04 07:24 | XMS_ITS | CCD ---
Author Name Linda Vivas Address [address] [place] [address] Phone Organization [facility] Phone Care Team Providers Care Benefits Processor Name Role Phone Teresa Vivas Primary Care Provider Un available Unavailable Chronic Care Management Unavaila ble Summary Purpose DataExchange Insurance Providers Payer name Policy type / Coverage type Covered alliance party ID Effective Begin Date Effective End Date BCBS of [facility] Medicare Risk [id number] Unknown Un known Family history Mother Diagnosis Age At Onset Stroke Unknown Social History Social History Element Codes Description Effec tive Dates Marital status Unknown 04/13/2024 Marital status Unknown 04/13/2024 Living arrangements Unknown Assisted Living 04/[address]: 4341954 Former smoker 04/[address]: 3677415 Former smoker 04/[address]: 443010789 No Alcohol Consum ption 04/13/[address]: 364064 Currently drin ks alcohol 04/13/2024 Sexually Active? [...] No Inactive Date A ctive SIMVASTATIN RxNorm: 64611 04/13/2024 No Inactive D ate Active Penicillin Unknown 04/13/2024 No Inactive Date A ctive CLOPIDOGREL Unknown 03/23/2024 No Inactive Date Active naproxen RxNorm: 7258 04/13/2024 No Inactive Date Active levofloxacin RxNorm: 69445 03/23/2024 No Inactive Date Active Levemir Unknown 03/23/2024 No Inactive Date Ac tive metformin RxNorm: 645074 04/13/2024 No Inactive Da te Active ESTROGENS Unknown 03/23/2024 No Inactive Date Ac tive Atenolol RxNorm: 1202 04/13/2024 No Inactive Date Active metoprolol succinate RxNorm: 992939 03/23/2024 No Inactive Date Active Januvia RxNorm: 515590 04/13/2024 No Inactive Da te Active furosemide RxNorm: 4603 03/23/2024 No Inactive Balaji e Active azithromycin RxNorm: 53213 04/13/2024 No Inactive Date Active losartan RxNorm: 780157 04/13/2024 No Inactive Da te Active NSAIDS Unknown 03/23/2024 No Inactive Date Ac tive Amlodipine RxNorm: 178084 04/13/2024 No Inactive D ate Active LISINOPRIL RxNorm: 32464 04/13/2024 No Inactive Da te Active PIOGLITAZONE [...] without complication, unspecified whether fpc insulin use ICD-10: E11.9 ICD-9: 250.00 06/29/2024 Active ACP (advance care planning) SNOMED CT: 3 22890382 ICD-10: Z71.89 ICD-9: V65.49 06/01/2024 Active Adult general medical exam SNOMED CT: 30 1821659 ICD-10: Z00.00 ICD-9: V70.9 06/01/2024 Active Atherosclerosis of coronary artery of [place] heart without angina pectoris, unspecified vessel or lesion type ICD-10: I25.10 ICD-9: 414.01 06/01/2024 Active 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 ICD-9: 311 06/01/[address]: 566021368 ICD-10: R54 ICD-9: 797 06/01/2024 Active Mixed [...] fracture of L1 vertebra, sequela SNOMED CT: 200342168 ICD-10: S32.010S ICD-9: 905.1 04/13/2024 Active Dementia in other diseases classified elsewhere, unspecified severity, without behavioral disturbance, psychotic disturbance, mood disturbance, and anxiety ICD-10: F02.80 04/13/[address]: 192576396 ICD-10: K57.90 ICD-9: 562.10 04/13/2024 Active History of breast cancer SNOMED CT: 4290 44816 ICD-10: Z85.3 ICD-9: V10.3 04/13/2024 Active History of melanoma SNOMED CT: 988338247 ICD-10: Z85.820 ICD-9: V10.82 04/13/2024 Active History of TIA (transient ischemic attack) SNOMED CT: 325831197 ICD-10: Z86.73 ICD-9: V12.54 04/13/2024 Active Hyperlipidemia, unspecified hyperlipidemia type SNOMED CT: 59408406 ICD-10: E78.5 ICD-9: 272.4 04/13/2024 Active Statin intolerance SNOMED CT: 725140678 ICD-10: Z78.9 ICD-9: 995.27 04/13/2024 Active Urinary incontinence, unspecified type SNOMED CT: 085335908 ICD-10: R32 ICD-9: 788.30 04/13/2024 Active Medications Medication Codes Instructions Start Date Stop Date Status Fill Instructions carvedilol 6.25 mg tablet RxNorm: 164921 Take 1 Tablet(s) Oral BID 08/10/19 25 No Stop Date Active nystatin 100,000 unit/gram topical powder RxNorm: 116692 Gram(s) Topical apply to affected area BID 08/10/19 25 025 Inactive hydrochlorothiazide 50 mg tablet RxNorm: 691236 Take 1 Tablet(s) Oral QD 08/07/19 25 No Stop Date Active Lantus Solostar U-100 Insulin 100 unit/mL (3 mL) subcutaneous pen RxNorm: 821006 Unit(s) Subcutaneous inject 14 units every am 08/07/19 25 No Stop Date Active Vitron-C 65 mg iron-125 mg tablet,delayed release RxNorm: 4226771 1 Tablet(s) Oral QOD every other day 07/23/19 Inactive *URGENT REQUEST* PLEASE SEND REFILLS FOR CYCLE FILL. THANK YOU! Oyster Shell Calcium-500 500 mg (as carbonate 1,250 mg) tablet RxNorm: 300880 1 TABLET ORALLY DAILY FOR BONE HEALTH 07/09/19 25 Active PLEASE SEND REFILLS.PHARMA CY PLEASE PROFILE FOR FUTURE USE-[facility] Co Q-10 200 mg capsule RxNorm: 038394 1 CAPSULE ORALLY DAILY W/ 100MG CAP FOR A TOTAL DOSE OF 300MG (DX: SUPPLEMENT) 07/09/19 Active PLEASE SEND REFILLS.PHARMA CY PLEASE PROFILE FOR FUTURE USE-[facility] oxybutynin chloride ER 10 mg tablet,extended release 24 hr RxNorm: 671395 1 TAB ORALLY EVERY EVENING FOR BLADDER SPASMS 07/09/19 Active PLEASE SEND REFILLS.PHARMA CY PLEASE PROFILE FOR FUTURE USE-[facility] Trelegy Ellipta 200 mcg-62.5 mcg-25 mcg powder for inhalation RxNorm: 3090154 INHALE 1 PUFF INTO THE LUNGS EVERY 24 HOURS (DX: CHRONIC OBSTRUCTIVE PULMONARY DISEASE) 07/09/19 Active PLEASE SEND REFILLS.PHARMA CY PLEASE PROFILE FOR FUTURE USE-[facility] fluoxetine 10 mg capsule RxNorm: 602813 1 CAPSULE ORALLY DAILY (DX: DEPRESSION) (DX: ANXIETY) 07/09/19 25 Active PLEASE SEND REFILLS.PHARMA CY PLEASE PROFILE FOR FUTURE USE-[facility] irbesartan 150 mg tablet RxNorm: 459111 1 TABLET ORALLY 2 TIMES DAILY (DX: HYPERTENSION) 07/09/19 25 Active PLEASE SEND REFILLS.PHARMA CY PLEASE PROFILE FOR FUTURE USE-[facility] cholecalciferol (vitamin D3) 25 mcg (1,000 unit) tablet RxNorm: 782912 1 TABLET ORALLY DAILY (DX: VITAMIN D DEFICIENCY) 07/09/19 25 Active PLEASE SEND REFILLS.PHARMA CY PLEASE PROFILE FOR FUTURE USE-[facility] quetiapine 25 mg tablet RxNorm: 102387 1 TABLET ORALLY AT BEDTIME (DX: ANXIETY) 07/09/19 25 026 Active PLEASE SEND REFILLS.PHARMA CY PLEASE PROFILE FOR FUTURE USE-[facility] coenzyme Q10 100 mg capsule RxNorm: 706370 1 CAPSULE ORALLY DAILY W/ 200MG CAP FOR A TOTAL DOSE OF 300MG (DX: SUPPLEMENT) 07/09/19 25 026 Active PLEASE SEND REFILLS.PHARMA CY PLEASE PROFILE FOR FUTURE USE-[facility] donepezil 10 mg tablet RxNorm: 595607 1 TABLET ORALLY AT BEDTIME (DX: DEMENTIA) 07/09/19 25 026 Active PLEASE SEND REFILLS.PHARMA CY PLEASE PROFILE FOR FUTURE USE-[facility] alcohol swabs RxNorm: 701907 USE DIRECTED 07/09/19 25 026 Active PLEASE SEND REFILLS.PHARMA CY PLEASE PROFILE FOR FUTURE USE-[facility] Vitron-C 65 mg iron-125 mg tablet,delayed release RxNorm: 0347157 1 Tablet(s) Oral QOD every other day 07/09/19 25 025 Inactive PLEASE SEND REFILLS.PHARMA CY PLEASE PROFILE FOR FUTURE USE-[facility] cyanocobalamin (vit B-12) 500 mcg tablet RxNorm: 708902 1 TABLET ORALLY DAILY (DX: ANEMIA) 07/09/19 25 025 Inactive PLEASE SEND REFILLS.PHARMA CY PLEASE PROFILE FOR FUTURE USE-[facility] hydrochlorothiazide 25 mg tablet RxNorm: 474756 1 TABLET ORALLY DAILY (DX: HYPERTENSION) 07/09/19 25 025 Inactive PLEASE SEND REFILLS.PHARMA CY PLEASE PROFILE FOR FUTURE USE-[facility] Contour Next EZ Meter RxNorm: USE TO JENIFER T BLOOD GLUCOSE DAILY (DX: DIABETES TYPE 2) 07/09/19 25 025 Inactive PLEASE SEND REFILLS.PHARMA CY PLEASE PROFILE FOR FUTURE USE-[facility] Alejandra Protect (zinc oxide) 12 % topical cream RxNorm: 904843 APPLY TO RIGHT BUTTOCK 2 TIMES DAILY;APPLY TO RIGHT BUTTOCK NEEDED WITH SOILING 06/12/19 25 026 Active albuterol sulfate HFA 90 mcg/actuation aerosol inhaler RxNorm: 9837012 Inhale 2 Puff(s) Inhalation Q4H every four hours as needed 06/01/19 25 025 Inactive Alejandra Protect (zinc oxide) 12 % topical cream RxNorm: 007851 cream Topical apply to right buttocks BID and PRN with soiling 06/01/19 25 025 Inactive Lantus Solostar U-100 Insulin 100 unit/mL (3 mL) subcutaneous pen RxNorm: 034469 Unit(s) Subcutaneous prime en with 2 units, then inject 8 units SQ QD at bedtime 05/18/19 25 025 Inactive potassium chloride ER 10 mEq tablet,extended release RxNorm: 017514 Take 1 Tablet(s) Oral QD 04/12/19 No Stop Date Active acetaminophen 500 mg tablet RxNorm: 266362 Take 2 Tablet(s) Oral TID as needed 04/12/19 No Stop Date Active fluoxetine 10 mg capsule RxNorm: 387509 Take 1 Capsule(s) Oral QD 04/12/19 025 Inactive hydrochlorothiazide 25 mg tablet RxNorm: 775048 Take 1 Tablet(s) Oral QD 04/12/19 025 Inactive Oyster Shell Calcium 500 mg (as calcium carbonate 1,250 mg) tablet RxNorm: 928559 Take 1 Tablet(s) Oral QD 04/12/19 025 Inactive Co Q-10 200 mg capsule RxNorm: 535481 Capsule(s) Oral take 1 cap po daily with 100mg tab to =300mg daily 04/12/19 025 Inactive Co Q-10 100 mg capsule RxNorm: 053204 Capsule(s) Oral take 1 cap daily along with 200mg tab to =300mg daily 04/12/19 025 Inactive quetiapine 25 mg tablet RxNorm: 398199 Take 1 Tablet(s) Oral QHS every night at bedtime 04/12/19 025 Inactive Vitamin D3 25 mcg (1,000 unit) tablet RxNorm: 540172 Take 1 Tablet(s) Oral QD 04/12/19 025 Inactive donepezil 10 mg tablet RxNorm: 706839 Take 1 Tablet(s) Oral QHS every night at bedtime 04/12/19 025 Inactive cyanocobalamin (vit B-12) 500 mcg tablet RxNorm: 023855 Take 1 Tablet(s) Oral QD 04/12/19 25 025 Inactive oxybutynin chloride ER 10 mg tablet,extended release 24 hr RxNorm: 305178 Take 1 Tablet(s) Oral QPM every evening 04/12/19 25 025 Inactive irbesartan 150 mg tablet RxNorm: 072589 Take 1 Tablet(s) Oral BID 04/12/19 25 025 Inactive Trelegy Ellipta 200 mcg-62.5 mcg-25 mcg powder for inhalation RxNorm: 1293925 Inhale 1 Puff(s) Inhalation every 24 hours 04/12/19 025 Inactive Vitron-C 65 mg iron-125 mg tablet,delayed release RxNorm: 1707578 Take 1 Tablet(s) Oral QOD every other day 04/12/19 025 Inactive Eliquis 5 mg tablet RxNorm: 3476063 Take 1 Tablet(s) Oral BID 04/12/19 25 025 Inactive Lantus Solostar U-100 Insulin 100 unit/mL (3 mL) subcutaneous pen RxNorm: 772952 Unit(s) Subcutaneous prime en with 2 units, [...] 09 1.0 1994 Procedures Procedure Codes Date DSCHRG MED/CURRENT MED MERGE CPT-4: 1111F 05/2024 Vital Signs Date Vital 08/10/2024 Blood Pressure 1: 144/68 Code: 8480-6 BMI: 35.0 Code: 34448-2 Heart Rate 1: 78 bpm Code: 8867-4 Height: 5'4 Code: 8302-2 Respiratory Rate: 18 bpm SpO2: 91% Temperature: 36.3 (C) / 97.4 (F) Weight: 204 lbs Code: 3141-9 Functional Status Functional / [...] Encounter Performer Location Location Address Codes Date (51580) Home Visit - Est Pt, moderate Diagnosis: Atrial fibrillation, unspecified type[ICD10: I48.91] Diagnosis: Chronic obstructive pulmonary disease, unspecified COPD type[ICD10: J44.9] Diagnosis: Unsteady gait[ICD10: R26.81] Diagnosis: Vascular dementia, unspecified severity, without behavioral disturbance, psychotic disturbance, mood disturbance, and anxiety[ICD10: F01.50] Diagnosis: Pressure injury of left buttock, stage 2[ICD10: L89.322] Teresa Antione [address] [address] CPT-4: 20907 08/10/2024 Plan of Care Planned Activity Notes Codes Status Date Patient Education: Patient Medication Summary Completed 08/10/2024 Patient Education: Influenza Complet ed 08/10/2024 Appointment: Michela Talbot WPtel: [phone] [place] F/U 08/03/2024 Appointment: Michela Talbot WPtel: [phone] FRAME OPENER 04/13/2024 Instructions Comment Date Alyx resides at [facility] since about 2021. Previously lived independently in [place]. . Has one daughter Maggie who is involved in healthcare. PMH: History of breast cancer and melanoma, mixed dementia, depression, CAD, HLD, history of CVA/TIA, compression fx of L1 vertebrae, urinary incontinence, hearing loss, osteopeniaPrimary contact: Maggie Gallegos (Daughter)Code Status: DNR/SelectLab Schedule: Mar/SepSpecialists: [facility] (Q6M), Cardiology [facility] (MD Echo) 08/06/2024 Chronic obstructive pulmonar y disease, unspecified COPD [...]
--- OUTSIDE RECORDS SUMMARY | 2024-09-04 07:25 | XMS_ITS | CCD ---
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 Care Food And Drug Research Scientist Name Role Phone Teresa Vivas Primary Care Provider Un available Unavailable Chronic Care Management Unavaila ble Summary Purpose DataExchange Insurance Providers Payer name Policy type / Coverage type Covered alliance party ID Effective Begin Date Effective End Date [place] Medicare Risk [id number] Unknown Un known Family history Mother Diagnosis Age At Onset Stroke Unknown Social History Social History Element Codes Description Effec tive Dates Marital status Unknown 04/13/2024 Marital status Unknown 04/13/2024 Living arrangements Unknown Assisted Living 04/[address]: 2557068 Former smoker 04/[address]: 7687290 Former smoker 04/[address]: 072341471 No Alcohol Consum ption 04/13/[address]: 430175 Currently drin ks alcohol 04/13/2024 Sexually Active? [...] No Inactive Date A ctive SIMVASTATIN RxNorm: 24344 04/13/2024 No Inactive D ate Active Penicillin Unknown 04/13/2024 No Inactive Date A ctive CLOPIDOGREL Unknown 03/23/2024 No Inactive Date Active naproxen RxNorm: 7258 04/13/2024 No Inactive Date Active levofloxacin RxNorm: 20273 03/23/2024 No Inactive Date Active Levemir Unknown 03/23/2024 No Inactive Date Ac tive metformin RxNorm: 402052 04/13/2024 No Inactive Da te Active ESTROGENS Unknown 03/23/2024 No Inactive Date Ac tive Atenolol RxNorm: 1202 04/13/2024 No Inactive Date Active metoprolol succinate RxNorm: 205514 03/23/2024 No Inactive Date Active Januvia RxNorm: 745157 04/13/2024 No Inactive Da te Active furosemide RxNorm: 4603 03/23/2024 No Inactive Balaji e Active azithromycin RxNorm: 02478 04/13/2024 No Inactive Date Active losartan RxNorm: 810511 04/13/2024 No Inactive Da te Active NSAIDS Unknown 03/23/2024 No Inactive Date Ac tive Amlodipine RxNorm: 530639 04/13/2024 No Inactive D ate Active LISINOPRIL RxNorm: 14720 04/13/2024 No Inactive Da te Active PIOGLITAZONE [...] prison insulin use ICD-10: E11.9 ICD-9: 250.00 06/29/2024 Active ACP (advance care planning) SNOMED CT: 3 36393393 ICD-10: Z71.89 ICD-9: V65.49 06/01/2024 Active Adult general medical exam SNOMED CT: 30 5820734 ICD-10: Z00.00 ICD-9: V70.9 06/01/2024 Active Atherosclerosis of coronary artery of [place] heart without angina pectoris, unspecified vessel or lesion type ICD-10: I25.10 ICD-9: 414.01 06/01/2024 Active 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 ICD-9: 311 06/01/[address]: 460771090 ICD-10: R54 ICD-9: 797 06/01/2024 Active Mixed [...] fracture of L1 vertebra, sequela SNOMED CT: 275547672 ICD-10: S32.010S ICD-9: 905.1 04/13/2024 Active Dementia in other diseases classified elsewhere, unspecified severity, without behavioral disturbance, psychotic disturbance, mood disturbance, and anxiety ICD-10: F02.80 04/13/[address]: 964404347 ICD-10: K57.90 ICD-9: 562.10 04/13/2024 Active History of breast cancer SNOMED CT: 4290 84469 ICD-10: Z85.3 ICD-9: V10.3 04/13/2024 Active History of melanoma SNOMED CT: 815612422 ICD-10: Z85.820 ICD-9: V10.82 04/13/2024 Active History of TIA (transient ischemic attack) SNOMED CT: 989505592 ICD-10: Z86.73 ICD-9: V12.54 04/13/2024 Active Hyperlipidemia, unspecified hyperlipidemia type SNOMED CT: 72320632 ICD-10: E78.5 ICD-9: 272.4 04/13/2024 Active Statin intolerance SNOMED CT: 027279218 ICD-10: Z78.9 ICD-9: 995.27 04/13/2024 Active Urinary incontinence, unspecified type SNOMED CT: 316554456 ICD-10: R32 ICD-9: 788.30 04/13/2024 Active Medications Medication Codes Instructions Start Date Stop Date Status Fill Instructions furosemide 40 mg tablet RxNorm: 231453 Take 1 Tablet(s) Oral QD 08/20/19 25 025 Inactive furosemide 40 mg tablet RxNorm: 503454 Take 1 Tablet(s) Oral QD 08/20/19 25 025 Inactive Contour Next EZ Meter RxNorm: USE TO JENIFER T BLOOD GLUCOSE DAILY (DX: DIABETES TYPE 2) 08/18/19 25 025 Active Contour Next Test Strips RxNorm: Use 1 strip BID 08/17/19 25 026 Active carvedilol 6.25 mg tablet RxNorm: 024356 Take 1 Tablet(s) Oral BID 08/10/19 25 No Stop Date Active nystatin 100,000 unit/gram topical powder RxNorm: 371398 Gram(s) Topical apply to affected area BID 08/10/19 25 025 Inactive hydrochlorothiazide 50 mg tablet RxNorm: 853537 Take 1 Tablet(s) Oral QD 08/07/19 25 No Stop Date Active Lantus Solostar U-100 Insulin 100 unit/mL (3 mL) subcutaneous pen RxNorm: 764867 Unit(s) Subcutaneous inject 14 units every am 08/07/19 No Stop Date Active Vitron-C 65 mg iron-125 mg tablet,delayed release RxNorm: 5345656 1 Tablet(s) Oral QOD every other day 07/23/19 25 Inactive *URGENT REQUEST* PLEASE SEND REFILLS FOR CYCLE FILL. THANK YOU! Oyster Shell Calcium-500 500 mg (as carbonate 1,250 mg) tablet RxNorm: 472604 1 TABLET ORALLY DAILY FOR BONE HEALTH 07/09/19 25 026 Active PLEASE SEND REFILLS.PHARMA CY PLEASE PROFILE FOR FUTURE USE-MedicalRec ords Co Q-10 200 mg capsule RxNorm: 251804 1 CAPSULE ORALLY DAILY W/ 100MG CAP FOR A TOTAL DOSE OF 300MG (DX: SUPPLEMENT) 07/09/19 Active PLEASE SEND REFILLS.PHARMA CY PLEASE PROFILE FOR FUTURE USE-MedicalRec ords oxybutynin chloride ER 10 mg tablet,extended release 24 hr RxNorm: 717114 1 TAB ORALLY EVERY EVENING FOR BLADDER SPASMS 07/09/19 25 Active PLEASE SEND REFILLS.PHARMA CY PLEASE PROFILE FOR FUTURE USE-MedicalRec ords Trelegy Ellipta 200 mcg-62.5 mcg-25 mcg powder for inhalation RxNorm: 4271150 INHALE 1 PUFF INTO THE LUNGS EVERY 24 HOURS (DX: CHRONIC OBSTRUCTIVE PULMONARY DISEASE) 07/09/19 25 Active PLEASE SEND REFILLS.PHARMA CY PLEASE PROFILE FOR FUTURE USE-MedicalRec ords fluoxetine 10 mg capsule RxNorm: 990332 1 CAPSULE ORALLY DAILY (DX: DEPRESSION) (DX: ANXIETY) 07/09/19 25 026 Active PLEASE SEND REFILLS.PHARMA CY PLEASE PROFILE FOR FUTURE USE-MedicalRec ords irbesartan 150 mg tablet RxNorm: 301769 1 TABLET ORALLY 2 TIMES DAILY (DX: HYPERTENSION) 07/09/19 25 Active PLEASE SEND REFILLS.PHARMA CY PLEASE PROFILE FOR FUTURE USE-MedicalRec ords cholecalciferol (vitamin D3) 25 mcg (1,000 unit) tablet RxNorm: 960485 1 TABLET ORALLY DAILY (DX: VITAMIN D DEFICIENCY) 07/09/19 25 026 Active PLEASE SEND REFILLS.PHARMA CY PLEASE PROFILE FOR FUTURE USE-MedicalRec ords quetiapine 25 mg tablet RxNorm: 009369 1 TABLET ORALLY AT BEDTIME (DX: ANXIETY) 07/09/19 25 026 Active PLEASE SEND REFILLS.PHARMA CY PLEASE PROFILE FOR FUTURE USE-MedicalRec ords coenzyme Q10 100 mg capsule RxNorm: 763886 1 CAPSULE ORALLY DAILY W/ 200MG CAP FOR A TOTAL DOSE OF 300MG (DX: SUPPLEMENT) 07/09/19 25 026 Active PLEASE SEND REFILLS.PHARMA CY PLEASE PROFILE FOR FUTURE USE-MedicalRec ords donepezil 10 mg tablet RxNorm: 185757 1 TABLET ORALLY AT BEDTIME (DX: DEMENTIA) 07/09/19 25 026 Active PLEASE SEND REFILLS.PHARMA CY PLEASE PROFILE FOR FUTURE USE-MedicalRec ords alcohol swabs RxNorm: 820524 USE DIRECTED 07/09/19 25 026 Active PLEASE SEND REFILLS.PHARMA CY PLEASE PROFILE FOR FUTURE USE-MedicalRec ords Vitron-C 65 mg iron-125 mg tablet,delayed release RxNorm: 5425243 1 Tablet(s) Oral QOD every other day 07/09/19 25 025 Inactive PLEASE SEND REFILLS.PHARMA CY PLEASE PROFILE FOR FUTURE USE-MedicalRec ords cyanocobalamin (vit B-12) 500 mcg tablet RxNorm: 864847 1 TABLET ORALLY DAILY (DX: ANEMIA) 07/09/19 25 025 Inactive PLEASE SEND REFILLS.PHARMA CY PLEASE PROFILE FOR FUTURE USE-MedicalRec ords hydrochlorothiazide 25 mg tablet RxNorm: 387539 1 TABLET ORALLY DAILY (DX: HYPERTENSION) 07/09/19 25 025 Inactive PLEASE SEND REFILLS.PHARMA CY PLEASE PROFILE FOR FUTURE USE-MedicalRec ords Contour Next EZ Meter RxNorm: USE TO JENIFER T BLOOD GLUCOSE DAILY (DX: DIABETES TYPE 2) 07/09/19 25 025 Inactive PLEASE SEND REFILLS.PHARMA CY PLEASE PROFILE FOR FUTURE USE-MedicalRec ords Alejandra Protect (zinc oxide) 12 % topical cream RxNorm: 262817 APPLY TO RIGHT BUTTOCK 2 TIMES DAILY;APPLY TO RIGHT BUTTOCK NEEDED WITH SOILING 06/12/19 25 026 Active albuterol sulfate HFA 90 mcg/actuation aerosol inhaler RxNorm: 0480194 Inhale 2 Puff(s) Inhalation Q4H every four hours as needed 06/01/19 25 025 Inactive Alejandra Protect (zinc oxide) 12 % topical cream RxNorm: 842380 cream Topical apply to right buttocks BID and PRN with soiling 06/01/19 25 025 Inactive Lantus Solostar U-100 Insulin 100 unit/mL (3 mL) subcutaneous pen RxNorm: 576752 Unit(s) Subcutaneous prime en with 2 units, then inject 8 units SQ QD at bedtime 05/18/19 025 Inactive potassium chloride ER 10 mEq tablet,extended release RxNorm: 372127 Take 1 Tablet(s) Oral QD 04/12/19 No Stop Date Active acetaminophen 500 mg tablet RxNorm: 161765 Take 2 Tablet(s) Oral TID as needed 04/12/19 No Stop Date Active fluoxetine 10 mg capsule RxNorm: 066751 Take 1 Capsule(s) Oral QD 04/12/19 025 Inactive hydrochlorothiazide 25 mg tablet RxNorm: 253137 Take 1 Tablet(s) Oral QD 04/12/19 025 Inactive Oyster Shell Calcium 500 mg (as calcium carbonate 1,250 mg) tablet RxNorm: 200091 Take 1 Tablet(s) Oral QD 04/12/19 025 Inactive Co Q-10 200 mg capsule RxNorm: 679276 Capsule(s) Oral take 1 cap po daily with 100mg tab to =300mg daily 04/12/19 025 Inactive Co Q-10 100 mg capsule RxNorm: 854422 Capsule(s) Oral take 1 cap daily along with 200mg tab to =300mg daily 04/12/19 025 Inactive quetiapine 25 mg tablet RxNorm: 972723 Take 1 Tablet(s) Oral QHS every night at bedtime 04/12/19 025 Inactive Vitamin D3 25 mcg (1,000 unit) tablet RxNorm: 903236 Take 1 Tablet(s) Oral QD 04/12/19 025 Inactive donepezil 10 mg tablet RxNorm: 555970 Take 1 Tablet(s) Oral QHS every night at bedtime 04/12/19 25 025 Inactive cyanocobalamin (vit B-12) 500 mcg tablet RxNorm: 320473 Take 1 Tablet(s) Oral QD 04/12/19 25 025 Inactive oxybutynin chloride ER 10 mg tablet,extended release 24 hr RxNorm: 713820 Take 1 Tablet(s) Oral QPM every evening 04/12/19 025 Inactive irbesartan 150 mg tablet RxNorm: 555730 Take 1 Tablet(s) Oral BID 04/12/19 025 Inactive Trelegy Ellipta 200 mcg-62.5 mcg-25 mcg powder for inhalation RxNorm: 9723841 Inhale 1 Puff(s) Inhalation every 24 hours 04/12/19 025 Inactive Vitron-C 65 mg iron-125 mg tablet,delayed release RxNorm: 5608192 Take 1 Tablet(s) Oral QOD every other day 04/12/19 025 Inactive Eliquis 5 mg tablet RxNorm: 6723690 Take 1 Tablet(s) Oral BID 04/12/19 25 025 Inactive Lantus Solostar U-100 Insulin 100 unit/mL (3 mL) subcutaneous pen RxNorm: 045836 Unit(s) Subcutaneous prime en with 2 units, [...] data Instructions Comment Date Alyx resides at [facility] since about 2021. Previously lived independently in [place]. . Has one daughter Maggie who is involved in healthcare. PMH: History of breast cancer and melanoma, mixed dementia, depression, CAD, HLD, history of CVA/TIA, compression fx of L1 vertebrae, urinary incontinence, hearing loss, osteopeniaPrimary contact: Maggie Gallegos (Daughter)Code Status: DNR/SelectLab Schedule: Mar/SepSpecialists: Lisa Neurology (Q6M), Cardiology [facility] (MD Echo) 08/06/2024
[2024-09-21 17:48] VITALS: BP 186/118; PULSE 90; RESP 18; TEMP 36.8; O2SAT 93
--- OUTSIDE RECORDS SUMMARY | 2024-09-21 17:56 | XMS_ITS | Clinical Summary ---
Author Organization [facility] Address [address] [place] [address] Care Team Providers Care Weigh Box Tender Name Role Phone Darien Sanchez MD Primary Care Provider [phone] Source Comments You are receiving this document [...] for each transition of care or referral. [facility] Allergies Active Allergy Reactions Criticality Noted Date [...] (10/30/2016): LW Modifier: R thalamus LW Onset: [id number] ; Lacunar Infarct Obesity 04/27/2010 Morbid obesity [...] 36.9 C (98.4 F) 04/16/2011 3:42 PM RAIL BONDER Respiratory Rate 22 06/23/2012 8:49 PM CDT Oxygen Saturation 100% 03/10/2008 8:00 AM RAIL BONDER Inhaled Oxygen Concentration - - Weight 130.2 [...] Medicare Annual Wellness Visit 03/10/2024 Influenza Vaccine (#1) 2024 , 11/02/2019, 11/20/2017, Additional history exists Pneumococcal [...] this topic Medical Devices Implanted Type Area Toy 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 Train 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 Device Identifier Shelf Expiration Date Model / Serial / Lot Scr Roberta Sftp 3.5/2.7hx16 - [id number] Implanted:Qty: 4 on 03/07/2008 at [facility] DEVICE Right: [employer] [id number] / / Scr Omero Sftp 2.7x16 - [id number] Implanted:Qty: 1 on 03/07/2008 at [facility] DEVICE Right: [employer] [id number] / / Plt Fib Dist Lk Rt 158mm 10h - [id number] Implanted:Qty: 1 on 03/07/2008 at [facility] DEVICE Right: [employer] [id number] / / Scr Lk 2.7x10mm - [id number] Implanted:Qty: 1 on 03/07/2008 at [facility] DEVICE Right: [employer] 4828-010-02 / / Scr Lk 2.7x12mm - [id number] Implanted:Qty: 1 on 03/07/2008 at [facility] DEVICE Right: [employer] [id number] / / Scr Lk 2.7x14mm - [id number] Implanted:Qty: 2 on 03/07/2008 at [facility] DEVICE Right: [employer] [id number] / / Scr Lk 2.7x16 - [id number] Implanted:Qty: 2 on 03/07/2008 at [facility] DEVICE Right: [employer] [id number] / / Procedures Procedure Name Priority Date/Time Associated Diagnosis Comments CREATININE / GFR Routine 04/03/2011 12:1 7 PM RAIL BONDER Essential hypertension LIPID PANEL & DIRECT LDL (IF NEEDED) Routine 02/25/2011 12:01 PM RAIL BONDER Type II or unspecified type diabetes mellitus without mention of complication, not stated as uncontrolled (HRC) HGB A1C Routine 02/25/2011 12:01 PM RAIL BONDER Type II or unspecified type diabetes mellitus without mention of complication, not stated as uncontrolled (HRC) from Last 3 Months or Most Recently Relevant to Health Maintenance Results * Creatinine / GFR (04/03/2011 12:17 PM RAIL BONDER) Creatinine Serum 0.9 0.4 - 1.3 mg/dL HP CONVERSION Est GFR Am >60 >60 mL/min/1.7 3m2 HP CONVERSION Est GFR Non-Afr Am >60 >60 mL/min/1.7 3m2 HP CONVERSION Comment: Normal>60, moderate decrease 30 - 59, severe decrease 15 - 29, renal failure <15 mL/min/1.73 m2 NOTE: Choose the eGFR result above appropriate for the race of the patient. 04/03/2011 12:1 7 PM RAIL BONDER 04/03/2011 12:17 PM RAIL BONDER Narrative HP CONVERSION - 04/03/2011 3:29 PM RAIL BONDER Performed at [facility], [address] [place] [address] us Jeffrey Duke MD LAB_1 Final Resul t Performing Organization Address [facility] de Phone Number HP CONVERSION * (ABNORMAL) Lipid Panel and Direct LDL(If Needed) (02/25/2011 12:01 PM RAIL BONDER) Cholesterol 169 0 - 200 mg/dL HP CONVERSION Triglycerides 158(H) 0 - 149 mg/dL HP CONVERSION HDL Cholesterol 47 >39 mg/dL HP CONVERSION Cholesterol/HDL Ratio Screen 3.6 HP CONVERSION LDL Calculated 90 19 - 130 mg/dL HP CONVERSION Hours Fasting 12.0 HP CONVERSION 02/25/2011 12:0 1 PM RAIL BONDER 02/25/2011 12:00 PM RAIL BONDER Narrative HP CONVERSION - 02/25/2011 3:30 PM RAIL BONDER Performed at [facility], [address] [place] [address] Transcriptions 04/19/2016 9:42 PM CSTNotes Recorded by Jeffrey Duke MD on 02/25/2011 at 5:08 PMWait for all results to be available to send a single lab letter explaining results. us Jeffrey Duke MD LAB_1 Final Resul t Performing Organization Address [facility] de Phone Number HP CONVERSION * (ABNORMAL) Hgb A1c (02/25/2011 12:01 PM RAIL BONDER) HGB A1C 7.3(H) 0.0 - 6.0 % HP CONVERSION 02/25/2011 12:0 1 PM RAIL BONDER 02/25/2011 2:44 PM RAIL BONDER Jeffrey Duke MD LAB_1 Final Resul t Performing Organization Address [facility] Co de Phone Number HP CONVERSION from Last 3 Months or Most Recently Relevant to Health Maintenance Insurance [facility] MEDICARE ADVANTAGE Advance Directives Documents on File Type Date Recorded 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
--- OUTSIDE RECORDS SUMMARY | 2024-09-21 17:58 | XMS_ITS | Clinical Summary ---
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 Name Role Phone Narendra Ricardo MD Conditions or Problems Problem Name Problem Code Onset Date Status Entry Date Provider Comment Standard Description Annotate Gait imbalance 930366640 (SNOMED CT) 04/11 Active 04/11 Narendra Ricardo MD Abnormal gait due to impairment of balance Dementia 74932148 (SNOMED CT) 04/11 Active 04/11 Narendra Ricardo MD Dementia Hypertension 99276249 (SNOMED CT) 09/26 Active 09/26 Narendra Ricardo MD Hypertensive disorder Type 2 diabetes mellitus 91374562 (SNOMED CT) 09/26 Active 09/26 Narendra Ricardo MD Type 2 diabetes mellitus Depression NOS 75126706 (SNOMED CT) 04/13 Active 04/22 Suni Begum PsyD Depressive disorder Mild cognitive impairment 555555675 (SNOMED CT) 04/13 Active 04/22 Suni Begum PsyD Mild neurocognitive disorder Memory loss 51341802 (SNOMED CT) 07/17 Active 07/17 Narendra Ricardo MD Amnesia MIGRAINE VARIANT, 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 (ICD-9-CM) 08/10 Active 08/10 Dick Rashid DO Variants of migraine, not elsewhere classified, without mention of intractable migraine, without mention of status migrainosus HEADACHE 23107650 (SNOMED CT) 08/10 Active 08/10 Dick Michaelsrel DO Headache Medications Medication Instructions Start Date Stop Date Generic Name [facility] Provider DONEPEZIL HCL 10 MG TABS Take 1 tablet by mouth once a day 04/22 donepezil 14377182457 Laila Dinaneftali Aguirreil PA-C DONEPEZIL HCL 23 MG TABS Take 1 tablet by mouth once a day 04/11 donepezil 92029365006 Elva Underwood RN, BSN DONEPEZIL HCL 10 MG TABS Take 1 tablet by mouth once a day 04/11 donepezil 02332746648 Narendra Ricardo MD DONEPEZIL HCL 23 MG TABS Take 1 tablet by mouth once a day 04/11 donepezil 85535312677 Narendra Ricardo MD QUETIAPINE FUMARATE 25 MG TABS take 1 tab by mouth at bedtime 11/13 quetiapine 30552448006 Laila Larkin PA-C VALSARTAN twice a day 10/09 DIOVAN Laila Larkin PA-C ASPIRIN 325 MG TABS once a day 10/09 aspirin 89834411980 Laila Larkin PA-C HYDROCHLOROTHIAZIDE 25 MG TABS once a day 10/09 hydrochlorothiazi de 94521884003 Laila Aguirreil PA-C TEMAZEPAM 30 MG CAPS Bedtime 10/09 temazepam 02075994082 Laila Larkin PA-C HYDROCODONE-ACETAMIN OPHEN 5-325 MG TABS every six hours as needed 10/09 hydrocodone-aceta minophen 95279533076 Laila Aguirreil PA-C POTASSIUM CHLORIDE ER 10 MEQ CR-CAPS twice a day 10/09 potassium chloride 19454871122 Laila Aguirreil PA-C DIAZEPAM 5 MG TABS 1 tablet by mouth 07/23 diazepam 51928275177 Laila Aguirreil PA-C METFORMIN HCL 500 MG TABS 10/09 metformin 70525270280 Laila Aguirreil PA-C FLUTICASONE PROPIONATE HFA 10/09 FLOVENT HFA [facility] THIAMINE HCL once a day 10/09 THIAMINE [facility] INSULIN ISOPHANE twice a day 10/09 HUMAN Laila Dina Trae NEAL TIOTROPIUM BROMIDE MONOHYDRATE once a day 10/09 SPIRIVA HANDIHALER [facility] SENNOSIDES 8.6 MG TABS twice a day as needed 10/09 SENNOSIDES [facility] POTASSIUM CHLORIDE ER 10 MEQ CR-TABS 10/09 potassium chloride 99461346276 [facility]NGEL ALBUTEROL SULFATE HFA 108 (90 Base) MCG/ACT AERS every four hours as needed 10/09 albuterol sulfate 38608276949 [facility] CALCIUM/C/D 500-10-250 MG-MG-UNIT CHEW calcium carbonate 29284454938 [facility] Dina Cherjoseri ÁNGEL VITAMIN D3 25 MCG (1000 UT) TABS cholecalciferol (vitamin d3) 74340055572 [facility] Dina Cherjoseri ÁNGEL TRELEGY ELLIPTA 200-62.5-25 MCG/ACT AEPB fluticasone-umec l idin-vilanter 75069827634 [facility] DIAZEPAM 5 MG TABS 1 tablet by mouth 07/23 diazepam 62773030820 Narendra Ricardo MD SENNOSIDES 8.6 MG TABS twice a day as needed 10/09 SENNOSIDES Narendra Ricardo MD BISACODYL 10 MG SUPP once a day as needed 04/11 bisacodyl 93575444584 Narendra Ricardo MD VALSARTAN twice a day 10/09 DIOVAN Narendra Ricardo MD VITAMIN B-12 500 MCG TABS once a day cyanocobalamin (vitamin b-12) 68904199740 Narendra Ricardo MD LEVOFLOXACIN 500 MG TABS null 04/11 levofloxacin 28855904978 Narendra Ricardo MD HYDROCHLOROTHIAZIDE 25 MG TABS once a day hydrochlorothiaz i de 26885697992 Narendra Ricardo MD POTASSIUM CHLORIDE ER 10 MEQ CR-CAPS twice a day 09/17 potassium chloride 50831699091 Narendra Ricardo MD TIOTROPIUM BROMIDE MONOHYDRATE once a day 10/09 SPIRIVA HANDIHALER Narendra Ricardo MD ASPIRIN 325 MG TABS once a day 10/09 aspirin 70918801831 Narendra Ricardo MD GLIPIZIDE 10 MG TABS once a day 04/11 glipizide 92812872574 Narendra Ricardo MD CO Q-10 300 MG CAPS once a day coenzyme q10 8883 1169839 Narendra Ricardo MD IRBESARTAN 300 MG TABS twice a day irbesartan 81482777788 Narendra Ricardo MD THIAMINE HCL once a day 10/09 THIAMINE Narendra Ricardo MD DONEPEZIL HCL 5 MG TABS 04/11 donepezil 79257946527 Narendra Ricardo MD NYSTATIN 461213 UNIT/GM CREA 2-3X/Day 04/11 nystatin 78732241954 Narendra Ricardo MD CLONIDINE HCL 0.3 MG TABS three times a day 04/11 clonidine hcl 01666438169 Narendra Ricardo MD ALBUTEROL SULFATE HFA 108 (90 Base) MCG/ACT AERS every four hours as needed 10/09 albuterol sulfate 57161041066 Narendra Ricardo MD FUROSEMIDE 20 MG TABS once a day 04/11 furosemide 27896806882 Narendra Ricardo MD CLOPIDOGREL BISULFATE 75 MG TABS once a day 04/11 clopidogrel 90101888407 Narendra Ricardo MD INSULIN ISOPHANE twice a day 10/09 HUMAN Narendra Ricardo MD TEMAZEPAM 30 MG CAPS Bedtime 10/09 temazepam 29469961281 Narendra Ricardo MD NAPROXEN SODIUM 220 MG TABS twice a day 04/11 naproxen sodium 45362118982 Narendra Ricardo MD BUMETANIDE 0.5 MG TABS twice a day 04/11 bumetanide 93509277212 Narendra Ricardo MD HYDROCODONE-ACETAMIN OPHEN 5-325 MG TABS every six hours as needed 10/09 hydrocodone-aceta minophen 87869979478 Narendra Ricardo MD WARFARIN SODIUM 1 MG TABS once a day 04/11 warfarin 87573118153 Narendra Ricardo MD FLUTICASONE PROPIONATE HFA 10/09 FLOVENT HFA Narendra Ricardo MD HYDROCHLOROTHIAZIDE 25 MG TABS once a day 10/09 hydrochlorothiazi de 10513737547 Narendra Ricardo MD DONEPEZIL HCL 10 MG TABS Take 1 tablet by mouth once a day 04/11 donepezil 12075033019 Narendra Ricardo MD DONEPEZIL HCL 5 MG TABS 04/11 donepezil 77230314382 Narendra Ricardo MD METFORMIN HCL 500 MG TABS 10/09 metformin 29861952977 Narendra Ricardo MD LANTUS SOLOSTAR 100 UNIT/ML SOPN insulin glargine 36733346981 Samira Ricardo MD POTASSIUM CHLORIDE ER 10 MEQ CR-TABS 10/09 potassium chloride 35202048484 Narendra Ricardo MD FLUOXETINE HCL 10 MG CAPS fluoxetine 86041169011 Narendra Ricardo MD DIAZEPAM 5 MG TABS One tab po 30min before scan. July repeat x 1. 07/23 DIAZEPAM 31495125680 Narendra Ricardo MD WARFARIN SODIUM 1 MG TABS Daily 04/11 WARFARIN SODIUM 1 MG ORAL TABLET 71155045979 System Maintenance VALSARTAN (DIOVAN) 160 MG TAB, [...] Bedtime 04/11 TEMAZEPAM 30 MG ORAL CAPSULE 58774804252 System Maintenance SENNOSIDES 8.6 MG TABS Twice A Day as needed 04/11 SENNOSIDES, LONGTERM 8.6 MG ORAL TABLET 98899804257 System Maintenance POTASSIUM CHLORIDE ER 10 MEQ CR-CAPS Twice A Day 09/17 POTASSIUM CHLORIDE 10 MEQ EXTENDED RELEASE ORAL CAPSULE 35252160518 System Maintenance NYSTATIN 467467 UNIT/GM CREA 2-3X/Day 09/17 NYSTATIN 674450 UNT/ML TOPICAL CREAM 16207477929 System Maintenance NAPROXEN SODIUM 220 MG TABS Twice A Day 09/17 NAPROXEN SODIUM 220 MG ORAL TABLET 35456080629 System Maintenance LEVOFLOXACIN 500 MG TABS null 04/11 LEVOFLOXACIN 500 MG ORAL TABLET 21377881326 System Maintenance IRBESARTAN 300 MG TABS Twice A Day 04/11 IRBESARTAN 300 MG ORAL TABLET 83812076315 System Maintenance INSULIN ISOPHANE (HUMAN) (NOVOLIN N RELION) RELION INJ, 15-25 UNIT SUBCUTANEOUSL Twice A Day 04/11 INSULIN HUMAN, ISOPHANE 100 UNT/ML INJECTABLE SUSPENSION System Maintenance HYDROCHLOROTHIAZIDE 25 MG TABS Daily 04/11 HYDROCHLOROTHIAZI DE 25 MG ORAL TABLET 17650885394 System Maintenance HYDROCHLOROTHIAZIDE 25 MG TABS Daily 04/11 HYDROCHLOROTHIAZI DE 25 MG ORAL TABLET 25133694122 System Maintenance GLIPIZIDE 10 MG TABS Daily 04/11 GLIPIZIDE 10 MG ORAL TABLET 56836769601 System Maintenance FUROSEMIDE 20 MG TABS Daily 04/11 FUROSEMIDE 20 MG ORAL TABLET 27786417758 System Maintenance FLUTICASONE PROPIONATE HFA (FLOVENT HFA) 220 MCG/ACT AER 04/11 120 ACTUAT FLUTICASONE PROPIONATE 0.22 MG/ACTUAT METERED DOS System Maintenance B-12 500 MCG TABS Daily 04/11 VITAMIN B 12 0.5 MG ORAL TABLET 12008451788 System Maintenance CO Q-10 300 MG CAPS Daily 04/11 COENZYME Q10 300 MG ORAL CAPSULE 85157762045 System Maintenance CLOPIDOGREL BISULFATE 75 MG TABS Daily 04/11 CLOPIDOGREL 75 MG ORAL TABLET 36599250108 System Maintenance CLONIDINE HCL 0.3 MG TABS Three Times A Day 04/11 CLONIDINE HYDROCHLORIDE 0.3 MG ORAL TABLET 87466070864 System Maintenance BUMETANIDE 0.5 MG TABS Twice A Day 09/17 BUMETANIDE 0.5 MG ORAL TABLET 42578074058 System Maintenance BISACODYL LAXATIVE 10 MG SUPP Daily as needed 04/11 BISACODYL 10 MG RECTAL SUPPOSITORY 12789764932 System Maintenance ASPIRIN 325 MG TABS Daily 04/11 ASPIRIN 325 MG ORAL TABLET 47341138333 System Maintenance ALBUTEROL SULFATE HFA 108 (90 Base) MCG/ACT AERS Every 4 Hours as needed 04/11 200 ACTUAT ALBUTEROL 0.09 MG/ACTUAT METERED DOSE INHALER 31724120326 System Maintenance HYDROCODONE-ACETAMIN OPHEN 5-325 MG TABS Every 6 Hours as needed 04/11 ACETAMINOPHEN 325 MG / HYDROCODONE BITARTRATE 5 MG ORAL TABL 06455175919 System Maintenance Medications Administered No information available. 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 Replaced Document: (P) T4, F REE, TSH, VITAMIN B12 B-12 * pg/mL Cobalamin (Vitamin B12) [Mass/volume] in Serum or Plasma TSH 1.75 u[iU]/mL 0.40-4.50 N Thyrotropi n [Units/volume] in Serum or Plasma FRT4 1.0 0.8-1.8 N FREE T4 Internal Other: Verbal Autho rization/Emergency Contact - OBS VERBAL_EMER DONE Verbal authorization and emergency contact External Correspondence: [facility] Directive/Healthcare power of patent attorney - OBS AD DISCUSSED Advanced care planning discussed Advanced directive discussed w/member/caregive r; Patient received counseling regarding palliation - symptom management - end of life decisions Office Visit: Office Visit f ax DEMENTIA2 Assessment of cognition performed and results reviewed. Total score [MMSE] [id number] Mild Total scor e [MoCA] MMSE SCORE [...] Detail Appointment 01:00 PM Laila Larkin PA-C, [address] [place] [address], [address], [place], [address], Pending order Follow up DOUGLAS Pending order [...] Name Date Entry Date ORDERS Follow up [facility]-[id number] Documentation of current medicatio ns [facility]-[id number] Documentation of current medicatio ns ORDERS Patient Instructions ORDERS Patient Instructions LOINC 16898-5 MMSE ORDERS Follow up DOUGLAS ORDERS Patient Instructions SCT-[id number] Documentation of current medicatio ns ORDERS Follow up LOINC 87143-4 MMSE ORDERS Obtain outside records 04/11 ORDERS Follow up DOUGLAS in clinic or telemedicine 2 LOINC 16616-9 MMSE ORDERS Patient Instructions SCT-[id number] Documentation of current medicatio ns ORDERS Patient Instructions ORDERS Occupational Therapy SCT-[id number] Documentation of current medicatio ns CPT-41688 Free Service ORDERS Follow up telemedicine 11/28 ORDERS Neuropsychology Evaluation 2 ORDERS Patient Instructions [facility]-[id number] Documentation of current medicatio ns ORDERS Follow up ORDERS Patient Instructions ORDERS Patient Instructions SCT-[id number] Documentation of current medicatio ns ORDERS Follow up DOUGLAS [id number] Consult SCT-[id number] Documentation of current medicatio ns ORDERS Patient Instructions ORDERS Follow up CPT-25840 Npsy Interp/Rpt by Provider - 1st hour 20 29/03/06 ORDERS Neuropsych Testing 0 CPT-45887 Npsy Interview w/Provider - 1st hour 2018 CPT-91376 Npsy Interp/Rpt by Provider - 1st hour 20 26/02/04 CPT-05887 Npsy Interp/Rpt by Provider - 2 hours 201 11/20/03 CPT-87856 Npsy Test by Tech (2+ Tests) - 1st 30 min CPT-81016 Npsy Test by Tech (2+ Tests) - 1.5 hours CPT-30331 MRI Brain W/O [id number] MRI-Brain W/O [facility]-[id number] Documentation of current medicatio ns ORDERS Patient [...]
--- OUTSIDE RECORDS SUMMARY | 2024-09-21 18:01 | XMS_ITS | Data Portability ---
Author Organization [facility], [facility] Address [address] [place] [address] Care Team Providers Care Pressure Supervisor Name Role Phone YOBANI GAMEZ Primary Care Provider Assessment No assessment recorded. Plan of Treatment Reminders Order Date Submit Date Provider Last Modified By Organization Details Last Modified Time Details Appointments None recorded. Lab urinalysis , dipstick 2023 024 [email or web address] [facility], [address], [place], [address], 4 15:42:13 urinalysis , dipstick 2022 023 [facility], [address], [address], [place], [address], 3 14:52:30 urinalysis , dipstick 2021 022 [email or web address] [facility], [address], [address], [place], [address], 2 15:00:59 Referral None recorded. Procedures bladder scan (PROC) 2022 023 [facility], [address], [address], [place], [address], 14:52:32 Surgeries None recorded. Imaging None recorded. Medication Orders None recorded. Patient TargetsNo targets recorded. Patient Instructions Encounter Date Encounter Id Patient Instructions Last Modified By Organization Details Last Modified Time 10/30/2021 [id number] will restart on gemtesa. plan recheck in 3 months. [email or web address] Not available 10/30/2021 15:08:56 01/29/2022 [id number] will continue on gemtesa samples. rtc 3 months. [email or web address] Not available 01/29/2022 12:05:53 10/17/2022 [id number] willt ry startin g her on oxybutynin ER 10mg daily and plan recheck in 2 months for SE's and effectiveness. rx sent on paperwork for the [facility] facility [email or web address] Not available 10/17/2022 11:10:27 01/28/2023 [id number] will set her up for UDS in [place]. [email or web address] Not available 01/28/2023 14:52:27 Reason for Referral None Reported. Results Created Date Observation Date Name Description Value Unit Range Abnormal Flag Note LastModifiedBy Organization Detail LastModifiedTime 10/31/1910/30/2021 urina lysis , dipst ick pH-Status 7.0 Not Available [address], [place], [address], 10/30/2021 15:00:30 10/31/19 22 10/30/2021 urina lysis , dipst ick Leuko-Status Small Not Available [address], [place], [address], 10/30/2021 15:00:30 01/29/20 23 01/28/2023 bladd er scan (PROC ) Volume (in mL) 0ml Not Available [address], [place], [address], 01/28/2023 14:44:33 01/29/20 23 01/28/2023 urina lysis , dipst ick pH-Status 7.0 Not Available [facility] [address], [place], [address], 01/28/2023 14:44:31 01/29/20 23 01/28/2023 urina lysis , dipst ick Leuko-Status Trace Not Available [facility] [address], [place], [address], 01/28/2023 14:44:31 03/26/19 24 03/26/2023 urina lysis , dipst ick Color-Status Yellow Not Available [facility] [address], [place], [address], 03/26/2023 15:41:09 03/26/19 24 03/26/2023 urina lysis , dipst ick Clarity-Stat us Clear Not Available [facility] [address], [place], [address], 03/26/2023 15:41:09 03/26/19 24 03/26/2023 urina lysis , dipst ick Glucose-Stat us Negati ve Not Available [facility] [address], [place], [address], 03/26/2023 15:41:09 03/26/19 24 03/26/2023 urina lysis , dipst ick Bilirubin-St atus Negati ve Not Available [facility] [address], [place], [address], 03/26/2023 15:41:09 03/26/19 24 03/26/2023 urina lysis , dipst ick Ketones-Stat us Negati ve Not Available [facility] [address], [place], [address], 03/26/2023 15:41:09 03/26/19 24 03/26/2023 urina lysis , dipst ick Sp Madison-Stat us 1.020 Not Available [facility] [address], [place], [address], 03/26/2023 15:41:09 03/26/19 24 03/26/2023 urina lysis , dipst ick pH-Status 7.0 Not Available [facility] [address], [place], [address], 03/26/2023 15:41:09 03/26/19 24 03/26/2023 urina lysis , dipst ick Urobilinogen -Status 0.2 Not Available [facility] [address], [place], [address], 03/26/2023 15:41:09 03/26/19 24 03/26/2023 urina lysis , dipst ick Nitrates-Sta tus negati ve Not Available [facility] [address], [place], [address], 03/26/2023 15:41:09 03/26/19 24 03/26/2023 urina lysis , dipst ick Blood-Status Trace Not Available [facility] [address], [place], [address], 03/26/2023 15:41:09 03/26/19 24 03/26/2023 urina lysis , dipst ick Leuko-Status Negati ve Not Available [facility] [address], [place], [address], 03/26/2023 15:41:09 03/26/19 24 03/26/2023 urina lysis , dipst ick Specimen Type Voided Not Available [facility] [address], [place], [address], 03/26/2023 15:41:09 11/01/19 22 10/30/2021 bladd er [...] Organization Details Recorded Time Overactive urinary bladder 743714180 Active 022 Faivo Montalvo MD [address] [place] [address],[address], [place], [address], [facility] 12:03:28 Problem Notes None recorded. Procedures Surgical History Date Name Laterality Status Provider Name and Address Organization Details Recorded Time 03/26/19 24 Urodynamic Studies completed Giovanna Bolivar [facility] 03/26/2023 15:42:26 01/29/20 23 Bladder Scan completed Mario Renee [facility] 01/28/2023 14:44:23 10/18/19 23 Bladder Scan completed Lisa Bui [facility] 10/17/2022 10:45:47 01/30/20 22 Bladder Scan completed Favio Montalvo MD [address] [place] [address],[address], [place], [address], [facility] 01/29/2022 11:58:31 10/31/19 22 Bladder Scan completed Favio Montalvo MD [address] [place] [address],[address], [place], [address], [facility] 10/30/2021 15:00:24 08/22/19 22 Bladder Scan completed Favio Montalvo MD [address] [place] [address],[address], [address], [facility] 08/21/2021 14:33:40 07/06/19 22 Bladder Scan completed Kristi Lloyd [facility] 07/05/2021 12:34:16 Total Hysterectomy completed Kristi Lloyd [facility] 07/05/2021 12:34:29 Cataract Surgery completed Kristi Lloyd [facility] 07/05/2021 12:34:36 Orthopedic Surgery completed Kristi Lloyd [facility] 07/05/2021 12:34:45 Imaging Results None recorded. Procedure Notes None recorded. Medical Equipment None Reported. Allergies Allergen ID Allergen Name Allergen Category Reaction Reaction Severity Criticality Documentation Date Start Date Code Code System Note Provider Name and Address Organization Details Recorded Time 776015 amlodipin e medicatio n Not available Not available Not available 03/26/2023 15847 [facility] 13:42:36 179517 azithromy lalo medicatio n Not available Not available Not available 03/26/2023 24388 [facility] 13:42:44 555233 furosemid e medicatio n Not available Not available Not available 03/26/2023 4603 [facility] 13:42:50 123864 insulin detemir medicatio n Not available Not available Not available 03/26/2023 38625 5 [facility] 13:42:57 580163 metformin medicatio n Not available Not available Not available 03/26/2023 6809 [facility] 13:43:06 775150 metoprolo l Not available Not available Not available Not available 03/26/2023 6918 [facility] 13:43:15 265378 naproxen medicatio n Not available Not available Not available 03/26/2023 7258 [facility] 13:43:22 264303 sitaglipt in medicatio n Not available Not available Not available 03/26/2023 39184 1 [facility] 13:43:40 558604 exenatide medicatio n Not available Not available Not available 03/26/2023 14724 RxNorm Giovanna sheth, [facility] 4 13:43:47 230166 levofloxa lalo medicatio n Not available Not available Not available 03/26/2023 45505 RxNorm Giovanna sheth, [facility] 4 13:43:55 987480 clopidogr el medicatio n Not available Not available Not available 03/26/2023 33661 RxNorm Giovanna sheth, [facility] 4 13:44:08 946888 losartan medicatio n Not available Not available Not available 03/26/2023 73180 RxNorm Giovanna sheth, [facility] 4 13:44:19 839565 Product containin g penicilli n (product) medicatio n Not available Not available Not available 03/26/2023 96639 8001 [facility]ED [facility] 4 13:44:25 055156 lisinopri l medicatio n Not available Not available Not available 03/26/2023 72224 Rx[facility] 4 13:44:30 132270 pioglitaz one medicatio n Not available Not available Not available 03/26/2023 87472 Rx[facility] 4 13:44:41 217420 simvastat in medicatio n Not available Not available Not available 03/26/2023 77727 Rx[facility] 4 13:44:47 Medications Name Sig Start [...] Updated DateTime 10/17/2022 172.72 cm 32.2 kg/m2 62205.58 g Lisa Bui [facility] 10/17/2022 10:45:30 Date Recorded Body height Body mass index (BMI) Body weight Provider Name and Address Organization Details Last Updated DateTime 10/30/2021 172.72 cm 33.5 kg/m2 42951.32 g Favio Montalvo MD [address] [place] [address],[address], [address] 10/30/2021 14:59:44 Date Recorded Body height Body mass index (BMI) Body weight Provider Name and Address Organization Details Last Updated DateTime 01/28/2023 172.72 cm 32.2 kg/m2 19093.58 g Mario Víctor [facility] 01/28/2023 14:43:47 Date Recorded Body height Body mass index (BMI) Body weight Provider Name and Address Organization Details Last Updated DateTime 01/29/2022 172.72 cm 32.2 kg/m2 86692.58 g Favio Montalvo MD [address] [place] [address],[facility] [address], [place], [address] 01/29/2022 11:57:56 Social History Question Answer Notes LastModified by Organizat ion Details LastModified Time Tobacco Smoking Status Former Smoker Favio Montalvo MD [address] [place] [address],[address], [address] 07/05/2021 12:28:26 What Is Your Level Of Caffeine Consumption? Occasional [email or web address] Information not available 08/21/2021 When Did You Quit Smoking? 16+yearssinlisaa michael [email or web address] Information not available 07/05/2021 What Was The Date Of Your Most Recent Tobacco Screening? 07/05/2021 [email or web address] Information not available 07/05/2021 Has Tobacco Cessation Counseling Been Provided? No [email or web address] Information not available 07/05/2021 Sex: Unknown Functional Status Question Answer Note LastModified by Organizat ion Details LastModified Time Do you or have you ever used any other forms of tobacco or nicotine? No [email or web address] Information not available 07/05/2021 What is your level of alcohol consumption? Occasional Information not available 08/21/2021 Mental Status None recorded. Family History Relationship Description Onset Age of this Age Resolved Age Notes LastModified by Organization Details LastModified Time Sister Family history of breast cancer [email or web address] Not available 2021 12:36:10 Notes:x4 Medical History Condition Response Sexually Transmitted Infection N Diabetes N Other N Bleeding Disorder N High Blood Pressure Y Kidney Stones N High Cholesterol Y GERD/Acid Reflux N Heart Disease N Cancer Y Depression N Lung Disease N Gynecological History Statement/Question Response Sexually Active? N Obstetrics History GPAL:G 1 P 0 0 0 0 Immunizations Vaccine Type Date Status Note Provider Nam e and Address Organization Details Recorded Time Influenza, high-dose, trivalent, PF 6 completed Favio Montalvo MD [address] [place] [address],[address], [address] [place] [address], [facility] 07/05/2021 12:25:26 Influenza, split virus, trivalent, preservative 4 completed Favio Montalvo MD [address] [place] [address],[address], [address] [place] [address], [facility] 07/05/2021 12:25:26 zoster recombinant 9 completed Favio Montalvo MD [address] [place] [address],[address], [address] [place] [address], [facility] 07/05/2021 12:25:27 influenza, unspecified formulation 9 completed Favio Montalvo MD [address] [place] [address],[address], [address] [place] [address], [facility] 07/05/2021 12:25:27 zoster recombinant 0 completed Favio Montalvo MD [address] [place] [address],[address], [address], [facility] 07/05/2021 12:25:27 Influenza, split virus, trivalent, preservative 4 completed Favio Montalvo MD [address] [place] [address],[address], [address], [facility] 07/05/2021 12:25:27 Influenza, recombinant, quadrivalent, PF 9 completed Favio Montalvo MD [address] [place] [address],[address], [address], [facility] 07/05/2021 12:25:27 COVID-19, mRNA, LNP-S, PF, 30 mcg/0.3 mL dose 1 completed Favio Montalvo MD [address] [place] [address],[address], [place], [address], [facility] 07/05/2021 12:25:27 pneumococcal polysaccharide PPV23 2 completed Favio Montalvo MD [address] [place] [address],[address], [place], [address], [facility] 07/05/2021 12:25:27 Td (adult), 2 Lf tetanus toxoid, preservative free, adsorbed 4 completed Favio Montalvo MD [address] [place] [address],[address], [place], [address], [facility] 07/05/2021 12:25:27 Influenza, high-dose, trivalent, PF 5 completed Favio Montalvo MD [address] [place] [address],[address], [place], [address], [facility] 07/05/2021 12:25:27 pneumococcal polysaccharide PPV23 7 completed Favio Montalvo MD [address] [place] [address],[address], [place], [address], [facility] 07/05/2021 12:25:27 Pneumococcal conjugate PCV 13 5 completed Favio Montalvo MD [address] [place] [address],[address], [place], [address], [facility] 07/05/2021 12:25:27 Influenza, split virus, quadrivalent, PF 0 completed Favio Montalvo MD [address] [place] [address],[address], [place], [address], [facility] 07/05/2021 12:25:27 Influenza, adjuvanted, trivalent, PF 8 completed Favio Montalvo MD [address] [place] [address],[facility] [address], [place], [address], [facility] 07/05/2021 12:25:27 Influenza, split virus, trivalent, preservative 2 completed Favio Montalvo MD [address] [place] [address],[address], [place], [address], [facility] 07/05/2021 12:25:27 Td (adult), 2 Lf tetanus toxoid, preservative free, adsorbed 8 completed Favio Montalvo MD [address] [place] [address],[address], [address], [facility] 07/05/2021 12:25:27 Influenza, split virus, trivalent, preservative 3 completed Favio Montalvo MD [address] [place] [address],[address], [place], [address], [facility] 07/05/2021 12:25:27 pneumococcal polysaccharide PPV23 8 completed Favio Montalvo MD [address] [place] [address],[address], [address], [facility] 07/05/2021 12:25:27 Influenza, adjuvanted, quadrivalent, PF 1 completed Favio Montalvo MD [address] [place] [address],[address], [place], [address], [facility] 07/05/2021 12:25:27 Influenza, split virus, trivalent, preservative 1 completed Favio Montalvo MD [address] [place] [address],[address], [place], [address], [facility] 07/05/2021 12:25:27 COVID-19, mRNA, LNP-S, PF, 30 mcg/0.3 mL dose 1 completed Favio Montalvo MD [address] [place] [address],[address], [address], [facility] 07/05/2021 12:25:27 Influenza, adjuvanted, trivalent, PF 7 completed Favio Montalvo MD [address] [place] [address],[facility] [address], [address], [facility] 07/05/2021 12:25:27 Hep A, adult 4 completed Favio Montalvo MD [address] [place] [address],[address], [address], [facility] 07/05/2021 12:25:27 Td (adult), 5 Lf tetanus toxoid, preservative free, adsorbed 9 completed Favio Montalvo MD [address] [place] [address],[address], [place], [address], [facility] 07/05/2021 12:25:27 Influenza, split virus, trivalent, preservative 3 completed Favio Montalvo MD [address] [place] [address],[address], [address], [facility] 07/05/2021 12:25:27 Td (adult), 2 Lf tetanus toxoid, preservative free, adsorbed 5 completed Favio Montalvo MD [address] [place] [address],[address], [address], [facility] 07/05/2021 12:25:27 Influenza, split virus, trivalent, preservative 0 completed Favio Montalvo MD [address] [place] [address],[address], [address], [facility] 07/05/2021 12:25:27 COVID-19, mRNA, LNP-S, PF, 30 mcg/0.3 mL dose 1 completed Favio Montalvo MD [address] [place] [address],[address], [place], [address], [facility] 07/05/2021 12:25:27 COVID-19, mRNA, LNP-S, bivalent, PF, 30 mcg/0.3 mL dose 2 [facility] 12/06/2022 14:16:47 Past Encounters Encounter ID Performer Location Encounter Start Date Encounter Closed Date Diagnosis/Indication Diagnosis SNOMED-CT Code Diagnosis ICD10 Code Diagnosis Note [id number] Favio Montalvo MD [facility] [address] [address] [place] [address] 07/05/2021 12:04:29 07/09/2021 13:18:18 Incontinence 87536720 R32 Urge incon tinence of urine 30496618 N39.41 [id number] Favio Montalvo MD [facility] [address],[place] [address] [place] [address] 08/21/2021 14:17:28 08/24/2021 16:43:35 Incontinence 44781386 R32 Increased frequency of urination 401978367 R35.0 [id number] Favio Montalvo MD [facility] [address] [place] [address] 10/30/2021 14:41:21 11/02/2021 12:36:58 Incontinence 27189051 R32 Overactive urinary bladder 580377681 N32.81 [id number] Favio Montalvo MD _[facility] [address] [place] [address] 01/29/2022 11:43:59 02/04/2022 14:09:05 Overactive urinary bladder 643966555 N32.81 [id number] Favio Montalvo MD [facility] [address] [place] [address] 10/17/2022 10:33:10 10/18/2022 16:52:40 Overactive urinary bladder 712500226 N32.81 [id number] Favio Montalvo MD _[facility] [address] [place] [address] 01/28/2023 14:27:53 02/03/2023 13:20:07 Overactive urinary bladder 575978621 N32.81 [id number] Favio Montalvo MD [facility] [address] [place] [address] 03/26/2023 13:12:53 03/28/2023 11:30:16 Overactive urinary bladder 122567381 N32.81 Health Concerns Section Related Observation LastModified by Organization Detai ls LastModified Time None Recorded Concern Status LastModified by Organization Details LastModified Time None Recorded Advance Directives Directive None Recorded Payers Insurance Date Sequence Insurance Name Policy Number Policy Butts Covered Member ID Butts Member ID Guarantor Name 04/17/2023 2 [place] by [employer] Alyx Sarmiento [id number] Alyx Sarmiento 04/19/2023 1 [place] [id number] Alyx Sarmiento [id number] Alyx Sarmiento 04/17/2023 2 [place] 1 Alyx Sarmiento [id number] Alyx Sarmiento 04/17/2023 1 [place] [id number] Alyx Sarmiento [id number] Alyx Sarmiento Notes Date Note Type Note Provider Name and Address Organization Details Recorded Time 10/30/2021 text/html follow up gemtesa. off med for two weeks but freq/urgency came back. UA bland and PVR 295ml today. Favio Montalvo MD [address] [place] [address],[address] [place] [address], [address], [facility] 10/30/2021 15:09:16 01/29/2022 text/html taking gemtesa and working well, out of samples. PVR 19ml today. Fvaio Montalvo MD [address] [place] [address],[address], [place], [address], [facility] 01/29/2022 12:06:07 10/17/2022 text/html follow up OAB. was on gemtesa which worked and now having more accidents. PVR 0ml today. now living a assisted care who manages meds etc. Favio Montalvo MD [address] [place] [address],[address], [place], [address], [facility] 10/17/2022 11:10:30 01/28/2023 text/html follow up incontinence. tried gemtesa and now oxybutynin ER 10mg and neither worked. Mario sheth [facility] 01/28/2023 14:52:49 03/26/2023 text/html 88 YO F here for UDS testing- pt of TF Giovanna sheth [facility] 03/26/2023 15:44:35 OBGyn Episode No OBEpisode recorded.
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
[2024-09-21 18:21] VITALS: PULSE 89; O2SAT 94
[2024-09-21 18:30] VITALS: PULSE 81; O2SAT 93
--- NOTE | 2024-09-21 18:31 | CRLHL7_ITS ---
For Patients: As a result of the Century Cures Act, medical imaging exams and procedure reports are released immediately into your electronic medical record. You may view this report before your referring provider. If you have questions, please contact your health care provider. INDICATION: Right-sided chest pain after fall. TECHNIQUE: CT chest without contrast. COMPARISON: None. FINDINGS: Lungs and pleura: Unchanged ground-glass region within the central right upper lobe (3/36), possibly scarring. Interval decreased consolidation in the right lower lobe. Grossly unchanged left lower lobe consolidation. No pneumothorax. Small right pleural effusion, increased since the prior exam. Left lower lobe calcified granuloma. Heart and vasculature: Dilated main pulmonary artery measuring 4 cm, compatible with pulmonary arterial hypertension. Cardiomegaly. Coronary artery and thoracic aorta atherosclerotic calcification. No pericardial effusion. Lymph nodes/mediastinum: No mediastinal, hilar, or axillary adenopathy. Chest wall: No masses. Upper abdomen: No acute or significant findings. Splenic calcified granulomata. Unchanged bilateral adrenal gland enlargement. Diverticulosis. Bones: Bilateral shoulder arthroplasties. Multiple old bilateral rib fractures. Subacute right 8th rib fracture. Severe L1 chronic compression fracture. IMPRESSION: 1. Subacute right 8th rib fracture. No new rib fracture identified. 2. Interval decreased consolidation in the right lower lobe and grossly unchanged consolidation in the left lower lobe. 3. Slightly increased small right pleural effusion. 4. Several chronic findings, as above. Please note that all CT scans at this facility use dose modulation, iterative reconstruction, and/or weight-based dosing when appropriate to reduce radiation dose to as low as reasonably achievable. Dictated by Wilberto Hall MD @ 09/21/2024 7:08:27 PM (Electronically Signed)
--- OUTSIDE RECORDS SUMMARY | 2024-09-21 18:32 | XMS_ITS | Encounter Summary ---
Author Organization [facility] Address [address] [facility] [place] [address] Care Team Providers Care Blast Furnace Supervisor Name Role Phone Darien Sanchez Primary Care Provider [phone] Zahira Feldman MD Unavailable + Yumiko Sim MD Unavailable Kathy Bueno DO Unavailable [phone] Dixon Panchal MD Primary Care Provider [phone] Dixon Panchal MD Unavailable [facility] Unavailable Albertina Hartman APRN [facility] Unavailable [phone] Darlene Mendoza MD Primary Care Provider [phone] Eleanor Macedo PA-C Unavailable [phone] Encounter Details Date Type Department Care Team (Late st Contact Info) Description 07/26/2019 [facility] Only [facility] Specialty Care [address] [address] [place] [address] Billie Martinez MD [address] [facility] [address] [place] [address] Paroxysmal atrial fibrillation (H) (Primary [...] on file 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 [address] [place] [address] PCP - General Family Medicine 07/19/22 Zahira Feldman MD [address] [place] [address] MD Ophthalmology 10/13/17 Yumiko Sim MD [address] [place] [address] Assigned PCP 07/08/19 02/08/22 Kathy Bueno DO [address] [place] [place] [id number] Assigned Heart and Vascular Provider 12/31/19 04/07/21 Dixon Panchal MD [address] [place] [address] Assigned PCP 02/09/22 05/29/24 [facility] [id number] [place] [address] [phone] 07/17/22 Albertina Hartman APRN [employer] PL[employer]ING ANALYST [address] [place] [id number] Nurse Practitioner Geriatric Medicine 07/17/22 08/25/22 Eleanor Macedo PA-C [facility] [address] [address] Assigned Neuroscience Provider 08/31/22 02/29/24 Krysta Bhatti- [facility] [address] 07/15/22 documented as of this encounter
--- OUTSIDE RECORDS SUMMARY | 2024-09-21 18:40 | XMS_ITS | Clinical Summary ---
Author Organization [facility] Address [address] , [address] [place] [address] Phone Care Team Providers Care Health Commissioner Name Role Phone Narendra Ricardo MD Conditions or Problems Problem Name Problem Code Onset Date Status Entry Date Provider Comment Standard Description Annotate Gait imbalance 613025806 (SNOMED CT) 04/11 Active 04/11 Narendra Ricardo MD Abnormal gait due to impairment of balance Dementia 55749064 (SNOMED CT) 04/11 Active 04/11 Narendra Ricardo MD Dementia Hypertension 50032479 (SNOMED CT) 09/26 Active 09/26 Narendra Ricardo MD Hypertensive disorder Type 2 diabetes mellitus 29310539 (SNOMED CT) 09/26 Active 09/26 Narendra Ricardo MD Type 2 diabetes mellitus Depression NOS 54355093 (SNOMED CT) 04/13 Active 04/22 Suni Begum PsyD Depressive disorder Mild cognitive impairment 066083923 (SNOMED CT) 04/13 Active 04/22 Suni Begum PsyD Mild neurocognitive disorder Memory loss 74005000 (SNOMED CT) 07/17 Active 07/17 Narendra Ricardo MD Amnesia MIGRAINE VARIANT, 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 (ICD-9-CM) 08/10 Active 08/10 Dcik Rashid DO Variants of migraine, not elsewhere classified, without mention of intractable migraine, without mention of status migrainosus HEADACHE 29106203 (SNOMED CT) 08/10 Active 08/10 Dick Michaelsrel DO Headache Medications Medication Instructions Start Date Stop Date Generic Name [facility] Provider DONEPEZIL HCL 10 MG TABS Take 1 tablet by mouth once a day 04/22 donepezil 73591858194 Laila Dinaneftali Aguirreil PA-C DONEPEZIL HCL 23 MG TABS Take 1 tablet by mouth once a day 04/11 donepezil 81995564345 Elva Underwood RN, BSN DONEPEZIL HCL 10 MG TABS Take 1 tablet by mouth once a day 04/11 donepezil 43370849702 Narendra Ricardo MD DONEPEZIL HCL 23 MG TABS Take 1 tablet by mouth once a day 04/11 donepezil 35162671021 Narendra Ricardo MD QUETIAPINE FUMARATE 25 MG TABS take 1 tab by mouth at bedtime 11/13 quetiapine 28629014612 Laila Larkin PA-C VALSARTAN twice a day 10/09 DIOVAN Laila Larkin PA-C ASPIRIN 325 MG TABS once a day 10/09 aspirin 89100568861 Laila Larkin PA-C HYDROCHLOROTHIAZIDE 25 MG TABS once a day 10/09 hydrochlorothiazi de 41470990707 Laila Aguirreil PA-C TEMAZEPAM 30 MG CAPS Bedtime 10/09 temazepam 39821216527 Laila Larkin PA-C HYDROCODONE-ACETAMIN OPHEN 5-325 MG TABS every six hours as needed 10/09 hydrocodone-aceta minophen 79120350167 Laila Aguirreil PA-C POTASSIUM CHLORIDE ER 10 MEQ CR-CAPS twice a day 10/09 potassium chloride 49386342748 Laila Aguirreil PA-C DIAZEPAM 5 MG TABS 1 tablet by mouth 07/23 diazepam 92177448548 Laila Aguirreil PA-C METFORMIN HCL 500 MG TABS 10/09 metformin 43559253839 Laila Aguirreil PA-C FLUTICASONE PROPIONATE HFA 10/09 FLOVENT HFA [facility] THIAMINE HCL once a day 10/09 THIAMINE [facility] INSULIN ISOPHANE twice a day 10/09 HUMAN Laila Dina Trae NEAL TIOTROPIUM BROMIDE MONOHYDRATE once a day 10/09 SPIRIVA HANDIHALER [facility] SENNOSIDES 8.6 MG TABS twice a day as needed 10/09 SENNOSIDES [facility] POTASSIUM CHLORIDE ER 10 MEQ CR-TABS 10/09 potassium chloride 68500874313 [facility] ÁNGEL ALBUTEROL SULFATE HFA 108 (90 Base) MCG/ACT AERS every four hours as needed 10/09 albuterol sulfate 37075965616 [facility] CALCIUM/C/D 500-10-250 MG-MG-UNIT CHEW calcium carbonate 81245594432 [facility] Dina Cherjoseak ÁNGEL VITAMIN D3 25 MCG (1000 UT) TABS cholecalciferol (vitamin d3) 99028791083 [facility] Dina Cherjoseak ÁNGEL TRELEGY ELLIPTA 200-62.5-25 MCG/ACT AEPB fluticasone-umec l idin-vilanter 93444891807 [facility] DIAZEPAM 5 MG TABS 1 tablet by mouth 07/23 diazepam 31713837693 Narendra Ricardo MD SENNOSIDES 8.6 MG TABS twice a day as needed 10/09 SENNOSIDES Narendra Ricardo MD BISACODYL 10 MG SUPP once a day as needed 04/11 bisacodyl 89008986739 Narendra Ricardo MD VALSARTAN twice a day 10/09 DIOVAN Narendra Ricardo MD VITAMIN B-12 500 MCG TABS once a day cyanocobalamin (vitamin b-12) 23013988514 Narendra Ricardo MD LEVOFLOXACIN 500 MG TABS null 04/11 levofloxacin 43307030220 Narendra Ricardo MD HYDROCHLOROTHIAZIDE 25 MG TABS once a day hydrochlorothiaz i de 93434612139 Narendra Ricardo MD POTASSIUM CHLORIDE ER 10 MEQ CR-CAPS twice a day 09/17 potassium chloride 63133635493 Narendra Ricardo MD TIOTROPIUM BROMIDE MONOHYDRATE once a day 10/09 SPIRIVA HANDIHALER Narendra Ricardo MD ASPIRIN 325 MG TABS once a day 10/09 aspirin 23303093211 Narendra Ricardo MD GLIPIZIDE 10 MG TABS once a day 04/11 glipizide 83638817210 Narendra Ricardo MD CO Q-10 300 MG CAPS once a day coenzyme q10 2322 9845817 Narendra Ricardo MD IRBESARTAN 300 MG TABS twice a day irbesartan 68550834851 Narendra Ricardo MD THIAMINE HCL once a day 10/09 THIAMINE Narendra Ricardo MD DONEPEZIL HCL 5 MG TABS 04/11 donepezil 79565221983 Narendra Ricardo MD NYSTATIN 317503 UNIT/GM CREA 2-3X/Day 04/11 nystatin 47675620295 Narendra Ricardo MD CLONIDINE HCL 0.3 MG TABS three times a day 04/11 clonidine hcl 20539976633 Narendra Ricardo MD ALBUTEROL SULFATE HFA 108 (90 Base) MCG/ACT AERS every four hours as needed 10/09 albuterol sulfate 89273222464 Narendra Ricardo MD FUROSEMIDE 20 MG TABS once a day 04/11 furosemide 23223994507 Narendra Ricardo MD CLOPIDOGREL BISULFATE 75 MG TABS once a day 04/11 clopidogrel 01717958393 Narendra Ricardo MD INSULIN ISOPHANE twice a day 10/09 HUMAN Narendra Ricardo MD TEMAZEPAM 30 MG CAPS Bedtime 10/09 temazepam 02954887547 Narendra Ricardo MD NAPROXEN SODIUM 220 MG TABS twice a day 04/11 naproxen sodium 30706117707 Narendra Ricardo MD BUMETANIDE 0.5 MG TABS twice a day 04/11 bumetanide 50841298214 Narendra Ricardo MD HYDROCODONE-ACETAMIN OPHEN 5-325 MG TABS every six hours as needed 10/09 hydrocodone-aceta minophen 69898140789 Narendra Ricardo MD WARFARIN SODIUM 1 MG TABS once a day 04/11 warfarin 16095208809 Narendra Ricardo MD FLUTICASONE PROPIONATE HFA 10/09 FLOVENT HFA Narendra Ricardo MD HYDROCHLOROTHIAZIDE 25 MG TABS once a day 10/09 hydrochlorothiazi de 20030658995 Narendra Ricardo MD DONEPEZIL HCL 10 MG TABS Take 1 tablet by mouth once a day 04/11 donepezil 51334511877 Narendra Ricardo MD DONEPEZIL HCL 5 MG TABS 04/11 donepezil 08811419986 Narendra Ricardo MD METFORMIN HCL 500 MG TABS 10/09 metformin 88494803960 Narendra Ricardo MD LANTUS SOLOSTAR 100 UNIT/ML SOPN insulin glargine 57408323241 Samira Ricardo MD POTASSIUM CHLORIDE ER 10 MEQ CR-TABS 10/09 potassium chloride 19746853041 Narendra Ricardo MD FLUOXETINE HCL 10 MG CAPS fluoxetine 76289545955 Narendra Ricardo MD DIAZEPAM 5 MG TABS One tab po 30min before scan. July repeat x 1. 07/23 DIAZEPAM 08648109150 Narendra Ricardo MD WARFARIN SODIUM 1 MG TABS Daily 04/11 WARFARIN SODIUM 1 MG ORAL TABLET 90156095704 System Maintenance VALSARTAN (DIOVAN) 160 MG TAB, [...] Bedtime 04/11 TEMAZEPAM 30 MG ORAL CAPSULE 45709611376 System Maintenance SENNOSIDES 8.6 MG TABS Twice A Day as needed 04/11 SENNOSIDES, RETIREMENT 8.6 MG ORAL TABLET 17301370062 System Maintenance POTASSIUM CHLORIDE ER 10 MEQ CR-CAPS Twice A Day 09/17 POTASSIUM CHLORIDE 10 MEQ EXTENDED RELEASE ORAL CAPSULE 79752220923 System Maintenance NYSTATIN 824981 UNIT/GM CREA 2-3X/Day 09/17 NYSTATIN 470690 UNT/ML TOPICAL CREAM 13613796737 System Maintenance NAPROXEN SODIUM 220 MG TABS Twice A Day 09/17 NAPROXEN SODIUM 220 MG ORAL TABLET 06320035152 System Maintenance LEVOFLOXACIN 500 MG TABS null 04/11 LEVOFLOXACIN 500 MG ORAL TABLET 01952553902 System Maintenance IRBESARTAN 300 MG TABS Twice A Day 04/11 IRBESARTAN 300 MG ORAL TABLET 23914221884 System Maintenance INSULIN ISOPHANE (HUMAN) (NOVOLIN N RELION) RELION INJ, 15-25 UNIT SUBCUTANEOUSL Twice A Day 04/11 INSULIN HUMAN, ISOPHANE 100 UNT/ML INJECTABLE SUSPENSION System Maintenance HYDROCHLOROTHIAZIDE 25 MG TABS Daily 04/11 HYDROCHLOROTHIAZI DE 25 MG ORAL TABLET 73903276841 System Maintenance HYDROCHLOROTHIAZIDE 25 MG TABS Daily 04/11 HYDROCHLOROTHIAZI DE 25 MG ORAL TABLET 44987431056 System Maintenance GLIPIZIDE 10 MG TABS Daily 04/11 GLIPIZIDE 10 MG ORAL TABLET 99575113758 System Maintenance FUROSEMIDE 20 MG TABS Daily 04/11 FUROSEMIDE 20 MG ORAL TABLET 43882777521 System Maintenance FLUTICASONE PROPIONATE HFA (FLOVENT HFA) 220 MCG/ACT AER 04/11 120 ACTUAT FLUTICASONE PROPIONATE 0.22 MG/ACTUAT METERED DOS System Maintenance B-12 500 MCG TABS Daily 04/11 VITAMIN B 12 0.5 MG ORAL TABLET 00559206559 System Maintenance CO Q-10 300 MG CAPS Daily 04/11 COENZYME Q10 300 MG ORAL CAPSULE 81037157218 System Maintenance CLOPIDOGREL BISULFATE 75 MG TABS Daily 04/11 CLOPIDOGREL 75 MG ORAL TABLET 82425389300 System Maintenance CLONIDINE HCL 0.3 MG TABS Three Times A Day 04/11 CLONIDINE HYDROCHLORIDE 0.3 MG ORAL TABLET 03272683242 System Maintenance BUMETANIDE 0.5 MG TABS Twice A Day 09/17 BUMETANIDE 0.5 MG ORAL TABLET 85221506131 System Maintenance BISACODYL LAXATIVE 10 MG SUPP Daily as needed 04/11 BISACODYL 10 MG RECTAL SUPPOSITORY 90687603056 System Maintenance ASPIRIN 325 MG TABS Daily 04/11 ASPIRIN 325 MG ORAL TABLET 31345217354 System Maintenance ALBUTEROL SULFATE HFA 108 (90 Base) MCG/ACT AERS Every 4 Hours as needed 04/11 200 ACTUAT ALBUTEROL 0.09 MG/ACTUAT METERED DOSE INHALER 41535420854 System Maintenance HYDROCODONE-ACETAMIN OPHEN 5-325 MG TABS Every 6 Hours as needed 04/11 ACETAMINOPHEN 325 MG / HYDROCODONE BITARTRATE 5 MG ORAL TABL 50950471755 System Maintenance Medications Administered No information available. 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 Replaced Document: (P) T4, F REE, TSH, VITAMIN B12 B-12 * pg/mL Cobalamin (Vitamin B12) [Mass/volume] in Serum or Plasma TSH 1.75 u[iU]/mL 0.40-4.50 N Thyrotropi n [Units/volume] in Serum or Plasma FRT4 1.0 0.8-1.8 N FREE T4 Internal Other: Verbal Autho rization/Emergency Contact - OBS VERBAL_EMER DONE Verbal authorization and emergency contact External Correspondence: [facility] Directive/Healthcare power of criminal attorney - OBS AD DISCUSSED Advanced care planning discussed Advanced directive discussed w/member/caregive r; Patient received counseling regarding palliation - symptom management - end of life decisions Office Visit: Office Visit f ax DEMENTIA2 Assessment of cognition performed and results reviewed. Total score [MMSE] [id number] Mild Total scor e [MoCA] MMSE SCORE [...] Detail Appointment 01:00 PM Laila Larkin PA-C, [address] [place] [address], [address], [place], [address], Pending order Follow up DOUGLAS Pending order [...] Name Date Entry Date ORDERS Follow up [facility]-[id number] Documentation of current medicatio ns [facility]-[id number] Documentation of current medicatio ns ORDERS Patient Instructions ORDERS Patient Instructions LOINC 05282-2 MMSE ORDERS Follow up DOUGLAS ORDERS Patient Instructions SCT-[id number] Documentation of current medicatio ns ORDERS Follow up LOINC 11227-5 MMSE ORDERS Obtain outside records 04/11 ORDERS Follow up DOUGLAS in clinic or telemedicine 2 LOINC 26012-8 MMSE ORDERS Patient Instructions SCT-[id number] Documentation of current medicatio ns ORDERS Patient Instructions ORDERS Occupational Therapy SCT-[id number] Documentation of current medicatio ns CPT-83033 Free Service ORDERS Follow up telemedicine 11/28 ORDERS Neuropsychology Evaluation 2 ORDERS Patient Instructions [facility]-[id number] Documentation of current medicatio ns ORDERS Follow up ORDERS Patient Instructions ORDERS Patient Instructions SCT-[id number] Documentation of current medicatio ns ORDERS Follow up DOUGLAS SCT-[id number] Consult SCT-[id number] Documentation of current medicatio ns ORDERS Patient Instructions ORDERS Follow up CPT-09691 Npsy Interp/Rpt by Provider - 1st hour 20 29/03/06 ORDERS Neuropsych Testing 0 CPT-04231 Npsy Interview w/Provider - 1st hour 2018 CPT-76103 Npsy Interp/Rpt by Provider - 1st hour 20 26/02/04 CPT-80149 Npsy Interp/Rpt by Provider - 2 hours 201 11/20/03 CPT-79675 Npsy Test by Tech (2+ Tests) - 1st 30 min CPT-27124 Npsy Test by Tech (2+ Tests) - 1.5 hours CPT-67988 MRI Brain W/O [id number] MRI-Brain W/O [facility]-[id number] Documentation of current medicatio ns ORDERS Patient [...]
--- OUTSIDE RECORDS SUMMARY | 2024-09-21 18:41 | XMS_ITS | Clinical Summary ---
Author Organization [facility] Address [address] [place] [address] Care Team Providers Care Application Chemist Name Role Phone Zahira Feldman MD Unavailable + [facility] Unavailable Darlene Mendoza MD Primary Care Provider [phone] Allergies Active Allergy Reactions Criticality Noted Date [...] in an abandoned building, in an overnight custodial, or couch-surfing.) Yes 12/10/2023 Are you worried [...] on file Legal Sex Female 3:23 AM SITECORE DEVELOPER Gender Identity Not on file Sexual Orientation [...] 2024 08/26/2022, 05/03/2021, 11/04/2017 COLONOSCOPY 04/15/2024 04/15/2019, 0208/2019, 11/28/2009 COLORECTAL CANCER SCREENING 04/15/2024 BMP 06/10/2024 12/11/2023, 100 04/2023, 12/09/2023, Additional history exists INFLUENZA VACCINE (#1) 2024 , 11/15/2022, 11/15/2022, Additional history exists A1C 12/05/2024 06/04/2024, 10/0 03/2023, 07/14/2022, Additional history exists ALT 12/08/2024 [...] 12/25/2018 TSH W/FREE T4 REFLEX Completed 04/07/2020 HPV VACCINE Aged Out No longer eligi [...] Routine 08/20/2024 7:50 AM CDT Disorientation, unspecified CBC WITH PLATELETS Routine 06/04/2024 10 :51 AM CDT Encounter for general adult medical examination without abnormal findings Other specified counseling Age-related physical debility Atherosclerotic heart disease of [place] coronary artery without angina pectoris Unspecified atrial [...] Age-related physical debility Atherosclerotic heart disease of [place] coronary artery without angina pectoris Unspecified atrial [...] FREE T4 REFLEX STAT 04/07/2020 1:59 PM SITECORE DEVELOPER COLONOSCOPY Routine 04/15/2019 11:47 AM SITECORE DEVELOPER OCCULT BLOOD STOOL STAT 04/12/2019 3: 27 PM SITECORE DEVELOPER LIPID PROFILE Timed 04/20/2010 6:16 AM SITECORE DEVELOPER EYE EXAM - HIM SCAN 12/18/2005 1 2:00 AM CDT C MAMMOGRAM, SCREENING Routine 04/08/2003 1:03 PM SITECORE DEVELOPER Screening Mamm-Mailg Neopl-Other C FOOT EXAM Routine 03/30/2003 5:13 PM SITECORE DEVELOPER Diabetes Uncompl Adult-Type Ii from Last 3 Months or Most Recently Relevant to Health Maintenance Results * Trip Charge - LAB ONLY (09/03/2024 6:35 AM CDT) Other TOPOGRAPHY UNKNOWN / Unknown Billing only / Unknown 09/03/2024 6:35 AM CDT 09/03/2024 10:39 AM CDT us Teresa Talbot PA-C LAB CHARGE PERFORMABLE S Final Result [facility] [address] * (ABNORMAL) Basic Metabolic Panel No Glucose (OUTREACH) (09/03/2024 6:35 AM CDT) Sodium 138 135 - 145 mmol/L 09/03/2024 [...] 6:35 AM CDT 09/03/2024 10:39 AM CDT Teresa Talbot PA-C LAB - BLOOD ORDERABLES Final Result [facility] [place] [facility] [address] [facility], [address] [place] [address], [facility] * Glucose (OUTREACH) (09/03/2024 6:35 AM CDT) Glucose 71 70 - 99 mg/dL 09/03/2024 12:23 PM CDT [facility] Blood STRUCTURE OF RIGHT UPPER LIMB / Unknown Venipuncture / Unknown 09/03/2024 6:35 AM CDT 09/03/2024 10:39 AM CDT us Teresa Talbot PA-C LAB - BLOOD ORDERABLES Final Result [facility] [place] [facility] [address] [facility] [address], [address] [place] [address], [facility] * (ABNORMAL) UA with Microscopic (08/20/2024 7:50 [...] 08/20/2024 11:37 AM CDT [facility] Specific [place] Urine 1.009 1.003 - 1.035 08/20/2024 11:37 [...] - URINE ORDERABLES Final Result [facility] [place] [facility] [address] [facility], [address] * Urine Culture (08/20/2024 7:50 AM CDT) Culture 10,000-50,000 CFU/mL Mixture of urogenital suellen 08/21/2024 8:29 AM CDT [facility] Urine URINE SPECIMEN OBTAINED BY CLEAN CATCH PROCEDURE / Unknown Non-blood Collection / Unknown 08/20/2024 7:50 AM CDT 08/20/2024 10:34 AM CDT Teresa Talbot PA-C LAB - MICRO GENERAL OR DERABLES Final Result [facility] Lab [address] [facility], [address] * (ABNORMAL) Hemoglobin A1c (06/04/2024 10:51 [...] CDT 06/04/2024 2:32 PM CDT us Teresa J Antione PA-C LAB - BLOOD ORDERABLES Final Result [facility] [place] [facility] [address] [facility], [address] [place], [place] [address] * (ABNORMAL) CBC with platelets [...] - BLOOD ORDERABLES Final Result [facility] [place] [facility] [address] [facility], [address] [place] [address] * (ABNORMAL) Basic metabolic panel (12/11/2023 7:08 AM CDT) Pathologist [facility] Sodium 137 135 - 145 mmol/L 12/11/2023 [...] - BLOOD ORDERABLES Fi nal Result LABORATORY [facility] [address] [facility] Lab (1st floor, no room number) [place] [address], [facility] * Hepatic function panel (12/09/2023 10:08 PM CDT) Protein Total 6.8 6.4 - 8.3 g/dL 12/09/2023 11:01 PM CDT LABORATORY Albumin 4.0 3.5 - 5.2 g/dL 12/09/2023 11:01 PM CDT LABORATORY Bilirubin Total 0.4 <=1.2 mg/dL 12/09/2023 11:01 PM CDT LABORATORY Alkaline Phosphatase 84 40 - 150 U/L 12/09/2023 11:01 PM CDT LABORATORY AST 27 0 - 45 U/L 12/09/2023 11:01 PM CDT LABORATORY ALT 31 0 - 50 U/L 12/09/2023 11:01 PM CDT LABORATORY Bilirubin Direct <0.20 0.00 - 0.30 mg/dL 12/09/2023 11:01 PM CDT LABORATORY Blood BLOOD SPECIMEN / Unknown Venipuncture / Unknown 12/09/2023 10:08 PM CDT 12/09/2023 10:26 PM CDT us Austin Reardon MD LAB - BLOOD ORDERABLES Final R esult LABORATORY [facility] [address] Lab (1st floor, no room number) [place] [address], [facility] * TSH with free T4 reflex (04/07/2020 1:59 PM SITECORE DEVELOPER) TSH 1.10 0.40 - 4.00 mU/L 04/07/2020 2:42 PM SITECORE DEVELOPER [facility] Blood specimen (specimen) 04/07/2020 1:59 PM SITECORE DEVELOPER 04/07/2020 2:11 PM SITECORE DEVELOPER us Austin Mccarty PA-C LAB - BLOOD ORDERABLES Final Re sult [facility] [address] [place] [address], [facility] [phone] * COLONOSCOPY (04/15/2019 11:47 AM SITECORE DEVELOPER) COLONOSCOPY [facility] Patient Name: Alyx Sarmiento Procedure Date: 04/15/2019 [...] # [id number], [place] # [id number], SN # [id number] was introduced through the anus and advanced [...] Interventional Radiology Procedure Code(s): --- Professional --- 34064, Colonoscopy, flexible; diagnostic, including collection of specimen(s) by brushing or washing, when performed (separate procedure) CPT copyright 2018 [employer]. All rights reserved. The codes documented in this report are preliminary and upon manager entry review may be revised to meet current [...] PM RADIOLOGY RESULTS 04/15/2019 11:4 7 AM SITECORE DEVELOPER us Dina Johnson MD PROCEDURES Final R esult RADIOLOGY RESULTS * (ABNORMAL) Occult blood stool (04/12/2019 3:27 PM SITECORE DEVELOPER) Occult Blood Positive(A ) NEG^Negati ve 04/12/2019 3:46 PM SITECORE DEVELOPER [facility] Comment: Called to AGUSTIN DELANEY (LIBIA) ON 04.12.19 AT 1546 BY KV 04/12/2019 3:27 PM SITECORE DEVELOPER 04/12/2019 3:40 PM SITECORE DEVELOPER us Arley Ham MD LAB - STOOLS ORDERABLES Edited Result - Final [facility] [place] [address], [facility] [phone] * (ABNORMAL) Lipid panel (04/20/2010 6:16 AM SITECORE DEVELOPER) Cholesterol 160 0 - 200 mg/dL MISYS [...] 0.0 - 5.0 MISYS 04/20/2010 6:16 AM SITECORE DEVELOPER 04/20/2010 7:00 AM SITECORE DEVELOPER us Pilo Ortiz DO LAB - BLOOD ORDERABLES Fin al Result [facility] * EYE EXAM - HIM SCAN (12/18/2005 12:00 AM CDT) 12/18/2005 us Provider Outside OTHER Final Result * MAMMOGRAM, SCREENING (04/08/2003 1:03 PM SITECORE DEVELOPER) MAMMOGRAM Anatomical Region Laterality Modality Mammography Impressions 04/08/2003 1:03 PM SITECORE DEVELOPER RADIOLOGIST'S INTERPRETATION: Breast parenchyma: fatty/mild densities IMAGING IMPRESSION: (CATEGORY-1) NEGATIVE Radiologist: Spencer Frye Apr Electronically filed by Kathleen Harrington 04/13/2003 2:52 PM us Petr Lindquist MD SPECIAL IMAGING STUDIES Final R esult from Last 3 Months or Most Recently Relevant to Health Maintenance Insurance [facility] [address] [place] [id number] [facility] MEDICARE ADVANTAGE [facility] MEDICARE ADVANTAGE [facility] MEDICARE ADVANTAGE Advance Directives For more information, please contact: [phone] Documents on File Type Date Recorded Patient Tobacco Educator Expl anation Advance Directives and Living Will [...] Gallegos Grandchild First Alternate Health Care Agent [email or web address] Care Teams Application Chemist Relationship Specialty Start Date End Date Darlene Mendoza MD [facility] [address] [place] [address] PCP - General Family Medicine 07/19/22 Zahira Feldman MD [address] [place] [address] Ophthalmology 10/13/17 [facility], [address] [address] 07/17/22 Krysta Bhatti- [facility] 07/15/22
[2024-09-21 18:45] VITALS: PULSE 66; RESP 22; O2SAT 92
--- OUTSIDE RECORDS SUMMARY | 2024-09-21 18:49 | XMS_ITS | CCD ---
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 Name Role Phone Teresa Vivas Primary Care Provider Un available Unavailable Chronic Care Management Unavaila ble Summary Purpose DataExchange Insurance Providers Payer name Policy type / Coverage type Covered constitution party ID Effective Begin Date Effective End Date [employer] [place] H[place] Medicare Risk [id number] Unknown Un known Family history Mother Diagnosis Age At Onset Stroke Unknown Social History Social History Element Codes Description Effec tive Dates Marital status Unknown 04/13/2024 Marital status Unknown 04/13/2024 Living arrangements Unknown Assisted Living 04/[address]: 6642887 Former smoker 04/[address]: 6080786 Former smoker 04/[address]: 393529858 No Alcohol Consum ption 04/13/[address]: 184047 Currently drin ks alcohol 04/13/2024 Sexually Active? [...] No Inactive Date A ctive SIMVASTATIN RxNorm: 11833 04/13/2024 No Inactive D ate Active Penicillin Unknown 04/13/2024 No Inactive Date A ctive CLOPIDOGREL Unknown 03/23/2024 No Inactive Date Active naproxen RxNorm: 7258 04/13/2024 No Inactive Date Active levofloxacin RxNorm: 07357 03/23/2024 No Inactive Date Active Levemir Unknown 03/23/2024 No Inactive Date Ac tive metformin RxNorm: 869747 04/13/2024 No Inactive Da te Active ESTROGENS Unknown 03/23/2024 No Inactive Date Ac tive Atenolol RxNorm: 1202 04/13/2024 No Inactive Date Active metoprolol succinate RxNorm: 141756 03/23/2024 No Inactive Date Active Januvia RxNorm: 759949 04/13/2024 No Inactive Da te Active furosemide RxNorm: 4603 03/23/2024 No Inactive Balaji e Active azithromycin RxNorm: 83315 04/13/2024 No Inactive Date Active losartan RxNorm: 666958 04/13/2024 No Inactive Da te Active NSAIDS Unknown 03/23/2024 No Inactive Date Ac tive Amlodipine RxNorm: 828118 04/13/2024 No Inactive D ate Active LISINOPRIL RxNorm: 33017 04/13/2024 No Inactive Da te Active PIOGLITAZONE DERIVATIVES Unknown 04/13/2024 No I nactive Date Active Problems Condition Codes Effective Dates Condition St atus Closed fracture of one rib w ith routine healing, unspecified laterality, subsequent encounter SNOMED CT: 79862098 ICD-10: S22.39XD ICD-9: V54.19 09/07/2024 Active Pneumonia due to infectious organism, unspecified laterality, unspecified part of lung SNOMED CT: 982431567 ICD-10: J18.9 ICD-9: 486 09/07/2024 Active Unsteady gait ICD-10: R26.81 ICD-9: 781.2 09/07/2024 Active Chronic heart failure with preserved ejection fraction ICD-10: I50.32 ICD-9: 428.9 08/31/2024 Active Chronic obstructive pulmonar y disease, unspecified COPD type ICD-10: J44.9 ICD-9: 496 08/31/2024 Active Primary hypertension ICD-10: I10 ICD-9: 401.9 08/31/2024 Active Type 2 diabetes mellitus without complication, unspecified whether skilled nursing insulin use ICD-10: E11.9 ICD-9: 250.00 08/31/2024 Active Urinary incontinence, unspecified type ICD-10: R32 ICD-9: 788.30 08/31/2024 Active Atrial fibrillation, unspecified type ICD-10: I48.91 ICD-9: 427.31 08/10/2024 Active Pressure injury of left buttock, stage 2 ICD-10: L89.322 ICD-9: 707.05 08/10/2024 Active Vascular dementia, unspecifi ed severity, without behavioral disturbance, psychotic disturbance, mood disturbance, and anxiety ICD-10: F01.50 08/10/2024 Active Acute cystitis without hematuria ICD-10: N30.00 ICD-9: 595.0 08/10/2024 Resolved Iron deficiency anemia, unspecified iron deficiency anemia type ICD-10: D50.9 ICD-9: 280.9 06/29/2024 Active ACP (advance care planning) SNOMED CT: 3 84407256 ICD-10: Z71.89 ICD-9: V65.49 06/01/2024 Active Adult general medical exam SNOMED CT: 30 4766380 ICD-10: Z00.00 ICD-9: V70.9 06/01/2024 Active Atherosclerosis of coronary artery of [place] heart without angina pectoris, unspecified vessel or lesion type ICD-10: I25.10 ICD-9: 414.01 06/01/2024 Active 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 ICD-9: 311 06/01/[address]: 927836723 ICD-10: R54 ICD-9: 797 06/01/2024 Active Mixed [...] fracture of L1 vertebra, sequela SNOMED CT: 029076182 ICD-10: S32.010S ICD-9: 905.1 04/13/2024 Active Dementia in other diseases classified elsewhere, unspecified severity, without behavioral disturbance, psychotic disturbance, mood disturbance, and anxiety ICD-10: F02.80 04/13/[address]: 062588174 ICD-10: K57.90 ICD-9: 562.10 04/13/2024 Active History of breast cancer SNOMED CT: 4290 05612 ICD-10: Z85.3 ICD-9: V10.3 04/13/2024 Active History of melanoma SNOMED CT: 985624466 ICD-10: Z85.820 ICD-9: V10.82 04/13/2024 Active History of TIA (transient ischemic attack) SNOMED CT: 584532964 ICD-10: Z86.73 ICD-9: V12.54 04/13/2024 Active Hyperlipidemia, unspecified hyperlipidemia type SNOMED CT: 70435612 ICD-10: E78.5 ICD-9: 272.4 04/13/2024 Active Statin intolerance SNOMED CT: 282959944 ICD-10: Z78.9 ICD-9: 995.27 04/13/2024 Active Medications Medication Codes Instructions Start Date Stop Date Status Fill Instructions carvedilol 6.25 mg tablet RxNorm: 628113 1 Tablet(s) Oral BID 09/21/19 25 026 Active *URGENT REQUEST* PLEASE SEND REFILLS FOR CYCLE FILL. THANK YOU! oxybutynin chloride ER 5 mg tablet,extended release 24 hr RxNorm: 621402 1 Tablet(s) Oral QD 09/16/19 25 026 Active *URGENT REQUEST* PLEASE SEND REFILLS FOR CYCLE FILL. THANK YOU! oxycodone 5 mg tablet RxNorm: 3900208 Take 1/2 Tablet(s) Oral every 6 hours as needed 09/08/19 No Stop Date Active acetaminophen 500 mg tablet RxNorm: 019185 Take 2 Tablet(s) Oral every 6 hours as needed 09/08/19 No Stop Date Active lidocaine 4 % topical patch RxNorm: 7359637 Apply 1 Patch Topical QD on for 12 hours, off for 12 hours 09/08/19 25 025 Inactive sennosides 8.6 mg-docusate sodium 50 mg tablet RxNorm: 589049 Take 1 Tablet(s) Oral QD as needed 09/08/19 No Stop Date Active oxybutynin chloride ER 5 mg tablet,extended release 24 hr RxNorm: 527013 Take 1 Tablet(s) Oral QD 09/08/19 25 025 Inactive doxycycline hyclate 100 mg tablet RxNorm: 9647853 Take 1 Tablet(s) Oral BID 09/08/19 25 025 Inactive Calcium Antacid 200 mg (as calcium carbonate 500 mg) chewable tablet RxNorm: 230685 CHEW & SWALLOW 1 TABLET ORALLY DAILY 09/07/19 025 Inactive *URGENT REQUEST* PLEASE SEND REFILLS FOR CYCLE FILL. THANK YOU! hydrochlorothiazide 50 mg tablet RxNorm: 110080 1 TABLET ORALLY EVERY MORNING (DX: ESSENTIAL HYPERTENSION) 09/07/19 25 026 Active *URGENT REQUEST* PLEASE SEND REFILLS FOR CYCLE FILL. THANK YOU! albuterol sulfate 2.5 mg/3 mL (0.083 %) solution for nebulization RxNorm: 856342 Take 3 Milliliter(s) Inhalation BID and BID PRN for shortness of breath/cough. 09/01/19 25 026 Active furosemide 40 mg tablet RxNorm: 415787 Take 1 Tablet(s) Oral QD 08/20/19 25 025 Inactive furosemide 40 mg tablet RxNorm: 093468 Take 1 Tablet(s) Oral QD 08/20/19 25 025 Inactive Contour Next EZ Meter RxNorm: USE TO JENIFER T BLOOD GLUCOSE DAILY (DX: DIABETES TYPE 2) 08/18/19 25 025 Inactive Contour Next Test Strips RxNorm: Use 1 strip BID 08/17/19 25 026 Active carvedilol 6.25 mg tablet RxNorm: 949408 Take 1 Tablet(s) Oral BID 08/10/19 25 025 Inactive nystatin 100,000 unit/gram topical powder RxNorm: 125654 Gram(s) Topical apply to affected area BID 08/10/19 25 025 Inactive Lanlandon Monteiroostar U-100 Insulin 100 unit/mL (3 mL) subcutaneous pen RxNorm: 434921 Unit(s) Subcutaneous inject 14 units every am 08/07/19 No Stop Date Active hydrochlorothiazide 50 mg tablet RxNorm: 765851 Take 1 Tablet(s) Oral QD 08/07/19 25 025 Inactive Vitron-C 65 mg iron-125 mg tablet,delayed release RxNorm: 6715377 1 Tablet(s) Oral QOD every other day 07/23/19 025 Inactive *URGENT REQUEST* PLEASE SEND REFILLS FOR CYCLE FILL. THANK YOU! Oyster Shell Calcium-500 500 mg (as carbonate 1,250 mg) tablet RxNorm: 548100 1 TABLET ORALLY DAILY FOR BONE HEALTH 07/09/19 026 Active PLEASE SEND REFILLS.PHARMA CY PLEASE PROFILE FOR FUTURE USE-[facility] Co Q-10 200 mg capsule RxNorm: 846238 1 CAPSULE ORALLY DAILY W/ 100MG CAP FOR A TOTAL DOSE OF 300MG (DX: SUPPLEMENT) 07/09/19 25 026 Active PLEASE SEND REFILLS.PHARMA CY PLEASE PROFILE FOR FUTURE USE-[facility] Trelegy Ellipta 200 mcg-62.5 mcg-25 mcg powder for inhalation RxNorm: 1901163 INHALE 1 PUFF INTO THE LUNGS EVERY 24 HOURS (DX: CHRONIC OBSTRUCTIVE PULMONARY DISEASE) 07/09/19 25 026 Active PLEASE SEND REFILLS.PHARMA CY PLEASE PROFILE FOR FUTURE USE-[facility] fluoxetine 10 mg capsule RxNorm: 489042 1 CAPSULE ORALLY DAILY (DX: DEPRESSION) (DX: ANXIETY) 07/09/19 25 026 Active PLEASE SEND REFILLS.PHARMA CY PLEASE PROFILE FOR FUTURE USE-[facility] irbesartan 150 mg tablet RxNorm: 651611 1 TABLET ORALLY 2 TIMES DAILY (DX: HYPERTENSION) 07/09/19 25 026 Active PLEASE SEND REFILLS.PHARMA CY PLEASE PROFILE FOR FUTURE USE-[facility] cholecalciferol (vitamin D3) 25 mcg (1,000 unit) tablet RxNorm: 698500 1 TABLET ORALLY DAILY (DX: VITAMIN D DEFICIENCY) 07/09/19 25 026 Active PLEASE SEND REFILLS.PHARMA CY PLEASE PROFILE FOR FUTURE USE-[facility] quetiapine 25 mg tablet RxNorm: 853407 1 TABLET ORALLY AT BEDTIME (DX: ANXIETY) 07/09/19 25 026 Active PLEASE SEND REFILLS.PHARMA CY PLEASE PROFILE FOR FUTURE USE-[facility] coenzyme Q10 100 mg capsule RxNorm: 817944 1 CAPSULE ORALLY DAILY W/ 200MG CAP FOR A TOTAL DOSE OF 300MG (DX: SUPPLEMENT) 07/09/19 25 026 Active PLEASE SEND REFILLS.PHARMA CY PLEASE PROFILE FOR FUTURE USE-[facility] donepezil 10 mg tablet RxNorm: 857438 1 TABLET ORALLY AT BEDTIME (DX: DEMENTIA) 07/09/19 25 026 Active PLEASE SEND REFILLS.PHARMA CY PLEASE PROFILE FOR FUTURE USE-[facility] alcohol swabs RxNorm: 304987 USE DIRECTED 07/09/19 25 026 Active PLEASE SEND REFILLS.PHARMA CY PLEASE PROFILE FOR FUTURE USE-[facility] Vitron-C 65 mg iron-125 mg tablet,delayed release RxNorm: 3212828 1 Tablet(s) Oral QOD every other day 07/09/19 25 025 Inactive PLEASE SEND REFILLS.PHARMA CY PLEASE PROFILE FOR FUTURE USE-[facility] oxybutynin chloride ER 10 mg tablet,extended release 24 hr RxNorm: 650551 1 TAB ORALLY EVERY EVENING FOR BLADDER SPASMS 07/09/19 25 025 Inactive PLEASE SEND REFILLS.PHARMA CY PLEASE PROFILE FOR FUTURE USE-[facility] cyanocobalamin (vit B-12) 500 mcg tablet RxNorm: 491116 1 TABLET ORALLY DAILY (DX: ANEMIA) 07/09/19 25 025 Inactive PLEASE SEND REFILLS.PHARMA CY PLEASE PROFILE FOR FUTURE USE-[facility] hydrochlorothiazide 25 mg tablet RxNorm: 570418 1 TABLET ORALLY DAILY (DX: HYPERTENSION) 07/09/19 025 Inactive PLEASE SEND REFILLS.PHARMA CY PLEASE PROFILE FOR FUTURE USE-[facility] Contour Next EZ Meter RxNorm: USE TO JENIFER T BLOOD GLUCOSE DAILY (DX: DIABETES TYPE 2) 07/09/19 025 Inactive PLEASE SEND REFILLS.PHARMA CY PLEASE PROFILE FOR FUTURE USE-[facility] Alejandra Protect (zinc oxide) 12 % topical cream RxNorm: 273715 APPLY TO RIGHT BUTTOCK 2 TIMES DAILY;APPLY TO RIGHT BUTTOCK NEEDED WITH SOILING 06/12/19 026 Active albuterol sulfate HFA 90 mcg/actuation aerosol inhaler RxNorm: 1801961 Inhale 2 Puff(s) Inhalation Q4H every four hours as needed 06/01/19 25 025 Inactive Alejandra Protect (zinc oxide) 12 % topical cream RxNorm: 767914 cream Topical apply to right buttocks BID and PRN with soiling 06/01/19 025 Inactive Lantus Solostar U-100 Insulin 100 unit/mL (3 mL) subcutaneous pen RxNorm: 231893 Unit(s) Subcutaneous prime en with 2 units, then inject 8 units SQ QD at bedtime 05/18/19 025 Inactive potassium chloride ER 10 mEq tablet,extended release RxNorm: 008866 Take 1 Tablet(s) Oral QD 04/12/19 25 No Stop Date Active fluoxetine 10 mg capsule RxNorm: 030821 Take 1 Capsule(s) Oral QD 04/12/19 025 Inactive hydrochlorothiazide 25 mg tablet RxNorm: 650153 Take 1 Tablet(s) Oral QD 04/12/19 025 Inactive Oyster Shell Calcium 500 mg (as calcium carbonate 1,250 mg) tablet RxNorm: 717096 Take 1 Tablet(s) Oral QD 04/12/19 025 Inactive Co Q-10 200 mg capsule RxNorm: 505681 Capsule(s) Oral take 1 cap po daily with 100mg tab to =300mg daily 04/12/19 25 025 Inactive Co Q-10 100 mg capsule RxNorm: 137365 Capsule(s) Oral take 1 cap daily along with 200mg tab to =300mg daily 04/12/19 025 Inactive quetiapine 25 mg tablet RxNorm: 569021 Take 1 Tablet(s) Oral QHS every night at bedtime 04/12/19 025 Inactive Vitamin D3 25 mcg (1,000 unit) tablet RxNorm: 188895 Take 1 Tablet(s) Oral QD 04/12/19 025 Inactive acetaminophen 500 mg tablet RxNorm: 221852 Take 2 Tablet(s) Oral TID as needed 04/12/19 025 Inactive donepezil 10 mg tablet RxNorm: 645941 Take 1 Tablet(s) Oral QHS every night at bedtime 04/12/19 025 Inactive cyanocobalamin (vit B-12) 500 mcg tablet RxNorm: 044371 Take 1 Tablet(s) Oral QD 04/12/19 025 Inactive oxybutynin chloride ER 10 mg tablet,extended release 24 hr RxNorm: 171317 Take 1 Tablet(s) Oral QPM every evening 04/12/19 025 Inactive irbesartan 150 mg tablet RxNorm: 226977 Take 1 Tablet(s) Oral BID 04/12/19 025 Inactive Trelegy Ellipta 200 mcg-62.5 mcg-25 mcg powder for inhalation RxNorm: 0155869 Inhale 1 Puff(s) Inhalation every 24 hours 04/12/19 025 Inactive Vitron-C 65 mg iron-125 mg tablet,delayed release RxNorm: 0053376 Take 1 Tablet(s) Oral QOD every other day 04/12/19 025 Inactive Eliquis 5 mg tablet RxNorm: 9603895 Take 1 Tablet(s) Oral BID 04/12/19 025 Inactive Lantus Solostar U-100 Insulin 100 unit/mL (3 mL) subcutaneous pen RxNorm: 514188 Unit(s) Subcutaneous prime en with 2 units, [...] data Instructions Comment Date Alyx resides at [facility] since about 2021. Previously lived independently in [place]. . Has one daughter Maggie who is involved in healthcare. PMH: History of breast cancer and melanoma, mixed dementia, depression, CAD, HLD, history of CVA/TIA, compression fx of L1 vertebrae, urinary incontinence, hearing loss, osteopeniaPrimary contact: Maggie Gallegos (Daughter)Code Status: DNR/SelectLab Schedule: Mar/SepSpecialists: [facility] (Q6M), Cardiology [facility] (MD Echo) 08/06/2024
--- OUTSIDE RECORDS SUMMARY | 2024-09-21 18:49 | XMS_ITS | CCD ---
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 Name Role Phone Teresa Vivas Primary Care Provider Un available Unavailable Chronic Care Management Unavaila ble Summary Purpose DataExchange Insurance Providers Payer name Policy type / Coverage type Covered democrat ID Effective Begin Date Effective End Date [place] [id number] Unknown Un known Family history Mother Diagnosis Age At Onset Stroke Unknown Social History Social History Element Codes Description Effec tive Dates Marital status Unknown 04/13/2024 Marital status Unknown 04/13/2024 Living arrangements Unknown Assisted Living 04/[address]: 0518476 Former smoker 04/[address]: 9363454 Former smoker 04/[address]: 155476185 No Alcohol Consum ption 04/13/[address]: 949108 Currently drin ks alcohol 04/13/2024 Sexually Active? [...] No Inactive Date A ctive SIMVASTATIN RxNorm: 75039 04/13/2024 No Inactive D ate Active Penicillin Unknown 04/13/2024 No Inactive Date A ctive CLOPIDOGREL Unknown 03/23/2024 No Inactive Date Active naproxen RxNorm: 7258 04/13/2024 No Inactive Date Active levofloxacin RxNorm: 08765 03/23/2024 No Inactive Date Active Levemir Unknown 03/23/2024 No Inactive Date Ac tive metformin RxNorm: 945697 04/13/2024 No Inactive Da te Active ESTROGENS Unknown 03/23/2024 No Inactive Date Ac tive Atenolol RxNorm: 1202 04/13/2024 No Inactive Date Active metoprolol succinate RxNorm: 148789 03/23/2024 No Inactive Date Active Januvia RxNorm: 264228 04/13/2024 No Inactive Da te Active furosemide RxNorm: 4603 03/23/2024 No Inactive Balaji e Active azithromycin RxNorm: 88443 04/13/2024 No Inactive Date Active losartan RxNorm: 582190 04/13/2024 No Inactive Da te Active NSAIDS Unknown 03/23/2024 No Inactive Date Ac tive Amlodipine RxNorm: 202870 04/13/2024 No Inactive D ate Active LISINOPRIL RxNorm: 27035 04/13/2024 No Inactive Da te Active PIOGLITAZONE [...] retirement insulin use ICD-10: E11.9 ICD-9: 250.00 08/31/2024 [...] ACP (advance care planning) SNOMED CT: 3 98341961 ICD-10: Z71.89 ICD-9: V65.49 06/01/2024 Active Adult general medical exam SNOMED CT: 30 0203048 ICD-10: Z00.00 ICD-9: V70.9 06/01/2024 Active Atherosclerosis of coronary artery of [place] heart without angina pectoris, unspecified vessel or lesion type ICD-10: I25.10 ICD-9: 414.01 06/01/2024 Active 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 ICD-9: 311 06/01/[address]: 479937022 ICD-10: R54 ICD-9: 797 06/01/2024 Active Mixed [...] fracture of L1 vertebra, sequela SNOMED CT: 678608919 ICD-10: S32.010S ICD-9: 905.1 04/13/2024 Active Dementia in other diseases classified elsewhere, unspecified severity, without behavioral disturbance, psychotic disturbance, mood disturbance, and anxiety ICD-10: F02.80 04/13/[address]: 985080899 ICD-10: K57.90 ICD-9: 562.10 04/13/2024 Active History of breast cancer SNOMED CT: 4290 00502 ICD-10: Z85.3 ICD-9: V10.3 04/13/2024 Active History of melanoma SNOMED CT: 869043211 ICD-10: Z85.820 ICD-9: V10.82 04/13/2024 Active History of TIA (transient ischemic attack) SNOMED CT: 834661568 ICD-10: Z86.73 ICD-9: V12.54 04/13/2024 Active Hyperlipidemia, unspecified hyperlipidemia type SNOMED CT: 92841392 ICD-10: E78.5 ICD-9: 272.4 04/13/2024 Active Statin intolerance SNOMED CT: 748042497 ICD-10: Z78.9 ICD-9: 995.27 04/13/2024 Active Medications Medication Codes Instructions Start Date Stop Date Status Fill Instructions Calcium Antacid 200 mg (as calcium carbonate 500 mg) chewable tablet RxNorm: 689856 CHEW & SWALLOW 1 TABLET ORALLY DAILY 09/07/19 25 025 Inactive *URGENT REQUEST* PLEASE SEND REFILLS FOR CYCLE FILL. THANK YOU! hydrochlorothiazide 50 mg tablet RxNorm: 392297 1 TABLET ORALLY EVERY MORNING (DX: ESSENTIAL HYPERTENSION) 09/07/19 25 026 Active *URGENT REQUEST* PLEASE SEND REFILLS FOR CYCLE FILL. THANK YOU! albuterol sulfate 2.5 mg/3 mL (0.083 %) solution for nebulization RxNorm: 642987 Take 3 Milliliter(s) Inhalation BID and BID PRN for shortness of breath/cough. 09/01/19 25 026 Active furosemide 40 mg tablet RxNorm: 184750 Take 1 Tablet(s) Oral QD 08/20/19 25 025 Inactive furosemide 40 mg tablet RxNorm: 686925 Take 1 Tablet(s) Oral QD 08/20/19 25 025 Inactive Contour Next EZ Meter RxNorm: USE TO JENIFER T BLOOD GLUCOSE DAILY (DX: DIABETES TYPE 2) 08/18/19 25 025 Inactive Contour Next Test Strips RxNorm: Use 1 strip BID 08/17/19 25 026 Active carvedilol 6.25 mg tablet RxNorm: 712160 Take 1 Tablet(s) Oral BID 08/10/19 25 025 Inactive nystatin 100,000 unit/gram topical powder RxNorm: 935405 Gram(s) Topical apply to affected area BID 08/10/19 25 025 Inactive hydrochlorothiazide 50 mg tablet RxNorm: 746063 Take 1 Tablet(s) Oral QD 08/07/19 25 025 Inactive Lantus Solostar U-100 Insulin 100 unit/mL (3 mL) subcutaneous pen RxNorm: 964081 Unit(s) Subcutaneous inject 14 units every am 08/07/19 25 No Stop Date Active Vitron-C 65 mg iron-125 mg tablet,delayed release RxNorm: 3208784 1 Tablet(s) Oral QOD every other day 07/23/19 25 025 Inactive *URGENT REQUEST* PLEASE SEND REFILLS FOR CYCLE FILL. THANK YOU! Oyster Shell Calcium-500 500 mg (as carbonate 1,250 mg) tablet RxNorm: 914731 1 TABLET ORALLY DAILY FOR BONE HEALTH 07/09/19 25 026 Active PLEASE SEND REFILLS.PHARMA Applause PLEASE PROFILE FOR FUTURE USE-[facility] Co Q-10 200 mg capsule RxNorm: 234302 1 CAPSULE ORALLY DAILY W/ 100MG CAP FOR A TOTAL DOSE OF 300MG (DX: SUPPLEMENT) 07/09/19 25 026 Active PLEASE SEND REFILLS.PHARMA Applause PLEASE PROFILE FOR FUTURE USE-[facility] oxybutynin chloride ER 10 mg tablet,extended release 24 hr RxNorm: 815233 1 TAB ORALLY EVERY EVENING FOR BLADDER SPASMS 07/09/19 25 025 Inactive PLEASE SEND REFILLS.PHARMA Applause PLEASE PROFILE FOR FUTURE USE-[facility] Trelegy Ellipta 200 mcg-62.5 mcg-25 mcg powder for inhalation RxNorm: 7805729 INHALE 1 PUFF INTO THE LUNGS EVERY 24 HOURS (DX: CHRONIC OBSTRUCTIVE PULMONARY DISEASE) 07/09/19 25 Active PLEASE SEND REFILLS.PHARMA CY PLEASE PROFILE FOR FUTURE USE-[facility] fluoxetine 10 mg capsule RxNorm: 062740 1 CAPSULE ORALLY DAILY (DX: DEPRESSION) (DX: ANXIETY) 07/09/19 25 Active PLEASE SEND REFILLS.PHARMA CY PLEASE PROFILE FOR FUTURE USE-[facility] irbesartan 150 mg tablet RxNorm: 295962 1 TABLET ORALLY 2 TIMES DAILY (DX: HYPERTENSION) 07/09/19 25 Active PLEASE SEND REFILLS.PHARMA CY PLEASE PROFILE FOR FUTURE USE-[facility] cholecalciferol (vitamin D3) 25 mcg (1,000 unit) tablet RxNorm: 491439 1 TABLET ORALLY DAILY (DX: VITAMIN D DEFICIENCY) 07/09/19 Active PLEASE SEND REFILLS.PHARMA CY PLEASE PROFILE FOR FUTURE USE-[facility] quetiapine 25 mg tablet RxNorm: 232147 1 TABLET ORALLY AT BEDTIME (DX: ANXIETY) 07/09/19 Active PLEASE SEND REFILLS.PHARMA CY PLEASE PROFILE FOR FUTURE USE-[facility] coenzyme Q10 100 mg capsule RxNorm: 411177 1 CAPSULE ORALLY DAILY W/ 200MG CAP FOR A TOTAL DOSE OF 300MG (DX: SUPPLEMENT) 07/09/19 Active PLEASE SEND REFILLS.PHARMA CY PLEASE PROFILE FOR FUTURE USE-[facility] donepezil 10 mg tablet RxNorm: 408087 1 TABLET ORALLY AT BEDTIME (DX: DEMENTIA) 07/09/19 Active PLEASE SEND REFILLS.PHARMA CY PLEASE PROFILE FOR FUTURE USE-[facility] alcohol swabs RxNorm: 483583 USE DIRECTED 07/09/19 Active PLEASE SEND REFILLS.PHARMA CY PLEASE PROFILE FOR FUTURE USE-[facility] Vitron-C 65 mg iron-125 mg tablet,delayed release RxNorm: 2328014 1 Tablet(s) Oral QOD every other day 07/09/19 25 025 Inactive PLEASE SEND REFILLS.PHARMA CY PLEASE PROFILE FOR FUTURE USE-[facility] cyanocobalamin (vit B-12) 500 mcg tablet RxNorm: 327405 1 TABLET ORALLY DAILY (DX: ANEMIA) 07/09/19 25 025 Inactive PLEASE SEND REFILLS.PHARMA CY PLEASE PROFILE FOR FUTURE USE-[facility] hydrochlorothiazide 25 mg tablet RxNorm: 393570 1 TABLET ORALLY DAILY (DX: HYPERTENSION) 07/09/19 25 025 Inactive PLEASE SEND REFILLS.PHARMA CY PLEASE PROFILE FOR FUTURE USE-[facility] Contour Next EZ Meter RxNorm: USE TO JENIFER T BLOOD GLUCOSE DAILY (DX: DIABETES TYPE 2) 07/09/19 25 025 Inactive PLEASE SEND REFILLS.PHARMA CY PLEASE PROFILE FOR FUTURE USE-[facility] Alejandra Protect (zinc oxide) 12 % topical cream RxNorm: 938320 APPLY TO RIGHT BUTTOCK 2 TIMES DAILY;APPLY TO RIGHT BUTTOCK NEEDED WITH SOILING 06/12/19 25 026 Active albuterol sulfate HFA 90 mcg/actuation aerosol inhaler RxNorm: 3660922 Inhale 2 Puff(s) Inhalation Q4H every four hours as needed 06/01/19 25 025 Inactive Alejandra Protect (zinc oxide) 12 % topical cream RxNorm: 136512 cream Topical apply to right buttocks BID and PRN with soiling 06/01/19 25 025 Inactive Lantus Solostar U-100 Insulin 100 unit/mL (3 mL) subcutaneous pen RxNorm: 290052 Unit(s) Subcutaneous prime en with 2 units, then inject 8 units SQ QD at bedtime 05/18/19 25 025 Inactive potassium chloride ER 10 mEq tablet,extended release RxNorm: 983506 Take 1 Tablet(s) Oral QD 04/12/19 25 No Stop Date Active acetaminophen 500 mg tablet RxNorm: 207650 Take 2 Tablet(s) Oral TID as needed 04/12/19 25 025 Inactive fluoxetine 10 mg capsule RxNorm: 236431 Take 1 Capsule(s) Oral QD 04/12/19 25 025 Inactive hydrochlorothiazide 25 mg tablet RxNorm: 887876 Take 1 Tablet(s) Oral QD 04/12/19 25 025 Inactive Oyster Shell Calcium 500 mg (as calcium carbonate 1,250 mg) tablet RxNorm: 480206 Take 1 Tablet(s) Oral QD 04/12/19 025 Inactive Co Q-10 200 mg capsule RxNorm: 341748 Capsule(s) Oral take 1 cap po daily with 100mg tab to =300mg daily 04/12/19 025 Inactive Co Q-10 100 mg capsule RxNorm: 950139 Capsule(s) Oral take 1 cap daily along with 200mg tab to =300mg daily 04/12/19 025 Inactive quetiapine 25 mg tablet RxNorm: 535241 Take 1 Tablet(s) Oral QHS every night at bedtime 04/12/19 025 Inactive Vitamin D3 25 mcg (1,000 unit) tablet RxNorm: 001643 Take 1 Tablet(s) Oral QD 04/12/19 025 Inactive donepezil 10 mg tablet RxNorm: 327891 Take 1 Tablet(s) Oral QHS every night at bedtime 04/12/19 025 Inactive cyanocobalamin (vit B-12) 500 mcg tablet RxNorm: 122820 Take 1 Tablet(s) Oral QD 04/12/19 025 Inactive oxybutynin chloride ER 10 mg tablet,extended release 24 hr RxNorm: 351628 Take 1 Tablet(s) Oral QPM every evening 04/12/19 025 Inactive irbesartan 150 mg tablet RxNorm: 692436 Take 1 Tablet(s) Oral BID 04/12/19 025 Inactive Trelegy Ellipta 200 mcg-62.5 mcg-25 mcg powder for inhalation RxNorm: 6772619 Inhale 1 Puff(s) Inhalation every 24 hours 04/12/19 025 Inactive Vitron-C 65 mg iron-125 mg tablet,delayed release RxNorm: 8280067 Take 1 Tablet(s) Oral QOD every other day 04/12/19 025 Inactive Eliquis 5 mg tablet RxNorm: 0461281 Take 1 Tablet(s) Oral BID 04/12/19 25 025 Inactive Lantus Solostar U-100 Insulin 100 unit/mL (3 mL) subcutaneous pen RxNorm: 702890 Unit(s) Subcutaneous prime en with 2 units, [...] data Instructions Comment Date Alyx resides at [facility] since about 2021. Previously lived independently in [place]. . Has one daughter Maggie who is involved in healthcare. PMH: History of breast cancer and melanoma, mixed dementia, depression, CAD, HLD, history of CVA/TIA, compression fx of L1 vertebrae, urinary incontinence, hearing loss, osteopeniaPrimary contact: Maggiemandi Gallegos (Daughter)Code Status: DNR/SelectLab Schedule: Mar/SepSpecialists: [facility] (Q6M), Cardiology [facility] (MD Echo) 08/06/2024
--- OUTSIDE RECORDS SUMMARY | 2024-09-21 18:49 | XMS_ITS | CCD ---
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 Name Role Phone Teresa Vivas Primary Care Provider Un available Unavailable Chronic Care Management Unavaila ble Summary Purpose DataExchange Insurance Providers Payer name Policy type / Coverage type Covered democrat ID Effective Begin Date Effective End Date [place] Risk [id number] Unknown Un known Family history Mother Diagnosis Age At Onset Stroke Unknown Social History Social History Element Codes Description Effec tive Dates Marital status Unknown 04/13/2024 Marital status Unknown 04/13/2024 Living arrangements Unknown Assisted Living 04/[address]: 1235932 Former smoker 04/[address]: 8960898 Former smoker 04/[address]: 552173533 No Alcohol Consum ption 04/13/[address]: 461534 Currently drin ks alcohol 04/13/2024 Sexually Active? [...] No Inactive Date A ctive SIMVASTATIN RxNorm: 46427 04/13/2024 No Inactive D ate Active Penicillin Unknown 04/13/2024 No Inactive Date A ctive CLOPIDOGREL Unknown 03/23/2024 No Inactive Date Active naproxen RxNorm: 7258 04/13/2024 No Inactive Date Active levofloxacin RxNorm: 21246 03/23/2024 No Inactive Date Active Levemir Unknown 03/23/2024 No Inactive Date Ac tive metformin RxNorm: 823368 04/13/2024 No Inactive Da te Active ESTROGENS Unknown 03/23/2024 No Inactive Date Ac tive Atenolol RxNorm: 1202 04/13/2024 No Inactive Date Active metoprolol succinate RxNorm: 483677 03/23/2024 No Inactive Date Active Januvia RxNorm: 357327 04/13/2024 No Inactive Da te Active furosemide RxNorm: 4603 03/23/2024 No Inactive Balaji e Active azithromycin RxNorm: 13251 04/13/2024 No Inactive Date Active losartan RxNorm: 696721 04/13/2024 No Inactive Da te Active NSAIDS Unknown 03/23/2024 No Inactive Date Ac tive Amlodipine RxNorm: 170909 04/13/2024 No Inactive D ate Active LISINOPRIL RxNorm: 20616 04/13/2024 No Inactive Da te Active PIOGLITAZONE DERIVATIVES Unknown 04/13/2024 No I nactive Date Active Problems Condition Codes Effective Dates Condition St atus Closed fracture of one rib w ith routine healing, unspecified laterality, subsequent encounter SNOMED CT: 93872323 ICD-10: S22.39XD ICD-9: V54.19 09/07/2024 Active Pneumonia due to infectious organism, unspecified laterality, unspecified part of lung SNOMED CT: 949119230 ICD-10: J18.9 ICD-9: 486 09/07/2024 Active Unsteady [...] intermediate insulin use ICD-10: E11.9 ICD-9: 250.00 08/31/2024 [...] ACP (advance care planning) SNOMED CT: 3 85930112 ICD-10: Z71.89 ICD-9: V65.49 06/01/2024 Active Adult general medical exam SNOMED CT: 30 0202579 ICD-10: Z00.00 ICD-9: V70.9 06/01/2024 Active Atherosclerosis of coronary artery of [place] heart without angina pectoris, unspecified vessel or lesion type ICD-10: I25.10 ICD-9: 414.01 06/01/2024 Active 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 ICD-9: 311 06/01/[address]: 556729439 ICD-10: R54 ICD-9: 797 06/01/2024 Active Mixed [...] fracture of L1 vertebra, sequela SNOMED CT: 395674594 ICD-10: S32.010S ICD-9: 905.1 04/13/2024 Active Dementia in other diseases classified elsewhere, unspecified severity, without behavioral disturbance, psychotic disturbance, mood disturbance, and anxiety ICD-10: F02.80 04/13/[address]: 812750688 ICD-10: K57.90 ICD-9: 562.10 04/13/2024 Active History of breast cancer SNOMED CT: 4290 45791 ICD-10: Z85.3 ICD-9: V10.3 04/13/2024 Active History of melanoma SNOMED CT: 348979844 ICD-10: Z85.820 ICD-9: V10.82 04/13/2024 Active History of TIA (transient ischemic attack) SNOMED CT: 133986702 ICD-10: Z86.73 ICD-9: V12.54 04/13/2024 Active Hyperlipidemia, unspecified hyperlipidemia type SNOMED CT: 75350905 ICD-10: E78.5 ICD-9: 272.4 04/13/2024 Active Statin intolerance SNOMED CT: 648248989 ICD-10: Z78.9 ICD-9: 995.27 04/13/2024 Active Medications Medication Codes Instructions Start Date Stop Date Status Fill Instructions carvedilol 6.25 mg tablet RxNorm: 775709 1 Tablet(s) Oral BID 09/21/19 25 026 Active *URGENT REQUEST* PLEASE SEND REFILLS FOR CYCLE FILL. THANK YOU! oxybutynin chloride ER 5 mg tablet,extended release 24 hr RxNorm: 260380 1 Tablet(s) Oral QD 09/16/19 25 026 Active *URGENT REQUEST* PLEASE SEND REFILLS FOR CYCLE FILL. THANK YOU! oxycodone 5 mg tablet RxNorm: 9426701 Take 1/2 Tablet(s) Oral every 6 hours as needed 09/08/19 No Stop Date Active acetaminophen 500 mg tablet RxNorm: 215798 Take 2 Tablet(s) Oral every 6 hours as needed 09/08/19 No Stop Date Active lidocaine 4 % topical patch RxNorm: 6318201 Apply 1 Patch Topical QD on for 12 hours, off for 12 hours 09/08/19 25 025 Inactive sennosides 8.6 mg-docusate sodium 50 mg tablet RxNorm: 346713 Take 1 Tablet(s) Oral QD as needed 09/08/19 No Stop Date Active oxybutynin chloride ER 5 mg tablet,extended release 24 hr RxNorm: 062967 Take 1 Tablet(s) Oral QD 09/08/19 25 025 Inactive doxycycline hyclate 100 mg tablet RxNorm: 6371265 Take 1 Tablet(s) Oral BID 09/08/19 25 025 Inactive Calcium Antacid 200 mg (as calcium carbonate 500 mg) chewable tablet RxNorm: 968803 CHEW & SWALLOW 1 TABLET ORALLY DAILY 09/07/19 025 Inactive *URGENT REQUEST* PLEASE SEND REFILLS FOR CYCLE FILL. THANK YOU! hydrochlorothiazide 50 mg tablet RxNorm: 681402 1 TABLET ORALLY EVERY MORNING (DX: ESSENTIAL HYPERTENSION) 09/07/19 25 026 Active *URGENT REQUEST* PLEASE SEND REFILLS FOR CYCLE FILL. THANK YOU! albuterol sulfate 2.5 mg/3 mL (0.083 %) solution for nebulization RxNorm: 483880 Take 3 Milliliter(s) Inhalation BID and BID PRN for shortness of breath/cough. 09/01/19 25 026 Active furosemide 40 mg tablet RxNorm: 271078 Take 1 Tablet(s) Oral QD 08/20/19 25 025 Inactive furosemide 40 mg tablet RxNorm: 908091 Take 1 Tablet(s) Oral QD 08/20/19 25 025 Inactive Contour Next EZ Meter RxNorm: USE TO JENIFER T BLOOD GLUCOSE DAILY (DX: DIABETES TYPE 2) 08/18/19 25 025 Inactive Contour Next Test Strips RxNorm: Use 1 strip BID 08/17/19 25 026 Active carvedilol 6.25 mg tablet RxNorm: 703079 Take 1 Tablet(s) Oral BID 08/10/19 25 025 Inactive nystatin 100,000 unit/gram topical powder RxNorm: 745969 Gram(s) Topical apply to affected area BID 08/10/19 25 025 Inactive Lanlandon Monteiroostar U-100 Insulin 100 unit/mL (3 mL) subcutaneous pen RxNorm: 776051 Unit(s) Subcutaneous inject 14 units every am 08/07/19 No Stop Date Active hydrochlorothiazide 50 mg tablet RxNorm: 280727 Take 1 Tablet(s) Oral QD 08/07/19 25 025 Inactive Vitron-C 65 mg iron-125 mg tablet,delayed release RxNorm: 9850599 1 Tablet(s) Oral QOD every other day 07/23/19 025 Inactive *URGENT REQUEST* PLEASE SEND REFILLS FOR CYCLE FILL. THANK YOU! Oyster Shell Calcium-500 500 mg (as carbonate 1,250 mg) tablet RxNorm: 421834 1 TABLET ORALLY DAILY FOR BONE HEALTH 07/09/19 026 Active PLEASE SEND REFILLS.PHARMA CY PLEASE PROFILE FOR FUTURE USE-[facility] Co Q-10 200 mg capsule RxNorm: 491573 1 CAPSULE ORALLY DAILY W/ 100MG CAP FOR A TOTAL DOSE OF 300MG (DX: SUPPLEMENT) 07/09/19 25 026 Active PLEASE SEND REFILLS.PHARMA CY PLEASE PROFILE FOR FUTURE USE-[facility] Trelegy Ellipta 200 mcg-62.5 mcg-25 mcg powder for inhalation RxNorm: 5430253 INHALE 1 PUFF INTO THE LUNGS EVERY 24 HOURS (DX: CHRONIC OBSTRUCTIVE PULMONARY DISEASE) 07/09/19 25 026 Active PLEASE SEND REFILLS.PHARMA CY PLEASE PROFILE FOR FUTURE USE-[facility] fluoxetine 10 mg capsule RxNorm: 161543 1 CAPSULE ORALLY DAILY (DX: DEPRESSION) (DX: ANXIETY) 07/09/19 25 026 Active PLEASE SEND REFILLS.PHARMA CY PLEASE PROFILE FOR FUTURE USE-[facility] irbesartan 150 mg tablet RxNorm: 757094 1 TABLET ORALLY 2 TIMES DAILY (DX: HYPERTENSION) 07/09/19 25 026 Active PLEASE SEND REFILLS.PHARMA CY PLEASE PROFILE FOR FUTURE USE-[facility] cholecalciferol (vitamin D3) 25 mcg (1,000 unit) tablet RxNorm: 816434 1 TABLET ORALLY DAILY (DX: VITAMIN D DEFICIENCY) 07/09/19 25 026 Active PLEASE SEND REFILLS.PHARMA CY PLEASE PROFILE FOR FUTURE USE-[facility] quetiapine 25 mg tablet RxNorm: 916238 1 TABLET ORALLY AT BEDTIME (DX: ANXIETY) 07/09/19 25 026 Active PLEASE SEND REFILLS.PHARMA CY PLEASE PROFILE FOR FUTURE USE-[facility] coenzyme Q10 100 mg capsule RxNorm: 799676 1 CAPSULE ORALLY DAILY W/ 200MG CAP FOR A TOTAL DOSE OF 300MG (DX: SUPPLEMENT) 07/09/19 25 026 Active PLEASE SEND REFILLS.PHARMA CY PLEASE PROFILE FOR FUTURE USE-[facility] donepezil 10 mg tablet RxNorm: 242942 1 TABLET ORALLY AT BEDTIME (DX: DEMENTIA) 07/09/19 25 026 Active PLEASE SEND REFILLS.PHARMA CY PLEASE PROFILE FOR FUTURE USE-[facility] alcohol swabs RxNorm: 512533 USE DIRECTED 07/09/19 25 026 Active PLEASE SEND REFILLS.PHARMA CY PLEASE PROFILE FOR FUTURE USE-[facility] Vitron-C 65 mg iron-125 mg tablet,delayed release RxNorm: 8551868 1 Tablet(s) Oral QOD every other day 07/09/19 25 025 Inactive PLEASE SEND REFILLS.PHARMA CY PLEASE PROFILE FOR FUTURE USE-[facility] oxybutynin chloride ER 10 mg tablet,extended release 24 hr RxNorm: 664206 1 TAB ORALLY EVERY EVENING FOR BLADDER SPASMS 07/09/19 25 025 Inactive PLEASE SEND REFILLS.PHARMA CY PLEASE PROFILE FOR FUTURE USE-[facility] cyanocobalamin (vit B-12) 500 mcg tablet RxNorm: 310405 1 TABLET ORALLY DAILY (DX: ANEMIA) 07/09/19 25 025 Inactive PLEASE SEND REFILLS.PHARMA CY PLEASE PROFILE FOR FUTURE USE-[facility] hydrochlorothiazide 25 mg tablet RxNorm: 682837 1 TABLET ORALLY DAILY (DX: HYPERTENSION) 07/09/19 025 Inactive PLEASE SEND REFILLS.PHARMA CY PLEASE PROFILE FOR FUTURE USE-[facility] Contour Next EZ Meter RxNorm: USE TO JENIFER T BLOOD GLUCOSE DAILY (DX: DIABETES TYPE 2) 07/09/19 025 Inactive PLEASE SEND REFILLS.PHARMA CY PLEASE PROFILE FOR FUTURE USE-[facility] Alejandra Protect (zinc oxide) 12 % topical cream RxNorm: 461751 APPLY TO RIGHT BUTTOCK 2 TIMES DAILY;APPLY TO RIGHT BUTTOCK NEEDED WITH SOILING 06/12/19 026 Active albuterol sulfate HFA 90 mcg/actuation aerosol inhaler RxNorm: 0324514 Inhale 2 Puff(s) Inhalation Q4H every four hours as needed 06/01/19 25 025 Inactive Alejandra Protect (zinc oxide) 12 % topical cream RxNorm: 801481 cream Topical apply to right buttocks BID and PRN with soiling 06/01/19 025 Inactive Lantus Solostar U-100 Insulin 100 unit/mL (3 mL) subcutaneous pen RxNorm: 408901 Unit(s) Subcutaneous prime en with 2 units, then inject 8 units SQ QD at bedtime 05/18/19 025 Inactive potassium chloride ER 10 mEq tablet,extended release RxNorm: 823416 Take 1 Tablet(s) Oral QD 04/12/19 25 No Stop Date Active fluoxetine 10 mg capsule RxNorm: 830124 Take 1 Capsule(s) Oral QD 04/12/19 025 Inactive hydrochlorothiazide 25 mg tablet RxNorm: 458645 Take 1 Tablet(s) Oral QD 04/12/19 025 Inactive Oyster Shell Calcium 500 mg (as calcium carbonate 1,250 mg) tablet RxNorm: 418298 Take 1 Tablet(s) Oral QD 04/12/19 025 Inactive Co Q-10 200 mg capsule RxNorm: 117554 Capsule(s) Oral take 1 cap po daily with 100mg tab to =300mg daily 04/12/19 25 025 Inactive Co Q-10 100 mg capsule RxNorm: 151594 Capsule(s) Oral take 1 cap daily along with 200mg tab to =300mg daily 04/12/19 025 Inactive quetiapine 25 mg tablet RxNorm: 571762 Take 1 Tablet(s) Oral QHS every night at bedtime 04/12/19 025 Inactive Vitamin D3 25 mcg (1,000 unit) tablet RxNorm: 761124 Take 1 Tablet(s) Oral QD 04/12/19 025 Inactive acetaminophen 500 mg tablet RxNorm: 268972 Take 2 Tablet(s) Oral TID as needed 04/12/19 025 Inactive donepezil 10 mg tablet RxNorm: 546103 Take 1 Tablet(s) Oral QHS every night at bedtime 04/12/19 025 Inactive cyanocobalamin (vit B-12) 500 mcg tablet RxNorm: 460113 Take 1 Tablet(s) Oral QD 04/12/19 025 Inactive oxybutynin chloride ER 10 mg tablet,extended release 24 hr RxNorm: 780432 Take 1 Tablet(s) Oral QPM every evening 04/12/19 025 Inactive irbesartan 150 mg tablet RxNorm: 829181 Take 1 Tablet(s) Oral BID 04/12/19 025 Inactive Trelegy Ellipta 200 mcg-62.5 mcg-25 mcg powder for inhalation RxNorm: 8537384 Inhale 1 Puff(s) Inhalation every 24 hours 04/12/19 025 Inactive Vitron-C 65 mg iron-125 mg tablet,delayed release RxNorm: 6671105 Take 1 Tablet(s) Oral QOD every other day 04/12/19 025 Inactive Eliquis 5 mg tablet RxNorm: 8738048 Take 1 Tablet(s) Oral BID 04/12/19 025 Inactive Lantus Solostar U-100 Insulin 100 unit/mL (3 mL) subcutaneous pen RxNorm: 810075 Unit(s) Subcutaneous prime en with 2 units, [...] Comment Date Alyx resides at [facility] since about 2021. Previously lived independently in [place]. . Has one daughter Maggie who is involved in healthcare. PMH: History of breast cancer and melanoma, mixed dementia, depression, CAD, HLD, history of CVA/TIA, compression fx of L1 vertebrae, urinary incontinence, hearing loss, osteopeniaPrimary contact: Maggie Gallegos (Daughter)Code Status: DNR/SelectLab Schedule: Mar/SepSpecialists: [facility] (Q6M), Cardiology [facility] (MD Echo) 08/06/2024
--- OUTSIDE RECORDS SUMMARY | 2024-09-21 18:49 | XMS_ITS | CCD ---
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 Care Engineering Director Name Role Phone Teresa Vivas Primary Care Provider Un available Unavailable Chronic Care Management Unavaila ble Summary Purpose DataExchange Insurance Providers Payer name Policy type / Coverage type Covered democrat ID Effective Begin Date Effective End Date [place] Medicare Risk [id number] Unknown Un known Family history Mother Diagnosis Age At Onset Stroke Unknown Social History Social History Element Codes Description Effec tive Dates Marital status Unknown 04/13/2024 Marital status Unknown 04/13/2024 Living arrangements Unknown Assisted Living 04/[address]: 7516164 Former smoker 04/[address]: 5574971 Former smoker 04/[address]: 379424556 No Alcohol Consum ption 04/13/[address]: 468403 Currently drin ks alcohol 04/13/2024 Sexually Active? [...] No Inactive Date A ctive SIMVASTATIN RxNorm: 13163 04/13/2024 No Inactive D ate Active Penicillin Unknown 04/13/2024 No Inactive Date A ctive CLOPIDOGREL Unknown 03/23/2024 No Inactive Date Active naproxen RxNorm: 7258 04/13/2024 No Inactive Date Active levofloxacin RxNorm: 21431 03/23/2024 No Inactive Date Active Levemir Unknown 03/23/2024 No Inactive Date Ac tive metformin RxNorm: 184146 04/13/2024 No Inactive Da te Active ESTROGENS Unknown 03/23/2024 No Inactive Date Ac tive Atenolol RxNorm: 1202 04/13/2024 No Inactive Date Active metoprolol succinate RxNorm: 430505 03/23/2024 No Inactive Date Active Januvia RxNorm: 642603 04/13/2024 No Inactive Da te Active furosemide RxNorm: 4603 03/23/2024 No Inactive Balaji e Active azithromycin RxNorm: 31296 04/13/2024 No Inactive Date Active losartan RxNorm: 637680 04/13/2024 No Inactive Da te Active NSAIDS Unknown 03/23/2024 No Inactive Date Ac tive Amlodipine RxNorm: 761296 04/13/2024 No Inactive D ate Active LISINOPRIL RxNorm: 12523 04/13/2024 No Inactive Da te Active PIOGLITAZONE [...] fpc insulin use ICD-10: E11.9 ICD-9: 250.00 08/31/2024 [...] ACP (advance care planning) SNOMED CT: 3 09804151 ICD-10: Z71.89 ICD-9: V65.49 06/01/2024 Active Adult general medical exam SNOMED CT: 30 2174807 ICD-10: Z00.00 ICD-9: V70.9 06/01/2024 Active Atherosclerosis of coronary artery of [place] heart without angina pectoris, unspecified vessel or lesion type ICD-10: I25.10 ICD-9: 414.01 06/01/2024 Active 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 ICD-9: 311 06/01/[address]: 212298459 ICD-10: R54 ICD-9: 797 06/01/2024 Active 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 ICD-9: 331.0 06/01/2024 Active CAMIOL (obstructive sleep apnea) ICD-10: G4 7.33 ICD-9: [...] fracture of L1 vertebra, sequela SNOMED CT: 290246266 ICD-10: S32.010S ICD-9: 905.1 04/13/2024 Active Dementia in other diseases classified elsewhere, unspecified severity, without behavioral disturbance, psychotic disturbance, mood disturbance, and anxiety ICD-10: F02.80 04/13/[address]: 109893933 ICD-10: K57.90 ICD-9: 562.10 04/13/2024 Active History of breast cancer SNOMED CT: 4290 59215 ICD-10: Z85.3 ICD-9: V10.3 04/13/2024 Active History of melanoma SNOMED CT: 188148651 ICD-10: Z85.820 ICD-9: V10.82 04/13/2024 Active History of TIA (transient ischemic attack) SNOMED CT: 044379715 ICD-10: Z86.73 ICD-9: V12.54 04/13/2024 Active Hyperlipidemia, unspecified hyperlipidemia type SNOMED CT: 92558079 ICD-10: E78.5 ICD-9: 272.4 04/13/2024 Active Statin intolerance SNOMED CT: 320845916 ICD-10: Z78.9 ICD-9: 995.27 04/13/2024 Active Medications Medication Codes Instructions Start Date Stop Date Status Fill Instructions Calcium Antacid 200 mg (as calcium carbonate 500 mg) chewable tablet RxNorm: 443070 CHEW & SWALLOW 1 TABLET ORALLY DAILY 09/07/19 25 025 Inactive *URGENT REQUEST* PLEASE SEND REFILLS FOR CYCLE FILL. THANK YOU! hydrochlorothiazide 50 mg tablet RxNorm: 217865 1 TABLET ORALLY EVERY MORNING (DX: ESSENTIAL HYPERTENSION) 09/07/19 25 026 Active *URGENT REQUEST* PLEASE SEND REFILLS FOR CYCLE FILL. THANK YOU! albuterol sulfate 2.5 mg/3 mL (0.083 %) solution for nebulization RxNorm: 854682 Take 3 Milliliter(s) Inhalation BID and BID PRN for shortness of breath/cough. 09/01/19 25 026 Active furosemide 40 mg tablet RxNorm: 105372 Take 1 Tablet(s) Oral QD 08/20/19 25 025 Inactive furosemide 40 mg tablet RxNorm: 475045 Take 1 Tablet(s) Oral QD 08/20/19 25 025 Inactive Contour Next EZ Meter RxNorm: USE TO JENIFER T BLOOD GLUCOSE DAILY (DX: DIABETES TYPE 2) 08/18/19 25 025 Inactive Contour Next Test Strips RxNorm: Use 1 strip BID 08/17/19 25 026 Active carvedilol 6.25 mg tablet RxNorm: 714595 Take 1 Tablet(s) Oral BID 08/10/19 25 025 Inactive nystatin 100,000 unit/gram topical powder RxNorm: 869258 Gram(s) Topical apply to affected area BID 08/10/19 25 025 Inactive hydrochlorothiazide 50 mg tablet RxNorm: 332628 Take 1 Tablet(s) Oral QD 08/07/19 25 025 Inactive Lantus Solostar U-100 Insulin 100 unit/mL (3 mL) subcutaneous pen RxNorm: 526355 Unit(s) Subcutaneous inject 14 units every am 08/07/19 25 No Stop Date Active Vitron-C 65 mg iron-125 mg tablet,delayed release RxNorm: 1082214 1 Tablet(s) Oral QOD every other day 07/23/19 25 025 Inactive *URGENT REQUEST* PLEASE SEND REFILLS FOR CYCLE FILL. THANK YOU! Oyster Shell Calcium-500 500 mg (as carbonate 1,250 mg) tablet RxNorm: 617327 1 TABLET ORALLY DAILY FOR BONE HEALTH 07/09/19 25 026 Active PLEASE SEND REFILLS.PHARMA Frodio PLEASE PROFILE FOR FUTURE USE-[facility] Co Q-10 200 mg capsule RxNorm: 514161 1 CAPSULE ORALLY DAILY W/ 100MG CAP FOR A TOTAL DOSE OF 300MG (DX: SUPPLEMENT) 07/09/19 25 026 Active PLEASE SEND REFILLS.PHARMA Frodio PLEASE PROFILE FOR FUTURE USE-[facility] oxybutynin chloride ER 10 mg tablet,extended release 24 hr RxNorm: 067213 1 TAB ORALLY EVERY EVENING FOR BLADDER SPASMS 07/09/19 25 025 Inactive PLEASE SEND REFILLS.PHARMA Frodio PLEASE PROFILE FOR FUTURE USE-[facility] Trelegy Ellipta 200 mcg-62.5 mcg-25 mcg powder for inhalation RxNorm: 5540543 INHALE 1 PUFF INTO THE LUNGS EVERY 24 HOURS (DX: CHRONIC OBSTRUCTIVE PULMONARY DISEASE) 07/09/19 25 Active PLEASE SEND REFILLS.PHARMA CY PLEASE PROFILE FOR FUTURE USE-[facility] fluoxetine 10 mg capsule RxNorm: 880347 1 CAPSULE ORALLY DAILY (DX: DEPRESSION) (DX: ANXIETY) 07/09/19 25 Active PLEASE SEND REFILLS.PHARMA CY PLEASE PROFILE FOR FUTURE USE-[facility] irbesartan 150 mg tablet RxNorm: 321716 1 TABLET ORALLY 2 TIMES DAILY (DX: HYPERTENSION) 07/09/19 25 Active PLEASE SEND REFILLS.PHARMA CY PLEASE PROFILE FOR FUTURE USE-[facility] cholecalciferol (vitamin D3) 25 mcg (1,000 unit) tablet RxNorm: 364052 1 TABLET ORALLY DAILY (DX: VITAMIN D DEFICIENCY) 07/09/19 Active PLEASE SEND REFILLS.PHARMA CY PLEASE PROFILE FOR FUTURE USE-[facility] quetiapine 25 mg tablet RxNorm: 576577 1 TABLET ORALLY AT BEDTIME (DX: ANXIETY) 07/09/19 Active PLEASE SEND REFILLS.PHARMA CY PLEASE PROFILE FOR FUTURE USE-[facility] coenzyme Q10 100 mg capsule RxNorm: 673470 1 CAPSULE ORALLY DAILY W/ 200MG CAP FOR A TOTAL DOSE OF 300MG (DX: SUPPLEMENT) 07/09/19 Active PLEASE SEND REFILLS.PHARMA CY PLEASE PROFILE FOR FUTURE USE-[facility] donepezil 10 mg tablet RxNorm: 668536 1 TABLET ORALLY AT BEDTIME (DX: DEMENTIA) 07/09/19 Active PLEASE SEND REFILLS.PHARMA CY PLEASE PROFILE FOR FUTURE USE-[facility] alcohol swabs RxNorm: 849097 USE DIRECTED 07/09/19 Active PLEASE SEND REFILLS.PHARMA CY PLEASE PROFILE FOR FUTURE USE-[facility] Vitron-C 65 mg iron-125 mg tablet,delayed release RxNorm: 4795718 1 Tablet(s) Oral QOD every other day 07/09/19 25 025 Inactive PLEASE SEND REFILLS.PHARMA CY PLEASE PROFILE FOR FUTURE USE-[facility] cyanocobalamin (vit B-12) 500 mcg tablet RxNorm: 688851 1 TABLET ORALLY DAILY (DX: ANEMIA) 07/09/19 25 025 Inactive PLEASE SEND REFILLS.PHARMA CY PLEASE PROFILE FOR FUTURE USE-[facility] hydrochlorothiazide 25 mg tablet RxNorm: 756633 1 TABLET ORALLY DAILY (DX: HYPERTENSION) 07/09/19 25 025 Inactive PLEASE SEND REFILLS.PHARMA CY PLEASE PROFILE FOR FUTURE USE-[facility] Contour Next EZ Meter RxNorm: USE TO JENIFER T BLOOD GLUCOSE DAILY (DX: DIABETES TYPE 2) 07/09/19 25 025 Inactive PLEASE SEND REFILLS.PHARMA CY PLEASE PROFILE FOR FUTURE USE-[facility] Alejandra Protect (zinc oxide) 12 % topical cream RxNorm: 114919 APPLY TO RIGHT BUTTOCK 2 TIMES DAILY;APPLY TO RIGHT BUTTOCK NEEDED WITH SOILING 06/12/19 25 026 Active albuterol sulfate HFA 90 mcg/actuation aerosol inhaler RxNorm: 9394348 Inhale 2 Puff(s) Inhalation Q4H every four hours as needed 06/01/19 25 025 Inactive Alejandra Protect (zinc oxide) 12 % topical cream RxNorm: 458828 cream Topical apply to right buttocks BID and PRN with soiling 06/01/19 25 025 Inactive Lantus Solostar U-100 Insulin 100 unit/mL (3 mL) subcutaneous pen RxNorm: 821002 Unit(s) Subcutaneous prime en with 2 units, then inject 8 units SQ QD at bedtime 05/18/19 25 025 Inactive potassium chloride ER 10 mEq tablet,extended release RxNorm: 017055 Take 1 Tablet(s) Oral QD 04/12/19 25 No Stop Date Active acetaminophen 500 mg tablet RxNorm: 629889 Take 2 Tablet(s) Oral TID as needed 04/12/19 25 025 Inactive fluoxetine 10 mg capsule RxNorm: 875062 Take 1 Capsule(s) Oral QD 04/12/19 25 025 Inactive hydrochlorothiazide 25 mg tablet RxNorm: 670469 Take 1 Tablet(s) Oral QD 04/12/19 25 025 Inactive Oyster Shell Calcium 500 mg (as calcium carbonate 1,250 mg) tablet RxNorm: 230713 Take 1 Tablet(s) Oral QD 04/12/19 025 Inactive Co Q-10 200 mg capsule RxNorm: 167886 Capsule(s) Oral take 1 cap po daily with 100mg tab to =300mg daily 04/12/19 025 Inactive Co Q-10 100 mg capsule RxNorm: 827662 Capsule(s) Oral take 1 cap daily along with 200mg tab to =300mg daily 04/12/19 025 Inactive quetiapine 25 mg tablet RxNorm: 559664 Take 1 Tablet(s) Oral QHS every night at bedtime 04/12/19 025 Inactive Vitamin D3 25 mcg (1,000 unit) tablet RxNorm: 047238 Take 1 Tablet(s) Oral QD 04/12/19 025 Inactive donepezil 10 mg tablet RxNorm: 450208 Take 1 Tablet(s) Oral QHS every night at bedtime 04/12/19 025 Inactive cyanocobalamin (vit B-12) 500 mcg tablet RxNorm: 473273 Take 1 Tablet(s) Oral QD 04/12/19 025 Inactive oxybutynin chloride ER 10 mg tablet,extended release 24 hr RxNorm: 536704 Take 1 Tablet(s) Oral QPM every evening 04/12/19 025 Inactive irbesartan 150 mg tablet RxNorm: 745613 Take 1 Tablet(s) Oral BID 04/12/19 025 Inactive Trelegy Ellipta 200 mcg-62.5 mcg-25 mcg powder for inhalation RxNorm: 5817798 Inhale 1 Puff(s) Inhalation every 24 hours 04/12/19 025 Inactive Vitron-C 65 mg iron-125 mg tablet,delayed release RxNorm: 3564321 Take 1 Tablet(s) Oral QOD every other day 04/12/19 025 Inactive Eliquis 5 mg tablet RxNorm: 5019640 Take 1 Tablet(s) Oral BID 04/12/19 25 025 Inactive Lantus Solostar U-100 Insulin 100 unit/mL (3 mL) subcutaneous pen RxNorm: 604616 Unit(s) Subcutaneous prime en with 2 units, [...] data Instructions Comment Date Alyx resides at [facility] since about 2021. Previously lived independently in [place]. . Has one daughter Maggie who is involved in healthcare. PMH: History of breast cancer and melanoma, mixed dementia, depression, CAD, HLD, history of CVA/TIA, compression fx of L1 vertebrae, urinary incontinence, hearing loss, osteopeniaPrimary contact: Maggiemandi Gallegos (Daughter)Code Status: DNR/SelectLab Schedule: Mar/SepSpecialists: [facility] (Q6M), Cardiology [facility] ([facility] Echo) 08/06/2024
--- OUTSIDE RECORDS SUMMARY | 2024-09-21 18:50 | XMS_ITS | CCD ---
Author Name Linda Vivas Address 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 Medicare Risk [id number] Unknown Un known Family history Mother Diagnosis Age At Onset Stroke Unknown Social History Social History Element Codes Description Effec tive Dates Marital status Unknown 04/13/2024 Marital status Unknown 04/13/2024 Living arrangements Unknown Assisted Living 04/[address]: 6914934 Former smoker 04/[address]: 4534816 Former smoker 04/[address]: 923970114 No Alcohol Consum ption 04/13/[address]: 236075 Currently drin ks alcohol 04/13/2024 Sexually Active? [...] No Inactive Date A ctive SIMVASTATIN RxNorm: 86371 04/13/2024 No Inactive D ate Active Penicillin Unknown 04/13/2024 No Inactive Date A ctive CLOPIDOGREL Unknown 03/23/2024 No Inactive Date Active naproxen RxNorm: 7258 04/13/2024 No Inactive Date Active levofloxacin RxNorm: 56022 03/23/2024 No Inactive Date Active Levemir Unknown 03/23/2024 No Inactive Date Ac tive metformin RxNorm: 251112 04/13/2024 No Inactive Da te Active ESTROGENS Unknown 03/23/2024 No Inactive Date Ac tive Atenolol RxNorm: 1202 04/13/2024 No Inactive Date Active metoprolol succinate RxNorm: 135345 03/23/2024 No Inactive Date Active Januvia RxNorm: 612545 04/13/2024 No Inactive Da te Active furosemide RxNorm: 4603 03/23/2024 No Inactive Balaji e Active azithromycin RxNorm: 42515 04/13/2024 No Inactive Date Active losartan RxNorm: 456242 04/13/2024 No Inactive Da te Active NSAIDS Unknown 03/23/2024 No Inactive Date Ac tive Amlodipine RxNorm: 158627 04/13/2024 No Inactive D ate Active LISINOPRIL RxNorm: 61189 04/13/2024 No Inactive Da te Active PIOGLITAZONE DERIVATIVES Unknown 04/13/2024 No I nactive Date Active Problems Condition Codes Effective Dates Condition St atus Closed fracture of one rib w ith routine healing, unspecified laterality, subsequent encounter SNOMED CT: 95843064 ICD-10: S22.39XD ICD-9: V54.19 09/07/2024 Active Pneumonia due to infectious organism, unspecified laterality, unspecified part of lung SNOMED CT: 888290631 ICD-10: J18.9 ICD-9: 486 09/07/2024 Active Unsteady [...] ACP (advance care planning) SNOMED CT: 3 84197007 ICD-10: Z71.89 ICD-9: V65.49 06/01/2024 Active Adult general medical exam SNOMED CT: 30 4062065 ICD-10: Z00.00 ICD-9: V70.9 06/01/2024 Active Atherosclerosis of coronary artery of [place] heart without angina pectoris, unspecified vessel or lesion type ICD-10: I25.10 ICD-9: 414.01 06/01/2024 Active 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 ICD-9: 311 06/01/[address]: 771011522 ICD-10: R54 ICD-9: 797 06/01/2024 Active Mixed [...] fracture of L1 vertebra, sequela SNOMED CT: 924167458 ICD-10: S32.010S ICD-9: 905.1 04/13/2024 Active Dementia in other diseases classified elsewhere, unspecified severity, without behavioral disturbance, psychotic disturbance, mood disturbance, and anxiety ICD-10: F02.80 04/13/[address]: 766905367 ICD-10: K57.90 ICD-9: 562.10 04/13/2024 Active History of breast cancer SNOMED CT: 4290 54101 ICD-10: Z85.3 ICD-9: V10.3 04/13/2024 Active History of melanoma SNOMED CT: 693143650 ICD-10: Z85.820 ICD-9: V10.82 04/13/2024 Active History of TIA (transient ischemic attack) SNOMED CT: 194241996 ICD-10: Z86.73 ICD-9: V12.54 04/13/2024 Active Hyperlipidemia, unspecified hyperlipidemia type SNOMED CT: 76131143 ICD-10: E78.5 ICD-9: 272.4 04/13/2024 Active Statin intolerance SNOMED CT: 705339625 ICD-10: Z78.9 ICD-9: 995.27 04/13/2024 Active Medications Medication Codes Instructions Start Date Stop Date Status Fill Instructions oxybutynin chloride ER 5 mg tablet,extended release 24 hr RxNorm: 576942 Take 1 Tablet(s) Oral QD 09/08/19 025 Inactive oxycodone 5 mg tablet RxNorm: 2152352 Take 1/2 Tablet(s) Oral every 6 hours as needed 09/08/19 No Stop Date Active acetaminophen 500 mg tablet RxNorm: 018646 Take 2 Tablet(s) Oral every 6 hours as needed 09/08/19 No Stop Date Active lidocaine 4 % topical patch RxNorm: 6481944 Apply 1 Patch Topical QD on for 12 hours, off for 12 hours 09/08/19 25 025 Inactive sennosides 8.6 mg-docusate sodium 50 mg tablet RxNorm: 168112 Take 1 Tablet(s) Oral QD as needed 09/08/19 No Stop Date Active doxycycline hyclate 100 mg tablet RxNorm: 6805518 Take 1 Tablet(s) Oral BID 09/08/19 25 025 Inactive Calcium Antacid 200 mg (as calcium carbonate 500 mg) chewable tablet RxNorm: 850419 CHEW & SWALLOW 1 TABLET ORALLY DAILY 09/07/19 025 Inactive *URGENT REQUEST* PLEASE SEND REFILLS FOR CYCLE FILL. THANK YOU! hydrochlorothiazide 50 mg tablet RxNorm: 150260 1 TABLET ORALLY EVERY MORNING (DX: ESSENTIAL HYPERTENSION) 09/07/19 25 026 Active *URGENT REQUEST* PLEASE SEND REFILLS FOR CYCLE FILL. THANK YOU! albuterol sulfate 2.5 mg/3 mL (0.083 %) solution for nebulization RxNorm: 384933 Take 3 Milliliter(s) Inhalation BID and BID PRN for shortness of breath/cough. 09/01/19 25 026 Active furosemide 40 mg tablet RxNorm: 205639 Take 1 Tablet(s) Oral QD 08/20/19 25 025 Inactive furosemide 40 mg tablet RxNorm: 236165 Take 1 Tablet(s) Oral QD 08/20/19 25 025 Inactive Contour Next EZ Meter RxNorm: USE TO JENIFER T BLOOD GLUCOSE DAILY (DX: DIABETES TYPE 2) 08/18/19 25 025 Inactive Contour Next Test Strips RxNorm: Use 1 strip BID 08/17/19 25 026 Active carvedilol 6.25 mg tablet RxNorm: 851428 Take 1 Tablet(s) Oral BID 08/10/19 25 025 Inactive nystatin 100,000 unit/gram topical powder RxNorm: 693060 Gram(s) Topical apply to affected area BID 08/10/19 25 025 Inactive Lantus Solostar U-100 Insulin 100 unit/mL (3 mL) subcutaneous pen RxNorm: 397777 Unit(s) Subcutaneous inject 14 units every am 08/07/19 No Stop Date Active hydrochlorothiazide 50 mg tablet RxNorm: 153222 Take 1 Tablet(s) Oral QD 08/07/19 25 Inactive Vitron-C 65 mg iron-125 mg tablet,delayed release RxNorm: 8587298 1 Tablet(s) Oral QOD every other day 07/23/19 Inactive *URGENT REQUEST* PLEASE SEND REFILLS FOR CYCLE FILL. THANK YOU! Oyster Shell Calcium-500 500 mg (as carbonate 1,250 mg) tablet RxNorm: 514617 1 TABLET ORALLY DAILY FOR BONE HEALTH 07/09/19 Active PLEASE SEND REFILLS.PHARMA CY PLEASE PROFILE FOR FUTURE USE-[facility] Co Q-10 200 mg capsule RxNorm: 044836 1 CAPSULE ORALLY DAILY W/ 100MG CAP FOR A TOTAL DOSE OF 300MG (DX: SUPPLEMENT) 07/09/19 Active PLEASE SEND REFILLS.PHARMA CY PLEASE PROFILE FOR FUTURE USE-[facility] Trelegy Ellipta 200 mcg-62.5 mcg-25 mcg powder for inhalation RxNorm: 3378571 INHALE 1 PUFF INTO THE LUNGS EVERY 24 HOURS (DX: CHRONIC OBSTRUCTIVE PULMONARY DISEASE) 07/09/19 Active PLEASE SEND REFILLS.PHARMA CY PLEASE PROFILE FOR FUTURE USE-[facility] fluoxetine 10 mg capsule RxNorm: 913682 1 CAPSULE ORALLY DAILY (DX: DEPRESSION) (DX: ANXIETY) 07/09/19 25 Active PLEASE SEND REFILLS.PHARMA CY PLEASE PROFILE FOR FUTURE USE-[facility] irbesartan 150 mg tablet RxNorm: 978803 1 TABLET ORALLY 2 TIMES DAILY (DX: HYPERTENSION) 07/09/19 Active PLEASE SEND REFILLS.PHARMA CY PLEASE PROFILE FOR FUTURE USE-[facility] cholecalciferol (vitamin D3) 25 mcg (1,000 unit) tablet RxNorm: 258016 1 TABLET ORALLY DAILY (DX: VITAMIN D DEFICIENCY) 07/09/19 25 Active PLEASE SEND REFILLS.PHARMA CY PLEASE PROFILE FOR FUTURE USE-[facility] quetiapine 25 mg tablet RxNorm: 499946 1 TABLET ORALLY AT BEDTIME (DX: ANXIETY) 07/09/19 25 026 Active PLEASE SEND REFILLS.PHARMA CY PLEASE PROFILE FOR FUTURE USE-[facility] coenzyme Q10 100 mg capsule RxNorm: 969294 1 CAPSULE ORALLY DAILY W/ 200MG CAP FOR A TOTAL DOSE OF 300MG (DX: SUPPLEMENT) 07/09/19 25 026 Active PLEASE SEND REFILLS.PHARMA CY PLEASE PROFILE FOR FUTURE USE-[facility] donepezil 10 mg tablet RxNorm: 267531 1 TABLET ORALLY AT BEDTIME (DX: DEMENTIA) 07/09/19 25 026 Active PLEASE SEND REFILLS.PHARMA CY PLEASE PROFILE FOR FUTURE USE-[facility] alcohol swabs RxNorm: 160461 USE DIRECTED 07/09/19 25 026 Active PLEASE SEND REFILLS.PHARMA CY PLEASE PROFILE FOR FUTURE USE-[facility] Vitron-C 65 mg iron-125 mg tablet,delayed release RxNorm: 8261340 1 Tablet(s) Oral QOD every other day 07/09/19 25 025 Inactive PLEASE SEND REFILLS.PHARMA CY PLEASE PROFILE FOR FUTURE USE-[facility] oxybutynin chloride ER 10 mg tablet,extended release 24 hr RxNorm: 577385 1 TAB ORALLY EVERY EVENING FOR BLADDER SPASMS 07/09/19 25 025 Inactive PLEASE SEND REFILLS.PHARMA CY PLEASE PROFILE FOR FUTURE USE-[facility] cyanocobalamin (vit B-12) 500 mcg tablet RxNorm: 441559 1 TABLET ORALLY DAILY (DX: ANEMIA) 07/09/19 25 025 Inactive PLEASE SEND REFILLS.PHARMA CY PLEASE PROFILE FOR FUTURE USE-[facility] hydrochlorothiazide 25 mg tablet RxNorm: 968190 1 TABLET ORALLY DAILY (DX: HYPERTENSION) 07/09/19 25 025 Inactive PLEASE SEND REFILLS.PHARMA CY PLEASE PROFILE FOR FUTURE USE-[facility] Contour Next EZ Meter RxNorm: USE TO JENIFER T BLOOD GLUCOSE DAILY (DX: DIABETES TYPE 2) 07/09/19 25 025 Inactive PLEASE SEND REFILLS.PHARMA CY PLEASE PROFILE FOR FUTURE USE-[facility] Alejandra Protect (zinc oxide) 12 % topical cream RxNorm: 677349 APPLY TO RIGHT BUTTOCK 2 TIMES DAILY;APPLY TO RIGHT BUTTOCK NEEDED WITH SOILING 06/12/19 25 026 Active albuterol sulfate HFA 90 mcg/actuation aerosol inhaler RxNorm: 7408809 Inhale 2 Puff(s) Inhalation Q4H every four hours as needed 06/01/19 25 025 Inactive Alejandra Protect (zinc oxide) 12 % topical cream RxNorm: 691708 cream Topical apply to right buttocks BID and PRN with soiling 06/01/19 25 025 Inactive Lantus Solostar U-100 Insulin 100 unit/mL (3 mL) subcutaneous pen RxNorm: 788504 Unit(s) Subcutaneous prime en with 2 units, then inject 8 units SQ QD at bedtime 05/18/19 025 Inactive potassium chloride ER 10 mEq tablet,extended release RxNorm: 017648 Take 1 Tablet(s) Oral QD 04/12/19 25 No Stop Date Active fluoxetine 10 mg capsule RxNorm: 827576 Take 1 Capsule(s) Oral QD 04/12/19 025 Inactive hydrochlorothiazide 25 mg tablet RxNorm: 168193 Take 1 Tablet(s) Oral QD 04/12/19 025 Inactive Oyster Shell Calcium 500 mg (as calcium carbonate 1,250 mg) tablet RxNorm: 383182 Take 1 Tablet(s) Oral QD 04/12/19 025 Inactive Co Q-10 200 mg capsule RxNorm: 859533 Capsule(s) Oral take 1 cap po daily with 100mg tab to =300mg daily 04/12/19 025 Inactive Co Q-10 100 mg capsule RxNorm: 963231 Capsule(s) Oral take 1 cap daily along with 200mg tab to =300mg daily 04/12/19 025 Inactive quetiapine 25 mg tablet RxNorm: 107431 Take 1 Tablet(s) Oral QHS every night at bedtime 04/12/19 25 025 Inactive Vitamin D3 25 mcg (1,000 unit) tablet RxNorm: 015633 Take 1 Tablet(s) Oral QD 04/12/19 025 Inactive acetaminophen 500 mg tablet RxNorm: 229347 Take 2 Tablet(s) Oral TID as needed 04/12/19 025 Inactive donepezil 10 mg tablet RxNorm: 179074 Take 1 Tablet(s) Oral QHS every night at bedtime 04/12/19 025 Inactive cyanocobalamin (vit B-12) 500 mcg tablet RxNorm: 384053 Take 1 Tablet(s) Oral QD 04/12/19 025 Inactive oxybutynin chloride ER 10 mg tablet,extended release 24 hr RxNorm: 554404 Take 1 Tablet(s) Oral QPM every evening 04/12/19 025 Inactive irbesartan 150 mg tablet RxNorm: 513470 Take 1 Tablet(s) Oral BID 04/12/19 025 Inactive Trelegy Ellipta 200 mcg-62.5 mcg-25 mcg powder for inhalation RxNorm: 5916573 Inhale 1 Puff(s) Inhalation every 24 hours 04/12/19 025 Inactive Vitron-C 65 mg iron-125 mg tablet,delayed release RxNorm: 2869803 Take 1 Tablet(s) Oral QOD every other day 04/12/19 025 Inactive Eliquis 5 mg tablet RxNorm: 0475306 Take 1 Tablet(s) Oral BID 04/12/19 025 Inactive Lantus Solostar U-100 Insulin 100 unit/mL (3 mL) subcutaneous pen RxNorm: 617942 Unit(s) Subcutaneous prime en with 2 units, [...] Date DSCHRG MED/CURRENT MED MERGE CPT-4: 1111F 03/2024 Vital Signs Date Vital 09/07/2024 Blood Pressure 1: 144/79 Code: 8480-6 Heart Rate 1: 69 bpm Code: 8867-4 Respiratory Rate: 16 bpm SpO2: 90% Temperature: 36.3 (C) / 97.4 (F) Functional Status Functional / Cognitive Codes [...] Encounter Performer Location Location Address Codes Date ([address]7965) Home Visit - Est Pt, moderate Diagnosis: Unsteady gait[ICD10: R26.81] Diagnosis: Closed fracture of one rib with routine healing, unspecified laterality, subsequent encounter[SNOMED: 78706773] Diagnosis: Pneumonia due to infectious organism, unspecified laterality, unspecified part of lung[SNOMED: 483355705] Teresa Talbot [facility] [address] [place] [address] CPT-4: 88754 09/07/2024 Plan of Care Planned Activity Notes Codes Status Date Patient Education: Patient Medication Summary Completed 09/07/2024 Patient Education: Influenza Complet ed 09/07/2024 Appointment: Michela Talbot WPtel: [address] [id number] US F/U 08/03/2024 Appointment: Michela Talbot WPtel: 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 Previously lived independently in [place]. . Has one daughter Maggie who is involved in healthcare. PMH: History of breast cancer and melanoma, mixed dementia, depression, CAD, HLD, history of CVA/TIA, compression fx of L1 vertebrae, urinary incontinence, hearing loss, osteopeniaPrimary contact: Maggie Gallegos (Daughter)Code Status: DNR/SelectLab Schedule: Mar/SepSpecialists: [facility] (Q6M), Cardiology [facility] (MD Echo) 08/06/2024 Pneumonia due to infectious organism, unspecified laterality, unspecified part of lung Suspected residual pneumonia while treated inpatient for rib fracture/fall. Discharged with doxycycline course in the setting of COPD and CHF. Lungs CTA on exam and she is breathing well on her own at this time. Plan is to continue abx course and monitor for worsening breathing sx. She does have nebs prn now and continues on Trelegy for COPD. Closed fracture of one rib with routine healing, unspecified laterality, subsequent encounter S/p fall in memory care apartment. Discharged from hospital with prn oxycodone. Denies pain at rest. Monitor for pain exacerbation and d/c narcotic once controlled. Unsteady gait She had another fall in memory care and ultimately fractured a rib. Hospitalized for pain control and tx of residual pneumonia and ?UTI. Have requested records from [facility] although have not received them. She has a wheelchair and walker and staff have been encouraging her to use her call button for assistance with transfers. Fall occurred due to attempt to self transfer. Has been working with PT/OT. 09/07/2024
--- OUTSIDE RECORDS SUMMARY | 2024-09-21 18:50 | XMS_ITS | CCD ---
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 Name Role Phone Teresa Vivas Primary Care Provider Un available Unavailable Chronic Care Management Unavaila ble Summary Purpose DataExchange Insurance Providers Payer name Policy type / Coverage type Covered green party ID Effective Begin Date Effective End Date [employer] of [place] Medicare Risk [id number] Unknown Un known Family history Mother Diagnosis Age At Onset Stroke Unknown Social History Social History Element Codes Description Effec tive Dates Marital status Unknown 04/13/2024 Marital status Unknown 04/13/2024 Living arrangements Unknown Assisted Living 04/[address]: 1921396 Former smoker 04/[address]: 4728369 Former smoker 04/[address]: 714159519 No Alcohol Consum ption 04/13/[address]: 469202 Currently drin ks alcohol 04/13/2024 Sexually Active? [...] No Inactive Date A ctive SIMVASTATIN RxNorm: 05284 04/13/2024 No Inactive D ate Active Penicillin Unknown 04/13/2024 No Inactive Date A ctive CLOPIDOGREL Unknown 03/23/2024 No Inactive Date Active naproxen RxNorm: 7258 04/13/2024 No Inactive Date Active levofloxacin RxNorm: 27440 03/23/2024 No Inactive Date Active Levemir Unknown 03/23/2024 No Inactive Date Ac tive metformin RxNorm: 440889 04/13/2024 No Inactive Da te Active ESTROGENS Unknown 03/23/2024 No Inactive Date Ac tive Atenolol RxNorm: 1202 04/13/2024 No Inactive Date Active metoprolol succinate RxNorm: 468952 03/23/2024 No Inactive Date Active Januvia RxNorm: 897531 04/13/2024 No Inactive Da te Active furosemide RxNorm: 4603 03/23/2024 No Inactive Balaji e Active azithromycin RxNorm: 11002 04/13/2024 No Inactive Date Active losartan RxNorm: 257553 04/13/2024 No Inactive Da te Active NSAIDS Unknown 03/23/2024 No Inactive Date Ac tive Amlodipine RxNorm: 703308 04/13/2024 No Inactive D ate Active LISINOPRIL RxNorm: 53422 04/13/2024 No Inactive Da te Active PIOGLITAZONE DERIVATIVES Unknown 04/13/2024 No I nactive Date Active Problems Condition Codes Effective Dates Condition St atus Closed fracture of one rib w ith routine healing, unspecified laterality, subsequent encounter SNOMED CT: 94565533 ICD-10: S22.39XD ICD-9: V54.19 09/07/2024 Active Pneumonia due to infectious organism, unspecified laterality, unspecified part of lung SNOMED CT: 616948121 ICD-10: J18.9 ICD-9: 486 09/07/2024 Active Unsteady [...] ACP (advance care planning) SNOMED CT: 3 46500013 ICD-10: Z71.89 ICD-9: V65.49 06/01/2024 Active Adult general medical exam SNOMED CT: 30 1089937 ICD-10: Z00.00 ICD-9: V70.9 06/01/2024 Active Atherosclerosis of coronary artery of crow heart without angina pectoris, unspecified vessel or lesion type ICD-10: I25.10 ICD-9: 414.01 06/01/2024 Active 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 ICD-9: 311 06/01/[address]: 669945572 ICD-10: R54 ICD-9: 797 06/01/2024 Active Mixed [...] fracture of L1 vertebra, sequela SNOMED CT: 772694407 ICD-10: S32.010S ICD-9: 905.1 04/13/2024 Active Dementia in other diseases classified elsewhere, unspecified severity, without behavioral disturbance, psychotic disturbance, mood disturbance, and anxiety ICD-10: F02.80 04/13/[address]: 495014603 ICD-10: K57.90 ICD-9: 562.10 04/13/2024 Active History of breast cancer SNOMED CT: 4290 92412 ICD-10: Z85.3 ICD-9: V10.3 04/13/2024 Active History of melanoma SNOMED CT: 130296245 ICD-10: Z85.820 ICD-9: V10.82 04/13/2024 Active History of TIA (transient ischemic attack) SNOMED CT: 038228593 ICD-10: Z86.73 ICD-9: V12.54 04/13/2024 Active Hyperlipidemia, unspecified hyperlipidemia type SNOMED CT: 50505730 ICD-10: E78.5 ICD-9: 272.4 04/13/2024 Active Statin intolerance SNOMED CT: 393837881 ICD-10: Z78.9 ICD-9: 995.27 04/13/2024 Active Medications Medication Codes Instructions Start Date Stop Date Status Fill Instructions oxybutynin chloride ER 5 mg tablet,extended release 24 hr RxNorm: 785114 Take 1 Tablet(s) Oral QD 09/08/19 025 Inactive oxycodone 5 mg tablet RxNorm: 7051220 Take 1/2 Tablet(s) Oral every 6 hours as needed 09/08/19 No Stop Date Active acetaminophen 500 mg tablet RxNorm: 235658 Take 2 Tablet(s) Oral every 6 hours as needed 09/08/19 No Stop Date Active lidocaine 4 % topical patch RxNorm: 2380532 Apply 1 Patch Topical QD on for 12 hours, off for 12 hours 09/08/19 25 025 Inactive sennosides 8.6 mg-docusate sodium 50 mg tablet RxNorm: 475774 Take 1 Tablet(s) Oral QD as needed 09/08/19 No Stop Date Active doxycycline hyclate 100 mg tablet RxNorm: 5559582 Take 1 Tablet(s) Oral BID 09/08/19 25 025 Inactive Calcium Antacid 200 mg (as calcium carbonate 500 mg) chewable tablet RxNorm: 759610 CHEW & SWALLOW 1 TABLET ORALLY DAILY 09/07/19 025 Inactive *URGENT REQUEST* PLEASE SEND REFILLS FOR CYCLE FILL. THANK YOU! hydrochlorothiazide 50 mg tablet RxNorm: 500120 1 TABLET ORALLY EVERY MORNING (DX: ESSENTIAL HYPERTENSION) 09/07/19 25 026 Active *URGENT REQUEST* PLEASE SEND REFILLS FOR CYCLE FILL. THANK YOU! albuterol sulfate 2.5 mg/3 mL (0.083 %) solution for nebulization RxNorm: 762260 Take 3 Milliliter(s) Inhalation BID and BID PRN for shortness of breath/cough. 09/01/19 25 026 Active furosemide 40 mg tablet RxNorm: 721886 Take 1 Tablet(s) Oral QD 08/20/19 25 025 Inactive furosemide 40 mg tablet RxNorm: 991676 Take 1 Tablet(s) Oral QD 08/20/19 25 025 Inactive Contour Next EZ Meter RxNorm: USE TO JENIFER T BLOOD GLUCOSE DAILY (DX: DIABETES TYPE 2) 08/18/19 25 025 Inactive Contour Next Test Strips RxNorm: Use 1 strip BID 08/17/19 25 026 Active carvedilol 6.25 mg tablet RxNorm: 148884 Take 1 Tablet(s) Oral BID 08/10/19 25 025 Inactive nystatin 100,000 unit/gram topical powder RxNorm: 055446 Gram(s) Topical apply to affected area BID 08/10/19 25 025 Inactive Lantus Solostar U-100 Insulin 100 unit/mL (3 mL) subcutaneous pen RxNorm: 607669 Unit(s) Subcutaneous inject 14 units every am 08/07/19 No Stop Date Active hydrochlorothiazide 50 mg tablet RxNorm: 209859 Take 1 Tablet(s) Oral QD 08/07/19 25 Inactive Vitron-C 65 mg iron-125 mg tablet,delayed release RxNorm: 2623686 1 Tablet(s) Oral QOD every other day 07/23/19 Inactive *URGENT REQUEST* PLEASE SEND REFILLS FOR CYCLE FILL. THANK YOU! Oyster Shell Calcium-500 500 mg (as carbonate 1,250 mg) tablet RxNorm: 502769 1 TABLET ORALLY DAILY FOR BONE HEALTH 07/09/19 Active PLEASE SEND REFILLS.PHARMA CY PLEASE PROFILE FOR FUTURE USE-[facility] Co Q-10 200 mg capsule RxNorm: 195610 1 CAPSULE ORALLY DAILY W/ 100MG CAP FOR A TOTAL DOSE OF 300MG (DX: SUPPLEMENT) 07/09/19 Active PLEASE SEND REFILLS.PHARMA CY PLEASE PROFILE FOR FUTURE USE-[facility] Trelegy Ellipta 200 mcg-62.5 mcg-25 mcg powder for inhalation RxNorm: 2080485 INHALE 1 PUFF INTO THE LUNGS EVERY 24 HOURS (DX: CHRONIC OBSTRUCTIVE PULMONARY DISEASE) 07/09/19 Active PLEASE SEND REFILLS.PHARMA CY PLEASE PROFILE FOR FUTURE USE-[facility] fluoxetine 10 mg capsule RxNorm: 943453 1 CAPSULE ORALLY DAILY (DX: DEPRESSION) (DX: ANXIETY) 07/09/19 25 Active PLEASE SEND REFILLS.PHARMA CY PLEASE PROFILE FOR FUTURE USE-[facility] irbesartan 150 mg tablet RxNorm: 339506 1 TABLET ORALLY 2 TIMES DAILY (DX: HYPERTENSION) 07/09/19 Active PLEASE SEND REFILLS.PHARMA CY PLEASE PROFILE FOR FUTURE USE-[facility] cholecalciferol (vitamin D3) 25 mcg (1,000 unit) tablet RxNorm: 386051 1 TABLET ORALLY DAILY (DX: VITAMIN D DEFICIENCY) 07/09/19 25 Active PLEASE SEND REFILLS.PHARMA CY PLEASE PROFILE FOR FUTURE USE-[facility] quetiapine 25 mg tablet RxNorm: 461900 1 TABLET ORALLY AT BEDTIME (DX: ANXIETY) 07/09/19 25 026 Active PLEASE SEND REFILLS.PHARMA CY PLEASE PROFILE FOR FUTURE USE-[facility] coenzyme Q10 100 mg capsule RxNorm: 900433 1 CAPSULE ORALLY DAILY W/ 200MG CAP FOR A TOTAL DOSE OF 300MG (DX: SUPPLEMENT) 07/09/19 25 026 Active PLEASE SEND REFILLS.PHARMA CY PLEASE PROFILE FOR FUTURE USE-[facility] donepezil 10 mg tablet RxNorm: 785241 1 TABLET ORALLY AT BEDTIME (DX: DEMENTIA) 07/09/19 25 026 Active PLEASE SEND REFILLS.PHARMA CY PLEASE PROFILE FOR FUTURE USE-[facility] alcohol swabs RxNorm: 061330 USE DIRECTED 07/09/19 25 026 Active PLEASE SEND REFILLS.PHARMA CY PLEASE PROFILE FOR FUTURE USE-[facility] Vitron-C 65 mg iron-125 mg tablet,delayed release RxNorm: 4493314 1 Tablet(s) Oral QOD every other day 07/09/19 25 025 Inactive PLEASE SEND REFILLS.PHARMA CY PLEASE PROFILE FOR FUTURE USE-[facility] oxybutynin chloride ER 10 mg tablet,extended release 24 hr RxNorm: 619178 1 TAB ORALLY EVERY EVENING FOR BLADDER SPASMS 07/09/19 25 025 Inactive PLEASE SEND REFILLS.PHARMA CY PLEASE PROFILE FOR FUTURE USE-[facility] cyanocobalamin (vit B-12) 500 mcg tablet RxNorm: 245818 1 TABLET ORALLY DAILY (DX: ANEMIA) 07/09/19 25 025 Inactive PLEASE SEND REFILLS.PHARMA CY PLEASE PROFILE FOR FUTURE USE-[facility] hydrochlorothiazide 25 mg tablet RxNorm: 785581 1 TABLET ORALLY DAILY (DX: HYPERTENSION) 07/09/19 25 025 Inactive PLEASE SEND REFILLS.PHARMA CY PLEASE PROFILE FOR FUTURE USE-[facility] Contour Next EZ Meter RxNorm: USE TO JENIFER T BLOOD GLUCOSE DAILY (DX: DIABETES TYPE 2) 07/09/19 25 025 Inactive PLEASE SEND REFILLS.PHARMA CY PLEASE PROFILE FOR FUTURE USE-[facility] Alejandra Protect (zinc oxide) 12 % topical cream RxNorm: 899008 APPLY TO RIGHT BUTTOCK 2 TIMES DAILY;APPLY TO RIGHT BUTTOCK NEEDED WITH SOILING 06/12/19 25 026 Active albuterol sulfate HFA 90 mcg/actuation aerosol inhaler RxNorm: 5042342 Inhale 2 Puff(s) Inhalation Q4H every four hours as needed 06/01/19 25 025 Inactive Alejandra Protect (zinc oxide) 12 % topical cream RxNorm: 591813 cream Topical apply to right buttocks BID and PRN with soiling 06/01/19 25 025 Inactive Lantus Solostar U-100 Insulin 100 unit/mL (3 mL) subcutaneous pen RxNorm: 786713 Unit(s) Subcutaneous prime en with 2 units, then inject 8 units SQ QD at bedtime 05/18/19 025 Inactive potassium chloride ER 10 mEq tablet,extended release RxNorm: 353505 Take 1 Tablet(s) Oral QD 04/12/19 25 No Stop Date Active fluoxetine 10 mg capsule RxNorm: 135584 Take 1 Capsule(s) Oral QD 04/12/19 025 Inactive hydrochlorothiazide 25 mg tablet RxNorm: 032730 Take 1 Tablet(s) Oral QD 04/12/19 025 Inactive Oyster Shell Calcium 500 mg (as calcium carbonate 1,250 mg) tablet RxNorm: 670540 Take 1 Tablet(s) Oral QD 04/12/19 025 Inactive Co Q-10 200 mg capsule RxNorm: 633977 Capsule(s) Oral take 1 cap po daily with 100mg tab to =300mg daily 04/12/19 025 Inactive Co Q-10 100 mg capsule RxNorm: 483812 Capsule(s) Oral take 1 cap daily along with 200mg tab to =300mg daily 04/12/19 025 Inactive quetiapine 25 mg tablet RxNorm: 098518 Take 1 Tablet(s) Oral QHS every night at bedtime 04/12/19 25 025 Inactive Vitamin D3 25 mcg (1,000 unit) tablet RxNorm: 535031 Take 1 Tablet(s) Oral QD 04/12/19 025 Inactive acetaminophen 500 mg tablet RxNorm: 555472 Take 2 Tablet(s) Oral TID as needed 04/12/19 025 Inactive donepezil 10 mg tablet RxNorm: 106830 Take 1 Tablet(s) Oral QHS every night at bedtime 04/12/19 025 Inactive cyanocobalamin (vit B-12) 500 mcg tablet RxNorm: 112251 Take 1 Tablet(s) Oral QD 04/12/19 025 Inactive oxybutynin chloride ER 10 mg tablet,extended release 24 hr RxNorm: 324654 Take 1 Tablet(s) Oral QPM every evening 04/12/19 025 Inactive irbesartan 150 mg tablet RxNorm: 873899 Take 1 Tablet(s) Oral BID 04/12/19 025 Inactive Trelegy Ellipta 200 mcg-62.5 mcg-25 mcg powder for inhalation RxNorm: 3708475 Inhale 1 Puff(s) Inhalation every 24 hours 04/12/19 025 Inactive Vitron-C 65 mg iron-125 mg tablet,delayed release RxNorm: 0990030 Take 1 Tablet(s) Oral QOD every other day 04/12/19 025 Inactive Eliquis 5 mg tablet RxNorm: 1260224 Take 1 Tablet(s) Oral BID 04/12/19 025 Inactive Lantus Solostar U-100 Insulin 100 unit/mL (3 mL) subcutaneous pen RxNorm: 564596 Unit(s) Subcutaneous prime en with 2 units, [...] Encounter Performer Location Location Address Codes Date (38458) Home Visit - Est Pt, moderate Diagnosis: Unsteady gait[ICD10: R26.81] Diagnosis: Closed fracture of one rib with routine healing, unspecified laterality, subsequent encounter[SNOMED: 89730596] Diagnosis: Pneumonia due to infectious organism, unspecified laterality, unspecified part of lung[SNOMED: 885793272] Teresa Talbot [facility] [address] [place] [address] CPT-4: 30862 09/07/2024 Plan of Care Planned Activity Notes Codes Status Date Patient Education: Patient Medication Summary Completed 09/07/2024 Patient Education: Influenza Complet ed 09/07/2024 Appointment: Michela Talbot WPtel: [address] [id number] [place] F/U 08/03/2024 Appointment: Michela Talbot WPtel: [address] [id number] US CLOTH HAND 04/13/2024 Instructions Comment Date Alyx resides at [facility] since about 2021. Previously lived independently in [place]. . Has one daughter Maggie who is involved in healthcare. PMH: History of breast cancer and melanoma, mixed dementia, depression, CAD, HLD, history of CVA/TIA, compression fx of L1 vertebrae, urinary incontinence, hearing loss, osteopeniaPrimary contact: Maggie Gallegos (Daughter)Code Status: DNR/[facility] Schedule: Mar/SepSpecialists: [facility] (Q6M), Cardiology [facility] (MD Echo) 08/06/2024 Pneumonia due to [...] pneumonia and ?UTI. Have requested records from [facility] although have not received them. She has a wheelchair and walker and staff have been encouraging her to use her call button for assistance with transfers. Fall occurred due to attempt to self transfer. Has been working with PT/OT. 09/07/2024
--- OUTSIDE RECORDS SUMMARY | 2024-09-21 18:51 | XMS_ITS | CCD ---
Author Name Linda Vivas Address [address] [facility] [address] [place] [address] Phone Organization [facility] Phone Care Team Providers Care Economic Analysis Director Name Role Phone Teresa Vivas Primary Care Provider Un available Unavailable Chronic Care Management Unavaila ble Summary Purpose DataExchange Insurance Providers Payer name Policy type / Coverage type Covered republican ID Effective Begin Date Effective End Date BCBS of [facility] Medicare Risk [id number] Unknown Un known Family history Mother Diagnosis Age At Onset Stroke Unknown Social History Social History Element Codes Description Effec tive Dates Marital status Unknown 04/13/2024 Marital status Unknown 04/13/2024 Living arrangements Unknown Assisted Living 04/[address]: 5122256 Former smoker 04/[address]: 4669950 Former smoker 04/[address]: 793173832 No Alcohol Consum ption 04/13/[address]: 054359 Currently drin ks alcohol 04/13/2024 Sexually Active? [...] No Inactive Date A ctive SIMVASTATIN RxNorm: 15667 04/13/2024 No Inactive D ate Active Penicillin Unknown 04/13/2024 No Inactive Date A ctive CLOPIDOGREL Unknown 03/23/2024 No Inactive Date Active naproxen RxNorm: 7258 04/13/2024 No Inactive Date Active levofloxacin RxNorm: 03829 03/23/2024 No Inactive Date Active Levemir Unknown 03/23/2024 No Inactive Date Ac tive metformin RxNorm: 540636 04/13/2024 No Inactive Da te Active ESTROGENS Unknown 03/23/2024 No Inactive Date Ac tive Atenolol RxNorm: 1202 04/13/2024 No Inactive Date Active metoprolol succinate RxNorm: 890689 03/23/2024 No Inactive Date Active Januvia RxNorm: 136417 04/13/2024 No Inactive Da te Active furosemide RxNorm: 4603 03/23/2024 No Inactive Balaji e Active azithromycin RxNorm: 26438 04/13/2024 No Inactive Date Active losartan RxNorm: 844255 04/13/2024 No Inactive Da te Active NSAIDS Unknown 03/23/2024 No Inactive Date Ac tive Amlodipine RxNorm: 370310 04/13/2024 No Inactive D ate Active LISINOPRIL RxNorm: 45059 04/13/2024 No Inactive Da te Active PIOGLITAZONE DERIVATIVES Unknown 04/13/2024 No I nactive Date Active Problems Condition Codes Effective Dates Condition St atus Right sided facial pain SNOMED CT: 52863 009 ICD-10: R51.9 ICD-9: 784.0 09/21/2024 Active Pneumonia due to infectious organism, unspecified laterality, unspecified part of lung SNOMED CT: 813302412 ICD-10: J18.9 ICD-9: 486 09/21/2024 Resolved Closed fracture of one rib w ith routine healing, unspecified laterality, subsequent encounter SNOMED CT: 54303093 ICD-10: S22.39XD ICD-9: V54.19 09/07/2024 Active Unsteady gait ICD-10: R26.81 ICD-9: [...] ACP (advance care planning) SNOMED CT: 3 47959089 ICD-10: Z71.89 ICD-9: V65.49 06/01/2024 Active Adult general medical exam SNOMED CT: 30 3228021 ICD-10: Z00.00 ICD-9: V70.9 06/01/2024 Active Atherosclerosis of coronary artery of [place] heart without angina pectoris, unspecified vessel or lesion type ICD-10: I25.10 ICD-9: 414.01 06/01/2024 Active 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 ICD-9: 311 06/01/[address]: 152990027 ICD-10: R54 ICD-9: 797 06/01/2024 Active Mixed [...] fracture of L1 vertebra, sequela SNOMED CT: 974853463 ICD-10: S32.010S ICD-9: 905.1 04/13/2024 Active Dementia in other diseases classified elsewhere, unspecified severity, without behavioral disturbance, psychotic disturbance, mood disturbance, and anxiety ICD-10: F02.80 04/13/[address]: 254356578 ICD-10: K57.90 ICD-9: 562.10 04/13/2024 Active History of breast cancer SNOMED CT: 4290 72302 ICD-10: Z85.3 ICD-9: V10.3 04/13/2024 Active History of melanoma SNOMED CT: 451467736 ICD-10: Z85.820 ICD-9: V10.82 04/13/2024 Active History of TIA (transient ischemic attack) SNOMED CT: 885641445 ICD-10: Z86.73 ICD-9: V12.54 04/13/2024 Active Hyperlipidemia, unspecified hyperlipidemia type SNOMED CT: 79500688 ICD-10: E78.5 ICD-9: 272.4 04/13/2024 Active Statin intolerance SNOMED CT: 011186855 ICD-10: Z78.9 ICD-9: 995.27 04/13/2024 Active Medications Medication Codes Instructions Start Date Stop Date Status Fill Instructions lidocaine 5 % topical patch RxNorm: 3669887 Apply 1 adhesive patch,medicated Topical QD on for 12 hours, off for 12 hours 09/22/19 No Stop Date Active carvedilol 6.25 mg tablet RxNorm: 881147 1 Tablet(s) Oral BID 09/21/19 25 026 Active *URGENT REQUEST* PLEASE SEND REFILLS FOR CYCLE FILL. THANK YOU! oxybutynin chloride ER 5 mg tablet,extended release 24 hr RxNorm: 491927 1 Tablet(s) Oral QD 09/16/19 25 026 Active *URGENT REQUEST* PLEASE SEND REFILLS FOR CYCLE FILL. THANK YOU! oxycodone 5 mg tablet RxNorm: 0654451 Take 1/2 Tablet(s) Oral every 6 hours as needed 09/08/19 25 No Stop Date Active acetaminophen 500 mg tablet RxNorm: 022883 Take 2 Tablet(s) Oral every 6 hours as needed 09/08/19 25 No Stop Date Active sennosides 8.6 mg-docusate sodium 50 mg tablet RxNorm: 517253 Take 1 Tablet(s) Oral QD as needed 09/08/19 25 No Stop Date Active oxybutynin chloride ER 5 mg tablet,extended release 24 hr RxNorm: 641138 Take 1 Tablet(s) Oral QD 09/08/19 25 025 Inactive lidocaine 4 % topical patch RxNorm: 1942574 Apply 1 Patch Topical QD on for 12 hours, off for 12 hours 09/08/19 25 025 Inactive doxycycline hyclate 100 mg tablet RxNorm: 0733314 Take 1 Tablet(s) Oral BID 09/08/19 25 025 Inactive hydrochlorothiazide 50 mg tablet RxNorm: 185664 1 TABLET ORALLY EVERY MORNING (DX: ESSENTIAL HYPERTENSION) 09/07/19 25 026 Active *URGENT REQUEST* PLEASE SEND REFILLS FOR CYCLE FILL. THANK YOU! Calcium Antacid 200 mg (as calcium carbonate 500 mg) chewable tablet RxNorm: 180221 CHEW & SWALLOW 1 TABLET ORALLY DAILY 09/07/19 25 025 Inactive *URGENT REQUEST* PLEASE SEND REFILLS FOR CYCLE FILL. THANK YOU! albuterol sulfate 2.5 mg/3 mL (0.083 %) solution for nebulization RxNorm: 879256 Take 3 Milliliter(s) Inhalation BID and BID PRN for shortness of breath/cough. 09/01/19 25 026 Active furosemide 40 mg tablet RxNorm: 753337 Take 1 Tablet(s) Oral QD 08/20/19 25 025 Inactive furosemide 40 mg tablet RxNorm: 366531 Take 1 Tablet(s) Oral QD 08/20/19 25 025 Inactive Contour Next EZ Meter RxNorm: USE TO JENIFER T BLOOD GLUCOSE DAILY (DX: DIABETES TYPE 2) 08/18/19 25 025 Inactive Contour Next Test Strips RxNorm: Use 1 strip BID 08/17/19 25 026 Active carvedilol 6.25 mg tablet RxNorm: 872148 Take 1 Tablet(s) Oral BID 08/10/19 25 025 Inactive nystatin 100,000 unit/gram topical powder RxNorm: 230959 Gram(s) Topical apply to affected area BID 08/10/19 25 025 Inactive Lantus Solostar U-100 Insulin 100 unit/mL (3 mL) subcutaneous pen RxNorm: 958924 Unit(s) Subcutaneous inject 14 units every am 08/07/19 25 No Stop Date Active hydrochlorothiazide 50 mg tablet RxNorm: 425183 Take 1 Tablet(s) Oral QD 08/07/19 25 025 Inactive Vitron-C 65 mg iron-125 mg tablet,delayed release RxNorm: 1286112 1 Tablet(s) Oral QOD every other day 07/23/19 25 025 Inactive *URGENT REQUEST* PLEASE SEND REFILLS FOR CYCLE FILL. THANK YOU! Oyster Shell Calcium-500 500 mg (as carbonate 1,250 mg) tablet RxNorm: 779892 1 TABLET ORALLY DAILY FOR BONE HEALTH 07/09/19 25 026 Active PLEASE SEND REFILLS.Tujia PLEASE PROFILE FOR FUTURE USE-[employer] Co Q-10 200 mg capsule RxNorm: 509995 1 CAPSULE ORALLY DAILY W/ 100MG CAP FOR A TOTAL DOSE OF 300MG (DX: SUPPLEMENT) 07/09/19 25 026 Active PLEASE SEND REFILLS.Tujia PLEASE PROFILE FOR FUTURE USE-[employer] Trelegy Ellipta 200 mcg-62.5 mcg-25 mcg powder for inhalation RxNorm: 2332705 INHALE 1 PUFF INTO THE LUNGS EVERY 24 HOURS (DX: CHRONIC OBSTRUCTIVE PULMONARY DISEASE) 07/09/19 25 04/25/2 026 Active PLEASE SEND REFILLS.PHARMA CY PLEASE PROFILE FOR FUTURE USE-[facility] fluoxetine 10 mg capsule RxNorm: 101122 1 CAPSULE ORALLY DAILY (DX: DEPRESSION) (DX: ANXIETY) 07/09/19 Active PLEASE SEND REFILLS.PHARMA CY PLEASE PROFILE FOR FUTURE USE-[facility] irbesartan 150 mg tablet RxNorm: 425457 1 TABLET ORALLY 2 TIMES DAILY (DX: HYPERTENSION) 07/09/19 Active PLEASE SEND REFILLS.PHARMA CY PLEASE PROFILE FOR FUTURE USE-[facility] cholecalciferol (vitamin D3) 25 mcg (1,000 unit) tablet RxNorm: 537469 1 TABLET ORALLY DAILY (DX: VITAMIN D DEFICIENCY) 07/09/19 Active PLEASE SEND REFILLS.PHARMA CY PLEASE PROFILE FOR FUTURE USE-[facility] quetiapine 25 mg tablet RxNorm: 071035 1 TABLET ORALLY AT BEDTIME (DX: ANXIETY) 07/09/19 Active PLEASE SEND REFILLS.PHARMA CY PLEASE PROFILE FOR FUTURE USE-[facility] coenzyme Q10 100 mg capsule RxNorm: 529772 1 CAPSULE ORALLY DAILY W/ 200MG CAP FOR A TOTAL DOSE OF 300MG (DX: SUPPLEMENT) 07/09/19 Active PLEASE SEND REFILLS.PHARMA CY PLEASE PROFILE FOR FUTURE USE-[facility] donepezil 10 mg tablet RxNorm: 873943 1 TABLET ORALLY AT BEDTIME (DX: DEMENTIA) 07/09/19 Active PLEASE SEND REFILLS.PHARMA CY PLEASE PROFILE FOR FUTURE USE-[facility] alcohol swabs RxNorm: 074410 USE DIRECTED 07/09/19 Active PLEASE SEND REFILLS.PHARMA CY PLEASE PROFILE FOR FUTURE USE-[facility] Vitron-C 65 mg iron-125 mg tablet,delayed release RxNorm: 6256205 1 Tablet(s) Oral QOD every other day 07/09/19 25 Inactive PLEASE SEND REFILLS.PHARMA CY PLEASE PROFILE FOR FUTURE USE-[facility] oxybutynin chloride ER 10 mg tablet,extended release 24 hr RxNorm: 579170 1 TAB ORALLY EVERY EVENING FOR BLADDER SPASMS 07/09/19 025 Inactive PLEASE SEND REFILLS.PHARMA CY PLEASE PROFILE FOR FUTURE USE-[facility] cyanocobalamin (vit B-12) 500 mcg tablet RxNorm: 277469 1 TABLET ORALLY DAILY (DX: ANEMIA) 07/09/19 25 025 Inactive PLEASE SEND REFILLS.PHARMA CY PLEASE PROFILE FOR FUTURE USE-[facility] hydrochlorothiazide 25 mg tablet RxNorm: 640843 1 TABLET ORALLY DAILY (DX: HYPERTENSION) 07/09/19 25 025 Inactive PLEASE SEND REFILLS.PHARMA CY PLEASE PROFILE FOR FUTURE USE-[facility] Contour Next EZ Meter RxNorm: USE TO JENIFER T BLOOD GLUCOSE DAILY (DX: DIABETES TYPE 2) 07/09/19 25 025 Inactive PLEASE SEND REFILLS.PHARMA CY PLEASE PROFILE FOR FUTURE USE-[facility] Alejandra Protect (zinc oxide) 12 % topical cream RxNorm: 691675 APPLY TO RIGHT BUTTOCK 2 TIMES DAILY;APPLY TO RIGHT BUTTOCK NEEDED WITH SOILING 06/12/19 25 026 Active albuterol sulfate HFA 90 mcg/actuation aerosol inhaler RxNorm: 1528848 Inhale 2 Puff(s) Inhalation Q4H every four hours as needed 06/01/19 25 025 Inactive Alejandra Protect (zinc oxide) 12 % topical cream RxNorm: 510891 cream Topical apply to right buttocks BID and PRN with soiling 06/01/19 25 025 Inactive Lantus Solostar U-100 Insulin 100 unit/mL (3 mL) subcutaneous pen RxNorm: 772269 Unit(s) Subcutaneous prime en with 2 units, then inject 8 units SQ QD at bedtime 05/18/19 25 025 Inactive potassium chloride ER 10 mEq tablet,extended release RxNorm: 062339 Take 1 Tablet(s) Oral QD 04/12/19 25 No Stop Date Active fluoxetine 10 mg capsule RxNorm: 183512 Take 1 Capsule(s) Oral QD 04/12/19 25 025 Inactive hydrochlorothiazide 25 mg tablet RxNorm: 026976 Take 1 Tablet(s) Oral QD 04/12/19 25 025 Inactive Oyster Shell Calcium 500 mg (as calcium carbonate 1,250 mg) tablet RxNorm: 338228 Take 1 Tablet(s) Oral QD 04/12/19 025 Inactive Co Q-10 200 mg capsule RxNorm: 955761 Capsule(s) Oral take 1 cap po daily with 100mg tab to =300mg daily 04/12/19 025 Inactive Co Q-10 100 mg capsule RxNorm: 994424 Capsule(s) Oral take 1 cap daily along with 200mg tab to =300mg daily 04/12/19 025 Inactive quetiapine 25 mg tablet RxNorm: 524034 Take 1 Tablet(s) Oral QHS every night at bedtime 04/12/19 025 Inactive Vitamin D3 25 mcg (1,000 unit) tablet RxNorm: 240936 Take 1 Tablet(s) Oral QD 04/12/19 025 Inactive acetaminophen 500 mg tablet RxNorm: 090252 Take 2 Tablet(s) Oral TID as needed 04/12/19 025 Inactive donepezil 10 mg tablet RxNorm: 500313 Take 1 Tablet(s) Oral QHS every night at bedtime 04/12/19 025 Inactive cyanocobalamin (vit B-12) 500 mcg tablet RxNorm: 268081 Take 1 Tablet(s) Oral QD 04/12/19 025 Inactive oxybutynin chloride ER 10 mg tablet,extended release 24 hr RxNorm: 116407 Take 1 Tablet(s) Oral QPM every evening 04/12/19 025 Inactive irbesartan 150 mg tablet RxNorm: 264098 Take 1 Tablet(s) Oral BID 04/12/19 025 Inactive Trelegy Ellipta 200 mcg-62.5 mcg-25 mcg powder for inhalation RxNorm: 3024801 Inhale 1 Puff(s) Inhalation every 24 hours 04/12/19 025 Inactive Vitron-C 65 mg iron-125 mg tablet,delayed release RxNorm: 3563965 Take 1 Tablet(s) Oral QOD every other day 04/12/19 025 Inactive Eliquis 5 mg tablet RxNorm: 2089392 Take 1 Tablet(s) Oral BID 04/12/19 25 025 Inactive Lantus Solostar U-100 Insulin 100 unit/mL (3 mL) subcutaneous pen RxNorm: 108144 Unit(s) Subcutaneous prime en with 2 units, [...] 09 1.0 1994 Vital Signs Date Vital 09/21/2024 Blood Pressure 1: 142/73 Code: 8480-6 Heart Rate 1: 77 bpm Code: 8867-4 Respiratory Rate: 16 bpm SpO2: 96% Temperature: 36.9 (C) / 98.4 (F) Functional Status Functional / Cognitive Codes [...] Encounter Performer Location Location Address Codes Date () Home Visit - Est Pt, moderate Diagnosis: Right sided facial pain[SNOMED: 55757593] Teresa Tal[facility] [place] [address] CPT-4: 60087 09/21/2024 Plan of Care Planned Activity Notes Codes Status Date Patient Education: Patient Medication Summary Completed 09/21/2024 Patient Education: Influenza Complet ed 09/21/2024 Appointment: Michela Talbot WPtel: [phone] F/U 08/03/2024 Appointment: Michela Talbot WPtel: [phone] ALBERENE [facility]TER 04/13/2024 Instructions Comment Date Alyx resides at [facility] since about 2021. Previously lived independently in [place]. . Has one daughter Maggie who is involved in healthcare. PMH: History of breast cancer and melanoma, mixed dementia, depression, CAD, HLD, history of CVA/TIA, compression fx of L1 vertebrae, urinary incontinence, hearing loss, osteopeniaPrimary contact: Maggie Gallegos (Daughter)Code Status: DNR/[facility] Schedule: Mar/SepSpecialists: [facility] (Q6M), Cardiology [facility] (MD Echo) 08/06/2024
--- OUTSIDE RECORDS SUMMARY | 2024-09-21 18:51 | XMS_ITS | CCD ---
Author Name Linda Vivas Address [address] [facility] [address] [place] [address] Phone Organization [facility] Phone Care Team Providers Care Personnel Worker Name Role Phone Teresa Vivas Primary Care Provider Un available Unavailable Chronic Care Management Unavaila ble Summary Purpose DataExchange Insurance Providers Payer name Policy type / Coverage type Covered republican ID Effective Begin Date Effective End Date BCBS of [facility] Medicare Risk [id number] Unknown Un known Family history Mother Diagnosis Age At Onset Stroke Unknown Social History Social History Element Codes Description Effec tive Dates Marital status Unknown 04/13/2024 Marital status Unknown 04/13/2024 Living arrangements Unknown Assisted Living 04/[address]: 4161546 Former smoker 04/[address]: 5902459 Former smoker 04/[address]: 684497441 No Alcohol Consum ption 04/13/[address]: 767160 Currently drin ks alcohol 04/13/2024 Sexually Active? [...] No Inactive Date A ctive SIMVASTATIN RxNorm: 55060 04/13/2024 No Inactive D ate Active Penicillin Unknown 04/13/2024 No Inactive Date A ctive CLOPIDOGREL Unknown 03/23/2024 No Inactive Date Active naproxen RxNorm: 7258 04/13/2024 No Inactive Date Active levofloxacin RxNorm: 42684 03/23/2024 No Inactive Date Active Levemir Unknown 03/23/2024 No Inactive Date Ac tive metformin RxNorm: 865763 04/13/2024 No Inactive Da te Active ESTROGENS Unknown 03/23/2024 No Inactive Date Ac tive Atenolol RxNorm: 1202 04/13/2024 No Inactive Date Active metoprolol succinate RxNorm: 168890 03/23/2024 No Inactive Date Active Januvia RxNorm: 439070 04/13/2024 No Inactive Da te Active furosemide RxNorm: 4603 03/23/2024 No Inactive Balaji e Active azithromycin RxNorm: 76658 04/13/2024 No Inactive Date Active losartan RxNorm: 499228 04/13/2024 No Inactive Da te Active NSAIDS Unknown 03/23/2024 No Inactive Date Ac tive Amlodipine RxNorm: 588059 04/13/2024 No Inactive D ate Active LISINOPRIL RxNorm: 14476 04/13/2024 No Inactive Da te Active PIOGLITAZONE DERIVATIVES Unknown 04/13/2024 No I nactive Date Active Problems Condition Codes Effective Dates Condition St atus Right sided facial pain SNOMED CT: 39912 009 ICD-10: R51.9 ICD-9: 784.0 09/21/2024 Active Pneumonia due to infectious organism, unspecified laterality, unspecified part of lung SNOMED CT: 383796475 ICD-10: J18.9 ICD-9: 486 09/21/2024 Resolved Closed fracture of one rib w ith routine healing, unspecified laterality, subsequent encounter SNOMED CT: 47413636 ICD-10: S22.39XD ICD-9: V54.19 09/07/2024 Active Unsteady [...] longterm insulin use ICD-10: E11.9 ICD-9: 250.00 08/31/2024 [...] ACP (advance care planning) SNOMED CT: 3 23929028 ICD-10: Z71.89 ICD-9: V65.49 06/01/2024 Active Adult general medical exam SNOMED CT: 30 0932864 ICD-10: Z00.00 ICD-9: V70.9 06/01/2024 Active Atherosclerosis of coronary artery of [place] heart without angina pectoris, unspecified vessel or lesion type ICD-10: I25.10 ICD-9: 414.01 06/01/2024 Active 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 ICD-9: 311 06/01/[address]: 908358385 ICD-10: R54 ICD-9: 797 06/01/2024 Active Mixed [...] fracture of L1 vertebra, sequela SNOMED CT: 858663537 ICD-10: S32.010S ICD-9: 905.1 04/13/2024 Active Dementia in other diseases classified elsewhere, unspecified severity, without behavioral disturbance, psychotic disturbance, mood disturbance, and anxiety ICD-10: F02.80 04/13/[address]: 936320495 ICD-10: K57.90 ICD-9: 562.10 04/13/2024 Active History of breast cancer SNOMED CT: 4290 44507 ICD-10: Z85.3 ICD-9: V10.3 04/13/2024 Active History of melanoma SNOMED CT: 935424161 ICD-10: Z85.820 ICD-9: V10.82 04/13/2024 Active History of TIA (transient ischemic attack) SNOMED CT: 490345243 ICD-10: Z86.73 ICD-9: V12.54 04/13/2024 Active Hyperlipidemia, unspecified hyperlipidemia type SNOMED CT: 26602075 ICD-10: E78.5 ICD-9: 272.4 04/13/2024 Active Statin intolerance SNOMED CT: 952035118 ICD-10: Z78.9 ICD-9: 995.27 04/13/2024 Active Medications Medication Codes Instructions Start Date Stop Date Status Fill Instructions lidocaine 5 % topical patch RxNorm: 3861684 Apply 1 adhesive patch,medicated Topical QD on for 12 hours, off for 12 hours 09/22/19 No Stop Date Active carvedilol 6.25 mg tablet RxNorm: 570313 1 Tablet(s) Oral BID 09/21/19 25 026 Active *URGENT REQUEST* PLEASE SEND REFILLS FOR CYCLE FILL. THANK YOU! oxybutynin chloride ER 5 mg tablet,extended release 24 hr RxNorm: 157574 1 Tablet(s) Oral QD 09/16/19 25 026 Active *URGENT REQUEST* PLEASE SEND REFILLS FOR CYCLE FILL. THANK YOU! oxycodone 5 mg tablet RxNorm: 3010191 Take 1/2 Tablet(s) Oral every 6 hours as needed 09/08/19 25 No Stop Date Active acetaminophen 500 mg tablet RxNorm: 197598 Take 2 Tablet(s) Oral every 6 hours as needed 09/08/19 25 No Stop Date Active sennosides 8.6 mg-docusate sodium 50 mg tablet RxNorm: 212110 Take 1 Tablet(s) Oral QD as needed 09/08/19 25 No Stop Date Active oxybutynin chloride ER 5 mg tablet,extended release 24 hr RxNorm: 110020 Take 1 Tablet(s) Oral QD 09/08/19 25 025 Inactive lidocaine 4 % topical patch RxNorm: 7724859 Apply 1 Patch Topical QD on for 12 hours, off for 12 hours 09/08/19 25 025 Inactive doxycycline hyclate 100 mg tablet RxNorm: 9181919 Take 1 Tablet(s) Oral BID 09/08/19 25 025 Inactive hydrochlorothiazide 50 mg tablet RxNorm: 062922 1 TABLET ORALLY EVERY MORNING (DX: ESSENTIAL HYPERTENSION) 09/07/19 25 026 Active *URGENT REQUEST* PLEASE SEND REFILLS FOR CYCLE FILL. THANK YOU! Calcium Antacid 200 mg (as calcium carbonate 500 mg) chewable tablet RxNorm: 004919 CHEW & SWALLOW 1 TABLET ORALLY DAILY 09/07/19 25 025 Inactive *URGENT REQUEST* PLEASE SEND REFILLS FOR CYCLE FILL. THANK YOU! albuterol sulfate 2.5 mg/3 mL (0.083 %) solution for nebulization RxNorm: 097854 Take 3 Milliliter(s) Inhalation BID and BID PRN for shortness of breath/cough. 09/01/19 25 026 Active furosemide 40 mg tablet RxNorm: 233353 Take 1 Tablet(s) Oral QD 08/20/19 25 025 Inactive furosemide 40 mg tablet RxNorm: 574220 Take 1 Tablet(s) Oral QD 08/20/19 25 025 Inactive Contour Next EZ Meter RxNorm: USE TO JENIFER T BLOOD GLUCOSE DAILY (DX: DIABETES TYPE 2) 08/18/19 25 025 Inactive Contour Next Test Strips RxNorm: Use 1 strip BID 08/17/19 25 026 Active carvedilol 6.25 mg tablet RxNorm: 802828 Take 1 Tablet(s) Oral BID 08/10/19 25 025 Inactive nystatin 100,000 unit/gram topical powder RxNorm: 295344 Gram(s) Topical apply to affected area BID 08/10/19 25 025 Inactive Lantus Solostar U-100 Insulin 100 unit/mL (3 mL) subcutaneous pen RxNorm: 858088 Unit(s) Subcutaneous inject 14 units every am 08/07/19 25 No Stop Date Active hydrochlorothiazide 50 mg tablet RxNorm: 727417 Take 1 Tablet(s) Oral QD 08/07/19 25 025 Inactive Vitron-C 65 mg iron-125 mg tablet,delayed release RxNorm: 9524937 1 Tablet(s) Oral QOD every other day 07/23/19 25 025 Inactive *URGENT REQUEST* PLEASE SEND REFILLS FOR CYCLE FILL. THANK YOU! Oyster Shell Calcium-500 500 mg (as carbonate 1,250 mg) tablet RxNorm: 970178 1 TABLET ORALLY DAILY FOR BONE HEALTH 07/09/19 25 026 Active PLEASE SEND REFILLS.[facility] PLEASE PROFILE FOR FUTURE USE-GravitantRec ords Co Q-10 200 mg capsule RxNorm: 192204 1 CAPSULE ORALLY DAILY W/ 100MG CAP FOR A TOTAL DOSE OF 300MG (DX: SUPPLEMENT) 07/09/19 25 026 Active PLEASE SEND REFILLS.[facility] PLEASE PROFILE FOR FUTURE USE-GravitantRec ords Trelegy Ellipta 200 mcg-62.5 mcg-25 mcg powder for inhalation RxNorm: 5695896 INHALE 1 PUFF INTO THE LUNGS EVERY 24 HOURS (DX: CHRONIC OBSTRUCTIVE PULMONARY DISEASE) 07/09/19 25 04/25/2 026 Active PLEASE SEND REFILLS.PHARMA CY PLEASE PROFILE FOR FUTURE USE-MedicalRec ords fluoxetine 10 mg capsule RxNorm: 273471 1 CAPSULE ORALLY DAILY (DX: DEPRESSION) (DX: ANXIETY) 07/09/19 Active PLEASE SEND REFILLS.PHARMA CY PLEASE PROFILE FOR FUTURE USE-MedicalRec ords irbesartan 150 mg tablet RxNorm: 883932 1 TABLET ORALLY 2 TIMES DAILY (DX: HYPERTENSION) 07/09/19 Active PLEASE SEND REFILLS.PHARMA CY PLEASE PROFILE FOR FUTURE USE-Medical[facility] ords cholecalciferol (vitamin D3) 25 mcg (1,000 unit) tablet RxNorm: 380969 1 TABLET ORALLY DAILY (DX: VITAMIN D DEFICIENCY) 07/09/19 Active PLEASE SEND REFILLS.PHARMA CY PLEASE PROFILE FOR FUTURE USE-MedicalRec ords quetiapine 25 mg tablet RxNorm: 722077 1 TABLET ORALLY AT BEDTIME (DX: ANXIETY) 07/09/19 Active PLEASE SEND REFILLS.PHARMA CY PLEASE PROFILE FOR FUTURE USE-MedicalRec ords coenzyme Q10 100 mg capsule RxNorm: 917806 1 CAPSULE ORALLY DAILY W/ 200MG CAP FOR A TOTAL DOSE OF 300MG (DX: SUPPLEMENT) 07/09/19 Active PLEASE SEND REFILLS.PHARMA CY PLEASE PROFILE FOR FUTURE USE-MedicalRec ords donepezil 10 mg tablet RxNorm: 006631 1 TABLET ORALLY AT BEDTIME (DX: DEMENTIA) 07/09/19 Active PLEASE SEND REFILLS.PHARMA CY PLEASE PROFILE FOR FUTURE USE-[facility] or[facility] alcohol swabs RxNorm: 821453 USE DIRECTED 07/09/19 Active PLEASE SEND REFILLS.PHARMA CY PLEASE PROFILE FOR FUTURE USE-[facility] Vitron-C 65 mg iron-125 mg tablet,delayed release RxNorm: 2129036 1 Tablet(s) Oral QOD every other day 07/09/19 25 Inactive PLEASE SEND REFILLS.PHARMA CY PLEASE PROFILE FOR FUTURE USE-Medical[facility] ords oxybutynin chloride ER 10 mg tablet,extended release 24 hr RxNorm: 440372 1 TAB ORALLY EVERY EVENING FOR BLADDER SPASMS 07/09/19 025 Inactive PLEASE SEND REFILLS.PHARMA CY PLEASE PROFILE FOR FUTURE USE-[facility] or[facility] cyanocobalamin (vit B-12) 500 mcg tablet RxNorm: 094140 1 TABLET ORALLY DAILY (DX: ANEMIA) 07/09/19 25 025 Inactive PLEASE SEND REFILLS.PHARMA CY PLEASE PROFILE FOR FUTURE USE-MedicalRec ords hydrochlorothiazide 25 mg tablet RxNorm: 526110 1 TABLET ORALLY DAILY (DX: HYPERTENSION) 07/09/19 25 025 Inactive PLEASE SEND REFILLS.PHARMA CY PLEASE PROFILE FOR FUTURE USE-MedicalRec ords Contour Next EZ Meter RxNorm: USE TO JENIFER T BLOOD GLUCOSE DAILY (DX: DIABETES TYPE 2) 07/09/19 25 025 Inactive PLEASE SEND REFILLS.PHARMA CY PLEASE PROFILE FOR FUTURE USE-MedicalRec ords Alejandra Protect (zinc oxide) 12 % topical cream RxNorm: 741481 APPLY TO RIGHT BUTTOCK 2 TIMES DAILY;APPLY TO RIGHT BUTTOCK NEEDED WITH SOILING 06/12/19 25 026 Active albuterol sulfate HFA 90 mcg/actuation aerosol inhaler RxNorm: 4843696 Inhale 2 Puff(s) Inhalation Q4H every four hours as needed 06/01/19 25 025 Inactive Alejandra Protect (zinc oxide) 12 % topical cream RxNorm: 291250 cream Topical apply to right buttocks BID and PRN with soiling 06/01/19 25 025 Inactive Lantus Solostar U-100 Insulin 100 unit/mL (3 mL) subcutaneous pen RxNorm: 833408 Unit(s) Subcutaneous prime en with 2 units, then inject 8 units SQ QD at bedtime 05/18/19 25 025 Inactive potassium chloride ER 10 mEq tablet,extended release RxNorm: 591714 Take 1 Tablet(s) Oral QD 04/12/19 25 No Stop Date Active fluoxetine 10 mg capsule RxNorm: 946580 Take 1 Capsule(s) Oral QD 04/12/19 25 025 Inactive hydrochlorothiazide 25 mg tablet RxNorm: 007714 Take 1 Tablet(s) Oral QD 04/12/19 25 025 Inactive Oyster Shell Calcium 500 mg (as calcium carbonate 1,250 mg) tablet RxNorm: 680341 Take 1 Tablet(s) Oral QD 04/12/19 025 Inactive Co Q-10 200 mg capsule RxNorm: 118148 Capsule(s) Oral take 1 cap po daily with 100mg tab to =300mg daily 04/12/19 025 Inactive Co Q-10 100 mg capsule RxNorm: 345276 Capsule(s) Oral take 1 cap daily along with 200mg tab to =300mg daily 04/12/19 025 Inactive quetiapine 25 mg tablet RxNorm: 667822 Take 1 Tablet(s) Oral QHS every night at bedtime 04/12/19 025 Inactive Vitamin D3 25 mcg (1,000 unit) tablet RxNorm: 615873 Take 1 Tablet(s) Oral QD 04/12/19 025 Inactive acetaminophen 500 mg tablet RxNorm: 081027 Take 2 Tablet(s) Oral TID as needed 04/12/19 025 Inactive donepezil 10 mg tablet RxNorm: 835633 Take 1 Tablet(s) Oral QHS every night at bedtime 04/12/19 025 Inactive cyanocobalamin (vit B-12) 500 mcg tablet RxNorm: 310914 Take 1 Tablet(s) Oral QD 04/12/19 025 Inactive oxybutynin chloride ER 10 mg tablet,extended release 24 hr RxNorm: 838851 Take 1 Tablet(s) Oral QPM every evening 04/12/19 025 Inactive irbesartan 150 mg tablet RxNorm: 545974 Take 1 Tablet(s) Oral BID 04/12/19 025 Inactive Trelegy Ellipta 200 mcg-62.5 mcg-25 mcg powder for inhalation RxNorm: 5329697 Inhale 1 Puff(s) Inhalation every 24 hours 04/12/19 025 Inactive Vitron-C 65 mg iron-125 mg tablet,delayed release RxNorm: 6056594 Take 1 Tablet(s) Oral QOD every other day 04/12/19 025 Inactive Eliquis 5 mg tablet RxNorm: 6107368 Take 1 Tablet(s) Oral BID 04/12/19 25 025 Inactive Lantus Solostar U-100 Insulin 100 unit/mL (3 mL) subcutaneous pen RxNorm: 523318 Unit(s) Subcutaneous prime en with 2 units, [...] Pt, moderate Diagnosis: Right sided facial pain[SNOMED: 14390648] Teresa Talbot [facility] [place] [address] CPT-4: 19070 09/21/2024 Plan of Care Planned Activity Notes Codes Status Date Patient Education: Patient Medication Summary Completed 09/21/2024 Patient Education: Influenza Complet ed 09/21/2024 Appointment: Michela Talbot WPtel: [phone] F/U 08/03/2024 Appointment: Michela Talbot WPtel: [phone] [employer] 04/13/2024 Instructions Comment Date Alyx resides at [facility] since about 2021. Previously lived independently in [place]. . Has one daughter Maggie who is involved in healthcare. PMH: History of breast cancer and melanoma, mixed dementia, depression, CAD, HLD, history of CVA/TIA, compression fx of L1 vertebrae, urinary incontinence, hearing loss, osteopeniaPrimary contact: Maggie Gallegos (Daughter)Code Status: DNR/SelectLab Schedule: Mar/SepSpecialists: [facility] (Q6M), Cardiology [facility] (MD Echo) 08/06/2024
--- OUTSIDE RECORDS SUMMARY | 2024-09-21 18:52 | XMS_ITS | CCD ---
Author Name Linda Vivas Address 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 Medicare Risk [id number] Unknown Un known Family history Mother Diagnosis Age At Onset Stroke Unknown Social History Social History Element Codes Description Effec tive Dates Marital status Unknown 04/13/2024 Marital status Unknown 04/13/2024 Living arrangements Unknown Assisted Living 04/[address]: 9243898 Former smoker 04/[address]: 8781016 Former smoker 04/[address]: 261920700 No Alcohol Consum ption 04/13/[address]: 688867 Currently drin ks alcohol 04/13/2024 Sexually Active? [...] No Inactive Date A ctive SIMVASTATIN RxNorm: 02593 04/13/2024 No Inactive D ate Active Penicillin Unknown 04/13/2024 No Inactive Date A ctive CLOPIDOGREL Unknown 03/23/2024 No Inactive Date Active naproxen RxNorm: 7258 04/13/2024 No Inactive Date Active levofloxacin RxNorm: 78162 03/23/2024 No Inactive Date Active Levemir Unknown 03/23/2024 No Inactive Date Ac tive metformin RxNorm: 355500 04/13/2024 No Inactive Da te Active ESTROGENS Unknown 03/23/2024 No Inactive Date Ac tive Atenolol RxNorm: 1202 04/13/2024 No Inactive Date Active metoprolol succinate RxNorm: 749087 03/23/2024 No Inactive Date Active Januvia RxNorm: 923078 04/13/2024 No Inactive Da te Active furosemide RxNorm: 4603 03/23/2024 No Inactive Balaji e Active azithromycin RxNorm: 70079 04/13/2024 No Inactive Date Active losartan RxNorm: 993946 04/13/2024 No Inactive Da te Active NSAIDS Unknown 03/23/2024 No Inactive Date Ac tive Amlodipine RxNorm: 966132 04/13/2024 No Inactive D ate Active LISINOPRIL RxNorm: 04953 04/13/2024 No Inactive Da te Active PIOGLITAZONE DERIVATIVES Unknown 04/13/2024 No I nactive Date Active Problems Condition Codes Effective Dates Condition St atus Right sided facial pain SNOMED CT: 56050 009 ICD-10: R51.9 ICD-9: 784.0 09/21/2024 Active Pneumonia due to infectious organism, unspecified laterality, unspecified part of lung SNOMED CT: 042525681 ICD-10: J18.9 ICD-9: 486 09/21/2024 Resolved Closed fracture of one rib w ith routine healing, unspecified laterality, subsequent encounter SNOMED CT: 61754952 ICD-10: S22.39XD ICD-9: V54.19 09/07/2024 Active Unsteady gait ICD-10: R26.81 ICD-9: 781.2 09/07/2024 Active Chronic heart failure with preserved ejection fraction ICD-10: I50.32 ICD-9: 428.9 08/31/2024 Active Chronic obstructive pulmonar y disease, unspecified COPD type ICD-10: J44.9 ICD-9: 496 08/31/2024 Active Primary hypertension ICD-10: I10 ICD-9: 401.9 08/31/2024 Active Type 2 diabetes mellitus without complication, unspecified whether shelter insulin use ICD-10: E11.9 ICD-9: 250.00 08/31/2024 [...] ACP (advance care planning) SNOMED CT: 3 25679266 ICD-10: Z71.89 ICD-9: V65.49 06/01/2024 Active Adult general medical exam SNOMED CT: 30 8684052 ICD-10: Z00.00 ICD-9: V70.9 06/01/2024 Active 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 angina pectoris, unspecified vessel or lesion type ICD-10: I25.10 ICD-9: 414.01 06/01/2024 Active 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 ICD-9: 311 06/01/[address]: 163584435 ICD-10: R54 ICD-9: 797 06/01/2024 Active Mixed [...] fracture of L1 vertebra, sequela SNOMED CT: 058691903 ICD-10: S32.010S ICD-9: 905.1 04/13/2024 Active Dementia in other diseases classified elsewhere, unspecified severity, without behavioral disturbance, psychotic disturbance, mood disturbance, and anxiety ICD-10: F02.80 04/13/[address]: 785211394 ICD-10: K57.90 ICD-9: 562.10 04/13/2024 Active History of breast cancer SNOMED CT: 4290 76287 ICD-10: Z85.3 ICD-9: V10.3 04/13/2024 Active History of melanoma SNOMED CT: 504155203 ICD-10: Z85.820 ICD-9: V10.82 04/13/2024 Active History of TIA (transient ischemic attack) SNOMED CT: 208407870 ICD-10: Z86.73 ICD-9: V12.54 04/13/2024 Active Hyperlipidemia, unspecified hyperlipidemia type SNOMED CT: 76888763 ICD-10: E78.5 ICD-9: 272.4 04/13/2024 Active Statin intolerance SNOMED CT: 341177540 ICD-10: Z78.9 ICD-9: 995.27 04/13/2024 Active Medications Medication Codes Instructions Start Date Stop Date Status Fill Instructions lidocaine 5 % topical patch RxNorm: 9961592 Apply 1 adhesive patch,medicated Topical QD on for 12 hours, off for 12 hours 09/22/19 No Stop Date Active carvedilol 6.25 mg tablet RxNorm: 636464 1 Tablet(s) Oral BID 09/21/19 25 026 Active *URGENT REQUEST* PLEASE SEND REFILLS FOR CYCLE FILL. THANK YOU! oxybutynin chloride ER 5 mg tablet,extended release 24 hr RxNorm: 293846 1 Tablet(s) Oral QD 09/16/19 25 026 Active *URGENT REQUEST* PLEASE SEND REFILLS FOR CYCLE FILL. THANK YOU! oxycodone 5 mg tablet RxNorm: 5711508 Take 1/2 Tablet(s) Oral every 6 hours as needed 09/08/19 25 No Stop Date Active acetaminophen 500 mg tablet RxNorm: 328777 Take 2 Tablet(s) Oral every 6 hours as needed 09/08/19 25 No Stop Date Active sennosides 8.6 mg-docusate sodium 50 mg tablet RxNorm: 957577 Take 1 Tablet(s) Oral QD as needed 09/08/19 25 No Stop Date Active oxybutynin chloride ER 5 mg tablet,extended release 24 hr RxNorm: 175451 Take 1 Tablet(s) Oral QD 09/08/19 25 025 Inactive lidocaine 4 % topical patch RxNorm: 1505644 Apply 1 Patch Topical QD on for 12 hours, off for 12 hours 09/08/19 25 025 Inactive doxycycline hyclate 100 mg tablet RxNorm: 3449106 Take 1 Tablet(s) Oral BID 09/08/19 25 025 Inactive hydrochlorothiazide 50 mg tablet RxNorm: 952571 1 TABLET ORALLY EVERY MORNING (DX: ESSENTIAL HYPERTENSION) 09/07/19 25 026 Active *URGENT REQUEST* PLEASE SEND REFILLS FOR CYCLE FILL. THANK YOU! Calcium Antacid 200 mg (as calcium carbonate 500 mg) chewable tablet RxNorm: 182522 CHEW & SWALLOW 1 TABLET ORALLY DAILY 09/07/19 25 025 Inactive *URGENT REQUEST* PLEASE SEND REFILLS FOR CYCLE FILL. THANK YOU! albuterol sulfate 2.5 mg/3 mL (0.083 %) solution for nebulization RxNorm: 867043 Take 3 Milliliter(s) Inhalation BID and BID PRN for shortness of breath/cough. 09/01/19 25 026 Active furosemide 40 mg tablet RxNorm: 426247 Take 1 Tablet(s) Oral QD 08/20/19 25 025 Inactive furosemide 40 mg tablet RxNorm: 606794 Take 1 Tablet(s) Oral QD 08/20/19 25 025 Inactive Contour Next EZ Meter RxNorm: USE TO JENIFER T BLOOD GLUCOSE DAILY (DX: DIABETES TYPE 2) 08/18/19 25 025 Inactive Contour Next Test Strips RxNorm: Use 1 strip BID 08/17/19 25 026 Active carvedilol 6.25 mg tablet RxNorm: 207132 Take 1 Tablet(s) Oral BID 08/10/19 25 025 Inactive nystatin 100,000 unit/gram topical powder RxNorm: 299172 Gram(s) Topical apply to affected area BID 08/10/19 25 025 Inactive Lantus Solostar U-100 Insulin 100 unit/mL (3 mL) subcutaneous pen RxNorm: 375986 Unit(s) Subcutaneous inject 14 units every am 08/07/19 25 No Stop Date Active hydrochlorothiazide 50 mg tablet RxNorm: 558909 Take 1 Tablet(s) Oral QD 08/07/19 25 025 Inactive Vitron-C 65 mg iron-125 mg tablet,delayed release RxNorm: 5216627 1 Tablet(s) Oral QOD every other day 07/23/19 25 025 Inactive *URGENT REQUEST* PLEASE SEND REFILLS FOR CYCLE FILL. THANK YOU! Oyster Shell Calcium-500 500 mg (as carbonate 1,250 mg) tablet RxNorm: 800576 1 TABLET ORALLY DAILY FOR BONE HEALTH 07/09/19 25 026 Active PLEASE SEND REFILLS.[employer] PLEASE PROFILE FOR FUTURE USE-[employer] Co Q-10 200 mg capsule RxNorm: 058846 1 CAPSULE ORALLY DAILY W/ 100MG CAP FOR A TOTAL DOSE OF 300MG (DX: SUPPLEMENT) 07/09/19 25 026 Active PLEASE SEND REFILLS.[employer] PLEASE PROFILE FOR FUTURE USE-[employer] Trelegy Ellipta 200 mcg-62.5 mcg-25 mcg powder for inhalation RxNorm: 4613109 INHALE 1 PUFF INTO THE LUNGS EVERY 24 HOURS (DX: CHRONIC OBSTRUCTIVE PULMONARY DISEASE) 07/09/19 25 04/25/2 026 Active PLEASE SEND REFILLS.[employer] PLEASE PROFILE FOR FUTURE USE-[employer] fluoxetine 10 mg capsule RxNorm: 286658 1 CAPSULE ORALLY DAILY (DX: DEPRESSION) (DX: ANXIETY) 07/09/19 Active PLEASE SEND REFILLS.[employer] PLEASE PROFILE FOR FUTURE USE-[employer] irbesartan 150 mg tablet RxNorm: 705640 1 TABLET ORALLY 2 TIMES DAILY (DX: HYPERTENSION) 07/09/19 Active PLEASE SEND REFILLS.[employer] PLEASE PROFILE FOR FUTURE USE-[employer] cholecalciferol (vitamin D3) 25 mcg (1,000 unit) tablet RxNorm: 522161 1 TABLET ORALLY DAILY (DX: VITAMIN D DEFICIENCY) 07/09/19 Active PLEASE SEND REFILLS.[employer] PLEASE PROFILE FOR FUTURE USE-[employer] quetiapine 25 mg tablet RxNorm: 831499 1 TABLET ORALLY AT BEDTIME (DX: ANXIETY) 07/09/19 Active PLEASE SEND REFILLS.[employer] PLEASE PROFILE FOR FUTURE USE-[employer] coenzyme Q10 100 mg capsule RxNorm: 777346 1 CAPSULE ORALLY DAILY W/ 200MG CAP FOR A TOTAL DOSE OF 300MG (DX: SUPPLEMENT) 07/09/19 Active PLEASE SEND REFILLS.[employer] PLEASE PROFILE FOR FUTURE USE-[employer] donepezil 10 mg tablet RxNorm: 405365 1 TABLET ORALLY AT BEDTIME (DX: DEMENTIA) 07/09/19 Active PLEASE SEND REFILLS.[employer] PLEASE PROFILE FOR FUTURE USE-[employer] alcohol swabs RxNorm: 972345 USE DIRECTED 07/09/19 Active PLEASE SEND REFILLS.[employer] PLEASE PROFILE FOR FUTURE USE-[employer] Vitron-C 65 mg iron-125 mg tablet,delayed release RxNorm: 0642190 1 Tablet(s) Oral QOD every other day 07/09/19 25 Inactive PLEASE SEND REFILLS.[employer] PLEASE PROFILE FOR FUTURE USE-[employer] oxybutynin chloride ER 10 mg tablet,extended release 24 hr RxNorm: 753328 1 TAB ORALLY EVERY EVENING FOR BLADDER SPASMS 07/09/19 025 Inactive PLEASE SEND REFILLS.[employer] PLEASE PROFILE FOR FUTURE USE-[employer] cyanocobalamin (vit B-12) 500 mcg tablet RxNorm: 756026 1 TABLET ORALLY DAILY (DX: ANEMIA) 07/09/19 25 025 Inactive PLEASE SEND REFILLS.[employer] PLEASE PROFILE FOR FUTURE USE-[employer] hydrochlorothiazide 25 mg tablet RxNorm: 828564 1 TABLET ORALLY DAILY (DX: HYPERTENSION) 07/09/19 25 025 Inactive PLEASE SEND REFILLS.[employer] PLEASE PROFILE FOR FUTURE USE-[employer] Contour Next EZ Meter RxNorm: USE TO JENIFER T BLOOD GLUCOSE DAILY (DX: DIABETES TYPE 2) 07/09/19 25 025 Inactive PLEASE SEND REFILLS.[employer] PLEASE PROFILE FOR FUTURE USE-[employer] Alejandra Protect (zinc oxide) 12 % topical cream RxNorm: 803957 APPLY TO RIGHT BUTTOCK 2 TIMES DAILY;APPLY TO RIGHT BUTTOCK NEEDED WITH SOILING 06/12/19 25 026 Active albuterol sulfate HFA 90 mcg/actuation aerosol inhaler RxNorm: 9397957 Inhale 2 Puff(s) Inhalation Q4H every four hours as needed 06/01/19 25 025 Inactive Alejandra Protect (zinc oxide) 12 % topical cream RxNorm: 547462 cream Topical apply to right buttocks BID and PRN with soiling 06/01/19 25 025 Inactive Lantus Solostar U-100 Insulin 100 unit/mL (3 mL) subcutaneous pen RxNorm: 207555 Unit(s) Subcutaneous prime en with 2 units, then inject 8 units SQ QD at bedtime 05/18/19 25 025 Inactive potassium chloride ER 10 mEq tablet,extended release RxNorm: 256901 Take 1 Tablet(s) Oral QD 04/12/19 25 No Stop Date Active fluoxetine 10 mg capsule RxNorm: 564106 Take 1 Capsule(s) Oral QD 04/12/19 25 025 Inactive hydrochlorothiazide 25 mg tablet RxNorm: 278609 Take 1 Tablet(s) Oral QD 04/12/19 25 025 Inactive Oyster Shell Calcium 500 mg (as calcium carbonate 1,250 mg) tablet RxNorm: 461479 Take 1 Tablet(s) Oral QD 04/12/19 025 Inactive Co Q-10 200 mg capsule RxNorm: 023067 Capsule(s) Oral take 1 cap po daily with 100mg tab to =300mg daily 04/12/19 025 Inactive Co Q-10 100 mg capsule RxNorm: 294872 Capsule(s) Oral take 1 cap daily along with 200mg tab to =300mg daily 04/12/19 025 Inactive quetiapine 25 mg tablet RxNorm: 171869 Take 1 Tablet(s) Oral QHS every night at bedtime 04/12/19 025 Inactive Vitamin D3 25 mcg (1,000 unit) tablet RxNorm: 647122 Take 1 Tablet(s) Oral QD 04/12/19 025 Inactive acetaminophen 500 mg tablet RxNorm: 799455 Take 2 Tablet(s) Oral TID as needed 04/12/19 025 Inactive donepezil 10 mg tablet RxNorm: 567733 Take 1 Tablet(s) Oral QHS every night at bedtime 04/12/19 025 Inactive cyanocobalamin (vit B-12) 500 mcg tablet RxNorm: 255118 Take 1 Tablet(s) Oral QD 04/12/19 025 Inactive oxybutynin chloride ER 10 mg tablet,extended release 24 hr RxNorm: 079935 Take 1 Tablet(s) Oral QPM every evening 04/12/19 025 Inactive irbesartan 150 mg tablet RxNorm: 753821 Take 1 Tablet(s) Oral BID 04/12/19 025 Inactive Trelegy Ellipta 200 mcg-62.5 mcg-25 mcg powder for inhalation RxNorm: 8636733 Inhale 1 Puff(s) Inhalation every 24 hours 04/12/19 025 Inactive Vitron-C 65 mg iron-125 mg tablet,delayed release RxNorm: 7157760 Take 1 Tablet(s) Oral QOD every other day 04/12/19 025 Inactive Eliquis 5 mg tablet RxNorm: 8439353 Take 1 Tablet(s) Oral BID 04/12/19 25 025 Inactive Lantus Solostar U-100 Insulin 100 unit/mL (3 mL) subcutaneous pen RxNorm: 722299 Unit(s) Subcutaneous prime en with 2 units, [...] Result Date Service Location Basic Metabolic Panel [id number] POTASSIUM (XU) 2823-3 3.8 mmol/L 09/04/19 25 Unknown Basic Metabolic Panel [id number] CHLORIDE (XU) 98 mmol/L 09/04/19 25 Unknown Basic Metabolic Panel [id number] CO2 (XU) 30 mmol/L 09/04/19 25 Unknown Basic Metabolic Panel [id number] Calcium 9.3 mg/dL 09/04/19 25 Unknown Basic Metabolic Panel [id number] ANION GAP (XU) 10 mmol/L 09/04/19 25 Unknown Basic Metabolic Panel [id number] Creatinine 0.76 mg/dL 09/04/19 25 Unknown Basic Metabolic Panel [id number] GLUCOSE (XU) 2345-7 71 mg/dL 09/04/19 25 Unknown Basic Metabolic Panel [id number] Sodium 138 mmol/L 09/04/19 25 Unknown Basic Metabolic Panel WRE3026 UREA NITROGEN (XU) 16.5 mg/dL 09/04/19 25 Unknown Basic Metabolic Panel [id number] GFR, ESTIMATE 83856-9 75 mL/min/1.73m 2 09/04/19 25 Unknown CBC with Platelets EIG280 WBC COUNT (AUTOMATED) 4.1 10e3/uL 06/05/19 25 Unknown CBC with Platelets OKU097 RBC COUNT 789-8 4.37 10e6/uL 06/05/19 25 Unknown CBC with Platelets KSY881 Hemoglobin 718-7 13.5 g/dL 06/05/19 25 Unknown CBC with Platelets BNT560 Hematocrit 4544-3 42.8 % 06/05/19 25 Unknown CBC with Platelets BWE846 MCV 787-2 98 fL 06/05/19 25 Unknown CBC with Platelets HZK556 MCH 30.9 pg 06/05/19 25 Unknown CBC with Platelets LWV494 MCHC 31.5 g/dL 06/05/19 25 Unknown CBC with Platelets SEW521 RDW 16.5 % 06/05/19 25 Unknown CBC with Platelets LYG899 Platelet Count 777-3 181 10e3/uL 06/05/19 25 Unknown Hemoglobin A1c LAB90 EST AVERAGE GLUCOSE 151 mg/dL 06/05/19 25 Unknown Hemoglobin A1c LAB90 Hemoglobin A1c 32049-3 6.9 % 06/05/19 25 Unknown Glucose QOL2787 Sodium 140 mmol/L 06/05/19 25 Unknown Glucose OXK6858 POTASSIUM (XU) 2823-3 3.5 mmol/L 06/05/19 25 Unknown Glucose BNP3262 CHLORIDE (XU) 100 mmol/L 25 Unknown Glucose AEZ2454 CO2 (XU) 28 mmol/L 06/05/19 25 Unknown Glucose UKE1944 ANION GAP (XU) 12 mmol/L 06/05/19 25 Unknown Glucose GGG6939 UREA NITROGEN (XU) 13.7 mg/dL 06/05/19 25 Unknown Glucose KTK1231 Creatinine 0.75 mg/dL 06/05/19 25 Unknown Glucose MNN0197 GFR, ESTIMATE 92159-2 76 mL/min/1.73m 2 06/05/19 25 Unknown Glucose ICH2875 Calcium 9.3 mg/dL 06/05/19 25 Unknown Basic Metabolic Panel [id number] POTASSIUM (XU) 2823-3 3.5 mmol/L 06/05/19 25 Unknown Basic Metabolic Panel MHV2460 CHLORIDE (XU) 100 mmol/L 06/05/19 25 Unknown Basic Metabolic Panel [id number] CO2 (XU) 28 mmol/L 06/05/19 25 Unknown Basic Metabolic Panel JYS6571 Calcium 9.3 mg/dL 06/05/19 25 Unknown Basic Metabolic Panel QXS1210 ANION GAP (XU) 12 mmol/L 06/05/19 25 Unknown Basic Metabolic Panel LSH9273 Creatinine 0.75 mg/dL 06/05/19 25 Unknown Basic Metabolic Panel [id number] GLUCOSE (XU) 2345-7 79 mg/dL 06/05/19 25 Unknown Basic Metabolic Panel VUB1806 Sodium 140 mmol/L 06/05/19 25 Unknown Basic Metabolic Panel ROA3444 UREA NITROGEN (XU) 13.7 mg/dL 06/05/19 25 Unknown Basic Metabolic Panel [id number] GFR, ESTIMATE 43874-1 76 mL/min/1.73m 2 06/05/19 25 Unknown Urine Culture 97317 URINE CULTURE 67305-8 SEE RESU LTS BELOW 06/04/19 25 Unknown PHQ9 PHQ9 18331-3 1 06/02/19 25 Unknown UA with Microscopic 31452 COLOR Light Yellow 06/01/19 25 Unknown UA with Microscopic 21334 Appearance Slightly Cloudy 06/01/19 25 Unknown UA with Microscopic 97680 GLUCOSE, URINE Negative mg/dL 06/01/19 25 Unknown UA with Microscopic 31422 BILIRUBIN, URINE Negative 06/01/19 Unknown UA with Microscopic 29716 Ketones Urine Negative mg/dL 06/01/19 25 Unknown UA with Microscopic 06337 Specific Powell Urine 1.012 06/01/19 25 Unknown UA with Microscopic 71094 BLOOD, URINE Negative 06/01/19 25 Unknown UA with Microscopic 95726 pH Urine 6.5 06/01/19 25 Unknown UA with Microscopic 20782 Protein urine Negative mg/dL 06/01/19 25 Unknown UA with Microscopic 75219 UROBILINOGEN IRIS Normal mg/dL 06/01/19 25 Unknown UA with Microscopic 20661 Nitrites Positive 06/01/19 25 Unknown UA with Microscopic 99451 LEUK ESTERASE Trace 06/01/19 25 Unknown UA with Microscopic 58119 Bacteria Few /HPF 06/01/19 25 Unknown UA with Microscopic 17138 WBC CLUMPS 6690-2 Present /HPF 06/01/19 25 Unknown UA with Microscopic 80744 Mucus Urine Present /LPF 06/01/19 25 Unknown UA with Microscopic 89089 RBC Urine <1 /HPF 06/01/19 25 Unknown UA with Microscopic 39448 SQUAMOUS EPITHELIAL 2 /HPF 06/01/19 25 Unknown UA with Microscopic 53125 WBC Urine 07284-0 26 /HPF 06/01/19 25 Unknown Urine Culture 80580 URINE CULTURE 56792-3 SEE RESU LTS BELOW 05/23/19 25 Unknown UA with Microscopic 16652 COLOR Yellow 05/22/19 25 Unknown UA with Microscopic 51965 Appearance Slightly Cloudy 05/22/19 25 Unknown UA with Microscopic 01431 GLUCOSE, URINE Negative mg/dL 05/22/19 25 Unknown UA with Microscopic 04918 BILIRUBIN, URINE Negative 05/22/19 25 Unknown UA with Microscopic 27804 Ketones Urine Negative mg/dL 05/22/19 25 Unknown UA with Microscopic 30727 Specific [place] Urine 1.013 05/22/19 25 Unknown UA with Microscopic 67525 BLOOD, URINE Negative 05/22/19 25 Unknown UA with Microscopic 82732 pH Urine 6.5 05/22/19 25 Unknown UA with Microscopic 01033 Protein urine 10 mg/dL 05/22/19 25 Unknown UA with Microscopic 23347 UROBILINOGEN IRIS Normal mg/dL 05/22/19 25 Unknown UA with Microscopic 44147 Nitrites Positive 05/22/19 25 Unknown UA with Microscopic 81625 LEUK ESTERASE Large 05/22/19 25 Unknown UA with Microscopic 71526 Bacteria Few /HPF 05/22/19 25 Unknown UA with Microscopic 40048 Mucus Urine Present /LPF 05/22/19 25 Unknown UA with Microscopic 71086 RBC Urine 0 /HPF 05/22/19 25 Unknown UA with Microscopic 14762 SQUAMOUS EPITHELIAL 3 /HPF 05/22/19 25 Unknown UA with Microscopic 49157 WBC Urine 49267-9 24 /HPF 05/22/19 25 Unknown UA with Microscopic 40462 TRANSITIONAL EPI <1 /HPF 05/22/19 25 Unknown PHQ9 PHQ9 94347-8 2 04/13/19 25 Unknown SLUMS SLUMS 19376-3 13 04/13/19 25 Unknown Procedures Procedure Codes Date DSCHRG MED/CURRENT MED MERGE CPT-4: 1111F 03/2024 DSCHRG MED/CURRENT MED MERGE CPT-4: 1111F 05/2024 HG A1C LEVEL LT 7.0% CPT-4: 3044F 06/29/2024 PT INELIG NEG SCRN DEPRES SNOMED CT: 428 [id number] CPT-4: G8510 06/01/2024 PT INELIG NEG SCRN DEPRES SNOMED CT: 428 813908447729 CPT-4: G8510 04/13/2024 Vital Signs Date Vital 09/07/2024 Blood Pressure 1: 144/79 Code: 8480-6 Heart Rate 1: 69 bpm Code: 8867-4 Respiratory Rate: 16 bpm SpO2: 90% Temperature: 36.3 (C) / 97.4 (F) 08/31/2024 Blood Pressure 1: 142/70 Code: 8480-6 Heart Rate 1: 82 bpm Code: 8867-4 Respiratory Rate: 20 bpm SpO2: 91% Temperature: 35.4 (C) / 95.8 (F) Weight: 208 lbs 6 oz Code: 3141-9 08/10/2024 Blood Pressure 1: 144/68 Code: 8480-6 BMI: 35.0 Code: 84390-1 Heart Rate 1: 78 bpm Code: 8867-4 [...] 1: 150/90 Code: 8480-6 BMI: NaN Code: 84668-7 Heart Rate 1: 71 bpm Code: 8867-4 Respiratory Rate: 16 bpm Temperature: 36.4 (C) / 97.5 (F) Weight: 206 lbs Code: 3141-05/04/2024 Blood Pressure 1: 154/95 Code: 8480-6 Heart [...] Encounter Performer Location Location Address Codes Date ([id number]) Home Visit - Est Pt, moderate Diagnosis: Unsteady gait[ICD10: R26.81] Diagnosis: Closed fracture of one rib with routine healing, unspecified laterality, subsequent encounter[SNOMED: 16939311] Diagnosis: Pneumonia due to infectious organism, unspecified laterality, unspecified part of lung[SNOMED: 204538637] Teresa Talbot [facility] [place] [address] CPT-4: 46855 09/07/2024 ([id number]) Home Visit - Est Pt, moderate Diagnosis: Primary hypertension[ICD10: I10] Diagnosis: Chronic heart failure with preserved ejection fraction[ICD10: I50.32] Diagnosis: Chronic obstructive pulmonary disease, unspecified COPD type[ICD10: J44.9] Diagnosis: Type 2 diabetes mellitus without complication, unspecified whether shelter insulin use[ICD10: E11.9] Diagnosis: Urinary incontinence, unspecified type[ICD10: R32] Teresa Talbot [facility] [place] [address] CPT-4: 99010 08/31/2024 ([id number]) Home Visit - Est Pt, moderate Diagnosis: Atrial fibrillation, unspecified type[ICD10: I48.91] Diagnosis: Chronic obstructive pulmonary disease, unspecified COPD type[ICD10: J44.9] Diagnosis: Unsteady gait[ICD10: R26.81] Diagnosis: Vascular dementia, unspecified severity, without behavioral disturbance, psychotic disturbance, mood disturbance, and anxiety[ICD10: F01.50] Diagnosis: Pressure injury of left buttock, stage 2[ICD10: L89.322] [facility] [address] [place] [phone] CPT-4: 57447 08/10/2024 ([id number]) Home Visit - Est Pt, moderate Diagnosis: Acute cystitis without hematuria[ICD10: N30.00] Diagnosis: Chronic heart failure with preserved ejection fraction[ICD10: I50.32] Diagnosis: Iron deficiency anemia, unspecified iron deficiency anemia type[ICD10: D50.9] Diagnosis: Type 2 diabetes mellitus without complication, unspecified whether shelter insulin use[ICD10: E11.9] Diagnosis: Chronic obstructive pulmonary disease, unspecified COPD type[ICD10: J44.9] [facility] [address] [place] [phone] CPT-4: 01437 06/29/2024 ([id number]) Medicare Annual Wellness Visit (AWV), Subsequent Diagnosis: Adult general medical exam[SNOMED: 329586465] Diagnosis: ACP (advance care planning)[SNOMED: 648427875] Diagnosis: Frailty[SNOMED: 266249169] Diagnosis: 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 angina pectoris, unspecified vessel or [...] 2 diabetes mellitus without complication, unspecified whether shelter insulin use[ICD10: E11.9] Diagnosis: Unintentional weight loss[ICD10: R63.4] Diagnosis: Unsteady gait[ICD10: R26.81] Diagnosis: Venous insufficiency of both lower extremities[ICD10: I87.2] Diagnosis: Acute cystitis without hematuria[SNOMED: 33341104] Diagnosis: Pressure injury of left buttock, stage 2[ICD10: L89.322] [facility] [address] [place] [phone] CPT-4: G0439 06/01/2024 ([id number]) Home Visit - Est Pt, moderate Diagnosis: Adult general medical exam[SNOMED: 526653020] Diagnosis: ACP (advance care planning)[SNOMED: 438191321] Diagnosis: Frailty[SNOMED: 940113652] Diagnosis: 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 angina pectoris, unspecified vessel or [...] 2 diabetes mellitus without complication, unspecified whether shelter insulin use[ICD10: E11.9] Diagnosis: Unintentional weight loss[ICD10: R63.4] Diagnosis: Unsteady gait[ICD10: R26.81] Diagnosis: Venous insufficiency of both lower extremities[ICD10: I87.2] Diagnosis: Acute cystitis without hematuria[SNOMED: 31313648] Diagnosis: Pressure injury of left buttock, stage 2[ICD10: L89.322] [facility] [place] [address] CPT-4: 58694 06/01/2024 ([id number]) Home or Residence Visit Est Pt - Moderate Level, 40 mins 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] Diagnosis: Primary hypertension[ICD10: I10] Diagnosis: Pressure injury of left buttock, stage 2[SNOMED: 47190580640754] Diagnosis: Type 2 diabetes mellitus without complication, 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 whether 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[ICD10: E11.9] Teresa Talbot [facility] [place] [address] CPT-4: 99553 05/04/2024 ([id number]) Home or Residence Visit [facility] - Moderate Level, 60 mins Diagnosis: Statin intolerance[SNOMED: 909371846] Diagnosis: Mixed Alzheimer and vascular dementia[SNOMED: 40023259326867] Diagnosis: Vascular dementia, unspecified severity, without behavioral disturbance, psychotic disturbance, mood disturbance, and anxiety[ICD10: F01.50] Diagnosis: Dementia in other diseases classified elsewhere, unspecified severity, without behavioral disturbance, psychotic disturbance, mood disturbance, and anxiety[ICD10: F02.80] Diagnosis: History of TIA (transient ischemic attack)[SNOMED: 029887827] Diagnosis: Type 2 diabetes mellitus without complication, unspecified whether shelter insulin use[SNOMED: 68265983] Diagnosis: Venous insufficiency of both lower extremities[SNOMED: 273418699] Diagnosis: Hyperlipidemia, unspecified hyperlipidemia type[SNOMED: 09094168] Diagnosis: Unintentional weight loss[SNOMED: 725464768] Diagnosis: Urinary incontinence, unspecified type[SNOMED: 532623054] Diagnosis: Depression due to dementia[SNOMED: 85918176] Diagnosis: Compression fracture of L1 vertebra, sequela[SNOMED: 947949484] Diagnosis: 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 angina pectoris, unspecified vessel or lesion type[SNOMED: 810689411] Diagnosis: Unsteady gait[SNOMED: 97908452] Diagnosis: Iron deficiency anemia, unspecified iron deficiency anemia type[SNOMED: 78301188] Diagnosis: Osteopenia, unspecified location[SNOMED: 954597377] Diagnosis: CAMILO (obstructive sleep apnea)[SNOMED: 40685793] Diagnosis: Chronic obstructive pulmonary disease, unspecified COPD type[SNOMED: 04790030] Diagnosis: History of breast cancer[SNOMED: 780793516] Diagnosis: History of melanoma[SNOMED: 273046846] Diagnosis: Primary hypertension[SNOMED: 76652148] Diagnosis: Chronic heart failure with preserved ejection fraction[SNOMED: 785770016] Diagnosis: Diverticulosis[SNOMED : 930808643] Diagnosis: Atrial fibrillation, unspecified type[SNOMED: 68800085] Diagnosis: Advance care planning[SNOMED: 807164976] Teresa Talbot [address] [address] CPT-4: 73092 04/13/2024 Plan of Care Planned Activity Notes Codes Status Date Patient Education: Patient Medication Summary Completed 09/07/2024 Patient Education: Influenza Complet ed 09/07/2024 Patient Education: Patient Medication Summary Completed 08/31/2024 Patient Education: Influenza Complet ed 08/31/2024 Patient Education: Patient Medication Summary Completed 08/10/2024 Patient Education: Influenza Complet ed 08/10/2024 Appointment: Michela Talbot WPtel: [phone] F/U 08/03/2024 Patient Education: Patient Medication Summary [...] Complet ed 05/04/2024 Appointment: Michela Talbot WPtel: [phone] [facility] 04/13/2024 Patient Education: Patient Medication Summary Completed 04/13/2024 Patient Education: Influenza Complet ed 04/13/2024 Patient Education: Alzheimer''s Disease Completed 04/13/2024 Patient Education: Dementia Complete d 04/13/2024 Instructions Comment Date Alyx resides at [facility] since about 2021. Previously lived independently in [place]. . Has one daughter Maggie who is involved in healthcare. PMH: History of breast cancer and melanoma, mixed dementia, depression, CAD, HLD, history of CVA/TIA, compression fx of L1 vertebrae, urinary incontinence, hearing loss, osteopeniaPrimary contact: Maggie Gallegos (Daughter)Code Status: DNR/SelectLab Schedule: Mar/SepSpecialists: [facility] (Q6M), Cardiology [facility] ([facility]) 08/06/2024 Pneumonia due to infectious [...] pneumonia and ?UTI. Have requested records from [facility] although have not received them. She has a wheelchair and walker and staff have been encouraging her to use her call button for assistance with transfers. Fall occurred due to attempt to self transfer. Has been working with PT/OT. 09/07/2024 Chronic heart failure with p reserved ejection fraction Increased edema and shortness of breath reported by staff. CXR revealed pulmonary edema vs interstitial pneumonitis. Treated with 5 day burst of HCTZ 100mg (typically on 50mg daily). Nursing states she has been stable since. Repeat BMP. On exam today, lungs CTA, no labored breathing. Legs are edematous, wearing tubi batter mixer helper. Nursing reached out to TCU in regards to previous compression wraps, they're connecting with a lymph PT for further instruction. She has been utilizing a wheelchair more than her walker which is likely leading to increased edema status. Encourage walker use, exercise, tubi batter mixer helper, and elevation. Will continue on HCTZ as well. Type 2 diabetes mellitus without complication, unspecified whether 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 Sugars reviewed; stable in 90-200 [...] to avoid exacerbation. Ordering nebulizer machine today. [id number] visit with patient today regarding the need for nebulizer machine due high risk exacerbation of her COPD and repeat hospitalizations. Observations gathered via [id number] examination and evaluation by PA. Patient is [...] diabetes mellitus wit hout complication, unspecified whether shelter insulin use Sugars reviewed; most readings < [...] 2 diabetes mellitus without complication, unspecified whether shelter insulin use Sugars reviewed; remain in 80s-100s. [...] of care. 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 angina pectoris, unspecified vessel or [...] diabetes mellitus wit hout complication, unspecified whether shelter insulin use Sugars reviewed; remain in 80-90s [...] fibrillation, unspecified type Has seen cardiology in [place] 01/2024. Managed on eliquis 5mg BID. No excessive bruising or bleeding on exam. 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 angina pectoris, unspecified vessel or [...] Planning POLST reviewed; DNR/Select. Daughter Maggie is [place]. 04/13/2024
--- OUTSIDE RECORDS SUMMARY | 2024-09-21 18:54 | XMS_ITS | CCD ---
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 Phone Teresa Vivas Primary Care Provider Un available Unavailable Chronic Care Management Unavaila ble Summary Purpose DataExchange Insurance Providers Payer name Policy type / Coverage type Covered alliance party ID Effective Begin Date Effective End Date BCBS of [facility] Medicare Risk [id number] Unknown Un known Family history Mother Diagnosis Age At Onset Stroke Unknown Social History Social History Element Codes Description Effec tive Dates Marital status Unknown 04/13/2024 Marital status Unknown 04/13/2024 Living arrangements Unknown Assisted Living 04/[address]: 1054926 Former smoker 04/[address]: 2559009 Former smoker 04/[address]: 172672254 No Alcohol Consum ption 04/13/[address]: 728220 Currently drin ks alcohol 04/13/2024 Sexually Active? [...] No Inactive Date A ctive SIMVASTATIN RxNorm: 16403 04/13/2024 No Inactive D ate Active Penicillin Unknown 04/13/2024 No Inactive Date A ctive CLOPIDOGREL Unknown 03/23/2024 No Inactive Date Active naproxen RxNorm: 7258 04/13/2024 No Inactive Date Active levofloxacin RxNorm: 23118 03/23/2024 No Inactive Date Active Levemir Unknown 03/23/2024 No Inactive Date Ac tive metformin RxNorm: 051204 04/13/2024 No Inactive Da te Active ESTROGENS Unknown 03/23/2024 No Inactive Date Ac tive Atenolol RxNorm: 1202 04/13/2024 No Inactive Date Active metoprolol succinate RxNorm: 471943 03/23/2024 No Inactive Date Active Januvia RxNorm: 265342 04/13/2024 No Inactive Da te Active furosemide RxNorm: 4603 03/23/2024 No Inactive Balaji e Active azithromycin RxNorm: 13126 04/13/2024 No Inactive Date Active losartan RxNorm: 800202 04/13/2024 No Inactive Da te Active NSAIDS Unknown 03/23/2024 No Inactive Date Ac tive Amlodipine RxNorm: 970368 04/13/2024 No Inactive D ate Active LISINOPRIL RxNorm: 75915 04/13/2024 No Inactive Da te Active PIOGLITAZONE DERIVATIVES Unknown 04/13/2024 No I nactive Date Active Problems Condition Codes Effective Dates Condition St atus Closed fracture of one rib o f right side with routine healing, subsequent encounter SNOMED CT: 83922743 ICD-10: S22.31XD ICD-9: V54.19 09/21/2024 Active Right sided facial pain SNOMED CT: 35241 009 ICD-10: R51.9 ICD-9: 784.0 09/21/2024 Active Closed fracture of one rib w ith routine healing, unspecified laterality, subsequent encounter SNOMED CT: 99575738 ICD-10: S22.39XD ICD-9: V54.19 09/21/2024 Resolved Pneumonia due to infectious organism, unspecified laterality, unspecified part of lung SNOMED CT: 095950225 ICD-10: J18.9 ICD-9: 486 09/21/2024 Resolved Unsteady gait ICD-10: R26.81 ICD-9: 781.2 09/07/2024 Active Chronic heart failure with preserved ejection fraction ICD-10: I50.32 ICD-9: 428.9 08/31/2024 Active Chronic obstructive pulmonar y disease, unspecified COPD type ICD-10: J44.9 ICD-9: 496 08/31/2024 Active Primary hypertension ICD-10: I10 ICD-9: 401.9 08/31/2024 Active Type 2 diabetes mellitus without complication, unspecified whether reviewer sales insulin use ICD-10: E11.9 ICD-9: 250.00 08/31/2024 [...] ACP (advance care planning) SNOMED CT: 3 62084107 ICD-10: Z71.89 ICD-9: V65.49 06/01/2024 Active Adult general medical exam SNOMED CT: 30 0569877 ICD-10: Z00.00 ICD-9: V70.9 06/01/2024 Active Atherosclerosis of coronary artery of [place] heart without angina pectoris, unspecified vessel or lesion type ICD-10: I25.10 ICD-9: 414.01 06/01/2024 Active 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 ICD-9: 311 06/01/[address]: 134769451 ICD-10: R54 ICD-9: 797 06/01/2024 Active Mixed [...] fracture of L1 vertebra, sequela SNOMED CT: 306986318 ICD-10: S32.010S ICD-9: 905.1 04/13/2024 Active Dementia in other diseases classified elsewhere, unspecified severity, without behavioral disturbance, psychotic disturbance, mood disturbance, and anxiety ICD-10: F02.80 04/13/[address]: 246342472 ICD-10: K57.90 ICD-9: 562.10 04/13/2024 Active History of breast cancer SNOMED CT: 4290 01487 ICD-10: Z85.3 ICD-9: V10.3 04/13/2024 Active History of melanoma SNOMED CT: 067149260 ICD-10: Z85.820 ICD-9: V10.82 04/13/2024 Active History of TIA (transient ischemic attack) SNOMED CT: 757594163 ICD-10: Z86.73 ICD-9: V12.54 04/13/2024 Active Hyperlipidemia, unspecified hyperlipidemia type SNOMED CT: 60500401 ICD-10: E78.5 ICD-9: 272.4 04/13/2024 Active Statin intolerance SNOMED CT: 409539420 ICD-10: Z78.9 ICD-9: 995.27 04/13/2024 Active Medications Medication Codes Instructions Start Date Stop Date Status Fill Instructions lidocaine 5 % topical patch RxNorm: 8901357 Apply 1 adhesive patch,medicated Topical QD on for 12 hours, off for 12 hours 09/22/19 25 No Stop Date Active carvedilol 6.25 mg tablet RxNorm: 068725 1 Tablet(s) Oral BID 09/21/19 25 026 Active *URGENT REQUEST* PLEASE SEND REFILLS FOR CYCLE FILL. THANK YOU! oxybutynin chloride ER 5 mg tablet,extended release 24 hr RxNorm: 789201 1 Tablet(s) Oral QD 09/16/19 25 026 Active *URGENT REQUEST* PLEASE SEND REFILLS FOR CYCLE FILL. THANK YOU! oxycodone 5 mg tablet RxNorm: 6425690 Take 1/2 Tablet(s) Oral every 6 hours as needed 09/08/19 25 No Stop Date Active acetaminophen 500 mg tablet RxNorm: 159319 Take 2 Tablet(s) Oral every 6 hours as needed 09/08/19 25 No Stop Date Active sennosides 8.6 mg-docusate sodium 50 mg tablet RxNorm: 295832 Take 1 Tablet(s) Oral QD as needed 09/08/19 25 No Stop Date Active oxybutynin chloride ER 5 mg tablet,extended release 24 hr RxNorm: 761203 Take 1 Tablet(s) Oral QD 09/08/19 25 025 Inactive lidocaine 4 % topical patch RxNorm: 0965207 Apply 1 Patch Topical QD on for 12 hours, off for 12 hours 09/08/19 25 025 Inactive doxycycline hyclate 100 mg tablet RxNorm: 8883787 Take 1 Tablet(s) Oral BID 09/08/19 25 025 Inactive hydrochlorothiazide 50 mg tablet RxNorm: 205220 1 TABLET ORALLY EVERY MORNING (DX: ESSENTIAL HYPERTENSION) 09/07/19 25 026 Active *URGENT REQUEST* PLEASE SEND REFILLS FOR CYCLE FILL. THANK YOU! Calcium Antacid 200 mg (as calcium carbonate 500 mg) chewable tablet RxNorm: 787377 CHEW & SWALLOW 1 TABLET ORALLY DAILY 09/07/19 25 025 Inactive *URGENT REQUEST* PLEASE SEND REFILLS FOR CYCLE FILL. THANK YOU! albuterol sulfate 2.5 mg/3 mL (0.083 %) solution for nebulization RxNorm: 847549 Take 3 Milliliter(s) Inhalation BID and BID PRN for shortness of breath/cough. 09/01/19 25 026 Active furosemide 40 mg tablet RxNorm: 443881 Take 1 Tablet(s) Oral QD 08/20/19 25 025 Inactive furosemide 40 mg tablet RxNorm: 849878 Take 1 Tablet(s) Oral QD 08/20/19 25 025 Inactive Contour Next EZ Meter RxNorm: USE TO JENIFER T BLOOD GLUCOSE DAILY (DX: DIABETES TYPE 2) 08/18/19 25 025 Inactive Contour Next Test Strips RxNorm: Use 1 strip BID 08/17/19 25 026 Active carvedilol 6.25 mg tablet RxNorm: 430858 Take 1 Tablet(s) Oral BID 08/10/19 25 025 Inactive nystatin 100,000 unit/gram topical powder RxNorm: 822850 Gram(s) Topical apply to affected area BID 08/10/19 25 025 Inactive Lantus Solostar U-100 Insulin 100 unit/mL (3 mL) subcutaneous pen RxNorm: 560490 Unit(s) Subcutaneous inject 14 units every am 08/07/19 25 No Stop Date Active hydrochlorothiazide 50 mg tablet RxNorm: 447810 Take 1 Tablet(s) Oral QD 08/07/19 25 025 Inactive Vitron-C 65 mg iron-125 mg tablet,delayed release RxNorm: 9321444 1 Tablet(s) Oral QOD every other day 07/23/19 25 025 Inactive *URGENT REQUEST* PLEASE SEND REFILLS FOR CYCLE FILL. THANK YOU! Oyster Shell Calcium-500 500 mg (as carbonate 1,250 mg) tablet RxNorm: 292590 1 TABLET ORALLY DAILY FOR BONE HEALTH 07/09/19 25 026 Active PLEASE SEND REFILLS.PHARMA CY PLEASE PROFILE FOR FUTURE USE-[facility] Co Q-10 200 mg capsule RxNorm: 785953 1 CAPSULE ORALLY DAILY W/ 100MG CAP FOR A TOTAL DOSE OF 300MG (DX: SUPPLEMENT) 07/09/19 25 026 Active PLEASE SEND REFILLS.PHARMA CY PLEASE PROFILE FOR FUTURE USE-[facility] Trelegy Ellipta 200 mcg-62.5 mcg-25 mcg powder for inhalation RxNorm: 7963240 INHALE 1 PUFF INTO THE LUNGS EVERY 24 HOURS (DX: CHRONIC OBSTRUCTIVE PULMONARY DISEASE) 07/09/19 25 Active PLEASE SEND REFILLS.PHARMA CY PLEASE PROFILE FOR FUTURE USE-[facility] fluoxetine 10 mg capsule RxNorm: 407242 1 CAPSULE ORALLY DAILY (DX: DEPRESSION) (DX: ANXIETY) 07/09/19 25 Active PLEASE SEND REFILLS.PHARMA CY PLEASE PROFILE FOR FUTURE USE-[facility] or[facility] irbesartan 150 mg tablet RxNorm: 146451 1 TABLET ORALLY 2 TIMES DAILY (DX: HYPERTENSION) 07/09/19 25 Active PLEASE SEND REFILLS.PHARMA CY PLEASE PROFILE FOR FUTURE USE-[facility] cholecalciferol (vitamin D3) 25 mcg (1,000 unit) tablet RxNorm: 444010 1 TABLET ORALLY DAILY (DX: VITAMIN D DEFICIENCY) 07/09/19 Active PLEASE SEND REFILLS.PHARMA CY PLEASE PROFILE FOR FUTURE USE-[facility] quetiapine 25 mg tablet RxNorm: 178364 1 TABLET ORALLY AT BEDTIME (DX: ANXIETY) 07/09/19 25 Active PLEASE SEND REFILLS.PHARMA CY PLEASE PROFILE FOR FUTURE USE-[facility] coenzyme Q10 100 mg capsule RxNorm: 968776 1 CAPSULE ORALLY DAILY W/ 200MG CAP FOR A TOTAL DOSE OF 300MG (DX: SUPPLEMENT) 07/09/19 Active PLEASE SEND REFILLS.PHARMA CY PLEASE PROFILE FOR FUTURE USE-Medical[facility] donepezil 10 mg tablet RxNorm: 599525 1 TABLET ORALLY AT BEDTIME (DX: DEMENTIA) 07/09/19 25 026 Active PLEASE SEND REFILLS.PHARMA CY PLEASE PROFILE FOR FUTURE USE-[facility] alcohol swabs RxNorm: 497690 USE DIRECTED 07/09/19 25 Active PLEASE SEND REFILLS.PHARMA CY PLEASE PROFILE FOR FUTURE USE-[facility] Vitron-C 65 mg iron-125 mg tablet,delayed release RxNorm: 6887540 1 Tablet(s) Oral QOD every other day 07/09/19 25 025 Inactive PLEASE SEND REFILLS.PHARMA CY PLEASE PROFILE FOR FUTURE USE-[facility] oxybutynin chloride ER 10 mg tablet,extended release 24 hr RxNorm: 531623 1 TAB ORALLY EVERY EVENING FOR BLADDER SPASMS 07/09/19 25 025 Inactive PLEASE SEND REFILLS.PHARMA CY PLEASE PROFILE FOR FUTURE USE-[facility] cyanocobalamin (vit B-12) 500 mcg tablet RxNorm: 988777 1 TABLET ORALLY DAILY (DX: ANEMIA) 07/09/19 25 025 Inactive PLEASE SEND REFILLS.PHARMA CY PLEASE PROFILE FOR FUTURE USE-[facility] hydrochlorothiazide 25 mg tablet RxNorm: 835211 1 TABLET ORALLY DAILY (DX: HYPERTENSION) 07/09/19 25 025 Inactive PLEASE SEND REFILLS.PHARMA CY PLEASE PROFILE FOR FUTURE USE-MedicalRec or[facility] Contour Next EZ Meter RxNorm: USE TO JENIFER T BLOOD GLUCOSE DAILY (DX: DIABETES TYPE 2) 07/09/19 25 025 Inactive PLEASE SEND REFILLS.PHARMA CY PLEASE PROFILE FOR FUTURE USE-[facility] Alejandra Protect (zinc oxide) 12 % topical cream RxNorm: 793634 APPLY TO RIGHT BUTTOCK 2 TIMES DAILY;APPLY TO RIGHT BUTTOCK NEEDED WITH SOILING 06/12/19 25 026 Active albuterol sulfate HFA 90 mcg/actuation aerosol inhaler RxNorm: 2610407 Inhale 2 Puff(s) Inhalation Q4H every four hours as needed 06/01/19 25 025 Inactive Alejandra Protect (zinc oxide) 12 % topical cream RxNorm: 617875 cream Topical apply to right buttocks BID and PRN with soiling 06/01/19 25 025 Inactive Lantus Solostar U-100 Insulin 100 unit/mL (3 mL) subcutaneous pen RxNorm: 945250 Unit(s) Subcutaneous prime en with 2 units, then inject 8 units SQ QD at bedtime 05/18/19 25 025 Inactive potassium chloride ER 10 mEq tablet,extended release RxNorm: 620043 Take 1 Tablet(s) Oral QD 04/12/19 25 No Stop Date Active fluoxetine 10 mg capsule RxNorm: 768991 Take 1 Capsule(s) Oral QD 04/12/19 025 Inactive hydrochlorothiazide 25 mg tablet RxNorm: 455599 Take 1 Tablet(s) Oral QD 04/12/19 025 Inactive Oyster Shell Calcium 500 mg (as calcium carbonate 1,250 mg) tablet RxNorm: 685095 Take 1 Tablet(s) Oral QD 04/12/19 025 Inactive Co Q-10 200 mg capsule RxNorm: 416036 Capsule(s) Oral take 1 cap po daily with 100mg tab to =300mg daily 04/12/19 025 Inactive Co Q-10 100 mg capsule RxNorm: 339335 Capsule(s) Oral take 1 cap daily along with 200mg tab to =300mg daily 04/12/19 025 Inactive quetiapine 25 mg tablet RxNorm: 068122 Take 1 Tablet(s) Oral QHS every night at bedtime 04/12/19 025 Inactive Vitamin D3 25 mcg (1,000 unit) tablet RxNorm: 246962 Take 1 Tablet(s) Oral QD 04/12/19 025 Inactive acetaminophen 500 mg tablet RxNorm: 244288 Take 2 Tablet(s) Oral TID as needed 04/12/19 025 Inactive donepezil 10 mg tablet RxNorm: 483784 Take 1 Tablet(s) Oral QHS every night at bedtime 04/12/19 025 Inactive cyanocobalamin (vit B-12) 500 mcg tablet RxNorm: 945812 Take 1 Tablet(s) Oral QD 04/12/19 025 Inactive oxybutynin chloride ER 10 mg tablet,extended release 24 hr RxNorm: 938543 Take 1 Tablet(s) Oral QPM every evening 04/12/19 025 Inactive irbesartan 150 mg tablet RxNorm: 354697 Take 1 Tablet(s) Oral BID 04/12/19 025 Inactive Trelegy Ellipta 200 mcg-62.5 mcg-25 mcg powder for inhalation RxNorm: 5486682 Inhale 1 Puff(s) Inhalation every 24 hours 04/12/19 025 Inactive Vitron-C 65 mg iron-125 mg tablet,delayed release RxNorm: 8697961 Take 1 Tablet(s) Oral QOD every other day 04/12/19 25 025 Inactive Eliquis 5 mg tablet RxNorm: 3948751 Take 1 Tablet(s) Oral BID 04/12/19 25 025 Inactive Lantus Solostar U-100 Insulin 100 unit/mL (3 mL) subcutaneous pen RxNorm: 090524 Unit(s) Subcutaneous prime en with 2 units, [...] Result Date Service Location Basic Metabolic Panel [id number] POTASSIUM (XU) 2823-3 3.8 mmol/L 09/04/19 25 Unknown Basic Metabolic Panel [id number] CHLORIDE (XU) 98 mmol/L 09/04/19 25 Unknown Basic Metabolic Panel [id number] CO2 (XU) 30 mmol/L 09/04/19 25 Unknown Basic Metabolic Panel [id number] Calcium 9.3 mg/dL 09/04/19 25 Unknown Basic Metabolic Panel [id number] ANION GAP (XU) 10 mmol/L 09/04/19 25 Unknown Basic Metabolic Panel [id number] Creatinine 0.76 mg/dL 09/04/19 25 Unknown Basic Metabolic Panel HFV5002 GLUCOSE (XU) 2345-7 71 mg/dL 09/04/19 25 Unknown Basic Metabolic Panel HQC4071 Sodium 138 mmol/L 09/04/19 25 Unknown Basic Metabolic Panel [id number] UREA NITROGEN (XU) 16.5 mg/dL 09/04/19 25 Unknown Basic Metabolic Panel ZOC4225 GFR, ESTIMATE 90832-8 75 mL/min/1.73m 2 09/04/19 25 Unknown CBC with Platelets NAY907 WBC COUNT (AUTOMATED) 4.1 10e3/uL 06/05/19 25 Unknown CBC with Platelets URF222 RBC COUNT 789-8 4.37 10e6/uL 06/05/19 25 Unknown CBC with Platelets PTT102 Hemoglobin 718-7 13.5 g/dL 06/05/19 25 Unknown CBC with Platelets CRR782 Hematocrit 4544-3 42.8 % 06/05/19 25 Unknown CBC with Platelets GHQ196 MCV 787-2 98 fL 06/05/19 25 Unknown CBC with Platelets SPL180 MCH 30.9 pg 06/05/19 25 Unknown CBC with Platelets XUN008 MCHC 31.5 g/dL 06/05/19 25 Unknown CBC with Platelets XAB364 RDW 16.5 % 06/05/19 25 Unknown CBC with Platelets RAG672 Platelet Count 777-3 181 10e3/uL 06/05/19 25 Unknown Hemoglobin A1c LAB90 EST AVERAGE GLUCOSE 151 mg/dL 06/05/19 25 Unknown Hemoglobin A1c LAB90 Hemoglobin A1c 93674-4 6.9 % 06/05/19 25 Unknown Glucose OKL1228 Sodium 140 mmol/L 06/05/19 25 Unknown Glucose SGD8265 POTASSIUM (XU) 2823-3 3.5 mmol/L 06/05/19 25 Unknown Glucose YPT5916 CHLORIDE (XU) 100 mmol/L 25 Unknown Glucose BQJ2240 CO2 (XU) 28 mmol/L 06/05/19 25 Unknown Glucose PKT4180 ANION GAP (XU) 12 mmol/L 06/05/19 25 Unknown Glucose AMB9854 UREA NITROGEN (XU) 13.7 mg/dL 06/05/19 25 Unknown Glucose IAI0731 Creatinine 0.75 mg/dL 06/05/19 25 Unknown Glucose RUT0064 GFR, ESTIMATE 89634-3 76 mL/min/1.73m 2 06/05/19 25 Unknown Glucose DWA6709 Calcium 9.3 mg/dL 06/05/19 25 Unknown Basic Metabolic Panel OMF2101 POTASSIUM (XU) 2823-3 3.5 mmol/L 06/05/19 25 Unknown Basic Metabolic Panel BZO0647 CHLORIDE (XU) 100 mmol/L 06/05/19 25 Unknown Basic Metabolic Panel XFA0821 CO2 (XU) 28 mmol/L 06/05/19 25 Unknown Basic Metabolic Panel OIC9671 Calcium 9.3 mg/dL 06/05/19 25 Unknown Basic Metabolic Panel BJO6124 ANION GAP (XU) 12 mmol/L 06/05/19 25 Unknown Basic Metabolic Panel VVU9327 Creatinine 0.75 mg/dL 06/05/19 25 Unknown Basic Metabolic Panel [id number] GLUCOSE (XU) 2345-7 79 mg/dL 06/05/19 25 Unknown Basic Metabolic Panel EAP2357 Sodium 140 mmol/L 06/05/19 25 Unknown Basic Metabolic Panel UDF4362 UREA NITROGEN (XU) 13.7 mg/dL 06/05/19 25 Unknown Basic Metabolic Panel PIT8212 GFR, ESTIMATE 07139-4 76 mL/min/1.73m 2 06/05/19 25 Unknown Urine Culture 91282 URINE CULTURE 11508-5 SEE RESU LTS BELOW 06/04/19 25 Unknown PHQ9 PHQ9 56286-8 1 06/02/19 25 Unknown UA with Microscopic 54539 COLOR Light Yellow 06/01/19 25 Unknown UA with Microscopic 82765 Appearance Slightly Cloudy 06/01/19 25 Unknown UA with Microscopic 46286 GLUCOSE, URINE Negative mg/dL 06/01/19 25 Unknown UA with Microscopic 51673 BILIRUBIN, URINE Negative 06/01/19 25 Unknown UA with Microscopic 07894 Ketones Urine Negative mg/dL 06/01/19 25 Unknown UA with Microscopic 42912 Specific [place] Urine 1.012 06/01/19 25 Unknown UA with Microscopic 80409 BLOOD, URINE Negative 06/01/19 25 Unknown UA with Microscopic 54803 pH Urine 6.5 06/01/19 25 Unknown UA with Microscopic 79176 Protein urine Negative mg/dL 06/01/19 25 Unknown UA with Microscopic 25611 UROBILINOGEN IRIS Normal mg/dL 06/01/19 25 Unknown UA with Microscopic 33787 Nitrites Positive 06/01/19 25 Unknown UA with Microscopic 57596 LEUK ESTERASE Trace 06/01/19 25 Unknown UA with Microscopic 48338 Bacteria Few /HPF 06/01/19 25 Unknown UA with Microscopic 78606 WBC CLUMPS 6690-2 Present /HPF 06/01/19 25 Unknown UA with Microscopic 97030 Mucus Urine Present /LPF 06/01/19 25 Unknown UA with Microscopic 32394 RBC Urine <1 /HPF 06/01/19 25 Unknown UA with Microscopic 98247 SQUAMOUS EPITHELIAL 2 /HPF 06/01/19 25 Unknown UA with Microscopic 67184 WBC Urine 28346-2 26 /HPF 06/01/19 25 Unknown Urine Culture 41737 URINE CULTURE 70168-6 SEE RESU LTS BELOW 05/23/19 25 Unknown UA with Microscopic 45086 COLOR Yellow 05/22/19 25 Unknown UA with Microscopic 69606 Appearance Slightly Cloudy 05/22/19 25 Unknown UA with Microscopic 62676 GLUCOSE, URINE Negative mg/dL 05/22/19 25 Unknown UA with Microscopic 93257 BILIRUBIN, URINE Negative 05/22/19 25 Unknown UA with Microscopic 44150 Ketones Urine Negative mg/dL 05/22/19 25 Unknown UA with Microscopic 53128 Specific [place] Urine 1.013 05/22/19 25 Unknown UA with Microscopic 62544 BLOOD, URINE Negative 05/22/19 25 Unknown UA with Microscopic 83594 pH Urine 6.5 05/22/19 25 Unknown UA with Microscopic 73627 Protein urine 10 mg/dL 05/22/19 25 Unknown UA with Microscopic 51372 UROBILINOGEN IRIS Normal mg/dL 05/22/19 25 Unknown UA with Microscopic 91231 Nitrites Positive 05/22/19 25 Unknown UA with Microscopic 37384 LEUK ESTERASE Large 05/22/19 25 Unknown UA with Microscopic 39810 Bacteria Few /HPF 05/22/19 25 Unknown UA with Microscopic 40279 Mucus Urine Present /LPF 05/22/19 25 Unknown UA with Microscopic 82279 RBC Urine 0 /HPF 05/22/19 25 Unknown UA with Microscopic 69244 SQUAMOUS EPITHELIAL 3 /HPF 05/22/19 25 Unknown UA with Microscopic 71051 WBC Urine 69440-0 24 /HPF 05/22/19 25 Unknown UA with Microscopic 56879 TRANSITIONAL EPI <1 /HPF 05/22/19 25 Unknown PHQ9 PHQ9 30408-7 2 04/13/19 25 Unknown SLUMS SLUMS 19232-7 13 04/13/19 Unknown Procedures Procedure Codes Date DSCHRG MED/CURRENT MED MERGE CPT-4: 1111F 03/2024 DSCHRG MED/CURRENT MED MERGE CPT-4: 1111F 05/2024 HG A1C LEVEL LT 7.0% CPT-4: 3044F 06/29/2024 PT INELIG NEG SCRN DEPRES SNOMED CT: 428 300400194320 CPT-4: G8510 06/01/2024 PT INELIG NEG SCRN DEPRES SNOMED CT: 428 859813511369 CPT-4: G8510 04/13/2024 Vital Signs Date Vital [...] 1: 144/68 Code: 8480-6 BMI: 35.0 Code: 21438-9 Heart Rate 1: 78 bpm Code: 8867-4 [...] 1: 150/90 Code: 8480-6 BMI: NaN Code: 98328-0 Heart Rate 1: 71 bpm Code: 8867-4 [...] Encounter Performer Location Location Address Codes Date ([id number]) Home Visit - Est Pt, moderate Diagnosis: Unsteady gait[ICD10: R26.81] Diagnosis: Closed fracture of one rib with routine healing, unspecified laterality, subsequent encounter[SNOMED: 78470314] Diagnosis: Pneumonia due to infectious organism, unspecified laterality, unspecified part of lung[SNOMED: 224689854] [facility] [id number] [place] [phone] CPT-4: 19398 09/07/2024 ([id number]) Home Visit - Est Pt, moderate Diagnosis: Primary hypertension[ICD10: I10] Diagnosis: Chronic heart failure with preserved ejection fraction[ICD10: I50.32] Diagnosis: Chronic obstructive pulmonary disease, unspecified COPD type[ICD10: J44.9] Diagnosis: Type 2 diabetes mellitus without complication, unspecified whether reviewer sales insulin use[ICD10: E11.9] Diagnosis: Urinary incontinence, unspecified type[ICD10: R32] [facility] [place] [address] CPT-4: 45193 08/31/2024 ([id number]) Home Visit - Est Pt, moderate Diagnosis: Atrial fibrillation, unspecified type[ICD10: I48.91] Diagnosis: Chronic obstructive pulmonary disease, unspecified COPD type[ICD10: J44.9] Diagnosis: Unsteady gait[ICD10: R26.81] Diagnosis: Vascular dementia, unspecified severity, without behavioral disturbance, psychotic disturbance, mood disturbance, and anxiety[ICD10: F01.50] Diagnosis: Pressure injury of left buttock, stage 2[ICD10: L89.322] [facility] [id number] [place] [phone] CPT-4: 27327 08/10/2024 ([id number]) Home Visit - Est Pt, moderate Diagnosis: Acute cystitis without hematuria[ICD10: N30.00] Diagnosis: Chronic heart failure with preserved ejection fraction[ICD10: I50.32] Diagnosis: Iron deficiency anemia, unspecified iron deficiency anemia type[ICD10: D50.9] Diagnosis: Type 2 diabetes mellitus without complication, unspecified whether halfway insulin use[ICD10: E11.9] Diagnosis: Chronic obstructive pulmonary disease, unspecified COPD type[ICD10: J44.9] [facility] [id number] [place] [phone] CPT-4: 79694 06/29/2024 ([id number]) Medicare Annual Wellness Visit (AWV), Subsequent Diagnosis: Adult general medical exam[SNOMED: 672461918] Diagnosis: ACP (advance care planning)[SNOMED: 464074106] Diagnosis: Frailty[SNOMED: 691175019] Diagnosis: Atherosclerosis of coronary artery of [place] heart without angina pectoris, unspecified vessel or [...] 2 diabetes mellitus without complication, unspecified whether reviewer sales insulin use[ICD10: E11.9] Diagnosis: Unintentional weight loss[ICD10: R63.4] Diagnosis: Unsteady gait[ICD10: R26.81] Diagnosis: Venous insufficiency of both lower extremities[ICD10: I87.2] Diagnosis: Acute cystitis without hematuria[SNOMED: 10436958] Diagnosis: Pressure injury of left buttock, stage 2[ICD10: L89.322] Teresa Antione [address] [address] CPT-4: G0439 06/01/2024 ([id number]) Home Visit - Est Pt, moderate Diagnosis: Adult general medical exam[SNOMED: 704138534] Diagnosis: ACP (advance care planning)[SNOMED: 260638004] Diagnosis: Frailty[SNOMED: 122523519] Diagnosis: Atherosclerosis of coronary artery of [place] heart without angina pectoris, unspecified vessel or [...] mellitus without complication, unspecified whether halfway insulin use[ICD10: E11.9] Diagnosis: Unintentional weight loss[ICD10: R63.4] Diagnosis: Unsteady gait[ICD10: R26.81] Diagnosis: Venous insufficiency of both lower extremities[ICD10: I87.2] Diagnosis: Acute cystitis without hematuria[SNOMED: 13672655] Diagnosis: Pressure injury of left buttock, stage 2[ICD10: L89.322] [facility] [place] [address] CPT-4: 59296 06/01/2024 ([id number]) Home or Residence Visit Est Pt - Moderate Level, 40 mins 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] Diagnosis: Primary hypertension[ICD10: I10] Diagnosis: Pressure injury of left buttock, stage 2[SNOMED: 58914486160184] Diagnosis: Type 2 diabetes mellitus without complication, unspecified whether halfway insulin use[ICD10: E11.9] [facility] [place] [address] CPT-4: 35237 05/04/2024 ([id number]) Home or Residence Visit [employer] - Moderate Level, 60 mins Diagnosis: Statin intolerance[SNOMED: 453155445] Diagnosis: Mixed Alzheimer and vascular dementia[SNOMED: 18236169041319] Diagnosis: Vascular dementia, unspecified severity, without behavioral disturbance, psychotic disturbance, mood disturbance, and anxiety[ICD10: F01.50] Diagnosis: Dementia in other diseases classified elsewhere, unspecified severity, without behavioral disturbance, psychotic disturbance, mood disturbance, and anxiety[ICD10: F02.80] Diagnosis: History of TIA (transient ischemic attack)[SNOMED: 159785440] Diagnosis: Type 2 diabetes mellitus without complication, unspecified whether halfway insulin use[SNOMED: 90268625] Diagnosis: Venous insufficiency of both lower extremities[SNOMED: 886395642] Diagnosis: Hyperlipidemia, unspecified hyperlipidemia type[SNOMED: 81837575] Diagnosis: Unintentional weight loss[SNOMED: 819549721] Diagnosis: Urinary incontinence, unspecified type[SNOMED: 545168666] Diagnosis: Depression due to dementia[SNOMED: 69260429] Diagnosis: Compression fracture of L1 vertebra, sequela[SNOMED: 842013530] Diagnosis: Atherosclerosis of coronary artery of [place] heart without angina pectoris, unspecified vessel or lesion type[SNOMED: 288948485] Diagnosis: Unsteady gait[SNOMED: 67881931] Diagnosis: Iron deficiency anemia, unspecified iron deficiency anemia type[SNOMED: 41676463] Diagnosis: Osteopenia, unspecified location[SNOMED: 618776237] Diagnosis: CAMILO (obstructive sleep apnea)[SNOMED: 50932842] Diagnosis: Chronic obstructive pulmonary disease, unspecified COPD type[SNOMED: 24238876] Diagnosis: History of breast cancer[SNOMED: 033091224] Diagnosis: History of melanoma[SNOMED: 517071735] Diagnosis: Primary hypertension[SNOMED: 55820736] Diagnosis: Chronic heart failure with preserved ejection fraction[SNOMED: 404482909] Diagnosis: Diverticulosis[SNOMED : 460484247] Diagnosis: Atrial fibrillation, unspecified type[SNOMED: 19748561] Diagnosis: Advance care planning[SNOMED: 866701931] Teresa Talbot [address] [address] CPT-4: 79523 04/13/2024 Plan of Care Planned Activity Notes Codes Status Date Patient Education: Patient Medication Summary Completed 09/07/2024 Patient Education: Influenza Complet ed 09/07/2024 Patient Education: Patient Medication Summary Completed 08/31/2024 Patient Education: Influenza Complet ed 08/31/2024 Patient Education: Patient Medication Summary Completed 08/10/2024 Patient Education: Influenza Complet ed 08/10/2024 Appointment: Michela Talbot WPtel: [address] [place], [place] [phone] F/U 08/03/2024 Patient Education: Patient Medication Summary [...] ed 05/04/2024 Appointment: Michela Talbot WPtel: [phone] [employer] 04/13/2024 Patient Education: Patient Medication Summary Completed 04/13/2024 Patient Education: Influenza Complet ed 04/13/2024 Patient Education: Alzheimer''s Disease Completed 04/13/2024 Patient Education: Dementia Complete d 04/13/2024 Instructions Comment Date Alyx resides at [facility] since about 2021. Previously lived independently in [place]. . Has one daughter Maggie who is involved in healthcare. PMH: History of breast cancer and melanoma, mixed dementia, depression, CAD, HLD, history of CVA/TIA, compression fx of L1 vertebrae, urinary incontinence, hearing loss, osteopeniaPrimary contact: Maggie Gallegos (Daughter)Code Status: DNR/SelectLab Schedule: Mar/SepSpecialists: [facility] (Q6M), Cardiology [facility] (MD Echo) 08/06/2024 Pneumonia due to [...] pneumonia and ?UTI. Have requested records from [facility] although have not received them. She has [...] labored breathing. Legs are edematous, wearing tubi anesthesia associate. Nursing reached out to TCU in regards to previous compression wraps, they're connecting with a lymph PT for further instruction. She has been utilizing a wheelchair more than her walker which is likely leading to increased edema status. Encourage walker use, exercise, tubi anesthesia associate, and elevation. Will continue on HCTZ as well. Type 2 diabetes mellitus without complication, unspecified whether halfway insulin use Sugars reviewed; stable in 90-200 [...] to avoid exacerbation. Ordering nebulizer machine today. [id number] visit with patient today regarding the need for nebulizer machine due high risk exacerbation of her COPD and repeat hospitalizations. Observations gathered via [id number] examination and evaluation by PA. Patient is [...] diabetes mellitus wit hout complication, unspecified whether reviewer sales insulin use Sugars reviewed; most readings < [...] 2 diabetes mellitus without complication, unspecified whether reviewer sales insulin use Sugars reviewed; remain in 80s-100s. [...] of care. Atherosclerosis of coronary artery of [place] heart without angina pectoris, unspecified vessel or [...] diabetes mellitus wit hout complication, unspecified whether halfway insulin use Sugars reviewed; remain in 80-90s [...] fibrillation, unspecified type Has seen cardiology in [place] 01/2024. Managed on eliquis 5mg BID. No excessive bruising or bleeding on exam. Atherosclerosis of coronary artery of [place] heart without angina pectoris, unspecified vessel or [...]
[2024-09-21] MEDS: LIDOCAINE 5% PATCH 1 PATCH TRANSDERMA (18:56)
--- OUTSIDE RECORDS SUMMARY | 2024-09-21 18:59 | XMS_ITS | CCD ---
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 Care Lead Python Developer Name Role Phone Teresa Vivas Primary Care Provider Un available Unavailable Chronic Care Management Unavaila ble Summary Purpose DataExchange Insurance Providers Payer name Policy type / Coverage type Covered republican ID Effective Begin Date Effective End Date [place] Medicare Risk [id number] Unknown Un known Family history Mother Diagnosis Age At Onset Stroke Unknown Social History Social History Element Codes Description Effec tive Dates Marital status Unknown 04/13/2024 Marital status Unknown 04/13/2024 Living arrangements Unknown Assisted Living 04/[address]: 3455177 Former smoker 04/[address]: 9074715 Former smoker 04/[address]: 846878451 No Alcohol Consum ption 04/13/[address]: 777266 Currently drin ks alcohol 04/13/2024 Sexually Active? [...] No Inactive Date A ctive SIMVASTATIN RxNorm: 60522 04/13/2024 No Inactive D ate Active Penicillin Unknown 04/13/2024 No Inactive Date A ctive CLOPIDOGREL Unknown 03/23/2024 No Inactive Date Active naproxen RxNorm: 7258 04/13/2024 No Inactive Date Active levofloxacin RxNorm: 46287 03/23/2024 No Inactive Date Active Levemir Unknown 03/23/2024 No Inactive Date Ac tive metformin RxNorm: 009770 04/13/2024 No Inactive Da te Active ESTROGENS Unknown 03/23/2024 No Inactive Date Ac tive Atenolol RxNorm: 1202 04/13/2024 No Inactive Date Active metoprolol succinate RxNorm: 654120 03/23/2024 No Inactive Date Active Januvia RxNorm: 131371 04/13/2024 No Inactive Da te Active furosemide RxNorm: 4603 03/23/2024 No Inactive Balaji e Active azithromycin RxNorm: 52058 04/13/2024 No Inactive Date Active losartan RxNorm: 446030 04/13/2024 No Inactive Da te Active NSAIDS Unknown 03/23/2024 No Inactive Date Ac tive Amlodipine RxNorm: 353408 04/13/2024 No Inactive D ate Active LISINOPRIL RxNorm: 04631 04/13/2024 No Inactive Da te Active PIOGLITAZONE DERIVATIVES Unknown 04/13/2024 No I nactive Date Active Problems Condition Codes Effective Dates Condition St atus Closed fracture of one rib w ith routine healing, unspecified laterality, subsequent encounter SNOMED CT: 12615387 ICD-10: S22.39XD ICD-9: V54.19 09/07/2024 Active Pneumonia due to infectious organism, unspecified laterality, unspecified part of lung SNOMED CT: 998730687 ICD-10: J18.9 ICD-9: 486 09/07/2024 Active Unsteady gait ICD-10: R26.81 ICD-9: 781.2 09/07/2024 Active Chronic heart failure with preserved ejection fraction ICD-10: I50.32 ICD-9: 428.9 08/31/2024 Active Chronic obstructive pulmonar y disease, unspecified COPD type ICD-10: J44.9 ICD-9: 496 08/31/2024 Active Primary hypertension ICD-10: I10 ICD-9: 401.9 08/31/2024 Active Type 2 diabetes mellitus without complication, unspecified whether mcc insulin use ICD-10: E11.9 ICD-9: 250.00 08/31/2024 [...] ACP (advance care planning) SNOMED CT: 3 24137747 ICD-10: Z71.89 ICD-9: V65.49 06/01/2024 Active Adult general medical exam SNOMED CT: 30 6707365 ICD-10: Z00.00 ICD-9: V70.9 06/01/2024 Active Atherosclerosis of coronary artery of [place] heart without angina pectoris, unspecified vessel or lesion type ICD-10: I25.10 ICD-9: 414.01 06/01/2024 Active 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 ICD-9: 311 06/01/[address]: 553303214 ICD-10: R54 ICD-9: 797 06/01/2024 Active Mixed [...] fracture of L1 vertebra, sequela SNOMED CT: 004423886 ICD-10: S32.010S ICD-9: 905.1 04/13/2024 Active Dementia in other diseases classified elsewhere, unspecified severity, without behavioral disturbance, psychotic disturbance, mood disturbance, and anxiety ICD-10: F02.80 04/13/[address]: 104780421 ICD-10: K57.90 ICD-9: 562.10 04/13/2024 Active History of breast cancer SNOMED CT: 4290 41430 ICD-10: Z85.3 ICD-9: V10.3 04/13/2024 Active History of melanoma SNOMED CT: 349524080 ICD-10: Z85.820 ICD-9: V10.82 04/13/2024 Active History of TIA (transient ischemic attack) SNOMED CT: 518131665 ICD-10: Z86.73 ICD-9: V12.54 04/13/2024 Active Hyperlipidemia, unspecified hyperlipidemia type SNOMED CT: 86373682 ICD-10: E78.5 ICD-9: 272.4 04/13/2024 Active Statin intolerance SNOMED CT: 742243237 ICD-10: Z78.9 ICD-9: 995.27 04/13/2024 Active Medications Medication Codes Instructions Start Date Stop Date Status Fill Instructions oxybutynin chloride ER 5 mg tablet,extended release 24 hr RxNorm: 661716 1 Tablet(s) Oral QD 09/16/19 25 026 Active *URGENT REQUEST* PLEASE SEND REFILLS FOR CYCLE FILL. THANK YOU! oxybutynin chloride ER 5 mg tablet,extended release 24 hr RxNorm: 830374 Take 1 Tablet(s) Oral QD 09/08/19 25 025 Inactive oxycodone 5 mg tablet RxNorm: 5887369 Take 1/2 Tablet(s) Oral every 6 hours as needed 09/08/19 25 No Stop Date Active acetaminophen 500 mg tablet RxNorm: 907237 Take 2 Tablet(s) Oral every 6 hours as needed 09/08/19 No Stop Date Active lidocaine 4 % topical patch RxNorm: 5841106 Apply 1 Patch Topical QD on for 12 hours, off for 12 hours 09/08/19 025 Inactive sennosides 8.6 mg-docusate sodium 50 mg tablet RxNorm: 829204 Take 1 Tablet(s) Oral QD as needed 09/08/19 No Stop Date Active doxycycline hyclate 100 mg tablet RxNorm: 3453615 Take 1 Tablet(s) Oral BID 09/08/19 25 025 Inactive Calcium Antacid 200 mg (as calcium carbonate 500 mg) chewable tablet RxNorm: 656367 CHEW & SWALLOW 1 TABLET ORALLY DAILY 09/07/19 025 Inactive *URGENT REQUEST* PLEASE SEND REFILLS FOR CYCLE FILL. THANK YOU! hydrochlorothiazide 50 mg tablet RxNorm: 457655 1 TABLET ORALLY EVERY MORNING (DX: ESSENTIAL HYPERTENSION) 09/07/19 25 026 Active *URGENT REQUEST* PLEASE SEND REFILLS FOR CYCLE FILL. THANK YOU! albuterol sulfate 2.5 mg/3 mL (0.083 %) solution for nebulization RxNorm: 987377 Take 3 Milliliter(s) Inhalation BID and BID PRN for shortness of breath/cough. 09/01/19 25 026 Active furosemide 40 mg tablet RxNorm: 711512 Take 1 Tablet(s) Oral QD 08/20/19 25 025 Inactive furosemide 40 mg tablet RxNorm: 825348 Take 1 Tablet(s) Oral QD 08/20/19 25 025 Inactive Contour Next EZ Meter RxNorm: USE TO JENIFER T BLOOD GLUCOSE DAILY (DX: DIABETES TYPE 2) 08/18/19 25 025 Inactive Contour Next Test Strips RxNorm: Use 1 strip BID 08/17/19 25 026 Active carvedilol 6.25 mg tablet RxNorm: 015810 Take 1 Tablet(s) Oral BID 08/10/19 25 025 Inactive nystatin 100,000 unit/gram topical powder RxNorm: 863556 Gram(s) Topical apply to affected area BID 08/10/19 25 025 Inactive Lanlandon Monteiroostar U-100 Insulin 100 unit/mL (3 mL) subcutaneous pen RxNorm: 037033 Unit(s) Subcutaneous inject 14 units every am 08/07/19 No Stop Date Active hydrochlorothiazide 50 mg tablet RxNorm: 049070 Take 1 Tablet(s) Oral QD 08/07/19 25 025 Inactive Vitron-C 65 mg iron-125 mg tablet,delayed release RxNorm: 9631021 1 Tablet(s) Oral QOD every other day 07/23/19 25 025 Inactive *URGENT REQUEST* PLEASE SEND REFILLS FOR CYCLE FILL. THANK YOU! Oyster Shell Calcium-500 500 mg (as carbonate 1,250 mg) tablet RxNorm: 347800 1 TABLET ORALLY DAILY FOR BONE HEALTH 07/09/19 25 026 Active PLEASE SEND REFILLS.PHARMA CY PLEASE PROFILE FOR FUTURE USE-Medical[facility] or[facility] Co Q-10 200 mg capsule RxNorm: 641640 1 CAPSULE ORALLY DAILY W/ 100MG CAP FOR A TOTAL DOSE OF 300MG (DX: SUPPLEMENT) 07/09/19 Active PLEASE SEND REFILLS.PHARMA CY PLEASE PROFILE FOR FUTURE USE-MedicalRec ords Trelegy Ellipta 200 mcg-62.5 mcg-25 mcg powder for inhalation RxNorm: 7189243 INHALE 1 PUFF INTO THE LUNGS EVERY 24 HOURS (DX: CHRONIC OBSTRUCTIVE PULMONARY DISEASE) 07/09/19 25 026 Active PLEASE SEND REFILLS.PHARMA CY PLEASE PROFILE FOR FUTURE USE-MedicalRec ords fluoxetine 10 mg capsule RxNorm: 399076 1 CAPSULE ORALLY DAILY (DX: DEPRESSION) (DX: ANXIETY) 07/09/19 25 026 Active PLEASE SEND REFILLS.PHARMA CY PLEASE PROFILE FOR FUTURE USE-MedicalRec ords irbesartan 150 mg tablet RxNorm: 451691 1 TABLET ORALLY 2 TIMES DAILY (DX: HYPERTENSION) 07/09/19 25 026 Active PLEASE SEND REFILLS.PHARMA CY PLEASE PROFILE FOR FUTURE USE-MedicalRec ords cholecalciferol (vitamin D3) 25 mcg (1,000 unit) tablet RxNorm: 738073 1 TABLET ORALLY DAILY (DX: VITAMIN D DEFICIENCY) 07/09/19 25 026 Active PLEASE SEND REFILLS.PHARMA CY PLEASE PROFILE FOR FUTURE USE-MedicalRec ords quetiapine 25 mg tablet RxNorm: 010903 1 TABLET ORALLY AT BEDTIME (DX: ANXIETY) 07/09/19 25 026 Active PLEASE SEND REFILLS.PHARMA CY PLEASE PROFILE FOR FUTURE USE-MedicalRec ords coenzyme Q10 100 mg capsule RxNorm: 550233 1 CAPSULE ORALLY DAILY W/ 200MG CAP FOR A TOTAL DOSE OF 300MG (DX: SUPPLEMENT) 07/09/19 25 026 Active PLEASE SEND REFILLS.PHARMA CY PLEASE PROFILE FOR FUTURE USE-MedicalRec ords donepezil 10 mg tablet RxNorm: 181272 1 TABLET ORALLY AT BEDTIME (DX: DEMENTIA) 07/09/19 026 Active PLEASE SEND REFILLS.PHARMA CY PLEASE PROFILE FOR FUTURE USE-Medical[facility] or[facility] alcohol swabs RxNorm: 645459 USE DIRECTED 07/09/19 Active PLEASE SEND REFILLS.PHARMA CY PLEASE PROFILE FOR FUTURE USE-Medical[facility] ords Vitron-C 65 mg iron-125 mg tablet,delayed release RxNorm: 2935084 1 Tablet(s) Oral QOD every other day 07/09/19 25 025 Inactive PLEASE SEND REFILLS.PHARMA CY PLEASE PROFILE FOR FUTURE USE-MedicalRec ords oxybutynin chloride ER 10 mg tablet,extended release 24 hr RxNorm: 508425 1 TAB ORALLY EVERY EVENING FOR BLADDER SPASMS 07/09/19 25 025 Inactive PLEASE SEND REFILLS.PHARMA CY PLEASE PROFILE FOR FUTURE USE-MedicalRec ords cyanocobalamin (vit B-12) 500 mcg tablet RxNorm: 429736 1 TABLET ORALLY DAILY (DX: ANEMIA) 07/09/19 25 025 Inactive PLEASE SEND REFILLS.PHARMA CY PLEASE PROFILE FOR FUTURE USE-MedicalRec ords hydrochlorothiazide 25 mg tablet RxNorm: 196932 1 TABLET ORALLY DAILY (DX: HYPERTENSION) 07/09/19 25 025 Inactive PLEASE SEND REFILLS.PHARMA CY PLEASE PROFILE FOR FUTURE USE-MedicalRec ords Contour Next EZ Meter RxNorm: USE TO JENIFER T BLOOD GLUCOSE DAILY (DX: DIABETES TYPE 2) 05/01 025 Inactive PLEASE SEND REFILLS.PHARMA CY PLEASE PROFILE FOR FUTURE USE-MedicalRec ords Alejandra Protect (zinc oxide) 12 % topical cream RxNorm: 932312 APPLY TO RIGHT BUTTOCK 2 TIMES DAILY;APPLY TO RIGHT BUTTOCK NEEDED WITH SOILING 06/12/19 25 026 Active albuterol sulfate HFA 90 mcg/actuation aerosol inhaler RxNorm: 7474198 Inhale 2 Puff(s) Inhalation Q4H every four hours as needed 06/01/19 25 025 Inactive Alejandra Protect (zinc oxide) 12 % topical cream RxNorm: 061116 cream Topical apply to right buttocks BID and PRN with soiling 06/01/19 25 025 Inactive Lantus Solostar U-100 Insulin 100 unit/mL (3 mL) subcutaneous pen RxNorm: 692235 Unit(s) Subcutaneous prime en with 2 units, then inject 8 units SQ QD at bedtime 05/18/19 025 Inactive potassium chloride ER 10 mEq tablet,extended release RxNorm: 579881 Take 1 Tablet(s) Oral QD 04/12/19 25 No Stop Date Active fluoxetine 10 mg capsule RxNorm: 820207 Take 1 Capsule(s) Oral QD 04/12/19 25 025 Inactive hydrochlorothiazide 25 mg tablet RxNorm: 333928 Take 1 Tablet(s) Oral QD 04/12/19 025 Inactive Oyster Shell Calcium 500 mg (as calcium carbonate 1,250 mg) tablet RxNorm: 257742 Take 1 Tablet(s) Oral QD 04/12/19 025 Inactive Co Q-10 200 mg capsule RxNorm: 290092 Capsule(s) Oral take 1 cap po daily with 100mg tab to =300mg daily 04/12/19 025 Inactive Co Q-10 100 mg capsule RxNorm: 406264 Capsule(s) Oral take 1 cap daily along with 200mg tab to =300mg daily 04/12/19 25 025 Inactive quetiapine 25 mg tablet RxNorm: 185350 Take 1 Tablet(s) Oral QHS every night at bedtime 04/12/19 025 Inactive Vitamin D3 25 mcg (1,000 unit) tablet RxNorm: 103248 Take 1 Tablet(s) Oral QD 04/12/19 025 Inactive acetaminophen 500 mg tablet RxNorm: 883678 Take 2 Tablet(s) Oral TID as needed 04/12/19 25 025 Inactive donepezil 10 mg tablet RxNorm: 246368 Take 1 Tablet(s) Oral QHS every night at bedtime 04/12/19 025 Inactive cyanocobalamin (vit B-12) 500 mcg tablet RxNorm: 083427 Take 1 Tablet(s) Oral QD 04/12/19 025 Inactive oxybutynin chloride ER 10 mg tablet,extended release 24 hr RxNorm: 782078 Take 1 Tablet(s) Oral QPM every evening 04/12/19 025 Inactive irbesartan 150 mg tablet RxNorm: 288427 Take 1 Tablet(s) Oral BID 04/12/19 025 Inactive Trelegy Ellipta 200 mcg-62.5 mcg-25 mcg powder for inhalation RxNorm: 8977637 Inhale 1 Puff(s) Inhalation every 24 hours 04/12/19 025 Inactive Vitron-C 65 mg iron-125 mg tablet,delayed release RxNorm: 3149105 Take 1 Tablet(s) Oral QOD every other day 04/12/19 025 Inactive Eliquis 5 mg tablet RxNorm: 5871697 Take 1 Tablet(s) Oral BID 04/12/19 025 Inactive Lantus Solostar U-100 Insulin 100 unit/mL (3 mL) subcutaneous pen RxNorm: 976046 Unit(s) Subcutaneous prime en with 2 units, [...] data Instructions Comment Date Alyx resides at [facility] since about 2021. Previously lived independently in [place]. . Has one daughter Maggie who is involved in healthcare. PMH: History of breast cancer and melanoma, mixed dementia, depression, CAD, HLD, history of CVA/TIA, compression fx of L1 vertebrae, urinary incontinence, hearing loss, osteopeniaPrimary contact: Maggie Gallegos (Daughter)Code Status: DNR/SelectLab Schedule: Mar/SepSpecialists: [facility] (Q6M), Cardiology [facility] (MD Echo) 08/06/2024
--- OUTSIDE RECORDS SUMMARY | 2024-09-21 18:59 | XMS_ITS | CCD ---
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 Name Role Phone Teresa Vivas Primary Care Provider Un available Unavailable Chronic Care Management Unavaila ble Summary Purpose DataExchange Insurance Providers Payer name Policy type / Coverage type Covered constitution party ID Effective Begin Date Effective End Date [place] Medicare Risk [id number] Unknown Un known Family history Mother Diagnosis Age At Onset Stroke Unknown Social History Social History Element Codes Description Effec tive Dates Marital status Unknown 04/13/2024 Marital status Unknown 04/13/2024 Living arrangements Unknown Assisted Living 04/[address]: 7452147 Former smoker 04/[address]: 1073684 Former smoker 04/[address]: 376361648 No Alcohol Consum ption 04/13/[address]: 823736 Currently drin ks alcohol 04/13/2024 Sexually Active? [...] No Inactive Date A ctive SIMVASTATIN RxNorm: 11225 04/13/2024 No Inactive D ate Active Penicillin Unknown 04/13/2024 No Inactive Date A ctive CLOPIDOGREL Unknown 03/23/2024 No Inactive Date Active naproxen RxNorm: 7258 04/13/2024 No Inactive Date Active levofloxacin RxNorm: 11589 03/23/2024 No Inactive Date Active Levemir Unknown 03/23/2024 No Inactive Date Ac tive metformin RxNorm: 427403 04/13/2024 No Inactive Da te Active ESTROGENS Unknown 03/23/2024 No Inactive Date Ac tive Atenolol RxNorm: 1202 04/13/2024 No Inactive Date Active metoprolol succinate RxNorm: 822174 03/23/2024 No Inactive Date Active Januvia RxNorm: 332774 04/13/2024 No Inactive Da te Active furosemide RxNorm: 4603 03/23/2024 No Inactive Balaji e Active azithromycin RxNorm: 66856 04/13/2024 No Inactive Date Active losartan RxNorm: 675328 04/13/2024 No Inactive Da te Active NSAIDS Unknown 03/23/2024 No Inactive Date Ac tive Amlodipine RxNorm: 854732 04/13/2024 No Inactive D ate Active LISINOPRIL RxNorm: 18490 04/13/2024 No Inactive Da te Active PIOGLITAZONE DERIVATIVES Unknown 04/13/2024 No I nactive Date Active Problems Condition Codes Effective Dates Condition St atus Closed fracture of one rib w ith routine healing, unspecified laterality, subsequent encounter SNOMED CT: 64008062 ICD-10: S22.39XD ICD-9: V54.19 09/07/2024 Active Pneumonia due to infectious organism, unspecified laterality, unspecified part of lung SNOMED CT: 262388181 ICD-10: J18.9 ICD-9: 486 09/07/2024 Active Unsteady [...] ACP (advance care planning) SNOMED CT: 3 47576370 ICD-10: Z71.89 ICD-9: V65.49 06/01/2024 Active Adult general medical exam SNOMED CT: 30 7578455 ICD-10: Z00.00 ICD-9: V70.9 06/01/2024 Active Atherosclerosis of coronary artery of [place] heart without angina pectoris, unspecified vessel or lesion type ICD-10: I25.10 ICD-9: 414.01 06/01/2024 Active 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 ICD-9: 311 06/01/[address]: 158787361 ICD-10: R54 ICD-9: 797 06/01/2024 Active Mixed [...] fracture of L1 vertebra, sequela SNOMED CT: 247107951 ICD-10: S32.010S ICD-9: 905.1 04/13/2024 Active Dementia in other diseases classified elsewhere, unspecified severity, without behavioral disturbance, psychotic disturbance, mood disturbance, and anxiety ICD-10: F02.80 04/13/[address]: 403009849 ICD-10: K57.90 ICD-9: 562.10 04/13/2024 Active History of breast cancer SNOMED CT: 4290 71964 ICD-10: Z85.3 ICD-9: V10.3 04/13/2024 Active History of melanoma SNOMED CT: 741288971 ICD-10: Z85.820 ICD-9: V10.82 04/13/2024 Active History of TIA (transient ischemic attack) SNOMED CT: 945867787 ICD-10: Z86.73 ICD-9: V12.54 04/13/2024 Active Hyperlipidemia, unspecified hyperlipidemia type SNOMED CT: 74649611 ICD-10: E78.5 ICD-9: 272.4 04/13/2024 Active Statin intolerance SNOMED CT: 900487537 ICD-10: Z78.9 ICD-9: 995.27 04/13/2024 Active Medications Medication Codes Instructions Start Date Stop Date Status Fill Instructions oxybutynin chloride ER 5 mg tablet,extended release 24 hr RxNorm: 044333 1 Tablet(s) Oral QD 09/16/19 25 026 Active *URGENT REQUEST* PLEASE SEND REFILLS FOR CYCLE FILL. THANK YOU! oxybutynin chloride ER 5 mg tablet,extended release 24 hr RxNorm: 599631 Take 1 Tablet(s) Oral QD 09/08/19 25 025 Inactive oxycodone 5 mg tablet RxNorm: 9783427 Take 1/2 Tablet(s) Oral every 6 hours as needed 09/08/19 25 No Stop Date Active acetaminophen 500 mg tablet RxNorm: 300565 Take 2 Tablet(s) Oral every 6 hours as needed 09/08/19 No Stop Date Active lidocaine 4 % topical patch RxNorm: 4015719 Apply 1 Patch Topical QD on for 12 hours, off for 12 hours 09/08/19 025 Inactive sennosides 8.6 mg-docusate sodium 50 mg tablet RxNorm: 937644 Take 1 Tablet(s) Oral QD as needed 09/08/19 No Stop Date Active doxycycline hyclate 100 mg tablet RxNorm: 8845841 Take 1 Tablet(s) Oral BID 09/08/19 25 025 Inactive Calcium Antacid 200 mg (as calcium carbonate 500 mg) chewable tablet RxNorm: 500986 CHEW & SWALLOW 1 TABLET ORALLY DAILY 09/07/19 025 Inactive *URGENT REQUEST* PLEASE SEND REFILLS FOR CYCLE FILL. THANK YOU! hydrochlorothiazide 50 mg tablet RxNorm: 228371 1 TABLET ORALLY EVERY MORNING (DX: ESSENTIAL HYPERTENSION) 09/07/19 25 026 Active *URGENT REQUEST* PLEASE SEND REFILLS FOR CYCLE FILL. THANK YOU! albuterol sulfate 2.5 mg/3 mL (0.083 %) solution for nebulization RxNorm: 835785 Take 3 Milliliter(s) Inhalation BID and BID PRN for shortness of breath/cough. 09/01/19 25 026 Active furosemide 40 mg tablet RxNorm: 928371 Take 1 Tablet(s) Oral QD 08/20/19 25 025 Inactive furosemide 40 mg tablet RxNorm: 349494 Take 1 Tablet(s) Oral QD 08/20/19 25 025 Inactive Contour Next EZ Meter RxNorm: USE TO JENIFER T BLOOD GLUCOSE DAILY (DX: DIABETES TYPE 2) 08/18/19 25 025 Inactive Contour Next Test Strips RxNorm: Use 1 strip BID 08/17/19 25 026 Active carvedilol 6.25 mg tablet RxNorm: 630164 Take 1 Tablet(s) Oral BID 08/10/19 25 025 Inactive nystatin 100,000 unit/gram topical powder RxNorm: 535746 Gram(s) Topical apply to affected area BID 08/10/19 25 025 Inactive Lanlandon Monteiroostar U-100 Insulin 100 unit/mL (3 mL) subcutaneous pen RxNorm: 954000 Unit(s) Subcutaneous inject 14 units every am 08/07/19 No Stop Date Active hydrochlorothiazide 50 mg tablet RxNorm: 136931 Take 1 Tablet(s) Oral QD 08/07/19 25 025 Inactive Vitron-C 65 mg iron-125 mg tablet,delayed release RxNorm: 4674306 1 Tablet(s) Oral QOD every other day 07/23/19 25 025 Inactive *URGENT REQUEST* PLEASE SEND REFILLS FOR CYCLE FILL. THANK YOU! Oyster Shell Calcium-500 500 mg (as carbonate 1,250 mg) tablet RxNorm: 044750 1 TABLET ORALLY DAILY FOR BONE HEALTH 07/09/19 25 026 Active PLEASE SEND REFILLS.PHARMA CY PLEASE PROFILE FOR FUTURE USE-[facility] Co Q-10 200 mg capsule RxNorm: 977153 1 CAPSULE ORALLY DAILY W/ 100MG CAP FOR A TOTAL DOSE OF 300MG (DX: SUPPLEMENT) 07/09/19 Active PLEASE SEND REFILLS.PHARMA CY PLEASE PROFILE FOR FUTURE USE-[facility] Trelegy Ellipta 200 mcg-62.5 mcg-25 mcg powder for inhalation RxNorm: 6868766 INHALE 1 PUFF INTO THE LUNGS EVERY 24 HOURS (DX: CHRONIC OBSTRUCTIVE PULMONARY DISEASE) 07/09/19 25 026 Active PLEASE SEND REFILLS.PHARMA CY PLEASE PROFILE FOR FUTURE USE-[facility] fluoxetine 10 mg capsule RxNorm: 291480 1 CAPSULE ORALLY DAILY (DX: DEPRESSION) (DX: ANXIETY) 07/09/19 25 026 Active PLEASE SEND REFILLS.PHARMA CY PLEASE PROFILE FOR FUTURE USE-[facility] irbesartan 150 mg tablet RxNorm: 790203 1 TABLET ORALLY 2 TIMES DAILY (DX: HYPERTENSION) 07/09/19 25 026 Active PLEASE SEND REFILLS.PHARMA CY PLEASE PROFILE FOR FUTURE USE-[facility] cholecalciferol (vitamin D3) 25 mcg (1,000 unit) tablet RxNorm: 769439 1 TABLET ORALLY DAILY (DX: VITAMIN D DEFICIENCY) 07/09/19 25 026 Active PLEASE SEND REFILLS.PHARMA CY PLEASE PROFILE FOR FUTURE USE-[facility] quetiapine 25 mg tablet RxNorm: 801136 1 TABLET ORALLY AT BEDTIME (DX: ANXIETY) 07/09/19 25 026 Active PLEASE SEND REFILLS.PHARMA CY PLEASE PROFILE FOR FUTURE USE-[facility] coenzyme Q10 100 mg capsule RxNorm: 287580 1 CAPSULE ORALLY DAILY W/ 200MG CAP FOR A TOTAL DOSE OF 300MG (DX: SUPPLEMENT) 07/09/19 25 026 Active PLEASE SEND REFILLS.PHARMA CY PLEASE PROFILE FOR FUTURE USE-[facility] donepezil 10 mg tablet RxNorm: 547933 1 TABLET ORALLY AT BEDTIME (DX: DEMENTIA) 07/09/19 026 Active PLEASE SEND REFILLS.PHARMA CY PLEASE PROFILE FOR FUTURE USE-[facility] alcohol swabs RxNorm: 972471 USE DIRECTED 07/09/19 Active PLEASE SEND REFILLS.PHARMA CY PLEASE PROFILE FOR FUTURE USE-[facility] Vitron-C 65 mg iron-125 mg tablet,delayed release RxNorm: 7811947 1 Tablet(s) Oral QOD every other day 07/09/19 25 025 Inactive PLEASE SEND REFILLS.PHARMA CY PLEASE PROFILE FOR FUTURE USE-[facility] oxybutynin chloride ER 10 mg tablet,extended release 24 hr RxNorm: 698562 1 TAB ORALLY EVERY EVENING FOR BLADDER SPASMS 07/09/19 25 025 Inactive PLEASE SEND REFILLS.PHARMA CY PLEASE PROFILE FOR FUTURE USE-[facility] cyanocobalamin (vit B-12) 500 mcg tablet RxNorm: 652904 1 TABLET ORALLY DAILY (DX: ANEMIA) 07/09/19 25 025 Inactive PLEASE SEND REFILLS.PHARMA CY PLEASE PROFILE FOR FUTURE USE-[facility] hydrochlorothiazide 25 mg tablet RxNorm: 355782 1 TABLET ORALLY DAILY (DX: HYPERTENSION) 07/09/19 25 025 Inactive PLEASE SEND REFILLS.PHARMA CY PLEASE PROFILE FOR FUTURE USE-[facility] Contour Next EZ Meter RxNorm: USE TO JENIFER T BLOOD GLUCOSE DAILY (DX: DIABETES TYPE 2) 05/01 025 Inactive PLEASE SEND REFILLS.PHARMA CY PLEASE PROFILE FOR FUTURE USE-[facility] Alejandra Protect (zinc oxide) 12 % topical cream RxNorm: 796531 APPLY TO RIGHT BUTTOCK 2 TIMES DAILY;APPLY TO RIGHT BUTTOCK NEEDED WITH SOILING 06/12/19 25 026 Active albuterol sulfate HFA 90 mcg/actuation aerosol inhaler RxNorm: 6932252 Inhale 2 Puff(s) Inhalation Q4H every four hours as needed 06/01/19 25 025 Inactive Alejandra Protect (zinc oxide) 12 % topical cream RxNorm: 932066 cream Topical apply to right buttocks BID and PRN with soiling 06/01/19 25 025 Inactive Lantus Solostar U-100 Insulin 100 unit/mL (3 mL) subcutaneous pen RxNorm: 728749 Unit(s) Subcutaneous prime en with 2 units, then inject 8 units SQ QD at bedtime 05/18/19 025 Inactive potassium chloride ER 10 mEq tablet,extended release RxNorm: 462757 Take 1 Tablet(s) Oral QD 04/12/19 25 No Stop Date Active fluoxetine 10 mg capsule RxNorm: 499651 Take 1 Capsule(s) Oral QD 04/12/19 25 025 Inactive hydrochlorothiazide 25 mg tablet RxNorm: 121058 Take 1 Tablet(s) Oral QD 04/12/19 025 Inactive Oyster Shell Calcium 500 mg (as calcium carbonate 1,250 mg) tablet RxNorm: 936422 Take 1 Tablet(s) Oral QD 04/12/19 025 Inactive Co Q-10 200 mg capsule RxNorm: 776612 Capsule(s) Oral take 1 cap po daily with 100mg tab to =300mg daily 04/12/19 025 Inactive Co Q-10 100 mg capsule RxNorm: 001522 Capsule(s) Oral take 1 cap daily along with 200mg tab to =300mg daily 04/12/19 25 025 Inactive quetiapine 25 mg tablet RxNorm: 346120 Take 1 Tablet(s) Oral QHS every night at bedtime 04/12/19 025 Inactive Vitamin D3 25 mcg (1,000 unit) tablet RxNorm: 477635 Take 1 Tablet(s) Oral QD 04/12/19 025 Inactive acetaminophen 500 mg tablet RxNorm: 652748 Take 2 Tablet(s) Oral TID as needed 04/12/19 25 025 Inactive donepezil 10 mg tablet RxNorm: 652855 Take 1 Tablet(s) Oral QHS every night at bedtime 04/12/19 025 Inactive cyanocobalamin (vit B-12) 500 mcg tablet RxNorm: 491541 Take 1 Tablet(s) Oral QD 04/12/19 025 Inactive oxybutynin chloride ER 10 mg tablet,extended release 24 hr RxNorm: 125537 Take 1 Tablet(s) Oral QPM every evening 04/12/19 025 Inactive irbesartan 150 mg tablet RxNorm: 948778 Take 1 Tablet(s) Oral BID 04/12/19 025 Inactive Trelegy Ellipta 200 mcg-62.5 mcg-25 mcg powder for inhalation RxNorm: 2758872 Inhale 1 Puff(s) Inhalation every 24 hours 04/12/19 025 Inactive Vitron-C 65 mg iron-125 mg tablet,delayed release RxNorm: 7449644 Take 1 Tablet(s) Oral QOD every other day 04/12/19 025 Inactive Eliquis 5 mg tablet RxNorm: 3765730 Take 1 Tablet(s) Oral BID 04/12/19 025 Inactive Lantus Solostar U-100 Insulin 100 unit/mL (3 mL) subcutaneous pen RxNorm: 673026 Unit(s) Subcutaneous prime en with 2 units, [...] since about 2021. Previously lived independently in [place]. . Has one daughter Maggie who is involved in healthcare. PMH: History of breast cancer and melanoma, mixed dementia, depression, CAD, HLD, history of CVA/TIA, compression fx of L1 vertebrae, urinary incontinence, hearing loss, osteopeniaPrimary contact: Maggie Gallegos (Daughter)Code Status: DNR/SelectLab Schedule: Mar/SepSpecialists: [facility] (Q6M), Cardiology [facility] ([facility]) 08/06/2024
[2024-09-21 20:03] VITALS: BP 163/111; PULSE 86; RESP 16; O2SAT 93
== END 2024-09-21 20:45 | disposition home or self-care (01) ==
PROVIDERS: Emergency Provider Family Medicine; PCP Family Medicine
DX: R07.89 Other chest pain (principal); S22.31XA Fracture of one rib, right side, initial encounter for closed fracture; W19.XXXA Unspecified fall, initial encounter
CPT/HCPCS: 71250; 99283; 99284; A9270

== ENCOUNTER 2024-09-21 20:45 | Outpatient (CLI) | payer MEDICARE, SELFPAY | END 2024-09-21 20:46 | disposition home or self-care (01) | PROVIDERS: PCP Family Medicine; Visit Provider Family Medicine | DX: I25.10 Atherosclerotic heart disease of native coronary artery without angina pectoris (principal); F03.90 Unspecified dementia, unspecified severity, without behavioral disturbance, psychotic disturbance, mood disturbance, and anxiety; R53.1 Weakness | CPT/HCPCS: A0425; A0428 ==

== ENCOUNTER 2024-11-11 10:40 | Outpatient (CLI) | payer MEDICARE, SELFPAY ==
--- NOTE | 2024-11-11 11:00 | CRLHL7_ITS ---
For Patients: As a result of the Century Cures Act, medical imaging exams and procedure reports are released immediately into your electronic medical record. You may view this report before your referring provider. If you have questions, please contact your health care provider. Indication: Pulmonary nodule Technique: Noncontrast CT chest Please note that all CT scans at this facility use dose modulation, iterative reconstruction, and/or weight-based dosing when appropriate to reduce radiation dose to as low as reasonably achievable. Comparison: 09/21/2024 Findings: Diffuse thickening of the adrenal glands is unchanged. Extensive atherosclerotic changes. Fatty atrophy of the pancreas. Cardiomegaly. Heterogeneity of the thyroid gland again noted. Prominent mediastinal lymph nodes are similar. Bilateral shoulder replacement hardware. Old right-sided rib fractures. Chronic wedge compression deformity at L1. Chronic volume loss posterior left lower lobe with associated calcified nodules. Adjacent calcified splenic granulomas. Curvilinear reticular scarring in the right lung base. No pleural effusion or pneumothorax. No CHF. Clearing of ground-glass density in the right upper lobe. Impression: Sequela of granulomatous disease with calcified left lower lobe and calcified splenic granulomas. No suspicious pulmonary nodule. Chronic scarring in the right lower lobe and chronic volume loss in the left lower lobe. Cardiomegaly without acute CHF. Unchanged prominent mediastinal lymph nodes. Please note that all CT scans at this facility use dose modulation, iterative reconstruction, and/or weight-based dosing when appropriate to reduce radiation dose to as low as reasonably achievable. Dictated by Abram Fernandez MD @ 11/11/2024 12:05:05 PM (Electronically Signed)
== END 2024-11-11 10:41 | disposition home or self-care (01) ==
LOC: CT 10:41
PROVIDERS: Visit Provider Physician Assistant
DX: R91.1 Solitary pulmonary nodule (principal); I51.7 Cardiomegaly
CPT/HCPCS: 71250

== ENCOUNTER 2024-12-09 13:51 | Outpatient (CLI) | payer MEDICARE, SELFPAY | END 2024-12-09 13:52 | disposition home or self-care (01) | LOC: NFLDREF 12-12 20:17 | PROVIDERS: Visit Provider Orthopaedic Surgery | DX: L03.114 Cellulitis of left upper limb (principal) | CPT/HCPCS: 86140 ==

== ENCOUNTER 2025-02-18 10:33 | Emergency (ER) | payer BC, SELFPAY ==
[2025-02-18] VITALS (14 sets, daily range): BP systolic 150–171; BP diastolic 87–121; PULSE 66–82; RESP 16–18; TEMP 36.6; O2SAT 89–96
--- NOTE | 2025-02-18 11:04 | ED.GENADULT ---
HPI - General Adult General Time Seen by Provider: 11:04 Date Seen: 02/18/25 Chief complaint: Extremity Pain/Injury, Upper Stated complaint: Neck and hand pain Time Seen by Provider: 02/18/25 11:03 Source: patient and RN notes reviewed Mode of arrival: ambulatory History of Present Illness HPI narrative: This 89-year-old female is brought in with complaint of right wrist pain and neck pain. She is in memory care at [facility] in [place]. Patient has been complaining of wrist pain for 2 days but there has been no noted injury or fall. She did have a fall on 12/20 but that was the last 1 noted. She started complaining of neck pain today telling them she wanted to come to the ER. This prompted the ER visit. No noted fevers or chills. She denies any history of gout or pseudogout. No noted headache, states pain is in the back of the neck area. She really cannot remember any falls or trauma, nothing was witnessed at the long-term but this patient is noted to have memory issues. Related Data Home Medications ?Medication ?Instructions ?Recorded ?Confirmed donepezil 10 mg tablet 10 mg PO DAILY 11/20/23 02/18/25 fluoxetine 10 mg capsule 10 mg PO DAILY 07/11/24 02/18/25 insulin glargine 100 unit/mL (3 10 unit subcut HS 07/11/24 02/18/25 mL) subcutaneous pen (Lantus Solostar U-100 Insulin) irbesartan 150 mg tablet 150 mg PO BID 07/11/24 02/18/25 quetiapine 25 mg tablet 25 mg PO HS 07/11/24 02/18/25 oxybutynin chloride 5 mg 5 mg PO DAILY 09/04/24 02/18/25 tablet,extended release 24 hr hydrochlorothiazide 25 mg tablet 25 mg PO DAILY 12/08/24 02/18/25 pen needle, diabetic, safety 30 #100 ea 12/08/24 01/20/25 gauge x 3/16 (AutoShield Duo Pen Needle) potassium chloride 10 mEq 10 meq PO DAILY 12/08/24 02/18/25 tablet,extended release Previous Rx's ?Medication ?Instructions ?Recorded fluticasone fur. 200 mcg-umeclid 1 inh inhalation Q24H #60 ea 11/14/21 62.5 mcg-vilant 25 mcg inhalat.powder (Trelegy Ellipta) blood sugar diagnostic (Contour #100 ea 01/21/24 Next Test Strips) carvedilol 6.25 mg tablet 6.25 mg PO BID #60 tabs 07/13/24 lidocaine 5 % topical patch 1 patch transdermal Q24H #30 ea 09/06/24 oxycodone 5 mg tablet 2.5 mg (1/2 x 5 mg) PO Q6H PRN #20 09/06/24 tabs prednisone 20 mg tablet 20 mg PO DAILY #5 tabs 02/18/25 Allergies Allergy/AdvReac Type Severity Reaction Status Date / Time amlodipine Allergy Severe Rash Verified 02/18/25 10:50 azithromycin Allergy Severe Limb pain, Verified 02/18/25 10:50 diarrhea furosemide Allergy Severe Hives Verified 02/18/25 10:50 metoprolol Allergy Severe Shortness Verified 02/18/25 10:50 of breath, chest pain, low pulse rate sitagliptin Allergy Severe Lost some Verified 02/18/25 10:50 sight in left eye exenatide Allergy Intermediate Sore Verified 02/18/25 10:50 throat, diarrhea, cough, headache levofloxacin Allergy Intermediate Bruising Verified 02/18/25 10:50 clopidogrel Allergy Mild Edema Verified 02/18/25 10:50 losartan Allergy Unknown Heart Verified 02/18/25 10:50 palpitations, shortness of breath penicillin V Allergy Unknown Verified 02/18/25 10:50 insulin detemir (From Allergy Verified 02/18/25 10:50 Levemir U-100 Insulin) metformin Allergy Verified 02/18/25 10:50 naproxen Allergy Verified 02/18/25 10:50 NSAIDS (Non-Steroidal Allergy Verified 02/18/25 10:50 Anti-Inflamma lisinopril AdvReac Severe Headaches, Verified 02/18/25 10:50 heart palpitations, muscle aches pioglitazone AdvReac Severe Hip and Verified 02/18/25 10:50 arm pain carvedilol AdvReac Mild Vomiting Verified 02/18/25 10:50 simvastatin AdvReac Unknown Fatigued Verified 02/18/25 10:50 Review of Systems Status of ROS: Reports: 6 or more systems reviewed and unremarkable except as noted in History and below [facility] Medical History Osteopenia ?M85.80 - Other specified disorders of bone density and structure, unspecified site (ICD-10) UTI (urinary tract infection) ?N39.0 - Urinary tract infection, site not specified (ICD-10) Bilateral pneumonia ?J18.9 - Pneumonia, unspecified organism (ICD-10) History of compression fracture of spine ?Z87.81 - Personal history of (healed) traumatic fracture (ICD-10) History of pulmonary embolism ?Z86.711 - Personal history of pulmonary embolism (ICD-10) History of stroke ?Z86.73 - Personal history of transient ischemic attack (TIA), and cerebral infarction without residual deficits (ICD-10) Lung mass ?R91.8 - Other nonspecific abnormal finding of lung field (ICD-10) Urinary incontinence ?R32 - Unspecified urinary incontinence (ICD-10) Venous insufficiency of both lower extremities ?I87.2 - Venous insufficiency (chronic) (peripheral) (ICD-10) Type 2 diabetes mellitus (09/26/11) ?E11.9 - Type 2 diabetes mellitus without complications (ICD-10) Hypertension (09/26/11) ?I10 - Essential (primary) hypertension (ICD-10) History of TIA (transient ischemic attack) (04/13/24) ?Z86.73 - Personal history of transient ischemic attack (TIA), and cerebral infarction without residual deficits (ICD-10) History of melanoma (04/13/24) ?Z85.820 - Personal history of malignant melanoma of skin (ICD-10) History of breast cancer (04/13/24) ?Z85.3 - Personal history of malignant neoplasm of breast (ICD-10) Obstructive sleep apnea syndrome ?G47.33 - Obstructive sleep apnea (adult) (pediatric) (ICD-10) Transient ischemic attack (TIA) ?G45.9 - Transient cerebral ischemic attack, unspecified (ICD-10) Statin intolerance (02/13/12) ?Z78.9 - Other specified health status (ICD-10) Squamous cell carcinoma (09/26/11) Fall ?W19.XXXA - Unspecified fall, initial encounter (ICD-10) Living in assisted living ?Z78.9 - Other specified health status (ICD-10) Falls ?R29.6 - Repeated falls (ICD-10) Iron deficiency anemia ?D50.9 - Iron deficiency anemia, unspecified (ICD-10) POLST (Physician Orders for Life-Sustaining Treatment) ?Z78.9 - Other specified health status (ICD-10) Hearing loss ?H91.90 - Unspecified hearing loss, unspecified ear (ICD-10) 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 or stenosis of small artery (ICD-10) Hyperlipidemia ?E78.5 - Hyperlipidemia, unspecified (ICD-10) Depression ?F32.A - Depression, unspecified (ICD-10) Surgical History 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 - Presence of right artificial shoulder joint (ICD-10) 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 (09/26/11) ?Z90.710 - Acquired absence of both cervix and uterus (ICD-10) ?Z90.722 - Acquired absence of ovaries, bilateral (ICD-10) ?Z90.79 - Acquired absence of other genital organ(s) (ICD-10) Status post reverse total replacement of left shoulder ?Z96.612 - Presence of left artificial shoulder joint (ICD-10) 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 Lives in [facility]. Daughter Maggie is medical decision maker. DNR/DNI What is your current living situation?: I presently have a place to live Problems where you live: no known problems Problems where you live details: no In the past 12 months, utilities in danger of being shut off: no In past 12 months, lack of transportation kept you from medical appts, meetings, work, or getting things needed for daily living: no In the past 12 mos, have been you worried that your food would run out before you had money to buy more?: never true In the past 12 mos, the food you bought just didn't last and you didn't have money to buy more?: never true Highest level of school completed/degree received: 8th grade Smoking Status: Former smoker Do you use any of these nicotine containing products: None Second hand tobacco smoke exposure: No How often do you have a drink containing alcohol: monthly or less How often do you have six or more drinks on one occasion: Never AUDIT-C Alcohol total score: 1 Non-prescribed substance use: denies use Caffeine: Yes How often does anyone, including family, friends and others, physically hurt you: never How often does anyone, including family, friends and others, insult or talk down to you: never How often does anyone, including family, friends and others, threaten you with harm: never How often does anyone, including family, friends and others, scream or curse at you: never service: No Exam Const: Vital Signs, click to edit/add: Vital Signs - 24 hr 02/18/25 10:38 02/18/25 10:41 02/18/25 10:47 Temperature 98 F Pulse Rate 82 77 Pulse Rate [Right Pulse Oximeter] 67 Respiratory Rate 18 Blood Pressure Blood Pressure [Le ft Upper Arm] 153/87 H Pulse Oximetry 96 89 94 Oxygen Delivery Me thod Room Air 02/18/25 10:49 02/18/25 11:00 02/18/25 11:51 Temperature Pulse Rate 77 78 73 Pulse Rate [Right Pulse Oximeter] Respiratory Rate 16 Blood Pressure 153/87 H Blood Pressure [Le ft Upper Arm] Pulse Oximetry 94 93 95 Oxygen Delivery Me thod Room Air 02/18/25 12:00 02/18/25 12:15 02/18/25 12:16 Temperature Pulse Rate 66 69 75 Pulse Rate [Right Pulse Oximeter] Respiratory Rate Blood Pressure 171/121 H Blood Pressure [Le ft Upper Arm] Pulse Oximetry 93 94 96 Oxygen Delivery Me thod This 89-year-old female was resting comfortably, awakens easily. She starts complaining of pain in her neck, try to help her read just her pillow. Sclera clear, conjugate gaze, symmetrical atraumatic facial function. She complains of pain over both occipital area as, all the way down her midline cervical spine, all the way down bilateral paraspinous areas. She complains of pain with range of motion. Lungs are clear, no wheeze or crackles, no tachypnea accessory muscle use. CV regular rate and rhythm. Abdomen is soft, nontender, nondistended. Her wrists are both visualize, I do think that she has some generalized mild swelling overlying the wrist on the right side. There is a little bit of pinkish/erythematous change along the dorsal surface of the wrist laterally. Any range of motion of the wrist is painful. She seems to have normal distal sensation in her fingers and can wiggle her fingers. Swelling does not seem to go into the hand, difficult to say if she has any tenderness as when I touch this right wrist at all, seems to be quite painful. Documenting provider has reviewed patient's vital signs: yes Course Course ED Course: This patient is memory issues, there could be trauma that we are not aware of or that was not witnessed. Will do cervical spine CT, x-ray of her wrist. I do think I want labs as well. I am concerned about inflammatory arthropathy of her wrist. Would like to see her uric acid level. She is afebrile all but will make sure that her labs are not showing any concerning significant change that would point us towards infection. With the level of pain in her wrists, think if she had a septic wrist we would be seeing somebody with a much more sick picture. Reevaluation(s) Time of Reevaluation #1: 12:44 Reevaluation #1: Patient was sleeping, she is awakened, awakens easily by voice. She immediately complains of pain, I have to readjust the head of the bed which helps. We reviewed that there is no fracture in her wrist. Discussed that I think she has got inflammatory arthropathy, could be osteoarthritis versus gout. We will try wrist splint for comfort, initiate prednisone. Reviewed that her neck just has arthritis, they can consider physical therapy, work on medication modalities. Will recommend scheduled Tylenol at this point. She can follow up with her primary for further recommendations. There is nothing further for us ir intervene on at this time. Her uric acid is normal but this does not completely rule out gout. She certainly has arthritis and she could have an inflammatory response from underlying osteoarthritis. Think it is reasonable to try prednisone for her wrist. Vital Signs Vital signs: Initial Vital Signs Temperature 98 F 02/18/25 10:38 Temperature Source Temporal Artery Scan 02/18/25 10:38 Pulse Rate 67 02/18/25 10:38 Pulse Rhythm Regular 02/18/25 10:38 Pulse Strength 3+ Normal 02/18/25 10:38 Respiratory Rate 18 02/18/25 10:38 Blood Pressure 153/87 H 02/18/25 10:38 Blood Pressure Mean 109 H 02/18/25 10:38 Blood Pressure Position Semi-Fowlers 02/18/25 10:38 Pulse Oximetry 96 02/18/25 10:38 Oxygen Delivery Method Room Air 02/18/25 10:38 Vital Signs Temperature 98 F 02/18/25 10:38 Pulse Rate 67 02/18/25 10:38 Respiratory Rate 18 02/18/25 10:38 Blood Pressure 153/87 H 02/18/25 10:38 Pulse Oximetry 96 02/18/25 10:38 Oxygen Delivery Method Room Air 02/18/25 10:38 Temperature 98 F 02/18/25 10:38 Pulse Rate 75 02/18/25 12:16 Respiratory Rate 16 02/18/25 10:49 Blood Pressure 171/121 H 02/18/25 12:16 Pulse Oximetry 96 02/18/25 12:16 Oxygen Delivery Method Room Air 02/18/25 10:49 Medications Administered Medications: Discontinued Medications Generic Name Dose Route Start Last Admin Trade Name Freq PRN Reason Stop Dose Admin Acetaminophen 1,000 mg 02/18/25 12:06 02/18/25 12:12 Acetaminophen 500 Mg Tablet PO 02/18/25 12:07 1,000 mg ONCE ONE Administration Medical Decision Making Lab Data Lab results reviewed: Yes I reviewed the patient's lab results Labs: Lab Results 02/18/25 Range/Units 11:25 WBC 4.46 L (4.50-11.00) K/uL RBC 4.65 (4.00-5.20) m/uL Hgb 14.4 (12.0-16.0) gm/dL Hct 43.1 (33.0-51.0) % MCV 93 (80-100) fL MCH 31 (26-34) pg MCHC 33 (32-36) gm/dL RDW Coeff of Brock 14.8 (11.5-15.5) % Plt Count 180 (140-440) K/uL Neut % (Auto) 67.3 (42.0-72.0) % Lymph % (Auto) 17.3 L (20-44) % [place] % (Auto) 12.3 H (0.0-11.0) % Eos % (Auto) 2.0 (0.0-7.0) % Baso % (Auto) 0.4 (0.0-3.0) % Neut # (Auto) 3.00 (1.7-7.0) K/uL Lymph # (Auto) 0.80 L (0.90-2.90) K/uL [place] # (Auto) 0.50 (0.00-0.90) K/UL Eos # (Auto) 0.10 (0.00-0.50) K/uL Baso # (Auto) 0.00 (0.00-0.30) K/uL Abs Immat Gran (auto) 0.00 (0.00-0.30) K/uL Imm/Tot Granulo (auto) 0.7 % Sodium 135 (135-149) mmol/L Potassium 3.6 (3.6-5.1) mmol/L Chloride 94 L (96-114) mmol/L Carbon Dioxide 30 (20-32) mmol/L Anion Gap 11 (7-15) mEq/L BUN 14 (7-30) mg/dL Creatinine 0.6 (0.5-1.5) mg/dL Estimated GFR 86 ml/min Glucose 117 H (60-115) mg/dL Uric Acid 4.5 (2.2-8.4) mg/dL Calcium 9.0 (8.4-10.6) mg/dL C-Reactive Protein 3.5 H (0.5-1.0) mg/dL Imaging Data CT- Other: Attestation: I have reviewed the pertinent imaging results. Radiologist's impression: Patient: JANAY PADGETT Facility:?[facility] Patient ID:?[id number] Site Patient ID:?[id number]. Site :?[id number] Study:?CT-Spine Cervical W/O-02/18/2025 11:52:47 AM Ordering Physician:Karlos Galicia Final Report: INDICATION: Neck pain TECHNIQUE: CT cervical spine without contrast. COMPARISON: CT cervical spine without contrast 09/04/2024 FINDINGS: Vertebrae: There is trace anterolisthesis of C3 on C4 and C7 on T1. There are no fractures or suspicious bony lesions. Discs and facet joints: There are diffuse degenerative changes in the disc spaces and facet joints. Extraspinal findings: Atherosclerotic calcifications. IMPRESSION: 1. No acute abnormality of the cervical spine. 2. Multilevel degenerative spondylosis. Please note that all CT scans at this facility use dose modulation, iterative reconstruction, and/or weight-based dosing when appropriate to reduce radiation dose to as low as reasonably achievable. Dictated by Yumiko Ball MD @ 02/18/2025 12:10:47 PM (Electronic Signature) XR right wrist: Attestation: I have reviewed the pertinent imaging results. My impression: Did visualize x-ray images of wrist, see degenerative changes but do not appreciate acute fracture. Will await Radiology over-read. Radiologist's impression: Patient: JANAY PADGETT Facility:?[facility] Patient ID:?[id number] Site Patient ID:?[id number]. Site :?[id number] Study:?XRay-Extremity Right WRIST-02/18/2025 11:56:39 AM Ordering Physician:?Tremayne Galicia Final Report: INDICATION: pain, no known trauma. (Sic) COMPARISON: 09/04/2024 TECHNIQUE: Three views right wrist. FINDINGS: Diffuse osteopenia. No fracture or dislocation. Chronic unchanged osteoarthrosis of the 1st carpometacarpal and triscaphe joints. Nonspecific dorsal periarticular soft tissue swelling is noted on the lateral view. Incidental note is otherwise made of diffuse arterial calcifications. IMPRESSION: Nonspecific dorsal periarticular soft tissue swelling is noted on the lateral view. Incidental findings described in the body of the report. Dictated by Isreal Mendoza MD @ 02/18/2025 12:10:17 PM (Electronic Signature) Discharge Plan Discharge Clinical Impression: Degenerative joint disease of cervical spine Qualifiers: Spinal osteoarthritis complication: unspecified spinal osteoarthritis Qualified Code(s): M47.812 - Spondylosis without myelopathy or radiculopathy, cervical region Acute wrist pain Qualifiers: Laterality: right Qualified Code(s): M25.531 - Pain in right wrist Patient Disposition: Home w/ Parent or Adult Condition: Stable Instructions: Osteoarthritis (ED), Chronic Neck Pain (DC) Additional Instructions: Cervical spine CT shows degenerative changes but no acute fracture. Recommend scheduling Tylenol 1000 mg 3 times a day for pain management. Physical therapy could be considered, copy of CT report sent. Work with primary care provider for further pain management if needed. Believe that the wrist pain is coming from an inflammatory process, could be underlying osteoarthritis with inflammatory arthropathy verses gout. Either way, will try prednisone 20 mg daily for 5 days and see if this helps. Have provided a splint to be used as needed for comfort. If the splint is more problematic, can take this off. Have someone recheck her in 2-3 days or as soon as possible. If she develops fevers, worsening symptoms or have further concerns with her, please have her seek re-evaluation. Activity Level: Activity as Tolerated Prescriptions: New prednisone 20 mg tablet 20 mg PO DAILY Qty: 5 0RF No Action Trelegy Ellipta 200-62.5-25 mcg blister with device 1 inh inhalation Q24H Qty: 60 2RF Patient Comments: PATIENT WILL NEED FROM HOME donepezil 10 mg tablet 10 mg PO DAILY potassium chloride 10 mEq tablet extended release 10 meq PO DAILY hydrochlorothiazide 25 mg tablet 25 mg PO DAILY (DME) AutoShield Duo Pen Needle 30 gauge x 3/16 needle See Rx Instructions .ROUTE .MEDSUPPLY Qty: 100 Patient Comments: [NO ORIGINAL SIG] Rx Instructions: As directed irbesartan 150 mg tablet 150 mg PO BID quetiapine 25 mg tablet 25 mg PO HS fluoxetine 10 mg capsule 10 mg PO DAILY insulin glargine [Lantus Solostar U-100 Insulin] 100 unit/mL (3 mL) insulin pen 10 unit subcut HS Rx Instructions: 10 units once nightly carvedilol 6.25 mg Tablet 6.25 mg PO BID Qty: 60 0RF oxybutynin chloride 5 mg tablet extended release 24hr 5 mg PO DAILY oxycodone 5 mg Tablet 2.5 mg PO Q6H PRNQty: 20 0RF lidocaine 5 % Adhesive Patch,Medicated 1 patch transdermal Q24H Qty: 30 0RF (DME) Contour Next Test Strips Strip See Rx Instructions .Route Qty: 100 3RF Rx Instructions: Use to test blood glucose daily Follow Up/Referrals: Provider,Not a Local [Primary Care Provider, Family Practice] Stand Alone Forms: Tier [employer]alth Info Instructions
--- NOTE | 2025-02-18 11:12 | CRLHL7_ITS ---
For Patients: As a result of the Century Cures Act, medical imaging exams and procedure reports are released immediately into your electronic medical record. You may view this report before your referring provider. If you have questions, please contact your health care provider. INDICATION: pain, no known trauma. (Sic) COMPARISON: 09/04/2024 TECHNIQUE: Three views right wrist. FINDINGS: Diffuse osteopenia. No fracture or dislocation. Chronic unchanged osteoarthrosis of the 1st carpometacarpal and triscaphe joints. Nonspecific dorsal periarticular soft tissue swelling is noted on the lateral view. Incidental note is otherwise made of diffuse arterial calcifications. IMPRESSION: Nonspecific dorsal periarticular soft tissue swelling is noted on the lateral view. Incidental findings described in the body of the report. Dictated by Isreal Mendoza MD @ 02/18/2025 12:10:17 PM (Electronically Signed)
--- NOTE | 2025-02-18 11:13 | CRLHL7_ITS ---
For Patients: As a result of the Century Cures Act, medical imaging exams and procedure reports are released immediately into your electronic medical record. You may view this report before your referring provider. If you have questions, please contact your health care provider. INDICATION: Neck pain TECHNIQUE: CT cervical spine without contrast. COMPARISON: CT cervical spine without contrast 09/04/2024 FINDINGS: Vertebrae: There is trace anterolisthesis of C3 on C4 and C7 on T1. There are no fractures or suspicious bony lesions. Discs and facet joints: There are diffuse degenerative changes in the disc spaces and facet joints. Extraspinal findings: Atherosclerotic calcifications. IMPRESSION: 1. No acute abnormality of the cervical spine. 2. Multilevel degenerative spondylosis. Please note that all CT scans at this facility use dose modulation, iterative reconstruction, and/or weight-based dosing when appropriate to reduce radiation dose to as low as reasonably achievable. Dictated by Yumiko Ball MD @ 02/18/2025 12:10:47 PM (Electronically Signed)
[2025-02-18 11:41] LABS: Hematocrit* 43.1 % (33.0-51.0); Hemoglobin* 14.4 gm/dL (12.0-16.0); Immature Granulocytes Pct Auto 0.7 %; Mean Corpuscular HGB Conc 33 gm/dL (32-36); Mean Corpuscular Hemoglobin 31 pg (26-34); Mean Corpuscular Volume 93 fL (80-100); RDW Coefficient of Variation % 14.8 % (11.5-15.5); Red Blood Count* 4.65 m/uL (4.00-5.20); White Blood Count* 4.46 K/uL (4.50-11.00)
[2025-02-18 11:54] LABS: Immature Granulocytes Abs Auto 0.00 K/uL (0.00-0.30); Lymphocytes Absolute Auto 0.80 K/uL (0.90-2.90); Slide Review Reflex No
[2025-02-18 11:55] LABS: Chloride* 94 mmol/L (96-114); Sodium* 135 mmol/L (135-149)
[2025-02-18 11:56] LABS: Potassium* 3.6 mmol/L (3.6-5.1)
[2025-02-18 11:58] LABS: Blood Urea Nitrogen* 14 mg/dL (7-30); Creatinine* 0.6 mg/dL (0.5-1.5); Estimated Glomerular Filt Rate 86 ml/min
[2025-02-18 11:59] LABS: Anion Gap 11 mEq/L (7-15); Calcium* 9.0 mg/dL (8.4-10.6); Carbon Dioxide* 30 mmol/L (20-32); Glucose* 117 mg/dL (60-115)
[2025-02-18] MEDS: ACETAMINOPHEN 500 MG TABLET 1000 MG PO (12:12)
== END 2025-02-18 13:56 | disposition home or self-care (01) ==
PROVIDERS: Emergency Provider Family Medicine
DX: M47.812 Spondylosis without myelopathy or radiculopathy, cervical region (principal); M25.531 Pain in right wrist
CPT/HCPCS: 36415; 72125; 73110; 80048; 84550; 85025; 86140; 99284; 99285; A9270

== ENCOUNTER 2025-02-18 13:47 | Outpatient (CLI) | payer BC, SELFPAY | END 2025-02-18 13:48 | disposition home or self-care (01) | LOC: AMB 02-21 17:07 | PROVIDERS: Visit Provider Family Medicine | DX: M47.812 Spondylosis without myelopathy or radiculopathy, cervical region (principal); M25.531 Pain in right wrist; F03.90 Unspecified dementia, unspecified severity, without behavioral disturbance, psychotic disturbance, mood disturbance, and anxiety | CPT/HCPCS: A0425; A0428 ==